=== PATIENT | female | born 1960 | race Two or more races ===

== ENCOUNTER 2016-06-05 | Inpatient (IN) | END 2017-06-04 23:59 | disposition still patient (30) | DRG 133 | DX: J96.10 Chronic respiratory failure, unspecified whether with hypoxia or hypercapnia (principal); G93.40 Encephalopathy, unspecified; G93.1 Anoxic brain damage, not elsewhere classified; I69.959 Hemiplegia and hemiparesis following unspecified cerebrovascular disease affecting unspecified side; Z93.0 Tracheostomy status; I69.922 Dysarthria following unspecified cerebrovascular disease; I69.991 Dysphagia following unspecified cerebrovascular disease; Z93.1 Gastrostomy status; K21.9 Gastro-esophageal reflux disease without esophagitis; K27.9 Peptic ulcer, site unspecified, unspecified as acute or chronic, without hemorrhage or perforation; Z90.89 Acquired absence of other organs; G47.00 Insomnia, unspecified; E78.5 Hyperlipidemia, unspecified ==

== ENCOUNTER → 2016-12-13 | Outpatient (CLI) | payer MEDICARE, OTHER ==
[~2016-12-13] MED LIST: ACET160O10 GT; BACL10TA GT; FAMO20TA8 GT; ISON300T4 GT; MENT113P3 TP; POLY15DR57 EACHEYE; PYRI50CA GT
== END | disposition home or self-care (01) ==
LOC: XRAY 09:56
PROVIDERS: ATTEND Internal Medicine Gastroenterology
DX: N20.0 Calculus of kidney (principal); J98.11 Atelectasis; R19.03 Right lower quadrant abdominal swelling, mass and lump; N28.82 Megaloureter; J98.6 Disorders of diaphragm; Z90.49 Acquired absence of other specified parts of digestive tract; Z93.1 Gastrostomy status
CPT/HCPCS: 74150

== ENCOUNTER 2017-06-05 | Inpatient (IN) | END 2018-06-04 11:59 | disposition other institution (70) | DRG 133 | DX: J96.11 Chronic respiratory failure with hypoxia (principal); G93.40 Encephalopathy, unspecified; A41.9 Sepsis, unspecified organism; G93.1 Anoxic brain damage, not elsewhere classified; J18.9 Pneumonia, unspecified organism; L89.154 Pressure ulcer of sacral region, stage 4; B37.0 Candidal stomatitis; D68.59 Other primary thrombophilia; Z93.0 Tracheostomy status; D69.6 Thrombocytopenia, unspecified; I69.959 Hemiplegia and hemiparesis following unspecified cerebrovascular disease affecting unspecified side; I69.922 Dysarthria following unspecified cerebrovascular disease; I69.991 Dysphagia following unspecified cerebrovascular disease; Z93.1 Gastrostomy status; K21.9 Gastro-esophageal reflux disease without esophagitis; K27.9 Peptic ulcer, site unspecified, unspecified as acute or chronic, without hemorrhage or perforation; Z90.89 Acquired absence of other organs; G47.00 Insomnia, unspecified; E78.5 Hyperlipidemia, unspecified; B96.20 Unspecified Escherichia coli [E. coli] as the cause of diseases classified elsewhere; E88.09 Other disorders of plasma-protein metabolism, not elsewhere classified; F09 Unspecified mental disorder due to known physiological condition; F32.9 Major depressive disorder, single episode, unspecified; B37.49 Other urogenital candidiasis; L03.311 Cellulitis of abdominal wall; N39.0 Urinary tract infection, site not specified; Z74.01 Bed confinement status; M46.28 Osteomyelitis of vertebra, sacral and sacrococcygeal region; Z79.2 Long term (current) use of antibiotics; Z86.14 Personal history of Methicillin resistant Staphylococcus aureus infection; Z90.49 Acquired absence of other specified parts of digestive tract; Z91.19 Patient's noncompliance with other medical treatment and regimen ==

== ENCOUNTER 2018-06-05 | Inpatient (IN) | END 2019-06-04 23:59 | disposition still patient (30) | DRG 981 | DX: J96.11 Chronic respiratory failure with hypoxia (principal); E43 Unspecified severe protein-calorie malnutrition; G82.50 Quadriplegia, unspecified; L89.154 Pressure ulcer of sacral region, stage 4; G93.40 Encephalopathy, unspecified; G93.1 Anoxic brain damage, not elsewhere classified; D68.59 Other primary thrombophilia; I69.959 Hemiplegia and hemiparesis following unspecified cerebrovascular disease affecting unspecified side; M46.28 Osteomyelitis of vertebra, sacral and sacrococcygeal region; E87.0 Hyperosmolality and hypernatremia; J98.11 Atelectasis; N13.6 Pyonephrosis; Z99.11 Dependence on respirator [ventilator] status; N39.0 Urinary tract infection, site not specified; Z16.19 Resistance to other specified beta lactam antibiotics; Z93.0 Tracheostomy status; D69.6 Thrombocytopenia, unspecified; E88.09 Other disorders of plasma-protein metabolism, not elsewhere classified; I69.922 Dysarthria following unspecified cerebrovascular disease; I69.991 Dysphagia following unspecified cerebrovascular disease; Z93.1 Gastrostomy status; K21.9 Gastro-esophageal reflux disease without esophagitis; K27.9 Peptic ulcer, site unspecified, unspecified as acute or chronic, without hemorrhage or perforation; Z90.89 Acquired absence of other organs; G47.00 Insomnia, unspecified; E78.5 Hyperlipidemia, unspecified; F09 Unspecified mental disorder due to known physiological condition; F32.9 Major depressive disorder, single episode, unspecified; Z74.01 Bed confinement status; Z79.2 Long term (current) use of antibiotics; Z86.14 Personal history of Methicillin resistant Staphylococcus aureus infection; Z90.49 Acquired absence of other specified parts of digestive tract; Z91.19 Patient's noncompliance with other medical treatment and regimen; K76.0 Fatty (change of) liver, not elsewhere classified; Z87.440 Personal history of urinary (tract) infections; Z79.899 Other long term (current) drug therapy; B96.89 Other specified bacterial agents as the cause of diseases classified elsewhere ==

== ENCOUNTER 2019-11-12 10:40 | Outpatient (CLI) | payer MEDICARE, OTHER ==
[~2019-11-12 10:40] MED LIST changes: +ISON300T19 GT; -ISON300T4 GT; +POLY15DR31 EACHEYE; -POLY15DR57 EACHEYE
== END 2019-11-12 23:59 | disposition other institution (70) ==
LOC: CT 10:40
PROVIDERS: ATTEND Internal Medicine Pulmonary Disease
DX: N39.0 Urinary tract infection, site not specified (principal); N95.2 Postmenopausal atrophic vaginitis; J98.11 Atelectasis; N20.0 Calculus of kidney; N26.1 Atrophy of kidney (terminal); I70.0 Atherosclerosis of aorta; D25.9 Leiomyoma of uterus, unspecified; M47.816 Spondylosis without myelopathy or radiculopathy, lumbar region; Z93.1 Gastrostomy status

== ENCOUNTER 2020-01-25 06:15 | Day surgery (SDC) | payer MEDICARE, OTHER ==
[2020-01-25] MEDS ORDERED: SEVOFLURANE 250 ML BOTTLE IH ONE (06:16)
[2020-01-25] MEDS ORDERED: CEFAZOLIN 1 G VIAL MC ONE (06:16)
[2020-01-25] MEDS ORDERED: LIDOCAINE-MPF 2% 5 ML VIAL MC ONE (06:16)
[2020-01-25] MEDS ORDERED: PROPOFOL 200 MG/20 ML BOTTLE IV ONE (06:16)
== END 2020-01-25 11:00 ==
LOC: DS 06:15
PROVIDERS: ATTEND Internal Medicine Gastroenterology
DX: R13.10 Dysphagia, unspecified (principal); K29.70 Gastritis, unspecified, without bleeding; F32.9 Major depressive disorder, single episode, unspecified; Z87.440 Personal history of urinary (tract) infections; Z79.899 Other long term (current) drug therapy; Z88.1 Allergy status to other antibiotic agents; Z88.8 Allergy status to other drugs, medicaments and biological substances; Z98.890 Other specified postprocedural states
CPT/HCPCS: 43246; J0690; J3490; 43761; A4217

== ENCOUNTER → 2020-06-04 23:59 | Inpatient (IN) | payer MEDICARE, OTHER ==
[2019-06-06 10:13] VITALS: BP 116/50
[2019-06-06] MEDS: JEVITY 1.2 1000 ML LIQUID GT PRN (14:19)
[2019-06-06] MEDS: PIPERACILLIN SODIUM/TAZOBACTAM 3.375 G in IV DEXTROSE 5% 50 ML IV SCH ×2 (16:49→23:46)
[2019-06-06] MEDS: BACLOFEN 10 MG TABLET GT SCH (17:53)
[2019-06-06] MEDS: ARGININE/GLUTAMINE/CALCIUM BMB 1 EACH POWD.PACK GT SCH (17:53)
[2019-06-06] MEDS: VANCOMYCIN IV 750 MG in IV DEXTROSE 5% 250 ML IV SCH (18:33)
[2019-06-06 19:58] VITALS: BP 114/54
[2019-06-06] MEDS: HYDROGEN PEROXIDE 3% 118 ML BOTTLE TP SCH (20:42)
[2019-06-06] MEDS: SIMVASTATIN 10 MG TABLET GT SCH (21:00)
[2019-06-06] MEDS: MULTIVIT, IRON, MIN NO. 8, FA TABLET GT SCH (21:00)
[2019-06-06] MEDS: COD LIVER OIL/ZINC OXIDE OINT 113 GM TUBE TP SCH (21:00)
[2019-06-06] MEDS: ACIDOPHILUS/BULGARICUS CHEW TAB GT SCH (21:00)
[2019-06-06] MEDS: ASCORBIC ACID 500 MG TABLET GT SCH (21:00)
[2019-06-06] MEDS: TEMAZEPAM 7.5 MG CAPSULE GT PRN (22:23)
[2019-06-06] MEDS: PROTEIN SUPPLEMENT (PROSTAT) 30 ML LIQUID GT SCH (22:23)
[2019-06-07] MEDS: BACLOFEN 10 MG TABLET GT SCH ×5 (00:45→23:08)
[2019-06-07] MEDS: PROTEIN SUPPLEMENT (PROSTAT) 30 ML LIQUID GT SCH ×3 (05:54→21:20)
[2019-06-07] MEDS: OMEPRAZOLE 20 MG CAPSULE.DR GT SCH (05:54)
[2019-06-07] MEDS: ARGININE/GLUTAMINE/CALCIUM BMB 1 EACH POWD.PACK GT SCH ×2 (05:54→17:19)
[2019-06-07] MEDS: VANCOMYCIN IV 750 MG in IV DEXTROSE 5% 250 ML IV SCH ×2 (06:08→17:43)
[2019-06-07] MEDS: PIPERACILLIN SODIUM/TAZOBACTAM 3.375 G in IV DEXTROSE 5% 50 ML IV SCH ×2 (07:42→16:25)
[2019-06-07] MEDS: ACETAMINOPHEN 650 MG/20.3 ML LIQUID UDC GT SCH (08:21)
[2019-06-07] MEDS: ACIDOPHILUS/BULGARICUS CHEW TAB GT SCH ×2 (08:21→21:20)
[2019-06-07] MEDS: SERTRALINE 25 MG GT SCH (08:22)
[2019-06-07] MEDS: COD LIVER OIL/ZINC OXIDE OINT 113 GM TUBE TP SCH ×2 (08:22→21:20)
[2019-06-07] MEDS: THERAHONEY GEL 1.5 OZ TUBE TOP SCH (08:22)
[2019-06-07] MEDS: HYDROGEN PEROXIDE 3% 118 ML BOTTLE TP SCH ×2 (09:56→21:35)
[2019-06-07 11:15] VITALS: BP 102/51
[2019-06-07] MEDS: JEVITY 1.2 1000 ML LIQUID GT PRN (16:17)
--- NOTE | 2019-06-07 18:11 | NUR ---
ON IV ATB THERAPY,NO ADVERSE REACTION NOTED.
[2019-06-07 18:19] VITALS: BP 102/51
[2019-06-07 20:14] VITALS: BP 108/45
[2019-06-07] MEDS: MULTIVIT, IRON, MIN NO. 8, FA TABLET GT SCH (21:20)
[2019-06-07] MEDS: TEMAZEPAM 7.5 MG CAPSULE GT PRN (21:20)
[2019-06-07] MEDS: ASCORBIC ACID 500 MG TABLET GT SCH (21:20)
[2019-06-07] MEDS: SIMVASTATIN 10 MG TABLET GT SCH (21:20)
[2019-06-08] MEDS: PIPERACILLIN SODIUM/TAZOBACTAM 3.375 G in IV DEXTROSE 5% 50 ML IV SCH ×3 (00:02→16:45)
--- NOTE | 2019-06-08 05:17 | NUR ---
continue on vancomycin iv and zosyn iv for fever, no adverse reaction noted, afebrile, no respiratory distress noted.
[2019-06-08] MEDS: BACLOFEN 10 MG TABLET GT SCH ×4 (05:35→23:27)
[2019-06-08] MEDS: PROTEIN SUPPLEMENT (PROSTAT) 30 ML LIQUID GT SCH ×3 (05:35→21:10)
[2019-06-08] MEDS: OMEPRAZOLE 20 MG CAPSULE.DR GT SCH (05:35)
[2019-06-08] MEDS: ARGININE/GLUTAMINE/CALCIUM BMB 1 EACH POWD.PACK GT SCH ×2 (05:35→17:48)
[2019-06-08] MEDS: VANCOMYCIN IV 750 MG in IV DEXTROSE 5% 250 ML IV SCH ×2 (05:47→17:02)
[2019-06-08] MEDS: ACETAMINOPHEN 650 MG/20.3 ML LIQUID UDC GT SCH (09:00)
[2019-06-08] MEDS: ACIDOPHILUS/BULGARICUS CHEW TAB GT SCH ×2 (09:00→21:10)
[2019-06-08] MEDS: SERTRALINE 25 MG GT SCH (09:00)
[2019-06-08] MEDS: THERAHONEY GEL 1.5 OZ TUBE TOP SCH (10:00)
[2019-06-08] MEDS: COD LIVER OIL/ZINC OXIDE OINT 113 GM TUBE TP SCH ×2 (10:00→21:10)
[2019-06-08] MEDS: HYDROGEN PEROXIDE 3% 118 ML BOTTLE TP SCH ×2 (10:20→21:57)
[2019-06-08 11:08] VITALS: BP 101/51
[2019-06-08] MEDS: JEVITY 1.2 1000 ML LIQUID GT PRN (16:30)
--- NOTE | 2019-06-08 19:47 | NUR ---
Continue on ivatb vancomycin and Zosyn,no adverse reaction noted,iv site on the r hand intact,no s/s of infiltration noted,Ivatb will be given to complete 5 days per Judeen MARKETING DATA SPECIALIST.
[2019-06-08 20:15] VITALS: BP 117/65
[2019-06-08] MEDS: SIMVASTATIN 10 MG TABLET GT SCH (21:10)
[2019-06-08] MEDS: ASCORBIC ACID 500 MG TABLET GT SCH (21:10)
[2019-06-08] MEDS: MULTIVIT, IRON, MIN NO. 8, FA TABLET GT SCH (21:10)
--- NOTE | 2019-06-08 22:35 | NUR ---
mark jacobo n.p. was in, seen pt, no new orders.
[2019-06-09] MEDS: BACLOFEN 10 MG TABLET GT SCH ×4 (05:45→23:17)
[2019-06-09] MEDS: ARGININE/GLUTAMINE/CALCIUM BMB 1 EACH POWD.PACK GT SCH ×2 (05:45→17:16)
[2019-06-09] MEDS: PROTEIN SUPPLEMENT (PROSTAT) 30 ML LIQUID GT SCH ×3 (05:45→21:15)
[2019-06-09] MEDS: OMEPRAZOLE 20 MG CAPSULE.DR GT SCH (05:45)
[2019-06-09] MEDS: HYDROGEN PEROXIDE 3% 118 ML BOTTLE TP SCH ×2 (07:50→21:15)
[2019-06-09 08:02] VITALS: BP 114/50
[2019-06-09] MEDS: THERAHONEY GEL 1.5 OZ TUBE TOP SCH (09:11)
[2019-06-09] MEDS: COD LIVER OIL/ZINC OXIDE OINT 113 GM TUBE TP SCH ×2 (09:11→21:15)
[2019-06-09] MEDS: SERTRALINE 25 MG GT SCH (09:11)
[2019-06-09] MEDS: ACIDOPHILUS/BULGARICUS CHEW TAB GT SCH ×2 (09:11→21:15)
[2019-06-09] MEDS: ACETAMINOPHEN 650 MG/20.3 ML LIQUID UDC GT SCH (09:11)
--- NOTE | 2019-06-09 12:18 | NUR ---
Seen and examined by DR Barahona with no new orders noted.
[2019-06-09 20:25] VITALS: BP 107/55
[2019-06-09] MEDS: SIMVASTATIN 10 MG TABLET GT SCH (21:15)
[2019-06-09] MEDS: ASCORBIC ACID 500 MG TABLET GT SCH (21:15)
[2019-06-09] MEDS: MULTIVIT, IRON, MIN NO. 8, FA TABLET GT SCH (21:15)
--- NOTE | 2019-06-09 21:38 | NUR ---
S/p IV Vancomycin and Zosyn IV for UTI, no adverse reactions noted, afebrile, fluids given as ordered, voiding freely to yellow urine output, good sukumar care rendered, kept clean and comfortable.
[2019-06-10] MEDS: BACLOFEN 10 MG TABLET GT SCH ×3 (05:39→17:49)
[2019-06-10] MEDS: ARGININE/GLUTAMINE/CALCIUM BMB 1 EACH POWD.PACK GT SCH ×2 (05:39→17:49)
[2019-06-10] MEDS: PROTEIN SUPPLEMENT (PROSTAT) 30 ML LIQUID GT SCH ×3 (05:39→21:29)
[2019-06-10] MEDS: OMEPRAZOLE 20 MG CAPSULE.DR GT SCH (05:39)
[2019-06-10 08:00] VITALS: BP 106/66
[2019-06-10] MEDS: ACIDOPHILUS/BULGARICUS CHEW TAB GT SCH ×2 (08:30→21:23)
[2019-06-10] MEDS: ACETAMINOPHEN 650 MG/20.3 ML LIQUID UDC GT SCH (08:30)
[2019-06-10] MEDS: COD LIVER OIL/ZINC OXIDE OINT 113 GM TUBE TP SCH ×2 (08:30→21:23)
[2019-06-10] MEDS: SERTRALINE 25 MG GT SCH (08:30)
[2019-06-10] MEDS: THERAHONEY GEL 1.5 OZ TUBE TOP SCH (08:30)
[2019-06-10] MEDS: HYDROGEN PEROXIDE 3% 118 ML BOTTLE TP SCH ×2 (09:00→21:15)
--- NOTE | 2019-06-10 09:23 | NUR ---
SW emailed patient's daughter Ludmila asking to schedule a time to meet in order to obtain signatures on patient's annual admission paperwork for the new patient chart. SW will wait to hear back from Ludmila, and will follow-up if necessary.
[2019-06-10 20:01] VITALS: BP 108/52
[2019-06-10] MEDS: ASCORBIC ACID 500 MG TABLET GT SCH (21:23)
[2019-06-10] MEDS: SIMVASTATIN 10 MG TABLET GT SCH (21:23)
[2019-06-10] MEDS: MULTIVIT, IRON, MIN NO. 8, FA TABLET GT SCH (21:23)
[2019-06-11] MEDS: BACLOFEN 10 MG TABLET GT SCH ×4 (00:34→17:58)
[2019-06-11] MEDS: ARGININE/GLUTAMINE/CALCIUM BMB 1 EACH POWD.PACK GT SCH ×2 (05:48→17:58)
[2019-06-11] MEDS: PROTEIN SUPPLEMENT (PROSTAT) 30 ML LIQUID GT SCH ×3 (05:48→21:54)
[2019-06-11] MEDS: OMEPRAZOLE 20 MG CAPSULE.DR GT SCH (05:48)
[2019-06-11 08:00] VITALS: BP 101/78
[2019-06-11] MEDS: ACETAMINOPHEN 650 MG/20.3 ML LIQUID UDC GT SCH (08:30)
[2019-06-11] MEDS: THERAHONEY GEL 1.5 OZ TUBE TOP SCH (09:00)
[2019-06-11] MEDS: ACIDOPHILUS/BULGARICUS CHEW TAB GT SCH ×2 (09:00→21:52)
[2019-06-11] MEDS: HYDROGEN PEROXIDE 3% 118 ML BOTTLE TP SCH ×2 (09:00→21:24)
[2019-06-11] MEDS: SERTRALINE 25 MG GT SCH (09:00)
[2019-06-11] MEDS: COD LIVER OIL/ZINC OXIDE OINT 113 GM TUBE TP SCH ×2 (09:00→21:54)
[2019-06-11 19:50] VITALS: BP 104/50
[2019-06-11] MEDS: ASCORBIC ACID 500 MG TABLET GT SCH (21:52)
[2019-06-11] MEDS: MULTIVIT, IRON, MIN NO. 8, FA TABLET GT SCH (21:52)
[2019-06-11] MEDS: SIMVASTATIN 10 MG TABLET GT SCH (21:54)
[2019-06-11] MEDS: TEMAZEPAM 7.5 MG CAPSULE GT PRN (21:54)
[2019-06-12] MEDS: PROTEIN SUPPLEMENT (PROSTAT) 30 ML LIQUID GT SCH ×3 (06:12→22:23)
[2019-06-12] MEDS: OMEPRAZOLE 20 MG CAPSULE.DR GT SCH (06:12)
[2019-06-12] MEDS: ARGININE/GLUTAMINE/CALCIUM BMB 1 EACH POWD.PACK GT SCH ×2 (06:12→17:12)
[2019-06-12] MEDS: BACLOFEN 10 MG TABLET GT SCH ×5 (06:12→23:12)
[2019-06-12 08:00] VITALS: BP 137/51
[2019-06-12] MEDS: THERAHONEY GEL 1.5 OZ TUBE TOP SCH (08:50)
[2019-06-12] MEDS: ACIDOPHILUS/BULGARICUS CHEW TAB GT SCH ×2 (08:50→21:00)
[2019-06-12] MEDS: SERTRALINE 25 MG GT SCH (08:50)
[2019-06-12] MEDS: ACETAMINOPHEN 650 MG/20.3 ML LIQUID UDC GT SCH (08:50)
[2019-06-12] MEDS: COD LIVER OIL/ZINC OXIDE OINT 113 GM TUBE TP SCH ×2 (08:51→21:00)
--- NOTE | 2019-06-12 09:00 | NUR ---
Seen and examined by Dionna Hermosillo ,no new orders noted.
--- NOTE | 2019-06-12 09:00 | NUR ---
Seen and examined by Dionna Hermosillo,no new orders noted.
[2019-06-12] MEDS: HYDROGEN PEROXIDE 3% 118 ML BOTTLE TP SCH ×2 (09:20→21:01)
--- NOTE | 2019-06-12 16:12 | NUR ---
Patient seen by Dr. Rodriguez today for her annual dental exam. See dental notes for details.
[2019-06-12] MEDS: JEVITY 1.2 1000 ML LIQUID GT PRN (16:16)
[2019-06-12 19:59] VITALS: BP 105/46
[2019-06-12] MEDS: ASCORBIC ACID 500 MG TABLET GT SCH (21:00)
[2019-06-12] MEDS: SIMVASTATIN 10 MG TABLET GT SCH (21:00)
[2019-06-12] MEDS: MULTIVIT, IRON, MIN NO. 8, FA TABLET GT SCH (21:00)
[2019-06-13] MEDS: PROTEIN SUPPLEMENT (PROSTAT) 30 ML LIQUID GT SCH ×3 (05:59→21:49)
[2019-06-13] MEDS: BACLOFEN 10 MG TABLET GT SCH ×3 (05:59→17:33)
[2019-06-13] MEDS: OMEPRAZOLE 20 MG CAPSULE.DR GT SCH (05:59)
[2019-06-13] MEDS: ARGININE/GLUTAMINE/CALCIUM BMB 1 EACH POWD.PACK GT SCH ×2 (05:59→17:33)
[2019-06-13 08:03] VITALS: BP 117/47
[2019-06-13] MEDS: THERAHONEY GEL 1.5 OZ TUBE TOP SCH (08:53)
[2019-06-13] MEDS: SERTRALINE 25 MG GT SCH (08:53)
[2019-06-13] MEDS: ACETAMINOPHEN 650 MG/20.3 ML LIQUID UDC GT SCH (08:53)
[2019-06-13] MEDS: COD LIVER OIL/ZINC OXIDE OINT 113 GM TUBE TP SCH ×2 (08:53→21:49)
[2019-06-13] MEDS: ACIDOPHILUS/BULGARICUS CHEW TAB GT SCH ×2 (08:53→21:48)
[2019-06-13] MEDS: HYDROGEN PEROXIDE 3% 118 ML BOTTLE TP SCH ×2 (09:00→21:00)
--- NOTE | 2019-06-13 11:52 | NUR ---
PT. WAS SEEN AND EXAMINED BY RAKEL CASTAÑEDA AND WITH NEW ORDER CARRIED OUT.
--- NOTE | 2019-06-13 14:00 | NUR ---
SEEN AND EXAMINED BY JOSE CarrilloI[employer]) AND WITH RAINEO.
--- NOTE | 2019-06-13 17:00 | NUR ---
DOROTHY called Dr. Rodriguez's office [phone] and spoke with Anitha. Patient's annual dental cleaning is scheduled for 07/17/2019. Patient informed by this DOROTHY.
[2019-06-13] MEDS: JEVITY 1.2 1000 ML LIQUID GT PRN (17:34)
[2019-06-13 20:33] VITALS: BP 122/55
[2019-06-13] MEDS: ASCORBIC ACID 500 MG TABLET GT SCH (21:48)
[2019-06-13] MEDS: SIMVASTATIN 10 MG TABLET GT SCH (21:48)
[2019-06-13] MEDS: MULTIVIT, IRON, MIN NO. 8, FA TABLET GT SCH (21:48)
[2019-06-14] MEDS: OMEPRAZOLE 20 MG CAPSULE.DR GT SCH (05:56)
[2019-06-14] MEDS: ARGININE/GLUTAMINE/CALCIUM BMB 1 EACH POWD.PACK GT SCH ×2 (05:56→17:02)
[2019-06-14] MEDS: BACLOFEN 10 MG TABLET GT SCH ×5 (05:56→23:49)
[2019-06-14] MEDS: PROTEIN SUPPLEMENT (PROSTAT) 30 ML LIQUID GT SCH ×3 (05:56→21:26)
[2019-06-14 08:04] VITALS: BP 113/54
[2019-06-14] MEDS: COD LIVER OIL/ZINC OXIDE OINT 113 GM TUBE TP SCH ×2 (08:37→21:26)
[2019-06-14] MEDS: SERTRALINE 25 MG GT SCH (08:37)
[2019-06-14] MEDS: THERAHONEY GEL 1.5 OZ TUBE TOP SCH (08:37)
[2019-06-14] MEDS: ACIDOPHILUS/BULGARICUS CHEW TAB GT SCH ×2 (08:37→21:25)
[2019-06-14] MEDS: ACETAMINOPHEN 650 MG/20.3 ML LIQUID UDC GT SCH (08:37)
[2019-06-14] MEDS: HYDROGEN PEROXIDE 3% 118 ML BOTTLE TP SCH ×2 (09:00→21:18)
--- NOTE | 2019-06-14 09:06 | NUR ---
SW followed up with patient's daughter Ludmila regarding the email that this SW sent Ludmila on 06/10/2019, asking to schedule a day/time to meet in order to review and sign patient's annual admission paperwork. SW stated in this second email the importance of scheduling this day/time and the fact that it is time-sensitive. SW to follow-up again if SW does not hear back from Ludmila.
--- NOTE | 2019-06-14 13:47 | NUR ---
NEW ORDER CARRIED OUT FROM DR. CALDWELL FOR ELIJAH LOMAX FOR W/CH RECOMMENDED BY PT.
[2019-06-14] MEDS: JEVITY 1.2 1000 ML LIQUID GT PRN (17:03)
[2019-06-14 20:05] VITALS: BP 105/60
[2019-06-14] MEDS: ASCORBIC ACID 500 MG TABLET GT SCH (21:25)
[2019-06-14] MEDS: MULTIVIT, IRON, MIN NO. 8, FA TABLET GT SCH (21:25)
[2019-06-14] MEDS: SIMVASTATIN 10 MG TABLET GT SCH (21:26)
[2019-06-15] MEDS: BACLOFEN 10 MG TABLET GT SCH ×3 (05:58→17:28)
[2019-06-15] MEDS: PROTEIN SUPPLEMENT (PROSTAT) 30 ML LIQUID GT SCH ×3 (05:58→21:59)
[2019-06-15] MEDS: ARGININE/GLUTAMINE/CALCIUM BMB 1 EACH POWD.PACK GT SCH ×2 (05:58→17:28)
[2019-06-15] MEDS: OMEPRAZOLE 20 MG CAPSULE.DR GT SCH (05:58)
[2019-06-15 08:00] VITALS: BP 107/49
[2019-06-15] MEDS: THERAHONEY GEL 1.5 OZ TUBE TOP SCH (08:45)
[2019-06-15] MEDS: COD LIVER OIL/ZINC OXIDE OINT 113 GM TUBE TP SCH ×2 (08:45→21:59)
[2019-06-15] MEDS: SERTRALINE 25 MG GT SCH (08:45)
[2019-06-15] MEDS: ACETAMINOPHEN 650 MG/20.3 ML LIQUID UDC GT SCH (08:45)
[2019-06-15] MEDS: ACIDOPHILUS/BULGARICUS CHEW TAB GT SCH ×2 (08:45→21:59)
[2019-06-15] MEDS: HYDROGEN PEROXIDE 3% 118 ML BOTTLE TP SCH ×2 (09:00→20:54)
--- NOTE | 2019-06-15 09:40 | NUR ---
SEEN BY DR. JAVI RASHID.
--- NOTE | 2019-06-15 10:00 | NUR ---
SEEN BY ALLEN MATIAS N.P. AND WITH RAINEO.
[2019-06-15] MEDS: JEVITY 1.2 1000 ML LIQUID GT PRN (17:28)
[2019-06-15] MEDS: ASCORBIC ACID 500 MG TABLET GT SCH (21:59)
[2019-06-15] MEDS: MULTIVIT, IRON, MIN NO. 8, FA TABLET GT SCH (21:59)
[2019-06-15] MEDS: SIMVASTATIN 10 MG TABLET GT SCH (21:59)
[2019-06-15] MEDS: TEMAZEPAM 7.5 MG CAPSULE GT PRN (22:00)
[2019-06-16] MEDS: BACLOFEN 10 MG TABLET GT SCH ×4 (00:16→17:07)
[2019-06-16] MEDS: PROTEIN SUPPLEMENT (PROSTAT) 30 ML LIQUID GT SCH ×3 (06:06→21:20)
[2019-06-16] MEDS: OMEPRAZOLE 20 MG CAPSULE.DR GT SCH (06:06)
[2019-06-16] MEDS: ARGININE/GLUTAMINE/CALCIUM BMB 1 EACH POWD.PACK GT SCH ×2 (06:06→17:07)
[2019-06-16 08:00] VITALS: BP 120/72
[2019-06-16] MEDS: ACIDOPHILUS/BULGARICUS CHEW TAB GT SCH ×2 (08:33→21:19)
[2019-06-16] MEDS: SERTRALINE 25 MG GT SCH (08:33)
[2019-06-16] MEDS: ACETAMINOPHEN 650 MG/20.3 ML LIQUID UDC GT SCH (08:33)
[2019-06-16] MEDS: THERAHONEY GEL 1.5 OZ TUBE TOP SCH (08:33)
[2019-06-16] MEDS: COD LIVER OIL/ZINC OXIDE OINT 113 GM TUBE TP SCH ×2 (08:33→21:20)
[2019-06-16] MEDS: HYDROGEN PEROXIDE 3% 118 ML BOTTLE TP SCH ×2 (09:00→20:52)
[2019-06-16 19:52] VITALS: BP 101/69
[2019-06-16] MEDS: MULTIVIT, IRON, MIN NO. 8, FA TABLET GT SCH (21:19)
[2019-06-16] MEDS: SIMVASTATIN 10 MG TABLET GT SCH (21:19)
[2019-06-16] MEDS: ASCORBIC ACID 500 MG TABLET GT SCH (21:19)
[2019-06-16] MEDS: TEMAZEPAM 7.5 MG CAPSULE GT PRN (21:22)
[2019-06-17] MEDS: BACLOFEN 10 MG TABLET GT SCH ×5 (00:25→23:03)
[2019-06-17] MEDS: OMEPRAZOLE 20 MG CAPSULE.DR GT SCH (05:06)
[2019-06-17] MEDS: PROTEIN SUPPLEMENT (PROSTAT) 30 ML LIQUID GT SCH ×3 (05:06→21:47)
[2019-06-17] MEDS: ARGININE/GLUTAMINE/CALCIUM BMB 1 EACH POWD.PACK GT SCH ×2 (05:06→17:17)
[2019-06-17 08:00] VITALS: BP 110/65
[2019-06-17] MEDS: ACIDOPHILUS/BULGARICUS CHEW TAB GT SCH ×2 (08:54→21:46)
[2019-06-17] MEDS: ACETAMINOPHEN 650 MG/20.3 ML LIQUID UDC GT SCH (08:54)
[2019-06-17] MEDS: SERTRALINE 25 MG GT SCH (08:54)
[2019-06-17] MEDS: HYDROGEN PEROXIDE 3% 118 ML BOTTLE TP SCH ×2 (09:00→20:16)
[2019-06-17] MEDS: COD LIVER OIL/ZINC OXIDE OINT 113 GM TUBE TP SCH ×2 (09:00→21:46)
[2019-06-17] MEDS: THERAHONEY GEL 1.5 OZ TUBE TOP SCH (09:35)
--- NOTE | 2019-06-17 13:00 | NUR ---
SEEN BY AMY Lorenzo AND WITH NNO.
--- NOTE | 2019-06-17 15:01 | NUR ---
ELIJAH marquez ordered from [facility], spoke with Panchito [phone]. Waiting to hear back from Panchito regarding delivery date.
--- NOTE | 2019-06-17 15:40 | NUR ---
SW notified patient's daughter Ludmila via email that the next IDT meeting for the patient has been scheduled for 06/25/2019 at 11am.
[2019-06-17] MEDS: JEVITY 1.2 1000 ML LIQUID GT PRN (17:19)
[2019-06-17 20:19] VITALS: BP 111/58
[2019-06-17] MEDS: ASCORBIC ACID 500 MG TABLET GT SCH (21:46)
[2019-06-17] MEDS: SIMVASTATIN 10 MG TABLET GT SCH (21:46)
[2019-06-17] MEDS: MULTIVIT, IRON, MIN NO. 8, FA TABLET GT SCH (21:46)
[2019-06-18] MEDS: ARGININE/GLUTAMINE/CALCIUM BMB 1 EACH POWD.PACK GT SCH ×2 (05:32→17:09)
[2019-06-18] MEDS: BACLOFEN 10 MG TABLET GT SCH ×3 (05:32→17:09)
[2019-06-18] MEDS: PROTEIN SUPPLEMENT (PROSTAT) 30 ML LIQUID GT SCH ×3 (05:34→22:03)
[2019-06-18] MEDS: OMEPRAZOLE 20 MG CAPSULE.DR GT SCH (05:34)
[2019-06-18 08:00] VITALS: BP 104/50
[2019-06-18] MEDS: HYDROGEN PEROXIDE 3% 118 ML BOTTLE TP SCH ×2 (09:00→20:56)
[2019-06-18] MEDS: ACETAMINOPHEN 650 MG/20.3 ML LIQUID UDC GT SCH (09:00)
[2019-06-18] MEDS: ACIDOPHILUS/BULGARICUS CHEW TAB GT SCH ×2 (09:51→21:00)
[2019-06-18] MEDS: THERAHONEY GEL 1.5 OZ TUBE TOP SCH (09:51)
[2019-06-18] MEDS: COD LIVER OIL/ZINC OXIDE OINT 113 GM TUBE TP SCH ×2 (09:51→21:00)
[2019-06-18] MEDS: SERTRALINE 25 MG GT SCH (09:51)
--- NOTE | 2019-06-18 14:49 | NUR ---
Seen and examined by Dionna Hermosillo,no new orders noted.
[2019-06-18 19:45] VITALS: BP 107/50
[2019-06-18] MEDS: TEMAZEPAM 7.5 MG CAPSULE GT PRN (21:00)
[2019-06-18] MEDS: ASCORBIC ACID 500 MG TABLET GT SCH (21:00)
[2019-06-18] MEDS: SIMVASTATIN 10 MG TABLET GT SCH (21:00)
[2019-06-18] MEDS: MULTIVIT, IRON, MIN NO. 8, FA TABLET GT SCH (21:00)
[2019-06-19] MEDS: BACLOFEN 10 MG TABLET GT SCH ×4 (00:29→18:23)
[2019-06-19] MEDS: OMEPRAZOLE 20 MG CAPSULE.DR GT SCH (06:06)
[2019-06-19] MEDS: ARGININE/GLUTAMINE/CALCIUM BMB 1 EACH POWD.PACK GT SCH ×2 (06:06→18:23)
[2019-06-19] MEDS: PROTEIN SUPPLEMENT (PROSTAT) 30 ML LIQUID GT SCH ×3 (06:06→21:38)
[2019-06-19] MEDS: JEVITY 1.2 1000 ML LIQUID GT PRN (07:08)
[2019-06-19 07:54] VITALS: BP 119/40
[2019-06-19] MEDS: THERAHONEY GEL 1.5 OZ TUBE TOP SCH (08:48)
[2019-06-19] MEDS: COD LIVER OIL/ZINC OXIDE OINT 113 GM TUBE TP SCH ×2 (08:48→21:38)
[2019-06-19] MEDS: SERTRALINE 25 MG GT SCH (08:48)
[2019-06-19] MEDS: ACETAMINOPHEN 650 MG/20.3 ML LIQUID UDC GT SCH (08:48)
[2019-06-19] MEDS: ACIDOPHILUS/BULGARICUS CHEW TAB GT SCH ×2 (08:48→21:38)
[2019-06-19] MEDS: HYDROGEN PEROXIDE 3% 118 ML BOTTLE TP SCH ×2 (08:56→21:09)
[2019-06-19 20:08] VITALS: BP 96/52
[2019-06-19] MEDS: ASCORBIC ACID 500 MG TABLET GT SCH (21:38)
[2019-06-19] MEDS: SIMVASTATIN 10 MG TABLET GT SCH (21:38)
[2019-06-19] MEDS: MULTIVIT, IRON, MIN NO. 8, FA TABLET GT SCH (21:38)
[2019-06-20] MEDS: BACLOFEN 10 MG TABLET GT SCH ×4 (00:28→17:27)
[2019-06-20] MEDS: OMEPRAZOLE 20 MG CAPSULE.DR GT SCH (05:11)
[2019-06-20] MEDS: ARGININE/GLUTAMINE/CALCIUM BMB 1 EACH POWD.PACK GT SCH ×2 (05:11→17:27)
[2019-06-20] MEDS: PROTEIN SUPPLEMENT (PROSTAT) 30 ML LIQUID GT SCH ×3 (05:11→22:04)
[2019-06-20 08:00] VITALS: BP 99/62
[2019-06-20] MEDS: THERAHONEY GEL 1.5 OZ TUBE TOP SCH (08:02)
[2019-06-20] MEDS: SERTRALINE 25 MG GT SCH (08:02)
[2019-06-20] MEDS: ACETAMINOPHEN 650 MG/20.3 ML LIQUID UDC GT SCH (08:02)
[2019-06-20] MEDS: COD LIVER OIL/ZINC OXIDE OINT 113 GM TUBE TP SCH ×2 (08:02→20:21)
[2019-06-20] MEDS: ACIDOPHILUS/BULGARICUS CHEW TAB GT SCH ×2 (08:02→20:19)
[2019-06-20] MEDS: HYDROGEN PEROXIDE 3% 118 ML BOTTLE TP SCH ×2 (09:40→21:29)
[2019-06-20] MEDS: JEVITY 1.2 1000 ML LIQUID GT PRN (10:51)
--- NOTE | 2019-06-20 11:08 | NUR ---
DOROTHY returned a voicemail message from Adry at [facility], . An appointment was scheduled for 06/21/2019 at 10:30am, for vendor Panchito to come to the hospital to deliver patient's cushion. PT Jenniffer informed.
[2019-06-20 20:18] VITALS: BP 106/50
[2019-06-20] MEDS: MULTIVIT, IRON, MIN NO. 8, FA TABLET GT SCH (20:19)
[2019-06-20] MEDS: ASCORBIC ACID 500 MG TABLET GT SCH (20:19)
[2019-06-20] MEDS: SIMVASTATIN 10 MG TABLET GT SCH (20:20)
[2019-06-20] MEDS: TEMAZEPAM 7.5 MG CAPSULE GT PRN (22:07)
[2019-06-21] MEDS: BACLOFEN 10 MG TABLET GT SCH ×4 (00:28→17:07)
[2019-06-21] MEDS: PROTEIN SUPPLEMENT (PROSTAT) 30 ML LIQUID GT SCH ×3 (05:38→22:24)
[2019-06-21] MEDS: ARGININE/GLUTAMINE/CALCIUM BMB 1 EACH POWD.PACK GT SCH ×2 (05:38→17:07)
[2019-06-21] MEDS: OMEPRAZOLE 20 MG CAPSULE.DR GT SCH (05:38)
[2019-06-21 08:00] VITALS: BP 114/62
[2019-06-21] MEDS: THERAHONEY GEL 1.5 OZ TUBE TOP SCH (09:04)
[2019-06-21] MEDS: SERTRALINE 25 MG GT SCH (09:04)
[2019-06-21] MEDS: COD LIVER OIL/ZINC OXIDE OINT 113 GM TUBE TP SCH ×2 (09:04→20:31)
[2019-06-21] MEDS: ACETAMINOPHEN 650 MG/20.3 ML LIQUID UDC GT SCH (09:04)
[2019-06-21] MEDS: ACIDOPHILUS/BULGARICUS CHEW TAB GT SCH ×2 (09:04→20:30)
[2019-06-21] MEDS: HYDROGEN PEROXIDE 3% 118 ML BOTTLE TP SCH ×2 (09:50→21:26)
--- NOTE | 2019-06-21 11:04 | NUR ---
10:30am: Panchito from [facility] [phone] delivered patient's ROHO cushion. SW escorted Panchito to the wheelchair room, where Panchito was able to set up the ROHO cushion on patient's wheelchair. Previous cushion placed in the ROHO cushion box and stored in patient's room. PT Jenniffer also notified who met with Panchito regarding the ROHO cushion. Patient informed of her new cushion, and patients nodded her head up and down in agreement for the new cushion.
[2019-06-21] MEDS: JEVITY 1.2 1000 ML LIQUID GT PRN (11:49)
[2019-06-21] MEDS: ASCORBIC ACID 500 MG TABLET GT SCH (20:31)
[2019-06-21] MEDS: SIMVASTATIN 10 MG TABLET GT SCH (20:31)
[2019-06-21] MEDS: MULTIVIT, IRON, MIN NO. 8, FA TABLET GT SCH (20:31)
[2019-06-21 20:48] VITALS: BP 108/63
[2019-06-21] MEDS: TEMAZEPAM 7.5 MG CAPSULE GT PRN (22:25)
[2019-06-22] MEDS: ARGININE/GLUTAMINE/CALCIUM BMB 1 EACH POWD.PACK GT SCH ×2 (05:15→17:36)
[2019-06-22] MEDS: BACLOFEN 10 MG TABLET GT SCH ×4 (05:15→17:36)
[2019-06-22] MEDS: PROTEIN SUPPLEMENT (PROSTAT) 30 ML LIQUID GT SCH ×3 (05:15→21:23)
[2019-06-22] MEDS: OMEPRAZOLE 20 MG CAPSULE.DR GT SCH (05:15)
[2019-06-22 08:00] VITALS: BP 109/67
[2019-06-22] MEDS: HYDROGEN PEROXIDE 3% 118 ML BOTTLE TP SCH ×2 (08:06→21:04)
[2019-06-22] MEDS: THERAHONEY GEL 1.5 OZ TUBE TOP SCH (08:17)
[2019-06-22] MEDS: SERTRALINE 25 MG GT SCH (08:17)
[2019-06-22] MEDS: ACIDOPHILUS/BULGARICUS CHEW TAB GT SCH ×2 (08:17→20:24)
[2019-06-22] MEDS: ACETAMINOPHEN 650 MG/20.3 ML LIQUID UDC GT SCH (08:17)
[2019-06-22] MEDS: COD LIVER OIL/ZINC OXIDE OINT 113 GM TUBE TP SCH ×2 (08:17→20:24)
[2019-06-22] MEDS: JEVITY 1.2 1000 ML LIQUID GT PRN (12:54)
[2019-06-22 20:18] VITALS: BP 101/57
[2019-06-22] MEDS: MULTIVIT, IRON, MIN NO. 8, FA TABLET GT SCH (20:24)
[2019-06-22] MEDS: SIMVASTATIN 10 MG TABLET GT SCH (20:24)
[2019-06-22] MEDS: ASCORBIC ACID 500 MG TABLET GT SCH (20:24)
[2019-06-22] MEDS: TEMAZEPAM 7.5 MG CAPSULE GT PRN (21:23)
[2019-06-23] MEDS: BACLOFEN 10 MG TABLET GT SCH ×5 (05:27→23:10)
[2019-06-23] MEDS: ARGININE/GLUTAMINE/CALCIUM BMB 1 EACH POWD.PACK GT SCH ×2 (05:27→17:02)
[2019-06-23] MEDS: PROTEIN SUPPLEMENT (PROSTAT) 30 ML LIQUID GT SCH ×3 (05:27→21:39)
[2019-06-23] MEDS: OMEPRAZOLE 20 MG CAPSULE.DR GT SCH (05:27)
[2019-06-23] MEDS: COD LIVER OIL/ZINC OXIDE OINT 113 GM TUBE TP SCH ×2 (08:16→20:39)
[2019-06-23] MEDS: SERTRALINE 25 MG GT SCH (08:16)
[2019-06-23] MEDS: THERAHONEY GEL 1.5 OZ TUBE TOP SCH (08:16)
[2019-06-23] MEDS: ACIDOPHILUS/BULGARICUS CHEW TAB GT SCH ×2 (08:16→20:39)
[2019-06-23] MEDS: ACETAMINOPHEN 650 MG/20.3 ML LIQUID UDC GT SCH (08:16)
[2019-06-23 08:30] VITALS: BP 107/50
[2019-06-23] MEDS: HYDROGEN PEROXIDE 3% 118 ML BOTTLE TP SCH ×2 (09:50→20:52)
[2019-06-23] MEDS: JEVITY 1.2 1000 ML LIQUID GT PRN (13:28)
--- NOTE | 2019-06-23 20:30 | NUR ---
SEEN BY JAI GAO WITH NEW ORDER.
[2019-06-23] MEDS: ASCORBIC ACID 500 MG TABLET GT SCH (20:39)
[2019-06-23] MEDS: MULTIVIT, IRON, MIN NO. 8, FA TABLET GT SCH (20:39)
[2019-06-23] MEDS: SIMVASTATIN 10 MG TABLET GT SCH (20:39)
[2019-06-23 20:41] VITALS: BP 106/46
[2019-06-23] MEDS: CEFTRIAXONE 1 G in IV DEXTROSE 5% 50 ML IV SCH (21:08)
--- NOTE | 2019-06-23 21:25 | NUR ---
UA/URINE C/S WAS COLLECTED AT 2100.ATB ROCEPHINE 1 GM IVPB Q24 HRS STARTED ORDERED.NO A/R NOTED.
[2019-06-24] MEDS: ARGININE/GLUTAMINE/CALCIUM BMB 1 EACH POWD.PACK GT SCH ×2 (05:01→17:03)
[2019-06-24] MEDS: BACLOFEN 10 MG TABLET GT SCH ×3 (05:01→17:03)
[2019-06-24] MEDS: OMEPRAZOLE 20 MG CAPSULE.DR GT SCH (05:02)
[2019-06-24] MEDS: PROTEIN SUPPLEMENT (PROSTAT) 30 ML LIQUID GT SCH ×3 (05:02→21:30)
[2019-06-24 08:00] VITALS: BP 116/56
[2019-06-24] MEDS: ACIDOPHILUS/BULGARICUS CHEW TAB GT SCH ×2 (08:58→21:29)
[2019-06-24] MEDS: ACETAMINOPHEN 650 MG/20.3 ML LIQUID UDC GT SCH (08:58)
[2019-06-24] MEDS: SERTRALINE 25 MG GT SCH (08:58)
[2019-06-24] MEDS: HYDROGEN PEROXIDE 3% 118 ML BOTTLE TP SCH ×2 (09:00→21:09)
[2019-06-24] MEDS: THERAHONEY GEL 1.5 OZ TUBE TOP SCH (10:00)
[2019-06-24] MEDS: COD LIVER OIL/ZINC OXIDE OINT 113 GM TUBE TP SCH ×2 (10:00→21:30)
--- NOTE | 2019-06-24 10:00 | NUR ---
SIMA VERGARA CALLED RE URINE CULTURE,UA. STATING LAB HAS NOT RECEIVED URINE. CALLED LAB TO CONFIRM. SPOKE WITH KYLEE, STATED THAT URINE CANNOT BE LOCATED. PER SIMA VERGARA IF CANNOT LOCATE URINE, TO RECOLLECT AND SEND.
--- NOTE | 2019-06-24 11:19 | NUR ---
SEEN BY LORA TODD WITH NO NEW ORDER.
[2019-06-24 12:21] LABS: *BILIRUBIN,URIN NEGATIVE (NEGATIVE); *BLOOD, URINE 2+ (NEGATIVE); *CLARITY,URINE CLOUDY (CLEAR); *COLOR,URINE YELLOW (YELLOW); *KETONES,URINE NEGATIVE (NEGATIVE); *UROBILINOGEN,URINE 0.2 E.U./dl (NORMAL); LEUKOCYTE ESTERASE ,URINE 3+ (NEGATIVE); NITRITE, URINE NEGATIVE (NEGATIVE); PH,URINE 7.5 (5.0-8.0); UGLUCOSE NEGATIVE (NEGATIVE)
[2019-06-24 12:35] LABS: RBC,URINE 20-50 /HPF (0-3); WBC,URINE TNTC /HPF (0-3)
[2019-06-24 12:36] LABS: SQUAMOUS EPITHELIAL CELL,UR FEW /HPF (NONE SEEN)
[2019-06-24 12:55] LABS: BACTERIA,URINE NONE SEEN /HPF (NONE SEEN)
[2019-06-24] MEDS: JEVITY 1.2 1000 ML LIQUID GT PRN (17:04)
[2019-06-24] MEDS: CEFTRIAXONE 1 G in IV DEXTROSE 5% 50 ML IV SCH (19:54)
[2019-06-24 20:35] VITALS: BP 112/63
[2019-06-24] MEDS: MULTIVIT, IRON, MIN NO. 8, FA TABLET GT SCH (21:29)
[2019-06-24] MEDS: ASCORBIC ACID 500 MG TABLET GT SCH (21:30)
[2019-06-24] MEDS: SIMVASTATIN 10 MG TABLET GT SCH (21:30)
[2019-06-24] MEDS: TEMAZEPAM 7.5 MG CAPSULE GT PRN (21:30)
[2019-06-25] MEDS: BACLOFEN 10 MG TABLET GT SCH ×4 (00:27→17:45)
[2019-06-25] MEDS: OMEPRAZOLE 20 MG CAPSULE.DR GT SCH (06:03)
[2019-06-25] MEDS: PROTEIN SUPPLEMENT (PROSTAT) 30 ML LIQUID GT SCH ×3 (06:03→21:43)
[2019-06-25] MEDS: ARGININE/GLUTAMINE/CALCIUM BMB 1 EACH POWD.PACK GT SCH ×2 (06:03→17:45)
[2019-06-25 08:00] VITALS: BP 121/50
[2019-06-25] MEDS: SERTRALINE 25 MG GT SCH (08:13)
[2019-06-25] MEDS: ACETAMINOPHEN 650 MG/20.3 ML LIQUID UDC GT SCH (08:13)
[2019-06-25] MEDS: ACIDOPHILUS/BULGARICUS CHEW TAB GT SCH ×2 (08:13→21:39)
[2019-06-25] MEDS: COD LIVER OIL/ZINC OXIDE OINT 113 GM TUBE TP SCH ×2 (08:45→21:43)
[2019-06-25] MEDS: THERAHONEY GEL 1.5 OZ TUBE TOP SCH (08:45)
[2019-06-25] MEDS: HYDROGEN PEROXIDE 3% 118 ML BOTTLE TP SCH ×2 (09:00→21:12)
--- NOTE | 2019-06-25 14:00 | NUR ---
Seen and examined by Ludmila Rubalcava Automation Developer with new orders noted to insert F/C due to skin management,continue on ivatb for UTI,no adverse reaction noted,IV site intact.
--- NOTE | 2019-06-25 14:53 | NUR ---
INTERDISCIPLINARY PLAN OF CARE CONFERENCE was held today. Patient's daughter Ludmila was not able to attend the meeting. Dr. Sylvester and the Interdisciplinary Team reviewed the current plan of care in detail. RN reported on patient's current medical condition, pending labs, and current treatment. See RN IDT conference notes. See also all other disciplines IDT notes and physician's progress notes for additional details.
--- NOTE | 2019-06-25 16:55 | NUR ---
SW called patient's daughter Ludmila [phone] to follow-up on the couple of emails this SW had sent Ludmila earlier this month regarding scheduling a time for Ludmila to come in to meet with this SW in order to sign patient's annual admission paperwork. Ludmila apologized for not getting back to this SW, and stated that she can come in on , 07/04/2019 around 1:30pm to meet with this SW. SW agreed to the day/time, and reminded Ludmila that signing these forms are time-sensitive and that they need to be completed in the month of June. Ludmila expressed understanding and agreement, and stated that she will be in on 07/04/2019 to meet with this SW.
[2019-06-25] MEDS: JEVITY 1.2 1000 ML LIQUID GT PRN (17:45)
--- NOTE | 2019-06-25 17:56 | NUR ---
Pharmacy Update from Today's 06/25/19 IDT meeting VS: Temp 98.1 BP 121/50 HR 94 LABS: (from 06/03/19) Wbc 9.4 H/H 13.7/42.3 Plt 156 Na 144 K 4.0 Cl 107 CO2 28 BUN/SCr 24/0.6 BS 125 Ca 8.8 MEDICATION USE REVIEWED: > Pt not on any anti-seizure medications > Pt on Restoril 7.5mg HS PRN + 7.5mg PRN one hr later since last GDR on 04/03/19. Monitored hours of sleep in Nov: 5hrx1, 6x2, 7x16, 8x12. PRN used x13 and repeat x3 in Dec. No issues noted per staff. > Pt continues on zoloft 25mg daily after failed GDR as of 05/18/19 for depression m/b sadness (pt able to verbalize/mouth in response). Patient affirmed 3 episodes sadness in Dec. No side effects noted per pt or staff. Will follow > PRN MED USAGE: (dec) Tylenol for pain/temp used x0 Artificial Tears used x0 Cactus x2 (painful sacral ulcer/wound requiring debridement, treated for OM with 6 wks vanco/cefepime in 05/21, repeat treatment with rocephin and vanco 12/01-12/09/17, followed by augmentin 12/09-01/12/18 per wound cx sensitivities) NEW ORDERS NOTED: > Rocephin 05/27-05/29 for UTI > Changed to Bactrim 05/30-06/02 > Then further changed to vanco/zosyn 06/03-06/08 d/t increased fevers > Rocephin course again from 06/23-06/28 with UCx repeat now pending (as first sample was misplaced per lab) Patient reviewed and discussed in detail at IDT with no issues noted per staff at this time. Will await cultures and follow, no further recommendations in the meantime. Will continue to monitor.
[2019-06-25] MEDS: CEFTRIAXONE 1 G in IV DEXTROSE 5% 50 ML IV SCH (20:15)
[2019-06-25] MEDS: MULTIVIT, IRON, MIN NO. 8, FA TABLET GT SCH (21:39)
[2019-06-25] MEDS: ASCORBIC ACID 500 MG TABLET GT SCH (21:39)
[2019-06-25] MEDS: SIMVASTATIN 10 MG TABLET GT SCH (21:42)
[2019-06-25] MEDS: TEMAZEPAM 7.5 MG CAPSULE GT PRN (21:46)
[2019-06-25 23:37] VITALS: BP 114/50
[2019-06-26] MEDS: BACLOFEN 10 MG TABLET GT SCH ×4 (00:26→17:15)
[2019-06-26] MEDS: OMEPRAZOLE 20 MG CAPSULE.DR GT SCH (06:06)
[2019-06-26] MEDS: ARGININE/GLUTAMINE/CALCIUM BMB 1 EACH POWD.PACK GT SCH ×2 (06:06→17:15)
[2019-06-26] MEDS: PROTEIN SUPPLEMENT (PROSTAT) 30 ML LIQUID GT SCH ×3 (06:06→21:53)
--- NOTE | 2019-06-26 07:12 | NUR ---
pt on IV Rocephin 1 gm Q24 for dysuria, UA /culture result pending. IV heplock on left hand patent without tenderness or erythema. Pt was afebrile. Perea cath care provided, Dx- for wound management.
[2019-06-26 08:00] VITALS: BP 113/50
[2019-06-26] MEDS: ACIDOPHILUS/BULGARICUS CHEW TAB GT SCH ×2 (08:46→21:53)
[2019-06-26] MEDS: ACETAMINOPHEN 650 MG/20.3 ML LIQUID UDC GT SCH (08:46)
[2019-06-26] MEDS: SERTRALINE 25 MG GT SCH (08:47)
[2019-06-26] MEDS: HYDROGEN PEROXIDE 3% 118 ML BOTTLE TP SCH ×2 (09:00→20:59)
[2019-06-26] MEDS: THERAHONEY GEL 1.5 OZ TUBE TOP SCH (09:35)
[2019-06-26] MEDS: COD LIVER OIL/ZINC OXIDE OINT 113 GM TUBE TP SCH ×2 (09:36→21:53)
[2019-06-26] MEDS: JEVITY 1.2 1000 ML LIQUID GT PRN (17:15)
[2019-06-26 20:23] VITALS: BP 106/42
[2019-06-26] MEDS: CEFTRIAXONE 1 G in IV DEXTROSE 5% 50 ML IV SCH (20:53)
[2019-06-26] MEDS: MULTIVIT, IRON, MIN NO. 8, FA TABLET GT SCH (21:53)
[2019-06-26] MEDS: ASCORBIC ACID 500 MG TABLET GT SCH (21:53)
[2019-06-26] MEDS: SIMVASTATIN 10 MG TABLET GT SCH (21:53)
[2019-06-26] MEDS: TEMAZEPAM 7.5 MG CAPSULE GT PRN (22:00)
[2019-06-27] MEDS: OMEPRAZOLE 20 MG CAPSULE.DR GT SCH (05:03)
[2019-06-27] MEDS: BACLOFEN 10 MG TABLET GT SCH ×4 (05:03→17:36)
[2019-06-27] MEDS: ARGININE/GLUTAMINE/CALCIUM BMB 1 EACH POWD.PACK GT SCH ×2 (05:03→17:36)
[2019-06-27] MEDS: PROTEIN SUPPLEMENT (PROSTAT) 30 ML LIQUID GT SCH ×3 (05:03→22:10)
[2019-06-27 08:30] VITALS: BP 105/67
[2019-06-27] MEDS: ACIDOPHILUS/BULGARICUS CHEW TAB GT SCH ×2 (08:46→21:00)
[2019-06-27] MEDS: THERAHONEY GEL 1.5 OZ TUBE TOP SCH (08:46)
[2019-06-27] MEDS: ACETAMINOPHEN 650 MG/20.3 ML LIQUID UDC GT SCH (08:46)
[2019-06-27] MEDS: SERTRALINE 25 MG GT SCH (08:46)
[2019-06-27] MEDS: COD LIVER OIL/ZINC OXIDE OINT 113 GM TUBE TP SCH ×2 (08:46→21:00)
[2019-06-27] MEDS: HYDROGEN PEROXIDE 3% 118 ML BOTTLE TP SCH ×2 (09:46→20:55)
[2019-06-27] MEDS: JEVITY 1.2 1000 ML LIQUID GT PRN (17:38)
[2019-06-27] MEDS: CEFTRIAXONE 1 G in IV DEXTROSE 5% 50 ML IV SCH (20:30)
[2019-06-27 20:50] VITALS: BP 107/50
[2019-06-27] MEDS: MULTIVIT, IRON, MIN NO. 8, FA TABLET GT SCH (21:00)
[2019-06-27] MEDS: SIMVASTATIN 10 MG TABLET GT SCH (21:00)
[2019-06-27] MEDS: ASCORBIC ACID 500 MG TABLET GT SCH (21:00)
--- NOTE | 2019-06-27 21:12 | NUR ---
Seen and examined by Morgan Finley NP with no new orders.
[2019-06-27] MEDS: TEMAZEPAM 7.5 MG CAPSULE GT PRN (22:10)
--- NOTE | 2019-06-27 22:21 | NUR ---
Last dose of Rocephin IV for UTI, no adverse reactions noted, afebrile, fluids given as ordered, baumann catheter intact and draining well to yellow urine, kept clean and comfortable, Will continue monitor.
[2019-06-28] MEDS: BACLOFEN 10 MG TABLET GT SCH ×4 (00:02→17:32)
[2019-06-28] MEDS: OMEPRAZOLE 20 MG CAPSULE.DR GT SCH (05:50)
[2019-06-28] MEDS: ARGININE/GLUTAMINE/CALCIUM BMB 1 EACH POWD.PACK GT SCH ×2 (05:50→17:32)
[2019-06-28] MEDS: PROTEIN SUPPLEMENT (PROSTAT) 30 ML LIQUID GT SCH ×3 (05:50→21:07)
[2019-06-28 08:02] VITALS: BP 100/62
[2019-06-28] MEDS: HYDROGEN PEROXIDE 3% 118 ML BOTTLE TP SCH ×2 (09:00→20:57)
[2019-06-28] MEDS: THERAHONEY GEL 1.5 OZ TUBE TOP SCH (09:03)
[2019-06-28] MEDS: ACIDOPHILUS/BULGARICUS CHEW TAB GT SCH ×2 (09:03→21:06)
[2019-06-28] MEDS: SERTRALINE 25 MG GT SCH (09:03)
[2019-06-28] MEDS: ACETAMINOPHEN 650 MG/20.3 ML LIQUID UDC GT SCH (09:03)
[2019-06-28] MEDS: COD LIVER OIL/ZINC OXIDE OINT 113 GM TUBE TP SCH ×2 (09:03→21:07)
[2019-06-28] MEDS: JEVITY 1.2 1000 ML LIQUID GT PRN (17:32)
[2019-06-28 20:47] VITALS: BP 115/56
[2019-06-28] MEDS: SIMVASTATIN 10 MG TABLET GT SCH (21:06)
[2019-06-28] MEDS: ASCORBIC ACID 500 MG TABLET GT SCH (21:06)
[2019-06-28] MEDS: MULTIVIT, IRON, MIN NO. 8, FA TABLET GT SCH (21:06)
[2019-06-28] MEDS: CEFTRIAXONE 1 G in IV DEXTROSE 5% 50 ML IV SCH (21:28)
--- NOTE | 2019-06-28 22:32 | NUR ---
S/P IV antibiotic for UTI, no adverse reactions noted, afebrile, fluids given as ordered, baumann catheter is draining well to yellow urine, good sukumar care rendered, kept clean and comfortable.
[2019-06-29] MEDS: BACLOFEN 10 MG TABLET GT SCH ×4 (05:06→17:17)
[2019-06-29] MEDS: ARGININE/GLUTAMINE/CALCIUM BMB 1 EACH POWD.PACK GT SCH ×2 (05:06→17:17)
[2019-06-29] MEDS: PROTEIN SUPPLEMENT (PROSTAT) 30 ML LIQUID GT SCH ×3 (05:06→21:27)
[2019-06-29] MEDS: OMEPRAZOLE 20 MG CAPSULE.DR GT SCH (05:06)
[2019-06-29 08:02] VITALS: BP 114/58
[2019-06-29] MEDS: HYDROGEN PEROXIDE 3% 118 ML BOTTLE TP SCH ×2 (09:10→21:12)
[2019-06-29] MEDS: ACETAMINOPHEN 650 MG/20.3 ML LIQUID UDC GT SCH (09:22)
[2019-06-29] MEDS: ACIDOPHILUS/BULGARICUS CHEW TAB GT SCH ×2 (09:22→20:09)
[2019-06-29] MEDS: SERTRALINE 25 MG GT SCH (09:23)
[2019-06-29] MEDS: THERAHONEY GEL 1.5 OZ TUBE TOP SCH (09:23)
[2019-06-29] MEDS: COD LIVER OIL/ZINC OXIDE OINT 113 GM TUBE TP SCH ×2 (09:23→20:09)
[2019-06-29] MEDS: ASCORBIC ACID 500 MG TABLET GT SCH (20:09)
[2019-06-29] MEDS: SIMVASTATIN 10 MG TABLET GT SCH (20:09)
[2019-06-29] MEDS: MULTIVIT, IRON, MIN NO. 8, FA TABLET GT SCH (20:09)
[2019-06-29] MEDS: HYDROCODONE/APAP 5-325MG TABLET GT PRN (20:09)
[2019-06-29 20:41] VITALS: BP 106/47
[2019-06-30] MEDS: BACLOFEN 10 MG TABLET GT SCH ×5 (00:54→23:20)
--- NOTE | 2019-06-30 01:41 | NUR ---
Afebrile, S/P IV antibiotic for UTI, no adverse reactions noted, fluids given as ordered, baumann catheter is draining well to yellow urine, good sukumar care rendered, Turned and repositioned, kept clean and comfortable.
[2019-06-30] MEDS: ARGININE/GLUTAMINE/CALCIUM BMB 1 EACH POWD.PACK GT SCH ×2 (05:19→18:26)
[2019-06-30] MEDS: OMEPRAZOLE 20 MG CAPSULE.DR GT SCH (05:19)
[2019-06-30] MEDS: PROTEIN SUPPLEMENT (PROSTAT) 30 ML LIQUID GT SCH ×3 (05:19→21:11)
[2019-06-30 07:30] VITALS: BP 120/46
[2019-06-30] MEDS: ACETAMINOPHEN 650 MG/20.3 ML LIQUID UDC GT SCH (07:30)
--- NOTE | 2019-06-30 07:40 | NUR ---
TYLENOL GIVEN FOR TEMP 102.7, WOUND CARE SCHEDULED AT SAME TIME. COOLING MEASURE RENDERED.
--- NOTE | 2019-06-30 08:05 | NUR ---
DR. TURCIOS (I.D) WAS CALLED RE FEVER AT THIS TIME (SEE RECORD).
[2019-06-30] MEDS: HYDROGEN PEROXIDE 3% 118 ML BOTTLE TP SCH ×2 (08:29→20:57)
[2019-06-30] MEDS: SERTRALINE 25 MG GT SCH (08:41)
[2019-06-30] MEDS: COD LIVER OIL/ZINC OXIDE OINT 113 GM TUBE TP SCH ×2 (08:41→21:11)
[2019-06-30] MEDS: ACIDOPHILUS/BULGARICUS CHEW TAB GT SCH ×2 (08:41→21:11)
[2019-06-30] MEDS: THERAHONEY GEL 1.5 OZ TUBE TOP SCH (08:41)
--- NOTE | 2019-06-30 08:50 | NUR ---
DR. TURCIOS CALLED BACK AND AWARE OF PT'S CONDITION TEMP 102.2F AND AFTER THE MORNING BED BATH 100.8F(SEE V/S RECORD) AND WITH NEW ORDERS CARRIED OUT.
[2019-06-30 10:30] LABS: BASOPHILS # (AUTO) 0.1 K/uL (0.0-8.0); BASOPHILS % (AUTO) 0.8 % (0.0-2.0); EOSINOPHILS # (AUTO) 0.2 K/uL (0.0-0.7); HEMATOCRIT 45.3 % (31.2-41.9); HEMOGLOBIN 14.6 g/dL (10.9-14.3); LYMPHOCYTES # (AUTO) 3.1 K/uL (20.0-40.0); LYMPHOCYTES % (AUTO) 26.4 % (20.5-51.5); MEAN CORPUSCULAR HEMOGLOBIN 29.9 uug (24.7-32.8); MEAN CORPUSCULAR HGB CONC 32 g/dL (32.3-35.6); MEAN CORPUSCULAR VOLUME 92.7 fL (75.5-95.3); MONOCYTES # (AUTO) 1.2 K/uL (2.0-10.0); MONOCYTES % (AUTO) 10.1 % (0.0-11.0); NEUTROPHILS # (AUTO) 7.2 K/uL (1.8-8.9); NEUTROPHILS % (AUTO) 60.7 % (38.5-71.5); PLATELET COUNT (AUTO) 163 K/uL (179-408); RED BLOOD CELL COUNT(AUTO) 4.89 MIL/uL (3.63-4.92); WHITE BLOOD COUNT (AUTO) 11.9 K/uL (3.8-11.8)
[2019-06-30 10:32] LABS: POTASSIUM 3.6 mmol/L (3.5-5.1)
--- NOTE | 2019-06-30 10:45 | NUR ---
[facility] IV PHARMACIST SAMANTA GAVE DOSED ORDER FOR VANCOMYCIN AND ZOSYN IV TO . NURSE AND ORDERS CARRIED OUT PT. IN AGREEMENT WITH ORDERS.
[2019-06-30 12:39] LABS: BILIRUBIN,DIRECT 0.2 mg/dL (0.0-0.2); BILIRUBIN,TOTAL 0.8 mg/dL (0.2-1.0)
[2019-06-30] MEDS: VANCOMYCIN IV 1 G in PREMIXED 0 EACH IV SCH (12:40)
--- NOTE | 2019-06-30 12:51 | NUR ---
WAS CALLED TO NOTIFY RE: LACTIC ACID 2.4 AND MESSAGE LEFT AND AWAITING FOR CALL BACK.
--- NOTE | 2019-06-30 14:37 | NUR ---
DR. TURCIOS PAGED D/T PT'S FACE OBSERVED WITH SOME FACIAL REDNESS AND COMPLAINING OF ITCHING ON FACE ,REST OF BODY CLEAR AT THIS TIME.
--- NOTE | 2019-06-30 14:54 | NUR ---
DR. TURCIOS CALLED BACK AND AWARE OF PT'S CONDITION AND WITH NEW ORDERS CARRIED OUT,PT'S DTR. RAKEL WAS CALLED AND AWARE OF PT'S CONDITION AND TC AND AWARE THAT PT. IS IN AGREEMENT AND SHE IS IN AGREEMENT TOO.
--- NOTE | 2019-06-30 15:40 | NUR ---
DR. TURCIOS WAS AWARE OF LACTIC ACID LEVEL 2.4 AND WITH NNO.
[2019-06-30] MEDS: JEVITY 1.2 1000 ML LIQUID GT PRN (16:51)
--- NOTE | 2019-06-30 17:13 | NUR ---
PT. OBSERVED WITH FACIAL SKIN CLEAR AND NO ITCHING AT ALL AND DENIES ANY DISCOMFORT.
[2019-06-30 21:09] VITALS: BP 108/61
[2019-06-30] MEDS: MULTIVIT, IRON, MIN NO. 8, FA TABLET GT SCH (21:11)
[2019-06-30] MEDS: SIMVASTATIN 10 MG TABLET GT SCH (21:11)
[2019-06-30] MEDS: ASCORBIC ACID 500 MG TABLET GT SCH (21:11)
[2019-06-30] MEDS: MEROPENEM 1 G in IV NORMAL SALINE 100 ML IV SCH (22:01)
--- NOTE | 2019-06-30 23:05 | NUR ---
Patient is afebrile, no signs of any respiratory distress noted, on merrem and Vancomycin IV, no adverse reactions noted, denies itching or any discomforts, fluids given as ordered, trach intact and patent, suctioned, no respiratory distress noted. baumann catheter intact and patent, draining with yellow urine, good sukumar care rendered, turned and repositioned, will continue monitor.
[2019-07-01] MEDS: OMEPRAZOLE 20 MG CAPSULE.DR GT SCH (05:32)
[2019-07-01] MEDS: BACLOFEN 10 MG TABLET GT SCH ×3 (05:32→18:00)
[2019-07-01] MEDS: ARGININE/GLUTAMINE/CALCIUM BMB 1 EACH POWD.PACK GT SCH ×2 (05:32→18:00)
[2019-07-01] MEDS: MEROPENEM 1 G in IV NORMAL SALINE 100 ML IV SCH ×3 (05:32→21:46)
[2019-07-01] MEDS: PROTEIN SUPPLEMENT (PROSTAT) 30 ML LIQUID GT SCH ×3 (05:32→21:46)
[2019-07-01 08:00] VITALS: BP 101/54
[2019-07-01] MEDS: ACETAMINOPHEN 650 MG/20.3 ML LIQUID UDC GT SCH (08:30)
[2019-07-01] MEDS: HYDROGEN PEROXIDE 3% 118 ML BOTTLE TP SCH ×2 (09:00→21:52)
[2019-07-01] MEDS: ACIDOPHILUS/BULGARICUS CHEW TAB GT SCH ×2 (09:47→20:40)
[2019-07-01] MEDS: SERTRALINE 25 MG GT SCH (09:47)
[2019-07-01] MEDS: THERAHONEY GEL 1.5 OZ TUBE TOP SCH (09:47)
[2019-07-01] MEDS: COD LIVER OIL/ZINC OXIDE OINT 113 GM TUBE TP SCH ×2 (09:47→20:40)
[2019-07-01] MEDS: VANCOMYCIN IV 1 G in PREMIXED 0 EACH IV SCH ×3 (12:00)
--- NOTE | 2019-07-01 13:00 | NUR ---
TAMIKA PHARMACIST FROM [facility] AWARE OF [facility] LEVEL 10.3 AND WITH NEW ORDER TO CONTINUE SAME DOSE AND ORDER CARRIED OUT ,NO A/R TO IV ATB.
--- NOTE | 2019-07-01 14:00 | NUR ---
PT. SEEN AND EXAMINED BY AMY Lorenzo AND JOSE CARREON N.P AND WITH NNO.
--- NOTE | 2019-07-01 17:00 | NUR ---
JOSE CARREON WITH NEW ORDER TO CHECK LACTIC ACID LEVEL AND WNR(SEE RECORD)
[2019-07-01] MEDS: SIMVASTATIN 10 MG TABLET GT SCH (20:40)
[2019-07-01] MEDS: ASCORBIC ACID 500 MG TABLET GT SCH (20:40)
[2019-07-01] MEDS: MULTIVIT, IRON, MIN NO. 8, FA TABLET GT SCH (20:40)
[2019-07-01] MEDS: TEMAZEPAM 7.5 MG CAPSULE GT PRN (20:41)
--- NOTE | 2019-07-01 21:59 | NUR ---
Still on Merrem and Vancomycin IV for fever, no adverse reactions noted, denies itching or any discomforts, fluids given as ordered, trach intact and patent, suctioned, no respiratory distress noted. Perea catheter intact and patent, draining with yellow urine, good sukumar care rendered, turned and repositioned, will continue monitor.
[2019-07-01 22:08] VITALS: BP 112/50
--- NOTE | 2019-07-01 23:34 | NUR ---
Seen and examined by Dr. Pittman with no new orders.
[2019-07-02] MEDS: VANCOMYCIN IV 1 G in PREMIXED 0 EACH IV SCH ×2 (00:27→12:00)
[2019-07-02] MEDS: BACLOFEN 10 MG TABLET GT SCH ×4 (00:46→17:34)
[2019-07-02] MEDS: ARGININE/GLUTAMINE/CALCIUM BMB 1 EACH POWD.PACK GT SCH ×2 (05:00→17:33)
[2019-07-02] MEDS: OMEPRAZOLE 20 MG CAPSULE.DR GT SCH (05:01)
[2019-07-02] MEDS: PROTEIN SUPPLEMENT (PROSTAT) 30 ML LIQUID GT SCH ×3 (05:01→22:08)
[2019-07-02] MEDS: MEROPENEM 1 G in IV NORMAL SALINE 100 ML IV SCH ×3 (05:01→22:08)
[2019-07-02 08:00] VITALS: BP 106/52
[2019-07-02] MEDS: HYDROGEN PEROXIDE 3% 118 ML BOTTLE TP SCH ×2 (08:39→21:07)
[2019-07-02] MEDS: ACETAMINOPHEN 650 MG/20.3 ML LIQUID UDC GT SCH (09:02)
[2019-07-02] MEDS: THERAHONEY GEL 1.5 OZ TUBE TOP SCH (09:02)
[2019-07-02] MEDS: ACIDOPHILUS/BULGARICUS CHEW TAB GT SCH ×2 (09:02→20:17)
[2019-07-02] MEDS: COD LIVER OIL/ZINC OXIDE OINT 113 GM TUBE TP SCH ×2 (09:02→20:17)
[2019-07-02] MEDS: SERTRALINE 25 MG GT SCH (09:02)
--- NOTE | 2019-07-02 11:00 | NUR ---
Seen and examined by Dionna Hermosillo,no new orders.Continue on ivatb,no adverse reaction noted,iv reinserted on the L hand due to redness on the R FA site.Procedure tolerated well.
--- NOTE | 2019-07-02 14:00 | NUR ---
seen and examined by Morgan Contracting Analyst ,aware of the preliminary urine culture Yeast she requested the nurse to change the f/c ,F/c changed procedure tolerated well.
[2019-07-02] MEDS: JEVITY 1.2 1000 ML LIQUID GT PRN (17:47)
[2019-07-02 20:02] VITALS: BP 117/63
[2019-07-02] MEDS: SIMVASTATIN 10 MG TABLET GT SCH (20:17)
[2019-07-02] MEDS: ASCORBIC ACID 500 MG TABLET GT SCH (20:17)
[2019-07-02] MEDS: MULTIVIT, IRON, MIN NO. 8, FA TABLET GT SCH (20:17)
--- NOTE | 2019-07-02 20:22 | NUR ---
Still on Merrem and Vancomycin IV for fever, no adverse reactions noted, denies itching or any discomforts, IV site on left hand is intact and no signs of infiltration. Fluids given as ordered, trach intact and patent, suctioned, no respiratory distress noted. Perea catheter intact and patent, draining with yellow urine, good sukumar care rendered, turned and repositioned, will continue monitor.
[2019-07-03] MEDS: VANCOMYCIN IV 1 G in PREMIXED 0 EACH IV SCH ×2 (00:11→12:00)
[2019-07-03] MEDS: BACLOFEN 10 MG TABLET GT SCH ×4 (00:11→17:22)
[2019-07-03] MEDS: HYDROCODONE/APAP 5-325MG TABLET GT PRN (02:46)
[2019-07-03] MEDS: MEROPENEM 1 G in IV NORMAL SALINE 100 ML IV SCH ×3 (05:24→22:07)
[2019-07-03] MEDS: ARGININE/GLUTAMINE/CALCIUM BMB 1 EACH POWD.PACK GT SCH ×2 (05:24→17:22)
[2019-07-03] MEDS: OMEPRAZOLE 20 MG CAPSULE.DR GT SCH (05:24)
[2019-07-03] MEDS: PROTEIN SUPPLEMENT (PROSTAT) 30 ML LIQUID GT SCH ×3 (05:24→21:55)
[2019-07-03] MEDS: HYDROGEN PEROXIDE 3% 118 ML BOTTLE TP SCH ×2 (08:15→21:07)
[2019-07-03] MEDS: ACETAMINOPHEN 650 MG/20.3 ML LIQUID UDC GT SCH (08:37)
[2019-07-03] MEDS: ACIDOPHILUS/BULGARICUS CHEW TAB GT SCH ×2 (08:38→21:55)
[2019-07-03] MEDS: SERTRALINE 25 MG GT SCH (08:38)
[2019-07-03] MEDS: THERAHONEY GEL 1.5 OZ TUBE TOP SCH (09:28)
[2019-07-03] MEDS: COD LIVER OIL/ZINC OXIDE OINT 113 GM TUBE TP SCH ×2 (09:29→21:55)
[2019-07-03 14:53] VITALS: BP 110/56
--- NOTE | 2019-07-03 19:00 | NUR ---
Pt continue on Merren IVATB,no adverse reaction noted,vancomycin discontinue.iv site on the L hand intact.
[2019-07-03 20:00] VITALS: BP 118/60
[2019-07-03] MEDS: ASCORBIC ACID 500 MG TABLET GT SCH (21:55)
[2019-07-03] MEDS: SIMVASTATIN 10 MG TABLET GT SCH (21:55)
[2019-07-03] MEDS: MULTIVIT, IRON, MIN NO. 8, FA TABLET GT SCH (21:55)
--- NOTE | 2019-07-04 02:46 | NUR ---
continue on merrem 1 gm iv for fever, no adverse reaction noted, afebrile, no respiratory distress noted.
[2019-07-04] MEDS: ARGININE/GLUTAMINE/CALCIUM BMB 1 EACH POWD.PACK GT SCH ×2 (05:07→17:06)
[2019-07-04] MEDS: OMEPRAZOLE 20 MG CAPSULE.DR GT SCH (05:07)
[2019-07-04] MEDS: BACLOFEN 10 MG TABLET GT SCH ×4 (05:07→17:06)
[2019-07-04] MEDS: PROTEIN SUPPLEMENT (PROSTAT) 30 ML LIQUID GT SCH ×3 (05:07→21:05)
[2019-07-04] MEDS: MEROPENEM 1 G in IV NORMAL SALINE 100 ML IV SCH ×3 (05:57→22:57)
[2019-07-04 08:30] VITALS: BP 123/68
[2019-07-04] MEDS: THERAHONEY GEL 1.5 OZ TUBE TOP SCH (08:35)
[2019-07-04] MEDS: ACIDOPHILUS/BULGARICUS CHEW TAB GT SCH ×2 (08:35→20:58)
[2019-07-04] MEDS: ACETAMINOPHEN 650 MG/20.3 ML LIQUID UDC GT SCH (08:35)
[2019-07-04] MEDS: SERTRALINE 25 MG GT SCH (08:35)
[2019-07-04] MEDS: COD LIVER OIL/ZINC OXIDE OINT 113 GM TUBE TP SCH ×2 (08:35→20:58)
[2019-07-04] MEDS: HYDROGEN PEROXIDE 3% 118 ML BOTTLE TP SCH ×2 (09:20→21:27)
--- NOTE | 2019-07-04 13:56 | NUR ---
Patient's daughter Ludmila came in to meet with this DOROTHY today, as scheduled. DOROTHY reviewed all the annual admission paperwork with Ludmila. DOROTHY obtained signatures from Ludmila on all the annual admission paperwork, which includes: Conditions of Admission, Patient Rights Acknowledgement, An Important Message from Medicare about your Rights, Documentation of Preferred Intensity of Care, Voluntary Prior Express Consent Form, Race and Ethnicity Patient Self-Identification, and the [facility] Agreement. DOROTHY offered Ludmila copies of the signed forms, but Ludmila declined, stating she has previous copies. For previous assessment/quarterly information, see patient's previous chart #[id number].
[2019-07-04] MEDS: ACETAMINOPHEN 650 MG/20 ML UDC- SA PATIENTS-FEVER ONLY GT PRN (19:59)
[2019-07-04] MEDS: SIMVASTATIN 10 MG TABLET GT SCH (20:58)
[2019-07-04] MEDS: MULTIVIT, IRON, MIN NO. 8, FA TABLET GT SCH (20:58)
[2019-07-04] MEDS: ASCORBIC ACID 500 MG TABLET GT SCH (20:58)
[2019-07-04 22:14] VITALS: BP 99/52
[2019-07-05] MEDS: BACLOFEN 10 MG TABLET GT SCH ×5 (00:12→23:04)
[2019-07-05] MEDS: OMEPRAZOLE 20 MG CAPSULE.DR GT SCH (05:37)
[2019-07-05] MEDS: PROTEIN SUPPLEMENT (PROSTAT) 30 ML LIQUID GT SCH ×3 (05:37→21:35)
[2019-07-05] MEDS: ARGININE/GLUTAMINE/CALCIUM BMB 1 EACH POWD.PACK GT SCH ×2 (05:37→17:19)
[2019-07-05] MEDS: MEROPENEM 1 G in IV NORMAL SALINE 100 ML IV SCH ×2 (05:39→13:38)
[2019-07-05 08:02] VITALS: BP 111/64
[2019-07-05] MEDS: ACETAMINOPHEN 650 MG/20.3 ML LIQUID UDC GT SCH (08:23)
[2019-07-05] MEDS: THERAHONEY GEL 1.5 OZ TUBE TOP SCH (08:23)
[2019-07-05] MEDS: SERTRALINE 25 MG GT SCH (08:23)
[2019-07-05] MEDS: COD LIVER OIL/ZINC OXIDE OINT 113 GM TUBE TP SCH ×2 (08:23→20:45)
[2019-07-05] MEDS: ACIDOPHILUS/BULGARICUS CHEW TAB GT SCH ×2 (08:23→20:45)
[2019-07-05] MEDS: HYDROGEN PEROXIDE 3% 118 ML BOTTLE TP SCH ×2 (10:20→21:00)
--- NOTE | 2019-07-05 19:35 | NUR ---
FERNANDO FU N.P. CAME AND SEEN PT, NO NEW ORDERS. Addendum: 07/06/19 at 0528 by REYES ALFREDO RN FERNANDO FU N.P. ORDERED BMP,CBC,LACTIC ACID IN AM.
[2019-07-05] MEDS: SIMVASTATIN 10 MG TABLET GT SCH (20:45)
[2019-07-05] MEDS: MULTIVIT, IRON, MIN NO. 8, FA TABLET GT SCH (20:45)
[2019-07-05] MEDS: ASCORBIC ACID 500 MG TABLET GT SCH (20:45)
[2019-07-05] MEDS: ACETAMINOPHEN 650 MG/20 ML UDC- SA PATIENTS-PAIN ONLY GT PRN (21:00)
[2019-07-05 23:18] VITALS: BP 103/51
[2019-07-06] MEDS: ARGININE/GLUTAMINE/CALCIUM BMB 1 EACH POWD.PACK GT SCH ×2 (05:37→17:01)
[2019-07-06] MEDS: PROTEIN SUPPLEMENT (PROSTAT) 30 ML LIQUID GT SCH ×3 (05:38→22:18)
[2019-07-06] MEDS: BACLOFEN 10 MG TABLET GT SCH ×3 (05:38→17:01)
[2019-07-06] MEDS: OMEPRAZOLE 20 MG CAPSULE.DR GT SCH (05:38)
[2019-07-06 06:50] LABS: BASOPHILS # (AUTO) 0.1 K/uL (0.0-8.0); BASOPHILS % (AUTO) 0.8 % (0.0-2.0); EOSINOPHILS # (AUTO) 0.6 K/uL (0.0-0.7); EOSINOPHILS % (AUTO) 7.1 % (0.0-7.0); HEMATOCRIT 40.4 % (31.2-41.9); HEMOGLOBIN 13.3 g/dL (10.9-14.3); LYMPHOCYTES % (AUTO) 24.2 % (20.5-51.5); MEAN CORPUSCULAR HEMOGLOBIN 30.4 uug (24.7-32.8); MEAN CORPUSCULAR HGB CONC 33 g/dL (32.3-35.6); MEAN CORPUSCULAR VOLUME 92.3 fL (75.5-95.3); MONOCYTES # (AUTO) 0.5 K/uL (2.0-10.0); MONOCYTES % (AUTO) 6.6 % (0.0-11.0); NEUTROPHILS % (AUTO) 61.3 % (38.5-71.5); PLATELET COUNT (AUTO) 157 K/uL (179-408); RED BLOOD CELL COUNT(AUTO) 4.38 MIL/uL (3.63-4.92); WHITE BLOOD COUNT (AUTO) 8.2 K/uL (3.8-11.8)
[2019-07-06 07:23] LABS: CREATININE 0.7 mg/dL (0.6-1.3); POTASSIUM 4.2 mmol/L (3.5-5.1)
[2019-07-06 08:02] VITALS: BP 115/52
[2019-07-06] MEDS: ACETAMINOPHEN 650 MG/20.3 ML LIQUID UDC GT SCH (08:45)
[2019-07-06] MEDS: COD LIVER OIL/ZINC OXIDE OINT 113 GM TUBE TP SCH ×2 (08:45→20:44)
[2019-07-06] MEDS: THERAHONEY GEL 1.5 OZ TUBE TOP SCH (08:45)
[2019-07-06] MEDS: SERTRALINE 25 MG GT SCH (08:45)
[2019-07-06] MEDS: ACIDOPHILUS/BULGARICUS CHEW TAB GT SCH ×2 (08:45→20:44)
[2019-07-06] MEDS: HYDROGEN PEROXIDE 3% 118 ML BOTTLE TP SCH ×2 (09:55→21:40)
[2019-07-06] MEDS: JEVITY 1.2 1000 ML LIQUID GT PRN (16:58)
[2019-07-06] MEDS: MULTIVIT, IRON, MIN NO. 8, FA TABLET GT SCH (20:44)
[2019-07-06] MEDS: SIMVASTATIN 10 MG TABLET GT SCH (20:44)
[2019-07-06] MEDS: ASCORBIC ACID 500 MG TABLET GT SCH (20:44)
[2019-07-06 23:00] VITALS: BP 106/50
[2019-07-07] MEDS: BACLOFEN 10 MG TABLET GT SCH ×5 (00:26→23:18)
[2019-07-07] MEDS: ARGININE/GLUTAMINE/CALCIUM BMB 1 EACH POWD.PACK GT SCH ×2 (05:19→17:49)
[2019-07-07] MEDS: PROTEIN SUPPLEMENT (PROSTAT) 30 ML LIQUID GT SCH ×3 (05:19→21:03)
[2019-07-07] MEDS: OMEPRAZOLE 20 MG CAPSULE.DR GT SCH (05:19)
[2019-07-07 08:02] VITALS: BP 101/62
[2019-07-07] MEDS: HYDROGEN PEROXIDE 3% 118 ML BOTTLE TP SCH ×2 (09:00→20:30)
[2019-07-07] MEDS: SERTRALINE 25 MG GT SCH (09:00)
[2019-07-07] MEDS: ACIDOPHILUS/BULGARICUS CHEW TAB GT SCH ×2 (09:00→20:47)
[2019-07-07] MEDS: COD LIVER OIL/ZINC OXIDE OINT 113 GM TUBE TP SCH ×2 (09:00→20:48)
[2019-07-07] MEDS: ACETAMINOPHEN 650 MG/20.3 ML LIQUID UDC GT SCH (09:00)
[2019-07-07] MEDS: THERAHONEY GEL 1.5 OZ TUBE TOP SCH (09:00)
[2019-07-07] MEDS: JEVITY 1.2 1000 ML LIQUID GT PRN (16:16)
[2019-07-07 20:30] VITALS: BP 111/59
[2019-07-07] MEDS: MULTIVIT, IRON, MIN NO. 8, FA TABLET GT SCH (20:47)
[2019-07-07] MEDS: SIMVASTATIN 10 MG TABLET GT SCH (20:47)
[2019-07-07] MEDS: ASCORBIC ACID 500 MG TABLET GT SCH (20:47)
[2019-07-08] MEDS: PROTEIN SUPPLEMENT (PROSTAT) 30 ML LIQUID GT SCH ×3 (05:05→22:15)
[2019-07-08] MEDS: BACLOFEN 10 MG TABLET GT SCH ×3 (05:05→17:06)
[2019-07-08] MEDS: OMEPRAZOLE 20 MG CAPSULE.DR GT SCH (05:05)
[2019-07-08] MEDS: ARGININE/GLUTAMINE/CALCIUM BMB 1 EACH POWD.PACK GT SCH ×2 (05:05→17:06)
[2019-07-08 08:00] VITALS: BP 103/49
[2019-07-08] MEDS: ACETAMINOPHEN 650 MG/20.3 ML LIQUID UDC GT SCH (08:47)
[2019-07-08] MEDS: ACIDOPHILUS/BULGARICUS CHEW TAB GT SCH ×2 (08:48→21:00)
[2019-07-08] MEDS: SERTRALINE 25 MG GT SCH (08:48)
[2019-07-08] MEDS: COD LIVER OIL/ZINC OXIDE OINT 113 GM TUBE TP SCH ×2 (09:30→21:00)
[2019-07-08] MEDS: THERAHONEY GEL 1.5 OZ TUBE TOP SCH (09:30)
[2019-07-08] MEDS: HYDROGEN PEROXIDE 3% 118 ML BOTTLE TP PRN (10:01)
[2019-07-08] MEDS: JEVITY 1.2 1000 ML LIQUID GT PRN (17:06)
[2019-07-08 19:48] VITALS: BP 99/48
--- NOTE | 2019-07-08 20:00 | NUR ---
VSS 99.8-108-18 BP 99/48. SATS 95%. PATIENT NONVERBAL BUT APPEARS ALERT. SHILEY #4 TACHED TO 28% MIST MASK. SKIN WARM, DRY, AND INTACT WITH STAGE 2 TO SACRUM. DRESSING CHANGE DONE BY APPLYING THERAHONEY TO WOUND AND MEPILEX. ABDOMEN SOFTLY DISTENDED WITH +BOWEL SOUNDS. GTUBE INTACT AND PATENT FOR JEVITY 1.2 @ 45 CC/HOUR--RESIDUAL=0CC---FEEDING CONTINUES WITHOUT INTERRUPTION. INCONTINENT OF BOWEL AND PATIENT HAS AN INDWELLING RIVERO CATH FOR QUANTITY SUFFICIENT OF A CLEAR YELLOW URINE. NO SIGNS OF ACUTE CARDIAC/RESPIRATORY DISTRESS OR SUPPRESSION.
[2019-07-08] MEDS: SIMVASTATIN 10 MG TABLET GT SCH (21:00)
[2019-07-08] MEDS: MULTIVIT, IRON, MIN NO. 8, FA TABLET GT SCH (21:00)
[2019-07-08] MEDS: ASCORBIC ACID 500 MG TABLET GT SCH (21:00)
[2019-07-08] MEDS: HYDROGEN PEROXIDE 3% 118 ML BOTTLE TP SCH (21:09)
[2019-07-09] MEDS: BACLOFEN 10 MG TABLET GT SCH ×4 (00:35→17:08)
[2019-07-09] MEDS: ARGININE/GLUTAMINE/CALCIUM BMB 1 EACH POWD.PACK GT SCH ×2 (06:26→17:08)
[2019-07-09] MEDS: OMEPRAZOLE 20 MG CAPSULE.DR GT SCH (06:27)
[2019-07-09] MEDS: PROTEIN SUPPLEMENT (PROSTAT) 30 ML LIQUID GT SCH ×3 (06:27→22:07)
[2019-07-09 08:00] VITALS: BP 125/62
[2019-07-09] MEDS: ACIDOPHILUS/BULGARICUS CHEW TAB GT SCH ×2 (08:47→21:00)
[2019-07-09] MEDS: SERTRALINE 25 MG GT SCH (08:47)
[2019-07-09] MEDS: COD LIVER OIL/ZINC OXIDE OINT 113 GM TUBE TP SCH ×2 (08:47→21:00)
[2019-07-09] MEDS: ACETAMINOPHEN 650 MG/20.3 ML LIQUID UDC GT SCH (08:47)
[2019-07-09] MEDS: THERAHONEY GEL 1.5 OZ TUBE TOP SCH (08:47)
[2019-07-09] MEDS: HYDROGEN PEROXIDE 3% 118 ML BOTTLE TP SCH ×2 (09:00→20:54)
[2019-07-09 20:00] VITALS: BP 108/48
[2019-07-09] MEDS: SIMVASTATIN 10 MG TABLET GT SCH (21:00)
[2019-07-09] MEDS: ASCORBIC ACID 500 MG TABLET GT SCH (21:00)
[2019-07-09] MEDS: MULTIVIT, IRON, MIN NO. 8, FA TABLET GT SCH (21:00)
[2019-07-09] MEDS: TEMAZEPAM 7.5 MG CAPSULE GT PRN (22:08)
[2019-07-09] MEDS: JEVITY 1.2 1000 ML LIQUID GT PRN (22:16)
[2019-07-10] MEDS: BACLOFEN 10 MG TABLET GT SCH ×4 (00:29→18:47)
[2019-07-10] MEDS: ARGININE/GLUTAMINE/CALCIUM BMB 1 EACH POWD.PACK GT SCH ×2 (05:30→18:47)
[2019-07-10] MEDS: OMEPRAZOLE 20 MG CAPSULE.DR GT SCH (05:31)
[2019-07-10] MEDS: PROTEIN SUPPLEMENT (PROSTAT) 30 ML LIQUID GT SCH ×3 (05:31→22:06)
[2019-07-10 08:00] VITALS: BP 103/52
[2019-07-10] MEDS: HYDROGEN PEROXIDE 3% 118 ML BOTTLE TP SCH ×2 (08:02→20:54)
[2019-07-10] MEDS: SERTRALINE 25 MG GT SCH (08:42)
[2019-07-10] MEDS: ACETAMINOPHEN 650 MG/20.3 ML LIQUID UDC GT SCH (08:42)
[2019-07-10] MEDS: ACIDOPHILUS/BULGARICUS CHEW TAB GT SCH ×2 (08:42→21:00)
[2019-07-10] MEDS: COD LIVER OIL/ZINC OXIDE OINT 113 GM TUBE TP SCH ×2 (08:43→21:00)
[2019-07-10] MEDS: THERAHONEY GEL 1.5 OZ TUBE TOP SCH (08:43)
[2019-07-10 20:03] VITALS: BP 115/64
[2019-07-10] MEDS: ASCORBIC ACID 500 MG TABLET GT SCH (21:00)
[2019-07-10] MEDS: SIMVASTATIN 10 MG TABLET GT SCH (21:00)
[2019-07-10] MEDS: MULTIVIT, IRON, MIN NO. 8, FA TABLET GT SCH (21:00)
[2019-07-10] MEDS: JEVITY 1.2 1000 ML LIQUID GT PRN (22:19)
[2019-07-11] MEDS: BACLOFEN 10 MG TABLET GT SCH ×4 (00:07→17:33)
[2019-07-11] MEDS: PROTEIN SUPPLEMENT (PROSTAT) 30 ML LIQUID GT SCH ×3 (06:07→22:02)
[2019-07-11] MEDS: ARGININE/GLUTAMINE/CALCIUM BMB 1 EACH POWD.PACK GT SCH ×2 (06:07→17:33)
[2019-07-11] MEDS: OMEPRAZOLE 20 MG CAPSULE.DR GT SCH (06:07)
[2019-07-11 08:00] VITALS: BP 121/64
[2019-07-11] MEDS: HYDROGEN PEROXIDE 3% 118 ML BOTTLE TP SCH ×2 (09:00→21:22)
[2019-07-11] MEDS: ACIDOPHILUS/BULGARICUS CHEW TAB GT SCH ×2 (09:06→21:00)
[2019-07-11] MEDS: SERTRALINE 25 MG GT SCH (09:06)
[2019-07-11] MEDS: ACETAMINOPHEN 650 MG/20.3 ML LIQUID UDC GT SCH (09:06)
[2019-07-11] MEDS: COD LIVER OIL/ZINC OXIDE OINT 113 GM TUBE TP SCH ×2 (09:06→21:00)
[2019-07-11] MEDS: THERAHONEY GEL 1.5 OZ TUBE TOP SCH (09:06)
--- NOTE | 2019-07-11 10:27 | NUR ---
DOROTHY received a phone call from Anitha at Dr. Rodriguez's office [phone], stating that patient's dental cleaning needed to be rescheduled from 07/17/2019 to 07/24/2019. DOROTHY expressed agreement. DOROTHY informed patient of the date change.
--- NOTE | 2019-07-11 14:00 | NUR ---
SEEN BY RAKEL CASTAÑEDA AND WITH NNO.
[2019-07-11 20:23] VITALS: BP 102/67
[2019-07-11] MEDS: SIMVASTATIN 10 MG TABLET GT SCH (21:00)
[2019-07-11] MEDS: ASCORBIC ACID 500 MG TABLET GT SCH (21:00)
[2019-07-11] MEDS: MULTIVIT, IRON, MIN NO. 8, FA TABLET GT SCH (21:00)
[2019-07-11] MEDS: JEVITY 1.2 1000 ML LIQUID GT PRN (22:11)
[2019-07-12] MEDS: BACLOFEN 10 MG TABLET GT SCH ×5 (06:00→23:02)
[2019-07-12] MEDS: ARGININE/GLUTAMINE/CALCIUM BMB 1 EACH POWD.PACK GT SCH ×2 (06:00→17:41)
[2019-07-12] MEDS: OMEPRAZOLE 20 MG CAPSULE.DR GT SCH (06:00)
[2019-07-12] MEDS: PROTEIN SUPPLEMENT (PROSTAT) 30 ML LIQUID GT SCH ×3 (06:00→21:21)
[2019-07-12] MEDS: SERTRALINE 25 MG GT SCH (08:37)
[2019-07-12] MEDS: ACETAMINOPHEN 650 MG/20.3 ML LIQUID UDC GT SCH (08:37)
[2019-07-12] MEDS: COD LIVER OIL/ZINC OXIDE OINT 113 GM TUBE TP SCH ×2 (08:37→21:21)
[2019-07-12] MEDS: ACIDOPHILUS/BULGARICUS CHEW TAB GT SCH ×2 (08:37→21:20)
[2019-07-12] MEDS: THERAHONEY GEL 1.5 OZ TUBE TOP SCH (08:37)
[2019-07-12] MEDS: HYDROGEN PEROXIDE 3% 118 ML BOTTLE TP SCH ×2 (09:05→20:33)
[2019-07-12 20:56] VITALS: BP 108/68
[2019-07-12] MEDS: ASCORBIC ACID 500 MG TABLET GT SCH (21:20)
[2019-07-12] MEDS: TEMAZEPAM 7.5 MG CAPSULE GT PRN (21:20)
[2019-07-12] MEDS: MULTIVIT, IRON, MIN NO. 8, FA TABLET GT SCH (21:20)
[2019-07-12] MEDS: SIMVASTATIN 10 MG TABLET GT SCH (21:21)
[2019-07-12] MEDS: JEVITY 1.2 1000 ML LIQUID GT PRN (21:30)
[2019-07-13] MEDS: BACLOFEN 10 MG TABLET GT SCH ×4 (05:40→23:08)
[2019-07-13] MEDS: PROTEIN SUPPLEMENT (PROSTAT) 30 ML LIQUID GT SCH ×3 (05:40→22:15)
[2019-07-13] MEDS: ARGININE/GLUTAMINE/CALCIUM BMB 1 EACH POWD.PACK GT SCH ×2 (05:40→18:15)
[2019-07-13] MEDS: OMEPRAZOLE 20 MG CAPSULE.DR GT SCH (05:40)
[2019-07-13 08:30] VITALS: BP 115/49
[2019-07-13] MEDS: ACETAMINOPHEN 650 MG/20.3 ML LIQUID UDC GT SCH (08:41)
[2019-07-13] MEDS: THERAHONEY GEL 1.5 OZ TUBE TOP SCH (08:42)
[2019-07-13] MEDS: ACIDOPHILUS/BULGARICUS CHEW TAB GT SCH ×2 (08:42→21:00)
[2019-07-13] MEDS: SERTRALINE 25 MG GT SCH (08:42)
[2019-07-13] MEDS: COD LIVER OIL/ZINC OXIDE OINT 113 GM TUBE TP SCH ×2 (08:42→21:00)
[2019-07-13] MEDS: HYDROGEN PEROXIDE 3% 118 ML BOTTLE TP SCH ×2 (09:00→21:00)
[2019-07-13 19:57] VITALS: BP 112/68
[2019-07-13] MEDS: ASCORBIC ACID 500 MG TABLET GT SCH (21:00)
[2019-07-13] MEDS: MULTIVIT, IRON, MIN NO. 8, FA TABLET GT SCH (21:00)
[2019-07-13] MEDS: SIMVASTATIN 10 MG TABLET GT SCH (21:00)
[2019-07-13] MEDS: TEMAZEPAM 7.5 MG CAPSULE GT PRN (22:15)
[2019-07-13] MEDS: JEVITY 1.2 1000 ML LIQUID GT PRN (22:23)
[2019-07-14] MEDS: OMEPRAZOLE 20 MG CAPSULE.DR GT SCH (05:58)
[2019-07-14] MEDS: ARGININE/GLUTAMINE/CALCIUM BMB 1 EACH POWD.PACK GT SCH ×2 (05:58→17:09)
[2019-07-14] MEDS: BACLOFEN 10 MG TABLET GT SCH ×4 (05:58→23:26)
[2019-07-14] MEDS: PROTEIN SUPPLEMENT (PROSTAT) 30 ML LIQUID GT SCH ×3 (05:58→21:15)
[2019-07-14 08:00] VITALS: BP 95/49
[2019-07-14] MEDS: HYDROGEN PEROXIDE 3% 118 ML BOTTLE TP SCH ×2 (08:01→20:49)
[2019-07-14] MEDS: ACETAMINOPHEN 650 MG/20.3 ML LIQUID UDC GT SCH (08:31)
[2019-07-14] MEDS: SERTRALINE 25 MG GT SCH (08:31)
[2019-07-14] MEDS: COD LIVER OIL/ZINC OXIDE OINT 113 GM TUBE TP SCH ×2 (08:31→21:15)
[2019-07-14] MEDS: ACIDOPHILUS/BULGARICUS CHEW TAB GT SCH ×2 (08:31→21:15)
[2019-07-14 19:40] VITALS: BP 108/48
[2019-07-14] MEDS: ASCORBIC ACID 500 MG TABLET GT SCH (21:15)
[2019-07-14] MEDS: SIMVASTATIN 10 MG TABLET GT SCH (21:15)
[2019-07-14] MEDS: MULTIVIT, IRON, MIN NO. 8, FA TABLET GT SCH (21:15)
[2019-07-15] MEDS: ARGININE/GLUTAMINE/CALCIUM BMB 1 EACH POWD.PACK GT SCH ×2 (05:40→17:42)
[2019-07-15] MEDS: BACLOFEN 10 MG TABLET GT SCH ×4 (05:40→23:21)
[2019-07-15] MEDS: OMEPRAZOLE 20 MG CAPSULE.DR GT SCH (05:40)
[2019-07-15] MEDS: PROTEIN SUPPLEMENT (PROSTAT) 30 ML LIQUID GT SCH ×3 (05:40→22:32)
[2019-07-15 08:00] VITALS: BP 107/68
[2019-07-15] MEDS: ACETAMINOPHEN 650 MG/20.3 ML LIQUID UDC GT SCH (08:50)
[2019-07-15] MEDS: ACIDOPHILUS/BULGARICUS CHEW TAB GT SCH ×2 (08:50→21:00)
[2019-07-15] MEDS: COD LIVER OIL/ZINC OXIDE OINT 113 GM TUBE TP SCH ×2 (08:51→21:00)
[2019-07-15] MEDS: SERTRALINE 25 MG GT SCH (08:51)
[2019-07-15] MEDS: HYDROGEN PEROXIDE 3% 118 ML BOTTLE TP SCH ×2 (09:58→21:09)
--- NOTE | 2019-07-15 14:01 | NUR ---
SW notified patient's daughter Ludmila via email that the next IDT meeting for the patient has been scheduled for 07/23/2019 at 11am.
[2019-07-15] MEDS: JEVITY 1.2 1000 ML LIQUID GT PRN (17:42)
[2019-07-15 20:00] VITALS: BP 118/55
[2019-07-15] MEDS: MULTIVIT, IRON, MIN NO. 8, FA TABLET GT SCH (21:00)
[2019-07-15] MEDS: ASCORBIC ACID 500 MG TABLET GT SCH (21:00)
[2019-07-15] MEDS: SIMVASTATIN 10 MG TABLET GT SCH (21:00)
[2019-07-15] MEDS: TEMAZEPAM 7.5 MG CAPSULE GT PRN (23:30)
[2019-07-16] MEDS: OMEPRAZOLE 20 MG CAPSULE.DR GT SCH (06:17)
[2019-07-16] MEDS: PROTEIN SUPPLEMENT (PROSTAT) 30 ML LIQUID GT SCH ×3 (06:17→21:14)
[2019-07-16] MEDS: ARGININE/GLUTAMINE/CALCIUM BMB 1 EACH POWD.PACK GT SCH ×2 (06:17→17:16)
[2019-07-16] MEDS: BACLOFEN 10 MG TABLET GT SCH ×4 (06:17→23:16)
[2019-07-16 08:00] VITALS: BP 100/46
[2019-07-16] MEDS: HYDROGEN PEROXIDE 3% 118 ML BOTTLE TP SCH ×2 (09:00→20:41)
[2019-07-16] MEDS: ACIDOPHILUS/BULGARICUS CHEW TAB GT SCH ×2 (09:05→21:14)
[2019-07-16] MEDS: COD LIVER OIL/ZINC OXIDE OINT 113 GM TUBE TP SCH ×2 (09:05→21:14)
[2019-07-16] MEDS: SERTRALINE 25 MG GT SCH (09:05)
[2019-07-16] MEDS: ACETAMINOPHEN 650 MG/20.3 ML LIQUID UDC GT SCH (09:05)
[2019-07-16] MEDS: JEVITY 1.2 1000 ML LIQUID GT PRN (17:16)
[2019-07-16 19:36] VITALS: BP 109/56
[2019-07-16] MEDS: MULTIVIT, IRON, MIN NO. 8, FA TABLET GT SCH (21:14)
[2019-07-16] MEDS: ASCORBIC ACID 500 MG TABLET GT SCH (21:14)
[2019-07-16] MEDS: SIMVASTATIN 10 MG TABLET GT SCH (21:14)
[2019-07-17] MEDS: PROTEIN SUPPLEMENT (PROSTAT) 30 ML LIQUID GT SCH ×3 (05:22→21:03)
[2019-07-17] MEDS: BACLOFEN 10 MG TABLET GT SCH ×3 (05:22→17:37)
[2019-07-17] MEDS: ARGININE/GLUTAMINE/CALCIUM BMB 1 EACH POWD.PACK GT SCH ×2 (05:22→17:37)
[2019-07-17] MEDS: OMEPRAZOLE 20 MG CAPSULE.DR GT SCH (05:22)
[2019-07-17] MEDS: COD LIVER OIL/ZINC OXIDE OINT 113 GM TUBE TP SCH ×2 (08:52→20:06)
[2019-07-17] MEDS: SERTRALINE 25 MG GT SCH (08:52)
[2019-07-17] MEDS: ACETAMINOPHEN 650 MG/20.3 ML LIQUID UDC GT SCH (08:52)
[2019-07-17] MEDS: ACIDOPHILUS/BULGARICUS CHEW TAB GT SCH ×2 (08:52→20:05)
[2019-07-17] MEDS: HYDROGEN PEROXIDE 3% 118 ML BOTTLE TP SCH ×2 (09:00→21:33)
[2019-07-17 10:47] VITALS: BP 111/51
--- NOTE | 2019-07-17 11:21 | NUR ---
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 DOROTHY notified Fabricio Leone in Accounting that the form was received by this SW, and that SW would be forwarding the form to him via interoffice mail. DOROTHY put the form in the interoffice mail today, addressed to Fabricio Leone.
[2019-07-17 20:00] VITALS: BP 105/47
[2019-07-17] MEDS: MULTIVIT, IRON, MIN NO. 8, FA TABLET GT SCH (20:05)
[2019-07-17] MEDS: ASCORBIC ACID 500 MG TABLET GT SCH (20:06)
[2019-07-17] MEDS: SIMVASTATIN 10 MG TABLET GT SCH (20:06)
[2019-07-18] MEDS: ARGININE/GLUTAMINE/CALCIUM BMB 1 EACH POWD.PACK GT SCH ×2 (05:20→18:03)
[2019-07-18] MEDS: OMEPRAZOLE 20 MG CAPSULE.DR GT SCH (05:20)
[2019-07-18] MEDS: BACLOFEN 10 MG TABLET GT SCH ×5 (05:20→23:01)
[2019-07-18] MEDS: PROTEIN SUPPLEMENT (PROSTAT) 30 ML LIQUID GT SCH ×3 (05:20→21:56)
[2019-07-18] MEDS: ACETAMINOPHEN 650 MG/20.3 ML LIQUID UDC GT SCH (09:01)
[2019-07-18] MEDS: SERTRALINE 25 MG GT SCH (09:02)
[2019-07-18] MEDS: ACIDOPHILUS/BULGARICUS CHEW TAB GT SCH ×2 (09:02→21:55)
[2019-07-18] MEDS: COD LIVER OIL/ZINC OXIDE OINT 113 GM TUBE TP SCH ×2 (09:02→21:56)
[2019-07-18] MEDS: HYDROGEN PEROXIDE 3% 118 ML BOTTLE TP SCH ×2 (09:30→21:06)
[2019-07-18] MEDS: THERAHONEY GEL 1.5 OZ TUBE TOP SCH (09:45)
[2019-07-18 10:47] VITALS: BP 111/58
[2019-07-18] MEDS: JEVITY 1.2 1000 ML LIQUID GT PRN (18:06)
[2019-07-18 19:57] VITALS: BP 103/57
[2019-07-18] MEDS: MULTIVIT, IRON, MIN NO. 8, FA TABLET GT SCH (21:55)
[2019-07-18] MEDS: ASCORBIC ACID 500 MG TABLET GT SCH (21:56)
[2019-07-18] MEDS: SIMVASTATIN 10 MG TABLET GT SCH (21:56)
[2019-07-18] MEDS: TEMAZEPAM 7.5 MG CAPSULE GT PRN (22:55)
[2019-07-18] MEDS: ACETAMINOPHEN 650 MG/20 ML UDC- SA PATIENTS-PAIN ONLY GT PRN (23:01)
[2019-07-19] MEDS: PROTEIN SUPPLEMENT (PROSTAT) 30 ML LIQUID GT SCH ×3 (06:22→21:01)
[2019-07-19] MEDS: OMEPRAZOLE 20 MG CAPSULE.DR GT SCH (06:22)
[2019-07-19] MEDS: ARGININE/GLUTAMINE/CALCIUM BMB 1 EACH POWD.PACK GT SCH ×2 (06:22→17:21)
[2019-07-19] MEDS: BACLOFEN 10 MG TABLET GT SCH ×4 (06:22→23:56)
[2019-07-19] MEDS: ACIDOPHILUS/BULGARICUS CHEW TAB GT SCH ×2 (08:01→21:00)
[2019-07-19] MEDS: THERAHONEY GEL 1.5 OZ TUBE TOP SCH (08:01)
[2019-07-19] MEDS: SERTRALINE 25 MG GT SCH (08:01)
[2019-07-19] MEDS: COD LIVER OIL/ZINC OXIDE OINT 113 GM TUBE TP SCH ×2 (08:01→21:01)
[2019-07-19] MEDS: ACETAMINOPHEN 650 MG/20.3 ML LIQUID UDC GT SCH (08:01)
[2019-07-19] MEDS: HYDROGEN PEROXIDE 3% 118 ML BOTTLE TP SCH ×2 (09:00→20:30)
[2019-07-19 11:25] VITALS: BP 118/60
[2019-07-19 19:50] VITALS: BP 105/51
[2019-07-19] MEDS: MULTIVIT, IRON, MIN NO. 8, FA TABLET GT SCH (21:00)
[2019-07-19] MEDS: ASCORBIC ACID 500 MG TABLET GT SCH (21:00)
[2019-07-19] MEDS: SIMVASTATIN 10 MG TABLET GT SCH (21:00)
[2019-07-19] MEDS: TEMAZEPAM 7.5 MG CAPSULE GT PRN (21:03)
[2019-07-20] MEDS: PROTEIN SUPPLEMENT (PROSTAT) 30 ML LIQUID GT SCH ×3 (05:00→21:07)
[2019-07-20] MEDS: ARGININE/GLUTAMINE/CALCIUM BMB 1 EACH POWD.PACK GT SCH ×2 (05:00→17:20)
[2019-07-20] MEDS: BACLOFEN 10 MG TABLET GT SCH ×3 (05:00→17:20)
[2019-07-20] MEDS: OMEPRAZOLE 20 MG CAPSULE.DR GT SCH (05:00)
[2019-07-20 08:00] VITALS: BP 107/59
[2019-07-20] MEDS: SERTRALINE 25 MG GT SCH (08:41)
[2019-07-20] MEDS: ACETAMINOPHEN 650 MG/20.3 ML LIQUID UDC GT SCH (08:41)
[2019-07-20] MEDS: COD LIVER OIL/ZINC OXIDE OINT 113 GM TUBE TP SCH ×2 (08:41→21:07)
[2019-07-20] MEDS: THERAHONEY GEL 1.5 OZ TUBE TOP SCH (08:41)
[2019-07-20] MEDS: ACIDOPHILUS/BULGARICUS CHEW TAB GT SCH ×2 (08:41→21:07)
[2019-07-20] MEDS: HYDROGEN PEROXIDE 3% 118 ML BOTTLE TP SCH ×2 (09:00→21:34)
[2019-07-20 20:49] VITALS: BP 101/64
[2019-07-20] MEDS: SIMVASTATIN 10 MG TABLET GT SCH (21:07)
[2019-07-20] MEDS: MULTIVIT, IRON, MIN NO. 8, FA TABLET GT SCH (21:07)
[2019-07-20] MEDS: ASCORBIC ACID 500 MG TABLET GT SCH (21:07)
[2019-07-21] MEDS: BACLOFEN 10 MG TABLET GT SCH ×4 (00:51→17:16)
[2019-07-21] MEDS: JEVITY 1.2 1000 ML LIQUID GT PRN (05:03)
[2019-07-21] MEDS: PROTEIN SUPPLEMENT (PROSTAT) 30 ML LIQUID GT SCH ×3 (05:03→21:30)
[2019-07-21] MEDS: OMEPRAZOLE 20 MG CAPSULE.DR GT SCH (05:03)
[2019-07-21] MEDS: ARGININE/GLUTAMINE/CALCIUM BMB 1 EACH POWD.PACK GT SCH ×2 (05:03→17:16)
[2019-07-21 08:03] VITALS: BP 100/59
[2019-07-21] MEDS: SERTRALINE 25 MG GT SCH (08:49)
[2019-07-21] MEDS: ACETAMINOPHEN 650 MG/20.3 ML LIQUID UDC GT SCH (08:49)
[2019-07-21] MEDS: THERAHONEY GEL 1.5 OZ TUBE TOP SCH (08:49)
[2019-07-21] MEDS: ACIDOPHILUS/BULGARICUS CHEW TAB GT SCH ×2 (08:49→21:29)
[2019-07-21] MEDS: COD LIVER OIL/ZINC OXIDE OINT 113 GM TUBE TP SCH ×2 (08:49→21:30)
[2019-07-21] MEDS: HYDROGEN PEROXIDE 3% 118 ML BOTTLE TP SCH ×2 (09:00→20:31)
--- NOTE | 2019-07-21 17:44 | NUR ---
Pt is warm to touch,vital signs recheck temp 102.6 axillary,Cassidy Bender DNP aware with new orders noted.
[2019-07-21 18:23] LABS: BASOPHILS # (AUTO) 0.1 K/uL (0.0-8.0); BASOPHILS % (AUTO) 0.6 % (0.0-2.0); EOSINOPHILS # (AUTO) 0.2 K/uL (0.0-0.7); EOSINOPHILS % (AUTO) 2.1 % (0.0-7.0); HEMATOCRIT 44.4 % (31.2-41.9); HEMOGLOBIN 14.4 g/dL (10.9-14.3); LYMPHOCYTES # (AUTO) 2.1 K/uL (20.0-40.0); LYMPHOCYTES % (AUTO) 20.6 % (20.5-51.5); MEAN CORPUSCULAR HEMOGLOBIN 30.1 uug (24.7-32.8); MEAN CORPUSCULAR HGB CONC 33 g/dL (32.3-35.6); MEAN CORPUSCULAR VOLUME 92.7 fL (75.5-95.3); MONOCYTES # (AUTO) 0.9 K/uL (2.0-10.0); MONOCYTES % (AUTO) 8.9 % (0.0-11.0); NEUTROPHILS # (AUTO) 6.7 K/uL (1.8-8.9); NEUTROPHILS % (AUTO) 67.8 % (38.5-71.5); PLATELET COUNT (AUTO) 149 K/uL (179-408); RED BLOOD CELL COUNT(AUTO) 4.79 MIL/uL (3.63-4.92); WHITE BLOOD COUNT (AUTO) 9.9 K/uL (3.8-11.8)
[2019-07-21 18:36] LABS: CREATININE 0.8 mg/dL (0.6-1.3); POTASSIUM 3.9 mmol/L (3.5-5.1)
[2019-07-21 18:52] LABS: *BILIRUBIN,URIN NEGATIVE (NEGATIVE); *BLOOD, URINE 3+ (NEGATIVE); *COLOR,URINE YELLOW (YELLOW); *KETONES,URINE NEGATIVE (NEGATIVE); *UROBILINOGEN,URINE 0.2 E.U./dl (NORMAL); LEUKOCYTE ESTERASE ,URINE 2+ (NEGATIVE); NITRITE, URINE NEGATIVE (NEGATIVE); UGLUCOSE NEGATIVE (NEGATIVE)
[2019-07-21 18:57] LABS: PH,URINE >9.0 (5.0-8.0)
[2019-07-21 18:59] LABS: RBC,URINE 20-50 /HPF (0-3)
[2019-07-21 19:00] LABS: *CLARITY,URINE SLIGHTLY CLOUDY (CLEAR); BACTERIA,URINE MODERATE /HPF (NONE SEEN); SQUAMOUS EPITHELIAL CELL,UR FEW /HPF (NONE SEEN)
--- NOTE | 2019-07-21 19:40 | NUR ---
New orders from [facility] to give vancomycin 1 gm every 12 hours ,zosyn was discontinue due to previous allergic reaction and Merren was ordered,no previous allergic reaction to Merren.
[2019-07-21 20:20] VITALS: BP 118/59
[2019-07-21] MEDS: VANCOMYCIN IV 1,000 MG in IV DEXTROSE 5% 250 ML IV SCH (20:47)
--- NOTE | 2019-07-21 21:25 | NUR ---
pt start on vancomycin 1 gm as ordered,no adverse reaction noted.on cooling measures.
[2019-07-21] MEDS: MULTIVIT, IRON, MIN NO. 8, FA TABLET GT SCH (21:29)
[2019-07-21 21:30] LABS: BILIRUBIN,DIRECT 0.1 mg/dL (0.0-0.2); BILIRUBIN,TOTAL 0.6 mg/dL (0.2-1.0)
[2019-07-21] MEDS: SIMVASTATIN 10 MG TABLET GT SCH (21:30)
[2019-07-21] MEDS: ASCORBIC ACID 500 MG TABLET GT SCH (21:30)
[2019-07-21] MEDS: MEROPENEM 0.5 G in IV NORMAL SALINE 50 ML IV SCH (22:00)
[2019-07-22] MEDS: BACLOFEN 10 MG TABLET GT SCH ×4 (00:01→17:11)
--- NOTE | 2019-07-22 00:45 | NUR ---
On Vancomycin and Merrem ivatb No adverse reaction noted,no rashes o redness noted.iv on the R hand intact.
[2019-07-22] MEDS: MEROPENEM 0.5 G in IV NORMAL SALINE 50 ML IV SCH ×3 (05:25→21:49)
[2019-07-22] MEDS: ARGININE/GLUTAMINE/CALCIUM BMB 1 EACH POWD.PACK GT SCH ×2 (05:47→17:11)
[2019-07-22] MEDS: PROTEIN SUPPLEMENT (PROSTAT) 30 ML LIQUID GT SCH ×3 (05:47→21:29)
[2019-07-22] MEDS: OMEPRAZOLE 20 MG CAPSULE.DR GT SCH (05:47)
[2019-07-22] MEDS: JEVITY 1.2 1000 ML LIQUID GT PRN (07:00)
[2019-07-22 08:03] VITALS: BP 105/55
[2019-07-22] MEDS: SERTRALINE 25 MG GT SCH (08:09)
[2019-07-22] MEDS: ACETAMINOPHEN 650 MG/20.3 ML LIQUID UDC GT SCH (08:09)
[2019-07-22] MEDS: ACIDOPHILUS/BULGARICUS CHEW TAB GT SCH ×2 (08:09→21:29)
[2019-07-22] MEDS: HYDROGEN PEROXIDE 3% 118 ML BOTTLE TP SCH ×2 (08:10→21:00)
[2019-07-22] MEDS: VANCOMYCIN IV 1,000 MG in IV DEXTROSE 5% 250 ML IV SCH (08:54)
[2019-07-22] MEDS: COD LIVER OIL/ZINC OXIDE OINT 113 GM TUBE TP SCH ×2 (09:02→21:29)
[2019-07-22] MEDS: THERAHONEY GEL 1.5 OZ TUBE TOP SCH (09:02)
--- NOTE | 2019-07-22 14:37 | NUR ---
Vancomycin Iv d/c per Morgan Weems.
[2019-07-22] MEDS: ACETAMINOPHEN 650 MG/20 ML UDC- SA PATIENTS-PAIN ONLY GT PRN (17:00)
[2019-07-22 21:11] VITALS: BP 110/65
[2019-07-22] MEDS: SIMVASTATIN 10 MG TABLET GT SCH (21:29)
[2019-07-22] MEDS: ASCORBIC ACID 500 MG TABLET GT SCH (21:29)
[2019-07-22] MEDS: MULTIVIT, IRON, MIN NO. 8, FA TABLET GT SCH (21:29)
[2019-07-23] MEDS: JEVITY 1.2 1000 ML LIQUID GT PRN (03:43)
[2019-07-23] MEDS: PROTEIN SUPPLEMENT (PROSTAT) 30 ML LIQUID GT SCH ×3 (05:42→21:57)
[2019-07-23] MEDS: OMEPRAZOLE 20 MG CAPSULE.DR GT SCH (05:42)
[2019-07-23] MEDS: ARGININE/GLUTAMINE/CALCIUM BMB 1 EACH POWD.PACK GT SCH ×2 (05:42→17:41)
[2019-07-23] MEDS: BACLOFEN 10 MG TABLET GT SCH ×4 (05:42→17:41)
[2019-07-23] MEDS: MEROPENEM 0.5 G in IV NORMAL SALINE 50 ML IV SCH ×3 (05:55→21:58)
[2019-07-23 08:03] VITALS: BP 105/51
[2019-07-23] MEDS: SERTRALINE 25 MG GT SCH (08:20)
[2019-07-23] MEDS: ACETAMINOPHEN 650 MG/20.3 ML LIQUID UDC GT SCH (08:20)
[2019-07-23] MEDS: ACIDOPHILUS/BULGARICUS CHEW TAB GT SCH ×2 (08:20→21:56)
[2019-07-23] MEDS: COD LIVER OIL/ZINC OXIDE OINT 113 GM TUBE TP SCH ×2 (09:04→21:57)
[2019-07-23] MEDS: THERAHONEY GEL 1.5 OZ TUBE TOP SCH (09:04)
[2019-07-23] MEDS: HYDROGEN PEROXIDE 3% 118 ML BOTTLE TP SCH ×2 (09:44→21:10)
--- NOTE | 2019-07-23 13:58 | NUR ---
Pharmacy Update from Today's 07/23/19 IDT meeting VS: Temp 98.6 BP 105/51 HR 103 LABS: (from 07/21/19) Wbc 9.9 H/H 14.4/44.4 Plt 149 Na 147 K 3.9 Cl 109 CO2 30 BUN/SCr 35/0.8 BS 138 Ca 9.2 MEDICATION USE REVIEWED: > Pt not on any anti-seizure medications > Pt on Restoril 7.5mg HS PRN + 7.5mg PRN one hr later since last GDR on 04/03/19. Monitored hours of sleep in Jun: 2hrx1, 7x16, 8x14. PRN used x11 and repeat x2 in Jun, about the same usage as previous months. No issues noted per staff. > Pt continues on zoloft 25mg daily after failed GDR as of 05/18/19 for depression m/b sadness (pt able to verbalize/mouth in response). Patient affirmed 0 episodes sadness in Jun. No side effects noted per pt or staff. Will follow > PRN MED USAGE: (Jun) Tylenol for pain/temp used x0 Artificial Tears used x1 [place] used x1 Benadryl used x1 NEW ORDERS NOTED: > Benadryl 25mg q6hr prn added for general redness/itching (not ADR) > Merrem 06/30-07/06 and Vanco 06/30-07/03 for elevated temp > Merrem/Vanco restarted 07/21 for temp 102.6, elevated LA, wbc 11.9. Bcx, sputum, UCx pending (gram neg rods) as of 07/21. Vanco d/c'd 07/22 after UCx pending resulted gram neg rods Patient reviewed and discussed in detail at IDT with no issues noted per staff at this time. Will await cultures and follow, no further recommendations at this time. Since abx restarted, labs/vitals have improved. Staff did note pt family visited and a couple members had flu/cold. Will follow cultures and monitor
--- NOTE | 2019-07-23 14:51 | NUR ---
INTERDISCIPLINARY PLAN OF CARE CONFERENCE was held today. Patient's daughter Ludmila was unable to attend the meeting. Dr. Sylvester and the Interdisciplinary Team reviewed the current plan of care in detail. RN reported on patient's current medical condition, recent lab findings, and current treatments. See RN IDT conference notes. See also all other disciplines IDT notes and physician's progress notes for additional details.
--- NOTE | 2019-07-23 18:05 | NUR ---
Continue on ivatb,no adverse reaction noted,iv site intact,no s/s of infiltration noted.
[2019-07-23 20:19] VITALS: BP 119/61
[2019-07-23] MEDS: ASCORBIC ACID 500 MG TABLET GT SCH (21:56)
[2019-07-23] MEDS: MULTIVIT, IRON, MIN NO. 8, FA TABLET GT SCH (21:56)
[2019-07-23] MEDS: SIMVASTATIN 10 MG TABLET GT SCH (21:57)
[2019-07-24] MEDS: BACLOFEN 10 MG TABLET GT SCH ×4 (00:13→17:32)
[2019-07-24] MEDS: JEVITY 1.2 1000 ML LIQUID GT PRN (02:22)
[2019-07-24] MEDS: ARGININE/GLUTAMINE/CALCIUM BMB 1 EACH POWD.PACK GT SCH ×2 (05:34→17:32)
[2019-07-24] MEDS: OMEPRAZOLE 20 MG CAPSULE.DR GT SCH (05:34)
[2019-07-24] MEDS: PROTEIN SUPPLEMENT (PROSTAT) 30 ML LIQUID GT SCH ×3 (05:36→21:33)
[2019-07-24] MEDS: MEROPENEM 0.5 G in IV NORMAL SALINE 50 ML IV SCH ×3 (05:56→22:01)
--- NOTE | 2019-07-24 06:12 | NUR ---
continue merrem 500mg iv for fever, no adverse reaction noted,afebrile,no respiratory distress noted.
[2019-07-24 08:03] VITALS: BP 107/48
[2019-07-24] MEDS: ACETAMINOPHEN 650 MG/20.3 ML LIQUID UDC GT SCH (08:14)
[2019-07-24] MEDS: SERTRALINE 25 MG GT SCH (08:14)
[2019-07-24] MEDS: ACIDOPHILUS/BULGARICUS CHEW TAB GT SCH ×2 (08:14→21:33)
[2019-07-24] MEDS: COD LIVER OIL/ZINC OXIDE OINT 113 GM TUBE TP SCH ×2 (08:14→21:33)
[2019-07-24] MEDS: THERAHONEY GEL 1.5 OZ TUBE TOP SCH (08:54)
[2019-07-24] MEDS: HYDROGEN PEROXIDE 3% 118 ML BOTTLE TP SCH ×2 (09:00→21:41)
--- NOTE | 2019-07-24 16:41 | NUR ---
Patient seen today by Dr. Rodriguez for her annual dental cleaning See dental notes for details.
[2019-07-24 20:06] VITALS: BP 97/48
[2019-07-24] MEDS: MULTIVIT, IRON, MIN NO. 8, FA TABLET GT SCH (21:33)
[2019-07-24] MEDS: ASCORBIC ACID 500 MG TABLET GT SCH (21:33)
[2019-07-24] MEDS: SIMVASTATIN 10 MG TABLET GT SCH (21:33)
[2019-07-25] MEDS: BACLOFEN 10 MG TABLET GT SCH ×4 (00:10→17:05)
--- NOTE | 2019-07-25 04:47 | NUR ---
continue on merrem 500mg iv for fever, no adverse reaction noted, afebrile, no respiratory distress noted.
[2019-07-25] MEDS: JEVITY 1.2 1000 ML LIQUID GT PRN (05:11)
[2019-07-25] MEDS: OMEPRAZOLE 20 MG CAPSULE.DR GT SCH (05:11)
[2019-07-25] MEDS: ARGININE/GLUTAMINE/CALCIUM BMB 1 EACH POWD.PACK GT SCH ×2 (05:11→17:05)
[2019-07-25] MEDS: PROTEIN SUPPLEMENT (PROSTAT) 30 ML LIQUID GT SCH ×3 (05:11→21:59)
[2019-07-25] MEDS: MEROPENEM 0.5 G in IV NORMAL SALINE 50 ML IV SCH ×2 (06:05→14:36)
[2019-07-25 08:05] VITALS: BP 113/65
[2019-07-25] MEDS: SERTRALINE 25 MG GT SCH (08:26)
[2019-07-25] MEDS: ACIDOPHILUS/BULGARICUS CHEW TAB GT SCH ×2 (08:26→20:14)
[2019-07-25] MEDS: THERAHONEY GEL 1.5 OZ TUBE TOP SCH (08:26)
[2019-07-25] MEDS: COD LIVER OIL/ZINC OXIDE OINT 113 GM TUBE TP SCH ×2 (08:26→20:14)
[2019-07-25] MEDS: ACETAMINOPHEN 650 MG/20.3 ML LIQUID UDC GT SCH (08:26)
[2019-07-25] MEDS: HYDROGEN PEROXIDE 3% 118 ML BOTTLE TP SCH ×2 (09:00→21:48)
--- NOTE | 2019-07-25 16:10 | NUR ---
PT. SEEN AND EXAMINED BY RAKEL CASTAÑEDA AND DR. TURCIOS AND WITH NNO.
[2019-07-25] MEDS: ASCORBIC ACID 500 MG TABLET GT SCH (20:14)
[2019-07-25] MEDS: SIMVASTATIN 10 MG TABLET GT SCH (20:14)
[2019-07-25] MEDS: MULTIVIT, IRON, MIN NO. 8, FA TABLET GT SCH (20:14)
[2019-07-25 20:15] VITALS: BP 116/47
[2019-07-26] MEDS: BACLOFEN 10 MG TABLET GT SCH ×4 (00:14→17:09)
[2019-07-26] MEDS: JEVITY 1.2 1000 ML LIQUID GT PRN (04:29)
[2019-07-26] MEDS: OMEPRAZOLE 20 MG CAPSULE.DR GT SCH (05:08)
[2019-07-26] MEDS: PROTEIN SUPPLEMENT (PROSTAT) 30 ML LIQUID GT SCH ×3 (05:08→21:50)
[2019-07-26] MEDS: ARGININE/GLUTAMINE/CALCIUM BMB 1 EACH POWD.PACK GT SCH ×2 (05:08→17:09)
[2019-07-26 08:04] VITALS: BP 100/49
[2019-07-26] MEDS: ACETAMINOPHEN 650 MG/20.3 ML LIQUID UDC GT SCH (08:35)
[2019-07-26] MEDS: THERAHONEY GEL 1.5 OZ TUBE TOP SCH (08:36)
[2019-07-26] MEDS: SERTRALINE 25 MG GT SCH (08:36)
[2019-07-26] MEDS: ACIDOPHILUS/BULGARICUS CHEW TAB GT SCH ×2 (08:36→20:12)
[2019-07-26] MEDS: COD LIVER OIL/ZINC OXIDE OINT 113 GM TUBE TP SCH ×2 (08:36→20:12)
[2019-07-26] MEDS: HYDROGEN PEROXIDE 3% 118 ML BOTTLE TP SCH ×2 (09:17→20:36)
--- NOTE | 2019-07-26 14:00 | NUR ---
SEEN AND EXAMINED BY FERNANDO FU AND DR LUTHER AND WITH NNO.
[2019-07-26 20:10] VITALS: BP 106/46
[2019-07-26] MEDS: ASCORBIC ACID 500 MG TABLET GT SCH (20:12)
[2019-07-26] MEDS: SIMVASTATIN 10 MG TABLET GT SCH (20:12)
[2019-07-26] MEDS: MULTIVIT, IRON, MIN NO. 8, FA TABLET GT SCH (20:12)
[2019-07-26 20:20] VITALS: BP 106/46
[2019-07-27] MEDS: BACLOFEN 10 MG TABLET GT SCH ×4 (00:15→17:36)
[2019-07-27] MEDS: JEVITY 1.2 1000 ML LIQUID GT PRN (04:57)
[2019-07-27] MEDS: ARGININE/GLUTAMINE/CALCIUM BMB 1 EACH POWD.PACK GT SCH ×2 (05:50→17:36)
[2019-07-27] MEDS: PROTEIN SUPPLEMENT (PROSTAT) 30 ML LIQUID GT SCH ×3 (05:50→21:07)
[2019-07-27] MEDS: OMEPRAZOLE 20 MG CAPSULE.DR GT SCH (05:50)
[2019-07-27] MEDS: HYDROGEN PEROXIDE 3% 118 ML BOTTLE TP SCH ×2 (07:45→21:00)
[2019-07-27 08:00] VITALS: BP 102/69
[2019-07-27] MEDS: ACETAMINOPHEN 650 MG/20.3 ML LIQUID UDC GT SCH (08:49)
[2019-07-27] MEDS: THERAHONEY GEL 1.5 OZ TUBE TOP SCH (08:50)
[2019-07-27] MEDS: SERTRALINE 25 MG GT SCH (08:50)
[2019-07-27] MEDS: ACIDOPHILUS/BULGARICUS CHEW TAB GT SCH ×2 (08:50→20:18)
[2019-07-27] MEDS: COD LIVER OIL/ZINC OXIDE OINT 113 GM TUBE TP SCH ×2 (08:51→20:18)
[2019-07-27 20:17] VITALS: BP 118/50
[2019-07-27] MEDS: MULTIVIT, IRON, MIN NO. 8, FA TABLET GT SCH (20:18)
[2019-07-27] MEDS: SIMVASTATIN 10 MG TABLET GT SCH (20:18)
[2019-07-27] MEDS: ASCORBIC ACID 500 MG TABLET GT SCH (20:18)
[2019-07-28] MEDS: BACLOFEN 10 MG TABLET GT SCH ×4 (00:09→17:30)
[2019-07-28] MEDS: OMEPRAZOLE 20 MG CAPSULE.DR GT SCH (05:14)
[2019-07-28] MEDS: JEVITY 1.2 1000 ML LIQUID GT PRN (05:14)
[2019-07-28] MEDS: PROTEIN SUPPLEMENT (PROSTAT) 30 ML LIQUID GT SCH ×3 (05:14→21:10)
[2019-07-28] MEDS: ARGININE/GLUTAMINE/CALCIUM BMB 1 EACH POWD.PACK GT SCH ×2 (05:14→17:30)
[2019-07-28 08:00] VITALS: BP 104/57
[2019-07-28] MEDS: ACIDOPHILUS/BULGARICUS CHEW TAB GT SCH ×2 (09:01→21:09)
[2019-07-28] MEDS: ACETAMINOPHEN 650 MG/20.3 ML LIQUID UDC GT SCH (09:01)
[2019-07-28] MEDS: THERAHONEY GEL 1.5 OZ TUBE TOP SCH (09:02)
[2019-07-28] MEDS: SERTRALINE 25 MG GT SCH (09:02)
[2019-07-28] MEDS: COD LIVER OIL/ZINC OXIDE OINT 113 GM TUBE TP SCH ×2 (09:02→21:09)
[2019-07-28] MEDS: HYDROGEN PEROXIDE 3% 118 ML BOTTLE TP SCH ×2 (09:45→21:22)
[2019-07-28 20:32] VITALS: BP 109/58
[2019-07-28] MEDS: SIMVASTATIN 10 MG TABLET GT SCH (21:09)
[2019-07-28] MEDS: ASCORBIC ACID 500 MG TABLET GT SCH (21:09)
[2019-07-28] MEDS: MULTIVIT, IRON, MIN NO. 8, FA TABLET GT SCH (21:09)
[2019-07-29] MEDS: BACLOFEN 10 MG TABLET GT SCH ×4 (00:48→17:12)
[2019-07-29] MEDS: ARGININE/GLUTAMINE/CALCIUM BMB 1 EACH POWD.PACK GT SCH ×2 (05:15→17:12)
[2019-07-29] MEDS: PROTEIN SUPPLEMENT (PROSTAT) 30 ML LIQUID GT SCH ×3 (05:15→21:10)
[2019-07-29] MEDS: OMEPRAZOLE 20 MG CAPSULE.DR GT SCH (05:15)
[2019-07-29 08:00] VITALS: BP 103/61
[2019-07-29] MEDS: ACETAMINOPHEN 650 MG/20.3 ML LIQUID UDC GT SCH (09:00)
[2019-07-29] MEDS: HYDROGEN PEROXIDE 3% 118 ML BOTTLE TP SCH ×2 (09:00→21:10)
[2019-07-29] MEDS: ACIDOPHILUS/BULGARICUS CHEW TAB GT SCH ×2 (09:00→20:42)
[2019-07-29] MEDS: THERAHONEY GEL 1.5 OZ TUBE TOP SCH (09:01)
[2019-07-29] MEDS: SERTRALINE 25 MG GT SCH (09:01)
[2019-07-29] MEDS: COD LIVER OIL/ZINC OXIDE OINT 113 GM TUBE TP SCH ×2 (09:01→20:42)
[2019-07-29] MEDS: JEVITY 1.2 1000 ML LIQUID GT PRN (12:34)
--- NOTE | 2019-07-29 15:53 | NUR ---
SEEN AND EXAMINED BY AMY RASHID.
[2019-07-29] MEDS: MULTIVIT, IRON, MIN NO. 8, FA TABLET GT SCH (20:42)
[2019-07-29] MEDS: ASCORBIC ACID 500 MG TABLET GT SCH (20:42)
[2019-07-29] MEDS: SIMVASTATIN 10 MG TABLET GT SCH (20:42)
[2019-07-29 20:44] VITALS: BP 100/51
[2019-07-30] MEDS: BACLOFEN 10 MG TABLET GT SCH ×4 (00:58→17:24)
[2019-07-30] MEDS: ARGININE/GLUTAMINE/CALCIUM BMB 1 EACH POWD.PACK GT SCH ×2 (05:31→17:24)
[2019-07-30] MEDS: OMEPRAZOLE 20 MG CAPSULE.DR GT SCH (05:31)
[2019-07-30] MEDS: PROTEIN SUPPLEMENT (PROSTAT) 30 ML LIQUID GT SCH ×3 (05:32→21:54)
[2019-07-30 08:00] VITALS: BP 100/45
[2019-07-30] MEDS: ACETAMINOPHEN 650 MG/20.3 ML LIQUID UDC GT SCH (08:55)
[2019-07-30] MEDS: SERTRALINE 25 MG GT SCH (08:56)
[2019-07-30] MEDS: ACIDOPHILUS/BULGARICUS CHEW TAB GT SCH ×2 (08:56→21:53)
[2019-07-30] MEDS: THERAHONEY GEL 1.5 OZ TUBE TOP SCH (08:57)
[2019-07-30] MEDS: COD LIVER OIL/ZINC OXIDE OINT 113 GM TUBE TP SCH ×2 (08:57→21:54)
[2019-07-30] MEDS: HYDROGEN PEROXIDE 3% 118 ML BOTTLE TP SCH ×2 (09:00→21:04)
[2019-07-30 20:12] VITALS: BP 98/50
[2019-07-30] MEDS: ASCORBIC ACID 500 MG TABLET GT SCH (21:54)
[2019-07-30] MEDS: SIMVASTATIN 10 MG TABLET GT SCH (21:54)
[2019-07-30] MEDS: MULTIVIT, IRON, MIN NO. 8, FA TABLET GT SCH (21:54)
[2019-07-30] MEDS: JEVITY 1.2 1000 ML LIQUID GT PRN (22:01)
[2019-07-30] MEDS: TEMAZEPAM 7.5 MG CAPSULE GT PRN (22:01)
[2019-07-31] MEDS: BACLOFEN 10 MG TABLET GT SCH ×4 (00:24→17:05)
[2019-07-31] MEDS: OMEPRAZOLE 20 MG CAPSULE.DR GT SCH (05:33)
[2019-07-31] MEDS: ARGININE/GLUTAMINE/CALCIUM BMB 1 EACH POWD.PACK GT SCH ×2 (05:33→17:05)
[2019-07-31] MEDS: PROTEIN SUPPLEMENT (PROSTAT) 30 ML LIQUID GT SCH ×3 (05:33→21:54)
[2019-07-31 08:00] VITALS: BP 105/47
[2019-07-31] MEDS: SERTRALINE 25 MG GT SCH (08:57)
[2019-07-31] MEDS: ACIDOPHILUS/BULGARICUS CHEW TAB GT SCH ×2 (08:57→21:54)
[2019-07-31] MEDS: COD LIVER OIL/ZINC OXIDE OINT 113 GM TUBE TP SCH ×2 (08:57→21:54)
[2019-07-31] MEDS: ACETAMINOPHEN 650 MG/20.3 ML LIQUID UDC GT SCH (08:57)
[2019-07-31] MEDS: THERAHONEY GEL 1.5 OZ TUBE TOP SCH (08:57)
[2019-07-31] MEDS: HYDROGEN PEROXIDE 3% 118 ML BOTTLE TP SCH ×2 (09:51→20:51)
[2019-07-31 20:54] VITALS: BP 111/58
[2019-07-31] MEDS: SIMVASTATIN 10 MG TABLET GT SCH (21:54)
[2019-07-31] MEDS: MULTIVIT, IRON, MIN NO. 8, FA TABLET GT SCH (21:54)
[2019-07-31] MEDS: ASCORBIC ACID 500 MG TABLET GT SCH (21:54)
[2019-07-31] MEDS: JEVITY 1.2 1000 ML LIQUID GT PRN (21:57)
[2019-08-01] MEDS: BACLOFEN 10 MG TABLET GT SCH ×4 (00:37→17:19)
[2019-08-01] MEDS: ARGININE/GLUTAMINE/CALCIUM BMB 1 EACH POWD.PACK GT SCH ×2 (05:29→17:19)
[2019-08-01] MEDS: OMEPRAZOLE 20 MG CAPSULE.DR GT SCH (05:29)
[2019-08-01] MEDS: PROTEIN SUPPLEMENT (PROSTAT) 30 ML LIQUID GT SCH ×3 (05:29→21:57)
[2019-08-01 08:00] VITALS: BP 112/59
[2019-08-01] MEDS: COD LIVER OIL/ZINC OXIDE OINT 113 GM TUBE TP SCH ×2 (08:54→21:57)
[2019-08-01] MEDS: ACIDOPHILUS/BULGARICUS CHEW TAB GT SCH ×2 (08:54→21:57)
[2019-08-01] MEDS: ACETAMINOPHEN 650 MG/20.3 ML LIQUID UDC GT SCH (08:54)
[2019-08-01] MEDS: SERTRALINE 25 MG GT SCH (08:54)
[2019-08-01] MEDS: THERAHONEY GEL 1.5 OZ TUBE TOP SCH (08:54)
[2019-08-01] MEDS: HYDROGEN PEROXIDE 3% 118 ML BOTTLE TP SCH ×2 (09:06→21:43)
--- NOTE | 2019-08-01 19:00 | NUR ---
SEEN BY WITH NNO.
[2019-08-01 20:32] VITALS: BP 108/54
[2019-08-01] MEDS: ASCORBIC ACID 500 MG TABLET GT SCH (21:57)
[2019-08-01] MEDS: SIMVASTATIN 10 MG TABLET GT SCH (21:57)
[2019-08-01] MEDS: MULTIVIT, IRON, MIN NO. 8, FA TABLET GT SCH (21:57)
[2019-08-01] MEDS: TEMAZEPAM 7.5 MG CAPSULE GT PRN (21:58)
[2019-08-01] MEDS: JEVITY 1.2 1000 ML LIQUID GT PRN (21:59)
[2019-08-02] MEDS: BACLOFEN 10 MG TABLET GT SCH ×5 (00:49→23:04)
[2019-08-02] MEDS: OMEPRAZOLE 20 MG CAPSULE.DR GT SCH (05:39)
[2019-08-02] MEDS: ARGININE/GLUTAMINE/CALCIUM BMB 1 EACH POWD.PACK GT SCH ×2 (05:39→17:45)
[2019-08-02] MEDS: PROTEIN SUPPLEMENT (PROSTAT) 30 ML LIQUID GT SCH ×3 (05:40→21:20)
[2019-08-02] MEDS: ACETAMINOPHEN 650 MG/20.3 ML LIQUID UDC GT SCH (08:45)
[2019-08-02] MEDS: THERAHONEY GEL 1.5 OZ TUBE TOP SCH (08:46)
[2019-08-02] MEDS: COD LIVER OIL/ZINC OXIDE OINT 113 GM TUBE TP SCH ×2 (08:46→21:20)
[2019-08-02] MEDS: SERTRALINE 25 MG GT SCH (08:46)
[2019-08-02] MEDS: ACIDOPHILUS/BULGARICUS CHEW TAB GT SCH ×2 (08:46→21:20)
[2019-08-02] MEDS: HYDROGEN PEROXIDE 3% 118 ML BOTTLE TP SCH ×2 (09:00→21:22)
[2019-08-02 11:31] VITALS: BP 98/47
[2019-08-02 19:58] VITALS: BP 105/42
[2019-08-02] MEDS: TEMAZEPAM 7.5 MG CAPSULE GT PRN (21:00)
[2019-08-02] MEDS: ASCORBIC ACID 500 MG TABLET GT SCH (21:20)
[2019-08-02] MEDS: MULTIVIT, IRON, MIN NO. 8, FA TABLET GT SCH (21:20)
[2019-08-02] MEDS: SIMVASTATIN 10 MG TABLET GT SCH (21:20)
[2019-08-03] MEDS: JEVITY 1.2 1000 ML LIQUID GT PRN (02:21)
[2019-08-03] MEDS: BACLOFEN 10 MG TABLET GT SCH ×4 (05:36→23:06)
[2019-08-03] MEDS: PROTEIN SUPPLEMENT (PROSTAT) 30 ML LIQUID GT SCH ×3 (05:36→21:21)
[2019-08-03] MEDS: OMEPRAZOLE 20 MG CAPSULE.DR GT SCH (05:36)
[2019-08-03] MEDS: ARGININE/GLUTAMINE/CALCIUM BMB 1 EACH POWD.PACK GT SCH ×2 (05:36→17:22)
[2019-08-03] MEDS: HYDROGEN PEROXIDE 3% 118 ML BOTTLE TP SCH ×2 (08:20→21:00)
[2019-08-03] MEDS: ACIDOPHILUS/BULGARICUS CHEW TAB GT SCH ×2 (08:46→21:21)
[2019-08-03] MEDS: ACETAMINOPHEN 650 MG/20.3 ML LIQUID UDC GT SCH (08:46)
[2019-08-03] MEDS: SERTRALINE 25 MG GT SCH (08:47)
[2019-08-03] MEDS: COD LIVER OIL/ZINC OXIDE OINT 113 GM TUBE TP SCH ×2 (08:47→21:21)
[2019-08-03] MEDS: THERAHONEY GEL 1.5 OZ TUBE TOP SCH (08:47)
[2019-08-03 11:34] VITALS: BP 110/50
--- NOTE | 2019-08-03 12:29 | NUR ---
Elvia Weems here, notified patient having loose stools, no orders given at this time, continue monitoring.
[2019-08-03] MEDS: SIMVASTATIN 10 MG TABLET GT SCH (21:21)
[2019-08-03] MEDS: ASCORBIC ACID 500 MG TABLET GT SCH (21:21)
[2019-08-03] MEDS: MULTIVIT, IRON, MIN NO. 8, FA TABLET GT SCH (21:21)
[2019-08-03] MEDS: TEMAZEPAM 7.5 MG CAPSULE GT PRN (21:25)
[2019-08-03 22:38] VITALS: BP 109/53
[2019-08-04] MEDS: JEVITY 1.2 1000 ML LIQUID GT PRN (00:21)
[2019-08-04] MEDS: OMEPRAZOLE 20 MG CAPSULE.DR GT SCH (05:45)
[2019-08-04] MEDS: ARGININE/GLUTAMINE/CALCIUM BMB 1 EACH POWD.PACK GT SCH ×2 (05:45→17:03)
[2019-08-04] MEDS: PROTEIN SUPPLEMENT (PROSTAT) 30 ML LIQUID GT SCH ×3 (05:45→21:18)
[2019-08-04] MEDS: BACLOFEN 10 MG TABLET GT SCH ×4 (05:45→23:06)
[2019-08-04 08:06] VITALS: BP 111/46
[2019-08-04] MEDS: ACETAMINOPHEN 650 MG/20.3 ML LIQUID UDC GT SCH (09:09)
[2019-08-04] MEDS: ACIDOPHILUS/BULGARICUS CHEW TAB GT SCH ×2 (09:09→21:18)
[2019-08-04] MEDS: SERTRALINE 25 MG GT SCH (09:09)
[2019-08-04] MEDS: COD LIVER OIL/ZINC OXIDE OINT 113 GM TUBE TP SCH ×2 (09:10→21:18)
[2019-08-04] MEDS: THERAHONEY GEL 1.5 OZ TUBE TOP SCH (09:10)
[2019-08-04] MEDS: HYDROGEN PEROXIDE 3% 118 ML BOTTLE TP SCH ×2 (10:43→20:38)
[2019-08-04] MEDS: SIMVASTATIN 10 MG TABLET GT SCH (21:18)
[2019-08-04] MEDS: ASCORBIC ACID 500 MG TABLET GT SCH (21:18)
[2019-08-04] MEDS: MULTIVIT, IRON, MIN NO. 8, FA TABLET GT SCH (21:18)
[2019-08-04] MEDS: TEMAZEPAM 7.5 MG CAPSULE GT PRN (21:30)
[2019-08-04 22:26] VITALS: BP 111/50
[2019-08-05] MEDS: PROTEIN SUPPLEMENT (PROSTAT) 30 ML LIQUID GT SCH ×3 (05:40→21:36)
[2019-08-05] MEDS: ARGININE/GLUTAMINE/CALCIUM BMB 1 EACH POWD.PACK GT SCH ×2 (05:40→17:53)
[2019-08-05] MEDS: BACLOFEN 10 MG TABLET GT SCH ×3 (05:40→17:53)
[2019-08-05] MEDS: OMEPRAZOLE 20 MG CAPSULE.DR GT SCH (05:40)
[2019-08-05 08:00] VITALS: BP 109/56
[2019-08-05] MEDS: ACETAMINOPHEN 650 MG/20.3 ML LIQUID UDC GT SCH (08:34)
[2019-08-05] MEDS: SERTRALINE 25 MG GT SCH (08:35)
[2019-08-05] MEDS: ACIDOPHILUS/BULGARICUS CHEW TAB GT SCH ×2 (08:35→21:35)
[2019-08-05] MEDS: COD LIVER OIL/ZINC OXIDE OINT 113 GM TUBE TP SCH ×2 (08:36→21:36)
[2019-08-05] MEDS: JEVITY 1.2 1000 ML LIQUID GT PRN (08:50)
[2019-08-05] MEDS: HYDROGEN PEROXIDE 3% 118 ML BOTTLE TP SCH ×2 (09:00→21:02)
[2019-08-05] MEDS: THERAHONEY GEL 1.5 OZ TUBE TOP SCH (09:13)
[2019-08-05] MEDS: MULTIVIT, IRON, MIN NO. 8, FA TABLET GT SCH (21:35)
[2019-08-05] MEDS: ASCORBIC ACID 500 MG TABLET GT SCH (21:35)
[2019-08-05] MEDS: SIMVASTATIN 10 MG TABLET GT SCH (21:35)
[2019-08-05 23:12] VITALS: BP 126/50
[2019-08-06] MEDS: BACLOFEN 10 MG TABLET GT SCH ×4 (00:57→17:00)
[2019-08-06] MEDS: PROTEIN SUPPLEMENT (PROSTAT) 30 ML LIQUID GT SCH ×3 (05:06→21:49)
[2019-08-06] MEDS: ARGININE/GLUTAMINE/CALCIUM BMB 1 EACH POWD.PACK GT SCH ×2 (05:06→17:00)
[2019-08-06] MEDS: OMEPRAZOLE 20 MG CAPSULE.DR GT SCH (05:06)
[2019-08-06 08:00] VITALS: BP 95/55
[2019-08-06] MEDS: HYDROGEN PEROXIDE 3% 118 ML BOTTLE TP SCH ×2 (08:06→21:57)
[2019-08-06] MEDS: ACETAMINOPHEN 650 MG/20.3 ML LIQUID UDC GT SCH (08:19)
[2019-08-06] MEDS: ACIDOPHILUS/BULGARICUS CHEW TAB GT SCH ×2 (08:19→21:47)
[2019-08-06] MEDS: COD LIVER OIL/ZINC OXIDE OINT 113 GM TUBE TP SCH ×2 (08:20→21:49)
[2019-08-06] MEDS: SERTRALINE 25 MG GT SCH (08:20)
[2019-08-06] MEDS: THERAHONEY GEL 1.5 OZ TUBE TOP SCH (09:11)
--- NOTE | 2019-08-06 16:32 | NUR ---
On close observation ,for episodes of loose bm.
[2019-08-06 20:00] VITALS: BP 98/44
[2019-08-06] MEDS: MULTIVIT, IRON, MIN NO. 8, FA TABLET GT SCH (21:48)
[2019-08-06] MEDS: ASCORBIC ACID 500 MG TABLET GT SCH (21:48)
[2019-08-06] MEDS: SIMVASTATIN 10 MG TABLET GT SCH (21:48)
[2019-08-07] MEDS: BACLOFEN 10 MG TABLET GT SCH ×4 (00:17→17:49)
[2019-08-07] MEDS: PROTEIN SUPPLEMENT (PROSTAT) 30 ML LIQUID GT SCH ×3 (05:29→21:43)
[2019-08-07] MEDS: ARGININE/GLUTAMINE/CALCIUM BMB 1 EACH POWD.PACK GT SCH ×2 (05:29→17:49)
[2019-08-07] MEDS: OMEPRAZOLE 20 MG CAPSULE.DR GT SCH (05:29)
[2019-08-07] MEDS: HYDROGEN PEROXIDE 3% 118 ML BOTTLE TP SCH ×2 (07:41→21:22)
[2019-08-07 08:00] VITALS: BP 99/49
[2019-08-07] MEDS: ACETAMINOPHEN 650 MG/20.3 ML LIQUID UDC GT SCH (08:21)
[2019-08-07] MEDS: ACIDOPHILUS/BULGARICUS CHEW TAB GT SCH ×2 (08:21→21:39)
[2019-08-07] MEDS: SERTRALINE 25 MG GT SCH (08:21)
[2019-08-07] MEDS: THERAHONEY GEL 1.5 OZ TUBE TOP SCH (08:22)
[2019-08-07] MEDS: COD LIVER OIL/ZINC OXIDE OINT 113 GM TUBE TP SCH ×2 (08:22→21:43)
--- NOTE | 2019-08-07 18:00 | NUR ---
Pt has 1 episode of loose Bm,color brownish,no fowl smell noted.will observe.
[2019-08-07 21:13] VITALS: BP 107/50
[2019-08-07] MEDS: MULTIVIT, IRON, MIN NO. 8, FA TABLET GT SCH (21:42)
[2019-08-07] MEDS: ASCORBIC ACID 500 MG TABLET GT SCH (21:43)
[2019-08-07] MEDS: SIMVASTATIN 10 MG TABLET GT SCH (21:43)
[2019-08-08] MEDS: ARGININE/GLUTAMINE/CALCIUM BMB 1 EACH POWD.PACK GT SCH ×2 (05:10→17:23)
[2019-08-08] MEDS: BACLOFEN 10 MG TABLET GT SCH ×4 (05:10→17:23)
[2019-08-08] MEDS: PROTEIN SUPPLEMENT (PROSTAT) 30 ML LIQUID GT SCH ×3 (05:11→21:40)
[2019-08-08] MEDS: OMEPRAZOLE 20 MG CAPSULE.DR GT SCH (05:11)
[2019-08-08 07:00] VITALS: BP 106/50
[2019-08-08] MEDS: HYDROGEN PEROXIDE 3% 118 ML BOTTLE TP SCH ×2 (08:49→20:32)
[2019-08-08] MEDS: SERTRALINE 25 MG GT SCH (09:27)
[2019-08-08] MEDS: ACIDOPHILUS/BULGARICUS CHEW TAB GT SCH ×2 (09:27→21:39)
[2019-08-08] MEDS: ACETAMINOPHEN 650 MG/20.3 ML LIQUID UDC GT SCH (09:27)
[2019-08-08] MEDS: THERAHONEY GEL 1.5 OZ TUBE TOP SCH (09:28)
[2019-08-08] MEDS: COD LIVER OIL/ZINC OXIDE OINT 113 GM TUBE TP SCH ×2 (09:28→21:40)
--- NOTE | 2019-08-08 13:56 | NUR ---
SEEN BY AND WITH NNO.
--- NOTE | 2019-08-08 17:00 | NUR ---
SEEN BY RAKEL CASTAÑEDA AND WITH NNO.
[2019-08-08 20:00] VITALS: BP 103/49
[2019-08-08] MEDS: SIMVASTATIN 10 MG TABLET GT SCH (21:40)
[2019-08-08] MEDS: MULTIVIT, IRON, MIN NO. 8, FA TABLET GT SCH (21:40)
[2019-08-08] MEDS: ASCORBIC ACID 500 MG TABLET GT SCH (21:40)
[2019-08-08] MEDS: JEVITY 1.2 1000 ML LIQUID GT PRN (22:06)
[2019-08-09] MEDS: ARGININE/GLUTAMINE/CALCIUM BMB 1 EACH POWD.PACK GT SCH ×2 (06:03→17:19)
[2019-08-09] MEDS: BACLOFEN 10 MG TABLET GT SCH ×5 (06:03→23:19)
[2019-08-09] MEDS: PROTEIN SUPPLEMENT (PROSTAT) 30 ML LIQUID GT SCH ×3 (06:03→21:27)
[2019-08-09] MEDS: OMEPRAZOLE 20 MG CAPSULE.DR GT SCH (06:03)
[2019-08-09 08:30] VITALS: BP 130/53
[2019-08-09] MEDS: ACETAMINOPHEN 650 MG/20.3 ML LIQUID UDC GT SCH (08:46)
[2019-08-09] MEDS: ACIDOPHILUS/BULGARICUS CHEW TAB GT SCH ×2 (08:47→21:27)
[2019-08-09] MEDS: COD LIVER OIL/ZINC OXIDE OINT 113 GM TUBE TP SCH ×2 (08:47→21:27)
[2019-08-09] MEDS: THERAHONEY GEL 1.5 OZ TUBE TOP SCH (08:47)
[2019-08-09] MEDS: SERTRALINE 25 MG GT SCH (08:47)
[2019-08-09] MEDS: HYDROGEN PEROXIDE 3% 118 ML BOTTLE TP SCH ×2 (09:00→21:32)
[2019-08-09 20:28] VITALS: BP 98/57
[2019-08-09] MEDS: SIMVASTATIN 10 MG TABLET GT SCH (21:27)
[2019-08-09] MEDS: MULTIVIT, IRON, MIN NO. 8, FA TABLET GT SCH (21:27)
[2019-08-09] MEDS: ASCORBIC ACID 500 MG TABLET GT SCH (21:27)
[2019-08-09] MEDS: TEMAZEPAM 7.5 MG CAPSULE GT PRN (23:19)
[2019-08-09] MEDS: JEVITY 1.2 1000 ML LIQUID GT PRN (23:20)
[2019-08-10] MEDS: PROTEIN SUPPLEMENT (PROSTAT) 30 ML LIQUID GT SCH ×3 (05:03→22:05)
[2019-08-10] MEDS: ARGININE/GLUTAMINE/CALCIUM BMB 1 EACH POWD.PACK GT SCH ×2 (05:03→18:29)
[2019-08-10] MEDS: BACLOFEN 10 MG TABLET GT SCH ×3 (05:03→18:30)
[2019-08-10] MEDS: OMEPRAZOLE 20 MG CAPSULE.DR GT SCH (05:03)
[2019-08-10] MEDS: HYDROGEN PEROXIDE 3% 118 ML BOTTLE TP SCH ×2 (07:49→21:40)
[2019-08-10 08:30] VITALS: BP 108/43
[2019-08-10] MEDS: ACIDOPHILUS/BULGARICUS CHEW TAB GT SCH ×2 (09:28→20:42)
[2019-08-10] MEDS: ACETAMINOPHEN 650 MG/20.3 ML LIQUID UDC GT SCH (09:28)
[2019-08-10] MEDS: SERTRALINE 25 MG GT SCH (09:29)
[2019-08-10] MEDS: COD LIVER OIL/ZINC OXIDE OINT 113 GM TUBE TP SCH ×2 (09:45→20:42)
[2019-08-10] MEDS: THERAHONEY GEL 1.5 OZ TUBE TOP SCH (09:45)
--- NOTE | 2019-08-10 17:56 | NUR ---
JAI LENNON N.P. (I.D) WAS NOTIFIED RE:ONE TIME DURING SHIFT OF WATERY STOOL AND NO OTHER DISCOMFORT OR SYMPTOM AND WITH NEW ORDER CARRIED OUT IF PT. HAS 3 OR MORE WATERY STOOL TONIGHT COLLECT STOOL FOR C. DIFF AND JAI WILL RE EVALUATE PT. TOMORROW.
[2019-08-10] MEDS: SIMVASTATIN 10 MG TABLET GT SCH (20:42)
[2019-08-10] MEDS: MULTIVIT, IRON, MIN NO. 8, FA TABLET GT SCH (20:42)
[2019-08-10] MEDS: ASCORBIC ACID 500 MG TABLET GT SCH (20:42)
[2019-08-10 20:50] VITALS: BP 92/57
[2019-08-10] MEDS: TEMAZEPAM 7.5 MG CAPSULE GT PRN (22:06)
--- NOTE | 2019-08-10 23:00 | NUR ---
Patient has been having watery loose stools X 2 at this time, Patient is alert, abdomen is soft and non-distended, denies pain on palpation, noted with hyperactive bowel sounds, kept clean and dry, will continue monitor.
[2019-08-11] MEDS: TEMAZEPAM 7.5 MG CAPSULE GT PRN (01:37)
[2019-08-11] MEDS: JEVITY 1.2 1000 ML LIQUID GT PRN (01:37)
[2019-08-11] MEDS: PROTEIN SUPPLEMENT (PROSTAT) 30 ML LIQUID GT SCH ×3 (05:11→21:43)
[2019-08-11] MEDS: BACLOFEN 10 MG TABLET GT SCH ×5 (05:11→23:28)
[2019-08-11] MEDS: OMEPRAZOLE 20 MG CAPSULE.DR GT SCH (05:11)
[2019-08-11] MEDS: ARGININE/GLUTAMINE/CALCIUM BMB 1 EACH POWD.PACK GT SCH ×2 (05:11→17:38)
--- NOTE | 2019-08-11 05:15 | NUR ---
Patient just had a watery loose diarrhea #3, collected stool and for c-diff testing.
[2019-08-11 08:00] VITALS: BP 90/48
[2019-08-11] MEDS: SERTRALINE 25 MG GT SCH (08:15)
[2019-08-11] MEDS: ACIDOPHILUS/BULGARICUS CHEW TAB GT SCH ×2 (08:15→21:42)
[2019-08-11] MEDS: THERAHONEY GEL 1.5 OZ TUBE TOP SCH (08:15)
[2019-08-11] MEDS: COD LIVER OIL/ZINC OXIDE OINT 113 GM TUBE TP SCH ×2 (08:15→21:42)
[2019-08-11] MEDS: ACETAMINOPHEN 650 MG/20.3 ML LIQUID UDC GT SCH (08:15)
[2019-08-11] MEDS: HYDROGEN PEROXIDE 3% 118 ML BOTTLE TP SCH ×2 (08:48→20:57)
--- NOTE | 2019-08-11 14:45 | NUR ---
PT. MONITORED FOR DIARRHEA AND NO BOWEL MOVEMENTS UP TO RIGHT NOW AND STOOL FOR C. DIFF RESULT NEGATIVE AND JAI LENNON N.P. (I.D) WAS AWARE AND STATED THAT SHE WILL CALL BACK WITH THE DECISION RE: IF ATB VANCOMYCIN IS NEEDED OR NOT.
--- NOTE | 2019-08-11 14:47 | NUR ---
IN MAIN TIME CONTACT ISOLATION KEPT.
--- NOTE | 2019-08-11 18:53 | NUR ---
PT. HAD ONLY ONE TIME MEDIUM WATERY STOOL AND STOOL FOR C. DIFF RESULT NEGATIVE AND JAI Cunningham.P. (I.D) AWARE AND WITH NEW ORDERS CARRIED OUT.
[2019-08-11 20:34] VITALS: BP 105/47
[2019-08-11] MEDS: ASCORBIC ACID 500 MG TABLET GT SCH (21:42)
[2019-08-11] MEDS: MULTIVIT, IRON, MIN NO. 8, FA TABLET GT SCH (21:42)
[2019-08-11] MEDS: SIMVASTATIN 10 MG TABLET GT SCH (21:42)
[2019-08-12] MEDS: BACLOFEN 10 MG TABLET GT SCH ×3 (05:20→17:19)
[2019-08-12] MEDS: ARGININE/GLUTAMINE/CALCIUM BMB 1 EACH POWD.PACK GT SCH ×2 (05:20→17:19)
[2019-08-12] MEDS: OMEPRAZOLE 20 MG CAPSULE.DR GT SCH (05:21)
[2019-08-12] MEDS: PROTEIN SUPPLEMENT (PROSTAT) 30 ML LIQUID GT SCH ×3 (05:21→21:38)
[2019-08-12] MEDS: JEVITY 1.2 1000 ML LIQUID GT PRN (06:53)
[2019-08-12 08:00] VITALS: BP 105/53
[2019-08-12] MEDS: ACETAMINOPHEN 650 MG/20.3 ML LIQUID UDC GT SCH (08:44)
[2019-08-12] MEDS: THERAHONEY GEL 1.5 OZ TUBE TOP SCH (08:44)
[2019-08-12] MEDS: ACIDOPHILUS/BULGARICUS CHEW TAB GT SCH ×2 (08:44→21:38)
[2019-08-12] MEDS: SERTRALINE 25 MG GT SCH (08:44)
[2019-08-12] MEDS: COD LIVER OIL/ZINC OXIDE OINT 113 GM TUBE TP SCH ×2 (08:45→21:38)
[2019-08-12] MEDS: HYDROGEN PEROXIDE 3% 118 ML BOTTLE TP SCH ×2 (09:44→21:04)
--- NOTE | 2019-08-12 11:00 | NUR ---
SEEN BY JAI LENNON N.P. (I.D) AND WITH NEW ORDERS CARRIED OUT.PT. WAS SEEN BY AMY Lorenzo AND WITH NNO.
[2019-08-12 19:58] VITALS: BP 106/48
[2019-08-12] MEDS: TEMAZEPAM 7.5 MG CAPSULE GT PRN (21:00)
[2019-08-12] MEDS: MULTIVIT, IRON, MIN NO. 8, FA TABLET GT SCH (21:38)
[2019-08-12] MEDS: SIMVASTATIN 10 MG TABLET GT SCH (21:38)
[2019-08-12] MEDS: ASCORBIC ACID 500 MG TABLET GT SCH (21:38)
[2019-08-13] MEDS: BACLOFEN 10 MG TABLET GT SCH ×4 (00:01→17:32)
[2019-08-13] MEDS: JEVITY 1.2 1000 ML LIQUID GT PRN (05:30)
[2019-08-13] MEDS: PROTEIN SUPPLEMENT (PROSTAT) 30 ML LIQUID GT SCH ×3 (06:01→21:41)
[2019-08-13] MEDS: ARGININE/GLUTAMINE/CALCIUM BMB 1 EACH POWD.PACK GT SCH ×2 (06:01→17:32)
[2019-08-13] MEDS: OMEPRAZOLE 20 MG CAPSULE.DR GT SCH (06:01)
[2019-08-13 08:00] VITALS: BP 116/42
[2019-08-13] MEDS: ACIDOPHILUS/BULGARICUS CHEW TAB GT SCH ×2 (08:47→21:40)
[2019-08-13] MEDS: THERAHONEY GEL 1.5 OZ TUBE TOP SCH (08:47)
[2019-08-13] MEDS: ACETAMINOPHEN 650 MG/20.3 ML LIQUID UDC GT SCH (08:47)
[2019-08-13] MEDS: COD LIVER OIL/ZINC OXIDE OINT 113 GM TUBE TP SCH ×2 (08:47→21:41)
[2019-08-13] MEDS: SERTRALINE 25 MG GT SCH (08:47)
[2019-08-13] MEDS: HYDROGEN PEROXIDE 3% 118 ML BOTTLE TP SCH ×2 (09:45→20:47)
[2019-08-13 19:35] VITALS: BP 104/63
[2019-08-13] MEDS: MULTIVIT, IRON, MIN NO. 8, FA TABLET GT SCH (21:40)
[2019-08-13] MEDS: ASCORBIC ACID 500 MG TABLET GT SCH (21:41)
[2019-08-13] MEDS: SIMVASTATIN 10 MG TABLET GT SCH (21:41)
[2019-08-14] MEDS: PROTEIN SUPPLEMENT (PROSTAT) 30 ML LIQUID GT SCH ×3 (06:02→22:20)
[2019-08-14] MEDS: ARGININE/GLUTAMINE/CALCIUM BMB 1 EACH POWD.PACK GT SCH ×2 (06:02→17:13)
[2019-08-14] MEDS: BACLOFEN 10 MG TABLET GT SCH ×4 (06:02→17:13)
[2019-08-14] MEDS: OMEPRAZOLE 20 MG CAPSULE.DR GT SCH (06:02)
[2019-08-14] MEDS: HYDROGEN PEROXIDE 3% 118 ML BOTTLE TP SCH ×2 (07:38→20:43)
[2019-08-14] MEDS: ACIDOPHILUS/BULGARICUS CHEW TAB GT SCH ×2 (08:55→21:00)
[2019-08-14] MEDS: COD LIVER OIL/ZINC OXIDE OINT 113 GM TUBE TP SCH ×2 (08:55→21:00)
[2019-08-14] MEDS: SERTRALINE 25 MG GT SCH (08:55)
[2019-08-14] MEDS: ACETAMINOPHEN 650 MG/20.3 ML LIQUID UDC GT SCH (08:55)
[2019-08-14] MEDS: THERAHONEY GEL 1.5 OZ TUBE TOP SCH (08:55)
[2019-08-14 11:24] VITALS: BP 101/45
[2019-08-14 20:21] VITALS: BP 113/51
[2019-08-14] MEDS: SIMVASTATIN 10 MG TABLET GT SCH (21:00)
[2019-08-14] MEDS: ASCORBIC ACID 500 MG TABLET GT SCH (21:00)
[2019-08-14] MEDS: MULTIVIT, IRON, MIN NO. 8, FA TABLET GT SCH (21:00)
[2019-08-15] MEDS: OMEPRAZOLE 20 MG CAPSULE.DR GT SCH (05:32)
[2019-08-15] MEDS: ARGININE/GLUTAMINE/CALCIUM BMB 1 EACH POWD.PACK GT SCH ×2 (05:32→17:42)
[2019-08-15] MEDS: BACLOFEN 10 MG TABLET GT SCH ×4 (05:32→18:36)
[2019-08-15] MEDS: PROTEIN SUPPLEMENT (PROSTAT) 30 ML LIQUID GT SCH ×3 (05:34→21:57)
[2019-08-15 08:01] VITALS: BP 118/48
[2019-08-15] MEDS: ACETAMINOPHEN 650 MG/20.3 ML LIQUID UDC GT SCH (08:37)
[2019-08-15] MEDS: SERTRALINE 25 MG GT SCH (08:38)
[2019-08-15] MEDS: COD LIVER OIL/ZINC OXIDE OINT 113 GM TUBE TP SCH ×2 (08:38→21:57)
[2019-08-15] MEDS: ACIDOPHILUS/BULGARICUS CHEW TAB GT SCH ×2 (08:38→21:56)
[2019-08-15] MEDS: THERAHONEY GEL 1.5 OZ TUBE TOP SCH (09:35)
[2019-08-15] MEDS: HYDROGEN PEROXIDE 3% 118 ML BOTTLE TP SCH ×2 (09:53→21:21)
[2019-08-15] MEDS: JEVITY 1.2 1000 ML LIQUID GT PRN (11:59)
--- NOTE | 2019-08-15 14:58 | NUR ---
Diarrhea resolving; reviewed BM history of this last week with charge nurse. Last BM charted (08/13) ele/ Will continue to monitor per protocol and prn. Addendum: 08/15/19 at [address] Amended: Links added.
[2019-08-15 20:24] VITALS: BP 110/53
[2019-08-15] MEDS: MULTIVIT, IRON, MIN NO. 8, FA TABLET GT SCH (21:57)
[2019-08-15] MEDS: SIMVASTATIN 10 MG TABLET GT SCH (21:57)
[2019-08-15] MEDS: ASCORBIC ACID 500 MG TABLET GT SCH (21:57)
[2019-08-16] MEDS: ARGININE/GLUTAMINE/CALCIUM BMB 1 EACH POWD.PACK GT SCH ×2 (05:43→17:30)
[2019-08-16] MEDS: OMEPRAZOLE 20 MG CAPSULE.DR GT SCH (05:44)
[2019-08-16] MEDS: BACLOFEN 10 MG TABLET GT SCH ×4 (05:44→17:30)
[2019-08-16] MEDS: PROTEIN SUPPLEMENT (PROSTAT) 30 ML LIQUID GT SCH ×3 (05:44→21:40)
[2019-08-16 08:02] VITALS: BP 98/40
[2019-08-16] MEDS: SERTRALINE 25 MG GT SCH (08:16)
[2019-08-16] MEDS: ACIDOPHILUS/BULGARICUS CHEW TAB GT SCH ×2 (08:16→20:27)
[2019-08-16] MEDS: ACETAMINOPHEN 650 MG/20.3 ML LIQUID UDC GT SCH (08:16)
[2019-08-16] MEDS: COD LIVER OIL/ZINC OXIDE OINT 113 GM TUBE TP SCH ×2 (08:17→20:28)
[2019-08-16] MEDS: THERAHONEY GEL 1.5 OZ TUBE TOP SCH (08:17)
[2019-08-16] MEDS: HYDROGEN PEROXIDE 3% 118 ML BOTTLE TP SCH ×2 (09:00→20:28)
[2019-08-16] MEDS: JEVITY 1.2 1000 ML LIQUID GT PRN (17:31)
--- NOTE | 2019-08-16 19:05 | NUR ---
This SW spoke with patient's daughter Ludmila [phone] and informed her that per CDC and [facility] decision to minimize the risk of subacute residents becoming sick with the COVID-19 virus, visitation to [facility] will be suspended, effective immediately, and until further notice. Ludmila expressed understanding. Patient also notified of the visitation restrictions by Liner Installer Bao Paz.
[2019-08-16] MEDS: ASCORBIC ACID 500 MG TABLET GT SCH (20:27)
[2019-08-16] MEDS: MULTIVIT, IRON, MIN NO. 8, FA TABLET GT SCH (20:27)
[2019-08-16] MEDS: SIMVASTATIN 10 MG TABLET GT SCH (20:28)
[2019-08-16 21:57] VITALS: BP 112/58
[2019-08-17] MEDS: BACLOFEN 10 MG TABLET GT SCH ×4 (00:43→17:15)
[2019-08-17] MEDS: TEMAZEPAM 7.5 MG CAPSULE GT PRN (01:03)
[2019-08-17] MEDS: ARGININE/GLUTAMINE/CALCIUM BMB 1 EACH POWD.PACK GT SCH ×2 (05:45→17:15)
[2019-08-17] MEDS: OMEPRAZOLE 20 MG CAPSULE.DR GT SCH (05:46)
[2019-08-17] MEDS: PROTEIN SUPPLEMENT (PROSTAT) 30 ML LIQUID GT SCH ×3 (05:46→22:32)
[2019-08-17 08:02] VITALS: BP 110/43
--- NOTE | 2019-08-17 08:15 | NUR ---
pt received awake,no respiratory distress noted,afebrile temp 97.4,no changes of condition.
[2019-08-17] MEDS: ACIDOPHILUS/BULGARICUS CHEW TAB GT SCH ×2 (08:37→21:00)
[2019-08-17] MEDS: SERTRALINE 25 MG GT SCH (08:37)
[2019-08-17] MEDS: COD LIVER OIL/ZINC OXIDE OINT 113 GM TUBE TP SCH ×2 (08:37→21:00)
[2019-08-17] MEDS: ACETAMINOPHEN 650 MG/20.3 ML LIQUID UDC GT SCH (08:37)
[2019-08-17] MEDS: HYDROGEN PEROXIDE 3% 118 ML BOTTLE TP SCH ×2 (10:00→22:10)
[2019-08-17] MEDS: JEVITY 1.2 1000 ML LIQUID GT PRN (18:55)
[2019-08-17 20:38] VITALS: BP 105/53
[2019-08-17] MEDS: MULTIVIT, IRON, MIN NO. 8, FA TABLET GT SCH (21:00)
[2019-08-17] MEDS: ASCORBIC ACID 500 MG TABLET GT SCH (21:00)
[2019-08-17] MEDS: SIMVASTATIN 10 MG TABLET GT SCH (21:00)
--- NOTE | 2019-08-17 21:45 | NUR ---
Temperature is 98.8 Fahrenheit, trach is intact and patent, no respiratory distress noted, 02 sat is 100% on oxygen 28% fi02, turned and repositioned patient, needs anticipated, call light within reach.
[2019-08-18] MEDS: BACLOFEN 10 MG TABLET GT SCH ×4 (00:48→17:43)
[2019-08-18] MEDS: ARGININE/GLUTAMINE/CALCIUM BMB 1 EACH POWD.PACK GT SCH ×2 (05:48→17:43)
[2019-08-18] MEDS: OMEPRAZOLE 20 MG CAPSULE.DR GT SCH (05:48)
[2019-08-18] MEDS: PROTEIN SUPPLEMENT (PROSTAT) 30 ML LIQUID GT SCH ×3 (05:48→21:53)
[2019-08-18 08:30] VITALS: BP 103/43
[2019-08-18] MEDS: ACETAMINOPHEN 650 MG/20.3 ML LIQUID UDC GT SCH (09:08)
[2019-08-18] MEDS: SERTRALINE 25 MG GT SCH (09:08)
[2019-08-18] MEDS: ACIDOPHILUS/BULGARICUS CHEW TAB GT SCH ×2 (09:08→21:52)
[2019-08-18] MEDS: THERAHONEY GEL 1.5 OZ TUBE TOP SCH (09:09)
[2019-08-18] MEDS: COD LIVER OIL/ZINC OXIDE OINT 113 GM TUBE TP SCH ×2 (09:09→21:53)
[2019-08-18] MEDS: HYDROGEN PEROXIDE 3% 118 ML BOTTLE TP SCH ×2 (10:00→20:55)
--- NOTE | 2019-08-18 17:22 | NUR ---
Pt awake ,able to make needs known ,no respiratory distress ,no s/s of increase secretions ,afebrile, temp 97.9,condition unchanged.
[2019-08-18] MEDS: TEMAZEPAM 7.5 MG CAPSULE GT PRN (21:30)
[2019-08-18] MEDS: ASCORBIC ACID 500 MG TABLET GT SCH (21:52)
[2019-08-18] MEDS: SIMVASTATIN 10 MG TABLET GT SCH (21:52)
[2019-08-18] MEDS: MULTIVIT, IRON, MIN NO. 8, FA TABLET GT SCH (21:52)
[2019-08-18] MEDS: JEVITY 1.2 1000 ML LIQUID GT PRN (22:00)
--- NOTE | 2019-08-18 22:10 | NUR ---
Afebrile, temperature is 98.3 Fahrenheit, trach is intact and patent, 02 sat is 96%, no respiratory distress noted, kept clean and comfortable.
[2019-08-18 23:00] VITALS: BP 109/48
[2019-08-19] MEDS: BACLOFEN 10 MG TABLET GT SCH ×4 (00:18→17:41)
[2019-08-19] MEDS: ARGININE/GLUTAMINE/CALCIUM BMB 1 EACH POWD.PACK GT SCH ×2 (05:27→17:41)
[2019-08-19] MEDS: PROTEIN SUPPLEMENT (PROSTAT) 30 ML LIQUID GT SCH ×3 (05:28→21:22)
[2019-08-19] MEDS: OMEPRAZOLE 20 MG CAPSULE.DR GT SCH (05:28)
[2019-08-19] MEDS: ACIDOPHILUS/BULGARICUS CHEW TAB GT SCH ×2 (08:06→21:21)
[2019-08-19] MEDS: ACETAMINOPHEN 650 MG/20.3 ML LIQUID UDC GT SCH (08:06)
[2019-08-19] MEDS: SERTRALINE 25 MG GT SCH (08:06)
[2019-08-19] MEDS: THERAHONEY GEL 1.5 OZ TUBE TOP SCH (08:07)
[2019-08-19] MEDS: COD LIVER OIL/ZINC OXIDE OINT 113 GM TUBE TP SCH ×2 (08:07→21:21)
[2019-08-19 08:30] VITALS: BP 104/65
[2019-08-19] MEDS: HYDROGEN PEROXIDE 3% 118 ML BOTTLE TP SCH ×2 (09:38→20:52)
--- NOTE | 2019-08-19 11:22 | NUR ---
DOROTHY received a letter from [employer] requesting additional information from the mill representative payee for the patient. DOROTHY notified Fabricio Lott in the accounting department and forwarded the form to him via interoffice mail.
--- NOTE | 2019-08-19 14:48 | NUR ---
Patient stable, no acute respiratory distress noted, repositioned q2hrs for comfort.
[2019-08-19 20:11] VITALS: BP 104/43
[2019-08-19] MEDS: SIMVASTATIN 10 MG TABLET GT SCH (21:21)
[2019-08-19] MEDS: MULTIVIT, IRON, MIN NO. 8, FA TABLET GT SCH (21:21)
[2019-08-19] MEDS: ASCORBIC ACID 500 MG TABLET GT SCH (21:21)
[2019-08-19] MEDS: TEMAZEPAM 7.5 MG CAPSULE GT PRN (21:29)
--- NOTE | 2019-08-19 21:43 | NUR ---
Temperature is 98.3, no SOB, no signs of any respiratory distress noted, 02 sat is 97% on 28% fi02. Patient is stable, turned and repositioned, kept clean and comfortable.
[2019-08-20] MEDS: BACLOFEN 10 MG TABLET GT SCH ×4 (00:13→18:13)
[2019-08-20] MEDS: JEVITY 1.2 1000 ML LIQUID GT PRN (03:32)
[2019-08-20] MEDS: OMEPRAZOLE 20 MG CAPSULE.DR GT SCH (05:37)
[2019-08-20] MEDS: ARGININE/GLUTAMINE/CALCIUM BMB 1 EACH POWD.PACK GT SCH ×2 (05:37→18:13)
[2019-08-20] MEDS: PROTEIN SUPPLEMENT (PROSTAT) 30 ML LIQUID GT SCH ×3 (05:37→21:31)
[2019-08-20] MEDS: HYDROGEN PEROXIDE 3% 118 ML BOTTLE TP SCH ×2 (08:23→20:53)
[2019-08-20] MEDS: ACETAMINOPHEN 650 MG/20.3 ML LIQUID UDC GT SCH (08:30)
[2019-08-20] MEDS: ACIDOPHILUS/BULGARICUS CHEW TAB GT SCH ×2 (09:35→21:30)
[2019-08-20] MEDS: SERTRALINE 25 MG GT SCH (09:35)
[2019-08-20] MEDS: COD LIVER OIL/ZINC OXIDE OINT 113 GM TUBE TP SCH ×2 (09:36→21:31)
[2019-08-20] MEDS: THERAHONEY GEL 1.5 OZ TUBE TOP SCH (09:36)
--- NOTE | 2019-08-20 18:28 | NUR ---
No acute respiratory distress ,no increase secretions,afebrile, temperature 98.8.
[2019-08-20 19:47] VITALS: BP 94/60
[2019-08-20] MEDS: ASCORBIC ACID 500 MG TABLET GT SCH (21:30)
[2019-08-20] MEDS: SIMVASTATIN 10 MG TABLET GT SCH (21:30)
[2019-08-20] MEDS: MULTIVIT, IRON, MIN NO. 8, FA TABLET GT SCH (21:30)
[2019-08-20] MEDS: TEMAZEPAM 7.5 MG CAPSULE GT PRN (21:35)
[2019-08-21] MEDS: BACLOFEN 10 MG TABLET GT SCH ×4 (00:01→18:18)
[2019-08-21] MEDS: JEVITY 1.2 1000 ML LIQUID GT PRN (04:17)
[2019-08-21] MEDS: OMEPRAZOLE 20 MG CAPSULE.DR GT SCH (05:47)
[2019-08-21] MEDS: PROTEIN SUPPLEMENT (PROSTAT) 30 ML LIQUID GT SCH ×3 (05:47→21:02)
[2019-08-21] MEDS: ARGININE/GLUTAMINE/CALCIUM BMB 1 EACH POWD.PACK GT SCH ×2 (05:47→18:18)
[2019-08-21] MEDS: COD LIVER OIL/ZINC OXIDE OINT 113 GM TUBE TP SCH ×2 (09:00→20:56)
[2019-08-21] MEDS: ACIDOPHILUS/BULGARICUS CHEW TAB GT SCH ×2 (09:16→20:55)
[2019-08-21] MEDS: ACETAMINOPHEN 650 MG/20.3 ML LIQUID UDC GT SCH (09:16)
[2019-08-21] MEDS: SERTRALINE 25 MG GT SCH (09:17)
[2019-08-21] MEDS: HYDROGEN PEROXIDE 3% 118 ML BOTTLE TP SCH ×2 (09:24→21:59)
[2019-08-21] MEDS: THERAHONEY GEL 1.5 OZ TUBE TOP SCH (09:44)
[2019-08-21 11:42] VITALS: BP 96/48
--- NOTE | 2019-08-21 18:33 | NUR ---
In stable condition,no respiratory distress,trach connected to p mist,frequent oral and trach suction done,afebrile temp 98.1.Seen and examined by Ludmila Rubalcava NP,with new orders noted for the sacral wound.carried out.
[2019-08-21 19:48] VITALS: BP 124/53
[2019-08-21] MEDS: MULTIVIT, IRON, MIN NO. 8, FA TABLET GT SCH (20:55)
[2019-08-21] MEDS: ASCORBIC ACID 500 MG TABLET GT SCH (20:55)
[2019-08-21] MEDS: SIMVASTATIN 10 MG TABLET GT SCH (20:56)
[2019-08-21] MEDS: TEMAZEPAM 7.5 MG CAPSULE GT PRN (21:03)
[2019-08-22] MEDS: BACLOFEN 10 MG TABLET GT SCH ×4 (00:43→17:48)
[2019-08-22] MEDS: OMEPRAZOLE 20 MG CAPSULE.DR GT SCH (05:34)
[2019-08-22] MEDS: PROTEIN SUPPLEMENT (PROSTAT) 30 ML LIQUID GT SCH ×3 (05:34→21:59)
[2019-08-22] MEDS: ARGININE/GLUTAMINE/CALCIUM BMB 1 EACH POWD.PACK GT SCH ×2 (05:34→17:48)
[2019-08-22] MEDS: JEVITY 1.2 1000 ML LIQUID GT PRN (05:35)
[2019-08-22 08:30] VITALS: BP 125/70
[2019-08-22] MEDS: ACETAMINOPHEN 650 MG/20.3 ML LIQUID UDC GT SCH (09:04)
[2019-08-22] MEDS: COD LIVER OIL/ZINC OXIDE OINT 113 GM TUBE TP SCH ×2 (09:05→21:56)
[2019-08-22] MEDS: ACIDOPHILUS/BULGARICUS CHEW TAB GT SCH ×2 (09:05→21:56)
[2019-08-22] MEDS: SERTRALINE 25 MG GT SCH (09:05)
[2019-08-22] MEDS: HYDROGEN PEROXIDE 3% 118 ML BOTTLE TP SCH ×2 (09:40→21:36)
--- NOTE | 2019-08-22 11:04 | NUR ---
SW met with patient today to check in on how patient was doing. Patient was awake, in bed, watching TV. Patient was receptive to meeting with this SW. SW asked patient if she she was doing well, and patient nodded her head up and down, indicated "yes". SW once again explained the reason for the visitation restrictions, and patient once again nodded her head up and down, in agreement. SW explored any other psychosocial concerns, and patient nodded her head from side to side, indicating "no". SW reassured the patient that patient's daughter Ludmila is aware of the visitation restriction and is agreement, and patient nodded her head up and down, indicating understanding and agreement. No further concerns at this time, but SW will continue to check in with patient, as needed.
[2019-08-22 20:00] VITALS: BP 112/65
[2019-08-22] MEDS: MULTIVIT, IRON, MIN NO. 8, FA TABLET GT SCH (21:56)
[2019-08-22] MEDS: ASCORBIC ACID 500 MG TABLET GT SCH (21:56)
[2019-08-22] MEDS: SIMVASTATIN 10 MG TABLET GT SCH (21:56)
[2019-08-22] MEDS: TEMAZEPAM 7.5 MG CAPSULE GT PRN (22:00)
[2019-08-23] MEDS: PROTEIN SUPPLEMENT (PROSTAT) 30 ML LIQUID GT SCH ×3 (05:36→21:25)
[2019-08-23] MEDS: ARGININE/GLUTAMINE/CALCIUM BMB 1 EACH POWD.PACK GT SCH ×2 (05:36→17:25)
[2019-08-23] MEDS: OMEPRAZOLE 20 MG CAPSULE.DR GT SCH (05:36)
[2019-08-23] MEDS: BACLOFEN 10 MG TABLET GT SCH ×5 (05:36→23:15)
[2019-08-23 08:01] VITALS: BP 101/48
[2019-08-23] MEDS: ACETAMINOPHEN 650 MG/20.3 ML LIQUID UDC GT SCH (09:24)
[2019-08-23] MEDS: ACIDOPHILUS/BULGARICUS CHEW TAB GT SCH ×2 (09:24→21:25)
[2019-08-23] MEDS: SERTRALINE 25 MG GT SCH (09:24)
[2019-08-23] MEDS: COD LIVER OIL/ZINC OXIDE OINT 113 GM TUBE TP SCH ×2 (09:25→21:25)
[2019-08-23] MEDS: JEVITY 1.2 1000 ML LIQUID GT PRN (09:30)
[2019-08-23] MEDS: HYDROGEN PEROXIDE 3% 118 ML BOTTLE TP SCH ×2 (09:55→21:14)
[2019-08-23 20:00] VITALS: BP 119/73
[2019-08-23] MEDS: ASCORBIC ACID 500 MG TABLET GT SCH (21:25)
[2019-08-23] MEDS: MULTIVIT, IRON, MIN NO. 8, FA TABLET GT SCH (21:25)
[2019-08-23] MEDS: SIMVASTATIN 10 MG TABLET GT SCH (21:25)
[2019-08-24] MEDS: OMEPRAZOLE 20 MG CAPSULE.DR GT SCH (05:51)
[2019-08-24] MEDS: BACLOFEN 10 MG TABLET GT SCH ×3 (05:51→17:33)
[2019-08-24] MEDS: PROTEIN SUPPLEMENT (PROSTAT) 30 ML LIQUID GT SCH ×3 (05:51→21:54)
[2019-08-24] MEDS: ARGININE/GLUTAMINE/CALCIUM BMB 1 EACH POWD.PACK GT SCH ×2 (05:51→17:33)
[2019-08-24 07:58] VITALS: BP 112/56
[2019-08-24] MEDS: ACETAMINOPHEN 650 MG/20.3 ML LIQUID UDC GT SCH (08:56)
[2019-08-24] MEDS: COD LIVER OIL/ZINC OXIDE OINT 113 GM TUBE TP SCH ×2 (08:56→21:54)
[2019-08-24] MEDS: THERAHONEY GEL 1.5 OZ TUBE TOP SCH (08:56)
[2019-08-24] MEDS: ACIDOPHILUS/BULGARICUS CHEW TAB GT SCH ×2 (08:56→21:54)
[2019-08-24] MEDS: SERTRALINE 25 MG GT SCH (08:56)
[2019-08-24] MEDS: HYDROGEN PEROXIDE 3% 118 ML BOTTLE TP SCH ×2 (09:00→20:57)
--- NOTE | 2019-08-24 18:00 | NUR ---
SEEN BY JAI LENNON N.P. AND WITH NNO.
[2019-08-24 20:30] VITALS: BP 107/83
[2019-08-24] MEDS: MULTIVIT, IRON, MIN NO. 8, FA TABLET GT SCH (21:54)
[2019-08-24] MEDS: SIMVASTATIN 10 MG TABLET GT SCH (21:54)
[2019-08-24] MEDS: ASCORBIC ACID 500 MG TABLET GT SCH (21:54)
[2019-08-25] MEDS: BACLOFEN 10 MG TABLET GT SCH ×4 (00:18→17:57)
[2019-08-25] MEDS: ARGININE/GLUTAMINE/CALCIUM BMB 1 EACH POWD.PACK GT SCH ×2 (05:08→17:57)
[2019-08-25] MEDS: PROTEIN SUPPLEMENT (PROSTAT) 30 ML LIQUID GT SCH ×3 (05:08→21:10)
[2019-08-25] MEDS: OMEPRAZOLE 20 MG CAPSULE.DR GT SCH (05:08)
[2019-08-25 08:00] VITALS: BP 109/63
[2019-08-25] MEDS: HYDROGEN PEROXIDE 3% 118 ML BOTTLE TP SCH ×2 (09:00→21:14)
[2019-08-25] MEDS: THERAHONEY GEL 1.5 OZ TUBE TOP SCH (09:01)
[2019-08-25] MEDS: ACETAMINOPHEN 650 MG/20.3 ML LIQUID UDC GT SCH (09:01)
[2019-08-25] MEDS: ACIDOPHILUS/BULGARICUS CHEW TAB GT SCH ×2 (09:01→21:10)
[2019-08-25] MEDS: COD LIVER OIL/ZINC OXIDE OINT 113 GM TUBE TP SCH ×2 (09:01→21:10)
[2019-08-25] MEDS: SERTRALINE 25 MG GT SCH (09:01)
[2019-08-25 20:57] VITALS: BP 104/68
[2019-08-25] MEDS: TEMAZEPAM 7.5 MG CAPSULE GT PRN (21:10)
[2019-08-25] MEDS: ASCORBIC ACID 500 MG TABLET GT SCH (21:10)
[2019-08-25] MEDS: SIMVASTATIN 10 MG TABLET GT SCH (21:10)
[2019-08-25] MEDS: MULTIVIT, IRON, MIN NO. 8, FA TABLET GT SCH (21:10)
[2019-08-26] MEDS: ARGININE/GLUTAMINE/CALCIUM BMB 1 EACH POWD.PACK GT SCH ×2 (06:13→17:03)
[2019-08-26] MEDS: BACLOFEN 10 MG TABLET GT SCH ×5 (06:13→23:49)
[2019-08-26] MEDS: PROTEIN SUPPLEMENT (PROSTAT) 30 ML LIQUID GT SCH ×3 (06:13→21:23)
[2019-08-26] MEDS: OMEPRAZOLE 20 MG CAPSULE.DR GT SCH (06:13)
[2019-08-26 08:00] VITALS: BP 103/63
[2019-08-26] MEDS: ACIDOPHILUS/BULGARICUS CHEW TAB GT SCH ×2 (08:39→21:21)
[2019-08-26] MEDS: SERTRALINE 25 MG GT SCH (08:39)
[2019-08-26] MEDS: THERAHONEY GEL 1.5 OZ TUBE TOP SCH (08:39)
[2019-08-26] MEDS: COD LIVER OIL/ZINC OXIDE OINT 113 GM TUBE TP SCH ×2 (08:39→21:23)
[2019-08-26] MEDS: ACETAMINOPHEN 650 MG/20.3 ML LIQUID UDC GT SCH (08:39)
[2019-08-26] MEDS: HYDROGEN PEROXIDE 3% 118 ML BOTTLE TP SCH ×2 (09:00→21:00)
[2019-08-26] MEDS: HYDROCODONE/APAP 5-325MG TABLET GT PRN (16:19)
[2019-08-26] MEDS: JEVITY 1.2 1000 ML LIQUID GT PRN (16:19)
[2019-08-26 20:56] VITALS: BP 116/60
[2019-08-26] MEDS: ASCORBIC ACID 500 MG TABLET GT SCH (21:22)
[2019-08-26] MEDS: MULTIVIT, IRON, MIN NO. 8, FA TABLET GT SCH (21:22)
[2019-08-26] MEDS: SIMVASTATIN 10 MG TABLET GT SCH (21:23)
[2019-08-26] MEDS: TEMAZEPAM 7.5 MG CAPSULE GT PRN (21:24)
[2019-08-27] MEDS: PROTEIN SUPPLEMENT (PROSTAT) 30 ML LIQUID GT SCH ×3 (06:06→21:28)
[2019-08-27] MEDS: ARGININE/GLUTAMINE/CALCIUM BMB 1 EACH POWD.PACK GT SCH ×2 (06:06→17:55)
[2019-08-27] MEDS: OMEPRAZOLE 20 MG CAPSULE.DR GT SCH (06:06)
[2019-08-27] MEDS: BACLOFEN 10 MG TABLET GT SCH ×3 (06:06→17:55)
[2019-08-27 08:00] VITALS: BP 104/47
[2019-08-27] MEDS: HYDROGEN PEROXIDE 3% 118 ML BOTTLE TP SCH ×2 (09:00→20:57)
[2019-08-27] MEDS: SERTRALINE 25 MG GT SCH (09:18)
[2019-08-27] MEDS: ACIDOPHILUS/BULGARICUS CHEW TAB GT SCH ×2 (09:18→21:31)
[2019-08-27] MEDS: COD LIVER OIL/ZINC OXIDE OINT 113 GM TUBE TP SCH ×2 (09:18→21:28)
[2019-08-27] MEDS: ACETAMINOPHEN 650 MG/20.3 ML LIQUID UDC GT SCH (09:18)
[2019-08-27] MEDS: THERAHONEY GEL 1.5 OZ TUBE TOP SCH (09:40)
[2019-08-27] MEDS: HYDROGEN PEROXIDE 3% 118 ML BOTTLE TP PRN (10:30)
--- NOTE | 2019-08-27 15:43 | NUR ---
INTERDISCIPLINARY PLAN OF CARE CONFERENCE was held today. Patient's daughter was unable to attend the meeting. Dr. Sylvester and the Interdisciplinary Team reviewed the current plan of care in detail. RN reported on patient's medical condition and ongoing wound care. See RN IDT conference notes. No major changes in condition were reported. See also all other disciplines IDT notes and physician's progress notes for additional details.
--- NOTE | 2019-08-27 15:44 | NUR ---
Pharmacy Update from Today's 08/27/19 IDT meeting VS: Temp 98.3 BP 104/47 HR 89 LABS: (from 07/21/19, no new labs) Wbc 9.9 H/H 14.4/44.4 Plt 149 Na 147 K 3.9 Cl 109 CO2 30 BUN/SCr 35/0.8 BS 138 Ca 9.2 MEDICATION USE REVIEWED: > Pt not on any anti-seizure medications > Pt on Restoril 7.5mg HS PRN + 7.5mg PRN one hr later since last GDR on 04/03/19. Monitored hours of sleep in Feb: 5hrx1, 6x1, 7x17, 8x6. PRN used x6 and repeat x0 in Feb, about the same usage as previous months. No issues noted per staff. > Pt continues on Zoloft 25mg daily after failed GDR as of 05/18/19 for depression m/b sadness (pt able to verbalize/mouth in response). Patient affirmed 0 episodes sadness in Feb. No side effects noted per pt or staff. Will follow > PRN MED USAGE: (Jul) Tylenol for pain/temp used x2 Artificial Tears used x0 [place] used x0 Benadryl used x0 NEW ORDERS NOTED: > NA Patient reviewed and discussed in detail at IDT with no issues noted per staff at this time. No medication recommendations per rx at this time as pt remains stable on current regimen. Will continue to follow
[2019-08-27] MEDS: JEVITY 1.2 1000 ML LIQUID GT PRN (17:55)
[2019-08-27] MEDS: ACETAMINOPHEN 650 MG/20 ML UDC- SA PATIENTS-PAIN ONLY GT PRN (17:57)
[2019-08-27 20:15] VITALS: BP 113/60
[2019-08-27] MEDS: TEMAZEPAM 7.5 MG CAPSULE GT PRN (21:28)
[2019-08-27] MEDS: ASCORBIC ACID 500 MG TABLET GT SCH (21:28)
[2019-08-27] MEDS: MULTIVIT, IRON, MIN NO. 8, FA TABLET GT SCH (21:28)
[2019-08-27] MEDS: SIMVASTATIN 10 MG TABLET GT SCH (21:28)
[2019-08-28] MEDS: BACLOFEN 10 MG TABLET GT SCH ×4 (00:55→18:35)
[2019-08-28] MEDS: OMEPRAZOLE 20 MG CAPSULE.DR GT SCH (06:01)
[2019-08-28] MEDS: PROTEIN SUPPLEMENT (PROSTAT) 30 ML LIQUID GT SCH ×3 (06:01→21:51)
[2019-08-28] MEDS: ARGININE/GLUTAMINE/CALCIUM BMB 1 EACH POWD.PACK GT SCH ×2 (06:01→18:34)
[2019-08-28] MEDS: HYDROGEN PEROXIDE 3% 118 ML BOTTLE TP SCH ×2 (08:25→20:46)
[2019-08-28] MEDS: ACETAMINOPHEN 650 MG/20.3 ML LIQUID UDC GT SCH (08:30)
[2019-08-28] MEDS: SERTRALINE 25 MG GT SCH (09:00)
[2019-08-28] MEDS: THERAHONEY GEL 1.5 OZ TUBE TOP SCH (09:00)
[2019-08-28] MEDS: ACIDOPHILUS/BULGARICUS CHEW TAB GT SCH ×2 (09:00→21:50)
[2019-08-28] MEDS: COD LIVER OIL/ZINC OXIDE OINT 113 GM TUBE TP SCH ×2 (09:00→21:51)
[2019-08-28 10:50] VITALS: BP 113/60
[2019-08-28] MEDS: JEVITY 1.2 1000 ML LIQUID GT PRN (18:38)
[2019-08-28 20:49] VITALS: BP 111/52
[2019-08-28] MEDS: TEMAZEPAM 7.5 MG CAPSULE GT PRN (21:00)
[2019-08-28] MEDS: MULTIVIT, IRON, MIN NO. 8, FA TABLET GT SCH (21:51)
[2019-08-28] MEDS: SIMVASTATIN 10 MG TABLET GT SCH (21:51)
[2019-08-28] MEDS: ASCORBIC ACID 500 MG TABLET GT SCH (21:51)
[2019-08-29] MEDS: BACLOFEN 10 MG TABLET GT SCH ×4 (00:45→18:17)
[2019-08-29] MEDS: OMEPRAZOLE 20 MG CAPSULE.DR GT SCH (05:44)
[2019-08-29] MEDS: ARGININE/GLUTAMINE/CALCIUM BMB 1 EACH POWD.PACK GT SCH ×2 (05:44→18:17)
[2019-08-29] MEDS: PROTEIN SUPPLEMENT (PROSTAT) 30 ML LIQUID GT SCH ×3 (05:44→21:36)
[2019-08-29] MEDS: HYDROGEN PEROXIDE 3% 118 ML BOTTLE TP SCH ×2 (09:00→21:00)
[2019-08-29] MEDS: SERTRALINE 25 MG GT SCH (09:12)
[2019-08-29] MEDS: ACETAMINOPHEN 650 MG/20.3 ML LIQUID UDC GT SCH (09:12)
[2019-08-29] MEDS: ACIDOPHILUS/BULGARICUS CHEW TAB GT SCH ×2 (09:12→21:35)
[2019-08-29] MEDS: THERAHONEY GEL 1.5 OZ TUBE TOP SCH (09:12)
[2019-08-29] MEDS: COD LIVER OIL/ZINC OXIDE OINT 113 GM TUBE TP SCH ×2 (09:13→21:36)
[2019-08-29 10:44] VITALS: BP 101/52
[2019-08-29 20:10] VITALS: BP 97/43
[2019-08-29] MEDS: SIMVASTATIN 10 MG TABLET GT SCH (21:35)
[2019-08-29] MEDS: ASCORBIC ACID 500 MG TABLET GT SCH (21:35)
[2019-08-29] MEDS: MULTIVIT, IRON, MIN NO. 8, FA TABLET GT SCH (21:35)
[2019-08-29] MEDS: TEMAZEPAM 7.5 MG CAPSULE GT PRN (22:07)
[2019-08-30] MEDS: ARGININE/GLUTAMINE/CALCIUM BMB 1 EACH POWD.PACK GT SCH ×2 (05:50→17:47)
[2019-08-30] MEDS: OMEPRAZOLE 20 MG CAPSULE.DR GT SCH (05:51)
[2019-08-30] MEDS: BACLOFEN 10 MG TABLET GT SCH ×4 (05:51→17:47)
[2019-08-30] MEDS: PROTEIN SUPPLEMENT (PROSTAT) 30 ML LIQUID GT SCH ×3 (05:51→22:52)
[2019-08-30] MEDS: SERTRALINE 25 MG GT SCH (08:56)
[2019-08-30] MEDS: COD LIVER OIL/ZINC OXIDE OINT 113 GM TUBE TP SCH ×2 (08:56→21:00)
[2019-08-30] MEDS: ACIDOPHILUS/BULGARICUS CHEW TAB GT SCH ×2 (08:56→21:00)
[2019-08-30] MEDS: ACETAMINOPHEN 650 MG/20.3 ML LIQUID UDC GT SCH (08:56)
[2019-08-30] MEDS: THERAHONEY GEL 1.5 OZ TUBE TOP SCH (08:56)
[2019-08-30] MEDS: HYDROGEN PEROXIDE 3% 118 ML BOTTLE TP SCH ×2 (09:00→20:56)
[2019-08-30 11:09] VITALS: BP 117/59
--- NOTE | 2019-08-30 16:15 | NUR ---
This and Subacute Guest Attendant Bao Paz provided an update to patient's daughter Ludmila via email that per advisement from [facility], [facility], and CDC, visitation restrictions will continue to remain in place for all continuous churn buttermaker care facilities in order to protect the health and safety of residents and staff. Therefore [facility] will continue to restrict all visitations, until further notice.
[2019-08-30 20:10] VITALS: BP 96/54
[2019-08-30] MEDS: ASCORBIC ACID 500 MG TABLET GT SCH (21:00)
[2019-08-30] MEDS: SIMVASTATIN 10 MG TABLET GT SCH (21:00)
[2019-08-30] MEDS: MULTIVIT, IRON, MIN NO. 8, FA TABLET GT SCH (21:00)
[2019-08-31] MEDS: PROTEIN SUPPLEMENT (PROSTAT) 30 ML LIQUID GT SCH ×3 (06:19→22:30)
[2019-08-31] MEDS: ARGININE/GLUTAMINE/CALCIUM BMB 1 EACH POWD.PACK GT SCH ×2 (06:20→17:30)
[2019-08-31] MEDS: OMEPRAZOLE 20 MG CAPSULE.DR GT SCH (06:22)
[2019-08-31] MEDS: BACLOFEN 10 MG TABLET GT SCH ×4 (06:22→17:30)
[2019-08-31] MEDS: HYDROGEN PEROXIDE 3% 118 ML BOTTLE TP SCH ×2 (08:05→20:02)
[2019-08-31] MEDS: COD LIVER OIL/ZINC OXIDE OINT 113 GM TUBE TP SCH ×2 (09:10→20:01)
[2019-08-31] MEDS: SERTRALINE 25 MG GT SCH (09:10)
[2019-08-31] MEDS: ACETAMINOPHEN 650 MG/20.3 ML LIQUID UDC GT SCH (09:10)
[2019-08-31] MEDS: ACIDOPHILUS/BULGARICUS CHEW TAB GT SCH ×2 (09:10→20:00)
[2019-08-31] MEDS: THERAHONEY GEL 1.5 OZ TUBE TOP SCH (09:10)
[2019-08-31 10:30] VITALS: BP 106/52
[2019-08-31] MEDS: MULTIVIT, IRON, MIN NO. 8, FA TABLET GT SCH (20:01)
[2019-08-31] MEDS: ASCORBIC ACID 500 MG TABLET GT SCH (20:01)
[2019-08-31] MEDS: SIMVASTATIN 10 MG TABLET GT SCH (20:01)
[2019-08-31] MEDS: ACETAMINOPHEN 650 MG/20 ML UDC- SA PATIENTS-FEVER ONLY GT PRN (20:03)
[2019-08-31 20:10] VITALS: BP 99/60
[2019-09-01] MEDS: ARGININE/GLUTAMINE/CALCIUM BMB 1 EACH POWD.PACK GT SCH ×2 (05:40→17:47)
[2019-09-01] MEDS: OMEPRAZOLE 20 MG CAPSULE.DR GT SCH (05:40)
[2019-09-01] MEDS: BACLOFEN 10 MG TABLET GT SCH ×5 (05:40→23:33)
[2019-09-01] MEDS: PROTEIN SUPPLEMENT (PROSTAT) 30 ML LIQUID GT SCH ×3 (05:43→22:08)
[2019-09-01 08:02] VITALS: BP 118/52
[2019-09-01] MEDS: HYDROGEN PEROXIDE 3% 118 ML BOTTLE TP SCH ×2 (08:29→20:27)
[2019-09-01] MEDS: THERAHONEY GEL 1.5 OZ TUBE TOP SCH (09:02)
[2019-09-01] MEDS: ACETAMINOPHEN 650 MG/20.3 ML LIQUID UDC GT SCH (09:02)
[2019-09-01] MEDS: COD LIVER OIL/ZINC OXIDE OINT 113 GM TUBE TP SCH ×2 (09:02→21:00)
[2019-09-01] MEDS: SERTRALINE 25 MG GT SCH (09:02)
[2019-09-01] MEDS: ACIDOPHILUS/BULGARICUS CHEW TAB GT SCH ×2 (09:02→21:00)
[2019-09-01] MEDS: JEVITY 1.2 1000 ML LIQUID GT PRN (15:05)
--- NOTE | 2019-09-01 15:33 | NUR ---
Spoke to Dr Hankins regarding pt has a elevated temp 100.1 with new orders noted ,and carried out.Pt aware of new orders,agree with plane of care. Addendum: 09/01/19 at 1957 by ROBERTO AGUILAR RN PLAN OF CARE
[2019-09-01] MEDS: VANCOMYCIN IV 1,000 MG in IV DEXTROSE 5% 250 ML IV SCH (18:00)
[2019-09-01 18:31] LABS: *BILIRUBIN,URIN NEGATIVE (NEGATIVE); *BLOOD, URINE 2+ (NEGATIVE); *CLARITY,URINE SLIGHTLY CLOUDY (CLEAR); *COLOR,URINE YELLOW (YELLOW); *KETONES,URINE NEGATIVE (NEGATIVE); *UROBILINOGEN,URINE 0.2 E.U./dl (NORMAL); LEUKOCYTE ESTERASE ,URINE 3+ (NEGATIVE); NITRITE, URINE NEGATIVE (NEGATIVE); PH,URINE 7.5 (5.0-8.0); UGLUCOSE NEGATIVE (NEGATIVE)
[2019-09-01 18:37] LABS: BACTERIA,URINE MODERATE /HPF (NONE SEEN); SQUAMOUS EPITHELIAL CELL,UR MANY /HPF (NONE SEEN); WBC,URINE 20-50 /HPF (0-3)
[2019-09-01 19:04] VITALS: BP 106/49
--- NOTE | 2019-09-01 19:30 | NUR ---
START ON VANCOMYCIN ORDERED,NO ADVERSE REACTION NOTED.
--- NOTE | 2019-09-01 20:00 | NUR ---
Temperature is 101.3 , patient feels hot, cooling measures initiated, Vancomycin is infusing at this time, no adverse reactions noted, will also start on Merrem 1 gram IV every 8 hours for the fever, blood cultures and urinalysis sent as ordered, blood works and CXR in am, Fluids given as ordered, denies any respiratory distress, suctioned with moderate pale yellow secretions, no SOB, 02 sat is 98%, kept clean and comfortable, will continue monitor.
[2019-09-01 20:07] VITALS: BP 119/53
[2019-09-01] MEDS: ASCORBIC ACID 500 MG TABLET GT SCH (21:00)
[2019-09-01] MEDS: SIMVASTATIN 10 MG TABLET GT SCH (21:00)
[2019-09-01] MEDS: MULTIVIT, IRON, MIN NO. 8, FA TABLET GT SCH (21:00)
[2019-09-01] MEDS: MEROPENEM 1 G in IV NORMAL SALINE 100 ML IV SCH (21:02)
[2019-09-01] MEDS: ACETAMINOPHEN 650 MG/20 ML UDC- SA PATIENTS-FEVER ONLY GT PRN (22:09)
[2019-09-01 23:00] VITALS: BP 101/46
--- NOTE | 2019-09-01 23:00 | NUR ---
Patient's temperature is now 98.2, no signs of ant distress or SOB, Merrem is now infusing via IVPB, no adverse reactions noted. kept clean and comfortable, will continue monitor.
--- NOTE | 2019-09-02 01:00 | NUR ---
Patient is sleeping comfortably, no signs of any respiratory distress noted, Temperature is now 98.3, turned and repositioned, kept clean and comfortable, will continue monitor.
[2019-09-02 01:10] VITALS: BP 119/57
[2019-09-02] MEDS: MEROPENEM 1 G in IV NORMAL SALINE 100 ML IV SCH ×3 (05:39→21:15)
[2019-09-02 06:06] LABS: BASOPHILS # (AUTO) 0.1 K/uL (0.0-8.0); BASOPHILS % (AUTO) 1.1 % (0.0-2.0); EOSINOPHILS # (AUTO) 0.3 K/uL (0.0-0.7); EOSINOPHILS % (AUTO) 3.7 % (0.0-7.0); HEMATOCRIT 39.3 % (31.2-41.9); HEMOGLOBIN 12.6 g/dL (10.9-14.3); LYMPHOCYTES # (AUTO) 2.6 K/uL (20.0-40.0); LYMPHOCYTES % (AUTO) 28.2 % (20.5-51.5); MEAN CORPUSCULAR HEMOGLOBIN 29.7 uug (24.7-32.8); MEAN CORPUSCULAR HGB CONC 32 g/dL (32.3-35.6); MEAN CORPUSCULAR VOLUME 92.2 fL (75.5-95.3); MONOCYTES # (AUTO) 0.9 K/uL (2.0-10.0); MONOCYTES % (AUTO) 9.3 % (0.0-11.0); NEUTROPHILS # (AUTO) 5.4 K/uL (1.8-8.9); NEUTROPHILS % (AUTO) 57.7 % (38.5-71.5); PLATELET COUNT (AUTO) 194 K/uL (179-408); RED BLOOD CELL COUNT(AUTO) 4.26 MIL/uL (3.63-4.92); WHITE BLOOD COUNT (AUTO) 9.3 K/uL (3.8-11.8)
[2019-09-02] MEDS: ARGININE/GLUTAMINE/CALCIUM BMB 1 EACH POWD.PACK GT SCH ×2 (06:09→18:03)
[2019-09-02] MEDS: OMEPRAZOLE 20 MG CAPSULE.DR GT SCH (06:09)
[2019-09-02] MEDS: BACLOFEN 10 MG TABLET GT SCH ×3 (06:09→18:03)
[2019-09-02] MEDS: PROTEIN SUPPLEMENT (PROSTAT) 30 ML LIQUID GT SCH ×3 (06:09→21:33)
[2019-09-02 06:18] LABS: BILIRUBIN,TOTAL 0.5 mg/dL (0.2-1.0); CREATININE 0.8 mg/dL (0.6-1.3); TOTAL PROTEIN, SERUM 7.5 g/dL (6.4-8.2)
[2019-09-02 06:32] VITALS: BP 107/49
[2019-09-02 08:03] VITALS: BP 114/51
[2019-09-02] MEDS: COD LIVER OIL/ZINC OXIDE OINT 113 GM TUBE TP SCH ×2 (09:03→20:26)
[2019-09-02] MEDS: SERTRALINE 25 MG GT SCH (09:03)
[2019-09-02] MEDS: ACETAMINOPHEN 650 MG/20.3 ML LIQUID UDC GT SCH (09:03)
[2019-09-02] MEDS: THERAHONEY GEL 1.5 OZ TUBE TOP SCH (09:03)
[2019-09-02] MEDS: ACIDOPHILUS/BULGARICUS CHEW TAB GT SCH ×2 (09:03→20:26)
[2019-09-02] MEDS: HYDROGEN PEROXIDE 3% 118 ML BOTTLE TP SCH ×2 (09:36→20:50)
--- NOTE | 2019-09-02 12:06 | NUR ---
Seen by Dionna Hermosillo. notified patient c/o right arm pain, new orders given for elbow, shoulder xray, and Doppler ultrasound, comfort measures given.
--- NOTE | 2019-09-02 12:30 | NUR ---
Dr. Armendariz notified of bmp result Na 153, pt on 250ml gtube water flushes, no new orders given at this time.
[2019-09-02] MEDS: VANCOMYCIN IV 1,000 MG in IV DEXTROSE 5% 250 ML IV SCH (18:04)
[2019-09-02] MEDS: JEVITY 1.2 1000 ML LIQUID GT PRN (18:13)
[2019-09-02 20:26] VITALS: BP 110/46
[2019-09-02] MEDS: SIMVASTATIN 10 MG TABLET GT SCH (20:26)
[2019-09-02] MEDS: ASCORBIC ACID 500 MG TABLET GT SCH (20:26)
[2019-09-02] MEDS: MULTIVIT, IRON, MIN NO. 8, FA TABLET GT SCH (20:26)
--- NOTE | 2019-09-02 20:30 | NUR ---
Temperature is 98.8, patient is awake, denies any distress at this time. Remains on IV Vancomycin and Merrem for fever, no adverse reactions noted. Suctioned with moderate pale yellow secretions, 02 sat at 98%, kept clean and comfortable.
[2019-09-02] MEDS: TEMAZEPAM 7.5 MG CAPSULE GT PRN (21:33)
[2019-09-02 22:00] VITALS: BP 107/41
[2019-09-03 00:05] VITALS: BP 101/41
[2019-09-03] MEDS: BACLOFEN 10 MG TABLET GT SCH ×4 (00:37→18:14)
[2019-09-03 02:00] VITALS: BP 101/51
[2019-09-03 04:00] VITALS: BP 109/47
[2019-09-03] MEDS: MEROPENEM 1 G in IV NORMAL SALINE 100 ML IV SCH ×3 (05:00→21:58)
[2019-09-03] MEDS: PROTEIN SUPPLEMENT (PROSTAT) 30 ML LIQUID GT SCH ×3 (05:09→21:30)
[2019-09-03] MEDS: OMEPRAZOLE 20 MG CAPSULE.DR GT SCH (05:09)
[2019-09-03] MEDS: ARGININE/GLUTAMINE/CALCIUM BMB 1 EACH POWD.PACK GT SCH ×2 (05:09→18:14)
[2019-09-03 06:22] VITALS: BP 111/52
[2019-09-03 08:03] VITALS: BP 121/62
[2019-09-03] MEDS: ACETAMINOPHEN 650 MG/20.3 ML LIQUID UDC GT SCH (08:30)
[2019-09-03] MEDS: HYDROGEN PEROXIDE 3% 118 ML BOTTLE TP SCH ×2 (09:34→21:52)
[2019-09-03] MEDS: SERTRALINE 25 MG GT SCH (09:53)
[2019-09-03] MEDS: THERAHONEY GEL 1.5 OZ TUBE TOP SCH (09:53)
[2019-09-03] MEDS: COD LIVER OIL/ZINC OXIDE OINT 113 GM TUBE TP SCH ×2 (09:53→21:30)
[2019-09-03] MEDS: ACIDOPHILUS/BULGARICUS CHEW TAB GT SCH ×2 (09:53→21:28)
--- NOTE | 2019-09-03 15:25 | NUR ---
Seen by Judsantiago RFID TECHNICIAN aware of the preliminary culture results ,with new orders to discontinue vancomycin.carried out.
[2019-09-03 17:36] LABS: CREATININE 0.8 mg/dL (0.6-1.3)
[2019-09-03] MEDS: JEVITY 1.2 1000 ML LIQUID GT PRN (18:14)
[2019-09-03 20:58] VITALS: BP 105/45
[2019-09-03] MEDS: MULTIVIT, IRON, MIN NO. 8, FA TABLET GT SCH (21:28)
[2019-09-03] MEDS: SIMVASTATIN 10 MG TABLET GT SCH (21:29)
[2019-09-03] MEDS: ASCORBIC ACID 500 MG TABLET GT SCH (21:29)
[2019-09-04] MEDS: MEROPENEM 1 G in IV NORMAL SALINE 100 ML IV SCH ×3 (04:23→21:09)
[2019-09-04] MEDS: BACLOFEN 10 MG TABLET GT SCH ×4 (05:15→17:02)
[2019-09-04] MEDS: ARGININE/GLUTAMINE/CALCIUM BMB 1 EACH POWD.PACK GT SCH ×2 (05:15→17:02)
[2019-09-04] MEDS: OMEPRAZOLE 20 MG CAPSULE.DR GT SCH (05:16)
[2019-09-04] MEDS: PROTEIN SUPPLEMENT (PROSTAT) 30 ML LIQUID GT SCH ×3 (05:16→21:38)
[2019-09-04] MEDS: ACETAMINOPHEN 650 MG/20.3 ML LIQUID UDC GT SCH (08:30)
[2019-09-04] MEDS: THERAHONEY GEL 1.5 OZ TUBE TOP SCH (09:00)
[2019-09-04] MEDS: ACIDOPHILUS/BULGARICUS CHEW TAB GT SCH ×2 (09:00→21:36)
[2019-09-04] MEDS: COD LIVER OIL/ZINC OXIDE OINT 113 GM TUBE TP SCH ×2 (09:00→21:38)
[2019-09-04] MEDS: SERTRALINE 25 MG GT SCH (09:00)
[2019-09-04] MEDS: HYDROGEN PEROXIDE 3% 118 ML BOTTLE TP SCH ×2 (09:45→21:33)
[2019-09-04 11:50] VITALS: BP 115/55
--- NOTE | 2019-09-04 14:00 | NUR ---
Chief Resource Officer care done by Dr Mancini.
[2019-09-04] MEDS: JEVITY 1.2 1000 ML LIQUID GT PRN (17:02)
--- NOTE | 2019-09-04 17:30 | NUR ---
SEEN AND EXAMINED BY DR TURCIOS WITH NEW ORDERS NOTED FOR PROCALCITONIN IN AM.CONTINUE ON IVATB,MERREN NO ADVERSE REACTION NOTED.IV SITE INTACT.
--- NOTE | 2019-09-04 18:24 | NUR ---
Seen and examined by Ludmila Rubalcava Np no new orders noted.
[2019-09-04 20:40] VITALS: BP 97/66
[2019-09-04] MEDS: SIMVASTATIN 10 MG TABLET GT SCH (21:38)
[2019-09-04] MEDS: ASCORBIC ACID 500 MG TABLET GT SCH (21:38)
[2019-09-04] MEDS: MULTIVIT, IRON, MIN NO. 8, FA TABLET GT SCH (21:38)
[2019-09-05] MEDS: BACLOFEN 10 MG TABLET GT SCH ×4 (00:51→17:14)
--- NOTE | 2019-09-05 04:37 | NUR ---
CONTINUE ON MERREM 1 GM IV FOR FEVER, NO ADVERSE REACTION NOTED, NO RESPIRATORY DISTRESS NOTED.
[2019-09-05] MEDS: MEROPENEM 1 G in IV NORMAL SALINE 100 ML IV SCH (05:04)
[2019-09-05] MEDS: PROTEIN SUPPLEMENT (PROSTAT) 30 ML LIQUID GT SCH ×3 (05:46→21:51)
[2019-09-05] MEDS: OMEPRAZOLE 20 MG CAPSULE.DR GT SCH (05:46)
[2019-09-05] MEDS: ARGININE/GLUTAMINE/CALCIUM BMB 1 EACH POWD.PACK GT SCH ×2 (05:46→17:14)
[2019-09-05 08:05] VITALS: BP 113/63
[2019-09-05] MEDS: ACIDOPHILUS/BULGARICUS CHEW TAB GT SCH ×2 (08:45→21:48)
[2019-09-05] MEDS: ACETAMINOPHEN 650 MG/20.3 ML LIQUID UDC GT SCH (08:45)
[2019-09-05] MEDS: COD LIVER OIL/ZINC OXIDE OINT 113 GM TUBE TP SCH ×2 (08:46→21:51)
[2019-09-05] MEDS: SERTRALINE 25 MG GT SCH (08:46)
[2019-09-05] MEDS: THERAHONEY GEL 1.5 OZ TUBE TOP SCH (08:46)
[2019-09-05] MEDS: HYDROGEN PEROXIDE 3% 118 ML BOTTLE TP SCH ×2 (09:50→20:59)
--- NOTE | 2019-09-05 12:15 | NUR ---
PT.WAS SEEN AND EXAMINED BY FERNANDO FU AND WITH NEW ORDER CARRIED OUT.
[2019-09-05 20:54] VITALS: BP 114/53
[2019-09-05] MEDS: MULTIVIT, IRON, MIN NO. 8, FA TABLET GT SCH (21:49)
[2019-09-05] MEDS: ASCORBIC ACID 500 MG TABLET GT SCH (21:50)
[2019-09-05] MEDS: SIMVASTATIN 10 MG TABLET GT SCH (21:51)
[2019-09-05] MEDS: JEVITY 1.2 1000 ML LIQUID GT PRN (22:00)
[2019-09-06] MEDS: PROTEIN SUPPLEMENT (PROSTAT) 30 ML LIQUID GT SCH ×3 (05:28→21:17)
[2019-09-06] MEDS: BACLOFEN 10 MG TABLET GT SCH ×5 (05:28→23:09)
[2019-09-06] MEDS: OMEPRAZOLE 20 MG CAPSULE.DR GT SCH (05:28)
[2019-09-06] MEDS: ARGININE/GLUTAMINE/CALCIUM BMB 1 EACH POWD.PACK GT SCH ×2 (05:28→17:21)
[2019-09-06] MEDS: THERAHONEY GEL 1.5 OZ TUBE TOP SCH (08:25)
[2019-09-06] MEDS: SERTRALINE 25 MG GT SCH (08:25)
[2019-09-06] MEDS: ACETAMINOPHEN 650 MG/20.3 ML LIQUID UDC GT SCH (08:25)
[2019-09-06] MEDS: ACIDOPHILUS/BULGARICUS CHEW TAB GT SCH ×2 (08:25→21:17)
[2019-09-06] MEDS: COD LIVER OIL/ZINC OXIDE OINT 113 GM TUBE TP SCH ×2 (08:25→21:17)
[2019-09-06] MEDS: HYDROGEN PEROXIDE 3% 118 ML BOTTLE TP SCH ×2 (09:00→21:21)
--- NOTE | 2019-09-06 12:00 | NUR ---
SEEN AND EXAMINED BY FERNANDO FU AND WITH RAINEO.
--- NOTE | 2019-09-06 12:30 | NUR ---
SEEN AND EXAMINED BY FERNANDO FU AND WITH NNO ,AND AWARE OF SPUTUM RESPIRATORY CULTURE.
[2019-09-06 20:33] VITALS: BP 114/51
[2019-09-06] MEDS: MULTIVIT, IRON, MIN NO. 8, FA TABLET GT SCH (21:17)
[2019-09-06] MEDS: SIMVASTATIN 10 MG TABLET GT SCH (21:17)
[2019-09-06] MEDS: ASCORBIC ACID 500 MG TABLET GT SCH (21:17)
[2019-09-06] MEDS: TEMAZEPAM 7.5 MG CAPSULE GT PRN (21:23)
[2019-09-06] MEDS: JEVITY 1.2 1000 ML LIQUID GT PRN (21:23)
[2019-09-07] MEDS: OMEPRAZOLE 20 MG CAPSULE.DR GT SCH (05:42)
[2019-09-07] MEDS: BACLOFEN 10 MG TABLET GT SCH ×4 (05:42→23:15)
[2019-09-07] MEDS: ARGININE/GLUTAMINE/CALCIUM BMB 1 EACH POWD.PACK GT SCH ×2 (05:42→17:25)
[2019-09-07] MEDS: PROTEIN SUPPLEMENT (PROSTAT) 30 ML LIQUID GT SCH ×3 (05:42→21:15)
[2019-09-07] MEDS: HYDROGEN PEROXIDE 3% 118 ML BOTTLE TP SCH ×2 (08:05→19:19)
[2019-09-07] MEDS: ACIDOPHILUS/BULGARICUS CHEW TAB GT SCH ×2 (08:29→21:15)
[2019-09-07] MEDS: COD LIVER OIL/ZINC OXIDE OINT 113 GM TUBE TP SCH ×2 (08:29→21:15)
[2019-09-07] MEDS: ACETAMINOPHEN 650 MG/20.3 ML LIQUID UDC GT SCH (08:29)
[2019-09-07] MEDS: SERTRALINE 25 MG GT SCH (08:29)
[2019-09-07] MEDS: THERAHONEY GEL 1.5 OZ TUBE TOP SCH (08:29)
[2019-09-07 08:30] VITALS: BP_SYST 101; BP_SYST 107; BP_DIAS 51; BP_DIAS 64
--- NOTE | 2019-09-07 09:20 | NUR ---
SEEN AND EXAMINED BY JAI LENNON AND WITH RAINEO.
[2019-09-07 19:47] VITALS: BP 113/62
[2019-09-07] MEDS: TEMAZEPAM 7.5 MG CAPSULE GT PRN (21:10)
[2019-09-07] MEDS: ASCORBIC ACID 500 MG TABLET GT SCH (21:15)
[2019-09-07] MEDS: MULTIVIT, IRON, MIN NO. 8, FA TABLET GT SCH (21:15)
[2019-09-07] MEDS: SIMVASTATIN 10 MG TABLET GT SCH (21:15)
--- NOTE | 2019-09-07 22:36 | NUR ---
S/p IV Merrem and vancomycin for fever, no adverse reactions noted. Patient is afebrile, no signs of pain or discomfort, fluids given as ordered, kept clean and comfortable, will continue monitor.
[2019-09-07] MEDS: JEVITY 1.2 1000 ML LIQUID GT PRN (22:51)
[2019-09-08] MEDS: PROTEIN SUPPLEMENT (PROSTAT) 30 ML LIQUID GT SCH ×3 (05:53→21:17)
[2019-09-08] MEDS: ARGININE/GLUTAMINE/CALCIUM BMB 1 EACH POWD.PACK GT SCH ×2 (05:53→17:01)
[2019-09-08] MEDS: OMEPRAZOLE 20 MG CAPSULE.DR GT SCH (05:53)
[2019-09-08] MEDS: BACLOFEN 10 MG TABLET GT SCH ×4 (05:53→23:15)
[2019-09-08 08:03] VITALS: BP 102/40
[2019-09-08] MEDS: COD LIVER OIL/ZINC OXIDE OINT 113 GM TUBE TP SCH ×2 (08:43→21:17)
[2019-09-08] MEDS: ACIDOPHILUS/BULGARICUS CHEW TAB GT SCH ×2 (08:43→21:17)
[2019-09-08] MEDS: SERTRALINE 25 MG GT SCH (08:43)
[2019-09-08] MEDS: ACETAMINOPHEN 650 MG/20.3 ML LIQUID UDC GT SCH (08:43)
[2019-09-08] MEDS: THERAHONEY GEL 1.5 OZ TUBE TOP SCH (08:43)
[2019-09-08] MEDS: HYDROGEN PEROXIDE 3% 118 ML BOTTLE TP SCH ×2 (09:23→20:23)
[2019-09-08 19:57] VITALS: BP 111/52
[2019-09-08] MEDS: MULTIVIT, IRON, MIN NO. 8, FA TABLET GT SCH (21:17)
[2019-09-08] MEDS: SIMVASTATIN 10 MG TABLET GT SCH (21:17)
[2019-09-08] MEDS: ASCORBIC ACID 500 MG TABLET GT SCH (21:17)
[2019-09-08] MEDS: TEMAZEPAM 7.5 MG CAPSULE GT PRN (21:25)
[2019-09-09] MEDS: JEVITY 1.2 1000 ML LIQUID GT PRN (03:01)
[2019-09-09] MEDS: PROTEIN SUPPLEMENT (PROSTAT) 30 ML LIQUID GT SCH ×3 (05:53→21:05)
[2019-09-09] MEDS: OMEPRAZOLE 20 MG CAPSULE.DR GT SCH (05:53)
[2019-09-09] MEDS: ARGININE/GLUTAMINE/CALCIUM BMB 1 EACH POWD.PACK GT SCH ×2 (05:53→17:18)
[2019-09-09] MEDS: BACLOFEN 10 MG TABLET GT SCH ×4 (05:53→23:15)
[2019-09-09 08:03] VITALS: BP 105/48
[2019-09-09] MEDS: ACETAMINOPHEN 650 MG/20.3 ML LIQUID UDC GT SCH (08:30)
[2019-09-09] MEDS: ACIDOPHILUS/BULGARICUS CHEW TAB GT SCH ×2 (09:47→21:05)
[2019-09-09] MEDS: THERAHONEY GEL 1.5 OZ TUBE TOP SCH (09:48)
[2019-09-09] MEDS: SERTRALINE 25 MG GT SCH (09:48)
[2019-09-09] MEDS: COD LIVER OIL/ZINC OXIDE OINT 113 GM TUBE TP SCH ×2 (09:48→21:05)
[2019-09-09] MEDS: HYDROGEN PEROXIDE 3% 118 ML BOTTLE TP SCH ×2 (09:48→21:08)
--- NOTE | 2019-09-09 13:00 | NUR ---
SEEN AND EXAMINED BY AMY Lorenzo AND WITH NEW ORDERS CARRIED OUT.
[2019-09-09 19:57] VITALS: BP 108/60
[2019-09-09] MEDS: TEMAZEPAM 7.5 MG CAPSULE GT PRN (21:03)
[2019-09-09] MEDS: SIMVASTATIN 10 MG TABLET GT SCH (21:05)
[2019-09-09] MEDS: MULTIVIT, IRON, MIN NO. 8, FA TABLET GT SCH (21:05)
[2019-09-09] MEDS: ASCORBIC ACID 500 MG TABLET GT SCH (21:05)
[2019-09-10] MEDS: JEVITY 1.2 1000 ML LIQUID GT PRN (05:00)
[2019-09-10] MEDS: OMEPRAZOLE 20 MG CAPSULE.DR GT SCH (05:05)
[2019-09-10] MEDS: ARGININE/GLUTAMINE/CALCIUM BMB 1 EACH POWD.PACK GT SCH ×2 (05:05→17:56)
[2019-09-10] MEDS: PROTEIN SUPPLEMENT (PROSTAT) 30 ML LIQUID GT SCH ×3 (05:05→21:16)
[2019-09-10] MEDS: BACLOFEN 10 MG TABLET GT SCH ×3 (05:05→17:57)
[2019-09-10 06:50] LABS: BASOPHILS # (AUTO) 0.1 K/uL (0.0-8.0); BASOPHILS % (AUTO) 0.7 % (0.0-2.0); EOSINOPHILS # (AUTO) 0.3 K/uL (0.0-0.7); EOSINOPHILS % (AUTO) 3.5 % (0.0-7.0); HEMATOCRIT 42.1 % (31.2-41.9); HEMOGLOBIN 13.5 g/dL (10.9-14.3); LYMPHOCYTES # (AUTO) 2.3 K/uL (20.0-40.0); LYMPHOCYTES % (AUTO) 29.3 % (20.5-51.5); MEAN CORPUSCULAR HEMOGLOBIN 29.4 uug (24.7-32.8); MEAN CORPUSCULAR HGB CONC 32 g/dL (32.3-35.6); MEAN CORPUSCULAR VOLUME 91.8 fL (75.5-95.3); MONOCYTES # (AUTO) 0.7 K/uL (2.0-10.0); NEUTROPHILS # (AUTO) 4.5 K/uL (1.8-8.9); NEUTROPHILS % (AUTO) 57.5 % (38.5-71.5); PLATELET COUNT (AUTO) 186 K/uL (179-408); RED BLOOD CELL COUNT(AUTO) 4.58 MIL/uL (3.63-4.92); WHITE BLOOD COUNT (AUTO) 7.8 K/uL (3.8-11.8)
[2019-09-10 07:12] LABS: BILIRUBIN,TOTAL 0.5 mg/dL (0.2-1.0); CREATININE 0.7 mg/dL (0.6-1.3); POTASSIUM 3.9 mmol/L (3.5-5.1); TOTAL PROTEIN, SERUM 7.8 g/dL (6.4-8.2)
[2019-09-10 08:04] VITALS: BP 101/45
[2019-09-10] MEDS: ACETAMINOPHEN 650 MG/20.3 ML LIQUID UDC GT SCH (08:39)
[2019-09-10] MEDS: ACIDOPHILUS/BULGARICUS CHEW TAB GT SCH ×2 (08:45→20:59)
[2019-09-10] MEDS: SERTRALINE 25 MG GT SCH (08:46)
[2019-09-10] MEDS: THERAHONEY GEL 1.5 OZ TUBE TOP SCH (08:46)
[2019-09-10] MEDS: COD LIVER OIL/ZINC OXIDE OINT 113 GM TUBE TP SCH ×2 (08:48→21:00)
[2019-09-10] MEDS: HYDROGEN PEROXIDE 3% 118 ML BOTTLE TP SCH ×2 (09:43→21:11)
[2019-09-10 20:15] VITALS: BP 102/48
[2019-09-10] MEDS: MULTIVIT, IRON, MIN NO. 8, FA TABLET GT SCH (20:59)
[2019-09-10] MEDS: SIMVASTATIN 10 MG TABLET GT SCH (20:59)
[2019-09-10] MEDS: ASCORBIC ACID 500 MG TABLET GT SCH (20:59)
[2019-09-10] MEDS: TEMAZEPAM 7.5 MG CAPSULE GT PRN (21:17)
[2019-09-11] MEDS: BACLOFEN 10 MG TABLET GT SCH ×4 (00:44→17:38)
[2019-09-11] MEDS: OMEPRAZOLE 20 MG CAPSULE.DR GT SCH (05:08)
[2019-09-11] MEDS: PROTEIN SUPPLEMENT (PROSTAT) 30 ML LIQUID GT SCH ×3 (05:08→21:29)
[2019-09-11] MEDS: ARGININE/GLUTAMINE/CALCIUM BMB 1 EACH POWD.PACK GT SCH ×2 (05:08→17:38)
[2019-09-11] MEDS: JEVITY 1.2 1000 ML LIQUID GT PRN (05:08)
[2019-09-11] MEDS: ACIDOPHILUS/BULGARICUS CHEW TAB GT SCH ×2 (09:06→21:28)
[2019-09-11] MEDS: COD LIVER OIL/ZINC OXIDE OINT 113 GM TUBE TP SCH ×2 (09:06→21:29)
[2019-09-11] MEDS: THERAHONEY GEL 1.5 OZ TUBE TOP SCH (09:06)
[2019-09-11] MEDS: SERTRALINE 25 MG GT SCH (09:06)
[2019-09-11] MEDS: ACETAMINOPHEN 650 MG/20.3 ML LIQUID UDC GT SCH (09:06)
[2019-09-11] MEDS: HYDROGEN PEROXIDE 3% 118 ML BOTTLE TP SCH ×2 (09:35→21:37)
[2019-09-11 12:17] VITALS: BP 105/53
--- NOTE | 2019-09-11 12:30 | NUR ---
NOTED WITH TEMP. OF 100.5, INITIATED COOLING MEASURES SINCE TYLENOL WAS GIVEN AT 0905. NOTIFY CHARGE NURSE. WILL CONTINUE TO MONITOR.
--- NOTE | 2019-09-11 14:00 | NUR ---
TEmp 98.8 axillary,no respiratory distress,on close observation.
--- NOTE | 2019-09-11 16:00 | NUR ---
Seen and examined by Dr Hankins ,no new orders at this time,observe closely for changes of condition ,or for hypertermia.
--- NOTE | 2019-09-11 18:00 | NUR ---
No respiratory distress,afebrile,no changes of condition.
[2019-09-11 20:22] VITALS: BP 105/50
[2019-09-11] MEDS: ASCORBIC ACID 500 MG TABLET GT SCH (21:28)
[2019-09-11] MEDS: SIMVASTATIN 10 MG TABLET GT SCH (21:28)
[2019-09-11] MEDS: MULTIVIT, IRON, MIN NO. 8, FA TABLET GT SCH (21:28)
[2019-09-11] MEDS: TEMAZEPAM 7.5 MG CAPSULE GT PRN (22:46)
[2019-09-11] MEDS: ACETAMINOPHEN 650 MG/20 ML UDC- SA PATIENTS-PAIN ONLY GT PRN (22:47)
[2019-09-12 00:09] VITALS: BP 102/49
[2019-09-12] MEDS: BACLOFEN 10 MG TABLET GT SCH ×5 (00:39→23:04)
[2019-09-12] MEDS: PROTEIN SUPPLEMENT (PROSTAT) 30 ML LIQUID GT SCH ×3 (05:46→22:14)
[2019-09-12] MEDS: OMEPRAZOLE 20 MG CAPSULE.DR GT SCH (05:46)
[2019-09-12] MEDS: ARGININE/GLUTAMINE/CALCIUM BMB 1 EACH POWD.PACK GT SCH ×2 (05:46→17:55)
[2019-09-12 07:30] VITALS: BP 116/49
[2019-09-12] MEDS: ACETAMINOPHEN 650 MG/20.3 ML LIQUID UDC GT SCH (08:02)
[2019-09-12] MEDS: COD LIVER OIL/ZINC OXIDE OINT 113 GM TUBE TP SCH ×2 (08:03→21:00)
[2019-09-12] MEDS: THERAHONEY GEL 1.5 OZ TUBE TOP SCH (08:03)
[2019-09-12] MEDS: ACIDOPHILUS/BULGARICUS CHEW TAB GT SCH ×2 (08:03→21:00)
[2019-09-12] MEDS: SERTRALINE 25 MG GT SCH (08:03)
[2019-09-12] MEDS: HYDROGEN PEROXIDE 3% 118 ML BOTTLE TP SCH ×2 (08:09→21:11)
[2019-09-12] MEDS: JEVITY 1.2 1000 ML LIQUID GT PRN (14:36)
[2019-09-12 20:10] VITALS: BP 105/55
[2019-09-12] MEDS: ASCORBIC ACID 500 MG TABLET GT SCH (21:00)
[2019-09-12] MEDS: MULTIVIT, IRON, MIN NO. 8, FA TABLET GT SCH (21:00)
[2019-09-12] MEDS: SIMVASTATIN 10 MG TABLET GT SCH (21:00)
[2019-09-12] MEDS: TEMAZEPAM 7.5 MG CAPSULE GT PRN (22:17)
[2019-09-13] MEDS: OMEPRAZOLE 20 MG CAPSULE.DR GT SCH (05:19)
[2019-09-13] MEDS: ARGININE/GLUTAMINE/CALCIUM BMB 1 EACH POWD.PACK GT SCH ×2 (05:19→17:40)
[2019-09-13] MEDS: PROTEIN SUPPLEMENT (PROSTAT) 30 ML LIQUID GT SCH ×3 (05:19→22:01)
[2019-09-13] MEDS: BACLOFEN 10 MG TABLET GT SCH ×3 (05:19→17:40)
[2019-09-13 08:06] VITALS: BP 101/42
[2019-09-13] MEDS: THERAHONEY GEL 1.5 OZ TUBE TOP SCH (08:13)
[2019-09-13] MEDS: ACIDOPHILUS/BULGARICUS CHEW TAB GT SCH ×2 (08:13→21:00)
[2019-09-13] MEDS: COD LIVER OIL/ZINC OXIDE OINT 113 GM TUBE TP SCH ×2 (08:13→21:00)
[2019-09-13] MEDS: SERTRALINE 25 MG GT SCH (08:13)
[2019-09-13] MEDS: ACETAMINOPHEN 650 MG/20.3 ML LIQUID UDC GT SCH (08:13)
[2019-09-13] MEDS: HYDROGEN PEROXIDE 3% 118 ML BOTTLE TP SCH ×2 (09:13→21:17)
[2019-09-13 10:00] VITALS: BP 102/47
[2019-09-13] MEDS: ACETAMINOPHEN 650 MG/20 ML UDC- SA PATIENTS-PAIN ONLY GT PRN (14:34)
[2019-09-13] MEDS: JEVITY 1.2 1000 ML LIQUID GT PRN (17:56)
[2019-09-13] MEDS: SIMVASTATIN 10 MG TABLET GT SCH (21:00)
[2019-09-13] MEDS: ASCORBIC ACID 500 MG TABLET GT SCH (21:00)
[2019-09-13] MEDS: MULTIVIT, IRON, MIN NO. 8, FA TABLET GT SCH (21:00)
[2019-09-13 22:00] VITALS: BP 114/48
[2019-09-13] MEDS: TEMAZEPAM 7.5 MG CAPSULE GT PRN (22:01)
[2019-09-14] MEDS: BACLOFEN 10 MG TABLET GT SCH ×4 (00:30→18:00)
[2019-09-14] MEDS: OMEPRAZOLE 20 MG CAPSULE.DR GT SCH (06:20)
[2019-09-14] MEDS: ARGININE/GLUTAMINE/CALCIUM BMB 1 EACH POWD.PACK GT SCH ×2 (06:20→18:00)
[2019-09-14] MEDS: PROTEIN SUPPLEMENT (PROSTAT) 30 ML LIQUID GT SCH ×3 (06:21→21:58)
[2019-09-14] MEDS: HYDROGEN PEROXIDE 3% 118 ML BOTTLE TP SCH ×2 (07:50→21:23)
[2019-09-14 09:09] VITALS: BP 130/72
[2019-09-14] MEDS: ACETAMINOPHEN 650 MG/20.3 ML LIQUID UDC GT SCH (09:17)
[2019-09-14] MEDS: SERTRALINE 25 MG GT SCH (09:19)
[2019-09-14] MEDS: ACIDOPHILUS/BULGARICUS CHEW TAB GT SCH ×2 (09:19→21:58)
[2019-09-14] MEDS: THERAHONEY GEL 1.5 OZ TUBE TOP SCH (09:19)
[2019-09-14] MEDS: COD LIVER OIL/ZINC OXIDE OINT 113 GM TUBE TP SCH ×2 (09:20→21:58)
[2019-09-14] MEDS: MULTIVIT, IRON, MIN NO. 8, FA TABLET GT SCH (21:58)
[2019-09-14] MEDS: ASCORBIC ACID 500 MG TABLET GT SCH (21:58)
[2019-09-14] MEDS: TEMAZEPAM 7.5 MG CAPSULE GT PRN (21:58)
[2019-09-14] MEDS: SIMVASTATIN 10 MG TABLET GT SCH (21:58)
[2019-09-14] MEDS: JEVITY 1.2 1000 ML LIQUID GT PRN (22:24)
[2019-09-14 22:31] VITALS: BP 109/65
[2019-09-15] MEDS: BACLOFEN 10 MG TABLET GT SCH ×5 (00:33→23:12)
[2019-09-15] MEDS: ARGININE/GLUTAMINE/CALCIUM BMB 1 EACH POWD.PACK GT SCH ×2 (05:46→18:02)
[2019-09-15] MEDS: PROTEIN SUPPLEMENT (PROSTAT) 30 ML LIQUID GT SCH ×3 (05:46→21:08)
[2019-09-15] MEDS: OMEPRAZOLE 20 MG CAPSULE.DR GT SCH (05:46)
[2019-09-15 08:00] VITALS: BP 108/48
[2019-09-15] MEDS: THERAHONEY GEL 1.5 OZ TUBE TOP SCH (08:29)
[2019-09-15] MEDS: SERTRALINE 25 MG GT SCH (08:29)
[2019-09-15] MEDS: ACIDOPHILUS/BULGARICUS CHEW TAB GT SCH ×2 (08:29→21:08)
[2019-09-15] MEDS: ACETAMINOPHEN 650 MG/20.3 ML LIQUID UDC GT SCH (08:29)
[2019-09-15] MEDS: COD LIVER OIL/ZINC OXIDE OINT 113 GM TUBE TP SCH ×2 (08:30→21:08)
[2019-09-15] MEDS: HYDROGEN PEROXIDE 3% 118 ML BOTTLE TP SCH ×2 (09:25→21:43)
--- NOTE | 2019-09-15 14:00 | NUR ---
Seen and examined by Dr Peterson,no new orders noted.
[2019-09-15] MEDS: SIMVASTATIN 10 MG TABLET GT SCH (21:08)
[2019-09-15] MEDS: ASCORBIC ACID 500 MG TABLET GT SCH (21:08)
[2019-09-15] MEDS: MULTIVIT, IRON, MIN NO. 8, FA TABLET GT SCH (21:08)
[2019-09-15 22:42] VITALS: BP 118/81
[2019-09-15 22:46] VITALS: BP 111/55
[2019-09-16] MEDS: PROTEIN SUPPLEMENT (PROSTAT) 30 ML LIQUID GT SCH ×3 (05:18→21:20)
[2019-09-16] MEDS: ARGININE/GLUTAMINE/CALCIUM BMB 1 EACH POWD.PACK GT SCH ×2 (05:18→17:01)
[2019-09-16] MEDS: BACLOFEN 10 MG TABLET GT SCH ×4 (05:18→23:46)
[2019-09-16] MEDS: OMEPRAZOLE 20 MG CAPSULE.DR GT SCH (05:18)
[2019-09-16] MEDS: JEVITY 1.2 1000 ML LIQUID GT PRN (05:19)
[2019-09-16] MEDS: ACETAMINOPHEN 650 MG/20.3 ML LIQUID UDC GT SCH (08:51)
[2019-09-16] MEDS: THERAHONEY GEL 1.5 OZ TUBE TOP SCH (08:51)
[2019-09-16] MEDS: ACIDOPHILUS/BULGARICUS CHEW TAB GT SCH ×2 (08:51→20:39)
[2019-09-16] MEDS: SERTRALINE 25 MG GT SCH (08:51)
[2019-09-16] MEDS: COD LIVER OIL/ZINC OXIDE OINT 113 GM TUBE TP SCH ×2 (08:51→20:39)
[2019-09-16] MEDS: HYDROGEN PEROXIDE 3% 118 ML BOTTLE TP SCH ×2 (09:50→21:13)
[2019-09-16 10:20] VITALS: BP 101/60
[2019-09-16] MEDS: ACETAMINOPHEN 650 MG/20 ML UDC- SA PATIENTS-PAIN ONLY GT PRN (12:36)
[2019-09-16 12:37] VITALS: BP 108/53
--- NOTE | 2019-09-16 13:15 | NUR ---
Seen by Dionna PAULINO, notified of low grade fever, new order carried out, cbc, cmp in am.
[2019-09-16 14:24] VITALS: BP 99/44
[2019-09-16 16:56] VITALS: BP 109/66
[2019-09-16 18:30] VITALS: BP 109/50
[2019-09-16 20:23] VITALS: BP 102/65
[2019-09-16] MEDS: SIMVASTATIN 10 MG TABLET GT SCH (20:39)
[2019-09-16] MEDS: ASCORBIC ACID 500 MG TABLET GT SCH (20:39)
[2019-09-16] MEDS: MULTIVIT, IRON, MIN NO. 8, FA TABLET GT SCH (20:39)
[2019-09-17] MEDS: OMEPRAZOLE 20 MG CAPSULE.DR GT SCH (05:11)
[2019-09-17] MEDS: BACLOFEN 10 MG TABLET GT SCH ×3 (05:11→17:23)
[2019-09-17] MEDS: PROTEIN SUPPLEMENT (PROSTAT) 30 ML LIQUID GT SCH ×3 (05:11→21:55)
[2019-09-17] MEDS: ARGININE/GLUTAMINE/CALCIUM BMB 1 EACH POWD.PACK GT SCH ×2 (05:11→17:23)
[2019-09-17 07:15] LABS: BASOPHILS # (AUTO) 0.1 K/uL (0.0-8.0); BASOPHILS % (AUTO) 0.7 % (0.0-2.0); EOSINOPHILS # (AUTO) 0.4 K/uL (0.0-0.7); EOSINOPHILS % (AUTO) 2.5 % (0.0-7.0); HEMATOCRIT 45.4 % (31.2-41.9); HEMOGLOBIN 14.4 g/dL (10.9-14.3); LYMPHOCYTES # (AUTO) 2.8 K/uL (20.0-40.0); LYMPHOCYTES % (AUTO) 19.1 % (20.5-51.5); MEAN CORPUSCULAR HEMOGLOBIN 29.6 uug (24.7-32.8); MEAN CORPUSCULAR HGB CONC 32 g/dL (32.3-35.6); MEAN CORPUSCULAR VOLUME 93.4 fL (75.5-95.3); MONOCYTES % (AUTO) 7.1 % (0.0-11.0); NEUTROPHILS # (AUTO) 10.4 K/uL (1.8-8.9); NEUTROPHILS % (AUTO) 70.6 % (38.5-71.5); PLATELET COUNT (AUTO) 153 K/uL (179-408); RED BLOOD CELL COUNT(AUTO) 4.86 MIL/uL (3.63-4.92); WHITE BLOOD COUNT (AUTO) 14.7 K/uL (3.8-11.8)
[2019-09-17 07:28] LABS: BILIRUBIN,TOTAL 0.7 mg/dL (0.2-1.0); CREATININE 0.8 mg/dL (0.6-1.3); POTASSIUM 3.9 mmol/L (3.5-5.1); TOTAL PROTEIN, SERUM 8.1 g/dL (6.4-8.2)
[2019-09-17] MEDS: THERAHONEY GEL 1.5 OZ TUBE TOP SCH (08:08)
[2019-09-17] MEDS: ACETAMINOPHEN 650 MG/20.3 ML LIQUID UDC GT SCH (08:08)
[2019-09-17] MEDS: SERTRALINE 25 MG GT SCH (08:08)
[2019-09-17] MEDS: COD LIVER OIL/ZINC OXIDE OINT 113 GM TUBE TP SCH ×2 (08:08→21:55)
[2019-09-17] MEDS: ACIDOPHILUS/BULGARICUS CHEW TAB GT SCH ×2 (08:08→21:54)
[2019-09-17] MEDS: HYDROGEN PEROXIDE 3% 118 ML BOTTLE TP SCH ×2 (09:00→20:28)
[2019-09-17 11:16] VITALS: BP 123/48
[2019-09-17 12:58] VITALS: BP 111/45
[2019-09-17 15:24] VITALS: BP 109/47
[2019-09-17 15:26] LABS: *BILIRUBIN,URIN NEGATIVE (NEGATIVE); *BLOOD, URINE 2+ (NEGATIVE); *CLARITY,URINE SLIGHTLY CLOUDY (CLEAR); *COLOR,URINE YELLOW (YELLOW); *KETONES,URINE NEGATIVE (NEGATIVE); *UROBILINOGEN,URINE 0.2 E.U./dl (NORMAL); LEUKOCYTE ESTERASE ,URINE 3+ (NEGATIVE); NITRITE, URINE POSITIVE (NEGATIVE); PH,URINE 8.5 (5.0-8.0); UGLUCOSE NEGATIVE (NEGATIVE)
--- NOTE | 2019-09-17 15:36 | NUR ---
3:18pm: DOROTHY called patient's daughter Ludmila [phone] to check on how she was doing, and if she had any questions or concerns. Ludmila was not available, and DOROTHY left a voicemail message asking Ludmila to call this SW back. 3:25pm: DOROTHY received a call back from Ludmila. Ludmila stated she and her family were doing well, safe at home. Ludmila stated that she did not have any concerns at this time, and has been in contact with nursing for updates on the patient, and has used FaceTime a couple of times to communicate with the patient. Ludmila asked if patient's sister was able to obtain information from the nurses regarding patient's condition and well-being, and DOROTHY stated that DOROTHY would have to ask patient for authorization, since patient is alert and oriented. DOROTHY stated that DOROTHY will meet with the patient and discuss Ludmila's request with her, and will then let Ludmila know what the patient prefers. Ludmila expressed understanding.
[2019-09-17 15:44] LABS: BACTERIA,URINE MANY /HPF (NONE SEEN); SQUAMOUS EPITHELIAL CELL,UR MODERATE /HPF (NONE SEEN); WBC,URINE 20-50 /HPF (0-3)
[2019-09-17 18:29] VITALS: BP 106/50
[2019-09-17] MEDS: TEMAZEPAM 7.5 MG CAPSULE GT PRN (21:00)
[2019-09-17] MEDS: MULTIVIT, IRON, MIN NO. 8, FA TABLET GT SCH (21:54)
[2019-09-17] MEDS: SIMVASTATIN 10 MG TABLET GT SCH (21:55)
[2019-09-17] MEDS: ASCORBIC ACID 500 MG TABLET GT SCH (21:55)
[2019-09-17] MEDS: MEROPENEM 1 G in IV NORMAL SALINE 100 ML IV SCH (21:59)
[2019-09-17 22:01] VITALS: BP 109/47
[2019-09-17 22:07] VITALS: BP 101/42
--- NOTE | 2019-09-17 22:44 | NUR ---
Perea catheter replaced per MD order.No bleeding noted. urine remains clear ,yellow. Addendum: 09/19/19 at 2250 by ANJU AMBRIZ LVN Amended: Links added.
[2019-09-18] VITALS (7 sets, daily range): BP systolic 97–129; BP diastolic 41–73
[2019-09-18] MEDS: BACLOFEN 10 MG TABLET GT SCH ×4 (00:13→17:56)
--- NOTE | 2019-09-18 02:01 | NUR ---
merrem 1 gm iv started @2200, no adverse reaction noted, afebrile,no respiratory distress noted.
[2019-09-18] MEDS: MEROPENEM 1 G in IV NORMAL SALINE 100 ML IV SCH ×3 (05:47→22:01)
[2019-09-18] MEDS: ARGININE/GLUTAMINE/CALCIUM BMB 1 EACH POWD.PACK GT SCH ×2 (06:07→17:56)
[2019-09-18] MEDS: PROTEIN SUPPLEMENT (PROSTAT) 30 ML LIQUID GT SCH ×3 (06:08→21:49)
[2019-09-18] MEDS: OMEPRAZOLE 20 MG CAPSULE.DR GT SCH (06:08)
[2019-09-18] MEDS: ACETAMINOPHEN 650 MG/20.3 ML LIQUID UDC GT SCH (08:34)
[2019-09-18] MEDS: SERTRALINE 25 MG GT SCH (08:35)
[2019-09-18] MEDS: ACIDOPHILUS/BULGARICUS CHEW TAB GT SCH ×2 (08:35→21:48)
[2019-09-18] MEDS: COD LIVER OIL/ZINC OXIDE OINT 113 GM TUBE TP SCH ×2 (08:38→21:49)
[2019-09-18] MEDS: THERAHONEY GEL 1.5 OZ TUBE TOP SCH (09:15)
[2019-09-18] MEDS: HYDROGEN PEROXIDE 3% 118 ML BOTTLE TP SCH ×2 (09:40→21:16)
--- NOTE | 2019-09-18 11:44 | NUR ---
DOROTHY notified patient's daughter Ludmila via email that the next IDT meeting for the patient has been scheduled for 09/24/2019 at 11am. DOROTHY asked Ludmila to respond to DOROTHY's email to let DOROTHY know if Ludmila wants to participate in the meeting. DOROTHY waiting to hear back from Ludmila.
--- NOTE | 2019-09-18 14:30 | NUR ---
Face Time was done with Daughter, Ludmila.
[2019-09-18] MEDS: JEVITY 1.2 1000 ML LIQUID GT PRN (14:40)
[2019-09-18] MEDS: MULTIVIT, IRON, MIN NO. 8, FA TABLET GT SCH (21:48)
[2019-09-18] MEDS: ASCORBIC ACID 500 MG TABLET GT SCH (21:48)
[2019-09-18] MEDS: SIMVASTATIN 10 MG TABLET GT SCH (21:48)
[2019-09-18] MEDS: TEMAZEPAM 7.5 MG CAPSULE GT PRN (21:58)
[2019-09-19 00:17] VITALS: BP 97/41
[2019-09-19] MEDS: BACLOFEN 10 MG TABLET GT SCH ×4 (00:40→17:29)
--- NOTE | 2019-09-19 05:30 | NUR ---
continue on merrem 1 gm iv for fever, no adverse reaction noted, no respiratory distress noted.
[2019-09-19] MEDS: MEROPENEM 1 G in IV NORMAL SALINE 100 ML IV SCH ×3 (05:49→21:36)
[2019-09-19] MEDS: ARGININE/GLUTAMINE/CALCIUM BMB 1 EACH POWD.PACK GT SCH ×2 (06:01→17:29)
[2019-09-19] MEDS: OMEPRAZOLE 20 MG CAPSULE.DR GT SCH (06:01)
[2019-09-19] MEDS: PROTEIN SUPPLEMENT (PROSTAT) 30 ML LIQUID GT SCH ×3 (06:01→21:53)
[2019-09-19 06:16] LABS: BASOPHILS # (AUTO) 0.1 K/uL (0.0-8.0); BASOPHILS % (AUTO) 0.7 % (0.0-2.0); EOSINOPHILS # (AUTO) 0.4 K/uL (0.0-0.7); EOSINOPHILS % (AUTO) 5.3 % (0.0-7.0); HEMATOCRIT 40.6 % (31.2-41.9); LYMPHOCYTES # (AUTO) 1.9 K/uL (20.0-40.0); LYMPHOCYTES % (AUTO) 23.6 % (20.5-51.5); MEAN CORPUSCULAR HEMOGLOBIN 29.7 uug (24.7-32.8); MEAN CORPUSCULAR HGB CONC 32 g/dL (32.3-35.6); MEAN CORPUSCULAR VOLUME 92.6 fL (75.5-95.3); MONOCYTES # (AUTO) 0.6 K/uL (2.0-10.0); MONOCYTES % (AUTO) 7.2 % (0.0-11.0); NEUTROPHILS # (AUTO) 5.1 K/uL (1.8-8.9); NEUTROPHILS % (AUTO) 63.2 % (38.5-71.5); PLATELET COUNT (AUTO) 139 K/uL (179-408); RED BLOOD CELL COUNT(AUTO) 4.38 MIL/uL (3.63-4.92); WHITE BLOOD COUNT (AUTO) 8.1 K/uL (3.8-11.8)
[2019-09-19 06:28] LABS: BILIRUBIN,TOTAL 0.6 mg/dL (0.2-1.0); CREATININE 0.8 mg/dL (0.6-1.3); POTASSIUM 3.6 mmol/L (3.5-5.1); TOTAL PROTEIN, SERUM 7.7 g/dL (6.4-8.2)
[2019-09-19] MEDS: HYDROGEN PEROXIDE 3% 118 ML BOTTLE TP SCH ×2 (07:40→21:10)
[2019-09-19] MEDS: ACETAMINOPHEN 650 MG/20.3 ML LIQUID UDC GT SCH (08:36)
[2019-09-19] MEDS: SERTRALINE 25 MG GT SCH (08:37)
[2019-09-19] MEDS: ACIDOPHILUS/BULGARICUS CHEW TAB GT SCH ×2 (08:37→21:53)
[2019-09-19] MEDS: COD LIVER OIL/ZINC OXIDE OINT 113 GM TUBE TP SCH ×2 (08:38→21:53)
[2019-09-19] MEDS: THERAHONEY GEL 1.5 OZ TUBE TOP SCH (09:15)
--- NOTE | 2019-09-19 12:00 | NUR ---
Finding pt with Temp 100.1 cooling measures started. Charge nurse aware, pt remains on Merrem 1 gram via IV elba 8 hours.No adverse reactions noted. Monitoring temp closely.
[2019-09-19 20:00] VITALS: BP 115/66
[2019-09-19] MEDS: SIMVASTATIN 10 MG TABLET GT SCH (21:53)
[2019-09-19] MEDS: MULTIVIT, IRON, MIN NO. 8, FA TABLET GT SCH (21:53)
[2019-09-19] MEDS: ASCORBIC ACID 500 MG TABLET GT SCH (21:53)
[2019-09-20] MEDS: ACETAMINOPHEN 650 MG/20 ML UDC- SA PATIENTS-FEVER ONLY GT PRN
[2019-09-20] MEDS: BACLOFEN 10 MG TABLET GT SCH ×5 (00:47→23:10)
--- NOTE | 2019-09-20 01:31 | NUR ---
continue on merrem 1gm iv for fever, no adverse reaction noted,no respiratory distress noted.
[2019-09-20] MEDS: JEVITY 1.2 1000 ML LIQUID GT PRN (04:57)
[2019-09-20] MEDS: MEROPENEM 1 G in IV NORMAL SALINE 100 ML IV SCH ×3 (05:44→21:49)
[2019-09-20] MEDS: PROTEIN SUPPLEMENT (PROSTAT) 30 ML LIQUID GT SCH ×3 (05:57→21:05)
[2019-09-20] MEDS: OMEPRAZOLE 20 MG CAPSULE.DR GT SCH (05:57)
[2019-09-20] MEDS: ARGININE/GLUTAMINE/CALCIUM BMB 1 EACH POWD.PACK GT SCH ×2 (05:57→17:06)
[2019-09-20 08:03] VITALS: BP 95/54
[2019-09-20] MEDS: HYDROGEN PEROXIDE 3% 118 ML BOTTLE TP SCH ×2 (08:25→21:22)
[2019-09-20] MEDS: COD LIVER OIL/ZINC OXIDE OINT 113 GM TUBE TP SCH ×2 (08:25→21:05)
[2019-09-20] MEDS: ACIDOPHILUS/BULGARICUS CHEW TAB GT SCH ×2 (08:25→21:05)
[2019-09-20] MEDS: THERAHONEY GEL 1.5 OZ TUBE TOP SCH (08:25)
[2019-09-20] MEDS: ACETAMINOPHEN 650 MG/20.3 ML LIQUID UDC GT SCH (08:25)
[2019-09-20] MEDS: SERTRALINE 25 MG GT SCH (08:26)
[2019-09-20 10:46] LABS: BASOPHILS # (AUTO) 0.1 K/uL (0.0-8.0); EOSINOPHILS # (AUTO) 0.3 K/uL (0.0-0.7); MONOCYTES # (AUTO) 0.6 K/uL (2.0-10.0)
[2019-09-20 10:59] LABS: CREATININE 0.7 mg/dL (0.6-1.3); POTASSIUM 3.9 mmol/L (3.5-5.1)
[2019-09-20 11:22] LABS: *BILIRUBIN,URIN NEGATIVE (NEGATIVE); *BLOOD, URINE 3+ (NEGATIVE); *CLARITY,URINE CLOUDY (CLEAR); *COLOR,URINE YELLOW (YELLOW); *KETONES,URINE NEGATIVE (NEGATIVE); *UROBILINOGEN,URINE 0.2 E.U./dl (NORMAL); LEUKOCYTE ESTERASE ,URINE 2+ (NEGATIVE); NITRITE, URINE NEGATIVE (NEGATIVE); PH,URINE 8.5 (5.0-8.0); UGLUCOSE NEGATIVE (NEGATIVE)
[2019-09-20 11:29] LABS: HEMOGLOBIN 13.3 g/dL (10.9-14.3); LYMPHOCYTES # (AUTO) 2.2 K/uL (20.0-40.0); LYMPHOCYTES % (AUTO) 24.3 % (20.5-51.5); MEAN CORPUSCULAR HGB CONC 33 g/dL (32.3-35.6); MEAN CORPUSCULAR VOLUME 92.5 fL (75.5-95.3); MONOCYTES % (AUTO) 7.2 % (0.0-11.0); NEUTROPHILS # (AUTO) 5.8 K/uL (1.8-8.9); NEUTROPHILS % (AUTO) 64.5 % (38.5-71.5); PLATELET COUNT (AUTO) 136 K/uL (179-408); RED BLOOD CELL COUNT(AUTO) 4.43 MIL/uL (3.63-4.92); WHITE BLOOD COUNT (AUTO) 8.9 K/uL (3.8-11.8)
[2019-09-20 11:36] LABS: RBC,URINE 50-80 /HPF (0-3)
[2019-09-20 11:37] LABS: WBC,URINE 80-100 /HPF (0-3)
[2019-09-20 11:59] LABS: BACTERIA,URINE NONE SEEN /HPF (NONE SEEN); SQUAMOUS EPITHELIAL CELL,UR FEW /HPF (NONE SEEN); URINE AMORPHOUS PHOSPHATES FEW /HPF
[2019-09-20 20:09] VITALS: BP 124/69
[2019-09-20] MEDS: ASCORBIC ACID 500 MG TABLET GT SCH (21:05)
[2019-09-20] MEDS: SIMVASTATIN 10 MG TABLET GT SCH (21:05)
[2019-09-20] MEDS: MULTIVIT, IRON, MIN NO. 8, FA TABLET GT SCH (21:05)
[2019-09-20] MEDS: TEMAZEPAM 7.5 MG CAPSULE GT PRN (21:05)
[2019-09-20] MEDS: CHLORHEXIDINE GLUCONATE 15 ML MOUTHWASH MM SCH (21:09)
[2019-09-21] MEDS: BACLOFEN 10 MG TABLET GT SCH ×4 (05:56→23:51)
[2019-09-21] MEDS: OMEPRAZOLE 20 MG CAPSULE.DR GT SCH (05:56)
[2019-09-21] MEDS: ARGININE/GLUTAMINE/CALCIUM BMB 1 EACH POWD.PACK GT SCH ×2 (05:56→17:11)
[2019-09-21] MEDS: PROTEIN SUPPLEMENT (PROSTAT) 30 ML LIQUID GT SCH ×3 (05:56→21:02)
[2019-09-21] MEDS: MEROPENEM 1 G in IV NORMAL SALINE 100 ML IV SCH ×3 (06:25→21:42)
[2019-09-21] MEDS: ACETAMINOPHEN 650 MG/20.3 ML LIQUID UDC GT SCH (08:23)
[2019-09-21] MEDS: CHLORHEXIDINE GLUCONATE 15 ML MOUTHWASH MM SCH ×2 (08:23→21:02)
[2019-09-21] MEDS: THERAHONEY GEL 1.5 OZ TUBE TOP SCH (08:23)
[2019-09-21] MEDS: SERTRALINE 25 MG GT SCH (08:23)
[2019-09-21] MEDS: ACIDOPHILUS/BULGARICUS CHEW TAB GT SCH ×2 (08:23→21:02)
[2019-09-21] MEDS: COD LIVER OIL/ZINC OXIDE OINT 113 GM TUBE TP SCH ×2 (08:24→21:02)
[2019-09-21] MEDS: HYDROGEN PEROXIDE 3% 118 ML BOTTLE TP SCH ×2 (09:00→20:50)
[2019-09-21 10:17] VITALS: BP 112/55
--- NOTE | 2019-09-21 10:22 | NUR ---
SEEN AND EXAMINED BY JAI LENNON, SIMA. WITH NO NEW ORDERS.
[2019-09-21 12:20] VITALS: BP 101/45
--- NOTE | 2019-09-21 14:00 | NUR ---
Resident noted to by passing through her FC checking patency by flushing FC and noted to be intact and patent. Pt has history and episodes of by passing before. Pt.denies any pain when asked and remains comfortable at this time.
[2019-09-21 14:22] VITALS: BP 96/47
[2019-09-21 16:07] VITALS: BP 122/49
[2019-09-21 18:00] VITALS: BP 110/41
--- NOTE | 2019-09-21 19:01 | NUR ---
CONTINUE ON MERREM 1 GM FOR FEVER. NO ADVERSE REACTION NOTED. NO ACUTE DISTRESS NOTED. TOLERATED TX ORDERED. WILL CONTINUE TO MONITOR.
--- NOTE | 2019-09-21 19:09 | NUR ---
Pt remains to be by passing through F/C ,changed F/C with [id number] pt tolerated well. Denies any pain when asked.
[2019-09-21 19:44] VITALS: BP 129/71
[2019-09-21] MEDS: SIMVASTATIN 10 MG TABLET GT SCH (21:02)
[2019-09-21] MEDS: ASCORBIC ACID 500 MG TABLET GT SCH (21:02)
[2019-09-21] MEDS: MULTIVIT, IRON, MIN NO. 8, FA TABLET GT SCH (21:02)
[2019-09-21] MEDS: TEMAZEPAM 7.5 MG CAPSULE GT PRN (21:02)
--- NOTE | 2019-09-22 01:10 | NUR ---
PT CONTINUE ON MERREM 1 G IV Q8 HRS.PT HAS EPISODE OF TEMP =100.4 COOLING MEASURES AND TYLENOL WAS GIVEN.TURN POSITION Q 2 HRS KEEP CLEAN AND GOOD MANDO CARE. CONTINUE MONITOR FOR FEVER.
[2019-09-22] MEDS: MEROPENEM 1 G in IV NORMAL SALINE 100 ML IV SCH ×2 (05:29→14:18)
[2019-09-22] MEDS: PROTEIN SUPPLEMENT (PROSTAT) 30 ML LIQUID GT SCH ×3 (05:50→21:09)
[2019-09-22] MEDS: OMEPRAZOLE 20 MG CAPSULE.DR GT SCH (05:50)
[2019-09-22] MEDS: ARGININE/GLUTAMINE/CALCIUM BMB 1 EACH POWD.PACK GT SCH ×2 (05:50→17:46)
[2019-09-22] MEDS: BACLOFEN 10 MG TABLET GT SCH ×4 (05:50→23:18)
[2019-09-22 08:00] VITALS: BP 120/48
[2019-09-22] MEDS: HYDROGEN PEROXIDE 3% 118 ML BOTTLE TP SCH ×2 (09:00→21:12)
[2019-09-22] MEDS: CHLORHEXIDINE GLUCONATE 15 ML MOUTHWASH MM SCH ×2 (09:00→21:09)
[2019-09-22] MEDS: THERAHONEY GEL 1.5 OZ TUBE TOP SCH (09:11)
[2019-09-22] MEDS: COD LIVER OIL/ZINC OXIDE OINT 113 GM TUBE TP SCH ×2 (09:11→21:09)
[2019-09-22] MEDS: ACETAMINOPHEN 650 MG/20.3 ML LIQUID UDC GT SCH (09:13)
[2019-09-22] MEDS: SERTRALINE 25 MG GT SCH (09:13)
[2019-09-22] MEDS: ACIDOPHILUS/BULGARICUS CHEW TAB GT SCH ×2 (09:14→21:09)
--- NOTE | 2019-09-22 10:55 | NUR ---
SEEN AND EXAMINED BY JAI LENNON, SIMA. NOTIFIED THE SOCIAL WORKER AIDE OF A FINAL SPUTUM CULTURE RESULT WITH SENSITIVITY. SHE NOTED THERE ARE NO OTHER INDICATIONS OF PNA CONSIDER THE CXR, THEREFORE NO TX NECESSARY. NO NEW ORDERS. WILL CONTINUE TO MONITOR.
[2019-09-22] MEDS: ACETAMINOPHEN 650 MG/20 ML UDC- SA PATIENTS-PAIN ONLY GT PRN (15:19)
[2019-09-22 19:53] VITALS: BP 105/62
[2019-09-22] MEDS: SIMVASTATIN 10 MG TABLET GT SCH (21:09)
[2019-09-22] MEDS: MULTIVIT, IRON, MIN NO. 8, FA TABLET GT SCH (21:09)
[2019-09-22] MEDS: TEMAZEPAM 7.5 MG CAPSULE GT PRN (21:09)
[2019-09-22] MEDS: ASCORBIC ACID 500 MG TABLET GT SCH (21:09)
[2019-09-22 22:31] VITALS: BP 94/48
--- NOTE | 2019-09-22 23:27 | NUR ---
Last dose of Merrem IV was given today, patient's temperature is 99.0, patient is awake and no signs of any respiratory distress noted. Gt feeding tolerating well, no nausea/ vomiting noted. Perea catheter is draining well to yellow urine, good sukumar care rendered, kept patient clean and comfortable.
[2019-09-23] VITALS (11 sets, daily range): BP systolic 95–108; BP diastolic 36–58
[2019-09-23] MEDS: BACLOFEN 10 MG TABLET GT SCH ×4 (05:48→23:20)
[2019-09-23] MEDS: PROTEIN SUPPLEMENT (PROSTAT) 30 ML LIQUID GT SCH ×3 (05:48→21:28)
[2019-09-23] MEDS: ARGININE/GLUTAMINE/CALCIUM BMB 1 EACH POWD.PACK GT SCH ×2 (05:48→18:15)
[2019-09-23] MEDS: OMEPRAZOLE 20 MG CAPSULE.DR GT SCH (05:48)
[2019-09-23] MEDS: JEVITY 1.2 1000 ML LIQUID GT PRN (05:48)
[2019-09-23] MEDS: HYDROGEN PEROXIDE 3% 118 ML BOTTLE TP SCH ×2 (09:00→21:28)
[2019-09-23] MEDS: ACIDOPHILUS/BULGARICUS CHEW TAB GT SCH ×2 (09:29→21:27)
[2019-09-23] MEDS: ACETAMINOPHEN 650 MG/20.3 ML LIQUID UDC GT SCH (09:29)
[2019-09-23] MEDS: COD LIVER OIL/ZINC OXIDE OINT 113 GM TUBE TP SCH ×2 (09:37→21:28)
[2019-09-23] MEDS: CHLORHEXIDINE GLUCONATE 15 ML MOUTHWASH MM SCH ×2 (09:37→21:28)
[2019-09-23] MEDS: SERTRALINE 25 MG GT SCH (09:37)
[2019-09-23] MEDS: MULTIVIT, IRON, MIN NO. 8, FA TABLET GT SCH (21:27)
[2019-09-23] MEDS: ASCORBIC ACID 500 MG TABLET GT SCH (21:27)
[2019-09-23] MEDS: SIMVASTATIN 10 MG TABLET GT SCH (21:27)
[2019-09-24] MEDS: OMEPRAZOLE 20 MG CAPSULE.DR GT SCH (05:19)
[2019-09-24] MEDS: ARGININE/GLUTAMINE/CALCIUM BMB 1 EACH POWD.PACK GT SCH ×2 (05:19→17:09)
[2019-09-24] MEDS: BACLOFEN 10 MG TABLET GT SCH ×3 (05:19→17:09)
[2019-09-24] MEDS: PROTEIN SUPPLEMENT (PROSTAT) 30 ML LIQUID GT SCH ×3 (05:19→22:01)
--- NOTE | 2019-09-24 06:32 | NUR ---
Renewed treatment to sacral wound X 30 more days then re-eval.
[2019-09-24 06:50] LABS: BASOPHILS % (AUTO) 0.4 % (0.0-2.0); EOSINOPHILS # (AUTO) 0.3 K/uL (0.0-0.7); EOSINOPHILS % (AUTO) 3.6 % (0.0-7.0); HEMATOCRIT 39.3 % (31.2-41.9); HEMOGLOBIN 12.9 g/dL (10.9-14.3); LYMPHOCYTES # (AUTO) 2.3 K/uL (20.0-40.0); LYMPHOCYTES % (AUTO) 25.9 % (20.5-51.5); MEAN CORPUSCULAR HEMOGLOBIN 30.2 uug (24.7-32.8); MEAN CORPUSCULAR HGB CONC 33 g/dL (32.3-35.6); MEAN CORPUSCULAR VOLUME 92.4 fL (75.5-95.3); MONOCYTES # (AUTO) 0.6 K/uL (2.0-10.0); MONOCYTES % (AUTO) 6.8 % (0.0-11.0); NEUTROPHILS # (AUTO) 5.5 K/uL (1.8-8.9); NEUTROPHILS % (AUTO) 63.3 % (38.5-71.5); PLATELET COUNT (AUTO) 173 K/uL (179-408); RED BLOOD CELL COUNT(AUTO) 4.26 MIL/uL (3.63-4.92); WHITE BLOOD COUNT (AUTO) 8.7 K/uL (3.8-11.8)
[2019-09-24 06:59] LABS: BILIRUBIN,TOTAL 0.5 mg/dL (0.2-1.0); CREATININE 0.6 mg/dL (0.6-1.3); POTASSIUM 3.7 mmol/L (3.5-5.1); TOTAL PROTEIN, SERUM 7.5 g/dL (6.4-8.2)
[2019-09-24 08:00] VITALS: BP 101/43
[2019-09-24] MEDS: SERTRALINE 25 MG GT SCH (08:40)
[2019-09-24] MEDS: ACIDOPHILUS/BULGARICUS CHEW TAB GT SCH ×2 (08:40→21:57)
[2019-09-24] MEDS: ACETAMINOPHEN 650 MG/20.3 ML LIQUID UDC GT SCH (08:40)
[2019-09-24] MEDS: CHLORHEXIDINE GLUCONATE 15 ML MOUTHWASH MM SCH ×2 (09:00→21:00)
[2019-09-24] MEDS: HYDROGEN PEROXIDE 3% 118 ML BOTTLE TP SCH ×2 (09:00→21:23)
[2019-09-24] MEDS: THERAHONEY GEL 1.5 OZ TUBE TOP SCH (09:35)
[2019-09-24] MEDS: COD LIVER OIL/ZINC OXIDE OINT 113 GM TUBE TP SCH ×2 (09:36→21:00)
--- NOTE | 2019-09-24 14:31 | NUR ---
INTERDISCIPLINARY PLAN OF CARE CONFERENCE was held today. Patient's daughter was unable to participate in the meeting. Dr. Sylvester and the Interdisciplinary Team reviewed the current plan of care in detail. RN reported on patient's medical condition and recent treatments. See RN IDT conference notes. See also all other disciplines IDT notes and physician's progress notes for additional details.
--- NOTE | 2019-09-24 15:36 | NUR ---
Pharmacy Update from Today's 09/24/19 IDT meeting VS: Temp 98.3 BP 102/46 HR 92 LABS: (from 09/24/19) Wbc 8.7 H/H 12.9/39.3 Plt 173 Na 146 K 3.7 Cl 109 CO2 32 BUN/SCr 36/0.6 BS 115 Ca 9.3 MEDICATION USE REVIEWED: > Pt not on any anti-seizure medications > Pt on Restoril 7.5mg HS PRN + 7.5mg PRN one hr later since last GDR on 04/03/19. Monitored hours of sleep in Jul: 4hrx1, 5x2, 7x15, 8x13. PRN used x14 and repeat x3 in August, slight increase but remains low perhaps d/t lack of family visits (d/t covid regulations, no visitors at this time. Events coordinator continues with daily visits to pt rooms). No issues noted per staff. > Pt continues on Zoloft 25mg daily after failed GDR as of 05/18/19 for depression m/b sadness (pt able to verbalize/mouth in response). Patient affirmed 10 episodes sadness in August. No side effects noted per pt or staff. Will follow > PRN MED USAGE: (August) Tylenol for pain/temp used x2pain, x2 fever Artificial Tears used x0 [place] used x1 Benadryl used x0 Zofran used x0 NEW ORDERS NOTED: > Vanco 08/31-09/02, Merrem 08/31-09/05 for persistent low grade fevers, cxr > Zofran added 09/03, none used so far > Chlorhexidine 15ml q12hr 09/19-10/01 swish and suction Patient reviewed and discussed in detail at IDT with no issues noted per staff at this time. Completed courses of abx, now resolved per ID. No further recommendations per rx at this time, will continue to follow
[2019-09-24 20:03] VITALS: BP 110/47
[2019-09-24] MEDS: SIMVASTATIN 10 MG TABLET GT SCH (21:57)
[2019-09-24] MEDS: ASCORBIC ACID 500 MG TABLET GT SCH (21:57)
[2019-09-24] MEDS: MULTIVIT, IRON, MIN NO. 8, FA TABLET GT SCH (21:57)
[2019-09-25] MEDS: BACLOFEN 10 MG TABLET GT SCH ×4 (00:24→18:03)
[2019-09-25] MEDS: ARGININE/GLUTAMINE/CALCIUM BMB 1 EACH POWD.PACK GT SCH ×2 (05:40→18:03)
[2019-09-25] MEDS: OMEPRAZOLE 20 MG CAPSULE.DR GT SCH (05:40)
[2019-09-25] MEDS: PROTEIN SUPPLEMENT (PROSTAT) 30 ML LIQUID GT SCH ×3 (05:41→21:43)
[2019-09-25] MEDS: JEVITY 1.2 1000 ML LIQUID GT PRN (05:43)
[2019-09-25 08:00] VITALS: BP 103/42
[2019-09-25] MEDS: ACIDOPHILUS/BULGARICUS CHEW TAB GT SCH ×2 (08:41→21:41)
[2019-09-25] MEDS: SERTRALINE 25 MG GT SCH (08:41)
[2019-09-25] MEDS: ACETAMINOPHEN 650 MG/20.3 ML LIQUID UDC GT SCH (08:41)
[2019-09-25] MEDS: CHLORHEXIDINE GLUCONATE 15 ML MOUTHWASH MM SCH ×2 (08:43→21:43)
[2019-09-25] MEDS: HYDROGEN PEROXIDE 3% 118 ML BOTTLE TP SCH ×2 (09:00→20:49)
[2019-09-25] MEDS: THERAHONEY GEL 1.5 OZ TUBE TOP SCH (09:25)
[2019-09-25] MEDS: COD LIVER OIL/ZINC OXIDE OINT 113 GM TUBE TP SCH ×2 (09:25→21:43)
[2019-09-25 20:01] VITALS: BP 101/50
[2019-09-25] MEDS: MULTIVIT, IRON, MIN NO. 8, FA TABLET GT SCH (21:42)
[2019-09-25] MEDS: ASCORBIC ACID 500 MG TABLET GT SCH (21:42)
[2019-09-25] MEDS: SIMVASTATIN 10 MG TABLET GT SCH (21:42)
[2019-09-26] MEDS: BACLOFEN 10 MG TABLET GT SCH ×4 (00:12→17:37)
[2019-09-26] MEDS: PROTEIN SUPPLEMENT (PROSTAT) 30 ML LIQUID GT SCH ×3 (06:03→21:47)
[2019-09-26] MEDS: ARGININE/GLUTAMINE/CALCIUM BMB 1 EACH POWD.PACK GT SCH ×2 (06:03→17:37)
[2019-09-26] MEDS: JEVITY 1.2 1000 ML LIQUID GT PRN (06:03)
[2019-09-26] MEDS: OMEPRAZOLE 20 MG CAPSULE.DR GT SCH (06:03)
[2019-09-26] MEDS: ACIDOPHILUS/BULGARICUS CHEW TAB GT SCH ×2 (09:09→21:45)
[2019-09-26] MEDS: SERTRALINE 25 MG GT SCH (09:10)
[2019-09-26] MEDS: CHLORHEXIDINE GLUCONATE 15 ML MOUTHWASH MM SCH ×2 (09:11→21:47)
[2019-09-26] MEDS: COD LIVER OIL/ZINC OXIDE OINT 113 GM TUBE TP SCH ×2 (09:11→21:47)
[2019-09-26] MEDS: THERAHONEY GEL 1.5 OZ TUBE TOP SCH (09:11)
[2019-09-26] MEDS: HYDROGEN PEROXIDE 3% 118 ML BOTTLE TP SCH ×2 (09:12→20:45)
[2019-09-26] MEDS: ACETAMINOPHEN 650 MG/20.3 ML LIQUID UDC GT SCH (09:14)
[2019-09-26 10:41] VITALS: BP 117/61
--- NOTE | 2019-09-26 20:00 | NUR ---
SEEN BY JUDEEN DIETARY MANAGER WITH NEW ORDER.CONTINUE MONITOR FOR LOOSE STOOL IF PT HAS 3 OR MORE EPISODES OF LOOSE STOOL IN 24 HRS SENT STOOL FOR C-DIFF KEEP CLEAN AND GOOD MANDO AREA.
[2019-09-26 20:06] VITALS: BP 104/65
[2019-09-26] MEDS: MULTIVIT, IRON, MIN NO. 8, FA TABLET GT SCH (21:45)
[2019-09-26] MEDS: ASCORBIC ACID 500 MG TABLET GT SCH (21:46)
[2019-09-26] MEDS: SIMVASTATIN 10 MG TABLET GT SCH (21:47)
[2019-09-27] MEDS: BACLOFEN 10 MG TABLET GT SCH ×5 (00:13→23:59)
[2019-09-27] MEDS: ARGININE/GLUTAMINE/CALCIUM BMB 1 EACH POWD.PACK GT SCH ×2 (05:35→17:31)
[2019-09-27] MEDS: PROTEIN SUPPLEMENT (PROSTAT) 30 ML LIQUID GT SCH ×3 (05:36→21:27)
[2019-09-27] MEDS: OMEPRAZOLE 20 MG CAPSULE.DR GT SCH (05:36)
[2019-09-27] MEDS: JEVITY 1.2 1000 ML LIQUID GT PRN (06:00)
[2019-09-27] MEDS: ACETAMINOPHEN 650 MG/20.3 ML LIQUID UDC GT SCH (08:52)
[2019-09-27] MEDS: SERTRALINE 25 MG GT SCH (08:53)
[2019-09-27] MEDS: ACIDOPHILUS/BULGARICUS CHEW TAB GT SCH ×2 (08:53→20:57)
[2019-09-27] MEDS: CHLORHEXIDINE GLUCONATE 15 ML MOUTHWASH MM SCH (08:54)
[2019-09-27] MEDS: THERAHONEY GEL 1.5 OZ TUBE TOP SCH (08:54)
[2019-09-27] MEDS: COD LIVER OIL/ZINC OXIDE OINT 113 GM TUBE TP SCH ×2 (08:54→20:58)
[2019-09-27] MEDS: HYDROGEN PEROXIDE 3% 118 ML BOTTLE TP SCH ×2 (09:33→20:58)
[2019-09-27 10:44] VITALS: BP 100/51
[2019-09-27 20:00] VITALS: BP 101/41
[2019-09-27] MEDS: MULTIVIT, IRON, MIN NO. 8, FA TABLET GT SCH (20:57)
[2019-09-27] MEDS: ASCORBIC ACID 500 MG TABLET GT SCH (20:57)
[2019-09-27] MEDS: SIMVASTATIN 10 MG TABLET GT SCH (20:58)
[2019-09-28] MEDS: ARGININE/GLUTAMINE/CALCIUM BMB 1 EACH POWD.PACK GT SCH ×2 (06:11→17:00)
[2019-09-28] MEDS: PROTEIN SUPPLEMENT (PROSTAT) 30 ML LIQUID GT SCH ×3 (06:12→22:03)
[2019-09-28] MEDS: OMEPRAZOLE 20 MG CAPSULE.DR GT SCH (06:12)
[2019-09-28] MEDS: BACLOFEN 10 MG TABLET GT SCH ×4 (06:12→23:04)
[2019-09-28 08:00] VITALS: BP 108/55
[2019-09-28] MEDS: HYDROGEN PEROXIDE 3% 118 ML BOTTLE TP SCH ×2 (08:24→21:24)
[2019-09-28] MEDS: THERAHONEY GEL 1.5 OZ TUBE TOP SCH (08:25)
[2019-09-28] MEDS: ACETAMINOPHEN 650 MG/20.3 ML LIQUID UDC GT SCH (08:25)
[2019-09-28] MEDS: ACIDOPHILUS/BULGARICUS CHEW TAB GT SCH ×2 (08:25→20:10)
[2019-09-28] MEDS: COD LIVER OIL/ZINC OXIDE OINT 113 GM TUBE TP SCH ×2 (08:25→20:10)
[2019-09-28] MEDS: SERTRALINE 25 MG GT SCH (08:25)
[2019-09-28] MEDS: JEVITY 1.2 1000 ML LIQUID GT PRN (10:57)
--- NOTE | 2019-09-28 16:13 | NUR ---
Vitals signs taken because at 1400 patient was noted with at 99.6. patient temperature now noted at 100.5. Charge nurse is aware and will continue to monitor.
--- NOTE | 2019-09-28 17:30 | NUR ---
Left message to Dr Hankins regarding the temp 100.5.
--- NOTE | 2019-09-28 17:35 | NUR ---
Morgan GAO called back she will evaluate the patient.
--- NOTE | 2019-09-28 18:27 | NUR ---
New orders noted from Morgan Finley Np ,from infectious disease ,carried out.
[2019-09-28 18:34] LABS: BASOPHILS # (AUTO) 0.1 K/uL (0.0-8.0); BASOPHILS % (AUTO) 0.7 % (0.0-2.0); EOSINOPHILS # (AUTO) 0.4 K/uL (0.0-0.7); EOSINOPHILS % (AUTO) 3.4 % (0.0-7.0); HEMATOCRIT 40.5 % (31.2-41.9); LYMPHOCYTES # (AUTO) 2.7 K/uL (20.0-40.0); LYMPHOCYTES % (AUTO) 24.8 % (20.5-51.5); MEAN CORPUSCULAR HEMOGLOBIN 29.4 uug (24.7-32.8); MEAN CORPUSCULAR HGB CONC 32 g/dL (32.3-35.6); MEAN CORPUSCULAR VOLUME 91.8 fL (75.5-95.3); MONOCYTES # (AUTO) 0.8 K/uL (2.0-10.0); NEUTROPHILS % (AUTO) 64.1 % (38.5-71.5); PLATELET COUNT (AUTO) 236 K/uL (179-408); RED BLOOD CELL COUNT(AUTO) 4.41 MIL/uL (3.63-4.92); WHITE BLOOD COUNT (AUTO) 10.9 K/uL (3.8-11.8)
[2019-09-28 18:44] LABS: BILIRUBIN,TOTAL 0.6 mg/dL (0.2-1.0); CREATININE 0.8 mg/dL (0.6-1.3); POTASSIUM 3.3 mmol/L (3.5-5.1); TOTAL PROTEIN, SERUM 8.1 g/dL (6.4-8.2)
[2019-09-28 18:57] LABS: *BILIRUBIN,URIN NEGATIVE (NEGATIVE); *BLOOD, URINE 3+ (NEGATIVE); *CLARITY,URINE SLIGHTLY CLOUDY (CLEAR); *COLOR,URINE YELLOW (YELLOW); *KETONES,URINE NEGATIVE (NEGATIVE); *UROBILINOGEN,URINE 0.2 E.U./dl (NORMAL); LEUKOCYTE ESTERASE ,URINE 3+ (NEGATIVE); NITRITE, URINE NEGATIVE (NEGATIVE); UGLUCOSE NEGATIVE (NEGATIVE)
[2019-09-28 19:05] LABS: BACTERIA,URINE MODERATE /HPF (NONE SEEN); RBC,URINE 20-50 /HPF (0-3); SQUAMOUS EPITHELIAL CELL,UR FEW /HPF (NONE SEEN); WBC,URINE 20-50 /HPF (0-3)
[2019-09-28 19:51] VITALS: BP 109/49
[2019-09-28] MEDS: ASCORBIC ACID 500 MG TABLET GT SCH (20:10)
[2019-09-28] MEDS: MULTIVIT, IRON, MIN NO. 8, FA TABLET GT SCH (20:10)
[2019-09-28] MEDS: SIMVASTATIN 10 MG TABLET GT SCH (20:10)
[2019-09-29] MEDS: ARGININE/GLUTAMINE/CALCIUM BMB 1 EACH POWD.PACK GT SCH ×2 (05:52→18:03)
[2019-09-29] MEDS: OMEPRAZOLE 20 MG CAPSULE.DR GT SCH (05:52)
[2019-09-29] MEDS: PROTEIN SUPPLEMENT (PROSTAT) 30 ML LIQUID GT SCH ×3 (05:52→22:25)
[2019-09-29] MEDS: BACLOFEN 10 MG TABLET GT SCH ×3 (05:52→18:03)
[2019-09-29 08:03] VITALS: BP 114/58
[2019-09-29] MEDS: HYDROGEN PEROXIDE 3% 118 ML BOTTLE TP SCH ×2 (08:15→21:21)
[2019-09-29] MEDS: ACIDOPHILUS/BULGARICUS CHEW TAB GT SCH ×2 (09:14→21:00)
[2019-09-29] MEDS: SERTRALINE 25 MG GT SCH (09:14)
[2019-09-29] MEDS: ACETAMINOPHEN 650 MG/20.3 ML LIQUID UDC GT SCH (09:14)
[2019-09-29] MEDS: COD LIVER OIL/ZINC OXIDE OINT 113 GM TUBE TP SCH ×2 (09:15→21:00)
[2019-09-29] MEDS: THERAHONEY GEL 1.5 OZ TUBE TOP SCH (09:15)
[2019-09-29 10:51] VITALS: BP 114/58
[2019-09-29] MEDS: ACETAMINOPHEN 650 MG/20 ML UDC- SA PATIENTS-PAIN ONLY GT PRN (16:11)
--- NOTE | 2019-09-29 18:00 | NUR ---
Pt on close monitoring for changes on condition ,temp 99.6,Dr Hankins is on the case for infectious disease ,cultures pending.
[2019-09-29 20:56] VITALS: BP 115/71
[2019-09-29] MEDS: SIMVASTATIN 10 MG TABLET GT SCH (21:00)
[2019-09-29] MEDS: MULTIVIT, IRON, MIN NO. 8, FA TABLET GT SCH (21:00)
[2019-09-29] MEDS: ASCORBIC ACID 500 MG TABLET GT SCH (21:00)
[2019-09-30] MEDS: BACLOFEN 10 MG TABLET GT SCH ×4 (00:50→18:20)
[2019-09-30] MEDS: ARGININE/GLUTAMINE/CALCIUM BMB 1 EACH POWD.PACK GT SCH ×2 (06:03→18:20)
[2019-09-30] MEDS: PROTEIN SUPPLEMENT (PROSTAT) 30 ML LIQUID GT SCH ×3 (06:04→22:07)
[2019-09-30] MEDS: OMEPRAZOLE 20 MG CAPSULE.DR GT SCH (06:04)
[2019-09-30] MEDS: JEVITY 1.2 1000 ML LIQUID GT PRN (06:56)
[2019-09-30 08:03] VITALS: BP 108/50
[2019-09-30] MEDS: ACETAMINOPHEN 650 MG/20.3 ML LIQUID UDC GT SCH (08:30)
[2019-09-30] MEDS: ACIDOPHILUS/BULGARICUS CHEW TAB GT SCH ×2 (08:30→21:00)
[2019-09-30] MEDS: SERTRALINE 25 MG GT SCH (08:30)
[2019-09-30] MEDS: COD LIVER OIL/ZINC OXIDE OINT 113 GM TUBE TP SCH (08:31)
[2019-09-30] MEDS: THERAHONEY GEL 1.5 OZ TUBE TOP SCH (08:31)
[2019-09-30] MEDS: HYDROGEN PEROXIDE 3% 118 ML BOTTLE TP SCH ×2 (09:10→21:35)
--- NOTE | 2019-09-30 11:59 | NUR ---
Seen by Dionna PAULINO, notified of patient's condition, new orders given, cbc, cmp in am.
--- NOTE | 2019-09-30 14:49 | NUR ---
Seen by Amy Rubalcava Np, sacral wound tx changed to place puracol Ag on wound for 3 days, gauze packing, cover with dry dressing daily and prn soiling.
--- NOTE | 2019-09-30 19:30 | NUR ---
DAYSSEEN BY FERNANDO GAO WITH NEW ORDERED.CEFTRIAXONE 1 GM IM DAILY FOR 3 DAYS DX UTI. Addendum: 09/30/19 at 2204 by JOSE CAM RN SEEN BY FERNANDO GAO WITH NEW ORDERED. CEFTRIAXONE 1 GM DAILY FOR 3 DAYS DX UTI.
[2019-09-30] MEDS: CEFTRIAXONE 1 G VIAL IM SCH (20:20)
[2019-09-30 20:21] VITALS: BP 110/63
--- NOTE | 2019-09-30 20:30 | NUR ---
PT ON CEFTRIAXONE 1 GM VIA IM DAILY3 DAYS FOR UTI NO A/R NOTED.NO S/S BURN OR PAIN AT F/C SITE .CONTINUE MONITOR FOR CHANGE OF CONDITION.
[2019-09-30] MEDS: MULTIVIT, IRON, MIN NO. 8, FA TABLET GT SCH (21:00)
[2019-09-30] MEDS: ASCORBIC ACID 500 MG TABLET GT SCH (21:00)
[2019-09-30] MEDS: SIMVASTATIN 10 MG TABLET GT SCH (21:00)
[2019-10-01] MEDS: BACLOFEN 10 MG TABLET GT SCH ×4 (00:12→17:41)
[2019-10-01] MEDS: OMEPRAZOLE 20 MG CAPSULE.DR GT SCH (05:10)
[2019-10-01] MEDS: ARGININE/GLUTAMINE/CALCIUM BMB 1 EACH POWD.PACK GT SCH ×2 (05:10→17:41)
[2019-10-01] MEDS: PROTEIN SUPPLEMENT (PROSTAT) 30 ML LIQUID GT SCH ×3 (05:11→21:05)
[2019-10-01] MEDS: JEVITY 1.2 1000 ML LIQUID GT PRN (07:10)
[2019-10-01 07:42] LABS: BASOPHILS # (AUTO) 0.1 K/uL (0.0-8.0); BASOPHILS % (AUTO) 0.5 % (0.0-2.0); EOSINOPHILS # (AUTO) 0.3 K/uL (0.0-0.7); HEMATOCRIT 39.5 % (31.2-41.9); HEMOGLOBIN 12.6 g/dL (10.9-14.3); LYMPHOCYTES # (AUTO) 1.8 K/uL (20.0-40.0); LYMPHOCYTES % (AUTO) 17.3 % (20.5-51.5); MEAN CORPUSCULAR HEMOGLOBIN 29.4 uug (24.7-32.8); MEAN CORPUSCULAR HGB CONC 32 g/dL (32.3-35.6); MEAN CORPUSCULAR VOLUME 91.7 fL (75.5-95.3); MONOCYTES # (AUTO) 0.8 K/uL (2.0-10.0); MONOCYTES % (AUTO) 7.5 % (0.0-11.0); NEUTROPHILS # (AUTO) 7.4 K/uL (1.8-8.9); NEUTROPHILS % (AUTO) 71.7 % (38.5-71.5); PLATELET COUNT (AUTO) 209 K/uL (179-408); WHITE BLOOD COUNT (AUTO) 10.4 K/uL (3.8-11.8)
[2019-10-01 08:03] VITALS: BP 107/53
[2019-10-01 08:06] LABS: BILIRUBIN,TOTAL 0.3 mg/dL (0.2-1.0); CREATININE 0.5 mg/dL (0.6-1.3); POTASSIUM 4.2 mmol/L (3.5-5.1); TOTAL PROTEIN, SERUM 7.8 g/dL (6.4-8.2)
[2019-10-01] MEDS: ACETAMINOPHEN 650 MG/20.3 ML LIQUID UDC GT SCH (08:50)
[2019-10-01] MEDS: ACIDOPHILUS/BULGARICUS CHEW TAB GT SCH ×2 (08:50→21:05)
[2019-10-01] MEDS: COD LIVER OIL/ZINC OXIDE OINT 113 GM TUBE TP SCH (08:50)
[2019-10-01] MEDS: SERTRALINE 25 MG GT SCH (08:50)
[2019-10-01] MEDS: HYDROGEN PEROXIDE 3% 118 ML BOTTLE TP SCH ×2 (09:43→21:37)
[2019-10-01 10:19] VITALS: BP 107/53
--- NOTE | 2019-10-01 17:48 | NUR ---
On Ceftriaxone 1 Gm IM for uti x 3 days,no adverse reaction noted,on close observation for changes of condition.Denied pain or discomfort.
[2019-10-01 20:04] VITALS: BP 100/50
--- NOTE | 2019-10-01 20:45 | NUR ---
mark jacobo n.p. came & ordered peridex 15ml po swab and suction q 12hrs x 7 days.
[2019-10-01] MEDS: CEFTRIAXONE 1 G VIAL IM SCH (20:57)
[2019-10-01] MEDS: SIMVASTATIN 10 MG TABLET GT SCH (21:05)
[2019-10-01] MEDS: ASCORBIC ACID 500 MG TABLET GT SCH (21:05)
[2019-10-01] MEDS: MULTIVIT, IRON, MIN NO. 8, FA TABLET GT SCH (21:05)
[2019-10-02] MEDS: BACLOFEN 10 MG TABLET GT SCH ×4 (00:39→17:49)
--- NOTE | 2019-10-02 01:01 | NUR ---
continues on rocephin 1 gm im q 24hrs for uti, no adverse reaction noted.
[2019-10-02] MEDS: CHLORHEXIDINE GLUCONATE 15 ML MOUTHWASH MM SCH ×3 (03:01→21:00)
[2019-10-02] MEDS: OMEPRAZOLE 20 MG CAPSULE.DR GT SCH (06:01)
[2019-10-02] MEDS: ARGININE/GLUTAMINE/CALCIUM BMB 1 EACH POWD.PACK GT SCH ×2 (06:01→17:49)
[2019-10-02] MEDS: PROTEIN SUPPLEMENT (PROSTAT) 30 ML LIQUID GT SCH ×3 (06:01→22:13)
[2019-10-02] MEDS: JEVITY 1.2 1000 ML LIQUID GT PRN (06:51)
[2019-10-02] MEDS: ACETAMINOPHEN 650 MG/20.3 ML LIQUID UDC GT SCH (08:43)
[2019-10-02] MEDS: SERTRALINE 25 MG GT SCH (08:44)
[2019-10-02] MEDS: ACIDOPHILUS/BULGARICUS CHEW TAB GT SCH ×2 (08:44→21:00)
[2019-10-02] MEDS: COD LIVER OIL/ZINC OXIDE OINT 113 GM TUBE TP SCH (08:45)
[2019-10-02] MEDS: HYDROGEN PEROXIDE 3% 118 ML BOTTLE TP SCH ×2 (09:02→21:00)
[2019-10-02 10:56] VITALS: BP 107/43
--- NOTE | 2019-10-02 11:20 | NUR ---
Pt continue on Ceftriaxone 1 gm im ,with no adverse reaction noted,temp at 0800 97.8,temp now 99,on close monitoring.
[2019-10-02] MEDS: ACETAMINOPHEN 650 MG/20 ML UDC- SA PATIENTS-FEVER ONLY GT PRN (16:25)
--- NOTE | 2019-10-02 17:44 | NUR ---
Seen and examined by Dr Hankins aware of pt spike temp to 101.6,with new orders noted and carried out.
--- NOTE | 2019-10-02 19:00 | NUR ---
pt on close monitoring ,on cooling measures last temp 100.3,Covid 19 test collected,verified with [facility] director executive communications,Pt will stay in the unit,and be placed on isolation contact and dropplets ,until we receive the results.
[2019-10-02] MEDS: CEFTRIAXONE 1 G VIAL IM SCH (20:41)
[2019-10-02] MEDS: ASCORBIC ACID 500 MG TABLET GT SCH (21:00)
[2019-10-02] MEDS: MULTIVIT, IRON, MIN NO. 8, FA TABLET GT SCH (21:00)
[2019-10-02] MEDS: SIMVASTATIN 10 MG TABLET GT SCH (21:00)
--- NOTE | 2019-10-02 21:10 | NUR ---
On contact isolation for contact and droplet precaution at this time while pending Covid-19 test results.
[2019-10-02 21:33] VITALS: BP 104/51
--- NOTE | 2019-10-02 22:00 | NUR ---
Patient has on and off temperature, trach is intact and patent, suctioned with moderate pale yellow secretions, 02 sat is 98%, no signs of any respiratory distress noted, gt feeding tolerating well, no residuals noted. baumann catheter is draining well to yellow urine output, no hematuria noted, with ongoing treatment for sacral wound, turned and repositioned, kept clean and comfortable. Addendum: 10/03/19 at 0314 by ADRIA MCKENZIE RN Last dose of Rocephin Im given as ordered, no adverse reactions noted, no diarrhea, rashes or shortness of breath noted.
[2019-10-02 23:24] LABS: *BILIRUBIN,URIN NEGATIVE (NEGATIVE); *BLOOD, URINE 2+ (NEGATIVE); *COLOR,URINE YELLOW (YELLOW); *KETONES,URINE NEGATIVE (NEGATIVE); *UROBILINOGEN,URINE 0.2 E.U./dl (NORMAL); LEUKOCYTE ESTERASE ,URINE 1+ (NEGATIVE); NITRITE, URINE NEGATIVE (NEGATIVE); PH,URINE 5.5 (5.0-8.0); UGLUCOSE NEGATIVE (NEGATIVE)
[2019-10-02 23:43] LABS: *CLARITY,URINE HAZY (CLEAR)
[2019-10-02 23:45] LABS: BACTERIA,URINE MANY /HPF (NONE SEEN); MUCUS,URINE FEW /LPF (0-FEW); SQUAMOUS EPITHELIAL CELL,UR FEW /HPF (NONE SEEN); WBC,URINE 80-100 /HPF (0-3)
[2019-10-03] MEDS: ARGININE/GLUTAMINE/CALCIUM BMB 1 EACH POWD.PACK GT SCH ×2 (05:20→17:54)
[2019-10-03] MEDS: OMEPRAZOLE 20 MG CAPSULE.DR GT SCH (05:20)
[2019-10-03] MEDS: BACLOFEN 10 MG TABLET GT SCH ×4 (05:20→17:54)
[2019-10-03] MEDS: PROTEIN SUPPLEMENT (PROSTAT) 30 ML LIQUID GT SCH ×3 (05:20→22:05)
--- NOTE | 2019-10-03 06:05 | NUR ---
ON ISOLATION FOR CONTACT AND DROPLET CARRIED OUT.
[2019-10-03] MEDS: HYDROGEN PEROXIDE 3% 118 ML BOTTLE TP SCH ×2 (09:00→21:21)
[2019-10-03] MEDS: ACIDOPHILUS/BULGARICUS CHEW TAB GT SCH ×2 (09:17→21:00)
[2019-10-03] MEDS: ACETAMINOPHEN 650 MG/20.3 ML LIQUID UDC GT SCH (09:17)
[2019-10-03] MEDS: SERTRALINE 25 MG GT SCH (09:18)
[2019-10-03] MEDS: CHLORHEXIDINE GLUCONATE 15 ML MOUTHWASH MM SCH ×2 (09:18→21:00)
[2019-10-03] MEDS: COD LIVER OIL/ZINC OXIDE OINT 113 GM TUBE TP SCH (09:19)
[2019-10-03 10:04] VITALS: BP 100/46
--- NOTE | 2019-10-03 11:15 | NUR ---
PER PRECAUTION FOR COVID R/O. PT PLACED ON BUBBLE HUMIDIFIER WITH 02 IN LINE AT 2 LPM VIA TRACH MASK. CHARGE NURSE AWARE OF CHANGE.
--- NOTE | 2019-10-03 19:50 | NUR ---
mark tanner n.p. was in, ordered continue ceftriaxone 1 gm im daily x 2 more days starting today,dx uti per ua. dc contact and droplet isolation.
[2019-10-03 20:07] VITALS: BP 107/41
[2019-10-03] MEDS: SIMVASTATIN 10 MG TABLET GT SCH (21:00)
[2019-10-03] MEDS: CEFTRIAXONE 1 G VIAL IM SCH (21:00)
[2019-10-03] MEDS: ASCORBIC ACID 500 MG TABLET GT SCH (21:00)
[2019-10-03] MEDS: MULTIVIT, IRON, MIN NO. 8, FA TABLET GT SCH (21:00)
[2019-10-04] MEDS: BACLOFEN 10 MG TABLET GT SCH ×4 (00:09→17:43)
--- NOTE | 2019-10-04 01:59 | NUR ---
continue on ceftriaxone 1 gm im for uti, no adverse reaction noted, afebrile, no respiratory distress noted.
[2019-10-04] MEDS: PROTEIN SUPPLEMENT (PROSTAT) 30 ML LIQUID GT SCH ×3 (05:31→21:50)
[2019-10-04] MEDS: OMEPRAZOLE 20 MG CAPSULE.DR GT SCH (05:31)
[2019-10-04] MEDS: ARGININE/GLUTAMINE/CALCIUM BMB 1 EACH POWD.PACK GT SCH ×2 (05:31→17:43)
[2019-10-04] MEDS: ACETAMINOPHEN 650 MG/20.3 ML LIQUID UDC GT SCH (07:55)
[2019-10-04] MEDS: COD LIVER OIL/ZINC OXIDE OINT 113 GM TUBE TP SCH (08:27)
[2019-10-04] MEDS: SERTRALINE 25 MG GT SCH (08:27)
[2019-10-04] MEDS: ACIDOPHILUS/BULGARICUS CHEW TAB GT SCH ×2 (08:27→20:03)
[2019-10-04] MEDS: CHLORHEXIDINE GLUCONATE 15 ML MOUTHWASH MM SCH ×2 (08:27→20:11)
[2019-10-04] MEDS: HYDROGEN PEROXIDE 3% 118 ML BOTTLE TP SCH ×2 (09:58→20:46)
[2019-10-04 11:24] VITALS: BP 88/40
[2019-10-04 16:30] VITALS: BP 112/59
--- NOTE | 2019-10-04 17:00 | NUR ---
SEEN BY FERNANDO FU AND WITH RAINEO.
[2019-10-04 20:00] VITALS: BP 114/46
[2019-10-04] MEDS: MULTIVIT, IRON, MIN NO. 8, FA TABLET GT SCH (20:03)
[2019-10-04] MEDS: ASCORBIC ACID 500 MG TABLET GT SCH (20:03)
[2019-10-04] MEDS: SIMVASTATIN 10 MG TABLET GT SCH (20:03)
[2019-10-04] MEDS: CEFTRIAXONE 1 G VIAL IM SCH (21:50)
--- NOTE | 2019-10-04 22:00 | NUR ---
Patient temperature is 99.3, awake and oriented, denies any respiratory distress, gt feeding tolerating well, no residuals noted, on aspiration precaution, last dose of Rocephin 1 gram IM for UTI was given tonight, no adverse reactions noted. Perea catheter is draining well to yellow urine, no hematuria noted, good sukumar care rendered, kept clean and comfortable.
[2019-10-04] MEDS: JEVITY 1.2 1000 ML LIQUID GT PRN (22:39)
[2019-10-05] MEDS: BACLOFEN 10 MG TABLET GT SCH ×4 (00:46→17:31)
[2019-10-05] MEDS: OMEPRAZOLE 20 MG CAPSULE.DR GT SCH (05:09)
[2019-10-05] MEDS: ARGININE/GLUTAMINE/CALCIUM BMB 1 EACH POWD.PACK GT SCH ×2 (05:09→17:31)
[2019-10-05] MEDS: PROTEIN SUPPLEMENT (PROSTAT) 30 ML LIQUID GT SCH ×3 (05:09→21:23)
[2019-10-05] MEDS: SERTRALINE 25 MG GT SCH (08:28)
[2019-10-05] MEDS: COD LIVER OIL/ZINC OXIDE OINT 113 GM TUBE TP SCH (08:28)
[2019-10-05] MEDS: ACETAMINOPHEN 650 MG/20.3 ML LIQUID UDC GT SCH (08:28)
[2019-10-05] MEDS: ACIDOPHILUS/BULGARICUS CHEW TAB GT SCH ×2 (08:28→21:22)
[2019-10-05] MEDS: CHLORHEXIDINE GLUCONATE 15 ML MOUTHWASH MM SCH ×2 (08:28→21:22)
[2019-10-05] MEDS: HYDROGEN PEROXIDE 3% 118 ML BOTTLE TP SCH ×2 (08:44→21:52)
[2019-10-05 12:03] VITALS: BP 101/68
--- NOTE | 2019-10-05 13:45 | NUR ---
SEEN AND EXAMINED BY CITLALLI VERGARA AND WITH NEW ORDERS CARRIED OUT.
[2019-10-05 14:00] VITALS: BP_SYST 100; BP_DIAS 45; BP_DIAS 95
--- NOTE | 2019-10-05 18:18 | NUR ---
AIR MATRES NOTED OBSERVED AND FELT EXCESSIVELY WARM AND WARMER ADJUSTED ALSO NOTED WOUND BED RED AND MOIST AND ODORLESS AND SLIGHT SEROSANGUINEOUS DRAINAGE IN MINIMUM AMOUNT.NO A/R TO ATB TX AT THIS TIME ,ON POST ATBTX WITH CEFTRIAXONE IM.PT. KEPT COOL SHE REQUESTED. NOTED NO BOWEL MOVEMENTS AT THIS TIME ,MONITORED FOR DIARRHEA IF ANY STOOL FOR C. DIFF WILL BE COLLECTED REQUESTED.
[2019-10-05 20:00] VITALS: BP 104/50
[2019-10-05] MEDS: MULTIVIT, IRON, MIN NO. 8, FA TABLET GT SCH (21:22)
[2019-10-05] MEDS: SIMVASTATIN 10 MG TABLET GT SCH (21:22)
[2019-10-05] MEDS: ASCORBIC ACID 500 MG TABLET GT SCH (21:22)
--- NOTE | 2019-10-05 23:00 | NUR ---
Temperature is 99.4, no respiratory distress noted, 02 sat is 98%, post antibiotic treatment with IM Rocephin for fever, denies any pain or discomfort at this time, treatment done to sacral wound, noted with minimal serosanguineous drainage from sacral wound, turned and repositioned, mattress is warm, patient denies feeling hot, kept patient clean and comfortable.
[2019-10-06] MEDS: BACLOFEN 10 MG TABLET GT SCH ×4 (00:33→17:41)
[2019-10-06] MEDS: JEVITY 1.2 1000 ML LIQUID GT PRN (02:31)
[2019-10-06] MEDS: OMEPRAZOLE 20 MG CAPSULE.DR GT SCH (05:06)
[2019-10-06] MEDS: ARGININE/GLUTAMINE/CALCIUM BMB 1 EACH POWD.PACK GT SCH ×2 (05:06→17:41)
[2019-10-06] MEDS: PROTEIN SUPPLEMENT (PROSTAT) 30 ML LIQUID GT SCH ×3 (05:06→21:35)
--- NOTE | 2019-10-06 07:00 | NUR ---
Patient is awake, no signs of any distress noted, no BM the whole shift, will collect stool for c-diff testing if patient will have loose BM today, endorsed accordingly.
[2019-10-06 07:19] LABS: BASOPHILS # (AUTO) 0.1 K/uL (0.0-8.0); BASOPHILS % (AUTO) 0.6 % (0.0-2.0); EOSINOPHILS # (AUTO) 0.6 K/uL (0.0-0.7); EOSINOPHILS % (AUTO) 5.5 % (0.0-7.0); HEMATOCRIT 38.8 % (31.2-41.9); HEMOGLOBIN 12.4 g/dL (10.9-14.3); LYMPHOCYTES # (AUTO) 2.8 K/uL (20.0-40.0); LYMPHOCYTES % (AUTO) 26.9 % (20.5-51.5); MEAN CORPUSCULAR HEMOGLOBIN 29.7 uug (24.7-32.8); MEAN CORPUSCULAR HGB CONC 32 g/dL (32.3-35.6); MONOCYTES # (AUTO) 0.9 K/uL (2.0-10.0); MONOCYTES % (AUTO) 8.6 % (0.0-11.0); NEUTROPHILS # (AUTO) 6.1 K/uL (1.8-8.9); NEUTROPHILS % (AUTO) 58.4 % (38.5-71.5); PLATELET COUNT (AUTO) 196 K/uL (179-408); RED BLOOD CELL COUNT(AUTO) 4.17 MIL/uL (3.63-4.92); WHITE BLOOD COUNT (AUTO) 10.4 K/uL (3.8-11.8)
[2019-10-06 08:05] VITALS: BP 110/47
[2019-10-06] MEDS: HYDROGEN PEROXIDE 3% 118 ML BOTTLE TP SCH ×2 (08:41→21:24)
[2019-10-06] MEDS: ACIDOPHILUS/BULGARICUS CHEW TAB GT SCH ×2 (08:44→21:34)
[2019-10-06] MEDS: ACETAMINOPHEN 650 MG/20.3 ML LIQUID UDC GT SCH (08:44)
[2019-10-06] MEDS: COD LIVER OIL/ZINC OXIDE OINT 113 GM TUBE TP SCH (08:45)
[2019-10-06] MEDS: CHLORHEXIDINE GLUCONATE 15 ML MOUTHWASH MM SCH ×2 (08:45→21:35)
[2019-10-06] MEDS: SERTRALINE 25 MG GT SCH (08:45)
--- NOTE | 2019-10-06 16:00 | NUR ---
TEMP. 99.5 F AT THIS TIME. BUT C/O FEELING HOT AND REQUESTED THE FUN ON .WILL CONT TO MONITOR.
--- NOTE | 2019-10-06 17:00 | NUR ---
PT. WAS SEEN AND EXAMINED BY JAI LENNON N.P. (I.D)AND AWARE THAT PT. UP TO THIS TIME FOR THIS SHIFT HAD ONLY 2 SMALL LOOSE STOOLS .AND THAT STOOL SPECIMEN FOR C. DIFF WAS SENT TO LAB TODAY.ORAL CARE DONE UP TO THIS TIME X 2.PRECAUTIONS FOR CONTACT ISOLATION FOR C. DIFF KEPT AT ALL TIMES.
--- NOTE | 2019-10-06 18:44 | NUR ---
PT. REQUESTED FACE TIME WITH DTR. [place] AND ATTEMPTED X 2 TO CALL BUT NO ANSWER.
[2019-10-06 20:24] VITALS: BP 113/48
[2019-10-06] MEDS: ASCORBIC ACID 500 MG TABLET GT SCH (21:34)
[2019-10-06] MEDS: MULTIVIT, IRON, MIN NO. 8, FA TABLET GT SCH (21:34)
[2019-10-06] MEDS: SIMVASTATIN 10 MG TABLET GT SCH (21:35)
--- NOTE | 2019-10-06 22:00 | NUR ---
Temperature is 98.0, no signs of any distress noted, no BM at this time, denies any pain or discomfort, will continue monitor.
[2019-10-07] MEDS: ARGININE/GLUTAMINE/CALCIUM BMB 1 EACH POWD.PACK GT SCH ×2 (05:18→17:09)
[2019-10-07] MEDS: BACLOFEN 10 MG TABLET GT SCH ×4 (05:18→17:09)
[2019-10-07] MEDS: PROTEIN SUPPLEMENT (PROSTAT) 30 ML LIQUID GT SCH ×3 (05:18→21:57)
[2019-10-07] MEDS: OMEPRAZOLE 20 MG CAPSULE.DR GT SCH (05:18)
[2019-10-07 07:55] VITALS: BP 108/75
[2019-10-07] MEDS: ACIDOPHILUS/BULGARICUS CHEW TAB GT SCH ×2 (08:07→21:56)
[2019-10-07] MEDS: ACETAMINOPHEN 650 MG/20.3 ML LIQUID UDC GT SCH (08:07)
[2019-10-07] MEDS: CHLORHEXIDINE GLUCONATE 15 ML MOUTHWASH MM SCH ×2 (08:07→21:57)
[2019-10-07] MEDS: SERTRALINE 25 MG GT SCH (08:07)
[2019-10-07] MEDS: COD LIVER OIL/ZINC OXIDE OINT 113 GM TUBE TP SCH (08:08)
[2019-10-07] MEDS: HYDROGEN PEROXIDE 3% 118 ML BOTTLE TP SCH ×2 (09:00→21:28)
--- NOTE | 2019-10-07 11:29 | NUR ---
PT. WAS NEGATIVE FOR STOOL FOR C. DIFF ,NEW ORDER CARRIED OUT TO D/C CONTACT ISOLATION(SEE RECORD FOR B.M'S)
[2019-10-07 20:30] VITALS: BP 103/40
[2019-10-07] MEDS: MULTIVIT, IRON, MIN NO. 8, FA TABLET GT SCH (21:56)
[2019-10-07] MEDS: ASCORBIC ACID 500 MG TABLET GT SCH (21:56)
[2019-10-07] MEDS: SIMVASTATIN 10 MG TABLET GT SCH (21:57)
[2019-10-08] MEDS: BACLOFEN 10 MG TABLET GT SCH ×4 (00:04→18:16)
[2019-10-08] MEDS: OMEPRAZOLE 20 MG CAPSULE.DR GT SCH (05:26)
[2019-10-08] MEDS: PROTEIN SUPPLEMENT (PROSTAT) 30 ML LIQUID GT SCH ×3 (05:26→21:25)
[2019-10-08] MEDS: ARGININE/GLUTAMINE/CALCIUM BMB 1 EACH POWD.PACK GT SCH ×2 (05:26→18:16)
[2019-10-08 07:31] VITALS: BP 98/50
[2019-10-08] MEDS: ACETAMINOPHEN 650 MG/20.3 ML LIQUID UDC GT SCH (08:30)
[2019-10-08] MEDS: ACIDOPHILUS/BULGARICUS CHEW TAB GT SCH ×2 (09:42→21:25)
[2019-10-08] MEDS: SERTRALINE 25 MG GT SCH (09:43)
[2019-10-08] MEDS: CHLORHEXIDINE GLUCONATE 15 ML MOUTHWASH MM SCH (09:44)
[2019-10-08] MEDS: COD LIVER OIL/ZINC OXIDE OINT 113 GM TUBE TP SCH (09:44)
[2019-10-08] MEDS: HYDROGEN PEROXIDE 3% 118 ML BOTTLE TP SCH ×2 (09:57→20:44)
[2019-10-08] MEDS: JEVITY 1.2 1000 ML LIQUID GT PRN (12:58)
--- NOTE | 2019-10-08 17:02 | NUR ---
new orders noted and carried out to ABHIJIT FISCHERN.
[2019-10-08 20:00] VITALS: BP 93/48
[2019-10-08] MEDS: ASCORBIC ACID 500 MG TABLET GT SCH (21:25)
[2019-10-08] MEDS: MULTIVIT, IRON, MIN NO. 8, FA TABLET GT SCH (21:25)
[2019-10-08] MEDS: SIMVASTATIN 10 MG TABLET GT SCH (21:25)
[2019-10-09] MEDS: BACLOFEN 10 MG TABLET GT SCH ×4 (00:27→18:31)
[2019-10-09] MEDS: PROTEIN SUPPLEMENT (PROSTAT) 30 ML LIQUID GT SCH ×3 (05:48→22:09)
[2019-10-09] MEDS: ARGININE/GLUTAMINE/CALCIUM BMB 1 EACH POWD.PACK GT SCH ×2 (05:48→18:31)
[2019-10-09] MEDS: OMEPRAZOLE 20 MG CAPSULE.DR GT SCH (05:48)
[2019-10-09] MEDS: HYDROGEN PEROXIDE 3% 118 ML BOTTLE TP SCH ×2 (07:40→21:38)
[2019-10-09 07:51] VITALS: BP 101/59
[2019-10-09] MEDS: ACIDOPHILUS/BULGARICUS CHEW TAB GT SCH ×2 (08:56→21:00)
[2019-10-09] MEDS: ACETAMINOPHEN 650 MG/20.3 ML LIQUID UDC GT SCH (08:56)
[2019-10-09] MEDS: SERTRALINE 25 MG GT SCH (08:56)
[2019-10-09] MEDS: COD LIVER OIL/ZINC OXIDE OINT 113 GM TUBE TP SCH (09:00)
--- NOTE | 2019-10-09 11:04 | NUR ---
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 DOROTHY notified Fabricio Leone in the accounting department that the form was being forwarded to him via interoffice mail, in order for it to be completed and mailed back to [employer]. DOROTHY put the form in the interoffice mail addressed to Fabricio Leone.
[2019-10-09 20:00] VITALS: BP 104/49
[2019-10-09] MEDS: SIMVASTATIN 10 MG TABLET GT SCH (21:00)
[2019-10-09] MEDS: MULTIVIT, IRON, MIN NO. 8, FA TABLET GT SCH (21:00)
[2019-10-09] MEDS: ASCORBIC ACID 500 MG TABLET GT SCH (21:00)
[2019-10-10] MEDS: BACLOFEN 10 MG TABLET GT SCH ×5 (00:03→23:18)
[2019-10-10] MEDS: PROTEIN SUPPLEMENT (PROSTAT) 30 ML LIQUID GT SCH ×3 (05:04→22:04)
[2019-10-10] MEDS: ARGININE/GLUTAMINE/CALCIUM BMB 1 EACH POWD.PACK GT SCH ×2 (05:04→17:59)
[2019-10-10] MEDS: OMEPRAZOLE 20 MG CAPSULE.DR GT SCH (05:04)
[2019-10-10 07:50] VITALS: BP 107/43
[2019-10-10] MEDS: ACIDOPHILUS/BULGARICUS CHEW TAB GT SCH ×2 (08:35→21:00)
[2019-10-10] MEDS: ACETAMINOPHEN 650 MG/20.3 ML LIQUID UDC GT SCH (08:35)
[2019-10-10] MEDS: SERTRALINE 25 MG GT SCH (08:35)
[2019-10-10] MEDS: COD LIVER OIL/ZINC OXIDE OINT 113 GM TUBE TP SCH (09:05)
[2019-10-10] MEDS: HYDROGEN PEROXIDE 3% 118 ML BOTTLE TP SCH ×2 (09:50→21:01)
[2019-10-10] MEDS: JEVITY 1.2 1000 ML LIQUID GT PRN (18:52)
[2019-10-10 20:20] VITALS: BP 108/42
[2019-10-10] MEDS: SIMVASTATIN 10 MG TABLET GT SCH (21:00)
[2019-10-10] MEDS: ASCORBIC ACID 500 MG TABLET GT SCH (21:00)
[2019-10-10] MEDS: MULTIVIT, IRON, MIN NO. 8, FA TABLET GT SCH (21:00)
[2019-10-11] MEDS: ARGININE/GLUTAMINE/CALCIUM BMB 1 EACH POWD.PACK GT SCH ×2 (05:09→17:33)
[2019-10-11] MEDS: PROTEIN SUPPLEMENT (PROSTAT) 30 ML LIQUID GT SCH ×3 (05:09→21:41)
[2019-10-11] MEDS: BACLOFEN 10 MG TABLET GT SCH ×3 (05:09→17:33)
[2019-10-11] MEDS: OMEPRAZOLE 20 MG CAPSULE.DR GT SCH (05:09)
[2019-10-11 07:43] VITALS: BP 98/49
[2019-10-11] MEDS: COD LIVER OIL/ZINC OXIDE OINT 113 GM TUBE TP SCH (08:11)
[2019-10-11] MEDS: ACETAMINOPHEN 650 MG/20.3 ML LIQUID UDC GT SCH (08:11)
[2019-10-11] MEDS: ACIDOPHILUS/BULGARICUS CHEW TAB GT SCH ×2 (08:11→21:41)
[2019-10-11] MEDS: SERTRALINE 25 MG GT SCH (08:11)
[2019-10-11] MEDS: HYDROGEN PEROXIDE 3% 118 ML BOTTLE TP SCH ×2 (08:23→21:20)
[2019-10-11] MEDS: JEVITY 1.2 1000 ML LIQUID GT PRN (17:34)
[2019-10-11 20:20] VITALS: BP 104/46
[2019-10-11] MEDS: MULTIVIT, IRON, MIN NO. 8, FA TABLET GT SCH (21:41)
[2019-10-11] MEDS: ASCORBIC ACID 500 MG TABLET GT SCH (21:41)
[2019-10-11] MEDS: SIMVASTATIN 10 MG TABLET GT SCH (21:41)
[2019-10-12] MEDS: BACLOFEN 10 MG TABLET GT SCH ×4 (00:10→17:34)
[2019-10-12] MEDS: ARGININE/GLUTAMINE/CALCIUM BMB 1 EACH POWD.PACK GT SCH ×2 (05:21→17:34)
[2019-10-12] MEDS: OMEPRAZOLE 20 MG CAPSULE.DR GT SCH (05:21)
[2019-10-12] MEDS: PROTEIN SUPPLEMENT (PROSTAT) 30 ML LIQUID GT SCH ×3 (05:21→21:57)
[2019-10-12 07:53] VITALS: BP 118/71
[2019-10-12] MEDS: HYDROGEN PEROXIDE 3% 118 ML BOTTLE TP SCH ×2 (08:46→21:30)
[2019-10-12] MEDS: ACETAMINOPHEN 650 MG/20.3 ML LIQUID UDC GT SCH (09:11)
[2019-10-12] MEDS: COD LIVER OIL/ZINC OXIDE OINT 113 GM TUBE TP SCH (09:12)
[2019-10-12] MEDS: ACIDOPHILUS/BULGARICUS CHEW TAB GT SCH ×2 (09:12→21:57)
[2019-10-12] MEDS: SERTRALINE 25 MG GT SCH (09:12)
--- NOTE | 2019-10-12 19:30 | NUR ---
Seen by JUDEEN BUN ICER WITH NNO NOTED.
[2019-10-12] MEDS: SIMVASTATIN 10 MG TABLET GT SCH (21:57)
[2019-10-12] MEDS: MULTIVIT, IRON, MIN NO. 8, FA TABLET GT SCH (21:57)
[2019-10-12] MEDS: ASCORBIC ACID 500 MG TABLET GT SCH (21:57)
[2019-10-12 22:27] VITALS: BP 108/54
[2019-10-13] MEDS: BACLOFEN 10 MG TABLET GT SCH ×4 (00:55→17:51)
[2019-10-13] MEDS: PROTEIN SUPPLEMENT (PROSTAT) 30 ML LIQUID GT SCH ×3 (05:09→22:10)
[2019-10-13] MEDS: OMEPRAZOLE 20 MG CAPSULE.DR GT SCH (05:09)
[2019-10-13] MEDS: ARGININE/GLUTAMINE/CALCIUM BMB 1 EACH POWD.PACK GT SCH ×2 (05:09→17:51)
[2019-10-13 07:51] VITALS: BP 119/71
[2019-10-13] MEDS: HYDROGEN PEROXIDE 3% 118 ML BOTTLE TP SCH ×2 (08:00→20:36)
[2019-10-13] MEDS: COD LIVER OIL/ZINC OXIDE OINT 113 GM TUBE TP SCH (08:35)
[2019-10-13] MEDS: ACIDOPHILUS/BULGARICUS CHEW TAB GT SCH ×2 (08:35→20:34)
[2019-10-13] MEDS: ACETAMINOPHEN 650 MG/20.3 ML LIQUID UDC GT SCH (08:35)
[2019-10-13] MEDS: SERTRALINE 25 MG GT SCH (08:35)
--- NOTE | 2019-10-13 18:30 | NUR ---
New orders noted from Dr Aremndariz carried out,pt afebrile during this shift.
[2019-10-13 20:00] VITALS: BP 102/48
[2019-10-13] MEDS: ASCORBIC ACID 500 MG TABLET GT SCH (20:34)
[2019-10-13] MEDS: SIMVASTATIN 10 MG TABLET GT SCH (20:35)
[2019-10-13] MEDS: MULTIVIT, IRON, MIN NO. 8, FA TABLET GT SCH (20:35)
--- NOTE | 2019-10-13 21:30 | NUR ---
PT TEMP 99.9 URINE SPECIMEN WAS COLLECTED ORDERED.CONTINUE MONITOR FOR FEVER.KEEP CLEAN AND COMFORTABLE.
[2019-10-13 22:04] LABS: *BILIRUBIN,URIN NEGATIVE (NEGATIVE); *BLOOD, URINE 3+ (NEGATIVE); *CLARITY,URINE CLOUDY (CLEAR); *COLOR,URINE YELLOW (YELLOW); *KETONES,URINE NEGATIVE (NEGATIVE); *UROBILINOGEN,URINE 0.2 E.U./dl (NORMAL); LEUKOCYTE ESTERASE ,URINE 3+ (NEGATIVE); NITRITE, URINE NEGATIVE (NEGATIVE); UGLUCOSE NEGATIVE (NEGATIVE)
[2019-10-13 22:11] LABS: BACTERIA,URINE MANY /HPF (NONE SEEN); RBC,URINE 50-80 /HPF (0-3); SQUAMOUS EPITHELIAL CELL,UR MODERATE /HPF (NONE SEEN); WBC,URINE 50-80 /HPF (0-3); YEAST,URINE MODERATE /HPF (NONE SEEN)
[2019-10-14] MEDS: BACLOFEN 10 MG TABLET GT SCH ×4 (00:16→17:38)
[2019-10-14] MEDS: OMEPRAZOLE 20 MG CAPSULE.DR GT SCH (06:40)
[2019-10-14] MEDS: PROTEIN SUPPLEMENT (PROSTAT) 30 ML LIQUID GT SCH ×3 (06:40→21:11)
[2019-10-14] MEDS: ARGININE/GLUTAMINE/CALCIUM BMB 1 EACH POWD.PACK GT SCH ×2 (06:40→17:38)
[2019-10-14 07:34] VITALS: BP 93/63
[2019-10-14] MEDS: HYDROCODONE/APAP 5-325MG TABLET GT PRN (07:51)
[2019-10-14 08:01] LABS: BASOPHILS % (AUTO) 0.4 % (0.0-2.0); EOSINOPHILS # (AUTO) 0.5 K/uL (0.0-0.7); HEMATOCRIT 38.5 % (31.2-41.9); HEMOGLOBIN 12.4 g/dL (10.9-14.3); LYMPHOCYTES % (AUTO) 21.6 % (20.5-51.5); MEAN CORPUSCULAR HEMOGLOBIN 29.5 uug (24.7-32.8); MEAN CORPUSCULAR HGB CONC 32 g/dL (32.3-35.6); MEAN CORPUSCULAR VOLUME 92.1 fL (75.5-95.3); MONOCYTES % (AUTO) 11.1 % (0.0-11.0); NEUTROPHILS # (AUTO) 5.6 K/uL (1.8-8.9); NEUTROPHILS % (AUTO) 61.9 % (38.5-71.5); PLATELET COUNT (AUTO) 192 K/uL (179-408); RED BLOOD CELL COUNT(AUTO) 4.18 MIL/uL (3.63-4.92); WHITE BLOOD COUNT (AUTO) 9.1 K/uL (3.8-11.8)
[2019-10-14 08:16] LABS: BILIRUBIN,TOTAL 0.5 mg/dL (0.2-1.0); CREATININE 0.8 mg/dL (0.6-1.3); MAGNESIUM 2.3 mg/dL (1.8-2.4); PHOSPHOROUS 3.8 mg/dL (2.5-4.9); TOTAL PROTEIN, SERUM 7.6 g/dL (6.4-8.2)
[2019-10-14] MEDS: ACIDOPHILUS/BULGARICUS CHEW TAB GT SCH ×2 (09:00→21:10)
[2019-10-14] MEDS: COD LIVER OIL/ZINC OXIDE OINT 113 GM TUBE TP SCH (09:00)
[2019-10-14] MEDS: SERTRALINE 25 MG GT SCH (09:00)
[2019-10-14] MEDS: HYDROGEN PEROXIDE 3% 118 ML BOTTLE TP SCH ×2 (09:12→21:04)
[2019-10-14] MEDS: ACETAMINOPHEN 650 MG/20.3 ML LIQUID UDC GT SCH (09:45)
--- NOTE | 2019-10-14 11:30 | NUR ---
Seen by Dionna STAFFORD with no new order.
--- NOTE | 2019-10-14 14:30 | NUR ---
Morgan GAO. notified of UA, no new order given at this time.
[2019-10-14 20:00] VITALS: BP 110/51
[2019-10-14] MEDS: MULTIVIT, IRON, MIN NO. 8, FA TABLET GT SCH (21:10)
[2019-10-14] MEDS: ASCORBIC ACID 500 MG TABLET GT SCH (21:11)
[2019-10-14] MEDS: SIMVASTATIN 10 MG TABLET GT SCH (21:11)
[2019-10-15] MEDS: BACLOFEN 10 MG TABLET GT SCH ×4 (00:14→18:03)
[2019-10-15] MEDS: ARGININE/GLUTAMINE/CALCIUM BMB 1 EACH POWD.PACK GT SCH ×2 (05:42→18:03)
[2019-10-15] MEDS: PROTEIN SUPPLEMENT (PROSTAT) 30 ML LIQUID GT SCH ×3 (05:42→21:34)
[2019-10-15] MEDS: OMEPRAZOLE 20 MG CAPSULE.DR GT SCH (05:42)
[2019-10-15] MEDS: JEVITY 1.2 1000 ML LIQUID GT PRN (07:13)
[2019-10-15 07:30] VITALS: BP 115/60
[2019-10-15] MEDS: ACIDOPHILUS/BULGARICUS CHEW TAB GT SCH ×2 (08:09→21:33)
[2019-10-15] MEDS: COD LIVER OIL/ZINC OXIDE OINT 113 GM TUBE TP SCH (08:09)
[2019-10-15] MEDS: SERTRALINE 25 MG GT SCH (08:09)
[2019-10-15] MEDS: ACETAMINOPHEN 650 MG/20.3 ML LIQUID UDC GT SCH (08:09)
[2019-10-15] MEDS: HYDROGEN PEROXIDE 3% 118 ML BOTTLE TP SCH ×2 (09:28→20:54)
--- NOTE | 2019-10-15 13:47 | NUR ---
12:01pm: DOROTHY emailed patient's daughter Ludmila and informed her that the next IDT meeting for the patient has been scheduled for 10/22/2019 at 11am. DOROTHY asked Ludmila to respond to the email and let this SW know if Ludmila would like to participate in the meeting via speaker phone.
--- NOTE | 2019-10-15 16:10 | NUR ---
FT DONE WITH PT'S DAUGHTER RAKEL.
--- NOTE | 2019-10-15 18:38 | NUR ---
Seen and examined by Morgan Security Software Engineer ,no new orders at this time,will follow up until the final results of cultures.
[2019-10-15 20:02] VITALS: BP 108/46
[2019-10-15] MEDS: SIMVASTATIN 10 MG TABLET GT SCH (21:34)
[2019-10-15] MEDS: ASCORBIC ACID 500 MG TABLET GT SCH (21:34)
[2019-10-15] MEDS: MULTIVIT, IRON, MIN NO. 8, FA TABLET GT SCH (21:34)
[2019-10-15] MEDS: TEMAZEPAM 7.5 MG CAPSULE GT PRN (22:08)
[2019-10-16] MEDS: BACLOFEN 10 MG TABLET GT SCH ×4 (00:18→17:32)
[2019-10-16] MEDS: JEVITY 1.2 1000 ML LIQUID GT PRN (04:58)
[2019-10-16] MEDS: PROTEIN SUPPLEMENT (PROSTAT) 30 ML LIQUID GT SCH ×3 (05:24→21:47)
[2019-10-16] MEDS: ARGININE/GLUTAMINE/CALCIUM BMB 1 EACH POWD.PACK GT SCH ×2 (05:24→17:32)
[2019-10-16] MEDS: OMEPRAZOLE 20 MG CAPSULE.DR GT SCH (05:24)
[2019-10-16 07:47] VITALS: BP 100/49
[2019-10-16] MEDS: HYDROGEN PEROXIDE 3% 118 ML BOTTLE TP SCH ×2 (08:26→20:40)
[2019-10-16] MEDS: COD LIVER OIL/ZINC OXIDE OINT 113 GM TUBE TP SCH (08:31)
[2019-10-16] MEDS: ACIDOPHILUS/BULGARICUS CHEW TAB GT SCH ×2 (08:31→21:46)
[2019-10-16] MEDS: ACETAMINOPHEN 650 MG/20.3 ML LIQUID UDC GT SCH (08:31)
[2019-10-16] MEDS: SERTRALINE 25 MG GT SCH (08:31)
--- NOTE | 2019-10-16 12:35 | NUR ---
Seen and examined by RAINE LevyO.
--- NOTE | 2019-10-16 12:35 | NUR ---
B/P 106/58,p 67,RR 20 ,O2 Sat 94%,temp 97.3,suctioned frequently,with moderated to large amount of pale yellowish secretions.
[2019-10-16 19:55] VITALS: BP 108/52
[2019-10-16] MEDS: MULTIVIT, IRON, MIN NO. 8, FA TABLET GT SCH (21:46)
[2019-10-16] MEDS: ASCORBIC ACID 500 MG TABLET GT SCH (21:46)
[2019-10-16] MEDS: SIMVASTATIN 10 MG TABLET GT SCH (21:47)
[2019-10-16] MEDS: TEMAZEPAM 7.5 MG CAPSULE GT PRN (23:00)
[2019-10-17] MEDS: BACLOFEN 10 MG TABLET GT SCH ×4 (00:22→17:09)
[2019-10-17] MEDS: JEVITY 1.2 1000 ML LIQUID GT PRN (04:46)
[2019-10-17] MEDS: ARGININE/GLUTAMINE/CALCIUM BMB 1 EACH POWD.PACK GT SCH ×2 (05:08→17:09)
[2019-10-17] MEDS: OMEPRAZOLE 20 MG CAPSULE.DR GT SCH (05:08)
[2019-10-17] MEDS: PROTEIN SUPPLEMENT (PROSTAT) 30 ML LIQUID GT SCH ×3 (05:08→21:43)
[2019-10-17 07:37] VITALS: BP 111/38
[2019-10-17] MEDS: ACIDOPHILUS/BULGARICUS CHEW TAB GT SCH ×2 (08:26→21:42)
[2019-10-17] MEDS: COD LIVER OIL/ZINC OXIDE OINT 113 GM TUBE TP SCH (08:26)
[2019-10-17] MEDS: ACETAMINOPHEN 650 MG/20.3 ML LIQUID UDC GT SCH (08:26)
[2019-10-17] MEDS: SERTRALINE 25 MG GT SCH (08:26)
[2019-10-17] MEDS: HYDROGEN PEROXIDE 3% 118 ML BOTTLE TP SCH ×2 (09:00→21:06)
--- NOTE | 2019-10-17 14:15 | NUR ---
DR. TURCIOS WAS PAGED RE:RESULT OF URINE CX WITH CRE.
[2019-10-17] MEDS: ACETAMINOPHEN 650 MG/20 ML UDC- SA PATIENTS-PAIN ONLY GT PRN (14:36)
--- NOTE | 2019-10-17 15:00 | NUR ---
CALLED BACK AND WITH NEW ORDERS CARRIED OUT.
[2019-10-17] MEDS: NITROFURANTOIN/NITROFURAN MAC 100 MG CAPSULE PO SCH (18:16)
[2019-10-17 20:00] VITALS: BP 104/49
[2019-10-17] MEDS: MULTIVIT, IRON, MIN NO. 8, FA TABLET GT SCH (21:42)
[2019-10-17] MEDS: ASCORBIC ACID 500 MG TABLET GT SCH (21:42)
[2019-10-17] MEDS: SIMVASTATIN 10 MG TABLET GT SCH (21:43)
[2019-10-18] MEDS: BACLOFEN 10 MG TABLET GT SCH ×5 (00:22→23:08)
[2019-10-18] MEDS: ARGININE/GLUTAMINE/CALCIUM BMB 1 EACH POWD.PACK GT SCH ×2 (05:17→17:00)
[2019-10-18] MEDS: OMEPRAZOLE 20 MG CAPSULE.DR GT SCH (05:17)
[2019-10-18] MEDS: PROTEIN SUPPLEMENT (PROSTAT) 30 ML LIQUID GT SCH ×3 (05:18→21:18)
[2019-10-18] MEDS: NITROFURANTOIN/NITROFURAN MAC 100 MG CAPSULE PO SCH ×2 (05:18→17:00)
[2019-10-18 07:50] VITALS: BP 101/53
[2019-10-18] MEDS: HYDROGEN PEROXIDE 3% 118 ML BOTTLE TP SCH ×2 (08:11→21:06)
[2019-10-18] MEDS: ACIDOPHILUS/BULGARICUS CHEW TAB GT SCH ×2 (08:21→21:17)
[2019-10-18] MEDS: ACETAMINOPHEN 650 MG/20.3 ML LIQUID UDC GT SCH (08:21)
[2019-10-18] MEDS: COD LIVER OIL/ZINC OXIDE OINT 113 GM TUBE TP SCH (08:22)
[2019-10-18] MEDS: SERTRALINE 25 MG GT SCH (08:22)
[2019-10-18 20:00] VITALS: BP 108/48
[2019-10-18] MEDS: MULTIVIT, IRON, MIN NO. 8, FA TABLET GT SCH (21:17)
[2019-10-18] MEDS: TEMAZEPAM 7.5 MG CAPSULE GT PRN (21:18)
[2019-10-18] MEDS: SIMVASTATIN 10 MG TABLET GT SCH (21:18)
[2019-10-18] MEDS: ASCORBIC ACID 500 MG TABLET GT SCH (21:18)
--- NOTE | 2019-10-19 02:52 | NUR ---
Patient is afebrile, no respiratory distress noted, on Nitrofurantoin via GT for CRE /UTI, no adverse reactions noted, fluids given as ordered, baumann catheter draining well to yellow urine, good sukumar care rendered, on contact isolation for CRE/UTI , kept clean and comfortable.
[2019-10-19] MEDS: ARGININE/GLUTAMINE/CALCIUM BMB 1 EACH POWD.PACK GT SCH ×2 (05:48→17:49)
[2019-10-19] MEDS: BACLOFEN 10 MG TABLET GT SCH ×4 (05:48→23:10)
[2019-10-19] MEDS: PROTEIN SUPPLEMENT (PROSTAT) 30 ML LIQUID GT SCH ×3 (05:48→21:19)
[2019-10-19] MEDS: OMEPRAZOLE 20 MG CAPSULE.DR GT SCH (05:48)
[2019-10-19] MEDS: NITROFURANTOIN/NITROFURAN MAC 100 MG CAPSULE PO SCH ×2 (05:48→17:49)
[2019-10-19 07:44] VITALS: BP 122/44
[2019-10-19] MEDS: ACETAMINOPHEN 650 MG/20.3 ML LIQUID UDC GT SCH (08:07)
[2019-10-19] MEDS: ACIDOPHILUS/BULGARICUS CHEW TAB GT SCH ×2 (08:07→21:18)
[2019-10-19] MEDS: SERTRALINE 25 MG GT SCH (08:07)
[2019-10-19] MEDS: COD LIVER OIL/ZINC OXIDE OINT 113 GM TUBE TP SCH (08:08)
[2019-10-19] MEDS: HYDROGEN PEROXIDE 3% 118 ML BOTTLE TP SCH ×2 (08:36→21:00)
--- NOTE | 2019-10-19 09:30 | NUR ---
NEW ORDERS CARRIED OUT FROM DR. TURCIOS.
[2019-10-19 10:43] LABS: *BILIRUBIN,URIN NEGATIVE (NEGATIVE); *BLOOD, URINE 3+ (NEGATIVE); *CLARITY,URINE CLOUDY (CLEAR); *COLOR,URINE YELLOW (YELLOW); *KETONES,URINE NEGATIVE (NEGATIVE); *UROBILINOGEN,URINE 0.2 E.U./dl (NORMAL); LEUKOCYTE ESTERASE ,URINE 3+ (NEGATIVE); NITRITE, URINE NEGATIVE (NEGATIVE); UGLUCOSE NEGATIVE (NEGATIVE)
[2019-10-19 10:57] LABS: BASOPHILS # (AUTO) 0.1 K/uL (0.0-8.0); BASOPHILS % (AUTO) 0.7 % (0.0-2.0); EOSINOPHILS # (AUTO) 0.2 K/uL (0.0-0.7); EOSINOPHILS % (AUTO) 1.6 % (0.0-7.0); HEMATOCRIT 36.3 % (31.2-41.9); HEMOGLOBIN 11.7 g/dL (10.9-14.3); LYMPHOCYTES # (AUTO) 1.6 K/uL (20.0-40.0); LYMPHOCYTES % (AUTO) 12.4 % (20.5-51.5); MEAN CORPUSCULAR HEMOGLOBIN 29.3 uug (24.7-32.8); MEAN CORPUSCULAR HGB CONC 32 g/dL (32.3-35.6); MONOCYTES # (AUTO) 1.3 K/uL (2.0-10.0); MONOCYTES % (AUTO) 10.1 % (0.0-11.0); NEUTROPHILS # (AUTO) 9.5 K/uL (1.8-8.9); NEUTROPHILS % (AUTO) 75.2 % (38.5-71.5); PLATELET COUNT (AUTO) 217 K/uL (179-408); RED BLOOD CELL COUNT(AUTO) 3.99 MIL/uL (3.63-4.92); WHITE BLOOD COUNT (AUTO) 12.6 K/uL (3.8-11.8)
[2019-10-19 11:01] LABS: BACTERIA,URINE MOD /HPF (NONE SEEN); SQUAMOUS EPITHELIAL CELL,UR FEW /HPF (NONE SEEN); WBC,URINE TNTC /HPF (0-3)
[2019-10-19 11:02] LABS: CALCIUM OXALATE CRYSTALS,UR FEW /HPF (NONE SEEN); YEAST,URINE PSEUDOHYPHAE /HPF (NONE SEEN)
--- NOTE | 2019-10-19 11:40 | NUR ---
DR. TURCIOS WAS NOTIFIED RE:RESULTS OF ABNORMAL CXR AND CBC,LACTIC ACID AND UA AND AWARE OF TEMP 100.9 F AT THIS TIME AFTER A BED BATH AND TYLENOL(PREMEDICATED FOR SACRAL WOUND TX) AND WITH NEW ORDERS CARRIED OUT.
--- NOTE | 2019-10-19 12:11 | NUR ---
RAKEL GARCIA (PT'S DTR. ) WAS NOTIFIED RE:PT'S CONDITION AND NEW ORDERS AND IN AGREEMENT.
--- NOTE | 2019-10-19 12:17 | NUR ---
MICHAELA. NURSE SPOKE TO SHIRLEY FROM [facility] AND AWARE OF IV ATB ORDER AND LATEST BUN AND CREATININE ,WT AND HT. AND SHE STATED THAT IV PHARMACIST WILL CALL BACK WITH ORDERS.
[2019-10-19 12:34] LABS: BILIRUBIN,DIRECT 0.2 mg/dL (0.0-0.2); BILIRUBIN,TOTAL 0.6 mg/dL (0.2-1.0); CREATININE 0.9 mg/dL (0.6-1.3)
[2019-10-19] MEDS: VANCOMYCIN IV 1,000 MG in IV DEXTROSE 5% 250 ML IV SCH (16:15)
--- NOTE | 2019-10-19 17:42 | NUR ---
NO A/R TO IV ATB VANCOMYCIN ,PT. REMAINS AFEBRILE AND COMFORTABLE,LEFT HAND PERIPHERAL IV SITE REMAINS INTACT AND PATENT.
[2019-10-19] MEDS: MEROPENEM 1 G in IV NORMAL SALINE 100 ML IV SCH (18:19)
[2019-10-19] MEDS: JEVITY 1.2 1000 ML LIQUID GT PRN (18:34)
--- NOTE | 2019-10-19 19:27 | NUR ---
NO A/R TO MEROPENEM IV.
[2019-10-19 20:18] VITALS: BP 116/35
[2019-10-19] MEDS: MULTIVIT, IRON, MIN NO. 8, FA TABLET GT SCH (21:19)
[2019-10-19] MEDS: ASCORBIC ACID 500 MG TABLET GT SCH (21:19)
[2019-10-19] MEDS: SIMVASTATIN 10 MG TABLET GT SCH (21:19)
[2019-10-19] MEDS: TEMAZEPAM 7.5 MG CAPSULE GT PRN (21:19)
--- NOTE | 2019-10-19 22:21 | NUR ---
Temperature is 99.3, on Nitrofurantoin for CRE UTI, no adverse reactions noted. On Vancomycin and Merrem IV for fever, no adverse reactions noted. fluids given as ordered, baumann catheter draining well to yellow urine as ordered, kept clean and comfortable.
[2019-10-20] MEDS: MEROPENEM 1 G in IV NORMAL SALINE 100 ML IV SCH ×3 (02:14→18:06)
[2019-10-20] MEDS: NITROFURANTOIN/NITROFURAN MAC 100 MG CAPSULE PO SCH (05:35)
[2019-10-20] MEDS: BACLOFEN 10 MG TABLET GT SCH ×4 (05:35→23:15)
[2019-10-20] MEDS: PROTEIN SUPPLEMENT (PROSTAT) 30 ML LIQUID GT SCH ×3 (05:35→21:14)
[2019-10-20] MEDS: OMEPRAZOLE 20 MG CAPSULE.DR GT SCH (05:35)
[2019-10-20] MEDS: ARGININE/GLUTAMINE/CALCIUM BMB 1 EACH POWD.PACK GT SCH ×2 (05:35→18:02)
[2019-10-20 07:00] LABS: BASOPHILS # (AUTO) 0.1 K/uL (0.0-8.0); BASOPHILS % (AUTO) 0.7 % (0.0-2.0); EOSINOPHILS # (AUTO) 0.5 K/uL (0.0-0.7); HEMATOCRIT 33.2 % (31.2-41.9); HEMOGLOBIN 10.7 g/dL (10.9-14.3); LYMPHOCYTES # (AUTO) 1.3 K/uL (20.0-40.0); LYMPHOCYTES % (AUTO) 14.3 % (20.5-51.5); MEAN CORPUSCULAR HEMOGLOBIN 29.4 uug (24.7-32.8); MEAN CORPUSCULAR HGB CONC 32 g/dL (32.3-35.6); MEAN CORPUSCULAR VOLUME 91.3 fL (75.5-95.3); MONOCYTES # (AUTO) 0.7 K/uL (2.0-10.0); MONOCYTES % (AUTO) 7.5 % (0.0-11.0); NEUTROPHILS # (AUTO) 6.6 K/uL (1.8-8.9); NEUTROPHILS % (AUTO) 72.5 % (38.5-71.5); PLATELET COUNT (AUTO) 191 K/uL (179-408); RED BLOOD CELL COUNT(AUTO) 3.64 MIL/uL (3.63-4.92); WHITE BLOOD COUNT (AUTO) 9.1 K/uL (3.8-11.8)
[2019-10-20 07:31] VITALS: BP 109/63
[2019-10-20] MEDS: HYDROGEN PEROXIDE 3% 118 ML BOTTLE TP SCH ×2 (07:50→21:09)
[2019-10-20] MEDS: ACETAMINOPHEN 650 MG/20.3 ML LIQUID UDC GT SCH (09:09)
[2019-10-20] MEDS: COD LIVER OIL/ZINC OXIDE OINT 113 GM TUBE TP SCH (09:09)
[2019-10-20] MEDS: ACIDOPHILUS/BULGARICUS CHEW TAB GT SCH ×2 (09:09→21:14)
[2019-10-20] MEDS: SERTRALINE 25 MG GT SCH (09:09)
--- NOTE | 2019-10-20 12:48 | NUR ---
TEMP ORALLY 98.7F .NO A/R TO ATB TX IV .
[2019-10-20] MEDS: VANCOMYCIN IV 1,000 MG in IV DEXTROSE 5% 250 ML IV SCH (16:20)
--- NOTE | 2019-10-20 19:11 | NUR ---
NO A/R TO ATB TX IV.
[2019-10-20] MEDS: JEVITY 1.2 1000 ML LIQUID GT PRN (19:14)
--- NOTE | 2019-10-20 20:37 | NUR ---
Seen notes from Dr. Pittman with no new orders.
[2019-10-20 20:42] VITALS: BP 108/47
[2019-10-20] MEDS: ASCORBIC ACID 500 MG TABLET GT SCH (21:14)
[2019-10-20] MEDS: SIMVASTATIN 10 MG TABLET GT SCH (21:14)
[2019-10-20] MEDS: TEMAZEPAM 7.5 MG CAPSULE GT PRN (21:14)
[2019-10-20] MEDS: MULTIVIT, IRON, MIN NO. 8, FA TABLET GT SCH (21:14)
--- NOTE | 2019-10-20 22:57 | NUR ---
Afebrile,m temperature is 98.8, no signs of any distress noted, on Merrem IV for CRE UTI, no adverse reactions noted. On contact isolation precaution at this time, baumann catheter draining well to yellow urine, good sukumar care rendered, sacral wound treatment done as ordered, turned and repositioned, kept clean and comfortable.
[2019-10-21] MEDS: MEROPENEM 1 G in IV NORMAL SALINE 100 ML IV SCH ×3 (02:05→17:03)
[2019-10-21] MEDS: PROTEIN SUPPLEMENT (PROSTAT) 30 ML LIQUID GT SCH ×3 (05:42→21:33)
[2019-10-21] MEDS: OMEPRAZOLE 20 MG CAPSULE.DR GT SCH (05:42)
[2019-10-21] MEDS: BACLOFEN 10 MG TABLET GT SCH ×4 (05:42→23:46)
[2019-10-21] MEDS: ARGININE/GLUTAMINE/CALCIUM BMB 1 EACH POWD.PACK GT SCH ×2 (05:42→17:47)
[2019-10-21 07:45] VITALS: BP 107/57
[2019-10-21] MEDS: SERTRALINE 25 MG GT SCH (08:38)
[2019-10-21] MEDS: ACETAMINOPHEN 650 MG/20.3 ML LIQUID UDC GT SCH (08:38)
[2019-10-21] MEDS: ACIDOPHILUS/BULGARICUS CHEW TAB GT SCH ×2 (08:38→21:32)
[2019-10-21] MEDS: COD LIVER OIL/ZINC OXIDE OINT 113 GM TUBE TP SCH (08:38)
[2019-10-21] MEDS: HYDROGEN PEROXIDE 3% 118 ML BOTTLE TP SCH ×2 (09:06→21:27)
--- NOTE | 2019-10-21 12:00 | NUR ---
SEEN BY AMY Lorenzo AND WITH NNO.PT. WAS SEEN BY DR. TURCIOS AND WITH NNO AT THIS TIME.
[2019-10-21 15:39] LABS: CREATININE 0.7 mg/dL (0.6-1.3)
--- NOTE | 2019-10-21 15:57 | NUR ---
DOROTHY sent patient's daughter/LOIDA Keys an email informing her that effective October 21, video chats with the patient will be done through [employer].
--- NOTE | 2019-10-21 15:59 | NUR ---
IV PHARMACIST HORACIO FROM [facility] WAS NOTIFIED ABOUT VANCOMYCIN THROUGH AND BUN AND CREATININE LAB RESULTS TODAY AND ASKED NURSE TO ADM. VANCOMYCIN AND WILL CALL LATER ON.
[2019-10-21] MEDS: VANCOMYCIN IV 1,000 MG in IV DEXTROSE 5% 250 ML IV SCH (16:08)
--- NOTE | 2019-10-21 16:49 | NUR ---
NEW ORDER CARRIED OUT FROM DR. TURCIOS TO D/C VANCOMYCIN IV.
[2019-10-21] MEDS: JEVITY 1.2 1000 ML LIQUID GT PRN (17:47)
[2019-10-21 20:30] VITALS: BP 120/64
[2019-10-21 20:31] VITALS: BP 102/38
[2019-10-21] MEDS: ASCORBIC ACID 500 MG TABLET GT SCH (21:32)
[2019-10-21] MEDS: MULTIVIT, IRON, MIN NO. 8, FA TABLET GT SCH (21:32)
[2019-10-21] MEDS: SIMVASTATIN 10 MG TABLET GT SCH (21:33)
--- NOTE | 2019-10-21 22:50 | NUR ---
Patient is afebrile, on Merrem for CRE/ UTI, no adverse reactions noted, on contact isolation precaution, no respiratory distress noted, baumann catheter is draining well to yellow urine, good sukumar care rendered, treatment done to sacral wound , turned and repositioned, kept clean and comfortable.
[2019-10-22] MEDS: MEROPENEM 1 G in IV NORMAL SALINE 100 ML IV SCH ×2 (02:08→10:34)
[2019-10-22] MEDS: OMEPRAZOLE 20 MG CAPSULE.DR GT SCH (06:18)
[2019-10-22] MEDS: BACLOFEN 10 MG TABLET GT SCH ×3 (06:18→18:17)
[2019-10-22] MEDS: ARGININE/GLUTAMINE/CALCIUM BMB 1 EACH POWD.PACK GT SCH ×2 (06:19→18:17)
[2019-10-22] MEDS: PROTEIN SUPPLEMENT (PROSTAT) 30 ML LIQUID GT SCH ×3 (06:19→21:46)
[2019-10-22 07:37] VITALS: BP 110/42
[2019-10-22] MEDS: ACETAMINOPHEN 650 MG/20.3 ML LIQUID UDC GT SCH (08:54)
[2019-10-22] MEDS: ACIDOPHILUS/BULGARICUS CHEW TAB GT SCH ×2 (08:56→21:45)
[2019-10-22] MEDS: SERTRALINE 25 MG GT SCH (08:56)
[2019-10-22] MEDS: HYDROGEN PEROXIDE 3% 118 ML BOTTLE TP SCH ×2 (09:00→19:09)
[2019-10-22] MEDS: COD LIVER OIL/ZINC OXIDE OINT 113 GM TUBE TP SCH (09:45)
[2019-10-22] MEDS: HYDROGEN PEROXIDE 3% 118 ML BOTTLE TP PRN (09:46)
--- NOTE | 2019-10-22 12:47 | NUR ---
Pharmacy Update from Today's 10/22/19 IDT meeting VS: Temp 98.9 BP 110/42 HR 95 LABS: (from 10/20/19) Wbc 9.1 H/H 10.7/33.2 Plt 191 (from 10/14/19) Na 142 K 4.0 Cl 105 CO2 32 BUN/SCr 23/0.7 (10/20) BS 145 Ca 9.5 Phos 3.8 Mg 2.3 MEDICATION USE REVIEWED: > Pt not on any anti-seizure medications > Pt on Restoril 7.5mg HS PRN + 7.5mg PRN one hr later since last GDR on 04/03/19. Monitored hours of sleep in September: 7hrx16, 8hrx14. PRN used x12 and repeat x2 in September, about same usage as last month since likely lack of family visits (d/t covid regulations, no visitors at this time, but families do have access with Facetime sessions. Events coordinator continues with daily visits to pt rooms as well). No issues noted per staff. > Pt continues on Zoloft 25mg daily after failed GDR as of 05/18/19 for depression m/b sadness (pt able to verbalize/mouth in response). Patient affirmed 13 episodes sadness in September. Please see above, likely d/t covid regulations regarding family visits. No side effects noted per pt or staff. Will follow > PRN MED USAGE: (September) Tylenol for pain/temp used x5 pain, x1 fever Artificial Tears used x0 [place] used x1 Zofran used x0 NEW ORDERS NOTED: > Rocephin IV 09/29-10/03 for UTI > Macrobid 10/16-10/19 for UTI Klebsiella CRE per sensitivities > Vanco (10/18-518) and Merrem (10/18- current) for empiric tx of fevers, early sepsis d/t UTI/possible PNA per ID consult. Likely with shortened course per ID d/t low procalcitonin > Pt tested for Covid 10/01, result negative > Per Rx rec, benadryl PRN d/c'd 10/07 d/t lack of use, previously for temporary rxn now resolved. Patient reviewed and discussed in detail at IDT with no issues noted per staff at this time. Patient has history of recurrent UTIs, managed per ID and may request urology consult. Pt otherwise stable at this time, no further rx recommendations for now. Will continue to monitor.
--- NOTE | 2019-10-22 12:57 | NUR ---
INTERDISCIPLINARY PLAN OF CARE CONFERENCE was held today. Patient's daughter Ludmila was not available to participate in the meeting. Dr. Sylvester and the Interdisciplinary Team reviewed the current plan of care in detail. RN reported on patient's current medical condition and recent treatments. Patient continues to remain on isolation precautions. See RN IDT conference notes. See all also other disciplines IDT notes and physician's progress notes for additional details.
--- NOTE | 2019-10-22 18:00 | NUR ---
Continue on ivatb,Merren discontinue, on Gentamycin 100 mg ivatb every 12 hours to start tonight,pt has pseudomonas in urine.iv site intact.
[2019-10-22] MEDS: JEVITY 1.2 1000 ML LIQUID GT PRN (18:19)
--- NOTE | 2019-10-22 18:20 | NUR ---
On Isolation precautions for Cre in urine,observe closely.
--- NOTE | 2019-10-22 20:00 | NUR ---
SEEN BY FERNANDO GAO WITH NNO.
[2019-10-22 20:03] VITALS: BP 106/53
[2019-10-22] MEDS: GENTAMICIN SULFATE INJ 100 MG in IV DEXTROSE 5% 100 ML IV SCH (21:00)
[2019-10-22] MEDS: MULTIVIT, IRON, MIN NO. 8, FA TABLET GT SCH (21:45)
[2019-10-22] MEDS: SIMVASTATIN 10 MG TABLET GT SCH (21:45)
[2019-10-22] MEDS: ASCORBIC ACID 500 MG TABLET GT SCH (21:45)
[2019-10-23] MEDS: BACLOFEN 10 MG TABLET GT SCH ×4 (00:03→18:21)
[2019-10-23] MEDS: PROTEIN SUPPLEMENT (PROSTAT) 30 ML LIQUID GT SCH ×3 (05:25→22:04)
[2019-10-23] MEDS: ARGININE/GLUTAMINE/CALCIUM BMB 1 EACH POWD.PACK GT SCH ×2 (05:25→18:21)
[2019-10-23] MEDS: OMEPRAZOLE 20 MG CAPSULE.DR GT SCH (05:25)
[2019-10-23 07:38] VITALS: BP 102/41
[2019-10-23] MEDS: ACETAMINOPHEN 650 MG/20.3 ML LIQUID UDC GT SCH (08:41)
[2019-10-23] MEDS: ACIDOPHILUS/BULGARICUS CHEW TAB GT SCH ×2 (08:42→21:00)
[2019-10-23] MEDS: GENTAMICIN SULFATE INJ 100 MG in IV DEXTROSE 5% 100 ML IV SCH ×2 (08:43→21:11)
[2019-10-23] MEDS: SERTRALINE 25 MG GT SCH (08:43)
--- NOTE | 2019-10-23 08:55 | NUR ---
Pt afebrile denies pain or discomfort continue on gentamicin 100mg IV given by RN. For treatment CRE/UTI f/c draining well clear yellow urine.
[2019-10-23] MEDS: COD LIVER OIL/ZINC OXIDE OINT 113 GM TUBE TP SCH (09:00)
[2019-10-23] MEDS: HYDROGEN PEROXIDE 3% 118 ML BOTTLE TP SCH ×2 (09:00→21:44)
[2019-10-23] MEDS: HYDROGEN PEROXIDE 3% 118 ML BOTTLE TP PRN (09:23)
[2019-10-23] MEDS: JEVITY 1.2 1000 ML LIQUID GT PRN (18:29)
[2019-10-23 20:01] VITALS: BP 104/47
[2019-10-23] MEDS: ASCORBIC ACID 500 MG TABLET GT SCH (21:00)
[2019-10-23] MEDS: MULTIVIT, IRON, MIN NO. 8, FA TABLET GT SCH (21:00)
[2019-10-23] MEDS: SIMVASTATIN 10 MG TABLET GT SCH (21:00)
[2019-10-24] MEDS: BACLOFEN 10 MG TABLET GT SCH ×4 (00:09→18:48)
[2019-10-24] MEDS: PROTEIN SUPPLEMENT (PROSTAT) 30 ML LIQUID GT SCH ×3 (05:33→21:56)
[2019-10-24] MEDS: ARGININE/GLUTAMINE/CALCIUM BMB 1 EACH POWD.PACK GT SCH ×2 (05:33→18:48)
[2019-10-24] MEDS: OMEPRAZOLE 20 MG CAPSULE.DR GT SCH (05:33)
[2019-10-24 07:23] VITALS: BP 99/48
[2019-10-24] MEDS: ACIDOPHILUS/BULGARICUS CHEW TAB GT SCH ×2 (08:45→21:52)
[2019-10-24] MEDS: ACETAMINOPHEN 650 MG/20.3 ML LIQUID UDC GT SCH (08:45)
[2019-10-24] MEDS: SERTRALINE 25 MG GT SCH (08:45)
[2019-10-24] MEDS: COD LIVER OIL/ZINC OXIDE OINT 113 GM TUBE TP SCH (08:48)
[2019-10-24] MEDS: HYDROGEN PEROXIDE 3% 118 ML BOTTLE TP SCH ×2 (09:00→21:12)
[2019-10-24] MEDS: GENTAMICIN SULFATE INJ 100 MG in IV DEXTROSE 5% 100 ML IV SCH ×2 (09:00→21:01)
[2019-10-24 20:07] VITALS: BP 115/50
[2019-10-24] MEDS: SIMVASTATIN 10 MG TABLET GT SCH (21:55)
[2019-10-24] MEDS: MULTIVIT, IRON, MIN NO. 8, FA TABLET GT SCH (21:55)
[2019-10-24] MEDS: ASCORBIC ACID 500 MG TABLET GT SCH (21:55)
[2019-10-25] MEDS: BACLOFEN 10 MG TABLET GT SCH ×5 (00:11→23:41)
[2019-10-25] MEDS: OMEPRAZOLE 20 MG CAPSULE.DR GT SCH (05:40)
[2019-10-25] MEDS: ARGININE/GLUTAMINE/CALCIUM BMB 1 EACH POWD.PACK GT SCH ×2 (05:40→17:02)
[2019-10-25] MEDS: PROTEIN SUPPLEMENT (PROSTAT) 30 ML LIQUID GT SCH ×3 (05:40→21:12)
[2019-10-25 07:27] VITALS: BP 105/54
[2019-10-25] MEDS: GENTAMICIN SULFATE INJ 100 MG in IV DEXTROSE 5% 100 ML IV SCH (09:09)
[2019-10-25] MEDS: SERTRALINE 25 MG GT SCH (09:11)
[2019-10-25] MEDS: COD LIVER OIL/ZINC OXIDE OINT 113 GM TUBE TP SCH (09:11)
[2019-10-25] MEDS: ACETAMINOPHEN 650 MG/20.3 ML LIQUID UDC GT SCH (09:11)
[2019-10-25] MEDS: ACIDOPHILUS/BULGARICUS CHEW TAB GT SCH ×2 (09:11→21:12)
[2019-10-25] MEDS: HYDROGEN PEROXIDE 3% 118 ML BOTTLE TP SCH ×2 (09:28→21:10)
[2019-10-25 20:20] VITALS: BP 101/50
[2019-10-25] MEDS: MULTIVIT, IRON, MIN NO. 8, FA TABLET GT SCH (21:12)
[2019-10-25] MEDS: SIMVASTATIN 10 MG TABLET GT SCH (21:12)
[2019-10-25] MEDS: ASCORBIC ACID 500 MG TABLET GT SCH (21:12)
[2019-10-26] MEDS: PROTEIN SUPPLEMENT (PROSTAT) 30 ML LIQUID GT SCH ×3 (06:17→21:38)
[2019-10-26] MEDS: OMEPRAZOLE 20 MG CAPSULE.DR GT SCH (06:17)
[2019-10-26] MEDS: ARGININE/GLUTAMINE/CALCIUM BMB 1 EACH POWD.PACK GT SCH ×2 (06:17→17:47)
[2019-10-26] MEDS: BACLOFEN 10 MG TABLET GT SCH ×4 (06:17→23:04)
[2019-10-26 08:01] VITALS: BP 111/99
[2019-10-26] MEDS: ACIDOPHILUS/BULGARICUS CHEW TAB GT SCH ×2 (08:39→21:38)
[2019-10-26] MEDS: ACETAMINOPHEN 650 MG/20.3 ML LIQUID UDC GT SCH (08:39)
[2019-10-26] MEDS: SERTRALINE 25 MG GT SCH (08:39)
[2019-10-26] MEDS: COD LIVER OIL/ZINC OXIDE OINT 113 GM TUBE TP SCH (09:00)
[2019-10-26] MEDS: HYDROGEN PEROXIDE 3% 118 ML BOTTLE TP SCH ×2 (10:00→21:23)
[2019-10-26] MEDS: JEVITY 1.2 1000 ML LIQUID GT PRN (17:48)
[2019-10-26 19:46] VITALS: BP 102/55
[2019-10-26] MEDS: MULTIVIT, IRON, MIN NO. 8, FA TABLET GT SCH (21:38)
[2019-10-26] MEDS: ASCORBIC ACID 500 MG TABLET GT SCH (21:38)
[2019-10-26] MEDS: SIMVASTATIN 10 MG TABLET GT SCH (21:38)
[2019-10-26] MEDS: ACETAMINOPHEN 650 MG/20 ML UDC- SA PATIENTS-PAIN ONLY GT PRN (21:49)
[2019-10-27] MEDS: OMEPRAZOLE 20 MG CAPSULE.DR GT SCH (05:37)
[2019-10-27] MEDS: PROTEIN SUPPLEMENT (PROSTAT) 30 ML LIQUID GT SCH ×3 (05:37→21:59)
[2019-10-27] MEDS: ARGININE/GLUTAMINE/CALCIUM BMB 1 EACH POWD.PACK GT SCH ×2 (05:37→18:20)
[2019-10-27] MEDS: BACLOFEN 10 MG TABLET GT SCH ×3 (05:37→18:20)
[2019-10-27 07:29] VITALS: BP 123/45
[2019-10-27] MEDS: ACIDOPHILUS/BULGARICUS CHEW TAB GT SCH ×2 (08:30→21:57)
[2019-10-27] MEDS: SERTRALINE 25 MG GT SCH (08:30)
[2019-10-27] MEDS: COD LIVER OIL/ZINC OXIDE OINT 113 GM TUBE TP SCH (08:30)
[2019-10-27] MEDS: ACETAMINOPHEN 650 MG/20.3 ML LIQUID UDC GT SCH (08:30)
[2019-10-27] MEDS: HYDROGEN PEROXIDE 3% 118 ML BOTTLE TP SCH ×2 (09:46→20:35)
[2019-10-27] MEDS: JEVITY 1.2 1000 ML LIQUID GT PRN (18:20)
[2019-10-27 21:08] VITALS: BP 98/51
[2019-10-27] MEDS: MULTIVIT, IRON, MIN NO. 8, FA TABLET GT SCH (21:57)
[2019-10-27] MEDS: ASCORBIC ACID 500 MG TABLET GT SCH (21:57)
[2019-10-27] MEDS: SIMVASTATIN 10 MG TABLET GT SCH (21:58)
[2019-10-28] MEDS: BACLOFEN 10 MG TABLET GT SCH ×4 (00:24→17:48)
[2019-10-28] MEDS: OMEPRAZOLE 20 MG CAPSULE.DR GT SCH (05:47)
[2019-10-28] MEDS: ARGININE/GLUTAMINE/CALCIUM BMB 1 EACH POWD.PACK GT SCH ×2 (05:47→17:48)
[2019-10-28] MEDS: PROTEIN SUPPLEMENT (PROSTAT) 30 ML LIQUID GT SCH ×3 (05:48→21:43)
[2019-10-28 07:26] VITALS: BP 113/45
[2019-10-28] MEDS: ACIDOPHILUS/BULGARICUS CHEW TAB GT SCH ×2 (08:57→21:43)
[2019-10-28] MEDS: COD LIVER OIL/ZINC OXIDE OINT 113 GM TUBE TP SCH (08:57)
[2019-10-28] MEDS: SERTRALINE 25 MG GT SCH (08:57)
[2019-10-28] MEDS: ACETAMINOPHEN 650 MG/20.3 ML LIQUID UDC GT SCH (08:57)
[2019-10-28] MEDS: HYDROGEN PEROXIDE 3% 118 ML BOTTLE TP SCH ×2 (09:21→21:44)
[2019-10-28] MEDS: JEVITY 1.2 1000 ML LIQUID GT PRN (17:49)
[2019-10-28 21:01] VITALS: BP 106/60
[2019-10-28] MEDS: MULTIVIT, IRON, MIN NO. 8, FA TABLET GT SCH (21:43)
[2019-10-28] MEDS: ASCORBIC ACID 500 MG TABLET GT SCH (21:43)
[2019-10-28] MEDS: SIMVASTATIN 10 MG TABLET GT SCH (21:43)
[2019-10-29] MEDS: BACLOFEN 10 MG TABLET GT SCH ×4 (00:32→17:55)
[2019-10-29] MEDS: OMEPRAZOLE 20 MG CAPSULE.DR GT SCH (05:04)
[2019-10-29] MEDS: PROTEIN SUPPLEMENT (PROSTAT) 30 ML LIQUID GT SCH ×3 (05:04→21:37)
[2019-10-29] MEDS: ARGININE/GLUTAMINE/CALCIUM BMB 1 EACH POWD.PACK GT SCH ×2 (05:04→17:55)
[2019-10-29 07:19] VITALS: BP 105/45
[2019-10-29] MEDS: ACETAMINOPHEN 650 MG/20.3 ML LIQUID UDC GT SCH (09:12)
[2019-10-29] MEDS: SERTRALINE 25 MG GT SCH (09:12)
[2019-10-29] MEDS: COD LIVER OIL/ZINC OXIDE OINT 113 GM TUBE TP SCH ×2 (09:12→21:37)
[2019-10-29] MEDS: ACIDOPHILUS/BULGARICUS CHEW TAB GT SCH ×2 (09:12→21:35)
[2019-10-29] MEDS: HYDROGEN PEROXIDE 3% 118 ML BOTTLE TP SCH ×2 (09:16→20:39)
[2019-10-29] MEDS: JEVITY 1.2 1000 ML LIQUID GT PRN (17:55)
[2019-10-29 20:20] VITALS: BP 107/51
[2019-10-29] MEDS: MULTIVIT, IRON, MIN NO. 8, FA TABLET GT SCH (21:35)
[2019-10-29] MEDS: ASCORBIC ACID 500 MG TABLET GT SCH (21:35)
[2019-10-29] MEDS: SIMVASTATIN 10 MG TABLET GT SCH (21:36)
[2019-10-29] MEDS: SODIUM HYPOCHLORITE 0.125% (QUARTER STRENGTH) 473 ML BOTTLE TP SCH (21:36)
[2019-10-29] MEDS: THERAHONEY GEL 1.5 OZ TUBE TOP SCH (21:39)
[2019-10-30] MEDS: BACLOFEN 10 MG TABLET GT SCH ×5 (00:22→23:47)
[2019-10-30] MEDS: ARGININE/GLUTAMINE/CALCIUM BMB 1 EACH POWD.PACK GT SCH ×2 (05:46→18:26)
[2019-10-30] MEDS: PROTEIN SUPPLEMENT (PROSTAT) 30 ML LIQUID GT SCH ×3 (05:47→21:24)
[2019-10-30] MEDS: OMEPRAZOLE 20 MG CAPSULE.DR GT SCH (05:47)
[2019-10-30 07:56] VITALS: BP 118/55
[2019-10-30] MEDS: ACIDOPHILUS/BULGARICUS CHEW TAB GT SCH ×2 (09:06→21:23)
[2019-10-30] MEDS: ACETAMINOPHEN 650 MG/20.3 ML LIQUID UDC GT SCH (09:06)
[2019-10-30] MEDS: THERAHONEY GEL 1.5 OZ TUBE TOP SCH ×2 (09:06→21:23)
[2019-10-30] MEDS: SERTRALINE 25 MG GT SCH (09:06)
[2019-10-30] MEDS: COD LIVER OIL/ZINC OXIDE OINT 113 GM TUBE TP SCH ×2 (09:07→21:24)
[2019-10-30] MEDS: SODIUM HYPOCHLORITE 0.125% (QUARTER STRENGTH) 473 ML BOTTLE TP SCH ×2 (09:07→21:24)
[2019-10-30] MEDS: HYDROGEN PEROXIDE 3% 118 ML BOTTLE TP SCH ×2 (09:50→21:13)
--- NOTE | 2019-10-30 17:10 | NUR ---
New orders to do the Baseline [facility] Covid 19 test requirement.
[2019-10-30 20:00] VITALS: BP 101/47
[2019-10-30] MEDS: MULTIVIT, IRON, MIN NO. 8, FA TABLET GT SCH (21:23)
[2019-10-30] MEDS: ASCORBIC ACID 500 MG TABLET GT SCH (21:23)
[2019-10-30] MEDS: SIMVASTATIN 10 MG TABLET GT SCH (21:36)
[2019-10-30] MEDS: JEVITY 1.2 1000 ML LIQUID GT PRN (22:54)
[2019-10-31] MEDS: ARGININE/GLUTAMINE/CALCIUM BMB 1 EACH POWD.PACK GT SCH ×2 (05:27→17:32)
[2019-10-31] MEDS: PROTEIN SUPPLEMENT (PROSTAT) 30 ML LIQUID GT SCH ×3 (05:28→22:02)
[2019-10-31] MEDS: JEVITY 1.2 1000 ML LIQUID GT PRN (05:28)
[2019-10-31] MEDS: BACLOFEN 10 MG TABLET GT SCH ×3 (05:28→17:32)
[2019-10-31] MEDS: OMEPRAZOLE 20 MG CAPSULE.DR GT SCH (05:28)
[2019-10-31 07:54] VITALS: BP 130/50
[2019-10-31] MEDS: ACIDOPHILUS/BULGARICUS CHEW TAB GT SCH ×2 (08:50→21:57)
[2019-10-31] MEDS: ACETAMINOPHEN 650 MG/20.3 ML LIQUID UDC GT SCH (08:50)
[2019-10-31] MEDS: COD LIVER OIL/ZINC OXIDE OINT 113 GM TUBE TP SCH ×2 (08:51→21:00)
[2019-10-31] MEDS: SODIUM HYPOCHLORITE 0.125% (QUARTER STRENGTH) 473 ML BOTTLE TP SCH ×2 (08:51→21:00)
[2019-10-31] MEDS: THERAHONEY GEL 1.5 OZ TUBE TOP SCH ×2 (08:51→21:00)
[2019-10-31] MEDS: SERTRALINE 25 MG GT SCH (08:51)
[2019-10-31] MEDS: HYDROGEN PEROXIDE 3% 118 ML BOTTLE TP SCH ×2 (09:23→21:28)
--- NOTE | 2019-10-31 10:04 | NUR ---
SEEN AND EXAMINED BY DR. ESTEFANI RASHID.
[2019-10-31 20:00] VITALS: BP 104/50
[2019-10-31] MEDS: MULTIVIT, IRON, MIN NO. 8, FA TABLET GT SCH (21:57)
[2019-10-31] MEDS: SIMVASTATIN 10 MG TABLET GT SCH (21:57)
[2019-10-31] MEDS: ASCORBIC ACID 500 MG TABLET GT SCH (21:57)
[2019-11-01] MEDS: BACLOFEN 10 MG TABLET GT SCH ×4 (00:02→17:44)
[2019-11-01] MEDS: JEVITY 1.2 1000 ML LIQUID GT PRN (03:06)
[2019-11-01] MEDS: ARGININE/GLUTAMINE/CALCIUM BMB 1 EACH POWD.PACK GT SCH ×2 (05:20→17:44)
[2019-11-01] MEDS: PROTEIN SUPPLEMENT (PROSTAT) 30 ML LIQUID GT SCH ×3 (05:20→22:01)
[2019-11-01] MEDS: OMEPRAZOLE 20 MG CAPSULE.DR GT SCH (05:20)
[2019-11-01 07:50] VITALS: BP 116/50
--- NOTE | 2019-11-01 07:55 | NUR ---
NOTES SEEN FROM DR. TURCIOS AND NNO.
--- NOTE | 2019-11-01 08:00 | NUR ---
DR. CALDWELL CALLED BACK AND WITH NEW ORDERS CARRIED OUT.
--- NOTE | 2019-11-01 08:00 | NUR ---
RT OLET WAS CALLED AND STARTED SUCTIONING AND TITRATING OXIGEN.PT. DENIED PAIN OR DISCOMFORT TRACHEAL SECRETIONS PALE YELLOW.
[2019-11-01 08:31] LABS: ABG BASE EXCESS 3.3 mmol/L; ABG HCO3 28.1 mmol/L; ABG PCO2 43.6 mmHg (35.0-45.0); ABG PH 7.427 (7.350-7.450); ABG PO2 72.3 mmHg (75.0-100.0); ABG SITE RIGHT RADIAL; COHb 1.4 % (0.5-1.5); MetHb 0.2 % (0.0-1.5); O2Hb 93.7 % (94.0-97.0)
[2019-11-01] MEDS: ACIDOPHILUS/BULGARICUS CHEW TAB GT SCH ×2 (08:35→21:59)
[2019-11-01] MEDS: SERTRALINE 25 MG GT SCH (08:35)
[2019-11-01] MEDS: ACETAMINOPHEN 650 MG/20.3 ML LIQUID UDC GT SCH (08:35)
[2019-11-01] MEDS: SODIUM HYPOCHLORITE 0.125% (QUARTER STRENGTH) 473 ML BOTTLE TP SCH ×2 (08:36→22:00)
[2019-11-01] MEDS: COD LIVER OIL/ZINC OXIDE OINT 113 GM TUBE TP SCH ×2 (08:36→21:00)
[2019-11-01] MEDS: THERAHONEY GEL 1.5 OZ TUBE TOP SCH ×2 (08:36→21:59)
[2019-11-01] MEDS: IPRATROPIUM BROMIDE 0.5 MG/2.5 ML NEBU NEB SCH ×5 (08:55→23:10)
[2019-11-01] MEDS: ALBUTEROL SULFATE 2.5 MG/3 ML NEBU NEB SCH ×5 (08:55→23:10)
[2019-11-01 08:58] VITALS: BP 116/50
[2019-11-01] MEDS: HYDROGEN PEROXIDE 3% 118 ML BOTTLE TP SCH ×2 (09:00→21:36)
--- NOTE | 2019-11-01 09:47 | NUR ---
O2 sat 95% with fio2 40%.
[2019-11-01 09:48] VITALS: BP 116/50
--- NOTE | 2019-11-01 11:17 | NUR ---
PT. IS NEGATIVE FOR COVID [address] ABI OSBORNE WAS NOTIFIED.
--- NOTE | 2019-11-01 15:31 | NUR ---
DR. CALDWELL WAS PAGED RE: RESULTS CXR AND ABG,PT. REMAINS WITH FIO2 40% AND O2 SAT.98% AT THIS TIME.
--- NOTE | 2019-11-01 15:41 | NUR ---
AMY Lorenzo CALLED BACK AND AWARE OF LATEST PATIENT'S CONDITION AND WITH NEW ORDERS CARRIED OUT.
--- NOTE | 2019-11-01 19:05 | NUR ---
DR. CALDWELL SAW PT. AND AWARE OF LATEST CONDITION AND WITH NNO,AWAITING FOR CBC AND CMP RESULTS .
[2019-11-01 20:02] VITALS: BP 108/45
[2019-11-01 20:10] LABS: BASOPHILS # (AUTO) 0.1 K/uL (0.0-8.0); EOSINOPHILS # (AUTO) 0.4 K/uL (0.0-0.7); EOSINOPHILS % (AUTO) 3.3 % (0.0-7.0); HEMATOCRIT 39.5 % (31.2-41.9); HEMOGLOBIN 12.8 g/dL (10.9-14.3); LYMPHOCYTES # (AUTO) 2.5 K/uL (20.0-40.0); MEAN CORPUSCULAR HEMOGLOBIN 29.2 uug (24.7-32.8); MEAN CORPUSCULAR HGB CONC 32 g/dL (32.3-35.6); MEAN CORPUSCULAR VOLUME 90.3 fL (75.5-95.3); MONOCYTES # (AUTO) 1.1 K/uL (2.0-10.0); MONOCYTES % (AUTO) 9.2 % (0.0-11.0); NEUTROPHILS # (AUTO) 7.8 K/uL (1.8-8.9); NEUTROPHILS % (AUTO) 65.5 % (38.5-71.5); PLATELET COUNT (AUTO) 327 K/uL (179-408); RED BLOOD CELL COUNT(AUTO) 4.38 MIL/uL (3.63-4.92); WHITE BLOOD COUNT (AUTO) 11.9 K/uL (3.8-11.8)
[2019-11-01 20:16] LABS: BILIRUBIN,TOTAL 0.5 mg/dL (0.2-1.0); POTASSIUM 3.9 mmol/L (3.5-5.1); TOTAL PROTEIN, SERUM 8.4 g/dL (6.4-8.2)
[2019-11-01] MEDS: MULTIVIT, IRON, MIN NO. 8, FA TABLET GT SCH (21:59)
[2019-11-01] MEDS: SIMVASTATIN 10 MG TABLET GT SCH (21:59)
[2019-11-01] MEDS: ASCORBIC ACID 500 MG TABLET GT SCH (21:59)
[2019-11-01] MEDS: ACETAMINOPHEN 650 MG/20 ML UDC- SA PATIENTS-PAIN ONLY GT PRN (22:01)
[2019-11-02] MEDS: BACLOFEN 10 MG TABLET GT SCH ×5 (00:11→23:13)
[2019-11-02] MEDS: JEVITY 1.2 1000 ML LIQUID GT PRN (02:49)
[2019-11-02] MEDS: IPRATROPIUM BROMIDE 0.5 MG/2.5 ML NEBU NEB SCH ×6 (03:04→23:38)
[2019-11-02] MEDS: ALBUTEROL SULFATE 2.5 MG/3 ML NEBU NEB SCH ×6 (03:04→23:38)
[2019-11-02] MEDS: OMEPRAZOLE 20 MG CAPSULE.DR GT SCH (05:56)
[2019-11-02] MEDS: ARGININE/GLUTAMINE/CALCIUM BMB 1 EACH POWD.PACK GT SCH ×2 (05:56→18:47)
[2019-11-02] MEDS: PROTEIN SUPPLEMENT (PROSTAT) 30 ML LIQUID GT SCH ×3 (05:56→22:05)
[2019-11-02] MEDS: HYDROGEN PEROXIDE 3% 118 ML BOTTLE TP SCH ×2 (07:16→21:00)
[2019-11-02 07:42] VITALS: BP 103/46
[2019-11-02] MEDS: ACETAMINOPHEN 650 MG/20.3 ML LIQUID UDC GT SCH (08:30)
--- NOTE | 2019-11-02 09:00 | NUR ---
DR. CALDWELL AWARE OF LAB RESULTS FOR CBC AND CMP AND WITH NNO.
[2019-11-02] MEDS: THERAHONEY GEL 1.5 OZ TUBE TOP SCH ×2 (09:44→21:00)
[2019-11-02] MEDS: ACIDOPHILUS/BULGARICUS CHEW TAB GT SCH ×2 (09:44→21:00)
[2019-11-02] MEDS: SERTRALINE 25 MG GT SCH (09:44)
[2019-11-02] MEDS: SODIUM HYPOCHLORITE 0.125% (QUARTER STRENGTH) 473 ML BOTTLE TP SCH ×2 (09:44→21:00)
[2019-11-02] MEDS: COD LIVER OIL/ZINC OXIDE OINT 113 GM TUBE TP SCH ×2 (09:45→21:00)
[2019-11-02 19:54] VITALS: BP 117/50
[2019-11-02] MEDS: MULTIVIT, IRON, MIN NO. 8, FA TABLET GT SCH (21:00)
[2019-11-02] MEDS: ASCORBIC ACID 500 MG TABLET GT SCH (21:00)
[2019-11-02] MEDS: SIMVASTATIN 10 MG TABLET GT SCH (21:00)
[2019-11-03] MEDS: ALBUTEROL SULFATE 2.5 MG/3 ML NEBU NEB SCH ×6 (03:08→23:10)
[2019-11-03] MEDS: IPRATROPIUM BROMIDE 0.5 MG/2.5 ML NEBU NEB SCH ×6 (03:08→23:10)
[2019-11-03] MEDS: JEVITY 1.2 1000 ML LIQUID GT PRN (03:44)
[2019-11-03] MEDS: ARGININE/GLUTAMINE/CALCIUM BMB 1 EACH POWD.PACK GT SCH ×2 (05:17→17:17)
[2019-11-03] MEDS: BACLOFEN 10 MG TABLET GT SCH ×3 (05:17→17:17)
[2019-11-03] MEDS: OMEPRAZOLE 20 MG CAPSULE.DR GT SCH (05:17)
[2019-11-03] MEDS: PROTEIN SUPPLEMENT (PROSTAT) 30 ML LIQUID GT SCH ×3 (05:17→21:09)
[2019-11-03 08:01] VITALS: BP 120/47
[2019-11-03] MEDS: THERAHONEY GEL 1.5 OZ TUBE TOP SCH ×2 (08:05→21:07)
[2019-11-03] MEDS: SERTRALINE 25 MG GT SCH (08:05)
[2019-11-03] MEDS: ACETAMINOPHEN 650 MG/20.3 ML LIQUID UDC GT SCH (08:05)
[2019-11-03] MEDS: ACIDOPHILUS/BULGARICUS CHEW TAB GT SCH ×2 (08:05→21:07)
[2019-11-03] MEDS: COD LIVER OIL/ZINC OXIDE OINT 113 GM TUBE TP SCH ×2 (08:06→21:09)
[2019-11-03] MEDS: SODIUM HYPOCHLORITE 0.125% (QUARTER STRENGTH) 473 ML BOTTLE TP SCH ×2 (08:06→21:09)
[2019-11-03] MEDS: HYDROGEN PEROXIDE 3% 118 ML BOTTLE TP SCH ×2 (09:12→21:27)
--- NOTE | 2019-11-03 18:48 | NUR ---
Dr. Hankins was paged for temp. 100.5 f AXILLARY.
[2019-11-03 19:52] VITALS: BP 108/50
[2019-11-03] MEDS: MULTIVIT, IRON, MIN NO. 8, FA TABLET GT SCH (21:07)
[2019-11-03] MEDS: SIMVASTATIN 10 MG TABLET GT SCH (21:07)
[2019-11-03] MEDS: ASCORBIC ACID 500 MG TABLET GT SCH (21:07)
[2019-11-04] MEDS: BACLOFEN 10 MG TABLET GT SCH ×4 (00:29→17:44)
[2019-11-04] MEDS: IPRATROPIUM BROMIDE 0.5 MG/2.5 ML NEBU NEB SCH ×6 (03:10→22:51)
[2019-11-04] MEDS: ALBUTEROL SULFATE 2.5 MG/3 ML NEBU NEB SCH ×6 (03:10→22:51)
[2019-11-04] MEDS: PROTEIN SUPPLEMENT (PROSTAT) 30 ML LIQUID GT SCH ×3 (06:26→21:02)
[2019-11-04] MEDS: ARGININE/GLUTAMINE/CALCIUM BMB 1 EACH POWD.PACK GT SCH ×2 (06:26→17:44)
[2019-11-04] MEDS: JEVITY 1.2 1000 ML LIQUID GT PRN (06:26)
[2019-11-04] MEDS: OMEPRAZOLE 20 MG CAPSULE.DR GT SCH (06:26)
[2019-11-04 07:26] VITALS: BP 95/47
[2019-11-04] MEDS: ACIDOPHILUS/BULGARICUS CHEW TAB GT SCH ×2 (08:28→21:01)
[2019-11-04] MEDS: ACETAMINOPHEN 650 MG/20.3 ML LIQUID UDC GT SCH (08:28)
[2019-11-04] MEDS: SERTRALINE 25 MG GT SCH (08:29)
[2019-11-04] MEDS: THERAHONEY GEL 1.5 OZ TUBE TOP SCH ×2 (09:35→21:01)
[2019-11-04] MEDS: SODIUM HYPOCHLORITE 0.125% (QUARTER STRENGTH) 473 ML BOTTLE TP SCH ×2 (09:35→21:02)
[2019-11-04] MEDS: COD LIVER OIL/ZINC OXIDE OINT 113 GM TUBE TP SCH ×2 (09:35→21:02)
[2019-11-04] MEDS: HYDROGEN PEROXIDE 3% 118 ML BOTTLE TP SCH ×2 (09:38→21:39)
--- NOTE | 2019-11-04 13:05 | NUR ---
SEEN AND EXAMINED BY AMY Lorenzo AND WITH NEW ORDERS CARRIED OUT.
[2019-11-04 13:34] LABS: BASOPHILS # (AUTO) 0.1 K/uL (0.0-8.0); EOSINOPHILS # (AUTO) 0.5 K/uL (0.0-0.7); HEMOGLOBIN 12.1 g/dL (10.9-14.3); MONOCYTES # (AUTO) 0.8 K/uL (2.0-10.0); NEUTROPHILS # (AUTO) 4.9 K/uL (1.8-8.9); RED BLOOD CELL COUNT(AUTO) 4.22 MIL/uL (3.63-4.92)
[2019-11-04 13:40] LABS: BASOPHILS % (AUTO) 1.2 % (0.0-2.0); EOSINOPHILS % (AUTO) 5.6 % (0.0-7.0); HEMATOCRIT 38.3 % (31.2-41.9); MEAN CORPUSCULAR HEMOGLOBIN 28.7 uug (24.7-32.8); MEAN CORPUSCULAR HGB CONC 32 g/dL (32.3-35.6); MEAN CORPUSCULAR VOLUME 90.7 fL (75.5-95.3); MONOCYTES % (AUTO) 9.6 % (0.0-11.0); NEUTROPHILS % (AUTO) 59.6 % (38.5-71.5)
[2019-11-04 13:41] LABS: PLATELET COUNT (AUTO) 230 K/uL (179-408); WHITE BLOOD COUNT (AUTO) 8.2 K/uL (3.8-11.8)
[2019-11-04 13:43] LABS: CREATININE 0.9 mg/dL (0.6-1.3); POTASSIUM 3.5 mmol/L (3.5-5.1)
--- NOTE | 2019-11-04 15:02 | NUR ---
UROLOGIST DR. ABDOULAYE BUCHANAN WAS CALLED AND MESSAGE LEFT FOR UROLOGY CONSULT.
--- NOTE | 2019-11-04 18:30 | NUR ---
SEEN BY FERNANDO FU AND WITH RAINEO.
[2019-11-04 20:07] VITALS: BP 107/62
[2019-11-04] MEDS: MULTIVIT, IRON, MIN NO. 8, FA TABLET GT SCH (21:01)
[2019-11-04] MEDS: ASCORBIC ACID 500 MG TABLET GT SCH (21:01)
[2019-11-04] MEDS: SIMVASTATIN 10 MG TABLET GT SCH (21:01)
--- NOTE | 2019-11-04 23:18 | NUR ---
Seen by Dr. French with no new orders.
[2019-11-05] MEDS: BACLOFEN 10 MG TABLET GT SCH ×4 (00:03→18:07)
[2019-11-05] MEDS: IPRATROPIUM BROMIDE 0.5 MG/2.5 ML NEBU NEB SCH ×6 (02:42→23:12)
[2019-11-05] MEDS: ALBUTEROL SULFATE 2.5 MG/3 ML NEBU NEB SCH ×6 (02:42→23:12)
[2019-11-05] MEDS: ARGININE/GLUTAMINE/CALCIUM BMB 1 EACH POWD.PACK GT SCH ×2 (06:32→18:07)
[2019-11-05] MEDS: OMEPRAZOLE 20 MG CAPSULE.DR GT SCH (06:32)
[2019-11-05] MEDS: PROTEIN SUPPLEMENT (PROSTAT) 30 ML LIQUID GT SCH ×3 (06:33→21:51)
[2019-11-05] MEDS: JEVITY 1.2 1000 ML LIQUID GT PRN (06:43)
[2019-11-05 07:32] VITALS: BP 105/49
[2019-11-05] MEDS: ACIDOPHILUS/BULGARICUS CHEW TAB GT SCH ×2 (08:56→21:49)
[2019-11-05] MEDS: SERTRALINE 25 MG GT SCH (08:56)
[2019-11-05] MEDS: ACETAMINOPHEN 650 MG/20.3 ML LIQUID UDC GT SCH (08:56)
[2019-11-05] MEDS: COD LIVER OIL/ZINC OXIDE OINT 113 GM TUBE TP SCH ×2 (08:57→21:51)
[2019-11-05] MEDS: SODIUM HYPOCHLORITE 0.125% (QUARTER STRENGTH) 473 ML BOTTLE TP SCH ×2 (08:57→21:50)
[2019-11-05] MEDS: THERAHONEY GEL 1.5 OZ TUBE TOP SCH ×2 (08:57→21:50)
[2019-11-05] MEDS: HYDROGEN PEROXIDE 3% 118 ML BOTTLE TP SCH ×2 (09:07→21:14)
[2019-11-05 19:51] VITALS: BP 110/45
[2019-11-05] MEDS: MULTIVIT, IRON, MIN NO. 8, FA TABLET GT SCH (21:49)
[2019-11-05] MEDS: SIMVASTATIN 10 MG TABLET GT SCH (21:49)
[2019-11-05] MEDS: ASCORBIC ACID 500 MG TABLET GT SCH (21:49)
[2019-11-05] MEDS: TEMAZEPAM 7.5 MG CAPSULE GT PRN (22:00)
[2019-11-06] MEDS: BACLOFEN 10 MG TABLET GT SCH ×4 (00:25→17:31)
[2019-11-06] MEDS: ALBUTEROL SULFATE 2.5 MG/3 ML NEBU NEB SCH ×6 (03:06→23:25)
[2019-11-06] MEDS: IPRATROPIUM BROMIDE 0.5 MG/2.5 ML NEBU NEB SCH ×6 (03:06→23:25)
[2019-11-06] MEDS: PROTEIN SUPPLEMENT (PROSTAT) 30 ML LIQUID GT SCH ×3 (05:41→21:58)
[2019-11-06] MEDS: ARGININE/GLUTAMINE/CALCIUM BMB 1 EACH POWD.PACK GT SCH ×2 (05:41→17:31)
[2019-11-06] MEDS: OMEPRAZOLE 20 MG CAPSULE.DR GT SCH (05:41)
[2019-11-06 07:45] VITALS: BP 106/45
[2019-11-06] MEDS: THERAHONEY GEL 1.5 OZ TUBE TOP SCH ×2 (09:18→21:57)
[2019-11-06] MEDS: ACIDOPHILUS/BULGARICUS CHEW TAB GT SCH ×2 (09:18→21:57)
[2019-11-06] MEDS: ACETAMINOPHEN 650 MG/20.3 ML LIQUID UDC GT SCH (09:18)
[2019-11-06] MEDS: SODIUM HYPOCHLORITE 0.125% (QUARTER STRENGTH) 473 ML BOTTLE TP SCH ×2 (09:18→21:57)
[2019-11-06] MEDS: SERTRALINE 25 MG GT SCH (09:18)
[2019-11-06] MEDS: COD LIVER OIL/ZINC OXIDE OINT 113 GM TUBE TP SCH ×2 (09:19→21:58)
[2019-11-06] MEDS: HYDROGEN PEROXIDE 3% 118 ML BOTTLE TP SCH ×2 (09:23→21:02)
[2019-11-06 20:29] VITALS: BP 107/45
[2019-11-06] MEDS: MULTIVIT, IRON, MIN NO. 8, FA TABLET GT SCH (21:57)
[2019-11-06] MEDS: SIMVASTATIN 10 MG TABLET GT SCH (21:57)
[2019-11-06] MEDS: ASCORBIC ACID 500 MG TABLET GT SCH (21:57)
[2019-11-07] MEDS: BACLOFEN 10 MG TABLET GT SCH ×4 (00:48→17:33)
[2019-11-07] MEDS: IPRATROPIUM BROMIDE 0.5 MG/2.5 ML NEBU NEB SCH ×6 (02:54→23:09)
[2019-11-07] MEDS: ALBUTEROL SULFATE 2.5 MG/3 ML NEBU NEB SCH ×6 (02:54→23:09)
[2019-11-07] MEDS: ARGININE/GLUTAMINE/CALCIUM BMB 1 EACH POWD.PACK GT SCH ×2 (05:57→17:33)
[2019-11-07] MEDS: PROTEIN SUPPLEMENT (PROSTAT) 30 ML LIQUID GT SCH ×3 (05:57→21:44)
[2019-11-07] MEDS: OMEPRAZOLE 20 MG CAPSULE.DR GT SCH (05:57)
[2019-11-07 07:52] VITALS: BP 115/77
[2019-11-07] MEDS: THERAHONEY GEL 1.5 OZ TUBE TOP SCH ×2 (08:51→21:43)
[2019-11-07] MEDS: SERTRALINE 25 MG GT SCH (08:51)
[2019-11-07] MEDS: COD LIVER OIL/ZINC OXIDE OINT 113 GM TUBE TP SCH ×2 (08:51→21:44)
[2019-11-07] MEDS: ACIDOPHILUS/BULGARICUS CHEW TAB GT SCH ×2 (08:51→21:42)
[2019-11-07] MEDS: SODIUM HYPOCHLORITE 0.125% (QUARTER STRENGTH) 473 ML BOTTLE TP SCH ×2 (08:51→21:43)
[2019-11-07] MEDS: ACETAMINOPHEN 650 MG/20.3 ML LIQUID UDC GT SCH (08:51)
[2019-11-07] MEDS: HYDROGEN PEROXIDE 3% 118 ML BOTTLE TP SCH ×2 (09:50→21:19)
[2019-11-07 20:00] VITALS: BP 104/46
--- NOTE | 2019-11-07 20:00 | NUR ---
SEEN BY FERNANDO GAO AND WITH NNO.
[2019-11-07] MEDS: MULTIVIT, IRON, MIN NO. 8, FA TABLET GT SCH (21:42)
[2019-11-07] MEDS: ASCORBIC ACID 500 MG TABLET GT SCH (21:43)
[2019-11-07] MEDS: SIMVASTATIN 10 MG TABLET GT SCH (21:43)
[2019-11-08] MEDS: BACLOFEN 10 MG TABLET GT SCH ×5 (00:44→23:03)
[2019-11-08] MEDS: IPRATROPIUM BROMIDE 0.5 MG/2.5 ML NEBU NEB SCH ×6 (03:05→23:00)
[2019-11-08] MEDS: ALBUTEROL SULFATE 2.5 MG/3 ML NEBU NEB SCH ×6 (03:05→23:00)
[2019-11-08] MEDS: ARGININE/GLUTAMINE/CALCIUM BMB 1 EACH POWD.PACK GT SCH ×2 (06:13→17:38)
[2019-11-08] MEDS: PROTEIN SUPPLEMENT (PROSTAT) 30 ML LIQUID GT SCH ×3 (06:13→21:20)
[2019-11-08] MEDS: OMEPRAZOLE 20 MG CAPSULE.DR GT SCH (06:13)
[2019-11-08 07:51] VITALS: BP 104/48
[2019-11-08] MEDS: SODIUM HYPOCHLORITE 0.125% (QUARTER STRENGTH) 473 ML BOTTLE TP SCH ×2 (08:48→21:20)
[2019-11-08] MEDS: ACETAMINOPHEN 650 MG/20.3 ML LIQUID UDC GT SCH (08:48)
[2019-11-08] MEDS: ACIDOPHILUS/BULGARICUS CHEW TAB GT SCH ×2 (08:48→21:20)
[2019-11-08] MEDS: COD LIVER OIL/ZINC OXIDE OINT 113 GM TUBE TP SCH ×2 (08:48→21:20)
[2019-11-08] MEDS: THERAHONEY GEL 1.5 OZ TUBE TOP SCH ×2 (08:48→21:20)
[2019-11-08] MEDS: SERTRALINE 25 MG GT SCH (08:48)
[2019-11-08] MEDS: HYDROGEN PEROXIDE 3% 118 ML BOTTLE TP SCH ×2 (09:00→21:21)
[2019-11-08] MEDS: MULTIVIT, IRON, MIN NO. 8, FA TABLET GT SCH (21:20)
[2019-11-08] MEDS: ASCORBIC ACID 500 MG TABLET GT SCH (21:20)
[2019-11-08] MEDS: SIMVASTATIN 10 MG TABLET GT SCH (21:20)
[2019-11-08] MEDS: TEMAZEPAM 7.5 MG CAPSULE GT PRN (21:20)
[2019-11-08 22:23] VITALS: BP 98/48
[2019-11-09] MEDS: ALBUTEROL SULFATE 2.5 MG/3 ML NEBU NEB SCH ×7 (03:40→23:30)
[2019-11-09] MEDS: IPRATROPIUM BROMIDE 0.5 MG/2.5 ML NEBU NEB SCH ×7 (03:40→23:30)
[2019-11-09] MEDS: ARGININE/GLUTAMINE/CALCIUM BMB 1 EACH POWD.PACK GT SCH ×2 (05:38→17:51)
[2019-11-09] MEDS: OMEPRAZOLE 20 MG CAPSULE.DR GT SCH (05:38)
[2019-11-09] MEDS: BACLOFEN 10 MG TABLET GT SCH ×3 (05:38→17:51)
[2019-11-09] MEDS: PROTEIN SUPPLEMENT (PROSTAT) 30 ML LIQUID GT SCH ×3 (05:38→21:26)
[2019-11-09] MEDS: HYDROGEN PEROXIDE 3% 118 ML BOTTLE TP SCH ×2 (07:15→21:40)
[2019-11-09 07:51] VITALS: BP 120/68
[2019-11-09] MEDS: SERTRALINE 25 MG GT SCH (08:35)
[2019-11-09] MEDS: ACETAMINOPHEN 650 MG/20.3 ML LIQUID UDC GT SCH (08:35)
[2019-11-09] MEDS: THERAHONEY GEL 1.5 OZ TUBE TOP SCH ×2 (08:35→21:26)
[2019-11-09] MEDS: ACIDOPHILUS/BULGARICUS CHEW TAB GT SCH ×2 (08:35→21:26)
[2019-11-09] MEDS: SODIUM HYPOCHLORITE 0.125% (QUARTER STRENGTH) 473 ML BOTTLE TP SCH ×2 (08:36→21:26)
[2019-11-09] MEDS: COD LIVER OIL/ZINC OXIDE OINT 113 GM TUBE TP SCH ×2 (08:36→21:26)
[2019-11-09] MEDS: JEVITY 1.2 1000 ML LIQUID GT PRN (14:49)
[2019-11-09] MEDS: TEMAZEPAM 7.5 MG CAPSULE GT PRN (21:26)
[2019-11-09] MEDS: ASCORBIC ACID 500 MG TABLET GT SCH (21:26)
[2019-11-09] MEDS: SIMVASTATIN 10 MG TABLET GT SCH (21:26)
[2019-11-09] MEDS: MULTIVIT, IRON, MIN NO. 8, FA TABLET GT SCH (21:26)
[2019-11-09 22:32] VITALS: BP 114/48
[2019-11-10] MEDS: BACLOFEN 10 MG TABLET GT SCH ×5 (00:09→23:26)
[2019-11-10] MEDS: ALBUTEROL SULFATE 2.5 MG/3 ML NEBU NEB SCH ×6 (03:50→22:45)
[2019-11-10] MEDS: IPRATROPIUM BROMIDE 0.5 MG/2.5 ML NEBU NEB SCH ×6 (03:50→22:45)
[2019-11-10] MEDS: OMEPRAZOLE 20 MG CAPSULE.DR GT SCH (05:35)
[2019-11-10] MEDS: PROTEIN SUPPLEMENT (PROSTAT) 30 ML LIQUID GT SCH ×3 (05:35→21:17)
[2019-11-10] MEDS: ARGININE/GLUTAMINE/CALCIUM BMB 1 EACH POWD.PACK GT SCH ×2 (05:35→17:23)
[2019-11-10 08:03] VITALS: BP 108/48
[2019-11-10] MEDS: ACIDOPHILUS/BULGARICUS CHEW TAB GT SCH ×2 (08:29→21:17)
[2019-11-10] MEDS: ACETAMINOPHEN 650 MG/20.3 ML LIQUID UDC GT SCH (08:29)
[2019-11-10] MEDS: COD LIVER OIL/ZINC OXIDE OINT 113 GM TUBE TP SCH ×2 (08:29→21:17)
[2019-11-10] MEDS: SERTRALINE 25 MG GT SCH (08:29)
[2019-11-10] MEDS: THERAHONEY GEL 1.5 OZ TUBE TOP SCH ×2 (08:29→21:17)
[2019-11-10] MEDS: SODIUM HYPOCHLORITE 0.125% (QUARTER STRENGTH) 473 ML BOTTLE TP SCH ×2 (08:29→21:17)
[2019-11-10] MEDS: HYDROGEN PEROXIDE 3% 118 ML BOTTLE TP SCH ×2 (09:10→21:12)
[2019-11-10] MEDS: SIMVASTATIN 10 MG TABLET GT SCH (21:17)
[2019-11-10] MEDS: MULTIVIT, IRON, MIN NO. 8, FA TABLET GT SCH (21:17)
[2019-11-10] MEDS: ASCORBIC ACID 500 MG TABLET GT SCH (21:17)
[2019-11-10 22:35] VITALS: BP 113/48
[2019-11-11] MEDS: ALBUTEROL SULFATE 2.5 MG/3 ML NEBU NEB SCH ×6 (02:35→22:39)
[2019-11-11] MEDS: IPRATROPIUM BROMIDE 0.5 MG/2.5 ML NEBU NEB SCH ×6 (02:35→22:39)
[2019-11-11] MEDS: BACLOFEN 10 MG TABLET GT SCH ×3 (05:23→17:20)
[2019-11-11] MEDS: OMEPRAZOLE 20 MG CAPSULE.DR GT SCH (05:23)
[2019-11-11] MEDS: ARGININE/GLUTAMINE/CALCIUM BMB 1 EACH POWD.PACK GT SCH ×2 (05:23→17:20)
[2019-11-11] MEDS: PROTEIN SUPPLEMENT (PROSTAT) 30 ML LIQUID GT SCH ×3 (05:23→22:00)
[2019-11-11 07:31] VITALS: BP 124/45
[2019-11-11] MEDS: ACETAMINOPHEN 650 MG/20.3 ML LIQUID UDC GT SCH (08:20)
[2019-11-11] MEDS: SERTRALINE 25 MG GT SCH (08:21)
[2019-11-11] MEDS: ACIDOPHILUS/BULGARICUS CHEW TAB GT SCH ×2 (08:21→21:59)
[2019-11-11] MEDS: HYDROGEN PEROXIDE 3% 118 ML BOTTLE TP SCH ×2 (09:00→21:22)
[2019-11-11] MEDS: THERAHONEY GEL 1.5 OZ TUBE TOP SCH ×2 (09:02→21:59)
[2019-11-11] MEDS: SODIUM HYPOCHLORITE 0.125% (QUARTER STRENGTH) 473 ML BOTTLE TP SCH ×2 (09:03→22:00)
[2019-11-11] MEDS: COD LIVER OIL/ZINC OXIDE OINT 113 GM TUBE TP SCH ×2 (09:03→21:00)
--- NOTE | 2019-11-11 15:56 | NUR ---
Left message to Dr. Vernon, regarding urology consult.
[2019-11-11 19:53] VITALS: BP 100/49
--- NOTE | 2019-11-11 21:50 | NUR ---
SEEN BY WITH NEW ORDER.
[2019-11-11] MEDS: SIMVASTATIN 10 MG TABLET GT SCH (21:59)
[2019-11-11] MEDS: MULTIVIT, IRON, MIN NO. 8, FA TABLET GT SCH (21:59)
[2019-11-11] MEDS: ASCORBIC ACID 500 MG TABLET GT SCH (21:59)
[2019-11-11] MEDS: ACETAMINOPHEN 650 MG/20 ML UDC- SA PATIENTS-PAIN ONLY GT PRN (22:24)
[2019-11-12] MEDS: BACLOFEN 10 MG TABLET GT SCH ×4 (00:03→17:45)
[2019-11-12] MEDS: IPRATROPIUM BROMIDE 0.5 MG/2.5 ML NEBU NEB SCH ×6 (03:03→23:53)
[2019-11-12] MEDS: ALBUTEROL SULFATE 2.5 MG/3 ML NEBU NEB SCH ×6 (03:03→23:53)
[2019-11-12] MEDS: PROTEIN SUPPLEMENT (PROSTAT) 30 ML LIQUID GT SCH ×3 (06:22→21:58)
[2019-11-12] MEDS: ARGININE/GLUTAMINE/CALCIUM BMB 1 EACH POWD.PACK GT SCH ×2 (06:22→17:45)
[2019-11-12] MEDS: OMEPRAZOLE 20 MG CAPSULE.DR GT SCH (06:22)
[2019-11-12 08:03] VITALS: BP 127/58
[2019-11-12] MEDS: ACETAMINOPHEN 650 MG/20.3 ML LIQUID UDC GT SCH (08:32)
[2019-11-12] MEDS: ACIDOPHILUS/BULGARICUS CHEW TAB GT SCH ×2 (08:32→21:57)
[2019-11-12] MEDS: SERTRALINE 25 MG GT SCH (08:32)
[2019-11-12] MEDS: COD LIVER OIL/ZINC OXIDE OINT 113 GM TUBE TP SCH ×2 (09:10→21:57)
[2019-11-12] MEDS: THERAHONEY GEL 1.5 OZ TUBE TOP SCH ×2 (09:10→21:57)
[2019-11-12] MEDS: SODIUM HYPOCHLORITE 0.125% (QUARTER STRENGTH) 473 ML BOTTLE TP SCH ×2 (09:10→21:57)
[2019-11-12] MEDS: HYDROGEN PEROXIDE 3% 118 ML BOTTLE TP SCH ×2 (09:32→21:19)
--- NOTE | 2019-11-12 10:10 | NUR ---
SW received a letter today from [employer], requesting additional information from the eligibility services representative payee, regarding patient's finances. DOROTHY emailed accoutant Fabricio Leone, and informed him of this letter that that SW will be forwarding this letter to him via interoffice mail. DOROTHY put the letter in the interoffice mail, addressed to Fabricio Leone. DOROTHY also received an email back from Fabricio Leone stating that he will follow-up with the requested information once he receives the letter.
[2019-11-12] MEDS: JEVITY 1.2 1000 ML LIQUID GT PRN (17:51)
[2019-11-12 19:53] VITALS: BP 97/45
[2019-11-12] MEDS: MULTIVIT, IRON, MIN NO. 8, FA TABLET GT SCH (21:57)
[2019-11-12] MEDS: SIMVASTATIN 10 MG TABLET GT SCH (21:57)
[2019-11-12] MEDS: ASCORBIC ACID 500 MG TABLET GT SCH (21:57)
[2019-11-12] MEDS: ESTROGENS,CONJU VAGINAL CREAM 42.5 GM TUBE VG SCH (21:58)
[2019-11-12] MEDS: TEMAZEPAM 7.5 MG CAPSULE GT PRN (21:59)
[2019-11-13] MEDS: ALBUTEROL SULFATE 2.5 MG/3 ML NEBU NEB SCH ×6 (02:56→23:12)
[2019-11-13] MEDS: IPRATROPIUM BROMIDE 0.5 MG/2.5 ML NEBU NEB SCH ×6 (02:56→23:12)
[2019-11-13] MEDS: ARGININE/GLUTAMINE/CALCIUM BMB 1 EACH POWD.PACK GT SCH ×2 (05:43→17:11)
[2019-11-13] MEDS: BACLOFEN 10 MG TABLET GT SCH ×4 (05:44→17:15)
[2019-11-13] MEDS: PROTEIN SUPPLEMENT (PROSTAT) 30 ML LIQUID GT SCH ×3 (05:44→22:14)
[2019-11-13] MEDS: OMEPRAZOLE 20 MG CAPSULE.DR GT SCH (05:44)
[2019-11-13 07:57] VITALS: BP 98/45
[2019-11-13] MEDS: ACETAMINOPHEN 650 MG/20.3 ML LIQUID UDC GT SCH (08:29)
[2019-11-13] MEDS: SERTRALINE 25 MG GT SCH (08:29)
[2019-11-13] MEDS: ACIDOPHILUS/BULGARICUS CHEW TAB GT SCH ×2 (08:29→21:00)
[2019-11-13] MEDS: THERAHONEY GEL 1.5 OZ TUBE TOP SCH ×2 (09:01→21:00)
[2019-11-13] MEDS: COD LIVER OIL/ZINC OXIDE OINT 113 GM TUBE TP SCH ×2 (09:01→21:00)
[2019-11-13] MEDS: SODIUM HYPOCHLORITE 0.125% (QUARTER STRENGTH) 473 ML BOTTLE TP SCH ×2 (09:01→21:00)
[2019-11-13] MEDS: HYDROGEN PEROXIDE 3% 118 ML BOTTLE TP SCH ×2 (09:06→21:18)
[2019-11-13] MEDS: JEVITY 1.2 1000 ML LIQUID GT PRN (17:27)
[2019-11-13 19:54] VITALS: BP 130/67
[2019-11-13] MEDS: SIMVASTATIN 10 MG TABLET GT SCH (21:00)
[2019-11-13] MEDS: ESTROGENS,CONJU VAGINAL CREAM 42.5 GM TUBE VG SCH (21:00)
[2019-11-13] MEDS: MULTIVIT, IRON, MIN NO. 8, FA TABLET GT SCH (21:00)
[2019-11-13] MEDS: ASCORBIC ACID 500 MG TABLET GT SCH (21:00)
[2019-11-14] MEDS: BACLOFEN 10 MG TABLET GT SCH ×4 (00:17→17:49)
[2019-11-14] MEDS: ALBUTEROL SULFATE 2.5 MG/3 ML NEBU NEB SCH ×6 (03:05→22:41)
[2019-11-14] MEDS: IPRATROPIUM BROMIDE 0.5 MG/2.5 ML NEBU NEB SCH ×6 (03:05→22:41)
[2019-11-14] MEDS: ARGININE/GLUTAMINE/CALCIUM BMB 1 EACH POWD.PACK GT SCH ×2 (05:38→17:49)
[2019-11-14] MEDS: OMEPRAZOLE 20 MG CAPSULE.DR GT SCH (05:42)
[2019-11-14] MEDS: PROTEIN SUPPLEMENT (PROSTAT) 30 ML LIQUID GT SCH ×3 (05:42→21:49)
[2019-11-14 07:48] VITALS: BP 98/42
[2019-11-14] MEDS: ACIDOPHILUS/BULGARICUS CHEW TAB GT SCH ×2 (08:33→21:48)
[2019-11-14] MEDS: SERTRALINE 25 MG GT SCH (08:33)
[2019-11-14] MEDS: COD LIVER OIL/ZINC OXIDE OINT 113 GM TUBE TP SCH ×2 (08:34→21:49)
[2019-11-14] MEDS: SODIUM HYPOCHLORITE 0.125% (QUARTER STRENGTH) 473 ML BOTTLE TP SCH ×2 (08:34→21:49)
[2019-11-14] MEDS: THERAHONEY GEL 1.5 OZ TUBE TOP SCH ×2 (08:34→21:49)
[2019-11-14] MEDS: ACETAMINOPHEN 650 MG/20.3 ML LIQUID UDC GT SCH (09:13)
[2019-11-14] MEDS: HYDROGEN PEROXIDE 3% 118 ML BOTTLE TP SCH ×2 (09:50→21:30)
--- NOTE | 2019-11-14 14:30 | NUR ---
DR. ABDOULAYE BUCHANAN (UROLOGIST ) WAS CALLED AND AWARE OF RESULTS OF THE CT SCAN OF ABDOMEN AND PELVIS WITHOUT CONTRAST AND WITH NNO .(SEE PROGRESS NOTES) HE STATED THAT SHE IS NOT CANDIDATE FOR PROCEDURES TO TREAT KIDNEY STONES .
--- NOTE | 2019-11-14 14:34 | NUR ---
MESSAGE LEFT TO RAKEL GARCIA DUE TO NOT ANSWERING PHONE CALLS.
[2019-11-14] MEDS: JEVITY 1.2 1000 ML LIQUID GT PRN (18:00)
[2019-11-14 20:00] VITALS: BP 113/47
[2019-11-14] MEDS: ASCORBIC ACID 500 MG TABLET GT SCH (21:48)
[2019-11-14] MEDS: MULTIVIT, IRON, MIN NO. 8, FA TABLET GT SCH (21:48)
[2019-11-14] MEDS: ESTROGENS,CONJU VAGINAL CREAM 42.5 GM TUBE VG SCH (21:49)
[2019-11-14] MEDS: SIMVASTATIN 10 MG TABLET GT SCH (21:49)
[2019-11-14] MEDS: TEMAZEPAM 7.5 MG CAPSULE GT PRN (21:57)
[2019-11-15] MEDS: BACLOFEN 10 MG TABLET GT SCH ×4 (00:17→17:16)
[2019-11-15] MEDS: IPRATROPIUM BROMIDE 0.5 MG/2.5 ML NEBU NEB SCH ×6 (03:32→23:11)
[2019-11-15] MEDS: ALBUTEROL SULFATE 2.5 MG/3 ML NEBU NEB SCH ×6 (03:32→23:11)
[2019-11-15] MEDS: OMEPRAZOLE 20 MG CAPSULE.DR GT SCH (05:25)
[2019-11-15] MEDS: ARGININE/GLUTAMINE/CALCIUM BMB 1 EACH POWD.PACK GT SCH ×2 (05:25→17:16)
[2019-11-15] MEDS: PROTEIN SUPPLEMENT (PROSTAT) 30 ML LIQUID GT SCH ×3 (05:26→21:38)
[2019-11-15 07:46] VITALS: BP 98/54
[2019-11-15] MEDS: ACETAMINOPHEN 650 MG/20.3 ML LIQUID UDC GT SCH (08:55)
[2019-11-15] MEDS: THERAHONEY GEL 1.5 OZ TUBE TOP SCH ×2 (08:55→21:38)
[2019-11-15] MEDS: SODIUM HYPOCHLORITE 0.125% (QUARTER STRENGTH) 473 ML BOTTLE TP SCH ×2 (08:55→21:38)
[2019-11-15] MEDS: SERTRALINE 25 MG GT SCH (08:55)
[2019-11-15] MEDS: ACIDOPHILUS/BULGARICUS CHEW TAB GT SCH ×2 (08:55→21:36)
[2019-11-15] MEDS: COD LIVER OIL/ZINC OXIDE OINT 113 GM TUBE TP SCH ×2 (08:56→21:38)
[2019-11-15] MEDS: HYDROGEN PEROXIDE 3% 118 ML BOTTLE TP SCH ×2 (09:00→21:35)
--- NOTE | 2019-11-15 16:05 | NUR ---
DR. TURCIOS WAS CALLED D/T TEMP. AT THIS TIME 102.9F.
[2019-11-15] MEDS: ACETAMINOPHEN 650 MG/20 ML UDC- SA PATIENTS-FEVER ONLY GT PRN (16:22)
--- NOTE | 2019-11-15 16:30 | NUR ---
DR. CALDWELL WAS PAGED D/T FEVER.
--- NOTE | 2019-11-15 17:00 | NUR ---
DR. TURCIOS CALLED BACK AND WITH NEW ORDERS CARRIED OUT ,ALSO DR. CALDWELL CALLED BACK AND AWARE OF PT'S CONDITION AND IN AGREEMENT WITH DR. TURCIOS'S ORDERS AND NNO AT THIS TIME.
[2019-11-15 18:34] LABS: *BILIRUBIN,URIN NEGATIVE (NEGATIVE); *BLOOD, URINE 2+ (NEGATIVE); *COLOR,URINE YELLOW (YELLOW); *KETONES,URINE NEGATIVE (NEGATIVE); *UROBILINOGEN,URINE 0.2 E.U./dl (NORMAL); LEUKOCYTE ESTERASE ,URINE 3+ (NEGATIVE); NITRITE, URINE NEGATIVE (NEGATIVE); UGLUCOSE NEGATIVE (NEGATIVE)
[2019-11-15 20:07] VITALS: BP 112/40
[2019-11-15 20:24] LABS: *CLARITY,URINE TURBID (CLEAR)
[2019-11-15 20:27] LABS: BACTERIA,URINE MANY /HPF (NONE SEEN); MUCUS,URINE MODERATE /LPF (0-FEW); RBC,URINE 20-50 /HPF (0-3); SQUAMOUS EPITHELIAL CELL,UR FEW /HPF (NONE SEEN); WBC,URINE TNTC /HPF (0-3); YEAST,URINE FEW /HPF (NONE SEEN)
[2019-11-15] MEDS: SIMVASTATIN 10 MG TABLET GT SCH (21:36)
[2019-11-15] MEDS: ASCORBIC ACID 500 MG TABLET GT SCH (21:36)
[2019-11-15] MEDS: MULTIVIT, IRON, MIN NO. 8, FA TABLET GT SCH (21:36)
[2019-11-15] MEDS: ESTROGENS,CONJU VAGINAL CREAM 42.5 GM TUBE VG SCH (21:38)
[2019-11-16] MEDS: BACLOFEN 10 MG TABLET GT SCH ×5 (00:30→23:41)
[2019-11-16] MEDS: IPRATROPIUM BROMIDE 0.5 MG/2.5 ML NEBU NEB SCH ×6 (03:17→23:14)
[2019-11-16] MEDS: ALBUTEROL SULFATE 2.5 MG/3 ML NEBU NEB SCH ×6 (03:17→23:14)
[2019-11-16 06:42] LABS: BASOPHILS # (AUTO) 0.1 K/uL (0.0-8.0); BASOPHILS % (AUTO) 0.6 % (0.0-2.0); EOSINOPHILS # (AUTO) 0.2 K/uL (0.0-0.7); EOSINOPHILS % (AUTO) 1.7 % (0.0-7.0); HEMATOCRIT 36.8 % (31.2-41.9); HEMOGLOBIN 11.8 g/dL (10.9-14.3); LYMPHOCYTES # (AUTO) 2.3 K/uL (20.0-40.0); LYMPHOCYTES % (AUTO) 19.9 % (20.5-51.5); MEAN CORPUSCULAR HEMOGLOBIN 28.9 uug (24.7-32.8); MEAN CORPUSCULAR HGB CONC 32 g/dL (32.3-35.6); MEAN CORPUSCULAR VOLUME 89.6 fL (75.5-95.3); MONOCYTES # (AUTO) 1.3 K/uL (2.0-10.0); MONOCYTES % (AUTO) 11.6 % (0.0-11.0); NEUTROPHILS # (AUTO) 7.6 K/uL (1.8-8.9); NEUTROPHILS % (AUTO) 66.2 % (38.5-71.5); PLATELET COUNT (AUTO) 253 K/uL (179-408)
[2019-11-16] MEDS: ARGININE/GLUTAMINE/CALCIUM BMB 1 EACH POWD.PACK GT SCH ×2 (06:54→17:34)
[2019-11-16] MEDS: OMEPRAZOLE 20 MG CAPSULE.DR GT SCH (06:54)
[2019-11-16] MEDS: PROTEIN SUPPLEMENT (PROSTAT) 30 ML LIQUID GT SCH ×3 (06:55→21:01)
--- NOTE | 2019-11-16 07:02 | NUR ---
Patient is afebrile, temperature is 98.1*F, alert and oriented, no signs of any distress, gt feeding tolerating well, no residuals noted, no N/V , baumann catheter is draining well to yellow urine, good sukumar care rendered, kept clean and comfortable.
[2019-11-16 07:08] LABS: WHITE BLOOD COUNT (AUTO) 11.5 K/uL (3.8-11.8)
[2019-11-16 07:42] VITALS: BP 97/42
[2019-11-16 08:15] LABS: BAND % (MANUAL) 3 % (0-10); LYMPHOCYTES % (MANUAL) 20 % (20-40); MONOCYTES % (MANUAL) 9 % (2-10); MYELOCYTES % 1 % (0-0); NEUTROPHILS % (MANUAL) 67 % (42-75)
[2019-11-16] MEDS: ACETAMINOPHEN 650 MG/20.3 ML LIQUID UDC GT SCH (08:51)
[2019-11-16] MEDS: SODIUM HYPOCHLORITE 0.125% (QUARTER STRENGTH) 473 ML BOTTLE TP SCH ×2 (08:52→21:00)
[2019-11-16] MEDS: ACIDOPHILUS/BULGARICUS CHEW TAB GT SCH ×2 (08:52→20:59)
[2019-11-16] MEDS: SERTRALINE 25 MG GT SCH (08:52)
[2019-11-16] MEDS: THERAHONEY GEL 1.5 OZ TUBE TOP SCH ×2 (08:52→21:00)
[2019-11-16] MEDS: COD LIVER OIL/ZINC OXIDE OINT 113 GM TUBE TP SCH ×2 (08:53→21:00)
[2019-11-16] MEDS: HYDROGEN PEROXIDE 3% 118 ML BOTTLE TP SCH ×2 (09:20→21:05)
--- NOTE | 2019-11-16 10:40 | NUR ---
SEEN AND EXAMINED BY DR. CALDWELL AND WITH NEW ORDERS CARRIED OUT.
[2019-11-16] MEDS: JEVITY 1.2 1000 ML LIQUID GT PRN (17:36)
[2019-11-16 20:00] VITALS: BP 110/58
[2019-11-16] MEDS: MULTIVIT, IRON, MIN NO. 8, FA TABLET GT SCH (20:59)
[2019-11-16] MEDS: ASCORBIC ACID 500 MG TABLET GT SCH (20:59)
[2019-11-16] MEDS: SIMVASTATIN 10 MG TABLET GT SCH (21:00)
[2019-11-16] MEDS: ESTROGENS,CONJU VAGINAL CREAM 42.5 GM TUBE VG SCH (21:02)
--- NOTE | 2019-11-16 22:45 | NUR ---
Afebrile, no respiratory distress noted, gt feeding tolerating well, no N/V noted, abdomen concave and soft to touch, denies any pain or discomfort, will continue monitor.
[2019-11-17] MEDS: IPRATROPIUM BROMIDE 0.5 MG/2.5 ML NEBU NEB SCH ×6 (03:16→23:28)
[2019-11-17] MEDS: ALBUTEROL SULFATE 2.5 MG/3 ML NEBU NEB SCH ×6 (03:16→23:28)
[2019-11-17] MEDS: PROTEIN SUPPLEMENT (PROSTAT) 30 ML LIQUID GT SCH ×3 (05:17→21:56)
[2019-11-17] MEDS: BACLOFEN 10 MG TABLET GT SCH ×3 (05:17→18:01)
[2019-11-17] MEDS: OMEPRAZOLE 20 MG CAPSULE.DR GT SCH (05:17)
[2019-11-17] MEDS: ARGININE/GLUTAMINE/CALCIUM BMB 1 EACH POWD.PACK GT SCH ×2 (05:17→18:01)
[2019-11-17 08:57] VITALS: BP 101/58
[2019-11-17] MEDS: SERTRALINE 25 MG GT SCH (09:02)
[2019-11-17] MEDS: ACETAMINOPHEN 650 MG/20.3 ML LIQUID UDC GT SCH (09:02)
[2019-11-17] MEDS: THERAHONEY GEL 1.5 OZ TUBE TOP SCH ×2 (09:02→21:55)
[2019-11-17] MEDS: ACIDOPHILUS/BULGARICUS CHEW TAB GT SCH ×2 (09:02→21:55)
[2019-11-17] MEDS: COD LIVER OIL/ZINC OXIDE OINT 113 GM TUBE TP SCH ×2 (09:03→21:56)
[2019-11-17] MEDS: SODIUM HYPOCHLORITE 0.125% (QUARTER STRENGTH) 473 ML BOTTLE TP SCH ×2 (09:03→21:56)
[2019-11-17] MEDS: HYDROGEN PEROXIDE 3% 118 ML BOTTLE TP SCH ×2 (09:50→21:40)
[2019-11-17 20:30] VITALS: BP 113/67
[2019-11-17] MEDS: ESTROGENS,CONJU VAGINAL CREAM 42.5 GM TUBE VG SCH (21:00)
[2019-11-17] MEDS: ASCORBIC ACID 500 MG TABLET GT SCH (21:55)
[2019-11-17] MEDS: MULTIVIT, IRON, MIN NO. 8, FA TABLET GT SCH (21:55)
[2019-11-17] MEDS: SIMVASTATIN 10 MG TABLET GT SCH (21:55)
[2019-11-18] MEDS: JEVITY 1.2 1000 ML LIQUID GT PRN ×2 (00:01→22:04)
--- NOTE | 2019-11-18 00:38 | NUR ---
Sleeping, afebrile, no signs of respiratory distress noted, gt feeding tolerated, baumann catheter draining well to yellow urine output, good sukumar care rendered, kept clean and comfortable.
[2019-11-18] MEDS: ALBUTEROL SULFATE 2.5 MG/3 ML NEBU NEB SCH ×6 (04:02→23:15)
[2019-11-18] MEDS: IPRATROPIUM BROMIDE 0.5 MG/2.5 ML NEBU NEB SCH ×6 (04:02→23:15)
[2019-11-18] MEDS: BACLOFEN 10 MG TABLET GT SCH ×5 (05:31→23:13)
[2019-11-18] MEDS: ARGININE/GLUTAMINE/CALCIUM BMB 1 EACH POWD.PACK GT SCH ×2 (05:31→17:57)
[2019-11-18] MEDS: PROTEIN SUPPLEMENT (PROSTAT) 30 ML LIQUID GT SCH ×3 (05:31→21:59)
[2019-11-18] MEDS: OMEPRAZOLE 20 MG CAPSULE.DR GT SCH (05:31)
[2019-11-18 07:40] LABS: BASOPHILS % (AUTO) 0.6 % (0.0-2.0); EOSINOPHILS # (AUTO) 0.3 K/uL (0.0-0.7); EOSINOPHILS % (AUTO) 4.1 % (0.0-7.0); HEMOGLOBIN 11.6 g/dL (10.9-14.3); LYMPHOCYTES # (AUTO) 1.4 K/uL (20.0-40.0); LYMPHOCYTES % (AUTO) 18.2 % (20.5-51.5); MEAN CORPUSCULAR HEMOGLOBIN 28.6 uug (24.7-32.8); MEAN CORPUSCULAR HGB CONC 32 g/dL (32.3-35.6); MEAN CORPUSCULAR VOLUME 88.9 fL (75.5-95.3); MONOCYTES # (AUTO) 0.7 K/uL (2.0-10.0); MONOCYTES % (AUTO) 9.3 % (0.0-11.0); NEUTROPHILS # (AUTO) 5.3 K/uL (1.8-8.9); NEUTROPHILS % (AUTO) 67.8 % (38.5-71.5); PLATELET COUNT (AUTO) 253 K/uL (179-408); RED BLOOD CELL COUNT(AUTO) 4.04 MIL/uL (3.63-4.92); WHITE BLOOD COUNT (AUTO) 7.8 K/uL (3.8-11.8)
[2019-11-18 07:49] VITALS: BP 111/50
[2019-11-18 07:58] LABS: CREATININE 0.9 mg/dL (0.6-1.3); MAGNESIUM 2.2 mg/dL (1.8-2.4); PHOSPHOROUS 3.5 mg/dL (2.5-4.9); POTASSIUM 3.8 mmol/L (3.5-5.1)
[2019-11-18] MEDS: THERAHONEY GEL 1.5 OZ TUBE TOP SCH ×2 (08:37→21:59)
[2019-11-18] MEDS: SODIUM HYPOCHLORITE 0.125% (QUARTER STRENGTH) 473 ML BOTTLE TP SCH ×2 (08:37→21:59)
[2019-11-18] MEDS: SERTRALINE 25 MG GT SCH (08:37)
[2019-11-18] MEDS: ACIDOPHILUS/BULGARICUS CHEW TAB GT SCH ×2 (08:37→21:58)
[2019-11-18] MEDS: ACETAMINOPHEN 650 MG/20.3 ML LIQUID UDC GT SCH (08:37)
[2019-11-18] MEDS: COD LIVER OIL/ZINC OXIDE OINT 113 GM TUBE TP SCH ×2 (08:38→21:59)
[2019-11-18] MEDS: HYDROGEN PEROXIDE 3% 118 ML BOTTLE TP SCH ×2 (09:50→21:38)
--- NOTE | 2019-11-18 17:49 | NUR ---
SEEN BY AMY Lorenzo AND DR. COLIN AND WITH NNO.
[2019-11-18 20:40] VITALS: BP 107/45
[2019-11-18] MEDS: SIMVASTATIN 10 MG TABLET GT SCH (21:58)
[2019-11-18] MEDS: MULTIVIT, IRON, MIN NO. 8, FA TABLET GT SCH (21:58)
[2019-11-18] MEDS: ASCORBIC ACID 500 MG TABLET GT SCH (21:58)
[2019-11-18] MEDS: ESTROGENS,CONJU VAGINAL CREAM 42.5 GM TUBE VG SCH (21:59)
[2019-11-19] MEDS: ALBUTEROL SULFATE 2.5 MG/3 ML NEBU NEB SCH ×6 (03:55→22:30)
[2019-11-19] MEDS: IPRATROPIUM BROMIDE 0.5 MG/2.5 ML NEBU NEB SCH ×6 (03:55→22:30)
[2019-11-19] MEDS: OMEPRAZOLE 20 MG CAPSULE.DR GT SCH (05:34)
[2019-11-19] MEDS: PROTEIN SUPPLEMENT (PROSTAT) 30 ML LIQUID GT SCH ×3 (05:34→21:35)
[2019-11-19] MEDS: BACLOFEN 10 MG TABLET GT SCH ×3 (05:34→17:02)
[2019-11-19] MEDS: ARGININE/GLUTAMINE/CALCIUM BMB 1 EACH POWD.PACK GT SCH ×2 (05:34→17:02)
[2019-11-19 07:53] VITALS: BP 109/48
[2019-11-19] MEDS: HYDROGEN PEROXIDE 3% 118 ML BOTTLE TP SCH ×2 (09:00→21:11)
[2019-11-19] MEDS: ACETAMINOPHEN 650 MG/20.3 ML LIQUID UDC GT SCH (09:03)
[2019-11-19] MEDS: SERTRALINE 25 MG GT SCH (09:03)
[2019-11-19] MEDS: ACIDOPHILUS/BULGARICUS CHEW TAB GT SCH ×2 (09:03→21:34)
[2019-11-19] MEDS: COD LIVER OIL/ZINC OXIDE OINT 113 GM TUBE TP SCH ×2 (09:04→21:34)
[2019-11-19] MEDS: THERAHONEY GEL 1.5 OZ TUBE TOP SCH ×2 (09:04→21:34)
[2019-11-19] MEDS: SODIUM HYPOCHLORITE 0.125% (QUARTER STRENGTH) 473 ML BOTTLE TP SCH ×2 (09:04→21:34)
--- NOTE | 2019-11-19 15:32 | NUR ---
DOROTHY informed patient's daughter Ludmila via email that the next IDT meeting for the patient is scheduled for 11/26/2019 at 11am. DOROTHY asked Ludmila to let this SW know if Ludmila would like to participate in the meeting via speaker phone. DOROTHY waiting to hear back from Ludmila.
[2019-11-19 20:15] VITALS: BP 108/60
[2019-11-19] MEDS: MULTIVIT, IRON, MIN NO. 8, FA TABLET GT SCH (21:34)
[2019-11-19] MEDS: ESTROGENS,CONJU VAGINAL CREAM 42.5 GM TUBE VG SCH (21:34)
[2019-11-19] MEDS: SIMVASTATIN 10 MG TABLET GT SCH (21:34)
[2019-11-19] MEDS: ASCORBIC ACID 500 MG TABLET GT SCH (21:34)
[2019-11-20] MEDS: BACLOFEN 10 MG TABLET GT SCH ×5 (00:51→23:13)
[2019-11-20] MEDS: IPRATROPIUM BROMIDE 0.5 MG/2.5 ML NEBU NEB SCH ×6 (02:38→23:05)
[2019-11-20] MEDS: ALBUTEROL SULFATE 2.5 MG/3 ML NEBU NEB SCH ×6 (02:38→23:05)
[2019-11-20] MEDS: ARGININE/GLUTAMINE/CALCIUM BMB 1 EACH POWD.PACK GT SCH ×2 (06:02→18:37)
[2019-11-20] MEDS: OMEPRAZOLE 20 MG CAPSULE.DR GT SCH (06:03)
[2019-11-20] MEDS: PROTEIN SUPPLEMENT (PROSTAT) 30 ML LIQUID GT SCH ×3 (06:03→21:19)
[2019-11-20] MEDS: JEVITY 1.2 1000 ML LIQUID GT PRN (06:54)
[2019-11-20] MEDS: HYDROGEN PEROXIDE 3% 118 ML BOTTLE TP SCH ×2 (07:27→21:03)
[2019-11-20 07:36] VITALS: BP 117/57
[2019-11-20] MEDS: ACETAMINOPHEN 650 MG/20.3 ML LIQUID UDC GT SCH (08:30)
[2019-11-20] MEDS: ACIDOPHILUS/BULGARICUS CHEW TAB GT SCH ×2 (09:31→21:18)
[2019-11-20] MEDS: THERAHONEY GEL 1.5 OZ TUBE TOP SCH ×2 (09:32→21:18)
[2019-11-20] MEDS: COD LIVER OIL/ZINC OXIDE OINT 113 GM TUBE TP SCH ×2 (09:32→21:19)
[2019-11-20] MEDS: SODIUM HYPOCHLORITE 0.125% (QUARTER STRENGTH) 473 ML BOTTLE TP SCH ×2 (09:32→21:19)
[2019-11-20] MEDS: SERTRALINE 25 MG GT SCH (09:32)
[2019-11-20 20:13] VITALS: BP 115/53
[2019-11-20] MEDS: ASCORBIC ACID 500 MG TABLET GT SCH (21:18)
[2019-11-20] MEDS: SIMVASTATIN 10 MG TABLET GT SCH (21:18)
[2019-11-20] MEDS: MULTIVIT, IRON, MIN NO. 8, FA TABLET GT SCH (21:18)
[2019-11-20] MEDS: ESTROGENS,CONJU VAGINAL CREAM 42.5 GM TUBE VG SCH (21:23)
[2019-11-21] MEDS: ALBUTEROL SULFATE 2.5 MG/3 ML NEBU NEB SCH ×6 (03:05→23:00)
[2019-11-21] MEDS: IPRATROPIUM BROMIDE 0.5 MG/2.5 ML NEBU NEB SCH ×6 (03:05→23:00)
[2019-11-21] MEDS: PROTEIN SUPPLEMENT (PROSTAT) 30 ML LIQUID GT SCH ×3 (06:38→22:27)
[2019-11-21] MEDS: ARGININE/GLUTAMINE/CALCIUM BMB 1 EACH POWD.PACK GT SCH ×2 (06:38→17:00)
[2019-11-21] MEDS: OMEPRAZOLE 20 MG CAPSULE.DR GT SCH (06:38)
[2019-11-21] MEDS: BACLOFEN 10 MG TABLET GT SCH ×3 (06:38→17:00)
[2019-11-21 07:26] VITALS: BP 105/55
[2019-11-21] MEDS: ACETAMINOPHEN 650 MG/20.3 ML LIQUID UDC GT SCH (08:35)
[2019-11-21] MEDS: ACIDOPHILUS/BULGARICUS CHEW TAB GT SCH ×2 (08:35→21:00)
[2019-11-21] MEDS: SERTRALINE 25 MG GT SCH (08:36)
[2019-11-21] MEDS: SODIUM HYPOCHLORITE 0.125% (QUARTER STRENGTH) 473 ML BOTTLE TP SCH ×2 (08:37→21:00)
[2019-11-21] MEDS: COD LIVER OIL/ZINC OXIDE OINT 113 GM TUBE TP SCH ×2 (08:37→21:00)
[2019-11-21] MEDS: THERAHONEY GEL 1.5 OZ TUBE TOP SCH ×2 (08:37→21:00)
[2019-11-21] MEDS: HYDROGEN PEROXIDE 3% 118 ML BOTTLE TP SCH ×2 (09:50→21:57)
--- NOTE | 2019-11-21 10:52 | NUR ---
DOROTHY informed patient's daughter Ludmila, via email, that patient received a stimulus check from the government, directly deposited into her trust account with the hospital. DOROTHY also informed Ludmila that the money can by used to purchase any personal items or services for the patient that would be of support for her ongoing care at the subacute facility.
[2019-11-21 20:02] VITALS: BP 112/52
[2019-11-21] MEDS: SIMVASTATIN 10 MG TABLET GT SCH (21:00)
[2019-11-21] MEDS: ASCORBIC ACID 500 MG TABLET GT SCH (21:00)
[2019-11-21] MEDS: ESTROGENS,CONJU VAGINAL CREAM 42.5 GM TUBE VG SCH (21:00)
[2019-11-21] MEDS: MULTIVIT, IRON, MIN NO. 8, FA TABLET GT SCH (21:00)
[2019-11-21] MEDS: TEMAZEPAM 7.5 MG CAPSULE GT PRN (22:31)
[2019-11-22] MEDS: BACLOFEN 10 MG TABLET GT SCH ×4 (00:42→17:21)
[2019-11-22] MEDS: IPRATROPIUM BROMIDE 0.5 MG/2.5 ML NEBU NEB SCH ×6 (03:03→23:13)
[2019-11-22] MEDS: ALBUTEROL SULFATE 2.5 MG/3 ML NEBU NEB SCH ×6 (03:04→23:13)
[2019-11-22] MEDS: JEVITY 1.2 1000 ML LIQUID GT PRN (03:47)
[2019-11-22] MEDS: OMEPRAZOLE 20 MG CAPSULE.DR GT SCH (06:22)
[2019-11-22] MEDS: ARGININE/GLUTAMINE/CALCIUM BMB 1 EACH POWD.PACK GT SCH ×2 (06:22→17:21)
[2019-11-22] MEDS: PROTEIN SUPPLEMENT (PROSTAT) 30 ML LIQUID GT SCH ×3 (06:22→22:22)
[2019-11-22 07:41] VITALS: BP 106/57
[2019-11-22] MEDS: SERTRALINE 25 MG GT SCH (09:24)
[2019-11-22] MEDS: ACIDOPHILUS/BULGARICUS CHEW TAB GT SCH ×2 (09:24→21:00)
[2019-11-22] MEDS: ACETAMINOPHEN 650 MG/20.3 ML LIQUID UDC GT SCH (09:24)
[2019-11-22] MEDS: THERAHONEY GEL 1.5 OZ TUBE TOP SCH ×2 (09:24→21:00)
[2019-11-22] MEDS: SODIUM HYPOCHLORITE 0.125% (QUARTER STRENGTH) 473 ML BOTTLE TP SCH ×2 (09:25→21:00)
[2019-11-22] MEDS: COD LIVER OIL/ZINC OXIDE OINT 113 GM TUBE TP SCH ×2 (09:25→21:00)
[2019-11-22] MEDS: HYDROGEN PEROXIDE 3% 118 ML BOTTLE TP SCH ×2 (09:52→21:10)
[2019-11-22] MEDS: MULTIVIT, IRON, MIN NO. 8, FA TABLET GT SCH (21:00)
[2019-11-22] MEDS: SIMVASTATIN 10 MG TABLET GT SCH (21:00)
[2019-11-22] MEDS: ESTROGENS,CONJU VAGINAL CREAM 42.5 GM TUBE VG SCH (21:00)
[2019-11-22] MEDS: ASCORBIC ACID 500 MG TABLET GT SCH (21:00)
[2019-11-22 22:12] VITALS: BP 111/45
[2019-11-23] MEDS: IPRATROPIUM BROMIDE 0.5 MG/2.5 ML NEBU NEB SCH ×6 (03:00→23:25)
[2019-11-23] MEDS: ALBUTEROL SULFATE 2.5 MG/3 ML NEBU NEB SCH ×6 (03:01→23:25)
[2019-11-23] MEDS: PROTEIN SUPPLEMENT (PROSTAT) 30 ML LIQUID GT SCH ×3 (05:59→21:16)
[2019-11-23] MEDS: BACLOFEN 10 MG TABLET GT SCH ×4 (05:59→17:41)
[2019-11-23] MEDS: ARGININE/GLUTAMINE/CALCIUM BMB 1 EACH POWD.PACK GT SCH ×2 (05:59→17:41)
[2019-11-23] MEDS: OMEPRAZOLE 20 MG CAPSULE.DR GT SCH (05:59)
[2019-11-23] MEDS: ACETAMINOPHEN 650 MG/20.3 ML LIQUID UDC GT SCH (08:34)
[2019-11-23] MEDS: SERTRALINE 25 MG GT SCH (08:34)
[2019-11-23] MEDS: ACIDOPHILUS/BULGARICUS CHEW TAB GT SCH ×2 (08:34→21:16)
[2019-11-23] MEDS: HYDROGEN PEROXIDE 3% 118 ML BOTTLE TP SCH ×2 (09:00→21:00)
[2019-11-23] MEDS: COD LIVER OIL/ZINC OXIDE OINT 113 GM TUBE TP SCH ×2 (09:30→21:16)
[2019-11-23] MEDS: THERAHONEY GEL 1.5 OZ TUBE TOP SCH ×2 (09:30→21:16)
[2019-11-23] MEDS: SODIUM HYPOCHLORITE 0.125% (QUARTER STRENGTH) 473 ML BOTTLE TP SCH ×2 (09:30→21:16)
[2019-11-23] MEDS: MULTIVIT, IRON, MIN NO. 8, FA TABLET GT SCH (21:16)
[2019-11-23] MEDS: SIMVASTATIN 10 MG TABLET GT SCH (21:16)
[2019-11-23] MEDS: ASCORBIC ACID 500 MG TABLET GT SCH (21:16)
[2019-11-23] MEDS: ESTROGENS,CONJU VAGINAL CREAM 42.5 GM TUBE VG SCH (21:16)
[2019-11-23 22:46] VITALS: BP 116/48
[2019-11-24] MEDS: BACLOFEN 10 MG TABLET GT SCH ×4 (00:18→17:12)
[2019-11-24] MEDS: ALBUTEROL SULFATE 2.5 MG/3 ML NEBU NEB SCH ×6 (04:13→23:40)
[2019-11-24] MEDS: IPRATROPIUM BROMIDE 0.5 MG/2.5 ML NEBU NEB SCH ×6 (04:13→23:40)
[2019-11-24] MEDS: PROTEIN SUPPLEMENT (PROSTAT) 30 ML LIQUID GT SCH ×3 (06:13→22:32)
[2019-11-24] MEDS: ARGININE/GLUTAMINE/CALCIUM BMB 1 EACH POWD.PACK GT SCH ×2 (06:13→17:12)
[2019-11-24] MEDS: OMEPRAZOLE 20 MG CAPSULE.DR GT SCH (06:13)
[2019-11-24] MEDS: ACETAMINOPHEN 650 MG/20.3 ML LIQUID UDC GT SCH (08:01)
[2019-11-24] MEDS: ACIDOPHILUS/BULGARICUS CHEW TAB GT SCH ×2 (08:01→20:35)
[2019-11-24] MEDS: SERTRALINE 25 MG GT SCH (08:01)
[2019-11-24] MEDS: THERAHONEY GEL 1.5 OZ TUBE TOP SCH ×2 (08:02→21:00)
[2019-11-24] MEDS: SODIUM HYPOCHLORITE 0.125% (QUARTER STRENGTH) 473 ML BOTTLE TP SCH ×2 (08:02→21:00)
[2019-11-24] MEDS: COD LIVER OIL/ZINC OXIDE OINT 113 GM TUBE TP SCH ×2 (08:02→21:00)
[2019-11-24] MEDS: HYDROGEN PEROXIDE 3% 118 ML BOTTLE TP SCH ×2 (09:50→21:58)
[2019-11-24] MEDS: JEVITY 1.2 1000 ML LIQUID GT PRN (11:18)
[2019-11-24] MEDS: ASCORBIC ACID 500 MG TABLET GT SCH (20:35)
[2019-11-24] MEDS: SIMVASTATIN 10 MG TABLET GT SCH (20:35)
[2019-11-24] MEDS: MULTIVIT, IRON, MIN NO. 8, FA TABLET GT SCH (20:35)
[2019-11-24] MEDS: ESTROGENS,CONJU VAGINAL CREAM 42.5 GM TUBE VG SCH (21:00)
[2019-11-24 23:16] VITALS: BP 103/45
[2019-11-25] MEDS: BACLOFEN 10 MG TABLET GT SCH ×4 (00:19→17:32)
[2019-11-25] MEDS: IPRATROPIUM BROMIDE 0.5 MG/2.5 ML NEBU NEB SCH ×6 (03:11→23:23)
[2019-11-25] MEDS: ALBUTEROL SULFATE 2.5 MG/3 ML NEBU NEB SCH ×6 (03:11→23:23)
[2019-11-25] MEDS: OMEPRAZOLE 20 MG CAPSULE.DR GT SCH (05:53)
[2019-11-25] MEDS: ARGININE/GLUTAMINE/CALCIUM BMB 1 EACH POWD.PACK GT SCH ×2 (05:53→17:32)
[2019-11-25] MEDS: PROTEIN SUPPLEMENT (PROSTAT) 30 ML LIQUID GT SCH ×3 (05:53→21:46)
[2019-11-25 07:51] VITALS: BP 102/44
[2019-11-25] MEDS: ACIDOPHILUS/BULGARICUS CHEW TAB GT SCH ×2 (08:41→20:35)
[2019-11-25] MEDS: ACETAMINOPHEN 650 MG/20.3 ML LIQUID UDC GT SCH (08:41)
[2019-11-25] MEDS: SERTRALINE 25 MG GT SCH (08:45)
[2019-11-25] MEDS: THERAHONEY GEL 1.5 OZ TUBE TOP SCH ×2 (08:45→20:35)
[2019-11-25] MEDS: SODIUM HYPOCHLORITE 0.125% (QUARTER STRENGTH) 473 ML BOTTLE TP SCH ×2 (08:45→20:35)
[2019-11-25] MEDS: COD LIVER OIL/ZINC OXIDE OINT 113 GM TUBE TP SCH ×2 (08:45→20:35)
[2019-11-25] MEDS: HYDROGEN PEROXIDE 3% 118 ML BOTTLE TP SCH ×2 (09:00→21:25)
[2019-11-25] MEDS: JEVITY 1.2 1000 ML LIQUID GT PRN (11:40)
[2019-11-25 20:00] VITALS: BP 110/45
[2019-11-25] MEDS: ASCORBIC ACID 500 MG TABLET GT SCH (20:35)
[2019-11-25] MEDS: ESTROGENS,CONJU VAGINAL CREAM 42.5 GM TUBE VG SCH (20:35)
[2019-11-25] MEDS: MULTIVIT, IRON, MIN NO. 8, FA TABLET GT SCH (20:35)
[2019-11-25] MEDS: SIMVASTATIN 10 MG TABLET GT SCH (20:35)
[2019-11-26] MEDS: BACLOFEN 10 MG TABLET GT SCH ×4 (00:15→17:56)
[2019-11-26] MEDS: IPRATROPIUM BROMIDE 0.5 MG/2.5 ML NEBU NEB SCH ×6 (02:40→23:10)
[2019-11-26] MEDS: ALBUTEROL SULFATE 2.5 MG/3 ML NEBU NEB SCH ×6 (02:40→23:10)
[2019-11-26] MEDS: ARGININE/GLUTAMINE/CALCIUM BMB 1 EACH POWD.PACK GT SCH ×2 (06:37→17:56)
[2019-11-26] MEDS: PROTEIN SUPPLEMENT (PROSTAT) 30 ML LIQUID GT SCH ×3 (06:37→21:53)
[2019-11-26] MEDS: OMEPRAZOLE 20 MG CAPSULE.DR GT SCH (06:37)
[2019-11-26 07:42] VITALS: BP 116/51
[2019-11-26] MEDS: ACETAMINOPHEN 650 MG/20.3 ML LIQUID UDC GT SCH (08:31)
[2019-11-26] MEDS: ACIDOPHILUS/BULGARICUS CHEW TAB GT SCH ×2 (08:32→21:50)
[2019-11-26] MEDS: SERTRALINE 25 MG GT SCH (08:32)
[2019-11-26] MEDS: COD LIVER OIL/ZINC OXIDE OINT 113 GM TUBE TP SCH ×2 (08:34→21:52)
[2019-11-26] MEDS: SODIUM HYPOCHLORITE 0.125% (QUARTER STRENGTH) 473 ML BOTTLE TP SCH ×2 (08:34→21:52)
[2019-11-26] MEDS: THERAHONEY GEL 1.5 OZ TUBE TOP SCH ×2 (08:34→21:52)
[2019-11-26] MEDS: HYDROGEN PEROXIDE 3% 118 ML BOTTLE TP SCH ×2 (09:07→21:23)
[2019-11-26] MEDS: JEVITY 1.2 1000 ML LIQUID GT PRN (13:06)
--- NOTE | 2019-11-26 14:55 | NUR ---
INTERDISCIPLINARY PLAN OF CARE CONFERENCE was held today. Patient's daughter was not available to participate in the meeting. Dr. Sylvester and the Interdisciplinary Team reviewed the current plan of care in detail. RN reported on patient's medical condition and ongoing skin treatment. No major changes in condition were reported. See RN IDT conference notes. See also all other disciplines IDT notes and physician's progress notes for additional details.
--- NOTE | 2019-11-26 16:40 | NUR ---
Pharmacy Update from Today's 11/26/19 IDT meeting VS: Temp 98.9 BP 102/44 HR 100 LABS: (from 11/18/19) Wbc 7.8 H/H 11.6/36 Plt 253 Na 142 K 3.8 Cl 106 CO2 29 BUN/SCr 27/0.9 BS 148 Ca 9.0 Phos 3.5 Mg 2.2 MEDICATION USE REVIEWED: > Pt not on any anti-seizure medications > Pt on Restoril 7.5mg HS PRN + 7.5mg PRN one hr later since last GDR on 04/03/19. Monitored hours of sleep in October: 5hrx1, 6x1, 7x17, 8x12. PRN used x5 and repeat x0 in October, less usage than recent months. No issues noted per staff. > Pt continues on Zoloft 25mg daily after failed GDR as of 05/18/19 for depression m/b sadness (pt able to verbalize/mouth in response). Patient affirmed 13 episodes sadness in October. Please see above, likely d/t covid regulations regarding family visits. No side effects noted per pt or staff. Will follow > PRN MED USAGE: (October) Tylenol for pain/temp used x2 Artificial Tears used x0 [place] used x1 Zofran used x0 NEW ORDERS NOTED: > Gentamicin for PSA UTI 10/21-10/24 > Premarin cream for vaginal atrophy 11/11 Patient reviewed and discussed in detail at IDT with no issues noted per staff at this time. Per urology consult, estrogen cream added for vaginal dryness leading to recurrent UTIs from possible premenopause. No further medication recommendations at this time, will continue to follow
[2019-11-26 20:02] VITALS: BP 96/45
[2019-11-26] MEDS: ASCORBIC ACID 500 MG TABLET GT SCH (21:50)
[2019-11-26] MEDS: MULTIVIT, IRON, MIN NO. 8, FA TABLET GT SCH (21:50)
[2019-11-26] MEDS: SIMVASTATIN 10 MG TABLET GT SCH (21:50)
[2019-11-26] MEDS: ESTROGENS,CONJU VAGINAL CREAM 42.5 GM TUBE VG SCH (21:53)
[2019-11-27] MEDS: BACLOFEN 10 MG TABLET GT SCH ×5 (00:32→23:16)
[2019-11-27] MEDS: ALBUTEROL SULFATE 2.5 MG/3 ML NEBU NEB SCH ×6 (02:50→22:50)
[2019-11-27] MEDS: IPRATROPIUM BROMIDE 0.5 MG/2.5 ML NEBU NEB SCH ×6 (02:50→22:50)
[2019-11-27] MEDS: ARGININE/GLUTAMINE/CALCIUM BMB 1 EACH POWD.PACK GT SCH ×2 (05:24→18:39)
[2019-11-27] MEDS: OMEPRAZOLE 20 MG CAPSULE.DR GT SCH (05:24)
[2019-11-27] MEDS: PROTEIN SUPPLEMENT (PROSTAT) 30 ML LIQUID GT SCH ×3 (05:24→21:48)
[2019-11-27] MEDS: HYDROGEN PEROXIDE 3% 118 ML BOTTLE TP SCH ×2 (07:28→21:15)
[2019-11-27 07:49] VITALS: BP 100/49
[2019-11-27] MEDS: ACIDOPHILUS/BULGARICUS CHEW TAB GT SCH ×2 (08:06→21:46)
[2019-11-27] MEDS: THERAHONEY GEL 1.5 OZ TUBE TOP SCH ×2 (08:06→21:48)
[2019-11-27] MEDS: SODIUM HYPOCHLORITE 0.125% (QUARTER STRENGTH) 473 ML BOTTLE TP SCH ×2 (08:07→21:48)
[2019-11-27] MEDS: COD LIVER OIL/ZINC OXIDE OINT 113 GM TUBE TP SCH ×2 (08:07→21:48)
[2019-11-27] MEDS: SERTRALINE 25 MG GT SCH (08:08)
[2019-11-27] MEDS: ACETAMINOPHEN 650 MG/20.3 ML LIQUID UDC GT SCH (08:10)
[2019-11-27] MEDS: JEVITY 1.2 1000 ML LIQUID GT PRN (13:45)
--- NOTE | 2019-11-27 16:08 | NUR ---
Assisted Pt to zoom with family. All needs attended to, will continue to monitor.
[2019-11-27 20:10] VITALS: BP 102/51
[2019-11-27] MEDS: MULTIVIT, IRON, MIN NO. 8, FA TABLET GT SCH (21:46)
[2019-11-27] MEDS: SIMVASTATIN 10 MG TABLET GT SCH (21:46)
[2019-11-27] MEDS: ASCORBIC ACID 500 MG TABLET GT SCH (21:46)
[2019-11-27] MEDS: ESTROGENS,CONJU VAGINAL CREAM 42.5 GM TUBE VG SCH (21:48)
[2019-11-28] MEDS: OMEPRAZOLE 20 MG CAPSULE.DR GT SCH (06:00)
[2019-11-28] MEDS: BACLOFEN 10 MG TABLET GT SCH ×3 (06:00→17:21)
[2019-11-28] MEDS: PROTEIN SUPPLEMENT (PROSTAT) 30 ML LIQUID GT SCH ×3 (06:00→21:47)
[2019-11-28] MEDS: ARGININE/GLUTAMINE/CALCIUM BMB 1 EACH POWD.PACK GT SCH ×2 (06:00→17:21)
[2019-11-28 07:39] VITALS: BP 103/60
[2019-11-28] MEDS: ALBUTEROL SULFATE 2.5 MG/3 ML NEBU NEB SCH ×4 (08:05→20:15)
[2019-11-28] MEDS: IPRATROPIUM BROMIDE 0.5 MG/2.5 ML NEBU NEB SCH ×4 (08:05→20:15)
[2019-11-28] MEDS: THERAHONEY GEL 1.5 OZ TUBE TOP SCH (08:32)
[2019-11-28] MEDS: SERTRALINE 25 MG GT SCH (08:32)
[2019-11-28] MEDS: ACETAMINOPHEN 650 MG/20.3 ML LIQUID UDC GT SCH (08:32)
[2019-11-28] MEDS: ACIDOPHILUS/BULGARICUS CHEW TAB GT SCH ×2 (08:32→21:47)
[2019-11-28] MEDS: SODIUM HYPOCHLORITE 0.125% (QUARTER STRENGTH) 473 ML BOTTLE TP SCH (08:33)
[2019-11-28] MEDS: COD LIVER OIL/ZINC OXIDE OINT 113 GM TUBE TP SCH (08:33)
[2019-11-28] MEDS: HYDROGEN PEROXIDE 3% 118 ML BOTTLE TP SCH ×2 (10:00→21:00)
[2019-11-28 20:00] VITALS: BP 97/43
[2019-11-28] MEDS: ESTROGENS,CONJU VAGINAL CREAM 42.5 GM TUBE VG SCH (21:47)
[2019-11-28] MEDS: MULTIVIT, IRON, MIN NO. 8, FA TABLET GT SCH (21:47)
[2019-11-28] MEDS: SIMVASTATIN 10 MG TABLET GT SCH (21:47)
[2019-11-28] MEDS: ASCORBIC ACID 500 MG TABLET GT SCH (21:47)
[2019-11-29] MEDS: IPRATROPIUM BROMIDE 0.5 MG/2.5 ML NEBU NEB SCH ×7 (00:05→22:52)
[2019-11-29] MEDS: ALBUTEROL SULFATE 2.5 MG/3 ML NEBU NEB SCH ×7 (00:05→22:52)
[2019-11-29] MEDS: BACLOFEN 10 MG TABLET GT SCH ×5 (00:22→23:13)
[2019-11-29] MEDS: PROTEIN SUPPLEMENT (PROSTAT) 30 ML LIQUID GT SCH ×3 (05:57→21:16)
[2019-11-29] MEDS: ARGININE/GLUTAMINE/CALCIUM BMB 1 EACH POWD.PACK GT SCH ×2 (05:57→18:17)
[2019-11-29] MEDS: OMEPRAZOLE 20 MG CAPSULE.DR GT SCH (05:57)
[2019-11-29 07:36] VITALS: BP 119/61
[2019-11-29] MEDS: ACETAMINOPHEN 650 MG/20.3 ML LIQUID UDC GT SCH (08:57)
[2019-11-29] MEDS: ACIDOPHILUS/BULGARICUS CHEW TAB GT SCH ×2 (08:57→21:15)
[2019-11-29] MEDS: SERTRALINE 25 MG GT SCH (08:58)
[2019-11-29] MEDS: HYDROGEN PEROXIDE 3% 118 ML BOTTLE TP SCH ×2 (09:45→18:59)
[2019-11-29] MEDS: JEVITY 1.2 1000 ML LIQUID GT PRN (18:22)
[2019-11-29 20:13] VITALS: BP 106/42
[2019-11-29] MEDS: SODIUM HYPOCHLORITE 0.125% (QUARTER STRENGTH) 473 ML BOTTLE TP SCH (21:15)
[2019-11-29] MEDS: COD LIVER OIL/ZINC OXIDE OINT 113 GM TUBE TP SCH (21:15)
[2019-11-29] MEDS: MULTIVIT, IRON, MIN NO. 8, FA TABLET GT SCH (21:15)
[2019-11-29] MEDS: ASCORBIC ACID 500 MG TABLET GT SCH (21:15)
[2019-11-29] MEDS: THERAHONEY GEL 1.5 OZ TUBE TOP SCH (21:15)
[2019-11-29] MEDS: TEMAZEPAM 7.5 MG CAPSULE GT PRN (21:15)
[2019-11-29] MEDS: SIMVASTATIN 10 MG TABLET GT SCH (21:15)
[2019-11-29] MEDS: ESTROGENS,CONJU VAGINAL CREAM 42.5 GM TUBE VG SCH (21:16)
[2019-11-30] MEDS: ALBUTEROL SULFATE 2.5 MG/3 ML NEBU NEB SCH ×6 (02:51→23:19)
[2019-11-30] MEDS: IPRATROPIUM BROMIDE 0.5 MG/2.5 ML NEBU NEB SCH ×6 (02:51→23:19)
[2019-11-30] MEDS: PROTEIN SUPPLEMENT (PROSTAT) 30 ML LIQUID GT SCH ×3 (05:30→21:16)
[2019-11-30] MEDS: ARGININE/GLUTAMINE/CALCIUM BMB 1 EACH POWD.PACK GT SCH ×2 (05:30→17:45)
[2019-11-30] MEDS: BACLOFEN 10 MG TABLET GT SCH ×4 (05:30→23:22)
[2019-11-30] MEDS: OMEPRAZOLE 20 MG CAPSULE.DR GT SCH (05:30)
[2019-11-30 07:30] VITALS: BP 99/54
[2019-11-30] MEDS: HYDROGEN PEROXIDE 3% 118 ML BOTTLE TP SCH ×2 (07:53→21:56)
[2019-11-30] MEDS: ACETAMINOPHEN 650 MG/20.3 ML LIQUID UDC GT SCH (09:29)
[2019-11-30] MEDS: COD LIVER OIL/ZINC OXIDE OINT 113 GM TUBE TP SCH ×2 (09:29→21:16)
[2019-11-30] MEDS: ACIDOPHILUS/BULGARICUS CHEW TAB GT SCH ×2 (09:29→21:16)
[2019-11-30] MEDS: THERAHONEY GEL 1.5 OZ TUBE TOP SCH ×2 (09:29→21:16)
[2019-11-30] MEDS: SERTRALINE 25 MG GT SCH (09:29)
[2019-11-30] MEDS: SODIUM HYPOCHLORITE 0.125% (QUARTER STRENGTH) 473 ML BOTTLE TP SCH ×2 (09:29→21:16)
[2019-11-30 19:39] VITALS: BP 118/47
[2019-11-30] MEDS: MULTIVIT, IRON, MIN NO. 8, FA TABLET GT SCH (21:16)
[2019-11-30] MEDS: ESTROGENS,CONJU VAGINAL CREAM 42.5 GM TUBE VG SCH (21:16)
[2019-11-30] MEDS: ASCORBIC ACID 500 MG TABLET GT SCH (21:16)
[2019-11-30] MEDS: SIMVASTATIN 10 MG TABLET GT SCH (21:16)
[2019-11-30] MEDS: JEVITY 1.2 1000 ML LIQUID GT PRN (22:44)
[2019-12-01] MEDS: ALBUTEROL SULFATE 2.5 MG/3 ML NEBU NEB SCH ×6 (03:20→22:45)
[2019-12-01] MEDS: IPRATROPIUM BROMIDE 0.5 MG/2.5 ML NEBU NEB SCH ×6 (03:20→22:45)
[2019-12-01] MEDS: OMEPRAZOLE 20 MG CAPSULE.DR GT SCH (05:29)
[2019-12-01] MEDS: ARGININE/GLUTAMINE/CALCIUM BMB 1 EACH POWD.PACK GT SCH ×2 (05:29→18:19)
[2019-12-01] MEDS: BACLOFEN 10 MG TABLET GT SCH ×3 (05:29→18:19)
[2019-12-01] MEDS: PROTEIN SUPPLEMENT (PROSTAT) 30 ML LIQUID GT SCH ×3 (05:29→21:16)
[2019-12-01 08:06] VITALS: BP 103/49
[2019-12-01] MEDS: HYDROGEN PEROXIDE 3% 118 ML BOTTLE TP SCH ×2 (08:18→21:17)
[2019-12-01] MEDS: ACIDOPHILUS/BULGARICUS CHEW TAB GT SCH ×2 (08:40→21:16)
[2019-12-01] MEDS: ACETAMINOPHEN 650 MG/20.3 ML LIQUID UDC GT SCH (08:40)
[2019-12-01] MEDS: COD LIVER OIL/ZINC OXIDE OINT 113 GM TUBE TP SCH ×2 (08:41→21:16)
[2019-12-01] MEDS: SERTRALINE 25 MG GT SCH (08:41)
[2019-12-01] MEDS: THERAHONEY GEL 1.5 OZ TUBE TOP SCH ×2 (08:41→21:16)
[2019-12-01] MEDS: SODIUM HYPOCHLORITE 0.125% (QUARTER STRENGTH) 473 ML BOTTLE TP SCH ×2 (08:41→21:16)
[2019-12-01 19:59] VITALS: BP 101/42
[2019-12-01] MEDS: MULTIVIT, IRON, MIN NO. 8, FA TABLET GT SCH (21:16)
[2019-12-01] MEDS: ESTROGENS,CONJU VAGINAL CREAM 42.5 GM TUBE VG SCH (21:16)
[2019-12-01] MEDS: SIMVASTATIN 10 MG TABLET GT SCH (21:16)
[2019-12-01] MEDS: ASCORBIC ACID 500 MG TABLET GT SCH (21:16)
[2019-12-02] MEDS: BACLOFEN 10 MG TABLET GT SCH ×4 (00:20→17:34)
[2019-12-02] MEDS: ALBUTEROL SULFATE 2.5 MG/3 ML NEBU NEB SCH ×6 (02:50→23:04)
[2019-12-02] MEDS: IPRATROPIUM BROMIDE 0.5 MG/2.5 ML NEBU NEB SCH ×6 (02:50→23:04)
[2019-12-02] MEDS: OMEPRAZOLE 20 MG CAPSULE.DR GT SCH (05:38)
[2019-12-02] MEDS: ARGININE/GLUTAMINE/CALCIUM BMB 1 EACH POWD.PACK GT SCH ×2 (05:38→17:34)
[2019-12-02] MEDS: PROTEIN SUPPLEMENT (PROSTAT) 30 ML LIQUID GT SCH ×3 (05:38→22:42)
[2019-12-02 07:37] VITALS: BP 93/46
[2019-12-02] MEDS: ACETAMINOPHEN 650 MG/20.3 ML LIQUID UDC GT SCH (09:00)
[2019-12-02] MEDS: HYDROGEN PEROXIDE 3% 118 ML BOTTLE TP SCH ×2 (09:00→21:06)
[2019-12-02] MEDS: ACIDOPHILUS/BULGARICUS CHEW TAB GT SCH ×2 (09:03→21:00)
[2019-12-02] MEDS: SERTRALINE 25 MG GT SCH (09:03)
[2019-12-02] MEDS: THERAHONEY GEL 1.5 OZ TUBE TOP SCH ×2 (09:04→21:00)
[2019-12-02] MEDS: COD LIVER OIL/ZINC OXIDE OINT 113 GM TUBE TP SCH ×2 (09:04→21:00)
[2019-12-02] MEDS: SODIUM HYPOCHLORITE 0.125% (QUARTER STRENGTH) 473 ML BOTTLE TP SCH ×2 (09:04→21:00)
[2019-12-02] MEDS: JEVITY 1.2 1000 ML LIQUID GT PRN (17:34)
[2019-12-02 20:34] VITALS: BP 102/45
[2019-12-02] MEDS: SIMVASTATIN 10 MG TABLET GT SCH (21:00)
[2019-12-02] MEDS: ASCORBIC ACID 500 MG TABLET GT SCH (21:00)
[2019-12-02] MEDS: TEMAZEPAM 7.5 MG CAPSULE GT PRN (21:00)
[2019-12-02] MEDS: ESTROGENS,CONJU VAGINAL CREAM 42.5 GM TUBE VG SCH (21:00)
[2019-12-02] MEDS: MULTIVIT, IRON, MIN NO. 8, FA TABLET GT SCH (21:00)
[2019-12-03] MEDS: ALBUTEROL SULFATE 2.5 MG/3 ML NEBU NEB SCH ×6 (03:02→23:11)
[2019-12-03] MEDS: IPRATROPIUM BROMIDE 0.5 MG/2.5 ML NEBU NEB SCH ×6 (03:02→23:11)
[2019-12-03] MEDS: ARGININE/GLUTAMINE/CALCIUM BMB 1 EACH POWD.PACK GT SCH ×2 (06:08→18:27)
[2019-12-03] MEDS: OMEPRAZOLE 20 MG CAPSULE.DR GT SCH (06:08)
[2019-12-03] MEDS: PROTEIN SUPPLEMENT (PROSTAT) 30 ML LIQUID GT SCH ×3 (06:08→22:10)
[2019-12-03] MEDS: BACLOFEN 10 MG TABLET GT SCH ×5 (06:08→23:41)
[2019-12-03 07:27] VITALS: BP 98/45
[2019-12-03] MEDS: ACETAMINOPHEN 650 MG/20.3 ML LIQUID UDC GT SCH (08:48)
[2019-12-03] MEDS: SERTRALINE 25 MG GT SCH (08:49)
[2019-12-03] MEDS: ACIDOPHILUS/BULGARICUS CHEW TAB GT SCH ×2 (08:49→21:00)
[2019-12-03] MEDS: HYDROGEN PEROXIDE 3% 118 ML BOTTLE TP SCH ×2 (09:00→21:53)
[2019-12-03] MEDS: THERAHONEY GEL 1.5 OZ TUBE TOP SCH ×2 (09:00→22:00)
[2019-12-03] MEDS: COD LIVER OIL/ZINC OXIDE OINT 113 GM TUBE TP SCH ×2 (09:00→22:00)
[2019-12-03] MEDS: SODIUM HYPOCHLORITE 0.125% (QUARTER STRENGTH) 473 ML BOTTLE TP SCH ×2 (09:00→22:00)
--- NOTE | 2019-12-03 12:00 | NUR ---
SEEN BY AMY CURTIS WITH NNO.
--- NOTE | 2019-12-03 15:11 | NUR ---
This SW called patient's daughter Ludmila [phone] in response to an email that this SW received from Ludmila, asking this SW to call Ludmila. Ludmila was not available, and therefore this SW left Ludmila a voicemail message, asking Ludmila to call this SW back.
[2019-12-03 20:08] VITALS: BP 97/43
[2019-12-03] MEDS: MULTIVIT, IRON, MIN NO. 8, FA TABLET GT SCH (21:00)
[2019-12-03] MEDS: ASCORBIC ACID 500 MG TABLET GT SCH (21:00)
[2019-12-03] MEDS: SIMVASTATIN 10 MG TABLET GT SCH (21:00)
[2019-12-03] MEDS: ESTROGENS,CONJU VAGINAL CREAM 42.5 GM TUBE VG SCH (22:00)
[2019-12-03] MEDS: TEMAZEPAM 7.5 MG CAPSULE GT PRN (22:13)
[2019-12-04] MEDS: IPRATROPIUM BROMIDE 0.5 MG/2.5 ML NEBU NEB SCH ×6 (02:45→23:12)
[2019-12-04] MEDS: ALBUTEROL SULFATE 2.5 MG/3 ML NEBU NEB SCH ×6 (02:45→23:12)
[2019-12-04] MEDS: JEVITY 1.2 1000 ML LIQUID GT PRN (05:00)
[2019-12-04] MEDS: BACLOFEN 10 MG TABLET GT SCH ×3 (05:30→18:36)
[2019-12-04] MEDS: PROTEIN SUPPLEMENT (PROSTAT) 30 ML LIQUID GT SCH ×3 (05:30→22:13)
[2019-12-04] MEDS: OMEPRAZOLE 20 MG CAPSULE.DR GT SCH (05:30)
[2019-12-04] MEDS: ARGININE/GLUTAMINE/CALCIUM BMB 1 EACH POWD.PACK GT SCH ×2 (05:30→18:36)
[2019-12-04] MEDS: HYDROGEN PEROXIDE 3% 118 ML BOTTLE TP SCH ×2 (08:44→21:25)
[2019-12-04] MEDS: ACETAMINOPHEN 650 MG/20.3 ML LIQUID UDC GT SCH (08:51)
[2019-12-04] MEDS: ACIDOPHILUS/BULGARICUS CHEW TAB GT SCH ×2 (08:55→21:00)
[2019-12-04] MEDS: SERTRALINE 25 MG GT SCH (08:55)
[2019-12-04] MEDS: SODIUM HYPOCHLORITE 0.125% (QUARTER STRENGTH) 473 ML BOTTLE TP SCH ×2 (09:20→21:00)
[2019-12-04] MEDS: THERAHONEY GEL 1.5 OZ TUBE TOP SCH ×2 (09:20→21:00)
[2019-12-04] MEDS: COD LIVER OIL/ZINC OXIDE OINT 113 GM TUBE TP SCH ×2 (09:20→21:00)
--- NOTE | 2019-12-04 16:18 | NUR ---
DOROTHY received a call back from patient's daughter Ludmila [phone]. SW checked in with Ludmila to see how she has been doing, and if she had any questions/concerns. Ludmila stated that she and her family are doing well, and that she continues to remain in communication with the patient through video chat. Ludmila asked about the stimulus check that the patient had received, and discussed some possible ideas of supportive services/patient needs that she can utilize those funds for. DOROTHY stated that she will discuss these ideas with the accounting department, and then let Ludmila know if these were allowed expenses, per [employer] guidelines. Ludmila expressed understanding and agreement. Ludmila then inquired about when the visitation restrictions would be lifted, and DOROTHY stated that the Health Department had not provided any updates on the restrictions, and therefore the restrictions would be remaining in place until further instructions from the Health Department. Ludmila expressed understanding. DOROTHY to follow-up with the accounting department regarding patient's expenses and will then work with Ludmila to address patient's personal needs.
[2019-12-04 20:27] VITALS: BP 112/64
[2019-12-04] MEDS: SIMVASTATIN 10 MG TABLET GT SCH (21:00)
[2019-12-04] MEDS: ESTROGENS,CONJU VAGINAL CREAM 42.5 GM TUBE VG SCH (21:00)
[2019-12-04] MEDS: ASCORBIC ACID 500 MG TABLET GT SCH (21:00)
[2019-12-04] MEDS: MULTIVIT, IRON, MIN NO. 8, FA TABLET GT SCH (21:00)
[2019-12-04] MEDS: TEMAZEPAM 7.5 MG CAPSULE GT PRN (22:33)
[2019-12-05] MEDS: ALBUTEROL SULFATE 2.5 MG/3 ML NEBU NEB SCH ×6 (02:40→23:45)
[2019-12-05] MEDS: IPRATROPIUM BROMIDE 0.5 MG/2.5 ML NEBU NEB SCH ×6 (02:40→23:45)
[2019-12-05] MEDS: OMEPRAZOLE 20 MG CAPSULE.DR GT SCH (05:30)
[2019-12-05] MEDS: PROTEIN SUPPLEMENT (PROSTAT) 30 ML LIQUID GT SCH ×3 (05:30→21:57)
[2019-12-05] MEDS: ARGININE/GLUTAMINE/CALCIUM BMB 1 EACH POWD.PACK GT SCH ×2 (05:30→18:07)
[2019-12-05] MEDS: BACLOFEN 10 MG TABLET GT SCH ×4 (05:30→18:07)
[2019-12-05] MEDS: JEVITY 1.2 1000 ML LIQUID GT PRN (06:20)
[2019-12-05 07:36] VITALS: BP 117/49
[2019-12-05] MEDS: ACETAMINOPHEN 650 MG/20.3 ML LIQUID UDC GT SCH (08:49)
[2019-12-05] MEDS: ACIDOPHILUS/BULGARICUS CHEW TAB GT SCH ×2 (08:50→21:56)
[2019-12-05] MEDS: SERTRALINE 25 MG GT SCH (08:50)
[2019-12-05] MEDS: COD LIVER OIL/ZINC OXIDE OINT 113 GM TUBE TP SCH ×2 (09:00→21:57)
[2019-12-05] MEDS: HYDROGEN PEROXIDE 3% 118 ML BOTTLE TP SCH ×2 (09:00→19:08)
[2019-12-05] MEDS: SODIUM HYPOCHLORITE 0.125% (QUARTER STRENGTH) 473 ML BOTTLE TP SCH ×2 (09:35→21:57)
[2019-12-05] MEDS: THERAHONEY GEL 1.5 OZ TUBE TOP SCH ×2 (09:35→21:57)
[2019-12-05 20:04] VITALS: BP 91/50
[2019-12-05] MEDS: SIMVASTATIN 10 MG TABLET GT SCH (21:56)
[2019-12-05] MEDS: MULTIVIT, IRON, MIN NO. 8, FA TABLET GT SCH (21:56)
[2019-12-05] MEDS: ASCORBIC ACID 500 MG TABLET GT SCH (21:56)
[2019-12-05] MEDS: ESTROGENS,CONJU VAGINAL CREAM 42.5 GM TUBE VG SCH (21:57)
[2019-12-05] MEDS: TEMAZEPAM 7.5 MG CAPSULE GT PRN (21:57)
[2019-12-06] MEDS: BACLOFEN 10 MG TABLET GT SCH ×4 (00:40→17:22)
[2019-12-06] MEDS: IPRATROPIUM BROMIDE 0.5 MG/2.5 ML NEBU NEB SCH ×6 (02:43→23:18)
[2019-12-06] MEDS: ALBUTEROL SULFATE 2.5 MG/3 ML NEBU NEB SCH ×6 (02:43→23:18)
[2019-12-06] MEDS: OMEPRAZOLE 20 MG CAPSULE.DR GT SCH (05:49)
[2019-12-06] MEDS: ARGININE/GLUTAMINE/CALCIUM BMB 1 EACH POWD.PACK GT SCH ×2 (05:49→17:22)
[2019-12-06] MEDS: PROTEIN SUPPLEMENT (PROSTAT) 30 ML LIQUID GT SCH ×3 (05:50→21:46)
[2019-12-06 07:22] VITALS: BP 98/61
[2019-12-06] MEDS: ACETAMINOPHEN 650 MG/20.3 ML LIQUID UDC GT SCH (08:43)
[2019-12-06] MEDS: ACIDOPHILUS/BULGARICUS CHEW TAB GT SCH ×2 (08:43→21:45)
[2019-12-06] MEDS: THERAHONEY GEL 1.5 OZ TUBE TOP SCH ×2 (08:44→21:46)
[2019-12-06] MEDS: SERTRALINE 25 MG GT SCH (08:44)
[2019-12-06] MEDS: COD LIVER OIL/ZINC OXIDE OINT 113 GM TUBE TP SCH ×2 (08:44→21:46)
[2019-12-06] MEDS: SODIUM HYPOCHLORITE 0.125% (QUARTER STRENGTH) 473 ML BOTTLE TP SCH ×2 (08:49→21:46)
[2019-12-06] MEDS: HYDROGEN PEROXIDE 3% 118 ML BOTTLE TP SCH ×2 (09:50→21:40)
[2019-12-06] MEDS: JEVITY 1.2 1000 ML LIQUID GT PRN (17:32)
[2019-12-06] MEDS: MULTIVIT, IRON, MIN NO. 8, FA TABLET GT SCH (21:45)
[2019-12-06] MEDS: SIMVASTATIN 10 MG TABLET GT SCH (21:45)
[2019-12-06] MEDS: ASCORBIC ACID 500 MG TABLET GT SCH (21:45)
[2019-12-06] MEDS: ESTROGENS,CONJU VAGINAL CREAM 42.5 GM TUBE VG SCH (21:46)
[2019-12-06 22:00] VITALS: BP 100/48
[2019-12-07] MEDS: BACLOFEN 10 MG TABLET GT SCH ×5 (00:16→23:26)
[2019-12-07] MEDS: IPRATROPIUM BROMIDE 0.5 MG/2.5 ML NEBU NEB SCH ×6 (03:41→23:45)
[2019-12-07] MEDS: ALBUTEROL SULFATE 2.5 MG/3 ML NEBU NEB SCH ×6 (03:41→23:45)
[2019-12-07] MEDS: PROTEIN SUPPLEMENT (PROSTAT) 30 ML LIQUID GT SCH ×3 (05:30→22:16)
[2019-12-07] MEDS: ARGININE/GLUTAMINE/CALCIUM BMB 1 EACH POWD.PACK GT SCH ×2 (05:30→17:20)
[2019-12-07] MEDS: OMEPRAZOLE 20 MG CAPSULE.DR GT SCH (05:30)
[2019-12-07] MEDS: ACIDOPHILUS/BULGARICUS CHEW TAB GT SCH ×2 (08:11→20:53)
[2019-12-07] MEDS: ACETAMINOPHEN 650 MG/20.3 ML LIQUID UDC GT SCH (08:11)
[2019-12-07] MEDS: SERTRALINE 25 MG GT SCH (08:11)
[2019-12-07] MEDS: COD LIVER OIL/ZINC OXIDE OINT 113 GM TUBE TP SCH ×2 (08:11→20:53)
[2019-12-07] MEDS: THERAHONEY GEL 1.5 OZ TUBE TOP SCH ×2 (08:11→20:53)
[2019-12-07] MEDS: SODIUM HYPOCHLORITE 0.125% (QUARTER STRENGTH) 473 ML BOTTLE TP SCH ×2 (08:11→20:53)
[2019-12-07] MEDS: HYDROGEN PEROXIDE 3% 118 ML BOTTLE TP SCH ×2 (09:40→21:44)
[2019-12-07] MEDS: SIMVASTATIN 10 MG TABLET GT SCH (20:53)
[2019-12-07] MEDS: ASCORBIC ACID 500 MG TABLET GT SCH (20:53)
[2019-12-07] MEDS: MULTIVIT, IRON, MIN NO. 8, FA TABLET GT SCH (20:53)
[2019-12-07] MEDS: ESTROGENS,CONJU VAGINAL CREAM 42.5 GM TUBE VG SCH (20:54)
[2019-12-07 23:22] VITALS: BP 94/46
[2019-12-08] MEDS: TEMAZEPAM 7.5 MG CAPSULE GT PRN (02:35)
[2019-12-08] MEDS: IPRATROPIUM BROMIDE 0.5 MG/2.5 ML NEBU NEB SCH ×6 (03:22→22:34)
[2019-12-08] MEDS: ALBUTEROL SULFATE 2.5 MG/3 ML NEBU NEB SCH ×6 (03:22→22:34)
[2019-12-08] MEDS: JEVITY 1.2 1000 ML LIQUID GT PRN (04:39)
[2019-12-08] MEDS: ARGININE/GLUTAMINE/CALCIUM BMB 1 EACH POWD.PACK GT SCH ×2 (05:12→17:09)
[2019-12-08] MEDS: PROTEIN SUPPLEMENT (PROSTAT) 30 ML LIQUID GT SCH ×3 (05:13→21:56)
[2019-12-08] MEDS: BACLOFEN 10 MG TABLET GT SCH ×3 (05:13→17:09)
[2019-12-08] MEDS: OMEPRAZOLE 20 MG CAPSULE.DR GT SCH (05:13)
[2019-12-08 07:51] VITALS: BP 99/55
[2019-12-08] MEDS: SODIUM HYPOCHLORITE 0.125% (QUARTER STRENGTH) 473 ML BOTTLE TP SCH ×2 (08:41→21:56)
[2019-12-08] MEDS: THERAHONEY GEL 1.5 OZ TUBE TOP SCH ×2 (08:41→21:55)
[2019-12-08] MEDS: ACETAMINOPHEN 650 MG/20.3 ML LIQUID UDC GT SCH (08:41)
[2019-12-08] MEDS: SERTRALINE 25 MG GT SCH (08:41)
[2019-12-08] MEDS: ACIDOPHILUS/BULGARICUS CHEW TAB GT SCH ×2 (08:41→21:53)
[2019-12-08] MEDS: COD LIVER OIL/ZINC OXIDE OINT 113 GM TUBE TP SCH ×2 (08:41→21:56)
[2019-12-08] MEDS: HYDROGEN PEROXIDE 3% 118 ML BOTTLE TP SCH ×2 (09:00→21:17)
[2019-12-08 20:29] VITALS: BP 99/60
[2019-12-08] MEDS: MULTIVIT, IRON, MIN NO. 8, FA TABLET GT SCH (21:53)
[2019-12-08] MEDS: ASCORBIC ACID 500 MG TABLET GT SCH (21:54)
[2019-12-08] MEDS: SIMVASTATIN 10 MG TABLET GT SCH (21:54)
[2019-12-08] MEDS: ESTROGENS,CONJU VAGINAL CREAM 42.5 GM TUBE VG SCH (21:56)
[2019-12-09] MEDS: BACLOFEN 10 MG TABLET GT SCH ×4 (00:28→17:41)
[2019-12-09] MEDS: ALBUTEROL SULFATE 2.5 MG/3 ML NEBU NEB SCH ×6 (02:39→23:07)
[2019-12-09] MEDS: IPRATROPIUM BROMIDE 0.5 MG/2.5 ML NEBU NEB SCH ×6 (02:39→23:07)
[2019-12-09] MEDS: ARGININE/GLUTAMINE/CALCIUM BMB 1 EACH POWD.PACK GT SCH ×2 (06:00→17:41)
[2019-12-09] MEDS: OMEPRAZOLE 20 MG CAPSULE.DR GT SCH (06:00)
[2019-12-09] MEDS: PROTEIN SUPPLEMENT (PROSTAT) 30 ML LIQUID GT SCH ×3 (06:01→21:36)
[2019-12-09 07:27] VITALS: BP 114/56
[2019-12-09] MEDS: SERTRALINE 25 MG GT SCH (08:23)
[2019-12-09] MEDS: ACETAMINOPHEN 650 MG/20.3 ML LIQUID UDC GT SCH (08:23)
[2019-12-09] MEDS: ACIDOPHILUS/BULGARICUS CHEW TAB GT SCH ×2 (08:23→21:35)
[2019-12-09] MEDS: HYDROGEN PEROXIDE 3% 118 ML BOTTLE TP SCH ×2 (09:00→21:39)
[2019-12-09] MEDS: COD LIVER OIL/ZINC OXIDE OINT 113 GM TUBE TP SCH ×2 (09:08→21:36)
[2019-12-09] MEDS: THERAHONEY GEL 1.5 OZ TUBE TOP SCH ×2 (09:08→21:35)
[2019-12-09] MEDS: SODIUM HYPOCHLORITE 0.125% (QUARTER STRENGTH) 473 ML BOTTLE TP SCH ×2 (09:08→21:36)
[2019-12-09 20:13] VITALS: BP 106/61
[2019-12-09] MEDS: ASCORBIC ACID 500 MG TABLET GT SCH (21:35)
[2019-12-09] MEDS: MULTIVIT, IRON, MIN NO. 8, FA TABLET GT SCH (21:35)
[2019-12-09] MEDS: SIMVASTATIN 10 MG TABLET GT SCH (21:35)
[2019-12-09] MEDS: ESTROGENS,CONJU VAGINAL CREAM 42.5 GM TUBE VG SCH (21:36)
[2019-12-10] MEDS: BACLOFEN 10 MG TABLET GT SCH ×4 (00:09→17:00)
[2019-12-10] MEDS: IPRATROPIUM BROMIDE 0.5 MG/2.5 ML NEBU NEB SCH ×6 (03:04→23:10)
[2019-12-10] MEDS: ALBUTEROL SULFATE 2.5 MG/3 ML NEBU NEB SCH ×6 (03:04→23:10)
[2019-12-10] MEDS: OMEPRAZOLE 20 MG CAPSULE.DR GT SCH (05:06)
[2019-12-10] MEDS: ARGININE/GLUTAMINE/CALCIUM BMB 1 EACH POWD.PACK GT SCH ×2 (05:06→17:00)
[2019-12-10] MEDS: PROTEIN SUPPLEMENT (PROSTAT) 30 ML LIQUID GT SCH ×3 (05:07→22:02)
[2019-12-10 07:33] VITALS: BP 107/44
[2019-12-10] MEDS: SERTRALINE 25 MG GT SCH (08:08)
[2019-12-10] MEDS: ACIDOPHILUS/BULGARICUS CHEW TAB GT SCH ×2 (08:08→21:00)
[2019-12-10] MEDS: ACETAMINOPHEN 650 MG/20.3 ML LIQUID UDC GT SCH (08:08)
[2019-12-10] MEDS: HYDROGEN PEROXIDE 3% 118 ML BOTTLE TP SCH ×2 (09:05→21:00)
[2019-12-10] MEDS: COD LIVER OIL/ZINC OXIDE OINT 113 GM TUBE TP SCH ×2 (09:12→21:00)
[2019-12-10] MEDS: THERAHONEY GEL 1.5 OZ TUBE TOP SCH ×2 (09:12→21:00)
[2019-12-10] MEDS: SODIUM HYPOCHLORITE 0.125% (QUARTER STRENGTH) 473 ML BOTTLE TP SCH ×2 (09:12→21:00)
--- NOTE | 2019-12-10 15:41 | NUR ---
New orders to continue on Kci matress.for wound management.
[2019-12-10 20:18] VITALS: BP 98/57
[2019-12-10] MEDS: ASCORBIC ACID 500 MG TABLET GT SCH (21:00)
[2019-12-10] MEDS: SIMVASTATIN 10 MG TABLET GT SCH (21:00)
[2019-12-10] MEDS: MULTIVIT, IRON, MIN NO. 8, FA TABLET GT SCH (21:00)
[2019-12-10] MEDS: ESTROGENS,CONJU VAGINAL CREAM 42.5 GM TUBE VG SCH (21:00)
[2019-12-11] MEDS: ALBUTEROL SULFATE 2.5 MG/3 ML NEBU NEB SCH ×6 (03:02→23:14)
[2019-12-11] MEDS: IPRATROPIUM BROMIDE 0.5 MG/2.5 ML NEBU NEB SCH ×6 (03:02→23:14)
[2019-12-11] MEDS: BACLOFEN 10 MG TABLET GT SCH ×4 (05:40→17:52)
[2019-12-11] MEDS: OMEPRAZOLE 20 MG CAPSULE.DR GT SCH (05:40)
[2019-12-11] MEDS: PROTEIN SUPPLEMENT (PROSTAT) 30 ML LIQUID GT SCH ×3 (05:40→21:55)
[2019-12-11] MEDS: ARGININE/GLUTAMINE/CALCIUM BMB 1 EACH POWD.PACK GT SCH ×2 (05:40→17:52)
[2019-12-11 07:39] VITALS: BP 113/52
[2019-12-11] MEDS: ACETAMINOPHEN 650 MG/20.3 ML LIQUID UDC GT SCH (07:55)
[2019-12-11] MEDS: ACIDOPHILUS/BULGARICUS CHEW TAB GT SCH ×2 (08:00→21:54)
[2019-12-11] MEDS: SERTRALINE 25 MG GT SCH (08:00)
[2019-12-11] MEDS: SODIUM HYPOCHLORITE 0.125% (QUARTER STRENGTH) 473 ML BOTTLE TP SCH ×2 (08:58→21:54)
[2019-12-11] MEDS: COD LIVER OIL/ZINC OXIDE OINT 113 GM TUBE TP SCH ×2 (08:58→21:54)
[2019-12-11] MEDS: THERAHONEY GEL 1.5 OZ TUBE TOP SCH ×2 (08:58→21:54)
[2019-12-11] MEDS: HYDROGEN PEROXIDE 3% 118 ML BOTTLE TP SCH ×2 (09:00→21:51)
--- NOTE | 2019-12-11 14:00 | NUR ---
Dr Hankins was aware of pt has 100.4 temp this morning,cooling measures done ,no new orders at this time.
[2019-12-11 20:00] VITALS: BP 98/43
[2019-12-11] MEDS: ASCORBIC ACID 500 MG TABLET GT SCH (21:54)
[2019-12-11] MEDS: SIMVASTATIN 10 MG TABLET GT SCH (21:54)
[2019-12-11] MEDS: MULTIVIT, IRON, MIN NO. 8, FA TABLET GT SCH (21:54)
[2019-12-11] MEDS: ESTROGENS,CONJU VAGINAL CREAM 42.5 GM TUBE VG SCH (21:55)
[2019-12-12] MEDS: BACLOFEN 10 MG TABLET GT SCH ×4 (00:51→17:49)
[2019-12-12] MEDS: IPRATROPIUM BROMIDE 0.5 MG/2.5 ML NEBU NEB SCH ×7 (02:40→23:22)
[2019-12-12] MEDS: ALBUTEROL SULFATE 2.5 MG/3 ML NEBU NEB SCH ×7 (02:40→23:22)
[2019-12-12] MEDS: PROTEIN SUPPLEMENT (PROSTAT) 30 ML LIQUID GT SCH ×3 (06:13→22:16)
[2019-12-12] MEDS: JEVITY 1.2 1000 ML LIQUID GT PRN (06:13)
[2019-12-12] MEDS: OMEPRAZOLE 20 MG CAPSULE.DR GT SCH (06:13)
[2019-12-12] MEDS: ARGININE/GLUTAMINE/CALCIUM BMB 1 EACH POWD.PACK GT SCH ×2 (06:13→17:49)
[2019-12-12 07:26] VITALS: BP 126/55
[2019-12-12] MEDS: SERTRALINE 25 MG GT SCH (08:31)
[2019-12-12] MEDS: ACETAMINOPHEN 650 MG/20.3 ML LIQUID UDC GT SCH (08:31)
[2019-12-12] MEDS: ACIDOPHILUS/BULGARICUS CHEW TAB GT SCH ×2 (08:31→21:00)
[2019-12-12] MEDS: SODIUM HYPOCHLORITE 0.125% (QUARTER STRENGTH) 473 ML BOTTLE TP SCH ×2 (08:32→21:00)
[2019-12-12] MEDS: THERAHONEY GEL 1.5 OZ TUBE TOP SCH ×2 (08:32→21:00)
[2019-12-12] MEDS: COD LIVER OIL/ZINC OXIDE OINT 113 GM TUBE TP SCH ×2 (08:32→21:00)
[2019-12-12] MEDS: HYDROGEN PEROXIDE 3% 118 ML BOTTLE TP SCH ×2 (09:00→21:25)
[2019-12-12 20:00] VITALS: BP 102/56
[2019-12-12] MEDS: ESTROGENS,CONJU VAGINAL CREAM 42.5 GM TUBE VG SCH (21:00)
[2019-12-12] MEDS: ASCORBIC ACID 500 MG TABLET GT SCH (21:00)
[2019-12-12] MEDS: MULTIVIT, IRON, MIN NO. 8, FA TABLET GT SCH (21:00)
[2019-12-12] MEDS: SIMVASTATIN 10 MG TABLET GT SCH (21:00)
[2019-12-13] MEDS: BACLOFEN 10 MG TABLET GT SCH ×5 (00:42→23:01)
[2019-12-13] MEDS: ALBUTEROL SULFATE 2.5 MG/3 ML NEBU NEB SCH ×5 (02:37→20:30)
[2019-12-13] MEDS: IPRATROPIUM BROMIDE 0.5 MG/2.5 ML NEBU NEB SCH ×5 (02:37→20:30)
[2019-12-13] MEDS: ARGININE/GLUTAMINE/CALCIUM BMB 1 EACH POWD.PACK GT SCH ×2 (05:31→17:03)
[2019-12-13] MEDS: OMEPRAZOLE 20 MG CAPSULE.DR GT SCH (05:31)
[2019-12-13] MEDS: PROTEIN SUPPLEMENT (PROSTAT) 30 ML LIQUID GT SCH ×3 (05:31→21:53)
[2019-12-13 07:31] VITALS: BP 98/57
[2019-12-13] MEDS: SERTRALINE 25 MG GT SCH (08:30)
[2019-12-13] MEDS: THERAHONEY GEL 1.5 OZ TUBE TOP SCH ×2 (08:30→21:52)
[2019-12-13] MEDS: SODIUM HYPOCHLORITE 0.125% (QUARTER STRENGTH) 473 ML BOTTLE TP SCH ×2 (08:30→21:52)
[2019-12-13] MEDS: COD LIVER OIL/ZINC OXIDE OINT 113 GM TUBE TP SCH ×2 (08:30→21:53)
[2019-12-13] MEDS: ACIDOPHILUS/BULGARICUS CHEW TAB GT SCH ×2 (08:30→21:52)
[2019-12-13] MEDS: ACETAMINOPHEN 650 MG/20.3 ML LIQUID UDC GT SCH (08:30)
[2019-12-13] MEDS: HYDROGEN PEROXIDE 3% 118 ML BOTTLE TP SCH ×2 (09:00→21:32)
--- NOTE | 2019-12-13 16:18 | NUR ---
SEEN AND EXAMINED BY FERNANDO Doresy) AND WITH NEW ORDER CARRIED OUT.
[2019-12-13] MEDS: JEVITY 1.2 1000 ML LIQUID GT PRN (17:11)
[2019-12-13 18:29] LABS: *BILIRUBIN,URIN NEGATIVE (NEGATIVE); *BLOOD, URINE 2+ (NEGATIVE); *CLARITY,URINE CLOUDY (CLEAR); *COLOR,URINE YELLOW (YELLOW); *KETONES,URINE NEGATIVE (NEGATIVE); *UROBILINOGEN,URINE 0.2 E.U./dl (NORMAL); LEUKOCYTE ESTERASE ,URINE 3+ (NEGATIVE); NITRITE, URINE POSITIVE (NEGATIVE); UGLUCOSE NEGATIVE (NEGATIVE)
[2019-12-13 19:00] LABS: RBC,URINE 50-80 /HPF (0-3)
[2019-12-13 19:01] LABS: BACTERIA,URINE MODERATE /HPF (NONE SEEN); SQUAMOUS EPITHELIAL CELL,UR FEW /HPF (NONE SEEN)
[2019-12-13 20:00] VITALS: BP 108/47
[2019-12-13] MEDS: ASCORBIC ACID 500 MG TABLET GT SCH (21:52)
[2019-12-13] MEDS: SIMVASTATIN 10 MG TABLET GT SCH (21:52)
[2019-12-13] MEDS: MULTIVIT, IRON, MIN NO. 8, FA TABLET GT SCH (21:52)
[2019-12-13] MEDS: ESTROGENS,CONJU VAGINAL CREAM 42.5 GM TUBE VG SCH (21:53)
[2019-12-13] MEDS: ACETAMINOPHEN 650 MG/20 ML UDC- SA PATIENTS-PAIN ONLY GT PRN (22:13)
[2019-12-14] MEDS: IPRATROPIUM BROMIDE 0.5 MG/2.5 ML NEBU NEB SCH ×6 (03:42→23:03)
[2019-12-14] MEDS: ALBUTEROL SULFATE 2.5 MG/3 ML NEBU NEB SCH ×6 (03:42→23:03)
[2019-12-14] MEDS: PROTEIN SUPPLEMENT (PROSTAT) 30 ML LIQUID GT SCH ×3 (05:05→22:06)
[2019-12-14] MEDS: OMEPRAZOLE 20 MG CAPSULE.DR GT SCH (05:05)
[2019-12-14] MEDS: BACLOFEN 10 MG TABLET GT SCH ×3 (05:05→17:15)
[2019-12-14] MEDS: ARGININE/GLUTAMINE/CALCIUM BMB 1 EACH POWD.PACK GT SCH ×2 (05:05→17:15)
[2019-12-14 07:33] VITALS: BP 105/57
[2019-12-14 07:35] LABS: BASOPHILS # (AUTO) 0.1 K/uL (0.0-8.0); EOSINOPHILS # (AUTO) 0.4 K/uL (0.0-0.7); EOSINOPHILS % (AUTO) 4.4 % (0.0-7.0); HEMATOCRIT 39.7 % (31.2-41.9); HEMOGLOBIN 12.5 g/dL (10.9-14.3); LYMPHOCYTES # (AUTO) 2.4 K/uL (20.0-40.0); MEAN CORPUSCULAR HEMOGLOBIN 28.2 uug (24.7-32.8); MEAN CORPUSCULAR HGB CONC 31 g/dL (32.3-35.6); MEAN CORPUSCULAR VOLUME 89.7 fL (75.5-95.3); MONOCYTES # (AUTO) 0.9 K/uL (2.0-10.0); MONOCYTES % (AUTO) 8.4 % (0.0-11.0); NEUTROPHILS # (AUTO) 6.5 K/uL (1.8-8.9); NEUTROPHILS % (AUTO) 63.2 % (38.5-71.5); PLATELET COUNT (AUTO) 271 K/uL (179-408); RED BLOOD CELL COUNT(AUTO) 4.42 MIL/uL (3.63-4.92); WHITE BLOOD COUNT (AUTO) 10.2 K/uL (3.8-11.8)
[2019-12-14 07:43] LABS: CREATININE 0.9 mg/dL (0.6-1.3); POTASSIUM 4.3 mmol/L (3.5-5.1)
[2019-12-14] MEDS: HYDROGEN PEROXIDE 3% 118 ML BOTTLE TP SCH ×2 (08:01→21:11)
[2019-12-14] MEDS: THERAHONEY GEL 1.5 OZ TUBE TOP SCH ×2 (08:29→21:00)
[2019-12-14] MEDS: ACIDOPHILUS/BULGARICUS CHEW TAB GT SCH ×2 (08:29→21:00)
[2019-12-14] MEDS: SERTRALINE 25 MG GT SCH (08:29)
[2019-12-14] MEDS: ACETAMINOPHEN 650 MG/20.3 ML LIQUID UDC GT SCH (08:29)
[2019-12-14] MEDS: COD LIVER OIL/ZINC OXIDE OINT 113 GM TUBE TP SCH ×2 (08:30→21:00)
[2019-12-14] MEDS: SODIUM HYPOCHLORITE 0.125% (QUARTER STRENGTH) 473 ML BOTTLE TP SCH ×2 (08:30→21:00)
[2019-12-14 20:00] VITALS: BP 110/42
[2019-12-14] MEDS: MULTIVIT, IRON, MIN NO. 8, FA TABLET GT SCH (21:00)
[2019-12-14] MEDS: ASCORBIC ACID 500 MG TABLET GT SCH (21:00)
[2019-12-14] MEDS: SIMVASTATIN 10 MG TABLET GT SCH (21:00)
[2019-12-14] MEDS: ESTROGENS,CONJU VAGINAL CREAM 42.5 GM TUBE VG SCH (21:00)
[2019-12-15] MEDS: BACLOFEN 10 MG TABLET GT SCH ×4 (00:47→17:08)
[2019-12-15] MEDS: IPRATROPIUM BROMIDE 0.5 MG/2.5 ML NEBU NEB SCH ×6 (03:12→22:50)
[2019-12-15] MEDS: ALBUTEROL SULFATE 2.5 MG/3 ML NEBU NEB SCH ×6 (03:12→22:50)
[2019-12-15] MEDS: JEVITY 1.2 1000 ML LIQUID GT PRN (03:16)
[2019-12-15] MEDS: OMEPRAZOLE 20 MG CAPSULE.DR GT SCH (05:10)
[2019-12-15] MEDS: PROTEIN SUPPLEMENT (PROSTAT) 30 ML LIQUID GT SCH ×3 (05:10→21:36)
[2019-12-15] MEDS: ARGININE/GLUTAMINE/CALCIUM BMB 1 EACH POWD.PACK GT SCH ×2 (05:10→17:08)
[2019-12-15 07:45] VITALS: BP 133/49
[2019-12-15] MEDS: ACIDOPHILUS/BULGARICUS CHEW TAB GT SCH ×2 (08:23→21:35)
[2019-12-15] MEDS: ACETAMINOPHEN 650 MG/20.3 ML LIQUID UDC GT SCH (08:23)
[2019-12-15] MEDS: THERAHONEY GEL 1.5 OZ TUBE TOP SCH ×2 (08:24→21:36)
[2019-12-15] MEDS: SODIUM HYPOCHLORITE 0.125% (QUARTER STRENGTH) 473 ML BOTTLE TP SCH ×2 (08:24→21:36)
[2019-12-15] MEDS: SERTRALINE 25 MG GT SCH (08:24)
[2019-12-15] MEDS: COD LIVER OIL/ZINC OXIDE OINT 113 GM TUBE TP SCH ×2 (08:25→21:36)
--- NOTE | 2019-12-15 09:11 | NUR ---
DR. TURCIOS CALLED TEMP. 101.6 RECTALLY AND TO F/U URINE C&S PRELIMINARY RESULT AND UA.
--- NOTE | 2019-12-15 09:16 | NUR ---
CALLED BACK AND WITH NEW ORDERS CARRIED OUT.
[2019-12-15] MEDS: HYDROGEN PEROXIDE 3% 118 ML BOTTLE TP SCH ×2 (09:37→21:02)
--- NOTE | 2019-12-15 10:08 | NUR ---
CH. NURSE SPOKE TO ASHLEY FROM [facility] AND WILL CALL HER BACK WITH DOSING.
--- NOTE | 2019-12-15 12:20 | NUR ---
NEW ORDER CARRIED OUT FROM DR. TURCIOS FOR MEROPENEP IV , PER DOSING FROM [facility] ASHLEY HEATON TO START FROM IV E KIT .PERIPHERAL IV LINE STARTED ON RT HAND # [id number] AT FIRST ATTEMPT WITH GOOD BLOOD RETURN.MESSAGE LEFT TO PT'S DTR. RAKEL GARCIA AND OTHER PT'S DTR. ANISH WAS CALLED BUT HER NUMBER IS NOT IN SERVICE.
[2019-12-15] MEDS: MEROPENEM 1 G in IV NORMAL SALINE 100 ML IV SCH ×2 (12:27→20:35)
--- NOTE | 2019-12-15 15:30 | NUR ---
cooling measures done with ice pack axillary bilateral
[2019-12-15] MEDS: ACETAMINOPHEN 650 MG/20 ML UDC- SA PATIENTS-FEVER ONLY GT PRN (15:31)
--- NOTE | 2019-12-15 19:05 | NUR ---
NO A/R TO IV MERIPENEM.
[2019-12-15 20:02] VITALS: BP 108/46
[2019-12-15] MEDS: MULTIVIT, IRON, MIN NO. 8, FA TABLET GT SCH (21:35)
[2019-12-15] MEDS: ASCORBIC ACID 500 MG TABLET GT SCH (21:35)
[2019-12-15] MEDS: SIMVASTATIN 10 MG TABLET GT SCH (21:35)
[2019-12-15] MEDS: ESTROGENS,CONJU VAGINAL CREAM 42.5 GM TUBE VG SCH (21:36)
[2019-12-15] MEDS: ACETAMINOPHEN 650 MG/20 ML UDC- SA PATIENTS-PAIN ONLY GT PRN (23:40)
[2019-12-16] MEDS: BACLOFEN 10 MG TABLET GT SCH ×4 (00:41→17:36)
[2019-12-16] MEDS: ALBUTEROL SULFATE 2.5 MG/3 ML NEBU NEB SCH ×6 (02:49→23:01)
[2019-12-16] MEDS: IPRATROPIUM BROMIDE 0.5 MG/2.5 ML NEBU NEB SCH ×6 (02:49→23:01)
[2019-12-16] MEDS: MEROPENEM 1 G in IV NORMAL SALINE 100 ML IV SCH ×3 (03:39→20:09)
--- NOTE | 2019-12-16 05:43 | NUR ---
PT ON ATB IVPB MEROPENEM 1GM X5 DAYS FOR FEVER. PT STILL HAS EPISODE OF FEVER COOLING MEASURES WITH ICE PACK WAS GIVEN VIA AXILLARY BILATERAL AND TEMPERATURE WAS CHECK Q 2 HRS.GT FLASHING ORDER.IV SITE ON (R) HAND KEEP CLEAN AND DRY.
[2019-12-16] MEDS: OMEPRAZOLE 20 MG CAPSULE.DR GT SCH (06:20)
[2019-12-16] MEDS: PROTEIN SUPPLEMENT (PROSTAT) 30 ML LIQUID GT SCH ×3 (06:20→22:06)
[2019-12-16] MEDS: ARGININE/GLUTAMINE/CALCIUM BMB 1 EACH POWD.PACK GT SCH ×2 (06:20→17:36)
[2019-12-16 07:42] VITALS: BP 101/50
[2019-12-16] MEDS: HYDROGEN PEROXIDE 3% 118 ML BOTTLE TP SCH ×2 (08:09→21:00)
[2019-12-16] MEDS: COD LIVER OIL/ZINC OXIDE OINT 113 GM TUBE TP SCH ×2 (08:22→20:39)
[2019-12-16] MEDS: SODIUM HYPOCHLORITE 0.125% (QUARTER STRENGTH) 473 ML BOTTLE TP SCH ×2 (08:22→20:39)
[2019-12-16] MEDS: THERAHONEY GEL 1.5 OZ TUBE TOP SCH ×2 (08:22→20:39)
[2019-12-16] MEDS: SERTRALINE 25 MG GT SCH (08:22)
[2019-12-16] MEDS: ACIDOPHILUS/BULGARICUS CHEW TAB GT SCH ×2 (08:22→20:39)
[2019-12-16] MEDS: ACETAMINOPHEN 650 MG/20.3 ML LIQUID UDC GT SCH (08:22)
--- NOTE | 2019-12-16 15:00 | NUR ---
SEEN AND EXAMINED BY HALEY Dorsey) AND GAY AT THIS TIME BUT STATED THAT SHE WAS GOING TO ORDER ANOTHER UA C&S .
--- NOTE | 2019-12-16 19:00 | NUR ---
ENDORSED TO NOC SHIFT TO F/U WITH DR. STANFORD IN AM TO ASK HIM IF HE CAN ORDER A MEDICATION TO GET RID OF PT'S KIDNEY STONES.
[2019-12-16 20:03] VITALS: BP 109/45
[2019-12-16] MEDS: MULTIVIT, IRON, MIN NO. 8, FA TABLET GT SCH (20:39)
[2019-12-16] MEDS: SIMVASTATIN 10 MG TABLET GT SCH (20:39)
[2019-12-16] MEDS: ASCORBIC ACID 500 MG TABLET GT SCH (20:39)
[2019-12-16] MEDS: ESTROGENS,CONJU VAGINAL CREAM 42.5 GM TUBE VG SCH (20:40)
[2019-12-17] MEDS: BACLOFEN 10 MG TABLET GT SCH ×4 (00:51→17:40)
[2019-12-17] MEDS: ALBUTEROL SULFATE 2.5 MG/3 ML NEBU NEB SCH ×6 (02:40→23:15)
[2019-12-17] MEDS: IPRATROPIUM BROMIDE 0.5 MG/2.5 ML NEBU NEB SCH ×6 (02:40→23:15)
[2019-12-17] MEDS: MEROPENEM 1 G in IV NORMAL SALINE 100 ML IV SCH ×3 (03:49→20:34)
--- NOTE | 2019-12-17 04:33 | NUR ---
continue on merrem 1gm for fever, no adverse reaction noted.
[2019-12-17 04:43] LABS: *BILIRUBIN,URIN NEGATIVE (NEGATIVE); *BLOOD, URINE 2+ (NEGATIVE); *CLARITY,URINE SLIGHTLY CLOUDY (CLEAR); *COLOR,URINE YELLOW (YELLOW); *KETONES,URINE NEGATIVE (NEGATIVE); *UROBILINOGEN,URINE 0.2 E.U./dl (NORMAL); LEUKOCYTE ESTERASE ,URINE 2+ (NEGATIVE); NITRITE, URINE NEGATIVE (NEGATIVE); UGLUCOSE NEGATIVE (NEGATIVE)
[2019-12-17] MEDS: PROTEIN SUPPLEMENT (PROSTAT) 30 ML LIQUID GT SCH ×3 (06:10→21:49)
[2019-12-17] MEDS: ARGININE/GLUTAMINE/CALCIUM BMB 1 EACH POWD.PACK GT SCH ×2 (06:10→17:40)
[2019-12-17] MEDS: OMEPRAZOLE 20 MG CAPSULE.DR GT SCH (06:10)
[2019-12-17 07:28] VITALS: BP 105/51
[2019-12-17] MEDS: SERTRALINE 25 MG GT SCH (08:38)
[2019-12-17] MEDS: ACETAMINOPHEN 650 MG/20.3 ML LIQUID UDC GT SCH (08:38)
[2019-12-17] MEDS: THERAHONEY GEL 1.5 OZ TUBE TOP SCH ×2 (08:38→21:49)
[2019-12-17] MEDS: ACIDOPHILUS/BULGARICUS CHEW TAB GT SCH ×2 (08:38→21:48)
[2019-12-17] MEDS: COD LIVER OIL/ZINC OXIDE OINT 113 GM TUBE TP SCH ×2 (08:39→21:49)
[2019-12-17] MEDS: SODIUM HYPOCHLORITE 0.125% (QUARTER STRENGTH) 473 ML BOTTLE TP SCH ×2 (08:39→21:49)
[2019-12-17] MEDS: HYDROGEN PEROXIDE 3% 118 ML BOTTLE TP SCH ×2 (09:00→11:41)
[2019-12-17 11:27] LABS: BACTERIA,URINE FEW /HPF (NONE SEEN); SQUAMOUS EPITHELIAL CELL,UR FEW /HPF (NONE SEEN); WBC,URINE 50-80 /HPF (0-3); YEAST,URINE RARE /HPF (NONE SEEN)
[2019-12-17 11:28] LABS: CALCIUM OXALATE CRYSTALS,UR RARE /HPF (NONE SEEN)
[2019-12-17 19:53] VITALS: BP 96/45
[2019-12-17] MEDS: ASCORBIC ACID 500 MG TABLET GT SCH (21:48)
[2019-12-17] MEDS: MULTIVIT, IRON, MIN NO. 8, FA TABLET GT SCH (21:48)
[2019-12-17] MEDS: SIMVASTATIN 10 MG TABLET GT SCH (21:48)
[2019-12-17] MEDS: ESTROGENS,CONJU VAGINAL CREAM 42.5 GM TUBE VG SCH (21:49)
[2019-12-18] MEDS: BACLOFEN 10 MG TABLET GT SCH ×4 (00:13→17:46)
[2019-12-18] MEDS: ALBUTEROL SULFATE 2.5 MG/3 ML NEBU NEB SCH ×6 (03:22→23:22)
[2019-12-18] MEDS: IPRATROPIUM BROMIDE 0.5 MG/2.5 ML NEBU NEB SCH ×6 (03:22→23:22)
[2019-12-18] MEDS: MEROPENEM 1 G in IV NORMAL SALINE 100 ML IV SCH ×3 (04:59→20:37)
[2019-12-18] MEDS: ARGININE/GLUTAMINE/CALCIUM BMB 1 EACH POWD.PACK GT SCH ×2 (05:57→17:46)
[2019-12-18] MEDS: PROTEIN SUPPLEMENT (PROSTAT) 30 ML LIQUID GT SCH ×3 (05:57→21:56)
[2019-12-18] MEDS: OMEPRAZOLE 20 MG CAPSULE.DR GT SCH (05:57)
--- NOTE | 2019-12-18 06:57 | NUR ---
PT CONTINUE MEROPENAM 1 GM X5 DAYS FOR FEVER. IV SITE ON (R) HAND KEEP CLEAN AND DRY ON IV SITE.
[2019-12-18 07:47] VITALS: BP 98/48
[2019-12-18] MEDS: HYDROGEN PEROXIDE 3% 118 ML BOTTLE TP SCH ×2 (08:18→21:00)
[2019-12-18] MEDS: ACIDOPHILUS/BULGARICUS CHEW TAB GT SCH ×2 (08:42→21:56)
[2019-12-18] MEDS: ACETAMINOPHEN 650 MG/20.3 ML LIQUID UDC GT SCH (08:42)
[2019-12-18] MEDS: THERAHONEY GEL 1.5 OZ TUBE TOP SCH ×2 (08:43→21:56)
[2019-12-18] MEDS: SERTRALINE 25 MG GT SCH (08:43)
[2019-12-18] MEDS: SODIUM HYPOCHLORITE 0.125% (QUARTER STRENGTH) 473 ML BOTTLE TP SCH ×2 (08:43→21:56)
[2019-12-18] MEDS: COD LIVER OIL/ZINC OXIDE OINT 113 GM TUBE TP SCH ×2 (08:44→21:56)
--- NOTE | 2019-12-18 17:00 | NUR ---
Continue on IVATB Merren 1 GM for fever,no adverse reaction noted,Iv site on the R arm intact.
[2019-12-18 20:06] VITALS: BP 100/44
[2019-12-18] MEDS: MULTIVIT, IRON, MIN NO. 8, FA TABLET GT SCH (21:56)
[2019-12-18] MEDS: ESTROGENS,CONJU VAGINAL CREAM 42.5 GM TUBE VG SCH (21:56)
[2019-12-18] MEDS: SIMVASTATIN 10 MG TABLET GT SCH (21:56)
[2019-12-18] MEDS: ASCORBIC ACID 500 MG TABLET GT SCH (21:56)
[2019-12-19] MEDS: BACLOFEN 10 MG TABLET GT SCH ×4 (00:47→17:14)
[2019-12-19] MEDS: ALBUTEROL SULFATE 2.5 MG/3 ML NEBU NEB SCH ×6 (03:22→23:38)
[2019-12-19] MEDS: IPRATROPIUM BROMIDE 0.5 MG/2.5 ML NEBU NEB SCH ×6 (03:22→23:38)
[2019-12-19] MEDS: MEROPENEM 1 G in IV NORMAL SALINE 100 ML IV SCH ×3 (04:00→20:00)
[2019-12-19] MEDS: OMEPRAZOLE 20 MG CAPSULE.DR GT SCH (05:53)
[2019-12-19] MEDS: ARGININE/GLUTAMINE/CALCIUM BMB 1 EACH POWD.PACK GT SCH ×2 (05:53→17:13)
[2019-12-19] MEDS: PROTEIN SUPPLEMENT (PROSTAT) 30 ML LIQUID GT SCH ×3 (05:53→21:55)
[2019-12-19 07:45] VITALS: BP 111/63
[2019-12-19] MEDS: ACETAMINOPHEN 650 MG/20.3 ML LIQUID UDC GT SCH (08:49)
[2019-12-19] MEDS: ACIDOPHILUS/BULGARICUS CHEW TAB GT SCH ×2 (08:49→21:54)
[2019-12-19] MEDS: SERTRALINE 25 MG GT SCH (08:50)
[2019-12-19] MEDS: SODIUM HYPOCHLORITE 0.125% (QUARTER STRENGTH) 473 ML BOTTLE TP SCH ×2 (08:50→21:55)
[2019-12-19] MEDS: COD LIVER OIL/ZINC OXIDE OINT 113 GM TUBE TP SCH ×2 (08:50→21:55)
[2019-12-19] MEDS: THERAHONEY GEL 1.5 OZ TUBE TOP SCH ×2 (08:50→21:55)
[2019-12-19] MEDS: HYDROGEN PEROXIDE 3% 118 ML BOTTLE TP SCH ×2 (09:34→21:46)
--- NOTE | 2019-12-19 18:54 | NUR ---
NOTIFIED RESPONSIBLE DEMOCRAT, JENNIFER GARCIA, OF COVID 19 POSSIBLE EXPOSURE AND TESTING PLAN. RESPONSIBLE DEMOCRAT VERBALIZED UNDERSTANDING.
[2019-12-19 20:26] VITALS: BP 101/45
[2019-12-19] MEDS: ASCORBIC ACID 500 MG TABLET GT SCH (21:54)
[2019-12-19] MEDS: MULTIVIT, IRON, MIN NO. 8, FA TABLET GT SCH (21:54)
[2019-12-19] MEDS: SIMVASTATIN 10 MG TABLET GT SCH (21:54)
[2019-12-19] MEDS: ESTROGENS,CONJU VAGINAL CREAM 42.5 GM TUBE VG SCH (21:55)
--- NOTE | 2019-12-20 00:21 | NUR ---
Patient is alert and oriented, remains on Merrem IV for fever, no adverse reactions noted. No signs of any respiratory distress noted. Kept clean and comfortable.
[2019-12-20] MEDS: BACLOFEN 10 MG TABLET GT SCH ×5 (00:22→23:11)
--- NOTE | 2019-12-20 02:00 | NUR ---
New order for COVID-19 test per [facility] COVID-19 requirement.
[2019-12-20] MEDS: IPRATROPIUM BROMIDE 0.5 MG/2.5 ML NEBU NEB SCH ×6 (02:46→23:18)
[2019-12-20] MEDS: ALBUTEROL SULFATE 2.5 MG/3 ML NEBU NEB SCH ×6 (02:46→23:18)
[2019-12-20] MEDS: MEROPENEM 1 G in IV NORMAL SALINE 100 ML IV SCH (04:00)
[2019-12-20] MEDS: OMEPRAZOLE 20 MG CAPSULE.DR GT SCH (05:39)
[2019-12-20] MEDS: PROTEIN SUPPLEMENT (PROSTAT) 30 ML LIQUID GT SCH ×3 (05:39→21:10)
[2019-12-20] MEDS: ARGININE/GLUTAMINE/CALCIUM BMB 1 EACH POWD.PACK GT SCH ×2 (05:39→18:03)
[2019-12-20 07:52] VITALS: BP 113/59
[2019-12-20] MEDS: ACETAMINOPHEN 650 MG/20.3 ML LIQUID UDC GT SCH (08:55)
[2019-12-20] MEDS: HYDROGEN PEROXIDE 3% 118 ML BOTTLE TP SCH ×2 (09:00→21:40)
[2019-12-20] MEDS: SERTRALINE 25 MG GT SCH (09:24)
[2019-12-20] MEDS: SODIUM HYPOCHLORITE 0.125% (QUARTER STRENGTH) 473 ML BOTTLE TP SCH ×2 (09:24→21:10)
[2019-12-20] MEDS: THERAHONEY GEL 1.5 OZ TUBE TOP SCH ×2 (09:24→21:10)
[2019-12-20] MEDS: ACIDOPHILUS/BULGARICUS CHEW TAB GT SCH ×2 (09:24→21:10)
[2019-12-20] MEDS: COD LIVER OIL/ZINC OXIDE OINT 113 GM TUBE TP SCH ×2 (09:25→21:10)
[2019-12-20 20:01] VITALS: BP 101/44
[2019-12-20] MEDS: MULTIVIT, IRON, MIN NO. 8, FA TABLET GT SCH (21:10)
[2019-12-20] MEDS: SIMVASTATIN 10 MG TABLET GT SCH (21:10)
[2019-12-20] MEDS: ESTROGENS,CONJU VAGINAL CREAM 42.5 GM TUBE VG SCH (21:10)
[2019-12-20] MEDS: ASCORBIC ACID 500 MG TABLET GT SCH (21:10)
[2019-12-20] MEDS: TEMAZEPAM 7.5 MG CAPSULE GT PRN (21:20)
[2019-12-21] MEDS: IPRATROPIUM BROMIDE 0.5 MG/2.5 ML NEBU NEB SCH ×6 (02:51→23:11)
[2019-12-21] MEDS: ALBUTEROL SULFATE 2.5 MG/3 ML NEBU NEB SCH ×6 (02:52→23:11)
[2019-12-21] MEDS: JEVITY 1.2 1000 ML LIQUID GT PRN (03:41)
[2019-12-21] MEDS: OMEPRAZOLE 20 MG CAPSULE.DR GT SCH (05:39)
[2019-12-21] MEDS: PROTEIN SUPPLEMENT (PROSTAT) 30 ML LIQUID GT SCH ×3 (05:39→21:20)
[2019-12-21] MEDS: ARGININE/GLUTAMINE/CALCIUM BMB 1 EACH POWD.PACK GT SCH ×2 (05:39→18:43)
[2019-12-21] MEDS: BACLOFEN 10 MG TABLET GT SCH ×4 (05:39→23:21)
[2019-12-21 08:00] VITALS: BP 95/44
[2019-12-21] MEDS: ACETAMINOPHEN 650 MG/20.3 ML LIQUID UDC GT SCH (08:41)
[2019-12-21] MEDS: ACIDOPHILUS/BULGARICUS CHEW TAB GT SCH ×2 (08:48→21:20)
[2019-12-21] MEDS: SERTRALINE 25 MG GT SCH (08:49)
[2019-12-21] MEDS: COD LIVER OIL/ZINC OXIDE OINT 113 GM TUBE TP SCH ×2 (08:49→21:20)
[2019-12-21] MEDS: SODIUM HYPOCHLORITE 0.125% (QUARTER STRENGTH) 473 ML BOTTLE TP SCH ×2 (08:49→21:20)
[2019-12-21] MEDS: THERAHONEY GEL 1.5 OZ TUBE TOP SCH ×2 (08:49→21:20)
[2019-12-21] MEDS: HYDROGEN PEROXIDE 3% 118 ML BOTTLE TP SCH ×2 (09:40→21:03)
--- NOTE | 2019-12-21 18:38 | NUR ---
Laboratory call with results,Covid 19 negative.
[2019-12-21 20:38] VITALS: BP 99/67
[2019-12-21] MEDS: ASCORBIC ACID 500 MG TABLET GT SCH (21:20)
[2019-12-21] MEDS: MULTIVIT, IRON, MIN NO. 8, FA TABLET GT SCH (21:20)
[2019-12-21] MEDS: SIMVASTATIN 10 MG TABLET GT SCH (21:20)
[2019-12-21] MEDS: ESTROGENS,CONJU VAGINAL CREAM 42.5 GM TUBE VG SCH (21:20)
[2019-12-22] MEDS: JEVITY 1.2 1000 ML LIQUID GT PRN (02:16)
[2019-12-22] MEDS: ALBUTEROL SULFATE 2.5 MG/3 ML NEBU NEB SCH ×6 (02:56→22:40)
[2019-12-22] MEDS: IPRATROPIUM BROMIDE 0.5 MG/2.5 ML NEBU NEB SCH ×6 (02:56→22:40)
[2019-12-22] MEDS: PROTEIN SUPPLEMENT (PROSTAT) 30 ML LIQUID GT SCH ×3 (05:39→21:15)
[2019-12-22] MEDS: ARGININE/GLUTAMINE/CALCIUM BMB 1 EACH POWD.PACK GT SCH ×2 (05:39→17:23)
[2019-12-22] MEDS: BACLOFEN 10 MG TABLET GT SCH ×4 (05:39→23:15)
[2019-12-22] MEDS: OMEPRAZOLE 20 MG CAPSULE.DR GT SCH (05:39)
[2019-12-22 07:45] VITALS: BP 112/44
--- NOTE | 2019-12-22 08:00 | NUR ---
PT was aware of the Covid 19 results are negative.
[2019-12-22] MEDS: SODIUM HYPOCHLORITE 0.125% (QUARTER STRENGTH) 473 ML BOTTLE TP SCH ×2 (08:18→21:15)
[2019-12-22] MEDS: ACIDOPHILUS/BULGARICUS CHEW TAB GT SCH ×2 (08:18→21:15)
[2019-12-22] MEDS: COD LIVER OIL/ZINC OXIDE OINT 113 GM TUBE TP SCH ×2 (08:18→21:15)
[2019-12-22] MEDS: ACETAMINOPHEN 650 MG/20.3 ML LIQUID UDC GT SCH (08:18)
[2019-12-22] MEDS: THERAHONEY GEL 1.5 OZ TUBE TOP SCH ×2 (08:18→21:15)
[2019-12-22] MEDS: SERTRALINE 25 MG GT SCH (08:18)
[2019-12-22] MEDS: HYDROGEN PEROXIDE 3% 118 ML BOTTLE TP SCH ×2 (09:15→21:23)
[2019-12-22 20:08] VITALS: BP 101/50
[2019-12-22] MEDS: ESTROGENS,CONJU VAGINAL CREAM 42.5 GM TUBE VG SCH (21:15)
[2019-12-22] MEDS: MULTIVIT, IRON, MIN NO. 8, FA TABLET GT SCH (21:15)
[2019-12-22] MEDS: SIMVASTATIN 10 MG TABLET GT SCH (21:15)
[2019-12-22] MEDS: ASCORBIC ACID 500 MG TABLET GT SCH (21:15)
[2019-12-23] MEDS: IPRATROPIUM BROMIDE 0.5 MG/2.5 ML NEBU NEB SCH ×6 (02:43→23:27)
[2019-12-23] MEDS: ALBUTEROL SULFATE 2.5 MG/3 ML NEBU NEB SCH ×6 (02:43→23:27)
[2019-12-23] MEDS: JEVITY 1.2 1000 ML LIQUID GT PRN (03:11)
[2019-12-23] MEDS: OMEPRAZOLE 20 MG CAPSULE.DR GT SCH (05:13)
[2019-12-23] MEDS: ARGININE/GLUTAMINE/CALCIUM BMB 1 EACH POWD.PACK GT SCH ×2 (05:13→17:26)
[2019-12-23] MEDS: PROTEIN SUPPLEMENT (PROSTAT) 30 ML LIQUID GT SCH ×3 (05:13→21:55)
[2019-12-23] MEDS: BACLOFEN 10 MG TABLET GT SCH ×4 (05:13→23:10)
[2019-12-23] MEDS: HYDROGEN PEROXIDE 3% 118 ML BOTTLE TP SCH ×2 (07:14→21:00)
[2019-12-23 07:41] VITALS: BP 112/69
[2019-12-23] MEDS: ACETAMINOPHEN 650 MG/20.3 ML LIQUID UDC GT SCH (08:43)
[2019-12-23] MEDS: ACIDOPHILUS/BULGARICUS CHEW TAB GT SCH ×2 (08:43→21:54)
[2019-12-23] MEDS: SODIUM HYPOCHLORITE 0.125% (QUARTER STRENGTH) 473 ML BOTTLE TP SCH ×2 (08:44→21:00)
[2019-12-23] MEDS: THERAHONEY GEL 1.5 OZ TUBE TOP SCH ×2 (08:44→21:00)
[2019-12-23] MEDS: COD LIVER OIL/ZINC OXIDE OINT 113 GM TUBE TP SCH ×2 (08:44→21:00)
[2019-12-23] MEDS: SERTRALINE 25 MG GT SCH (08:44)
[2019-12-23 20:21] VITALS: BP 107/48
[2019-12-23] MEDS: MULTIVIT, IRON, MIN NO. 8, FA TABLET GT SCH (21:54)
[2019-12-23] MEDS: ASCORBIC ACID 500 MG TABLET GT SCH (21:54)
[2019-12-23] MEDS: ESTROGENS,CONJU VAGINAL CREAM 42.5 GM TUBE VG SCH (21:56)
[2019-12-23] MEDS: SIMVASTATIN 10 MG TABLET GT SCH (21:56)
[2019-12-24] MEDS: ALBUTEROL SULFATE 2.5 MG/3 ML NEBU NEB SCH ×6 (03:20→23:49)
[2019-12-24] MEDS: IPRATROPIUM BROMIDE 0.5 MG/2.5 ML NEBU NEB SCH ×6 (03:20→23:00)
[2019-12-24] MEDS: PROTEIN SUPPLEMENT (PROSTAT) 30 ML LIQUID GT SCH ×3 (05:32→21:54)
[2019-12-24] MEDS: BACLOFEN 10 MG TABLET GT SCH ×3 (05:32→17:10)
[2019-12-24] MEDS: ARGININE/GLUTAMINE/CALCIUM BMB 1 EACH POWD.PACK GT SCH ×2 (05:32→17:10)
[2019-12-24] MEDS: OMEPRAZOLE 20 MG CAPSULE.DR GT SCH (05:32)
[2019-12-24 07:34] VITALS: BP 112/58
[2019-12-24] MEDS: SODIUM HYPOCHLORITE 0.125% (QUARTER STRENGTH) 473 ML BOTTLE TP SCH ×2 (08:07→21:54)
[2019-12-24] MEDS: ACETAMINOPHEN 650 MG/20.3 ML LIQUID UDC GT SCH (08:07)
[2019-12-24] MEDS: ACIDOPHILUS/BULGARICUS CHEW TAB GT SCH ×2 (08:07→21:51)
[2019-12-24] MEDS: THERAHONEY GEL 1.5 OZ TUBE TOP SCH ×2 (08:07→21:54)
[2019-12-24] MEDS: SERTRALINE 25 MG GT SCH (08:07)
[2019-12-24] MEDS: COD LIVER OIL/ZINC OXIDE OINT 113 GM TUBE TP SCH ×2 (08:07→21:54)
[2019-12-24] MEDS: HYDROGEN PEROXIDE 3% 118 ML BOTTLE TP SCH ×2 (09:50→21:02)
[2019-12-24] MEDS: JEVITY 1.2 1000 ML LIQUID GT PRN (14:45)
--- NOTE | 2019-12-24 17:06 | NUR ---
INTERDISCIPLINARY PLAN OF CARE CONFERENCE was held today. Patient's daughter Ludmila was not available to participate in the meeting. Dr. Sylvester and the Interdisciplinary team reviewed the current plan of care in detail. RN reported on patient's current medical condition, and ongoing wound treatment. No major changes in condition at this time. See RN IDT conference notes. See also all other disciplines IDT notes and physician's progress notes for additional details.
[2019-12-24 20:19] VITALS: BP 107/50
[2019-12-24] MEDS: MULTIVIT, IRON, MIN NO. 8, FA TABLET GT SCH (21:51)
[2019-12-24] MEDS: ASCORBIC ACID 500 MG TABLET GT SCH (21:52)
[2019-12-24] MEDS: SIMVASTATIN 10 MG TABLET GT SCH (21:52)
[2019-12-24] MEDS: ESTROGENS,CONJU VAGINAL CREAM 42.5 GM TUBE VG SCH (21:54)
[2019-12-24] MEDS: TEMAZEPAM 7.5 MG CAPSULE GT PRN (22:01)
[2019-12-25] MEDS: BACLOFEN 10 MG TABLET GT SCH ×4 (00:37→18:19)
[2019-12-25] MEDS: IPRATROPIUM BROMIDE 0.5 MG/2.5 ML NEBU NEB SCH ×6 (03:12→22:47)
[2019-12-25] MEDS: ALBUTEROL SULFATE 2.5 MG/3 ML NEBU NEB SCH ×6 (03:12→22:47)
[2019-12-25] MEDS: PROTEIN SUPPLEMENT (PROSTAT) 30 ML LIQUID GT SCH ×3 (05:47→21:53)
[2019-12-25] MEDS: OMEPRAZOLE 20 MG CAPSULE.DR GT SCH (05:47)
[2019-12-25] MEDS: ARGININE/GLUTAMINE/CALCIUM BMB 1 EACH POWD.PACK GT SCH ×2 (05:47→18:19)
[2019-12-25] MEDS: HYDROGEN PEROXIDE 3% 118 ML BOTTLE TP SCH ×2 (08:37→21:06)
[2019-12-25] MEDS: SODIUM HYPOCHLORITE 0.125% (QUARTER STRENGTH) 473 ML BOTTLE TP SCH ×2 (09:07→21:53)
[2019-12-25] MEDS: COD LIVER OIL/ZINC OXIDE OINT 113 GM TUBE TP SCH ×2 (09:07→21:53)
[2019-12-25] MEDS: SERTRALINE 25 MG GT SCH (09:07)
[2019-12-25] MEDS: THERAHONEY GEL 1.5 OZ TUBE TOP SCH ×2 (09:07→21:52)
[2019-12-25] MEDS: ACIDOPHILUS/BULGARICUS CHEW TAB GT SCH ×2 (09:07→21:52)
[2019-12-25] MEDS: ACETAMINOPHEN 650 MG/20.3 ML LIQUID UDC GT SCH (09:07)
[2019-12-25 10:00] VITALS: BP 112/49
--- NOTE | 2019-12-25 15:00 | NUR ---
Called and spoke to Ludmila pt's daughter made aware of the 2nd round of testing for covid19 to be done this week.
--- NOTE | 2019-12-25 16:51 | NUR ---
New order for COVID-19 test per [facility] COVID-19 requirement.
[2019-12-25 20:00] VITALS: BP 103/49
[2019-12-25] MEDS: SIMVASTATIN 10 MG TABLET GT SCH (21:52)
[2019-12-25] MEDS: MULTIVIT, IRON, MIN NO. 8, FA TABLET GT SCH (21:52)
[2019-12-25] MEDS: ASCORBIC ACID 500 MG TABLET GT SCH (21:52)
[2019-12-25] MEDS: ESTROGENS,CONJU VAGINAL CREAM 42.5 GM TUBE VG SCH (21:53)
[2019-12-25] MEDS: TEMAZEPAM 7.5 MG CAPSULE GT PRN (22:00)
[2019-12-26] MEDS: BACLOFEN 10 MG TABLET GT SCH ×4 (00:28→17:02)
[2019-12-26] MEDS: ALBUTEROL SULFATE 2.5 MG/3 ML NEBU NEB SCH ×6 (03:10→22:35)
[2019-12-26] MEDS: IPRATROPIUM BROMIDE 0.5 MG/2.5 ML NEBU NEB SCH ×6 (03:10→22:35)
[2019-12-26] MEDS: ARGININE/GLUTAMINE/CALCIUM BMB 1 EACH POWD.PACK GT SCH ×2 (05:20→17:02)
[2019-12-26] MEDS: PROTEIN SUPPLEMENT (PROSTAT) 30 ML LIQUID GT SCH ×3 (05:20→21:58)
[2019-12-26] MEDS: OMEPRAZOLE 20 MG CAPSULE.DR GT SCH (05:20)
[2019-12-26] MEDS: HYDROGEN PEROXIDE 3% 118 ML BOTTLE TP SCH ×2 (07:39→19:19)
[2019-12-26 07:45] VITALS: BP 98/69
[2019-12-26] MEDS: COD LIVER OIL/ZINC OXIDE OINT 113 GM TUBE TP SCH ×2 (08:32→21:58)
[2019-12-26] MEDS: SODIUM HYPOCHLORITE 0.125% (QUARTER STRENGTH) 473 ML BOTTLE TP SCH ×2 (08:32→21:58)
[2019-12-26] MEDS: ACETAMINOPHEN 650 MG/20.3 ML LIQUID UDC GT SCH (08:32)
[2019-12-26] MEDS: SERTRALINE 25 MG GT SCH (08:32)
[2019-12-26] MEDS: THERAHONEY GEL 1.5 OZ TUBE TOP SCH ×2 (08:32→21:57)
[2019-12-26] MEDS: ACIDOPHILUS/BULGARICUS CHEW TAB GT SCH ×2 (08:32→21:57)
--- NOTE | 2019-12-26 19:11 | NUR ---
PT'S DTR. RAKEL GARCIA AWARE AND IN AGREEMENT OF COVID 19 TESTING TOMORROW.
[2019-12-26 20:18] VITALS: BP 107/45
[2019-12-26] MEDS: ASCORBIC ACID 500 MG TABLET GT SCH (21:57)
[2019-12-26] MEDS: SIMVASTATIN 10 MG TABLET GT SCH (21:57)
[2019-12-26] MEDS: MULTIVIT, IRON, MIN NO. 8, FA TABLET GT SCH (21:57)
[2019-12-26] MEDS: ESTROGENS,CONJU VAGINAL CREAM 42.5 GM TUBE VG SCH (21:58)
[2019-12-26] MEDS: TEMAZEPAM 7.5 MG CAPSULE GT PRN (22:00)
[2019-12-27] MEDS: BACLOFEN 10 MG TABLET GT SCH ×4 (00:25→17:40)
[2019-12-27] MEDS: IPRATROPIUM BROMIDE 0.5 MG/2.5 ML NEBU NEB SCH ×6 (02:06→23:13)
[2019-12-27] MEDS: ALBUTEROL SULFATE 2.5 MG/3 ML NEBU NEB SCH ×6 (02:07→23:13)
[2019-12-27] MEDS: ARGININE/GLUTAMINE/CALCIUM BMB 1 EACH POWD.PACK GT SCH ×2 (05:40→17:40)
[2019-12-27] MEDS: OMEPRAZOLE 20 MG CAPSULE.DR GT SCH (05:41)
[2019-12-27] MEDS: PROTEIN SUPPLEMENT (PROSTAT) 30 ML LIQUID GT SCH ×3 (05:41→22:28)
[2019-12-27 08:27] VITALS: BP 101/66
[2019-12-27] MEDS: SODIUM HYPOCHLORITE 0.125% (QUARTER STRENGTH) 473 ML BOTTLE TP SCH ×2 (08:52→21:00)
[2019-12-27] MEDS: ACETAMINOPHEN 650 MG/20.3 ML LIQUID UDC GT SCH (08:52)
[2019-12-27] MEDS: ACIDOPHILUS/BULGARICUS CHEW TAB GT SCH ×2 (08:52→21:00)
[2019-12-27] MEDS: SERTRALINE 25 MG GT SCH (08:52)
[2019-12-27] MEDS: COD LIVER OIL/ZINC OXIDE OINT 113 GM TUBE TP SCH ×2 (08:52→21:00)
[2019-12-27] MEDS: THERAHONEY GEL 1.5 OZ TUBE TOP SCH ×2 (08:52→21:00)
[2019-12-27] MEDS: HYDROGEN PEROXIDE 3% 118 ML BOTTLE TP SCH ×2 (09:37→21:58)
--- NOTE | 2019-12-27 10:43 | NUR ---
Patient's daughter Ludmila emailed this SW, requesting a list of personal care items be ordered for the patient from [employer]. SW submitted the order, via fax, to [employer] (fax # [phone]; tel # [phone]). SW will wait for order invoice from [employer], and will then forward the invoice to the accounting department for payment (patient is a hospital trust account).
--- NOTE | 2019-12-27 12:45 | NUR ---
DOROTHY received a confirmation email from [employer] confirming receipt of the order that was faxed to them earlier today (see previous SS note). Included in this email was the invoice for the purchase. DOROTHY forwarded the email to Fabricio Leone in the accounting department.
[2019-12-27] MEDS: JEVITY 1.2 1000 ML LIQUID GT PRN (17:40)
[2019-12-27] MEDS: SIMVASTATIN 10 MG TABLET GT SCH (21:00)
[2019-12-27] MEDS: ASCORBIC ACID 500 MG TABLET GT SCH (21:00)
[2019-12-27] MEDS: ESTROGENS,CONJU VAGINAL CREAM 42.5 GM TUBE VG SCH (21:00)
[2019-12-27] MEDS: MULTIVIT, IRON, MIN NO. 8, FA TABLET GT SCH (21:00)
[2019-12-27 22:00] VITALS: BP 110/58
[2019-12-28] MEDS: BACLOFEN 10 MG TABLET GT SCH ×5 (00:48→23:04)
[2019-12-28] MEDS: IPRATROPIUM BROMIDE 0.5 MG/2.5 ML NEBU NEB SCH ×6 (02:42→22:42)
[2019-12-28] MEDS: ALBUTEROL SULFATE 2.5 MG/3 ML NEBU NEB SCH ×6 (02:42→22:42)
[2019-12-28] MEDS: ARGININE/GLUTAMINE/CALCIUM BMB 1 EACH POWD.PACK GT SCH ×2 (06:18→17:20)
[2019-12-28] MEDS: OMEPRAZOLE 20 MG CAPSULE.DR GT SCH (06:18)
[2019-12-28] MEDS: PROTEIN SUPPLEMENT (PROSTAT) 30 ML LIQUID GT SCH ×3 (06:19→22:06)
[2019-12-28 07:39] VITALS: BP 104/60
[2019-12-28] MEDS: HYDROGEN PEROXIDE 3% 118 ML BOTTLE TP SCH ×2 (08:02→20:02)
[2019-12-28] MEDS: ACETAMINOPHEN 650 MG/20.3 ML LIQUID UDC GT SCH (08:23)
[2019-12-28] MEDS: ACIDOPHILUS/BULGARICUS CHEW TAB GT SCH ×2 (08:23→20:01)
[2019-12-28] MEDS: THERAHONEY GEL 1.5 OZ TUBE TOP SCH ×2 (08:24→20:02)
[2019-12-28] MEDS: COD LIVER OIL/ZINC OXIDE OINT 113 GM TUBE TP SCH ×2 (08:24→20:02)
[2019-12-28] MEDS: SERTRALINE 25 MG GT SCH (08:24)
[2019-12-28] MEDS: SODIUM HYPOCHLORITE 0.125% (QUARTER STRENGTH) 473 ML BOTTLE TP SCH ×2 (08:24→20:02)
[2019-12-28 14:41] VITALS: BP 100/50
--- NOTE | 2019-12-28 14:52 | NUR ---
DR. TURCIOS WAS CALLED RE:TEMP 101F.
--- NOTE | 2019-12-28 15:17 | NUR ---
DR. TURCIOS CALLED BACK AND AWARE OF TEMP. 101F AND WITH NEW ORDERS CARRIED OUT.
--- NOTE | 2019-12-28 15:20 | NUR ---
LEFT HAND PERIPHERAL LINE STARTED AT FIRST ATTEMPT WITH GOOD BLOOD RETURN.
--- NOTE | 2019-12-28 15:20 | NUR ---
PT'S DTR.RAKEL GARCIA IN AGREEMENT WITH ORDERS AND AWARE OF PT'S CONDITION .
[2019-12-28] MEDS: ACETAMINOPHEN 650 MG/20 ML UDC- SA PATIENTS-FEVER ONLY GT PRN (17:20)
[2019-12-28 17:31] LABS: *BILIRUBIN,URIN NEGATIVE (NEGATIVE); *BLOOD, URINE 3+ (NEGATIVE); *CLARITY,URINE CLOUDY (CLEAR); *COLOR,URINE LIGHT YELLOW (YELLOW); *KETONES,URINE NEGATIVE (NEGATIVE); LEUKOCYTE ESTERASE ,URINE 3+ (NEGATIVE); NITRITE, URINE NEGATIVE (NEGATIVE); PH,URINE 7.5 (5.0-8.0); UGLUCOSE NEGATIVE (NEGATIVE)
[2019-12-28] MEDS: MEROPENEM 1 G in IV NORMAL SALINE 100 ML IV SCH (17:35)
--- NOTE | 2019-12-28 18:39 | NUR ---
NO A/R TO IV ATB MEROPENEM.
[2019-12-28] MEDS: VANCOMYCIN IV 1,000 MG in IV DEXTROSE 5% 250 ML IV SCH (18:49)
[2019-12-28] MEDS: MULTIVIT, IRON, MIN NO. 8, FA TABLET GT SCH (20:01)
[2019-12-28] MEDS: SIMVASTATIN 10 MG TABLET GT SCH (20:01)
[2019-12-28] MEDS: ASCORBIC ACID 500 MG TABLET GT SCH (20:01)
[2019-12-28] MEDS: ESTROGENS,CONJU VAGINAL CREAM 42.5 GM TUBE VG SCH (20:02)
[2019-12-28 22:00] VITALS: BP 102/52
[2019-12-29] MEDS: MEROPENEM 1 G in IV NORMAL SALINE 100 ML IV SCH ×3 (01:04→17:09)
[2019-12-29] MEDS: ALBUTEROL SULFATE 2.5 MG/3 ML NEBU NEB SCH ×6 (02:52→22:43)
[2019-12-29] MEDS: IPRATROPIUM BROMIDE 0.5 MG/2.5 ML NEBU NEB SCH ×6 (02:52→22:43)
[2019-12-29] MEDS: ARGININE/GLUTAMINE/CALCIUM BMB 1 EACH POWD.PACK GT SCH ×2 (05:30→17:20)
[2019-12-29] MEDS: OMEPRAZOLE 20 MG CAPSULE.DR GT SCH (05:31)
[2019-12-29] MEDS: BACLOFEN 10 MG TABLET GT SCH ×3 (05:31→17:20)
[2019-12-29] MEDS: PROTEIN SUPPLEMENT (PROSTAT) 30 ML LIQUID GT SCH ×3 (05:33→22:35)
--- NOTE | 2019-12-29 05:56 | NUR ---
PT CONTINUE ON ATB IV VANCOMYCIN AND MEROPENEM ORDERED NO A/R NOTED.CONTINUE MONITOR FOR HEIGHT TEMPERATURE .
[2019-12-29 06:30] LABS: BASOPHILS # (AUTO) 0.1 K/uL (0.0-8.0); BASOPHILS % (AUTO) 0.9 % (0.0-2.0); EOSINOPHILS # (AUTO) 0.5 K/uL (0.0-0.7); EOSINOPHILS % (AUTO) 5.8 % (0.0-7.0); HEMATOCRIT 37.9 % (31.2-41.9); HEMOGLOBIN 12.1 g/dL (10.9-14.3); LYMPHOCYTES # (AUTO) 1.7 K/uL (20.0-40.0); LYMPHOCYTES % (AUTO) 20.7 % (20.5-51.5); MEAN CORPUSCULAR HEMOGLOBIN 28.5 uug (24.7-32.8); MEAN CORPUSCULAR HGB CONC 32 g/dL (32.3-35.6); MEAN CORPUSCULAR VOLUME 88.8 fL (75.5-95.3); MONOCYTES # (AUTO) 0.6 K/uL (2.0-10.0); MONOCYTES % (AUTO) 7.1 % (0.0-11.0); NEUTROPHILS # (AUTO) 5.4 K/uL (1.8-8.9); NEUTROPHILS % (AUTO) 65.5 % (38.5-71.5); PLATELET COUNT (AUTO) 190 K/uL (179-408); RED BLOOD CELL COUNT(AUTO) 4.27 MIL/uL (3.63-4.92); WHITE BLOOD COUNT (AUTO) 8.3 K/uL (3.8-11.8)
[2019-12-29 06:55] LABS: BILIRUBIN,TOTAL 0.5 mg/dL (0.2-1.0); CREATININE 0.9 mg/dL (0.6-1.3); POTASSIUM 4.1 mmol/L (3.5-5.1); TOTAL PROTEIN, SERUM 7.9 g/dL (6.4-8.2)
[2019-12-29 07:37] VITALS: BP 103/55
[2019-12-29] MEDS: ACIDOPHILUS/BULGARICUS CHEW TAB GT SCH ×2 (08:28→20:03)
[2019-12-29] MEDS: ACETAMINOPHEN 650 MG/20.3 ML LIQUID UDC GT SCH (08:28)
[2019-12-29] MEDS: COD LIVER OIL/ZINC OXIDE OINT 113 GM TUBE TP SCH (08:29)
[2019-12-29] MEDS: THERAHONEY GEL 1.5 OZ TUBE TOP SCH (08:29)
[2019-12-29] MEDS: SERTRALINE 25 MG GT SCH (08:29)
[2019-12-29] MEDS: SODIUM HYPOCHLORITE 0.125% (QUARTER STRENGTH) 473 ML BOTTLE TP SCH (08:29)
[2019-12-29] MEDS: HYDROGEN PEROXIDE 3% 118 ML BOTTLE TP SCH ×2 (09:00→21:01)
[2019-12-29 09:42] LABS: BACTERIA,URINE MANY /HPF (NONE SEEN); SQUAMOUS EPITHELIAL CELL,UR FEW /HPF (NONE SEEN); WBC,URINE TNTC /HPF (0-3)
--- NOTE | 2019-12-29 16:07 | NUR ---
PT'S DTR.RAKEL GARCIA AWARE THAT PT. IS NEGATIVE FOR COVID 19 TEST.
[2019-12-29] MEDS: JEVITY 1.2 1000 ML LIQUID GT PRN (17:21)
[2019-12-29] MEDS: VANCOMYCIN IV 1,000 MG in IV DEXTROSE 5% 250 ML IV SCH (18:05)
[2019-12-29] MEDS: ACETAMINOPHEN 650 MG/20 ML UDC- SA PATIENTS-PAIN ONLY GT PRN (19:30)
[2019-12-29 20:00] VITALS: BP 114/69
[2019-12-29] MEDS: ASCORBIC ACID 500 MG TABLET GT SCH (20:03)
[2019-12-29] MEDS: SIMVASTATIN 10 MG TABLET GT SCH (20:03)
[2019-12-29] MEDS: MULTIVIT, IRON, MIN NO. 8, FA TABLET GT SCH (20:03)
[2019-12-29] MEDS: ESTROGENS,CONJU VAGINAL CREAM 42.5 GM TUBE VG SCH (20:03)
[2019-12-30] MEDS: BACLOFEN 10 MG TABLET GT SCH ×5 (00:43→23:43)
[2019-12-30] MEDS: MEROPENEM 1 G in IV NORMAL SALINE 100 ML IV SCH ×3 (01:30→16:58)
[2019-12-30] MEDS: ALBUTEROL SULFATE 2.5 MG/3 ML NEBU NEB SCH ×6 (02:41→23:19)
[2019-12-30] MEDS: IPRATROPIUM BROMIDE 0.5 MG/2.5 ML NEBU NEB SCH ×6 (02:41→23:19)
[2019-12-30] MEDS: PROTEIN SUPPLEMENT (PROSTAT) 30 ML LIQUID GT SCH ×3 (05:04→21:57)
[2019-12-30] MEDS: OMEPRAZOLE 20 MG CAPSULE.DR GT SCH (05:04)
[2019-12-30] MEDS: ARGININE/GLUTAMINE/CALCIUM BMB 1 EACH POWD.PACK GT SCH ×2 (05:04→17:01)
[2019-12-30 07:43] VITALS: BP 111/52
[2019-12-30] MEDS: ACIDOPHILUS/BULGARICUS CHEW TAB GT SCH ×2 (08:21→20:23)
[2019-12-30] MEDS: ACETAMINOPHEN 650 MG/20.3 ML LIQUID UDC GT SCH (08:21)
[2019-12-30] MEDS: SERTRALINE 25 MG GT SCH (08:23)
[2019-12-30] MEDS: HYDROGEN PEROXIDE 3% 118 ML BOTTLE TP SCH ×2 (09:26→21:24)
--- NOTE | 2019-12-30 12:00 | NUR ---
SEEN BY AMY Lorenzo AND WITH NNO.
--- NOTE | 2019-12-30 15:00 | NUR ---
SEEN BY DR. COLIN AND WITH NNO.
[2019-12-30 18:07] LABS: CREATININE 0.7 mg/dL (0.6-1.3); POTASSIUM 4.2 mmol/L (3.5-5.1)
[2019-12-30] MEDS: VANCOMYCIN IV 1,000 MG in IV DEXTROSE 5% 250 ML IV SCH (18:34)
[2019-12-30] MEDS: SIMVASTATIN 10 MG TABLET GT SCH (20:23)
[2019-12-30] MEDS: MULTIVIT, IRON, MIN NO. 8, FA TABLET GT SCH (20:23)
[2019-12-30] MEDS: ASCORBIC ACID 500 MG TABLET GT SCH (20:23)
[2019-12-30 21:04] VITALS: BP 100/40
[2019-12-30] MEDS: JEVITY 1.2 1000 ML LIQUID GT PRN (21:57)
[2019-12-30] MEDS: ESTROGENS,CONJU VAGINAL CREAM 42.5 GM TUBE VG SCH (21:57)
[2019-12-31] MEDS: MEROPENEM 1 G in IV NORMAL SALINE 100 ML IV SCH ×3 (01:28→16:48)
[2019-12-31] MEDS: ALBUTEROL SULFATE 2.5 MG/3 ML NEBU NEB SCH ×6 (03:16→23:20)
[2019-12-31] MEDS: IPRATROPIUM BROMIDE 0.5 MG/2.5 ML NEBU NEB SCH ×6 (03:16→23:20)
[2019-12-31] MEDS: PROTEIN SUPPLEMENT (PROSTAT) 30 ML LIQUID GT SCH ×3 (05:08→22:03)
[2019-12-31] MEDS: OMEPRAZOLE 20 MG CAPSULE.DR GT SCH (05:08)
[2019-12-31] MEDS: ARGININE/GLUTAMINE/CALCIUM BMB 1 EACH POWD.PACK GT SCH ×2 (05:08→17:40)
[2019-12-31] MEDS: BACLOFEN 10 MG TABLET GT SCH ×3 (05:08→17:40)
[2019-12-31 07:39] VITALS: BP 108/44
[2019-12-31] MEDS: ACIDOPHILUS/BULGARICUS CHEW TAB GT SCH ×2 (08:38→21:00)
[2019-12-31] MEDS: SERTRALINE 25 MG GT SCH (08:38)
[2019-12-31] MEDS: ACETAMINOPHEN 650 MG/20.3 ML LIQUID UDC GT SCH (08:38)
[2019-12-31] MEDS: HYDROGEN PEROXIDE 3% 118 ML BOTTLE TP SCH ×2 (09:38→20:57)
--- NOTE | 2019-12-31 10:30 | NUR ---
Seen and examined by Morgan Finley with new orders to DC vancomycin.orders carried out.
--- NOTE | 2019-12-31 15:00 | NUR ---
Resident noted to have redness and discomfort from the GT site when doing pt care. Charge nurse made aware and assessed pt and noted that the GT site has redness. G tube changed-pt tolerated well ,site checked to be patent and intact through auscultation and residual. MD made aware with new order for KUB, pt remains comfortable at this time. Will continue to monitor GT site.
[2019-12-31 20:36] VITALS: BP 99/49
[2019-12-31] MEDS: ESTROGENS,CONJU VAGINAL CREAM 42.5 GM TUBE VG SCH (21:00)
[2019-12-31] MEDS: ASCORBIC ACID 500 MG TABLET GT SCH (21:00)
[2019-12-31] MEDS: MULTIVIT, IRON, MIN NO. 8, FA TABLET GT SCH (21:00)
[2019-12-31] MEDS: SIMVASTATIN 10 MG TABLET GT SCH (21:00)
[2019-12-31] MEDS: ACETAMINOPHEN 650 MG/20 ML UDC- SA PATIENTS-PAIN ONLY GT PRN (22:00)
[2019-12-31] MEDS: TEMAZEPAM 7.5 MG CAPSULE GT PRN (22:04)
[2019-12-31] MEDS: JEVITY 1.2 1000 ML LIQUID GT PRN (22:30)
[2020-01-01] MEDS: MEROPENEM 1 G in IV NORMAL SALINE 100 ML IV SCH ×3 (01:30→17:30)
[2020-01-01] MEDS: IPRATROPIUM BROMIDE 0.5 MG/2.5 ML NEBU NEB SCH ×6 (02:41→22:55)
[2020-01-01] MEDS: ALBUTEROL SULFATE 2.5 MG/3 ML NEBU NEB SCH ×6 (02:41→22:55)
[2020-01-01] MEDS: ACETAMINOPHEN 650 MG/20 ML UDC- SA PATIENTS-PAIN ONLY GT PRN ×2 (04:07→21:54)
[2020-01-01] MEDS: OMEPRAZOLE 20 MG CAPSULE.DR GT SCH (06:19)
[2020-01-01] MEDS: ARGININE/GLUTAMINE/CALCIUM BMB 1 EACH POWD.PACK GT SCH ×2 (06:19→17:33)
[2020-01-01] MEDS: BACLOFEN 10 MG TABLET GT SCH ×4 (06:19→17:33)
[2020-01-01] MEDS: PROTEIN SUPPLEMENT (PROSTAT) 30 ML LIQUID GT SCH ×3 (06:19→21:52)
[2020-01-01 07:44] VITALS: BP 104/46
[2020-01-01] MEDS: SERTRALINE 25 MG GT SCH (08:38)
[2020-01-01] MEDS: ACETAMINOPHEN 650 MG/20.3 ML LIQUID UDC GT SCH (08:38)
[2020-01-01] MEDS: ACIDOPHILUS/BULGARICUS CHEW TAB GT SCH ×2 (08:38→21:47)
[2020-01-01] MEDS: HYDROGEN PEROXIDE 3% 118 ML BOTTLE TP SCH ×2 (09:00→21:09)
[2020-01-01 20:44] VITALS: BP 115/59
[2020-01-01] MEDS: MULTIVIT, IRON, MIN NO. 8, FA TABLET GT SCH (21:47)
[2020-01-01] MEDS: SIMVASTATIN 10 MG TABLET GT SCH (21:48)
[2020-01-01] MEDS: ASCORBIC ACID 500 MG TABLET GT SCH (21:48)
[2020-01-01] MEDS: NEOMY/BACITRA/POLYMYXIN B OINT UD PACKET TP SCH (21:52)
[2020-01-01] MEDS: ESTROGENS,CONJU VAGINAL CREAM 42.5 GM TUBE VG SCH (21:52)
[2020-01-02] MEDS: MEROPENEM 1 G in IV NORMAL SALINE 100 ML IV SCH ×2 (02:15→09:30)
--- NOTE | 2020-01-02 02:39 | NUR ---
Afebrile, remains on Meropenem IV for fever, no adverse reactions noted. Alert and oriented, no signs of any distress noted, wound treatment to sacral wound done as ordered, kept clean and comfortable.
[2020-01-02] MEDS: IPRATROPIUM BROMIDE 0.5 MG/2.5 ML NEBU NEB SCH ×6 (02:40→22:50)
[2020-01-02] MEDS: ALBUTEROL SULFATE 2.5 MG/3 ML NEBU NEB SCH ×6 (02:40→22:50)
[2020-01-02] MEDS: JEVITY 1.2 1000 ML LIQUID GT PRN ×2 (05:00→22:30)
[2020-01-02] MEDS: OMEPRAZOLE 20 MG CAPSULE.DR GT SCH (06:21)
[2020-01-02] MEDS: PROTEIN SUPPLEMENT (PROSTAT) 30 ML LIQUID GT SCH ×3 (06:21→22:20)
[2020-01-02] MEDS: ARGININE/GLUTAMINE/CALCIUM BMB 1 EACH POWD.PACK GT SCH ×2 (06:21→17:02)
[2020-01-02] MEDS: BACLOFEN 10 MG TABLET GT SCH ×4 (06:22→17:02)
[2020-01-02 07:28] VITALS: BP 106/59
[2020-01-02] MEDS: ACETAMINOPHEN 650 MG/20.3 ML LIQUID UDC GT SCH (08:09)
[2020-01-02] MEDS: SERTRALINE 25 MG GT SCH (08:10)
[2020-01-02] MEDS: NEOMY/BACITRA/POLYMYXIN B OINT UD PACKET TP SCH ×2 (08:10→21:00)
[2020-01-02] MEDS: ACIDOPHILUS/BULGARICUS CHEW TAB GT SCH ×2 (08:10→21:00)
[2020-01-02] MEDS: HYDROGEN PEROXIDE 3% 118 ML BOTTLE TP SCH ×2 (09:40→21:29)
--- NOTE | 2020-01-02 10:41 | NUR ---
Patient's daughter Ludmila asked this SW if patient's stimulus money can be used to hire an specialist managers, who can assist with renewing patient's immigration papers. SW met with the patient today, who is alert, oriented, and able to follow commands and express her needs. SW asked the patient if some of the funds in her bank account can be used for her daughter Ludmila to hire an specialist managers to assist with her immigration renewal, and patient nodded her head up and down, indicating "yes" and also mouthed "yes". DOROTHY then informed, via email, Elinor Leone and Tahmina Hubbard in the accounting department about patient's agreement for the money to be used by her daughter to hire an specialist managers. SW waiting to hear back from the accounting department regarding details on how to proceed, after which SW will notify patient's daughter Ludmila.
--- NOTE | 2020-01-02 13:50 | NUR ---
NOTIFIED DR. TAN ABOUT NEW GI CONSULT FOR G-TUBE SITE REDNESS. DR. TAN NOTED THAT HE WILL COME AND SEE PATIENT. WILL CONTAINING TO MONITOR.
[2020-01-02 20:00] VITALS: BP 104/54
[2020-01-02] MEDS: ASCORBIC ACID 500 MG TABLET GT SCH (21:00)
[2020-01-02] MEDS: THERAHONEY GEL 1.5 OZ TUBE TOP SCH (21:00)
[2020-01-02] MEDS: MULTIVIT, IRON, MIN NO. 8, FA TABLET GT SCH (21:00)
[2020-01-02] MEDS: SIMVASTATIN 10 MG TABLET GT SCH (21:00)
[2020-01-02] MEDS: ESTROGENS,CONJU VAGINAL CREAM 42.5 GM TUBE VG SCH (21:00)
[2020-01-02] MEDS: SODIUM HYPOCHLORITE 0.25% (HALF STRENGTH) 480 ML BOTTLE TP SCH (21:00)
[2020-01-02] MEDS: COD LIVER OIL/ZINC OXIDE OINT 113 GM TUBE TP SCH (21:00)
--- NOTE | 2020-01-03 01:42 | NUR ---
S/P Meropenem IV for fever, no adverse reactions noted. Alert and oriented, no signs of any distress noted, wound treatment to sacral wound done as ordered, kept clean and comfortable.
[2020-01-03] MEDS: ALBUTEROL SULFATE 2.5 MG/3 ML NEBU NEB SCH ×6 (02:51→23:50)
[2020-01-03] MEDS: IPRATROPIUM BROMIDE 0.5 MG/2.5 ML NEBU NEB SCH ×6 (02:51→23:50)
[2020-01-03] MEDS: BACLOFEN 10 MG TABLET GT SCH ×4 (06:30→17:16)
[2020-01-03] MEDS: ARGININE/GLUTAMINE/CALCIUM BMB 1 EACH POWD.PACK GT SCH ×2 (06:30→17:16)
[2020-01-03] MEDS: PROTEIN SUPPLEMENT (PROSTAT) 30 ML LIQUID GT SCH ×3 (06:30→22:58)
[2020-01-03] MEDS: OMEPRAZOLE 20 MG CAPSULE.DR GT SCH (06:30)
[2020-01-03 07:29] VITALS: BP 106/44
[2020-01-03] MEDS: ACETAMINOPHEN 650 MG/20.3 ML LIQUID UDC GT SCH (08:37)
[2020-01-03] MEDS: ACIDOPHILUS/BULGARICUS CHEW TAB GT SCH ×2 (08:38→21:00)
[2020-01-03] MEDS: SERTRALINE 25 MG GT SCH (08:40)
[2020-01-03] MEDS: THERAHONEY GEL 1.5 OZ TUBE TOP SCH ×2 (08:41→21:00)
[2020-01-03] MEDS: SODIUM HYPOCHLORITE 0.25% (HALF STRENGTH) 480 ML BOTTLE TP SCH ×2 (08:42→21:00)
[2020-01-03] MEDS: COD LIVER OIL/ZINC OXIDE OINT 113 GM TUBE TP SCH ×2 (08:42→21:00)
[2020-01-03] MEDS: NEOMY/BACITRA/POLYMYXIN B OINT UD PACKET TP SCH ×2 (08:42→21:00)
[2020-01-03] MEDS: HYDROGEN PEROXIDE 3% 118 ML BOTTLE TP SCH ×2 (09:40→21:35)
--- NOTE | 2020-01-03 12:28 | NUR ---
DOROTHY spoke with Tahmina Hubbard in the accounting department, as a followup to the email that this SW sent her on 01/02/20 (see previous SS note). Tahmina informed this SW that patient has $1085 available to spend on the process for renewing her residency status. DOROTHY informed patient's daughter Ludmila regarding the dollar amount that Tahmina stated was available, and reminded Ludmila that Ludmila would need to submit receipts in order for the accounting department to reimburse the expenses.
--- NOTE | 2020-01-03 16:00 | NUR ---
Spoke with Dr. Ankita Md was aware of Gi consult, stated " I'll be there later"
--- NOTE | 2020-01-03 17:24 | NUR ---
Seen by Janeen Weems, notified of gtube redness, new orders carried out to culture gtube site, cbc, cmp esr procalcitonin in am.
--- NOTE | 2020-01-03 20:30 | NUR ---
found g-tube out, reinserted g-tube without difficulty, kub with gastrografin done to confirm gt placement, kub confirmed gt placement@2217, started tube feeding.
[2020-01-03] MEDS: ESTROGENS,CONJU VAGINAL CREAM 42.5 GM TUBE VG SCH (21:00)
[2020-01-03] MEDS: SIMVASTATIN 10 MG TABLET GT SCH (21:00)
[2020-01-03] MEDS: MULTIVIT, IRON, MIN NO. 8, FA TABLET GT SCH (21:00)
[2020-01-03] MEDS: ASCORBIC ACID 500 MG TABLET GT SCH (21:00)
[2020-01-03 22:45] VITALS: BP 114/45
[2020-01-04] MEDS: BACLOFEN 10 MG TABLET GT SCH ×4 (00:18→17:19)
[2020-01-04] MEDS: JEVITY 1.2 1000 ML LIQUID GT PRN (00:43)
[2020-01-04] MEDS: IPRATROPIUM BROMIDE 0.5 MG/2.5 ML NEBU NEB SCH ×6 (03:20→23:02)
[2020-01-04] MEDS: ALBUTEROL SULFATE 2.5 MG/3 ML NEBU NEB SCH ×6 (03:20→23:02)
[2020-01-04] MEDS: ARGININE/GLUTAMINE/CALCIUM BMB 1 EACH POWD.PACK GT SCH ×2 (06:01→17:17)
[2020-01-04] MEDS: OMEPRAZOLE 20 MG CAPSULE.DR GT SCH (06:02)
[2020-01-04] MEDS: PROTEIN SUPPLEMENT (PROSTAT) 30 ML LIQUID GT SCH ×2 (06:02→14:15)
[2020-01-04 07:43] VITALS: BP 110/59
[2020-01-04] MEDS: ACIDOPHILUS/BULGARICUS CHEW TAB GT SCH (09:02)
[2020-01-04] MEDS: SERTRALINE 25 MG GT SCH (09:02)
[2020-01-04] MEDS: ACETAMINOPHEN 650 MG/20.3 ML LIQUID UDC GT SCH (09:02)
[2020-01-04] MEDS: SODIUM HYPOCHLORITE 0.25% (HALF STRENGTH) 480 ML BOTTLE TP SCH ×2 (09:04→21:00)
[2020-01-04] MEDS: COD LIVER OIL/ZINC OXIDE OINT 113 GM TUBE TP SCH ×2 (09:04→21:00)
[2020-01-04] MEDS: THERAHONEY GEL 1.5 OZ TUBE TOP SCH ×2 (09:04→21:00)
[2020-01-04] MEDS: NEOMY/BACITRA/POLYMYXIN B OINT UD PACKET TP SCH ×2 (09:05→21:00)
[2020-01-04] MEDS: HYDROGEN PEROXIDE 3% 118 ML BOTTLE TP SCH ×2 (09:40→21:35)
--- NOTE | 2020-01-04 15:00 | NUR ---
Seen and examined by Dr Luciano,advertising designer ,he check the Gt site,He removed the Gt ,with new orders to start Ivatb and call primary Md for IV hydration.
--- NOTE | 2020-01-04 15:45 | NUR ---
Dr Hernandez,made aware of Dr Luciano orders,with new orders to start D5NS at 75 cc/hr.
--- NOTE | 2020-01-04 16:15 | NUR ---
Ludmilaboo Hale pt's daughter made aware of the new orders ,she agreed with the plan of care.
--- NOTE | 2020-01-04 17:23 | NUR ---
Seen by Janeen GAO with new orders to dc Zosyn,due to HX of allergy to Zosyn,and start Atiliopharmacy to dose.
[2020-01-04 17:33] LABS: BASOPHILS # (AUTO) 0.1 K/uL (0.0-8.0); BASOPHILS % (AUTO) 0.8 % (0.0-2.0); EOSINOPHILS # (AUTO) 0.4 K/uL (0.0-0.7); EOSINOPHILS % (AUTO) 4.8 % (0.0-7.0); HEMATOCRIT 39.5 % (31.2-41.9); HEMOGLOBIN 12.6 g/dL (10.9-14.3); LYMPHOCYTES # (AUTO) 2.1 K/uL (20.0-40.0); LYMPHOCYTES % (AUTO) 25.7 % (20.5-51.5); MEAN CORPUSCULAR HGB CONC 32 g/dL (32.3-35.6); MEAN CORPUSCULAR VOLUME 88.1 fL (75.5-95.3); MONOCYTES # (AUTO) 0.6 K/uL (2.0-10.0); MONOCYTES % (AUTO) 6.9 % (0.0-11.0); NEUTROPHILS # (AUTO) 5.1 K/uL (1.8-8.9); NEUTROPHILS % (AUTO) 61.8 % (38.5-71.5); PLATELET COUNT (AUTO) 246 K/uL (179-408); RED BLOOD CELL COUNT(AUTO) 4.49 MIL/uL (3.63-4.92); WHITE BLOOD COUNT (AUTO) 8.3 K/uL (3.8-11.8)
[2020-01-04] MEDS: VANCOMYCIN IV 1 G in PREMIXED 0 EACH IV SCH (17:50)
[2020-01-04 17:52] LABS: BILIRUBIN,TOTAL 0.4 mg/dL (0.2-1.0); CREATININE 0.8 mg/dL (0.6-1.3); POTASSIUM 4.1 mmol/L (3.5-5.1); TOTAL PROTEIN, SERUM 8.7 g/dL (6.4-8.2)
--- NOTE | 2020-01-04 18:07 | NUR ---
lalit bone on iv hydration. Addendum: 01/04/20 at 1808 by ASH TOM BROCKN Amended: Links added.
[2020-01-04] MEDS: MEROPENEM 1 G in IV NORMAL SALINE 100 ML IV SCH (20:13)
[2020-01-04] MEDS: ESTROGENS,CONJU VAGINAL CREAM 42.5 GM TUBE VG SCH (21:00)
--- NOTE | 2020-01-04 22:00 | NUR ---
Patient is alert and oriented, afebrile, GT was removed earlier by GI Doctor due to GT site infection, noted with some brownish drainage from the old gt site.GT site care done, NPO at this time, on IVF: D5 NS@75 ml/hr infusing well on left hand, on and Vancomycin IV for GT site, no adverse reactions noted at this time. [place] catheter draining well to yellow urine output, good sukumar care rendered, turned and repositioned, sacral wound care done as ordered. Kept clean and comfortable.
[2020-01-04] MEDS: IV D5/ 0.9% NACL 1,000 ML IV SCH (22:46)
[2020-01-04 23:00] VITALS: BP 94/52
--- NOTE | 2020-01-04 23:16 | NUR ---
started on merrem 1gm iv for gt site infection, no adverse reaction noted, afebrile, iv d5n.s.@75ml/hr for hydration, awake and alert, repositioned, no respiratory distress noted.
--- NOTE | 2020-01-05 01:30 | NUR ---
Clarification of orders done on Tylenol orders change from GT to suppository per rectum.
[2020-01-05] MEDS: MEROPENEM 1 G in IV NORMAL SALINE 100 ML IV SCH ×3 (03:34→20:29)
[2020-01-05] MEDS: ALBUTEROL SULFATE 2.5 MG/3 ML NEBU NEB SCH ×6 (03:48→22:54)
[2020-01-05] MEDS: IPRATROPIUM BROMIDE 0.5 MG/2.5 ML NEBU NEB SCH ×6 (03:48→22:54)
--- NOTE | 2020-01-05 07:03 | NUR ---
Unable to monitor Zoloft and Restoril at this time due to no GT/NPO status. Medications are not given at this time.
[2020-01-05 07:54] VITALS: BP 129/70
[2020-01-05] MEDS: THERAHONEY GEL 1.5 OZ TUBE TOP SCH ×2 (08:10→21:49)
[2020-01-05] MEDS: SODIUM HYPOCHLORITE 0.25% (HALF STRENGTH) 480 ML BOTTLE TP SCH ×2 (08:10→21:49)
[2020-01-05] MEDS: COD LIVER OIL/ZINC OXIDE OINT 113 GM TUBE TP SCH ×2 (08:10→21:49)
[2020-01-05] MEDS: NEOMY/BACITRA/POLYMYXIN B OINT UD PACKET TP SCH ×3 (08:10→21:49)
[2020-01-05] MEDS: HYDROGEN PEROXIDE 3% 118 ML BOTTLE TP SCH ×2 (09:00→21:49)
[2020-01-05] MEDS: PANTOPRAZOLE SODIUM 40 MG VIAL IV SCH ×2 (10:21→21:00)
[2020-01-05] MEDS: IV D5/ 0.9% NACL 1,000 ML IV SCH (11:07)
--- NOTE | 2020-01-05 14:17 | NUR ---
Continue on ivatb,for gt site infection no adverse reaction noted,on iv fluids D5NS at 75 cc/hr for hydration,old gt site,with slight redness noted.
--- NOTE | 2020-01-05 15:03 | NUR ---
Seen and examined by Janeen GAO with new orders noted.
--- NOTE | 2020-01-05 16:04 | NUR ---
Midline inserted by Radha Pittman,as ordered ,procedure tolerated well,inserted on the R upper arm,new orders to change dressing weelky and flush with ns every shift.contact isolation for CRE in urine discontinue.
--- NOTE | 2020-01-05 16:40 | NUR ---
Ludmila Hale pt's daughter notified about patient condition.
[2020-01-05] MEDS: VANCOMYCIN IV 1 G in PREMIXED 0 EACH IV SCH (18:09)
[2020-01-05] MEDS: ACETAMINOPHEN 650 MG SUPP.RECT RC SCH (20:30)
[2020-01-05] MEDS: ESTROGENS,CONJU VAGINAL CREAM 42.5 GM TUBE VG SCH (21:50)
[2020-01-05 22:35] VITALS: BP 108/50
[2020-01-06] MEDS: IV D5/ 0.9% NACL 1,000 ML IV SCH ×2 (01:00→18:03)
[2020-01-06] MEDS: ALBUTEROL SULFATE 2.5 MG/3 ML NEBU NEB SCH ×6 (02:55→23:06)
[2020-01-06] MEDS: IPRATROPIUM BROMIDE 0.5 MG/2.5 ML NEBU NEB SCH ×6 (02:55→23:06)
[2020-01-06] MEDS: MEROPENEM 1 G in IV NORMAL SALINE 100 ML IV SCH ×3 (03:44→20:11)
[2020-01-06 06:50] LABS: BASOPHILS % (AUTO) 0.6 % (0.0-2.0); EOSINOPHILS # (AUTO) 0.4 K/uL (0.0-0.7); EOSINOPHILS % (AUTO) 5.5 % (0.0-7.0); HEMATOCRIT 35.3 % (31.2-41.9); HEMOGLOBIN 11.3 g/dL (10.9-14.3); LYMPHOCYTES # (AUTO) 1.8 K/uL (20.0-40.0); LYMPHOCYTES % (AUTO) 26.9 % (20.5-51.5); MEAN CORPUSCULAR HEMOGLOBIN 28.6 uug (24.7-32.8); MEAN CORPUSCULAR HGB CONC 32 g/dL (32.3-35.6); MEAN CORPUSCULAR VOLUME 89.1 fL (75.5-95.3); MONOCYTES # (AUTO) 0.6 K/uL (2.0-10.0); MONOCYTES % (AUTO) 8.4 % (0.0-11.0); NEUTROPHILS # (AUTO) 3.9 K/uL (1.8-8.9); NEUTROPHILS % (AUTO) 58.6 % (38.5-71.5); PLATELET COUNT (AUTO) 233 K/uL (179-408); RED BLOOD CELL COUNT(AUTO) 3.96 MIL/uL (3.63-4.92); WHITE BLOOD COUNT (AUTO) 6.6 K/uL (3.8-11.8)
[2020-01-06 07:18] LABS: BILIRUBIN,TOTAL 0.7 mg/dL (0.2-1.0); CREATININE 0.8 mg/dL (0.6-1.3); POTASSIUM 3.9 mmol/L (3.5-5.1); TOTAL PROTEIN, SERUM 7.6 g/dL (6.4-8.2)
[2020-01-06 07:40] VITALS: BP 102/44
[2020-01-06] MEDS: ACETAMINOPHEN 650 MG SUPP.RECT RC SCH ×2 (08:44→21:14)
[2020-01-06] MEDS: NEOMY/BACITRA/POLYMYXIN B OINT UD PACKET TP SCH ×4 (09:00→21:15)
[2020-01-06] MEDS: THERAHONEY GEL 1.5 OZ TUBE TOP SCH ×2 (09:00→21:15)
[2020-01-06] MEDS: PANTOPRAZOLE SODIUM 40 MG VIAL IV SCH ×2 (09:00→20:11)
[2020-01-06] MEDS: COD LIVER OIL/ZINC OXIDE OINT 113 GM TUBE TP SCH ×2 (09:00→21:15)
[2020-01-06] MEDS: SODIUM HYPOCHLORITE 0.25% (HALF STRENGTH) 480 ML BOTTLE TP SCH ×2 (09:00→21:15)
[2020-01-06] MEDS: HYDROGEN PEROXIDE 3% 118 ML BOTTLE TP SCH ×2 (09:17→21:22)
[2020-01-06] MEDS: VANCOMYCIN IV 1 G in PREMIXED 0 EACH IV SCH (20:00)
[2020-01-06 20:16] VITALS: BP 99/41
--- NOTE | 2020-01-06 21:00 | NUR ---
VANCOMYCIN TROUGH =4.8 FAXED TO [facility] IV DEPARTMENT AND SPOKE TO DAI AND WILL CALL BACK.
--- NOTE | 2020-01-06 21:00 | NUR ---
VANCOMYCIN 1 G WAS GIVEN VIA IV NO A/R NOTED.
[2020-01-06] MEDS: ESTROGENS,CONJU VAGINAL CREAM 42.5 GM TUBE VG SCH (21:15)
--- NOTE | 2020-01-06 22:30 | NUR ---
[facility] IV DEPARTMENT CALLED BACK WITH NEW ORDERED FOR VANCOMYCIN PER PHARMACY TO DOSE.
[2020-01-07] MEDS: ALBUTEROL SULFATE 2.5 MG/3 ML NEBU NEB SCH ×6 (03:02→23:04)
[2020-01-07] MEDS: IPRATROPIUM BROMIDE 0.5 MG/2.5 ML NEBU NEB SCH ×6 (03:02→23:04)
[2020-01-07] MEDS: IV D5/ 0.9% NACL 1,000 ML IV SCH ×2 (04:04→23:20)
[2020-01-07] MEDS: MEROPENEM 1 G in IV NORMAL SALINE 100 ML IV SCH ×3 (04:04→20:08)
[2020-01-07 07:40] VITALS: BP 115/61
[2020-01-07] MEDS: ACETAMINOPHEN 650 MG SUPP.RECT RC SCH ×2 (08:48→20:30)
[2020-01-07] MEDS: THERAHONEY GEL 1.5 OZ TUBE TOP SCH ×2 (08:48→21:54)
[2020-01-07] MEDS: SODIUM HYPOCHLORITE 0.25% (HALF STRENGTH) 480 ML BOTTLE TP SCH ×2 (08:48→21:54)
[2020-01-07] MEDS: COD LIVER OIL/ZINC OXIDE OINT 113 GM TUBE TP SCH ×2 (08:48→21:00)
[2020-01-07] MEDS: NEOMY/BACITRA/POLYMYXIN B OINT UD PACKET TP SCH ×4 (08:49→21:55)
[2020-01-07] MEDS: HYDROGEN PEROXIDE 3% 118 ML BOTTLE TP SCH ×2 (09:00→20:49)
[2020-01-07] MEDS: PANTOPRAZOLE SODIUM 40 MG VIAL IV SCH ×2 (09:03→21:00)
[2020-01-07 20:20] VITALS: BP 114/43
[2020-01-07] MEDS: ESTROGENS,CONJU VAGINAL CREAM 42.5 GM TUBE VG SCH (21:55)
[2020-01-08] MEDS: VANCOMYCIN IV 750 MG in IV DEXTROSE 5% 250 ML IV SCH ×2 (01:52→14:40)
[2020-01-08] MEDS: ALBUTEROL SULFATE 2.5 MG/3 ML NEBU NEB SCH ×6 (02:55→23:18)
[2020-01-08] MEDS: IPRATROPIUM BROMIDE 0.5 MG/2.5 ML NEBU NEB SCH ×6 (02:55→23:18)
[2020-01-08] MEDS: MEROPENEM 1 G in IV NORMAL SALINE 100 ML IV SCH ×3 (03:51→20:44)
--- NOTE | 2020-01-08 04:43 | NUR ---
right upper arm mid line patent,continue on iv d5n.s.75ml/hr, started vancomycin 750mg iv for gt site infection, merrem iv, afebrile, no respiratory distress noted.
[2020-01-08] MEDS: HYDROGEN PEROXIDE 3% 118 ML BOTTLE TP SCH ×2 (07:21→21:40)
[2020-01-08 08:00] VITALS: BP 114/61
[2020-01-08] MEDS: IV D5/ 0.9% NACL 1,000 ML IV SCH ×2 (08:00→14:40)
[2020-01-08] MEDS: ACETAMINOPHEN 650 MG SUPP.RECT RC SCH ×2 (08:30→20:30)
[2020-01-08] MEDS: THERAHONEY GEL 1.5 OZ TUBE TOP SCH ×2 (09:30→21:57)
[2020-01-08] MEDS: COD LIVER OIL/ZINC OXIDE OINT 113 GM TUBE TP SCH ×2 (09:31→21:57)
[2020-01-08] MEDS: NEOMY/BACITRA/POLYMYXIN B OINT UD PACKET TP SCH ×3 (09:31→21:57)
[2020-01-08] MEDS: SODIUM HYPOCHLORITE 0.25% (HALF STRENGTH) 480 ML BOTTLE TP SCH ×2 (09:31→21:57)
[2020-01-08] MEDS: PANTOPRAZOLE SODIUM 40 MG VIAL IV SCH ×2 (09:53→21:00)
[2020-01-08 20:16] VITALS: BP 112/53
[2020-01-08] MEDS: ESTROGENS,CONJU VAGINAL CREAM 42.5 GM TUBE VG SCH (21:57)
[2020-01-09 01:52] LABS: CREATININE 0.7 mg/dL (0.6-1.3)
[2020-01-09] MEDS: VANCOMYCIN IV 750 MG in IV DEXTROSE 5% 250 ML IV SCH ×2 (02:00→14:42)
[2020-01-09] MEDS: IPRATROPIUM BROMIDE 0.5 MG/2.5 ML NEBU NEB SCH ×6 (03:36→23:11)
[2020-01-09] MEDS: ALBUTEROL SULFATE 2.5 MG/3 ML NEBU NEB SCH ×6 (03:36→23:11)
[2020-01-09] MEDS: MEROPENEM 1 G in IV NORMAL SALINE 100 ML IV SCH ×2 (04:19→11:21)
[2020-01-09 07:43] VITALS: BP 108/59
[2020-01-09] MEDS: ACETAMINOPHEN 650 MG SUPP.RECT RC SCH ×2 (08:30→20:30)
[2020-01-09] MEDS: PANTOPRAZOLE SODIUM 40 MG VIAL IV SCH ×2 (09:00→21:00)
[2020-01-09] MEDS: THERAHONEY GEL 1.5 OZ TUBE TOP SCH ×2 (09:24→21:32)
[2020-01-09] MEDS: SODIUM HYPOCHLORITE 0.25% (HALF STRENGTH) 480 ML BOTTLE TP SCH ×2 (09:24→21:33)
[2020-01-09] MEDS: NEOMY/BACITRA/POLYMYXIN B OINT UD PACKET TP SCH ×2 (09:24→21:33)
[2020-01-09] MEDS: COD LIVER OIL/ZINC OXIDE OINT 113 GM TUBE TP SCH ×2 (09:24→21:33)
[2020-01-09] MEDS: HYDROGEN PEROXIDE 3% 118 ML BOTTLE TP SCH ×2 (09:40→21:53)
[2020-01-09] MEDS: IV D5/ 0.9% NACL 1,000 ML IV SCH (10:01)
--- NOTE | 2020-01-09 12:00 | NUR ---
PT. SEEN BY RAKEL PARK) AND WITH RAINEO.
--- NOTE | 2020-01-09 17:30 | NUR ---
PT. WAS SEEN AND EXAMINED BY HALEY Dorsey) AND WITH GAY.
[2020-01-09 20:00] VITALS: BP 109/47
[2020-01-09] MEDS: ESTROGENS,CONJU VAGINAL CREAM 42.5 GM TUBE VG SCH (21:33)
[2020-01-10] MEDS: IV D5/ 0.9% NACL 1,000 ML IV SCH ×2 (02:40→13:54)
[2020-01-10] MEDS: ALBUTEROL SULFATE 2.5 MG/3 ML NEBU NEB SCH ×6 (03:10→23:30)
[2020-01-10] MEDS: IPRATROPIUM BROMIDE 0.5 MG/2.5 ML NEBU NEB SCH ×6 (03:10→23:30)
[2020-01-10 07:44] VITALS: BP 130/51
[2020-01-10] MEDS: ACETAMINOPHEN 650 MG SUPP.RECT RC SCH ×2 (08:44→20:54)
[2020-01-10] MEDS: COD LIVER OIL/ZINC OXIDE OINT 113 GM TUBE TP SCH ×2 (09:00→21:26)
[2020-01-10] MEDS: PANTOPRAZOLE SODIUM 40 MG VIAL IV SCH ×2 (09:00→21:00)
[2020-01-10] MEDS: THERAHONEY GEL 1.5 OZ TUBE TOP SCH ×2 (09:00→21:26)
[2020-01-10] MEDS: SODIUM HYPOCHLORITE 0.25% (HALF STRENGTH) 480 ML BOTTLE TP SCH ×2 (09:00→21:26)
[2020-01-10] MEDS: NEOMY/BACITRA/POLYMYXIN B OINT UD PACKET TP SCH ×2 (09:00→21:26)
[2020-01-10] MEDS: HYDROGEN PEROXIDE 3% 118 ML BOTTLE TP SCH ×2 (09:24→21:00)
--- NOTE | 2020-01-10 16:00 | NUR ---
PT. HAD VIDEO CHAT WITH PT'S DTR. RAKEL GARCIA.
[2020-01-10 20:00] VITALS: BP 131/57
[2020-01-10] MEDS: ESTROGENS,CONJU VAGINAL CREAM 42.5 GM TUBE VG SCH (21:26)
--- NOTE | 2020-01-10 23:09 | NUR ---
Afebrile, remains on IV hydration of D5NS@ 75ml/hr infusing well on FRANCESCA Midline, NPO, old gt site noted with minimal drainage, no signs of fluid overload noted. Protonix 40mg IVP given as ordered, denies any pain or discomfort, kept patient clean and comfortable, will continue monitor.
[2020-01-11] MEDS: IV D5/ 0.9% NACL 1,000 ML IV SCH ×2 (01:54→15:45)
[2020-01-11] MEDS: IPRATROPIUM BROMIDE 0.5 MG/2.5 ML NEBU NEB SCH ×6 (03:23→22:39)
[2020-01-11] MEDS: ALBUTEROL SULFATE 2.5 MG/3 ML NEBU NEB SCH ×6 (03:23→22:39)
[2020-01-11 07:49] VITALS: BP 127/61
[2020-01-11] MEDS: HYDROGEN PEROXIDE 3% 118 ML BOTTLE TP SCH ×2 (07:50→19:13)
[2020-01-11] MEDS: ACETAMINOPHEN 650 MG SUPP.RECT RC SCH ×2 (08:30→20:30)
[2020-01-11] MEDS: NEOMY/BACITRA/POLYMYXIN B OINT UD PACKET TP SCH ×2 (09:49→21:47)
[2020-01-11] MEDS: PANTOPRAZOLE SODIUM 40 MG VIAL IV SCH ×2 (09:49→21:24)
[2020-01-11] MEDS: COD LIVER OIL/ZINC OXIDE OINT 113 GM TUBE TP SCH ×2 (09:49→21:47)
[2020-01-11] MEDS: THERAHONEY GEL 1.5 OZ TUBE TOP SCH ×2 (09:50→21:47)
[2020-01-11] MEDS: SODIUM HYPOCHLORITE 0.25% (HALF STRENGTH) 480 ML BOTTLE TP SCH ×2 (09:50→21:47)
--- NOTE | 2020-01-11 13:20 | NUR ---
SEEN AND EXAMINED BY HALEY Tian 9I.Freedom ) AND WITH RAINEO.
[2020-01-11 20:17] VITALS: BP 107/59
--- NOTE | 2020-01-11 21:32 | NUR ---
Temperature is 98.7, on IV hydration of D5NS@ 75ml/hr infusing well on FRANCESCA Midline, NPO, old gt site noted with minimal drainage, no signs of fluid overload noted. Protonix 40mg IVP given as ordered, denies any pain or discomfort, kept patient clean and comfortable, call light within reach, will continue monitor.
[2020-01-11] MEDS: ESTROGENS,CONJU VAGINAL CREAM 42.5 GM TUBE VG SCH (21:52)
[2020-01-12] MEDS: IPRATROPIUM BROMIDE 0.5 MG/2.5 ML NEBU NEB SCH ×6 (03:48→22:40)
[2020-01-12] MEDS: ALBUTEROL SULFATE 2.5 MG/3 ML NEBU NEB SCH ×6 (03:48→22:40)
[2020-01-12] MEDS: IV D5/ 0.9% NACL 1,000 ML IV SCH ×2 (03:51→17:31)
[2020-01-12 07:37] VITALS: BP 108/47
[2020-01-12] MEDS: NEOMY/BACITRA/POLYMYXIN B OINT UD PACKET TP SCH ×2 (08:45→21:00)
[2020-01-12] MEDS: COD LIVER OIL/ZINC OXIDE OINT 113 GM TUBE TP SCH ×2 (08:45→21:00)
[2020-01-12] MEDS: ACETAMINOPHEN 650 MG SUPP.RECT RC SCH ×2 (08:45→20:32)
[2020-01-12] MEDS: SODIUM HYPOCHLORITE 0.25% (HALF STRENGTH) 480 ML BOTTLE TP SCH ×2 (08:45→21:00)
[2020-01-12] MEDS: THERAHONEY GEL 1.5 OZ TUBE TOP SCH ×2 (08:46→21:00)
[2020-01-12] MEDS: HYDROGEN PEROXIDE 3% 118 ML BOTTLE TP SCH ×2 (09:16→21:13)
[2020-01-12] MEDS: PANTOPRAZOLE SODIUM 40 MG VIAL IV SCH ×2 (09:30→21:00)
[2020-01-12 20:10] VITALS: BP 130/78
[2020-01-12] MEDS: ESTROGENS,CONJU VAGINAL CREAM 42.5 GM TUBE VG SCH (21:00)
[2020-01-13] MEDS: IPRATROPIUM BROMIDE 0.5 MG/2.5 ML NEBU NEB SCH ×6 (02:42→23:05)
[2020-01-13] MEDS: ALBUTEROL SULFATE 2.5 MG/3 ML NEBU NEB SCH ×6 (02:42→23:05)
[2020-01-13] MEDS: IV D5/ 0.9% NACL 1,000 ML IV SCH ×2 (05:33→21:15)
[2020-01-13 07:48] VITALS: BP 117/47
[2020-01-13] MEDS: SODIUM HYPOCHLORITE 0.25% (HALF STRENGTH) 480 ML BOTTLE TP SCH ×2 (08:18→21:10)
[2020-01-13] MEDS: ACETAMINOPHEN 650 MG SUPP.RECT RC SCH ×2 (08:18→21:10)
[2020-01-13] MEDS: COD LIVER OIL/ZINC OXIDE OINT 113 GM TUBE TP SCH ×2 (08:18→21:10)
[2020-01-13] MEDS: THERAHONEY GEL 1.5 OZ TUBE TOP SCH ×2 (08:18→21:10)
[2020-01-13] MEDS: NEOMY/BACITRA/POLYMYXIN B OINT UD PACKET TP SCH ×2 (08:19→21:11)
[2020-01-13] MEDS: HYDROGEN PEROXIDE 3% 118 ML BOTTLE TP SCH ×2 (09:00→20:45)
[2020-01-13] MEDS: PANTOPRAZOLE SODIUM 40 MG VIAL IV SCH ×2 (09:00→21:16)
[2020-01-13 20:33] VITALS: BP 113/59
[2020-01-13] MEDS: ESTROGENS,CONJU VAGINAL CREAM 42.5 GM TUBE VG SCH (21:11)
--- NOTE | 2020-01-14 01:20 | NUR ---
continue on iv d5n.s. @ 75ml/hr, protonix 49mg iv given, old gastromy site intact, suctioned with pale yellow secretion, afebrile, no respiratory distress noted, right upper arm midline patent, flushed per protocol. Addendum: 01/14/20 at 0123 by REYES ALFREDO RN protonix 40mg iv
[2020-01-14] MEDS: IPRATROPIUM BROMIDE 0.5 MG/2.5 ML NEBU NEB SCH ×6 (03:21→23:00)
[2020-01-14] MEDS: ALBUTEROL SULFATE 2.5 MG/3 ML NEBU NEB SCH ×6 (03:21→23:00)
[2020-01-14 07:24] VITALS: BP 107/57
[2020-01-14] MEDS: SODIUM HYPOCHLORITE 0.25% (HALF STRENGTH) 480 ML BOTTLE TP SCH ×2 (08:16→21:00)
[2020-01-14] MEDS: COD LIVER OIL/ZINC OXIDE OINT 113 GM TUBE TP SCH ×2 (08:16→21:50)
[2020-01-14] MEDS: THERAHONEY GEL 1.5 OZ TUBE TOP SCH ×2 (08:16→21:00)
[2020-01-14] MEDS: ACETAMINOPHEN 650 MG SUPP.RECT RC SCH ×2 (08:16→20:30)
[2020-01-14] MEDS: NEOMY/BACITRA/POLYMYXIN B OINT UD PACKET TP SCH ×2 (08:16→21:50)
[2020-01-14] MEDS: PANTOPRAZOLE SODIUM 40 MG VIAL IV SCH ×2 (09:25→21:00)
[2020-01-14] MEDS: IV D5/ 0.9% NACL 1,000 ML IV SCH ×2 (09:25→22:01)
[2020-01-14] MEDS: HYDROGEN PEROXIDE 3% 118 ML BOTTLE TP SCH ×2 (09:36→21:04)
--- NOTE | 2020-01-14 17:02 | NUR ---
Continue on Iv d5ns at 75 cc/hr,for hydration ,,midline on the R upper arm intact,no s/s of infection noted.old Gt site intact.
[2020-01-14 20:00] VITALS: BP 107/41
--- NOTE | 2020-01-14 20:30 | NUR ---
SEEN BY FERNANDO GAO WITH NNO.
[2020-01-14] MEDS: ESTROGENS,CONJU VAGINAL CREAM 42.5 GM TUBE VG SCH (21:51)
[2020-01-15] MEDS: ALBUTEROL SULFATE 2.5 MG/3 ML NEBU NEB SCH ×6 (03:01→23:50)
[2020-01-15] MEDS: IPRATROPIUM BROMIDE 0.5 MG/2.5 ML NEBU NEB SCH ×6 (03:01→23:50)
[2020-01-15] MEDS: ACETAMINOPHEN 650 MG SUPP.RECT RC SCH ×2 (08:35→20:30)
[2020-01-15] MEDS: NEOMY/BACITRA/POLYMYXIN B OINT UD PACKET TP SCH ×2 (08:35→21:00)
[2020-01-15] MEDS: SODIUM HYPOCHLORITE 0.25% (HALF STRENGTH) 480 ML BOTTLE TP SCH ×2 (08:35→21:00)
[2020-01-15] MEDS: THERAHONEY GEL 1.5 OZ TUBE TOP SCH ×2 (08:35→21:00)
[2020-01-15] MEDS: COD LIVER OIL/ZINC OXIDE OINT 113 GM TUBE TP SCH ×2 (08:35→21:00)
[2020-01-15] MEDS: PANTOPRAZOLE SODIUM 40 MG VIAL IV SCH ×2 (09:00→20:50)
[2020-01-15] MEDS: HYDROGEN PEROXIDE 3% 118 ML BOTTLE TP SCH ×2 (09:39→21:40)
[2020-01-15] MEDS: IV D5/ 0.9% NACL 1,000 ML IV SCH (10:33)
[2020-01-15 12:17] VITALS: BP 137/81
--- NOTE | 2020-01-15 16:00 | NUR ---
New orders noted from Dr Peterson for nutritional consult for PPN/TPN,pt on hydration D5 ns at 75 cc/hr since 01/04/20,Gt site almost close totally,Call Dr Kenny,left message to Aundrea ,to evaluate site ,for a new gt placement.
--- NOTE | 2020-01-15 19:08 | NUR ---
Seen by Janeen Renee NP,no new orders.Seen and examined By Dr Sylvester no new orders at this time.
[2020-01-15 20:08] VITALS: BP 111/47
[2020-01-15] MEDS: ESTROGENS,CONJU VAGINAL CREAM 42.5 GM TUBE VG SCH (21:00)
[2020-01-16] MEDS: IV D5/ 0.9% NACL 1,000 ML IV SCH (01:03)
[2020-01-16] MEDS: IPRATROPIUM BROMIDE 0.5 MG/2.5 ML NEBU NEB SCH ×6 (03:24→23:07)
[2020-01-16] MEDS: ALBUTEROL SULFATE 2.5 MG/3 ML NEBU NEB SCH ×6 (03:24→23:07)
[2020-01-16 06:16] LABS: BASOPHILS % (AUTO) 0.8 % (0.0-2.0); EOSINOPHILS # (AUTO) 0.4 K/uL (0.0-0.7); EOSINOPHILS % (AUTO) 5.9 % (0.0-7.0); HEMOGLOBIN 11.7 g/dL (10.9-14.3); LYMPHOCYTES # (AUTO) 1.4 K/uL (20.0-40.0); LYMPHOCYTES % (AUTO) 23.3 % (20.5-51.5); MEAN CORPUSCULAR HEMOGLOBIN 28.1 uug (24.7-32.8); MEAN CORPUSCULAR HGB CONC 33 g/dL (32.3-35.6); MEAN CORPUSCULAR VOLUME 86.6 fL (75.5-95.3); MONOCYTES # (AUTO) 0.6 K/uL (2.0-10.0); MONOCYTES % (AUTO) 10.5 % (0.0-11.0); NEUTROPHILS # (AUTO) 3.7 K/uL (1.8-8.9); NEUTROPHILS % (AUTO) 59.5 % (38.5-71.5); PLATELET COUNT (AUTO) 187 K/uL (179-408); RED BLOOD CELL COUNT(AUTO) 4.15 MIL/uL (3.63-4.92); WHITE BLOOD COUNT (AUTO) 6.2 K/uL (3.8-11.8)
[2020-01-16 06:32] LABS: CREATININE 0.7 mg/dL (0.6-1.3); MAGNESIUM 1.5 mg/dL (1.8-2.4); PHOSPHOROUS 2.7 mg/dL (2.5-4.9)
[2020-01-16] MEDS: HYDROGEN PEROXIDE 3% 118 ML BOTTLE TP SCH ×2 (07:16→20:46)
--- NOTE | 2020-01-16 07:20 | NUR ---
received phone called from lab pt has lab result k =2.2 endorsement to nurse am shift to notify md in am.
[2020-01-16 07:22] LABS: POTASSIUM 2.2 mmol/L (3.5-5.1)
[2020-01-16 07:30] VITALS: BP 111/64
[2020-01-16] MEDS: ACETAMINOPHEN 650 MG SUPP.RECT RC SCH ×2 (08:37→20:30)
[2020-01-16] MEDS: THERAHONEY GEL 1.5 OZ TUBE TOP SCH ×2 (09:00→21:56)
[2020-01-16] MEDS: SODIUM HYPOCHLORITE 0.25% (HALF STRENGTH) 480 ML BOTTLE TP SCH ×2 (09:00→21:57)
[2020-01-16] MEDS: COD LIVER OIL/ZINC OXIDE OINT 113 GM TUBE TP SCH ×2 (09:00→21:57)
[2020-01-16] MEDS: NEOMY/BACITRA/POLYMYXIN B OINT UD PACKET TP SCH ×2 (09:00→21:57)
[2020-01-16] MEDS: POTASSIUM CHLORIDE 50 ML IV SCH ×2 (09:11→10:18)
[2020-01-16] MEDS: PANTOPRAZOLE SODIUM 40 MG VIAL IV SCH ×2 (09:12→20:52)
[2020-01-16] MEDS: IV FAT EMULSIONS 20% 250 ML IV SCH (18:36)
[2020-01-16] MEDS: MAGNESIUM SULFATE/D5W 100 ML IV SCH ×2 (19:30→20:53)
[2020-01-16 20:00] VITALS: BP 118/56
--- NOTE | 2020-01-16 20:00 | NUR ---
PT WAS STARTED TPN 30 ML/HRS AND LIPID 20% 10.41 ML/HRS NO A/R NOTED.MAGNESIUM 1 [id number] WAS GIVEN ORDERED DUE TO (LOW MAGNESIUM 1.5) NO A/R NOTED.ACCU CHECK Q6 HRS PER PROTOCOL FOR TPN NO S/S HYPO OR HYPERGLYCEMIA.
[2020-01-16] MEDS: ESTROGENS,CONJU VAGINAL CREAM 42.5 GM TUBE VG SCH (21:57)
[2020-01-17] MEDS: IPRATROPIUM BROMIDE 0.5 MG/2.5 ML NEBU NEB SCH ×6 (03:18→23:50)
[2020-01-17] MEDS: ALBUTEROL SULFATE 2.5 MG/3 ML NEBU NEB SCH ×6 (03:18→23:50)
[2020-01-17] MEDS: BLOOD SUGAR DIAGNOSTIC 1 EACH STRIP VI SCH ×5 (05:36→23:27)
[2020-01-17 06:23] LABS: CREATININE 0.8 mg/dL (0.6-1.3); MAGNESIUM 2.4 mg/dL (1.8-2.4); PHOSPHOROUS 3.2 mg/dL (2.5-4.9)
[2020-01-17 06:33] LABS: POTASSIUM 2.4 mmol/L (3.5-5.1)
[2020-01-17 07:28] VITALS: BP 112/51
[2020-01-17] MEDS: PANTOPRAZOLE SODIUM 40 MG VIAL IV SCH ×2 (09:00→21:05)
[2020-01-17] MEDS: HYDROGEN PEROXIDE 3% 118 ML BOTTLE TP SCH ×2 (09:00→21:40)
[2020-01-17] MEDS: ACETAMINOPHEN 650 MG SUPP.RECT RC SCH ×2 (09:03→20:07)
[2020-01-17] MEDS: THERAHONEY GEL 1.5 OZ TUBE TOP SCH ×2 (09:03→21:00)
[2020-01-17] MEDS: COD LIVER OIL/ZINC OXIDE OINT 113 GM TUBE TP SCH ×2 (09:03→21:01)
[2020-01-17] MEDS: NEOMY/BACITRA/POLYMYXIN B OINT UD PACKET TP SCH ×2 (09:03→21:01)
[2020-01-17] MEDS: SODIUM HYPOCHLORITE 0.25% (HALF STRENGTH) 480 ML BOTTLE TP SCH ×2 (09:03→21:01)
--- NOTE | 2020-01-17 09:30 | NUR ---
Dr. Armendariz notified of k 2.4, new orders carried out to give kcl 40 meq ivpb x1 over 4hrs.
[2020-01-17] MEDS: POTASSIUM CHLORIDE 50 ML IV SCH ×4 (11:50→15:15)
--- NOTE | 2020-01-17 16:14 | NUR ---
Spoke with Dr. Ankita MD stated "I'm out of town, please call Dr. Grider", spoke with Dr. Grider, notified of patient's condition, stated that he will try to place a new gtube this weekend.
[2020-01-17 20:16] VITALS: BP 131/65
[2020-01-17] MEDS: ESTROGENS,CONJU VAGINAL CREAM 42.5 GM TUBE VG SCH (21:01)
--- NOTE | 2020-01-18 01:57 | NUR ---
tpn@ 30ml/hr, no hyperglycemia noted, right upper arm mid line patent, flushed per protocol, no respiratory distress noted.
[2020-01-18] MEDS: ALBUTEROL SULFATE 2.5 MG/3 ML NEBU NEB SCH ×6 (03:14→22:50)
[2020-01-18] MEDS: IPRATROPIUM BROMIDE 0.5 MG/2.5 ML NEBU NEB SCH ×6 (03:14→22:50)
[2020-01-18] MEDS: BLOOD SUGAR DIAGNOSTIC 1 EACH STRIP VI SCH ×3 (05:32→18:16)
[2020-01-18 07:56] VITALS: BP 118/60
[2020-01-18 08:10] LABS: MAGNESIUM 2.1 mg/dL (1.8-2.4); PHOSPHOROUS 3.8 mg/dL (2.5-4.9)
[2020-01-18 08:28] LABS: CREATININE 0.6 mg/dL (0.6-1.3)
[2020-01-18] MEDS: ACETAMINOPHEN 650 MG SUPP.RECT RC SCH ×2 (08:45→21:29)
[2020-01-18] MEDS: HYDROGEN PEROXIDE 3% 118 ML BOTTLE TP SCH ×2 (08:47→21:48)
[2020-01-18] MEDS: PANTOPRAZOLE SODIUM 40 MG VIAL IV SCH ×2 (09:00→21:15)
[2020-01-18] MEDS: COD LIVER OIL/ZINC OXIDE OINT 113 GM TUBE TP SCH ×2 (09:00→21:29)
[2020-01-18] MEDS: SODIUM HYPOCHLORITE 0.25% (HALF STRENGTH) 480 ML BOTTLE TP SCH ×2 (09:30→21:29)
[2020-01-18] MEDS: NEOMY/BACITRA/POLYMYXIN B OINT UD PACKET TP SCH ×2 (09:30→21:29)
[2020-01-18] MEDS: THERAHONEY GEL 1.5 OZ TUBE TOP SCH ×2 (09:40→21:29)
--- NOTE | 2020-01-18 09:40 | NUR ---
Dr. Armendariz notified today's k level 3.0, new order received to give kcl 40meq iv x1 over 4hrs.
--- NOTE | 2020-01-18 17:41 | NUR ---
Patient a+ox4, notified result for covid19 test was negative, unable to contact daughters, Ludmila (no answer), Agustina (phone disconnected).
[2020-01-18] MEDS: IV FAT EMULSIONS 20% 250 ML IV SCH (18:15)
[2020-01-18 20:00] VITALS: BP 132/57
[2020-01-18] MEDS: ESTROGENS,CONJU VAGINAL CREAM 42.5 GM TUBE VG SCH (21:30)
[2020-01-19] MEDS: BLOOD SUGAR DIAGNOSTIC 1 EACH STRIP VI SCH ×5 (00:58→23:52)
[2020-01-19] MEDS: ALBUTEROL SULFATE 2.5 MG/3 ML NEBU NEB SCH ×6 (02:53→22:52)
[2020-01-19] MEDS: IPRATROPIUM BROMIDE 0.5 MG/2.5 ML NEBU NEB SCH ×6 (02:53→22:52)
[2020-01-19 06:16] LABS: CREATININE 0.7 mg/dL (0.6-1.3); PHOSPHOROUS 3.6 mg/dL (2.5-4.9); POTASSIUM 3.2 mmol/L (3.5-5.1)
[2020-01-19 07:33] VITALS: BP 119/52
[2020-01-19] MEDS: HYDROGEN PEROXIDE 3% 118 ML BOTTLE TP SCH ×2 (08:20→20:40)
--- NOTE | 2020-01-19 08:40 | NUR ---
k 3.2 per [place] [facility] protocol, kcl 40 meq iv given x1.
[2020-01-19] MEDS: PANTOPRAZOLE SODIUM 40 MG VIAL IV SCH ×2 (08:46→21:12)
[2020-01-19] MEDS: COD LIVER OIL/ZINC OXIDE OINT 113 GM TUBE TP SCH ×2 (08:54→21:51)
[2020-01-19] MEDS: SODIUM HYPOCHLORITE 0.25% (HALF STRENGTH) 480 ML BOTTLE TP SCH ×2 (08:54→21:51)
[2020-01-19] MEDS: THERAHONEY GEL 1.5 OZ TUBE TOP SCH ×2 (08:54→21:51)
[2020-01-19] MEDS: ACETAMINOPHEN 650 MG SUPP.RECT RC SCH ×2 (08:54→20:30)
[2020-01-19] MEDS: NEOMY/BACITRA/POLYMYXIN B OINT UD PACKET TP SCH ×2 (08:54→21:51)
--- NOTE | 2020-01-19 16:32 | NUR ---
Covid19 test done.
[2020-01-19 20:04] VITALS: BP 110/59
[2020-01-19] MEDS: ESTROGENS,CONJU VAGINAL CREAM 42.5 GM TUBE VG SCH (21:51)
[2020-01-20] MEDS: IPRATROPIUM BROMIDE 0.5 MG/2.5 ML NEBU NEB SCH ×7 (02:57→23:24)
[2020-01-20] MEDS: ALBUTEROL SULFATE 2.5 MG/3 ML NEBU NEB SCH ×7 (02:57→23:24)
[2020-01-20] MEDS: BLOOD SUGAR DIAGNOSTIC 1 EACH STRIP VI SCH ×3 (05:02→17:22)
[2020-01-20 06:16] LABS: BASOPHILS # (AUTO) 0.1 K/uL (0.0-8.0); BASOPHILS % (AUTO) 0.9 % (0.0-2.0); EOSINOPHILS # (AUTO) 0.3 K/uL (0.0-0.7); HEMATOCRIT 36.8 % (31.2-41.9); HEMOGLOBIN 11.8 g/dL (10.9-14.3); LYMPHOCYTES # (AUTO) 1.8 K/uL (20.0-40.0); MEAN CORPUSCULAR HEMOGLOBIN 27.7 uug (24.7-32.8); MEAN CORPUSCULAR HGB CONC 32 g/dL (32.3-35.6); MEAN CORPUSCULAR VOLUME 86.2 fL (75.5-95.3); MONOCYTES # (AUTO) 0.6 K/uL (2.0-10.0); MONOCYTES % (AUTO) 10.3 % (0.0-11.0); NEUTROPHILS # (AUTO) 3.3 K/uL (1.8-8.9); NEUTROPHILS % (AUTO) 54.8 % (38.5-71.5); PLATELET COUNT (AUTO) 146 K/uL (179-408); RED BLOOD CELL COUNT(AUTO) 4.27 MIL/uL (3.63-4.92); WHITE BLOOD COUNT (AUTO) 6.1 K/uL (3.8-11.8)
[2020-01-20 06:24] LABS: CREATININE 0.8 mg/dL (0.6-1.3); MAGNESIUM 2.2 mg/dL (1.8-2.4); PHOSPHOROUS 4.2 mg/dL (2.5-4.9); POTASSIUM 3.6 mmol/L (3.5-5.1)
[2020-01-20] MEDS: HYDROGEN PEROXIDE 3% 118 ML BOTTLE TP SCH ×2 (07:29→19:41)
[2020-01-20 07:36] VITALS: BP 125/56
[2020-01-20] MEDS: THERAHONEY GEL 1.5 OZ TUBE TOP SCH ×2 (08:32→21:39)
[2020-01-20] MEDS: NEOMY/BACITRA/POLYMYXIN B OINT UD PACKET TP SCH ×2 (08:32→21:40)
[2020-01-20] MEDS: COD LIVER OIL/ZINC OXIDE OINT 113 GM TUBE TP SCH ×2 (08:32→21:39)
[2020-01-20] MEDS: SODIUM HYPOCHLORITE 0.25% (HALF STRENGTH) 480 ML BOTTLE TP SCH ×2 (08:32→21:39)
[2020-01-20] MEDS: ACETAMINOPHEN 650 MG SUPP.RECT RC SCH ×2 (08:32→20:30)
[2020-01-20] MEDS: PANTOPRAZOLE SODIUM 40 MG VIAL IV SCH ×2 (08:40→23:36)
--- NOTE | 2020-01-20 16:24 | NUR ---
DOROTHY called patient's daughter Ludmila [phone] to inform her of possible COVID-19 exposure and testing plan for the current week and next week, as mandated by [facility] regulations. Ludmila was not available, and therefore DOROTHY left Ludmila a voicemail message asking her to call this DOROTHY back. DOROTHY will inform Ludmila the reason for the call when Ludmila calls this DOROTHY back.
[2020-01-20] MEDS: IV FAT EMULSIONS 20% 250 ML IV SCH (17:53)
[2020-01-20 20:15] VITALS: BP 116/55
[2020-01-20] MEDS: ESTROGENS,CONJU VAGINAL CREAM 42.5 GM TUBE VG SCH (21:40)
[2020-01-21] MEDS: BLOOD SUGAR DIAGNOSTIC 1 EACH STRIP VI SCH ×4 (00:09→17:49)
[2020-01-21] MEDS: IPRATROPIUM BROMIDE 0.5 MG/2.5 ML NEBU NEB SCH ×6 (03:19→23:31)
[2020-01-21] MEDS: ALBUTEROL SULFATE 2.5 MG/3 ML NEBU NEB SCH ×6 (03:19→23:31)
[2020-01-21 07:24] VITALS: BP 109/48
[2020-01-21] MEDS: ACETAMINOPHEN 650 MG SUPP.RECT RC SCH ×2 (08:34→20:35)
[2020-01-21] MEDS: PANTOPRAZOLE SODIUM 40 MG VIAL IV SCH ×2 (09:00→21:00)
[2020-01-21] MEDS: COD LIVER OIL/ZINC OXIDE OINT 113 GM TUBE TP SCH ×2 (09:00→20:35)
[2020-01-21] MEDS: NEOMY/BACITRA/POLYMYXIN B OINT UD PACKET TP SCH ×2 (09:00→20:35)
[2020-01-21] MEDS: SODIUM HYPOCHLORITE 0.25% (HALF STRENGTH) 480 ML BOTTLE TP SCH ×2 (09:00→20:35)
[2020-01-21] MEDS: THERAHONEY GEL 1.5 OZ TUBE TOP SCH ×2 (09:00→20:35)
[2020-01-21] MEDS: HYDROGEN PEROXIDE 3% 118 ML BOTTLE TP SCH ×2 (09:37→21:36)
[2020-01-21 13:51] LABS: CREATININE 0.8 mg/dL (0.6-1.3); MAGNESIUM 2.2 mg/dL (1.8-2.4); PHOSPHOROUS 3.9 mg/dL (2.5-4.9); POTASSIUM 4.1 mmol/L (3.5-5.1)
--- NOTE | 2020-01-21 14:15 | NUR ---
Spoke to Dr Kim to follow up regarding the Gt replacement,the old Gt site has minimal drainage ,He Stated" he is not sure when he will able to do it this week,but probably on or monday"training program manager Bao ly.
--- NOTE | 2020-01-21 16:49 | NUR ---
pt continue on TPN and lipids ,midline on the R upper arm intact,no redness noted.
--- NOTE | 2020-01-21 17:47 | NUR ---
Pt aware the Covid 19 results are negative,Left message to Ludmila ross's daughter.
[2020-01-21] MEDS: ESTROGENS,CONJU VAGINAL CREAM 42.5 GM TUBE VG SCH (20:35)
[2020-01-21 20:46] VITALS: BP 122/52
[2020-01-22] MEDS: BLOOD SUGAR DIAGNOSTIC 1 EACH STRIP VI SCH ×5 (00:12→23:44)
[2020-01-22] MEDS: ALBUTEROL SULFATE 2.5 MG/3 ML NEBU NEB SCH ×6 (03:00→22:51)
[2020-01-22] MEDS: IPRATROPIUM BROMIDE 0.5 MG/2.5 ML NEBU NEB SCH ×6 (03:00→22:51)
--- NOTE | 2020-01-22 05:58 | NUR ---
continue on tpn @60ml/hr, right upper arm midline patent, flushed per protocol.
[2020-01-22 07:30] LABS: CREATININE 0.9 mg/dL (0.6-1.3); MAGNESIUM 2.3 mg/dL (1.8-2.4); PHOSPHOROUS 4.9 mg/dL (2.5-4.9); POTASSIUM 3.7 mmol/L (3.5-5.1)
[2020-01-22 08:00] VITALS: BP 121/46
[2020-01-22] MEDS: ACETAMINOPHEN 650 MG SUPP.RECT RC SCH ×2 (08:27→20:28)
[2020-01-22] MEDS: PANTOPRAZOLE SODIUM 40 MG VIAL IV SCH ×2 (09:00→20:25)
[2020-01-22] MEDS: NEOMY/BACITRA/POLYMYXIN B OINT UD PACKET TP SCH ×2 (09:00→20:26)
[2020-01-22] MEDS: COD LIVER OIL/ZINC OXIDE OINT 113 GM TUBE TP SCH ×2 (09:30→20:26)
[2020-01-22] MEDS: SODIUM HYPOCHLORITE 0.25% (HALF STRENGTH) 480 ML BOTTLE TP SCH ×2 (09:30→20:26)
[2020-01-22] MEDS: THERAHONEY GEL 1.5 OZ TUBE TOP SCH ×2 (09:45→20:25)
[2020-01-22] MEDS: HYDROGEN PEROXIDE 3% 118 ML BOTTLE TP SCH ×2 (09:45→20:08)
--- NOTE | 2020-01-22 10:00 | NUR ---
Dr Kim call with new orders to get consent for EGD with Peg placement. Addendum: 01/22/20 at 1723 by ROBERTO AGUILAR RN Per Dr Kim"Probably will do the procedure on monday"
--- NOTE | 2020-01-22 15:28 | NUR ---
DOROTHY sent patient's daughter Ludmila an email informing her that the next IDT meeting for the patient is scheduled for 01/22/2020 at 11am, and inviting her to join the meeting through speaker phone. DOROTHY will wait to hear back from Ludmila about whether is available to participate.
--- NOTE | 2020-01-22 17:30 | NUR ---
Continue PPN at 50 cc/hr and lipids,midline on the R upper arm intact no redness noted,Old Gt site intact,no redness o s/s of infection noted,no discharge noted .
[2020-01-22] MEDS: IV FAT EMULSIONS 20% 250 ML IV SCH (18:00)
--- NOTE | 2020-01-22 19:20 | NUR ---
Pt agreed to give consent for EGD with PEG placement ,but unable to sign tried to call Ludmila PT's daughter ,no answer.
[2020-01-22 20:16] VITALS: BP 107/47
[2020-01-22] MEDS: ESTROGENS,CONJU VAGINAL CREAM 42.5 GM TUBE VG SCH (20:26)
[2020-01-23] MEDS: ALBUTEROL SULFATE 2.5 MG/3 ML NEBU NEB SCH ×6 (03:01→23:00)
[2020-01-23] MEDS: IPRATROPIUM BROMIDE 0.5 MG/2.5 ML NEBU NEB SCH ×6 (03:01→23:00)
--- NOTE | 2020-01-23 04:31 | NUR ---
continue on tpn @60ml/hr, lipids @ 10.417ml/hr, right upper arm midline patent,flushed per protocol.
[2020-01-23] MEDS: BLOOD SUGAR DIAGNOSTIC 1 EACH STRIP VI SCH ×4 (05:18→23:09)
[2020-01-23 07:43] LABS: CREATININE 0.9 mg/dL (0.6-1.3); MAGNESIUM 2.3 mg/dL (1.8-2.4); PHOSPHOROUS 3.7 mg/dL (2.5-4.9)
[2020-01-23 07:53] VITALS: BP 102/61
[2020-01-23] MEDS: ACETAMINOPHEN 650 MG SUPP.RECT RC SCH ×2 (08:50→20:30)
[2020-01-23] MEDS: PANTOPRAZOLE SODIUM 40 MG VIAL IV SCH ×2 (09:00→21:50)
[2020-01-23] MEDS: HYDROGEN PEROXIDE 3% 118 ML BOTTLE TP SCH ×2 (09:00→21:04)
[2020-01-23] MEDS: SODIUM HYPOCHLORITE 0.25% (HALF STRENGTH) 480 ML BOTTLE TP SCH ×2 (09:00→21:00)
[2020-01-23] MEDS: NEOMY/BACITRA/POLYMYXIN B OINT UD PACKET TP SCH ×2 (09:00→21:00)
[2020-01-23] MEDS: THERAHONEY GEL 1.5 OZ TUBE TOP SCH ×2 (09:00→21:00)
[2020-01-23] MEDS: COD LIVER OIL/ZINC OXIDE OINT 113 GM TUBE TP SCH ×2 (09:00→21:00)
--- NOTE | 2020-01-23 17:00 | NUR ---
SEEN BY HALEY LopezAND WITH RAINEO.
--- NOTE | 2020-01-23 19:50 | NUR ---
RAKEL GARCIA WAS CALLED AND NOT PICKING UP PHONE.
[2020-01-23 20:00] VITALS: BP 104/50
[2020-01-23] MEDS: ESTROGENS,CONJU VAGINAL CREAM 42.5 GM TUBE VG SCH (21:00)
[2020-01-24] MEDS: IPRATROPIUM BROMIDE 0.5 MG/2.5 ML NEBU NEB SCH ×6 (03:01→23:24)
[2020-01-24] MEDS: ALBUTEROL SULFATE 2.5 MG/3 ML NEBU NEB SCH ×6 (03:01→23:24)
[2020-01-24] MEDS: BLOOD SUGAR DIAGNOSTIC 1 EACH STRIP VI SCH ×4 (05:30→23:08)
[2020-01-24 07:28] LABS: CREATININE 0.9 mg/dL (0.6-1.3); MAGNESIUM 2.2 mg/dL (1.8-2.4); PHOSPHOROUS 4.4 mg/dL (2.5-4.9); POTASSIUM 4.1 mmol/L (3.5-5.1)
[2020-01-24 07:38] VITALS: BP 107/64
--- NOTE | 2020-01-24 08:23 | NUR ---
RAKEL GARCIA ,PT'S DTR. WAS CALLED BUT NOT PICKING UP PHONE.
[2020-01-24] MEDS: ACETAMINOPHEN 650 MG SUPP.RECT RC SCH ×2 (08:25→20:30)
[2020-01-24] MEDS: HYDROGEN PEROXIDE 3% 118 ML BOTTLE TP SCH ×2 (08:40→21:40)
[2020-01-24] MEDS: PANTOPRAZOLE SODIUM 40 MG VIAL IV SCH ×2 (09:00→21:29)
[2020-01-24] MEDS: COD LIVER OIL/ZINC OXIDE OINT 113 GM TUBE TP SCH ×2 (09:30→21:55)
[2020-01-24] MEDS: SODIUM HYPOCHLORITE 0.25% (HALF STRENGTH) 480 ML BOTTLE TP SCH ×2 (09:30→21:55)
[2020-01-24] MEDS: THERAHONEY GEL 1.5 OZ TUBE TOP SCH ×2 (09:30→21:55)
[2020-01-24] MEDS: NEOMY/BACITRA/POLYMYXIN B OINT UD PACKET TP SCH ×2 (09:30→21:55)
--- NOTE | 2020-01-24 12:57 | NUR ---
RAKEL GARCIA WAS CALLED AT AN UPDATED PHONE # [phone] AND SHE WAS AWARE THAT PT. GAVE CONSENT FOR EGD AND PEG PLACEMENT TOMORROW AT 10:00 AND SHE WAS ALSO IN AGREEMENT.
--- NOTE | 2020-01-24 13:00 | NUR ---
NEW ORDERS FROM DR. BAEZA (G.I) CARRIED OUT.EGD AND PEG PLACEMENT TO BE DONE ON 01/25/20 AT 10:00,NURSING SERVICE ENGINE REPAIRER CHRISTINA ,CDL BULK DRIVER VIVIEN FROM OR AWARE,PT. SCHEDULED FOR PROCEDURE ALREADY.PER DR. BAEZA NO ORDER FOR LABS. NEEDED.
[2020-01-24] MEDS: IV FAT EMULSIONS 20% 250 ML IV SCH (17:58)
[2020-01-24] MEDS: ESTROGENS,CONJU VAGINAL CREAM 42.5 GM TUBE VG SCH (21:55)
[2020-01-24 22:00] VITALS: BP 110/50
[2020-01-25] MEDS: ALBUTEROL SULFATE 2.5 MG/3 ML NEBU NEB SCH ×6 (03:52→23:07)
[2020-01-25] MEDS: IPRATROPIUM BROMIDE 0.5 MG/2.5 ML NEBU NEB SCH ×6 (03:52→23:07)
--- NOTE | 2020-01-25 04:54 | NUR ---
PT IN BED ON TRACH WITH O2 NO SOB DISTRESS.CONTINUE ON TPN @60ML/HR AND LIPIDS @ 10.417 ML/HR ON (FRANCESCA)NO S/S HYPO OR HYPERGLYCEMIA NOTED.PT WILL HAS APPT FOR EGD WITH PEG PLACEMENT ON 01/25/20 @ 10.00AM.STOMA SITE CLEAN AND DRY COVER WITH DRY DRESSING.NO S/S OF PAIN NPO AFTER MIDNIGHT NOTED.
[2020-01-25] MEDS: BLOOD SUGAR DIAGNOSTIC 1 EACH STRIP VI SCH ×4 (05:58→23:34)
[2020-01-25 06:48] LABS: CREATININE 0.8 mg/dL (0.6-1.3); PHOSPHOROUS 4.8 mg/dL (2.5-4.9)
[2020-01-25] MEDS: HYDROGEN PEROXIDE 3% 118 ML BOTTLE TP SCH ×2 (08:09→21:12)
[2020-01-25] MEDS: PANTOPRAZOLE SODIUM 40 MG VIAL IV SCH (08:59)
[2020-01-25] MEDS: ACETAMINOPHEN 650 MG SUPP.RECT RC SCH (09:11)
[2020-01-25] MEDS: COD LIVER OIL/ZINC OXIDE OINT 113 GM TUBE TP SCH ×2 (09:43→21:54)
[2020-01-25] MEDS: NEOMY/BACITRA/POLYMYXIN B OINT UD PACKET TP SCH ×2 (09:43→21:54)
[2020-01-25] MEDS: SODIUM HYPOCHLORITE 0.25% (HALF STRENGTH) 480 ML BOTTLE TP SCH ×2 (09:43→21:54)
[2020-01-25] MEDS: THERAHONEY GEL 1.5 OZ TUBE TOP SCH ×2 (09:43→21:54)
--- NOTE | 2020-01-25 09:44 | NUR ---
PT. WAS TAKEN TO SURGERY ,REPORT WAS GIVEN TO HUMBLE DAWN AT THIS TIME ,RT AT BEDSIDE STABLE V/S (SEE RECORD)AFTER TIME OUT DONE.
--- NOTE | 2020-01-25 09:51 | NUR ---
PT.WAS ALERT AND ORIENTED AND AWARE OF PROCEDURE AND IN AGREEMENT AND HAD VIDEO ZOOM BEFORE LEAVING FOR 3 MIN. WITH PT'S DTRTamra ELLINGTON .
[2020-01-25 11:00] VITALS: BP 101/60
[2020-01-25 11:05] VITALS: BP 130/50
--- NOTE | 2020-01-25 11:05 | NUR ---
PT. BACK FROM RECOVERY REPORT OBTAINED FROM ISIDORO HAYWARD RN . AND PT. AWAKE AND ALERT AND ORIENTED,NO S/S OF ANY ACUTE DISTRESS ,NO SOB, DENIES ANY DISCOMFORT,STABLE V/S (SEE RECORD),SKIN DRY AND WARM TO TOUCH. NEW PEG OBSERVED INTACT AND PATENT. NEW ORDERS CARRIED OUT FROM DR. LALA (G.I) AND DR. GIULIA LAKE.PT'S DTR RAKEL AWARE THAT PT. IS BACK.
--- NOTE | 2020-01-25 11:42 | NUR ---
OWATONNA CLINICINO PHARMACIST AWARE OF NEW ORDERS.
--- NOTE | 2020-01-25 11:45 | NUR ---
[facility] PHARMACIST AWARE OF NEW ORDERS FROM DR GIULIA LAKE TO D/C TPN TOMORROW AND ALSO DISCUSSED RE: INSURANCE COVERAGE OF TPN THAT STILL NEEDED TO BE PROVIDED BY [facility] PHARMACIST.
--- NOTE | 2020-01-25 14:00 | NUR ---
GT/PEG was verified by auscultation with nurse Ivtet. Patient with no co any pain. site clean. No bleeding patient tolerated meds and flushing will continue to monitor
[2020-01-25] MEDS: PROTEIN SUPPLEMENT (PROSTAT) 30 ML LIQUID GT SCH ×2 (14:07→21:54)
[2020-01-25] MEDS: ARGININE/GLUTAMINE/CALCIUM BMB 1 EACH POWD.PACK GT SCH (17:10)
[2020-01-25] MEDS: BACLOFEN 10 MG TABLET GT SCH ×2 (17:10→23:34)
[2020-01-25 20:30] VITALS: BP 118/47
[2020-01-25] MEDS: ASCORBIC ACID 500 MG TABLET GT SCH (21:53)
[2020-01-25] MEDS: ACIDOPHILUS/BULGARICUS CHEW TAB GT SCH (21:53)
[2020-01-25] MEDS: MULTIVIT, IRON, MIN NO. 8, FA TABLET GT SCH (21:53)
[2020-01-25] MEDS: SIMVASTATIN 10 MG TABLET GT SCH (21:53)
[2020-01-25] MEDS: ESTROGENS,CONJU VAGINAL CREAM 42.5 GM TUBE VG SCH (21:54)
[2020-01-26] MEDS: JEVITY 1.2 1000 ML LIQUID GT PRN (02:35)
[2020-01-26] MEDS: ALBUTEROL SULFATE 2.5 MG/3 ML NEBU NEB SCH ×6 (03:05→22:49)
[2020-01-26] MEDS: IPRATROPIUM BROMIDE 0.5 MG/2.5 ML NEBU NEB SCH ×6 (03:05→22:49)
[2020-01-26] MEDS: ARGININE/GLUTAMINE/CALCIUM BMB 1 EACH POWD.PACK GT SCH ×2 (05:30→17:44)
[2020-01-26] MEDS: BLOOD SUGAR DIAGNOSTIC 1 EACH STRIP VI SCH ×3 (05:30→17:52)
[2020-01-26] MEDS: OMEPRAZOLE 20 MG CAPSULE.DR GT SCH (05:30)
[2020-01-26] MEDS: PROTEIN SUPPLEMENT (PROSTAT) 30 ML LIQUID GT SCH ×3 (05:30→21:50)
[2020-01-26] MEDS: BACLOFEN 10 MG TABLET GT SCH ×3 (05:30→17:44)
--- NOTE | 2020-01-26 06:24 | NUR ---
TPN IVPB WAS D/C AT 06.00AM FEEDING WAS STARTED ORDERED.CONTINUE MONITOR FOR N/V.
[2020-01-26 07:59] VITALS: BP 114/61
[2020-01-26] MEDS: HYDROGEN PEROXIDE 3% 118 ML BOTTLE TP SCH ×2 (08:41→21:00)
--- NOTE | 2020-01-26 09:02 | NUR ---
DR. GIULIA LAKE WAS PAGED RE:INTRALIPID ORDER .
[2020-01-26] MEDS: ACETAMINOPHEN 650 MG/20.3 ML LIQUID UDC GT SCH (09:14)
[2020-01-26] MEDS: ACIDOPHILUS/BULGARICUS CHEW TAB GT SCH ×2 (09:15→20:36)
[2020-01-26] MEDS: SODIUM HYPOCHLORITE 0.25% (HALF STRENGTH) 480 ML BOTTLE TP SCH ×2 (09:15→21:49)
[2020-01-26] MEDS: NEOMY/BACITRA/POLYMYXIN B OINT UD PACKET TP SCH ×2 (09:15→20:38)
[2020-01-26] MEDS: THERAHONEY GEL 1.5 OZ TUBE TOP SCH ×2 (09:15→21:49)
[2020-01-26] MEDS: COD LIVER OIL/ZINC OXIDE OINT 113 GM TUBE TP SCH ×2 (09:15→21:50)
[2020-01-26] MEDS: SERTRALINE 25 MG GT SCH (09:15)
--- NOTE | 2020-01-26 09:30 | NUR ---
NEW ORDERS CARRIED OUT FROM DR. GOYAL AND [facility] PHARMACIST AWARE TO F/U AND WITH NEW ORDERS CARRIED OUT.
[2020-01-26 10:30] LABS: CREATININE 0.8 mg/dL (0.6-1.3); POTASSIUM 4.4 mmol/L (3.5-5.1)
[2020-01-26] MEDS: MULTIVIT, IRON, MIN NO. 8, FA TABLET GT SCH (20:36)
[2020-01-26] MEDS: ASCORBIC ACID 500 MG TABLET GT SCH (20:36)
[2020-01-26] MEDS: SIMVASTATIN 10 MG TABLET GT SCH (20:37)
[2020-01-26] MEDS: ESTROGENS,CONJU VAGINAL CREAM 42.5 GM TUBE VG SCH (20:38)
[2020-01-26 20:46] VITALS: BP 122/60
[2020-01-27] MEDS: BACLOFEN 10 MG TABLET GT SCH ×4 (00:40→18:13)
[2020-01-27] MEDS: BLOOD SUGAR DIAGNOSTIC 1 EACH STRIP VI SCH ×4 (00:44→18:16)
[2020-01-27] MEDS: IPRATROPIUM BROMIDE 0.5 MG/2.5 ML NEBU NEB SCH ×6 (03:18→23:32)
[2020-01-27] MEDS: ALBUTEROL SULFATE 2.5 MG/3 ML NEBU NEB SCH ×6 (03:18→23:32)
[2020-01-27] MEDS: ARGININE/GLUTAMINE/CALCIUM BMB 1 EACH POWD.PACK GT SCH ×2 (05:39→18:13)
[2020-01-27] MEDS: PROTEIN SUPPLEMENT (PROSTAT) 30 ML LIQUID GT SCH ×3 (05:40→21:01)
[2020-01-27] MEDS: OMEPRAZOLE 20 MG CAPSULE.DR GT SCH (05:40)
[2020-01-27 06:58] LABS: CREATININE 0.9 mg/dL (0.6-1.3)
[2020-01-27 07:37] VITALS: BP 118/51
[2020-01-27] MEDS: ACETAMINOPHEN 650 MG/20.3 ML LIQUID UDC GT SCH (08:30)
[2020-01-27] MEDS: ACIDOPHILUS/BULGARICUS CHEW TAB GT SCH ×2 (09:00→21:01)
[2020-01-27] MEDS: SERTRALINE 25 MG GT SCH (09:00)
[2020-01-27] MEDS: NEOMY/BACITRA/POLYMYXIN B OINT UD PACKET TP SCH ×2 (09:00→21:01)
[2020-01-27] MEDS: COD LIVER OIL/ZINC OXIDE OINT 113 GM TUBE TP SCH ×2 (09:00→21:01)
[2020-01-27] MEDS: THERAHONEY GEL 1.5 OZ TUBE TOP SCH ×2 (09:00→21:01)
[2020-01-27] MEDS: SODIUM HYPOCHLORITE 0.25% (HALF STRENGTH) 480 ML BOTTLE TP SCH ×2 (09:00→21:01)
[2020-01-27] MEDS: HYDROGEN PEROXIDE 3% 118 ML BOTTLE TP SCH ×2 (09:33→21:07)
--- NOTE | 2020-01-27 15:30 | NUR ---
NEW ORDER FOR COVID 19 TEST CARRIED OUT.
--- NOTE | 2020-01-27 16:18 | NUR ---
Family was informed about Covid-19 test to be done with the pt. Family verbalized understanding.
[2020-01-27 20:12] VITALS: BP 129/50
[2020-01-27] MEDS: SIMVASTATIN 10 MG TABLET GT SCH (21:01)
[2020-01-27] MEDS: ESTROGENS,CONJU VAGINAL CREAM 42.5 GM TUBE VG SCH (21:01)
[2020-01-27] MEDS: MULTIVIT, IRON, MIN NO. 8, FA TABLET GT SCH (21:01)
[2020-01-27] MEDS: ASCORBIC ACID 500 MG TABLET GT SCH (21:01)
[2020-01-27] MEDS: TEMAZEPAM 7.5 MG CAPSULE GT PRN (22:40)
[2020-01-28] MEDS: BACLOFEN 10 MG TABLET GT SCH ×4 (00:42→18:00)
[2020-01-28] MEDS: BLOOD SUGAR DIAGNOSTIC 1 EACH STRIP VI SCH ×4 (00:42→18:00)
[2020-01-28] MEDS: ALBUTEROL SULFATE 2.5 MG/3 ML NEBU NEB SCH ×6 (03:16→23:01)
[2020-01-28] MEDS: IPRATROPIUM BROMIDE 0.5 MG/2.5 ML NEBU NEB SCH ×6 (03:16→23:01)
[2020-01-28] MEDS: ARGININE/GLUTAMINE/CALCIUM BMB 1 EACH POWD.PACK GT SCH ×2 (06:22→18:00)
[2020-01-28] MEDS: OMEPRAZOLE 20 MG CAPSULE.DR GT SCH (06:22)
[2020-01-28] MEDS: PROTEIN SUPPLEMENT (PROSTAT) 30 ML LIQUID GT SCH ×3 (06:22→21:03)
[2020-01-28 07:23] VITALS: BP 112/46
[2020-01-28] MEDS: SODIUM HYPOCHLORITE 0.25% (HALF STRENGTH) 480 ML BOTTLE TP SCH ×2 (08:54→20:07)
[2020-01-28] MEDS: SERTRALINE 25 MG GT SCH (08:54)
[2020-01-28] MEDS: THERAHONEY GEL 1.5 OZ TUBE TOP SCH ×2 (08:54→20:07)
[2020-01-28] MEDS: ACIDOPHILUS/BULGARICUS CHEW TAB GT SCH ×2 (08:54→20:06)
[2020-01-28] MEDS: ACETAMINOPHEN 650 MG/20.3 ML LIQUID UDC GT SCH (08:54)
[2020-01-28] MEDS: NEOMY/BACITRA/POLYMYXIN B OINT UD PACKET TP SCH ×2 (08:55→20:09)
[2020-01-28] MEDS: COD LIVER OIL/ZINC OXIDE OINT 113 GM TUBE TP SCH ×2 (08:55→20:07)
[2020-01-28] MEDS: HYDROGEN PEROXIDE 3% 118 ML BOTTLE TP SCH ×2 (09:07→20:08)
--- NOTE | 2020-01-28 15:31 | NUR ---
INTERDISCIPLINARY PLAN OF CARE CONFERENCE was held today. Patient's daughter was not available to participate in the meeting. Dr. Sylvester and the Interdisciplinary Team reviewed the current plan of care in detail. RN reported on patient's medical condition, and stated that patient's g-tube was recently replaced. See RN IDT conference notes. No major changes in medical condition were reported by nursing or by other disciplines. See all other disciplines IDT notes and physician's progress notes for additional details.
[2020-01-28] MEDS: MULTIVIT, IRON, MIN NO. 8, FA TABLET GT SCH (20:06)
[2020-01-28] MEDS: ASCORBIC ACID 500 MG TABLET GT SCH (20:06)
[2020-01-28] MEDS: SIMVASTATIN 10 MG TABLET GT SCH (20:07)
[2020-01-28] MEDS: ESTROGENS,CONJU VAGINAL CREAM 42.5 GM TUBE VG SCH (20:09)
[2020-01-28 20:13] VITALS: BP 122/50
[2020-01-29] MEDS: BACLOFEN 10 MG TABLET GT SCH ×5 (00:04→23:19)
[2020-01-29] MEDS: BLOOD SUGAR DIAGNOSTIC 1 EACH STRIP VI SCH ×3 (00:07→12:20)
[2020-01-29] MEDS: IPRATROPIUM BROMIDE 0.5 MG/2.5 ML NEBU NEB SCH ×6 (02:36→23:05)
[2020-01-29] MEDS: ALBUTEROL SULFATE 2.5 MG/3 ML NEBU NEB SCH ×6 (02:36→23:05)
[2020-01-29] MEDS: PROTEIN SUPPLEMENT (PROSTAT) 30 ML LIQUID GT SCH ×3 (05:52→22:00)
[2020-01-29] MEDS: OMEPRAZOLE 20 MG CAPSULE.DR GT SCH (05:52)
[2020-01-29] MEDS: ARGININE/GLUTAMINE/CALCIUM BMB 1 EACH POWD.PACK GT SCH ×2 (05:52→18:14)
[2020-01-29] MEDS: JEVITY 1.2 1000 ML LIQUID GT PRN (05:56)
[2020-01-29 08:00] VITALS: BP 119/50
[2020-01-29] MEDS: ACETAMINOPHEN 650 MG/20.3 ML LIQUID UDC GT SCH (08:19)
[2020-01-29] MEDS: ACIDOPHILUS/BULGARICUS CHEW TAB GT SCH ×2 (08:19→20:41)
[2020-01-29] MEDS: THERAHONEY GEL 1.5 OZ TUBE TOP SCH ×2 (08:23→20:42)
[2020-01-29] MEDS: COD LIVER OIL/ZINC OXIDE OINT 113 GM TUBE TP SCH ×2 (08:23→20:42)
[2020-01-29] MEDS: SERTRALINE 25 MG GT SCH (08:23)
[2020-01-29] MEDS: NEOMY/BACITRA/POLYMYXIN B OINT UD PACKET TP SCH ×2 (08:23→20:43)
[2020-01-29] MEDS: SODIUM HYPOCHLORITE 0.25% (HALF STRENGTH) 480 ML BOTTLE TP SCH ×2 (08:23→20:42)
[2020-01-29] MEDS: HYDROGEN PEROXIDE 3% 118 ML BOTTLE TP SCH ×2 (09:00→20:47)
--- NOTE | 2020-01-29 18:32 | NUR ---
Pt notified COVID 19 results is negative.
--- NOTE | 2020-01-29 19:00 | NUR ---
MIdline discontinue as ordered,procedure tolerated well,no bleeding noted,pressure dressing applied.
[2020-01-29 20:12] VITALS: BP 109/70
[2020-01-29] MEDS: ASCORBIC ACID 500 MG TABLET GT SCH (20:41)
[2020-01-29] MEDS: MULTIVIT, IRON, MIN NO. 8, FA TABLET GT SCH (20:41)
[2020-01-29] MEDS: SIMVASTATIN 10 MG TABLET GT SCH (20:42)
[2020-01-29] MEDS: ESTROGENS,CONJU VAGINAL CREAM 42.5 GM TUBE VG SCH (20:43)
[2020-01-29] MEDS: ACETAMINOPHEN 650 MG/20 ML UDC- SA PATIENTS-PAIN ONLY GT PRN (23:49)
[2020-01-30] MEDS: IPRATROPIUM BROMIDE 0.5 MG/2.5 ML NEBU NEB SCH ×6 (03:00→23:01)
[2020-01-30] MEDS: ALBUTEROL SULFATE 2.5 MG/3 ML NEBU NEB SCH ×6 (03:00→23:01)
[2020-01-30] MEDS: ARGININE/GLUTAMINE/CALCIUM BMB 1 EACH POWD.PACK GT SCH ×2 (05:29→17:23)
[2020-01-30] MEDS: PROTEIN SUPPLEMENT (PROSTAT) 30 ML LIQUID GT SCH ×3 (05:29→21:22)
[2020-01-30] MEDS: OMEPRAZOLE 20 MG CAPSULE.DR GT SCH (05:29)
[2020-01-30] MEDS: BACLOFEN 10 MG TABLET GT SCH ×4 (05:29→23:01)
[2020-01-30] MEDS: JEVITY 1.2 1000 ML LIQUID GT PRN (05:30)
[2020-01-30 07:44] VITALS: BP 104/52
[2020-01-30] MEDS: THERAHONEY GEL 1.5 OZ TUBE TOP SCH ×2 (08:53→21:21)
[2020-01-30] MEDS: SERTRALINE 25 MG GT SCH (08:53)
[2020-01-30] MEDS: ACIDOPHILUS/BULGARICUS CHEW TAB GT SCH ×2 (08:53→21:21)
[2020-01-30] MEDS: COD LIVER OIL/ZINC OXIDE OINT 113 GM TUBE TP SCH ×2 (08:53→21:21)
[2020-01-30] MEDS: NEOMY/BACITRA/POLYMYXIN B OINT UD PACKET TP SCH ×2 (08:53→21:22)
[2020-01-30] MEDS: SODIUM HYPOCHLORITE 0.25% (HALF STRENGTH) 480 ML BOTTLE TP SCH ×2 (08:53→21:21)
[2020-01-30] MEDS: ACETAMINOPHEN 650 MG/20.3 ML LIQUID UDC GT SCH (08:53)
[2020-01-30] MEDS: HYDROGEN PEROXIDE 3% 118 ML BOTTLE TP SCH ×2 (09:50→20:53)
[2020-01-30] MEDS: MULTIVIT, IRON, MIN NO. 8, FA TABLET GT SCH (21:21)
[2020-01-30] MEDS: SIMVASTATIN 10 MG TABLET GT SCH (21:21)
[2020-01-30] MEDS: ASCORBIC ACID 500 MG TABLET GT SCH (21:21)
[2020-01-30] MEDS: ESTROGENS,CONJU VAGINAL CREAM 42.5 GM TUBE VG SCH (21:22)
[2020-01-30 22:24] VITALS: BP 108/62
[2020-01-31] MEDS: ALBUTEROL SULFATE 2.5 MG/3 ML NEBU NEB SCH ×6 (02:41→22:51)
[2020-01-31] MEDS: IPRATROPIUM BROMIDE 0.5 MG/2.5 ML NEBU NEB SCH ×6 (02:41→22:51)
[2020-01-31] MEDS: OMEPRAZOLE 20 MG CAPSULE.DR GT SCH (05:04)
[2020-01-31] MEDS: ARGININE/GLUTAMINE/CALCIUM BMB 1 EACH POWD.PACK GT SCH ×2 (05:04→17:49)
[2020-01-31] MEDS: BACLOFEN 10 MG TABLET GT SCH ×4 (05:04→23:10)
[2020-01-31] MEDS: PROTEIN SUPPLEMENT (PROSTAT) 30 ML LIQUID GT SCH ×3 (05:04→21:45)
[2020-01-31 07:49] VITALS: BP 107/51
[2020-01-31] MEDS: ACIDOPHILUS/BULGARICUS CHEW TAB GT SCH ×2 (08:42→21:45)
[2020-01-31] MEDS: ACETAMINOPHEN 650 MG/20.3 ML LIQUID UDC GT SCH (08:42)
[2020-01-31] MEDS: SODIUM HYPOCHLORITE 0.25% (HALF STRENGTH) 480 ML BOTTLE TP SCH ×2 (08:43→21:45)
[2020-01-31] MEDS: COD LIVER OIL/ZINC OXIDE OINT 113 GM TUBE TP SCH ×2 (08:43→21:45)
[2020-01-31] MEDS: THERAHONEY GEL 1.5 OZ TUBE TOP SCH ×2 (08:43→21:45)
[2020-01-31] MEDS: SERTRALINE 25 MG GT SCH (08:43)
[2020-01-31] MEDS: NEOMY/BACITRA/POLYMYXIN B OINT UD PACKET TP SCH ×2 (08:43→21:45)
[2020-01-31] MEDS: HYDROGEN PEROXIDE 3% 118 ML BOTTLE TP SCH ×2 (09:00→21:31)
[2020-01-31 20:51] VITALS: BP 108/58
[2020-01-31] MEDS: ESTROGENS,CONJU VAGINAL CREAM 42.5 GM TUBE VG SCH (21:45)
[2020-01-31] MEDS: MULTIVIT, IRON, MIN NO. 8, FA TABLET GT SCH (21:45)
[2020-01-31] MEDS: TEMAZEPAM 7.5 MG CAPSULE GT PRN (21:45)
[2020-01-31] MEDS: SIMVASTATIN 10 MG TABLET GT SCH (21:45)
[2020-01-31] MEDS: ASCORBIC ACID 500 MG TABLET GT SCH (21:45)
[2020-02-01] MEDS: IPRATROPIUM BROMIDE 0.5 MG/2.5 ML NEBU NEB SCH ×6 (02:51→23:12)
[2020-02-01] MEDS: ALBUTEROL SULFATE 2.5 MG/3 ML NEBU NEB SCH ×6 (02:51→23:12)
[2020-02-01] MEDS: PROTEIN SUPPLEMENT (PROSTAT) 30 ML LIQUID GT SCH ×3 (05:24→21:31)
[2020-02-01] MEDS: JEVITY 1.2 1000 ML LIQUID GT PRN (05:24)
[2020-02-01] MEDS: ARGININE/GLUTAMINE/CALCIUM BMB 1 EACH POWD.PACK GT SCH ×2 (05:24→17:52)
[2020-02-01] MEDS: OMEPRAZOLE 20 MG CAPSULE.DR GT SCH (05:24)
[2020-02-01] MEDS: BACLOFEN 10 MG TABLET GT SCH ×3 (05:24→17:52)
[2020-02-01 08:00] VITALS: BP 107/62
[2020-02-01] MEDS: HYDROGEN PEROXIDE 3% 118 ML BOTTLE TP SCH ×2 (08:15→21:02)
[2020-02-01] MEDS: SODIUM HYPOCHLORITE 0.25% (HALF STRENGTH) 480 ML BOTTLE TP SCH (08:59)
[2020-02-01] MEDS: SERTRALINE 25 MG GT SCH (08:59)
[2020-02-01] MEDS: NEOMY/BACITRA/POLYMYXIN B OINT UD PACKET TP SCH ×2 (08:59→21:31)
[2020-02-01] MEDS: ACETAMINOPHEN 650 MG/20.3 ML LIQUID UDC GT SCH (08:59)
[2020-02-01] MEDS: THERAHONEY GEL 1.5 OZ TUBE TOP SCH ×2 (08:59→21:31)
[2020-02-01] MEDS: ACIDOPHILUS/BULGARICUS CHEW TAB GT SCH ×2 (08:59→21:31)
[2020-02-01] MEDS: COD LIVER OIL/ZINC OXIDE OINT 113 GM TUBE TP SCH ×2 (08:59→21:31)
--- NOTE | 2020-02-01 19:22 | NUR ---
Sacral wound tx renewed and carried out.
[2020-02-01 20:04] VITALS: BP 107/54
[2020-02-01] MEDS: MULTIVIT, IRON, MIN NO. 8, FA TABLET GT SCH (21:31)
[2020-02-01] MEDS: SIMVASTATIN 10 MG TABLET GT SCH (21:31)
[2020-02-01] MEDS: ASCORBIC ACID 500 MG TABLET GT SCH (21:31)
[2020-02-01] MEDS: SODIUM HYPOCHLORITE 0.125% (QUARTER STRENGTH) 473 ML BOTTLE TP SCH (21:31)
[2020-02-01] MEDS: ESTROGENS,CONJU VAGINAL CREAM 42.5 GM TUBE VG SCH (21:31)
[2020-02-02] MEDS: BACLOFEN 10 MG TABLET GT SCH ×4 (00:28→17:30)
[2020-02-02] MEDS: IPRATROPIUM BROMIDE 0.5 MG/2.5 ML NEBU NEB SCH ×6 (03:12→23:20)
[2020-02-02] MEDS: ALBUTEROL SULFATE 2.5 MG/3 ML NEBU NEB SCH ×6 (03:12→23:20)
[2020-02-02] MEDS: PROTEIN SUPPLEMENT (PROSTAT) 30 ML LIQUID GT SCH ×3 (05:28→21:58)
[2020-02-02] MEDS: ARGININE/GLUTAMINE/CALCIUM BMB 1 EACH POWD.PACK GT SCH ×2 (05:28→17:30)
[2020-02-02] MEDS: OMEPRAZOLE 20 MG CAPSULE.DR GT SCH (05:28)
[2020-02-02 08:07] VITALS: BP 93/41
[2020-02-02] MEDS: HYDROGEN PEROXIDE 3% 118 ML BOTTLE TP SCH ×2 (08:15→21:35)
[2020-02-02] MEDS: ACIDOPHILUS/BULGARICUS CHEW TAB GT SCH ×2 (09:18→21:57)
[2020-02-02] MEDS: SERTRALINE 25 MG GT SCH (09:18)
[2020-02-02] MEDS: ACETAMINOPHEN 650 MG/20.3 ML LIQUID UDC GT SCH (09:18)
[2020-02-02] MEDS: THERAHONEY GEL 1.5 OZ TUBE TOP SCH ×2 (09:18→21:58)
[2020-02-02] MEDS: SODIUM HYPOCHLORITE 0.125% (QUARTER STRENGTH) 473 ML BOTTLE TP SCH ×2 (09:18→21:58)
[2020-02-02] MEDS: NEOMY/BACITRA/POLYMYXIN B OINT UD PACKET TP SCH ×2 (09:18→21:58)
[2020-02-02] MEDS: COD LIVER OIL/ZINC OXIDE OINT 113 GM TUBE TP SCH ×2 (09:18→21:58)
[2020-02-02 20:08] VITALS: BP 111/49
[2020-02-02] MEDS: SIMVASTATIN 10 MG TABLET GT SCH (21:57)
[2020-02-02] MEDS: MULTIVIT, IRON, MIN NO. 8, FA TABLET GT SCH (21:57)
[2020-02-02] MEDS: ASCORBIC ACID 500 MG TABLET GT SCH (21:57)
[2020-02-02] MEDS: ESTROGENS,CONJU VAGINAL CREAM 42.5 GM TUBE VG SCH (21:58)
[2020-02-03] MEDS: IPRATROPIUM BROMIDE 0.5 MG/2.5 ML NEBU NEB SCH ×6 (03:46→23:10)
[2020-02-03] MEDS: ALBUTEROL SULFATE 2.5 MG/3 ML NEBU NEB SCH ×6 (03:46→23:10)
[2020-02-03] MEDS: ARGININE/GLUTAMINE/CALCIUM BMB 1 EACH POWD.PACK GT SCH ×2 (06:01→17:11)
[2020-02-03] MEDS: OMEPRAZOLE 20 MG CAPSULE.DR GT SCH (06:01)
[2020-02-03] MEDS: PROTEIN SUPPLEMENT (PROSTAT) 30 ML LIQUID GT SCH ×3 (06:01→21:45)
[2020-02-03] MEDS: BACLOFEN 10 MG TABLET GT SCH ×4 (06:01→17:11)
[2020-02-03] MEDS: JEVITY 1.2 1000 ML LIQUID GT PRN (07:02)
[2020-02-03 07:38] VITALS: BP 98/52
[2020-02-03] MEDS: HYDROGEN PEROXIDE 3% 118 ML BOTTLE TP SCH ×2 (07:45→21:56)
[2020-02-03] MEDS: ACETAMINOPHEN 650 MG/20.3 ML LIQUID UDC GT SCH (08:20)
[2020-02-03] MEDS: ACIDOPHILUS/BULGARICUS CHEW TAB GT SCH ×2 (08:21→21:43)
[2020-02-03] MEDS: NEOMY/BACITRA/POLYMYXIN B OINT UD PACKET TP SCH ×2 (08:23→21:45)
[2020-02-03] MEDS: SERTRALINE 25 MG GT SCH (08:23)
[2020-02-03] MEDS: SODIUM HYPOCHLORITE 0.125% (QUARTER STRENGTH) 473 ML BOTTLE TP SCH ×2 (09:15→21:45)
[2020-02-03] MEDS: THERAHONEY GEL 1.5 OZ TUBE TOP SCH ×2 (09:15→21:45)
[2020-02-03] MEDS: COD LIVER OIL/ZINC OXIDE OINT 113 GM TUBE TP SCH ×2 (09:16→21:45)
[2020-02-03 20:05] VITALS: BP 111/46
[2020-02-03] MEDS: ASCORBIC ACID 500 MG TABLET GT SCH (21:43)
[2020-02-03] MEDS: MULTIVIT, IRON, MIN NO. 8, FA TABLET GT SCH (21:43)
[2020-02-03] MEDS: ESTROGENS,CONJU VAGINAL CREAM 42.5 GM TUBE VG SCH (21:45)
[2020-02-03] MEDS: SIMVASTATIN 10 MG TABLET GT SCH (21:45)
[2020-02-04] MEDS: BACLOFEN 10 MG TABLET GT SCH ×4 (00:30→17:21)
[2020-02-04] MEDS: ALBUTEROL SULFATE 2.5 MG/3 ML NEBU NEB SCH ×6 (03:11→23:03)
[2020-02-04] MEDS: IPRATROPIUM BROMIDE 0.5 MG/2.5 ML NEBU NEB SCH ×6 (03:11→23:03)
[2020-02-04] MEDS: ARGININE/GLUTAMINE/CALCIUM BMB 1 EACH POWD.PACK GT SCH ×2 (05:48→17:21)
[2020-02-04] MEDS: OMEPRAZOLE 20 MG CAPSULE.DR GT SCH (05:48)
[2020-02-04] MEDS: JEVITY 1.2 1000 ML LIQUID GT PRN (05:48)
[2020-02-04] MEDS: PROTEIN SUPPLEMENT (PROSTAT) 30 ML LIQUID GT SCH ×3 (05:48→22:12)
[2020-02-04 07:41] VITALS: BP 126/50
[2020-02-04] MEDS: ACETAMINOPHEN 650 MG/20.3 ML LIQUID UDC GT SCH (09:07)
[2020-02-04] MEDS: SODIUM HYPOCHLORITE 0.125% (QUARTER STRENGTH) 473 ML BOTTLE TP SCH ×2 (09:07→20:07)
[2020-02-04] MEDS: ACIDOPHILUS/BULGARICUS CHEW TAB GT SCH ×2 (09:07→20:07)
[2020-02-04] MEDS: SERTRALINE 25 MG GT SCH (09:07)
[2020-02-04] MEDS: THERAHONEY GEL 1.5 OZ TUBE TOP SCH ×2 (09:07→20:07)
[2020-02-04] MEDS: COD LIVER OIL/ZINC OXIDE OINT 113 GM TUBE TP SCH ×2 (09:08→20:07)
[2020-02-04] MEDS: NEOMY/BACITRA/POLYMYXIN B OINT UD PACKET TP SCH ×2 (09:08→20:08)
[2020-02-04] MEDS: HYDROGEN PEROXIDE 3% 118 ML BOTTLE TP SCH ×2 (09:34→20:49)
[2020-02-04 20:01] VITALS: BP 100/47
[2020-02-04] MEDS: SIMVASTATIN 10 MG TABLET GT SCH (20:07)
[2020-02-04] MEDS: MULTIVIT, IRON, MIN NO. 8, FA TABLET GT SCH (20:07)
[2020-02-04] MEDS: ASCORBIC ACID 500 MG TABLET GT SCH (20:07)
[2020-02-04] MEDS: ESTROGENS,CONJU VAGINAL CREAM 42.5 GM TUBE VG SCH (20:08)
[2020-02-05] MEDS: BACLOFEN 10 MG TABLET GT SCH ×4 (00:28→17:22)
[2020-02-05] MEDS: IPRATROPIUM BROMIDE 0.5 MG/2.5 ML NEBU NEB SCH ×6 (03:07→23:18)
[2020-02-05] MEDS: ALBUTEROL SULFATE 2.5 MG/3 ML NEBU NEB SCH ×6 (03:07→23:18)
[2020-02-05] MEDS: PROTEIN SUPPLEMENT (PROSTAT) 30 ML LIQUID GT SCH ×3 (06:42→22:55)
[2020-02-05] MEDS: ARGININE/GLUTAMINE/CALCIUM BMB 1 EACH POWD.PACK GT SCH ×2 (06:42→17:22)
[2020-02-05] MEDS: OMEPRAZOLE 20 MG CAPSULE.DR GT SCH (06:42)
[2020-02-05] MEDS: JEVITY 1.2 1000 ML LIQUID GT PRN (06:43)
[2020-02-05 08:04] VITALS: BP 111/80
[2020-02-05] MEDS: HYDROGEN PEROXIDE 3% 118 ML BOTTLE TP SCH ×2 (08:10→21:00)
[2020-02-05] MEDS: ACETAMINOPHEN 650 MG/20.3 ML LIQUID UDC GT SCH (08:30)
[2020-02-05] MEDS: SODIUM HYPOCHLORITE 0.125% (QUARTER STRENGTH) 473 ML BOTTLE TP SCH ×2 (08:31→20:15)
[2020-02-05] MEDS: THERAHONEY GEL 1.5 OZ TUBE TOP SCH ×2 (08:31→20:15)
[2020-02-05] MEDS: ACIDOPHILUS/BULGARICUS CHEW TAB GT SCH ×2 (08:31→20:15)
[2020-02-05] MEDS: COD LIVER OIL/ZINC OXIDE OINT 113 GM TUBE TP SCH ×2 (08:31→20:15)
[2020-02-05] MEDS: SERTRALINE 25 MG GT SCH (08:32)
[2020-02-05] MEDS: NEOMY/BACITRA/POLYMYXIN B OINT UD PACKET TP SCH ×3 (08:32→20:15)
--- NOTE | 2020-02-05 18:00 | NUR ---
New orders for Gt site redness,carried out.
[2020-02-05 20:08] VITALS: BP 113/48
[2020-02-05] MEDS: MULTIVIT, IRON, MIN NO. 8, FA TABLET GT SCH (20:15)
[2020-02-05] MEDS: SIMVASTATIN 10 MG TABLET GT SCH (20:15)
[2020-02-05] MEDS: ASCORBIC ACID 500 MG TABLET GT SCH (20:15)
[2020-02-05] MEDS: ESTROGENS,CONJU VAGINAL CREAM 42.5 GM TUBE VG SCH (20:16)
[2020-02-05] MEDS: TEMAZEPAM 7.5 MG CAPSULE GT PRN (22:55)
[2020-02-05] MEDS: ACETAMINOPHEN 650 MG/20 ML UDC- SA PATIENTS-PAIN ONLY GT PRN (22:56)
[2020-02-06] MEDS: BACLOFEN 10 MG TABLET GT SCH ×5 (00:59→23:11)
[2020-02-06] MEDS: ALBUTEROL SULFATE 2.5 MG/3 ML NEBU NEB SCH ×6 (02:51→23:10)
[2020-02-06] MEDS: IPRATROPIUM BROMIDE 0.5 MG/2.5 ML NEBU NEB SCH ×6 (02:51→23:10)
[2020-02-06] MEDS: PROTEIN SUPPLEMENT (PROSTAT) 30 ML LIQUID GT SCH ×3 (06:32→22:14)
[2020-02-06] MEDS: OMEPRAZOLE 20 MG CAPSULE.DR GT SCH (06:32)
[2020-02-06] MEDS: JEVITY 1.2 1000 ML LIQUID GT PRN (06:32)
[2020-02-06] MEDS: ARGININE/GLUTAMINE/CALCIUM BMB 1 EACH POWD.PACK GT SCH ×2 (06:32→17:09)
[2020-02-06 07:55] VITALS: BP 105/64
[2020-02-06] MEDS: ACETAMINOPHEN 650 MG/20.3 ML LIQUID UDC GT SCH (08:12)
[2020-02-06] MEDS: ACIDOPHILUS/BULGARICUS CHEW TAB GT SCH ×2 (08:12→21:00)
[2020-02-06] MEDS: SERTRALINE 25 MG GT SCH (08:13)
[2020-02-06] MEDS: NEOMY/BACITRA/POLYMYXIN B OINT UD PACKET TP SCH ×4 (08:13→21:00)
[2020-02-06] MEDS: HYDROGEN PEROXIDE 3% 118 ML BOTTLE TP SCH ×2 (09:00→21:09)
--- NOTE | 2020-02-06 09:00 | NUR ---
SEEN BY RAKEL PARK) AND WITH RAINEO.
[2020-02-06] MEDS: THERAHONEY GEL 1.5 OZ TUBE TOP SCH ×2 (09:34→21:00)
[2020-02-06] MEDS: SODIUM HYPOCHLORITE 0.125% (QUARTER STRENGTH) 473 ML BOTTLE TP SCH ×2 (09:35→21:00)
[2020-02-06] MEDS: COD LIVER OIL/ZINC OXIDE OINT 113 GM TUBE TP SCH ×2 (09:35→21:00)
--- NOTE | 2020-02-06 15:00 | NUR ---
SEEN BY HALEY Crow.Freedom) AND WITH GAY.
[2020-02-06 20:00] VITALS: BP 120/57
[2020-02-06] MEDS: MULTIVIT, IRON, MIN NO. 8, FA TABLET GT SCH (21:00)
[2020-02-06] MEDS: ESTROGENS,CONJU VAGINAL CREAM 42.5 GM TUBE VG SCH (21:00)
[2020-02-06] MEDS: ASCORBIC ACID 500 MG TABLET GT SCH (21:00)
[2020-02-06] MEDS: SIMVASTATIN 10 MG TABLET GT SCH (21:00)
[2020-02-07] MEDS: IPRATROPIUM BROMIDE 0.5 MG/2.5 ML NEBU NEB SCH ×6 (03:10→23:24)
[2020-02-07] MEDS: ALBUTEROL SULFATE 2.5 MG/3 ML NEBU NEB SCH ×6 (03:10→23:24)
[2020-02-07] MEDS: JEVITY 1.2 1000 ML LIQUID GT PRN (04:52)
[2020-02-07] MEDS: PROTEIN SUPPLEMENT (PROSTAT) 30 ML LIQUID GT SCH ×3 (05:02→22:01)
[2020-02-07] MEDS: BACLOFEN 10 MG TABLET GT SCH ×3 (05:02→17:35)
[2020-02-07] MEDS: ARGININE/GLUTAMINE/CALCIUM BMB 1 EACH POWD.PACK GT SCH ×2 (05:02→17:35)
[2020-02-07] MEDS: OMEPRAZOLE 20 MG CAPSULE.DR GT SCH (05:02)
[2020-02-07 07:54] VITALS: BP 106/52
[2020-02-07] MEDS: ACETAMINOPHEN 650 MG/20.3 ML LIQUID UDC GT SCH (08:30)
[2020-02-07] MEDS: COD LIVER OIL/ZINC OXIDE OINT 113 GM TUBE TP SCH ×2 (08:30→21:00)
[2020-02-07] MEDS: SERTRALINE 25 MG GT SCH (08:30)
[2020-02-07] MEDS: THERAHONEY GEL 1.5 OZ TUBE TOP SCH ×2 (08:30→21:00)
[2020-02-07] MEDS: ACIDOPHILUS/BULGARICUS CHEW TAB GT SCH ×2 (08:30→21:00)
[2020-02-07] MEDS: NEOMY/BACITRA/POLYMYXIN B OINT UD PACKET TP SCH ×4 (08:30→21:00)
[2020-02-07] MEDS: SODIUM HYPOCHLORITE 0.125% (QUARTER STRENGTH) 473 ML BOTTLE TP SCH ×2 (08:30→21:00)
[2020-02-07] MEDS: HYDROGEN PEROXIDE 3% 118 ML BOTTLE TP SCH ×2 (09:00→21:40)
[2020-02-07] MEDS: MULTIVIT, IRON, MIN NO. 8, FA TABLET GT SCH (21:00)
[2020-02-07] MEDS: SIMVASTATIN 10 MG TABLET GT SCH (21:00)
[2020-02-07] MEDS: ASCORBIC ACID 500 MG TABLET GT SCH (21:00)
[2020-02-07] MEDS: ESTROGENS,CONJU VAGINAL CREAM 42.5 GM TUBE VG SCH (21:00)
[2020-02-07 23:09] VITALS: BP 111/42
[2020-02-08] MEDS: BACLOFEN 10 MG TABLET GT SCH ×4 (00:51→17:06)
[2020-02-08] MEDS: IPRATROPIUM BROMIDE 0.5 MG/2.5 ML NEBU NEB SCH ×6 (03:30→23:07)
[2020-02-08] MEDS: ALBUTEROL SULFATE 2.5 MG/3 ML NEBU NEB SCH ×6 (03:30→23:07)
[2020-02-08] MEDS: JEVITY 1.2 1000 ML LIQUID GT PRN (04:02)
[2020-02-08] MEDS: OMEPRAZOLE 20 MG CAPSULE.DR GT SCH (05:32)
[2020-02-08] MEDS: ARGININE/GLUTAMINE/CALCIUM BMB 1 EACH POWD.PACK GT SCH ×2 (05:32→17:06)
[2020-02-08] MEDS: PROTEIN SUPPLEMENT (PROSTAT) 30 ML LIQUID GT SCH ×3 (05:32→21:03)
[2020-02-08 07:43] VITALS: BP 106/61
[2020-02-08] MEDS: ACETAMINOPHEN 650 MG/20.3 ML LIQUID UDC GT SCH (08:13)
[2020-02-08] MEDS: ACIDOPHILUS/BULGARICUS CHEW TAB GT SCH ×2 (08:13→21:02)
[2020-02-08] MEDS: THERAHONEY GEL 1.5 OZ TUBE TOP SCH ×2 (08:14→21:03)
[2020-02-08] MEDS: COD LIVER OIL/ZINC OXIDE OINT 113 GM TUBE TP SCH ×2 (08:14→21:03)
[2020-02-08] MEDS: SODIUM HYPOCHLORITE 0.125% (QUARTER STRENGTH) 473 ML BOTTLE TP SCH ×2 (08:14→21:03)
[2020-02-08] MEDS: NEOMY/BACITRA/POLYMYXIN B OINT UD PACKET TP SCH ×4 (08:14→21:03)
[2020-02-08] MEDS: SERTRALINE 25 MG GT SCH (08:14)
[2020-02-08] MEDS: HYDROGEN PEROXIDE 3% 118 ML BOTTLE TP SCH ×2 (09:08→21:05)
--- NOTE | 2020-02-08 09:40 | NUR ---
SEEN BY DR. ALLEN AND WITH NNO.
[2020-02-08] MEDS: SIMVASTATIN 10 MG TABLET GT SCH (21:02)
[2020-02-08] MEDS: MULTIVIT, IRON, MIN NO. 8, FA TABLET GT SCH (21:02)
[2020-02-08] MEDS: ASCORBIC ACID 500 MG TABLET GT SCH (21:02)
[2020-02-08] MEDS: ESTROGENS,CONJU VAGINAL CREAM 42.5 GM TUBE VG SCH (21:03)
[2020-02-08 23:00] VITALS: BP 117/46
[2020-02-09] MEDS: BACLOFEN 10 MG TABLET GT SCH ×4 (00:04→17:30)
[2020-02-09] MEDS: IPRATROPIUM BROMIDE 0.5 MG/2.5 ML NEBU NEB SCH ×6 (03:09→22:45)
[2020-02-09] MEDS: ALBUTEROL SULFATE 2.5 MG/3 ML NEBU NEB SCH ×6 (03:09→22:45)
[2020-02-09] MEDS: JEVITY 1.2 1000 ML LIQUID GT PRN (03:58)
[2020-02-09] MEDS: PROTEIN SUPPLEMENT (PROSTAT) 30 ML LIQUID GT SCH ×3 (05:37→22:33)
[2020-02-09] MEDS: OMEPRAZOLE 20 MG CAPSULE.DR GT SCH (05:37)
[2020-02-09] MEDS: ARGININE/GLUTAMINE/CALCIUM BMB 1 EACH POWD.PACK GT SCH ×2 (05:37→17:30)
[2020-02-09 07:35] VITALS: BP 105/42
[2020-02-09] MEDS: ACIDOPHILUS/BULGARICUS CHEW TAB GT SCH ×2 (08:19→20:34)
[2020-02-09] MEDS: ACETAMINOPHEN 650 MG/20.3 ML LIQUID UDC GT SCH (08:19)
[2020-02-09] MEDS: SODIUM HYPOCHLORITE 0.125% (QUARTER STRENGTH) 473 ML BOTTLE TP SCH ×2 (08:20→21:00)
[2020-02-09] MEDS: NEOMY/BACITRA/POLYMYXIN B OINT UD PACKET TP SCH ×3 (08:20→21:00)
[2020-02-09] MEDS: SERTRALINE 25 MG GT SCH (08:20)
[2020-02-09] MEDS: THERAHONEY GEL 1.5 OZ TUBE TOP SCH ×2 (08:20→21:00)
[2020-02-09] MEDS: COD LIVER OIL/ZINC OXIDE OINT 113 GM TUBE TP SCH ×2 (08:20→21:00)
--- NOTE | 2020-02-09 08:31 | NUR ---
ORDER FOR TRIPLE ATB OINT. ON GT SITE FROM 01/05/20 D/C FROM DR. WALKER DUE TO IS A DUPLICATED ORDER.
[2020-02-09] MEDS: HYDROGEN PEROXIDE 3% 118 ML BOTTLE TP SCH ×2 (08:48→21:31)
[2020-02-09] MEDS: MULTIVIT, IRON, MIN NO. 8, FA TABLET GT SCH (20:34)
[2020-02-09] MEDS: ASCORBIC ACID 500 MG TABLET GT SCH (20:34)
[2020-02-09] MEDS: SIMVASTATIN 10 MG TABLET GT SCH (20:34)
[2020-02-09] MEDS: ESTROGENS,CONJU VAGINAL CREAM 42.5 GM TUBE VG SCH (21:00)
[2020-02-09 23:11] VITALS: BP 102/51
[2020-02-10] MEDS: BACLOFEN 10 MG TABLET GT SCH ×4 (00:55→17:45)
[2020-02-10] MEDS: ALBUTEROL SULFATE 2.5 MG/3 ML NEBU NEB SCH ×6 (03:10→23:07)
[2020-02-10] MEDS: IPRATROPIUM BROMIDE 0.5 MG/2.5 ML NEBU NEB SCH ×6 (03:10→23:07)
[2020-02-10] MEDS: ARGININE/GLUTAMINE/CALCIUM BMB 1 EACH POWD.PACK GT SCH ×2 (05:30→17:45)
[2020-02-10] MEDS: OMEPRAZOLE 20 MG CAPSULE.DR GT SCH (05:30)
[2020-02-10] MEDS: PROTEIN SUPPLEMENT (PROSTAT) 30 ML LIQUID GT SCH ×3 (05:30→21:32)
[2020-02-10] MEDS: JEVITY 1.2 1000 ML LIQUID GT PRN (07:06)
[2020-02-10 07:36] VITALS: BP 104/48
[2020-02-10] MEDS: HYDROGEN PEROXIDE 3% 118 ML BOTTLE TP SCH ×2 (08:25→21:21)
[2020-02-10] MEDS: ACETAMINOPHEN 650 MG/20.3 ML LIQUID UDC GT SCH (08:35)
[2020-02-10] MEDS: ACIDOPHILUS/BULGARICUS CHEW TAB GT SCH ×2 (08:35→21:31)
[2020-02-10] MEDS: THERAHONEY GEL 1.5 OZ TUBE TOP SCH ×2 (08:36→21:31)
[2020-02-10] MEDS: COD LIVER OIL/ZINC OXIDE OINT 113 GM TUBE TP SCH ×2 (08:36→21:31)
[2020-02-10] MEDS: SODIUM HYPOCHLORITE 0.125% (QUARTER STRENGTH) 473 ML BOTTLE TP SCH ×2 (08:36→21:31)
[2020-02-10] MEDS: SERTRALINE 25 MG GT SCH (08:36)
[2020-02-10] MEDS: NEOMY/BACITRA/POLYMYXIN B OINT UD PACKET TP SCH ×2 (08:36→21:31)
[2020-02-10 20:15] VITALS: BP 112/65
[2020-02-10 20:20] VITALS: BP 106/59
[2020-02-10] MEDS: ESTROGENS,CONJU VAGINAL CREAM 42.5 GM TUBE VG SCH (21:31)
[2020-02-10] MEDS: ASCORBIC ACID 500 MG TABLET GT SCH (21:31)
[2020-02-10] MEDS: MULTIVIT, IRON, MIN NO. 8, FA TABLET GT SCH (21:31)
[2020-02-10] MEDS: SIMVASTATIN 10 MG TABLET GT SCH (21:31)
[2020-02-11] MEDS: BACLOFEN 10 MG TABLET GT SCH ×4 (00:08→17:56)
[2020-02-11] MEDS: IPRATROPIUM BROMIDE 0.5 MG/2.5 ML NEBU NEB SCH ×6 (03:02→23:18)
[2020-02-11] MEDS: ALBUTEROL SULFATE 2.5 MG/3 ML NEBU NEB SCH ×6 (03:02→23:18)
[2020-02-11] MEDS: PROTEIN SUPPLEMENT (PROSTAT) 30 ML LIQUID GT SCH ×3 (04:41→21:16)
[2020-02-11] MEDS: ARGININE/GLUTAMINE/CALCIUM BMB 1 EACH POWD.PACK GT SCH ×2 (04:41→17:56)
[2020-02-11] MEDS: OMEPRAZOLE 20 MG CAPSULE.DR GT SCH (04:41)
[2020-02-11] MEDS: JEVITY 1.2 1000 ML LIQUID GT PRN (06:50)
[2020-02-11] MEDS: HYDROGEN PEROXIDE 3% 118 ML BOTTLE TP SCH ×2 (07:16→21:40)
[2020-02-11 07:23] VITALS: BP 117/43
[2020-02-11] MEDS: SERTRALINE 25 MG GT SCH (08:20)
[2020-02-11] MEDS: ACETAMINOPHEN 650 MG/20.3 ML LIQUID UDC GT SCH (08:20)
[2020-02-11] MEDS: ACIDOPHILUS/BULGARICUS CHEW TAB GT SCH ×2 (08:20→21:15)
[2020-02-11] MEDS: NEOMY/BACITRA/POLYMYXIN B OINT UD PACKET TP SCH ×2 (08:21→21:16)
[2020-02-11] MEDS: THERAHONEY GEL 1.5 OZ TUBE TOP SCH ×2 (09:02→21:16)
[2020-02-11] MEDS: SODIUM HYPOCHLORITE 0.125% (QUARTER STRENGTH) 473 ML BOTTLE TP SCH ×2 (09:02→21:16)
[2020-02-11] MEDS: COD LIVER OIL/ZINC OXIDE OINT 113 GM TUBE TP SCH ×2 (09:02→21:16)
[2020-02-11 20:00] VITALS: BP 110/55
[2020-02-11] MEDS: MULTIVIT, IRON, MIN NO. 8, FA TABLET GT SCH (21:15)
[2020-02-11] MEDS: ASCORBIC ACID 500 MG TABLET GT SCH (21:15)
[2020-02-11] MEDS: ESTROGENS,CONJU VAGINAL CREAM 42.5 GM TUBE VG SCH (21:16)
[2020-02-11] MEDS: SIMVASTATIN 10 MG TABLET GT SCH (21:16)
--- NOTE | 2020-02-11 21:40 | NUR ---
Received patient in stable respiratory condition on cool aerosol 40% FiO2. No SOB noted. Trach care done. Airway is patent and secured. Ambubag and spare trach at bedside. Will continue to monitor.
[2020-02-11] MEDS: TEMAZEPAM 7.5 MG CAPSULE GT PRN (23:00)
[2020-02-12] MEDS: BACLOFEN 10 MG TABLET GT SCH ×4 (00:42→17:19)
[2020-02-12] MEDS: ALBUTEROL SULFATE 2.5 MG/3 ML NEBU NEB SCH ×6 (04:16→23:23)
[2020-02-12] MEDS: IPRATROPIUM BROMIDE 0.5 MG/2.5 ML NEBU NEB SCH ×6 (04:16→23:23)
[2020-02-12] MEDS: JEVITY 1.2 1000 ML LIQUID GT PRN (06:49)
[2020-02-12] MEDS: ARGININE/GLUTAMINE/CALCIUM BMB 1 EACH POWD.PACK GT SCH ×2 (06:49→17:19)
[2020-02-12] MEDS: OMEPRAZOLE 20 MG CAPSULE.DR GT SCH (06:49)
[2020-02-12] MEDS: PROTEIN SUPPLEMENT (PROSTAT) 30 ML LIQUID GT SCH ×3 (06:49→22:18)
[2020-02-12] MEDS: HYDROGEN PEROXIDE 3% 118 ML BOTTLE TP SCH ×2 (07:40→19:15)
[2020-02-12 07:47] VITALS: BP 109/50
[2020-02-12] MEDS: ACETAMINOPHEN 650 MG/20.3 ML LIQUID UDC GT SCH (08:12)
[2020-02-12] MEDS: NEOMY/BACITRA/POLYMYXIN B OINT UD PACKET TP SCH ×2 (08:13→20:34)
[2020-02-12] MEDS: SERTRALINE 25 MG GT SCH (08:13)
[2020-02-12] MEDS: ACIDOPHILUS/BULGARICUS CHEW TAB GT SCH ×2 (08:13→20:33)
[2020-02-12] MEDS: COD LIVER OIL/ZINC OXIDE OINT 113 GM TUBE TP SCH ×2 (08:56→20:34)
[2020-02-12] MEDS: SODIUM HYPOCHLORITE 0.125% (QUARTER STRENGTH) 473 ML BOTTLE TP SCH ×2 (08:56→20:34)
[2020-02-12] MEDS: THERAHONEY GEL 1.5 OZ TUBE TOP SCH ×2 (08:56→20:34)
[2020-02-12 20:06] VITALS: BP 108/60
[2020-02-12] MEDS: MULTIVIT, IRON, MIN NO. 8, FA TABLET GT SCH (20:33)
[2020-02-12 20:34] VITALS: BP 108/60
[2020-02-12] MEDS: ASCORBIC ACID 500 MG TABLET GT SCH (20:34)
[2020-02-12] MEDS: ESTROGENS,CONJU VAGINAL CREAM 42.5 GM TUBE VG SCH (20:34)
[2020-02-12] MEDS: SIMVASTATIN 10 MG TABLET GT SCH (20:34)
[2020-02-12] MEDS: TEMAZEPAM 7.5 MG CAPSULE GT PRN (23:00)
[2020-02-13] MEDS: BACLOFEN 10 MG TABLET GT SCH ×4 (00:25→17:30)
[2020-02-13] MEDS: ALBUTEROL SULFATE 2.5 MG/3 ML NEBU NEB SCH ×6 (03:20→23:10)
[2020-02-13] MEDS: IPRATROPIUM BROMIDE 0.5 MG/2.5 ML NEBU NEB SCH ×6 (03:25→23:10)
[2020-02-13] MEDS: JEVITY 1.2 1000 ML LIQUID GT PRN (05:00)
[2020-02-13] MEDS: PROTEIN SUPPLEMENT (PROSTAT) 30 ML LIQUID GT SCH ×3 (05:59→21:52)
[2020-02-13] MEDS: OMEPRAZOLE 20 MG CAPSULE.DR GT SCH (05:59)
[2020-02-13] MEDS: ARGININE/GLUTAMINE/CALCIUM BMB 1 EACH POWD.PACK GT SCH ×2 (05:59→17:30)
[2020-02-13 07:37] VITALS: BP 127/56
[2020-02-13] MEDS: SODIUM HYPOCHLORITE 0.125% (QUARTER STRENGTH) 473 ML BOTTLE TP SCH ×2 (08:08→21:51)
[2020-02-13] MEDS: NEOMY/BACITRA/POLYMYXIN B OINT UD PACKET TP SCH ×2 (08:08→21:51)
[2020-02-13] MEDS: ACIDOPHILUS/BULGARICUS CHEW TAB GT SCH ×2 (08:08→21:51)
[2020-02-13] MEDS: ACETAMINOPHEN 650 MG/20.3 ML LIQUID UDC GT SCH (08:08)
[2020-02-13] MEDS: THERAHONEY GEL 1.5 OZ TUBE TOP SCH ×2 (08:08→21:51)
[2020-02-13] MEDS: SERTRALINE 25 MG GT SCH (08:08)
[2020-02-13] MEDS: COD LIVER OIL/ZINC OXIDE OINT 113 GM TUBE TP SCH ×2 (08:08→21:51)
[2020-02-13] MEDS: HYDROGEN PEROXIDE 3% 118 ML BOTTLE TP SCH ×2 (09:46→21:08)
[2020-02-13 20:03] VITALS: BP 132/80
[2020-02-13] MEDS: ASCORBIC ACID 500 MG TABLET GT SCH (21:51)
[2020-02-13] MEDS: ESTROGENS,CONJU VAGINAL CREAM 42.5 GM TUBE VG SCH (21:51)
[2020-02-13] MEDS: MULTIVIT, IRON, MIN NO. 8, FA TABLET GT SCH (21:51)
[2020-02-13] MEDS: SIMVASTATIN 10 MG TABLET GT SCH (21:51)
[2020-02-13] MEDS: TEMAZEPAM 7.5 MG CAPSULE GT PRN (22:00)
[2020-02-14] MEDS: BACLOFEN 10 MG TABLET GT SCH ×4 (00:08→17:17)
[2020-02-14] MEDS: IPRATROPIUM BROMIDE 0.5 MG/2.5 ML NEBU NEB SCH ×6 (03:11→23:06)
[2020-02-14] MEDS: ALBUTEROL SULFATE 2.5 MG/3 ML NEBU NEB SCH ×6 (03:11→23:06)
[2020-02-14] MEDS: PROTEIN SUPPLEMENT (PROSTAT) 30 ML LIQUID GT SCH ×3 (05:15→21:14)
[2020-02-14] MEDS: OMEPRAZOLE 20 MG CAPSULE.DR GT SCH (05:15)
[2020-02-14] MEDS: ARGININE/GLUTAMINE/CALCIUM BMB 1 EACH POWD.PACK GT SCH ×2 (05:15→17:17)
[2020-02-14 07:36] VITALS: BP 114/61
[2020-02-14] MEDS: ACETAMINOPHEN 650 MG/20.3 ML LIQUID UDC GT SCH (08:36)
[2020-02-14] MEDS: ACIDOPHILUS/BULGARICUS CHEW TAB GT SCH ×2 (08:54→21:11)
[2020-02-14] MEDS: SERTRALINE 25 MG GT SCH (08:54)
[2020-02-14] MEDS: THERAHONEY GEL 1.5 OZ TUBE TOP SCH ×2 (08:55→21:14)
[2020-02-14] MEDS: NEOMY/BACITRA/POLYMYXIN B OINT UD PACKET TP SCH ×2 (08:55→21:14)
[2020-02-14] MEDS: SODIUM HYPOCHLORITE 0.125% (QUARTER STRENGTH) 473 ML BOTTLE TP SCH ×2 (08:55→21:14)
[2020-02-14] MEDS: COD LIVER OIL/ZINC OXIDE OINT 113 GM TUBE TP SCH ×2 (08:55→21:14)
[2020-02-14] MEDS: JEVITY 1.2 1000 ML LIQUID GT PRN (08:58)
[2020-02-14] MEDS: HYDROGEN PEROXIDE 3% 118 ML BOTTLE TP SCH ×2 (09:02→21:15)
[2020-02-14 20:09] VITALS: BP 101/55
[2020-02-14] MEDS: SIMVASTATIN 10 MG TABLET GT SCH (21:11)
[2020-02-14] MEDS: ASCORBIC ACID 500 MG TABLET GT SCH (21:11)
[2020-02-14] MEDS: MULTIVIT, IRON, MIN NO. 8, FA TABLET GT SCH (21:11)
[2020-02-14] MEDS: ESTROGENS,CONJU VAGINAL CREAM 42.5 GM TUBE VG SCH (21:14)
[2020-02-15] MEDS: BACLOFEN 10 MG TABLET GT SCH ×4 (00:03→18:17)
[2020-02-15] MEDS: ALBUTEROL SULFATE 2.5 MG/3 ML NEBU NEB SCH ×6 (03:03→23:05)
[2020-02-15] MEDS: IPRATROPIUM BROMIDE 0.5 MG/2.5 ML NEBU NEB SCH ×6 (03:03→23:05)
[2020-02-15] MEDS: ARGININE/GLUTAMINE/CALCIUM BMB 1 EACH POWD.PACK GT SCH ×2 (05:39→18:17)
[2020-02-15] MEDS: OMEPRAZOLE 20 MG CAPSULE.DR GT SCH (05:39)
[2020-02-15] MEDS: PROTEIN SUPPLEMENT (PROSTAT) 30 ML LIQUID GT SCH ×3 (05:39→22:06)
[2020-02-15] MEDS: HYDROGEN PEROXIDE 3% 118 ML BOTTLE TP SCH ×2 (07:45→20:22)
[2020-02-15 08:05] VITALS: BP 101/60
[2020-02-15] MEDS: ACETAMINOPHEN 650 MG/20.3 ML LIQUID UDC GT SCH (08:56)
[2020-02-15] MEDS: ACIDOPHILUS/BULGARICUS CHEW TAB GT SCH ×2 (08:56→20:21)
[2020-02-15] MEDS: SERTRALINE 25 MG GT SCH (08:56)
[2020-02-15] MEDS: THERAHONEY GEL 1.5 OZ TUBE TOP SCH ×2 (08:57→20:22)
[2020-02-15] MEDS: NEOMY/BACITRA/POLYMYXIN B OINT UD PACKET TP SCH ×2 (08:58→20:22)
[2020-02-15] MEDS: COD LIVER OIL/ZINC OXIDE OINT 113 GM TUBE TP SCH ×2 (08:58→20:22)
[2020-02-15] MEDS: SODIUM HYPOCHLORITE 0.125% (QUARTER STRENGTH) 473 ML BOTTLE TP SCH ×2 (08:58→20:22)
[2020-02-15 20:08] VITALS: BP 101/56
[2020-02-15] MEDS: ASCORBIC ACID 500 MG TABLET GT SCH (20:21)
[2020-02-15] MEDS: MULTIVIT, IRON, MIN NO. 8, FA TABLET GT SCH (20:21)
[2020-02-15] MEDS: SIMVASTATIN 10 MG TABLET GT SCH (20:21)
[2020-02-15] MEDS: ESTROGENS,CONJU VAGINAL CREAM 42.5 GM TUBE VG SCH (20:22)
[2020-02-16] MEDS: BACLOFEN 10 MG TABLET GT SCH ×4 (00:11→17:16)
[2020-02-16] MEDS: TEMAZEPAM 7.5 MG CAPSULE GT PRN (02:16)
[2020-02-16] MEDS: ALBUTEROL SULFATE 2.5 MG/3 ML NEBU NEB SCH ×6 (03:08→22:57)
[2020-02-16] MEDS: IPRATROPIUM BROMIDE 0.5 MG/2.5 ML NEBU NEB SCH ×6 (03:08→22:57)
[2020-02-16] MEDS: OMEPRAZOLE 20 MG CAPSULE.DR GT SCH (05:01)
[2020-02-16] MEDS: ARGININE/GLUTAMINE/CALCIUM BMB 1 EACH POWD.PACK GT SCH ×2 (05:01→17:16)
[2020-02-16] MEDS: PROTEIN SUPPLEMENT (PROSTAT) 30 ML LIQUID GT SCH ×3 (05:02→21:17)
[2020-02-16] MEDS: HYDROGEN PEROXIDE 3% 118 ML BOTTLE TP SCH ×2 (07:38→20:07)
[2020-02-16 07:40] VITALS: BP 95/59
[2020-02-16] MEDS: ACETAMINOPHEN 650 MG/20.3 ML LIQUID UDC GT SCH (09:16)
[2020-02-16] MEDS: SERTRALINE 25 MG GT SCH (09:17)
[2020-02-16] MEDS: ACIDOPHILUS/BULGARICUS CHEW TAB GT SCH ×2 (09:17→20:06)
[2020-02-16] MEDS: SODIUM HYPOCHLORITE 0.125% (QUARTER STRENGTH) 473 ML BOTTLE TP SCH ×2 (09:18→20:07)
[2020-02-16] MEDS: THERAHONEY GEL 1.5 OZ TUBE TOP SCH ×2 (09:18→20:07)
[2020-02-16] MEDS: COD LIVER OIL/ZINC OXIDE OINT 113 GM TUBE TP SCH ×2 (09:18→20:07)
[2020-02-16] MEDS: NEOMY/BACITRA/POLYMYXIN B OINT UD PACKET TP SCH ×2 (09:18→20:07)
[2020-02-16 20:06] VITALS: BP 104/54
[2020-02-16] MEDS: ASCORBIC ACID 500 MG TABLET GT SCH (20:07)
[2020-02-16] MEDS: SIMVASTATIN 10 MG TABLET GT SCH (20:07)
[2020-02-16] MEDS: MULTIVIT, IRON, MIN NO. 8, FA TABLET GT SCH (20:07)
[2020-02-16] MEDS: ESTROGENS,CONJU VAGINAL CREAM 42.5 GM TUBE VG SCH (20:08)
[2020-02-17] MEDS: BACLOFEN 10 MG TABLET GT SCH ×4 (00:06→17:34)
[2020-02-17] MEDS: IPRATROPIUM BROMIDE 0.5 MG/2.5 ML NEBU NEB SCH ×6 (03:08→23:05)
[2020-02-17] MEDS: ALBUTEROL SULFATE 2.5 MG/3 ML NEBU NEB SCH ×6 (03:08→23:05)
[2020-02-17] MEDS: OMEPRAZOLE 20 MG CAPSULE.DR GT SCH (05:09)
[2020-02-17] MEDS: ARGININE/GLUTAMINE/CALCIUM BMB 1 EACH POWD.PACK GT SCH ×2 (05:09→17:34)
[2020-02-17] MEDS: PROTEIN SUPPLEMENT (PROSTAT) 30 ML LIQUID GT SCH ×3 (05:09→21:38)
[2020-02-17 07:51] VITALS: BP 117/51
[2020-02-17] MEDS: HYDROGEN PEROXIDE 3% 118 ML BOTTLE TP SCH ×2 (07:54→21:18)
[2020-02-17] MEDS: ACETAMINOPHEN 650 MG/20.3 ML LIQUID UDC GT SCH (08:35)
[2020-02-17] MEDS: NEOMY/BACITRA/POLYMYXIN B OINT UD PACKET TP SCH ×2 (08:35→21:38)
[2020-02-17] MEDS: SODIUM HYPOCHLORITE 0.125% (QUARTER STRENGTH) 473 ML BOTTLE TP SCH ×2 (08:35→21:38)
[2020-02-17] MEDS: SERTRALINE 25 MG GT SCH (08:35)
[2020-02-17] MEDS: ACIDOPHILUS/BULGARICUS CHEW TAB GT SCH ×2 (08:35→21:36)
[2020-02-17] MEDS: THERAHONEY GEL 1.5 OZ TUBE TOP SCH ×2 (08:35→21:37)
[2020-02-17] MEDS: COD LIVER OIL/ZINC OXIDE OINT 113 GM TUBE TP SCH ×2 (08:35→21:38)
[2020-02-17 20:03] VITALS: BP 102/48
[2020-02-17] MEDS: ASCORBIC ACID 500 MG TABLET GT SCH (21:36)
[2020-02-17] MEDS: MULTIVIT, IRON, MIN NO. 8, FA TABLET GT SCH (21:36)
[2020-02-17] MEDS: SIMVASTATIN 10 MG TABLET GT SCH (21:37)
[2020-02-17] MEDS: ESTROGENS,CONJU VAGINAL CREAM 42.5 GM TUBE VG SCH (21:38)
[2020-02-18] MEDS: BACLOFEN 10 MG TABLET GT SCH ×5 (00:52→23:57)
[2020-02-18] MEDS: ALBUTEROL SULFATE 2.5 MG/3 ML NEBU NEB SCH ×6 (03:10→23:00)
[2020-02-18] MEDS: IPRATROPIUM BROMIDE 0.5 MG/2.5 ML NEBU NEB SCH ×6 (03:10→23:00)
[2020-02-18] MEDS: ARGININE/GLUTAMINE/CALCIUM BMB 1 EACH POWD.PACK GT SCH ×2 (05:47→17:07)
[2020-02-18] MEDS: PROTEIN SUPPLEMENT (PROSTAT) 30 ML LIQUID GT SCH ×3 (05:47→21:39)
[2020-02-18] MEDS: OMEPRAZOLE 20 MG CAPSULE.DR GT SCH (05:47)
[2020-02-18 07:26] VITALS: BP 91/58
[2020-02-18] MEDS: COD LIVER OIL/ZINC OXIDE OINT 113 GM TUBE TP SCH ×2 (08:29→21:39)
[2020-02-18] MEDS: ACIDOPHILUS/BULGARICUS CHEW TAB GT SCH ×2 (08:29→21:36)
[2020-02-18] MEDS: THERAHONEY GEL 1.5 OZ TUBE TOP SCH ×2 (08:29→21:38)
[2020-02-18] MEDS: SODIUM HYPOCHLORITE 0.125% (QUARTER STRENGTH) 473 ML BOTTLE TP SCH ×2 (08:29→21:38)
[2020-02-18] MEDS: SERTRALINE 25 MG GT SCH (08:29)
[2020-02-18] MEDS: ACETAMINOPHEN 650 MG/20.3 ML LIQUID UDC GT SCH (08:29)
[2020-02-18] MEDS: NEOMY/BACITRA/POLYMYXIN B OINT UD PACKET TP SCH ×2 (08:30→21:39)
[2020-02-18] MEDS: HYDROGEN PEROXIDE 3% 118 ML BOTTLE TP SCH ×2 (08:39→21:54)
--- NOTE | 2020-02-18 11:26 | NUR ---
SW met with patient today to inform the patient that patient is due for her annual optometry appointment. SW asked patient if she wanted to have her annual eye exam, and patient expressed agreement by nodding her head up and down and mouthing "yes". SW to schedule patient's eye exam.
--- NOTE | 2020-02-18 16:39 | NUR ---
DOROTHY spoke with Jeanine at Dr. Brandt's office, , and scheduled patient's annual optometry appointment for 03/05/2020. DOROTHY notified the patient, and patient is in agreement.
[2020-02-18 20:35] VITALS: BP 105/50
[2020-02-18] MEDS: MULTIVIT, IRON, MIN NO. 8, FA TABLET GT SCH (21:36)
[2020-02-18] MEDS: SIMVASTATIN 10 MG TABLET GT SCH (21:37)
[2020-02-18] MEDS: ASCORBIC ACID 500 MG TABLET GT SCH (21:37)
[2020-02-18] MEDS: ESTROGENS,CONJU VAGINAL CREAM 42.5 GM TUBE VG SCH (21:39)
--- NOTE | 2020-02-18 21:50 | NUR ---
covid 19- negative, daughter, jill called 2 different phone number but didn't answer.
[2020-02-19] MEDS: IPRATROPIUM BROMIDE 0.5 MG/2.5 ML NEBU NEB SCH ×6 (03:01→23:09)
[2020-02-19] MEDS: ALBUTEROL SULFATE 2.5 MG/3 ML NEBU NEB SCH ×6 (03:01→23:09)
[2020-02-19] MEDS: BACLOFEN 10 MG TABLET GT SCH ×3 (05:15→17:00)
[2020-02-19] MEDS: OMEPRAZOLE 20 MG CAPSULE.DR GT SCH (05:15)
[2020-02-19] MEDS: ARGININE/GLUTAMINE/CALCIUM BMB 1 EACH POWD.PACK GT SCH ×2 (05:15→17:00)
[2020-02-19] MEDS: PROTEIN SUPPLEMENT (PROSTAT) 30 ML LIQUID GT SCH ×3 (05:15→22:03)
[2020-02-19 07:49] VITALS: BP 112/59
[2020-02-19] MEDS: ACIDOPHILUS/BULGARICUS CHEW TAB GT SCH ×2 (08:21→20:11)
[2020-02-19] MEDS: ACETAMINOPHEN 650 MG/20.3 ML LIQUID UDC GT SCH (08:21)
[2020-02-19] MEDS: COD LIVER OIL/ZINC OXIDE OINT 113 GM TUBE TP SCH ×2 (08:22→20:11)
[2020-02-19] MEDS: SODIUM HYPOCHLORITE 0.125% (QUARTER STRENGTH) 473 ML BOTTLE TP SCH ×2 (08:22→20:11)
[2020-02-19] MEDS: THERAHONEY GEL 1.5 OZ TUBE TOP SCH ×2 (08:22→20:11)
[2020-02-19] MEDS: SERTRALINE 25 MG GT SCH (08:22)
[2020-02-19] MEDS: NEOMY/BACITRA/POLYMYXIN B OINT UD PACKET TP SCH ×2 (08:23→20:12)
[2020-02-19] MEDS: HYDROGEN PEROXIDE 3% 118 ML BOTTLE TP SCH ×2 (09:15→21:06)
--- NOTE | 2020-02-19 16:38 | NUR ---
DOROTHY informed patient's daughter Ludmila via email that the next IDT meeting for the patient has been scheduled for 02/25/2020 at 11am. DOROTHY asked Ludmila to let this SW know if Ludmila would like to participate in the meeting through speaker phone.
[2020-02-19] MEDS: JEVITY 1.2 1000 ML LIQUID GT PRN (17:01)
[2020-02-19 20:00] VITALS: BP 94/40
[2020-02-19] MEDS: ASCORBIC ACID 500 MG TABLET GT SCH (20:11)
[2020-02-19] MEDS: SIMVASTATIN 10 MG TABLET GT SCH (20:11)
[2020-02-19] MEDS: MULTIVIT, IRON, MIN NO. 8, FA TABLET GT SCH (20:11)
[2020-02-19] MEDS: ESTROGENS,CONJU VAGINAL CREAM 42.5 GM TUBE VG SCH (20:12)
[2020-02-20] MEDS: BACLOFEN 10 MG TABLET GT SCH ×4 (00:10→18:53)
[2020-02-20] MEDS: ALBUTEROL SULFATE 2.5 MG/3 ML NEBU NEB SCH ×6 (03:04→23:01)
[2020-02-20] MEDS: IPRATROPIUM BROMIDE 0.5 MG/2.5 ML NEBU NEB SCH ×6 (03:04→23:01)
[2020-02-20] MEDS: OMEPRAZOLE 20 MG CAPSULE.DR GT SCH (05:37)
[2020-02-20] MEDS: PROTEIN SUPPLEMENT (PROSTAT) 30 ML LIQUID GT SCH ×3 (05:37→21:49)
[2020-02-20] MEDS: ARGININE/GLUTAMINE/CALCIUM BMB 1 EACH POWD.PACK GT SCH ×2 (05:37→18:53)
[2020-02-20 07:40] VITALS: BP 110/59
[2020-02-20] MEDS: ACETAMINOPHEN 650 MG/20.3 ML LIQUID UDC GT SCH (08:30)
[2020-02-20] MEDS: SERTRALINE 25 MG GT SCH (09:34)
[2020-02-20] MEDS: SODIUM HYPOCHLORITE 0.125% (QUARTER STRENGTH) 473 ML BOTTLE TP SCH ×2 (09:34→21:49)
[2020-02-20] MEDS: ACIDOPHILUS/BULGARICUS CHEW TAB GT SCH ×2 (09:34→21:49)
[2020-02-20] MEDS: THERAHONEY GEL 1.5 OZ TUBE TOP SCH ×2 (09:34→21:49)
[2020-02-20] MEDS: COD LIVER OIL/ZINC OXIDE OINT 113 GM TUBE TP SCH ×2 (09:35→21:49)
[2020-02-20] MEDS: NEOMY/BACITRA/POLYMYXIN B OINT UD PACKET TP SCH (09:35)
[2020-02-20] MEDS: HYDROGEN PEROXIDE 3% 118 ML BOTTLE TP SCH ×2 (09:50→21:49)
--- NOTE | 2020-02-20 10:45 | NUR ---
SEEN BY RAKEL CASTAÑEDA N.P AND WITH RAINEO.
[2020-02-20 20:00] VITALS: BP 96/43
[2020-02-20] MEDS: SIMVASTATIN 10 MG TABLET GT SCH (21:49)
[2020-02-20] MEDS: ASCORBIC ACID 500 MG TABLET GT SCH (21:49)
[2020-02-20] MEDS: MULTIVIT, IRON, MIN NO. 8, FA TABLET GT SCH (21:49)
[2020-02-20] MEDS: ESTROGENS,CONJU VAGINAL CREAM 42.5 GM TUBE VG SCH (21:49)
[2020-02-20] MEDS: TEMAZEPAM 7.5 MG CAPSULE GT PRN (22:00)
[2020-02-20] MEDS: JEVITY 1.2 1000 ML LIQUID GT PRN (22:48)
[2020-02-21] MEDS: IPRATROPIUM BROMIDE 0.5 MG/2.5 ML NEBU NEB SCH ×6 (03:01→23:00)
[2020-02-21] MEDS: ALBUTEROL SULFATE 2.5 MG/3 ML NEBU NEB SCH ×6 (03:01→23:00)
[2020-02-21] MEDS: ARGININE/GLUTAMINE/CALCIUM BMB 1 EACH POWD.PACK GT SCH ×2 (05:03→17:37)
[2020-02-21] MEDS: PROTEIN SUPPLEMENT (PROSTAT) 30 ML LIQUID GT SCH ×3 (05:03→22:05)
[2020-02-21] MEDS: BACLOFEN 10 MG TABLET GT SCH ×5 (05:03→23:05)
[2020-02-21] MEDS: OMEPRAZOLE 20 MG CAPSULE.DR GT SCH (05:03)
[2020-02-21 07:49] VITALS: BP 91/40
[2020-02-21] MEDS: ACIDOPHILUS/BULGARICUS CHEW TAB GT SCH ×2 (08:32→21:00)
[2020-02-21] MEDS: ACETAMINOPHEN 650 MG/20.3 ML LIQUID UDC GT SCH (08:32)
[2020-02-21] MEDS: SERTRALINE 25 MG GT SCH (08:32)
[2020-02-21] MEDS: THERAHONEY GEL 1.5 OZ TUBE TOP SCH ×2 (08:33→21:00)
[2020-02-21] MEDS: SODIUM HYPOCHLORITE 0.125% (QUARTER STRENGTH) 473 ML BOTTLE TP SCH ×2 (08:33→21:00)
[2020-02-21] MEDS: COD LIVER OIL/ZINC OXIDE OINT 113 GM TUBE TP SCH ×2 (08:33→21:00)
[2020-02-21] MEDS: HYDROGEN PEROXIDE 3% 118 ML BOTTLE TP SCH ×2 (09:15→21:10)
[2020-02-21 20:03] VITALS: BP 101/56
[2020-02-21] MEDS: ESTROGENS,CONJU VAGINAL CREAM 42.5 GM TUBE VG SCH (21:00)
[2020-02-21] MEDS: ASCORBIC ACID 500 MG TABLET GT SCH (21:00)
[2020-02-21] MEDS: SIMVASTATIN 10 MG TABLET GT SCH (21:00)
[2020-02-21] MEDS: MULTIVIT, IRON, MIN NO. 8, FA TABLET GT SCH (21:00)
[2020-02-21] MEDS: TEMAZEPAM 7.5 MG CAPSULE GT PRN (22:05)
[2020-02-21] MEDS: JEVITY 1.2 1000 ML LIQUID GT PRN (22:06)
[2020-02-22] MEDS: ALBUTEROL SULFATE 2.5 MG/3 ML NEBU NEB SCH ×6 (03:15→22:54)
[2020-02-22] MEDS: IPRATROPIUM BROMIDE 0.5 MG/2.5 ML NEBU NEB SCH ×6 (03:15→22:54)
[2020-02-22] MEDS: OMEPRAZOLE 20 MG CAPSULE.DR GT SCH (05:23)
[2020-02-22] MEDS: BACLOFEN 10 MG TABLET GT SCH ×4 (05:23→23:30)
[2020-02-22] MEDS: PROTEIN SUPPLEMENT (PROSTAT) 30 ML LIQUID GT SCH ×3 (05:23→21:50)
[2020-02-22] MEDS: ARGININE/GLUTAMINE/CALCIUM BMB 1 EACH POWD.PACK GT SCH ×2 (05:23→17:46)
[2020-02-22 07:59] VITALS: BP 100/45
[2020-02-22] MEDS: HYDROGEN PEROXIDE 3% 118 ML BOTTLE TP SCH ×2 (08:00→20:47)
[2020-02-22] MEDS: ACETAMINOPHEN 650 MG/20.3 ML LIQUID UDC GT SCH (08:30)
[2020-02-22] MEDS: THERAHONEY GEL 1.5 OZ TUBE TOP SCH ×2 (09:00→21:49)
[2020-02-22] MEDS: COD LIVER OIL/ZINC OXIDE OINT 113 GM TUBE TP SCH ×2 (09:00→21:50)
[2020-02-22] MEDS: SODIUM HYPOCHLORITE 0.125% (QUARTER STRENGTH) 473 ML BOTTLE TP SCH ×2 (09:00→21:49)
[2020-02-22] MEDS: SERTRALINE 25 MG GT SCH (09:33)
[2020-02-22] MEDS: ACIDOPHILUS/BULGARICUS CHEW TAB GT SCH ×2 (09:33→21:49)
[2020-02-22 20:15] VITALS: BP 98/65
[2020-02-22] MEDS: SIMVASTATIN 10 MG TABLET GT SCH (21:49)
[2020-02-22] MEDS: ASCORBIC ACID 500 MG TABLET GT SCH (21:49)
[2020-02-22] MEDS: MULTIVIT, IRON, MIN NO. 8, FA TABLET GT SCH (21:49)
[2020-02-22] MEDS: TEMAZEPAM 7.5 MG CAPSULE GT PRN (21:50)
[2020-02-22] MEDS: ESTROGENS,CONJU VAGINAL CREAM 42.5 GM TUBE VG SCH (21:50)
[2020-02-22] MEDS: JEVITY 1.2 1000 ML LIQUID GT PRN (23:31)
[2020-02-23] MEDS: ALBUTEROL SULFATE 2.5 MG/3 ML NEBU NEB SCH ×6 (03:04→23:01)
[2020-02-23] MEDS: IPRATROPIUM BROMIDE 0.5 MG/2.5 ML NEBU NEB SCH ×6 (03:04→23:01)
[2020-02-23] MEDS: BACLOFEN 10 MG TABLET GT SCH ×3 (05:18→17:49)
[2020-02-23] MEDS: ARGININE/GLUTAMINE/CALCIUM BMB 1 EACH POWD.PACK GT SCH ×2 (05:18→17:49)
[2020-02-23] MEDS: PROTEIN SUPPLEMENT (PROSTAT) 30 ML LIQUID GT SCH ×3 (05:18→22:12)
[2020-02-23] MEDS: OMEPRAZOLE 20 MG CAPSULE.DR GT SCH (05:18)
[2020-02-23 07:46] VITALS: BP 102/48
[2020-02-23] MEDS: ACETAMINOPHEN 650 MG/20.3 ML LIQUID UDC GT SCH (08:30)
[2020-02-23] MEDS: SERTRALINE 25 MG GT SCH (09:52)
[2020-02-23] MEDS: ACIDOPHILUS/BULGARICUS CHEW TAB GT SCH ×2 (09:52→21:00)
[2020-02-23] MEDS: THERAHONEY GEL 1.5 OZ TUBE TOP SCH ×2 (09:53→21:00)
[2020-02-23] MEDS: COD LIVER OIL/ZINC OXIDE OINT 113 GM TUBE TP SCH ×2 (09:54→21:00)
[2020-02-23] MEDS: SODIUM HYPOCHLORITE 0.125% (QUARTER STRENGTH) 473 ML BOTTLE TP SCH ×2 (09:54→21:00)
[2020-02-23] MEDS: HYDROGEN PEROXIDE 3% 118 ML BOTTLE TP SCH ×2 (09:54→20:36)
[2020-02-23 20:04] VITALS: BP 105/45
[2020-02-23] MEDS: MULTIVIT, IRON, MIN NO. 8, FA TABLET GT SCH (21:00)
[2020-02-23] MEDS: SIMVASTATIN 10 MG TABLET GT SCH (21:00)
[2020-02-23] MEDS: ASCORBIC ACID 500 MG TABLET GT SCH (21:00)
[2020-02-23] MEDS: ESTROGENS,CONJU VAGINAL CREAM 42.5 GM TUBE VG SCH (21:00)
[2020-02-24] MEDS: ALBUTEROL SULFATE 2.5 MG/3 ML NEBU NEB SCH ×6 (03:00→22:52)
[2020-02-24] MEDS: IPRATROPIUM BROMIDE 0.5 MG/2.5 ML NEBU NEB SCH ×6 (03:00→22:52)
[2020-02-24] MEDS: BACLOFEN 10 MG TABLET GT SCH ×4 (05:41→17:06)
[2020-02-24] MEDS: PROTEIN SUPPLEMENT (PROSTAT) 30 ML LIQUID GT SCH ×3 (05:41→22:16)
[2020-02-24] MEDS: ARGININE/GLUTAMINE/CALCIUM BMB 1 EACH POWD.PACK GT SCH ×2 (05:41→17:06)
[2020-02-24] MEDS: OMEPRAZOLE 20 MG CAPSULE.DR GT SCH (05:41)
[2020-02-24] MEDS: JEVITY 1.2 1000 ML LIQUID GT PRN (07:17)
[2020-02-24] MEDS: HYDROGEN PEROXIDE 3% 118 ML BOTTLE TP SCH ×2 (07:23→21:12)
[2020-02-24 07:27] VITALS: BP 105/40
[2020-02-24] MEDS: THERAHONEY GEL 1.5 OZ TUBE TOP SCH ×2 (09:11→21:00)
[2020-02-24] MEDS: ACIDOPHILUS/BULGARICUS CHEW TAB GT SCH ×2 (09:11→21:00)
[2020-02-24] MEDS: SODIUM HYPOCHLORITE 0.125% (QUARTER STRENGTH) 473 ML BOTTLE TP SCH ×2 (09:11→21:00)
[2020-02-24] MEDS: SERTRALINE 25 MG GT SCH (09:11)
[2020-02-24] MEDS: COD LIVER OIL/ZINC OXIDE OINT 113 GM TUBE TP SCH ×2 (09:11→21:00)
[2020-02-24] MEDS: ACETAMINOPHEN 650 MG/20.3 ML LIQUID UDC GT SCH (09:11)
[2020-02-24 20:02] VITALS: BP 106/32
[2020-02-24] MEDS: SIMVASTATIN 10 MG TABLET GT SCH (21:00)
[2020-02-24] MEDS: MULTIVIT, IRON, MIN NO. 8, FA TABLET GT SCH (21:00)
[2020-02-24] MEDS: ESTROGENS,CONJU VAGINAL CREAM 42.5 GM TUBE VG SCH (21:00)
[2020-02-24] MEDS: ASCORBIC ACID 500 MG TABLET GT SCH (21:00)
[2020-02-25] MEDS: TEMAZEPAM 7.5 MG CAPSULE GT PRN ×2 (01:49→21:35)
[2020-02-25] MEDS: ALBUTEROL SULFATE 2.5 MG/3 ML NEBU NEB SCH ×6 (02:53→22:53)
[2020-02-25] MEDS: IPRATROPIUM BROMIDE 0.5 MG/2.5 ML NEBU NEB SCH ×6 (02:53→22:53)
[2020-02-25] MEDS: PROTEIN SUPPLEMENT (PROSTAT) 30 ML LIQUID GT SCH ×3 (05:38→21:34)
[2020-02-25] MEDS: OMEPRAZOLE 20 MG CAPSULE.DR GT SCH (05:38)
[2020-02-25] MEDS: ARGININE/GLUTAMINE/CALCIUM BMB 1 EACH POWD.PACK GT SCH ×2 (05:38→18:00)
[2020-02-25] MEDS: BACLOFEN 10 MG TABLET GT SCH ×4 (05:38→18:00)
[2020-02-25] MEDS: JEVITY 1.2 1000 ML LIQUID GT PRN (06:29)
[2020-02-25 07:26] VITALS: BP 108/59
[2020-02-25] MEDS: ACETAMINOPHEN 650 MG/20.3 ML LIQUID UDC GT SCH (08:30)
[2020-02-25] MEDS: HYDROGEN PEROXIDE 3% 118 ML BOTTLE TP SCH ×2 (09:00→20:42)
[2020-02-25] MEDS: ACIDOPHILUS/BULGARICUS CHEW TAB GT SCH ×2 (09:44→21:32)
[2020-02-25] MEDS: COD LIVER OIL/ZINC OXIDE OINT 113 GM TUBE TP SCH ×2 (09:44→21:33)
[2020-02-25] MEDS: SERTRALINE 25 MG GT SCH (09:44)
[2020-02-25] MEDS: SODIUM HYPOCHLORITE 0.125% (QUARTER STRENGTH) 473 ML BOTTLE TP SCH ×2 (09:44→21:33)
[2020-02-25] MEDS: THERAHONEY GEL 1.5 OZ TUBE TOP SCH ×2 (09:44→21:33)
--- NOTE | 2020-02-25 16:18 | NUR ---
INTERDISCIPLINARY PLAN OF CARE CONFERENCE was held today. Patient's daughter Ludmila was not available to participate in the meeting. Dr. Sylvester and the Interdisciplinary Team reviewed the current plan of care in detail. RN reported on patient's medical condition, ongoing skin treatment, and recent placement of new g-tube. See RN IDT conference notes. No major changes in medical condition were reported by nursing or by other disciplines. See all other disciplines IDT notes and physician's progress notes for additional details.
[2020-02-25 20:27] VITALS: BP 104/47
[2020-02-25] MEDS: ASCORBIC ACID 500 MG TABLET GT SCH (21:32)
[2020-02-25] MEDS: MULTIVIT, IRON, MIN NO. 8, FA TABLET GT SCH (21:32)
[2020-02-25] MEDS: SIMVASTATIN 10 MG TABLET GT SCH (21:32)
[2020-02-25] MEDS: ESTROGENS,CONJU VAGINAL CREAM 42.5 GM TUBE VG SCH (21:34)
[2020-02-26] MEDS: BACLOFEN 10 MG TABLET GT SCH ×5 (00:56→23:29)
[2020-02-26] MEDS: ALBUTEROL SULFATE 2.5 MG/3 ML NEBU NEB SCH ×6 (03:07→23:00)
[2020-02-26] MEDS: IPRATROPIUM BROMIDE 0.5 MG/2.5 ML NEBU NEB SCH ×6 (03:07→23:00)
[2020-02-26] MEDS: PROTEIN SUPPLEMENT (PROSTAT) 30 ML LIQUID GT SCH ×3 (05:13→21:43)
[2020-02-26] MEDS: ARGININE/GLUTAMINE/CALCIUM BMB 1 EACH POWD.PACK GT SCH ×2 (05:13→17:58)
[2020-02-26] MEDS: OMEPRAZOLE 20 MG CAPSULE.DR GT SCH (05:13)
[2020-02-26] MEDS: JEVITY 1.2 1000 ML LIQUID GT PRN (05:26)
[2020-02-26 07:33] VITALS: BP 117/53
[2020-02-26] MEDS: HYDROGEN PEROXIDE 3% 118 ML BOTTLE TP SCH ×2 (08:33→20:31)
[2020-02-26] MEDS: ACETAMINOPHEN 650 MG/20.3 ML LIQUID UDC GT SCH (08:51)
[2020-02-26] MEDS: SERTRALINE 25 MG GT SCH (09:31)
[2020-02-26] MEDS: COD LIVER OIL/ZINC OXIDE OINT 113 GM TUBE TP SCH ×2 (09:31→21:40)
[2020-02-26] MEDS: SODIUM HYPOCHLORITE 0.125% (QUARTER STRENGTH) 473 ML BOTTLE TP SCH ×2 (09:31→21:40)
[2020-02-26] MEDS: THERAHONEY GEL 1.5 OZ TUBE TOP SCH ×2 (09:31→21:40)
[2020-02-26] MEDS: ACIDOPHILUS/BULGARICUS CHEW TAB GT SCH ×2 (09:31→21:41)
[2020-02-26 20:36] VITALS: BP 109/51
[2020-02-26] MEDS: ESTROGENS,CONJU VAGINAL CREAM 42.5 GM TUBE VG SCH (21:40)
[2020-02-26] MEDS: ASCORBIC ACID 500 MG TABLET GT SCH (21:40)
[2020-02-26] MEDS: SIMVASTATIN 10 MG TABLET GT SCH (21:40)
[2020-02-26] MEDS: MULTIVIT, IRON, MIN NO. 8, FA TABLET GT SCH (21:41)
[2020-02-27] MEDS: IPRATROPIUM BROMIDE 0.5 MG/2.5 ML NEBU NEB SCH ×6 (03:06→23:10)
[2020-02-27] MEDS: ALBUTEROL SULFATE 2.5 MG/3 ML NEBU NEB SCH ×6 (03:06→23:10)
[2020-02-27] MEDS: PROTEIN SUPPLEMENT (PROSTAT) 30 ML LIQUID GT SCH ×3 (05:26→21:59)
[2020-02-27] MEDS: BACLOFEN 10 MG TABLET GT SCH ×3 (05:26→17:22)
[2020-02-27] MEDS: ARGININE/GLUTAMINE/CALCIUM BMB 1 EACH POWD.PACK GT SCH ×2 (05:26→17:22)
[2020-02-27] MEDS: OMEPRAZOLE 20 MG CAPSULE.DR GT SCH (05:26)
[2020-02-27] MEDS: JEVITY 1.2 1000 ML LIQUID GT PRN (05:53)
[2020-02-27 07:28] VITALS: BP 107/45
[2020-02-27] MEDS: ACIDOPHILUS/BULGARICUS CHEW TAB GT SCH ×2 (08:34→21:58)
[2020-02-27] MEDS: ACETAMINOPHEN 650 MG/20.3 ML LIQUID UDC GT SCH (08:34)
[2020-02-27] MEDS: SERTRALINE 25 MG GT SCH (09:00)
[2020-02-27] MEDS: COD LIVER OIL/ZINC OXIDE OINT 113 GM TUBE TP SCH ×2 (09:00→21:59)
[2020-02-27] MEDS: THERAHONEY GEL 1.5 OZ TUBE TOP SCH ×2 (09:00→21:59)
[2020-02-27] MEDS: SODIUM HYPOCHLORITE 0.125% (QUARTER STRENGTH) 473 ML BOTTLE TP SCH ×2 (09:00→21:59)
[2020-02-27] MEDS: HYDROGEN PEROXIDE 3% 118 ML BOTTLE TP SCH ×2 (09:27→21:01)
[2020-02-27 20:00] VITALS: BP 101/47
[2020-02-27] MEDS: ASCORBIC ACID 500 MG TABLET GT SCH (21:58)
[2020-02-27] MEDS: MULTIVIT, IRON, MIN NO. 8, FA TABLET GT SCH (21:58)
[2020-02-27] MEDS: SIMVASTATIN 10 MG TABLET GT SCH (21:59)
[2020-02-27] MEDS: ESTROGENS,CONJU VAGINAL CREAM 42.5 GM TUBE VG SCH (21:59)
[2020-02-27] MEDS: TEMAZEPAM 7.5 MG CAPSULE GT PRN (22:00)
[2020-02-28] MEDS: IPRATROPIUM BROMIDE 0.5 MG/2.5 ML NEBU NEB SCH ×6 (03:03→23:08)
[2020-02-28] MEDS: ALBUTEROL SULFATE 2.5 MG/3 ML NEBU NEB SCH ×6 (03:03→23:08)
[2020-02-28] MEDS: JEVITY 1.2 1000 ML LIQUID GT PRN (05:14)
[2020-02-28] MEDS: PROTEIN SUPPLEMENT (PROSTAT) 30 ML LIQUID GT SCH ×3 (05:14→21:31)
[2020-02-28] MEDS: OMEPRAZOLE 20 MG CAPSULE.DR GT SCH (05:14)
[2020-02-28] MEDS: BACLOFEN 10 MG TABLET GT SCH ×5 (05:14→23:09)
[2020-02-28] MEDS: ARGININE/GLUTAMINE/CALCIUM BMB 1 EACH POWD.PACK GT SCH ×2 (05:14→17:33)
[2020-02-28 07:42] VITALS: BP 115/51
[2020-02-28] MEDS: ACETAMINOPHEN 650 MG/20.3 ML LIQUID UDC GT SCH (08:43)
[2020-02-28] MEDS: ACIDOPHILUS/BULGARICUS CHEW TAB GT SCH ×2 (08:43→21:31)
[2020-02-28] MEDS: SERTRALINE 25 MG GT SCH (08:43)
[2020-02-28] MEDS: THERAHONEY GEL 1.5 OZ TUBE TOP SCH ×2 (08:44→21:31)
[2020-02-28] MEDS: SODIUM HYPOCHLORITE 0.125% (QUARTER STRENGTH) 473 ML BOTTLE TP SCH ×2 (08:44→21:31)
[2020-02-28] MEDS: COD LIVER OIL/ZINC OXIDE OINT 113 GM TUBE TP SCH ×2 (08:44→21:31)
[2020-02-28] MEDS: HYDROGEN PEROXIDE 3% 118 ML BOTTLE TP SCH ×2 (08:56→21:40)
--- NOTE | 2020-02-28 19:40 | NUR ---
Patient received in stable respiratory condition on cool aerosol 40% FiO2. Ambubag and spare trach at bedside. Airway is patent and secured. Suctioned PRN. No SOB noted. Will continue to monitor.
[2020-02-28 20:09] VITALS: BP 93/42
[2020-02-28] MEDS: SIMVASTATIN 10 MG TABLET GT SCH (21:31)
[2020-02-28] MEDS: TEMAZEPAM 7.5 MG CAPSULE GT PRN (21:31)
[2020-02-28] MEDS: MULTIVIT, IRON, MIN NO. 8, FA TABLET GT SCH (21:31)
[2020-02-28] MEDS: ESTROGENS,CONJU VAGINAL CREAM 42.5 GM TUBE VG SCH (21:31)
[2020-02-28] MEDS: ASCORBIC ACID 500 MG TABLET GT SCH (21:31)
[2020-02-29] MEDS: ALBUTEROL SULFATE 2.5 MG/3 ML NEBU NEB SCH ×6 (03:24→22:45)
[2020-02-29] MEDS: IPRATROPIUM BROMIDE 0.5 MG/2.5 ML NEBU NEB SCH ×6 (03:24→22:45)
[2020-02-29] MEDS: ARGININE/GLUTAMINE/CALCIUM BMB 1 EACH POWD.PACK GT SCH ×2 (05:35→17:29)
[2020-02-29] MEDS: PROTEIN SUPPLEMENT (PROSTAT) 30 ML LIQUID GT SCH ×3 (05:35→21:26)
[2020-02-29] MEDS: OMEPRAZOLE 20 MG CAPSULE.DR GT SCH (05:35)
[2020-02-29] MEDS: BACLOFEN 10 MG TABLET GT SCH ×4 (05:35→23:04)
[2020-02-29] MEDS: JEVITY 1.2 1000 ML LIQUID GT PRN (05:35)
[2020-02-29] MEDS: ACETAMINOPHEN 650 MG/20.3 ML LIQUID UDC GT SCH (08:14)
[2020-02-29] MEDS: SERTRALINE 25 MG GT SCH (08:14)
[2020-02-29] MEDS: COD LIVER OIL/ZINC OXIDE OINT 113 GM TUBE TP SCH ×2 (08:14→21:26)
[2020-02-29] MEDS: ACIDOPHILUS/BULGARICUS CHEW TAB GT SCH ×2 (08:14→21:26)
[2020-02-29] MEDS: THERAHONEY GEL 1.5 OZ TUBE TOP SCH ×2 (08:14→21:26)
[2020-02-29] MEDS: SODIUM HYPOCHLORITE 0.125% (QUARTER STRENGTH) 473 ML BOTTLE TP SCH ×2 (08:14→21:26)
[2020-02-29 09:45] VITALS: BP 104/41
[2020-02-29] MEDS: HYDROGEN PEROXIDE 3% 118 ML BOTTLE TP SCH ×2 (09:50→21:32)
[2020-02-29 20:18] VITALS: BP 110/44
[2020-02-29] MEDS: SIMVASTATIN 10 MG TABLET GT SCH (21:26)
[2020-02-29] MEDS: MULTIVIT, IRON, MIN NO. 8, FA TABLET GT SCH (21:26)
[2020-02-29] MEDS: ASCORBIC ACID 500 MG TABLET GT SCH (21:26)
[2020-02-29] MEDS: ESTROGENS,CONJU VAGINAL CREAM 42.5 GM TUBE VG SCH (21:26)
[2020-02-29] MEDS: TEMAZEPAM 7.5 MG CAPSULE GT PRN (21:26)
[2020-03-01] MEDS: ALBUTEROL SULFATE 2.5 MG/3 ML NEBU NEB SCH ×6 (02:48→22:53)
[2020-03-01] MEDS: IPRATROPIUM BROMIDE 0.5 MG/2.5 ML NEBU NEB SCH ×6 (02:48→22:53)
[2020-03-01] MEDS: JEVITY 1.2 1000 ML LIQUID GT PRN ×2 (04:51→21:34)
[2020-03-01] MEDS: ARGININE/GLUTAMINE/CALCIUM BMB 1 EACH POWD.PACK GT SCH ×2 (05:07→18:35)
[2020-03-01] MEDS: BACLOFEN 10 MG TABLET GT SCH ×4 (05:07→23:07)
[2020-03-01] MEDS: PROTEIN SUPPLEMENT (PROSTAT) 30 ML LIQUID GT SCH ×3 (05:07→21:27)
[2020-03-01] MEDS: OMEPRAZOLE 20 MG CAPSULE.DR GT SCH (05:07)
[2020-03-01 07:43] VITALS: BP 111/68
[2020-03-01] MEDS: HYDROGEN PEROXIDE 3% 118 ML BOTTLE TP SCH ×2 (08:10→21:27)
[2020-03-01] MEDS: ACETAMINOPHEN 650 MG/20.3 ML LIQUID UDC GT SCH (09:30)
[2020-03-01] MEDS: SERTRALINE 25 MG GT SCH (09:55)
[2020-03-01] MEDS: ACIDOPHILUS/BULGARICUS CHEW TAB GT SCH ×2 (09:55→21:27)
[2020-03-01] MEDS: COD LIVER OIL/ZINC OXIDE OINT 113 GM TUBE TP SCH ×2 (09:56→21:27)
[2020-03-01] MEDS: THERAHONEY GEL 1.5 OZ TUBE TOP SCH ×2 (09:56→21:27)
[2020-03-01] MEDS: SODIUM HYPOCHLORITE 0.125% (QUARTER STRENGTH) 473 ML BOTTLE TP SCH ×2 (09:56→21:27)
[2020-03-01 20:12] VITALS: BP 110/50
[2020-03-01] MEDS: SIMVASTATIN 10 MG TABLET GT SCH (21:27)
[2020-03-01] MEDS: ESTROGENS,CONJU VAGINAL CREAM 42.5 GM TUBE VG SCH (21:27)
[2020-03-01] MEDS: MULTIVIT, IRON, MIN NO. 8, FA TABLET GT SCH (21:27)
[2020-03-01] MEDS: ASCORBIC ACID 500 MG TABLET GT SCH (21:27)
[2020-03-01] MEDS: TEMAZEPAM 7.5 MG CAPSULE GT PRN (21:34)
[2020-03-02] MEDS: IPRATROPIUM BROMIDE 0.5 MG/2.5 ML NEBU NEB SCH ×6 (03:09→22:55)
[2020-03-02] MEDS: ALBUTEROL SULFATE 2.5 MG/3 ML NEBU NEB SCH ×6 (03:09→22:55)
[2020-03-02] MEDS: PROTEIN SUPPLEMENT (PROSTAT) 30 ML LIQUID GT SCH ×3 (05:27→22:30)
[2020-03-02] MEDS: ARGININE/GLUTAMINE/CALCIUM BMB 1 EACH POWD.PACK GT SCH ×2 (05:27→17:15)
[2020-03-02] MEDS: BACLOFEN 10 MG TABLET GT SCH ×3 (05:27→17:15)
[2020-03-02] MEDS: OMEPRAZOLE 20 MG CAPSULE.DR GT SCH (05:27)
[2020-03-02 07:33] VITALS: BP 96/42
[2020-03-02] MEDS: HYDROGEN PEROXIDE 3% 118 ML BOTTLE TP SCH ×2 (09:00→20:02)
[2020-03-02] MEDS: ACIDOPHILUS/BULGARICUS CHEW TAB GT SCH ×2 (09:16→20:02)
[2020-03-02] MEDS: ACETAMINOPHEN 650 MG/20.3 ML LIQUID UDC GT SCH (09:16)
[2020-03-02] MEDS: SERTRALINE 25 MG GT SCH (09:16)
[2020-03-02] MEDS: THERAHONEY GEL 1.5 OZ TUBE TOP SCH (09:16)
[2020-03-02] MEDS: SODIUM HYPOCHLORITE 0.125% (QUARTER STRENGTH) 473 ML BOTTLE TP SCH (09:17)
[2020-03-02] MEDS: COD LIVER OIL/ZINC OXIDE OINT 113 GM TUBE TP SCH (09:17)
[2020-03-02] MEDS: MULTIVIT, IRON, MIN NO. 8, FA TABLET GT SCH (20:02)
[2020-03-02] MEDS: ESTROGENS,CONJU VAGINAL CREAM 42.5 GM TUBE VG SCH (20:02)
[2020-03-02] MEDS: SIMVASTATIN 10 MG TABLET GT SCH (20:02)
[2020-03-02] MEDS: ASCORBIC ACID 500 MG TABLET GT SCH (20:02)
[2020-03-02 20:09] VITALS: BP 106/55
[2020-03-03] MEDS: TEMAZEPAM 7.5 MG CAPSULE GT PRN (01:41)
[2020-03-03] MEDS: ALBUTEROL SULFATE 2.5 MG/3 ML NEBU NEB SCH ×6 (02:58→23:27)
[2020-03-03] MEDS: IPRATROPIUM BROMIDE 0.5 MG/2.5 ML NEBU NEB SCH ×6 (02:58→23:27)
[2020-03-03] MEDS: ARGININE/GLUTAMINE/CALCIUM BMB 1 EACH POWD.PACK GT SCH ×2 (05:06→17:26)
[2020-03-03] MEDS: BACLOFEN 10 MG TABLET GT SCH ×4 (05:06→17:26)
[2020-03-03] MEDS: OMEPRAZOLE 20 MG CAPSULE.DR GT SCH (05:06)
[2020-03-03] MEDS: PROTEIN SUPPLEMENT (PROSTAT) 30 ML LIQUID GT SCH ×3 (05:06→21:57)
[2020-03-03 07:25] VITALS: BP 99/41
[2020-03-03] MEDS: ACIDOPHILUS/BULGARICUS CHEW TAB GT SCH ×2 (08:44→21:57)
[2020-03-03] MEDS: ACETAMINOPHEN 650 MG/20.3 ML LIQUID UDC GT SCH (08:44)
[2020-03-03] MEDS: SERTRALINE 25 MG GT SCH (08:44)
[2020-03-03] MEDS: HYDROGEN PEROXIDE 3% 118 ML BOTTLE TP SCH ×2 (08:52→19:31)
[2020-03-03 20:54] VITALS: BP 98/49
[2020-03-03] MEDS: MULTIVIT, IRON, MIN NO. 8, FA TABLET GT SCH (21:57)
[2020-03-03] MEDS: SIMVASTATIN 10 MG TABLET GT SCH (21:57)
[2020-03-03] MEDS: ESTROGENS,CONJU VAGINAL CREAM 42.5 GM TUBE VG SCH (21:57)
[2020-03-03] MEDS: ASCORBIC ACID 500 MG TABLET GT SCH (21:57)
[2020-03-04] MEDS: BACLOFEN 10 MG TABLET GT SCH ×4 (00:34→17:26)
[2020-03-04] MEDS: IPRATROPIUM BROMIDE 0.5 MG/2.5 ML NEBU NEB SCH ×6 (03:12→22:45)
[2020-03-04] MEDS: ALBUTEROL SULFATE 2.5 MG/3 ML NEBU NEB SCH ×6 (03:12→22:45)
[2020-03-04] MEDS: JEVITY 1.2 1000 ML LIQUID GT PRN (05:21)
[2020-03-04] MEDS: PROTEIN SUPPLEMENT (PROSTAT) 30 ML LIQUID GT SCH ×3 (05:43→21:55)
[2020-03-04] MEDS: ARGININE/GLUTAMINE/CALCIUM BMB 1 EACH POWD.PACK GT SCH ×2 (05:43→17:26)
[2020-03-04] MEDS: OMEPRAZOLE 20 MG CAPSULE.DR GT SCH (05:43)
[2020-03-04 07:25] VITALS: BP 107/41
[2020-03-04] MEDS: ACETAMINOPHEN 650 MG/20.3 ML LIQUID UDC GT SCH (08:23)
[2020-03-04] MEDS: SERTRALINE 25 MG GT SCH (08:24)
[2020-03-04] MEDS: ACIDOPHILUS/BULGARICUS CHEW TAB GT SCH ×2 (08:24→21:53)
[2020-03-04] MEDS: HYDROGEN PEROXIDE 3% 118 ML BOTTLE TP SCH ×2 (09:00→21:34)
--- NOTE | 2020-03-04 18:00 | NUR ---
Consent obtained from Patient for flu vaccine administration,she say "is ok ".
[2020-03-04 20:02] VITALS: BP 108/50
[2020-03-04] MEDS: ASCORBIC ACID 500 MG TABLET GT SCH (21:53)
[2020-03-04] MEDS: MULTIVIT, IRON, MIN NO. 8, FA TABLET GT SCH (21:53)
[2020-03-04] MEDS: SIMVASTATIN 10 MG TABLET GT SCH (21:53)
[2020-03-04] MEDS: THERAHONEY GEL 1.5 OZ TUBE TOP SCH (21:53)
[2020-03-04] MEDS: SODIUM HYPOCHLORITE 0.125% (QUARTER STRENGTH) 473 ML BOTTLE TP SCH (21:54)
[2020-03-04] MEDS: COD LIVER OIL/ZINC OXIDE OINT 113 GM TUBE TP SCH (21:54)
[2020-03-04] MEDS: ESTROGENS,CONJU VAGINAL CREAM 42.5 GM TUBE VG SCH (21:55)
[2020-03-05] MEDS: JEVITY 1.2 1000 ML LIQUID GT PRN (03:00)
[2020-03-05] MEDS: IPRATROPIUM BROMIDE 0.5 MG/2.5 ML NEBU NEB SCH ×6 (03:10→22:46)
[2020-03-05] MEDS: ALBUTEROL SULFATE 2.5 MG/3 ML NEBU NEB SCH ×6 (03:10→22:46)
[2020-03-05] MEDS: OMEPRAZOLE 20 MG CAPSULE.DR GT SCH (05:57)
[2020-03-05] MEDS: ARGININE/GLUTAMINE/CALCIUM BMB 1 EACH POWD.PACK GT SCH ×2 (05:57→17:35)
[2020-03-05] MEDS: BACLOFEN 10 MG TABLET GT SCH ×4 (05:57→17:35)
[2020-03-05] MEDS: PROTEIN SUPPLEMENT (PROSTAT) 30 ML LIQUID GT SCH ×3 (05:57→22:32)
[2020-03-05 08:02] VITALS: BP 110/47
[2020-03-05] MEDS: SERTRALINE 25 MG GT SCH (08:43)
[2020-03-05] MEDS: ACIDOPHILUS/BULGARICUS CHEW TAB GT SCH ×2 (08:43→21:00)
[2020-03-05] MEDS: HYDROGEN PEROXIDE 3% 118 ML BOTTLE TP SCH ×2 (08:43→21:00)
[2020-03-05] MEDS: ACETAMINOPHEN 650 MG/20.3 ML LIQUID UDC GT SCH (08:43)
[2020-03-05] MEDS: THERAHONEY GEL 1.5 OZ TUBE TOP SCH ×2 (08:43→21:00)
[2020-03-05] MEDS: COD LIVER OIL/ZINC OXIDE OINT 113 GM TUBE TP SCH ×2 (08:43→21:00)
[2020-03-05] MEDS: SODIUM HYPOCHLORITE 0.125% (QUARTER STRENGTH) 473 ML BOTTLE TP SCH ×2 (08:43→21:00)
--- NOTE | 2020-03-05 19:00 | NUR ---
SEEN AND EXAMINED BY RAKEL CASTAÑEDA AND WITH RAINEO.
--- NOTE | 2020-03-05 19:21 | NUR ---
NEW ORDER OBTAINED FROM AMY PEREZ P.ATamra FOR FLU VACCINE.
[2020-03-05 20:00] VITALS: BP 105/59
[2020-03-05] MEDS: SIMVASTATIN 10 MG TABLET GT SCH (21:00)
[2020-03-05] MEDS: ESTROGENS,CONJU VAGINAL CREAM 42.5 GM TUBE VG SCH (21:00)
[2020-03-05] MEDS: ASCORBIC ACID 500 MG TABLET GT SCH (21:00)
[2020-03-05] MEDS: MULTIVIT, IRON, MIN NO. 8, FA TABLET GT SCH (21:00)
[2020-03-06] MEDS: ALBUTEROL SULFATE 2.5 MG/3 ML NEBU NEB SCH ×6 (03:17→23:19)
[2020-03-06] MEDS: IPRATROPIUM BROMIDE 0.5 MG/2.5 ML NEBU NEB SCH ×6 (03:17→23:19)
[2020-03-06] MEDS: BACLOFEN 10 MG TABLET GT SCH ×4 (05:04→18:04)
[2020-03-06] MEDS: OMEPRAZOLE 20 MG CAPSULE.DR GT SCH (05:04)
[2020-03-06] MEDS: ARGININE/GLUTAMINE/CALCIUM BMB 1 EACH POWD.PACK GT SCH ×2 (05:04→18:04)
[2020-03-06] MEDS: PROTEIN SUPPLEMENT (PROSTAT) 30 ML LIQUID GT SCH ×3 (05:04→21:20)
[2020-03-06 08:11] VITALS: BP 108/48
[2020-03-06] MEDS: SERTRALINE 25 MG GT SCH (08:35)
[2020-03-06] MEDS: ACIDOPHILUS/BULGARICUS CHEW TAB GT SCH ×2 (08:35→21:19)
[2020-03-06] MEDS: ACETAMINOPHEN 650 MG/20.3 ML LIQUID UDC GT SCH (08:36)
[2020-03-06] MEDS: SODIUM HYPOCHLORITE 0.125% (QUARTER STRENGTH) 473 ML BOTTLE TP SCH ×2 (09:00→21:20)
[2020-03-06] MEDS: THERAHONEY GEL 1.5 OZ TUBE TOP SCH ×2 (09:00→21:20)
[2020-03-06] MEDS: COD LIVER OIL/ZINC OXIDE OINT 113 GM TUBE TP SCH ×2 (09:00→21:20)
[2020-03-06] MEDS: HYDROGEN PEROXIDE 3% 118 ML BOTTLE TP SCH ×2 (09:16→19:21)
[2020-03-06] MEDS: JEVITY 1.2 1000 ML LIQUID GT PRN (14:12)
--- NOTE | 2020-03-06 15:30 | NUR ---
Patient seen by Dr. Brandt on 03/05/2020 for her routine annual eye exam. Please see optometry notes in patient's chart for details.
--- NOTE | 2020-03-06 18:43 | NUR ---
NO A/R TO FLU VACCINE,AFEBRILE.
[2020-03-06] MEDS: SIMVASTATIN 10 MG TABLET GT SCH (21:19)
[2020-03-06] MEDS: MULTIVIT, IRON, MIN NO. 8, FA TABLET GT SCH (21:19)
[2020-03-06] MEDS: ASCORBIC ACID 500 MG TABLET GT SCH (21:19)
[2020-03-06] MEDS: ESTROGENS,CONJU VAGINAL CREAM 42.5 GM TUBE VG SCH (21:20)
[2020-03-06 22:27] VITALS: BP 115/50
--- NOTE | 2020-03-06 22:56 | NUR ---
Afebrile, no adverse reactions noted from the flu vaccine.
[2020-03-07] MEDS: BACLOFEN 10 MG TABLET GT SCH ×4 (00:07→18:07)
[2020-03-07] MEDS: ALBUTEROL SULFATE 2.5 MG/3 ML NEBU NEB SCH ×6 (03:27→23:21)
[2020-03-07] MEDS: IPRATROPIUM BROMIDE 0.5 MG/2.5 ML NEBU NEB SCH ×6 (03:27→23:21)
[2020-03-07] MEDS: OMEPRAZOLE 20 MG CAPSULE.DR GT SCH (05:34)
[2020-03-07] MEDS: ARGININE/GLUTAMINE/CALCIUM BMB 1 EACH POWD.PACK GT SCH ×2 (05:34→18:07)
[2020-03-07] MEDS: PROTEIN SUPPLEMENT (PROSTAT) 30 ML LIQUID GT SCH ×3 (05:34→22:45)
[2020-03-07 07:41] VITALS: BP 110/48
[2020-03-07] MEDS: ACETAMINOPHEN 650 MG/20.3 ML LIQUID UDC GT SCH (08:37)
[2020-03-07] MEDS: ACIDOPHILUS/BULGARICUS CHEW TAB GT SCH ×2 (08:37→20:11)
[2020-03-07] MEDS: SERTRALINE 25 MG GT SCH (08:37)
[2020-03-07] MEDS: HYDROGEN PEROXIDE 3% 118 ML BOTTLE TP SCH ×2 (08:47→19:36)
[2020-03-07] MEDS: SODIUM HYPOCHLORITE 0.125% (QUARTER STRENGTH) 473 ML BOTTLE TP SCH ×2 (09:00→20:11)
[2020-03-07] MEDS: COD LIVER OIL/ZINC OXIDE OINT 113 GM TUBE TP SCH ×2 (09:00→20:11)
[2020-03-07] MEDS: THERAHONEY GEL 1.5 OZ TUBE TOP SCH ×2 (09:00→20:11)
[2020-03-07] MEDS: JEVITY 1.2 1000 ML LIQUID GT PRN (11:42)
--- NOTE | 2020-03-07 18:00 | NUR ---
NO A/R TO FLU VACCINE,AFEBRILE.
[2020-03-07] MEDS: ASCORBIC ACID 500 MG TABLET GT SCH (20:11)
[2020-03-07] MEDS: ESTROGENS,CONJU VAGINAL CREAM 42.5 GM TUBE VG SCH (20:11)
[2020-03-07] MEDS: SIMVASTATIN 10 MG TABLET GT SCH (20:11)
[2020-03-07] MEDS: MULTIVIT, IRON, MIN NO. 8, FA TABLET GT SCH (20:11)
--- NOTE | 2020-03-07 21:51 | NUR ---
Afebrile, no adverse reactions from flu vaccine, no redness on injection site.
[2020-03-07 22:21] VITALS: BP 110/50
[2020-03-08] MEDS: BACLOFEN 10 MG TABLET GT SCH ×4 (00:28→17:02)
[2020-03-08] MEDS: ALBUTEROL SULFATE 2.5 MG/3 ML NEBU NEB SCH ×6 (03:22→23:37)
[2020-03-08] MEDS: IPRATROPIUM BROMIDE 0.5 MG/2.5 ML NEBU NEB SCH ×6 (03:22→23:37)
[2020-03-08] MEDS: PROTEIN SUPPLEMENT (PROSTAT) 30 ML LIQUID GT SCH ×3 (06:37→21:15)
[2020-03-08] MEDS: ARGININE/GLUTAMINE/CALCIUM BMB 1 EACH POWD.PACK GT SCH ×2 (06:37→17:02)
[2020-03-08] MEDS: OMEPRAZOLE 20 MG CAPSULE.DR GT SCH (06:37)
[2020-03-08 07:44] VITALS: BP 116/56
[2020-03-08] MEDS: SERTRALINE 25 MG GT SCH (08:34)
[2020-03-08] MEDS: ACETAMINOPHEN 650 MG/20.3 ML LIQUID UDC GT SCH (08:34)
[2020-03-08] MEDS: ACIDOPHILUS/BULGARICUS CHEW TAB GT SCH ×2 (08:34→21:14)
[2020-03-08] MEDS: THERAHONEY GEL 1.5 OZ TUBE TOP SCH ×2 (08:35→21:17)
[2020-03-08] MEDS: SODIUM HYPOCHLORITE 0.125% (QUARTER STRENGTH) 473 ML BOTTLE TP SCH ×2 (08:35→21:17)
[2020-03-08] MEDS: COD LIVER OIL/ZINC OXIDE OINT 113 GM TUBE TP SCH ×2 (08:35→21:17)
[2020-03-08] MEDS: HYDROGEN PEROXIDE 3% 118 ML BOTTLE TP SCH ×2 (09:09→21:35)
--- NOTE | 2020-03-08 13:50 | NUR ---
NO A/T TO FLU VACCINE ,AFEBRILE.
[2020-03-08] MEDS: JEVITY 1.2 1000 ML LIQUID GT PRN (16:27)
[2020-03-08] MEDS: SIMVASTATIN 10 MG TABLET GT SCH (21:14)
[2020-03-08] MEDS: MULTIVIT, IRON, MIN NO. 8, FA TABLET GT SCH (21:14)
[2020-03-08] MEDS: ASCORBIC ACID 500 MG TABLET GT SCH (21:14)
[2020-03-08] MEDS: ESTROGENS,CONJU VAGINAL CREAM 42.5 GM TUBE VG SCH (21:15)
[2020-03-08 22:32] VITALS: BP 108/58
[2020-03-09] MEDS: BACLOFEN 10 MG TABLET GT SCH ×4 (00:48→17:13)
[2020-03-09] MEDS: ALBUTEROL SULFATE 2.5 MG/3 ML NEBU NEB SCH ×6 (03:48→23:25)
[2020-03-09] MEDS: IPRATROPIUM BROMIDE 0.5 MG/2.5 ML NEBU NEB SCH ×6 (03:48→23:25)
[2020-03-09] MEDS: ARGININE/GLUTAMINE/CALCIUM BMB 1 EACH POWD.PACK GT SCH ×2 (05:37→17:13)
[2020-03-09] MEDS: OMEPRAZOLE 20 MG CAPSULE.DR GT SCH (05:38)
[2020-03-09] MEDS: PROTEIN SUPPLEMENT (PROSTAT) 30 ML LIQUID GT SCH ×3 (05:38→22:09)
--- NOTE | 2020-03-09 07:04 | NUR ---
No A/R to flu vaccine, afebrile.
[2020-03-09] MEDS: THERAHONEY GEL 1.5 OZ TUBE TOP SCH ×2 (08:39→21:00)
[2020-03-09] MEDS: ACETAMINOPHEN 650 MG/20.3 ML LIQUID UDC GT SCH (08:39)
[2020-03-09] MEDS: COD LIVER OIL/ZINC OXIDE OINT 113 GM TUBE TP SCH ×2 (08:39→21:00)
[2020-03-09] MEDS: SERTRALINE 25 MG GT SCH (08:39)
[2020-03-09] MEDS: ACIDOPHILUS/BULGARICUS CHEW TAB GT SCH ×2 (08:39→21:00)
[2020-03-09] MEDS: SODIUM HYPOCHLORITE 0.125% (QUARTER STRENGTH) 473 ML BOTTLE TP SCH ×2 (08:39→21:00)
[2020-03-09] MEDS: HYDROGEN PEROXIDE 3% 118 ML BOTTLE TP SCH ×2 (09:05→21:40)
--- NOTE | 2020-03-09 15:45 | NUR ---
SEEN BY AMY Lorenzo AND WITH NNO.
--- NOTE | 2020-03-09 16:00 | NUR ---
SEEN BY DR. CLAUDIO AND WITH NNO.
[2020-03-09] MEDS: JEVITY 1.2 1000 ML LIQUID GT PRN (17:14)
[2020-03-09 20:04] VITALS: BP 101/40
[2020-03-09] MEDS: MULTIVIT, IRON, MIN NO. 8, FA TABLET GT SCH (21:00)
[2020-03-09] MEDS: ESTROGENS,CONJU VAGINAL CREAM 42.5 GM TUBE VG SCH (21:00)
[2020-03-09] MEDS: SIMVASTATIN 10 MG TABLET GT SCH (21:00)
[2020-03-09] MEDS: ASCORBIC ACID 500 MG TABLET GT SCH (21:00)
[2020-03-09] MEDS: TEMAZEPAM 7.5 MG CAPSULE GT PRN (22:46)
[2020-03-10] MEDS: BACLOFEN 10 MG TABLET GT SCH ×4 (00:24→17:04)
[2020-03-10] MEDS: ALBUTEROL SULFATE 2.5 MG/3 ML NEBU NEB SCH ×6 (03:08→22:49)
[2020-03-10] MEDS: IPRATROPIUM BROMIDE 0.5 MG/2.5 ML NEBU NEB SCH ×6 (03:08→22:49)
[2020-03-10] MEDS: PROTEIN SUPPLEMENT (PROSTAT) 30 ML LIQUID GT SCH ×3 (05:43→21:43)
[2020-03-10] MEDS: OMEPRAZOLE 20 MG CAPSULE.DR GT SCH (05:43)
[2020-03-10] MEDS: ARGININE/GLUTAMINE/CALCIUM BMB 1 EACH POWD.PACK GT SCH ×2 (05:43→17:04)
[2020-03-10 07:22] VITALS: BP 117/57
[2020-03-10] MEDS: SERTRALINE 25 MG GT SCH (08:11)
[2020-03-10] MEDS: ACIDOPHILUS/BULGARICUS CHEW TAB GT SCH ×2 (08:11→21:42)
[2020-03-10] MEDS: ACETAMINOPHEN 650 MG/20.3 ML LIQUID UDC GT SCH (08:11)
[2020-03-10] MEDS: THERAHONEY GEL 1.5 OZ TUBE TOP SCH ×2 (09:14→21:42)
[2020-03-10] MEDS: SODIUM HYPOCHLORITE 0.125% (QUARTER STRENGTH) 473 ML BOTTLE TP SCH ×2 (09:14→21:42)
[2020-03-10] MEDS: COD LIVER OIL/ZINC OXIDE OINT 113 GM TUBE TP SCH ×2 (09:14→21:43)
[2020-03-10] MEDS: HYDROGEN PEROXIDE 3% 118 ML BOTTLE TP SCH ×2 (09:26→21:23)
[2020-03-10 20:45] VITALS: BP 102/48
[2020-03-10] MEDS: SIMVASTATIN 10 MG TABLET GT SCH (21:42)
[2020-03-10] MEDS: MULTIVIT, IRON, MIN NO. 8, FA TABLET GT SCH (21:42)
[2020-03-10] MEDS: ASCORBIC ACID 500 MG TABLET GT SCH (21:42)
[2020-03-10] MEDS: ESTROGENS,CONJU VAGINAL CREAM 42.5 GM TUBE VG SCH (21:43)
[2020-03-10] MEDS: JEVITY 1.2 1000 ML LIQUID GT PRN (23:21)
[2020-03-11] MEDS: BACLOFEN 10 MG TABLET GT SCH ×4 (00:56→17:00)
[2020-03-11] MEDS: ALBUTEROL SULFATE 2.5 MG/3 ML NEBU NEB SCH ×6 (02:49→23:45)
[2020-03-11] MEDS: IPRATROPIUM BROMIDE 0.5 MG/2.5 ML NEBU NEB SCH ×6 (02:49→23:45)
[2020-03-11] MEDS: OMEPRAZOLE 20 MG CAPSULE.DR GT SCH (05:23)
[2020-03-11] MEDS: PROTEIN SUPPLEMENT (PROSTAT) 30 ML LIQUID GT SCH ×3 (05:23→21:50)
[2020-03-11] MEDS: ARGININE/GLUTAMINE/CALCIUM BMB 1 EACH POWD.PACK GT SCH ×2 (05:23→17:00)
[2020-03-11] MEDS: HYDROGEN PEROXIDE 3% 118 ML BOTTLE TP SCH ×2 (07:10→21:45)
[2020-03-11 07:36] VITALS: BP 128/60
[2020-03-11] MEDS: SERTRALINE 25 MG GT SCH (08:15)
[2020-03-11] MEDS: ACIDOPHILUS/BULGARICUS CHEW TAB GT SCH ×2 (08:15→21:48)
[2020-03-11] MEDS: ACETAMINOPHEN 650 MG/20.3 ML LIQUID UDC GT SCH (08:15)
[2020-03-11] MEDS: THERAHONEY GEL 1.5 OZ TUBE TOP SCH ×2 (08:52→21:49)
[2020-03-11] MEDS: COD LIVER OIL/ZINC OXIDE OINT 113 GM TUBE TP SCH ×2 (08:53→21:50)
[2020-03-11] MEDS: SODIUM HYPOCHLORITE 0.125% (QUARTER STRENGTH) 473 ML BOTTLE TP SCH ×2 (08:53→21:50)
[2020-03-11] MEDS: ACETAMINOPHEN 650 MG/20 ML UDC- SA PATIENTS-PAIN ONLY GT PRN (14:07)
[2020-03-11 19:42] VITALS: BP 102/45
[2020-03-11] MEDS: ASCORBIC ACID 500 MG TABLET GT SCH (21:49)
[2020-03-11] MEDS: SIMVASTATIN 10 MG TABLET GT SCH (21:49)
[2020-03-11] MEDS: MULTIVIT, IRON, MIN NO. 8, FA TABLET GT SCH (21:49)
[2020-03-11] MEDS: ESTROGENS,CONJU VAGINAL CREAM 42.5 GM TUBE VG SCH (21:50)
[2020-03-11] MEDS: JEVITY 1.2 1000 ML LIQUID GT PRN (22:01)
[2020-03-12] MEDS: BACLOFEN 10 MG TABLET GT SCH ×5 (00:26→23:04)
[2020-03-12] MEDS: IPRATROPIUM BROMIDE 0.5 MG/2.5 ML NEBU NEB SCH ×6 (03:37→23:00)
[2020-03-12] MEDS: ALBUTEROL SULFATE 2.5 MG/3 ML NEBU NEB SCH ×6 (03:37→23:00)
[2020-03-12] MEDS: PROTEIN SUPPLEMENT (PROSTAT) 30 ML LIQUID GT SCH ×3 (05:55→22:00)
[2020-03-12] MEDS: OMEPRAZOLE 20 MG CAPSULE.DR GT SCH (05:55)
[2020-03-12] MEDS: ARGININE/GLUTAMINE/CALCIUM BMB 1 EACH POWD.PACK GT SCH ×2 (05:55→17:42)
[2020-03-12 07:22] VITALS: BP 104/68
[2020-03-12] MEDS: THERAHONEY GEL 1.5 OZ TUBE TOP SCH ×2 (08:46→20:44)
[2020-03-12] MEDS: ACIDOPHILUS/BULGARICUS CHEW TAB GT SCH ×2 (08:46→20:44)
[2020-03-12] MEDS: ACETAMINOPHEN 650 MG/20.3 ML LIQUID UDC GT SCH (08:46)
[2020-03-12] MEDS: SERTRALINE 25 MG GT SCH (08:46)
[2020-03-12] MEDS: SODIUM HYPOCHLORITE 0.125% (QUARTER STRENGTH) 473 ML BOTTLE TP SCH ×2 (08:47→20:44)
[2020-03-12] MEDS: COD LIVER OIL/ZINC OXIDE OINT 113 GM TUBE TP SCH ×2 (08:47→20:44)
[2020-03-12] MEDS: HYDROGEN PEROXIDE 3% 118 ML BOTTLE TP SCH ×2 (09:31→21:30)
[2020-03-12 19:59] VITALS: BP 131/81
--- NOTE | 2020-03-12 20:23 | NUR ---
CALLED RESPONSIBLE GREEN PARTY, RAKEL GARCIA ON [phone] AND INFORMED HER OF POSSIBLE COVID-19 EXPOSURE ON THE SUBACUTE UNIT AND THE FOLLOW UP TESTING PLAN FOR THE NEXT 14 DAYS, MANDATED BY [facility] REGULATIONS. ALSO NOTIFIED RAKEL THAT NURSING WILL CALL HER WITH THE RESULT IT BECOMES AVAILABLE. RAKEL EXPRESSED UNDERSTANDING.
[2020-03-12] MEDS: MULTIVIT, IRON, MIN NO. 8, FA TABLET GT SCH (20:44)
[2020-03-12] MEDS: ASCORBIC ACID 500 MG TABLET GT SCH (20:44)
[2020-03-12] MEDS: SIMVASTATIN 10 MG TABLET GT SCH (20:44)
[2020-03-12] MEDS: ESTROGENS,CONJU VAGINAL CREAM 42.5 GM TUBE VG SCH (20:45)
[2020-03-12] MEDS: TEMAZEPAM 7.5 MG CAPSULE GT PRN (23:05)
[2020-03-13] MEDS: JEVITY 1.2 1000 ML LIQUID GT PRN (00:35)
--- NOTE | 2020-03-13 01:26 | NUR ---
Patient is afebrile, No respiratory distress noted, 02 sat is 97%, will continue monitor.
[2020-03-13] MEDS: ALBUTEROL SULFATE 2.5 MG/3 ML NEBU NEB SCH ×6 (02:30→22:45)
[2020-03-13] MEDS: IPRATROPIUM BROMIDE 0.5 MG/2.5 ML NEBU NEB SCH ×6 (02:30→22:45)
[2020-03-13] MEDS: BACLOFEN 10 MG TABLET GT SCH ×4 (06:14→23:02)
[2020-03-13] MEDS: PROTEIN SUPPLEMENT (PROSTAT) 30 ML LIQUID GT SCH ×3 (06:14→21:39)
[2020-03-13] MEDS: OMEPRAZOLE 20 MG CAPSULE.DR GT SCH (06:14)
[2020-03-13] MEDS: ARGININE/GLUTAMINE/CALCIUM BMB 1 EACH POWD.PACK GT SCH ×2 (06:14→17:13)
[2020-03-13] MEDS: HYDROGEN PEROXIDE 3% 118 ML BOTTLE TP SCH ×2 (07:27→21:03)
[2020-03-13 08:16] VITALS: BP 105/67
[2020-03-13] MEDS: ACETAMINOPHEN 650 MG/20.3 ML LIQUID UDC GT SCH (08:21)
[2020-03-13] MEDS: SERTRALINE 25 MG GT SCH (08:22)
[2020-03-13] MEDS: ACIDOPHILUS/BULGARICUS CHEW TAB GT SCH ×2 (08:22→21:38)
[2020-03-13] MEDS: SODIUM HYPOCHLORITE 0.125% (QUARTER STRENGTH) 473 ML BOTTLE TP SCH ×2 (08:22→21:39)
[2020-03-13] MEDS: COD LIVER OIL/ZINC OXIDE OINT 113 GM TUBE TP SCH ×2 (08:22→21:39)
[2020-03-13] MEDS: THERAHONEY GEL 1.5 OZ TUBE TOP SCH ×2 (08:22→21:38)
[2020-03-13 20:11] VITALS: BP 99/42
[2020-03-13] MEDS: MULTIVIT, IRON, MIN NO. 8, FA TABLET GT SCH (21:38)
[2020-03-13] MEDS: ASCORBIC ACID 500 MG TABLET GT SCH (21:38)
[2020-03-13] MEDS: SIMVASTATIN 10 MG TABLET GT SCH (21:38)
[2020-03-13] MEDS: ESTROGENS,CONJU VAGINAL CREAM 42.5 GM TUBE VG SCH (21:39)
[2020-03-13] MEDS: TEMAZEPAM 7.5 MG CAPSULE GT PRN (23:02)
[2020-03-14] MEDS: ALBUTEROL SULFATE 2.5 MG/3 ML NEBU NEB SCH ×6 (03:02→22:47)
[2020-03-14] MEDS: IPRATROPIUM BROMIDE 0.5 MG/2.5 ML NEBU NEB SCH ×6 (03:02→22:47)
[2020-03-14] MEDS: PROTEIN SUPPLEMENT (PROSTAT) 30 ML LIQUID GT SCH ×3 (05:19→21:48)
[2020-03-14] MEDS: OMEPRAZOLE 20 MG CAPSULE.DR GT SCH (05:19)
[2020-03-14] MEDS: ARGININE/GLUTAMINE/CALCIUM BMB 1 EACH POWD.PACK GT SCH ×2 (05:19→17:39)
[2020-03-14] MEDS: BACLOFEN 10 MG TABLET GT SCH ×3 (05:19→17:39)
[2020-03-14] MEDS: JEVITY 1.2 1000 ML LIQUID GT PRN (06:00)
[2020-03-14 07:36] VITALS: BP 106/42
[2020-03-14] MEDS: ACETAMINOPHEN 650 MG/20.3 ML LIQUID UDC GT SCH (08:19)
[2020-03-14] MEDS: ACIDOPHILUS/BULGARICUS CHEW TAB GT SCH ×2 (08:20→21:47)
[2020-03-14] MEDS: THERAHONEY GEL 1.5 OZ TUBE TOP SCH ×2 (08:20→21:47)
[2020-03-14] MEDS: SERTRALINE 25 MG GT SCH (08:20)
[2020-03-14] MEDS: COD LIVER OIL/ZINC OXIDE OINT 113 GM TUBE TP SCH ×2 (08:20→21:48)
[2020-03-14] MEDS: SODIUM HYPOCHLORITE 0.125% (QUARTER STRENGTH) 473 ML BOTTLE TP SCH ×2 (08:20→21:48)
[2020-03-14] MEDS: HYDROGEN PEROXIDE 3% 118 ML BOTTLE TP SCH ×2 (09:00→21:05)
[2020-03-14 20:14] VITALS: BP 88/42
[2020-03-14] MEDS: ASCORBIC ACID 500 MG TABLET GT SCH (21:47)
[2020-03-14] MEDS: MULTIVIT, IRON, MIN NO. 8, FA TABLET GT SCH (21:47)
[2020-03-14] MEDS: SIMVASTATIN 10 MG TABLET GT SCH (21:47)
[2020-03-14] MEDS: ESTROGENS,CONJU VAGINAL CREAM 42.5 GM TUBE VG SCH (21:48)
[2020-03-14] MEDS: TEMAZEPAM 7.5 MG CAPSULE GT PRN (22:00)
[2020-03-15] MEDS: BACLOFEN 10 MG TABLET GT SCH ×4 (00:46→18:06)
[2020-03-15] MEDS: ALBUTEROL SULFATE 2.5 MG/3 ML NEBU NEB SCH ×6 (03:21→22:40)
[2020-03-15] MEDS: IPRATROPIUM BROMIDE 0.5 MG/2.5 ML NEBU NEB SCH ×6 (03:21→22:40)
[2020-03-15] MEDS: ARGININE/GLUTAMINE/CALCIUM BMB 1 EACH POWD.PACK GT SCH ×2 (05:15→18:06)
[2020-03-15] MEDS: PROTEIN SUPPLEMENT (PROSTAT) 30 ML LIQUID GT SCH ×3 (05:15→21:22)
[2020-03-15] MEDS: OMEPRAZOLE 20 MG CAPSULE.DR GT SCH (05:15)
[2020-03-15] MEDS: HYDROGEN PEROXIDE 3% 118 ML BOTTLE TP SCH ×2 (07:41→21:31)
[2020-03-15 07:58] VITALS: BP 120/72
[2020-03-15] MEDS: SODIUM HYPOCHLORITE 0.125% (QUARTER STRENGTH) 473 ML BOTTLE TP SCH ×2 (09:09→21:22)
[2020-03-15] MEDS: COD LIVER OIL/ZINC OXIDE OINT 113 GM TUBE TP SCH ×2 (09:09→21:22)
[2020-03-15] MEDS: SERTRALINE 25 MG GT SCH (09:09)
[2020-03-15] MEDS: ACIDOPHILUS/BULGARICUS CHEW TAB GT SCH ×2 (09:09→21:21)
[2020-03-15] MEDS: ACETAMINOPHEN 650 MG/20.3 ML LIQUID UDC GT SCH (09:09)
[2020-03-15] MEDS: THERAHONEY GEL 1.5 OZ TUBE TOP SCH ×2 (09:09→21:22)
[2020-03-15 20:19] VITALS: BP 102/58
[2020-03-15] MEDS: SIMVASTATIN 10 MG TABLET GT SCH (21:21)
[2020-03-15] MEDS: ASCORBIC ACID 500 MG TABLET GT SCH (21:21)
[2020-03-15] MEDS: MULTIVIT, IRON, MIN NO. 8, FA TABLET GT SCH (21:21)
[2020-03-15] MEDS: ESTROGENS,CONJU VAGINAL CREAM 42.5 GM TUBE VG SCH (21:22)
[2020-03-16] MEDS: ALBUTEROL SULFATE 2.5 MG/3 ML NEBU NEB SCH ×6 (02:30→23:04)
[2020-03-16] MEDS: IPRATROPIUM BROMIDE 0.5 MG/2.5 ML NEBU NEB SCH ×6 (02:30→23:04)
[2020-03-16] MEDS: ARGININE/GLUTAMINE/CALCIUM BMB 1 EACH POWD.PACK GT SCH ×2 (06:02→17:54)
[2020-03-16] MEDS: BACLOFEN 10 MG TABLET GT SCH ×4 (06:02→17:54)
[2020-03-16] MEDS: OMEPRAZOLE 20 MG CAPSULE.DR GT SCH (06:02)
[2020-03-16] MEDS: PROTEIN SUPPLEMENT (PROSTAT) 30 ML LIQUID GT SCH ×3 (06:02→21:41)
[2020-03-16] MEDS: JEVITY 1.2 1000 ML LIQUID GT PRN (06:12)
[2020-03-16 07:34] VITALS: BP 96/45
[2020-03-16] MEDS: ACETAMINOPHEN 650 MG/20.3 ML LIQUID UDC GT SCH (08:44)
[2020-03-16] MEDS: THERAHONEY GEL 1.5 OZ TUBE TOP SCH ×2 (08:44→21:41)
[2020-03-16] MEDS: COD LIVER OIL/ZINC OXIDE OINT 113 GM TUBE TP SCH ×2 (08:44→21:41)
[2020-03-16] MEDS: SODIUM HYPOCHLORITE 0.125% (QUARTER STRENGTH) 473 ML BOTTLE TP SCH ×2 (08:44→21:41)
[2020-03-16] MEDS: ACIDOPHILUS/BULGARICUS CHEW TAB GT SCH ×2 (08:44→21:41)
[2020-03-16] MEDS: SERTRALINE 25 MG GT SCH (08:44)
[2020-03-16] MEDS: HYDROGEN PEROXIDE 3% 118 ML BOTTLE TP SCH ×2 (09:16→21:24)
[2020-03-16 20:07] VITALS: BP 116/50
[2020-03-16] MEDS: ASCORBIC ACID 500 MG TABLET GT SCH (21:41)
[2020-03-16] MEDS: SIMVASTATIN 10 MG TABLET GT SCH (21:41)
[2020-03-16] MEDS: MULTIVIT, IRON, MIN NO. 8, FA TABLET GT SCH (21:41)
[2020-03-16] MEDS: ESTROGENS,CONJU VAGINAL CREAM 42.5 GM TUBE VG SCH (21:41)
[2020-03-17] MEDS: IPRATROPIUM BROMIDE 0.5 MG/2.5 ML NEBU NEB SCH ×6 (03:01→23:45)
[2020-03-17] MEDS: ALBUTEROL SULFATE 2.5 MG/3 ML NEBU NEB SCH ×6 (03:01→23:45)
[2020-03-17] MEDS: PROTEIN SUPPLEMENT (PROSTAT) 30 ML LIQUID GT SCH ×3 (05:48→21:58)
[2020-03-17] MEDS: ARGININE/GLUTAMINE/CALCIUM BMB 1 EACH POWD.PACK GT SCH ×2 (05:48→17:47)
[2020-03-17] MEDS: BACLOFEN 10 MG TABLET GT SCH ×4 (05:48→17:47)
[2020-03-17] MEDS: OMEPRAZOLE 20 MG CAPSULE.DR GT SCH (05:48)
[2020-03-17] MEDS: JEVITY 1.2 1000 ML LIQUID GT PRN (07:08)
[2020-03-17 07:19] LABS: BASOPHILS # (AUTO) 0.1 K/uL (0.0-8.0); BASOPHILS % (AUTO) 0.9 % (0.0-2.0); EOSINOPHILS # (AUTO) 0.3 K/uL (0.0-0.7); EOSINOPHILS % (AUTO) 4.7 % (0.0-7.0); HEMATOCRIT 38.7 % (31.2-41.9); HEMOGLOBIN 12.5 g/dL (10.9-14.3); LYMPHOCYTES # (AUTO) 2.2 K/uL (20.0-40.0); LYMPHOCYTES % (AUTO) 32.7 % (20.5-51.5); MEAN CORPUSCULAR HEMOGLOBIN 28.4 uug (24.7-32.8); MEAN CORPUSCULAR HGB CONC 32 g/dL (32.3-35.6); MEAN CORPUSCULAR VOLUME 87.9 fL (75.5-95.3); MONOCYTES # (AUTO) 0.7 K/uL (2.0-10.0); NEUTROPHILS # (AUTO) 3.5 K/uL (1.8-8.9); NEUTROPHILS % (AUTO) 51.7 % (38.5-71.5); PLATELET COUNT (AUTO) 201 K/uL (179-408); WHITE BLOOD COUNT (AUTO) 6.7 K/uL (3.8-11.8)
[2020-03-17] MEDS: HYDROGEN PEROXIDE 3% 118 ML BOTTLE TP SCH ×2 (07:38→21:10)
[2020-03-17 07:40] LABS: BILIRUBIN,TOTAL 0.2 mg/dL (0.2-1.0); CREATININE 0.7 mg/dL (0.6-1.3); POTASSIUM 4.1 mmol/L (3.5-5.1); TOTAL PROTEIN, SERUM 7.6 g/dL (6.4-8.2)
[2020-03-17 07:56] VITALS: BP 100/42
[2020-03-17] MEDS: COD LIVER OIL/ZINC OXIDE OINT 113 GM TUBE TP SCH ×2 (08:23→21:57)
[2020-03-17] MEDS: ACETAMINOPHEN 650 MG/20.3 ML LIQUID UDC GT SCH (08:23)
[2020-03-17] MEDS: THERAHONEY GEL 1.5 OZ TUBE TOP SCH ×2 (08:23→21:57)
[2020-03-17] MEDS: SERTRALINE 25 MG GT SCH (08:23)
[2020-03-17] MEDS: ACIDOPHILUS/BULGARICUS CHEW TAB GT SCH ×2 (08:23→21:57)
[2020-03-17] MEDS: SODIUM HYPOCHLORITE 0.125% (QUARTER STRENGTH) 473 ML BOTTLE TP SCH ×2 (08:23→21:57)
[2020-03-17 20:02] VITALS: BP 93/69
[2020-03-17] MEDS: ASCORBIC ACID 500 MG TABLET GT SCH (21:57)
[2020-03-17] MEDS: ESTROGENS,CONJU VAGINAL CREAM 42.5 GM TUBE VG SCH (21:57)
[2020-03-17] MEDS: MULTIVIT, IRON, MIN NO. 8, FA TABLET GT SCH (21:57)
[2020-03-17] MEDS: SIMVASTATIN 10 MG TABLET GT SCH (21:57)
[2020-03-18] MEDS: BACLOFEN 10 MG TABLET GT SCH ×4 (00:26→17:35)
[2020-03-18] MEDS: IPRATROPIUM BROMIDE 0.5 MG/2.5 ML NEBU NEB SCH ×6 (03:30→22:49)
[2020-03-18] MEDS: ALBUTEROL SULFATE 2.5 MG/3 ML NEBU NEB SCH ×6 (03:30→22:49)
[2020-03-18] MEDS: JEVITY 1.2 1000 ML LIQUID GT PRN (05:18)
[2020-03-18] MEDS: OMEPRAZOLE 20 MG CAPSULE.DR GT SCH (05:49)
[2020-03-18] MEDS: ARGININE/GLUTAMINE/CALCIUM BMB 1 EACH POWD.PACK GT SCH ×2 (05:49→17:35)
[2020-03-18] MEDS: PROTEIN SUPPLEMENT (PROSTAT) 30 ML LIQUID GT SCH ×3 (05:50→21:44)
[2020-03-18 07:44] VITALS: BP 102/59
[2020-03-18] MEDS: ACETAMINOPHEN 650 MG/20.3 ML LIQUID UDC GT SCH (08:57)
[2020-03-18] MEDS: ACIDOPHILUS/BULGARICUS CHEW TAB GT SCH ×2 (08:57→21:43)
[2020-03-18] MEDS: SERTRALINE 25 MG GT SCH (08:57)
[2020-03-18] MEDS: SODIUM HYPOCHLORITE 0.125% (QUARTER STRENGTH) 473 ML BOTTLE TP SCH ×2 (08:58→21:44)
[2020-03-18] MEDS: THERAHONEY GEL 1.5 OZ TUBE TOP SCH ×2 (08:58→21:44)
[2020-03-18] MEDS: COD LIVER OIL/ZINC OXIDE OINT 113 GM TUBE TP SCH ×2 (08:58→21:44)
[2020-03-18] MEDS: HYDROGEN PEROXIDE 3% 118 ML BOTTLE TP SCH ×2 (09:30→21:25)
[2020-03-18 19:53] VITALS: BP 103/49
[2020-03-18] MEDS: MULTIVIT, IRON, MIN NO. 8, FA TABLET GT SCH (21:43)
[2020-03-18] MEDS: ASCORBIC ACID 500 MG TABLET GT SCH (21:44)
[2020-03-18] MEDS: ESTROGENS,CONJU VAGINAL CREAM 42.5 GM TUBE VG SCH (21:44)
[2020-03-18] MEDS: SIMVASTATIN 10 MG TABLET GT SCH (21:44)
[2020-03-19] MEDS: BACLOFEN 10 MG TABLET GT SCH ×4 (00:21→17:34)
[2020-03-19] MEDS: ALBUTEROL SULFATE 2.5 MG/3 ML NEBU NEB SCH ×6 (03:03→22:47)
[2020-03-19] MEDS: IPRATROPIUM BROMIDE 0.5 MG/2.5 ML NEBU NEB SCH ×6 (03:03→22:46)
[2020-03-19] MEDS: JEVITY 1.2 1000 ML LIQUID GT PRN (05:00)
[2020-03-19] MEDS: OMEPRAZOLE 20 MG CAPSULE.DR GT SCH (05:31)
[2020-03-19] MEDS: ARGININE/GLUTAMINE/CALCIUM BMB 1 EACH POWD.PACK GT SCH ×2 (05:31→17:34)
[2020-03-19] MEDS: PROTEIN SUPPLEMENT (PROSTAT) 30 ML LIQUID GT SCH ×3 (05:31→21:56)
[2020-03-19 07:36] VITALS: BP 104/64
[2020-03-19] MEDS: HYDROGEN PEROXIDE 3% 118 ML BOTTLE TP SCH ×3 (08:31→21:16)
[2020-03-19] MEDS: SERTRALINE 25 MG GT SCH (08:48)
[2020-03-19] MEDS: ACETAMINOPHEN 650 MG/20.3 ML LIQUID UDC GT SCH (08:48)
[2020-03-19] MEDS: ACIDOPHILUS/BULGARICUS CHEW TAB GT SCH ×2 (08:48→21:56)
[2020-03-19] MEDS: COD LIVER OIL/ZINC OXIDE OINT 113 GM TUBE TP SCH ×2 (09:00→21:56)
[2020-03-19] MEDS: THERAHONEY GEL 1.5 OZ TUBE TOP SCH ×2 (09:00→21:56)
[2020-03-19] MEDS: SODIUM HYPOCHLORITE 0.125% (QUARTER STRENGTH) 473 ML BOTTLE TP SCH ×2 (09:00→21:56)
[2020-03-19] MEDS: SIMVASTATIN 10 MG TABLET GT SCH (21:56)
[2020-03-19] MEDS: ASCORBIC ACID 500 MG TABLET GT SCH (21:56)
[2020-03-19] MEDS: ESTROGENS,CONJU VAGINAL CREAM 42.5 GM TUBE VG SCH (21:56)
[2020-03-19] MEDS: MULTIVIT, IRON, MIN NO. 8, FA TABLET GT SCH (21:56)
[2020-03-19] MEDS: TEMAZEPAM 7.5 MG CAPSULE GT PRN (21:58)
[2020-03-19 23:02] VITALS: BP 118/48
[2020-03-20] MEDS: BACLOFEN 10 MG TABLET GT SCH ×4 (00:44→17:10)
[2020-03-20] MEDS: IPRATROPIUM BROMIDE 0.5 MG/2.5 ML NEBU NEB SCH ×6 (02:56→22:56)
[2020-03-20] MEDS: ALBUTEROL SULFATE 2.5 MG/3 ML NEBU NEB SCH ×6 (02:56→22:56)
[2020-03-20] MEDS: JEVITY 1.2 1000 ML LIQUID GT PRN (05:13)
[2020-03-20] MEDS: ARGININE/GLUTAMINE/CALCIUM BMB 1 EACH POWD.PACK GT SCH ×2 (05:14→17:10)
[2020-03-20] MEDS: PROTEIN SUPPLEMENT (PROSTAT) 30 ML LIQUID GT SCH ×3 (05:15→21:25)
[2020-03-20] MEDS: OMEPRAZOLE 20 MG CAPSULE.DR GT SCH (05:15)
[2020-03-20 07:52] VITALS: BP 100/47
[2020-03-20] MEDS: ACETAMINOPHEN 650 MG/20.3 ML LIQUID UDC GT SCH (08:26)
[2020-03-20] MEDS: SODIUM HYPOCHLORITE 0.125% (QUARTER STRENGTH) 473 ML BOTTLE TP SCH ×2 (08:27→21:25)
[2020-03-20] MEDS: COD LIVER OIL/ZINC OXIDE OINT 113 GM TUBE TP SCH ×2 (08:27→21:25)
[2020-03-20] MEDS: ACIDOPHILUS/BULGARICUS CHEW TAB GT SCH ×2 (08:27→21:25)
[2020-03-20] MEDS: THERAHONEY GEL 1.5 OZ TUBE TOP SCH ×2 (08:27→21:25)
[2020-03-20] MEDS: SERTRALINE 25 MG GT SCH (08:27)
[2020-03-20] MEDS: HYDROGEN PEROXIDE 3% 118 ML BOTTLE TP SCH ×2 (09:45→20:54)
[2020-03-20] MEDS: MULTIVIT, IRON, MIN NO. 8, FA TABLET GT SCH (21:25)
[2020-03-20] MEDS: TEMAZEPAM 7.5 MG CAPSULE GT PRN (21:25)
[2020-03-20] MEDS: SIMVASTATIN 10 MG TABLET GT SCH (21:25)
[2020-03-20] MEDS: ASCORBIC ACID 500 MG TABLET GT SCH (21:25)
[2020-03-20] MEDS: ESTROGENS,CONJU VAGINAL CREAM 42.5 GM TUBE VG SCH (21:25)
[2020-03-20 22:34] VITALS: BP 111/46
[2020-03-21] MEDS: BACLOFEN 10 MG TABLET GT SCH ×4 (00:33→17:59)
[2020-03-21] MEDS: ALBUTEROL SULFATE 2.5 MG/3 ML NEBU NEB SCH ×6 (03:01→23:25)
[2020-03-21] MEDS: IPRATROPIUM BROMIDE 0.5 MG/2.5 ML NEBU NEB SCH ×6 (03:01→23:25)
[2020-03-21] MEDS: JEVITY 1.2 1000 ML LIQUID GT PRN (05:27)
[2020-03-21] MEDS: ARGININE/GLUTAMINE/CALCIUM BMB 1 EACH POWD.PACK GT SCH ×2 (05:27→17:59)
[2020-03-21] MEDS: PROTEIN SUPPLEMENT (PROSTAT) 30 ML LIQUID GT SCH ×3 (05:27→21:39)
[2020-03-21] MEDS: OMEPRAZOLE 20 MG CAPSULE.DR GT SCH (05:27)
[2020-03-21 07:44] VITALS: BP 109/49
[2020-03-21] MEDS: SERTRALINE 25 MG GT SCH (09:05)
[2020-03-21] MEDS: ACIDOPHILUS/BULGARICUS CHEW TAB GT SCH ×2 (09:05→21:39)
[2020-03-21] MEDS: ACETAMINOPHEN 650 MG/20.3 ML LIQUID UDC GT SCH (09:05)
[2020-03-21] MEDS: COD LIVER OIL/ZINC OXIDE OINT 113 GM TUBE TP SCH ×2 (09:06→21:39)
[2020-03-21] MEDS: SODIUM HYPOCHLORITE 0.125% (QUARTER STRENGTH) 473 ML BOTTLE TP SCH ×2 (09:06→21:39)
[2020-03-21] MEDS: THERAHONEY GEL 1.5 OZ TUBE TOP SCH ×2 (09:06→21:39)
[2020-03-21] MEDS: HYDROGEN PEROXIDE 3% 118 ML BOTTLE TP SCH ×2 (09:15→21:40)
[2020-03-21] MEDS: ASCORBIC ACID 500 MG TABLET GT SCH (21:39)
[2020-03-21] MEDS: MULTIVIT, IRON, MIN NO. 8, FA TABLET GT SCH (21:39)
[2020-03-21] MEDS: ESTROGENS,CONJU VAGINAL CREAM 42.5 GM TUBE VG SCH (21:39)
[2020-03-21] MEDS: SIMVASTATIN 10 MG TABLET GT SCH (21:39)
[2020-03-21] MEDS: TEMAZEPAM 7.5 MG CAPSULE GT PRN (21:40)
[2020-03-21 23:04] VITALS: BP 100/46
[2020-03-22] MEDS: BACLOFEN 10 MG TABLET GT SCH ×5 (00:50→23:22)
[2020-03-22] MEDS: ALBUTEROL SULFATE 2.5 MG/3 ML NEBU NEB SCH ×6 (03:34→22:51)
[2020-03-22] MEDS: IPRATROPIUM BROMIDE 0.5 MG/2.5 ML NEBU NEB SCH ×6 (03:34→22:51)
[2020-03-22] MEDS: PROTEIN SUPPLEMENT (PROSTAT) 30 ML LIQUID GT SCH ×3 (05:55→21:34)
[2020-03-22] MEDS: ARGININE/GLUTAMINE/CALCIUM BMB 1 EACH POWD.PACK GT SCH ×2 (05:55→18:19)
[2020-03-22] MEDS: OMEPRAZOLE 20 MG CAPSULE.DR GT SCH (05:55)
[2020-03-22] MEDS: JEVITY 1.2 1000 ML LIQUID GT PRN (06:01)
[2020-03-22 07:40] VITALS: BP 92/58
[2020-03-22] MEDS: ACIDOPHILUS/BULGARICUS CHEW TAB GT SCH ×2 (08:36→21:34)
[2020-03-22] MEDS: ACETAMINOPHEN 650 MG/20.3 ML LIQUID UDC GT SCH (08:36)
[2020-03-22] MEDS: SERTRALINE 25 MG GT SCH (08:37)
[2020-03-22] MEDS: SODIUM HYPOCHLORITE 0.125% (QUARTER STRENGTH) 473 ML BOTTLE TP SCH ×2 (08:37→21:34)
[2020-03-22] MEDS: COD LIVER OIL/ZINC OXIDE OINT 113 GM TUBE TP SCH ×2 (08:37→21:34)
[2020-03-22] MEDS: THERAHONEY GEL 1.5 OZ TUBE TOP SCH ×2 (08:37→21:34)
[2020-03-22] MEDS: HYDROGEN PEROXIDE 3% 118 ML BOTTLE TP SCH ×2 (09:08→20:40)
[2020-03-22] MEDS: ASCORBIC ACID 500 MG TABLET GT SCH (21:34)
[2020-03-22] MEDS: ESTROGENS,CONJU VAGINAL CREAM 42.5 GM TUBE VG SCH (21:34)
[2020-03-22] MEDS: SIMVASTATIN 10 MG TABLET GT SCH (21:34)
[2020-03-22] MEDS: MULTIVIT, IRON, MIN NO. 8, FA TABLET GT SCH (21:34)
[2020-03-22] MEDS: TEMAZEPAM 7.5 MG CAPSULE GT PRN (21:34)
[2020-03-22 22:55] VITALS: BP 105/51
[2020-03-23] MEDS: ALBUTEROL SULFATE 2.5 MG/3 ML NEBU NEB SCH ×6 (02:56→23:30)
[2020-03-23] MEDS: IPRATROPIUM BROMIDE 0.5 MG/2.5 ML NEBU NEB SCH ×6 (02:56→23:30)
[2020-03-23] MEDS: BACLOFEN 10 MG TABLET GT SCH ×3 (05:37→17:32)
[2020-03-23] MEDS: PROTEIN SUPPLEMENT (PROSTAT) 30 ML LIQUID GT SCH ×3 (05:37→21:18)
[2020-03-23] MEDS: ARGININE/GLUTAMINE/CALCIUM BMB 1 EACH POWD.PACK GT SCH ×2 (05:37→17:32)
[2020-03-23] MEDS: OMEPRAZOLE 20 MG CAPSULE.DR GT SCH (05:37)
[2020-03-23] MEDS: JEVITY 1.2 1000 ML LIQUID GT PRN (06:46)
[2020-03-23 07:42] VITALS: BP 103/51
[2020-03-23] MEDS: ACETAMINOPHEN 650 MG/20.3 ML LIQUID UDC GT SCH (08:34)
[2020-03-23] MEDS: SERTRALINE 25 MG GT SCH (08:35)
[2020-03-23] MEDS: SODIUM HYPOCHLORITE 0.125% (QUARTER STRENGTH) 473 ML BOTTLE TP SCH ×2 (08:35→20:54)
[2020-03-23] MEDS: THERAHONEY GEL 1.5 OZ TUBE TOP SCH ×2 (08:35→20:54)
[2020-03-23] MEDS: ACIDOPHILUS/BULGARICUS CHEW TAB GT SCH ×2 (08:35→20:54)
[2020-03-23] MEDS: COD LIVER OIL/ZINC OXIDE OINT 113 GM TUBE TP SCH ×2 (08:35→20:54)
[2020-03-23] MEDS: HYDROGEN PEROXIDE 3% 118 ML BOTTLE TP SCH ×2 (09:00→21:00)
--- NOTE | 2020-03-23 16:00 | NUR ---
SEEN BY AMY Lorenzo AND WITH NNO.
--- NOTE | 2020-03-23 18:41 | NUR ---
NEW ORDER WAS CARRIED OUT FROM DR WALKER FOR COVID 19 TEST PER [facility] REQUIREMENT.PT'S DTR.RAKEL IN AGREEMENT.
[2020-03-23 20:46] VITALS: BP 110/47
[2020-03-23] MEDS: ASCORBIC ACID 500 MG TABLET GT SCH (20:54)
[2020-03-23] MEDS: SIMVASTATIN 10 MG TABLET GT SCH (20:54)
[2020-03-23] MEDS: ESTROGENS,CONJU VAGINAL CREAM 42.5 GM TUBE VG SCH (20:54)
[2020-03-23] MEDS: MULTIVIT, IRON, MIN NO. 8, FA TABLET GT SCH (20:54)
[2020-03-23] MEDS: TEMAZEPAM 7.5 MG CAPSULE GT PRN (21:19)
[2020-03-24] MEDS: BACLOFEN 10 MG TABLET GT SCH ×4 (00:02→17:14)
[2020-03-24] MEDS: IPRATROPIUM BROMIDE 0.5 MG/2.5 ML NEBU NEB SCH ×6 (03:26→22:48)
[2020-03-24] MEDS: ALBUTEROL SULFATE 2.5 MG/3 ML NEBU NEB SCH ×6 (03:27→22:48)
[2020-03-24] MEDS: OMEPRAZOLE 20 MG CAPSULE.DR GT SCH (05:13)
[2020-03-24] MEDS: PROTEIN SUPPLEMENT (PROSTAT) 30 ML LIQUID GT SCH ×3 (05:13→21:48)
[2020-03-24] MEDS: ARGININE/GLUTAMINE/CALCIUM BMB 1 EACH POWD.PACK GT SCH ×2 (05:13→17:14)
[2020-03-24] MEDS: JEVITY 1.2 1000 ML LIQUID GT PRN (05:14)
[2020-03-24 07:30] VITALS: BP 121/41
[2020-03-24] MEDS: THERAHONEY GEL 1.5 OZ TUBE TOP SCH ×2 (08:37→21:47)
[2020-03-24] MEDS: SERTRALINE 25 MG GT SCH (08:37)
[2020-03-24] MEDS: COD LIVER OIL/ZINC OXIDE OINT 113 GM TUBE TP SCH ×2 (08:37→21:48)
[2020-03-24] MEDS: SODIUM HYPOCHLORITE 0.125% (QUARTER STRENGTH) 473 ML BOTTLE TP SCH ×2 (08:37→21:48)
[2020-03-24] MEDS: ACIDOPHILUS/BULGARICUS CHEW TAB GT SCH ×2 (08:37→21:46)
[2020-03-24] MEDS: ACETAMINOPHEN 650 MG/20.3 ML LIQUID UDC GT SCH (08:37)
[2020-03-24] MEDS: HYDROGEN PEROXIDE 3% 118 ML BOTTLE TP SCH ×2 (09:00→21:13)
--- NOTE | 2020-03-24 11:15 | NUR ---
DOROTHY called patient's daughter Ludmila [phone] in response to a voicemail message this DOROTHY had received from Ludmila. Ludmila responded to the call, however asked if she can call this SW back because she was at the dentist's office. DOROTHY expressed understanding and asked Ludmila to call back whenever it was convenient for her.
--- NOTE | 2020-03-24 11:51 | NUR ---
DOROTHY received another voicemail message from patient's daughter Ludmila, stating that she is still at the dentist's office, and asked if this DOROTHY could call Ludmila back after 2pm. DOROTHY to follow up.
--- NOTE | 2020-03-24 19:14 | NUR ---
Covid19 test results negative.
[2020-03-24 20:00] VITALS: BP 113/40
[2020-03-24] MEDS: ASCORBIC ACID 500 MG TABLET GT SCH (21:46)
[2020-03-24] MEDS: MULTIVIT, IRON, MIN NO. 8, FA TABLET GT SCH (21:46)
[2020-03-24] MEDS: SIMVASTATIN 10 MG TABLET GT SCH (21:47)
[2020-03-24] MEDS: ESTROGENS,CONJU VAGINAL CREAM 42.5 GM TUBE VG SCH (21:48)
[2020-03-24] MEDS: TEMAZEPAM 7.5 MG CAPSULE GT PRN (21:49)
[2020-03-25] MEDS: IPRATROPIUM BROMIDE 0.5 MG/2.5 ML NEBU NEB SCH ×6 (03:15→23:01)
[2020-03-25] MEDS: ALBUTEROL SULFATE 2.5 MG/3 ML NEBU NEB SCH ×6 (03:15→23:01)
[2020-03-25] MEDS: JEVITY 1.2 1000 ML LIQUID GT PRN (03:57)
[2020-03-25] MEDS: BACLOFEN 10 MG TABLET GT SCH ×4 (05:49→17:39)
[2020-03-25] MEDS: ARGININE/GLUTAMINE/CALCIUM BMB 1 EACH POWD.PACK GT SCH ×2 (05:49→17:39)
[2020-03-25] MEDS: PROTEIN SUPPLEMENT (PROSTAT) 30 ML LIQUID GT SCH ×3 (05:49→22:02)
[2020-03-25] MEDS: OMEPRAZOLE 20 MG CAPSULE.DR GT SCH (05:49)
[2020-03-25 07:37] VITALS: BP 109/51
[2020-03-25] MEDS: COD LIVER OIL/ZINC OXIDE OINT 113 GM TUBE TP SCH ×2 (08:14→21:00)
[2020-03-25] MEDS: ACIDOPHILUS/BULGARICUS CHEW TAB GT SCH ×2 (08:14→21:00)
[2020-03-25] MEDS: SODIUM HYPOCHLORITE 0.125% (QUARTER STRENGTH) 473 ML BOTTLE TP SCH ×2 (08:14→21:00)
[2020-03-25] MEDS: SERTRALINE 25 MG GT SCH (08:14)
[2020-03-25] MEDS: ACETAMINOPHEN 650 MG/20.3 ML LIQUID UDC GT SCH (08:14)
[2020-03-25] MEDS: THERAHONEY GEL 1.5 OZ TUBE TOP SCH ×2 (08:14→21:00)
[2020-03-25] MEDS: HYDROGEN PEROXIDE 3% 118 ML BOTTLE TP SCH ×2 (09:00→21:45)
[2020-03-25 20:00] VITALS: BP 110/67
[2020-03-25] MEDS: ASCORBIC ACID 500 MG TABLET GT SCH (21:00)
[2020-03-25] MEDS: SIMVASTATIN 10 MG TABLET GT SCH (21:00)
[2020-03-25] MEDS: ESTROGENS,CONJU VAGINAL CREAM 42.5 GM TUBE VG SCH (21:00)
[2020-03-25] MEDS: MULTIVIT, IRON, MIN NO. 8, FA TABLET GT SCH (21:00)
[2020-03-25] MEDS: TEMAZEPAM 7.5 MG CAPSULE GT PRN (22:03)
[2020-03-26] MEDS: ALBUTEROL SULFATE 2.5 MG/3 ML NEBU NEB SCH ×6 (03:02→22:57)
[2020-03-26] MEDS: IPRATROPIUM BROMIDE 0.5 MG/2.5 ML NEBU NEB SCH ×6 (03:02→22:57)
[2020-03-26] MEDS: JEVITY 1.2 1000 ML LIQUID GT PRN (04:10)
[2020-03-26] MEDS: BACLOFEN 10 MG TABLET GT SCH ×4 (05:17→17:56)
[2020-03-26] MEDS: ARGININE/GLUTAMINE/CALCIUM BMB 1 EACH POWD.PACK GT SCH ×2 (05:17→17:56)
[2020-03-26] MEDS: OMEPRAZOLE 20 MG CAPSULE.DR GT SCH (05:17)
[2020-03-26] MEDS: PROTEIN SUPPLEMENT (PROSTAT) 30 ML LIQUID GT SCH ×3 (05:17→21:45)
[2020-03-26 07:38] VITALS: BP 101/72
[2020-03-26] MEDS: SODIUM HYPOCHLORITE 0.125% (QUARTER STRENGTH) 473 ML BOTTLE TP SCH ×2 (08:53→21:45)
[2020-03-26] MEDS: COD LIVER OIL/ZINC OXIDE OINT 113 GM TUBE TP SCH ×2 (08:53→21:45)
[2020-03-26] MEDS: SERTRALINE 25 MG GT SCH (08:53)
[2020-03-26] MEDS: ACIDOPHILUS/BULGARICUS CHEW TAB GT SCH ×2 (08:53→21:45)
[2020-03-26] MEDS: THERAHONEY GEL 1.5 OZ TUBE TOP SCH ×2 (08:53→21:45)
[2020-03-26] MEDS: ACETAMINOPHEN 650 MG/20.3 ML LIQUID UDC GT SCH (08:53)
[2020-03-26] MEDS: HYDROGEN PEROXIDE 3% 118 ML BOTTLE TP SCH ×2 (09:13→20:54)
[2020-03-26 20:00] VITALS: BP 106/50
[2020-03-26] MEDS: ASCORBIC ACID 500 MG TABLET GT SCH (21:45)
[2020-03-26] MEDS: SIMVASTATIN 10 MG TABLET GT SCH (21:45)
[2020-03-26] MEDS: MULTIVIT, IRON, MIN NO. 8, FA TABLET GT SCH (21:45)
[2020-03-26] MEDS: ESTROGENS,CONJU VAGINAL CREAM 42.5 GM TUBE VG SCH (21:45)
[2020-03-26] MEDS: TEMAZEPAM 7.5 MG CAPSULE GT PRN (21:47)
[2020-03-27] MEDS: ALBUTEROL SULFATE 2.5 MG/3 ML NEBU NEB SCH ×6 (02:46→22:42)
[2020-03-27] MEDS: IPRATROPIUM BROMIDE 0.5 MG/2.5 ML NEBU NEB SCH ×6 (02:46→22:42)
[2020-03-27] MEDS: JEVITY 1.2 1000 ML LIQUID GT PRN (03:59)
[2020-03-27] MEDS: BACLOFEN 10 MG TABLET GT SCH ×4 (05:38→17:47)
[2020-03-27] MEDS: PROTEIN SUPPLEMENT (PROSTAT) 30 ML LIQUID GT SCH ×3 (05:38→21:12)
[2020-03-27] MEDS: ARGININE/GLUTAMINE/CALCIUM BMB 1 EACH POWD.PACK GT SCH ×2 (05:38→17:47)
[2020-03-27] MEDS: OMEPRAZOLE 20 MG CAPSULE.DR GT SCH (05:38)
[2020-03-27 07:34] VITALS: BP 111/51
[2020-03-27] MEDS: ACETAMINOPHEN 650 MG/20.3 ML LIQUID UDC GT SCH (08:43)
[2020-03-27] MEDS: ACIDOPHILUS/BULGARICUS CHEW TAB GT SCH ×2 (08:44→21:11)
[2020-03-27] MEDS: SERTRALINE 25 MG GT SCH (08:44)
[2020-03-27] MEDS: HYDROGEN PEROXIDE 3% 118 ML BOTTLE TP SCH ×2 (09:00→21:29)
[2020-03-27] MEDS: THERAHONEY GEL 1.5 OZ TUBE TOP SCH ×2 (09:45→21:11)
[2020-03-27] MEDS: COD LIVER OIL/ZINC OXIDE OINT 113 GM TUBE TP SCH ×2 (09:50→21:11)
[2020-03-27] MEDS: SODIUM HYPOCHLORITE 0.125% (QUARTER STRENGTH) 473 ML BOTTLE TP SCH ×2 (09:50→21:11)
[2020-03-27 20:00] VITALS: BP 113/47
[2020-03-27] MEDS: ESTROGENS,CONJU VAGINAL CREAM 42.5 GM TUBE VG SCH (21:11)
[2020-03-27] MEDS: SIMVASTATIN 10 MG TABLET GT SCH (21:11)
[2020-03-27] MEDS: ASCORBIC ACID 500 MG TABLET GT SCH (21:11)
[2020-03-27] MEDS: MULTIVIT, IRON, MIN NO. 8, FA TABLET GT SCH (21:11)
[2020-03-28] MEDS: BACLOFEN 10 MG TABLET GT SCH ×4 (00:31→17:50)
[2020-03-28] MEDS: ALBUTEROL SULFATE 2.5 MG/3 ML NEBU NEB SCH ×6 (02:47→22:48)
[2020-03-28] MEDS: IPRATROPIUM BROMIDE 0.5 MG/2.5 ML NEBU NEB SCH ×6 (02:47→22:47)
[2020-03-28] MEDS: ARGININE/GLUTAMINE/CALCIUM BMB 1 EACH POWD.PACK GT SCH ×2 (05:34→17:50)
[2020-03-28] MEDS: PROTEIN SUPPLEMENT (PROSTAT) 30 ML LIQUID GT SCH ×3 (05:34→21:26)
[2020-03-28] MEDS: OMEPRAZOLE 20 MG CAPSULE.DR GT SCH (05:34)
[2020-03-28 07:31] VITALS: BP 107/31
[2020-03-28] MEDS: ACETAMINOPHEN 650 MG/20.3 ML LIQUID UDC GT SCH (08:53)
[2020-03-28] MEDS: SERTRALINE 25 MG GT SCH (08:54)
[2020-03-28] MEDS: ACIDOPHILUS/BULGARICUS CHEW TAB GT SCH ×2 (08:54→21:25)
[2020-03-28] MEDS: HYDROGEN PEROXIDE 3% 118 ML BOTTLE TP SCH ×2 (09:00→21:28)
[2020-03-28] MEDS: COD LIVER OIL/ZINC OXIDE OINT 113 GM TUBE TP SCH ×2 (09:15→21:26)
[2020-03-28] MEDS: SODIUM HYPOCHLORITE 0.125% (QUARTER STRENGTH) 473 ML BOTTLE TP SCH ×2 (09:15→21:26)
[2020-03-28] MEDS: THERAHONEY GEL 1.5 OZ TUBE TOP SCH ×2 (09:15→21:26)
[2020-03-28 20:00] VITALS: BP 108/52
[2020-03-28] MEDS: SIMVASTATIN 10 MG TABLET GT SCH (21:25)
[2020-03-28] MEDS: MULTIVIT, IRON, MIN NO. 8, FA TABLET GT SCH (21:25)
[2020-03-28] MEDS: ASCORBIC ACID 500 MG TABLET GT SCH (21:25)
[2020-03-28] MEDS: ESTROGENS,CONJU VAGINAL CREAM 42.5 GM TUBE VG SCH (21:26)
[2020-03-29] MEDS: BACLOFEN 10 MG TABLET GT SCH ×4 (00:08→17:26)
[2020-03-29] MEDS: IPRATROPIUM BROMIDE 0.5 MG/2.5 ML NEBU NEB SCH ×6 (02:51→22:46)
[2020-03-29] MEDS: ALBUTEROL SULFATE 2.5 MG/3 ML NEBU NEB SCH ×6 (02:51→22:46)
[2020-03-29] MEDS: ARGININE/GLUTAMINE/CALCIUM BMB 1 EACH POWD.PACK GT SCH ×2 (05:35→17:26)
[2020-03-29] MEDS: OMEPRAZOLE 20 MG CAPSULE.DR GT SCH (05:36)
[2020-03-29] MEDS: JEVITY 1.2 1000 ML LIQUID GT PRN (05:36)
[2020-03-29] MEDS: PROTEIN SUPPLEMENT (PROSTAT) 30 ML LIQUID GT SCH ×3 (05:36→21:39)
[2020-03-29 08:20] VITALS: BP 139/81
[2020-03-29] MEDS: ACETAMINOPHEN 650 MG/20.3 ML LIQUID UDC GT SCH (08:46)
[2020-03-29] MEDS: SERTRALINE 25 MG GT SCH (08:46)
[2020-03-29] MEDS: ACIDOPHILUS/BULGARICUS CHEW TAB GT SCH ×2 (08:46→21:38)
[2020-03-29] MEDS: SODIUM HYPOCHLORITE 0.125% (QUARTER STRENGTH) 473 ML BOTTLE TP SCH ×2 (08:47→21:39)
[2020-03-29] MEDS: COD LIVER OIL/ZINC OXIDE OINT 113 GM TUBE TP SCH ×2 (08:47→21:39)
[2020-03-29] MEDS: THERAHONEY GEL 1.5 OZ TUBE TOP SCH ×2 (08:47→21:39)
[2020-03-29] MEDS: HYDROGEN PEROXIDE 3% 118 ML BOTTLE TP SCH ×2 (10:00→21:50)
[2020-03-29 20:35] VITALS: BP 105/55
[2020-03-29] MEDS: MULTIVIT, IRON, MIN NO. 8, FA TABLET GT SCH (21:38)
[2020-03-29] MEDS: SIMVASTATIN 10 MG TABLET GT SCH (21:38)
[2020-03-29] MEDS: ASCORBIC ACID 500 MG TABLET GT SCH (21:38)
[2020-03-29] MEDS: ESTROGENS,CONJU VAGINAL CREAM 42.5 GM TUBE VG SCH (21:39)
[2020-03-30] MEDS: BACLOFEN 10 MG TABLET GT SCH ×4 (00:51→17:21)
[2020-03-30] MEDS: ALBUTEROL SULFATE 2.5 MG/3 ML NEBU NEB SCH ×6 (03:07→23:10)
[2020-03-30] MEDS: IPRATROPIUM BROMIDE 0.5 MG/2.5 ML NEBU NEB SCH ×6 (03:07→23:10)
[2020-03-30] MEDS: OMEPRAZOLE 20 MG CAPSULE.DR GT SCH (05:43)
[2020-03-30] MEDS: ARGININE/GLUTAMINE/CALCIUM BMB 1 EACH POWD.PACK GT SCH ×2 (05:43→17:21)
[2020-03-30] MEDS: PROTEIN SUPPLEMENT (PROSTAT) 30 ML LIQUID GT SCH ×3 (05:43→21:24)
[2020-03-30 07:30] VITALS: BP 99/57
[2020-03-30] MEDS: ACETAMINOPHEN 650 MG/20.3 ML LIQUID UDC GT SCH (08:18)
[2020-03-30] MEDS: ACIDOPHILUS/BULGARICUS CHEW TAB GT SCH ×2 (08:18→21:24)
[2020-03-30] MEDS: COD LIVER OIL/ZINC OXIDE OINT 113 GM TUBE TP SCH ×2 (08:19→21:24)
[2020-03-30] MEDS: SERTRALINE 25 MG GT SCH (08:19)
[2020-03-30] MEDS: SODIUM HYPOCHLORITE 0.125% (QUARTER STRENGTH) 473 ML BOTTLE TP SCH ×2 (08:19→21:24)
[2020-03-30] MEDS: THERAHONEY GEL 1.5 OZ TUBE TOP SCH ×2 (08:19→21:24)
[2020-03-30] MEDS: HYDROGEN PEROXIDE 3% 118 ML BOTTLE TP SCH ×2 (09:00→21:45)
--- NOTE | 2020-03-30 15:33 | NUR ---
DOROTHY received patient's annual Mobile Home Technician Payee Report form. DOROTHY informed Fabricio Leone in the accounting department that this SW will be forwarding the form to him through interoffice mail, for completing. Fabricio Lott stated that he would complete it and return it per written instructions on form. DOROTHY mailed the form to Fabricio Lott through interoffice mail.
[2020-03-30] MEDS: ASCORBIC ACID 500 MG TABLET GT SCH (21:24)
[2020-03-30] MEDS: ESTROGENS,CONJU VAGINAL CREAM 42.5 GM TUBE VG SCH (21:24)
[2020-03-30] MEDS: MULTIVIT, IRON, MIN NO. 8, FA TABLET GT SCH (21:24)
[2020-03-30] MEDS: SIMVASTATIN 10 MG TABLET GT SCH (21:24)
[2020-03-30 22:44] VITALS: BP 109/53
[2020-03-31] MEDS: BACLOFEN 10 MG TABLET GT SCH ×5 (00:18→23:46)
[2020-03-31] MEDS: IPRATROPIUM BROMIDE 0.5 MG/2.5 ML NEBU NEB SCH ×6 (03:01→23:06)
[2020-03-31] MEDS: ALBUTEROL SULFATE 2.5 MG/3 ML NEBU NEB SCH ×6 (03:01→23:06)
[2020-03-31] MEDS: ARGININE/GLUTAMINE/CALCIUM BMB 1 EACH POWD.PACK GT SCH ×2 (06:05→17:35)
[2020-03-31] MEDS: PROTEIN SUPPLEMENT (PROSTAT) 30 ML LIQUID GT SCH ×3 (06:05→21:09)
[2020-03-31] MEDS: OMEPRAZOLE 20 MG CAPSULE.DR GT SCH (06:05)
[2020-03-31] MEDS: HYDROGEN PEROXIDE 3% 118 ML BOTTLE TP SCH ×2 (07:10→21:54)
[2020-03-31 07:43] VITALS: BP 100/50
[2020-03-31] MEDS: ACETAMINOPHEN 650 MG/20.3 ML LIQUID UDC GT SCH (08:35)
[2020-03-31] MEDS: ACIDOPHILUS/BULGARICUS CHEW TAB GT SCH ×2 (08:44→21:08)
[2020-03-31] MEDS: SERTRALINE 25 MG GT SCH (08:44)
[2020-03-31] MEDS: THERAHONEY GEL 1.5 OZ TUBE TOP SCH ×2 (09:21→21:08)
[2020-03-31] MEDS: SODIUM HYPOCHLORITE 0.125% (QUARTER STRENGTH) 473 ML BOTTLE TP SCH ×2 (09:21→21:08)
[2020-03-31] MEDS: COD LIVER OIL/ZINC OXIDE OINT 113 GM TUBE TP SCH ×2 (09:21→21:08)
[2020-03-31] MEDS: JEVITY 1.2 1000 ML LIQUID GT PRN (11:01)
--- NOTE | 2020-03-31 15:45 | NUR ---
INTERDISCIPLINARY PLAN OF CARE CONFERENCE was held today. Patient's daughter was not available participate in the meeting. Dr. Sylvester and the Interdisciplinary team reviewed the current plan of care in detail. RN reported on the patient's medical condition and ongoing skin care treatment. No major changes in condition were reported by RN or by the other disciplines. See RN IDT conference notes. See also all other disciplines IDT notes and physician's progress notes for additional details.
[2020-03-31 21:01] VITALS: BP 103/60
[2020-03-31] MEDS: MULTIVIT, IRON, MIN NO. 8, FA TABLET GT SCH (21:08)
[2020-03-31] MEDS: SIMVASTATIN 10 MG TABLET GT SCH (21:08)
[2020-03-31] MEDS: ASCORBIC ACID 500 MG TABLET GT SCH (21:08)
[2020-03-31] MEDS: ESTROGENS,CONJU VAGINAL CREAM 42.5 GM TUBE VG SCH (21:09)
[2020-04-01] MEDS: IPRATROPIUM BROMIDE 0.5 MG/2.5 ML NEBU NEB SCH ×6 (02:30→22:40)
[2020-04-01] MEDS: ALBUTEROL SULFATE 2.5 MG/3 ML NEBU NEB SCH ×6 (02:30→22:40)
[2020-04-01] MEDS: BACLOFEN 10 MG TABLET GT SCH ×4 (05:37→23:48)
[2020-04-01] MEDS: PROTEIN SUPPLEMENT (PROSTAT) 30 ML LIQUID GT SCH ×3 (05:37→22:31)
[2020-04-01] MEDS: ARGININE/GLUTAMINE/CALCIUM BMB 1 EACH POWD.PACK GT SCH ×2 (05:37→18:14)
[2020-04-01] MEDS: OMEPRAZOLE 20 MG CAPSULE.DR GT SCH (05:37)
[2020-04-01] MEDS: HYDROGEN PEROXIDE 3% 118 ML BOTTLE TP SCH ×2 (07:45→21:12)
[2020-04-01 07:50] VITALS: BP 108/48
[2020-04-01] MEDS: SERTRALINE 25 MG GT SCH (08:40)
[2020-04-01] MEDS: ACETAMINOPHEN 650 MG/20.3 ML LIQUID UDC GT SCH (08:40)
[2020-04-01] MEDS: ACIDOPHILUS/BULGARICUS CHEW TAB GT SCH ×2 (08:40→21:00)
[2020-04-01] MEDS: COD LIVER OIL/ZINC OXIDE OINT 113 GM TUBE TP SCH ×2 (09:18→21:00)
[2020-04-01] MEDS: SODIUM HYPOCHLORITE 0.125% (QUARTER STRENGTH) 473 ML BOTTLE TP SCH ×2 (09:18→21:00)
[2020-04-01] MEDS: THERAHONEY GEL 1.5 OZ TUBE TOP SCH ×2 (09:18→21:00)
[2020-04-01 20:05] VITALS: BP 104/42
[2020-04-01] MEDS: MULTIVIT, IRON, MIN NO. 8, FA TABLET GT SCH (21:00)
[2020-04-01] MEDS: ESTROGENS,CONJU VAGINAL CREAM 42.5 GM TUBE VG SCH (21:00)
[2020-04-01] MEDS: ASCORBIC ACID 500 MG TABLET GT SCH (21:00)
[2020-04-01] MEDS: SIMVASTATIN 10 MG TABLET GT SCH (21:00)
[2020-04-02] MEDS: IPRATROPIUM BROMIDE 0.5 MG/2.5 ML NEBU NEB SCH ×6 (02:46→22:48)
[2020-04-02] MEDS: ALBUTEROL SULFATE 2.5 MG/3 ML NEBU NEB SCH ×6 (02:46→22:48)
[2020-04-02] MEDS: ARGININE/GLUTAMINE/CALCIUM BMB 1 EACH POWD.PACK GT SCH ×2 (06:00→17:15)
[2020-04-02] MEDS: OMEPRAZOLE 20 MG CAPSULE.DR GT SCH (06:00)
[2020-04-02] MEDS: BACLOFEN 10 MG TABLET GT SCH ×3 (06:00→17:15)
[2020-04-02] MEDS: PROTEIN SUPPLEMENT (PROSTAT) 30 ML LIQUID GT SCH ×3 (06:00→21:58)
[2020-04-02 08:00] VITALS: BP 99/42
[2020-04-02] MEDS: ACETAMINOPHEN 650 MG/20.3 ML LIQUID UDC GT SCH (08:36)
[2020-04-02] MEDS: ACIDOPHILUS/BULGARICUS CHEW TAB GT SCH ×2 (08:37→21:56)
[2020-04-02] MEDS: SODIUM HYPOCHLORITE 0.125% (QUARTER STRENGTH) 473 ML BOTTLE TP SCH ×2 (08:37→21:57)
[2020-04-02] MEDS: THERAHONEY GEL 1.5 OZ TUBE TOP SCH ×2 (08:37→21:57)
[2020-04-02] MEDS: SERTRALINE 25 MG GT SCH (08:37)
[2020-04-02] MEDS: COD LIVER OIL/ZINC OXIDE OINT 113 GM TUBE TP SCH ×2 (08:38→21:57)
[2020-04-02] MEDS: HYDROGEN PEROXIDE 3% 118 ML BOTTLE TP SCH ×2 (09:24→21:13)
[2020-04-02] MEDS: JEVITY 1.2 1000 ML LIQUID GT PRN (13:59)
[2020-04-02] MEDS: ASCORBIC ACID 500 MG TABLET GT SCH (21:56)
[2020-04-02] MEDS: MULTIVIT, IRON, MIN NO. 8, FA TABLET GT SCH (21:56)
[2020-04-02] MEDS: ESTROGENS,CONJU VAGINAL CREAM 42.5 GM TUBE VG SCH (21:57)
[2020-04-02] MEDS: SIMVASTATIN 10 MG TABLET GT SCH (21:57)
[2020-04-02] MEDS: TEMAZEPAM 7.5 MG CAPSULE GT PRN (22:00)
[2020-04-02 22:10] VITALS: BP 116/56
[2020-04-03] MEDS: BACLOFEN 10 MG TABLET GT SCH ×4 (00:10→17:35)
[2020-04-03] MEDS: IPRATROPIUM BROMIDE 0.5 MG/2.5 ML NEBU NEB SCH ×6 (03:16→23:05)
[2020-04-03] MEDS: ALBUTEROL SULFATE 2.5 MG/3 ML NEBU NEB SCH ×6 (03:16→23:05)
[2020-04-03] MEDS: PROTEIN SUPPLEMENT (PROSTAT) 30 ML LIQUID GT SCH ×3 (06:17→21:34)
[2020-04-03] MEDS: OMEPRAZOLE 20 MG CAPSULE.DR GT SCH (06:17)
[2020-04-03] MEDS: ARGININE/GLUTAMINE/CALCIUM BMB 1 EACH POWD.PACK GT SCH ×2 (06:17→17:35)
[2020-04-03] MEDS: HYDROGEN PEROXIDE 3% 118 ML BOTTLE TP SCH ×2 (07:12→21:00)
[2020-04-03] MEDS: ACIDOPHILUS/BULGARICUS CHEW TAB GT SCH ×2 (08:36→21:34)
[2020-04-03] MEDS: ACETAMINOPHEN 650 MG/20.3 ML LIQUID UDC GT SCH (08:36)
[2020-04-03] MEDS: THERAHONEY GEL 1.5 OZ TUBE TOP SCH (08:37)
[2020-04-03] MEDS: SODIUM HYPOCHLORITE 0.125% (QUARTER STRENGTH) 473 ML BOTTLE TP SCH (08:37)
[2020-04-03] MEDS: SERTRALINE 25 MG GT SCH (08:37)
[2020-04-03] MEDS: COD LIVER OIL/ZINC OXIDE OINT 113 GM TUBE TP SCH (08:37)
[2020-04-03] MEDS: ASCORBIC ACID 500 MG TABLET GT SCH (21:34)
[2020-04-03] MEDS: MULTIVIT, IRON, MIN NO. 8, FA TABLET GT SCH (21:34)
[2020-04-03] MEDS: SIMVASTATIN 10 MG TABLET GT SCH (21:34)
[2020-04-03] MEDS: ESTROGENS,CONJU VAGINAL CREAM 42.5 GM TUBE VG SCH (21:34)
[2020-04-03] MEDS: TEMAZEPAM 7.5 MG CAPSULE GT PRN (21:35)
[2020-04-03 22:08] VITALS: BP 109/48
[2020-04-04] MEDS: IPRATROPIUM BROMIDE 0.5 MG/2.5 ML NEBU NEB SCH ×6 (02:43→22:58)
[2020-04-04] MEDS: ALBUTEROL SULFATE 2.5 MG/3 ML NEBU NEB SCH ×6 (02:43→22:58)
[2020-04-04] MEDS: ARGININE/GLUTAMINE/CALCIUM BMB 1 EACH POWD.PACK GT SCH ×2 (05:25→17:33)
[2020-04-04] MEDS: OMEPRAZOLE 20 MG CAPSULE.DR GT SCH (05:25)
[2020-04-04] MEDS: PROTEIN SUPPLEMENT (PROSTAT) 30 ML LIQUID GT SCH ×3 (05:25→22:24)
[2020-04-04] MEDS: BACLOFEN 10 MG TABLET GT SCH ×4 (05:25→17:34)
[2020-04-04 07:34] VITALS: BP 118/56
[2020-04-04] MEDS: HYDROGEN PEROXIDE 3% 118 ML BOTTLE TP SCH ×2 (08:00→21:09)
[2020-04-04] MEDS: ACETAMINOPHEN 650 MG/20.3 ML LIQUID UDC GT SCH (08:20)
[2020-04-04] MEDS: JEVITY 1.2 1000 ML LIQUID GT PRN (08:21)
[2020-04-04] MEDS: SERTRALINE 25 MG GT SCH (08:23)
[2020-04-04] MEDS: ACIDOPHILUS/BULGARICUS CHEW TAB GT SCH ×2 (08:23→21:00)
[2020-04-04] MEDS: ACETAMINOPHEN 650 MG/20 ML UDC- SA PATIENTS-PAIN ONLY GT PRN (17:47)
[2020-04-04] MEDS: SIMVASTATIN 10 MG TABLET GT SCH (21:00)
[2020-04-04] MEDS: ESTROGENS,CONJU VAGINAL CREAM 42.5 GM TUBE VG SCH (21:00)
[2020-04-04] MEDS: MULTIVIT, IRON, MIN NO. 8, FA TABLET GT SCH (21:00)
[2020-04-04] MEDS: ASCORBIC ACID 500 MG TABLET GT SCH (21:00)
[2020-04-04] MEDS: TEMAZEPAM 7.5 MG CAPSULE GT PRN (22:24)
[2020-04-04 22:35] VITALS: BP 100/48
[2020-04-05] MEDS: BACLOFEN 10 MG TABLET GT SCH ×4 (00:36→17:52)
[2020-04-05] MEDS: ALBUTEROL SULFATE 2.5 MG/3 ML NEBU NEB SCH ×6 (02:58→22:40)
[2020-04-05] MEDS: IPRATROPIUM BROMIDE 0.5 MG/2.5 ML NEBU NEB SCH ×6 (02:58→22:40)
[2020-04-05] MEDS: JEVITY 1.2 1000 ML LIQUID GT PRN (03:41)
[2020-04-05] MEDS: OMEPRAZOLE 20 MG CAPSULE.DR GT SCH (05:38)
[2020-04-05] MEDS: ARGININE/GLUTAMINE/CALCIUM BMB 1 EACH POWD.PACK GT SCH ×2 (05:38→17:52)
[2020-04-05] MEDS: PROTEIN SUPPLEMENT (PROSTAT) 30 ML LIQUID GT SCH ×3 (05:38→21:13)
[2020-04-05 07:29] VITALS: BP 112/58
[2020-04-05] MEDS: HYDROGEN PEROXIDE 3% 118 ML BOTTLE TP SCH ×2 (07:55→21:09)
[2020-04-05] MEDS: SERTRALINE 25 MG GT SCH (08:44)
[2020-04-05] MEDS: ACETAMINOPHEN 650 MG/20.3 ML LIQUID UDC GT SCH (08:44)
[2020-04-05] MEDS: ACIDOPHILUS/BULGARICUS CHEW TAB GT SCH ×2 (08:44→21:13)
--- NOTE | 2020-04-05 15:28 | NUR ---
NEW ORDER CARRIED OUT FROM DR. WALKER AND PT'S DTRTamra ELLINGTON WAS AWARE AND IN AGREEMENT.
[2020-04-05] MEDS: ASCORBIC ACID 500 MG TABLET GT SCH (21:13)
[2020-04-05] MEDS: MULTIVIT, IRON, MIN NO. 8, FA TABLET GT SCH (21:13)
[2020-04-05] MEDS: SIMVASTATIN 10 MG TABLET GT SCH (21:13)
[2020-04-05] MEDS: ESTROGENS,CONJU VAGINAL CREAM 42.5 GM TUBE VG SCH (21:13)
[2020-04-05 22:43] VITALS: BP 104/47
[2020-04-06] MEDS: BACLOFEN 10 MG TABLET GT SCH ×4 (00:15→18:13)
[2020-04-06] MEDS: IPRATROPIUM BROMIDE 0.5 MG/2.5 ML NEBU NEB SCH ×6 (02:56→23:01)
[2020-04-06] MEDS: ALBUTEROL SULFATE 2.5 MG/3 ML NEBU NEB SCH ×6 (02:56→23:01)
[2020-04-06] MEDS: ARGININE/GLUTAMINE/CALCIUM BMB 1 EACH POWD.PACK GT SCH ×2 (05:34→18:13)
[2020-04-06] MEDS: PROTEIN SUPPLEMENT (PROSTAT) 30 ML LIQUID GT SCH ×3 (05:34→22:13)
[2020-04-06] MEDS: OMEPRAZOLE 20 MG CAPSULE.DR GT SCH (05:34)
[2020-04-06] MEDS: JEVITY 1.2 1000 ML LIQUID GT PRN (07:03)
[2020-04-06 08:00] VITALS: BP 102/44
[2020-04-06] MEDS: ACETAMINOPHEN 650 MG/20.3 ML LIQUID UDC GT SCH (08:59)
[2020-04-06] MEDS: SERTRALINE 25 MG GT SCH (08:59)
[2020-04-06] MEDS: ACIDOPHILUS/BULGARICUS CHEW TAB GT SCH ×2 (08:59→20:43)
[2020-04-06] MEDS: HYDROGEN PEROXIDE 3% 118 ML BOTTLE TP SCH ×2 (09:43→21:59)
--- NOTE | 2020-04-06 13:59 | NUR ---
PT'S DTR.RAKEL AWARE THAT PT. IS NEGATIVE FOR COVID19 TEST
[2020-04-06] MEDS: ESTROGENS,CONJU VAGINAL CREAM 42.5 GM TUBE VG SCH (20:43)
[2020-04-06] MEDS: ASCORBIC ACID 500 MG TABLET GT SCH (20:43)
[2020-04-06] MEDS: SIMVASTATIN 10 MG TABLET GT SCH (20:43)
[2020-04-06] MEDS: MULTIVIT, IRON, MIN NO. 8, FA TABLET GT SCH (20:43)
[2020-04-06 22:28] VITALS: BP 107/50
[2020-04-07] MEDS: BACLOFEN 10 MG TABLET GT SCH ×4 (00:47→17:52)
[2020-04-07] MEDS: ALBUTEROL SULFATE 2.5 MG/3 ML NEBU NEB SCH ×6 (03:01→22:41)
[2020-04-07] MEDS: IPRATROPIUM BROMIDE 0.5 MG/2.5 ML NEBU NEB SCH ×6 (03:01→22:41)
[2020-04-07] MEDS: OMEPRAZOLE 20 MG CAPSULE.DR GT SCH (05:35)
[2020-04-07] MEDS: ARGININE/GLUTAMINE/CALCIUM BMB 1 EACH POWD.PACK GT SCH ×2 (05:35→17:52)
[2020-04-07] MEDS: PROTEIN SUPPLEMENT (PROSTAT) 30 ML LIQUID GT SCH ×3 (05:35→21:39)
[2020-04-07 07:38] VITALS: BP 105/49
[2020-04-07] MEDS: ACIDOPHILUS/BULGARICUS CHEW TAB GT SCH ×2 (08:50→21:37)
[2020-04-07] MEDS: ACETAMINOPHEN 650 MG/20.3 ML LIQUID UDC GT SCH (08:50)
[2020-04-07] MEDS: SERTRALINE 25 MG GT SCH (08:52)
[2020-04-07] MEDS: HYDROGEN PEROXIDE 3% 118 ML BOTTLE TP SCH ×2 (09:44→21:30)
[2020-04-07 20:25] VITALS: BP 105/98
[2020-04-07] MEDS: ASCORBIC ACID 500 MG TABLET GT SCH (21:37)
[2020-04-07] MEDS: MULTIVIT, IRON, MIN NO. 8, FA TABLET GT SCH (21:37)
[2020-04-07] MEDS: SIMVASTATIN 10 MG TABLET GT SCH (21:38)
[2020-04-07] MEDS: ESTROGENS,CONJU VAGINAL CREAM 42.5 GM TUBE VG SCH (21:39)
[2020-04-07] MEDS: TEMAZEPAM 7.5 MG CAPSULE GT PRN (22:00)
[2020-04-08] MEDS: BACLOFEN 10 MG TABLET GT SCH ×4 (00:32→18:11)
[2020-04-08] MEDS: IPRATROPIUM BROMIDE 0.5 MG/2.5 ML NEBU NEB SCH ×6 (03:10→22:43)
[2020-04-08] MEDS: ALBUTEROL SULFATE 2.5 MG/3 ML NEBU NEB SCH ×6 (03:10→22:43)
[2020-04-08] MEDS: PROTEIN SUPPLEMENT (PROSTAT) 30 ML LIQUID GT SCH ×3 (05:38→22:00)
[2020-04-08] MEDS: OMEPRAZOLE 20 MG CAPSULE.DR GT SCH (05:38)
[2020-04-08] MEDS: ARGININE/GLUTAMINE/CALCIUM BMB 1 EACH POWD.PACK GT SCH ×2 (05:38→18:11)
--- NOTE | 2020-04-08 06:00 | NUR ---
Perea Catheter is noted to be out of place, re- inserted Catheter Fr # 20, patient tolerated procedure well. No bleeding from the Perea catheter, draining well with yellow urine output. Kept patient clean and comfortable.
[2020-04-08 07:28] VITALS: BP 119/68
[2020-04-08] MEDS: HYDROGEN PEROXIDE 3% 118 ML BOTTLE TP SCH ×2 (08:11→20:36)
[2020-04-08] MEDS: ACETAMINOPHEN 650 MG/20.3 ML LIQUID UDC GT SCH (08:30)
[2020-04-08] MEDS: SERTRALINE 25 MG GT SCH (09:00)
[2020-04-08] MEDS: ACIDOPHILUS/BULGARICUS CHEW TAB GT SCH ×2 (09:00→21:59)
[2020-04-08] MEDS: JEVITY 1.2 1000 ML LIQUID GT PRN (15:28)
--- NOTE | 2020-04-08 17:00 | NUR ---
Seen and examined By Ludmila Rubalcava,no new orders.
[2020-04-08 20:00] VITALS: BP 98/47
[2020-04-08] MEDS: COD LIVER OIL/ZINC OXIDE OINT 113 GM TUBE TP SCH (21:00)
[2020-04-08] MEDS: ESTROGENS,CONJU VAGINAL CREAM 42.5 GM TUBE VG SCH (21:00)
[2020-04-08] MEDS: SIMVASTATIN 10 MG TABLET GT SCH (21:59)
[2020-04-08] MEDS: MULTIVIT, IRON, MIN NO. 8, FA TABLET GT SCH (21:59)
[2020-04-08] MEDS: THERAHONEY GEL 1.5 OZ TUBE TOP SCH (21:59)
[2020-04-08] MEDS: ASCORBIC ACID 500 MG TABLET GT SCH (21:59)
[2020-04-08] MEDS: SODIUM HYPOCHLORITE 0.125% (QUARTER STRENGTH) 473 ML BOTTLE TP SCH (21:59)
[2020-04-09] MEDS: BACLOFEN 10 MG TABLET GT SCH ×4 (00:50→17:09)
[2020-04-09] MEDS: ALBUTEROL SULFATE 2.5 MG/3 ML NEBU NEB SCH ×6 (03:17→23:21)
[2020-04-09] MEDS: IPRATROPIUM BROMIDE 0.5 MG/2.5 ML NEBU NEB SCH ×6 (03:17→23:21)
[2020-04-09] MEDS: PROTEIN SUPPLEMENT (PROSTAT) 30 ML LIQUID GT SCH ×3 (05:27→21:28)
[2020-04-09] MEDS: OMEPRAZOLE 20 MG CAPSULE.DR GT SCH (05:27)
[2020-04-09] MEDS: ARGININE/GLUTAMINE/CALCIUM BMB 1 EACH POWD.PACK GT SCH ×2 (05:27→17:09)
[2020-04-09 07:33] VITALS: BP 107/47
[2020-04-09] MEDS: ACETAMINOPHEN 650 MG/20.3 ML LIQUID UDC GT SCH (08:20)
[2020-04-09] MEDS: ACIDOPHILUS/BULGARICUS CHEW TAB GT SCH ×2 (08:20→21:27)
[2020-04-09] MEDS: THERAHONEY GEL 1.5 OZ TUBE TOP SCH ×2 (08:21→21:27)
[2020-04-09] MEDS: SODIUM HYPOCHLORITE 0.125% (QUARTER STRENGTH) 473 ML BOTTLE TP SCH ×2 (08:21→21:28)
[2020-04-09] MEDS: SERTRALINE 25 MG GT SCH (08:21)
[2020-04-09] MEDS: COD LIVER OIL/ZINC OXIDE OINT 113 GM TUBE TP SCH ×2 (08:22→21:28)
[2020-04-09] MEDS: HYDROGEN PEROXIDE 3% 118 ML BOTTLE TP SCH ×2 (09:00→21:23)
[2020-04-09 20:00] VITALS: BP 116/65
[2020-04-09] MEDS: MULTIVIT, IRON, MIN NO. 8, FA TABLET GT SCH (21:27)
[2020-04-09] MEDS: ASCORBIC ACID 500 MG TABLET GT SCH (21:27)
[2020-04-09] MEDS: SIMVASTATIN 10 MG TABLET GT SCH (21:27)
[2020-04-09] MEDS: JEVITY 1.2 1000 ML LIQUID GT PRN (21:28)
[2020-04-09] MEDS: ESTROGENS,CONJU VAGINAL CREAM 42.5 GM TUBE VG SCH (21:28)
[2020-04-10] MEDS: BACLOFEN 10 MG TABLET GT SCH ×5 (00:39→23:11)
[2020-04-10] MEDS: ALBUTEROL SULFATE 2.5 MG/3 ML NEBU NEB SCH ×6 (03:01→22:57)
[2020-04-10] MEDS: IPRATROPIUM BROMIDE 0.5 MG/2.5 ML NEBU NEB SCH ×6 (03:01→22:57)
[2020-04-10] MEDS: ARGININE/GLUTAMINE/CALCIUM BMB 1 EACH POWD.PACK GT SCH ×2 (05:48→17:03)
[2020-04-10] MEDS: OMEPRAZOLE 20 MG CAPSULE.DR GT SCH (05:48)
[2020-04-10] MEDS: PROTEIN SUPPLEMENT (PROSTAT) 30 ML LIQUID GT SCH ×3 (05:48→21:27)
[2020-04-10 07:46] VITALS: BP 110/47
[2020-04-10] MEDS: HYDROGEN PEROXIDE 3% 118 ML BOTTLE TP SCH ×2 (08:20→21:06)
[2020-04-10] MEDS: ACETAMINOPHEN 650 MG/20.3 ML LIQUID UDC GT SCH (08:24)
[2020-04-10] MEDS: ACIDOPHILUS/BULGARICUS CHEW TAB GT SCH ×2 (08:24→21:27)
[2020-04-10] MEDS: SODIUM HYPOCHLORITE 0.125% (QUARTER STRENGTH) 473 ML BOTTLE TP SCH ×2 (08:25→21:27)
[2020-04-10] MEDS: SERTRALINE 25 MG GT SCH (08:25)
[2020-04-10] MEDS: THERAHONEY GEL 1.5 OZ TUBE TOP SCH ×2 (08:25→21:27)
[2020-04-10] MEDS: COD LIVER OIL/ZINC OXIDE OINT 113 GM TUBE TP SCH ×2 (08:25→21:27)
[2020-04-10 20:34] VITALS: BP 104/49
[2020-04-10] MEDS: JEVITY 1.2 1000 ML LIQUID GT PRN (21:27)
[2020-04-10] MEDS: ESTROGENS,CONJU VAGINAL CREAM 42.5 GM TUBE VG SCH (21:27)
[2020-04-10] MEDS: SIMVASTATIN 10 MG TABLET GT SCH (21:27)
[2020-04-10] MEDS: MULTIVIT, IRON, MIN NO. 8, FA TABLET GT SCH (21:27)
[2020-04-10] MEDS: ASCORBIC ACID 500 MG TABLET GT SCH (21:27)
[2020-04-10] MEDS: TEMAZEPAM 7.5 MG CAPSULE GT PRN (21:28)
[2020-04-11] MEDS: IPRATROPIUM BROMIDE 0.5 MG/2.5 ML NEBU NEB SCH ×6 (02:47→22:53)
[2020-04-11] MEDS: ALBUTEROL SULFATE 2.5 MG/3 ML NEBU NEB SCH ×6 (02:47→22:53)
[2020-04-11] MEDS: ARGININE/GLUTAMINE/CALCIUM BMB 1 EACH POWD.PACK GT SCH ×2 (05:41→17:21)
[2020-04-11] MEDS: PROTEIN SUPPLEMENT (PROSTAT) 30 ML LIQUID GT SCH ×3 (05:42→21:25)
[2020-04-11] MEDS: BACLOFEN 10 MG TABLET GT SCH ×4 (05:42→23:14)
[2020-04-11] MEDS: OMEPRAZOLE 20 MG CAPSULE.DR GT SCH (05:42)
[2020-04-11 07:46] VITALS: BP 114/51
[2020-04-11] MEDS: SERTRALINE 25 MG GT SCH (09:02)
[2020-04-11] MEDS: ACIDOPHILUS/BULGARICUS CHEW TAB GT SCH ×2 (09:02→21:25)
[2020-04-11] MEDS: ACETAMINOPHEN 650 MG/20.3 ML LIQUID UDC GT SCH (09:02)
[2020-04-11] MEDS: HYDROGEN PEROXIDE 3% 118 ML BOTTLE TP SCH ×2 (09:15→20:55)
[2020-04-11] MEDS: THERAHONEY GEL 1.5 OZ TUBE TOP SCH ×2 (09:45→21:25)
[2020-04-11] MEDS: COD LIVER OIL/ZINC OXIDE OINT 113 GM TUBE TP SCH ×2 (09:45→21:25)
[2020-04-11] MEDS: SODIUM HYPOCHLORITE 0.125% (QUARTER STRENGTH) 473 ML BOTTLE TP SCH ×2 (09:45→21:25)
[2020-04-11 20:54] VITALS: BP 109/47
[2020-04-11] MEDS: ASCORBIC ACID 500 MG TABLET GT SCH (21:25)
[2020-04-11] MEDS: MULTIVIT, IRON, MIN NO. 8, FA TABLET GT SCH (21:25)
[2020-04-11] MEDS: ESTROGENS,CONJU VAGINAL CREAM 42.5 GM TUBE VG SCH (21:25)
[2020-04-11] MEDS: SIMVASTATIN 10 MG TABLET GT SCH (21:25)
[2020-04-11] MEDS: TEMAZEPAM 7.5 MG CAPSULE GT PRN (21:25)
[2020-04-11] MEDS: JEVITY 1.2 1000 ML LIQUID GT PRN (21:25)
[2020-04-12] MEDS: IPRATROPIUM BROMIDE 0.5 MG/2.5 ML NEBU NEB SCH ×6 (02:53→22:40)
[2020-04-12] MEDS: ALBUTEROL SULFATE 2.5 MG/3 ML NEBU NEB SCH ×6 (02:53→22:40)
[2020-04-12] MEDS: OMEPRAZOLE 20 MG CAPSULE.DR GT SCH (05:18)
[2020-04-12] MEDS: PROTEIN SUPPLEMENT (PROSTAT) 30 ML LIQUID GT SCH ×3 (05:18→21:23)
[2020-04-12] MEDS: ARGININE/GLUTAMINE/CALCIUM BMB 1 EACH POWD.PACK GT SCH ×2 (05:18→17:53)
[2020-04-12] MEDS: BACLOFEN 10 MG TABLET GT SCH ×4 (05:18→23:20)
[2020-04-12 08:02] VITALS: BP 109/50
[2020-04-12] MEDS: ACETAMINOPHEN 650 MG/20.3 ML LIQUID UDC GT SCH (08:49)
[2020-04-12] MEDS: ACIDOPHILUS/BULGARICUS CHEW TAB GT SCH ×2 (08:50→21:23)
[2020-04-12] MEDS: SERTRALINE 25 MG GT SCH (08:52)
[2020-04-12] MEDS: HYDROGEN PEROXIDE 3% 118 ML BOTTLE TP SCH ×2 (09:50→19:27)
[2020-04-12] MEDS: THERAHONEY GEL 1.5 OZ TUBE TOP SCH ×2 (10:00→21:23)
[2020-04-12] MEDS: SODIUM HYPOCHLORITE 0.125% (QUARTER STRENGTH) 473 ML BOTTLE TP SCH ×2 (10:00→21:23)
[2020-04-12] MEDS: COD LIVER OIL/ZINC OXIDE OINT 113 GM TUBE TP SCH ×2 (10:00→21:23)
[2020-04-12] MEDS: JEVITY 1.2 1000 ML LIQUID GT PRN (18:08)
[2020-04-12 18:33] VITALS: BP 101/52
--- NOTE | 2020-04-12 18:42 | NUR ---
Covid 19 test done today.per [facility] requirement.Responsible democrat notified.
[2020-04-12 19:33] VITALS: BP 101/52
[2020-04-12] MEDS: ASCORBIC ACID 500 MG TABLET GT SCH (21:23)
[2020-04-12] MEDS: SIMVASTATIN 10 MG TABLET GT SCH (21:23)
[2020-04-12] MEDS: ESTROGENS,CONJU VAGINAL CREAM 42.5 GM TUBE VG SCH (21:23)
[2020-04-12] MEDS: MULTIVIT, IRON, MIN NO. 8, FA TABLET GT SCH (21:23)
[2020-04-12] MEDS: TEMAZEPAM 7.5 MG CAPSULE GT PRN (21:23)
[2020-04-13] MEDS: IPRATROPIUM BROMIDE 0.5 MG/2.5 ML NEBU NEB SCH ×6 (02:35→23:07)
[2020-04-13] MEDS: ALBUTEROL SULFATE 2.5 MG/3 ML NEBU NEB SCH ×6 (02:35→23:07)
[2020-04-13] MEDS: BACLOFEN 10 MG TABLET GT SCH ×3 (05:38→17:32)
[2020-04-13] MEDS: ARGININE/GLUTAMINE/CALCIUM BMB 1 EACH POWD.PACK GT SCH ×2 (05:38→17:32)
[2020-04-13] MEDS: PROTEIN SUPPLEMENT (PROSTAT) 30 ML LIQUID GT SCH ×3 (05:38→21:13)
[2020-04-13] MEDS: OMEPRAZOLE 20 MG CAPSULE.DR GT SCH (05:38)
[2020-04-13] MEDS: HYDROGEN PEROXIDE 3% 118 ML BOTTLE TP SCH ×2 (07:09→21:09)
[2020-04-13 07:40] VITALS: BP 109/39
[2020-04-13] MEDS: THERAHONEY GEL 1.5 OZ TUBE TOP SCH ×2 (08:37→21:13)
[2020-04-13] MEDS: ACIDOPHILUS/BULGARICUS CHEW TAB GT SCH ×2 (08:37→21:13)
[2020-04-13] MEDS: ACETAMINOPHEN 650 MG/20.3 ML LIQUID UDC GT SCH (08:37)
[2020-04-13] MEDS: COD LIVER OIL/ZINC OXIDE OINT 113 GM TUBE TP SCH ×2 (08:37→21:13)
[2020-04-13] MEDS: SERTRALINE 25 MG GT SCH (08:37)
[2020-04-13] MEDS: SODIUM HYPOCHLORITE 0.125% (QUARTER STRENGTH) 473 ML BOTTLE TP SCH ×2 (08:37→21:13)
--- NOTE | 2020-04-13 12:00 | NUR ---
SEEN BY AMY Lorenzo AND WITH NNO.
--- NOTE | 2020-04-13 17:51 | NUR ---
PT'S DTR. NEREYDA WAS AWARE THAT PT. WAS NEGATIVE FOR COVID 19 TEST.
[2020-04-13] MEDS: JEVITY 1.2 1000 ML LIQUID GT PRN (18:23)
[2020-04-13 20:27] VITALS: BP 98/55
[2020-04-13] MEDS: MULTIVIT, IRON, MIN NO. 8, FA TABLET GT SCH (21:13)
[2020-04-13] MEDS: ESTROGENS,CONJU VAGINAL CREAM 42.5 GM TUBE VG SCH (21:13)
[2020-04-13] MEDS: ASCORBIC ACID 500 MG TABLET GT SCH (21:13)
[2020-04-13] MEDS: SIMVASTATIN 10 MG TABLET GT SCH (21:13)
[2020-04-14] MEDS: BACLOFEN 10 MG TABLET GT SCH ×4 (00:58→18:57)
[2020-04-14] MEDS: IPRATROPIUM BROMIDE 0.5 MG/2.5 ML NEBU NEB SCH ×6 (03:03→23:30)
[2020-04-14] MEDS: ALBUTEROL SULFATE 2.5 MG/3 ML NEBU NEB SCH ×6 (03:03→23:30)
[2020-04-14] MEDS: ARGININE/GLUTAMINE/CALCIUM BMB 1 EACH POWD.PACK GT SCH ×2 (05:29→18:57)
[2020-04-14] MEDS: PROTEIN SUPPLEMENT (PROSTAT) 30 ML LIQUID GT SCH ×3 (05:29→21:26)
[2020-04-14] MEDS: OMEPRAZOLE 20 MG CAPSULE.DR GT SCH (05:29)
[2020-04-14 07:45] VITALS: BP 102/48
[2020-04-14] MEDS: HYDROGEN PEROXIDE 3% 118 ML BOTTLE TP SCH ×2 (08:05→21:00)
[2020-04-14] MEDS: ACETAMINOPHEN 650 MG/20.3 ML LIQUID UDC GT SCH (08:30)
--- NOTE | 2020-04-14 08:50 | NUR ---
SHIFT REPORT Recv'd report from night nurse. Pt. in stable condition. Non-verbal, trying to communicate by moving eyes and mouth. G-Tube intact and patent with no s/s of infection. Feeding running effectively. No s/s resp. distress noted. Bed low and alarm on. Call michaels with in reach.
[2020-04-14] MEDS: COD LIVER OIL/ZINC OXIDE OINT 113 GM TUBE TP SCH ×2 (09:00→21:26)
[2020-04-14] MEDS: SODIUM HYPOCHLORITE 0.125% (QUARTER STRENGTH) 473 ML BOTTLE TP SCH ×2 (09:00→21:26)
[2020-04-14] MEDS: SERTRALINE 25 MG GT SCH (09:00)
[2020-04-14] MEDS: THERAHONEY GEL 1.5 OZ TUBE TOP SCH ×2 (09:00→21:25)
[2020-04-14] MEDS: ACIDOPHILUS/BULGARICUS CHEW TAB GT SCH ×2 (09:00→21:24)
--- NOTE | 2020-04-14 19:35 | NUR ---
END OF SHIFT REPORT Report given to night nurse Marianna. Endorsed pt. in stable condition. Tx on sacrum done. No change in pt. status.
[2020-04-14 20:00] VITALS: BP 103/52
[2020-04-14] MEDS: ASCORBIC ACID 500 MG TABLET GT SCH (21:25)
[2020-04-14] MEDS: MULTIVIT, IRON, MIN NO. 8, FA TABLET GT SCH (21:25)
[2020-04-14] MEDS: SIMVASTATIN 10 MG TABLET GT SCH (21:25)
[2020-04-14] MEDS: ESTROGENS,CONJU VAGINAL CREAM 42.5 GM TUBE VG SCH (21:26)
[2020-04-14] MEDS: JEVITY 1.2 1000 ML LIQUID GT PRN (21:30)
[2020-04-15] MEDS: ALBUTEROL SULFATE 2.5 MG/3 ML NEBU NEB SCH ×6 (03:05→22:38)
[2020-04-15] MEDS: IPRATROPIUM BROMIDE 0.5 MG/2.5 ML NEBU NEB SCH ×6 (03:05→22:38)
[2020-04-15] MEDS: ARGININE/GLUTAMINE/CALCIUM BMB 1 EACH POWD.PACK GT SCH ×2 (06:12→17:21)
[2020-04-15] MEDS: BACLOFEN 10 MG TABLET GT SCH ×4 (06:12→17:21)
[2020-04-15] MEDS: PROTEIN SUPPLEMENT (PROSTAT) 30 ML LIQUID GT SCH ×3 (06:12→21:55)
[2020-04-15] MEDS: OMEPRAZOLE 20 MG CAPSULE.DR GT SCH (06:12)
[2020-04-15 07:46] VITALS: BP 109/42
[2020-04-15] MEDS: ACETAMINOPHEN 650 MG/20.3 ML LIQUID UDC GT SCH (08:30)
[2020-04-15] MEDS: SERTRALINE 25 MG GT SCH (09:35)
[2020-04-15] MEDS: THERAHONEY GEL 1.5 OZ TUBE TOP SCH ×2 (09:35→21:54)
[2020-04-15] MEDS: ACIDOPHILUS/BULGARICUS CHEW TAB GT SCH ×2 (09:35→21:53)
[2020-04-15] MEDS: SODIUM HYPOCHLORITE 0.125% (QUARTER STRENGTH) 473 ML BOTTLE TP SCH ×2 (09:35→21:55)
[2020-04-15] MEDS: COD LIVER OIL/ZINC OXIDE OINT 113 GM TUBE TP SCH ×2 (09:35→21:55)
[2020-04-15] MEDS: HYDROGEN PEROXIDE 3% 118 ML BOTTLE TP SCH ×2 (10:00→21:47)
[2020-04-15] MEDS: SIMVASTATIN 10 MG TABLET GT SCH (21:54)
[2020-04-15] MEDS: MULTIVIT, IRON, MIN NO. 8, FA TABLET GT SCH (21:54)
[2020-04-15] MEDS: ASCORBIC ACID 500 MG TABLET GT SCH (21:54)
[2020-04-15] MEDS: ESTROGENS,CONJU VAGINAL CREAM 42.5 GM TUBE VG SCH (21:55)
[2020-04-15] MEDS: JEVITY 1.2 1000 ML LIQUID GT PRN (22:00)
[2020-04-15 22:53] VITALS: BP 108/51
[2020-04-16] MEDS: BACLOFEN 10 MG TABLET GT SCH ×4 (00:52→17:06)
[2020-04-16] MEDS: ALBUTEROL SULFATE 2.5 MG/3 ML NEBU NEB SCH ×6 (02:43→22:42)
[2020-04-16] MEDS: IPRATROPIUM BROMIDE 0.5 MG/2.5 ML NEBU NEB SCH ×6 (02:43→22:42)
[2020-04-16] MEDS: ARGININE/GLUTAMINE/CALCIUM BMB 1 EACH POWD.PACK GT SCH ×2 (05:54→17:06)
[2020-04-16] MEDS: PROTEIN SUPPLEMENT (PROSTAT) 30 ML LIQUID GT SCH ×3 (05:54→22:03)
[2020-04-16] MEDS: OMEPRAZOLE 20 MG CAPSULE.DR GT SCH (05:54)
[2020-04-16 08:03] VITALS: BP 102/40
[2020-04-16] MEDS: ACETAMINOPHEN 650 MG/20.3 ML LIQUID UDC GT SCH (08:30)
[2020-04-16] MEDS: ACIDOPHILUS/BULGARICUS CHEW TAB GT SCH ×2 (09:32→21:00)
[2020-04-16] MEDS: THERAHONEY GEL 1.5 OZ TUBE TOP SCH ×2 (09:32→21:00)
[2020-04-16] MEDS: SERTRALINE 25 MG GT SCH (09:32)
[2020-04-16] MEDS: COD LIVER OIL/ZINC OXIDE OINT 113 GM TUBE TP SCH ×2 (09:33→21:00)
[2020-04-16] MEDS: SODIUM HYPOCHLORITE 0.125% (QUARTER STRENGTH) 473 ML BOTTLE TP SCH ×2 (09:33→21:00)
[2020-04-16] MEDS: HYDROGEN PEROXIDE 3% 118 ML BOTTLE TP SCH ×2 (09:54→21:37)
--- NOTE | 2020-04-16 12:30 | NUR ---
Noted F/C to be out when doing routine pt. care , re-insert F/C pt tolerated well, intact and patent at this time. Pt clean and comfortable, all needs attended.
--- NOTE | 2020-04-16 18:15 | NUR ---
Noted pt's F/C to be out again, charge nurse made aware and put the re-insertion on hold at this time to minimize infection. Pt also made nurses aware that she is not comfortable with the F/C. Pt remains comfortable at this time, all needs attended and anticipated.
--- NOTE | 2020-04-16 18:40 | NUR ---
PT. REFUSED F/C INSERTION AT THIS TIME.
[2020-04-16] MEDS: ASCORBIC ACID 500 MG TABLET GT SCH (21:00)
[2020-04-16] MEDS: ESTROGENS,CONJU VAGINAL CREAM 42.5 GM TUBE VG SCH (21:00)
[2020-04-16] MEDS: SIMVASTATIN 10 MG TABLET GT SCH (21:00)
[2020-04-16] MEDS: MULTIVIT, IRON, MIN NO. 8, FA TABLET GT SCH (21:00)
[2020-04-16] MEDS: TEMAZEPAM 7.5 MG CAPSULE GT PRN (22:00)
[2020-04-16] MEDS: JEVITY 1.2 1000 ML LIQUID GT PRN (22:30)
[2020-04-16 22:42] VITALS: BP 103/43
[2020-04-17] MEDS: TEMAZEPAM 7.5 MG CAPSULE GT PRN (01:34)
[2020-04-17] MEDS: ALBUTEROL SULFATE 2.5 MG/3 ML NEBU NEB SCH ×6 (03:25→23:12)
[2020-04-17] MEDS: IPRATROPIUM BROMIDE 0.5 MG/2.5 ML NEBU NEB SCH ×6 (03:25→23:12)
[2020-04-17] MEDS: OMEPRAZOLE 20 MG CAPSULE.DR GT SCH (05:10)
[2020-04-17] MEDS: ARGININE/GLUTAMINE/CALCIUM BMB 1 EACH POWD.PACK GT SCH ×2 (05:10→17:57)
[2020-04-17] MEDS: PROTEIN SUPPLEMENT (PROSTAT) 30 ML LIQUID GT SCH ×3 (05:10→21:09)
[2020-04-17] MEDS: BACLOFEN 10 MG TABLET GT SCH ×5 (05:10→23:21)
[2020-04-17 07:38] VITALS: BP 118/53
[2020-04-17] MEDS: ACIDOPHILUS/BULGARICUS CHEW TAB GT SCH ×2 (08:10→21:08)
[2020-04-17] MEDS: THERAHONEY GEL 1.5 OZ TUBE TOP SCH ×2 (08:10→21:08)
[2020-04-17] MEDS: ACETAMINOPHEN 650 MG/20.3 ML LIQUID UDC GT SCH (08:10)
[2020-04-17] MEDS: SERTRALINE 25 MG GT SCH (08:10)
[2020-04-17] MEDS: COD LIVER OIL/ZINC OXIDE OINT 113 GM TUBE TP SCH ×2 (08:11→21:08)
[2020-04-17] MEDS: SODIUM HYPOCHLORITE 0.125% (QUARTER STRENGTH) 473 ML BOTTLE TP SCH ×2 (08:11→21:08)
[2020-04-17] MEDS: HYDROGEN PEROXIDE 3% 118 ML BOTTLE TP SCH ×2 (08:42→21:20)
--- NOTE | 2020-04-17 15:37 | NUR ---
SEEN BY DR. CACERES AND WITH NNO.
[2020-04-17] MEDS: ASCORBIC ACID 500 MG TABLET GT SCH (21:08)
[2020-04-17] MEDS: MULTIVIT, IRON, MIN NO. 8, FA TABLET GT SCH (21:08)
[2020-04-17] MEDS: SIMVASTATIN 10 MG TABLET GT SCH (21:08)
[2020-04-17] MEDS: ESTROGENS,CONJU VAGINAL CREAM 42.5 GM TUBE VG SCH (21:09)
[2020-04-17 22:25] VITALS: BP 107/48
[2020-04-18] MEDS: JEVITY 1.2 1000 ML LIQUID GT PRN (02:10)
[2020-04-18] MEDS: ALBUTEROL SULFATE 2.5 MG/3 ML NEBU NEB SCH ×6 (03:12→22:42)
[2020-04-18] MEDS: IPRATROPIUM BROMIDE 0.5 MG/2.5 ML NEBU NEB SCH ×6 (03:12→22:42)
--- NOTE | 2020-04-18 05:30 | NUR ---
REINSERTED RIVERO CATHETER 20F, SECURED WITH 10ML NS. PATIENT TOLERATED PROCEDURE WELL. YELLOW CLEAR URINE FLOWING WELL. RIVERO CATHETER PATENT AND INTACT.
[2020-04-18] MEDS: PROTEIN SUPPLEMENT (PROSTAT) 30 ML LIQUID GT SCH ×3 (05:54→21:11)
[2020-04-18] MEDS: BACLOFEN 10 MG TABLET GT SCH ×3 (05:54→18:41)
[2020-04-18] MEDS: ARGININE/GLUTAMINE/CALCIUM BMB 1 EACH POWD.PACK GT SCH ×2 (05:54→18:00)
[2020-04-18] MEDS: OMEPRAZOLE 20 MG CAPSULE.DR GT SCH (05:54)
[2020-04-18 07:42] VITALS: BP 103/40
[2020-04-18] MEDS: HYDROGEN PEROXIDE 3% 118 ML BOTTLE TP SCH ×2 (07:50→21:40)
[2020-04-18] MEDS: SERTRALINE 25 MG GT SCH (09:18)
[2020-04-18] MEDS: ACIDOPHILUS/BULGARICUS CHEW TAB GT SCH ×2 (09:18→21:09)
[2020-04-18] MEDS: SODIUM HYPOCHLORITE 0.125% (QUARTER STRENGTH) 473 ML BOTTLE TP SCH ×2 (09:18→21:09)
[2020-04-18] MEDS: COD LIVER OIL/ZINC OXIDE OINT 113 GM TUBE TP SCH ×2 (09:18→21:09)
[2020-04-18] MEDS: ACETAMINOPHEN 650 MG/20.3 ML LIQUID UDC GT SCH (09:18)
[2020-04-18] MEDS: THERAHONEY GEL 1.5 OZ TUBE TOP SCH ×2 (09:18→21:09)
[2020-04-18] MEDS: MULTIVIT, IRON, MIN NO. 8, FA TABLET GT SCH (21:09)
[2020-04-18] MEDS: ASCORBIC ACID 500 MG TABLET GT SCH (21:09)
[2020-04-18] MEDS: SIMVASTATIN 10 MG TABLET GT SCH (21:09)
[2020-04-18] MEDS: ESTROGENS,CONJU VAGINAL CREAM 42.5 GM TUBE VG SCH (21:10)
[2020-04-18] MEDS: ACETAMINOPHEN 650 MG/20 ML UDC- SA PATIENTS-PAIN ONLY GT PRN (22:58)
[2020-04-18 23:04] VITALS: BP 110/68
[2020-04-19] MEDS: BACLOFEN 10 MG TABLET GT SCH ×4 (00:42→18:27)
[2020-04-19] MEDS: IPRATROPIUM BROMIDE 0.5 MG/2.5 ML NEBU NEB SCH ×6 (03:10→22:41)
[2020-04-19] MEDS: ALBUTEROL SULFATE 2.5 MG/3 ML NEBU NEB SCH ×6 (03:10→22:41)
[2020-04-19] MEDS: ARGININE/GLUTAMINE/CALCIUM BMB 1 EACH POWD.PACK GT SCH ×2 (06:14→18:27)
[2020-04-19] MEDS: PROTEIN SUPPLEMENT (PROSTAT) 30 ML LIQUID GT SCH ×3 (06:14→22:02)
[2020-04-19] MEDS: OMEPRAZOLE 20 MG CAPSULE.DR GT SCH (06:14)
[2020-04-19] MEDS: JEVITY 1.2 1000 ML LIQUID GT PRN (06:14)
[2020-04-19 07:44] VITALS: BP 104/62
[2020-04-19] MEDS: HYDROGEN PEROXIDE 3% 118 ML BOTTLE TP SCH ×2 (07:50→21:13)
[2020-04-19] MEDS: ACETAMINOPHEN 650 MG/20.3 ML LIQUID UDC GT SCH (09:18)
[2020-04-19] MEDS: SODIUM HYPOCHLORITE 0.125% (QUARTER STRENGTH) 473 ML BOTTLE TP SCH ×2 (09:19→20:38)
[2020-04-19] MEDS: SERTRALINE 25 MG GT SCH (09:19)
[2020-04-19] MEDS: COD LIVER OIL/ZINC OXIDE OINT 113 GM TUBE TP SCH ×2 (09:19→20:38)
[2020-04-19] MEDS: ACIDOPHILUS/BULGARICUS CHEW TAB GT SCH ×2 (09:19→20:37)
[2020-04-19] MEDS: THERAHONEY GEL 1.5 OZ TUBE TOP SCH ×2 (09:19→20:38)
[2020-04-19 19:57] VITALS: BP 114/49
[2020-04-19] MEDS: MULTIVIT, IRON, MIN NO. 8, FA TABLET GT SCH (20:37)
[2020-04-19] MEDS: SIMVASTATIN 10 MG TABLET GT SCH (20:37)
[2020-04-19] MEDS: ASCORBIC ACID 500 MG TABLET GT SCH (20:37)
[2020-04-19] MEDS: ESTROGENS,CONJU VAGINAL CREAM 42.5 GM TUBE VG SCH (20:38)
[2020-04-20] MEDS: BACLOFEN 10 MG TABLET GT SCH ×5 (00:13→23:35)
[2020-04-20] MEDS: ALBUTEROL SULFATE 2.5 MG/3 ML NEBU NEB SCH ×6 (03:23→23:12)
[2020-04-20] MEDS: IPRATROPIUM BROMIDE 0.5 MG/2.5 ML NEBU NEB SCH ×6 (03:23→23:12)
[2020-04-20] MEDS: JEVITY 1.2 1000 ML LIQUID GT PRN (03:53)
[2020-04-20] MEDS: OMEPRAZOLE 20 MG CAPSULE.DR GT SCH (06:14)
[2020-04-20] MEDS: ARGININE/GLUTAMINE/CALCIUM BMB 1 EACH POWD.PACK GT SCH ×2 (06:14→17:46)
[2020-04-20] MEDS: PROTEIN SUPPLEMENT (PROSTAT) 30 ML LIQUID GT SCH ×3 (06:14→21:13)
--- NOTE | 2020-04-20 07:14 | NUR ---
Will test patient for COVID-19 today.
[2020-04-20] MEDS: HYDROGEN PEROXIDE 3% 118 ML BOTTLE TP SCH ×2 (07:18→21:55)
[2020-04-20 07:33] VITALS: BP 113/55
[2020-04-20] MEDS: ACIDOPHILUS/BULGARICUS CHEW TAB GT SCH ×2 (09:23→21:12)
[2020-04-20] MEDS: SERTRALINE 25 MG GT SCH (09:23)
[2020-04-20] MEDS: SODIUM HYPOCHLORITE 0.125% (QUARTER STRENGTH) 473 ML BOTTLE TP SCH ×2 (09:23→21:12)
[2020-04-20] MEDS: COD LIVER OIL/ZINC OXIDE OINT 113 GM TUBE TP SCH ×2 (09:23→21:13)
[2020-04-20] MEDS: ACETAMINOPHEN 650 MG/20.3 ML LIQUID UDC GT SCH (09:23)
[2020-04-20] MEDS: THERAHONEY GEL 1.5 OZ TUBE TOP SCH ×2 (09:23→21:12)
--- NOTE | 2020-04-20 12:00 | NUR ---
SEEN BY AMY Lorenzo AND WITH NNO.
--- NOTE | 2020-04-20 17:33 | NUR ---
NO COVID 19 TEST REQUIRED TODAY PER [facility] AND PT'S DTR. RAKEL MAGUIRE.
[2020-04-20 19:52] VITALS: BP 110/50
[2020-04-20] MEDS: MULTIVIT, IRON, MIN NO. 8, FA TABLET GT SCH (21:12)
[2020-04-20] MEDS: SIMVASTATIN 10 MG TABLET GT SCH (21:12)
[2020-04-20] MEDS: ASCORBIC ACID 500 MG TABLET GT SCH (21:12)
[2020-04-20] MEDS: ESTROGENS,CONJU VAGINAL CREAM 42.5 GM TUBE VG SCH (21:13)
[2020-04-21] MEDS: ALBUTEROL SULFATE 2.5 MG/3 ML NEBU NEB SCH ×6 (03:05→22:48)
[2020-04-21] MEDS: IPRATROPIUM BROMIDE 0.5 MG/2.5 ML NEBU NEB SCH ×6 (03:05→22:48)
[2020-04-21] MEDS: BACLOFEN 10 MG TABLET GT SCH ×4 (05:30→23:51)
[2020-04-21] MEDS: ARGININE/GLUTAMINE/CALCIUM BMB 1 EACH POWD.PACK GT SCH ×2 (05:30→18:06)
[2020-04-21] MEDS: OMEPRAZOLE 20 MG CAPSULE.DR GT SCH (05:30)
[2020-04-21] MEDS: PROTEIN SUPPLEMENT (PROSTAT) 30 ML LIQUID GT SCH ×3 (05:30→21:26)
[2020-04-21 07:30] VITALS: BP 100/45
[2020-04-21 08:00] VITALS: BP 100/45
[2020-04-21] MEDS: ACETAMINOPHEN 650 MG/20.3 ML LIQUID UDC GT SCH (09:18)
[2020-04-21] MEDS: ACIDOPHILUS/BULGARICUS CHEW TAB GT SCH ×2 (09:18→21:25)
[2020-04-21] MEDS: SERTRALINE 25 MG GT SCH (09:18)
[2020-04-21] MEDS: HYDROGEN PEROXIDE 3% 118 ML BOTTLE TP SCH ×2 (09:24→21:07)
[2020-04-21] MEDS: COD LIVER OIL/ZINC OXIDE OINT 113 GM TUBE TP SCH ×2 (09:51→21:26)
[2020-04-21] MEDS: THERAHONEY GEL 1.5 OZ TUBE TOP SCH ×2 (09:51→21:26)
[2020-04-21] MEDS: SODIUM HYPOCHLORITE 0.125% (QUARTER STRENGTH) 473 ML BOTTLE TP SCH ×2 (09:51→21:26)
--- NOTE | 2020-04-21 14:10 | NUR ---
INTERDISCIPLINARY PLAN OF CARE CONFERENCE was held today. Patient's daughter Ludmila was not available to participate in the meeting. Dr. Sylvester and the Interdisciplinary team reviewed the current plan of care in detail. RN reported on the patient's medical condition, and ongoing wound care. No major changes in patient's condition were reported by RN or by the other disciplines. See RN IDT conference notes. See also all other disciplines IDT notes and physician's progress notes for additional details.
[2020-04-21 20:01] VITALS: BP 106/53
[2020-04-21] MEDS: MULTIVIT, IRON, MIN NO. 8, FA TABLET GT SCH (21:25)
[2020-04-21] MEDS: SIMVASTATIN 10 MG TABLET GT SCH (21:26)
[2020-04-21] MEDS: ESTROGENS,CONJU VAGINAL CREAM 42.5 GM TUBE VG SCH (21:26)
[2020-04-21] MEDS: ASCORBIC ACID 500 MG TABLET GT SCH (21:26)
[2020-04-22] MEDS: ALBUTEROL SULFATE 2.5 MG/3 ML NEBU NEB SCH ×6 (03:03→22:59)
[2020-04-22] MEDS: IPRATROPIUM BROMIDE 0.5 MG/2.5 ML NEBU NEB SCH ×6 (03:03→22:59)
[2020-04-22] MEDS: JEVITY 1.2 1000 ML LIQUID GT PRN (04:23)
[2020-04-22] MEDS: BACLOFEN 10 MG TABLET GT SCH ×3 (05:30→18:03)
[2020-04-22] MEDS: OMEPRAZOLE 20 MG CAPSULE.DR GT SCH (05:30)
[2020-04-22] MEDS: PROTEIN SUPPLEMENT (PROSTAT) 30 ML LIQUID GT SCH ×3 (05:30→21:13)
[2020-04-22] MEDS: ARGININE/GLUTAMINE/CALCIUM BMB 1 EACH POWD.PACK GT SCH ×2 (05:30→18:03)
[2020-04-22 07:20] VITALS: BP 116/48
[2020-04-22] MEDS: HYDROGEN PEROXIDE 3% 118 ML BOTTLE TP SCH ×2 (08:06→20:59)
[2020-04-22] MEDS: SERTRALINE 25 MG GT SCH (09:11)
[2020-04-22] MEDS: ACIDOPHILUS/BULGARICUS CHEW TAB GT SCH ×2 (09:11→20:18)
[2020-04-22] MEDS: SODIUM HYPOCHLORITE 0.125% (QUARTER STRENGTH) 473 ML BOTTLE TP SCH ×2 (09:11→20:19)
[2020-04-22] MEDS: THERAHONEY GEL 1.5 OZ TUBE TOP SCH ×2 (09:11→20:19)
[2020-04-22] MEDS: COD LIVER OIL/ZINC OXIDE OINT 113 GM TUBE TP SCH ×2 (09:11→20:19)
[2020-04-22] MEDS: ACETAMINOPHEN 650 MG/20.3 ML LIQUID UDC GT SCH (09:11)
[2020-04-22 20:02] VITALS: BP 102/54
[2020-04-22] MEDS: MULTIVIT, IRON, MIN NO. 8, FA TABLET GT SCH (20:18)
[2020-04-22] MEDS: ASCORBIC ACID 500 MG TABLET GT SCH (20:18)
[2020-04-22] MEDS: ESTROGENS,CONJU VAGINAL CREAM 42.5 GM TUBE VG SCH (20:19)
[2020-04-22] MEDS: SIMVASTATIN 10 MG TABLET GT SCH (20:19)
[2020-04-23] MEDS: ALBUTEROL SULFATE 2.5 MG/3 ML NEBU NEB SCH ×6 (03:07→23:03)
[2020-04-23] MEDS: IPRATROPIUM BROMIDE 0.5 MG/2.5 ML NEBU NEB SCH ×6 (03:07→23:03)
[2020-04-23] MEDS: BACLOFEN 10 MG TABLET GT SCH ×4 (05:55→17:20)
[2020-04-23] MEDS: ARGININE/GLUTAMINE/CALCIUM BMB 1 EACH POWD.PACK GT SCH ×2 (05:55→17:20)
[2020-04-23] MEDS: OMEPRAZOLE 20 MG CAPSULE.DR GT SCH (05:56)
[2020-04-23] MEDS: PROTEIN SUPPLEMENT (PROSTAT) 30 ML LIQUID GT SCH ×3 (05:56→21:39)
[2020-04-23 07:50] VITALS: BP 118/52
[2020-04-23] MEDS: ACETAMINOPHEN 650 MG/20.3 ML LIQUID UDC GT SCH (08:30)
[2020-04-23] MEDS: ACIDOPHILUS/BULGARICUS CHEW TAB GT SCH ×2 (08:30→21:39)
[2020-04-23] MEDS: SERTRALINE 25 MG GT SCH (08:31)
[2020-04-23] MEDS: THERAHONEY GEL 1.5 OZ TUBE TOP SCH ×2 (08:31→21:39)
[2020-04-23] MEDS: COD LIVER OIL/ZINC OXIDE OINT 113 GM TUBE TP SCH ×2 (08:31→21:39)
[2020-04-23] MEDS: SODIUM HYPOCHLORITE 0.125% (QUARTER STRENGTH) 473 ML BOTTLE TP SCH ×2 (08:31→21:39)
[2020-04-23] MEDS: HYDROGEN PEROXIDE 3% 118 ML BOTTLE TP SCH ×2 (09:22→21:53)
[2020-04-23 20:00] VITALS: BP 101/46
[2020-04-23] MEDS: ASCORBIC ACID 500 MG TABLET GT SCH (21:39)
[2020-04-23] MEDS: MULTIVIT, IRON, MIN NO. 8, FA TABLET GT SCH (21:39)
[2020-04-23] MEDS: ESTROGENS,CONJU VAGINAL CREAM 42.5 GM TUBE VG SCH (21:39)
[2020-04-23] MEDS: SIMVASTATIN 10 MG TABLET GT SCH (21:39)
[2020-04-23] MEDS: TEMAZEPAM 7.5 MG CAPSULE GT PRN (22:09)
[2020-04-24] MEDS: BACLOFEN 10 MG TABLET GT SCH ×4 (00:42→17:35)
[2020-04-24] MEDS: IPRATROPIUM BROMIDE 0.5 MG/2.5 ML NEBU NEB SCH ×6 (03:05→23:20)
[2020-04-24] MEDS: ALBUTEROL SULFATE 2.5 MG/3 ML NEBU NEB SCH ×6 (03:05→23:20)
[2020-04-24] MEDS: JEVITY 1.2 1000 ML LIQUID GT PRN (03:36)
[2020-04-24] MEDS: OMEPRAZOLE 20 MG CAPSULE.DR GT SCH (05:27)
[2020-04-24] MEDS: ARGININE/GLUTAMINE/CALCIUM BMB 1 EACH POWD.PACK GT SCH ×2 (05:27→17:34)
[2020-04-24] MEDS: PROTEIN SUPPLEMENT (PROSTAT) 30 ML LIQUID GT SCH ×3 (05:27→21:30)
[2020-04-24 07:49] VITALS: BP_SYST 107; BP_SYST 97; BP_DIAS 48; BP_DIAS 62
[2020-04-24] MEDS: ACETAMINOPHEN 650 MG/20.3 ML LIQUID UDC GT SCH (08:36)
[2020-04-24] MEDS: ACIDOPHILUS/BULGARICUS CHEW TAB GT SCH ×2 (08:37→21:29)
[2020-04-24] MEDS: SERTRALINE 25 MG GT SCH (08:37)
[2020-04-24] MEDS: HYDROGEN PEROXIDE 3% 118 ML BOTTLE TP SCH ×2 (09:02→21:50)
[2020-04-24] MEDS: SODIUM HYPOCHLORITE 0.125% (QUARTER STRENGTH) 473 ML BOTTLE TP SCH ×2 (09:05→21:30)
[2020-04-24] MEDS: COD LIVER OIL/ZINC OXIDE OINT 113 GM TUBE TP SCH ×2 (09:05→21:30)
[2020-04-24] MEDS: THERAHONEY GEL 1.5 OZ TUBE TOP SCH ×2 (09:05→21:29)
--- NOTE | 2020-04-24 10:34 | NUR ---
DOROTHY received a voicemail message from patient's daughter Ludmila. DOROTHY called Ludmila, , but was not able to establish contact. DOROTHY left Ludmila a voicemail message, asking Ludmila to call this DOROTHY back.
--- NOTE | 2020-04-24 12:22 | NUR ---
Patient's daughter Ludmila called this SW back, in response to the voicemail this SW had left Ludmila earlier today. Ludmila stated that she was working on patient's residency renewal and needed information about patient's Medi-nancy number. SW provided this information. Ludmila stated that she will be submitted the residency renewal soon and would let this SW know if she needs any additional information.
[2020-04-24] MEDS: ACETAMINOPHEN 650 MG/20 ML UDC- SA PATIENTS-PAIN ONLY GT PRN (17:37)
[2020-04-24] MEDS: MULTIVIT, IRON, MIN NO. 8, FA TABLET GT SCH (21:29)
[2020-04-24] MEDS: ASCORBIC ACID 500 MG TABLET GT SCH (21:29)
[2020-04-24] MEDS: SIMVASTATIN 10 MG TABLET GT SCH (21:29)
[2020-04-24] MEDS: ESTROGENS,CONJU VAGINAL CREAM 42.5 GM TUBE VG SCH (21:30)
[2020-04-24] MEDS: TEMAZEPAM 7.5 MG CAPSULE GT PRN (22:06)
[2020-04-24 22:43] VITALS: BP 113/48
[2020-04-25] MEDS: BACLOFEN 10 MG TABLET GT SCH ×5 (00:28→23:22)
[2020-04-25] MEDS: IPRATROPIUM BROMIDE 0.5 MG/2.5 ML NEBU NEB SCH ×6 (03:35→22:41)
[2020-04-25] MEDS: ALBUTEROL SULFATE 2.5 MG/3 ML NEBU NEB SCH ×6 (03:35→22:41)
[2020-04-25] MEDS: ARGININE/GLUTAMINE/CALCIUM BMB 1 EACH POWD.PACK GT SCH ×2 (05:38→17:12)
[2020-04-25] MEDS: OMEPRAZOLE 20 MG CAPSULE.DR GT SCH (05:38)
[2020-04-25] MEDS: PROTEIN SUPPLEMENT (PROSTAT) 30 ML LIQUID GT SCH ×3 (05:38→21:30)
[2020-04-25 07:30] VITALS: BP 104/53
[2020-04-25] MEDS: HYDROGEN PEROXIDE 3% 118 ML BOTTLE TP SCH ×2 (09:06→21:40)
[2020-04-25] MEDS: ACETAMINOPHEN 650 MG/20.3 ML LIQUID UDC GT SCH (09:16)
[2020-04-25] MEDS: ACIDOPHILUS/BULGARICUS CHEW TAB GT SCH ×2 (09:16→21:29)
[2020-04-25] MEDS: SERTRALINE 25 MG GT SCH (09:16)
[2020-04-25] MEDS: THERAHONEY GEL 1.5 OZ TUBE TOP SCH ×2 (09:17→21:29)
[2020-04-25] MEDS: COD LIVER OIL/ZINC OXIDE OINT 113 GM TUBE TP SCH ×2 (09:17→21:29)
[2020-04-25] MEDS: SODIUM HYPOCHLORITE 0.125% (QUARTER STRENGTH) 473 ML BOTTLE TP SCH ×2 (09:17→21:29)
[2020-04-25] MEDS: JEVITY 1.2 1000 ML LIQUID GT PRN (12:19)
[2020-04-25] MEDS: ACETAMINOPHEN 650 MG/20 ML UDC- SA PATIENTS-PAIN ONLY GT PRN (21:00)
[2020-04-25] MEDS: SIMVASTATIN 10 MG TABLET GT SCH (21:29)
[2020-04-25] MEDS: ASCORBIC ACID 500 MG TABLET GT SCH (21:29)
[2020-04-25] MEDS: MULTIVIT, IRON, MIN NO. 8, FA TABLET GT SCH (21:29)
[2020-04-25] MEDS: ESTROGENS,CONJU VAGINAL CREAM 42.5 GM TUBE VG SCH (21:29)
[2020-04-25 22:25] VITALS: BP 120/54
[2020-04-26] MEDS: ALBUTEROL SULFATE 2.5 MG/3 ML NEBU NEB SCH ×6 (02:46→23:20)
[2020-04-26] MEDS: IPRATROPIUM BROMIDE 0.5 MG/2.5 ML NEBU NEB SCH ×6 (02:46→23:20)
[2020-04-26] MEDS: OMEPRAZOLE 20 MG CAPSULE.DR GT SCH (05:18)
[2020-04-26] MEDS: ARGININE/GLUTAMINE/CALCIUM BMB 1 EACH POWD.PACK GT SCH ×2 (05:18→17:28)
[2020-04-26] MEDS: BACLOFEN 10 MG TABLET GT SCH ×3 (05:18→17:28)
[2020-04-26] MEDS: PROTEIN SUPPLEMENT (PROSTAT) 30 ML LIQUID GT SCH ×3 (05:18→21:13)
[2020-04-26 07:52] VITALS: BP 95/51
[2020-04-26] MEDS: ACETAMINOPHEN 650 MG/20.3 ML LIQUID UDC GT SCH (09:17)
[2020-04-26] MEDS: ACIDOPHILUS/BULGARICUS CHEW TAB GT SCH ×2 (09:17→21:12)
[2020-04-26] MEDS: SODIUM HYPOCHLORITE 0.125% (QUARTER STRENGTH) 473 ML BOTTLE TP SCH ×2 (09:18→21:13)
[2020-04-26] MEDS: THERAHONEY GEL 1.5 OZ TUBE TOP SCH ×2 (09:18→21:12)
[2020-04-26] MEDS: COD LIVER OIL/ZINC OXIDE OINT 113 GM TUBE TP SCH ×2 (09:18→21:13)
[2020-04-26] MEDS: SERTRALINE 25 MG GT SCH (09:18)
[2020-04-26] MEDS: HYDROGEN PEROXIDE 3% 118 ML BOTTLE TP SCH ×2 (09:21→20:42)
[2020-04-26] MEDS: JEVITY 1.2 1000 ML LIQUID GT PRN (11:58)
[2020-04-26 20:33] VITALS: BP 118/54
[2020-04-26] MEDS: SIMVASTATIN 10 MG TABLET GT SCH (21:12)
[2020-04-26] MEDS: ASCORBIC ACID 500 MG TABLET GT SCH (21:12)
[2020-04-26] MEDS: MULTIVIT, IRON, MIN NO. 8, FA TABLET GT SCH (21:12)
[2020-04-26] MEDS: ESTROGENS,CONJU VAGINAL CREAM 42.5 GM TUBE VG SCH (21:13)
[2020-04-27] MEDS: BACLOFEN 10 MG TABLET GT SCH ×4 (00:42→17:34)
[2020-04-27] MEDS: IPRATROPIUM BROMIDE 0.5 MG/2.5 ML NEBU NEB SCH ×6 (03:00→22:36)
[2020-04-27] MEDS: ALBUTEROL SULFATE 2.5 MG/3 ML NEBU NEB SCH ×6 (03:00→22:36)
[2020-04-27] MEDS: ARGININE/GLUTAMINE/CALCIUM BMB 1 EACH POWD.PACK GT SCH ×2 (05:48→17:34)
[2020-04-27] MEDS: OMEPRAZOLE 20 MG CAPSULE.DR GT SCH (05:48)
[2020-04-27] MEDS: PROTEIN SUPPLEMENT (PROSTAT) 30 ML LIQUID GT SCH ×3 (05:48→22:15)
[2020-04-27] MEDS: JEVITY 1.2 1000 ML LIQUID GT PRN ×2 (07:06→17:34)
[2020-04-27 08:00] VITALS: BP 109/67
[2020-04-27] MEDS: HYDROGEN PEROXIDE 3% 118 ML BOTTLE TP SCH ×2 (08:21→19:23)
[2020-04-27] MEDS: ACIDOPHILUS/BULGARICUS CHEW TAB GT SCH ×2 (08:41→20:54)
[2020-04-27] MEDS: ACETAMINOPHEN 650 MG/20.3 ML LIQUID UDC GT SCH (08:41)
[2020-04-27] MEDS: SERTRALINE 25 MG GT SCH (08:42)
[2020-04-27] MEDS: THERAHONEY GEL 1.5 OZ TUBE TOP SCH ×2 (09:27→20:54)
[2020-04-27] MEDS: SODIUM HYPOCHLORITE 0.125% (QUARTER STRENGTH) 473 ML BOTTLE TP SCH ×2 (09:28→20:55)
[2020-04-27] MEDS: COD LIVER OIL/ZINC OXIDE OINT 113 GM TUBE TP SCH ×2 (09:28→20:55)
[2020-04-27 20:23] VITALS: BP 122/51
[2020-04-27] MEDS: MULTIVIT, IRON, MIN NO. 8, FA TABLET GT SCH (20:54)
[2020-04-27] MEDS: ASCORBIC ACID 500 MG TABLET GT SCH (20:54)
[2020-04-27] MEDS: SIMVASTATIN 10 MG TABLET GT SCH (20:54)
[2020-04-27] MEDS: ESTROGENS,CONJU VAGINAL CREAM 42.5 GM TUBE VG SCH (20:55)
[2020-04-28] MEDS: BACLOFEN 10 MG TABLET GT SCH ×5 (00:29→23:27)
[2020-04-28] MEDS: IPRATROPIUM BROMIDE 0.5 MG/2.5 ML NEBU NEB SCH ×6 (02:30→23:10)
[2020-04-28] MEDS: ALBUTEROL SULFATE 2.5 MG/3 ML NEBU NEB SCH ×6 (02:30→23:10)
[2020-04-28] MEDS: ARGININE/GLUTAMINE/CALCIUM BMB 1 EACH POWD.PACK GT SCH ×2 (06:17→17:04)
[2020-04-28] MEDS: OMEPRAZOLE 20 MG CAPSULE.DR GT SCH (06:18)
[2020-04-28] MEDS: PROTEIN SUPPLEMENT (PROSTAT) 30 ML LIQUID GT SCH ×3 (06:18→21:39)
[2020-04-28 07:48] VITALS: BP 103/44
[2020-04-28] MEDS: ACIDOPHILUS/BULGARICUS CHEW TAB GT SCH ×2 (08:39→21:37)
[2020-04-28] MEDS: SERTRALINE 25 MG GT SCH (08:39)
[2020-04-28] MEDS: ACETAMINOPHEN 650 MG/20.3 ML LIQUID UDC GT SCH (08:39)
[2020-04-28] MEDS: SODIUM HYPOCHLORITE 0.125% (QUARTER STRENGTH) 473 ML BOTTLE TP SCH ×2 (09:30→21:39)
[2020-04-28] MEDS: COD LIVER OIL/ZINC OXIDE OINT 113 GM TUBE TP SCH ×2 (09:30→21:39)
[2020-04-28] MEDS: THERAHONEY GEL 1.5 OZ TUBE TOP SCH ×2 (09:30→21:39)
[2020-04-28] MEDS: HYDROGEN PEROXIDE 3% 118 ML BOTTLE TP SCH ×2 (09:41→20:29)
[2020-04-28] MEDS: ACETAMINOPHEN 650 MG/20 ML UDC- SA PATIENTS-PAIN ONLY GT PRN (15:58)
[2020-04-28] MEDS: JEVITY 1.2 1000 ML LIQUID GT PRN (17:05)
[2020-04-28 20:19] VITALS: BP 140/86
[2020-04-28] MEDS: ASCORBIC ACID 500 MG TABLET GT SCH (21:37)
[2020-04-28] MEDS: MULTIVIT, IRON, MIN NO. 8, FA TABLET GT SCH (21:37)
[2020-04-28] MEDS: SIMVASTATIN 10 MG TABLET GT SCH (21:38)
[2020-04-28] MEDS: ESTROGENS,CONJU VAGINAL CREAM 42.5 GM TUBE VG SCH (21:39)
[2020-04-29] MEDS: ALBUTEROL SULFATE 2.5 MG/3 ML NEBU NEB SCH ×6 (03:01→22:45)
[2020-04-29] MEDS: IPRATROPIUM BROMIDE 0.5 MG/2.5 ML NEBU NEB SCH ×6 (03:01→22:45)
[2020-04-29] MEDS: OMEPRAZOLE 20 MG CAPSULE.DR GT SCH (05:26)
[2020-04-29] MEDS: PROTEIN SUPPLEMENT (PROSTAT) 30 ML LIQUID GT SCH ×3 (05:26→21:42)
[2020-04-29] MEDS: ARGININE/GLUTAMINE/CALCIUM BMB 1 EACH POWD.PACK GT SCH ×2 (05:26→17:45)
[2020-04-29] MEDS: BACLOFEN 10 MG TABLET GT SCH ×3 (05:26→17:45)
[2020-04-29 07:48] VITALS: BP 124/60
[2020-04-29] MEDS: ACETAMINOPHEN 650 MG/20.3 ML LIQUID UDC GT SCH (08:38)
[2020-04-29] MEDS: ACIDOPHILUS/BULGARICUS CHEW TAB GT SCH ×2 (08:40→21:39)
[2020-04-29] MEDS: SERTRALINE 25 MG GT SCH (08:40)
[2020-04-29] MEDS: SODIUM HYPOCHLORITE 0.125% (QUARTER STRENGTH) 473 ML BOTTLE TP SCH ×2 (09:10→21:42)
[2020-04-29] MEDS: THERAHONEY GEL 1.5 OZ TUBE TOP SCH ×2 (09:10→21:42)
[2020-04-29] MEDS: COD LIVER OIL/ZINC OXIDE OINT 113 GM TUBE TP SCH ×2 (09:15→21:42)
[2020-04-29] MEDS: HYDROGEN PEROXIDE 3% 118 ML BOTTLE TP SCH ×2 (09:37→21:03)
[2020-04-29] MEDS: JEVITY 1.2 1000 ML LIQUID GT PRN (17:46)
--- NOTE | 2020-04-29 19:09 | NUR ---
Seen and examined By Dr Sylvester,no new orders noted
[2020-04-29 20:00] VITALS: BP 110/59
[2020-04-29] MEDS: MULTIVIT, IRON, MIN NO. 8, FA TABLET GT SCH (21:39)
[2020-04-29] MEDS: ASCORBIC ACID 500 MG TABLET GT SCH (21:40)
[2020-04-29] MEDS: SIMVASTATIN 10 MG TABLET GT SCH (21:40)
[2020-04-29] MEDS: ESTROGENS,CONJU VAGINAL CREAM 42.5 GM TUBE VG SCH (21:42)
[2020-04-30] MEDS: BACLOFEN 10 MG TABLET GT SCH ×4 (00:12→17:12)
[2020-04-30] MEDS: IPRATROPIUM BROMIDE 0.5 MG/2.5 ML NEBU NEB SCH ×6 (02:46→22:40)
[2020-04-30] MEDS: ALBUTEROL SULFATE 2.5 MG/3 ML NEBU NEB SCH ×6 (02:46→22:40)
[2020-04-30] MEDS: ARGININE/GLUTAMINE/CALCIUM BMB 1 EACH POWD.PACK GT SCH ×2 (05:34→17:12)
[2020-04-30] MEDS: OMEPRAZOLE 20 MG CAPSULE.DR GT SCH (05:34)
[2020-04-30] MEDS: PROTEIN SUPPLEMENT (PROSTAT) 30 ML LIQUID GT SCH ×3 (05:34→21:39)
[2020-04-30 07:43] VITALS: BP 98/54
[2020-04-30] MEDS: ACIDOPHILUS/BULGARICUS CHEW TAB GT SCH ×2 (09:05→21:38)
[2020-04-30] MEDS: ACETAMINOPHEN 650 MG/20.3 ML LIQUID UDC GT SCH (09:05)
[2020-04-30] MEDS: SODIUM HYPOCHLORITE 0.125% (QUARTER STRENGTH) 473 ML BOTTLE TP SCH ×2 (09:05→21:38)
[2020-04-30] MEDS: THERAHONEY GEL 1.5 OZ TUBE TOP SCH ×2 (09:05→21:38)
[2020-04-30] MEDS: SERTRALINE 25 MG GT SCH (09:05)
[2020-04-30] MEDS: COD LIVER OIL/ZINC OXIDE OINT 113 GM TUBE TP SCH ×2 (09:06→21:38)
[2020-04-30] MEDS: HYDROGEN PEROXIDE 3% 118 ML BOTTLE TP SCH ×2 (09:40→21:29)
[2020-04-30] MEDS: JEVITY 1.2 1000 ML LIQUID GT PRN (17:12)
[2020-04-30 20:00] VITALS: BP 111/59
[2020-04-30] MEDS: ESTROGENS,CONJU VAGINAL CREAM 42.5 GM TUBE VG SCH (21:38)
[2020-04-30] MEDS: SIMVASTATIN 10 MG TABLET GT SCH (21:38)
[2020-04-30] MEDS: MULTIVIT, IRON, MIN NO. 8, FA TABLET GT SCH (21:38)
[2020-04-30] MEDS: ASCORBIC ACID 500 MG TABLET GT SCH (21:38)
[2020-05-01] MEDS: BACLOFEN 10 MG TABLET GT SCH ×5 (00:42→23:12)
[2020-05-01] MEDS: ALBUTEROL SULFATE 2.5 MG/3 ML NEBU NEB SCH ×6 (02:30→23:07)
[2020-05-01] MEDS: IPRATROPIUM BROMIDE 0.5 MG/2.5 ML NEBU NEB SCH ×6 (02:30→23:07)
[2020-05-01] MEDS: ARGININE/GLUTAMINE/CALCIUM BMB 1 EACH POWD.PACK GT SCH ×2 (05:36→18:01)
[2020-05-01] MEDS: OMEPRAZOLE 20 MG CAPSULE.DR GT SCH (05:36)
[2020-05-01] MEDS: PROTEIN SUPPLEMENT (PROSTAT) 30 ML LIQUID GT SCH ×3 (05:36→21:30)
[2020-05-01] MEDS: HYDROGEN PEROXIDE 3% 118 ML BOTTLE TP SCH ×2 (07:50→21:45)
[2020-05-01 07:56] VITALS: BP 113/73
[2020-05-01] MEDS: THERAHONEY GEL 1.5 OZ TUBE TOP SCH ×2 (08:05→21:30)
[2020-05-01] MEDS: ACETAMINOPHEN 650 MG/20.3 ML LIQUID UDC GT SCH (08:05)
[2020-05-01] MEDS: COD LIVER OIL/ZINC OXIDE OINT 113 GM TUBE TP SCH ×2 (08:05→21:30)
[2020-05-01] MEDS: ACIDOPHILUS/BULGARICUS CHEW TAB GT SCH ×2 (08:05→21:30)
[2020-05-01] MEDS: SERTRALINE 25 MG GT SCH (08:05)
[2020-05-01] MEDS: SODIUM HYPOCHLORITE 0.125% (QUARTER STRENGTH) 473 ML BOTTLE TP SCH ×2 (08:05→21:30)
[2020-05-01] MEDS: JEVITY 1.2 1000 ML LIQUID GT PRN (18:02)
[2020-05-01] MEDS: ACETAMINOPHEN 650 MG/20 ML UDC- SA PATIENTS-PAIN ONLY GT PRN (18:32)
[2020-05-01 19:36] VITALS: BP 111/43
[2020-05-01] MEDS: TEMAZEPAM 7.5 MG CAPSULE GT PRN (21:30)
[2020-05-01] MEDS: SIMVASTATIN 10 MG TABLET GT SCH (21:30)
[2020-05-01] MEDS: ESTROGENS,CONJU VAGINAL CREAM 42.5 GM TUBE VG SCH (21:30)
[2020-05-01] MEDS: MULTIVIT, IRON, MIN NO. 8, FA TABLET GT SCH (21:30)
[2020-05-01] MEDS: ASCORBIC ACID 500 MG TABLET GT SCH (21:30)
[2020-05-02] MEDS: IPRATROPIUM BROMIDE 0.5 MG/2.5 ML NEBU NEB SCH ×6 (03:01→23:27)
[2020-05-02] MEDS: ALBUTEROL SULFATE 2.5 MG/3 ML NEBU NEB SCH ×6 (03:02→23:27)
[2020-05-02] MEDS: PROTEIN SUPPLEMENT (PROSTAT) 30 ML LIQUID GT SCH ×3 (05:02→21:06)
[2020-05-02] MEDS: OMEPRAZOLE 20 MG CAPSULE.DR GT SCH (05:02)
[2020-05-02] MEDS: ARGININE/GLUTAMINE/CALCIUM BMB 1 EACH POWD.PACK GT SCH ×2 (05:02→17:22)
[2020-05-02] MEDS: BACLOFEN 10 MG TABLET GT SCH ×4 (05:02→23:27)
[2020-05-02] MEDS: HYDROGEN PEROXIDE 3% 118 ML BOTTLE TP SCH ×2 (07:40→21:45)
[2020-05-02 07:49] VITALS: BP 101/57
[2020-05-02] MEDS: COD LIVER OIL/ZINC OXIDE OINT 113 GM TUBE TP SCH ×2 (09:20→21:06)
[2020-05-02] MEDS: SODIUM HYPOCHLORITE 0.125% (QUARTER STRENGTH) 473 ML BOTTLE TP SCH ×2 (09:20→21:06)
[2020-05-02] MEDS: SERTRALINE 25 MG GT SCH (09:20)
[2020-05-02] MEDS: THERAHONEY GEL 1.5 OZ TUBE TOP SCH ×2 (09:20→21:06)
[2020-05-02] MEDS: ACIDOPHILUS/BULGARICUS CHEW TAB GT SCH ×2 (09:20→21:05)
[2020-05-02] MEDS: ACETAMINOPHEN 650 MG/20.3 ML LIQUID UDC GT SCH (09:20)
--- NOTE | 2020-05-02 13:45 | NUR ---
zoom provided for patient with daughter.
[2020-05-02 19:20] VITALS: BP 106/46
[2020-05-02] MEDS: SIMVASTATIN 10 MG TABLET GT SCH (21:05)
[2020-05-02] MEDS: ASCORBIC ACID 500 MG TABLET GT SCH (21:05)
[2020-05-02] MEDS: MULTIVIT, IRON, MIN NO. 8, FA TABLET GT SCH (21:05)
[2020-05-02] MEDS: ESTROGENS,CONJU VAGINAL CREAM 42.5 GM TUBE VG SCH (21:06)
[2020-05-02] MEDS: TEMAZEPAM 7.5 MG CAPSULE GT PRN (21:45)
[2020-05-03] MEDS: IPRATROPIUM BROMIDE 0.5 MG/2.5 ML NEBU NEB SCH ×6 (03:11→23:04)
[2020-05-03] MEDS: ALBUTEROL SULFATE 2.5 MG/3 ML NEBU NEB SCH ×6 (03:11→23:05)
[2020-05-03] MEDS: OMEPRAZOLE 20 MG CAPSULE.DR GT SCH (05:12)
[2020-05-03] MEDS: ARGININE/GLUTAMINE/CALCIUM BMB 1 EACH POWD.PACK GT SCH ×2 (05:12→17:02)
[2020-05-03] MEDS: PROTEIN SUPPLEMENT (PROSTAT) 30 ML LIQUID GT SCH ×3 (05:12→21:13)
[2020-05-03] MEDS: BACLOFEN 10 MG TABLET GT SCH ×4 (05:12→23:16)
[2020-05-03 07:50] VITALS: BP 93/60
[2020-05-03] MEDS: ACETAMINOPHEN 650 MG/20.3 ML LIQUID UDC GT SCH (09:06)
[2020-05-03] MEDS: SODIUM HYPOCHLORITE 0.125% (QUARTER STRENGTH) 473 ML BOTTLE TP SCH ×2 (09:07→21:13)
[2020-05-03] MEDS: ACIDOPHILUS/BULGARICUS CHEW TAB GT SCH ×2 (09:07→21:13)
[2020-05-03] MEDS: SERTRALINE 25 MG GT SCH (09:07)
[2020-05-03] MEDS: COD LIVER OIL/ZINC OXIDE OINT 113 GM TUBE TP SCH ×2 (09:07→21:13)
[2020-05-03] MEDS: THERAHONEY GEL 1.5 OZ TUBE TOP SCH ×2 (09:07→21:13)
[2020-05-03] MEDS: HYDROGEN PEROXIDE 3% 118 ML BOTTLE TP SCH ×2 (09:55→21:04)
--- NOTE | 2020-05-03 12:14 | NUR ---
PT'S DTR. RAKEL WAS AWARE OF COVID [address] CALDWELL PER [facility] REQUIREMENT. AND IN AGREEMENT.
[2020-05-03 19:40] VITALS: BP 115/53
[2020-05-03] MEDS: ASCORBIC ACID 500 MG TABLET GT SCH (21:13)
[2020-05-03] MEDS: ESTROGENS,CONJU VAGINAL CREAM 42.5 GM TUBE VG SCH (21:13)
[2020-05-03] MEDS: SIMVASTATIN 10 MG TABLET GT SCH (21:13)
[2020-05-03] MEDS: MULTIVIT, IRON, MIN NO. 8, FA TABLET GT SCH (21:13)
[2020-05-04] MEDS: ALBUTEROL SULFATE 2.5 MG/3 ML NEBU NEB SCH ×6 (02:57→23:10)
[2020-05-04] MEDS: IPRATROPIUM BROMIDE 0.5 MG/2.5 ML NEBU NEB SCH ×6 (02:57→23:10)
[2020-05-04] MEDS: PROTEIN SUPPLEMENT (PROSTAT) 30 ML LIQUID GT SCH ×3 (05:08→21:50)
[2020-05-04] MEDS: OMEPRAZOLE 20 MG CAPSULE.DR GT SCH (05:08)
[2020-05-04] MEDS: ARGININE/GLUTAMINE/CALCIUM BMB 1 EACH POWD.PACK GT SCH ×2 (05:08→17:11)
[2020-05-04] MEDS: BACLOFEN 10 MG TABLET GT SCH ×3 (05:08→17:11)
[2020-05-04 07:40] VITALS: BP 99/50
[2020-05-04 07:42] VITALS: BP 99/50
[2020-05-04] MEDS: ACETAMINOPHEN 650 MG/20.3 ML LIQUID UDC GT SCH (08:50)
[2020-05-04] MEDS: THERAHONEY GEL 1.5 OZ TUBE TOP SCH ×2 (08:50→21:50)
[2020-05-04] MEDS: ACIDOPHILUS/BULGARICUS CHEW TAB GT SCH ×2 (08:50→21:50)
[2020-05-04] MEDS: SERTRALINE 25 MG GT SCH (08:50)
[2020-05-04] MEDS: COD LIVER OIL/ZINC OXIDE OINT 113 GM TUBE TP SCH ×2 (08:51→21:50)
[2020-05-04] MEDS: SODIUM HYPOCHLORITE 0.125% (QUARTER STRENGTH) 473 ML BOTTLE TP SCH ×2 (08:51→21:50)
[2020-05-04] MEDS: HYDROGEN PEROXIDE 3% 118 ML BOTTLE TP SCH ×2 (09:45→21:29)
--- NOTE | 2020-05-04 16:36 | NUR ---
SW received a voicemail message from patient's daughter Ludmila, . DOROTHY called Ludmila back, but was not able to connect with her. DOROTHY left Ludmila a voicemail message, asking Ludmila to call this SW back.
--- NOTE | 2020-05-04 16:51 | NUR ---
DOROTHY received a call back from patient's daughter Ludmila, . Ludmila inquired about the current COVID-19 visitation restrictions, if there were any changes to the restrictions, and if patient's other daughter Agustina could visit the patient. DOROTHY stated that the visitation restrictions continue to remain in place, in order to ensure the safety of the patients. Ludmila expressed understanding. DOROTHY reminded Ludmila to have patient's daughter Agustina utilize video conferencing to visit with the patient, and Ludmila stated that she will remind Agustina. Ludmila also inquired about how to obtain passport-like photos of the patient, since she needs these pictures for patient's residency application renewal. DOROTHY stated that DOROTHY will look into this request and provide Ludmila would further follow-up. Ludmila expressed agreement. DOROTHY to follow-up with Ludmila regarding the request for passport-like photos.
[2020-05-04] MEDS: JEVITY 1.2 1000 ML LIQUID GT PRN (17:20)
[2020-05-04 20:00] VITALS: BP 108/64
[2020-05-04] MEDS: ASCORBIC ACID 500 MG TABLET GT SCH (21:50)
[2020-05-04] MEDS: SIMVASTATIN 10 MG TABLET GT SCH (21:50)
[2020-05-04] MEDS: MULTIVIT, IRON, MIN NO. 8, FA TABLET GT SCH (21:50)
[2020-05-04] MEDS: ESTROGENS,CONJU VAGINAL CREAM 42.5 GM TUBE VG SCH (21:50)
[2020-05-05] MEDS: BACLOFEN 10 MG TABLET GT SCH ×4 (01:00→17:42)
[2020-05-05] MEDS: ALBUTEROL SULFATE 2.5 MG/3 ML NEBU NEB SCH ×6 (03:01→22:54)
[2020-05-05] MEDS: IPRATROPIUM BROMIDE 0.5 MG/2.5 ML NEBU NEB SCH ×6 (03:01→22:54)
[2020-05-05] MEDS: OMEPRAZOLE 20 MG CAPSULE.DR GT SCH (05:28)
[2020-05-05] MEDS: ARGININE/GLUTAMINE/CALCIUM BMB 1 EACH POWD.PACK GT SCH ×2 (05:28→17:42)
[2020-05-05] MEDS: PROTEIN SUPPLEMENT (PROSTAT) 30 ML LIQUID GT SCH ×3 (05:28→21:29)
[2020-05-05] MEDS: HYDROGEN PEROXIDE 3% 118 ML BOTTLE TP SCH ×2 (07:24→20:50)
[2020-05-05 07:39] VITALS: BP 111/57
[2020-05-05] MEDS: SERTRALINE 25 MG GT SCH (08:00)
[2020-05-05] MEDS: ACIDOPHILUS/BULGARICUS CHEW TAB GT SCH ×2 (08:00→21:28)
[2020-05-05] MEDS: ACETAMINOPHEN 650 MG/20.3 ML LIQUID UDC GT SCH (08:00)
[2020-05-05] MEDS: THERAHONEY GEL 1.5 OZ TUBE TOP SCH ×2 (09:00→21:28)
[2020-05-05] MEDS: SODIUM HYPOCHLORITE 0.125% (QUARTER STRENGTH) 473 ML BOTTLE TP SCH ×2 (09:01→21:29)
[2020-05-05] MEDS: COD LIVER OIL/ZINC OXIDE OINT 113 GM TUBE TP SCH ×2 (09:01→21:29)
--- NOTE | 2020-05-05 11:04 | NUR ---
PT'S DTR. RAKEL WAS AWARE OF COVID 19 TEST NEGATIVE.
[2020-05-05 19:52] VITALS: BP 107/52
[2020-05-05] MEDS: ASCORBIC ACID 500 MG TABLET GT SCH (21:28)
[2020-05-05] MEDS: SIMVASTATIN 10 MG TABLET GT SCH (21:28)
[2020-05-05] MEDS: MULTIVIT, IRON, MIN NO. 8, FA TABLET GT SCH (21:28)
[2020-05-05] MEDS: ESTROGENS,CONJU VAGINAL CREAM 42.5 GM TUBE VG SCH (21:29)
[2020-05-05] MEDS: JEVITY 1.2 1000 ML LIQUID GT PRN (22:00)
[2020-05-06] MEDS: IPRATROPIUM BROMIDE 0.5 MG/2.5 ML NEBU NEB SCH ×6 (02:58→22:40)
[2020-05-06] MEDS: ALBUTEROL SULFATE 2.5 MG/3 ML NEBU NEB SCH ×6 (02:58→22:40)
[2020-05-06] MEDS: OMEPRAZOLE 20 MG CAPSULE.DR GT SCH (05:33)
[2020-05-06] MEDS: BACLOFEN 10 MG TABLET GT SCH ×4 (05:33→17:43)
[2020-05-06] MEDS: ARGININE/GLUTAMINE/CALCIUM BMB 1 EACH POWD.PACK GT SCH ×2 (05:33→17:43)
[2020-05-06] MEDS: PROTEIN SUPPLEMENT (PROSTAT) 30 ML LIQUID GT SCH ×3 (05:34→21:31)
[2020-05-06 07:43] VITALS: BP 113/44
[2020-05-06] MEDS: HYDROGEN PEROXIDE 3% 118 ML BOTTLE TP SCH ×2 (08:00→20:59)
[2020-05-06] MEDS: ACETAMINOPHEN 650 MG/20.3 ML LIQUID UDC GT SCH (09:06)
[2020-05-06] MEDS: SERTRALINE 25 MG GT SCH (09:06)
[2020-05-06] MEDS: ACIDOPHILUS/BULGARICUS CHEW TAB GT SCH ×2 (09:06→21:29)
[2020-05-06] MEDS: THERAHONEY GEL 1.5 OZ TUBE TOP SCH ×2 (10:00→21:30)
[2020-05-06] MEDS: SODIUM HYPOCHLORITE 0.125% (QUARTER STRENGTH) 473 ML BOTTLE TP SCH ×2 (10:00→21:30)
[2020-05-06] MEDS: COD LIVER OIL/ZINC OXIDE OINT 113 GM TUBE TP SCH ×2 (10:00→21:31)
[2020-05-06] MEDS: JEVITY 1.2 1000 ML LIQUID GT PRN (18:57)
[2020-05-06 19:57] VITALS: BP 114/70
[2020-05-06] MEDS: SIMVASTATIN 10 MG TABLET GT SCH (21:29)
[2020-05-06] MEDS: ASCORBIC ACID 500 MG TABLET GT SCH (21:29)
[2020-05-06] MEDS: MULTIVIT, IRON, MIN NO. 8, FA TABLET GT SCH (21:29)
[2020-05-06] MEDS: ESTROGENS,CONJU VAGINAL CREAM 42.5 GM TUBE VG SCH (21:31)
[2020-05-06] MEDS: TEMAZEPAM 7.5 MG CAPSULE GT PRN (22:00)
[2020-05-07] MEDS: BACLOFEN 10 MG TABLET GT SCH ×4 (00:19→17:19)
[2020-05-07] MEDS: ALBUTEROL SULFATE 2.5 MG/3 ML NEBU NEB SCH ×6 (03:11→23:15)
[2020-05-07] MEDS: IPRATROPIUM BROMIDE 0.5 MG/2.5 ML NEBU NEB SCH ×6 (03:11→23:15)
[2020-05-07] MEDS: OMEPRAZOLE 20 MG CAPSULE.DR GT SCH (05:40)
[2020-05-07] MEDS: ARGININE/GLUTAMINE/CALCIUM BMB 1 EACH POWD.PACK GT SCH ×2 (05:40→17:19)
[2020-05-07] MEDS: PROTEIN SUPPLEMENT (PROSTAT) 30 ML LIQUID GT SCH ×3 (05:40→21:17)
[2020-05-07 07:31] VITALS: BP 119/43
[2020-05-07] MEDS: HYDROGEN PEROXIDE 3% 118 ML BOTTLE TP SCH ×2 (08:05→21:53)
[2020-05-07] MEDS: ACETAMINOPHEN 650 MG/20.3 ML LIQUID UDC GT SCH (08:41)
[2020-05-07] MEDS: SODIUM HYPOCHLORITE 0.125% (QUARTER STRENGTH) 473 ML BOTTLE TP SCH (08:43)
[2020-05-07] MEDS: COD LIVER OIL/ZINC OXIDE OINT 113 GM TUBE TP SCH (08:43)
[2020-05-07] MEDS: ACIDOPHILUS/BULGARICUS CHEW TAB GT SCH ×2 (08:43→21:13)
[2020-05-07] MEDS: THERAHONEY GEL 1.5 OZ TUBE TOP SCH (08:43)
[2020-05-07] MEDS: SERTRALINE 25 MG GT SCH (08:43)
[2020-05-07 20:20] VITALS: BP 98/50
[2020-05-07] MEDS: MULTIVIT, IRON, MIN NO. 8, FA TABLET GT SCH (21:13)
[2020-05-07] MEDS: ASCORBIC ACID 500 MG TABLET GT SCH (21:13)
[2020-05-07] MEDS: SIMVASTATIN 10 MG TABLET GT SCH (21:16)
[2020-05-07] MEDS: ESTROGENS,CONJU VAGINAL CREAM 42.5 GM TUBE VG SCH (21:17)
[2020-05-07] MEDS: JEVITY 1.2 1000 ML LIQUID GT PRN (21:24)
[2020-05-07] MEDS: TEMAZEPAM 7.5 MG CAPSULE GT PRN (22:00)
--- NOTE | 2020-05-07 22:30 | NUR ---
Renewed treatment to sacral wound X 30 days then re-eval.
[2020-05-08] MEDS: BACLOFEN 10 MG TABLET GT SCH ×4 (00:25→18:03)
[2020-05-08] MEDS: IPRATROPIUM BROMIDE 0.5 MG/2.5 ML NEBU NEB SCH ×6 (03:02→23:00)
[2020-05-08] MEDS: ALBUTEROL SULFATE 2.5 MG/3 ML NEBU NEB SCH ×6 (03:02→23:00)
[2020-05-08] MEDS: OMEPRAZOLE 20 MG CAPSULE.DR GT SCH (05:25)
[2020-05-08] MEDS: PROTEIN SUPPLEMENT (PROSTAT) 30 ML LIQUID GT SCH ×3 (05:25→22:34)
[2020-05-08] MEDS: ARGININE/GLUTAMINE/CALCIUM BMB 1 EACH POWD.PACK GT SCH ×2 (05:25→18:03)
[2020-05-08 07:28] VITALS: BP 111/44
[2020-05-08] MEDS: ACETAMINOPHEN 650 MG/20.3 ML LIQUID UDC GT SCH (08:29)
[2020-05-08] MEDS: ACIDOPHILUS/BULGARICUS CHEW TAB GT SCH ×2 (08:31→21:06)
[2020-05-08] MEDS: SERTRALINE 25 MG GT SCH (08:31)
[2020-05-08] MEDS: COD LIVER OIL/ZINC OXIDE OINT 113 GM TUBE TOP SCH ×2 (09:35→21:11)
[2020-05-08] MEDS: THERAHONEY GEL 1.5 OZ TUBE TOP SCH ×2 (09:35→21:11)
[2020-05-08] MEDS: SODIUM HYPOCHLORITE 0.125% (QUARTER STRENGTH) 473 ML BOTTLE TP SCH ×2 (09:36→21:11)
[2020-05-08] MEDS: HYDROGEN PEROXIDE 3% 118 ML BOTTLE TP SCH ×2 (09:40→21:25)
[2020-05-08 19:30] VITALS: BP 106/53
[2020-05-08] MEDS: MULTIVIT, IRON, MIN NO. 8, FA TABLET GT SCH (21:09)
[2020-05-08] MEDS: ASCORBIC ACID 500 MG TABLET GT SCH (21:09)
[2020-05-08] MEDS: SIMVASTATIN 10 MG TABLET GT SCH (21:10)
[2020-05-08] MEDS: ESTROGENS,CONJU VAGINAL CREAM 42.5 GM TUBE VG SCH (21:11)
[2020-05-08] MEDS: JEVITY 1.2 1000 ML LIQUID GT PRN (23:44)
[2020-05-09] MEDS: TEMAZEPAM 7.5 MG CAPSULE GT PRN ×2 (00:02→20:54)
[2020-05-09] MEDS: BACLOFEN 10 MG TABLET GT SCH ×4 (00:04→17:38)
[2020-05-09] MEDS: IPRATROPIUM BROMIDE 0.5 MG/2.5 ML NEBU NEB SCH ×6 (03:02→23:07)
[2020-05-09] MEDS: ALBUTEROL SULFATE 2.5 MG/3 ML NEBU NEB SCH ×6 (03:02→23:07)
[2020-05-09] MEDS: PROTEIN SUPPLEMENT (PROSTAT) 30 ML LIQUID GT SCH ×3 (05:54→22:09)
[2020-05-09] MEDS: ARGININE/GLUTAMINE/CALCIUM BMB 1 EACH POWD.PACK GT SCH ×2 (05:54→17:38)
[2020-05-09] MEDS: OMEPRAZOLE 20 MG CAPSULE.DR GT SCH (05:54)
[2020-05-09 07:53] VITALS: BP 106/59
[2020-05-09] MEDS: ACETAMINOPHEN 650 MG/20.3 ML LIQUID UDC GT SCH (08:37)
[2020-05-09] MEDS: ACIDOPHILUS/BULGARICUS CHEW TAB GT SCH ×2 (08:38→20:29)
[2020-05-09] MEDS: SERTRALINE 25 MG GT SCH (08:38)
[2020-05-09] MEDS: COD LIVER OIL/ZINC OXIDE OINT 113 GM TUBE TOP SCH ×2 (08:39→20:30)
[2020-05-09] MEDS: SODIUM HYPOCHLORITE 0.125% (QUARTER STRENGTH) 473 ML BOTTLE TP SCH ×2 (09:20→20:30)
[2020-05-09] MEDS: THERAHONEY GEL 1.5 OZ TUBE TOP SCH ×2 (09:20→20:30)
[2020-05-09] MEDS: HYDROGEN PEROXIDE 3% 118 ML BOTTLE TP SCH ×2 (10:00→21:00)
[2020-05-09 19:28] VITALS: BP 118/57
[2020-05-09] MEDS: MULTIVIT, IRON, MIN NO. 8, FA TABLET GT SCH (20:29)
[2020-05-09] MEDS: ASCORBIC ACID 500 MG TABLET GT SCH (20:29)
[2020-05-09] MEDS: SIMVASTATIN 10 MG TABLET GT SCH (20:30)
[2020-05-09] MEDS: ACETAMINOPHEN 650 MG/20 ML UDC- SA PATIENTS-PAIN ONLY GT PRN (20:39)
[2020-05-09] MEDS: ESTROGENS,CONJU VAGINAL CREAM 42.5 GM TUBE VG SCH (20:54)
[2020-05-10] MEDS: BACLOFEN 10 MG TABLET GT SCH ×4 (00:03→17:39)
[2020-05-10] MEDS: JEVITY 1.2 1000 ML LIQUID GT PRN (02:03)
[2020-05-10] MEDS: IPRATROPIUM BROMIDE 0.5 MG/2.5 ML NEBU NEB SCH ×6 (03:00→22:41)
[2020-05-10] MEDS: ALBUTEROL SULFATE 2.5 MG/3 ML NEBU NEB SCH ×6 (03:00→22:41)
[2020-05-10] MEDS: OMEPRAZOLE 20 MG CAPSULE.DR GT SCH (05:16)
[2020-05-10] MEDS: ARGININE/GLUTAMINE/CALCIUM BMB 1 EACH POWD.PACK GT SCH ×2 (05:16→17:39)
[2020-05-10] MEDS: PROTEIN SUPPLEMENT (PROSTAT) 30 ML LIQUID GT SCH ×3 (05:16→21:35)
[2020-05-10] MEDS: HYDROGEN PEROXIDE 3% 118 ML BOTTLE TP SCH ×2 (07:42→21:31)
[2020-05-10 07:52] VITALS: BP 116/59
[2020-05-10] MEDS: SODIUM HYPOCHLORITE 0.125% (QUARTER STRENGTH) 473 ML BOTTLE TP SCH ×2 (08:44→21:35)
[2020-05-10] MEDS: THERAHONEY GEL 1.5 OZ TUBE TOP SCH ×2 (08:44→21:34)
[2020-05-10] MEDS: ACIDOPHILUS/BULGARICUS CHEW TAB GT SCH ×2 (08:44→21:33)
[2020-05-10] MEDS: SERTRALINE 25 MG GT SCH (08:44)
[2020-05-10] MEDS: COD LIVER OIL/ZINC OXIDE OINT 113 GM TUBE TOP SCH ×2 (08:44→21:34)
[2020-05-10] MEDS: ACETAMINOPHEN 650 MG/20.3 ML LIQUID UDC GT SCH (08:44)
[2020-05-10 19:29] VITALS: BP 110/51
[2020-05-10] MEDS: MULTIVIT, IRON, MIN NO. 8, FA TABLET GT SCH (21:33)
[2020-05-10] MEDS: ASCORBIC ACID 500 MG TABLET GT SCH (21:33)
[2020-05-10] MEDS: SIMVASTATIN 10 MG TABLET GT SCH (21:34)
[2020-05-10] MEDS: ESTROGENS,CONJU VAGINAL CREAM 42.5 GM TUBE VG SCH (21:35)
[2020-05-11] MEDS: BACLOFEN 10 MG TABLET GT SCH ×5 (00:41→23:30)
[2020-05-11] MEDS: ALBUTEROL SULFATE 2.5 MG/3 ML NEBU NEB SCH ×6 (02:45→22:40)
[2020-05-11] MEDS: IPRATROPIUM BROMIDE 0.5 MG/2.5 ML NEBU NEB SCH ×6 (02:45→22:40)
[2020-05-11] MEDS: JEVITY 1.2 1000 ML LIQUID GT PRN (04:31)
[2020-05-11] MEDS: PROTEIN SUPPLEMENT (PROSTAT) 30 ML LIQUID GT SCH ×3 (05:01→22:05)
[2020-05-11] MEDS: ARGININE/GLUTAMINE/CALCIUM BMB 1 EACH POWD.PACK GT SCH ×2 (05:01→17:45)
[2020-05-11] MEDS: OMEPRAZOLE 20 MG CAPSULE.DR GT SCH (05:01)
[2020-05-11 07:43] VITALS: BP 90/45
[2020-05-11] MEDS: COD LIVER OIL/ZINC OXIDE OINT 113 GM TUBE TOP SCH ×2 (08:34→20:56)
[2020-05-11] MEDS: ACETAMINOPHEN 650 MG/20.3 ML LIQUID UDC GT SCH (08:34)
[2020-05-11] MEDS: THERAHONEY GEL 1.5 OZ TUBE TOP SCH ×2 (08:34→20:56)
[2020-05-11] MEDS: ACIDOPHILUS/BULGARICUS CHEW TAB GT SCH ×2 (08:34→20:56)
[2020-05-11] MEDS: SERTRALINE 25 MG GT SCH (08:34)
[2020-05-11] MEDS: SODIUM HYPOCHLORITE 0.125% (QUARTER STRENGTH) 473 ML BOTTLE TP SCH ×2 (08:34→20:56)
[2020-05-11] MEDS: HYDROGEN PEROXIDE 3% 118 ML BOTTLE TP SCH ×2 (09:18→19:39)
[2020-05-11 20:20] VITALS: BP 93/44
[2020-05-11] MEDS: SIMVASTATIN 10 MG TABLET GT SCH (20:56)
[2020-05-11] MEDS: MULTIVIT, IRON, MIN NO. 8, FA TABLET GT SCH (20:56)
[2020-05-11] MEDS: ESTROGENS,CONJU VAGINAL CREAM 42.5 GM TUBE VG SCH (20:56)
[2020-05-11] MEDS: ASCORBIC ACID 500 MG TABLET GT SCH (20:56)
[2020-05-12] MEDS: ALBUTEROL SULFATE 2.5 MG/3 ML NEBU NEB SCH ×6 (02:35→23:12)
[2020-05-12] MEDS: IPRATROPIUM BROMIDE 0.5 MG/2.5 ML NEBU NEB SCH ×6 (02:35→23:12)
[2020-05-12] MEDS: PROTEIN SUPPLEMENT (PROSTAT) 30 ML LIQUID GT SCH ×3 (05:29→21:05)
[2020-05-12] MEDS: OMEPRAZOLE 20 MG CAPSULE.DR GT SCH (05:29)
[2020-05-12] MEDS: BACLOFEN 10 MG TABLET GT SCH ×4 (05:29→23:53)
[2020-05-12] MEDS: ARGININE/GLUTAMINE/CALCIUM BMB 1 EACH POWD.PACK GT SCH ×2 (05:29→17:51)
[2020-05-12 07:33] VITALS: BP 90/50
[2020-05-12] MEDS: ACIDOPHILUS/BULGARICUS CHEW TAB GT SCH ×2 (08:16→21:03)
[2020-05-12] MEDS: ACETAMINOPHEN 650 MG/20.3 ML LIQUID UDC GT SCH (08:16)
[2020-05-12] MEDS: COD LIVER OIL/ZINC OXIDE OINT 113 GM TUBE TOP SCH ×2 (08:17→21:03)
[2020-05-12] MEDS: THERAHONEY GEL 1.5 OZ TUBE TOP SCH ×2 (08:17→21:05)
[2020-05-12] MEDS: SODIUM HYPOCHLORITE 0.125% (QUARTER STRENGTH) 473 ML BOTTLE TP SCH ×2 (08:17→21:05)
[2020-05-12] MEDS: SERTRALINE 25 MG GT SCH (08:17)
[2020-05-12] MEDS: HYDROGEN PEROXIDE 3% 118 ML BOTTLE TP SCH ×2 (08:50→21:57)
--- NOTE | 2020-05-12 10:51 | NUR ---
RT WAS CALLED TO THE ROOM AT 0650 DUE TO DESATURATION OF 88 AND GASPING FOR AIR. ABG WAS DRAWN AND REPORT WAS GIVEN TO HUMBLE PALACIOS. PLACED PT ON VENT AND DC'D AEROSOL TRIAL. Addendum: 05/12/20 at 1057 by YAIR FULLER RT WRONG NOTE, STATEMENT WAS MEANT FOR ANOTHER PT.
[2020-05-12 20:06] VITALS: BP 113/57
[2020-05-12] MEDS: SIMVASTATIN 10 MG TABLET GT SCH (21:03)
[2020-05-12] MEDS: ASCORBIC ACID 500 MG TABLET GT SCH (21:03)
[2020-05-12] MEDS: MULTIVIT, IRON, MIN NO. 8, FA TABLET GT SCH (21:03)
[2020-05-12] MEDS: ESTROGENS,CONJU VAGINAL CREAM 42.5 GM TUBE VG SCH (21:05)
[2020-05-13] MEDS: IPRATROPIUM BROMIDE 0.5 MG/2.5 ML NEBU NEB SCH ×6 (03:00→22:42)
[2020-05-13] MEDS: ALBUTEROL SULFATE 2.5 MG/3 ML NEBU NEB SCH ×6 (03:01→22:42)
[2020-05-13] MEDS: JEVITY 1.2 1000 ML LIQUID GT PRN ×2 (04:17→04:18)
[2020-05-13] MEDS: OMEPRAZOLE 20 MG CAPSULE.DR GT SCH (05:56)
[2020-05-13] MEDS: BACLOFEN 10 MG TABLET GT SCH ×3 (05:56→18:37)
[2020-05-13] MEDS: ARGININE/GLUTAMINE/CALCIUM BMB 1 EACH POWD.PACK GT SCH ×2 (05:56→18:37)
[2020-05-13] MEDS: PROTEIN SUPPLEMENT (PROSTAT) 30 ML LIQUID GT SCH ×3 (05:56→21:24)
[2020-05-13 07:44] VITALS: BP 103/60
[2020-05-13] MEDS: HYDROGEN PEROXIDE 3% 118 ML BOTTLE TP SCH ×2 (09:00→21:39)
[2020-05-13] MEDS: ACIDOPHILUS/BULGARICUS CHEW TAB GT SCH ×2 (09:20→21:23)
[2020-05-13] MEDS: SERTRALINE 25 MG GT SCH (09:20)
[2020-05-13] MEDS: ACETAMINOPHEN 650 MG/20.3 ML LIQUID UDC GT SCH (09:20)
[2020-05-13] MEDS: COD LIVER OIL/ZINC OXIDE OINT 113 GM TUBE TOP SCH ×2 (09:20→21:23)
[2020-05-13] MEDS: SODIUM HYPOCHLORITE 0.125% (QUARTER STRENGTH) 473 ML BOTTLE TP SCH ×2 (09:21→21:23)
[2020-05-13] MEDS: THERAHONEY GEL 1.5 OZ TUBE TOP SCH ×2 (09:21→21:23)
--- NOTE | 2020-05-13 18:54 | NUR ---
Pt notify Covid 19 result was negative.
--- NOTE | 2020-05-13 19:00 | NUR ---
Seen and examined by Dr Sylvester ,no new orders noted.
[2020-05-13 20:08] VITALS: BP 101/49
[2020-05-13] MEDS: SIMVASTATIN 10 MG TABLET GT SCH (21:23)
[2020-05-13] MEDS: ESTROGENS,CONJU VAGINAL CREAM 42.5 GM TUBE VG SCH (21:23)
[2020-05-13] MEDS: ASCORBIC ACID 500 MG TABLET GT SCH (21:23)
[2020-05-13] MEDS: MULTIVIT, IRON, MIN NO. 8, FA TABLET GT SCH (21:23)
[2020-05-14] MEDS: BACLOFEN 10 MG TABLET GT SCH ×4 (00:22→18:19)
[2020-05-14] MEDS: ALBUTEROL SULFATE 2.5 MG/3 ML NEBU NEB SCH ×6 (02:50→23:18)
[2020-05-14] MEDS: IPRATROPIUM BROMIDE 0.5 MG/2.5 ML NEBU NEB SCH ×6 (02:50→23:18)
[2020-05-14] MEDS: ARGININE/GLUTAMINE/CALCIUM BMB 1 EACH POWD.PACK GT SCH ×2 (05:42→18:19)
[2020-05-14] MEDS: PROTEIN SUPPLEMENT (PROSTAT) 30 ML LIQUID GT SCH ×3 (05:44→22:44)
[2020-05-14] MEDS: JEVITY 1.2 1000 ML LIQUID GT PRN (05:44)
[2020-05-14] MEDS: OMEPRAZOLE 20 MG CAPSULE.DR GT SCH (05:44)
[2020-05-14 07:30] VITALS: BP 110/67
[2020-05-14] MEDS: ACIDOPHILUS/BULGARICUS CHEW TAB GT SCH ×2 (09:17→21:00)
[2020-05-14] MEDS: ACETAMINOPHEN 650 MG/20.3 ML LIQUID UDC GT SCH (09:17)
[2020-05-14] MEDS: COD LIVER OIL/ZINC OXIDE OINT 113 GM TUBE TOP SCH ×2 (09:18→21:00)
[2020-05-14] MEDS: SERTRALINE 25 MG GT SCH (09:18)
[2020-05-14] MEDS: SODIUM HYPOCHLORITE 0.125% (QUARTER STRENGTH) 473 ML BOTTLE TP SCH ×2 (09:18→21:00)
[2020-05-14] MEDS: THERAHONEY GEL 1.5 OZ TUBE TOP SCH ×2 (09:20→21:00)
[2020-05-14] MEDS: HYDROGEN PEROXIDE 3% 118 ML BOTTLE TP SCH ×2 (09:45→19:31)
[2020-05-14 20:00] VITALS: BP 108/64
[2020-05-14] MEDS: MULTIVIT, IRON, MIN NO. 8, FA TABLET GT SCH (21:00)
[2020-05-14] MEDS: ASCORBIC ACID 500 MG TABLET GT SCH (21:00)
[2020-05-14] MEDS: SIMVASTATIN 10 MG TABLET GT SCH (21:00)
[2020-05-14] MEDS: ESTROGENS,CONJU VAGINAL CREAM 42.5 GM TUBE VG SCH (21:00)
[2020-05-14] MEDS: TEMAZEPAM 7.5 MG CAPSULE GT PRN (22:44)
[2020-05-15] MEDS: BACLOFEN 10 MG TABLET GT SCH ×4 (00:15→18:56)
[2020-05-15] MEDS: ALBUTEROL SULFATE 2.5 MG/3 ML NEBU NEB SCH ×6 (03:13→23:45)
[2020-05-15] MEDS: IPRATROPIUM BROMIDE 0.5 MG/2.5 ML NEBU NEB SCH ×6 (03:13→23:45)
[2020-05-15] MEDS: JEVITY 1.2 1000 ML LIQUID GT PRN (04:02)
[2020-05-15] MEDS: PROTEIN SUPPLEMENT (PROSTAT) 30 ML LIQUID GT SCH ×3 (05:36→21:45)
[2020-05-15] MEDS: OMEPRAZOLE 20 MG CAPSULE.DR GT SCH (05:36)
[2020-05-15] MEDS: ARGININE/GLUTAMINE/CALCIUM BMB 1 EACH POWD.PACK GT SCH ×2 (05:36→18:55)
[2020-05-15 08:00] VITALS: BP 99/47
[2020-05-15] MEDS: COD LIVER OIL/ZINC OXIDE OINT 113 GM TUBE TOP SCH ×2 (08:12→21:44)
[2020-05-15] MEDS: ACIDOPHILUS/BULGARICUS CHEW TAB GT SCH ×2 (08:12→21:44)
[2020-05-15] MEDS: ACETAMINOPHEN 650 MG/20.3 ML LIQUID UDC GT SCH (08:12)
[2020-05-15] MEDS: SERTRALINE 25 MG GT SCH (08:12)
[2020-05-15] MEDS: SODIUM HYPOCHLORITE 0.125% (QUARTER STRENGTH) 473 ML BOTTLE TP SCH ×2 (08:12→21:44)
[2020-05-15] MEDS: THERAHONEY GEL 1.5 OZ TUBE TOP SCH ×2 (08:12→21:44)
[2020-05-15] MEDS: HYDROGEN PEROXIDE 3% 118 ML BOTTLE TP SCH ×2 (09:00→21:59)
[2020-05-15 20:21] VITALS: BP 115/57
[2020-05-15] MEDS: MULTIVIT, IRON, MIN NO. 8, FA TABLET GT SCH (21:44)
[2020-05-15] MEDS: ASCORBIC ACID 500 MG TABLET GT SCH (21:44)
[2020-05-15] MEDS: SIMVASTATIN 10 MG TABLET GT SCH (21:44)
[2020-05-15] MEDS: ESTROGENS,CONJU VAGINAL CREAM 42.5 GM TUBE VG SCH (21:45)
[2020-05-15] MEDS: TEMAZEPAM 7.5 MG CAPSULE GT PRN (21:45)
[2020-05-16] MEDS: BACLOFEN 10 MG TABLET GT SCH ×4 (00:26→17:50)
--- NOTE | 2020-05-16 02:15 | NUR ---
For COVID-19 testing as per [facility] requirement.
[2020-05-16] MEDS: ALBUTEROL SULFATE 2.5 MG/3 ML NEBU NEB SCH ×5 (03:07→19:32)
[2020-05-16] MEDS: IPRATROPIUM BROMIDE 0.5 MG/2.5 ML NEBU NEB SCH ×5 (03:07→19:32)
[2020-05-16] MEDS: JEVITY 1.2 1000 ML LIQUID GT PRN (04:10)
[2020-05-16] MEDS: OMEPRAZOLE 20 MG CAPSULE.DR GT SCH (05:51)
[2020-05-16] MEDS: ARGININE/GLUTAMINE/CALCIUM BMB 1 EACH POWD.PACK GT SCH ×2 (05:51→17:50)
[2020-05-16] MEDS: PROTEIN SUPPLEMENT (PROSTAT) 30 ML LIQUID GT SCH ×3 (05:51→21:31)
[2020-05-16 07:39] VITALS: BP 120/63
[2020-05-16] MEDS: HYDROGEN PEROXIDE 3% 118 ML BOTTLE TP SCH ×2 (08:00→21:00)
--- NOTE | 2020-05-16 09:00 | NUR ---
PT'S DTR. RAKEL AWARE OF COVID 19 TEST TODAY AND IN AGREEMENT.
[2020-05-16] MEDS: ACIDOPHILUS/BULGARICUS CHEW TAB GT SCH ×2 (09:09→21:31)
[2020-05-16] MEDS: COD LIVER OIL/ZINC OXIDE OINT 113 GM TUBE TOP SCH ×2 (09:09→21:31)
[2020-05-16] MEDS: ACETAMINOPHEN 650 MG/20.3 ML LIQUID UDC GT SCH (09:09)
[2020-05-16] MEDS: SERTRALINE 25 MG GT SCH (09:09)
[2020-05-16] MEDS: SODIUM HYPOCHLORITE 0.125% (QUARTER STRENGTH) 473 ML BOTTLE TP SCH ×2 (09:10→21:31)
[2020-05-16] MEDS: THERAHONEY GEL 1.5 OZ TUBE TOP SCH ×2 (09:10→21:31)
[2020-05-16 20:29] VITALS: BP 105/64
[2020-05-16] MEDS: SIMVASTATIN 10 MG TABLET GT SCH (21:31)
[2020-05-16] MEDS: ASCORBIC ACID 500 MG TABLET GT SCH (21:31)
[2020-05-16] MEDS: ESTROGENS,CONJU VAGINAL CREAM 42.5 GM TUBE VG SCH (21:31)
[2020-05-16] MEDS: TEMAZEPAM 7.5 MG CAPSULE GT PRN (21:31)
[2020-05-16] MEDS: MULTIVIT, IRON, MIN NO. 8, FA TABLET GT SCH (21:31)
[2020-05-17] MEDS: BACLOFEN 10 MG TABLET GT SCH ×4 (00:08→18:23)
[2020-05-17] MEDS: ALBUTEROL SULFATE 2.5 MG/3 ML NEBU NEB SCH ×7 (00:21→23:30)
[2020-05-17] MEDS: IPRATROPIUM BROMIDE 0.5 MG/2.5 ML NEBU NEB SCH ×7 (00:21→23:30)
[2020-05-17] MEDS: JEVITY 1.2 1000 ML LIQUID GT PRN (03:22)
[2020-05-17] MEDS: PROTEIN SUPPLEMENT (PROSTAT) 30 ML LIQUID GT SCH ×3 (05:16→22:41)
[2020-05-17] MEDS: ARGININE/GLUTAMINE/CALCIUM BMB 1 EACH POWD.PACK GT SCH ×2 (05:16→18:23)
[2020-05-17] MEDS: OMEPRAZOLE 20 MG CAPSULE.DR GT SCH (05:16)
[2020-05-17 07:31] VITALS: BP 110/63
[2020-05-17] MEDS: HYDROGEN PEROXIDE 3% 118 ML BOTTLE TP SCH ×2 (08:16→21:33)
[2020-05-17] MEDS: SERTRALINE 25 MG GT SCH (08:44)
[2020-05-17] MEDS: ACETAMINOPHEN 650 MG/20.3 ML LIQUID UDC GT SCH (08:44)
[2020-05-17] MEDS: ACIDOPHILUS/BULGARICUS CHEW TAB GT SCH ×2 (08:44→20:58)
[2020-05-17] MEDS: SODIUM HYPOCHLORITE 0.125% (QUARTER STRENGTH) 473 ML BOTTLE TP SCH ×2 (08:44→20:59)
[2020-05-17] MEDS: COD LIVER OIL/ZINC OXIDE OINT 113 GM TUBE TOP SCH ×2 (08:44→20:58)
[2020-05-17] MEDS: THERAHONEY GEL 1.5 OZ TUBE TOP SCH ×2 (08:44→20:58)
--- NOTE | 2020-05-17 18:11 | NUR ---
PT'S DTR. RAKEL GARCIA AWARE OF COVID 19 TEST NEGATIVE.
[2020-05-17 20:01] VITALS: BP 105/42
[2020-05-17] MEDS: MULTIVIT, IRON, MIN NO. 8, FA TABLET GT SCH (20:58)
[2020-05-17] MEDS: SIMVASTATIN 10 MG TABLET GT SCH (20:58)
[2020-05-17] MEDS: ASCORBIC ACID 500 MG TABLET GT SCH (20:58)
[2020-05-17] MEDS: ESTROGENS,CONJU VAGINAL CREAM 42.5 GM TUBE VG SCH (20:59)
[2020-05-18] MEDS: BACLOFEN 10 MG TABLET GT SCH ×4 (00:08→17:49)
[2020-05-18] MEDS: ALBUTEROL SULFATE 2.5 MG/3 ML NEBU NEB SCH ×6 (03:14→23:10)
[2020-05-18] MEDS: IPRATROPIUM BROMIDE 0.5 MG/2.5 ML NEBU NEB SCH ×6 (03:14→23:10)
[2020-05-18] MEDS: ARGININE/GLUTAMINE/CALCIUM BMB 1 EACH POWD.PACK GT SCH ×2 (05:35→17:49)
[2020-05-18] MEDS: PROTEIN SUPPLEMENT (PROSTAT) 30 ML LIQUID GT SCH ×3 (05:35→21:12)
[2020-05-18] MEDS: OMEPRAZOLE 20 MG CAPSULE.DR GT SCH (05:35)
[2020-05-18] MEDS: JEVITY 1.2 1000 ML LIQUID GT PRN (06:57)
[2020-05-18 07:46] VITALS: BP 105/41
[2020-05-18] MEDS: ACETAMINOPHEN 650 MG/20.3 ML LIQUID UDC GT SCH (08:30)
[2020-05-18] MEDS: HYDROGEN PEROXIDE 3% 118 ML BOTTLE TP SCH ×2 (08:36→21:50)
[2020-05-18] MEDS: SODIUM HYPOCHLORITE 0.125% (QUARTER STRENGTH) 473 ML BOTTLE TP SCH ×2 (09:00→21:12)
[2020-05-18] MEDS: THERAHONEY GEL 1.5 OZ TUBE TOP SCH ×2 (09:00→21:12)
[2020-05-18] MEDS: COD LIVER OIL/ZINC OXIDE OINT 113 GM TUBE TOP SCH ×2 (09:00→21:11)
[2020-05-18] MEDS: ACIDOPHILUS/BULGARICUS CHEW TAB GT SCH ×2 (09:00→21:11)
[2020-05-18] MEDS: SERTRALINE 25 MG GT SCH (09:00)
--- NOTE | 2020-05-18 13:40 | NUR ---
SEEN BY AMY Lorenzo AND WITH NNO.
[2020-05-18 20:03] VITALS: BP 118/48
[2020-05-18] MEDS: MULTIVIT, IRON, MIN NO. 8, FA TABLET GT SCH (21:11)
[2020-05-18] MEDS: SIMVASTATIN 10 MG TABLET GT SCH (21:11)
[2020-05-18] MEDS: ASCORBIC ACID 500 MG TABLET GT SCH (21:11)
[2020-05-18] MEDS: ESTROGENS,CONJU VAGINAL CREAM 42.5 GM TUBE VG SCH (21:12)
[2020-05-19] MEDS: BACLOFEN 10 MG TABLET GT SCH ×5 (00:24→23:43)
[2020-05-19] MEDS: IPRATROPIUM BROMIDE 0.5 MG/2.5 ML NEBU NEB SCH ×6 (03:03→23:09)
[2020-05-19] MEDS: ALBUTEROL SULFATE 2.5 MG/3 ML NEBU NEB SCH ×6 (03:03→23:09)
[2020-05-19] MEDS: PROTEIN SUPPLEMENT (PROSTAT) 30 ML LIQUID GT SCH ×3 (05:57→21:27)
[2020-05-19] MEDS: OMEPRAZOLE 20 MG CAPSULE.DR GT SCH (05:57)
[2020-05-19] MEDS: ARGININE/GLUTAMINE/CALCIUM BMB 1 EACH POWD.PACK GT SCH ×2 (05:57→18:05)
[2020-05-19] MEDS: JEVITY 1.2 1000 ML LIQUID GT PRN (06:48)
[2020-05-19 07:29] VITALS: BP 102/59
[2020-05-19] MEDS: HYDROGEN PEROXIDE 3% 118 ML BOTTLE TP SCH ×2 (08:44→21:07)
[2020-05-19] MEDS: SODIUM HYPOCHLORITE 0.125% (QUARTER STRENGTH) 473 ML BOTTLE TP SCH ×2 (09:20→21:27)
[2020-05-19] MEDS: COD LIVER OIL/ZINC OXIDE OINT 113 GM TUBE TOP SCH ×2 (09:20→21:27)
[2020-05-19] MEDS: THERAHONEY GEL 1.5 OZ TUBE TOP SCH ×2 (09:20→21:27)
[2020-05-19] MEDS: SERTRALINE 25 MG GT SCH (09:20)
[2020-05-19] MEDS: ACIDOPHILUS/BULGARICUS CHEW TAB GT SCH ×2 (09:20→21:27)
[2020-05-19] MEDS: ACETAMINOPHEN 650 MG/20.3 ML LIQUID UDC GT SCH (09:20)
--- NOTE | 2020-05-19 14:29 | NUR ---
Seen and examined by Dionna Hermosillo,no new orders.
[2020-05-19 19:55] VITALS: BP 105/44
[2020-05-19] MEDS: MULTIVIT, IRON, MIN NO. 8, FA TABLET GT SCH (21:27)
[2020-05-19] MEDS: ASCORBIC ACID 500 MG TABLET GT SCH (21:27)
[2020-05-19] MEDS: ESTROGENS,CONJU VAGINAL CREAM 42.5 GM TUBE VG SCH (21:27)
[2020-05-19] MEDS: SIMVASTATIN 10 MG TABLET GT SCH (21:27)
[2020-05-19] MEDS: TEMAZEPAM 7.5 MG CAPSULE GT PRN (22:01)
[2020-05-20] MEDS: ALBUTEROL SULFATE 2.5 MG/3 ML NEBU NEB SCH ×6 (03:30→23:03)
[2020-05-20] MEDS: IPRATROPIUM BROMIDE 0.5 MG/2.5 ML NEBU NEB SCH ×6 (03:30→23:03)
[2020-05-20] MEDS: OMEPRAZOLE 20 MG CAPSULE.DR GT SCH (05:44)
[2020-05-20] MEDS: BACLOFEN 10 MG TABLET GT SCH ×3 (05:44→17:00)
[2020-05-20] MEDS: ARGININE/GLUTAMINE/CALCIUM BMB 1 EACH POWD.PACK GT SCH ×2 (05:44→17:00)
[2020-05-20] MEDS: PROTEIN SUPPLEMENT (PROSTAT) 30 ML LIQUID GT SCH ×3 (05:44→21:01)
[2020-05-20 07:32] VITALS: BP 124/71
[2020-05-20] MEDS: ACETAMINOPHEN 650 MG/20.3 ML LIQUID UDC GT SCH (08:34)
[2020-05-20] MEDS: ACIDOPHILUS/BULGARICUS CHEW TAB GT SCH ×2 (08:34→21:00)
[2020-05-20] MEDS: SERTRALINE 25 MG GT SCH (08:34)
[2020-05-20] MEDS: COD LIVER OIL/ZINC OXIDE OINT 113 GM TUBE TOP SCH ×2 (09:00→21:01)
[2020-05-20] MEDS: THERAHONEY GEL 1.5 OZ TUBE TOP SCH ×2 (09:35→21:01)
[2020-05-20] MEDS: SODIUM HYPOCHLORITE 0.125% (QUARTER STRENGTH) 473 ML BOTTLE TP SCH ×2 (09:35→21:01)
[2020-05-20] MEDS: HYDROGEN PEROXIDE 3% 118 ML BOTTLE TP SCH ×2 (09:49→21:50)
[2020-05-20] MEDS: JEVITY 1.2 1000 ML LIQUID GT PRN (12:56)
[2020-05-20] MEDS: MULTIVIT, IRON, MIN NO. 8, FA TABLET GT SCH (21:00)
[2020-05-20] MEDS: SIMVASTATIN 10 MG TABLET GT SCH (21:00)
[2020-05-20] MEDS: ASCORBIC ACID 500 MG TABLET GT SCH (21:00)
[2020-05-20] MEDS: ESTROGENS,CONJU VAGINAL CREAM 42.5 GM TUBE VG SCH (21:01)
[2020-05-20 22:47] VITALS: BP 105/48
[2020-05-21] MEDS: BACLOFEN 10 MG TABLET GT SCH ×4 (00:14→18:55)
[2020-05-21] MEDS: ALBUTEROL SULFATE 2.5 MG/3 ML NEBU NEB SCH ×6 (03:42→23:23)
[2020-05-21] MEDS: IPRATROPIUM BROMIDE 0.5 MG/2.5 ML NEBU NEB SCH ×6 (03:42→23:23)
[2020-05-21] MEDS: ARGININE/GLUTAMINE/CALCIUM BMB 1 EACH POWD.PACK GT SCH ×2 (05:12→18:55)
[2020-05-21] MEDS: OMEPRAZOLE 20 MG CAPSULE.DR GT SCH (05:13)
[2020-05-21] MEDS: PROTEIN SUPPLEMENT (PROSTAT) 30 ML LIQUID GT SCH ×3 (05:13→21:34)
[2020-05-21 07:23] VITALS: BP 109/51
[2020-05-21] MEDS: HYDROGEN PEROXIDE 3% 118 ML BOTTLE TP SCH ×2 (07:57→21:00)
[2020-05-21] MEDS: ACETAMINOPHEN 650 MG/20.3 ML LIQUID UDC GT SCH (08:30)
[2020-05-21] MEDS: ACIDOPHILUS/BULGARICUS CHEW TAB GT SCH ×2 (08:31→21:34)
[2020-05-21] MEDS: SERTRALINE 25 MG GT SCH (08:31)
[2020-05-21] MEDS: JEVITY 1.2 1000 ML LIQUID GT PRN (09:45)
[2020-05-21] MEDS: SODIUM HYPOCHLORITE 0.125% (QUARTER STRENGTH) 473 ML BOTTLE TP SCH ×2 (09:45→21:34)
[2020-05-21] MEDS: COD LIVER OIL/ZINC OXIDE OINT 113 GM TUBE TOP SCH ×2 (09:45→21:34)
[2020-05-21] MEDS: THERAHONEY GEL 1.5 OZ TUBE TOP SCH ×2 (09:45→21:34)
--- NOTE | 2020-05-21 10:27 | NUR ---
SW notified patient's daughter Ludmila, via email, that the next IDT meeting for the patient has been scheduled for Monday, 05/26 at 11am. DOROTHY asked Ludmila to let this SW know if Ludmila would like to participate in the meeting by speaker phone.
[2020-05-21 19:40] VITALS: BP 100/52
[2020-05-21] MEDS: ESTROGENS,CONJU VAGINAL CREAM 42.5 GM TUBE VG SCH (21:34)
[2020-05-21] MEDS: MULTIVIT, IRON, MIN NO. 8, FA TABLET GT SCH (21:34)
[2020-05-21] MEDS: ASCORBIC ACID 500 MG TABLET GT SCH (21:34)
[2020-05-21] MEDS: SIMVASTATIN 10 MG TABLET GT SCH (21:34)
[2020-05-21] MEDS: TEMAZEPAM 7.5 MG CAPSULE GT PRN (22:00)
[2020-05-22] MEDS: BACLOFEN 10 MG TABLET GT SCH ×4 (00:47→17:23)
[2020-05-22] MEDS: IPRATROPIUM BROMIDE 0.5 MG/2.5 ML NEBU NEB SCH ×6 (03:11→22:57)
[2020-05-22] MEDS: ALBUTEROL SULFATE 2.5 MG/3 ML NEBU NEB SCH ×6 (03:11→22:57)
[2020-05-22] MEDS: ARGININE/GLUTAMINE/CALCIUM BMB 1 EACH POWD.PACK GT SCH ×2 (05:16→17:23)
[2020-05-22] MEDS: PROTEIN SUPPLEMENT (PROSTAT) 30 ML LIQUID GT SCH ×3 (05:17→21:05)
[2020-05-22] MEDS: OMEPRAZOLE 20 MG CAPSULE.DR GT SCH (05:17)
[2020-05-22] MEDS: HYDROGEN PEROXIDE 3% 118 ML BOTTLE TP SCH ×2 (07:19→21:06)
[2020-05-22 07:29] VITALS: BP 106/54
[2020-05-22] MEDS: ACETAMINOPHEN 650 MG/20.3 ML LIQUID UDC GT SCH (08:30)
[2020-05-22] MEDS: SERTRALINE 25 MG GT SCH (08:41)
[2020-05-22] MEDS: ACIDOPHILUS/BULGARICUS CHEW TAB GT SCH ×2 (08:41→21:04)
[2020-05-22] MEDS: COD LIVER OIL/ZINC OXIDE OINT 113 GM TUBE TOP SCH ×2 (08:41→21:05)
[2020-05-22] MEDS: THERAHONEY GEL 1.5 OZ TUBE TOP SCH ×2 (08:42→21:05)
[2020-05-22] MEDS: SODIUM HYPOCHLORITE 0.125% (QUARTER STRENGTH) 473 ML BOTTLE TP SCH ×2 (08:42→21:05)
[2020-05-22] MEDS: JEVITY 1.2 1000 ML LIQUID GT PRN (12:20)
[2020-05-22] MEDS: MULTIVIT, IRON, MIN NO. 8, FA TABLET GT SCH (21:04)
[2020-05-22] MEDS: SIMVASTATIN 10 MG TABLET GT SCH (21:04)
[2020-05-22] MEDS: ASCORBIC ACID 500 MG TABLET GT SCH (21:04)
[2020-05-22] MEDS: ESTROGENS,CONJU VAGINAL CREAM 42.5 GM TUBE VG SCH (21:05)
[2020-05-22 22:16] VITALS: BP 109/50
[2020-05-23] MEDS: BACLOFEN 10 MG TABLET GT SCH ×4 (00:57→17:16)
[2020-05-23] MEDS: ALBUTEROL SULFATE 2.5 MG/3 ML NEBU NEB SCH ×6 (03:05→22:59)
[2020-05-23] MEDS: IPRATROPIUM BROMIDE 0.5 MG/2.5 ML NEBU NEB SCH ×6 (03:05→22:59)
[2020-05-23] MEDS: ARGININE/GLUTAMINE/CALCIUM BMB 1 EACH POWD.PACK GT SCH ×2 (05:19→17:16)
[2020-05-23] MEDS: OMEPRAZOLE 20 MG CAPSULE.DR GT SCH (05:19)
[2020-05-23] MEDS: PROTEIN SUPPLEMENT (PROSTAT) 30 ML LIQUID GT SCH ×3 (05:19→21:33)
[2020-05-23 07:36] VITALS: BP 107/63
[2020-05-23] MEDS: HYDROGEN PEROXIDE 3% 118 ML BOTTLE TP SCH ×2 (07:53→21:00)
[2020-05-23] MEDS: ACETAMINOPHEN 650 MG/20.3 ML LIQUID UDC GT SCH (08:43)
[2020-05-23] MEDS: ACIDOPHILUS/BULGARICUS CHEW TAB GT SCH ×2 (08:43→21:33)
[2020-05-23] MEDS: SERTRALINE 25 MG GT SCH (08:44)
[2020-05-23] MEDS: COD LIVER OIL/ZINC OXIDE OINT 113 GM TUBE TOP SCH ×2 (09:15→21:33)
[2020-05-23] MEDS: THERAHONEY GEL 1.5 OZ TUBE TOP SCH ×2 (09:35→21:33)
[2020-05-23] MEDS: SODIUM HYPOCHLORITE 0.125% (QUARTER STRENGTH) 473 ML BOTTLE TP SCH ×2 (09:35→21:33)
[2020-05-23] MEDS: JEVITY 1.2 1000 ML LIQUID GT PRN (13:53)
[2020-05-23] MEDS: SIMVASTATIN 10 MG TABLET GT SCH (21:33)
[2020-05-23] MEDS: ESTROGENS,CONJU VAGINAL CREAM 42.5 GM TUBE VG SCH (21:33)
[2020-05-23] MEDS: ASCORBIC ACID 500 MG TABLET GT SCH (21:33)
[2020-05-23] MEDS: MULTIVIT, IRON, MIN NO. 8, FA TABLET GT SCH (21:33)
[2020-05-23 22:10] VITALS: BP 103/50
[2020-05-24] MEDS: BACLOFEN 10 MG TABLET GT SCH ×5 (00:11→23:12)
[2020-05-24] MEDS: ALBUTEROL SULFATE 2.5 MG/3 ML NEBU NEB SCH ×6 (02:50→22:51)
[2020-05-24] MEDS: IPRATROPIUM BROMIDE 0.5 MG/2.5 ML NEBU NEB SCH ×6 (02:50→22:51)
[2020-05-24] MEDS: OMEPRAZOLE 20 MG CAPSULE.DR GT SCH (05:21)
[2020-05-24] MEDS: ARGININE/GLUTAMINE/CALCIUM BMB 1 EACH POWD.PACK GT SCH ×2 (05:21→18:10)
[2020-05-24] MEDS: PROTEIN SUPPLEMENT (PROSTAT) 30 ML LIQUID GT SCH ×3 (05:21→22:43)
[2020-05-24 07:26] VITALS: BP 108/60
[2020-05-24] MEDS: HYDROGEN PEROXIDE 3% 118 ML BOTTLE TP SCH ×2 (07:32→19:44)
[2020-05-24] MEDS: SERTRALINE 25 MG GT SCH (08:56)
[2020-05-24] MEDS: THERAHONEY GEL 1.5 OZ TUBE TOP SCH ×2 (08:56→20:33)
[2020-05-24] MEDS: ACIDOPHILUS/BULGARICUS CHEW TAB GT SCH ×2 (08:56→20:32)
[2020-05-24] MEDS: SODIUM HYPOCHLORITE 0.125% (QUARTER STRENGTH) 473 ML BOTTLE TP SCH ×2 (08:56→20:33)
[2020-05-24] MEDS: ACETAMINOPHEN 650 MG/20.3 ML LIQUID UDC GT SCH (08:56)
[2020-05-24] MEDS: COD LIVER OIL/ZINC OXIDE OINT 113 GM TUBE TOP SCH ×2 (08:56→20:33)
[2020-05-24] MEDS: JEVITY 1.2 1000 ML LIQUID GT PRN (11:11)
[2020-05-24] MEDS: ASCORBIC ACID 500 MG TABLET GT SCH (20:32)
[2020-05-24] MEDS: MULTIVIT, IRON, MIN NO. 8, FA TABLET GT SCH (20:32)
[2020-05-24] MEDS: SIMVASTATIN 10 MG TABLET GT SCH (20:32)
[2020-05-24] MEDS: ESTROGENS,CONJU VAGINAL CREAM 42.5 GM TUBE VG SCH (20:33)
[2020-05-24 23:31] VITALS: BP 108/50
[2020-05-25] MEDS: IPRATROPIUM BROMIDE 0.5 MG/2.5 ML NEBU NEB SCH ×6 (02:51→23:01)
[2020-05-25] MEDS: ALBUTEROL SULFATE 2.5 MG/3 ML NEBU NEB SCH ×6 (02:52→23:01)
[2020-05-25] MEDS: ARGININE/GLUTAMINE/CALCIUM BMB 1 EACH POWD.PACK GT SCH ×2 (05:25→17:25)
[2020-05-25] MEDS: PROTEIN SUPPLEMENT (PROSTAT) 30 ML LIQUID GT SCH ×3 (05:25→21:28)
[2020-05-25] MEDS: OMEPRAZOLE 20 MG CAPSULE.DR GT SCH (05:25)
[2020-05-25] MEDS: BACLOFEN 10 MG TABLET GT SCH ×4 (05:25→23:10)
[2020-05-25 07:49] VITALS: BP 106/48
[2020-05-25] MEDS: HYDROGEN PEROXIDE 3% 118 ML BOTTLE TP SCH ×2 (09:15→21:32)
[2020-05-25] MEDS: ACETAMINOPHEN 650 MG/20.3 ML LIQUID UDC GT SCH (09:16)
[2020-05-25] MEDS: ACIDOPHILUS/BULGARICUS CHEW TAB GT SCH ×2 (09:18→21:26)
[2020-05-25] MEDS: SERTRALINE 25 MG GT SCH (09:18)
[2020-05-25] MEDS: THERAHONEY GEL 1.5 OZ TUBE TOP SCH ×2 (09:18→21:27)
[2020-05-25] MEDS: COD LIVER OIL/ZINC OXIDE OINT 113 GM TUBE TOP SCH ×2 (09:18→21:26)
[2020-05-25] MEDS: SODIUM HYPOCHLORITE 0.125% (QUARTER STRENGTH) 473 ML BOTTLE TP SCH ×2 (09:18→21:27)
--- NOTE | 2020-05-25 10:27 | NUR ---
Daughter Ludmila notified, latest result of covid19 is negative.
[2020-05-25] MEDS: JEVITY 1.2 1000 ML LIQUID GT PRN (17:48)
[2020-05-25 19:55] VITALS: BP 114/56
[2020-05-25] MEDS: ASCORBIC ACID 500 MG TABLET GT SCH (21:26)
[2020-05-25] MEDS: MULTIVIT, IRON, MIN NO. 8, FA TABLET GT SCH (21:26)
[2020-05-25] MEDS: ESTROGENS,CONJU VAGINAL CREAM 42.5 GM TUBE VG SCH (21:27)
[2020-05-25] MEDS: SIMVASTATIN 10 MG TABLET GT SCH (21:27)
[2020-05-26] MEDS: IPRATROPIUM BROMIDE 0.5 MG/2.5 ML NEBU NEB SCH ×6 (03:01→23:13)
[2020-05-26] MEDS: ALBUTEROL SULFATE 2.5 MG/3 ML NEBU NEB SCH ×6 (03:01→23:13)
[2020-05-26] MEDS: ARGININE/GLUTAMINE/CALCIUM BMB 1 EACH POWD.PACK GT SCH ×2 (05:40→17:05)
[2020-05-26] MEDS: OMEPRAZOLE 20 MG CAPSULE.DR GT SCH (05:40)
[2020-05-26] MEDS: PROTEIN SUPPLEMENT (PROSTAT) 30 ML LIQUID GT SCH ×3 (05:40→21:42)
[2020-05-26] MEDS: BACLOFEN 10 MG TABLET GT SCH ×3 (05:40→17:05)
[2020-05-26 07:52] VITALS: BP 115/70
[2020-05-26] MEDS: HYDROGEN PEROXIDE 3% 118 ML BOTTLE TP SCH ×2 (07:57→21:00)
[2020-05-26] MEDS: ACIDOPHILUS/BULGARICUS CHEW TAB GT SCH ×2 (09:25→21:39)
[2020-05-26] MEDS: SERTRALINE 25 MG GT SCH (09:25)
[2020-05-26] MEDS: COD LIVER OIL/ZINC OXIDE OINT 113 GM TUBE TOP SCH ×2 (09:25→21:42)
[2020-05-26] MEDS: SODIUM HYPOCHLORITE 0.125% (QUARTER STRENGTH) 473 ML BOTTLE TP SCH ×2 (09:25→21:42)
[2020-05-26] MEDS: ACETAMINOPHEN 650 MG/20.3 ML LIQUID UDC GT SCH (09:25)
[2020-05-26] MEDS: THERAHONEY GEL 1.5 OZ TUBE TOP SCH ×2 (09:25→21:42)
[2020-05-26 12:00] VITALS: BP 101/42
[2020-05-26] MEDS: JEVITY 1.2 1000 ML LIQUID GT PRN (12:40)
--- NOTE | 2020-05-26 13:00 | NUR ---
New orders from Dr Sylvester,carried out.
--- NOTE | 2020-05-26 13:08 | NUR ---
Dr Sylvester was notified pt's hr is 120 to 135 irregular,no fever noted,no complaints of pain,F/c draining well.
[2020-05-26 13:30] LABS: BILIRUBIN,TOTAL 0.5 mg/dL (0.2-1.0); CREATININE 1.1 mg/dL (0.6-1.3); POTASSIUM 3.4 mmol/L (3.5-5.1); TOTAL PROTEIN, SERUM 8.6 g/dL (6.4-8.2)
[2020-05-26 13:59] LABS: MEAN CORPUSCULAR VOLUME 92.7 fL (75.5-95.3)
[2020-05-26 14:09] LABS: BASOPHILS # (AUTO) 0.1 K/uL (0.0-8.0); BASOPHILS % (AUTO) 0.5 % (0.0-2.0); EOSINOPHILS # (AUTO) 0.3 K/uL (0.0-0.7); EOSINOPHILS % (AUTO) 2.8 % (0.0-7.0); HEMATOCRIT 46.7 % (31.2-41.9); HEMOGLOBIN 14.6 g/dL (10.9-14.3); LYMPHOCYTES % (AUTO) 26.9 % (20.5-51.5); MEAN CORPUSCULAR HEMOGLOBIN 28.9 uug (24.7-32.8); MEAN CORPUSCULAR HGB CONC 31 g/dL (32.3-35.6); MONOCYTES # (AUTO) 0.9 K/uL (2.0-10.0); MONOCYTES % (AUTO) 8.2 % (0.0-11.0); NEUTROPHILS % (AUTO) 61.6 % (38.5-71.5); PLATELET COUNT (AUTO) 166 K/uL (179-408); RED BLOOD CELL COUNT(AUTO) 5.04 MIL/uL (3.63-4.92); WHITE BLOOD COUNT (AUTO) 11.3 K/uL (3.8-11.8)
--- NOTE | 2020-05-26 17:20 | NUR ---
EKG and labs results reported to Dionna Dial with new orders noted.increase water flushes to 350 cc every 6 hours.Kcl 20 meq x 1 for K 3.4,cbc and cmp on monday.
[2020-05-26 20:00] VITALS: BP 96/56
[2020-05-26] MEDS: ASCORBIC ACID 500 MG TABLET GT SCH (21:40)
[2020-05-26] MEDS: MULTIVIT, IRON, MIN NO. 8, FA TABLET GT SCH (21:40)
[2020-05-26] MEDS: SIMVASTATIN 10 MG TABLET GT SCH (21:41)
[2020-05-26] MEDS: ESTROGENS,CONJU VAGINAL CREAM 42.5 GM TUBE VG SCH (21:42)
[2020-05-26] MEDS: TEMAZEPAM 7.5 MG CAPSULE GT PRN (21:43)
[2020-05-27] MEDS: ALBUTEROL SULFATE 2.5 MG/3 ML NEBU NEB SCH ×6 (03:38→22:54)
[2020-05-27] MEDS: IPRATROPIUM BROMIDE 0.5 MG/2.5 ML NEBU NEB SCH ×6 (03:38→22:54)
[2020-05-27] MEDS: PROTEIN SUPPLEMENT (PROSTAT) 30 ML LIQUID GT SCH ×3 (05:14→21:54)
[2020-05-27] MEDS: BACLOFEN 10 MG TABLET GT SCH ×4 (05:14→17:37)
[2020-05-27] MEDS: ARGININE/GLUTAMINE/CALCIUM BMB 1 EACH POWD.PACK GT SCH ×2 (05:14→17:37)
[2020-05-27] MEDS: OMEPRAZOLE 20 MG CAPSULE.DR GT SCH (05:14)
[2020-05-27 07:41] VITALS: BP 118/57
[2020-05-27] MEDS: ACETAMINOPHEN 650 MG/20.3 ML LIQUID UDC GT SCH (08:30)
[2020-05-27] MEDS: THERAHONEY GEL 1.5 OZ TUBE TOP SCH ×2 (09:00→21:54)
[2020-05-27] MEDS: COD LIVER OIL/ZINC OXIDE OINT 113 GM TUBE TOP SCH ×2 (09:00→21:54)
[2020-05-27] MEDS: ACIDOPHILUS/BULGARICUS CHEW TAB GT SCH ×2 (09:00→21:53)
[2020-05-27] MEDS: SODIUM HYPOCHLORITE 0.125% (QUARTER STRENGTH) 473 ML BOTTLE TP SCH ×2 (09:00→21:54)
[2020-05-27] MEDS: SERTRALINE 25 MG GT SCH (09:00)
[2020-05-27] MEDS: HYDROGEN PEROXIDE 3% 118 ML BOTTLE TP SCH ×2 (10:00→21:40)
[2020-05-27 20:00] VITALS: BP 101/54
[2020-05-27] MEDS: SIMVASTATIN 10 MG TABLET GT SCH (21:53)
[2020-05-27] MEDS: MULTIVIT, IRON, MIN NO. 8, FA TABLET GT SCH (21:53)
[2020-05-27] MEDS: ASCORBIC ACID 500 MG TABLET GT SCH (21:53)
[2020-05-27] MEDS: ESTROGENS,CONJU VAGINAL CREAM 42.5 GM TUBE VG SCH (21:54)
[2020-05-28] MEDS: ALBUTEROL SULFATE 2.5 MG/3 ML NEBU NEB SCH ×6 (02:50→23:25)
[2020-05-28] MEDS: IPRATROPIUM BROMIDE 0.5 MG/2.5 ML NEBU NEB SCH ×6 (02:50→23:25)
[2020-05-28] MEDS: ARGININE/GLUTAMINE/CALCIUM BMB 1 EACH POWD.PACK GT SCH ×2 (06:14→17:12)
[2020-05-28] MEDS: PROTEIN SUPPLEMENT (PROSTAT) 30 ML LIQUID GT SCH ×3 (06:15→21:52)
[2020-05-28] MEDS: OMEPRAZOLE 20 MG CAPSULE.DR GT SCH (06:15)
[2020-05-28] MEDS: BACLOFEN 10 MG TABLET GT SCH ×4 (06:15→17:12)
[2020-05-28 07:55] VITALS: BP 100/59
[2020-05-28] MEDS: SERTRALINE 25 MG GT SCH (09:21)
[2020-05-28] MEDS: COD LIVER OIL/ZINC OXIDE OINT 113 GM TUBE TOP SCH ×2 (09:21→21:51)
[2020-05-28] MEDS: ACETAMINOPHEN 650 MG/20.3 ML LIQUID UDC GT SCH (09:21)
[2020-05-28] MEDS: ACIDOPHILUS/BULGARICUS CHEW TAB GT SCH ×2 (09:21→21:51)
[2020-05-28] MEDS: SODIUM HYPOCHLORITE 0.125% (QUARTER STRENGTH) 473 ML BOTTLE TP SCH ×2 (09:24→21:51)
[2020-05-28] MEDS: THERAHONEY GEL 1.5 OZ TUBE TOP SCH ×2 (09:24→21:51)
[2020-05-28] MEDS: HYDROGEN PEROXIDE 3% 118 ML BOTTLE TP SCH ×2 (10:10→21:08)
--- NOTE | 2020-05-28 13:15 | NUR ---
Ludmila Geoffrey, pt's daughter, will contact [facility] regarding consent for COVID 19 vaccination.
--- NOTE | 2020-05-28 16:12 | NUR ---
SPOKE WITH PATIENT AND RESPONSIBLE LIBERTARIAN, RAKEL GARCIA, REGARDING COVID-19 VACCINE ADMINISTRATION. VERBAL CONSENT GIVEN BY RAKEL GARCIA AND PATIENT ALSO NOD HEAD TO AFFIRM OK TO RECEIVE COVID-19 VACCINE.
[2020-05-28] MEDS: JEVITY 1.2 1000 ML LIQUID GT PRN (17:13)
[2020-05-28 20:16] VITALS: BP 101/40
[2020-05-28] MEDS: MULTIVIT, IRON, MIN NO. 8, FA TABLET GT SCH (21:51)
[2020-05-28] MEDS: ASCORBIC ACID 500 MG TABLET GT SCH (21:51)
[2020-05-28] MEDS: ESTROGENS,CONJU VAGINAL CREAM 42.5 GM TUBE VG SCH (21:51)
[2020-05-28] MEDS: SIMVASTATIN 10 MG TABLET GT SCH (21:51)
[2020-05-29] MEDS: IPRATROPIUM BROMIDE 0.5 MG/2.5 ML NEBU NEB SCH ×6 (03:01→23:11)
[2020-05-29] MEDS: ALBUTEROL SULFATE 2.5 MG/3 ML NEBU NEB SCH ×6 (03:01→23:11)
[2020-05-29] MEDS: BACLOFEN 10 MG TABLET GT SCH ×4 (05:32→18:14)
[2020-05-29] MEDS: OMEPRAZOLE 20 MG CAPSULE.DR GT SCH (05:32)
[2020-05-29] MEDS: PROTEIN SUPPLEMENT (PROSTAT) 30 ML LIQUID GT SCH ×3 (05:32→22:34)
[2020-05-29] MEDS: ARGININE/GLUTAMINE/CALCIUM BMB 1 EACH POWD.PACK GT SCH ×2 (05:32→18:14)
[2020-05-29 08:27] VITALS: BP 103/48
[2020-05-29] MEDS: HYDROGEN PEROXIDE 3% 118 ML BOTTLE TP SCH ×2 (09:02→21:00)
[2020-05-29] MEDS: ACETAMINOPHEN 650 MG/20.3 ML LIQUID UDC GT SCH (09:30)
[2020-05-29] MEDS: THERAHONEY GEL 1.5 OZ TUBE TOP SCH ×2 (09:40→20:53)
[2020-05-29] MEDS: SERTRALINE 25 MG GT SCH (09:40)
[2020-05-29] MEDS: COD LIVER OIL/ZINC OXIDE OINT 113 GM TUBE TOP SCH ×2 (09:40→20:53)
[2020-05-29] MEDS: SODIUM HYPOCHLORITE 0.125% (QUARTER STRENGTH) 473 ML BOTTLE TP SCH ×2 (09:40→20:53)
[2020-05-29] MEDS: ACIDOPHILUS/BULGARICUS CHEW TAB GT SCH ×2 (09:40→20:53)
[2020-05-29] MEDS: JEVITY 1.2 1000 ML LIQUID GT PRN (18:14)
[2020-05-29 19:38] VITALS: BP 102/59
[2020-05-29] MEDS: ASCORBIC ACID 500 MG TABLET GT SCH (20:53)
[2020-05-29] MEDS: SIMVASTATIN 10 MG TABLET GT SCH (20:53)
[2020-05-29] MEDS: MULTIVIT, IRON, MIN NO. 8, FA TABLET GT SCH (20:53)
[2020-05-29] MEDS: ESTROGENS,CONJU VAGINAL CREAM 42.5 GM TUBE VG SCH (20:54)
[2020-05-30] MEDS: BACLOFEN 10 MG TABLET GT SCH ×5 (00:31→23:30)
[2020-05-30] MEDS: IPRATROPIUM BROMIDE 0.5 MG/2.5 ML NEBU NEB SCH ×6 (03:12→22:45)
[2020-05-30] MEDS: ALBUTEROL SULFATE 2.5 MG/3 ML NEBU NEB SCH ×6 (03:12→22:45)
[2020-05-30] MEDS: PROTEIN SUPPLEMENT (PROSTAT) 30 ML LIQUID GT SCH ×3 (06:22→21:16)
[2020-05-30] MEDS: ARGININE/GLUTAMINE/CALCIUM BMB 1 EACH POWD.PACK GT SCH ×2 (06:22→17:08)
[2020-05-30] MEDS: OMEPRAZOLE 20 MG CAPSULE.DR GT SCH (06:22)
[2020-05-30] MEDS: HYDROGEN PEROXIDE 3% 118 ML BOTTLE TP SCH ×2 (07:44→21:14)
[2020-05-30 07:51] VITALS: BP 97/50
[2020-05-30] MEDS: ACETAMINOPHEN 650 MG/20.3 ML LIQUID UDC GT SCH (08:30)
[2020-05-30] MEDS: COD LIVER OIL/ZINC OXIDE OINT 113 GM TUBE TOP SCH ×2 (09:36→21:16)
[2020-05-30] MEDS: THERAHONEY GEL 1.5 OZ TUBE TOP SCH ×2 (09:36→21:16)
[2020-05-30] MEDS: ACIDOPHILUS/BULGARICUS CHEW TAB GT SCH ×2 (09:36→21:16)
[2020-05-30] MEDS: SODIUM HYPOCHLORITE 0.125% (QUARTER STRENGTH) 473 ML BOTTLE TP SCH ×2 (09:36→21:16)
[2020-05-30] MEDS: SERTRALINE 25 MG GT SCH (09:36)
--- NOTE | 2020-05-30 11:00 | NUR ---
ZOOM TIME WITH DTR. RODRIGUEZ 5 MIN.,PT. WAS HAPPY.
[2020-05-30 20:00] VITALS: BP 101/51
[2020-05-30] MEDS: JEVITY 1.2 1000 ML LIQUID GT PRN (21:05)
[2020-05-30] MEDS: TEMAZEPAM 7.5 MG CAPSULE GT PRN (21:16)
[2020-05-30] MEDS: SIMVASTATIN 10 MG TABLET GT SCH (21:16)
[2020-05-30] MEDS: ASCORBIC ACID 500 MG TABLET GT SCH (21:16)
[2020-05-30] MEDS: MULTIVIT, IRON, MIN NO. 8, FA TABLET GT SCH (21:16)
[2020-05-30] MEDS: ESTROGENS,CONJU VAGINAL CREAM 42.5 GM TUBE VG SCH (21:16)
[2020-05-31] MEDS: ALBUTEROL SULFATE 2.5 MG/3 ML NEBU NEB SCH ×6 (02:40→23:10)
[2020-05-31] MEDS: IPRATROPIUM BROMIDE 0.5 MG/2.5 ML NEBU NEB SCH ×6 (02:40→23:10)
[2020-05-31] MEDS: ARGININE/GLUTAMINE/CALCIUM BMB 1 EACH POWD.PACK GT SCH ×2 (05:23→17:10)
[2020-05-31] MEDS: PROTEIN SUPPLEMENT (PROSTAT) 30 ML LIQUID GT SCH ×3 (05:24→21:19)
[2020-05-31] MEDS: OMEPRAZOLE 20 MG CAPSULE.DR GT SCH (05:24)
[2020-05-31] MEDS: BACLOFEN 10 MG TABLET GT SCH ×4 (05:24→23:18)
[2020-05-31 07:56] VITALS: BP 106/70
[2020-05-31] MEDS: SODIUM HYPOCHLORITE 0.125% (QUARTER STRENGTH) 473 ML BOTTLE TP SCH ×2 (08:14→21:19)
[2020-05-31] MEDS: THERAHONEY GEL 1.5 OZ TUBE TOP SCH ×2 (08:14→21:19)
[2020-05-31] MEDS: COD LIVER OIL/ZINC OXIDE OINT 113 GM TUBE TOP SCH ×2 (08:14→21:19)
[2020-05-31] MEDS: ACETAMINOPHEN 650 MG/20.3 ML LIQUID UDC GT SCH (08:14)
[2020-05-31] MEDS: SERTRALINE 25 MG GT SCH (08:14)
[2020-05-31] MEDS: ACIDOPHILUS/BULGARICUS CHEW TAB GT SCH ×2 (08:14→21:19)
[2020-05-31] MEDS: HYDROGEN PEROXIDE 3% 118 ML BOTTLE TP SCH ×2 (09:24→20:46)
[2020-05-31 20:48] VITALS: BP 116/54
[2020-05-31] MEDS: ASCORBIC ACID 500 MG TABLET GT SCH (21:19)
[2020-05-31] MEDS: MULTIVIT, IRON, MIN NO. 8, FA TABLET GT SCH (21:19)
[2020-05-31] MEDS: SIMVASTATIN 10 MG TABLET GT SCH (21:19)
[2020-05-31] MEDS: JEVITY 1.2 1000 ML LIQUID GT PRN (21:19)
[2020-05-31] MEDS: TEMAZEPAM 7.5 MG CAPSULE GT PRN (21:19)
[2020-05-31] MEDS: ESTROGENS,CONJU VAGINAL CREAM 42.5 GM TUBE VG SCH (21:19)
[2020-06-01] MEDS: IPRATROPIUM BROMIDE 0.5 MG/2.5 ML NEBU NEB SCH ×6 (03:03→23:10)
[2020-06-01] MEDS: ALBUTEROL SULFATE 2.5 MG/3 ML NEBU NEB SCH ×6 (03:03→23:10)
[2020-06-01] MEDS: ARGININE/GLUTAMINE/CALCIUM BMB 1 EACH POWD.PACK GT SCH ×2 (05:11→18:07)
[2020-06-01] MEDS: OMEPRAZOLE 20 MG CAPSULE.DR GT SCH (05:11)
[2020-06-01] MEDS: BACLOFEN 10 MG TABLET GT SCH ×4 (05:11→23:29)
[2020-06-01] MEDS: PROTEIN SUPPLEMENT (PROSTAT) 30 ML LIQUID GT SCH ×3 (05:11→21:22)
[2020-06-01 07:51] VITALS: BP 105/50
[2020-06-01] MEDS: ACETAMINOPHEN 650 MG/20.3 ML LIQUID UDC GT SCH (08:41)
[2020-06-01] MEDS: ACIDOPHILUS/BULGARICUS CHEW TAB GT SCH ×2 (08:42→21:21)
[2020-06-01] MEDS: SERTRALINE 25 MG GT SCH (08:42)
[2020-06-01] MEDS: THERAHONEY GEL 1.5 OZ TUBE TOP SCH ×2 (09:00→21:21)
[2020-06-01] MEDS: HYDROGEN PEROXIDE 3% 118 ML BOTTLE TP SCH ×2 (09:00→21:54)
[2020-06-01] MEDS: SODIUM HYPOCHLORITE 0.125% (QUARTER STRENGTH) 473 ML BOTTLE TP SCH ×2 (09:00→21:21)
[2020-06-01] MEDS: COD LIVER OIL/ZINC OXIDE OINT 113 GM TUBE TOP SCH ×2 (09:00→21:21)
[2020-06-01 09:21] LABS: BASOPHILS % (AUTO) 0.3 % (0.0-2.0); EOSINOPHILS # (AUTO) 0.2 K/uL (0.0-0.7); EOSINOPHILS % (AUTO) 2.7 % (0.0-7.0); HEMOGLOBIN 13.3 g/dL (10.9-14.3); LYMPHOCYTES # (AUTO) 1.9 K/uL (20.0-40.0); LYMPHOCYTES % (AUTO) 24.4 % (20.5-51.5); MEAN CORPUSCULAR HEMOGLOBIN 29.4 uug (24.7-32.8); MEAN CORPUSCULAR HGB CONC 32 g/dL (32.3-35.6); MEAN CORPUSCULAR VOLUME 90.9 fL (75.5-95.3); MONOCYTES # (AUTO) 0.6 K/uL (2.0-10.0); MONOCYTES % (AUTO) 8.1 % (0.0-11.0); NEUTROPHILS # (AUTO) 4.9 K/uL (1.8-8.9); NEUTROPHILS % (AUTO) 64.5 % (38.5-71.5); PLATELET COUNT (AUTO) 105 K/uL (179-408); RED BLOOD CELL COUNT(AUTO) 4.52 MIL/uL (3.63-4.92); WHITE BLOOD COUNT (AUTO) 7.6 K/uL (3.8-11.8)
[2020-06-01 09:34] LABS: BILIRUBIN,TOTAL 0.4 mg/dL (0.2-1.0); CREATININE 0.8 mg/dL (0.6-1.3); POTASSIUM 3.6 mmol/L (3.5-5.1); TOTAL PROTEIN, SERUM 7.7 g/dL (6.4-8.2)
--- NOTE | 2020-06-01 12:55 | NUR ---
SEEN AND EXAMINED BY AMY Lorenzo AND WITH NEW ORDERS CARRIED OUT.
[2020-06-01 20:51] VITALS: BP 113/62
[2020-06-01] MEDS: MULTIVIT, IRON, MIN NO. 8, FA TABLET GT SCH (21:21)
[2020-06-01] MEDS: ASCORBIC ACID 500 MG TABLET GT SCH (21:21)
[2020-06-01] MEDS: SIMVASTATIN 10 MG TABLET GT SCH (21:21)
[2020-06-01] MEDS: ESTROGENS,CONJU VAGINAL CREAM 42.5 GM TUBE VG SCH (21:21)
[2020-06-02] MEDS: ALBUTEROL SULFATE 2.5 MG/3 ML NEBU NEB SCH ×6 (03:01→23:13)
[2020-06-02] MEDS: IPRATROPIUM BROMIDE 0.5 MG/2.5 ML NEBU NEB SCH ×6 (03:01→23:13)
[2020-06-02] MEDS: BACLOFEN 10 MG TABLET GT SCH ×3 (05:21→17:54)
[2020-06-02] MEDS: JEVITY 1.2 1000 ML LIQUID GT PRN (05:21)
[2020-06-02] MEDS: PROTEIN SUPPLEMENT (PROSTAT) 30 ML LIQUID GT SCH ×3 (05:21→22:16)
[2020-06-02] MEDS: OMEPRAZOLE 20 MG CAPSULE.DR GT SCH (05:21)
[2020-06-02] MEDS: ARGININE/GLUTAMINE/CALCIUM BMB 1 EACH POWD.PACK GT SCH ×2 (05:21→17:54)
[2020-06-02] MEDS: HYDROGEN PEROXIDE 3% 118 ML BOTTLE TP SCH ×2 (07:33→21:50)
[2020-06-02 07:57] VITALS: BP 101/58
[2020-06-02] MEDS: SODIUM HYPOCHLORITE 0.125% (QUARTER STRENGTH) 473 ML BOTTLE TP SCH ×2 (08:42→20:47)
[2020-06-02] MEDS: ACETAMINOPHEN 650 MG/20.3 ML LIQUID UDC GT SCH (08:42)
[2020-06-02] MEDS: THERAHONEY GEL 1.5 OZ TUBE TOP SCH ×2 (08:42→20:47)
[2020-06-02] MEDS: COD LIVER OIL/ZINC OXIDE OINT 113 GM TUBE TOP SCH ×2 (08:42→20:47)
[2020-06-02] MEDS: SERTRALINE 25 MG GT SCH (08:42)
[2020-06-02] MEDS: ACIDOPHILUS/BULGARICUS CHEW TAB GT SCH ×2 (08:42→20:46)
[2020-06-02 19:49] VITALS: BP 105/45
--- NOTE | 2020-06-02 19:55 | NUR ---
New orders to Give COVID vaccine x 1 carried out.
[2020-06-02] MEDS: MULTIVIT, IRON, MIN NO. 8, FA TABLET GT SCH (20:47)
[2020-06-02] MEDS: SIMVASTATIN 10 MG TABLET GT SCH (20:47)
[2020-06-02] MEDS: ESTROGENS,CONJU VAGINAL CREAM 42.5 GM TUBE VG SCH (20:47)
[2020-06-02] MEDS: ASCORBIC ACID 500 MG TABLET GT SCH (20:47)
[2020-06-03] MEDS: ALBUTEROL SULFATE 2.5 MG/3 ML NEBU NEB SCH ×6 (03:02→22:51)
[2020-06-03] MEDS: IPRATROPIUM BROMIDE 0.5 MG/2.5 ML NEBU NEB SCH ×6 (03:02→22:51)
[2020-06-03] MEDS: JEVITY 1.2 1000 ML LIQUID GT PRN (04:15)
[2020-06-03] MEDS: PROTEIN SUPPLEMENT (PROSTAT) 30 ML LIQUID GT SCH ×3 (05:33→21:57)
[2020-06-03] MEDS: OMEPRAZOLE 20 MG CAPSULE.DR GT SCH (05:33)
[2020-06-03] MEDS: ARGININE/GLUTAMINE/CALCIUM BMB 1 EACH POWD.PACK GT SCH ×2 (05:33→17:27)
[2020-06-03] MEDS: BACLOFEN 10 MG TABLET GT SCH ×4 (05:33→17:27)
[2020-06-03 07:54] VITALS: BP 106/40
[2020-06-03] MEDS: ACETAMINOPHEN 650 MG/20.3 ML LIQUID UDC GT SCH (08:30)
[2020-06-03] MEDS: SERTRALINE 25 MG GT SCH (09:00)
[2020-06-03] MEDS: COD LIVER OIL/ZINC OXIDE OINT 113 GM TUBE TOP SCH ×2 (09:00→21:56)
[2020-06-03] MEDS: ACIDOPHILUS/BULGARICUS CHEW TAB GT SCH ×2 (09:00→21:56)
[2020-06-03] MEDS: SODIUM HYPOCHLORITE 0.125% (QUARTER STRENGTH) 473 ML BOTTLE TP SCH ×2 (09:00→21:57)
[2020-06-03] MEDS: THERAHONEY GEL 1.5 OZ TUBE TOP SCH ×2 (09:00→21:57)
[2020-06-03] MEDS: HYDROGEN PEROXIDE 3% 118 ML BOTTLE TP SCH ×2 (10:10→21:50)
--- NOTE | 2020-06-03 18:00 | NUR ---
Covid vaccine was given,no adverse reaction noted.Left message to Ludmilapt's daughter.
[2020-06-03 20:10] VITALS: BP 115/40
[2020-06-03] MEDS: MULTIVIT, IRON, MIN NO. 8, FA TABLET GT SCH (21:56)
[2020-06-03] MEDS: SIMVASTATIN 10 MG TABLET GT SCH (21:56)
[2020-06-03] MEDS: ASCORBIC ACID 500 MG TABLET GT SCH (21:56)
[2020-06-03] MEDS: ESTROGENS,CONJU VAGINAL CREAM 42.5 GM TUBE VG SCH (21:57)
[~2020-06-04] VITALS: Ht 152.4 cm; Wt 61.2 kg
[2020-06-04] MEDS: IPRATROPIUM BROMIDE 0.5 MG/2.5 ML NEBU NEB SCH ×6 (02:46→23:27)
[2020-06-04] MEDS: ALBUTEROL SULFATE 2.5 MG/3 ML NEBU NEB SCH ×6 (02:46→23:27)
[2020-06-04] MEDS: JEVITY 1.2 1000 ML LIQUID GT PRN (04:17)
[2020-06-04] MEDS: PROTEIN SUPPLEMENT (PROSTAT) 30 ML LIQUID GT SCH ×3 (06:04→22:42)
[2020-06-04] MEDS: BACLOFEN 10 MG TABLET GT SCH ×4 (06:04→17:08)
[2020-06-04] MEDS: OMEPRAZOLE 20 MG CAPSULE.DR GT SCH (06:04)
[2020-06-04] MEDS: ARGININE/GLUTAMINE/CALCIUM BMB 1 EACH POWD.PACK GT SCH ×2 (06:04→17:08)
--- NOTE | 2020-06-04 06:08 | NUR ---
no side effects noted from covid vaccine
[2020-06-04] MEDS: HYDROGEN PEROXIDE 3% 118 ML BOTTLE TP SCH ×2 (07:50→18:44)
[2020-06-04 07:54] VITALS: BP 110/49
[2020-06-04] MEDS: SERTRALINE 25 MG GT SCH (08:07)
[2020-06-04] MEDS: COD LIVER OIL/ZINC OXIDE OINT 113 GM TUBE TOP SCH ×2 (08:07→20:35)
[2020-06-04] MEDS: ACETAMINOPHEN 650 MG/20.3 ML LIQUID UDC GT SCH (08:07)
[2020-06-04] MEDS: SODIUM HYPOCHLORITE 0.125% (QUARTER STRENGTH) 473 ML BOTTLE TP SCH ×2 (08:07→20:35)
[2020-06-04] MEDS: THERAHONEY GEL 1.5 OZ TUBE TOP SCH ×2 (08:07→20:35)
[2020-06-04] MEDS: ACIDOPHILUS/BULGARICUS CHEW TAB GT SCH ×2 (08:07→20:35)
--- NOTE | 2020-06-04 18:39 | NUR ---
no adverse reaction noted from covid vaccine.
[2020-06-04 19:55] VITALS: BP 109/55
[2020-06-04] MEDS: MULTIVIT, IRON, MIN NO. 8, FA TABLET GT SCH (20:35)
[2020-06-04] MEDS: ESTROGENS,CONJU VAGINAL CREAM 42.5 GM TUBE VG SCH (20:35)
[2020-06-04] MEDS: SIMVASTATIN 10 MG TABLET GT SCH (20:35)
[2020-06-04] MEDS: ASCORBIC ACID 500 MG TABLET GT SCH (20:35)
[2020-06-04] MEDS: TEMAZEPAM 7.5 MG CAPSULE GT PRN (22:00)
[~2020-06-04 23:59] MED LIST changes: +ACETAMINOPHEN 650 MG SUPP.RECT RC PRN; +ACETAMINOPHEN 650 MG SUPP.RECT RC SCH; +ACETAMINOPHEN 650 MG/20 ML UDC- SA PATIENTS-FEVER ONLY GT PRN; +CEFTRIAXONE 1 G in IV DEXTROSE 5% 50 ML IV SCH; +COD LIVER OIL/ZINC OXIDE OINT 113 GM TUBE TOP PRN; +COD LIVER OIL/ZINC OXIDE OINT 113 GM TUBE TP PRN; +COD LIVER OIL/ZINC OXIDE OINT 113 GM TUBE TP SCH; +COVID-19 VACC,MRNA(MODERNA)/PF 100 MCG/0.5 ML VIAL IM ONE; +DEXTROSE IV PRN; +DIATR MEGLU/DIATRIZOATE SODIUM 30 ML BOTTLE PO ONE; +DOSING BY PHARMACY-MD TO SPECIFY MED/ROUTE XX PRN; +ESTROGENS,CONJU VAGINAL CREAM 42.5 GM TUBE VG SCH; +INFLUENZA VACCINE 2020-2021 0.5 ML DISP.SYRIN IM ONE; +IV D5 1/2 NS 1000 ML 1,000 ML IV PRN; +NORMAL SALINE IV ONE; +ONDANSETRON HCL 4 MG TABLET GT PRN; +PIPERACILLIN/TAZOBACTAM/D5W 50 ML IV SCH; +POLYVINYL ALCOHOL OPHT DROPS 15 ML BOTTLE EACHEYE PRN; +POTASSIUM CHLORIDE 20 MEQ POWDER PACKET GT ONE; +POTASSIUM CHLORIDE 20 MEQ in IV D5/ 0.9% NACL 1,000 ML IV PRN; +POTASSIUM CHLORIDE 50 ML IV SCH; +POTASSIUM CHLORIDE IV ONE; +SODIUM HYPOCHLORITE 0.125% (QUARTER STRENGTH) 473 ML BOTTLE TP PRN; +SODIUM HYPOCHLORITE 0.125% (QUARTER STRENGTH) 473 ML BOTTLE TP SCH; +SODIUM HYPOCHLORITE 0.25% (HALF STRENGTH) 480 ML BOTTLE TP PRN; +THERAHONEY GEL 1.5 OZ TUBE TOP PRN; +THERAHONEY GEL 1.5 OZ TUBE TOP SCH; +TPN BAG #1 IV SCH; +TPN BAG #10 IV SCH; +TPN BAG #2 IV SCH; +TPN BAG #3 IV SCH; +TPN BAG #4 IV SCH; +TPN BAG #5 IV SCH; +TPN BAG #6 IV SCH; +TPN BAG #7 IV SCH; +TPN BAG #8 IV SCH; +TPN/PPN PER PHARMACY IV PRN; +VANCOMYCIN FOR PO/GT/NG USE GT SCH; +VANCOMYCIN IV 1,000 MG in IV DEXTROSE 5% 250 ML IV ONE; +VANCOMYCIN IV 750 MG in IV DEXTROSE 5% 250 ML IV SCH; +ZOSYN PER PHARMACY XX PRN; +[UNRECOGNIZED DRUG - OTHER] IV PRN; +[UNRECOGNIZED DRUG - REMARK] IV PRN; +diphenhydrAMINE 25 MG/10 ML UDC GT PRN
--- NOTE | 2020-06-05 03:39 | NUR ---
Patient is afebrile, no signs of any adverse reactions noted from the COVID-19 vaccine.
[2020-06-05] MEDS: JEVITY 1.2 1000 ML LIQUID GT PRN (03:51)
[2020-06-05] MEDS: ALBUTEROL SULFATE 2.5 MG/3 ML NEBU NEB SCH ×6 (04:26→23:32)
[2020-06-05] MEDS: IPRATROPIUM BROMIDE 0.5 MG/2.5 ML NEBU NEB SCH ×6 (04:26→23:32)
[2020-06-05] MEDS: OMEPRAZOLE 20 MG CAPSULE.DR GT SCH (05:44)
[2020-06-05] MEDS: ARGININE/GLUTAMINE/CALCIUM BMB 1 EACH POWD.PACK GT SCH ×2 (05:44→18:23)
[2020-06-05] MEDS: BACLOFEN 10 MG TABLET GT SCH ×4 (05:44→18:23)
[2020-06-05] MEDS: PROTEIN SUPPLEMENT (PROSTAT) 30 ML LIQUID GT SCH ×3 (05:44→21:45)
[2020-06-05 07:47] VITALS: BP 96/49
[2020-06-05] MEDS: ACETAMINOPHEN 650 MG/20.3 ML LIQUID UDC GT SCH (08:43)
[2020-06-05] MEDS: THERAHONEY GEL 1.5 OZ TUBE TOP SCH ×2 (08:43→21:44)
[2020-06-05] MEDS: COD LIVER OIL/ZINC OXIDE OINT 113 GM TUBE TOP SCH ×2 (08:43→21:44)
[2020-06-05] MEDS: SODIUM HYPOCHLORITE 0.125% (QUARTER STRENGTH) 473 ML BOTTLE TP SCH ×2 (08:43→21:44)
[2020-06-05] MEDS: ACIDOPHILUS/BULGARICUS CHEW TAB GT SCH ×2 (08:43→21:44)
[2020-06-05] MEDS: SERTRALINE 25 MG GT SCH (08:43)
[2020-06-05] MEDS: HYDROGEN PEROXIDE 3% 118 ML BOTTLE TP SCH ×2 (09:00→21:51)
--- NOTE | 2020-06-05 18:49 | NUR ---
Pt afebrile. No s/s of any adverse reaction noted from covid 19 vaccine
[2020-06-05 20:31] VITALS: BP 103/86
[2020-06-05] MEDS: ASCORBIC ACID 500 MG TABLET GT SCH (21:44)
[2020-06-05] MEDS: MULTIVIT, IRON, MIN NO. 8, FA TABLET GT SCH (21:44)
[2020-06-05] MEDS: SIMVASTATIN 10 MG TABLET GT SCH (21:44)
[2020-06-05] MEDS: TEMAZEPAM 7.5 MG CAPSULE GT PRN (21:45)
[2020-06-05] MEDS: ESTROGENS,CONJU VAGINAL CREAM 42.5 GM TUBE VG SCH (21:45)
--- NOTE | 2020-06-05 23:18 | NUR ---
Patient is afebrile, no signs of adverse reaction from Covid-19 vaccine.
[2020-06-06] MEDS: BACLOFEN 10 MG TABLET GT SCH ×4 (00:40→18:01)
[2020-06-06] MEDS: IPRATROPIUM BROMIDE 0.5 MG/2.5 ML NEBU NEB SCH ×6 (03:12→23:12)
[2020-06-06] MEDS: ALBUTEROL SULFATE 2.5 MG/3 ML NEBU NEB SCH ×6 (03:12→23:12)
[2020-06-06] MEDS: JEVITY 1.2 1000 ML LIQUID GT PRN (03:49)
[2020-06-06] MEDS: PROTEIN SUPPLEMENT (PROSTAT) 30 ML LIQUID GT SCH ×3 (05:12→22:03)
[2020-06-06] MEDS: ARGININE/GLUTAMINE/CALCIUM BMB 1 EACH POWD.PACK GT SCH ×2 (05:12→18:01)
[2020-06-06] MEDS: OMEPRAZOLE 20 MG CAPSULE.DR GT SCH (05:12)
[2020-06-06 07:47] VITALS: BP 109/55
[2020-06-06] MEDS: ACETAMINOPHEN 650 MG/20.3 ML LIQUID UDC GT SCH (08:41)
[2020-06-06] MEDS: ACIDOPHILUS/BULGARICUS CHEW TAB GT SCH ×2 (08:53→21:00)
[2020-06-06] MEDS: COD LIVER OIL/ZINC OXIDE OINT 113 GM TUBE TOP SCH ×2 (08:53→21:00)
[2020-06-06] MEDS: THERAHONEY GEL 1.5 OZ TUBE TOP SCH ×2 (08:53→21:00)
[2020-06-06] MEDS: SODIUM HYPOCHLORITE 0.125% (QUARTER STRENGTH) 473 ML BOTTLE TP SCH ×2 (08:53→21:00)
[2020-06-06] MEDS: SERTRALINE 25 MG GT SCH (08:53)
[2020-06-06] MEDS: HYDROGEN PEROXIDE 3% 118 ML BOTTLE TP SCH ×2 (09:00→19:39)
--- NOTE | 2020-06-06 18:41 | NUR ---
no rashes or adverse reaction from moderna covid vaccine observed.
[2020-06-06 20:04] VITALS: BP 102/70
[2020-06-06] MEDS: MULTIVIT, IRON, MIN NO. 8, FA TABLET GT SCH (21:00)
[2020-06-06] MEDS: ESTROGENS,CONJU VAGINAL CREAM 42.5 GM TUBE VG SCH (21:00)
[2020-06-06] MEDS: ASCORBIC ACID 500 MG TABLET GT SCH (21:00)
[2020-06-06] MEDS: SIMVASTATIN 10 MG TABLET GT SCH (21:00)
[2020-06-06] MEDS: TEMAZEPAM 7.5 MG CAPSULE GT PRN (22:03)
[2020-06-07] MEDS: BACLOFEN 10 MG TABLET GT SCH ×4 (00:40→17:28)
[2020-06-07] MEDS: JEVITY 1.2 1000 ML LIQUID GT PRN (03:19)
[2020-06-07] MEDS: IPRATROPIUM BROMIDE 0.5 MG/2.5 ML NEBU NEB SCH ×6 (03:30→23:16)
[2020-06-07] MEDS: ALBUTEROL SULFATE 2.5 MG/3 ML NEBU NEB SCH ×6 (03:30→23:16)
[2020-06-07] MEDS: ARGININE/GLUTAMINE/CALCIUM BMB 1 EACH POWD.PACK GT SCH ×2 (05:14→17:28)
[2020-06-07] MEDS: PROTEIN SUPPLEMENT (PROSTAT) 30 ML LIQUID GT SCH ×3 (05:14→21:26)
[2020-06-07] MEDS: OMEPRAZOLE 20 MG CAPSULE.DR GT SCH (05:14)
[2020-06-07 08:19] VITALS: BP 107/46
[2020-06-07] MEDS: ACETAMINOPHEN 650 MG/20.3 ML LIQUID UDC GT SCH (08:30)
[2020-06-07] MEDS: COD LIVER OIL/ZINC OXIDE OINT 113 GM TUBE TP SCH ×2 (09:49→21:25)
[2020-06-07] MEDS: SODIUM HYPOCHLORITE 0.125% (QUARTER STRENGTH) 473 ML BOTTLE TP SCH ×2 (09:49→21:25)
[2020-06-07] MEDS: SERTRALINE 25 MG GT SCH (09:49)
[2020-06-07] MEDS: ACIDOPHILUS/BULGARICUS CHEW TAB GT SCH ×2 (09:49→21:25)
[2020-06-07] MEDS: THERAHONEY GEL 1.5 OZ TUBE TOP SCH ×2 (09:49→21:25)
[2020-06-07] MEDS: HYDROGEN PEROXIDE 3% 118 ML BOTTLE TP SCH ×2 (10:00→21:45)
--- NOTE | 2020-06-07 17:30 | NUR ---
NOTED PERINEAL EXCORIATION. MD NOTIFIED WITH NEW ORDER NOTED AND CARRIED OUT. DAUGHTER MADE AWARE.
[2020-06-07] MEDS: SIMVASTATIN 10 MG TABLET GT SCH (21:25)
[2020-06-07] MEDS: MULTIVIT, IRON, MIN NO. 8, FA TABLET GT SCH (21:25)
[2020-06-07] MEDS: ASCORBIC ACID 500 MG TABLET GT SCH (21:25)
[2020-06-07] MEDS: ESTROGENS,CONJU VAGINAL CREAM 42.5 GM TUBE VG SCH (21:26)
[2020-06-07 22:00] VITALS: BP 107/50
[2020-06-08] MEDS: BACLOFEN 10 MG TABLET GT SCH ×2 (00:08→05:57)
[2020-06-08] MEDS: IPRATROPIUM BROMIDE 0.5 MG/2.5 ML NEBU NEB SCH (03:05)
[2020-06-08] MEDS: ALBUTEROL SULFATE 2.5 MG/3 ML NEBU NEB SCH (03:05)
[2020-06-08] MEDS: PROTEIN SUPPLEMENT (PROSTAT) 30 ML LIQUID GT SCH (05:57)
[2020-06-08] MEDS: OMEPRAZOLE 20 MG CAPSULE.DR GT SCH (05:57)
[2020-06-08] MEDS: ARGININE/GLUTAMINE/CALCIUM BMB 1 EACH POWD.PACK GT SCH (05:57)
[2020-06-08] MEDS: JEVITY 1.2 1000 ML LIQUID GT PRN (06:04)
[2020-06-08 07:52] VITALS: BP 112/44
[2020-06-08 08:48] LABS: BILIRUBIN,TOTAL 0.5 mg/dL (0.2-1.0); POTASSIUM 4.2 mmol/L (3.5-5.1); TOTAL PROTEIN, SERUM 8.4 g/dL (6.4-8.2)
[2020-06-08 09:00] LABS: BASOPHILS % (AUTO) 0.3 % (0.0-2.0); EOSINOPHILS # (AUTO) 0.3 K/uL (0.0-0.7); EOSINOPHILS % (AUTO) 2.5 % (0.0-7.0); HEMATOCRIT 42.3 % (31.2-41.9); HEMOGLOBIN 13.7 g/dL (10.9-14.3); LYMPHOCYTES % (AUTO) 18.9 % (20.5-51.5); MEAN CORPUSCULAR HEMOGLOBIN 29.9 uug (24.7-32.8); MEAN CORPUSCULAR HGB CONC 33 g/dL (32.3-35.6); MONOCYTES # (AUTO) 0.6 K/uL (2.0-10.0); NEUTROPHILS # (AUTO) 7.7 K/uL (1.8-8.9); NEUTROPHILS % (AUTO) 72.3 % (38.5-71.5); PLATELET COUNT (AUTO) 157 K/uL (179-408); RED BLOOD CELL COUNT(AUTO) 4.59 MIL/uL (3.63-4.92); WHITE BLOOD COUNT (AUTO) 10.7 K/uL (3.8-11.8)
[2020-06-08 20:19] VITALS: BP 104/48
== END | disposition still patient (30) | DRG 981 ==
LOC: SA 06-05
PROVIDERS: ADMIT Internal Medicine; ATTEND Internal Medicine
PROC: 0KBP0ZZ Excision of Left Hip Muscle, Open Approach (ICD-10-PCS; principal; 2019-06-06)
PROC: 0KBN0ZZ Excision of Right Hip Muscle, Open Approach (ICD-10-PCS; 2019-06-06)
PROC: 0KBP0ZZ Excision of Left Hip Muscle, Open Approach (ICD-10-PCS; 2019-06-13)
PROC: 0KBN0ZZ Excision of Right Hip Muscle, Open Approach (ICD-10-PCS; 2019-06-13)
PROC: 0KBP0ZZ Excision of Left Hip Muscle, Open Approach (ICD-10-PCS; 2019-06-28)
PROC: 0KBN0ZZ Excision of Right Hip Muscle, Open Approach (ICD-10-PCS; 2019-06-28)
PROC: 0KBP0ZZ Excision of Left Hip Muscle, Open Approach (ICD-10-PCS; 2019-07-18)
PROC: 0KBN0ZZ Excision of Right Hip Muscle, Open Approach (ICD-10-PCS; 2019-07-18)
PROC: 0KBP0ZZ Excision of Left Hip Muscle, Open Approach (ICD-10-PCS; 2019-07-25)
PROC: 0KBN0ZZ Excision of Right Hip Muscle, Open Approach (ICD-10-PCS; 2019-07-25)
PROC: 0KBP0ZZ Excision of Left Hip Muscle, Open Approach (ICD-10-PCS; 2019-08-21)
PROC: 0KBN0ZZ Excision of Right Hip Muscle, Open Approach (ICD-10-PCS; 2019-08-21)
PROC: 05H933Z Insertion of Infusion Device into Right Brachial Vein, Percutaneous Approach (ICD-10-PCS; 2020-01-05)
PROC: 0KBP0ZZ Excision of Left Hip Muscle, Open Approach (ICD-10-PCS; 2020-04-02)
PROC: 0KBN0ZZ Excision of Right Hip Muscle, Open Approach (ICD-10-PCS; 2020-04-02)
DX: J96.11 Chronic respiratory failure with hypoxia (principal); L89.154 Pressure ulcer of sacral region, stage 4; G82.50 Quadriplegia, unspecified; E43 Unspecified severe protein-calorie malnutrition; G93.40 Encephalopathy, unspecified; G93.1 Anoxic brain damage, not elsewhere classified; D68.59 Other primary thrombophilia; I69.959 Hemiplegia and hemiparesis following unspecified cerebrovascular disease affecting unspecified side; Z99.11 Dependence on respirator [ventilator] status; Z16.19 Resistance to other specified beta lactam antibiotics; E87.0 Hyperosmolality and hypernatremia; E87.2 Acidosis; I69.254 Hemiplegia and hemiparesis following other nontraumatic intracranial hemorrhage affecting left non-dominant side; J98.11 Atelectasis; N39.0 Urinary tract infection, site not specified; L03.90 Cellulitis, unspecified; Z93.0 Tracheostomy status; I69.922 Dysarthria following unspecified cerebrovascular disease; I69.991 Dysphagia following unspecified cerebrovascular disease; Z93.1 Gastrostomy status; K21.9 Gastro-esophageal reflux disease without esophagitis; Z90.89 Acquired absence of other organs; E78.5 Hyperlipidemia, unspecified; F09 Unspecified mental disorder due to known physiological condition; F32.9 Major depressive disorder, single episode, unspecified; Z74.01 Bed confinement status; Z79.2 Long term (current) use of antibiotics; Z86.14 Personal history of Methicillin resistant Staphylococcus aureus infection; Z90.49 Acquired absence of other specified parts of digestive tract; K76.0 Fatty (change of) liver, not elsewhere classified; Z87.440 Personal history of urinary (tract) infections; Z79.899 Other long term (current) drug therapy; R13.10 Dysphagia, unspecified; Z66 Do not resuscitate; Z86.11 Personal history of tuberculosis; B96.4 Proteus (mirabilis) (morganii) as the cause of diseases classified elsewhere; E87.6 Hypokalemia; B96.5 Pseudomonas (aeruginosa) (mallei) (pseudomallei) as the cause of diseases classified elsewhere; D25.9 Leiomyoma of uterus, unspecified; K29.70 Gastritis, unspecified, without bleeding; N95.2 Postmenopausal atrophic vaginitis; L29.9 Pruritus, unspecified
CPT/HCPCS: 36415; 36600; 70030-TC; 71045; 73030; 73080; 74018; 83605; 83735; 84100; 84478; 84520; 85025; 85610; 85651; 87040; 87070; 87077; 87086; 89055; 90686; 93005; 94640; 94664; A4663; C1758; C9113; G0008; J0696; J1580; J2185; J2543; J3370; J3475; J3480; J3490; J3590; J7042; J7060; Q0162; Q0163; Q9963; U0003

== ENCOUNTER 2021-06-05 | Inpatient (IN) | END 2022-06-04 23:59 | disposition still patient (30) | DRG 981 | DX: J96.11 Chronic respiratory failure with hypoxia (principal); E43 Unspecified severe protein-calorie malnutrition; G82.50 Quadriplegia, unspecified; L89.154 Pressure ulcer of sacral region, stage 4; N17.0 Acute kidney failure with tubular necrosis; G93.49 Other encephalopathy; D68.59 Other primary thrombophilia; E87.0 Hyperosmolality and hypernatremia; F33.1 Major depressive disorder, recurrent, moderate; G93.40 Encephalopathy, unspecified; J98.11 Atelectasis; M46.28 Osteomyelitis of vertebra, sacral and sacrococcygeal region; N13.6 Pyonephrosis; B96.4 Proteus (mirabilis) (morganii) as the cause of diseases classified elsewhere; D25.9 Leiomyoma of uterus, unspecified; E11.9 Type 2 diabetes mellitus without complications; E78.5 Hyperlipidemia, unspecified; E86.0 Dehydration; E87.6 Hypokalemia; E88.09 Other disorders of plasma-protein metabolism, not elsewhere classified; I69.165 Other paralytic syndrome following nontraumatic intracerebral hemorrhage, bilateral; K21.9 Gastro-esophageal reflux disease without esophagitis; K76.0 Fatty (change of) liver, not elsewhere classified; N95.2 Postmenopausal atrophic vaginitis; R13.10 Dysphagia, unspecified; Z20.822 Contact with and (suspected) exposure to COVID-19; Z66 Do not resuscitate; Z74.01 Bed confinement status; Z86.11 Personal history of tuberculosis; Z86.19 Personal history of other infectious and parasitic diseases; Z87.442 Personal history of urinary calculi; Z87.440 Personal history of urinary (tract) infections; Z93.0 Tracheostomy status; Z93.1 Gastrostomy status ==

== ENCOUNTER 2022-05-15 11:26 | Outpatient (CLI) | payer MEDICARE, OTHER ==
[~2022-05-15 11:26] MED LIST changes: -ACETAMINOPHEN 650 MG SUPP.RECT RC PRN; -ACETAMINOPHEN 650 MG SUPP.RECT RC SCH; -ACETAMINOPHEN 650 MG/20 ML UDC- SA PATIENTS-FEVER ONLY GT PRN; -CEFTRIAXONE 1 G in IV DEXTROSE 5% 50 ML IV SCH; -COD LIVER OIL/ZINC OXIDE OINT 113 GM TUBE TOP PRN; -COD LIVER OIL/ZINC OXIDE OINT 113 GM TUBE TP PRN; -COD LIVER OIL/ZINC OXIDE OINT 113 GM TUBE TP SCH; -COVID-19 VACC,MRNA(MODERNA)/PF 100 MCG/0.5 ML VIAL IM ONE; -DEXTROSE IV PRN; -DIATR MEGLU/DIATRIZOATE SODIUM 30 ML BOTTLE PO ONE; -DOSING BY PHARMACY-MD TO SPECIFY MED/ROUTE XX PRN; -ESTROGENS,CONJU VAGINAL CREAM 42.5 GM TUBE VG SCH; -INFLUENZA VACCINE 2020-2021 0.5 ML DISP.SYRIN IM ONE; -IV D5 1/2 NS 1000 ML 1,000 ML IV PRN; -NORMAL SALINE IV ONE; -ONDANSETRON HCL 4 MG TABLET GT PRN; -PIPERACILLIN/TAZOBACTAM/D5W 50 ML IV SCH; -POLYVINYL ALCOHOL OPHT DROPS 15 ML BOTTLE EACHEYE PRN; -POTASSIUM CHLORIDE 20 MEQ POWDER PACKET GT ONE; -POTASSIUM CHLORIDE 20 MEQ in IV D5/ 0.9% NACL 1,000 ML IV PRN; -POTASSIUM CHLORIDE 50 ML IV SCH; -POTASSIUM CHLORIDE IV ONE; -SODIUM HYPOCHLORITE 0.125% (QUARTER STRENGTH) 473 ML BOTTLE TP PRN; -SODIUM HYPOCHLORITE 0.125% (QUARTER STRENGTH) 473 ML BOTTLE TP SCH; -SODIUM HYPOCHLORITE 0.25% (HALF STRENGTH) 480 ML BOTTLE TP PRN; -THERAHONEY GEL 1.5 OZ TUBE TOP PRN; -THERAHONEY GEL 1.5 OZ TUBE TOP SCH; -TPN BAG #1 IV SCH; -TPN BAG #10 IV SCH; -TPN BAG #2 IV SCH; -TPN BAG #3 IV SCH; -TPN BAG #4 IV SCH; -TPN BAG #5 IV SCH; -TPN BAG #6 IV SCH; -TPN BAG #7 IV SCH; -TPN BAG #8 IV SCH; -TPN/PPN PER PHARMACY IV PRN; -VANCOMYCIN FOR PO/GT/NG USE GT SCH; -VANCOMYCIN IV 1,000 MG in IV DEXTROSE 5% 250 ML IV ONE; -VANCOMYCIN IV 750 MG in IV DEXTROSE 5% 250 ML IV SCH; -ZOSYN PER PHARMACY XX PRN; -[UNRECOGNIZED DRUG - OTHER] IV PRN; -[UNRECOGNIZED DRUG - REMARK] IV PRN; -diphenhydrAMINE 25 MG/10 ML UDC GT PRN
[2022-05-16] MEDS ORDERED: ACET-2154 GT (08:19)
[2022-05-16] MEDS ORDERED: ACID1TAB12 GT (08:20)
[2022-05-16] MEDS ORDERED: ALBU2.5V13 NEB (08:22)
[2022-05-16] MEDS ORDERED: ASCO500C18 GT (08:22)
[2022-05-16] MEDS ORDERED: ARGI1POW17 GT (08:22)
[2022-05-16] MEDS ORDERED: NUT.237L30 GT (08:24)
[2022-05-16] MEDS ORDERED: ESTR42.5 VG (08:24)
[2022-05-16] MEDS ORDERED: HYDR-4209 GT (08:24)
[2022-05-16] MEDS ORDERED: IPRA0.2S6 NEB (08:26)
[2022-05-16] MEDS ORDERED: SERT25TA GT (08:26)
[2022-05-16] MEDS ORDERED: HYDR1SOL MC (08:26)
[2022-05-16] MEDS ORDERED: MULT-1094 GT (08:26)
[2022-05-16] MEDS ORDERED: OMEP20CA15 GT (08:27)
[2022-05-16] MEDS ORDERED: OMEG1CAP GT (08:27)
[2022-05-16] MEDS ORDERED: SIMV10TA2 GT (08:29)
[2022-05-16] MEDS ORDERED: VANC500V5 GT (08:29)
[2022-05-16] MEDS ORDERED: TEMA7.5C GT (08:29)
[2022-05-16] MEDS ORDERED: PROT946L GT (08:29)
[2022-05-16] MEDS ORDERED: SODI473S8 MC (08:31)
== END 2022-05-15 23:59 | disposition home or self-care (01) ==
LOC: RAD 11:26
PROVIDERS: ATTEND Nurse Practitioner Acute Care
DX: Z75.3 Unavailability and inaccessibility of health-care facilities (principal)

== ENCOUNTER 2022-05-16 02:33 | Inpatient (IN) | payer MEDICARE, OTHER ==
[~2022-05-16] VITALS: Ht 149.9 cm; Wt 56.4 kg
[2022-05-16] MEDS ORDERED: IV NORMAL SALINE 1000 ML BAG IV ONE (03:30)
[2022-05-16] MEDS ORDERED: VANCOMYCIN IV 1,000 MG in IV DEXTROSE 5% 250 ML IV ONE (03:45)
[2022-05-16] MEDS ORDERED: CEFTRIAXONE 1 G in IV DEXTROSE 5% 50 ML IV ONE (03:45)
[2022-05-16 03:54] LABS: HEMATOCRIT 34.6 % (31.2-41.9); MEAN CORPUSCULAR HEMOGLOBIN 30.4 uug (24.7-32.8); PLATELET COUNT (AUTO) 76 K/uL (179-408)
[2022-05-16 04:02] LABS: CARBON DIOXIDE 35 mmol/L (21-32); CHLORIDE 117 mmol/L (98-107); GLUCOSE 140 mg/dL (74-106); POTASSIUM 2.9 mmol/L (3.5-5.1); UREA NITROGEN, BLOOD 75 mg/dL (7-18)
[2022-05-16] MEDS ORDERED: VANCOMYCIN IV 200 ML ONE (04:14)
[2022-05-16] MEDS ORDERED: CEFTRIAXONE /D5W 50ML IVPB **ER PYXIS IV ONE (04:14)
[2022-05-16 04:18] LABS: ALANINE AMINOTRANSFERASE 19 U/L (14-59); ALKALINE PHOSPHATASE 66 U/L (50-136); ASPARTATE AMINOTRANSFERASE 18 U/L (15-37); BILIRUBIN,DIRECT 0.1 mg/dL (0.0-0.2); BILIRUBIN,TOTAL 0.4 mg/dL (0.2-1.0); TOTAL PROTEIN, SERUM 6.8 g/dL (6.4-8.2)
[2022-05-16] MEDS ORDERED: POTASSIUM CHLORIDE 50 ML IV ONE (04:30)
[2022-05-16 04:47] LABS: *BILIRUBIN,URIN NEGATIVE (NEGATIVE); *BLOOD, URINE 3+ (NEGATIVE); *COLOR,URINE YELLOW (YELLOW); *KETONES,URINE NEGATIVE (NEGATIVE); *UROBILINOGEN,URINE 0.2 E.U./dl (NORMAL); LEUKOCYTE ESTERASE ,URINE 3+ (NEGATIVE); NITRITE, URINE NEGATIVE (NEGATIVE); PH,URINE 7.5 (5.0-8.0); UGLUCOSE NEGATIVE (NEGATIVE)
[2022-05-16 04:48] LABS: *CLARITY,URINE CLOUDY (CLEAR)
[2022-05-16 04:55] LABS: RBC,URINE TNTC /HPF (0-3); WBC,URINE TNTC /HPF (0-3)
[2022-05-16 04:56] LABS: BACTERIA,URINE MANY /HPF (NONE SEEN); SQUAMOUS EPITHELIAL CELL,UR MODERATE /HPF (NONE SEEN)
[2022-05-16] MEDS ORDERED: Medication Not On Formulary EA (Acetaminophen 650 MG) GT PRN (05:30)
[2022-05-16] MEDS ORDERED: ONDANSETRON 4 MG/2 ML VIAL IV PRN (05:30)
[2022-05-16] MEDS ORDERED: ACETAMINOPHEN 325 MG TABLET PO PRN (05:30)
[2022-05-16] MEDS ORDERED: MAGNESIUM HYDROXIDE 30 ML LIQUID UDC PO PRN (05:30)
[2022-05-16] MEDS ORDERED: HYDROCORTISONE SOD SUCCINATE 100 MG/2 ML VIAL IV ONE ×3 (05:30→08:30)
[2022-05-16] MEDS ORDERED: IV D5W 1000ML 1,000 ML IV PRN (05:30)
[2022-05-16] MEDS ORDERED: REMEDY ESSENTIAL ZINC PASTE 113 GM TP PRN (05:30)
[2022-05-16] MEDS ORDERED: POTASSIUM CHLORIDE 50 ML ONE (06:34)
[2022-05-16] MEDS ORDERED: BACLOFEN 10 MG TABLET ONE ×2 (06:49→08:31)
[2022-05-16] MEDS ORDERED: ACETAMINOPHEN 650 MG/20.3 ML LIQUID UDC GT PRN (08:00)
[2022-05-16] MEDS ORDERED: ACET-2154 GT (08:19)
[2022-05-16] MEDS ORDERED: ACID1TAB12 GT (08:20)
[2022-05-16] MEDS ORDERED: ARGI1POW17 GT (08:22)
[2022-05-16] MEDS ORDERED: ALBU2.5V13 NEB (08:22)
[2022-05-16] MEDS ORDERED: ASCO500C18 GT (08:22)
[2022-05-16] MEDS ORDERED: ESTR42.5 VG (08:24)
[2022-05-16] MEDS ORDERED: NUT.237L30 GT (08:24)
[2022-05-16] MEDS ORDERED: HYDR-4209 GT (08:24)
[2022-05-16] MEDS ORDERED: SERT25TA GT (08:26)
[2022-05-16] MEDS ORDERED: HYDR1SOL MC (08:26)
[2022-05-16] MEDS ORDERED: IPRA0.2S6 NEB (08:26)
[2022-05-16] MEDS ORDERED: MULT-1094 GT (08:26)
[2022-05-16] MEDS ORDERED: OMEP20CA15 GT (08:27)
[2022-05-16] MEDS ORDERED: OMEG1CAP GT (08:27)
[2022-05-16] MEDS ORDERED: SIMV10TA2 GT (08:29)
[2022-05-16] MEDS ORDERED: PROT946L GT (08:29)
[2022-05-16] MEDS ORDERED: VANC500V5 GT (08:29)
[2022-05-16] MEDS ORDERED: TEMA7.5C GT (08:29)
[2022-05-16] MEDS ORDERED: SODI473S8 MC (08:31)
[2022-05-16] MEDS: BACLOFEN 10 MG TABLET GT SCH ×3 (08:40→17:14)
[2022-05-16] MEDS ORDERED: FAMOTIDINE 20 MG TABLET GT SCH (09:00)
[2022-05-16] MEDS ORDERED: ISONIAZID 300 MG TABLET GT SCH (09:00)
[2022-05-16 10:30] VITALS: BP 91/27
[2022-05-16 11:32] VITALS: BP 90/43
[2022-05-16] MEDS: CEFEPIME HCL 1 G in IV DEXTROSE 5% 50 ML IV SCH ×2 (11:38→21:15)
[2022-05-16] MEDS ORDERED: JEVITY 1.2 1000 ML LIQUID GT SCH (14:15)
[2022-05-16] MEDS ORDERED: POLYVINYL ALCOHOL OPHT DROPS 15 ML BOTTLE EACHEYE PRN (14:30)
[2022-05-16] MEDS ORDERED: TEMAZEPAM 7.5 MG CAPSULE GT PRN (14:30)
[2022-05-16] MEDS ORDERED: HYDROCODONE/APAP 5-325MG TABLET GT PRN (14:30)
[2022-05-16] MEDS: THERAHONEY GEL 1.5 OZ TUBE TOP SCH (15:30)
[2022-05-16] MEDS: GLUCERNA 1.2 1000ML LIQUID GT PRN (15:30)
[2022-05-16] MEDS: SODIUM HYPOCHLORITE 0.125% (QUARTER STRENGTH) 473 ML BOTTLE TP SCH (15:30)
[2022-05-16] MEDS: ALBUTEROL SULFATE 2.5 MG/ 0.5 ML NEBU NEB SCH ×3 (15:39→23:39)
[2022-05-16] MEDS: IPRATROPIUM BROMIDE 0.5 MG/2.5 ML NEBU NEB SCH ×3 (15:39→23:39)
[2022-05-16 16:01] VITALS: BP 90/36
[2022-05-16] MEDS ORDERED: SODIUM HYPOCHLORITE 0.125% (QUARTER STRENGTH) 473 ML BOTTLE TP SCH (17:00)
[2022-05-16] MEDS: OMEGA-3 FATTY ACIDS/FISH OIL CAPSULE GT SCH (17:14)
[2022-05-16 20:00] VITALS: BP 103/51
[2022-05-16] MEDS: POTASSIUM CHLORIDE 20 MEQ in IV D5 1/2 NS 1000 ML 1,000 ML IV PRN (20:15)
[2022-05-16] MEDS ORDERED: ACETAMINOPHEN 325 MG TABLET-SA PATIENTS-PAIN ONLY GT SCH (20:30)
[2022-05-16] MEDS ORDERED: Medication Not On Formulary EA (Pyridoxine Hcl (Vitamin B-6) 50 MG) GT SCH (21:00)
[2022-05-16] MEDS: ACETAMINOPHEN 650 MG/20.3 ML LIQUID UDC PO SCH (21:12)
[2022-05-16] MEDS: ACIDOPHILUS/BULGARICUS CHEW TAB GT SCH (21:12)
[2022-05-16] MEDS: SIMVASTATIN 10 MG TABLET GT SCH (21:12)
[2022-05-16] MEDS: PROTEIN SUPPLEMENT (PROSTAT) 30 ML LIQUID GT SCH (21:14)
[2022-05-17] VITALS: BP 101/47
[2022-05-17] MEDS: BACLOFEN 10 MG TABLET GT SCH ×5 (01:02→23:54)
[2022-05-17] MEDS ORDERED: VANCOMYCIN IV 750 MG in IV DEXTROSE 5% 250 ML IV SCH ×2 (02:00→04:00)
[2022-05-17] MEDS: ALBUTEROL SULFATE 2.5 MG/ 0.5 ML NEBU NEB SCH ×5 (03:11→19:21)
[2022-05-17] MEDS: IPRATROPIUM BROMIDE 0.5 MG/2.5 ML NEBU NEB SCH ×5 (03:11→19:21)
[2022-05-17 04:00] VITALS: BP 105/57
[2022-05-17] MEDS ORDERED: VANCOMYCIN 1000 MG VIAL ONE (04:03)
[2022-05-17] MEDS: POTASSIUM CHLORIDE 20 MEQ in IV D5 1/2 NS 1000 ML 1,000 ML IV PRN ×2 (05:39→17:49)
[2022-05-17] MEDS: PANTOPRAZOLE ORAL SUSPENSION 40 MG SUSPDR.PKT GT SCH (05:47)
[2022-05-17] MEDS: OMEGA-3 FATTY ACIDS/FISH OIL CAPSULE GT SCH ×2 (05:52→17:28)
[2022-05-17] MEDS: PROTEIN SUPPLEMENT (PROSTAT) 30 ML LIQUID GT SCH ×3 (05:52→22:07)
[2022-05-17 06:07] LABS: HEMATOCRIT 34.5 % (31.2-41.9); MEAN CORPUSCULAR HEMOGLOBIN 29.5 uug (24.7-32.8); MEAN CORPUSCULAR VOLUME 95.2 fL (75.5-95.3); PLATELET COUNT (AUTO) 86 K/uL (179-408)
[2022-05-17 06:28] LABS: CREATININE 0.8 mg/dL (0.6-1.3); MAGNESIUM 2.6 mg/dL (1.8-2.4); PHOSPHOROUS 2.9 mg/dL (2.5-4.9)
[2022-05-17 07:42] VITALS: BP 92/33
[2022-05-17] MEDS: CEFEPIME HCL 1 G in IV DEXTROSE 5% 50 ML IV SCH ×2 (08:46→20:37)
[2022-05-17] MEDS: ACIDOPHILUS/BULGARICUS CHEW TAB GT SCH ×2 (08:52→20:19)
[2022-05-17] MEDS: ACETAMINOPHEN 650 MG/20.3 ML LIQUID UDC PO SCH ×2 (08:52→20:18)
[2022-05-17] MEDS: THERAHONEY GEL 1.5 OZ TUBE TOP SCH (08:53)
[2022-05-17] MEDS: SODIUM HYPOCHLORITE 0.125% (QUARTER STRENGTH) 473 ML BOTTLE TP SCH (08:54)
[2022-05-17 09:05] LABS: POTASSIUM 2.8 mmol/L (3.5-5.1)
[2022-05-17 11:30] VITALS: BP 106/52
[2022-05-17] MEDS: SERTRALINE HCL 50 MG TABLET GT SCH (12:31)
[2022-05-17] MEDS: POTASSIUM CHLORIDE 20 MEQ POWDER PACKET GT SCH ×3 (15:18→20:19)
[2022-05-17 15:57] VITALS: BP 118/48
[2022-05-17] MEDS: GLUCERNA 1.2 1000ML LIQUID GT PRN (17:48)
[2022-05-17 20:00] VITALS: BP 98/57
[2022-05-17] MEDS: VANCOMYCIN IV 750 MG in IV DEXTROSE 5% 250 ML IV SCH (20:18)
[2022-05-17] MEDS: SIMVASTATIN 10 MG TABLET GT SCH (20:19)
[2022-05-18] VITALS (7 sets, daily range): BP systolic 94–115; BP diastolic 45–60
[2022-05-18] MEDS: IPRATROPIUM BROMIDE 0.5 MG/2.5 ML NEBU NEB SCH ×7 (00:25→23:19)
[2022-05-18] MEDS: ALBUTEROL SULFATE 2.5 MG/ 0.5 ML NEBU NEB SCH ×7 (00:25→23:19)
[2022-05-18] MEDS: POTASSIUM CHLORIDE 20 MEQ in IV D5 1/2 NS 1000 ML 1,000 ML IV PRN (03:30)
[2022-05-18] MEDS: BACLOFEN 10 MG TABLET GT SCH ×3 (06:20→18:41)
[2022-05-18] MEDS: PANTOPRAZOLE ORAL SUSPENSION 40 MG SUSPDR.PKT GT SCH (06:20)
[2022-05-18] MEDS: PROTEIN SUPPLEMENT (PROSTAT) 30 ML LIQUID GT SCH ×3 (06:20→21:13)
[2022-05-18] MEDS: OMEGA-3 FATTY ACIDS/FISH OIL CAPSULE GT SCH ×2 (06:21→18:41)
[2022-05-18 07:35] LABS: HEMATOCRIT 33.1 % (31.2-41.9); MEAN CORPUSCULAR VOLUME 98.2 fL (75.5-95.3); PLATELET COUNT (AUTO) 89 K/uL (179-408)
[2022-05-18 08:26] LABS: CREATININE 0.7 mg/dL (0.6-1.3); MAGNESIUM 1.9 mg/dL (1.8-2.4)
[2022-05-18] MEDS ORDERED: POTASSIUM CHLORIDE 20 MEQ POWDER PACKET GT ONE (08:30)
[2022-05-18] MEDS ORDERED: POTASSIUM CHLORIDE 50 ML IV SCH (08:30)
[2022-05-18 08:48] LABS: ABG BASE EXCESS -4.5 mmol/L; ABG HCO3 19.9 mmol/L; ABG PCO2 34.7 mmHg (35.0-45.0); ABG PH 7.377 (7.350-7.450); ABG PO2 80.3 mmHg (75.0-100.0); ABG SITE RIGHT RADIAL; ABG TOTAL HEMOGLOBIN 12.2 G/dL (12.0-16.0); COHb 0.3 % (0.5-1.5); MetHb 0.2 % (0.0-1.5); VENT MODE COOL AEROSOL
[2022-05-18] MEDS: ACETAMINOPHEN 650 MG/20.3 ML LIQUID UDC PO SCH ×2 (10:04→20:29)
[2022-05-18] MEDS: MIDODRINE HCL 5 MG TABLET PO SCH ×2 (10:07→20:30)
[2022-05-18] MEDS: ACIDOPHILUS/BULGARICUS CHEW TAB GT SCH ×2 (10:07→20:30)
[2022-05-18] MEDS ORDERED: SODIUM POLYSTYRENE SULFONATE 15 G/60 ML LIQUID UDC NG ONE (10:45)
[2022-05-18] MEDS ORDERED: SODIUM POLYSTYRENE SULFONATE 15 G/60 ML LIQUID UDC PO ONE (10:45)
[2022-05-18] MEDS: CEFEPIME HCL 1 G in IV DEXTROSE 5% 50 ML IV SCH ×2 (11:29→20:25)
[2022-05-18] MEDS: THERAHONEY GEL 1.5 OZ TUBE TOP SCH (11:29)
[2022-05-18] MEDS: SERTRALINE HCL 50 MG TABLET GT SCH (11:44)
[2022-05-18] MEDS: SODIUM HYPOCHLORITE 0.125% (QUARTER STRENGTH) 473 ML BOTTLE TP SCH (11:46)
[2022-05-18 11:57] LABS: EOSINOPHILS % (MANUAL) 11 % (0-8); LYMPHOCYTES % (MANUAL) 21 % (20-40); MONOCYTES % (MANUAL) 4 % (2-10); NEUTROPHILS % (MANUAL) 64 % (42-75)
[2022-05-18] MEDS: VANCOMYCIN IV 750 MG in IV DEXTROSE 5% 250 ML IV SCH (14:43)
[2022-05-18] MEDS ORDERED: SODIUM PHOSPHATE MM 15 MMOL in IV NORMAL SALINE 250 ML IV ONE (17:00)
[2022-05-18] MEDS: IV D5 1/2 NS 1000 ML 1,000 ML IV PRN (20:00)
[2022-05-18] MEDS: SIMVASTATIN 10 MG TABLET GT SCH (20:30)
[2022-05-19] VITALS: BP 97/46
[2022-05-19] MEDS: BACLOFEN 10 MG TABLET GT SCH ×5 (00:14→23:22)
[2022-05-19] MEDS: ALBUTEROL SULFATE 2.5 MG/ 0.5 ML NEBU NEB SCH ×6 (02:39→23:31)
[2022-05-19] MEDS: IPRATROPIUM BROMIDE 0.5 MG/2.5 ML NEBU NEB SCH ×6 (02:39→23:31)
[2022-05-19] MEDS: CEFEPIME HCL 1 G in IV DEXTROSE 5% 50 ML IV SCH ×3 (03:50→19:24)
[2022-05-19 04:00] VITALS: BP_SYST 97; BP_SYST 99; BP_DIAS 46; BP_DIAS 51
[2022-05-19] MEDS: OMEGA-3 FATTY ACIDS/FISH OIL CAPSULE GT SCH ×2 (05:07→17:32)
[2022-05-19] MEDS: PANTOPRAZOLE ORAL SUSPENSION 40 MG SUSPDR.PKT GT SCH (05:12)
[2022-05-19] MEDS: PROTEIN SUPPLEMENT (PROSTAT) 30 ML LIQUID GT SCH ×3 (05:50→21:09)
[2022-05-19] MEDS: IV D5 1/2 NS 1000 ML 1,000 ML IV PRN (05:50)
[2022-05-19 06:21] LABS: HEMATOCRIT 34.5 % (31.2-41.9); MEAN CORPUSCULAR VOLUME 95.5 fL (75.5-95.3); PLATELET COUNT (AUTO) 104 K/uL (179-408)
[2022-05-19 06:31] LABS: BILIRUBIN,TOTAL 0.2 mg/dL (0.2-1.0); CREATININE 0.7 mg/dL (0.6-1.3); MAGNESIUM 2.2 mg/dL (1.8-2.4); PHOSPHOROUS 3.3 mg/dL (2.5-4.9); POTASSIUM 3.4 mmol/L (3.5-5.1); TOTAL PROTEIN, SERUM 6.3 g/dL (6.4-8.2)
[2022-05-19 07:50] VITALS: BP 109/50
[2022-05-19] MEDS: VANCOMYCIN IV 750 MG in IV DEXTROSE 5% 250 ML IV SCH (08:26)
[2022-05-19] MEDS: THERAHONEY GEL 1.5 OZ TUBE TOP SCH (08:29)
[2022-05-19] MEDS: MIDODRINE HCL 5 MG TABLET PO SCH ×3 (08:29→21:00)
[2022-05-19] MEDS: ACIDOPHILUS/BULGARICUS CHEW TAB GT SCH ×2 (08:29→20:59)
[2022-05-19] MEDS: SODIUM HYPOCHLORITE 0.125% (QUARTER STRENGTH) 473 ML BOTTLE TP SCH (08:30)
[2022-05-19] MEDS: ACETAMINOPHEN 650 MG/20.3 ML LIQUID UDC PO SCH ×2 (08:53→20:59)
[2022-05-19] MEDS ORDERED: POTASSIUM CHLORIDE 20 MEQ POWDER PACKET GT ONE (09:30)
[2022-05-19 11:45] VITALS: BP 104/85
[2022-05-19] MEDS: SERTRALINE HCL 50 MG TABLET GT SCH (12:13)
[2022-05-19] MEDS: GLUCERNA 1.2 1000ML LIQUID GT PRN (12:14)
[2022-05-19 15:15] VITALS: BP 104/82
[2022-05-19 20:00] VITALS: BP 104/49
[2022-05-19] MEDS: SIMVASTATIN 10 MG TABLET GT SCH (21:00)
[2022-05-20] VITALS (8 sets, daily range): BP systolic 95–107; BP diastolic 40–56
[2022-05-20] MEDS: IPRATROPIUM BROMIDE 0.5 MG/2.5 ML NEBU NEB SCH ×4 (02:42→15:54)
[2022-05-20] MEDS: ALBUTEROL SULFATE 2.5 MG/ 0.5 ML NEBU NEB SCH ×4 (02:42→15:54)
[2022-05-20] MEDS: CEFEPIME HCL 1 G in IV DEXTROSE 5% 50 ML IV SCH ×2 (03:03→12:36)
[2022-05-20] MEDS: OMEGA-3 FATTY ACIDS/FISH OIL CAPSULE GT SCH (05:13)
[2022-05-20] MEDS: PANTOPRAZOLE ORAL SUSPENSION 40 MG SUSPDR.PKT GT SCH (05:13)
[2022-05-20] MEDS: BACLOFEN 10 MG TABLET GT SCH ×2 (05:13→12:36)
[2022-05-20] MEDS: MIDODRINE HCL 5 MG TABLET PO SCH ×2 (05:14→12:37)
[2022-05-20] MEDS: PROTEIN SUPPLEMENT (PROSTAT) 30 ML LIQUID GT SCH ×2 (05:27→12:36)
[2022-05-20] MEDS: ACIDOPHILUS/BULGARICUS CHEW TAB GT SCH (09:19)
[2022-05-20] MEDS: ACETAMINOPHEN 650 MG/20.3 ML LIQUID UDC PO SCH (09:19)
[2022-05-20] MEDS: THERAHONEY GEL 1.5 OZ TUBE TOP SCH (09:20)
[2022-05-20] MEDS: SODIUM HYPOCHLORITE 0.125% (QUARTER STRENGTH) 473 ML BOTTLE TP SCH (09:22)
[2022-05-20] MEDS ORDERED: MIDO5TAB4 PO (12:09)
[2022-05-20] MEDS ORDERED: CEFE1PIG3 IV ×2 (12:09)
[2022-05-20] MEDS: SERTRALINE HCL 50 MG TABLET GT SCH (12:36)
[2022-05-20] MEDS: GLUCERNA 1.2 1000ML LIQUID GT PRN (12:37)
[2022-05-20] MEDS ORDERED: CEFTRIAXONE 1 G in IV DEXTROSE 5% 50 ML IV SCH (17:30)
== END 2022-05-20 16:25 | DRG 871 ==
LOC: ER 02:37 → TELE-TD3 07:55
PROVIDERS: ADMIT Nurse Practitioner Acute Care; ATTEND Internal Medicine
PROC: 02HV33Z Insertion of Infusion Device into Superior Vena Cava, Percutaneous Approach (ICD-10-PCS; principal; 2022-05-16)
PROC: B548ZZA Ultrasonography of Superior Vena Cava, Guidance (ICD-10-PCS; 2022-05-16)
DX: A41.9 Sepsis, unspecified organism (principal); E43 Unspecified severe protein-calorie malnutrition; L89.154 Pressure ulcer of sacral region, stage 4; R53.2 Functional quadriplegia; N17.0 Acute kidney failure with tubular necrosis; J69.0 Pneumonitis due to inhalation of food and vomit; G92.8 Other toxic encephalopathy; J96.11 Chronic respiratory failure with hypoxia; Z99.11 Dependence on respirator [ventilator] status; E87.0 Hyperosmolality and hypernatremia; J98.11 Atelectasis; N13.6 Pyonephrosis; Z16.24 Resistance to multiple antibiotics; M46.28 Osteomyelitis of vertebra, sacral and sacrococcygeal region; N12 Tubulo-interstitial nephritis, not specified as acute or chronic; D68.69 Other thrombophilia; Z66 Do not resuscitate; Z20.822 Contact with and (suspected) exposure to COVID-19; E86.0 Dehydration; D69.6 Thrombocytopenia, unspecified; F32.A Depression, unspecified; E78.5 Hyperlipidemia, unspecified; Z86.15 Personal history of latent tuberculosis infection; Z86.73 Personal history of transient ischemic attack (TIA), and cerebral infarction without residual deficits; Z87.440 Personal history of urinary (tract) infections; Z93.0 Tracheostomy status; Z93.1 Gastrostomy status; Z87.442 Personal history of urinary calculi; Z90.49 Acquired absence of other specified parts of digestive tract; R13.10 Dysphagia, unspecified; E87.6 Hypokalemia; E11.69 Type 2 diabetes mellitus with other specified complication; Z74.01 Bed confinement status; E83.39 Other disorders of phosphorus metabolism; K76.0 Fatty (change of) liver, not elsewhere classified
CPT/HCPCS: 36415; 36600; 51702; 70030-TC; 71045; 71250; 83605; 83735; 84100; 84484; 85025; 85730; 87040; 87400; 93005; 94640; 99082-TC; A4663; A6209; A6213; G0378; J0692; J0696; J1720; J3370; J3480; J3490; J3590; J7040; J7050

== ENCOUNTER 2022-06-05 | Inpatient (IN) | payer MEDICARE, OTHER ==
[~2022-06-05] VITALS: Ht 149.9 cm; Wt 50.8 kg
[~2022-06-05] MED LIST changes: +ACET-2154 GT; -ACET160O10 GT; +ACID1TAB12 GT; +ALBU2.5V13 NEB; +ARGI1POW17 GT; +ASCO500C18 GT; -BACL10TA GT; +CEFE1PIG3 IV; +ESTR42.5 VG; -FAMO20TA8 GT; +HYDR-4209 GT; +HYDR1SOL MC; +IPRA0.2S6 NEB; -ISON300T19 GT; +MIDO5TAB4 PO; +MULT-1094 GT; +NUT.237L30 GT; +OMEG1CAP GT; +OMEP20CA15 GT; +PROT946L GT; -PYRI50CA GT; +SERT25TA GT; +SIMV10TA2 GT; +SODI473S8 MC; +TEMA7.5C GT
[2022-06-07] VITALS (12 sets, daily range): TEMP 99–99.3; O2SAT 96–99
[2022-06-07] MEDS: IPRATROPIUM BROMIDE 0.5 MG/2.5 ML NEBU NEB SCH ×5 (07:35→23:01)
[2022-06-07] MEDS: ALBUTEROL SULFATE 2.5 MG/3 ML NEBU NEB SCH ×5 (07:35→23:01)
[2022-06-07] MEDS ORDERED: REMEDY ESSENTIAL ZINC PASTE 113 GM TOP PRN (08:45)
[2022-06-07] MEDS ORDERED: SODIUM HYPOCHLORITE 0.125% (QUARTER STRENGTH) 473 ML BOTTLE TP PRN (08:45)
[2022-06-07] MEDS ORDERED: POLYVINYL ALCOHOL OPHT DROPS 15 ML BOTTLE EACHEYE PRN (08:45)
[2022-06-07] MEDS ORDERED: ACETAMINOPHEN 650 MG/20 ML UDC- SA PATIENTS-FEVER ONLY GT PRN (08:45)
[2022-06-07] MEDS ORDERED: REMEDY ESSENTIAL ZINC PASTE 113 GM TP PRN (08:45)
[2022-06-07] MEDS: HYDROGEN PEROXIDE 3% 118 ML BOTTLE TP SCH ×2 (09:12→21:35)
[2022-06-07] MEDS: REMEDY ESSENTIAL ZINC PASTE 113 GM TOP SCH ×2 (09:15→17:44)
[2022-06-07] MEDS: ACETAMINOPHEN 650 MG/20.3 ML LIQUID UDC GT SCH ×2 (09:15→20:46)
[2022-06-07] MEDS: ACIDOPHILUS/BULGARICUS CHEW TAB GT SCH ×2 (09:15→20:46)
[2022-06-07] MEDS: MEDIHONEY= THERAHONEY 1.5 OZ TUBE TOP SCH ×2 (09:15→20:47)
[2022-06-07] MEDS: REMEDY ESSENTIAL ZINC PASTE 113 GM TP SCH ×3 (09:16→20:47)
[2022-06-07] MEDS: SODIUM HYPOCHLORITE 0.125% (QUARTER STRENGTH) 473 ML BOTTLE TP SCH ×2 (09:16→17:44)
[2022-06-07] MEDS: BACLOFEN 10 MG TABLET GT SCH ×2 (12:48→17:46)
[2022-06-07] MEDS: MIDODRINE HCL 5 MG TABLET GT SCH ×2 (12:48→22:00)
[2022-06-07] MEDS: SERTRALINE 25MG TABLET GT SCH (12:48)
[2022-06-07] MEDS: GLUCERNA 1.2 1000ML LIQUID GT PRN (13:05)
[2022-06-07] MEDS: PROTEIN SUPPLEMENT (PROSTAT) 30 ML LIQUID GT SCH ×2 (14:58→22:00)
[2022-06-07] MEDS: OMEGA-3 FATTY ACIDS/FISH OIL CAPSULE GT SCH (17:43)
[2022-06-07] MEDS: ARGININE/GLUTAMINE/CALCIUM BMB 1 EACH POWD.PACK GT SCH (17:43)
[2022-06-07] MEDS ORDERED: ACETAMINOPHEN 650 MG/20.3 ML LIQUID UDC GT SCH (20:30)
[2022-06-07] MEDS: ESTROGENS,CONJU VAGINAL CREAM 42.5 GM TUBE VG SCH (20:47)
[2022-06-07] MEDS: MULTIVIT, IRON, MIN NO. 8, FA TABLET GT SCH (20:47)
[2022-06-07] MEDS: ASCORBIC ACID 500 MG TABLET GT SCH (20:47)
[2022-06-07] MEDS: SIMVASTATIN 10 MG TABLET GT SCH (20:47)
[2022-06-08] VITALS (14 sets, daily range): TEMP 97.5–97.9; O2SAT 97–99
[2022-06-08] MEDS: BACLOFEN 10 MG TABLET GT SCH ×4 (00:15→17:08)
[2022-06-08] MEDS: IPRATROPIUM BROMIDE 0.5 MG/2.5 ML NEBU NEB SCH ×6 (03:05→23:18)
[2022-06-08] MEDS: ALBUTEROL SULFATE 2.5 MG/3 ML NEBU NEB SCH ×6 (03:05→23:18)
[2022-06-08] MEDS: OMEPRAZOLE 20 MG CAPSULE.DR GT SCH (05:47)
[2022-06-08] MEDS: OMEGA-3 FATTY ACIDS/FISH OIL CAPSULE GT SCH ×2 (05:47→17:08)
[2022-06-08] MEDS: ARGININE/GLUTAMINE/CALCIUM BMB 1 EACH POWD.PACK GT SCH ×2 (05:47→17:08)
[2022-06-08] MEDS: MIDODRINE HCL 5 MG TABLET GT SCH ×3 (05:48→21:36)
[2022-06-08] MEDS: PROTEIN SUPPLEMENT (PROSTAT) 30 ML LIQUID GT SCH ×3 (05:48→21:37)
[2022-06-08] MEDS: HYDROGEN PEROXIDE 3% 118 ML BOTTLE TP SCH ×2 (09:00→19:38)
[2022-06-08] MEDS: ACETAMINOPHEN 650 MG/20.3 ML LIQUID UDC GT SCH ×2 (09:25→20:30)
[2022-06-08] MEDS: SODIUM HYPOCHLORITE 0.125% (QUARTER STRENGTH) 473 ML BOTTLE TP SCH ×2 (09:28→17:08)
[2022-06-08] MEDS: REMEDY ESSENTIAL ZINC PASTE 113 GM TOP SCH ×2 (09:28→17:08)
[2022-06-08] MEDS: MEDIHONEY= THERAHONEY 1.5 OZ TUBE TOP SCH ×2 (09:28→21:35)
[2022-06-08] MEDS: REMEDY ESSENTIAL ZINC PASTE 113 GM TP SCH ×3 (09:28→21:35)
[2022-06-08] MEDS: ACIDOPHILUS/BULGARICUS CHEW TAB GT SCH ×2 (09:28→21:35)
[2022-06-08] MEDS: SERTRALINE 25MG TABLET GT SCH (12:56)
[2022-06-08] MEDS: GLUCERNA 1.2 1000ML LIQUID GT PRN (16:52)
[2022-06-08] MEDS: TEMAZEPAM 7.5 MG CAPSULE GT PRN (21:30)
[2022-06-08] MEDS: MULTIVIT, IRON, MIN NO. 8, FA TABLET GT SCH (21:35)
[2022-06-08] MEDS: SIMVASTATIN 10 MG TABLET GT SCH (21:35)
[2022-06-08] MEDS: ASCORBIC ACID 500 MG TABLET GT SCH (21:35)
[2022-06-08] MEDS: ESTROGENS,CONJU VAGINAL CREAM 42.5 GM TUBE VG SCH (21:35)
[2022-06-09] VITALS (12 sets, daily range): TEMP 97.5–98; O2SAT 97–99
[2022-06-09] MEDS: BACLOFEN 10 MG TABLET GT SCH ×5 (00:46→23:14)
[2022-06-09] MEDS: IPRATROPIUM BROMIDE 0.5 MG/2.5 ML NEBU NEB SCH ×6 (03:42→23:30)
[2022-06-09] MEDS: ALBUTEROL SULFATE 2.5 MG/3 ML NEBU NEB SCH ×6 (03:42→23:30)
[2022-06-09] MEDS: HYDROCODONE/APAP 5-325MG TABLET GT PRN (05:30)
[2022-06-09] MEDS: ARGININE/GLUTAMINE/CALCIUM BMB 1 EACH POWD.PACK GT SCH ×2 (06:46→18:14)
[2022-06-09] MEDS: OMEGA-3 FATTY ACIDS/FISH OIL CAPSULE GT SCH ×2 (06:46→18:14)
[2022-06-09] MEDS: OMEPRAZOLE 20 MG CAPSULE.DR GT SCH (06:46)
[2022-06-09] MEDS: PROTEIN SUPPLEMENT (PROSTAT) 30 ML LIQUID GT SCH ×3 (06:46→21:38)
[2022-06-09] MEDS: MIDODRINE HCL 5 MG TABLET GT SCH ×3 (06:46→21:37)
[2022-06-09] MEDS: ACETAMINOPHEN 650 MG/20.3 ML LIQUID UDC GT SCH ×2 (08:58→20:24)
[2022-06-09] MEDS: ACIDOPHILUS/BULGARICUS CHEW TAB GT SCH ×2 (08:58→20:24)
[2022-06-09] MEDS: MEDIHONEY= THERAHONEY 1.5 OZ TUBE TOP SCH ×2 (09:00→20:26)
[2022-06-09] MEDS: REMEDY ESSENTIAL ZINC PASTE 113 GM TP SCH ×5 (09:50→20:33)
[2022-06-09] MEDS: HYDROGEN PEROXIDE 3% 118 ML BOTTLE TP SCH ×2 (09:54→21:41)
[2022-06-09] MEDS ORDERED: REMEDY ESSENTIAL ZINC PASTE 113 GM TP PRN (10:00)
[2022-06-09] MEDS ORDERED: SODIUM HYPOCHLORITE 0.125% (QUARTER STRENGTH) 473 ML BOTTLE TP PRN (10:00)
[2022-06-09] MEDS: SODIUM HYPOCHLORITE 0.125% (QUARTER STRENGTH) 473 ML BOTTLE TP SCH ×2 (10:25→20:33)
[2022-06-09] MEDS: SERTRALINE 25MG TABLET GT SCH (12:20)
[2022-06-09] MEDS: SIMVASTATIN 10 MG TABLET GT SCH (20:24)
[2022-06-09] MEDS: ASCORBIC ACID 500 MG TABLET GT SCH (20:24)
[2022-06-09] MEDS: MULTIVIT, IRON, MIN NO. 8, FA TABLET GT SCH (20:24)
[2022-06-09] MEDS: ESTROGENS,CONJU VAGINAL CREAM 42.5 GM TUBE VG SCH (20:33)
[2022-06-09] MEDS: GLUCERNA 1.2 1000ML LIQUID GT PRN (20:34)
[2022-06-09] MEDS: TEMAZEPAM 7.5 MG CAPSULE GT PRN (23:15)
[2022-06-10] VITALS (14 sets, daily range): TEMP 98.3–98.5; O2SAT 97–99
[2022-06-10] MEDS: ALBUTEROL SULFATE 2.5 MG/3 ML NEBU NEB SCH ×6 (03:30→23:30)
[2022-06-10] MEDS: IPRATROPIUM BROMIDE 0.5 MG/2.5 ML NEBU NEB SCH ×6 (03:30→23:30)
[2022-06-10] MEDS: BACLOFEN 10 MG TABLET GT SCH ×3 (05:24→18:25)
[2022-06-10] MEDS: PROTEIN SUPPLEMENT (PROSTAT) 30 ML LIQUID GT SCH ×3 (05:24→21:48)
[2022-06-10] MEDS: OMEPRAZOLE 20 MG CAPSULE.DR GT SCH (05:24)
[2022-06-10] MEDS: ARGININE/GLUTAMINE/CALCIUM BMB 1 EACH POWD.PACK GT SCH ×2 (05:24→18:25)
[2022-06-10] MEDS: MIDODRINE HCL 5 MG TABLET GT SCH ×3 (05:24→21:48)
[2022-06-10] MEDS: OMEGA-3 FATTY ACIDS/FISH OIL CAPSULE GT SCH ×2 (05:24→18:25)
[2022-06-10] MEDS: HYDROCODONE/APAP 5-325MG TABLET GT PRN (05:25)
[2022-06-10] MEDS: ACETAMINOPHEN 650 MG/20.3 ML LIQUID UDC GT SCH ×2 (08:50→20:51)
[2022-06-10] MEDS: ACIDOPHILUS/BULGARICUS CHEW TAB GT SCH ×2 (08:51→20:51)
[2022-06-10] MEDS: MEDIHONEY= THERAHONEY 1.5 OZ TUBE TOP SCH ×2 (09:00→20:51)
[2022-06-10] MEDS: REMEDY ESSENTIAL ZINC PASTE 113 GM TP SCH ×5 (09:00→20:52)
[2022-06-10] MEDS: SODIUM HYPOCHLORITE 0.125% (QUARTER STRENGTH) 473 ML BOTTLE TP SCH ×2 (09:00→20:51)
[2022-06-10] MEDS: HYDROGEN PEROXIDE 3% 118 ML BOTTLE TP SCH ×2 (09:19→21:00)
[2022-06-10] MEDS: SERTRALINE 25MG TABLET GT SCH (12:50)
[2022-06-10] MEDS: SIMVASTATIN 10 MG TABLET GT SCH (20:51)
[2022-06-10] MEDS: ASCORBIC ACID 500 MG TABLET GT SCH (20:51)
[2022-06-10] MEDS: MULTIVIT, IRON, MIN NO. 8, FA TABLET GT SCH (20:51)
[2022-06-10] MEDS: ESTROGENS,CONJU VAGINAL CREAM 42.5 GM TUBE VG SCH (20:52)
[2022-06-11] VITALS (12 sets, daily range): TEMP 97.7–98; O2SAT 96–99
[2022-06-11] MEDS: GLUCERNA 1.2 1000ML LIQUID GT PRN (01:59)
[2022-06-11] MEDS: ALBUTEROL SULFATE 2.5 MG/3 ML NEBU NEB SCH ×6 (03:50→23:32)
[2022-06-11] MEDS: IPRATROPIUM BROMIDE 0.5 MG/2.5 ML NEBU NEB SCH ×6 (03:50→23:32)
[2022-06-11] MEDS: BACLOFEN 10 MG TABLET GT SCH ×5 (05:28→23:02)
[2022-06-11] MEDS: OMEGA-3 FATTY ACIDS/FISH OIL CAPSULE GT SCH ×2 (05:28→17:50)
[2022-06-11] MEDS: ARGININE/GLUTAMINE/CALCIUM BMB 1 EACH POWD.PACK GT SCH ×2 (05:28→17:50)
[2022-06-11] MEDS: OMEPRAZOLE 20 MG CAPSULE.DR GT SCH (05:28)
[2022-06-11] MEDS: PROTEIN SUPPLEMENT (PROSTAT) 30 ML LIQUID GT SCH ×3 (05:29→21:49)
[2022-06-11] MEDS: MIDODRINE HCL 5 MG TABLET GT SCH ×3 (05:29→21:49)
[2022-06-11] MEDS: ACETAMINOPHEN 650 MG/20.3 ML LIQUID UDC GT SCH ×2 (08:30→20:30)
[2022-06-11] MEDS: HYDROGEN PEROXIDE 3% 118 ML BOTTLE TP SCH ×2 (08:46→21:55)
[2022-06-11] MEDS: MEDIHONEY= THERAHONEY 1.5 OZ TUBE TOP SCH ×2 (09:46→21:49)
[2022-06-11] MEDS: ACIDOPHILUS/BULGARICUS CHEW TAB GT SCH ×2 (09:46→21:48)
[2022-06-11] MEDS: SODIUM HYPOCHLORITE 0.125% (QUARTER STRENGTH) 473 ML BOTTLE TP SCH ×2 (09:46→21:49)
[2022-06-11] MEDS: REMEDY ESSENTIAL ZINC PASTE 113 GM TP SCH ×5 (09:46→21:49)
[2022-06-11] MEDS: SERTRALINE 25MG TABLET GT SCH (12:00)
[2022-06-11] MEDS: ESTROGENS,CONJU VAGINAL CREAM 42.5 GM TUBE VG SCH (21:49)
[2022-06-11] MEDS: MULTIVIT, IRON, MIN NO. 8, FA TABLET GT SCH (21:49)
[2022-06-11] MEDS: ASCORBIC ACID 500 MG TABLET GT SCH (21:49)
[2022-06-11] MEDS: SIMVASTATIN 10 MG TABLET GT SCH (21:49)
[2022-06-11] MEDS: TEMAZEPAM 7.5 MG CAPSULE GT PRN (21:50)
[2022-06-12] VITALS (11 sets, daily range): TEMP 98.1–99.1; O2SAT 97–99
[2022-06-12] MEDS: ALBUTEROL SULFATE 2.5 MG/3 ML NEBU NEB SCH ×6 (03:25→23:56)
[2022-06-12] MEDS: IPRATROPIUM BROMIDE 0.5 MG/2.5 ML NEBU NEB SCH ×6 (03:25→23:56)
[2022-06-12] MEDS: GLUCERNA 1.2 1000ML LIQUID GT PRN (03:59)
[2022-06-12] MEDS: MIDODRINE HCL 5 MG TABLET GT SCH ×3 (05:46→22:00)
[2022-06-12] MEDS: OMEGA-3 FATTY ACIDS/FISH OIL CAPSULE GT SCH ×2 (05:46→17:29)
[2022-06-12] MEDS: PROTEIN SUPPLEMENT (PROSTAT) 30 ML LIQUID GT SCH ×3 (05:46→22:00)
[2022-06-12] MEDS: BACLOFEN 10 MG TABLET GT SCH ×3 (05:46→17:29)
[2022-06-12] MEDS: ARGININE/GLUTAMINE/CALCIUM BMB 1 EACH POWD.PACK GT SCH ×2 (05:46→17:29)
[2022-06-12] MEDS: OMEPRAZOLE 20 MG CAPSULE.DR GT SCH (05:46)
[2022-06-12] MEDS: ACETAMINOPHEN 650 MG/20.3 ML LIQUID UDC GT SCH ×2 (08:40→20:30)
[2022-06-12] MEDS: REMEDY ESSENTIAL ZINC PASTE 113 GM TP SCH ×5 (08:40→21:00)
[2022-06-12] MEDS: ACIDOPHILUS/BULGARICUS CHEW TAB GT SCH ×2 (08:40→21:00)
[2022-06-12] MEDS: SODIUM HYPOCHLORITE 0.125% (QUARTER STRENGTH) 473 ML BOTTLE TP SCH ×2 (08:40→21:00)
[2022-06-12] MEDS: MEDIHONEY= THERAHONEY 1.5 OZ TUBE TOP SCH ×2 (08:40→21:00)
[2022-06-12] MEDS: HYDROGEN PEROXIDE 3% 118 ML BOTTLE TP SCH ×2 (09:30→21:00)
[2022-06-12] MEDS: SERTRALINE 25MG TABLET GT SCH (12:43)
[2022-06-12] MEDS: HYDROCODONE/APAP 5-325MG TABLET GT PRN ×2 (17:30→22:00)
[2022-06-12] MEDS: ASCORBIC ACID 500 MG TABLET GT SCH (21:00)
[2022-06-12] MEDS: MULTIVIT, IRON, MIN NO. 8, FA TABLET GT SCH (21:00)
[2022-06-12] MEDS: SIMVASTATIN 10 MG TABLET GT SCH (21:00)
[2022-06-12] MEDS: ESTROGENS,CONJU VAGINAL CREAM 42.5 GM TUBE VG SCH (21:00)
[2022-06-13] VITALS (13 sets, daily range): TEMP 97.9; O2SAT 97–99
[2022-06-13] MEDS: ALBUTEROL SULFATE 2.5 MG/3 ML NEBU NEB SCH ×6 (03:10→23:28)
[2022-06-13] MEDS: IPRATROPIUM BROMIDE 0.5 MG/2.5 ML NEBU NEB SCH ×6 (03:10→23:28)
[2022-06-13] MEDS: BACLOFEN 10 MG TABLET GT SCH ×4 (06:00→18:15)
[2022-06-13] MEDS: ARGININE/GLUTAMINE/CALCIUM BMB 1 EACH POWD.PACK GT SCH ×2 (06:00→18:15)
[2022-06-13] MEDS: PROTEIN SUPPLEMENT (PROSTAT) 30 ML LIQUID GT SCH ×3 (06:00→22:52)
[2022-06-13] MEDS: OMEPRAZOLE 20 MG CAPSULE.DR GT SCH (06:00)
[2022-06-13] MEDS: MIDODRINE HCL 5 MG TABLET GT SCH ×3 (06:00→22:00)
[2022-06-13] MEDS: OMEGA-3 FATTY ACIDS/FISH OIL CAPSULE GT SCH ×2 (06:00→18:15)
[2022-06-13] MEDS: ACETAMINOPHEN 650 MG/20.3 ML LIQUID UDC GT SCH ×2 (08:30→20:30)
[2022-06-13] MEDS: REMEDY ESSENTIAL ZINC PASTE 113 GM TP SCH ×5 (09:00→21:00)
[2022-06-13] MEDS: MEDIHONEY= THERAHONEY 1.5 OZ TUBE TOP SCH ×2 (09:00→21:00)
[2022-06-13] MEDS: ACIDOPHILUS/BULGARICUS CHEW TAB GT SCH ×2 (09:00→21:00)
[2022-06-13] MEDS: SODIUM HYPOCHLORITE 0.125% (QUARTER STRENGTH) 473 ML BOTTLE TP SCH ×2 (09:00→21:00)
[2022-06-13] MEDS: HYDROGEN PEROXIDE 3% 118 ML BOTTLE TP SCH ×2 (09:59→21:00)
[2022-06-13] MEDS: SERTRALINE 25MG TABLET GT SCH (12:19)
[2022-06-13] MEDS: ASCORBIC ACID 500 MG TABLET GT SCH (21:00)
[2022-06-13] MEDS: MULTIVIT, IRON, MIN NO. 8, FA TABLET GT SCH (21:00)
[2022-06-13] MEDS: SIMVASTATIN 10 MG TABLET GT SCH (21:00)
[2022-06-13] MEDS: ESTROGENS,CONJU VAGINAL CREAM 42.5 GM TUBE VG SCH (21:00)
[2022-06-13] MEDS: HYDROCODONE/APAP 5-325MG TABLET GT PRN (22:00)
[2022-06-14] VITALS (13 sets, daily range): TEMP 98.1; O2SAT 97–99
[2022-06-14] MEDS: ALBUTEROL SULFATE 2.5 MG/3 ML NEBU NEB SCH ×6 (03:44→23:37)
[2022-06-14] MEDS: IPRATROPIUM BROMIDE 0.5 MG/2.5 ML NEBU NEB SCH ×6 (03:44→23:37)
[2022-06-14] MEDS: ARGININE/GLUTAMINE/CALCIUM BMB 1 EACH POWD.PACK GT SCH ×2 (06:30→17:19)
[2022-06-14] MEDS: OMEPRAZOLE 20 MG CAPSULE.DR GT SCH (06:30)
[2022-06-14] MEDS: OMEGA-3 FATTY ACIDS/FISH OIL CAPSULE GT SCH ×2 (06:30→17:19)
[2022-06-14] MEDS: BACLOFEN 10 MG TABLET GT SCH ×4 (06:30→17:19)
[2022-06-14] MEDS: PROTEIN SUPPLEMENT (PROSTAT) 30 ML LIQUID GT SCH ×3 (06:31→22:29)
[2022-06-14] MEDS: MIDODRINE HCL 5 MG TABLET GT SCH ×3 (06:31→22:00)
[2022-06-14] MEDS: HYDROGEN PEROXIDE 3% 118 ML BOTTLE TP SCH ×2 (07:44→20:14)
[2022-06-14] MEDS: ACIDOPHILUS/BULGARICUS CHEW TAB GT SCH ×2 (09:26→20:42)
[2022-06-14] MEDS: SODIUM HYPOCHLORITE 0.125% (QUARTER STRENGTH) 473 ML BOTTLE TP SCH ×2 (09:26→20:49)
[2022-06-14] MEDS: MEDIHONEY= THERAHONEY 1.5 OZ TUBE TOP SCH ×2 (09:26→20:47)
[2022-06-14] MEDS: ACETAMINOPHEN 650 MG/20.3 ML LIQUID UDC GT SCH ×2 (09:26→20:42)
[2022-06-14] MEDS: REMEDY ESSENTIAL ZINC PASTE 113 GM TP SCH ×5 (09:26→20:49)
[2022-06-14] MEDS: SERTRALINE 25MG TABLET GT SCH (11:44)
[2022-06-14] MEDS: MULTIVIT, IRON, MIN NO. 8, FA TABLET GT SCH (20:46)
[2022-06-14] MEDS: ASCORBIC ACID 500 MG TABLET GT SCH (20:46)
[2022-06-14] MEDS: SIMVASTATIN 10 MG TABLET GT SCH (20:47)
[2022-06-14] MEDS: ESTROGENS,CONJU VAGINAL CREAM 42.5 GM TUBE VG SCH (20:49)
[2022-06-15] VITALS (15 sets, daily range): TEMP 97.8–99; O2SAT 96–99
[2022-06-15] MEDS: IPRATROPIUM BROMIDE 0.5 MG/2.5 ML NEBU NEB SCH ×6 (03:20→23:35)
[2022-06-15] MEDS: ALBUTEROL SULFATE 2.5 MG/3 ML NEBU NEB SCH ×6 (03:20→23:35)
[2022-06-15] MEDS: HYDROCODONE/APAP 5-325MG TABLET GT PRN ×2 (06:30→15:15)
[2022-06-15] MEDS: ARGININE/GLUTAMINE/CALCIUM BMB 1 EACH POWD.PACK GT SCH ×2 (06:50→18:08)
[2022-06-15] MEDS: OMEPRAZOLE 20 MG CAPSULE.DR GT SCH (06:50)
[2022-06-15] MEDS: BACLOFEN 10 MG TABLET GT SCH ×4 (06:50→18:08)
[2022-06-15] MEDS: MIDODRINE HCL 5 MG TABLET GT SCH ×3 (06:50→21:49)
[2022-06-15] MEDS: PROTEIN SUPPLEMENT (PROSTAT) 30 ML LIQUID GT SCH ×3 (06:50→21:50)
[2022-06-15] MEDS: OMEGA-3 FATTY ACIDS/FISH OIL CAPSULE GT SCH ×2 (06:50→18:08)
[2022-06-15] MEDS: ACIDOPHILUS/BULGARICUS CHEW TAB GT SCH ×2 (08:50→21:48)
[2022-06-15] MEDS: SODIUM HYPOCHLORITE 0.125% (QUARTER STRENGTH) 473 ML BOTTLE TP SCH ×2 (08:50→21:49)
[2022-06-15] MEDS: MEDIHONEY= THERAHONEY 1.5 OZ TUBE TOP SCH ×2 (08:50→21:49)
[2022-06-15] MEDS: REMEDY ESSENTIAL ZINC PASTE 113 GM TP SCH ×5 (08:50→21:49)
[2022-06-15] MEDS: ACETAMINOPHEN 650 MG/20.3 ML LIQUID UDC GT SCH ×2 (08:50→20:30)
[2022-06-15] MEDS: HYDROGEN PEROXIDE 3% 118 ML BOTTLE TP SCH ×2 (09:12→21:19)
[2022-06-15] MEDS: SERTRALINE 25MG TABLET GT SCH (12:42)
[2022-06-15] MEDS: MULTIVIT, IRON, MIN NO. 8, FA TABLET GT SCH (21:48)
[2022-06-15] MEDS: ASCORBIC ACID 500 MG TABLET GT SCH (21:48)
[2022-06-15] MEDS: ESTROGENS,CONJU VAGINAL CREAM 42.5 GM TUBE VG SCH (21:49)
[2022-06-15] MEDS: SIMVASTATIN 10 MG TABLET GT SCH (21:49)
[2022-06-15] MEDS: GLUCERNA 1.2 1000ML LIQUID GT PRN (22:00)
[2022-06-16] VITALS (14 sets, daily range): TEMP 98.2–98.7; O2SAT 96–99
[2022-06-16] MEDS: IPRATROPIUM BROMIDE 0.5 MG/2.5 ML NEBU NEB SCH ×6 (03:37→23:43)
[2022-06-16] MEDS: ALBUTEROL SULFATE 2.5 MG/3 ML NEBU NEB SCH ×6 (03:37→23:43)
[2022-06-16] MEDS: HYDROCODONE/APAP 5-325MG TABLET GT PRN (05:00)
[2022-06-16] MEDS: ARGININE/GLUTAMINE/CALCIUM BMB 1 EACH POWD.PACK GT SCH ×2 (05:42→17:17)
[2022-06-16] MEDS: PROTEIN SUPPLEMENT (PROSTAT) 30 ML LIQUID GT SCH ×3 (05:42→21:47)
[2022-06-16] MEDS: BACLOFEN 10 MG TABLET GT SCH ×4 (05:42→17:17)
[2022-06-16] MEDS: OMEGA-3 FATTY ACIDS/FISH OIL CAPSULE GT SCH ×2 (05:42→17:17)
[2022-06-16] MEDS: MIDODRINE HCL 5 MG TABLET GT SCH ×3 (05:42→21:47)
[2022-06-16] MEDS: OMEPRAZOLE 20 MG CAPSULE.DR GT SCH (05:42)
[2022-06-16] MEDS: HYDROGEN PEROXIDE 3% 118 ML BOTTLE TP SCH ×2 (08:04→21:00)
[2022-06-16] MEDS: ACIDOPHILUS/BULGARICUS CHEW TAB GT SCH ×2 (08:25→21:44)
[2022-06-16] MEDS: SODIUM HYPOCHLORITE 0.125% (QUARTER STRENGTH) 473 ML BOTTLE TP SCH ×2 (08:25→21:46)
[2022-06-16] MEDS: ACETAMINOPHEN 650 MG/20.3 ML LIQUID UDC GT SCH ×2 (08:25→20:30)
[2022-06-16] MEDS: MEDIHONEY= THERAHONEY 1.5 OZ TUBE TOP SCH (08:25)
[2022-06-16] MEDS: REMEDY ESSENTIAL ZINC PASTE 113 GM TP SCH ×4 (08:26→21:47)
[2022-06-16] MEDS: SERTRALINE 25MG TABLET GT SCH (12:01)
[2022-06-16] MEDS: MULTIVIT, IRON, MIN NO. 8, FA TABLET GT SCH (21:45)
[2022-06-16] MEDS: ASCORBIC ACID 500 MG TABLET GT SCH (21:45)
[2022-06-16] MEDS: SIMVASTATIN 10 MG TABLET GT SCH (21:45)
[2022-06-16] MEDS: ESTROGENS,CONJU VAGINAL CREAM 42.5 GM TUBE VG SCH (21:47)
[2022-06-16] MEDS: GLUCERNA 1.2 1000ML LIQUID GT PRN (22:00)
[2022-06-17] VITALS (13 sets, daily range): TEMP 97.7; O2SAT 96–99
[2022-06-17] MEDS: IPRATROPIUM BROMIDE 0.5 MG/2.5 ML NEBU NEB SCH ×6 (03:26→23:13)
[2022-06-17] MEDS: ALBUTEROL SULFATE 2.5 MG/3 ML NEBU NEB SCH ×6 (03:26→23:13)
[2022-06-17] MEDS: HYDROCODONE/APAP 5-325MG TABLET GT PRN ×2 (05:30→22:00)
[2022-06-17] MEDS: OMEPRAZOLE 20 MG CAPSULE.DR GT SCH (05:40)
[2022-06-17] MEDS: BACLOFEN 10 MG TABLET GT SCH ×4 (05:40→17:09)
[2022-06-17] MEDS: OMEGA-3 FATTY ACIDS/FISH OIL CAPSULE GT SCH ×2 (05:40→17:09)
[2022-06-17] MEDS: ARGININE/GLUTAMINE/CALCIUM BMB 1 EACH POWD.PACK GT SCH ×2 (05:40→17:09)
[2022-06-17] MEDS: MIDODRINE HCL 5 MG TABLET GT SCH ×3 (05:40→22:00)
[2022-06-17] MEDS: PROTEIN SUPPLEMENT (PROSTAT) 30 ML LIQUID GT SCH ×3 (05:40→22:05)
[2022-06-17] MEDS: HYDROGEN PEROXIDE 3% 118 ML BOTTLE TP SCH ×2 (08:08→21:16)
[2022-06-17] MEDS: MEDIHONEY= THERAHONEY 1.5 OZ TUBE TOP SCH ×2 (09:17→21:00)
[2022-06-17] MEDS: ACETAMINOPHEN 650 MG/20.3 ML LIQUID UDC GT SCH ×2 (09:17→20:30)
[2022-06-17] MEDS: ACIDOPHILUS/BULGARICUS CHEW TAB GT SCH ×2 (09:17→21:00)
[2022-06-17] MEDS: REMEDY ESSENTIAL ZINC PASTE 113 GM TP SCH ×5 (09:17→21:00)
[2022-06-17] MEDS: SODIUM HYPOCHLORITE 0.125% (QUARTER STRENGTH) 473 ML BOTTLE TP SCH ×2 (09:17→21:00)
[2022-06-17] MEDS: SERTRALINE 25MG TABLET GT SCH (12:00)
[2022-06-17] MEDS: MULTIVIT, IRON, MIN NO. 8, FA TABLET GT SCH (21:00)
[2022-06-17] MEDS: SIMVASTATIN 10 MG TABLET GT SCH (21:00)
[2022-06-17] MEDS: ESTROGENS,CONJU VAGINAL CREAM 42.5 GM TUBE VG SCH (21:00)
[2022-06-17] MEDS: ASCORBIC ACID 500 MG TABLET GT SCH (21:00)
[2022-06-18] VITALS (14 sets, daily range): TEMP 98.5–98.6; O2SAT 96–99
[2022-06-18] MEDS: IPRATROPIUM BROMIDE 0.5 MG/2.5 ML NEBU NEB SCH ×6 (03:02→23:06)
[2022-06-18] MEDS: ALBUTEROL SULFATE 2.5 MG/3 ML NEBU NEB SCH ×6 (03:02→23:06)
[2022-06-18] MEDS: MIDODRINE HCL 5 MG TABLET GT SCH ×3 (06:00→21:40)
[2022-06-18] MEDS: OMEPRAZOLE 20 MG CAPSULE.DR GT SCH (06:00)
[2022-06-18] MEDS: ARGININE/GLUTAMINE/CALCIUM BMB 1 EACH POWD.PACK GT SCH ×2 (06:00→17:48)
[2022-06-18] MEDS: PROTEIN SUPPLEMENT (PROSTAT) 30 ML LIQUID GT SCH ×3 (06:00→21:40)
[2022-06-18] MEDS: BACLOFEN 10 MG TABLET GT SCH ×4 (06:00→17:50)
[2022-06-18] MEDS: OMEGA-3 FATTY ACIDS/FISH OIL CAPSULE GT SCH ×2 (06:00→17:48)
[2022-06-18] MEDS: GLUCERNA 1.2 1000ML LIQUID GT PRN (07:17)
[2022-06-18] MEDS: HYDROGEN PEROXIDE 3% 118 ML BOTTLE TP SCH ×2 (08:07→21:13)
[2022-06-18] MEDS: ACIDOPHILUS/BULGARICUS CHEW TAB GT SCH ×2 (08:35→21:27)
[2022-06-18] MEDS: ACETAMINOPHEN 650 MG/20.3 ML LIQUID UDC GT SCH ×2 (08:35→21:27)
[2022-06-18] MEDS: MEDIHONEY= THERAHONEY 1.5 OZ TUBE TOP SCH ×2 (08:36→21:30)
[2022-06-18] MEDS: SODIUM HYPOCHLORITE 0.125% (QUARTER STRENGTH) 473 ML BOTTLE TP SCH ×2 (08:36→21:32)
[2022-06-18] MEDS: REMEDY ESSENTIAL ZINC PASTE 113 GM TP SCH ×5 (08:36→21:32)
[2022-06-18] MEDS: SERTRALINE 25MG TABLET GT SCH (12:34)
[2022-06-18] MEDS: MULTIVIT, IRON, MIN NO. 8, FA TABLET GT SCH (21:29)
[2022-06-18] MEDS: ASCORBIC ACID 500 MG TABLET GT SCH (21:30)
[2022-06-18] MEDS: SIMVASTATIN 10 MG TABLET GT SCH (21:30)
[2022-06-18] MEDS: ESTROGENS,CONJU VAGINAL CREAM 42.5 GM TUBE VG SCH (21:32)
[2022-06-19] VITALS (14 sets, daily range): TEMP 97.5–98.7; O2SAT 96–99
[2022-06-19] MEDS: BACLOFEN 10 MG TABLET GT SCH ×4 (00:50→17:13)
[2022-06-19] MEDS: IPRATROPIUM BROMIDE 0.5 MG/2.5 ML NEBU NEB SCH ×6 (03:51→23:37)
[2022-06-19] MEDS: ALBUTEROL SULFATE 2.5 MG/3 ML NEBU NEB SCH ×6 (03:52→23:37)
[2022-06-19] MEDS: OMEGA-3 FATTY ACIDS/FISH OIL CAPSULE GT SCH ×2 (05:43→17:11)
[2022-06-19] MEDS: OMEPRAZOLE 20 MG CAPSULE.DR GT SCH (05:44)
[2022-06-19] MEDS: ARGININE/GLUTAMINE/CALCIUM BMB 1 EACH POWD.PACK GT SCH ×2 (05:44→17:13)
[2022-06-19] MEDS: MIDODRINE HCL 5 MG TABLET GT SCH ×3 (05:45→22:00)
[2022-06-19] MEDS: PROTEIN SUPPLEMENT (PROSTAT) 30 ML LIQUID GT SCH ×3 (05:45→22:27)
[2022-06-19] MEDS: MEDIHONEY= THERAHONEY 1.5 OZ TUBE TOP SCH ×2 (08:43→20:28)
[2022-06-19] MEDS: SODIUM HYPOCHLORITE 0.125% (QUARTER STRENGTH) 473 ML BOTTLE TP SCH ×2 (08:43→20:28)
[2022-06-19] MEDS: ACETAMINOPHEN 650 MG/20.3 ML LIQUID UDC GT SCH ×2 (08:43→20:26)
[2022-06-19] MEDS: REMEDY ESSENTIAL ZINC PASTE 113 GM TP SCH ×5 (08:43→20:28)
[2022-06-19] MEDS: ACIDOPHILUS/BULGARICUS CHEW TAB GT SCH ×2 (08:43→20:27)
[2022-06-19] MEDS: HYDROGEN PEROXIDE 3% 118 ML BOTTLE TP SCH ×2 (09:31→21:53)
[2022-06-19] MEDS: SERTRALINE 25MG TABLET GT SCH (11:00)
[2022-06-19] MEDS: GLUCERNA 1.2 1000ML LIQUID GT PRN (11:00)
[2022-06-19] MEDS: MULTIVIT, IRON, MIN NO. 8, FA TABLET GT SCH (20:27)
[2022-06-19] MEDS: ASCORBIC ACID 500 MG TABLET GT SCH (20:27)
[2022-06-19] MEDS: SIMVASTATIN 10 MG TABLET GT SCH (20:27)
[2022-06-19] MEDS: ESTROGENS,CONJU VAGINAL CREAM 42.5 GM TUBE VG SCH (20:28)
[2022-06-19] MEDS: TEMAZEPAM 7.5 MG CAPSULE GT PRN ×2 (21:00→22:00)
[2022-06-20] VITALS (14 sets, daily range): TEMP 98–98.8; O2SAT 96–99
[2022-06-20] MEDS: ALBUTEROL SULFATE 2.5 MG/3 ML NEBU NEB SCH ×6 (03:05→23:23)
[2022-06-20] MEDS: IPRATROPIUM BROMIDE 0.5 MG/2.5 ML NEBU NEB SCH ×6 (03:05→23:23)
[2022-06-20] MEDS: PROTEIN SUPPLEMENT (PROSTAT) 30 ML LIQUID GT SCH ×3 (05:32→21:00)
[2022-06-20] MEDS: OMEPRAZOLE 20 MG CAPSULE.DR GT SCH (05:32)
[2022-06-20] MEDS: BACLOFEN 10 MG TABLET GT SCH ×5 (05:32→23:03)
[2022-06-20] MEDS: OMEGA-3 FATTY ACIDS/FISH OIL CAPSULE GT SCH ×2 (05:32→17:57)
[2022-06-20] MEDS: ARGININE/GLUTAMINE/CALCIUM BMB 1 EACH POWD.PACK GT SCH ×2 (05:32→17:57)
[2022-06-20] MEDS: MIDODRINE HCL 5 MG TABLET GT SCH ×3 (05:32→21:00)
[2022-06-20] MEDS: HYDROGEN PEROXIDE 3% 118 ML BOTTLE TP SCH ×2 (07:25→21:27)
[2022-06-20] MEDS: MEDIHONEY= THERAHONEY 1.5 OZ TUBE TOP SCH ×2 (08:35→20:59)
[2022-06-20] MEDS: ACIDOPHILUS/BULGARICUS CHEW TAB GT SCH ×2 (08:35→20:59)
[2022-06-20] MEDS: SODIUM HYPOCHLORITE 0.125% (QUARTER STRENGTH) 473 ML BOTTLE TP SCH ×2 (08:35→20:59)
[2022-06-20] MEDS: ACETAMINOPHEN 650 MG/20.3 ML LIQUID UDC GT SCH ×2 (08:35→20:59)
[2022-06-20] MEDS: REMEDY ESSENTIAL ZINC PASTE 113 GM TP SCH ×5 (08:36→20:59)
[2022-06-20] MEDS: SERTRALINE 25MG TABLET GT SCH (12:18)
[2022-06-20] MEDS: GLUCERNA 1.2 1000ML LIQUID GT PRN (12:38)
[2022-06-20] MEDS: SIMVASTATIN 10 MG TABLET GT SCH (20:59)
[2022-06-20] MEDS: ASCORBIC ACID 500 MG TABLET GT SCH (20:59)
[2022-06-20] MEDS: TEMAZEPAM 7.5 MG CAPSULE GT PRN (20:59)
[2022-06-20] MEDS: MULTIVIT, IRON, MIN NO. 8, FA TABLET GT SCH (20:59)
[2022-06-20] MEDS: ESTROGENS,CONJU VAGINAL CREAM 42.5 GM TUBE VG SCH (20:59)
[2022-06-21] VITALS (14 sets, daily range): TEMP 97.7–98.1; O2SAT 96–99
[2022-06-21] MEDS: IPRATROPIUM BROMIDE 0.5 MG/2.5 ML NEBU NEB SCH ×6 (03:00→23:22)
[2022-06-21] MEDS: ALBUTEROL SULFATE 2.5 MG/3 ML NEBU NEB SCH ×6 (03:00→23:22)
[2022-06-21] MEDS: HYDROCODONE/APAP 5-325MG TABLET GT PRN ×2 (04:40→17:58)
[2022-06-21] MEDS: BACLOFEN 10 MG TABLET GT SCH ×3 (05:37→17:22)
[2022-06-21] MEDS: OMEPRAZOLE 20 MG CAPSULE.DR GT SCH (05:37)
[2022-06-21] MEDS: MIDODRINE HCL 5 MG TABLET GT SCH ×3 (05:37→22:00)
[2022-06-21] MEDS: OMEGA-3 FATTY ACIDS/FISH OIL CAPSULE GT SCH ×2 (05:37→17:22)
[2022-06-21] MEDS: ARGININE/GLUTAMINE/CALCIUM BMB 1 EACH POWD.PACK GT SCH ×2 (05:37→17:22)
[2022-06-21] MEDS: PROTEIN SUPPLEMENT (PROSTAT) 30 ML LIQUID GT SCH ×3 (05:38→22:00)
[2022-06-21] MEDS: HYDROGEN PEROXIDE 3% 118 ML BOTTLE TP SCH ×2 (07:23→19:27)
[2022-06-21] MEDS: ACETAMINOPHEN 650 MG/20.3 ML LIQUID UDC GT SCH ×2 (09:06→20:30)
[2022-06-21] MEDS: ACIDOPHILUS/BULGARICUS CHEW TAB GT SCH ×2 (09:06→20:49)
[2022-06-21] MEDS: REMEDY ESSENTIAL ZINC PASTE 113 GM TP SCH ×5 (09:50→20:49)
[2022-06-21] MEDS: MEDIHONEY= THERAHONEY 1.5 OZ TUBE TOP SCH ×2 (09:50→20:49)
[2022-06-21] MEDS: SODIUM HYPOCHLORITE 0.125% (QUARTER STRENGTH) 473 ML BOTTLE TP SCH ×2 (09:50→20:49)
[2022-06-21] MEDS: SERTRALINE 25MG TABLET GT SCH (12:07)
[2022-06-21] MEDS: GLUCERNA 1.2 1000ML LIQUID GT PRN (17:58)
[2022-06-21] MEDS: SIMVASTATIN 10 MG TABLET GT SCH (20:49)
[2022-06-21] MEDS: ASCORBIC ACID 500 MG TABLET GT SCH (20:49)
[2022-06-21] MEDS: MULTIVIT, IRON, MIN NO. 8, FA TABLET GT SCH (20:49)
[2022-06-21] MEDS: ESTROGENS,CONJU VAGINAL CREAM 42.5 GM TUBE VG SCH (20:49)
[2022-06-21] MEDS: TEMAZEPAM 7.5 MG CAPSULE GT PRN (21:00)
[2022-06-22] VITALS (14 sets, daily range): TEMP 97.7–98.7; O2SAT 96–99
[2022-06-22] MEDS: IPRATROPIUM BROMIDE 0.5 MG/2.5 ML NEBU NEB SCH ×6 (03:18→22:50)
[2022-06-22] MEDS: ALBUTEROL SULFATE 2.5 MG/3 ML NEBU NEB SCH ×6 (03:18→22:50)
[2022-06-22] MEDS: OMEPRAZOLE 20 MG CAPSULE.DR GT SCH (05:12)
[2022-06-22] MEDS: OMEGA-3 FATTY ACIDS/FISH OIL CAPSULE GT SCH ×2 (05:12→17:37)
[2022-06-22] MEDS: ARGININE/GLUTAMINE/CALCIUM BMB 1 EACH POWD.PACK GT SCH ×2 (05:12→17:37)
[2022-06-22] MEDS: BACLOFEN 10 MG TABLET GT SCH ×4 (05:12→17:37)
[2022-06-22] MEDS: MIDODRINE HCL 5 MG TABLET GT SCH ×3 (05:14→21:47)
[2022-06-22] MEDS: PROTEIN SUPPLEMENT (PROSTAT) 30 ML LIQUID GT SCH ×3 (05:14→21:47)
[2022-06-22] MEDS: ACIDOPHILUS/BULGARICUS CHEW TAB GT SCH ×2 (08:59→21:43)
[2022-06-22] MEDS: ACETAMINOPHEN 650 MG/20.3 ML LIQUID UDC GT SCH ×2 (09:01→20:30)
[2022-06-22] MEDS: HYDROGEN PEROXIDE 3% 118 ML BOTTLE TP SCH ×2 (09:25→19:02)
[2022-06-22] MEDS: MEDIHONEY= THERAHONEY 1.5 OZ TUBE TOP SCH ×2 (09:57→21:44)
[2022-06-22] MEDS: SODIUM HYPOCHLORITE 0.125% (QUARTER STRENGTH) 473 ML BOTTLE TP SCH ×2 (09:58→21:44)
[2022-06-22] MEDS: REMEDY ESSENTIAL ZINC PASTE 113 GM TP SCH ×5 (09:58→21:45)
[2022-06-22] MEDS: SERTRALINE 25MG TABLET GT SCH (12:22)
[2022-06-22] MEDS: HYDROCODONE/APAP 5-325MG TABLET GT PRN (18:27)
[2022-06-22] MEDS: MULTIVIT, IRON, MIN NO. 8, FA TABLET GT SCH (21:43)
[2022-06-22] MEDS: ASCORBIC ACID 500 MG TABLET GT SCH (21:44)
[2022-06-22] MEDS: SIMVASTATIN 10 MG TABLET GT SCH (21:44)
[2022-06-22] MEDS: ESTROGENS,CONJU VAGINAL CREAM 42.5 GM TUBE VG SCH (21:45)
[2022-06-22] MEDS: TEMAZEPAM 7.5 MG CAPSULE GT PRN (21:47)
[2022-06-23] VITALS (14 sets, daily range): TEMP 97.6–97.8; O2SAT 96–99
[2022-06-23] MEDS: BACLOFEN 10 MG TABLET GT SCH ×4 (00:41→17:15)
[2022-06-23] MEDS: ALBUTEROL SULFATE 2.5 MG/3 ML NEBU NEB SCH ×6 (03:31→23:01)
[2022-06-23] MEDS: IPRATROPIUM BROMIDE 0.5 MG/2.5 ML NEBU NEB SCH ×6 (03:31→23:01)
[2022-06-23] MEDS: GLUCERNA 1.2 1000ML LIQUID GT PRN (04:16)
[2022-06-23] MEDS: OMEGA-3 FATTY ACIDS/FISH OIL CAPSULE GT SCH ×2 (05:05→17:15)
[2022-06-23] MEDS: ARGININE/GLUTAMINE/CALCIUM BMB 1 EACH POWD.PACK GT SCH ×2 (05:05→17:15)
[2022-06-23] MEDS: OMEPRAZOLE 20 MG CAPSULE.DR GT SCH (05:05)
[2022-06-23] MEDS: MIDODRINE HCL 5 MG TABLET GT SCH ×3 (05:06→21:07)
[2022-06-23] MEDS: PROTEIN SUPPLEMENT (PROSTAT) 30 ML LIQUID GT SCH ×3 (05:06→21:07)
[2022-06-23] MEDS: HYDROCODONE/APAP 5-325MG TABLET GT PRN ×2 (06:00→14:32)
[2022-06-23] MEDS: HYDROGEN PEROXIDE 3% 118 ML BOTTLE TP SCH ×2 (07:30→19:13)
[2022-06-23] MEDS: MEDIHONEY= THERAHONEY 1.5 OZ TUBE TOP SCH ×2 (08:52→20:35)
[2022-06-23] MEDS: ACIDOPHILUS/BULGARICUS CHEW TAB GT SCH ×2 (08:52→20:35)
[2022-06-23] MEDS: REMEDY ESSENTIAL ZINC PASTE 113 GM TP SCH ×5 (08:52→20:35)
[2022-06-23] MEDS: ACETAMINOPHEN 650 MG/20.3 ML LIQUID UDC GT SCH ×2 (08:52→20:35)
[2022-06-23] MEDS: SODIUM HYPOCHLORITE 0.125% (QUARTER STRENGTH) 473 ML BOTTLE TP SCH ×2 (08:52→20:35)
[2022-06-23] MEDS: SERTRALINE 25MG TABLET GT SCH (12:00)
[2022-06-23] MEDS: ASCORBIC ACID 500 MG TABLET GT SCH (20:35)
[2022-06-23] MEDS: SIMVASTATIN 10 MG TABLET GT SCH (20:35)
[2022-06-23] MEDS: ESTROGENS,CONJU VAGINAL CREAM 42.5 GM TUBE VG SCH (20:35)
[2022-06-23] MEDS: MULTIVIT, IRON, MIN NO. 8, FA TABLET GT SCH (20:35)
[2022-06-23] MEDS: TEMAZEPAM 7.5 MG CAPSULE GT PRN (21:08)
[2022-06-24] VITALS (14 sets, daily range): TEMP 98.2; O2SAT 97–99
[2022-06-24] MEDS: BACLOFEN 10 MG TABLET GT SCH ×4 (00:36→17:46)
[2022-06-24] MEDS: IPRATROPIUM BROMIDE 0.5 MG/2.5 ML NEBU NEB SCH ×6 (03:47→23:23)
[2022-06-24] MEDS: ALBUTEROL SULFATE 2.5 MG/3 ML NEBU NEB SCH ×6 (03:47→23:23)
[2022-06-24] MEDS: HYDROCODONE/APAP 5-325MG TABLET GT PRN ×2 (04:09→17:47)
[2022-06-24] MEDS: OMEGA-3 FATTY ACIDS/FISH OIL CAPSULE GT SCH ×2 (05:08→17:46)
[2022-06-24] MEDS: MIDODRINE HCL 5 MG TABLET GT SCH ×3 (05:08→21:27)
[2022-06-24] MEDS: OMEPRAZOLE 20 MG CAPSULE.DR GT SCH (05:08)
[2022-06-24] MEDS: ARGININE/GLUTAMINE/CALCIUM BMB 1 EACH POWD.PACK GT SCH ×2 (05:08→17:46)
[2022-06-24] MEDS: PROTEIN SUPPLEMENT (PROSTAT) 30 ML LIQUID GT SCH ×3 (05:09→22:00)
[2022-06-24] MEDS: MEDIHONEY= THERAHONEY 1.5 OZ TUBE TOP SCH ×2 (09:06→20:50)
[2022-06-24] MEDS: ACIDOPHILUS/BULGARICUS CHEW TAB GT SCH ×2 (09:06→20:50)
[2022-06-24] MEDS: SODIUM HYPOCHLORITE 0.125% (QUARTER STRENGTH) 473 ML BOTTLE TP SCH ×2 (09:06→20:50)
[2022-06-24] MEDS: ACETAMINOPHEN 650 MG/20.3 ML LIQUID UDC GT SCH ×2 (09:06→20:50)
[2022-06-24] MEDS: REMEDY ESSENTIAL ZINC PASTE 113 GM TP SCH ×5 (09:06→20:50)
[2022-06-24] MEDS: HYDROGEN PEROXIDE 3% 118 ML BOTTLE TP SCH ×2 (09:30→19:13)
[2022-06-24] MEDS: SERTRALINE 25MG TABLET GT SCH (13:00)
[2022-06-24] MEDS: GLUCERNA 1.2 1000ML LIQUID GT PRN (13:28)
[2022-06-24] MEDS: ASCORBIC ACID 500 MG TABLET GT SCH (20:50)
[2022-06-24] MEDS: MULTIVIT, IRON, MIN NO. 8, FA TABLET GT SCH (20:50)
[2022-06-24] MEDS: SIMVASTATIN 10 MG TABLET GT SCH (20:50)
[2022-06-24] MEDS: ESTROGENS,CONJU VAGINAL CREAM 42.5 GM TUBE VG SCH (20:50)
[2022-06-24] MEDS: TEMAZEPAM 7.5 MG CAPSULE GT PRN (21:00)
[2022-06-25] VITALS (14 sets, daily range): TEMP 97.7–101; O2SAT 97–99
[2022-06-25] MEDS: BACLOFEN 10 MG TABLET GT SCH ×4 (00:33→17:41)
[2022-06-25] MEDS: IPRATROPIUM BROMIDE 0.5 MG/2.5 ML NEBU NEB SCH ×6 (03:08→23:10)
[2022-06-25] MEDS: ALBUTEROL SULFATE 2.5 MG/3 ML NEBU NEB SCH ×6 (03:08→23:10)
[2022-06-25] MEDS: OMEGA-3 FATTY ACIDS/FISH OIL CAPSULE GT SCH ×2 (05:03→17:41)
[2022-06-25] MEDS: OMEPRAZOLE 20 MG CAPSULE.DR GT SCH (05:03)
[2022-06-25] MEDS: ARGININE/GLUTAMINE/CALCIUM BMB 1 EACH POWD.PACK GT SCH ×2 (05:03→17:41)
[2022-06-25] MEDS: MIDODRINE HCL 5 MG TABLET GT SCH ×3 (05:09→22:00)
[2022-06-25] MEDS: PROTEIN SUPPLEMENT (PROSTAT) 30 ML LIQUID GT SCH ×3 (05:10→22:04)
[2022-06-25] MEDS: HYDROGEN PEROXIDE 3% 118 ML BOTTLE TP SCH ×2 (07:45→19:03)
[2022-06-25] MEDS: ACETAMINOPHEN 650 MG/20.3 ML LIQUID UDC GT SCH ×2 (08:49→20:34)
[2022-06-25] MEDS: ACIDOPHILUS/BULGARICUS CHEW TAB GT SCH ×2 (08:50→20:34)
[2022-06-25] MEDS: REMEDY ESSENTIAL ZINC PASTE 113 GM TP SCH ×5 (08:50→20:35)
[2022-06-25] MEDS: SODIUM HYPOCHLORITE 0.125% (QUARTER STRENGTH) 473 ML BOTTLE TP SCH ×2 (08:50→20:35)
[2022-06-25] MEDS: MEDIHONEY= THERAHONEY 1.5 OZ TUBE TOP SCH ×2 (08:50→20:34)
[2022-06-25] MEDS: SERTRALINE 25MG TABLET GT SCH (12:51)
[2022-06-25] MEDS: GLUCERNA 1.2 1000ML LIQUID GT PRN (12:52)
[2022-06-25] MEDS: HYDROCODONE/APAP 5-325MG TABLET GT PRN (18:20)
[2022-06-25 19:09] LABS: BASOPHILS # (AUTO) 0.1 K/UL (0.0-0.2); BASOPHILS % (AUTO) 0.5 % (0.0-2.0); EOSINOPHILS # (AUTO) 0.7 K/uL (0.0-0.7); EOSINOPHILS % (AUTO) 4.9 % (0.0-7.0); HEMATOCRIT 40.1 % (31.2-41.9); HEMOGLOBIN 12.1 g/dL (10.9-14.3); LYMPHOCYTES # (AUTO) 2.1 K/uL (0.8-4.8); LYMPHOCYTES % (AUTO) 14.5 % (20.5-51.5); MEAN CORPUSCULAR HEMOGLOBIN 27.4 uug (24.7-32.8); MEAN CORPUSCULAR HGB CONC 30 g/dL (32.3-35.6); MEAN CORPUSCULAR VOLUME 90.9 fL (75.5-95.3); MONOCYTES # (AUTO) 1.1 K/uL (0.1-1.30); MONOCYTES % (AUTO) 7.3 % (0.0-11.0); NEUTROPHILS # (AUTO) 10.4 K/uL (1.8-8.9); NEUTROPHILS % (AUTO) 72.8 % (38.5-71.5); PLATELET COUNT (AUTO) 175 K/uL (179-408); RED BLOOD CELL COUNT(AUTO) 4.41 MIL/uL (3.63-4.92); RED CELL DISTRIBUTION WIDTH 19.9 % (12.3-17.7); WHITE BLOOD COUNT (AUTO) 14.4 K/uL (3.8-11.8)
[2022-06-25 19:20] LABS: DIFFERENTIAL COMMENT 1
[2022-06-25 19:25] LABS: CALCIUM 9.3 mg/dL (8.5-10.1); CREATININE 1.1 mg/dL (0.6-1.3); POTASSIUM 3.2 mmol/L (3.5-5.1)
[2022-06-25 19:35] LABS: *BILIRUBIN,URIN NEGATIVE (NEGATIVE); *CLARITY,URINE SLIGHTLY CLOUDY (CLEAR); *COLOR,URINE YELLOW (YELLOW); *KETONES,URINE NEGATIVE (NEGATIVE); *PROTEIN,URINE 2+ (NEGATIVE); *UROBILINOGEN,URINE 0.2 E.U./dl (NORMAL); LEUKOCYTE ESTERASE ,URINE 3+ (NEGATIVE); NITRITE, URINE NEGATIVE (NEGATIVE); PH,URINE 8.5 (5.0-8.0); UGLUCOSE NEGATIVE (NEGATIVE)
[2022-06-25 19:37] LABS: *BLOOD, URINE 2+ (NEGATIVE)
[2022-06-25 19:49] LABS: BACTERIA,URINE MANY /HPF (NONE SEEN); RBC,URINE 50-80 /HPF (0-3); SQUAMOUS EPITHELIAL CELL,UR FEW /HPF (NONE SEEN)
[2022-06-25 19:51] LABS: WBC,URINE 50-80 /HPF (0-3)
[2022-06-25] MEDS: MULTIVIT, IRON, MIN NO. 8, FA TABLET GT SCH (20:34)
[2022-06-25] MEDS: SIMVASTATIN 10 MG TABLET GT SCH (20:34)
[2022-06-25] MEDS: ASCORBIC ACID 500 MG TABLET GT SCH (20:34)
[2022-06-25] MEDS: ESTROGENS,CONJU VAGINAL CREAM 42.5 GM TUBE VG SCH (20:35)
[2022-06-25] MEDS ORDERED: CEFEPIME HCL 1 G VIAL IV SCH (23:00)
[2022-06-26] VITALS (19 sets, daily range): TEMP 97.1–98.5; O2SAT 97–99
[2022-06-26] MEDS: ALBUTEROL SULFATE 2.5 MG/3 ML NEBU NEB SCH ×6 (04:14→23:30)
[2022-06-26] MEDS: IPRATROPIUM BROMIDE 0.5 MG/2.5 ML NEBU NEB SCH ×6 (04:14→23:30)
[2022-06-26] MEDS: OMEGA-3 FATTY ACIDS/FISH OIL CAPSULE GT SCH ×2 (05:47→17:53)
[2022-06-26] MEDS: OMEPRAZOLE 20 MG CAPSULE.DR GT SCH (05:47)
[2022-06-26] MEDS: PROTEIN SUPPLEMENT (PROSTAT) 30 ML LIQUID GT SCH ×3 (05:47→22:03)
[2022-06-26] MEDS: ARGININE/GLUTAMINE/CALCIUM BMB 1 EACH POWD.PACK GT SCH ×2 (05:47→17:53)
[2022-06-26] MEDS: MIDODRINE HCL 5 MG TABLET GT SCH ×3 (05:47→22:03)
[2022-06-26] MEDS: BACLOFEN 10 MG TABLET GT SCH ×4 (05:47→17:53)
[2022-06-26] MEDS: HYDROCODONE/APAP 5-325MG TABLET GT PRN (06:31)
[2022-06-26] MEDS: ACETAMINOPHEN 650 MG/20.3 ML LIQUID UDC GT SCH ×2 (09:13→21:00)
[2022-06-26] MEDS: SODIUM HYPOCHLORITE 0.125% (QUARTER STRENGTH) 473 ML BOTTLE TP SCH ×2 (09:13→21:15)
[2022-06-26] MEDS: MEDIHONEY= THERAHONEY 1.5 OZ TUBE TOP SCH ×2 (09:13→21:15)
[2022-06-26] MEDS: ACIDOPHILUS/BULGARICUS CHEW TAB GT SCH ×2 (09:13→21:15)
[2022-06-26] MEDS: REMEDY ESSENTIAL ZINC PASTE 113 GM TP SCH ×5 (09:13→21:15)
[2022-06-26] MEDS: HYDROGEN PEROXIDE 3% 118 ML BOTTLE TP SCH ×2 (09:44→21:14)
[2022-06-26] MEDS: MEROPENEM 1 G in IV NORMAL SALINE 100 ML IV SCH ×2 (11:08→23:11)
[2022-06-26] MEDS: SERTRALINE 25MG TABLET GT SCH (12:00)
[2022-06-26] MEDS ORDERED: POTASSIUM CHLORIDE 10 MEQ TAB.PRT.SR XX ONE (16:30)
[2022-06-26] MEDS: ESTROGENS,CONJU VAGINAL CREAM 42.5 GM TUBE VG SCH (21:00)
[2022-06-26] MEDS: ASCORBIC ACID 500 MG TABLET GT SCH (21:15)
[2022-06-26] MEDS: SIMVASTATIN 10 MG TABLET GT SCH (21:15)
[2022-06-26] MEDS: MULTIVIT, IRON, MIN NO. 8, FA TABLET GT SCH (21:15)
[2022-06-26] MEDS: TEMAZEPAM 7.5 MG CAPSULE GT PRN (23:17)
[2022-06-27] VITALS (14 sets, daily range): TEMP 97.6–98.2; O2SAT 98–99
[2022-06-27] MEDS: TEMAZEPAM 7.5 MG CAPSULE GT PRN (00:17)
[2022-06-27] MEDS: IPRATROPIUM BROMIDE 0.5 MG/2.5 ML NEBU NEB SCH ×6 (04:18→23:37)
[2022-06-27] MEDS: ALBUTEROL SULFATE 2.5 MG/3 ML NEBU NEB SCH ×6 (04:18→23:37)
[2022-06-27] MEDS: OMEPRAZOLE 20 MG CAPSULE.DR GT SCH (06:23)
[2022-06-27] MEDS: ARGININE/GLUTAMINE/CALCIUM BMB 1 EACH POWD.PACK GT SCH ×2 (06:25→18:15)
[2022-06-27] MEDS: PROTEIN SUPPLEMENT (PROSTAT) 30 ML LIQUID GT SCH ×3 (06:25→22:00)
[2022-06-27] MEDS: BACLOFEN 10 MG TABLET GT SCH ×4 (06:29→18:15)
[2022-06-27] MEDS: OMEGA-3 FATTY ACIDS/FISH OIL CAPSULE GT SCH ×2 (06:29→18:15)
[2022-06-27] MEDS: MIDODRINE HCL 5 MG TABLET GT SCH ×3 (06:30→22:45)
[2022-06-27 08:16] LABS: CALCIUM 8.8 mg/dL (8.5-10.1); CREATININE 0.8 mg/dL (0.6-1.3); POTASSIUM 4.2 mmol/L (3.5-5.1)
[2022-06-27] MEDS: SODIUM HYPOCHLORITE 0.125% (QUARTER STRENGTH) 473 ML BOTTLE TP SCH ×2 (08:29→20:34)
[2022-06-27] MEDS: ACETAMINOPHEN 650 MG/20.3 ML LIQUID UDC GT SCH ×2 (08:29→20:34)
[2022-06-27] MEDS: ACIDOPHILUS/BULGARICUS CHEW TAB GT SCH ×2 (08:29→20:34)
[2022-06-27] MEDS: MEDIHONEY= THERAHONEY 1.5 OZ TUBE TOP SCH ×2 (08:29→20:34)
[2022-06-27] MEDS: REMEDY ESSENTIAL ZINC PASTE 113 GM TP SCH ×5 (08:30→20:35)
[2022-06-27] MEDS: HYDROGEN PEROXIDE 3% 118 ML BOTTLE TP SCH ×2 (09:39→20:35)
[2022-06-27] MEDS: MEROPENEM 1 G in IV NORMAL SALINE 100 ML IV SCH ×2 (10:43→23:10)
[2022-06-27] MEDS: SERTRALINE 25MG TABLET GT SCH (12:00)
[2022-06-27] MEDS: HYDROCODONE/APAP 5-325MG TABLET GT PRN (13:20)
[2022-06-27] MEDS: SIMVASTATIN 10 MG TABLET GT SCH (20:34)
[2022-06-27] MEDS: ASCORBIC ACID 500 MG TABLET GT SCH (20:34)
[2022-06-27] MEDS: MULTIVIT, IRON, MIN NO. 8, FA TABLET GT SCH (20:34)
[2022-06-27] MEDS: ESTROGENS,CONJU VAGINAL CREAM 42.5 GM TUBE VG SCH (20:35)
[2022-06-28] VITALS (14 sets, daily range): TEMP 97.8–98.2; O2SAT 98–99
[2022-06-28] MEDS: IPRATROPIUM BROMIDE 0.5 MG/2.5 ML NEBU NEB SCH ×6 (03:28→23:34)
[2022-06-28] MEDS: ALBUTEROL SULFATE 2.5 MG/3 ML NEBU NEB SCH ×6 (03:29→23:34)
[2022-06-28] MEDS: PROTEIN SUPPLEMENT (PROSTAT) 30 ML LIQUID GT SCH ×3 (06:00→21:45)
[2022-06-28] MEDS: OMEPRAZOLE 20 MG CAPSULE.DR GT SCH (06:52)
[2022-06-28] MEDS: OMEGA-3 FATTY ACIDS/FISH OIL CAPSULE GT SCH ×2 (06:52→17:53)
[2022-06-28] MEDS: BACLOFEN 10 MG TABLET GT SCH ×4 (06:52→17:53)
[2022-06-28] MEDS: ARGININE/GLUTAMINE/CALCIUM BMB 1 EACH POWD.PACK GT SCH ×2 (06:52→17:53)
[2022-06-28] MEDS: MIDODRINE HCL 5 MG TABLET GT SCH ×3 (06:53→21:44)
[2022-06-28] MEDS: HYDROGEN PEROXIDE 3% 118 ML BOTTLE TP SCH ×2 (07:17→21:00)
[2022-06-28] MEDS: ACETAMINOPHEN 650 MG/20.3 ML LIQUID UDC GT SCH ×2 (08:29→21:29)
[2022-06-28] MEDS: MEDIHONEY= THERAHONEY 1.5 OZ TUBE TOP SCH (08:30)
[2022-06-28] MEDS: SODIUM HYPOCHLORITE 0.125% (QUARTER STRENGTH) 473 ML BOTTLE TP SCH ×3 (08:30→21:36)
[2022-06-28] MEDS: ACIDOPHILUS/BULGARICUS CHEW TAB GT SCH ×2 (08:30→21:35)
[2022-06-28] MEDS: REMEDY ESSENTIAL ZINC PASTE 113 GM TP SCH ×4 (08:30→21:36)
[2022-06-28] MEDS ORDERED: ENOXAPARIN SODIUM 30 MG/0.3 ML DISP.SYRIN SUBCUT SCH (09:00)
[2022-06-28] MEDS ORDERED: SODIUM HYPOCHLORITE 0.125% (QUARTER STRENGTH) 473 ML BOTTLE TP PRN (10:45)
[2022-06-28] MEDS: MEROPENEM 1 G in IV NORMAL SALINE 100 ML IV SCH ×2 (11:00→23:00)
[2022-06-28] MEDS: SERTRALINE 25MG TABLET GT SCH (12:34)
[2022-06-28] MEDS: HYDROCODONE/APAP 5-325MG TABLET GT PRN (12:38)
[2022-06-28] MEDS ORDERED: APIXABAN 5 MG TABLET GT ONE (21:00)
[2022-06-28] MEDS: SIMVASTATIN 10 MG TABLET GT SCH (21:35)
[2022-06-28] MEDS: MULTIVIT, IRON, MIN NO. 8, FA TABLET GT SCH (21:35)
[2022-06-28] MEDS: ASCORBIC ACID 500 MG TABLET GT SCH (21:35)
[2022-06-28] MEDS: ESTROGENS,CONJU VAGINAL CREAM 42.5 GM TUBE VG SCH (21:36)
[2022-06-28] MEDS: TEMAZEPAM 7.5 MG CAPSULE GT PRN (21:46)
[2022-06-29] VITALS (13 sets, daily range): TEMP 98–98.4; O2SAT 96–99
[2022-06-29] MEDS: ALBUTEROL SULFATE 2.5 MG/3 ML NEBU NEB SCH ×6 (03:16→23:46)
[2022-06-29] MEDS: IPRATROPIUM BROMIDE 0.5 MG/2.5 ML NEBU NEB SCH ×6 (03:16→23:46)
[2022-06-29] MEDS: BACLOFEN 10 MG TABLET GT SCH ×4 (05:06→17:37)
[2022-06-29] MEDS: ARGININE/GLUTAMINE/CALCIUM BMB 1 EACH POWD.PACK GT SCH ×2 (05:06→17:37)
[2022-06-29] MEDS: OMEPRAZOLE 20 MG CAPSULE.DR GT SCH (05:06)
[2022-06-29] MEDS: OMEGA-3 FATTY ACIDS/FISH OIL CAPSULE GT SCH ×2 (05:06→17:37)
[2022-06-29] MEDS: PROTEIN SUPPLEMENT (PROSTAT) 30 ML LIQUID GT SCH ×3 (05:07→21:56)
[2022-06-29] MEDS: GLUCERNA 1.2 1000ML LIQUID GT PRN (05:53)
[2022-06-29] MEDS: MIDODRINE HCL 5 MG TABLET GT SCH ×3 (05:53→21:56)
[2022-06-29] MEDS: HYDROGEN PEROXIDE 3% 118 ML BOTTLE TP SCH ×2 (09:09→19:10)
[2022-06-29] MEDS: ACETAMINOPHEN 650 MG/20.3 ML LIQUID UDC GT SCH ×2 (09:17→20:30)
[2022-06-29] MEDS: APIXABAN 5 MG TABLET GT SCH ×2 (09:17→21:51)
[2022-06-29] MEDS: REMEDY ESSENTIAL ZINC PASTE 113 GM TP SCH ×3 (09:19→21:56)
[2022-06-29] MEDS: ACIDOPHILUS/BULGARICUS CHEW TAB GT SCH ×2 (09:19→21:55)
[2022-06-29] MEDS: SODIUM HYPOCHLORITE 0.125% (QUARTER STRENGTH) 473 ML BOTTLE TP SCH ×3 (09:19→21:55)
[2022-06-29] MEDS: MEROPENEM 1 G in IV NORMAL SALINE 100 ML IV SCH ×2 (11:10→23:00)
[2022-06-29] MEDS: SERTRALINE 25MG TABLET GT SCH (12:00)
[2022-06-29] MEDS: TEMAZEPAM 7.5 MG CAPSULE GT PRN (21:30)
[2022-06-29] MEDS: ASCORBIC ACID 500 MG TABLET GT SCH (21:55)
[2022-06-29] MEDS: MULTIVIT, IRON, MIN NO. 8, FA TABLET GT SCH (21:55)
[2022-06-29] MEDS: SIMVASTATIN 10 MG TABLET GT SCH (21:55)
[2022-06-29] MEDS: ESTROGENS,CONJU VAGINAL CREAM 42.5 GM TUBE VG SCH (21:56)
[2022-06-30] VITALS (15 sets, daily range): TEMP 97.5–98.9; O2SAT 98–99
[2022-06-30] MEDS: BACLOFEN 10 MG TABLET GT SCH ×4 (00:59→17:10)
[2022-06-30] MEDS: IPRATROPIUM BROMIDE 0.5 MG/2.5 ML NEBU NEB SCH ×6 (03:09→23:44)
[2022-06-30] MEDS: ALBUTEROL SULFATE 2.5 MG/3 ML NEBU NEB SCH ×6 (03:09→23:44)
[2022-06-30] MEDS: HYDROCODONE/APAP 5-325MG TABLET GT PRN ×2 (05:00→11:30)
[2022-06-30] MEDS: MIDODRINE HCL 5 MG TABLET GT SCH ×3 (06:00→21:50)
[2022-06-30] MEDS: ARGININE/GLUTAMINE/CALCIUM BMB 1 EACH POWD.PACK GT SCH ×2 (06:18→17:10)
[2022-06-30] MEDS: OMEGA-3 FATTY ACIDS/FISH OIL CAPSULE GT SCH ×2 (06:18→17:10)
[2022-06-30] MEDS: OMEPRAZOLE 20 MG CAPSULE.DR GT SCH (06:18)
[2022-06-30] MEDS: PROTEIN SUPPLEMENT (PROSTAT) 30 ML LIQUID GT SCH ×3 (06:19→21:50)
[2022-06-30] MEDS: HYDROGEN PEROXIDE 3% 118 ML BOTTLE TP SCH ×2 (08:10→21:00)
[2022-06-30] MEDS: ACETAMINOPHEN 650 MG/20.3 ML LIQUID UDC GT SCH ×2 (08:43→20:30)
[2022-06-30] MEDS: REMEDY ESSENTIAL ZINC PASTE 113 GM TP SCH (08:44)
[2022-06-30] MEDS: SODIUM HYPOCHLORITE 0.125% (QUARTER STRENGTH) 473 ML BOTTLE TP SCH (08:44)
[2022-06-30] MEDS: APIXABAN 5 MG TABLET GT SCH ×2 (08:44→21:00)
[2022-06-30] MEDS: ACIDOPHILUS/BULGARICUS CHEW TAB GT SCH ×2 (08:44→21:47)
[2022-06-30] MEDS: SERTRALINE 25MG TABLET GT SCH (12:00)
[2022-06-30] MEDS: CEFTRIAXONE 1 G in IV DEXTROSE 5% 50 ML IV SCH (13:00)
[2022-06-30] MEDS: ASCORBIC ACID 500 MG TABLET GT SCH (21:47)
[2022-06-30] MEDS: MULTIVIT, IRON, MIN NO. 8, FA TABLET GT SCH (21:47)
[2022-06-30] MEDS: SIMVASTATIN 10 MG TABLET GT SCH (21:47)
[2022-06-30] MEDS: ESTROGENS,CONJU VAGINAL CREAM 42.5 GM TUBE VG SCH (21:48)
[2022-06-30] MEDS: TEMAZEPAM 7.5 MG CAPSULE GT PRN (22:09)
[2022-07-01] VITALS (14 sets, daily range): TEMP 98.8–99; O2SAT 98–99
[2022-07-01] MEDS: IPRATROPIUM BROMIDE 0.5 MG/2.5 ML NEBU NEB SCH ×6 (03:25→23:03)
[2022-07-01] MEDS: ALBUTEROL SULFATE 2.5 MG/3 ML NEBU NEB SCH ×6 (03:25→23:03)
[2022-07-01] MEDS: HYDROCODONE/APAP 5-325MG TABLET GT PRN ×2 (04:00→11:30)
[2022-07-01] MEDS: PROTEIN SUPPLEMENT (PROSTAT) 30 ML LIQUID GT SCH ×3 (05:31→22:00)
[2022-07-01] MEDS: BACLOFEN 10 MG TABLET GT SCH ×4 (05:31→17:12)
[2022-07-01] MEDS: OMEGA-3 FATTY ACIDS/FISH OIL CAPSULE GT SCH ×2 (05:31→17:12)
[2022-07-01] MEDS: MIDODRINE HCL 5 MG TABLET GT SCH ×3 (05:31→22:00)
[2022-07-01] MEDS: OMEPRAZOLE 20 MG CAPSULE.DR GT SCH (05:31)
[2022-07-01] MEDS: ARGININE/GLUTAMINE/CALCIUM BMB 1 EACH POWD.PACK GT SCH ×2 (05:31→17:12)
[2022-07-01] MEDS: HYDROGEN PEROXIDE 3% 118 ML BOTTLE TP SCH ×2 (07:45→21:24)
[2022-07-01] MEDS ORDERED: REMEDY ESSENTIAL ZINC PASTE 113 GM TP PRN (08:45)
[2022-07-01] MEDS ORDERED: SODIUM HYPOCHLORITE 0.125% (QUARTER STRENGTH) 473 ML BOTTLE TP PRN (08:45)
[2022-07-01] MEDS: ACETAMINOPHEN 650 MG/20.3 ML LIQUID UDC GT SCH ×2 (09:14→20:30)
[2022-07-01] MEDS: ACIDOPHILUS/BULGARICUS CHEW TAB GT SCH ×2 (09:15→21:00)
[2022-07-01] MEDS: SODIUM HYPOCHLORITE 0.125% (QUARTER STRENGTH) 473 ML BOTTLE TP SCH ×3 (09:15→21:00)
[2022-07-01] MEDS: APIXABAN 5 MG TABLET GT SCH ×2 (09:15→21:00)
[2022-07-01] MEDS: REMEDY ESSENTIAL ZINC PASTE 113 GM TP SCH ×3 (09:15→21:00)
[2022-07-01] MEDS: SERTRALINE 25MG TABLET GT SCH (11:41)
[2022-07-01] MEDS: CEFTRIAXONE 1 G in IV DEXTROSE 5% 50 ML IV SCH (12:36)
[2022-07-01] MEDS: SIMVASTATIN 10 MG TABLET GT SCH (21:00)
[2022-07-01] MEDS: ASCORBIC ACID 500 MG TABLET GT SCH (21:00)
[2022-07-01] MEDS: ESTROGENS,CONJU VAGINAL CREAM 42.5 GM TUBE VG SCH (21:00)
[2022-07-01] MEDS: MULTIVIT, IRON, MIN NO. 8, FA TABLET GT SCH (21:00)
[2022-07-02] VITALS (14 sets, daily range): TEMP 97.7–99.1; O2SAT 98–99
[2022-07-02] MEDS: BACLOFEN 10 MG TABLET GT SCH ×5 (00:11→23:17)
[2022-07-02] MEDS: ALBUTEROL SULFATE 2.5 MG/3 ML NEBU NEB SCH ×6 (03:18→23:04)
[2022-07-02] MEDS: IPRATROPIUM BROMIDE 0.5 MG/2.5 ML NEBU NEB SCH ×6 (03:18→23:04)
[2022-07-02] MEDS: MIDODRINE HCL 5 MG TABLET GT SCH ×3 (06:00→21:40)
[2022-07-02] MEDS: GLUCERNA 1.2 1000ML LIQUID GT PRN (06:00)
[2022-07-02] MEDS: OMEPRAZOLE 20 MG CAPSULE.DR GT SCH (06:52)
[2022-07-02] MEDS: PROTEIN SUPPLEMENT (PROSTAT) 30 ML LIQUID GT SCH ×3 (06:52→21:44)
[2022-07-02] MEDS: OMEGA-3 FATTY ACIDS/FISH OIL CAPSULE GT SCH ×2 (06:52→17:47)
[2022-07-02] MEDS: ARGININE/GLUTAMINE/CALCIUM BMB 1 EACH POWD.PACK GT SCH ×2 (06:52→17:47)
[2022-07-02] MEDS: ACETAMINOPHEN 650 MG/20.3 ML LIQUID UDC GT SCH ×2 (08:19→20:30)
[2022-07-02] MEDS: ACIDOPHILUS/BULGARICUS CHEW TAB GT SCH ×2 (08:19→21:41)
[2022-07-02] MEDS: REMEDY ESSENTIAL ZINC PASTE 113 GM TP SCH ×3 (08:20→21:44)
[2022-07-02] MEDS: SODIUM HYPOCHLORITE 0.125% (QUARTER STRENGTH) 473 ML BOTTLE TP SCH ×3 (08:20→21:41)
[2022-07-02] MEDS: APIXABAN 5 MG TABLET GT SCH ×2 (08:29→21:47)
[2022-07-02] MEDS: HYDROGEN PEROXIDE 3% 118 ML BOTTLE TP SCH ×2 (09:07→21:16)
[2022-07-02] MEDS: SERTRALINE 25MG TABLET GT SCH (12:00)
[2022-07-02] MEDS: CEFTRIAXONE 1 G in IV DEXTROSE 5% 50 ML IV SCH (13:13)
[2022-07-02] MEDS: HYDROCODONE/APAP 5-325MG TABLET GT PRN (13:24)
[2022-07-02] MEDS: ASCORBIC ACID 500 MG TABLET GT SCH (21:41)
[2022-07-02] MEDS: SIMVASTATIN 10 MG TABLET GT SCH (21:41)
[2022-07-02] MEDS: MULTIVIT, IRON, MIN NO. 8, FA TABLET GT SCH (21:41)
[2022-07-02] MEDS: ESTROGENS,CONJU VAGINAL CREAM 42.5 GM TUBE VG SCH (21:44)
[2022-07-02] MEDS: TEMAZEPAM 7.5 MG CAPSULE GT PRN ×2 (21:52→23:17)
[2022-07-03] VITALS (14 sets, daily range): TEMP 97.8–99.1; O2SAT 98–99
[2022-07-03] MEDS: IPRATROPIUM BROMIDE 0.5 MG/2.5 ML NEBU NEB SCH ×6 (03:15→23:01)
[2022-07-03] MEDS: ALBUTEROL SULFATE 2.5 MG/3 ML NEBU NEB SCH ×6 (03:15→23:01)
[2022-07-03] MEDS: PROTEIN SUPPLEMENT (PROSTAT) 30 ML LIQUID GT SCH ×3 (05:03→22:00)
[2022-07-03] MEDS: OMEGA-3 FATTY ACIDS/FISH OIL CAPSULE GT SCH ×2 (05:03→17:51)
[2022-07-03] MEDS: OMEPRAZOLE 20 MG CAPSULE.DR GT SCH (05:05)
[2022-07-03] MEDS: ARGININE/GLUTAMINE/CALCIUM BMB 1 EACH POWD.PACK GT SCH ×2 (05:05→17:51)
[2022-07-03] MEDS: BACLOFEN 10 MG TABLET GT SCH ×3 (05:05→17:51)
[2022-07-03] MEDS: MIDODRINE HCL 5 MG TABLET GT SCH ×3 (05:43→21:59)
[2022-07-03] MEDS: HYDROCODONE/APAP 5-325MG TABLET GT PRN ×2 (05:51→15:58)
[2022-07-03] MEDS: ACETAMINOPHEN 650 MG/20.3 ML LIQUID UDC GT SCH ×2 (08:57→20:30)
[2022-07-03] MEDS: APIXABAN 5 MG TABLET GT SCH ×2 (08:58→21:57)
[2022-07-03] MEDS: SODIUM HYPOCHLORITE 0.125% (QUARTER STRENGTH) 473 ML BOTTLE TP SCH ×3 (08:58→21:58)
[2022-07-03] MEDS: ACIDOPHILUS/BULGARICUS CHEW TAB GT SCH ×2 (08:58→21:58)
[2022-07-03] MEDS: REMEDY ESSENTIAL ZINC PASTE 113 GM TP SCH ×3 (08:58→21:58)
[2022-07-03] MEDS: HYDROGEN PEROXIDE 3% 118 ML BOTTLE TP SCH ×2 (09:00→21:05)
[2022-07-03] MEDS: GLUCERNA 1.2 1000ML LIQUID GT PRN (12:33)
[2022-07-03] MEDS: SERTRALINE 25MG TABLET GT SCH (12:33)
[2022-07-03] MEDS: CEFTRIAXONE 1 G in IV DEXTROSE 5% 50 ML IV SCH (21:55)
[2022-07-03] MEDS: ASCORBIC ACID 500 MG TABLET GT SCH (21:58)
[2022-07-03] MEDS: ESTROGENS,CONJU VAGINAL CREAM 42.5 GM TUBE VG SCH (21:58)
[2022-07-03] MEDS: SIMVASTATIN 10 MG TABLET GT SCH (21:58)
[2022-07-03] MEDS: MULTIVIT, IRON, MIN NO. 8, FA TABLET GT SCH (21:58)
[2022-07-03] MEDS: TEMAZEPAM 7.5 MG CAPSULE GT PRN ×2 (22:00→23:00)
[2022-07-04] VITALS (14 sets, daily range): TEMP 97.5–97.8; O2SAT 98–99
[2022-07-04] MEDS: BACLOFEN 10 MG TABLET GT SCH ×5 (00:31→23:17)
[2022-07-04] MEDS: IPRATROPIUM BROMIDE 0.5 MG/2.5 ML NEBU NEB SCH ×6 (03:13→23:43)
[2022-07-04] MEDS: ALBUTEROL SULFATE 2.5 MG/3 ML NEBU NEB SCH ×6 (03:14→23:43)
[2022-07-04] MEDS: HYDROCODONE/APAP 5-325MG TABLET GT PRN (05:44)
[2022-07-04] MEDS: PROTEIN SUPPLEMENT (PROSTAT) 30 ML LIQUID GT SCH ×3 (06:00→21:12)
[2022-07-04] MEDS: MIDODRINE HCL 5 MG TABLET GT SCH ×3 (06:41→21:11)
[2022-07-04] MEDS: OMEGA-3 FATTY ACIDS/FISH OIL CAPSULE GT SCH ×2 (06:41→17:05)
[2022-07-04] MEDS: OMEPRAZOLE 20 MG CAPSULE.DR GT SCH (06:41)
[2022-07-04] MEDS: ARGININE/GLUTAMINE/CALCIUM BMB 1 EACH POWD.PACK GT SCH ×2 (06:41→17:05)
[2022-07-04] MEDS: ACETAMINOPHEN 650 MG/20.3 ML LIQUID UDC GT SCH ×2 (08:30→21:08)
[2022-07-04] MEDS: SODIUM HYPOCHLORITE 0.125% (QUARTER STRENGTH) 473 ML BOTTLE TP SCH ×3 (09:36→21:10)
[2022-07-04] MEDS: ACIDOPHILUS/BULGARICUS CHEW TAB GT SCH ×2 (09:36→21:10)
[2022-07-04] MEDS: REMEDY ESSENTIAL ZINC PASTE 113 GM TP SCH ×3 (09:36→21:11)
[2022-07-04] MEDS: APIXABAN 5 MG TABLET GT SCH ×2 (09:36→21:09)
[2022-07-04] MEDS: HYDROGEN PEROXIDE 3% 118 ML BOTTLE TP SCH ×2 (09:42→20:34)
[2022-07-04 11:02] LABS: BASOPHILS # (AUTO) 0.1 K/UL (0.0-0.2); BASOPHILS % (AUTO) 0.6 % (0.0-2.0); EOSINOPHILS # (AUTO) 0.5 K/uL (0.0-0.7); EOSINOPHILS % (AUTO) 5.4 % (0.0-7.0); HEMATOCRIT 34.3 % (31.2-41.9); HEMOGLOBIN 10.9 g/dL (10.9-14.3); LYMPHOCYTES # (AUTO) 2.2 K/uL (0.8-4.8); LYMPHOCYTES % (AUTO) 24.7 % (20.5-51.5); MEAN CORPUSCULAR HEMOGLOBIN 28.6 uug (24.7-32.8); MEAN CORPUSCULAR HGB CONC 32 g/dL (32.3-35.6); MEAN CORPUSCULAR VOLUME 90.1 fL (75.5-95.3); MONOCYTES # (AUTO) 0.9 K/uL (0.1-1.30); MONOCYTES % (AUTO) 10.2 % (0.0-11.0); NEUTROPHILS # (AUTO) 5.3 K/uL (1.8-8.9); NEUTROPHILS % (AUTO) 59.1 % (38.5-71.5); PLATELET COUNT (AUTO) 208 K/uL (179-408); RED CELL DISTRIBUTION WIDTH 18.8 % (12.3-17.7); WHITE BLOOD COUNT (AUTO) 8.9 K/uL (3.8-11.8)
[2022-07-04 11:07] LABS: DIFFERENTIAL COMMENT 1
[2022-07-04 11:23] LABS: CALCIUM 8.9 mg/dL (8.5-10.1); CREATININE 0.7 mg/dL (0.6-1.3); MAGNESIUM 2.1 mg/dL (1.8-2.4); PHOSPHOROUS 4.1 mg/dL (2.5-4.9)
[2022-07-04] MEDS: SERTRALINE 25MG TABLET GT SCH (12:24)
[2022-07-04] MEDS: TEMAZEPAM 7.5 MG CAPSULE GT PRN ×2 (21:00→22:00)
[2022-07-04] MEDS: MULTIVIT, IRON, MIN NO. 8, FA TABLET GT SCH (21:10)
[2022-07-04] MEDS: SIMVASTATIN 10 MG TABLET GT SCH (21:10)
[2022-07-04] MEDS: ASCORBIC ACID 500 MG TABLET GT SCH (21:10)
[2022-07-04] MEDS: ESTROGENS,CONJU VAGINAL CREAM 42.5 GM TUBE VG SCH (21:11)
[2022-07-05] VITALS (14 sets, daily range): TEMP 97.8–98.2; O2SAT 98–99
[2022-07-05] MEDS: ALBUTEROL SULFATE 2.5 MG/3 ML NEBU NEB SCH ×6 (03:50→23:20)
[2022-07-05] MEDS: IPRATROPIUM BROMIDE 0.5 MG/2.5 ML NEBU NEB SCH ×6 (03:50→23:20)
[2022-07-05] MEDS: OMEPRAZOLE 20 MG CAPSULE.DR GT SCH (05:47)
[2022-07-05] MEDS: ARGININE/GLUTAMINE/CALCIUM BMB 1 EACH POWD.PACK GT SCH ×2 (05:47→17:05)
[2022-07-05] MEDS: PROTEIN SUPPLEMENT (PROSTAT) 30 ML LIQUID GT SCH ×4 (05:47→22:00)
[2022-07-05] MEDS: MIDODRINE HCL 5 MG TABLET GT SCH ×3 (05:47→21:14)
[2022-07-05] MEDS: BACLOFEN 10 MG TABLET GT SCH ×3 (05:47→17:05)
[2022-07-05] MEDS: OMEGA-3 FATTY ACIDS/FISH OIL CAPSULE GT SCH ×2 (05:47→17:05)
[2022-07-05] MEDS: HYDROCODONE/APAP 5-325MG TABLET GT PRN ×2 (06:30→22:30)
[2022-07-05] MEDS: ACETAMINOPHEN 650 MG/20.3 ML LIQUID UDC GT SCH ×2 (08:30→20:30)
[2022-07-05] MEDS: ACIDOPHILUS/BULGARICUS CHEW TAB GT SCH ×2 (09:46→20:36)
[2022-07-05] MEDS: SODIUM HYPOCHLORITE 0.125% (QUARTER STRENGTH) 473 ML BOTTLE TP SCH ×3 (09:46→20:37)
[2022-07-05] MEDS: REMEDY ESSENTIAL ZINC PASTE 113 GM TP SCH ×3 (09:47→20:37)
[2022-07-05] MEDS: APIXABAN 5 MG TABLET GT SCH ×2 (09:50→20:36)
[2022-07-05] MEDS: HYDROGEN PEROXIDE 3% 118 ML BOTTLE TP SCH ×2 (09:56→19:40)
[2022-07-05] MEDS: SERTRALINE 25MG TABLET GT SCH (12:45)
[2022-07-05] MEDS: MULTIVIT, IRON, MIN NO. 8, FA TABLET GT SCH (20:36)
[2022-07-05] MEDS: ASCORBIC ACID 500 MG TABLET GT SCH (20:36)
[2022-07-05] MEDS: SIMVASTATIN 10 MG TABLET GT SCH (20:36)
[2022-07-05] MEDS: ESTROGENS,CONJU VAGINAL CREAM 42.5 GM TUBE VG SCH (20:37)
[2022-07-05] MEDS: GLUCERNA 1.2 1000ML LIQUID GT PRN (20:50)
[2022-07-05] MEDS: TEMAZEPAM 7.5 MG CAPSULE GT PRN (21:00)
[2022-07-06] VITALS (14 sets, daily range): TEMP 98–98.8; O2SAT 98–99
[2022-07-06] MEDS: BACLOFEN 10 MG TABLET GT SCH ×4 (00:08→18:14)
[2022-07-06] MEDS: IPRATROPIUM BROMIDE 0.5 MG/2.5 ML NEBU NEB SCH ×6 (03:47→22:53)
[2022-07-06] MEDS: ALBUTEROL SULFATE 2.5 MG/3 ML NEBU NEB SCH ×6 (03:47→22:53)
[2022-07-06] MEDS: OMEGA-3 FATTY ACIDS/FISH OIL CAPSULE GT SCH ×2 (05:36→18:14)
[2022-07-06] MEDS: OMEPRAZOLE 20 MG CAPSULE.DR GT SCH (05:36)
[2022-07-06] MEDS: ARGININE/GLUTAMINE/CALCIUM BMB 1 EACH POWD.PACK GT SCH ×2 (05:36→18:14)
[2022-07-06] MEDS: MIDODRINE HCL 5 MG TABLET GT SCH ×3 (05:37→21:06)
[2022-07-06] MEDS: PROTEIN SUPPLEMENT (PROSTAT) 30 ML LIQUID GT SCH ×3 (05:38→21:07)
[2022-07-06] MEDS: HYDROCODONE/APAP 5-325MG TABLET GT PRN ×3 (05:45→21:30)
[2022-07-06] MEDS: ACETAMINOPHEN 650 MG/20.3 ML LIQUID UDC GT SCH ×2 (09:16→20:30)
[2022-07-06] MEDS: REMEDY ESSENTIAL ZINC PASTE 113 GM TP SCH ×3 (09:17→21:05)
[2022-07-06] MEDS: ACIDOPHILUS/BULGARICUS CHEW TAB GT SCH ×2 (09:17→21:03)
[2022-07-06] MEDS: SODIUM HYPOCHLORITE 0.125% (QUARTER STRENGTH) 473 ML BOTTLE TP SCH ×3 (09:17→21:05)
[2022-07-06] MEDS: HYDROGEN PEROXIDE 3% 118 ML BOTTLE TP SCH ×2 (09:26→19:02)
[2022-07-06] MEDS: APIXABAN 5 MG TABLET GT SCH ×2 (09:55→21:03)
[2022-07-06] MEDS: SERTRALINE 25MG TABLET GT SCH (12:12)
[2022-07-06] MEDS: TEMAZEPAM 7.5 MG CAPSULE GT PRN (21:00)
[2022-07-06] MEDS: MULTIVIT, IRON, MIN NO. 8, FA TABLET GT SCH (21:04)
[2022-07-06] MEDS: ASCORBIC ACID 500 MG TABLET GT SCH (21:04)
[2022-07-06] MEDS: SIMVASTATIN 10 MG TABLET GT SCH (21:05)
[2022-07-06] MEDS: ESTROGENS,CONJU VAGINAL CREAM 42.5 GM TUBE VG SCH (21:05)
[2022-07-07] VITALS (15 sets, daily range): TEMP 98–98.6; O2SAT 98–99
[2022-07-07] MEDS: BACLOFEN 10 MG TABLET GT SCH ×4 (00:11→18:06)
[2022-07-07] MEDS: ALBUTEROL SULFATE 2.5 MG/3 ML NEBU NEB SCH ×6 (03:47→23:25)
[2022-07-07] MEDS: IPRATROPIUM BROMIDE 0.5 MG/2.5 ML NEBU NEB SCH ×6 (03:47→23:25)
[2022-07-07] MEDS: HYDROCODONE/APAP 5-325MG TABLET GT PRN ×3 (04:45→22:00)
[2022-07-07] MEDS: GLUCERNA 1.2 1000ML LIQUID GT PRN (04:59)
[2022-07-07] MEDS: OMEGA-3 FATTY ACIDS/FISH OIL CAPSULE GT SCH ×2 (05:59→18:06)
[2022-07-07] MEDS: ARGININE/GLUTAMINE/CALCIUM BMB 1 EACH POWD.PACK GT SCH ×2 (05:59→18:06)
[2022-07-07] MEDS: OMEPRAZOLE 20 MG CAPSULE.DR GT SCH (05:59)
[2022-07-07] MEDS: MIDODRINE HCL 5 MG TABLET GT SCH ×3 (06:00→21:23)
[2022-07-07] MEDS: SODIUM HYPOCHLORITE 0.125% (QUARTER STRENGTH) 473 ML BOTTLE TP SCH ×3 (08:21→21:22)
[2022-07-07] MEDS: ACETAMINOPHEN 650 MG/20.3 ML LIQUID UDC GT SCH ×2 (08:21→20:30)
[2022-07-07] MEDS: ACIDOPHILUS/BULGARICUS CHEW TAB GT SCH ×2 (08:21→21:21)
[2022-07-07] MEDS: REMEDY ESSENTIAL ZINC PASTE 113 GM TP SCH ×3 (08:23→21:22)
[2022-07-07] MEDS: APIXABAN 5 MG TABLET GT SCH ×2 (08:24→21:21)
[2022-07-07] MEDS: HYDROGEN PEROXIDE 3% 118 ML BOTTLE TP SCH ×2 (09:00→19:31)
[2022-07-07] MEDS: SERTRALINE 25MG TABLET GT SCH (12:55)
[2022-07-07] MEDS: PROTEIN SUPPLEMENT (PROSTAT) 30 ML LIQUID GT SCH ×2 (13:15→21:23)
[2022-07-07] MEDS: ASCORBIC ACID 500 MG TABLET GT SCH (21:22)
[2022-07-07] MEDS: SIMVASTATIN 10 MG TABLET GT SCH (21:22)
[2022-07-07] MEDS: MULTIVIT, IRON, MIN NO. 8, FA TABLET GT SCH (21:22)
[2022-07-07] MEDS: ESTROGENS,CONJU VAGINAL CREAM 42.5 GM TUBE VG SCH (21:22)
[2022-07-07] MEDS: TEMAZEPAM 7.5 MG CAPSULE GT PRN (21:30)
[2022-07-08] VITALS (14 sets, daily range): TEMP 98.5–99.1; O2SAT 98–99
[2022-07-08] MEDS: BACLOFEN 10 MG TABLET GT SCH ×5 (00:28→23:53)
[2022-07-08] MEDS: IPRATROPIUM BROMIDE 0.5 MG/2.5 ML NEBU NEB SCH ×6 (03:31→23:34)
[2022-07-08] MEDS: ALBUTEROL SULFATE 2.5 MG/3 ML NEBU NEB SCH ×6 (03:31→23:34)
[2022-07-08] MEDS: HYDROCODONE/APAP 5-325MG TABLET GT PRN ×3 (04:30→18:00)
[2022-07-08] MEDS: OMEPRAZOLE 20 MG CAPSULE.DR GT SCH (05:26)
[2022-07-08] MEDS: OMEGA-3 FATTY ACIDS/FISH OIL CAPSULE GT SCH ×2 (05:26→17:51)
[2022-07-08] MEDS: ARGININE/GLUTAMINE/CALCIUM BMB 1 EACH POWD.PACK GT SCH ×2 (05:26→17:51)
[2022-07-08] MEDS: MIDODRINE HCL 5 MG TABLET GT SCH ×3 (05:27→22:13)
[2022-07-08] MEDS: PROTEIN SUPPLEMENT (PROSTAT) 30 ML LIQUID GT SCH ×3 (05:27→22:00)
[2022-07-08] MEDS: HYDROGEN PEROXIDE 3% 118 ML BOTTLE TP SCH ×2 (08:40→18:50)
[2022-07-08] MEDS: ACIDOPHILUS/BULGARICUS CHEW TAB GT SCH ×2 (09:20→21:00)
[2022-07-08] MEDS: ACETAMINOPHEN 650 MG/20.3 ML LIQUID UDC GT SCH ×2 (09:20→20:30)
[2022-07-08] MEDS: APIXABAN 5 MG TABLET GT SCH ×2 (09:20→21:00)
[2022-07-08] MEDS: SODIUM HYPOCHLORITE 0.125% (QUARTER STRENGTH) 473 ML BOTTLE TP SCH ×3 (09:21→21:00)
[2022-07-08] MEDS: REMEDY ESSENTIAL ZINC PASTE 113 GM TP SCH ×3 (09:22→21:00)
[2022-07-08] MEDS: SERTRALINE 25MG TABLET GT SCH (12:00)
[2022-07-08] MEDS: GLUCERNA 1.2 1000ML LIQUID GT PRN (14:12)
[2022-07-08 19:17] LABS: *BILIRUBIN,URIN 1+ (NEGATIVE); *BLOOD, URINE 3+ (NEGATIVE); *CLARITY,URINE SLIGHTLY CLOUDY (CLEAR); *COLOR,URINE Brown (YELLOW); *KETONES,URINE NEGATIVE (NEGATIVE); *PROTEIN,URINE 3+ (NEGATIVE); *UROBILINOGEN,URINE 0.2 E.U./dl (NORMAL); LEUKOCYTE ESTERASE ,URINE 3+ (NEGATIVE); NITRITE, URINE NEGATIVE (NEGATIVE); UGLUCOSE NEGATIVE (NEGATIVE)
[2022-07-08 19:22] LABS: RBC,URINE TNTC /HPF (0-3); WBC,URINE TNTC /HPF (0-3)
[2022-07-08 19:24] LABS: BACTERIA,URINE FEW /HPF (NONE SEEN); SQUAMOUS EPITHELIAL CELL,UR NONE SEEN /HPF (NONE SEEN)
[2022-07-08 19:25] LABS: MUCUS,URINE NONE SEEN /LPF (0-FEW)
[2022-07-08] MEDS: SIMVASTATIN 10 MG TABLET GT SCH (21:00)
[2022-07-08] MEDS: MULTIVIT, IRON, MIN NO. 8, FA TABLET GT SCH (21:00)
[2022-07-08] MEDS: ASCORBIC ACID 500 MG TABLET GT SCH (21:00)
[2022-07-08] MEDS: ESTROGENS,CONJU VAGINAL CREAM 42.5 GM TUBE VG SCH (21:00)
[2022-07-09] VITALS (15 sets, daily range): TEMP 98.3–100.1; O2SAT 97–99
[2022-07-09] MEDS: IPRATROPIUM BROMIDE 0.5 MG/2.5 ML NEBU NEB SCH ×6 (03:07→23:40)
[2022-07-09] MEDS: ALBUTEROL SULFATE 2.5 MG/3 ML NEBU NEB SCH ×6 (03:07→23:40)
[2022-07-09] MEDS: BACLOFEN 10 MG TABLET GT SCH ×3 (05:06→17:43)
[2022-07-09] MEDS: OMEGA-3 FATTY ACIDS/FISH OIL CAPSULE GT SCH ×2 (05:06→17:42)
[2022-07-09] MEDS: OMEPRAZOLE 20 MG CAPSULE.DR GT SCH (05:06)
[2022-07-09] MEDS: ARGININE/GLUTAMINE/CALCIUM BMB 1 EACH POWD.PACK GT SCH ×2 (05:06→17:42)
[2022-07-09] MEDS: MIDODRINE HCL 5 MG TABLET GT SCH ×3 (05:07→22:00)
[2022-07-09] MEDS: PROTEIN SUPPLEMENT (PROSTAT) 30 ML LIQUID GT SCH ×3 (05:07→22:00)
[2022-07-09] MEDS: HYDROGEN PEROXIDE 3% 118 ML BOTTLE TP SCH ×2 (07:35→19:32)
[2022-07-09] MEDS: ACIDOPHILUS/BULGARICUS CHEW TAB GT SCH ×2 (08:10→20:08)
[2022-07-09] MEDS: HYDROCODONE/APAP 5-325MG TABLET GT PRN ×2 (08:13→17:44)
[2022-07-09] MEDS: APIXABAN 5 MG TABLET GT SCH ×2 (08:17→21:00)
[2022-07-09] MEDS: SODIUM HYPOCHLORITE 0.125% (QUARTER STRENGTH) 473 ML BOTTLE TP SCH ×3 (09:00→20:36)
[2022-07-09] MEDS: REMEDY ESSENTIAL ZINC PASTE 113 GM TP SCH ×3 (09:00→20:36)
[2022-07-09] MEDS: ACETAMINOPHEN 650 MG/20.3 ML LIQUID UDC GT SCH ×2 (09:10→20:07)
[2022-07-09] MEDS: SERTRALINE 25MG TABLET GT SCH (12:14)
[2022-07-09] MEDS: GLUCERNA 1.2 1000ML LIQUID GT PRN (17:43)
[2022-07-09] MEDS: SIMVASTATIN 10 MG TABLET GT SCH (20:11)
[2022-07-09] MEDS: MULTIVIT, IRON, MIN NO. 8, FA TABLET GT SCH (20:11)
[2022-07-09] MEDS: ASCORBIC ACID 500 MG TABLET GT SCH (20:11)
[2022-07-09] MEDS: ESTROGENS,CONJU VAGINAL CREAM 42.5 GM TUBE VG SCH (20:36)
[2022-07-10] VITALS (13 sets, daily range): TEMP 97.7–98.2; O2SAT 96–99
[2022-07-10] MEDS: BACLOFEN 10 MG TABLET GT SCH ×5 (00:38→23:46)
[2022-07-10] MEDS: ALBUTEROL SULFATE 2.5 MG/3 ML NEBU NEB SCH ×8 (03:37→23:34)
[2022-07-10] MEDS: IPRATROPIUM BROMIDE 0.5 MG/2.5 ML NEBU NEB SCH ×8 (03:37→23:34)
[2022-07-10] MEDS: OMEPRAZOLE 20 MG CAPSULE.DR GT SCH (05:03)
[2022-07-10] MEDS: OMEGA-3 FATTY ACIDS/FISH OIL CAPSULE GT SCH ×2 (05:03→17:23)
[2022-07-10] MEDS: MIDODRINE HCL 5 MG TABLET GT SCH ×3 (05:03→21:15)
[2022-07-10] MEDS: ARGININE/GLUTAMINE/CALCIUM BMB 1 EACH POWD.PACK GT SCH ×2 (05:03→17:23)
[2022-07-10] MEDS: PROTEIN SUPPLEMENT (PROSTAT) 30 ML LIQUID GT SCH ×3 (05:40→21:15)
[2022-07-10] MEDS: HYDROGEN PEROXIDE 3% 118 ML BOTTLE TP SCH ×2 (07:11→19:21)
[2022-07-10] MEDS: ACETAMINOPHEN 650 MG/20.3 ML LIQUID UDC GT SCH ×2 (08:30→21:14)
[2022-07-10] MEDS: SODIUM HYPOCHLORITE 0.125% (QUARTER STRENGTH) 473 ML BOTTLE TP SCH ×3 (09:36→21:15)
[2022-07-10] MEDS: ACIDOPHILUS/BULGARICUS CHEW TAB GT SCH ×2 (09:36→21:14)
[2022-07-10] MEDS: APIXABAN 5 MG TABLET GT SCH ×2 (09:36→21:18)
[2022-07-10] MEDS: REMEDY ESSENTIAL ZINC PASTE 113 GM TP SCH ×3 (09:36→21:15)
[2022-07-10] MEDS: SERTRALINE 25MG TABLET GT SCH (12:59)
[2022-07-10] MEDS: HYDROCODONE/APAP 5-325MG TABLET GT PRN ×3 (14:00→22:48)
[2022-07-10] MEDS: SIMVASTATIN 10 MG TABLET GT SCH (21:14)
[2022-07-10] MEDS: ASCORBIC ACID 500 MG TABLET GT SCH (21:14)
[2022-07-10] MEDS: MULTIVIT, IRON, MIN NO. 8, FA TABLET GT SCH (21:14)
[2022-07-10] MEDS: ESTROGENS,CONJU VAGINAL CREAM 42.5 GM TUBE VG SCH (21:15)
[2022-07-10] MEDS: TEMAZEPAM 7.5 MG CAPSULE GT PRN (23:52)
[2022-07-11] VITALS (14 sets, daily range): TEMP 97.9; O2SAT 97–99
[2022-07-11] MEDS: ALBUTEROL SULFATE 2.5 MG/3 ML NEBU NEB SCH ×6 (03:20→23:30)
[2022-07-11] MEDS: IPRATROPIUM BROMIDE 0.5 MG/2.5 ML NEBU NEB SCH ×6 (03:20→23:30)
[2022-07-11] MEDS: ARGININE/GLUTAMINE/CALCIUM BMB 1 EACH POWD.PACK GT SCH ×2 (05:13→17:06)
[2022-07-11] MEDS: BACLOFEN 10 MG TABLET GT SCH ×3 (05:13→17:09)
[2022-07-11] MEDS: OMEGA-3 FATTY ACIDS/FISH OIL CAPSULE GT SCH ×2 (05:13→17:06)
[2022-07-11] MEDS: MIDODRINE HCL 5 MG TABLET GT SCH ×3 (05:14→22:14)
[2022-07-11] MEDS: OMEPRAZOLE 20 MG CAPSULE.DR GT SCH (05:14)
[2022-07-11] MEDS: PROTEIN SUPPLEMENT (PROSTAT) 30 ML LIQUID GT SCH ×3 (05:14→22:14)
[2022-07-11] MEDS: HYDROCODONE/APAP 5-325MG TABLET GT PRN ×2 (05:16→14:08)
[2022-07-11 07:48] LABS: BASOPHILS # (AUTO) 0.1 K/UL (0.0-0.2); BASOPHILS % (AUTO) 0.6 % (0.0-2.0); EOSINOPHILS # (AUTO) 0.6 K/uL (0.0-0.7); EOSINOPHILS % (AUTO) 5.3 % (0.0-7.0); HEMATOCRIT 35.2 % (31.2-41.9); HEMOGLOBIN 11.1 g/dL (10.9-14.3); LYMPHOCYTES # (AUTO) 1.7 K/uL (0.8-4.8); LYMPHOCYTES % (AUTO) 14.5 % (20.5-51.5); MEAN CORPUSCULAR HEMOGLOBIN 27.7 uug (24.7-32.8); MEAN CORPUSCULAR HGB CONC 32 g/dL (32.3-35.6); MONOCYTES # (AUTO) 0.9 K/uL (0.1-1.30); MONOCYTES % (AUTO) 7.4 % (0.0-11.0); NEUTROPHILS # (AUTO) 8.4 K/uL (1.8-8.9); NEUTROPHILS % (AUTO) 72.2 % (38.5-71.5); PLATELET COUNT (AUTO) 247 K/uL (179-408); RED CELL DISTRIBUTION WIDTH 18.6 % (12.3-17.7); WHITE BLOOD COUNT (AUTO) 11.7 K/uL (3.8-11.8)
[2022-07-11 07:56] LABS: DIFFERENTIAL COMMENT 1
[2022-07-11 08:02] LABS: CALCIUM 9.6 mg/dL (8.5-10.1); CREATININE 0.7 mg/dL (0.6-1.3); MAGNESIUM 2.3 mg/dL (1.8-2.4); PHOSPHOROUS 4.7 mg/dL (2.5-4.9); POTASSIUM 4.2 mmol/L (3.5-5.1)
[2022-07-11] MEDS: ACETAMINOPHEN 650 MG/20.3 ML LIQUID UDC GT SCH ×2 (08:34→20:30)
[2022-07-11] MEDS: APIXABAN 5 MG TABLET GT SCH ×2 (08:35→21:00)
[2022-07-11] MEDS: ACIDOPHILUS/BULGARICUS CHEW TAB GT SCH ×2 (08:36→21:00)
[2022-07-11] MEDS: REMEDY ESSENTIAL ZINC PASTE 113 GM TP SCH ×3 (08:36→21:00)
[2022-07-11] MEDS: SODIUM HYPOCHLORITE 0.125% (QUARTER STRENGTH) 473 ML BOTTLE TP SCH ×3 (08:37→21:00)
[2022-07-11] MEDS: HYDROGEN PEROXIDE 3% 118 ML BOTTLE TP SCH ×2 (09:16→19:20)
[2022-07-11] MEDS: SERTRALINE 25MG TABLET GT SCH (12:04)
[2022-07-11] MEDS: MULTIVIT, IRON, MIN NO. 8, FA TABLET GT SCH (21:00)
[2022-07-11] MEDS: ESTROGENS,CONJU VAGINAL CREAM 42.5 GM TUBE VG SCH (21:00)
[2022-07-11] MEDS: SIMVASTATIN 10 MG TABLET GT SCH (21:00)
[2022-07-11] MEDS: ASCORBIC ACID 500 MG TABLET GT SCH (21:00)
[2022-07-12] VITALS (14 sets, daily range): TEMP 98–98.7; O2SAT 96–99
[2022-07-12] MEDS: BACLOFEN 10 MG TABLET GT SCH ×4 (00:49→17:00)
[2022-07-12] MEDS: ALBUTEROL SULFATE 2.5 MG/3 ML NEBU NEB SCH ×6 (03:29→23:26)
[2022-07-12] MEDS: IPRATROPIUM BROMIDE 0.5 MG/2.5 ML NEBU NEB SCH ×6 (03:29→23:26)
[2022-07-12] MEDS: HYDROCODONE/APAP 5-325MG TABLET GT PRN ×4 (04:54→22:00)
[2022-07-12] MEDS: MIDODRINE HCL 5 MG TABLET GT SCH ×3 (06:00→22:00)
[2022-07-12] MEDS: ARGININE/GLUTAMINE/CALCIUM BMB 1 EACH POWD.PACK GT SCH ×2 (06:56→17:00)
[2022-07-12] MEDS: OMEGA-3 FATTY ACIDS/FISH OIL CAPSULE GT SCH ×2 (06:56→17:00)
[2022-07-12] MEDS: PROTEIN SUPPLEMENT (PROSTAT) 30 ML LIQUID GT SCH ×3 (06:57→22:00)
[2022-07-12] MEDS: OMEPRAZOLE 20 MG CAPSULE.DR GT SCH (06:57)
[2022-07-12] MEDS: HYDROGEN PEROXIDE 3% 118 ML BOTTLE TP SCH ×2 (07:39→21:00)
[2022-07-12] MEDS: ACETAMINOPHEN 650 MG/20.3 ML LIQUID UDC GT SCH ×2 (08:30→20:30)
[2022-07-12] MEDS: REMEDY ESSENTIAL ZINC PASTE 113 GM TP SCH ×3 (09:00→21:01)
[2022-07-12] MEDS: APIXABAN 5 MG TABLET GT SCH ×2 (09:00→21:00)
[2022-07-12] MEDS: ACIDOPHILUS/BULGARICUS CHEW TAB GT SCH ×2 (09:00→20:58)
[2022-07-12] MEDS: SODIUM HYPOCHLORITE 0.125% (QUARTER STRENGTH) 473 ML BOTTLE TP SCH ×3 (09:00→21:00)
[2022-07-12] MEDS: SERTRALINE 25MG TABLET GT SCH (12:14)
[2022-07-12] MEDS: MULTIVIT, IRON, MIN NO. 8, FA TABLET GT SCH (20:59)
[2022-07-12] MEDS: SIMVASTATIN 10 MG TABLET GT SCH (21:00)
[2022-07-12] MEDS: ASCORBIC ACID 500 MG TABLET GT SCH (21:00)
[2022-07-12] MEDS: ESTROGENS,CONJU VAGINAL CREAM 42.5 GM TUBE VG SCH (21:01)
[2022-07-12] MEDS: TEMAZEPAM 7.5 MG CAPSULE GT PRN (22:00)
[2022-07-13] VITALS (12 sets, daily range): TEMP 97.6–98.2; O2SAT 96–99
[2022-07-13] MEDS: BACLOFEN 10 MG TABLET GT SCH ×5 (00:18→23:31)
[2022-07-13] MEDS: ALBUTEROL SULFATE 2.5 MG/3 ML NEBU NEB SCH ×6 (03:13→23:30)
[2022-07-13] MEDS: IPRATROPIUM BROMIDE 0.5 MG/2.5 ML NEBU NEB SCH ×6 (03:13→23:30)
[2022-07-13] MEDS: HYDROCODONE/APAP 5-325MG TABLET GT PRN ×3 (04:30→22:00)
[2022-07-13] MEDS: PROTEIN SUPPLEMENT (PROSTAT) 30 ML LIQUID GT SCH ×3 (06:00→22:00)
[2022-07-13] MEDS: ARGININE/GLUTAMINE/CALCIUM BMB 1 EACH POWD.PACK GT SCH ×2 (06:02→17:41)
[2022-07-13] MEDS: OMEGA-3 FATTY ACIDS/FISH OIL CAPSULE GT SCH ×2 (06:02→17:41)
[2022-07-13] MEDS: OMEPRAZOLE 20 MG CAPSULE.DR GT SCH (06:02)
[2022-07-13] MEDS: MIDODRINE HCL 5 MG TABLET GT SCH ×3 (06:03→22:00)
[2022-07-13] MEDS: APIXABAN 5 MG TABLET GT SCH ×2 (08:38→20:51)
[2022-07-13] MEDS: ACIDOPHILUS/BULGARICUS CHEW TAB GT SCH ×2 (08:38→20:51)
[2022-07-13] MEDS: ACETAMINOPHEN 650 MG/20.3 ML LIQUID UDC GT SCH ×2 (08:38→20:30)
[2022-07-13] MEDS: REMEDY ESSENTIAL ZINC PASTE 113 GM TP SCH ×3 (08:39→20:55)
[2022-07-13] MEDS: SODIUM HYPOCHLORITE 0.125% (QUARTER STRENGTH) 473 ML BOTTLE TP SCH ×3 (08:39→20:54)
[2022-07-13] MEDS: HYDROGEN PEROXIDE 3% 118 ML BOTTLE TP SCH ×2 (09:11→21:49)
[2022-07-13] MEDS: GLUCERNA 1.2 1000ML LIQUID GT PRN (11:52)
[2022-07-13] MEDS: SERTRALINE 25MG TABLET GT SCH (11:53)
[2022-07-13] MEDS: SIMVASTATIN 10 MG TABLET GT SCH (20:54)
[2022-07-13] MEDS: ASCORBIC ACID 500 MG TABLET GT SCH (20:54)
[2022-07-13] MEDS: MULTIVIT, IRON, MIN NO. 8, FA TABLET GT SCH (20:54)
[2022-07-13] MEDS: ESTROGENS,CONJU VAGINAL CREAM 42.5 GM TUBE VG SCH (20:55)
[2022-07-13] MEDS: TEMAZEPAM 7.5 MG CAPSULE GT PRN (22:00)
[2022-07-14] VITALS (14 sets, daily range): TEMP 97.6–98.8; O2SAT 97–99
[2022-07-14] MEDS: ALBUTEROL SULFATE 2.5 MG/3 ML NEBU NEB SCH ×6 (03:30→23:02)
[2022-07-14] MEDS: IPRATROPIUM BROMIDE 0.5 MG/2.5 ML NEBU NEB SCH ×6 (03:30→23:02)
[2022-07-14] MEDS: HYDROCODONE/APAP 5-325MG TABLET GT PRN ×3 (04:30→22:00)
[2022-07-14] MEDS: OMEPRAZOLE 20 MG CAPSULE.DR GT SCH (05:22)
[2022-07-14] MEDS: ARGININE/GLUTAMINE/CALCIUM BMB 1 EACH POWD.PACK GT SCH ×2 (05:22→17:46)
[2022-07-14] MEDS: BACLOFEN 10 MG TABLET GT SCH ×3 (05:22→17:46)
[2022-07-14] MEDS: OMEGA-3 FATTY ACIDS/FISH OIL CAPSULE GT SCH ×2 (05:22→17:46)
[2022-07-14] MEDS: MIDODRINE HCL 5 MG TABLET GT SCH ×3 (05:26→21:02)
[2022-07-14] MEDS: PROTEIN SUPPLEMENT (PROSTAT) 30 ML LIQUID GT SCH ×3 (05:27→21:02)
[2022-07-14] MEDS: ACETAMINOPHEN 650 MG/20.3 ML LIQUID UDC GT SCH ×2 (09:13→20:30)
[2022-07-14] MEDS: APIXABAN 5 MG TABLET GT SCH ×2 (09:14→21:57)
[2022-07-14] MEDS: ACIDOPHILUS/BULGARICUS CHEW TAB GT SCH ×2 (09:14→21:00)
[2022-07-14] MEDS: REMEDY ESSENTIAL ZINC PASTE 113 GM TP SCH ×3 (09:14→21:01)
[2022-07-14] MEDS: SODIUM HYPOCHLORITE 0.125% (QUARTER STRENGTH) 473 ML BOTTLE TP SCH ×3 (09:14→21:01)
[2022-07-14] MEDS: HYDROGEN PEROXIDE 3% 118 ML BOTTLE TP SCH ×2 (09:19→20:58)
[2022-07-14] MEDS: SERTRALINE 25MG TABLET GT SCH (12:00)
[2022-07-14] MEDS: MULTIVIT, IRON, MIN NO. 8, FA TABLET GT SCH (21:00)
[2022-07-14] MEDS: ESTROGENS,CONJU VAGINAL CREAM 42.5 GM TUBE VG SCH (21:01)
[2022-07-14] MEDS: SIMVASTATIN 10 MG TABLET GT SCH (21:01)
[2022-07-14] MEDS: ASCORBIC ACID 500 MG TABLET GT SCH (21:01)
[2022-07-14] MEDS: TEMAZEPAM 7.5 MG CAPSULE GT PRN (22:00)
[2022-07-15] VITALS (14 sets, daily range): TEMP 97.6–97.8; O2SAT 98–99
[2022-07-15] MEDS: IPRATROPIUM BROMIDE 0.5 MG/2.5 ML NEBU NEB SCH ×4 (03:00→19:23)
[2022-07-15] MEDS: ALBUTEROL SULFATE 2.5 MG/3 ML NEBU NEB SCH ×4 (03:01→19:23)
[2022-07-15] MEDS: HYDROCODONE/APAP 5-325MG TABLET GT PRN ×3 (05:00→22:21)
[2022-07-15] MEDS: BACLOFEN 10 MG TABLET GT SCH ×5 (05:38→23:05)
[2022-07-15] MEDS: OMEGA-3 FATTY ACIDS/FISH OIL CAPSULE GT SCH ×2 (05:38→17:02)
[2022-07-15] MEDS: ARGININE/GLUTAMINE/CALCIUM BMB 1 EACH POWD.PACK GT SCH ×2 (05:38→17:02)
[2022-07-15] MEDS: OMEPRAZOLE 20 MG CAPSULE.DR GT SCH (05:38)
[2022-07-15] MEDS: MIDODRINE HCL 5 MG TABLET GT SCH ×3 (05:39→22:09)
[2022-07-15] MEDS: PROTEIN SUPPLEMENT (PROSTAT) 30 ML LIQUID GT SCH ×3 (05:40→22:00)
[2022-07-15] MEDS: HYDROGEN PEROXIDE 3% 118 ML BOTTLE TP SCH ×2 (08:09→21:38)
[2022-07-15] MEDS: ACETAMINOPHEN 650 MG/20.3 ML LIQUID UDC GT SCH ×2 (08:30→20:30)
[2022-07-15] MEDS: SODIUM HYPOCHLORITE 0.125% (QUARTER STRENGTH) 473 ML BOTTLE TP SCH ×3 (09:48→21:00)
[2022-07-15] MEDS: ACIDOPHILUS/BULGARICUS CHEW TAB GT SCH ×2 (09:48→21:00)
[2022-07-15] MEDS: REMEDY ESSENTIAL ZINC PASTE 113 GM TP SCH ×3 (09:48→21:00)
[2022-07-15] MEDS: APIXABAN 5 MG TABLET GT SCH ×2 (09:48→21:00)
[2022-07-15] MEDS: SERTRALINE 25MG TABLET GT SCH (12:44)
[2022-07-15] MEDS: SIMVASTATIN 10 MG TABLET GT SCH (21:00)
[2022-07-15] MEDS: ASCORBIC ACID 500 MG TABLET GT SCH (21:00)
[2022-07-15] MEDS: ESTROGENS,CONJU VAGINAL CREAM 42.5 GM TUBE VG SCH (21:00)
[2022-07-15] MEDS: MULTIVIT, IRON, MIN NO. 8, FA TABLET GT SCH (21:00)
[2022-07-15] MEDS: TEMAZEPAM 7.5 MG CAPSULE GT PRN (23:46)
[2022-07-16] VITALS (14 sets, daily range): TEMP 97–98; O2SAT 98–99
[2022-07-16] MEDS: IPRATROPIUM BROMIDE 0.5 MG/2.5 ML NEBU NEB SCH ×7 (00:10→23:03)
[2022-07-16] MEDS: ALBUTEROL SULFATE 2.5 MG/3 ML NEBU NEB SCH ×7 (00:10→23:03)
[2022-07-16] MEDS: BACLOFEN 10 MG TABLET GT SCH ×3 (05:05→17:05)
[2022-07-16] MEDS: OMEPRAZOLE 20 MG CAPSULE.DR GT SCH (05:05)
[2022-07-16] MEDS: MIDODRINE HCL 5 MG TABLET GT SCH ×3 (05:05→21:17)
[2022-07-16] MEDS: ARGININE/GLUTAMINE/CALCIUM BMB 1 EACH POWD.PACK GT SCH ×2 (05:05→17:05)
[2022-07-16] MEDS: PROTEIN SUPPLEMENT (PROSTAT) 30 ML LIQUID GT SCH ×3 (05:06→21:18)
[2022-07-16] MEDS: OMEGA-3 FATTY ACIDS/FISH OIL CAPSULE GT SCH ×2 (05:06→17:05)
[2022-07-16] MEDS: HYDROGEN PEROXIDE 3% 118 ML BOTTLE TP SCH ×2 (07:50→21:04)
[2022-07-16] MEDS: ACETAMINOPHEN 650 MG/20.3 ML LIQUID UDC GT SCH ×2 (08:52→21:17)
[2022-07-16] MEDS: APIXABAN 5 MG TABLET GT SCH ×2 (08:53→21:00)
[2022-07-16] MEDS: ACIDOPHILUS/BULGARICUS CHEW TAB GT SCH ×2 (08:54→21:17)
[2022-07-16] MEDS: REMEDY ESSENTIAL ZINC PASTE 113 GM TP SCH ×3 (08:55→21:17)
[2022-07-16] MEDS: SODIUM HYPOCHLORITE 0.125% (QUARTER STRENGTH) 473 ML BOTTLE TP SCH ×3 (08:55→21:17)
[2022-07-16] MEDS: SERTRALINE 25MG TABLET GT SCH (12:00)
[2022-07-16] MEDS: GLUCERNA 1.2 1000ML LIQUID GT PRN (18:59)
[2022-07-16] MEDS: ASCORBIC ACID 500 MG TABLET GT SCH (21:17)
[2022-07-16] MEDS: ESTROGENS,CONJU VAGINAL CREAM 42.5 GM TUBE VG SCH (21:17)
[2022-07-16] MEDS: MULTIVIT, IRON, MIN NO. 8, FA TABLET GT SCH (21:17)
[2022-07-16] MEDS: SIMVASTATIN 10 MG TABLET GT SCH (21:17)
[2022-07-16] MEDS: HYDROCODONE/APAP 5-325MG TABLET GT PRN (21:22)
[2022-07-17] VITALS (13 sets, daily range): TEMP 97.9; O2SAT 98–99
[2022-07-17] MEDS: BACLOFEN 10 MG TABLET GT SCH ×4 (00:28→17:49)
[2022-07-17] MEDS: IPRATROPIUM BROMIDE 0.5 MG/2.5 ML NEBU NEB SCH ×6 (03:01→23:00)
[2022-07-17] MEDS: ALBUTEROL SULFATE 2.5 MG/3 ML NEBU NEB SCH ×6 (03:01→23:00)
[2022-07-17] MEDS: HYDROCODONE/APAP 5-325MG TABLET GT PRN ×2 (04:00→12:06)
[2022-07-17] MEDS: ARGININE/GLUTAMINE/CALCIUM BMB 1 EACH POWD.PACK GT SCH ×2 (05:21→17:48)
[2022-07-17] MEDS: OMEPRAZOLE 20 MG CAPSULE.DR GT SCH (05:21)
[2022-07-17] MEDS: OMEGA-3 FATTY ACIDS/FISH OIL CAPSULE GT SCH ×2 (05:21→17:48)
[2022-07-17] MEDS: MIDODRINE HCL 5 MG TABLET GT SCH ×3 (05:22→22:00)
[2022-07-17] MEDS: PROTEIN SUPPLEMENT (PROSTAT) 30 ML LIQUID GT SCH ×3 (05:22→22:00)
[2022-07-17] MEDS: HYDROGEN PEROXIDE 3% 118 ML BOTTLE TP SCH ×2 (08:18→21:11)
[2022-07-17] MEDS: ACETAMINOPHEN 650 MG/20.3 ML LIQUID UDC GT SCH ×2 (08:30→20:30)
[2022-07-17] MEDS: APIXABAN 5 MG TABLET GT SCH ×2 (09:43→21:00)
[2022-07-17] MEDS: ACIDOPHILUS/BULGARICUS CHEW TAB GT SCH ×2 (09:44→21:00)
[2022-07-17] MEDS: REMEDY ESSENTIAL ZINC PASTE 113 GM TP SCH ×3 (09:46→21:00)
[2022-07-17] MEDS: SODIUM HYPOCHLORITE 0.125% (QUARTER STRENGTH) 473 ML BOTTLE TP SCH ×3 (09:47→21:00)
[2022-07-17] MEDS: SERTRALINE 25MG TABLET GT SCH (12:06)
[2022-07-17] MEDS: ESTROGENS,CONJU VAGINAL CREAM 42.5 GM TUBE VG SCH (21:00)
[2022-07-17] MEDS: SIMVASTATIN 10 MG TABLET GT SCH (21:00)
[2022-07-17] MEDS: ASCORBIC ACID 500 MG TABLET GT SCH (21:00)
[2022-07-17] MEDS: MULTIVIT, IRON, MIN NO. 8, FA TABLET GT SCH (21:00)
[2022-07-18] VITALS (14 sets, daily range): TEMP 97.9–99.4; O2SAT 96–99
[2022-07-18] MEDS: ALBUTEROL SULFATE 2.5 MG/3 ML NEBU NEB SCH ×6 (03:00→23:16)
[2022-07-18] MEDS: IPRATROPIUM BROMIDE 0.5 MG/2.5 ML NEBU NEB SCH ×6 (03:00→23:16)
[2022-07-18] MEDS: PROTEIN SUPPLEMENT (PROSTAT) 30 ML LIQUID GT SCH ×4 (06:00→21:02)
[2022-07-18 06:51] LABS: BASOPHILS # (AUTO) 0.1 K/UL (0.0-0.2); BASOPHILS % (AUTO) 0.7 % (0.0-2.0); EOSINOPHILS # (AUTO) 0.4 K/uL (0.0-0.7); EOSINOPHILS % (AUTO) 3.3 % (0.0-7.0); HEMATOCRIT 36.3 % (31.2-41.9); HEMOGLOBIN 11.6 g/dL (10.9-14.3); LYMPHOCYTES # (AUTO) 2.6 K/uL (0.8-4.8); LYMPHOCYTES % (AUTO) 22.5 % (20.5-51.5); MEAN CORPUSCULAR HEMOGLOBIN 28.5 uug (24.7-32.8); MEAN CORPUSCULAR HGB CONC 32 g/dL (32.3-35.6); MEAN CORPUSCULAR VOLUME 89.6 fL (75.5-95.3); MONOCYTES # (AUTO) 1.1 K/uL (0.1-1.30); MONOCYTES % (AUTO) 9.8 % (0.0-11.0); NEUTROPHILS # (AUTO) 7.2 K/uL (1.8-8.9); NEUTROPHILS % (AUTO) 63.7 % (38.5-71.5); PLATELET COUNT (AUTO) 244 K/uL (179-408); RED BLOOD CELL COUNT(AUTO) 4.06 MIL/uL (3.63-4.92); RED CELL DISTRIBUTION WIDTH 18.5 % (12.3-17.7); WHITE BLOOD COUNT (AUTO) 11.4 K/uL (3.8-11.8)
[2022-07-18] MEDS: BACLOFEN 10 MG TABLET GT SCH ×5 (06:52→23:16)
[2022-07-18] MEDS: ARGININE/GLUTAMINE/CALCIUM BMB 1 EACH POWD.PACK GT SCH ×2 (06:52→17:32)
[2022-07-18] MEDS: OMEPRAZOLE 20 MG CAPSULE.DR GT SCH (06:52)
[2022-07-18] MEDS: OMEGA-3 FATTY ACIDS/FISH OIL CAPSULE GT SCH ×2 (06:52→17:32)
[2022-07-18 07:06] LABS: CALCIUM 9.9 mg/dL (8.5-10.1); CREATININE 0.6 mg/dL (0.6-1.3); POTASSIUM 3.9 mmol/L (3.5-5.1)
[2022-07-18 08:10] LABS: DIFFERENTIAL COMMENT 1
[2022-07-18] MEDS: ACETAMINOPHEN 650 MG/20.3 ML LIQUID UDC GT SCH ×2 (08:38→21:01)
[2022-07-18] MEDS: SODIUM HYPOCHLORITE 0.125% (QUARTER STRENGTH) 473 ML BOTTLE TP SCH ×3 (08:39→21:02)
[2022-07-18] MEDS: ACIDOPHILUS/BULGARICUS CHEW TAB GT SCH ×2 (08:39→21:01)
[2022-07-18] MEDS: APIXABAN 5 MG TABLET GT SCH ×2 (08:39→21:00)
[2022-07-18] MEDS: REMEDY ESSENTIAL ZINC PASTE 113 GM TP SCH ×3 (08:40→21:02)
[2022-07-18] MEDS: HYDROGEN PEROXIDE 3% 118 ML BOTTLE TP SCH ×2 (09:42→19:08)
[2022-07-18] MEDS: SERTRALINE 25MG TABLET GT SCH (11:30)
[2022-07-18] MEDS: HYDROCODONE/APAP 5-325MG TABLET GT PRN (12:54)
[2022-07-18] MEDS: MIDODRINE HCL 5 MG TABLET GT SCH ×2 (14:00→21:01)
[2022-07-18] MEDS: TEMAZEPAM 7.5 MG CAPSULE GT PRN (21:00)
[2022-07-18] MEDS: SIMVASTATIN 10 MG TABLET GT SCH (21:01)
[2022-07-18] MEDS: ASCORBIC ACID 500 MG TABLET GT SCH (21:01)
[2022-07-18] MEDS: MULTIVIT, IRON, MIN NO. 8, FA TABLET GT SCH (21:01)
[2022-07-18] MEDS: ESTROGENS,CONJU VAGINAL CREAM 42.5 GM TUBE VG SCH (21:02)
[2022-07-19] VITALS (14 sets, daily range): TEMP 97.8; O2SAT 96–99
[2022-07-19] MEDS: ALBUTEROL SULFATE 2.5 MG/3 ML NEBU NEB SCH ×6 (03:30→23:32)
[2022-07-19] MEDS: IPRATROPIUM BROMIDE 0.5 MG/2.5 ML NEBU NEB SCH ×6 (03:30→23:32)
[2022-07-19] MEDS: MIDODRINE HCL 5 MG TABLET GT SCH ×3 (05:02→21:24)
[2022-07-19] MEDS: ARGININE/GLUTAMINE/CALCIUM BMB 1 EACH POWD.PACK GT SCH ×2 (05:02→17:24)
[2022-07-19] MEDS: BACLOFEN 10 MG TABLET GT SCH ×3 (05:02→17:24)
[2022-07-19] MEDS: OMEGA-3 FATTY ACIDS/FISH OIL CAPSULE GT SCH ×2 (05:02→17:24)
[2022-07-19] MEDS: OMEPRAZOLE 20 MG CAPSULE.DR GT SCH (05:02)
[2022-07-19] MEDS: PROTEIN SUPPLEMENT (PROSTAT) 30 ML LIQUID GT SCH ×3 (05:03→21:25)
[2022-07-19] MEDS: ACETAMINOPHEN 650 MG/20.3 ML LIQUID UDC GT SCH ×2 (08:30→21:24)
[2022-07-19] MEDS: HYDROGEN PEROXIDE 3% 118 ML BOTTLE TP SCH ×2 (08:48→21:05)
[2022-07-19] MEDS: ACIDOPHILUS/BULGARICUS CHEW TAB GT SCH ×2 (09:32→21:24)
[2022-07-19] MEDS: REMEDY ESSENTIAL ZINC PASTE 113 GM TP SCH ×3 (09:32→21:24)
[2022-07-19] MEDS: SODIUM HYPOCHLORITE 0.125% (QUARTER STRENGTH) 473 ML BOTTLE TP SCH ×3 (09:32→21:24)
[2022-07-19] MEDS: APIXABAN 5 MG TABLET GT SCH ×2 (09:32→21:24)
[2022-07-19] MEDS: SERTRALINE 25MG TABLET GT SCH (11:51)
[2022-07-19] MEDS: HYDROCODONE/APAP 5-325MG TABLET GT PRN (17:53)
[2022-07-19] MEDS: TEMAZEPAM 7.5 MG CAPSULE GT PRN (21:00)
[2022-07-19] MEDS: SIMVASTATIN 10 MG TABLET GT SCH (21:24)
[2022-07-19] MEDS: MULTIVIT, IRON, MIN NO. 8, FA TABLET GT SCH (21:24)
[2022-07-19] MEDS: ASCORBIC ACID 500 MG TABLET GT SCH (21:24)
[2022-07-19] MEDS: ESTROGENS,CONJU VAGINAL CREAM 42.5 GM TUBE VG SCH (21:24)
[2022-07-20] VITALS (14 sets, daily range): TEMP 98.2–98.4; O2SAT 97–99
[2022-07-20] MEDS: ALBUTEROL SULFATE 2.5 MG/3 ML NEBU NEB SCH ×6 (03:12→23:38)
[2022-07-20] MEDS: IPRATROPIUM BROMIDE 0.5 MG/2.5 ML NEBU NEB SCH ×6 (03:12→23:38)
[2022-07-20] MEDS: PROTEIN SUPPLEMENT (PROSTAT) 30 ML LIQUID GT SCH ×3 (05:32→21:19)
[2022-07-20] MEDS: OMEPRAZOLE 20 MG CAPSULE.DR GT SCH (05:32)
[2022-07-20] MEDS: OMEGA-3 FATTY ACIDS/FISH OIL CAPSULE GT SCH ×2 (05:32→17:31)
[2022-07-20] MEDS: BACLOFEN 10 MG TABLET GT SCH ×4 (05:32→17:31)
[2022-07-20] MEDS: ARGININE/GLUTAMINE/CALCIUM BMB 1 EACH POWD.PACK GT SCH ×2 (05:32→17:31)
[2022-07-20] MEDS: MIDODRINE HCL 5 MG TABLET GT SCH ×3 (05:33→21:18)
[2022-07-20] MEDS: HYDROGEN PEROXIDE 3% 118 ML BOTTLE TP SCH ×2 (08:19→21:22)
[2022-07-20] MEDS: ACETAMINOPHEN 650 MG/20.3 ML LIQUID UDC GT SCH ×2 (08:48→21:18)
[2022-07-20] MEDS: APIXABAN 5 MG TABLET GT SCH ×2 (08:50→21:20)
[2022-07-20] MEDS: ACIDOPHILUS/BULGARICUS CHEW TAB GT SCH ×2 (08:51→21:18)
[2022-07-20] MEDS: REMEDY ESSENTIAL ZINC PASTE 113 GM TP SCH ×3 (08:52→21:18)
[2022-07-20] MEDS: SODIUM HYPOCHLORITE 0.125% (QUARTER STRENGTH) 473 ML BOTTLE TP SCH ×3 (08:52→21:18)
[2022-07-20] MEDS: SERTRALINE 25MG TABLET GT SCH (11:32)
[2022-07-20] MEDS: HYDROCODONE/APAP 5-325MG TABLET GT PRN (17:40)
[2022-07-20] MEDS ORDERED: REMEDY ESSENTIAL ZINC PASTE 113 GM TP PRN (18:45)
[2022-07-20] MEDS ORDERED: SODIUM HYPOCHLORITE 0.125% (QUARTER STRENGTH) 473 ML BOTTLE TP PRN (18:45)
[2022-07-20] MEDS: ASCORBIC ACID 500 MG TABLET GT SCH (21:18)
[2022-07-20] MEDS: SIMVASTATIN 10 MG TABLET GT SCH (21:18)
[2022-07-20] MEDS: MULTIVIT, IRON, MIN NO. 8, FA TABLET GT SCH (21:18)
[2022-07-20] MEDS: ESTROGENS,CONJU VAGINAL CREAM 42.5 GM TUBE VG SCH (21:18)
[2022-07-20] MEDS: TEMAZEPAM 7.5 MG CAPSULE GT PRN (21:30)
[2022-07-21] VITALS (14 sets, daily range): TEMP 98.1–98.2; O2SAT 97–99
[2022-07-21] MEDS: IPRATROPIUM BROMIDE 0.5 MG/2.5 ML NEBU NEB SCH ×6 (03:23→23:28)
[2022-07-21] MEDS: ALBUTEROL SULFATE 2.5 MG/3 ML NEBU NEB SCH ×6 (03:23→23:28)
[2022-07-21] MEDS: GLUCERNA 1.2 1000ML LIQUID GT PRN (04:04)
[2022-07-21] MEDS: HYDROCODONE/APAP 5-325MG TABLET GT PRN ×3 (04:15→15:10)
[2022-07-21] MEDS: BACLOFEN 10 MG TABLET GT SCH ×4 (06:00→18:13)
[2022-07-21] MEDS: OMEGA-3 FATTY ACIDS/FISH OIL CAPSULE GT SCH ×2 (06:00→18:12)
[2022-07-21] MEDS: ARGININE/GLUTAMINE/CALCIUM BMB 1 EACH POWD.PACK GT SCH ×2 (06:00→18:12)
[2022-07-21] MEDS: PROTEIN SUPPLEMENT (PROSTAT) 30 ML LIQUID GT SCH ×3 (06:00→21:41)
[2022-07-21] MEDS: MIDODRINE HCL 5 MG TABLET GT SCH ×3 (06:00→21:41)
[2022-07-21] MEDS: OMEPRAZOLE 20 MG CAPSULE.DR GT SCH (06:00)
[2022-07-21] MEDS: HYDROGEN PEROXIDE 3% 118 ML BOTTLE TP SCH ×2 (07:23→19:12)
[2022-07-21] MEDS: ACIDOPHILUS/BULGARICUS CHEW TAB GT SCH ×2 (08:34→21:39)
[2022-07-21] MEDS: ACETAMINOPHEN 650 MG/20.3 ML LIQUID UDC GT SCH ×2 (08:34→20:30)
[2022-07-21] MEDS: REMEDY ESSENTIAL ZINC PASTE 113 GM TP SCH ×3 (08:35→21:41)
[2022-07-21] MEDS: SODIUM HYPOCHLORITE 0.125% (QUARTER STRENGTH) 473 ML BOTTLE TP SCH ×3 (08:35→21:41)
[2022-07-21] MEDS: APIXABAN 5 MG TABLET GT SCH ×2 (09:51→21:39)
[2022-07-21] MEDS: SERTRALINE 25MG TABLET GT SCH (12:33)
[2022-07-21] MEDS: TEMAZEPAM 7.5 MG CAPSULE GT PRN (21:30)
[2022-07-21] MEDS: SIMVASTATIN 10 MG TABLET GT SCH (21:40)
[2022-07-21] MEDS: MULTIVIT, IRON, MIN NO. 8, FA TABLET GT SCH (21:40)
[2022-07-21] MEDS: ASCORBIC ACID 500 MG TABLET GT SCH (21:40)
[2022-07-21] MEDS: ESTROGENS,CONJU VAGINAL CREAM 42.5 GM TUBE VG SCH (21:41)
[2022-07-22] VITALS (14 sets, daily range): TEMP 97.7–98.7; O2SAT 97–99
[2022-07-22] MEDS: BACLOFEN 10 MG TABLET GT SCH ×4 (00:44→17:23)
[2022-07-22] MEDS: IPRATROPIUM BROMIDE 0.5 MG/2.5 ML NEBU NEB SCH ×6 (03:31→23:07)
[2022-07-22] MEDS: ALBUTEROL SULFATE 2.5 MG/3 ML NEBU NEB SCH ×6 (03:31→23:07)
[2022-07-22] MEDS: OMEPRAZOLE 20 MG CAPSULE.DR GT SCH (05:19)
[2022-07-22] MEDS: ARGININE/GLUTAMINE/CALCIUM BMB 1 EACH POWD.PACK GT SCH ×2 (05:19→17:23)
[2022-07-22] MEDS: PROTEIN SUPPLEMENT (PROSTAT) 30 ML LIQUID GT SCH ×3 (05:19→21:15)
[2022-07-22] MEDS: OMEGA-3 FATTY ACIDS/FISH OIL CAPSULE GT SCH ×2 (05:19→17:23)
[2022-07-22] MEDS: MIDODRINE HCL 5 MG TABLET GT SCH ×3 (05:19→21:32)
[2022-07-22] MEDS: HYDROGEN PEROXIDE 3% 118 ML BOTTLE TP SCH ×2 (07:23→19:22)
[2022-07-22] MEDS: ACETAMINOPHEN 650 MG/20.3 ML LIQUID UDC GT SCH ×2 (07:59→20:48)
[2022-07-22] MEDS: ACIDOPHILUS/BULGARICUS CHEW TAB GT SCH ×2 (09:43→20:49)
[2022-07-22] MEDS: REMEDY ESSENTIAL ZINC PASTE 113 GM TP SCH ×3 (09:44→20:51)
[2022-07-22] MEDS: SODIUM HYPOCHLORITE 0.125% (QUARTER STRENGTH) 473 ML BOTTLE TP SCH ×3 (09:44→20:51)
[2022-07-22] MEDS: HYDROCODONE/APAP 5-325MG TABLET GT PRN (09:50)
[2022-07-22] MEDS: APIXABAN 5 MG TABLET GT SCH ×2 (09:55→21:00)
[2022-07-22] MEDS: SERTRALINE 25MG TABLET GT SCH (12:18)
[2022-07-22] MEDS: GLUCERNA 1.2 1000ML LIQUID GT PRN (17:11)
[2022-07-22] MEDS: MULTIVIT, IRON, MIN NO. 8, FA TABLET GT SCH (20:50)
[2022-07-22] MEDS: SIMVASTATIN 10 MG TABLET GT SCH (20:50)
[2022-07-22] MEDS: ASCORBIC ACID 500 MG TABLET GT SCH (20:50)
[2022-07-22] MEDS: ESTROGENS,CONJU VAGINAL CREAM 42.5 GM TUBE VG SCH (20:51)
[2022-07-22] MEDS: TEMAZEPAM 7.5 MG CAPSULE GT PRN (22:00)
[2022-07-23] VITALS (12 sets, daily range): TEMP 98.4–98.6; O2SAT 97–99
[2022-07-23] MEDS: BACLOFEN 10 MG TABLET GT SCH ×4 (00:44→17:06)
[2022-07-23] MEDS: ALBUTEROL SULFATE 2.5 MG/3 ML NEBU NEB SCH ×5 (03:46→19:30)
[2022-07-23] MEDS: IPRATROPIUM BROMIDE 0.5 MG/2.5 ML NEBU NEB SCH ×5 (03:46→19:30)
[2022-07-23] MEDS: HYDROCODONE/APAP 5-325MG TABLET GT PRN ×2 (05:35→17:10)
[2022-07-23] MEDS: ARGININE/GLUTAMINE/CALCIUM BMB 1 EACH POWD.PACK GT SCH ×2 (05:39→17:06)
[2022-07-23] MEDS: OMEGA-3 FATTY ACIDS/FISH OIL CAPSULE GT SCH ×2 (05:39→17:06)
[2022-07-23] MEDS: OMEPRAZOLE 20 MG CAPSULE.DR GT SCH (05:39)
[2022-07-23] MEDS: PROTEIN SUPPLEMENT (PROSTAT) 30 ML LIQUID GT SCH ×3 (05:40→21:00)
[2022-07-23] MEDS: MIDODRINE HCL 5 MG TABLET GT SCH ×3 (06:04→21:00)
[2022-07-23] MEDS: ACETAMINOPHEN 650 MG/20.3 ML LIQUID UDC GT SCH ×2 (08:17→20:48)
[2022-07-23] MEDS: SODIUM HYPOCHLORITE 0.125% (QUARTER STRENGTH) 473 ML BOTTLE TP SCH ×3 (08:18→20:50)
[2022-07-23] MEDS: ACIDOPHILUS/BULGARICUS CHEW TAB GT SCH ×2 (08:18→20:48)
[2022-07-23] MEDS: REMEDY ESSENTIAL ZINC PASTE 113 GM TP SCH ×3 (08:19→20:50)
[2022-07-23] MEDS: HYDROGEN PEROXIDE 3% 118 ML BOTTLE TP SCH ×2 (08:20→20:59)
[2022-07-23] MEDS: APIXABAN 5 MG TABLET GT SCH ×2 (09:28→21:00)
[2022-07-23] MEDS: SERTRALINE 25MG TABLET GT SCH (11:30)
[2022-07-23] MEDS: MULTIVIT, IRON, MIN NO. 8, FA TABLET GT SCH (20:49)
[2022-07-23] MEDS: ASCORBIC ACID 500 MG TABLET GT SCH (20:49)
[2022-07-23] MEDS: SIMVASTATIN 10 MG TABLET GT SCH (20:49)
[2022-07-23] MEDS: ESTROGENS,CONJU VAGINAL CREAM 42.5 GM TUBE VG SCH (20:50)
[2022-07-23] MEDS: TEMAZEPAM 7.5 MG CAPSULE GT PRN (20:59)
[2022-07-24] VITALS (16 sets, daily range): TEMP 97.9; O2SAT 97–99
[2022-07-24] MEDS: IPRATROPIUM BROMIDE 0.5 MG/2.5 ML NEBU NEB SCH ×6 (00:22→19:40)
[2022-07-24] MEDS: ALBUTEROL SULFATE 2.5 MG/3 ML NEBU NEB SCH ×6 (00:22→19:40)
[2022-07-24] MEDS: BACLOFEN 10 MG TABLET GT SCH ×5 (00:49→23:34)
[2022-07-24] MEDS: HYDROCODONE/APAP 5-325MG TABLET GT PRN ×3 (04:03→16:00)
[2022-07-24] MEDS: OMEPRAZOLE 20 MG CAPSULE.DR GT SCH (06:12)
[2022-07-24] MEDS: OMEGA-3 FATTY ACIDS/FISH OIL CAPSULE GT SCH ×2 (06:12→17:08)
[2022-07-24] MEDS: ARGININE/GLUTAMINE/CALCIUM BMB 1 EACH POWD.PACK GT SCH ×2 (06:12→17:08)
[2022-07-24] MEDS: PROTEIN SUPPLEMENT (PROSTAT) 30 ML LIQUID GT SCH ×3 (06:13→22:00)
[2022-07-24] MEDS: MIDODRINE HCL 5 MG TABLET GT SCH ×3 (06:13→22:00)
[2022-07-24] MEDS: APIXABAN 5 MG TABLET GT SCH ×2 (08:25→21:00)
[2022-07-24] MEDS: ACETAMINOPHEN 650 MG/20.3 ML LIQUID UDC GT SCH ×2 (08:25→20:30)
[2022-07-24] MEDS: ACIDOPHILUS/BULGARICUS CHEW TAB GT SCH ×2 (08:26→21:00)
[2022-07-24] MEDS: SODIUM HYPOCHLORITE 0.125% (QUARTER STRENGTH) 473 ML BOTTLE TP SCH ×3 (08:26→21:00)
[2022-07-24] MEDS: REMEDY ESSENTIAL ZINC PASTE 113 GM TP SCH ×3 (08:27→21:00)
[2022-07-24] MEDS: HYDROGEN PEROXIDE 3% 118 ML BOTTLE TP SCH ×2 (08:37→21:00)
[2022-07-24] MEDS: SERTRALINE 25MG TABLET GT SCH (11:43)
[2022-07-24] MEDS: ASCORBIC ACID 500 MG TABLET GT SCH (21:00)
[2022-07-24] MEDS: MULTIVIT, IRON, MIN NO. 8, FA TABLET GT SCH (21:00)
[2022-07-24] MEDS: SIMVASTATIN 10 MG TABLET GT SCH (21:00)
[2022-07-24] MEDS: ESTROGENS,CONJU VAGINAL CREAM 42.5 GM TUBE VG SCH (21:00)
[2022-07-25] VITALS (13 sets, daily range): TEMP 98–99.6; O2SAT 96–99
[2022-07-25] MEDS: IPRATROPIUM BROMIDE 0.5 MG/2.5 ML NEBU NEB SCH ×7 (00:02→23:41)
[2022-07-25] MEDS: ALBUTEROL SULFATE 2.5 MG/3 ML NEBU NEB SCH ×7 (00:03→23:41)
[2022-07-25] MEDS: MIDODRINE HCL 5 MG TABLET GT SCH ×3 (06:00→21:10)
[2022-07-25] MEDS: PROTEIN SUPPLEMENT (PROSTAT) 30 ML LIQUID GT SCH ×3 (06:00→21:12)
[2022-07-25] MEDS: ARGININE/GLUTAMINE/CALCIUM BMB 1 EACH POWD.PACK GT SCH ×2 (06:13→17:13)
[2022-07-25] MEDS: OMEGA-3 FATTY ACIDS/FISH OIL CAPSULE GT SCH ×2 (06:13→17:13)
[2022-07-25] MEDS: BACLOFEN 10 MG TABLET GT SCH ×3 (06:15→17:13)
[2022-07-25] MEDS: OMEPRAZOLE 20 MG CAPSULE.DR GT SCH (06:15)
[2022-07-25] MEDS: ACETAMINOPHEN 650 MG/20.3 ML LIQUID UDC GT SCH ×2 (06:33→21:13)
[2022-07-25] MEDS: APIXABAN 5 MG TABLET GT SCH ×2 (08:35→21:00)
[2022-07-25] MEDS: ACIDOPHILUS/BULGARICUS CHEW TAB GT SCH ×2 (08:35→21:05)
[2022-07-25] MEDS: REMEDY ESSENTIAL ZINC PASTE 113 GM TP SCH ×3 (08:36→21:09)
[2022-07-25] MEDS: SODIUM HYPOCHLORITE 0.125% (QUARTER STRENGTH) 473 ML BOTTLE TP SCH ×3 (08:36→21:09)
[2022-07-25] MEDS: HYDROGEN PEROXIDE 3% 118 ML BOTTLE TP SCH ×2 (09:00→19:20)
[2022-07-25] MEDS: SERTRALINE 25MG TABLET GT SCH (12:31)
[2022-07-25] MEDS: HYDROCODONE/APAP 5-325MG TABLET GT PRN ×2 (16:15→21:29)
[2022-07-25] MEDS: ASCORBIC ACID 500 MG TABLET GT SCH (21:05)
[2022-07-25] MEDS: MULTIVIT, IRON, MIN NO. 8, FA TABLET GT SCH (21:05)
[2022-07-25] MEDS: ESTROGENS,CONJU VAGINAL CREAM 42.5 GM TUBE VG SCH (21:09)
[2022-07-25] MEDS: TEMAZEPAM 7.5 MG CAPSULE GT PRN (21:28)
[2022-07-25] MEDS: SIMVASTATIN 10 MG TABLET GT SCH (21:30)
[2022-07-26] VITALS (14 sets, daily range): TEMP 98.4–98.5; O2SAT 96–99
[2022-07-26] MEDS: ALBUTEROL SULFATE 2.5 MG/3 ML NEBU NEB SCH ×6 (03:05→23:01)
[2022-07-26] MEDS: IPRATROPIUM BROMIDE 0.5 MG/2.5 ML NEBU NEB SCH ×6 (03:05→23:01)
[2022-07-26] MEDS: PROTEIN SUPPLEMENT (PROSTAT) 30 ML LIQUID GT SCH ×3 (06:00→21:00)
[2022-07-26] MEDS: OMEPRAZOLE 20 MG CAPSULE.DR GT SCH (06:17)
[2022-07-26] MEDS: ARGININE/GLUTAMINE/CALCIUM BMB 1 EACH POWD.PACK GT SCH ×2 (06:17→17:49)
[2022-07-26] MEDS: OMEGA-3 FATTY ACIDS/FISH OIL CAPSULE GT SCH ×2 (06:17→17:49)
[2022-07-26] MEDS: BACLOFEN 10 MG TABLET GT SCH ×5 (06:22→23:36)
[2022-07-26] MEDS: MIDODRINE HCL 5 MG TABLET GT SCH ×3 (06:28→21:00)
[2022-07-26] MEDS: HYDROGEN PEROXIDE 3% 118 ML BOTTLE TP SCH ×2 (07:46→19:10)
[2022-07-26] MEDS: ACETAMINOPHEN 650 MG/20.3 ML LIQUID UDC GT SCH ×2 (08:46→20:56)
[2022-07-26] MEDS: ACIDOPHILUS/BULGARICUS CHEW TAB GT SCH ×2 (08:47→20:57)
[2022-07-26] MEDS: APIXABAN 5 MG TABLET GT SCH ×2 (08:47→21:55)
[2022-07-26] MEDS: REMEDY ESSENTIAL ZINC PASTE 113 GM TP SCH ×3 (08:48→20:58)
[2022-07-26] MEDS: SODIUM HYPOCHLORITE 0.125% (QUARTER STRENGTH) 473 ML BOTTLE TP SCH ×3 (08:48→20:58)
[2022-07-26] MEDS: SERTRALINE 25MG TABLET GT SCH (12:12)
[2022-07-26] MEDS: HYDROCODONE/APAP 5-325MG TABLET GT PRN (15:59)
[2022-07-26] MEDS: ASCORBIC ACID 500 MG TABLET GT SCH (20:57)
[2022-07-26] MEDS: MULTIVIT, IRON, MIN NO. 8, FA TABLET GT SCH (20:57)
[2022-07-26] MEDS: ESTROGENS,CONJU VAGINAL CREAM 42.5 GM TUBE VG SCH (20:58)
[2022-07-26] MEDS: SIMVASTATIN 10 MG TABLET GT SCH (20:58)
[2022-07-26] MEDS: TEMAZEPAM 7.5 MG CAPSULE GT PRN (21:02)
[2022-07-27] VITALS (15 sets, daily range): TEMP 98.3–98.4; O2SAT 96–99
[2022-07-27] MEDS: ALBUTEROL SULFATE 2.5 MG/3 ML NEBU NEB SCH ×6 (03:02→23:02)
[2022-07-27] MEDS: IPRATROPIUM BROMIDE 0.5 MG/2.5 ML NEBU NEB SCH ×6 (03:02→23:02)
[2022-07-27] MEDS: BACLOFEN 10 MG TABLET GT SCH ×3 (05:20→17:09)
[2022-07-27] MEDS: ARGININE/GLUTAMINE/CALCIUM BMB 1 EACH POWD.PACK GT SCH ×2 (05:20→17:09)
[2022-07-27] MEDS: PROTEIN SUPPLEMENT (PROSTAT) 30 ML LIQUID GT SCH ×3 (05:20→22:49)
[2022-07-27] MEDS: OMEGA-3 FATTY ACIDS/FISH OIL CAPSULE GT SCH ×2 (05:20→17:09)
[2022-07-27] MEDS: OMEPRAZOLE 20 MG CAPSULE.DR GT SCH (05:20)
[2022-07-27] MEDS: MIDODRINE HCL 5 MG TABLET GT SCH ×3 (05:24→22:49)
[2022-07-27] MEDS: HYDROGEN PEROXIDE 3% 118 ML BOTTLE TP SCH ×2 (08:14→21:00)
[2022-07-27] MEDS: ACETAMINOPHEN 650 MG/20.3 ML LIQUID UDC GT SCH ×2 (08:37→20:30)
[2022-07-27] MEDS: APIXABAN 5 MG TABLET GT SCH ×2 (08:38→21:00)
[2022-07-27] MEDS: ACIDOPHILUS/BULGARICUS CHEW TAB GT SCH ×2 (08:38→21:00)
[2022-07-27] MEDS: SODIUM HYPOCHLORITE 0.125% (QUARTER STRENGTH) 473 ML BOTTLE TP SCH ×3 (08:39→21:00)
[2022-07-27] MEDS: REMEDY ESSENTIAL ZINC PASTE 113 GM TP SCH ×3 (08:39→21:00)
[2022-07-27] MEDS: SERTRALINE 25MG TABLET GT SCH (12:04)
[2022-07-27] MEDS: HYDROCODONE/APAP 10-325 MG TABLET GT PRN (12:05)
[2022-07-27] MEDS: ASCORBIC ACID 500 MG TABLET GT SCH (21:00)
[2022-07-27] MEDS: ESTROGENS,CONJU VAGINAL CREAM 42.5 GM TUBE VG SCH (21:00)
[2022-07-27] MEDS: SIMVASTATIN 10 MG TABLET GT SCH (21:00)
[2022-07-27] MEDS: MULTIVIT, IRON, MIN NO. 8, FA TABLET GT SCH (21:00)
[2022-07-28] VITALS (14 sets, daily range): TEMP 97.6–99.2; O2SAT 96–99
[2022-07-28] MEDS: IPRATROPIUM BROMIDE 0.5 MG/2.5 ML NEBU NEB SCH ×6 (03:32→23:55)
[2022-07-28] MEDS: ALBUTEROL SULFATE 2.5 MG/3 ML NEBU NEB SCH ×6 (03:32→23:55)
[2022-07-28] MEDS: PROTEIN SUPPLEMENT (PROSTAT) 30 ML LIQUID GT SCH ×3 (06:00→21:50)
[2022-07-28] MEDS: OMEPRAZOLE 20 MG CAPSULE.DR GT SCH (06:00)
[2022-07-28] MEDS: ARGININE/GLUTAMINE/CALCIUM BMB 1 EACH POWD.PACK GT SCH ×2 (06:00→17:50)
[2022-07-28] MEDS: MIDODRINE HCL 5 MG TABLET GT SCH ×3 (06:00→21:50)
[2022-07-28] MEDS: BACLOFEN 10 MG TABLET GT SCH ×4 (06:00→17:50)
[2022-07-28] MEDS: OMEGA-3 FATTY ACIDS/FISH OIL CAPSULE GT SCH ×2 (06:00→17:50)
[2022-07-28] MEDS: ACETAMINOPHEN 650 MG/20.3 ML LIQUID UDC GT SCH ×2 (08:30→20:30)
[2022-07-28] MEDS: HYDROGEN PEROXIDE 3% 118 ML BOTTLE TP SCH ×2 (08:47→19:23)
[2022-07-28] MEDS: SODIUM HYPOCHLORITE 0.125% (QUARTER STRENGTH) 473 ML BOTTLE TP SCH ×2 (09:00→21:50)
[2022-07-28] MEDS: ACIDOPHILUS/BULGARICUS CHEW TAB GT SCH ×2 (09:00→21:49)
[2022-07-28] MEDS: REMEDY ESSENTIAL ZINC PASTE 113 GM TP SCH ×3 (09:00→21:50)
[2022-07-28] MEDS: APIXABAN 5 MG TABLET GT SCH ×2 (09:00→21:49)
[2022-07-28] MEDS: SERTRALINE 25MG TABLET GT SCH (12:15)
[2022-07-28] MEDS: HYDROCODONE/APAP 10-325 MG TABLET GT PRN (18:59)
[2022-07-28] MEDS: ASCORBIC ACID 500 MG TABLET GT SCH (21:50)
[2022-07-28] MEDS: SIMVASTATIN 10 MG TABLET GT SCH (21:50)
[2022-07-28] MEDS: MULTIVIT, IRON, MIN NO. 8, FA TABLET GT SCH (21:50)
[2022-07-28] MEDS: ESTROGENS,CONJU VAGINAL CREAM 42.5 GM TUBE VG SCH (21:50)
[2022-07-28] MEDS: TEMAZEPAM 7.5 MG CAPSULE GT PRN (22:00)
[2022-07-29] VITALS (16 sets, daily range): TEMP 97.6–98.6; O2SAT 97–99
[2022-07-29] MEDS: BACLOFEN 10 MG TABLET GT SCH ×4 (00:46→17:47)
[2022-07-29] MEDS: IPRATROPIUM BROMIDE 0.5 MG/2.5 ML NEBU NEB SCH ×5 (03:11→22:08)
[2022-07-29] MEDS: ALBUTEROL SULFATE 2.5 MG/3 ML NEBU NEB SCH ×5 (03:12→22:09)
[2022-07-29] MEDS: HYDROCODONE/APAP 10-325 MG TABLET GT PRN (04:30)
[2022-07-29] MEDS: OMEGA-3 FATTY ACIDS/FISH OIL CAPSULE GT SCH ×2 (05:55→17:42)
[2022-07-29] MEDS: OMEPRAZOLE 20 MG CAPSULE.DR GT SCH (05:55)
[2022-07-29] MEDS: MIDODRINE HCL 5 MG TABLET GT SCH ×3 (05:55→22:16)
[2022-07-29] MEDS: PROTEIN SUPPLEMENT (PROSTAT) 30 ML LIQUID GT SCH ×3 (05:55→22:00)
[2022-07-29] MEDS: ARGININE/GLUTAMINE/CALCIUM BMB 1 EACH POWD.PACK GT SCH ×2 (05:55→17:42)
[2022-07-29] MEDS: ACETAMINOPHEN 650 MG/20.3 ML LIQUID UDC GT SCH ×2 (08:30→20:30)
[2022-07-29] MEDS: APIXABAN 5 MG TABLET GT SCH ×2 (09:00→21:00)
[2022-07-29] MEDS: SODIUM HYPOCHLORITE 0.125% (QUARTER STRENGTH) 473 ML BOTTLE TP SCH ×3 (09:00→21:00)
[2022-07-29] MEDS: REMEDY ESSENTIAL ZINC PASTE 113 GM TP SCH ×3 (09:00→21:00)
[2022-07-29] MEDS: ACIDOPHILUS/BULGARICUS CHEW TAB GT SCH ×2 (09:00→21:00)
[2022-07-29] MEDS: HYDROGEN PEROXIDE 3% 118 ML BOTTLE TP SCH ×2 (09:00→22:09)
[2022-07-29] MEDS: SERTRALINE 25MG TABLET GT SCH (12:15)
[2022-07-29] MEDS: ASCORBIC ACID 500 MG TABLET GT SCH (21:00)
[2022-07-29] MEDS: SIMVASTATIN 10 MG TABLET GT SCH (21:00)
[2022-07-29] MEDS: MULTIVIT, IRON, MIN NO. 8, FA TABLET GT SCH (21:00)
[2022-07-29] MEDS: ESTROGENS,CONJU VAGINAL CREAM 42.5 GM TUBE VG SCH (21:00)
[2022-07-29] MEDS: TEMAZEPAM 7.5 MG CAPSULE GT PRN (22:00)
[2022-07-30] VITALS (17 sets, daily range): TEMP 97.5–98.5; O2SAT 97–99
[2022-07-30] MEDS: ALBUTEROL SULFATE 2.5 MG/3 ML NEBU NEB SCH ×6 (00:53→18:26)
[2022-07-30] MEDS: IPRATROPIUM BROMIDE 0.5 MG/2.5 ML NEBU NEB SCH ×6 (00:53→18:26)
[2022-07-30] MEDS: HYDROCODONE/APAP 10-325 MG TABLET GT PRN ×2 (04:31→12:10)
[2022-07-30] MEDS: OMEGA-3 FATTY ACIDS/FISH OIL CAPSULE GT SCH ×2 (05:09→17:10)
[2022-07-30] MEDS: BACLOFEN 10 MG TABLET GT SCH ×5 (05:09→23:06)
[2022-07-30] MEDS: OMEPRAZOLE 20 MG CAPSULE.DR GT SCH (05:09)
[2022-07-30] MEDS: PROTEIN SUPPLEMENT (PROSTAT) 30 ML LIQUID GT SCH ×3 (05:09→22:00)
[2022-07-30] MEDS: ARGININE/GLUTAMINE/CALCIUM BMB 1 EACH POWD.PACK GT SCH ×2 (05:09→17:10)
[2022-07-30] MEDS: MIDODRINE HCL 5 MG TABLET GT SCH ×3 (05:10→22:08)
[2022-07-30] MEDS: HYDROGEN PEROXIDE 3% 118 ML BOTTLE TP SCH ×2 (08:50→18:26)
[2022-07-30] MEDS: ACETAMINOPHEN 650 MG/20.3 ML LIQUID UDC GT SCH ×2 (09:16→20:47)
[2022-07-30] MEDS: ACIDOPHILUS/BULGARICUS CHEW TAB GT SCH ×2 (09:17→20:47)
[2022-07-30] MEDS: APIXABAN 5 MG TABLET GT SCH ×2 (09:19→21:00)
[2022-07-30] MEDS: SODIUM HYPOCHLORITE 0.125% (QUARTER STRENGTH) 473 ML BOTTLE TP SCH ×4 (10:00→20:47)
[2022-07-30] MEDS: REMEDY ESSENTIAL ZINC PASTE 113 GM TP SCH ×3 (10:00→20:47)
[2022-07-30] MEDS: SERTRALINE 25MG TABLET GT SCH (12:03)
[2022-07-30] MEDS: GLUCERNA 1.2 1000ML LIQUID GT PRN (16:58)
[2022-07-30] MEDS: MULTIVIT, IRON, MIN NO. 8, FA TABLET GT SCH (20:47)
[2022-07-30] MEDS: SIMVASTATIN 10 MG TABLET GT SCH (20:47)
[2022-07-30] MEDS: ASCORBIC ACID 500 MG TABLET GT SCH (20:47)
[2022-07-30] MEDS: ESTROGENS,CONJU VAGINAL CREAM 42.5 GM TUBE VG SCH (20:48)
[2022-07-30] MEDS: TEMAZEPAM 7.5 MG CAPSULE GT PRN (22:00)
[2022-07-31] VITALS (17 sets, daily range): TEMP 98.3; O2SAT 98–99
[2022-07-31] MEDS: ALBUTEROL SULFATE 2.5 MG/3 ML NEBU NEB SCH ×6 (00:37→21:43)
[2022-07-31] MEDS: IPRATROPIUM BROMIDE 0.5 MG/2.5 ML NEBU NEB SCH ×6 (00:37→21:43)
[2022-07-31] MEDS: HYDROCODONE/APAP 10-325 MG TABLET GT PRN ×2 (04:30→09:30)
[2022-07-31] MEDS: BACLOFEN 10 MG TABLET GT SCH ×3 (05:34→17:50)
[2022-07-31] MEDS: ARGININE/GLUTAMINE/CALCIUM BMB 1 EACH POWD.PACK GT SCH ×2 (05:34→17:50)
[2022-07-31] MEDS: OMEPRAZOLE 20 MG CAPSULE.DR GT SCH (05:34)
[2022-07-31] MEDS: OMEGA-3 FATTY ACIDS/FISH OIL CAPSULE GT SCH ×2 (05:34→17:05)
[2022-07-31] MEDS: MIDODRINE HCL 5 MG TABLET GT SCH ×3 (05:35→21:40)
[2022-07-31] MEDS: PROTEIN SUPPLEMENT (PROSTAT) 30 ML LIQUID GT SCH ×3 (05:35→21:40)
[2022-07-31] MEDS: ACETAMINOPHEN 650 MG/20.3 ML LIQUID UDC GT SCH ×3 (08:00→20:30)
[2022-07-31] MEDS: HYDROGEN PEROXIDE 3% 118 ML BOTTLE TP SCH ×2 (09:00→21:42)
[2022-07-31] MEDS: ACIDOPHILUS/BULGARICUS CHEW TAB GT SCH ×2 (09:00→21:38)
[2022-07-31] MEDS: APIXABAN 5 MG TABLET GT SCH ×2 (09:02→21:38)
[2022-07-31] MEDS: SODIUM HYPOCHLORITE 0.125% (QUARTER STRENGTH) 473 ML BOTTLE TP SCH ×4 (09:10→21:38)
[2022-07-31] MEDS: REMEDY ESSENTIAL ZINC PASTE 113 GM TP SCH ×3 (09:11→21:38)
[2022-07-31] MEDS: SERTRALINE 25MG TABLET GT SCH (12:24)
[2022-07-31] MEDS: GLUCERNA 1.2 1000ML LIQUID GT PRN (21:00)
[2022-07-31] MEDS: ESTROGENS,CONJU VAGINAL CREAM 42.5 GM TUBE VG SCH (21:38)
[2022-07-31] MEDS: ASCORBIC ACID 500 MG TABLET GT SCH (21:38)
[2022-07-31] MEDS: MULTIVIT, IRON, MIN NO. 8, FA TABLET GT SCH (21:38)
[2022-07-31] MEDS: SIMVASTATIN 10 MG TABLET GT SCH (21:38)
[2022-07-31] MEDS: TEMAZEPAM 7.5 MG CAPSULE GT PRN (22:34)
[2022-07-31 22:40] LABS: *CLARITY,URINE CLOUDY (CLEAR); *COLOR,URINE DARK YELLOW (YELLOW); PH,URINE 8.5 (5.0-8.0); UGLUCOSE NEGATIVE (NEGATIVE)
[2022-07-31 22:41] LABS: *BILIRUBIN,URIN NEGATIVE (NEGATIVE); *BLOOD, URINE LARGE (NEGATIVE); *KETONES,URINE NEGATIVE (NEGATIVE); *UROBILINOGEN,URINE 0.2 E.U./dl (NORMAL)
[2022-07-31 22:42] LABS: *PROTEIN,URINE 3+ (NEGATIVE); LEUKOCYTE ESTERASE ,URINE LARGE (NEGATIVE); NITRITE, URINE NEGATIVE (NEGATIVE)
[2022-07-31 22:52] LABS: RBC,URINE TNTC /HPF (0-3); SQUAMOUS EPITHELIAL CELL,UR FEW /HPF (NONE SEEN); WBC,URINE TNTC /HPF (0-3)
[2022-07-31 22:53] LABS: BACTERIA,URINE MANY /HPF (NONE SEEN)
[2022-08-01] VITALS (15 sets, daily range): TEMP 98.8–99.7; O2SAT 96–99
[2022-08-01] MEDS: ALBUTEROL SULFATE 2.5 MG/3 ML NEBU NEB SCH ×7 (00:29→23:40)
[2022-08-01] MEDS: IPRATROPIUM BROMIDE 0.5 MG/2.5 ML NEBU NEB SCH ×7 (00:29→23:40)
[2022-08-01] MEDS: OMEPRAZOLE 20 MG CAPSULE.DR GT SCH (05:04)
[2022-08-01] MEDS: MIDODRINE HCL 5 MG TABLET GT SCH ×3 (05:04→22:00)
[2022-08-01] MEDS: BACLOFEN 10 MG TABLET GT SCH ×5 (05:04→23:41)
[2022-08-01] MEDS: OMEGA-3 FATTY ACIDS/FISH OIL CAPSULE GT SCH ×2 (05:04→18:08)
[2022-08-01] MEDS: ARGININE/GLUTAMINE/CALCIUM BMB 1 EACH POWD.PACK GT SCH ×2 (05:04→18:08)
[2022-08-01] MEDS: PROTEIN SUPPLEMENT (PROSTAT) 30 ML LIQUID GT SCH ×3 (05:04→22:00)
[2022-08-01] MEDS: HYDROCODONE/APAP 10-325 MG TABLET GT PRN ×2 (05:05→16:46)
[2022-08-01 06:46] LABS: BASOPHILS % (AUTO) 0.3 % (0.0-2.0); EOSINOPHILS # (AUTO) 0.4 K/uL (0.0-0.7); EOSINOPHILS % (AUTO) 2.4 % (0.0-7.0); HEMATOCRIT 32.2 % (31.2-41.9); HEMOGLOBIN 10.1 g/dL (10.9-14.3); LYMPHOCYTES # (AUTO) 1.9 K/uL (0.8-4.8); LYMPHOCYTES % (AUTO) 13.1 % (20.5-51.5); MEAN CORPUSCULAR HEMOGLOBIN 26.6 uug (24.7-32.8); MEAN CORPUSCULAR HGB CONC 32 g/dL (32.3-35.6); MEAN CORPUSCULAR VOLUME 84.6 fL (75.5-95.3); MONOCYTES # (AUTO) 1.3 K/uL (0.1-1.30); NEUTROPHILS % (AUTO) 75.2 % (38.5-71.5); PLATELET COUNT (AUTO) 312 K/uL (179-408); RED CELL DISTRIBUTION WIDTH 18.3 % (12.3-17.7); WHITE BLOOD COUNT (AUTO) 14.7 K/uL (3.8-11.8)
[2022-08-01 06:57] LABS: DIFFERENTIAL COMMENT 1
[2022-08-01 07:08] LABS: ALBUMIN 2.3 g/dL (3.4-5.0); BILIRUBIN,TOTAL 0.3 mg/dL (0.2-1.0); CALCIUM 9.6 mg/dL (8.5-10.1); CREATININE 0.8 mg/dL (0.6-1.3); POTASSIUM 3.8 mmol/L (3.5-5.1); TOTAL PROTEIN, SERUM 8.9 g/dL (6.4-8.2)
[2022-08-01] MEDS: ACETAMINOPHEN 650 MG/20.3 ML LIQUID UDC GT SCH ×2 (08:42→20:30)
[2022-08-01] MEDS: ACIDOPHILUS/BULGARICUS CHEW TAB GT SCH ×2 (08:42→21:00)
[2022-08-01] MEDS: APIXABAN 5 MG TABLET GT SCH ×2 (08:42→21:00)
[2022-08-01] MEDS: SODIUM HYPOCHLORITE 0.125% (QUARTER STRENGTH) 473 ML BOTTLE TP SCH ×4 (08:43→21:00)
[2022-08-01] MEDS: REMEDY ESSENTIAL ZINC PASTE 113 GM TP SCH ×3 (08:43→21:00)
[2022-08-01] MEDS: HYDROGEN PEROXIDE 3% 118 ML BOTTLE TP SCH ×2 (09:31→19:11)
[2022-08-01] MEDS: SERTRALINE 25MG TABLET GT SCH (11:44)
[2022-08-01] MEDS: CEFEPIME HCL 1 G in IV DEXTROSE 5% 50 ML IV SCH (18:01)
[2022-08-01] MEDS: ASCORBIC ACID 500 MG TABLET GT SCH (21:00)
[2022-08-01] MEDS: MULTIVIT, IRON, MIN NO. 8, FA TABLET GT SCH (21:00)
[2022-08-01] MEDS: SIMVASTATIN 10 MG TABLET GT SCH (21:00)
[2022-08-01] MEDS: ESTROGENS,CONJU VAGINAL CREAM 42.5 GM TUBE VG SCH (21:00)
[2022-08-01] MEDS: TEMAZEPAM 7.5 MG CAPSULE GT PRN (23:30)
[2022-08-02] VITALS (14 sets, daily range): TEMP 98.9–100.2; O2SAT 97–99
[2022-08-02] MEDS: CEFEPIME HCL 1 G in IV DEXTROSE 5% 50 ML IV SCH ×3 (01:41→18:00)
[2022-08-02] MEDS: ALBUTEROL SULFATE 2.5 MG/3 ML NEBU NEB SCH ×6 (03:05→23:47)
[2022-08-02] MEDS: IPRATROPIUM BROMIDE 0.5 MG/2.5 ML NEBU NEB SCH ×6 (03:05→23:47)
[2022-08-02] MEDS: HYDROCODONE/APAP 10-325 MG TABLET GT PRN ×2 (05:00→16:51)
[2022-08-02] MEDS: PROTEIN SUPPLEMENT (PROSTAT) 30 ML LIQUID GT SCH ×3 (05:12→21:25)
[2022-08-02] MEDS: OMEGA-3 FATTY ACIDS/FISH OIL CAPSULE GT SCH ×2 (05:12→18:32)
[2022-08-02] MEDS: ARGININE/GLUTAMINE/CALCIUM BMB 1 EACH POWD.PACK GT SCH ×2 (05:12→18:32)
[2022-08-02] MEDS: MIDODRINE HCL 5 MG TABLET GT SCH ×3 (05:12→21:25)
[2022-08-02] MEDS: BACLOFEN 10 MG TABLET GT SCH ×3 (05:12→18:32)
[2022-08-02] MEDS: OMEPRAZOLE 20 MG CAPSULE.DR GT SCH (05:12)
[2022-08-02] MEDS: ACETAMINOPHEN 650 MG/20.3 ML LIQUID UDC GT SCH ×2 (08:48→21:24)
[2022-08-02] MEDS: APIXABAN 5 MG TABLET GT SCH ×2 (08:49→21:00)
[2022-08-02] MEDS: ACIDOPHILUS/BULGARICUS CHEW TAB GT SCH ×2 (08:49→21:24)
[2022-08-02] MEDS: SODIUM HYPOCHLORITE 0.125% (QUARTER STRENGTH) 473 ML BOTTLE TP SCH ×4 (08:49→21:24)
[2022-08-02] MEDS: REMEDY ESSENTIAL ZINC PASTE 113 GM TP SCH ×3 (08:50→21:24)
[2022-08-02] MEDS: GLUCERNA 1.2 1000ML LIQUID GT PRN (08:51)
[2022-08-02] MEDS: HYDROGEN PEROXIDE 3% 118 ML BOTTLE TP SCH ×2 (09:21→20:20)
[2022-08-02] MEDS: SERTRALINE 25MG TABLET GT SCH (12:34)
[2022-08-02] MEDS: ESTROGENS,CONJU VAGINAL CREAM 42.5 GM TUBE VG SCH (21:24)
[2022-08-02] MEDS: ASCORBIC ACID 500 MG TABLET GT SCH (21:24)
[2022-08-02] MEDS: MULTIVIT, IRON, MIN NO. 8, FA TABLET GT SCH (21:24)
[2022-08-02] MEDS: SIMVASTATIN 10 MG TABLET GT SCH (21:24)
[2022-08-03] VITALS (16 sets, daily range): TEMP 99–99.3; O2SAT 97–99
[2022-08-03] MEDS: TEMAZEPAM 7.5 MG CAPSULE GT PRN (00:51)
[2022-08-03] MEDS: BACLOFEN 10 MG TABLET GT SCH ×4 (00:51→18:41)
[2022-08-03] MEDS: CEFEPIME HCL 1 G in IV DEXTROSE 5% 50 ML IV SCH ×3 (02:00→18:00)
[2022-08-03] MEDS: ALBUTEROL SULFATE 2.5 MG/3 ML NEBU NEB SCH ×5 (03:30→19:22)
[2022-08-03] MEDS: IPRATROPIUM BROMIDE 0.5 MG/2.5 ML NEBU NEB SCH ×5 (03:30→19:22)
[2022-08-03] MEDS: ACETAMINOPHEN 650 MG/20 ML UDC- SA PATIENTS-PAIN ONLY GT PRN (05:00)
[2022-08-03] MEDS: MIDODRINE HCL 5 MG TABLET GT SCH ×3 (05:35→21:59)
[2022-08-03] MEDS: ARGININE/GLUTAMINE/CALCIUM BMB 1 EACH POWD.PACK GT SCH ×2 (05:35→18:41)
[2022-08-03] MEDS: OMEGA-3 FATTY ACIDS/FISH OIL CAPSULE GT SCH ×2 (05:35→18:41)
[2022-08-03] MEDS: OMEPRAZOLE 20 MG CAPSULE.DR GT SCH (05:35)
[2022-08-03] MEDS: PROTEIN SUPPLEMENT (PROSTAT) 30 ML LIQUID GT SCH ×3 (05:36→21:59)
[2022-08-03 07:07] LABS: BASOPHILS # (AUTO) 0.1 K/UL (0.0-0.2); BASOPHILS % (AUTO) 0.4 % (0.0-2.0); EOSINOPHILS # (AUTO) 0.5 K/uL (0.0-0.7); EOSINOPHILS % (AUTO) 3.1 % (0.0-7.0); HEMATOCRIT 30.9 % (31.2-41.9); HEMOGLOBIN 9.6 g/dL (10.9-14.3); LYMPHOCYTES # (AUTO) 1.4 K/uL (0.8-4.8); LYMPHOCYTES % (AUTO) 9.2 % (20.5-51.5); MEAN CORPUSCULAR HEMOGLOBIN 26.3 uug (24.7-32.8); MEAN CORPUSCULAR HGB CONC 31 g/dL (32.3-35.6); MEAN CORPUSCULAR VOLUME 84.1 fL (75.5-95.3); MONOCYTES # (AUTO) 1.2 K/uL (0.1-1.30); MONOCYTES % (AUTO) 7.9 % (0.0-11.0); NEUTROPHILS # (AUTO) 11.7 K/uL (1.8-8.9); NEUTROPHILS % (AUTO) 79.4 % (38.5-71.5); PLATELET COUNT (AUTO) 320 K/uL (179-408); RED BLOOD CELL COUNT(AUTO) 3.67 MIL/uL (3.63-4.92); RED CELL DISTRIBUTION WIDTH 18.5 % (12.3-17.7); WHITE BLOOD COUNT (AUTO) 14.8 K/uL (3.8-11.8)
[2022-08-03 07:31] LABS: ALBUMIN 2.1 g/dL (3.4-5.0); BILIRUBIN,TOTAL 0.3 mg/dL (0.2-1.0); CALCIUM 9.7 mg/dL (8.5-10.1); CREATININE 0.9 mg/dL (0.6-1.3); DIFFERENTIAL COMMENT 1; POTASSIUM 3.5 mmol/L (3.5-5.1); TOTAL PROTEIN, SERUM 8.6 g/dL (6.4-8.2)
[2022-08-03] MEDS: ACETAMINOPHEN 650 MG/20.3 ML LIQUID UDC GT SCH ×2 (09:16→20:30)
[2022-08-03] MEDS: APIXABAN 5 MG TABLET GT SCH ×2 (09:17→21:57)
[2022-08-03] MEDS: SODIUM HYPOCHLORITE 0.125% (QUARTER STRENGTH) 473 ML BOTTLE TP SCH ×4 (09:18→21:58)
[2022-08-03] MEDS: ACIDOPHILUS/BULGARICUS CHEW TAB GT SCH ×2 (09:18→21:55)
[2022-08-03] MEDS: HYDROGEN PEROXIDE 3% 118 ML BOTTLE TP SCH ×2 (09:19→21:04)
[2022-08-03] MEDS: REMEDY ESSENTIAL ZINC PASTE 113 GM TP SCH ×3 (09:19→21:58)
[2022-08-03] MEDS: SERTRALINE 25MG TABLET GT SCH (12:50)
[2022-08-03] MEDS ORDERED: GLUCERNA 1.2 1000ML LIQUID GT PRN (17:32)
[2022-08-03] MEDS: VANCOMYCIN IV 750 MG in IV DEXTROSE 5% 250 ML IV SCH (20:29)
[2022-08-03] MEDS: MULTIVIT, IRON, MIN NO. 8, FA TABLET GT SCH (21:57)
[2022-08-03] MEDS: ASCORBIC ACID 500 MG TABLET GT SCH (21:58)
[2022-08-03] MEDS: ESTROGENS,CONJU VAGINAL CREAM 42.5 GM TUBE VG SCH (21:58)
[2022-08-03] MEDS: SIMVASTATIN 10 MG TABLET GT SCH (21:58)
[2022-08-04] VITALS (15 sets, daily range): TEMP 98.6–98.8; O2SAT 97–99
[2022-08-04] MEDS: IPRATROPIUM BROMIDE 0.5 MG/2.5 ML NEBU NEB SCH ×7 (00:13→23:13)
[2022-08-04] MEDS: ALBUTEROL SULFATE 2.5 MG/3 ML NEBU NEB SCH ×7 (00:13→23:13)
[2022-08-04] MEDS: CEFEPIME HCL 1 G in IV DEXTROSE 5% 50 ML IV SCH ×3 (02:18→18:18)
[2022-08-04] MEDS: OMEPRAZOLE 20 MG CAPSULE.DR GT SCH (05:28)
[2022-08-04] MEDS: ARGININE/GLUTAMINE/CALCIUM BMB 1 EACH POWD.PACK GT SCH ×2 (05:28→17:47)
[2022-08-04] MEDS: OMEGA-3 FATTY ACIDS/FISH OIL CAPSULE GT SCH ×2 (05:28→17:47)
[2022-08-04] MEDS: BACLOFEN 10 MG TABLET GT SCH ×4 (05:28→17:47)
[2022-08-04] MEDS: MIDODRINE HCL 5 MG TABLET GT SCH ×3 (05:29→22:00)
[2022-08-04] MEDS: PROTEIN SUPPLEMENT (PROSTAT) 30 ML LIQUID GT SCH ×3 (05:29→22:00)
[2022-08-04] MEDS: ACETAMINOPHEN 650 MG/20.3 ML LIQUID UDC GT SCH ×2 (08:30→20:30)
[2022-08-04] MEDS: VANCOMYCIN IV 750 MG in IV DEXTROSE 5% 250 ML IV SCH ×2 (08:42→20:01)
[2022-08-04] MEDS: HYDROGEN PEROXIDE 3% 118 ML BOTTLE TP SCH ×2 (09:00→21:00)
[2022-08-04] MEDS: REMEDY ESSENTIAL ZINC PASTE 113 GM TP SCH ×3 (09:53→21:00)
[2022-08-04] MEDS: APIXABAN 5 MG TABLET GT SCH ×2 (09:53→21:00)
[2022-08-04] MEDS: SODIUM HYPOCHLORITE 0.125% (QUARTER STRENGTH) 473 ML BOTTLE TP SCH ×4 (09:53→21:00)
[2022-08-04] MEDS: ACIDOPHILUS/BULGARICUS CHEW TAB GT SCH ×2 (09:53→21:00)
[2022-08-04] MEDS: HYDROCODONE/APAP 10-325 MG TABLET GT PRN (09:54)
[2022-08-04] MEDS: SERTRALINE 25MG TABLET GT SCH (12:21)
[2022-08-04] MEDS: ASCORBIC ACID 500 MG TABLET GT SCH (21:00)
[2022-08-04] MEDS: MULTIVIT, IRON, MIN NO. 8, FA TABLET GT SCH (21:00)
[2022-08-04] MEDS: SIMVASTATIN 10 MG TABLET GT SCH (21:00)
[2022-08-04] MEDS: ESTROGENS,CONJU VAGINAL CREAM 42.5 GM TUBE VG SCH (21:00)
[2022-08-05] VITALS (14 sets, daily range): TEMP 98.1–99; O2SAT 98–99
[2022-08-05] MEDS: BACLOFEN 10 MG TABLET GT SCH ×4 (00:52→17:13)
[2022-08-05] MEDS: CEFEPIME HCL 1 G in IV DEXTROSE 5% 50 ML IV SCH ×3 (01:21→17:04)
[2022-08-05] MEDS: HYDROCODONE/APAP 10-325 MG TABLET GT PRN ×4 (02:34→23:30)
[2022-08-05] MEDS: TEMAZEPAM 7.5 MG CAPSULE GT PRN ×2 (02:34→21:00)
[2022-08-05] MEDS: ALBUTEROL SULFATE 2.5 MG/3 ML NEBU NEB SCH ×6 (03:31→23:26)
[2022-08-05] MEDS: IPRATROPIUM BROMIDE 0.5 MG/2.5 ML NEBU NEB SCH ×6 (03:31→23:26)
[2022-08-05] MEDS: OMEGA-3 FATTY ACIDS/FISH OIL CAPSULE GT SCH ×2 (05:15→17:13)
[2022-08-05] MEDS: OMEPRAZOLE 20 MG CAPSULE.DR GT SCH (05:15)
[2022-08-05] MEDS: ARGININE/GLUTAMINE/CALCIUM BMB 1 EACH POWD.PACK GT SCH ×2 (05:15→17:13)
[2022-08-05] MEDS: PROTEIN SUPPLEMENT (PROSTAT) 30 ML LIQUID GT SCH ×3 (05:17→22:38)
[2022-08-05] MEDS: MIDODRINE HCL 5 MG TABLET GT SCH ×3 (05:17→22:00)
[2022-08-05 08:14] LABS: CREATININE 0.7 mg/dL (0.6-1.3); VANCOMYCIN,TROUGH 18.2 ug/mL (12.0-20.0)
[2022-08-05] MEDS: VANCOMYCIN IV 750 MG in IV DEXTROSE 5% 250 ML IV SCH ×2 (08:37→19:42)
[2022-08-05] MEDS: HYDROGEN PEROXIDE 3% 118 ML BOTTLE TP SCH ×2 (09:00→21:11)
[2022-08-05] MEDS: ACIDOPHILUS/BULGARICUS CHEW TAB GT SCH ×2 (09:08→20:51)
[2022-08-05] MEDS: ACETAMINOPHEN 650 MG/20.3 ML LIQUID UDC GT SCH ×2 (09:08→20:30)
[2022-08-05] MEDS: APIXABAN 5 MG TABLET GT SCH ×2 (09:08→21:00)
[2022-08-05] MEDS: SODIUM HYPOCHLORITE 0.125% (QUARTER STRENGTH) 473 ML BOTTLE TP SCH ×4 (09:08→20:53)
[2022-08-05] MEDS: REMEDY ESSENTIAL ZINC PASTE 113 GM TP SCH ×3 (09:09→20:53)
[2022-08-05] MEDS: SERTRALINE 25MG TABLET GT SCH (12:00)
[2022-08-05] MEDS: MULTIVIT, IRON, MIN NO. 8, FA TABLET GT SCH (20:53)
[2022-08-05] MEDS: SIMVASTATIN 10 MG TABLET GT SCH (20:53)
[2022-08-05] MEDS: ASCORBIC ACID 500 MG TABLET GT SCH (20:53)
[2022-08-05] MEDS: ESTROGENS,CONJU VAGINAL CREAM 42.5 GM TUBE VG SCH (20:53)
[2022-08-06] VITALS (13 sets, daily range): TEMP 97.8; O2SAT 96–99
[2022-08-06] MEDS: CEFEPIME HCL 1 G in IV DEXTROSE 5% 50 ML IV SCH ×3 (01:18→17:48)
[2022-08-06] MEDS: ALBUTEROL SULFATE 2.5 MG/3 ML NEBU NEB SCH ×6 (03:30→23:36)
[2022-08-06] MEDS: IPRATROPIUM BROMIDE 0.5 MG/2.5 ML NEBU NEB SCH ×6 (03:30→23:36)
[2022-08-06] MEDS: HYDROCODONE/APAP 10-325 MG TABLET GT PRN ×3 (05:00→22:01)
[2022-08-06] MEDS: ARGININE/GLUTAMINE/CALCIUM BMB 1 EACH POWD.PACK GT SCH ×2 (05:02→17:07)
[2022-08-06] MEDS: BACLOFEN 10 MG TABLET GT SCH ×4 (05:02→17:08)
[2022-08-06] MEDS: MIDODRINE HCL 5 MG TABLET GT SCH ×3 (05:02→21:10)
[2022-08-06] MEDS: OMEGA-3 FATTY ACIDS/FISH OIL CAPSULE GT SCH ×2 (05:02→17:07)
[2022-08-06] MEDS: OMEPRAZOLE 20 MG CAPSULE.DR GT SCH (05:02)
[2022-08-06] MEDS: PROTEIN SUPPLEMENT (PROSTAT) 30 ML LIQUID GT SCH ×3 (05:03→21:10)
[2022-08-06] MEDS: ACETAMINOPHEN 650 MG/20.3 ML LIQUID UDC GT SCH ×2 (08:32→20:30)
[2022-08-06] MEDS: SODIUM HYPOCHLORITE 0.125% (QUARTER STRENGTH) 473 ML BOTTLE TP SCH ×4 (08:33→21:08)
[2022-08-06] MEDS: APIXABAN 5 MG TABLET GT SCH ×2 (08:33→21:06)
[2022-08-06] MEDS: ACIDOPHILUS/BULGARICUS CHEW TAB GT SCH ×2 (08:33→21:08)
[2022-08-06] MEDS: REMEDY ESSENTIAL ZINC PASTE 113 GM TP SCH ×3 (08:34→21:08)
[2022-08-06] MEDS: VANCOMYCIN IV 750 MG in IV DEXTROSE 5% 250 ML IV SCH ×2 (08:56→20:00)
[2022-08-06] MEDS: HYDROGEN PEROXIDE 3% 118 ML BOTTLE TP SCH ×2 (08:57→19:23)
[2022-08-06] MEDS: SERTRALINE 25MG TABLET GT SCH (12:27)
[2022-08-06] MEDS: GLUCERNA 1.2 1000ML LIQUID GT PRN (17:08)
[2022-08-06] MEDS: TEMAZEPAM 7.5 MG CAPSULE GT PRN (21:00)
[2022-08-06] MEDS: ESTROGENS,CONJU VAGINAL CREAM 42.5 GM TUBE VG SCH (21:08)
[2022-08-06] MEDS: MULTIVIT, IRON, MIN NO. 8, FA TABLET GT SCH (21:08)
[2022-08-06] MEDS: ASCORBIC ACID 500 MG TABLET GT SCH (21:08)
[2022-08-06] MEDS: SIMVASTATIN 10 MG TABLET GT SCH (21:08)
[2022-08-07] VITALS (15 sets, daily range): TEMP 98.1–99.4; O2SAT 97–99
[2022-08-07] MEDS: CEFEPIME HCL 1 G in IV DEXTROSE 5% 50 ML IV SCH (01:24)
[2022-08-07] MEDS: IPRATROPIUM BROMIDE 0.5 MG/2.5 ML NEBU NEB SCH ×7 (03:05→23:04)
[2022-08-07] MEDS: ALBUTEROL SULFATE 2.5 MG/3 ML NEBU NEB SCH ×6 (03:05→23:10)
[2022-08-07] MEDS: HYDROCODONE/APAP 10-325 MG TABLET GT PRN (04:30)
[2022-08-07] MEDS: OMEPRAZOLE 20 MG CAPSULE.DR GT SCH (05:23)
[2022-08-07] MEDS: ARGININE/GLUTAMINE/CALCIUM BMB 1 EACH POWD.PACK GT SCH ×2 (05:23→17:11)
[2022-08-07] MEDS: MIDODRINE HCL 5 MG TABLET GT SCH ×3 (05:23→21:14)
[2022-08-07] MEDS: OMEGA-3 FATTY ACIDS/FISH OIL CAPSULE GT SCH ×2 (05:23→17:11)
[2022-08-07] MEDS: BACLOFEN 10 MG TABLET GT SCH ×4 (05:23→17:11)
[2022-08-07] MEDS: PROTEIN SUPPLEMENT (PROSTAT) 30 ML LIQUID GT SCH ×3 (05:23→21:14)
[2022-08-07] MEDS: VANCOMYCIN IV 750 MG in IV DEXTROSE 5% 250 ML IV SCH ×2 (08:04→20:20)
[2022-08-07] MEDS: APIXABAN 5 MG TABLET GT SCH ×2 (08:27→21:14)
[2022-08-07] MEDS: ACETAMINOPHEN 650 MG/20.3 ML LIQUID UDC GT SCH ×2 (08:27→21:12)
[2022-08-07] MEDS: ACIDOPHILUS/BULGARICUS CHEW TAB GT SCH ×2 (08:28→21:14)
[2022-08-07] MEDS: REMEDY ESSENTIAL ZINC PASTE 113 GM TP SCH ×3 (08:28→21:14)
[2022-08-07] MEDS: SODIUM HYPOCHLORITE 0.125% (QUARTER STRENGTH) 473 ML BOTTLE TP SCH ×4 (08:28→21:14)
[2022-08-07] MEDS: HYDROGEN PEROXIDE 3% 118 ML BOTTLE TP SCH ×2 (09:28→19:25)
[2022-08-07] MEDS ORDERED: CEFEPIME HCL 2 G in IV DEXTROSE 5% 50 ML IV SCH (10:00)
[2022-08-07] MEDS ORDERED: CEFEPIME HCL 2 G in IV DEXTROSE 5% 100 ML IV SCH (10:11)
[2022-08-07] MEDS: SERTRALINE 25MG TABLET GT SCH (11:28)
[2022-08-07] MEDS: CEFEPIME HCL 2 G in IV DEXTROSE 5% 100 ML IV SCH (17:23)
[2022-08-07] MEDS: MULTIVIT, IRON, MIN NO. 8, FA TABLET GT SCH (21:14)
[2022-08-07] MEDS: SIMVASTATIN 10 MG TABLET GT SCH (21:14)
[2022-08-07] MEDS: ASCORBIC ACID 500 MG TABLET GT SCH (21:14)
[2022-08-07] MEDS: ESTROGENS,CONJU VAGINAL CREAM 42.5 GM TUBE VG SCH (21:14)
[2022-08-07] MEDS: TEMAZEPAM 7.5 MG CAPSULE GT PRN ×2 (21:15→22:15)
[2022-08-07] MEDS: GLUCERNA 1.2 1000ML LIQUID GT PRN (23:16)
[2022-08-08] VITALS (14 sets, daily range): TEMP 98.9–99.8; O2SAT 96–99
[2022-08-08] MEDS: CEFEPIME HCL 2 G in IV DEXTROSE 5% 100 ML IV SCH (01:36)
[2022-08-08] MEDS: ALBUTEROL SULFATE 2.5 MG/3 ML NEBU NEB SCH ×6 (03:32→23:30)
[2022-08-08] MEDS: IPRATROPIUM BROMIDE 0.5 MG/2.5 ML NEBU NEB SCH ×6 (03:32→23:30)
[2022-08-08] MEDS: BACLOFEN 10 MG TABLET GT SCH ×4 (05:14→17:53)
[2022-08-08] MEDS: OMEGA-3 FATTY ACIDS/FISH OIL CAPSULE GT SCH ×2 (05:14→17:53)
[2022-08-08] MEDS: ARGININE/GLUTAMINE/CALCIUM BMB 1 EACH POWD.PACK GT SCH ×2 (05:14→17:53)
[2022-08-08] MEDS: OMEPRAZOLE 20 MG CAPSULE.DR GT SCH (05:14)
[2022-08-08] MEDS: PROTEIN SUPPLEMENT (PROSTAT) 30 ML LIQUID GT SCH ×3 (05:14→21:26)
[2022-08-08] MEDS: MIDODRINE HCL 5 MG TABLET GT SCH ×3 (05:14→21:26)
[2022-08-08] MEDS: VANCOMYCIN IV 750 MG in IV DEXTROSE 5% 250 ML IV SCH (08:33)
[2022-08-08] MEDS: ACETAMINOPHEN 650 MG/20.3 ML LIQUID UDC GT SCH ×2 (08:57→20:45)
[2022-08-08] MEDS: APIXABAN 5 MG TABLET GT SCH ×2 (08:58→20:47)
[2022-08-08] MEDS: HYDROGEN PEROXIDE 3% 118 ML BOTTLE TP SCH ×2 (08:58→21:23)
[2022-08-08] MEDS: ACIDOPHILUS/BULGARICUS CHEW TAB GT SCH ×2 (08:58→20:47)
[2022-08-08] MEDS: SODIUM HYPOCHLORITE 0.125% (QUARTER STRENGTH) 473 ML BOTTLE TP SCH ×4 (08:58→20:48)
[2022-08-08] MEDS: REMEDY ESSENTIAL ZINC PASTE 113 GM TP SCH ×3 (09:02→20:48)
[2022-08-08 11:47] LABS: BASOPHILS % (AUTO) 0.3 % (0.0-2.0); EOSINOPHILS # (AUTO) 0.3 K/uL (0.0-0.7); EOSINOPHILS % (AUTO) 2.9 % (0.0-7.0); HEMATOCRIT 27.6 % (31.2-41.9); HEMOGLOBIN 8.5 g/dL (10.9-14.3); LYMPHOCYTES # (AUTO) 1.7 K/uL (0.8-4.8); LYMPHOCYTES % (AUTO) 14.7 % (20.5-51.5); MEAN CORPUSCULAR HEMOGLOBIN 26.1 uug (24.7-32.8); MEAN CORPUSCULAR HGB CONC 31 g/dL (32.3-35.6); MEAN CORPUSCULAR VOLUME 85.2 fL (75.5-95.3); MONOCYTES # (AUTO) 0.9 K/uL (0.1-1.30); MONOCYTES % (AUTO) 7.9 % (0.0-11.0); NEUTROPHILS # (AUTO) 8.3 K/uL (1.8-8.9); NEUTROPHILS % (AUTO) 74.2 % (38.5-71.5); PLATELET COUNT (AUTO) 389 K/uL (179-408); RED BLOOD CELL COUNT(AUTO) 3.24 MIL/uL (3.63-4.92); WHITE BLOOD COUNT (AUTO) 11.2 K/uL (3.8-11.8)
[2022-08-08 12:22] LABS: DIFFERENTIAL COMMENT 1
[2022-08-08 12:42] LABS: ALBUMIN 1.8 g/dL (3.4-5.0); BILIRUBIN,TOTAL 0.3 mg/dL (0.2-1.0); C-REACTIVE PROTEIN 10.6 mg/dL (0.0-0.9); CALCIUM 9.2 mg/dL (8.5-10.1); CREATININE 0.6 mg/dL (0.6-1.3); POTASSIUM 3.5 mmol/L (3.5-5.1); TOTAL PROTEIN, SERUM 7.8 g/dL (6.4-8.2)
[2022-08-08 12:43] LABS: ERYTHROCYTE SEDIMENTATION RATE 135 MM/HR (0-20)
[2022-08-08] MEDS: SERTRALINE 25MG TABLET GT SCH (12:51)
[2022-08-08] MEDS: MEROPENEM 1 G in IV NORMAL SALINE 100 ML IV SCH ×2 (13:32→22:16)
[2022-08-08] MEDS: HYDROCODONE/APAP 10-325 MG TABLET GT PRN (17:54)
[2022-08-08] MEDS: GENTAMICIN SULFATE IV SCH (19:40)
[2022-08-08] MEDS: DEXTROSE 5% IV SCH (19:40)
[2022-08-08] MEDS: MULTIVIT, IRON, MIN NO. 8, FA TABLET GT SCH (20:47)
[2022-08-08] MEDS: SIMVASTATIN 10 MG TABLET GT SCH (20:48)
[2022-08-08] MEDS: ASCORBIC ACID 500 MG TABLET GT SCH (20:48)
[2022-08-08] MEDS: ESTROGENS,CONJU VAGINAL CREAM 42.5 GM TUBE VG SCH (20:48)
[2022-08-08] MEDS: TEMAZEPAM 7.5 MG CAPSULE GT PRN ×2 (21:27→22:27)
[2022-08-09] VITALS (14 sets, daily range): TEMP 98.6–99.2; O2SAT 96–99
[2022-08-09] MEDS: GLUCERNA 1.2 1000ML LIQUID GT PRN (01:07)
[2022-08-09] MEDS: IPRATROPIUM BROMIDE 0.5 MG/2.5 ML NEBU NEB SCH ×6 (04:09→23:30)
[2022-08-09] MEDS: ALBUTEROL SULFATE 2.5 MG/3 ML NEBU NEB SCH ×6 (04:09→23:30)
[2022-08-09] MEDS: BACLOFEN 10 MG TABLET GT SCH ×4 (05:40→17:28)
[2022-08-09] MEDS: PROTEIN SUPPLEMENT (PROSTAT) 30 ML LIQUID GT SCH ×3 (05:40→21:24)
[2022-08-09] MEDS: MIDODRINE HCL 5 MG TABLET GT SCH ×3 (05:40→21:24)
[2022-08-09] MEDS: OMEGA-3 FATTY ACIDS/FISH OIL CAPSULE GT SCH ×2 (05:40→17:28)
[2022-08-09] MEDS: ARGININE/GLUTAMINE/CALCIUM BMB 1 EACH POWD.PACK GT SCH ×2 (05:40→17:28)
[2022-08-09] MEDS: OMEPRAZOLE 20 MG CAPSULE.DR GT SCH (05:40)
[2022-08-09] MEDS: MEROPENEM 1 G in IV NORMAL SALINE 100 ML IV SCH ×3 (06:35→22:08)
[2022-08-09] MEDS: ACETAMINOPHEN 650 MG/20.3 ML LIQUID UDC GT SCH ×2 (07:49→21:22)
[2022-08-09 07:58] LABS: CREATININE 0.6 mg/dL (0.6-1.3)
[2022-08-09] MEDS: GENTAMICIN SULFATE IV SCH ×2 (08:55→20:38)
[2022-08-09] MEDS: DEXTROSE 5% IV SCH ×2 (08:55→20:38)
[2022-08-09] MEDS: APIXABAN 5 MG TABLET GT SCH ×2 (09:05→21:22)
[2022-08-09] MEDS: ACIDOPHILUS/BULGARICUS CHEW TAB GT SCH ×2 (09:07→21:23)
[2022-08-09] MEDS: SODIUM HYPOCHLORITE 0.125% (QUARTER STRENGTH) 473 ML BOTTLE TP SCH ×4 (09:09→21:24)
[2022-08-09] MEDS: REMEDY ESSENTIAL ZINC PASTE 113 GM TP SCH ×3 (09:12→21:24)
[2022-08-09] MEDS: HYDROGEN PEROXIDE 3% 118 ML BOTTLE TP SCH ×2 (09:40→19:20)
[2022-08-09] MEDS: SERTRALINE 25MG TABLET GT SCH (12:32)
[2022-08-09] MEDS: HYDROCODONE/APAP 10-325 MG TABLET GT PRN (14:09)
[2022-08-09] MEDS: MULTIVIT, IRON, MIN NO. 8, FA TABLET GT SCH (21:23)
[2022-08-09] MEDS: SIMVASTATIN 10 MG TABLET GT SCH (21:23)
[2022-08-09] MEDS: ASCORBIC ACID 500 MG TABLET GT SCH (21:23)
[2022-08-09] MEDS: ESTROGENS,CONJU VAGINAL CREAM 42.5 GM TUBE VG SCH (21:24)
[2022-08-09] MEDS: TEMAZEPAM 7.5 MG CAPSULE GT PRN (22:00)
[2022-08-10] VITALS (12 sets, daily range): TEMP 98.1; O2SAT 98–99
[2022-08-10] MEDS: BACLOFEN 10 MG TABLET GT SCH ×5 (00:36→23:23)
[2022-08-10] MEDS: IPRATROPIUM BROMIDE 0.5 MG/2.5 ML NEBU NEB SCH ×6 (03:31→23:27)
[2022-08-10] MEDS: ALBUTEROL SULFATE 2.5 MG/3 ML NEBU NEB SCH ×6 (03:31→23:27)
[2022-08-10] MEDS: OMEPRAZOLE 20 MG CAPSULE.DR GT SCH (05:36)
[2022-08-10] MEDS: OMEGA-3 FATTY ACIDS/FISH OIL CAPSULE GT SCH ×2 (05:36→17:48)
[2022-08-10] MEDS: ARGININE/GLUTAMINE/CALCIUM BMB 1 EACH POWD.PACK GT SCH ×2 (05:36→17:48)
[2022-08-10] MEDS: MIDODRINE HCL 5 MG TABLET GT SCH ×3 (05:37→21:13)
[2022-08-10] MEDS: PROTEIN SUPPLEMENT (PROSTAT) 30 ML LIQUID GT SCH ×3 (05:49→21:15)
[2022-08-10] MEDS: MEROPENEM 1 G in IV NORMAL SALINE 100 ML IV SCH ×3 (06:10→21:56)
[2022-08-10] MEDS: DEXTROSE 5% IV SCH ×2 (08:00→20:00)
[2022-08-10] MEDS: GENTAMICIN SULFATE IV SCH ×2 (08:00→20:00)
[2022-08-10] MEDS: ACETAMINOPHEN 650 MG/20.3 ML LIQUID UDC GT SCH ×2 (08:56→20:30)
[2022-08-10] MEDS: APIXABAN 5 MG TABLET GT SCH ×2 (08:57→21:09)
[2022-08-10] MEDS: ACIDOPHILUS/BULGARICUS CHEW TAB GT SCH ×2 (08:57→21:09)
[2022-08-10] MEDS: REMEDY ESSENTIAL ZINC PASTE 113 GM TP SCH ×3 (08:58→21:15)
[2022-08-10] MEDS: SODIUM HYPOCHLORITE 0.125% (QUARTER STRENGTH) 473 ML BOTTLE TP SCH ×4 (08:58→21:15)
[2022-08-10] MEDS: HYDROGEN PEROXIDE 3% 118 ML BOTTLE TP SCH ×2 (09:37→19:22)
[2022-08-10] MEDS: SERTRALINE 25MG TABLET GT SCH (12:26)
[2022-08-10] MEDS: GLUCERNA 1.2 1000ML LIQUID GT PRN (12:26)
[2022-08-10] MEDS: MULTIVIT, IRON, MIN NO. 8, FA TABLET GT SCH (21:13)
[2022-08-10] MEDS: ASCORBIC ACID 500 MG TABLET GT SCH (21:14)
[2022-08-10] MEDS: SIMVASTATIN 10 MG TABLET GT SCH (21:15)
[2022-08-10] MEDS: ESTROGENS,CONJU VAGINAL CREAM 42.5 GM TUBE VG SCH (21:15)
[2022-08-10] MEDS: TEMAZEPAM 7.5 MG CAPSULE GT PRN (22:00)
[2022-08-11] VITALS (12 sets, daily range): TEMP 97.8–97.9; O2SAT 98–99
[2022-08-11] MEDS: IPRATROPIUM BROMIDE 0.5 MG/2.5 ML NEBU NEB SCH ×5 (03:06→19:09)
[2022-08-11] MEDS: ALBUTEROL SULFATE 2.5 MG/3 ML NEBU NEB SCH ×5 (03:06→19:09)
[2022-08-11] MEDS: ARGININE/GLUTAMINE/CALCIUM BMB 1 EACH POWD.PACK GT SCH ×2 (05:15→17:38)
[2022-08-11] MEDS: BACLOFEN 10 MG TABLET GT SCH ×3 (05:15→17:38)
[2022-08-11] MEDS: OMEPRAZOLE 20 MG CAPSULE.DR GT SCH (05:15)
[2022-08-11] MEDS: OMEGA-3 FATTY ACIDS/FISH OIL CAPSULE GT SCH ×2 (05:15→17:38)
[2022-08-11] MEDS: MIDODRINE HCL 5 MG TABLET GT SCH ×3 (05:16→21:24)
[2022-08-11] MEDS: PROTEIN SUPPLEMENT (PROSTAT) 30 ML LIQUID GT SCH ×3 (05:16→21:24)
[2022-08-11] MEDS: MEROPENEM 1 G in IV NORMAL SALINE 100 ML IV SCH ×3 (05:23→22:00)
[2022-08-11] MEDS: DEXTROSE 5% IV SCH ×2 (08:00→20:01)
[2022-08-11] MEDS: GENTAMICIN SULFATE IV SCH ×2 (08:00→20:01)
[2022-08-11] MEDS: ACETAMINOPHEN 650 MG/20.3 ML LIQUID UDC GT SCH ×2 (08:30→20:30)
[2022-08-11] MEDS: HYDROGEN PEROXIDE 3% 118 ML BOTTLE TP SCH ×2 (09:00→19:09)
[2022-08-11] MEDS: SODIUM HYPOCHLORITE 0.125% (QUARTER STRENGTH) 473 ML BOTTLE TP SCH ×4 (09:00→21:24)
[2022-08-11] MEDS: ACIDOPHILUS/BULGARICUS CHEW TAB GT SCH ×2 (09:00→21:21)
[2022-08-11] MEDS: APIXABAN 5 MG TABLET GT SCH ×2 (09:00→21:21)
[2022-08-11] MEDS: REMEDY ESSENTIAL ZINC PASTE 113 GM TP SCH ×3 (09:00→21:24)
[2022-08-11] MEDS: SERTRALINE 25MG TABLET GT SCH (12:00)
[2022-08-11] MEDS: MULTIVIT, IRON, MIN NO. 8, FA TABLET GT SCH (21:23)
[2022-08-11] MEDS: ASCORBIC ACID 500 MG TABLET GT SCH (21:23)
[2022-08-11] MEDS: SIMVASTATIN 10 MG TABLET GT SCH (21:24)
[2022-08-11] MEDS: ESTROGENS,CONJU VAGINAL CREAM 42.5 GM TUBE VG SCH (21:24)
[2022-08-11] MEDS: TEMAZEPAM 7.5 MG CAPSULE GT PRN (22:00)
[2022-08-12] VITALS (13 sets, daily range): TEMP 98–98.4; O2SAT 98–99
[2022-08-12] MEDS: IPRATROPIUM BROMIDE 0.5 MG/2.5 ML NEBU NEB SCH ×7 (00:06→23:01)
[2022-08-12] MEDS: ALBUTEROL SULFATE 2.5 MG/3 ML NEBU NEB SCH ×7 (00:07→23:01)
[2022-08-12] MEDS: BACLOFEN 10 MG TABLET GT SCH ×4 (00:42→17:10)
[2022-08-12] MEDS: MEROPENEM 1 G in IV NORMAL SALINE 100 ML IV SCH ×3 (05:30→21:57)
[2022-08-12] MEDS: ARGININE/GLUTAMINE/CALCIUM BMB 1 EACH POWD.PACK GT SCH ×2 (05:49→17:10)
[2022-08-12] MEDS: OMEGA-3 FATTY ACIDS/FISH OIL CAPSULE GT SCH ×2 (05:49→17:10)
[2022-08-12] MEDS: MIDODRINE HCL 5 MG TABLET GT SCH ×3 (05:50→21:18)
[2022-08-12] MEDS: OMEPRAZOLE 20 MG CAPSULE.DR GT SCH (05:50)
[2022-08-12] MEDS: PROTEIN SUPPLEMENT (PROSTAT) 30 ML LIQUID GT SCH ×3 (05:50→21:17)
[2022-08-12] MEDS: HYDROGEN PEROXIDE 3% 118 ML BOTTLE TP SCH ×2 (07:39→21:29)
[2022-08-12] MEDS: GENTAMICIN SULFATE IV SCH ×2 (08:30→20:00)
[2022-08-12] MEDS: DEXTROSE 5% IV SCH ×2 (08:30→20:00)
[2022-08-12] MEDS: ACETAMINOPHEN 650 MG/20.3 ML LIQUID UDC GT SCH ×2 (08:38→20:30)
[2022-08-12] MEDS: ACIDOPHILUS/BULGARICUS CHEW TAB GT SCH ×2 (08:41→21:16)
[2022-08-12] MEDS: APIXABAN 5 MG TABLET GT SCH ×2 (08:41→21:47)
[2022-08-12] MEDS: SODIUM HYPOCHLORITE 0.125% (QUARTER STRENGTH) 473 ML BOTTLE TP SCH ×4 (08:43→21:17)
[2022-08-12] MEDS: REMEDY ESSENTIAL ZINC PASTE 113 GM TP SCH ×3 (08:43→21:17)
[2022-08-12] MEDS: SERTRALINE 25MG TABLET GT SCH (12:58)
[2022-08-12] MEDS: GLUCERNA 1.2 1000ML LIQUID GT PRN (13:11)
[2022-08-12] MEDS: ESTROGENS,CONJU VAGINAL CREAM 42.5 GM TUBE VG SCH (21:17)
[2022-08-12] MEDS: MULTIVIT, IRON, MIN NO. 8, FA TABLET GT SCH (21:17)
[2022-08-12] MEDS: SIMVASTATIN 10 MG TABLET GT SCH (21:17)
[2022-08-12] MEDS: ASCORBIC ACID 500 MG TABLET GT SCH (21:17)
[2022-08-13] VITALS (14 sets, daily range): TEMP 98.3–98.8; O2SAT 98–99
[2022-08-13] MEDS: BACLOFEN 10 MG TABLET GT SCH ×4 (00:23→17:04)
[2022-08-13] MEDS: ALBUTEROL SULFATE 2.5 MG/3 ML NEBU NEB SCH ×6 (03:07→23:03)
[2022-08-13] MEDS: IPRATROPIUM BROMIDE 0.5 MG/2.5 ML NEBU NEB SCH ×6 (03:07→23:03)
[2022-08-13] MEDS: OMEPRAZOLE 20 MG CAPSULE.DR GT SCH (05:51)
[2022-08-13] MEDS: ARGININE/GLUTAMINE/CALCIUM BMB 1 EACH POWD.PACK GT SCH ×2 (05:51→17:04)
[2022-08-13] MEDS: OMEGA-3 FATTY ACIDS/FISH OIL CAPSULE GT SCH ×2 (05:51→17:04)
[2022-08-13] MEDS: MIDODRINE HCL 5 MG TABLET GT SCH ×3 (05:52→21:32)
[2022-08-13] MEDS: PROTEIN SUPPLEMENT (PROSTAT) 30 ML LIQUID GT SCH ×3 (05:52→21:27)
[2022-08-13] MEDS: MEROPENEM 1 G in IV NORMAL SALINE 100 ML IV SCH ×3 (05:53→22:00)
[2022-08-13] MEDS: HYDROGEN PEROXIDE 3% 118 ML BOTTLE TP SCH ×2 (07:40→20:55)
[2022-08-13] MEDS: DEXTROSE 5% IV SCH ×2 (08:00→20:00)
[2022-08-13] MEDS: GENTAMICIN SULFATE IV SCH ×2 (08:00→20:00)
[2022-08-13] MEDS: ACETAMINOPHEN 650 MG/20.3 ML LIQUID UDC GT SCH ×2 (08:59→21:28)
[2022-08-13] MEDS: REMEDY ESSENTIAL ZINC PASTE 113 GM TP SCH ×3 (09:00→21:27)
[2022-08-13] MEDS: APIXABAN 5 MG TABLET GT SCH ×2 (09:00→21:35)
[2022-08-13] MEDS: ACIDOPHILUS/BULGARICUS CHEW TAB GT SCH ×2 (09:00→21:27)
[2022-08-13] MEDS: SODIUM HYPOCHLORITE 0.125% (QUARTER STRENGTH) 473 ML BOTTLE TP SCH ×4 (09:00→21:27)
[2022-08-13] MEDS: SERTRALINE 25MG TABLET GT SCH (12:50)
[2022-08-13] MEDS: HYDROCODONE/APAP 10-325 MG TABLET GT PRN (19:59)
[2022-08-13] MEDS: ESTROGENS,CONJU VAGINAL CREAM 42.5 GM TUBE VG SCH (21:27)
[2022-08-13] MEDS: MULTIVIT, IRON, MIN NO. 8, FA TABLET GT SCH (21:27)
[2022-08-13] MEDS: SIMVASTATIN 10 MG TABLET GT SCH (21:29)
[2022-08-13] MEDS: ASCORBIC ACID 500 MG TABLET GT SCH (21:33)
[2022-08-14] VITALS (14 sets, daily range): TEMP 97.4–98; O2SAT 98–99
[2022-08-14] MEDS: BACLOFEN 10 MG TABLET GT SCH ×4 (00:44→17:24)
[2022-08-14] MEDS: IPRATROPIUM BROMIDE 0.5 MG/2.5 ML NEBU NEB SCH ×6 (03:05→23:00)
[2022-08-14] MEDS: ALBUTEROL SULFATE 2.5 MG/3 ML NEBU NEB SCH ×6 (03:05→23:00)
[2022-08-14] MEDS: OMEPRAZOLE 20 MG CAPSULE.DR GT SCH (05:49)
[2022-08-14] MEDS: ARGININE/GLUTAMINE/CALCIUM BMB 1 EACH POWD.PACK GT SCH ×2 (05:49→17:24)
[2022-08-14] MEDS: OMEGA-3 FATTY ACIDS/FISH OIL CAPSULE GT SCH ×2 (05:50→17:24)
[2022-08-14] MEDS: PROTEIN SUPPLEMENT (PROSTAT) 30 ML LIQUID GT SCH ×3 (05:50→22:07)
[2022-08-14] MEDS: MEROPENEM 1 G in IV NORMAL SALINE 100 ML IV SCH ×3 (06:00→22:00)
[2022-08-14] MEDS: MIDODRINE HCL 5 MG TABLET GT SCH ×3 (06:10→22:06)
[2022-08-14] MEDS: HYDROCODONE/APAP 10-325 MG TABLET GT PRN ×3 (06:15→22:15)
[2022-08-14] MEDS: GENTAMICIN SULFATE IV SCH ×2 (08:00→20:00)
[2022-08-14] MEDS: DEXTROSE 5% IV SCH ×2 (08:00→20:00)
[2022-08-14] MEDS: SODIUM HYPOCHLORITE 0.125% (QUARTER STRENGTH) 473 ML BOTTLE TP SCH ×4 (09:00→21:00)
[2022-08-14] MEDS: REMEDY ESSENTIAL ZINC PASTE 113 GM TP SCH ×3 (09:00→21:00)
[2022-08-14] MEDS: HYDROGEN PEROXIDE 3% 118 ML BOTTLE TP SCH ×2 (09:00→21:20)
[2022-08-14] MEDS: APIXABAN 5 MG TABLET GT SCH ×2 (09:11→21:00)
[2022-08-14] MEDS: ACIDOPHILUS/BULGARICUS CHEW TAB GT SCH ×2 (09:12→21:00)
[2022-08-14] MEDS: ACETAMINOPHEN 650 MG/20.3 ML LIQUID UDC GT SCH ×2 (09:13→20:30)
[2022-08-14] MEDS: SERTRALINE 25MG TABLET GT SCH (12:58)
[2022-08-14] MEDS: ASCORBIC ACID 500 MG TABLET GT SCH (21:00)
[2022-08-14] MEDS: ESTROGENS,CONJU VAGINAL CREAM 42.5 GM TUBE VG SCH (21:00)
[2022-08-14] MEDS: MULTIVIT, IRON, MIN NO. 8, FA TABLET GT SCH (21:00)
[2022-08-14] MEDS: SIMVASTATIN 10 MG TABLET GT SCH (21:00)
[2022-08-15] VITALS (11 sets, daily range): TEMP 98.1–98.2; O2SAT 97–99
[2022-08-15] MEDS: ALBUTEROL SULFATE 2.5 MG/3 ML NEBU NEB SCH ×6 (01:00→20:10)
[2022-08-15] MEDS: IPRATROPIUM BROMIDE 0.5 MG/2.5 ML NEBU NEB SCH ×6 (01:00→20:10)
[2022-08-15] MEDS: PROTEIN SUPPLEMENT (PROSTAT) 30 ML LIQUID GT SCH ×3 (05:11→21:05)
[2022-08-15] MEDS: MIDODRINE HCL 5 MG TABLET GT SCH ×3 (05:11→21:05)
[2022-08-15] MEDS: OMEGA-3 FATTY ACIDS/FISH OIL CAPSULE GT SCH ×2 (05:11→17:16)
[2022-08-15] MEDS: OMEPRAZOLE 20 MG CAPSULE.DR GT SCH (05:11)
[2022-08-15] MEDS: BACLOFEN 10 MG TABLET GT SCH ×4 (05:11→17:16)
[2022-08-15] MEDS: ARGININE/GLUTAMINE/CALCIUM BMB 1 EACH POWD.PACK GT SCH ×2 (05:11→17:16)
[2022-08-15] MEDS: MEROPENEM 1 G in IV NORMAL SALINE 100 ML IV SCH ×3 (05:52→22:55)
[2022-08-15 06:56] LABS: BASOPHILS # (AUTO) 0.1 K/UL (0.0-0.2); BASOPHILS % (AUTO) 0.6 % (0.0-2.0); EOSINOPHILS # (AUTO) 0.4 K/uL (0.0-0.7); EOSINOPHILS % (AUTO) 4.1 % (0.0-7.0); HEMOGLOBIN 9.3 g/dL (10.9-14.3); LYMPHOCYTES # (AUTO) 2.2 K/uL (0.8-4.8); LYMPHOCYTES % (AUTO) 22.3 % (20.5-51.5); MEAN CORPUSCULAR HEMOGLOBIN 26.3 uug (24.7-32.8); MEAN CORPUSCULAR HGB CONC 31 g/dL (32.3-35.6); MEAN CORPUSCULAR VOLUME 85.2 fL (75.5-95.3); MONOCYTES # (AUTO) 0.8 K/uL (0.1-1.30); MONOCYTES % (AUTO) 8.1 % (0.0-11.0); NEUTROPHILS # (AUTO) 6.3 K/uL (1.8-8.9); NEUTROPHILS % (AUTO) 64.9 % (38.5-71.5); PLATELET COUNT (AUTO) 397 K/uL (179-408); RED BLOOD CELL COUNT(AUTO) 3.52 MIL/uL (3.63-4.92); RED CELL DISTRIBUTION WIDTH 19.8 % (12.3-17.7); WHITE BLOOD COUNT (AUTO) 9.7 K/uL (3.8-11.8)
[2022-08-15 07:24] LABS: ALBUMIN 2.2 g/dL (3.4-5.0); BILIRUBIN,TOTAL 0.5 mg/dL (0.2-1.0); C-REACTIVE PROTEIN 3.8 mg/dL (0.0-0.9); CALCIUM 9.3 mg/dL (8.5-10.1); CREATININE 0.6 mg/dL (0.6-1.3); POTASSIUM 3.8 mmol/L (3.5-5.1); TOTAL PROTEIN, SERUM 8.5 g/dL (6.4-8.2)
[2022-08-15 08:03] LABS: DIFFERENTIAL COMMENT 1
[2022-08-15] MEDS: DEXTROSE 5% IV SCH ×2 (08:11→20:41)
[2022-08-15] MEDS: GENTAMICIN SULFATE IV SCH ×2 (08:11→20:41)
[2022-08-15] MEDS: ACETAMINOPHEN 650 MG/20.3 ML LIQUID UDC GT SCH ×2 (09:01→20:41)
[2022-08-15] MEDS: ACIDOPHILUS/BULGARICUS CHEW TAB GT SCH ×2 (09:02→20:54)
[2022-08-15] MEDS: SODIUM HYPOCHLORITE 0.125% (QUARTER STRENGTH) 473 ML BOTTLE TP SCH ×4 (09:02→20:55)
[2022-08-15] MEDS: APIXABAN 5 MG TABLET GT SCH ×2 (09:02→21:15)
[2022-08-15] MEDS: REMEDY ESSENTIAL ZINC PASTE 113 GM TP SCH ×3 (09:02→20:55)
[2022-08-15] MEDS: HYDROGEN PEROXIDE 3% 118 ML BOTTLE TP SCH ×2 (09:36→21:00)
[2022-08-15 10:47] LABS: ERYTHROCYTE SEDIMENTATION RATE 135 MM/HR (0-20)
[2022-08-15] MEDS: SERTRALINE 25MG TABLET GT SCH (12:30)
[2022-08-15] MEDS: SIMVASTATIN 10 MG TABLET GT SCH (20:54)
[2022-08-15] MEDS: MULTIVIT, IRON, MIN NO. 8, FA TABLET GT SCH (20:54)
[2022-08-15] MEDS: ASCORBIC ACID 500 MG TABLET GT SCH (20:54)
[2022-08-15] MEDS: ESTROGENS,CONJU VAGINAL CREAM 42.5 GM TUBE VG SCH (20:55)
[2022-08-15] MEDS: HYDROCODONE/APAP 10-325 MG TABLET GT PRN (23:16)
[2022-08-16] VITALS (12 sets, daily range): TEMP 97.6–98.2; O2SAT 97–99
[2022-08-16] MEDS: BACLOFEN 10 MG TABLET GT SCH ×4 (00:34→17:10)
[2022-08-16] MEDS: ALBUTEROL SULFATE 2.5 MG/3 ML NEBU NEB SCH ×5 (03:30→20:40)
[2022-08-16] MEDS: IPRATROPIUM BROMIDE 0.5 MG/2.5 ML NEBU NEB SCH ×5 (03:30→20:40)
[2022-08-16] MEDS: HYDROCODONE/APAP 10-325 MG TABLET GT PRN ×5 (03:46→20:55)
[2022-08-16] MEDS: ARGININE/GLUTAMINE/CALCIUM BMB 1 EACH POWD.PACK GT SCH ×2 (05:04→17:10)
[2022-08-16] MEDS: OMEGA-3 FATTY ACIDS/FISH OIL CAPSULE GT SCH ×2 (05:04→17:03)
[2022-08-16] MEDS: OMEPRAZOLE 20 MG CAPSULE.DR GT SCH (05:05)
[2022-08-16] MEDS: MIDODRINE HCL 5 MG TABLET GT SCH ×3 (05:05→22:20)
[2022-08-16] MEDS: PROTEIN SUPPLEMENT (PROSTAT) 30 ML LIQUID GT SCH ×3 (05:05→22:20)
[2022-08-16] MEDS: MEROPENEM 1 G in IV NORMAL SALINE 100 ML IV SCH ×3 (05:36→22:00)
[2022-08-16] MEDS: ACETAMINOPHEN 650 MG/20.3 ML LIQUID UDC GT SCH ×2 (08:30→20:48)
[2022-08-16] MEDS: DEXTROSE 5% IV SCH ×2 (08:52→19:58)
[2022-08-16] MEDS: GENTAMICIN SULFATE IV SCH ×2 (08:52→19:58)
[2022-08-16] MEDS: SODIUM HYPOCHLORITE 0.125% (QUARTER STRENGTH) 473 ML BOTTLE TP SCH ×4 (09:00→20:56)
[2022-08-16] MEDS: REMEDY ESSENTIAL ZINC PASTE 113 GM TP SCH ×3 (09:00→20:50)
[2022-08-16] MEDS: HYDROGEN PEROXIDE 3% 118 ML BOTTLE TP SCH ×2 (09:20→21:29)
[2022-08-16] MEDS: APIXABAN 5 MG TABLET GT SCH ×2 (09:59→21:00)
[2022-08-16] MEDS: ACIDOPHILUS/BULGARICUS CHEW TAB GT SCH ×2 (09:59→20:49)
[2022-08-16] MEDS: SERTRALINE 25MG TABLET GT SCH (12:00)
[2022-08-16] MEDS: GLUCERNA 1.2 1000ML LIQUID GT PRN (14:19)
[2022-08-16] MEDS: ASCORBIC ACID 500 MG TABLET GT SCH (20:49)
[2022-08-16] MEDS: SIMVASTATIN 10 MG TABLET GT SCH (20:49)
[2022-08-16] MEDS: MULTIVIT, IRON, MIN NO. 8, FA TABLET GT SCH (20:49)
[2022-08-16] MEDS: ESTROGENS,CONJU VAGINAL CREAM 42.5 GM TUBE VG SCH (20:50)
[2022-08-17] VITALS (18 sets, daily range): TEMP 97.5–98.5; O2SAT 98–99
[2022-08-17] MEDS: ALBUTEROL SULFATE 2.5 MG/3 ML NEBU NEB SCH ×6 (00:14→21:42)
[2022-08-17] MEDS: IPRATROPIUM BROMIDE 0.5 MG/2.5 ML NEBU NEB SCH ×6 (00:14→21:42)
[2022-08-17] MEDS: BACLOFEN 10 MG TABLET GT SCH ×4 (00:21→18:01)
[2022-08-17] MEDS: HYDROCODONE/APAP 10-325 MG TABLET GT PRN (04:00)
[2022-08-17] MEDS: MEROPENEM 1 G in IV NORMAL SALINE 100 ML IV SCH ×3 (05:47→22:46)
[2022-08-17] MEDS: ARGININE/GLUTAMINE/CALCIUM BMB 1 EACH POWD.PACK GT SCH ×2 (06:15→18:01)
[2022-08-17] MEDS: OMEGA-3 FATTY ACIDS/FISH OIL CAPSULE GT SCH ×2 (06:15→18:01)
[2022-08-17] MEDS: OMEPRAZOLE 20 MG CAPSULE.DR GT SCH (06:15)
[2022-08-17] MEDS: PROTEIN SUPPLEMENT (PROSTAT) 30 ML LIQUID GT SCH ×3 (06:16→21:21)
[2022-08-17] MEDS: MIDODRINE HCL 5 MG TABLET GT SCH ×3 (06:16→21:21)
[2022-08-17] MEDS: GENTAMICIN SULFATE IV SCH ×2 (08:00→20:34)
[2022-08-17] MEDS: DEXTROSE 5% IV SCH ×2 (08:00→20:34)
[2022-08-17] MEDS: HYDROGEN PEROXIDE 3% 118 ML BOTTLE TP SCH ×2 (08:38→21:42)
[2022-08-17] MEDS: ACETAMINOPHEN 650 MG/20.3 ML LIQUID UDC GT SCH ×2 (08:55→21:17)
[2022-08-17] MEDS: APIXABAN 5 MG TABLET GT SCH ×2 (08:55→21:20)
[2022-08-17] MEDS: ACIDOPHILUS/BULGARICUS CHEW TAB GT SCH ×2 (08:55→21:20)
[2022-08-17] MEDS: SODIUM HYPOCHLORITE 0.125% (QUARTER STRENGTH) 473 ML BOTTLE TP SCH ×4 (08:57→21:20)
[2022-08-17] MEDS: REMEDY ESSENTIAL ZINC PASTE 113 GM TP SCH ×3 (08:58→21:20)
[2022-08-17] MEDS: SERTRALINE 25MG TABLET GT SCH (12:00)
[2022-08-17] MEDS: ASCORBIC ACID 500 MG TABLET GT SCH (21:20)
[2022-08-17] MEDS: SIMVASTATIN 10 MG TABLET GT SCH (21:20)
[2022-08-17] MEDS: ESTROGENS,CONJU VAGINAL CREAM 42.5 GM TUBE VG SCH (21:20)
[2022-08-17] MEDS: MULTIVIT, IRON, MIN NO. 8, FA TABLET GT SCH (21:20)
[2022-08-18] VITALS (13 sets, daily range): TEMP 97.8; O2SAT 96–99
[2022-08-18] MEDS: IPRATROPIUM BROMIDE 0.5 MG/2.5 ML NEBU NEB SCH ×7 (00:26→23:50)
[2022-08-18] MEDS: ALBUTEROL SULFATE 2.5 MG/3 ML NEBU NEB SCH ×7 (00:26→23:50)
[2022-08-18] MEDS: HYDROCODONE/APAP 10-325 MG TABLET GT PRN (04:00)
[2022-08-18] MEDS: ARGININE/GLUTAMINE/CALCIUM BMB 1 EACH POWD.PACK GT SCH ×2 (05:18→18:08)
[2022-08-18] MEDS: OMEGA-3 FATTY ACIDS/FISH OIL CAPSULE GT SCH ×2 (05:18→18:08)
[2022-08-18] MEDS: OMEPRAZOLE 20 MG CAPSULE.DR GT SCH (05:18)
[2022-08-18] MEDS: BACLOFEN 10 MG TABLET GT SCH ×5 (05:18→23:20)
[2022-08-18] MEDS: PROTEIN SUPPLEMENT (PROSTAT) 30 ML LIQUID GT SCH ×3 (05:19→21:33)
[2022-08-18] MEDS: MIDODRINE HCL 5 MG TABLET GT SCH ×3 (05:19→21:32)
[2022-08-18] MEDS: MEROPENEM 1 G in IV NORMAL SALINE 100 ML IV SCH ×3 (05:26→21:30)
[2022-08-18] MEDS: GENTAMICIN SULFATE IV SCH ×2 (08:52→19:48)
[2022-08-18] MEDS: DEXTROSE 5% IV SCH ×2 (08:52→19:48)
[2022-08-18] MEDS: ACIDOPHILUS/BULGARICUS CHEW TAB GT SCH ×2 (09:09→20:47)
[2022-08-18] MEDS: ACETAMINOPHEN 650 MG/20.3 ML LIQUID UDC GT SCH ×2 (09:09→20:47)
[2022-08-18] MEDS: SODIUM HYPOCHLORITE 0.125% (QUARTER STRENGTH) 473 ML BOTTLE TP SCH ×4 (09:09→20:47)
[2022-08-18] MEDS: APIXABAN 5 MG TABLET GT SCH ×2 (09:09→21:32)
[2022-08-18] MEDS: REMEDY ESSENTIAL ZINC PASTE 113 GM TP SCH ×3 (09:10→20:48)
[2022-08-18] MEDS: HYDROGEN PEROXIDE 3% 118 ML BOTTLE TP SCH ×2 (09:29→19:13)
[2022-08-18] MEDS: SERTRALINE 25MG TABLET GT SCH (12:59)
[2022-08-18] MEDS: ASCORBIC ACID 500 MG TABLET GT SCH (20:47)
[2022-08-18] MEDS: SIMVASTATIN 10 MG TABLET GT SCH (20:47)
[2022-08-18] MEDS: MULTIVIT, IRON, MIN NO. 8, FA TABLET GT SCH (20:47)
[2022-08-18] MEDS: ESTROGENS,CONJU VAGINAL CREAM 42.5 GM TUBE VG SCH (20:48)
[2022-08-18] MEDS: TEMAZEPAM 7.5 MG CAPSULE GT PRN (23:00)
[2022-08-18] MEDS: GLUCERNA 1.2 1000ML LIQUID GT PRN (23:21)
[2022-08-19] VITALS (14 sets, daily range): TEMP 97.3–97.8; O2SAT 96–99
[2022-08-19] MEDS: ALBUTEROL SULFATE 2.5 MG/3 ML NEBU NEB SCH ×6 (03:39→23:50)
[2022-08-19] MEDS: IPRATROPIUM BROMIDE 0.5 MG/2.5 ML NEBU NEB SCH ×6 (03:39→23:50)
[2022-08-19] MEDS: HYDROCODONE/APAP 10-325 MG TABLET GT PRN ×2 (04:30→16:15)
[2022-08-19] MEDS: PROTEIN SUPPLEMENT (PROSTAT) 30 ML LIQUID GT SCH ×3 (05:14→21:56)
[2022-08-19] MEDS: OMEPRAZOLE 20 MG CAPSULE.DR GT SCH (05:14)
[2022-08-19] MEDS: ARGININE/GLUTAMINE/CALCIUM BMB 1 EACH POWD.PACK GT SCH ×2 (05:14→18:09)
[2022-08-19] MEDS: BACLOFEN 10 MG TABLET GT SCH ×3 (05:14→18:09)
[2022-08-19] MEDS: OMEGA-3 FATTY ACIDS/FISH OIL CAPSULE GT SCH ×2 (05:14→18:09)
[2022-08-19] MEDS: MIDODRINE HCL 5 MG TABLET GT SCH ×3 (05:14→21:56)
[2022-08-19] MEDS: MEROPENEM 1 G in IV NORMAL SALINE 100 ML IV SCH ×3 (05:49→22:00)
[2022-08-19] MEDS: GENTAMICIN SULFATE IV SCH ×2 (08:47→20:00)
[2022-08-19] MEDS: DEXTROSE 5% IV SCH ×2 (08:47→20:00)
[2022-08-19] MEDS: ACETAMINOPHEN 650 MG/20.3 ML LIQUID UDC GT SCH ×2 (09:05→20:58)
[2022-08-19] MEDS: APIXABAN 5 MG TABLET GT SCH ×2 (09:06→21:57)
[2022-08-19] MEDS: ACIDOPHILUS/BULGARICUS CHEW TAB GT SCH ×2 (09:07→20:58)
[2022-08-19] MEDS: SODIUM HYPOCHLORITE 0.125% (QUARTER STRENGTH) 473 ML BOTTLE TP SCH ×3 (09:07)
[2022-08-19] MEDS: REMEDY ESSENTIAL ZINC PASTE 113 GM TP SCH ×2 (09:07)
[2022-08-19] MEDS: HYDROGEN PEROXIDE 3% 118 ML BOTTLE TP SCH ×2 (09:25→19:17)
[2022-08-19] MEDS: SERTRALINE 25MG TABLET GT SCH (12:00)
[2022-08-19] MEDS: MULTIVIT, IRON, MIN NO. 8, FA TABLET GT SCH (20:58)
[2022-08-19] MEDS: ASCORBIC ACID 500 MG TABLET GT SCH (20:58)
[2022-08-19] MEDS: ESTROGENS,CONJU VAGINAL CREAM 42.5 GM TUBE VG SCH (20:58)
[2022-08-19] MEDS: SIMVASTATIN 10 MG TABLET GT SCH (20:58)
[2022-08-20] VITALS (14 sets, daily range): TEMP 97.7–98; O2SAT 97–99
[2022-08-20] MEDS: BACLOFEN 10 MG TABLET GT SCH ×4 (00:39→17:42)
[2022-08-20] MEDS: ALBUTEROL SULFATE 2.5 MG/3 ML NEBU NEB SCH ×6 (03:03→23:32)
[2022-08-20] MEDS: IPRATROPIUM BROMIDE 0.5 MG/2.5 ML NEBU NEB SCH ×6 (03:03→23:32)
[2022-08-20] MEDS: GLUCERNA 1.2 1000ML LIQUID GT PRN (03:20)
[2022-08-20] MEDS: HYDROCODONE/APAP 10-325 MG TABLET GT PRN ×2 (03:30→08:59)
[2022-08-20] MEDS: ARGININE/GLUTAMINE/CALCIUM BMB 1 EACH POWD.PACK GT SCH ×2 (05:13→17:42)
[2022-08-20] MEDS: OMEPRAZOLE 20 MG CAPSULE.DR GT SCH (05:13)
[2022-08-20] MEDS: OMEGA-3 FATTY ACIDS/FISH OIL CAPSULE GT SCH ×2 (05:13→17:41)
[2022-08-20] MEDS: MIDODRINE HCL 5 MG TABLET GT SCH ×3 (05:14→21:46)
[2022-08-20] MEDS: PROTEIN SUPPLEMENT (PROSTAT) 30 ML LIQUID GT SCH ×3 (05:14→21:46)
[2022-08-20] MEDS: MEROPENEM 1 G in IV NORMAL SALINE 100 ML IV SCH ×3 (06:00→22:00)
[2022-08-20] MEDS: DEXTROSE 5% IV SCH ×2 (08:25→20:00)
[2022-08-20] MEDS: GENTAMICIN SULFATE IV SCH ×2 (08:25→20:00)
[2022-08-20] MEDS: ACETAMINOPHEN 650 MG/20.3 ML LIQUID UDC GT SCH ×2 (08:44→20:30)
[2022-08-20] MEDS: ACIDOPHILUS/BULGARICUS CHEW TAB GT SCH ×2 (08:46→21:45)
[2022-08-20] MEDS: APIXABAN 5 MG TABLET GT SCH ×2 (08:46→21:00)
[2022-08-20] MEDS: REMEDY ESSENTIAL ZINC PASTE 113 GM TP SCH (08:48)
[2022-08-20] MEDS: SODIUM HYPOCHLORITE 0.125% (QUARTER STRENGTH) 473 ML BOTTLE TP SCH ×2 (08:48)
[2022-08-20] MEDS: HYDROGEN PEROXIDE 3% 118 ML BOTTLE TP SCH ×2 (10:20→19:13)
[2022-08-20] MEDS: SERTRALINE 25MG TABLET GT SCH (12:00)
[2022-08-20] MEDS: ASCORBIC ACID 500 MG TABLET GT SCH (21:45)
[2022-08-20] MEDS: MULTIVIT, IRON, MIN NO. 8, FA TABLET GT SCH (21:45)
[2022-08-20] MEDS: ESTROGENS,CONJU VAGINAL CREAM 42.5 GM TUBE VG SCH (21:45)
[2022-08-20] MEDS: SIMVASTATIN 10 MG TABLET GT SCH (21:45)
[2022-08-20] MEDS: TEMAZEPAM 7.5 MG CAPSULE GT PRN (21:46)
[2022-08-21] VITALS (14 sets, daily range): TEMP 97.7–98.9; O2SAT 97–99
[2022-08-21] MEDS: BACLOFEN 10 MG TABLET GT SCH ×4 (00:07→18:01)
[2022-08-21] MEDS: ALBUTEROL SULFATE 2.5 MG/3 ML NEBU NEB SCH ×6 (03:12→23:45)
[2022-08-21] MEDS: IPRATROPIUM BROMIDE 0.5 MG/2.5 ML NEBU NEB SCH ×6 (03:12→23:45)
[2022-08-21] MEDS: HYDROCODONE/APAP 10-325 MG TABLET GT PRN (03:45)
[2022-08-21] MEDS: OMEGA-3 FATTY ACIDS/FISH OIL CAPSULE GT SCH ×2 (05:12→18:01)
[2022-08-21] MEDS: OMEPRAZOLE 20 MG CAPSULE.DR GT SCH (05:12)
[2022-08-21] MEDS: MIDODRINE HCL 5 MG TABLET GT SCH ×3 (05:12→22:08)
[2022-08-21] MEDS: ARGININE/GLUTAMINE/CALCIUM BMB 1 EACH POWD.PACK GT SCH ×2 (05:12→18:01)
[2022-08-21] MEDS: PROTEIN SUPPLEMENT (PROSTAT) 30 ML LIQUID GT SCH ×3 (05:12→22:08)
[2022-08-21] MEDS: MEROPENEM 1 G in IV NORMAL SALINE 100 ML IV SCH ×3 (06:04→22:41)
[2022-08-21] MEDS: SODIUM HYPOCHLORITE 0.125% (QUARTER STRENGTH) 473 ML BOTTLE TP SCH ×2 (08:29)
[2022-08-21] MEDS: ACIDOPHILUS/BULGARICUS CHEW TAB GT SCH ×2 (08:29→20:42)
[2022-08-21] MEDS: ACETAMINOPHEN 650 MG/20.3 ML LIQUID UDC GT SCH ×2 (08:29→20:34)
[2022-08-21] MEDS: REMEDY ESSENTIAL ZINC PASTE 113 GM TP SCH (08:29)
[2022-08-21] MEDS: APIXABAN 5 MG TABLET GT SCH ×2 (08:32→20:42)
[2022-08-21] MEDS: GENTAMICIN SULFATE IV SCH ×2 (08:34→21:00)
[2022-08-21] MEDS: DEXTROSE 5% IV SCH ×2 (08:34→21:00)
[2022-08-21] MEDS: HYDROGEN PEROXIDE 3% 118 ML BOTTLE TP SCH ×2 (09:07→19:13)
[2022-08-21] MEDS: SERTRALINE 25MG TABLET GT SCH (12:00)
[2022-08-21] MEDS: GLUCERNA 1.2 1000ML LIQUID GT PRN (18:04)
[2022-08-21] MEDS: ASCORBIC ACID 500 MG TABLET GT SCH (20:42)
[2022-08-21] MEDS: ESTROGENS,CONJU VAGINAL CREAM 42.5 GM TUBE VG SCH (20:42)
[2022-08-21] MEDS: MULTIVIT, IRON, MIN NO. 8, FA TABLET GT SCH (20:42)
[2022-08-21] MEDS: SIMVASTATIN 10 MG TABLET GT SCH (20:42)
[2022-08-22] VITALS (14 sets, daily range): TEMP 98.3–98.6; O2SAT 97–99
[2022-08-22] MEDS: BACLOFEN 10 MG TABLET GT SCH ×4 (00:14→17:33)
[2022-08-22] MEDS: ALBUTEROL SULFATE 2.5 MG/3 ML NEBU NEB SCH ×6 (04:10→23:28)
[2022-08-22] MEDS: IPRATROPIUM BROMIDE 0.5 MG/2.5 ML NEBU NEB SCH ×6 (04:10→23:28)
[2022-08-22] MEDS: OMEGA-3 FATTY ACIDS/FISH OIL CAPSULE GT SCH ×2 (05:07→17:33)
[2022-08-22] MEDS: PROTEIN SUPPLEMENT (PROSTAT) 30 ML LIQUID GT SCH ×3 (05:08→21:37)
[2022-08-22] MEDS: MIDODRINE HCL 5 MG TABLET GT SCH ×3 (05:08→21:36)
[2022-08-22] MEDS: OMEPRAZOLE 20 MG CAPSULE.DR GT SCH (05:08)
[2022-08-22] MEDS: ARGININE/GLUTAMINE/CALCIUM BMB 1 EACH POWD.PACK GT SCH ×2 (05:08→17:33)
[2022-08-22] MEDS: MEROPENEM 1 G in IV NORMAL SALINE 100 ML IV SCH ×3 (06:20→22:20)
[2022-08-22 07:46] LABS: BASOPHILS # (AUTO) 0.1 K/UL (0.0-0.2); BASOPHILS % (AUTO) 0.6 % (0.0-2.0); EOSINOPHILS # (AUTO) 0.3 K/uL (0.0-0.7); EOSINOPHILS % (AUTO) 3.5 % (0.0-7.0); HEMATOCRIT 30.4 % (31.2-41.9); HEMOGLOBIN 9.6 g/dL (10.9-14.3); LYMPHOCYTES # (AUTO) 1.7 K/uL (0.8-4.8); LYMPHOCYTES % (AUTO) 19.9 % (20.5-51.5); MEAN CORPUSCULAR HEMOGLOBIN 26.2 uug (24.7-32.8); MEAN CORPUSCULAR HGB CONC 32 g/dL (32.3-35.6); MEAN CORPUSCULAR VOLUME 83.3 fL (75.5-95.3); MONOCYTES # (AUTO) 0.9 K/uL (0.1-1.30); NEUTROPHILS # (AUTO) 5.6 K/uL (1.8-8.9); PLATELET COUNT (AUTO) 242 K/uL (179-408); RED BLOOD CELL COUNT(AUTO) 3.65 MIL/uL (3.63-4.92); RED CELL DISTRIBUTION WIDTH 19.4 % (12.3-17.7); WHITE BLOOD COUNT (AUTO) 8.5 K/uL (3.8-11.8)
[2022-08-22 07:49] LABS: DIFFERENTIAL COMMENT 1
[2022-08-22] MEDS: DEXTROSE 5% IV SCH ×2 (08:00→20:07)
[2022-08-22] MEDS: GENTAMICIN SULFATE IV SCH ×2 (08:00→20:07)
[2022-08-22 08:02] LABS: ALBUMIN 2.1 g/dL (3.4-5.0); BILIRUBIN,TOTAL 0.6 mg/dL (0.2-1.0); C-REACTIVE PROTEIN 10.3 mg/dL (0.0-0.9); CALCIUM 9.4 mg/dL (8.5-10.1); CREATININE 0.7 mg/dL (0.6-1.3); POTASSIUM 3.7 mmol/L (3.5-5.1); TOTAL PROTEIN, SERUM 8.2 g/dL (6.4-8.2)
[2022-08-22 08:06] LABS: CREATININE 0.7 mg/dL (0.6-1.3)
[2022-08-22] MEDS: ACETAMINOPHEN 650 MG/20.3 ML LIQUID UDC GT SCH ×2 (08:47→21:29)
[2022-08-22] MEDS: ACIDOPHILUS/BULGARICUS CHEW TAB GT SCH ×2 (08:48→21:33)
[2022-08-22] MEDS: APIXABAN 5 MG TABLET GT SCH ×2 (08:48→21:00)
[2022-08-22] MEDS: SODIUM HYPOCHLORITE 0.125% (QUARTER STRENGTH) 473 ML BOTTLE TP SCH ×2 (08:49)
[2022-08-22] MEDS: REMEDY ESSENTIAL ZINC PASTE 113 GM TP SCH (08:49)
[2022-08-22 09:03] LABS: ERYTHROCYTE SEDIMENTATION RATE 114 MM/HR (0-20)
[2022-08-22] MEDS: HYDROGEN PEROXIDE 3% 118 ML BOTTLE TP SCH ×2 (09:24→19:14)
[2022-08-22] MEDS: SERTRALINE 25MG TABLET GT SCH (13:00)
[2022-08-22] MEDS: SODIUM HYPOCHLORITE 0.125% (QUARTER STRENGTH) 473 ML BOTTLE TP PRN ×2 (17:34)
[2022-08-22] MEDS: GLUCERNA 1.2 1000ML LIQUID GT PRN (17:34)
[2022-08-22] MEDS: TEMAZEPAM 7.5 MG CAPSULE GT PRN (21:35)
[2022-08-22] MEDS: ESTROGENS,CONJU VAGINAL CREAM 42.5 GM TUBE VG SCH (21:36)
[2022-08-22] MEDS: MULTIVIT, IRON, MIN NO. 8, FA TABLET GT SCH (21:36)
[2022-08-22] MEDS: SIMVASTATIN 10 MG TABLET GT SCH (21:36)
[2022-08-22] MEDS: ASCORBIC ACID 500 MG TABLET GT SCH (21:36)
[2022-08-23] VITALS (14 sets, daily range): TEMP 97.8; O2SAT 97–99
[2022-08-23] MEDS: BACLOFEN 10 MG TABLET GT SCH ×4 (00:47→17:54)
[2022-08-23] MEDS: IPRATROPIUM BROMIDE 0.5 MG/2.5 ML NEBU NEB SCH ×6 (04:27→23:32)
[2022-08-23] MEDS: ALBUTEROL SULFATE 2.5 MG/3 ML NEBU NEB SCH ×6 (04:27→23:32)
[2022-08-23] MEDS: HYDROCODONE/APAP 10-325 MG TABLET GT PRN (05:00)
[2022-08-23] MEDS: SODIUM HYPOCHLORITE 0.125% (QUARTER STRENGTH) 473 ML BOTTLE TP PRN ×2 (05:30)
[2022-08-23] MEDS: OMEGA-3 FATTY ACIDS/FISH OIL CAPSULE GT SCH ×2 (05:52→17:53)
[2022-08-23] MEDS: ARGININE/GLUTAMINE/CALCIUM BMB 1 EACH POWD.PACK GT SCH ×2 (05:52→17:54)
[2022-08-23] MEDS: OMEPRAZOLE 20 MG CAPSULE.DR GT SCH (05:52)
[2022-08-23] MEDS: PROTEIN SUPPLEMENT (PROSTAT) 30 ML LIQUID GT SCH ×3 (05:53→21:52)
[2022-08-23] MEDS: MIDODRINE HCL 5 MG TABLET GT SCH ×3 (05:53→21:51)
[2022-08-23] MEDS: MEROPENEM 1 G in IV NORMAL SALINE 100 ML IV SCH ×2 (06:44→14:19)
[2022-08-23] MEDS: DEXTROSE 5% IV SCH (08:31)
[2022-08-23] MEDS: GENTAMICIN SULFATE IV SCH (08:31)
[2022-08-23] MEDS: ACETAMINOPHEN 650 MG/20.3 ML LIQUID UDC GT SCH ×2 (08:32→20:30)
[2022-08-23] MEDS: ACIDOPHILUS/BULGARICUS CHEW TAB GT SCH ×2 (08:33→21:48)
[2022-08-23] MEDS: SODIUM HYPOCHLORITE 0.125% (QUARTER STRENGTH) 473 ML BOTTLE TP SCH ×2 (08:36→08:37)
[2022-08-23] MEDS: APIXABAN 5 MG TABLET GT SCH ×2 (08:36→21:48)
[2022-08-23] MEDS: REMEDY ESSENTIAL ZINC PASTE 113 GM TP SCH (08:37)
[2022-08-23] MEDS: HYDROGEN PEROXIDE 3% 118 ML BOTTLE TP SCH ×2 (08:37→19:10)
[2022-08-23] MEDS: SERTRALINE 25MG TABLET GT SCH (12:29)
[2022-08-23] MEDS: CEFIDEROCOL IV SCH (18:17)
[2022-08-23] MEDS: SULFAMETHE/TRIMETH 20 ML LIQUID UDC GT SCH (21:50)
[2022-08-23] MEDS: MULTIVIT, IRON, MIN NO. 8, FA TABLET GT SCH (21:50)
[2022-08-23] MEDS: ESTROGENS,CONJU VAGINAL CREAM 42.5 GM TUBE VG SCH (21:51)
[2022-08-23] MEDS: ASCORBIC ACID 500 MG TABLET GT SCH (21:51)
[2022-08-23] MEDS: SIMVASTATIN 10 MG TABLET GT SCH (21:51)
[2022-08-23] MEDS: TEMAZEPAM 7.5 MG CAPSULE GT PRN (22:00)
[2022-08-24] VITALS (14 sets, daily range): TEMP 97.4–98.3; O2SAT 96–99
[2022-08-24] MEDS: CEFIDEROCOL IV SCH ×3 (01:10→18:00)
[2022-08-24] MEDS: ALBUTEROL SULFATE 2.5 MG/3 ML NEBU NEB SCH ×6 (03:37→23:29)
[2022-08-24] MEDS: IPRATROPIUM BROMIDE 0.5 MG/2.5 ML NEBU NEB SCH ×6 (03:37→23:29)
[2022-08-24] MEDS: GLUCERNA 1.2 1000ML LIQUID GT PRN (05:00)
[2022-08-24] MEDS: OMEGA-3 FATTY ACIDS/FISH OIL CAPSULE GT SCH ×2 (05:26→18:04)
[2022-08-24] MEDS: OMEPRAZOLE 20 MG CAPSULE.DR GT SCH (05:26)
[2022-08-24] MEDS: BACLOFEN 10 MG TABLET GT SCH ×4 (05:26→18:08)
[2022-08-24] MEDS: ARGININE/GLUTAMINE/CALCIUM BMB 1 EACH POWD.PACK GT SCH ×2 (05:26→18:04)
[2022-08-24] MEDS: PROTEIN SUPPLEMENT (PROSTAT) 30 ML LIQUID GT SCH ×3 (05:27→21:59)
[2022-08-24] MEDS: MIDODRINE HCL 5 MG TABLET GT SCH ×3 (05:27→22:00)
[2022-08-24] MEDS: ACETAMINOPHEN 650 MG/20.3 ML LIQUID UDC GT SCH ×2 (09:08→20:30)
[2022-08-24] MEDS: ACIDOPHILUS/BULGARICUS CHEW TAB GT SCH ×2 (09:09→21:57)
[2022-08-24] MEDS: APIXABAN 5 MG TABLET GT SCH ×2 (09:09→21:57)
[2022-08-24] MEDS: SULFAMETHE/TRIMETH 20 ML LIQUID UDC GT SCH ×2 (09:10→21:57)
[2022-08-24] MEDS: REMEDY ESSENTIAL ZINC PASTE 113 GM TP SCH (09:11)
[2022-08-24] MEDS: SODIUM HYPOCHLORITE 0.125% (QUARTER STRENGTH) 473 ML BOTTLE TP SCH ×2 (09:11)
[2022-08-24] MEDS: HYDROGEN PEROXIDE 3% 118 ML BOTTLE TP SCH ×2 (09:33→19:20)
[2022-08-24] MEDS: SERTRALINE 25MG TABLET GT SCH (12:00)
[2022-08-24] MEDS: TEMAZEPAM 7.5 MG CAPSULE GT PRN (21:30)
[2022-08-24] MEDS: SIMVASTATIN 10 MG TABLET GT SCH (21:59)
[2022-08-24] MEDS: MULTIVIT, IRON, MIN NO. 8, FA TABLET GT SCH (21:59)
[2022-08-24] MEDS: ESTROGENS,CONJU VAGINAL CREAM 42.5 GM TUBE VG SCH (21:59)
[2022-08-24] MEDS: ASCORBIC ACID 500 MG TABLET GT SCH (21:59)
[2022-08-25] VITALS (13 sets, daily range): TEMP 97.9–98; O2SAT 97–99
[2022-08-25] MEDS: CEFIDEROCOL IV SCH ×3 (02:00→18:18)
[2022-08-25] MEDS: IPRATROPIUM BROMIDE 0.5 MG/2.5 ML NEBU NEB SCH ×6 (03:34→23:55)
[2022-08-25] MEDS: ALBUTEROL SULFATE 2.5 MG/3 ML NEBU NEB SCH ×6 (03:34→23:55)
[2022-08-25] MEDS: BACLOFEN 10 MG TABLET GT SCH ×4 (05:37→18:18)
[2022-08-25] MEDS: OMEPRAZOLE 20 MG CAPSULE.DR GT SCH (05:37)
[2022-08-25] MEDS: ARGININE/GLUTAMINE/CALCIUM BMB 1 EACH POWD.PACK GT SCH ×2 (05:37→18:18)
[2022-08-25] MEDS: OMEGA-3 FATTY ACIDS/FISH OIL CAPSULE GT SCH ×2 (05:37→18:18)
[2022-08-25] MEDS: PROTEIN SUPPLEMENT (PROSTAT) 30 ML LIQUID GT SCH ×3 (05:38→21:22)
[2022-08-25] MEDS: MIDODRINE HCL 5 MG TABLET GT SCH ×3 (05:38→21:22)
[2022-08-25] MEDS: ACETAMINOPHEN 650 MG/20.3 ML LIQUID UDC GT SCH ×2 (09:04→21:15)
[2022-08-25] MEDS: ACIDOPHILUS/BULGARICUS CHEW TAB GT SCH ×2 (09:04→21:17)
[2022-08-25] MEDS: SULFAMETHE/TRIMETH 20 ML LIQUID UDC GT SCH ×2 (09:04→21:18)
[2022-08-25] MEDS: APIXABAN 5 MG TABLET GT SCH ×2 (09:04→21:17)
[2022-08-25] MEDS: SODIUM HYPOCHLORITE 0.125% (QUARTER STRENGTH) 473 ML BOTTLE TP SCH ×2 (09:05)
[2022-08-25] MEDS: REMEDY ESSENTIAL ZINC PASTE 113 GM TP SCH (09:05)
[2022-08-25] MEDS: HYDROGEN PEROXIDE 3% 118 ML BOTTLE TP SCH ×2 (09:23→19:08)
[2022-08-25] MEDS: SERTRALINE 25MG TABLET GT SCH (12:28)
[2022-08-25] MEDS: SIMVASTATIN 10 MG TABLET GT SCH (21:18)
[2022-08-25] MEDS: ASCORBIC ACID 500 MG TABLET GT SCH (21:18)
[2022-08-25] MEDS: MULTIVIT, IRON, MIN NO. 8, FA TABLET GT SCH (21:18)
[2022-08-25] MEDS: ESTROGENS,CONJU VAGINAL CREAM 42.5 GM TUBE VG SCH (21:22)
[2022-08-26] VITALS (16 sets, daily range): TEMP 97.9–98.4; O2SAT 97–99
[2022-08-26] MEDS: CEFIDEROCOL IV SCH ×3 (02:00→17:47)
[2022-08-26] MEDS: IPRATROPIUM BROMIDE 0.5 MG/2.5 ML NEBU NEB SCH ×5 (03:15→18:32)
[2022-08-26] MEDS: ALBUTEROL SULFATE 2.5 MG/3 ML NEBU NEB SCH ×5 (03:15→18:32)
[2022-08-26] MEDS: OMEGA-3 FATTY ACIDS/FISH OIL CAPSULE GT SCH ×2 (05:55→17:49)
[2022-08-26] MEDS: MIDODRINE HCL 5 MG TABLET GT SCH ×3 (05:56→22:10)
[2022-08-26] MEDS: ARGININE/GLUTAMINE/CALCIUM BMB 1 EACH POWD.PACK GT SCH ×2 (05:56→17:48)
[2022-08-26] MEDS: OMEPRAZOLE 20 MG CAPSULE.DR GT SCH (05:56)
[2022-08-26] MEDS: BACLOFEN 10 MG TABLET GT SCH ×4 (05:56→17:48)
[2022-08-26] MEDS: PROTEIN SUPPLEMENT (PROSTAT) 30 ML LIQUID GT SCH ×3 (05:56→22:10)
[2022-08-26] MEDS: HYDROGEN PEROXIDE 3% 118 ML BOTTLE TP SCH ×4 (07:45→18:32)
[2022-08-26] MEDS: ACETAMINOPHEN 650 MG/20.3 ML LIQUID UDC GT SCH ×2 (09:05→20:30)
[2022-08-26] MEDS: ACIDOPHILUS/BULGARICUS CHEW TAB GT SCH ×2 (09:11→21:00)
[2022-08-26] MEDS: SULFAMETHE/TRIMETH 20 ML LIQUID UDC GT SCH ×2 (09:12→21:00)
[2022-08-26] MEDS: REMEDY ESSENTIAL ZINC PASTE 113 GM TP SCH (09:14)
[2022-08-26] MEDS: SODIUM HYPOCHLORITE 0.125% (QUARTER STRENGTH) 473 ML BOTTLE TP SCH ×2 (09:15)
[2022-08-26] MEDS: APIXABAN 5 MG TABLET GT SCH ×2 (09:29→21:16)
[2022-08-26] MEDS: SERTRALINE 25MG TABLET GT SCH (12:30)
[2022-08-26] MEDS: GLUCERNA 1.2 1000ML LIQUID GT PRN (19:30)
[2022-08-26] MEDS: ASCORBIC ACID 500 MG TABLET GT SCH (21:00)
[2022-08-26] MEDS: ESTROGENS,CONJU VAGINAL CREAM 42.5 GM TUBE VG SCH (21:00)
[2022-08-26] MEDS: SIMVASTATIN 10 MG TABLET GT SCH (21:00)
[2022-08-26] MEDS: MULTIVIT, IRON, MIN NO. 8, FA TABLET GT SCH (21:00)
[2022-08-26] MEDS: TEMAZEPAM 7.5 MG CAPSULE GT PRN (22:15)
[2022-08-27] VITALS (16 sets, daily range): TEMP 98.8–98.9; O2SAT 97–99
[2022-08-27] MEDS: IPRATROPIUM BROMIDE 0.5 MG/2.5 ML NEBU NEB SCH ×6 (01:54→18:43)
[2022-08-27] MEDS: ALBUTEROL SULFATE 2.5 MG/3 ML NEBU NEB SCH ×6 (01:55→18:43)
[2022-08-27] MEDS: CEFIDEROCOL IV SCH ×3 (02:07→18:47)
[2022-08-27] MEDS: BACLOFEN 10 MG TABLET GT SCH ×4 (05:06→17:44)
[2022-08-27] MEDS: ARGININE/GLUTAMINE/CALCIUM BMB 1 EACH POWD.PACK GT SCH ×2 (05:06→17:44)
[2022-08-27] MEDS: OMEGA-3 FATTY ACIDS/FISH OIL CAPSULE GT SCH ×2 (05:06→17:44)
[2022-08-27] MEDS: PROTEIN SUPPLEMENT (PROSTAT) 30 ML LIQUID GT SCH ×3 (05:07→22:00)
[2022-08-27] MEDS: OMEPRAZOLE 20 MG CAPSULE.DR GT SCH (05:07)
[2022-08-27] MEDS: MIDODRINE HCL 5 MG TABLET GT SCH ×3 (05:07→22:31)
[2022-08-27] MEDS ORDERED: SODIUM HYPOCHLORITE 0.125% (QUARTER STRENGTH) 473 ML BOTTLE TP PRN (09:00)
[2022-08-27] MEDS: ACETAMINOPHEN 650 MG/20.3 ML LIQUID UDC GT SCH ×2 (09:11→20:30)
[2022-08-27] MEDS: APIXABAN 5 MG TABLET GT SCH ×2 (09:15→21:00)
[2022-08-27] MEDS: ACIDOPHILUS/BULGARICUS CHEW TAB GT SCH ×2 (09:16→21:00)
[2022-08-27] MEDS: SODIUM HYPOCHLORITE 0.125% (QUARTER STRENGTH) 473 ML BOTTLE TP SCH ×2 (09:19)
[2022-08-27] MEDS: REMEDY ESSENTIAL ZINC PASTE 113 GM TP SCH (09:19)
[2022-08-27] MEDS: SULFAMETHE/TRIMETH 20 ML LIQUID UDC GT SCH ×2 (09:19→21:00)
[2022-08-27] MEDS: SERTRALINE 25MG TABLET GT SCH (12:58)
[2022-08-27] MEDS: ASCORBIC ACID 500 MG TABLET GT SCH (21:00)
[2022-08-27] MEDS: ESTROGENS,CONJU VAGINAL CREAM 42.5 GM TUBE VG SCH (21:00)
[2022-08-27] MEDS: SIMVASTATIN 10 MG TABLET GT SCH (21:00)
[2022-08-27] MEDS: MULTIVIT, IRON, MIN NO. 8, FA TABLET GT SCH (21:00)
[2022-08-27] MEDS: HYDROGEN PEROXIDE 3% 118 ML BOTTLE TP SCH (21:44)
[2022-08-27] MEDS: TEMAZEPAM 7.5 MG CAPSULE GT PRN (22:20)
[2022-08-28] VITALS (17 sets, daily range): TEMP 98.9–99; O2SAT 98–99
[2022-08-28] MEDS: IPRATROPIUM BROMIDE 0.5 MG/2.5 ML NEBU NEB SCH ×7 (00:53→23:19)
[2022-08-28] MEDS: ALBUTEROL SULFATE 2.5 MG/3 ML NEBU NEB SCH ×7 (00:53→23:19)
[2022-08-28] MEDS: CEFIDEROCOL IV SCH ×3 (02:00→17:47)
[2022-08-28] MEDS: GLUCERNA 1.2 1000ML LIQUID GT PRN (04:06)
[2022-08-28] MEDS: OMEGA-3 FATTY ACIDS/FISH OIL CAPSULE GT SCH ×2 (05:18→17:58)
[2022-08-28] MEDS: OMEPRAZOLE 20 MG CAPSULE.DR GT SCH (05:18)
[2022-08-28] MEDS: ARGININE/GLUTAMINE/CALCIUM BMB 1 EACH POWD.PACK GT SCH ×2 (05:18→17:58)
[2022-08-28] MEDS: BACLOFEN 10 MG TABLET GT SCH ×5 (05:18→23:11)
[2022-08-28] MEDS: MIDODRINE HCL 5 MG TABLET GT SCH ×3 (05:19→21:31)
[2022-08-28] MEDS: PROTEIN SUPPLEMENT (PROSTAT) 30 ML LIQUID GT SCH ×3 (05:19→21:18)
[2022-08-28] MEDS: REMEDY ESSENTIAL ZINC PASTE 113 GM TP SCH (08:16)
[2022-08-28] MEDS: SULFAMETHE/TRIMETH 20 ML LIQUID UDC GT SCH ×2 (08:16→21:25)
[2022-08-28] MEDS: ACIDOPHILUS/BULGARICUS CHEW TAB GT SCH ×2 (08:16→21:17)
[2022-08-28] MEDS: APIXABAN 5 MG TABLET GT SCH ×2 (08:21→21:25)
[2022-08-28] MEDS: SODIUM HYPOCHLORITE 0.125% (QUARTER STRENGTH) 473 ML BOTTLE TP SCH (08:21)
[2022-08-28] MEDS: ACETAMINOPHEN 650 MG/20.3 ML LIQUID UDC GT SCH ×2 (08:22→21:16)
[2022-08-28] MEDS: HYDROGEN PEROXIDE 3% 118 ML BOTTLE TP SCH ×2 (09:05→23:08)
[2022-08-28] MEDS: HYDROGEN PEROXIDE 3% 118 ML BOTTLE TP PRN (09:24)
[2022-08-28] MEDS: SERTRALINE 25MG TABLET GT SCH (12:00)
[2022-08-28] MEDS: MULTIVIT, IRON, MIN NO. 8, FA TABLET GT SCH (21:17)
[2022-08-28] MEDS: ASCORBIC ACID 500 MG TABLET GT SCH (21:17)
[2022-08-28] MEDS: SIMVASTATIN 10 MG TABLET GT SCH (21:18)
[2022-08-28] MEDS: ESTROGENS,CONJU VAGINAL CREAM 42.5 GM TUBE VG SCH (21:18)
[2022-08-28] MEDS: TEMAZEPAM 7.5 MG CAPSULE GT PRN (21:24)
[2022-08-29] VITALS (15 sets, daily range): TEMP 98.2–98.5; O2SAT 98–99
[2022-08-29] MEDS: CEFIDEROCOL IV SCH ×4 (01:26→17:35)
[2022-08-29] MEDS: IPRATROPIUM BROMIDE 0.5 MG/2.5 ML NEBU NEB SCH ×6 (03:11→23:33)
[2022-08-29] MEDS: ALBUTEROL SULFATE 2.5 MG/3 ML NEBU NEB SCH ×6 (03:12→23:33)
[2022-08-29] MEDS: OMEGA-3 FATTY ACIDS/FISH OIL CAPSULE GT SCH ×2 (06:01→17:10)
[2022-08-29] MEDS: BACLOFEN 10 MG TABLET GT SCH ×4 (06:02→23:43)
[2022-08-29] MEDS: OMEPRAZOLE 20 MG CAPSULE.DR GT SCH (06:02)
[2022-08-29] MEDS: MIDODRINE HCL 5 MG TABLET GT SCH ×3 (06:02→22:10)
[2022-08-29] MEDS: ARGININE/GLUTAMINE/CALCIUM BMB 1 EACH POWD.PACK GT SCH ×2 (06:02→17:10)
[2022-08-29] MEDS: HYDROCODONE/APAP 10-325 MG TABLET GT PRN ×2 (06:09→22:11)
[2022-08-29] MEDS: PROTEIN SUPPLEMENT (PROSTAT) 30 ML LIQUID GT SCH ×3 (06:10→22:10)
[2022-08-29 06:52] LABS: BASOPHILS # (AUTO) 0.1 K/UL (0.0-0.2); EOSINOPHILS # (AUTO) 0.6 K/uL (0.0-0.7); EOSINOPHILS % (AUTO) 6.4 % (0.0-7.0); HEMATOCRIT 30.7 % (31.2-41.9); HEMOGLOBIN 9.5 g/dL (10.9-14.3); LYMPHOCYTES # (AUTO) 1.9 K/uL (0.8-4.8); LYMPHOCYTES % (AUTO) 19.2 % (20.5-51.5); MEAN CORPUSCULAR HEMOGLOBIN 25.9 uug (24.7-32.8); MEAN CORPUSCULAR HGB CONC 31 g/dL (32.3-35.6); MEAN CORPUSCULAR VOLUME 83.9 fL (75.5-95.3); MONOCYTES # (AUTO) 0.9 K/uL (0.1-1.30); MONOCYTES % (AUTO) 8.5 % (0.0-11.0); NEUTROPHILS # (AUTO) 6.5 K/uL (1.8-8.9); NEUTROPHILS % (AUTO) 64.9 % (38.5-71.5); PLATELET COUNT (AUTO) 237 K/uL (179-408); RED BLOOD CELL COUNT(AUTO) 3.66 MIL/uL (3.63-4.92); RED CELL DISTRIBUTION WIDTH 20.1 % (12.3-17.7)
[2022-08-29 07:26] LABS: DIFFERENTIAL COMMENT 1
[2022-08-29 07:33] LABS: ALBUMIN 2.2 g/dL (3.4-5.0); BILIRUBIN,TOTAL 0.8 mg/dL (0.2-1.0); CALCIUM 9.2 mg/dL (8.5-10.1); CREATININE 0.9 mg/dL (0.6-1.3); POTASSIUM 4.2 mmol/L (3.5-5.1); TOTAL PROTEIN, SERUM 8.8 g/dL (6.4-8.2)
[2022-08-29] MEDS: ACETAMINOPHEN 650 MG/20.3 ML LIQUID UDC GT SCH ×2 (08:41→20:43)
[2022-08-29] MEDS: APIXABAN 5 MG TABLET GT SCH ×2 (08:41→20:47)
[2022-08-29] MEDS: ACIDOPHILUS/BULGARICUS CHEW TAB GT SCH ×2 (08:43→20:48)
[2022-08-29] MEDS: SODIUM HYPOCHLORITE 0.125% (QUARTER STRENGTH) 473 ML BOTTLE TP SCH (08:44)
[2022-08-29] MEDS: SULFAMETHE/TRIMETH 20 ML LIQUID UDC GT SCH ×2 (08:44→21:00)
[2022-08-29] MEDS: REMEDY ESSENTIAL ZINC PASTE 113 GM TP SCH (08:45)
[2022-08-29 09:38] LABS: ERYTHROCYTE SEDIMENTATION RATE 145 MM/HR (0-20)
[2022-08-29] MEDS: HYDROGEN PEROXIDE 3% 118 ML BOTTLE TP SCH ×2 (09:53→19:44)
[2022-08-29] MEDS: SERTRALINE 25MG TABLET GT SCH (12:24)
[2022-08-29] MEDS: GLUCERNA 1.2 1000ML LIQUID GT PRN (12:26)
[2022-08-29] MEDS: SIMVASTATIN 10 MG TABLET GT SCH (20:45)
[2022-08-29] MEDS: MULTIVIT, IRON, MIN NO. 8, FA TABLET GT SCH (20:48)
[2022-08-29] MEDS: ASCORBIC ACID 500 MG TABLET GT SCH (20:48)
[2022-08-29] MEDS: ESTROGENS,CONJU VAGINAL CREAM 42.5 GM TUBE VG SCH (21:19)
[2022-08-29] MEDS: TEMAZEPAM 7.5 MG CAPSULE GT PRN (23:00)
[2022-08-30] VITALS (14 sets, daily range): TEMP 98.8–98.9; O2SAT 98–99
[2022-08-30] MEDS: CEFIDEROCOL IV SCH ×3 (02:16→18:20)
[2022-08-30] MEDS: IPRATROPIUM BROMIDE 0.5 MG/2.5 ML NEBU NEB SCH ×6 (04:03→23:30)
[2022-08-30] MEDS: ALBUTEROL SULFATE 2.5 MG/3 ML NEBU NEB SCH ×6 (04:03→23:30)
[2022-08-30] MEDS: OMEPRAZOLE 20 MG CAPSULE.DR GT SCH (05:26)
[2022-08-30] MEDS: ARGININE/GLUTAMINE/CALCIUM BMB 1 EACH POWD.PACK GT SCH ×2 (05:26→17:55)
[2022-08-30] MEDS: OMEGA-3 FATTY ACIDS/FISH OIL CAPSULE GT SCH ×2 (05:26→17:55)
[2022-08-30] MEDS: BACLOFEN 10 MG TABLET GT SCH ×3 (05:26→17:55)
[2022-08-30] MEDS: PROTEIN SUPPLEMENT (PROSTAT) 30 ML LIQUID GT SCH ×3 (05:27→21:13)
[2022-08-30] MEDS: MIDODRINE HCL 5 MG TABLET GT SCH ×3 (05:27→21:13)
[2022-08-30] MEDS: HYDROCODONE/APAP 10-325 MG TABLET GT PRN ×2 (06:22→14:41)
[2022-08-30] MEDS: HYDROGEN PEROXIDE 3% 118 ML BOTTLE TP SCH ×2 (07:45→20:35)
[2022-08-30] MEDS: APIXABAN 5 MG TABLET GT SCH ×2 (09:26→21:00)
[2022-08-30] MEDS: ACETAMINOPHEN 650 MG/20.3 ML LIQUID UDC GT SCH ×2 (09:26→20:30)
[2022-08-30] MEDS: ACIDOPHILUS/BULGARICUS CHEW TAB GT SCH ×2 (09:27→21:12)
[2022-08-30] MEDS: REMEDY ESSENTIAL ZINC PASTE 113 GM TP SCH (09:27)
[2022-08-30] MEDS: SODIUM HYPOCHLORITE 0.125% (QUARTER STRENGTH) 473 ML BOTTLE TP SCH (09:27)
[2022-08-30] MEDS: SERTRALINE 25MG TABLET GT SCH (12:00)
[2022-08-30] MEDS ORDERED: SULFAMETHE/TRIMETH 20 ML LIQUID UDC GT ONE (14:45)
[2022-08-30] MEDS: TEMAZEPAM 7.5 MG CAPSULE GT PRN (21:00)
[2022-08-30] MEDS: GLUCERNA 1.2 1000ML LIQUID GT PRN (21:00)
[2022-08-30] MEDS: SULFAMETHE/TRIMETH 20 ML LIQUID UDC GT SCH (21:12)
[2022-08-30] MEDS: MULTIVIT, IRON, MIN NO. 8, FA TABLET GT SCH (21:12)
[2022-08-30] MEDS: ESTROGENS,CONJU VAGINAL CREAM 42.5 GM TUBE VG SCH (21:12)
[2022-08-30] MEDS: ASCORBIC ACID 500 MG TABLET GT SCH (21:12)
[2022-08-30] MEDS: SIMVASTATIN 10 MG TABLET GT SCH (21:12)
[2022-08-31] VITALS (18 sets, daily range): TEMP 98–98.8; O2SAT 98–99
[2022-08-31] MEDS: BACLOFEN 10 MG TABLET GT SCH ×4 (00:24→17:17)
[2022-08-31] MEDS: CEFIDEROCOL IV SCH ×3 (01:49→18:00)
[2022-08-31] MEDS: IPRATROPIUM BROMIDE 0.5 MG/2.5 ML NEBU NEB SCH ×6 (04:22→23:54)
[2022-08-31] MEDS: ALBUTEROL SULFATE 2.5 MG/3 ML NEBU NEB SCH ×6 (04:22→23:54)
[2022-08-31] MEDS: ARGININE/GLUTAMINE/CALCIUM BMB 1 EACH POWD.PACK GT SCH ×2 (05:12→17:17)
[2022-08-31] MEDS: OMEGA-3 FATTY ACIDS/FISH OIL CAPSULE GT SCH ×2 (05:12→17:17)
[2022-08-31] MEDS: OMEPRAZOLE 20 MG CAPSULE.DR GT SCH (05:12)
[2022-08-31] MEDS: PROTEIN SUPPLEMENT (PROSTAT) 30 ML LIQUID GT SCH ×3 (05:13→21:25)
[2022-08-31] MEDS: MIDODRINE HCL 5 MG TABLET GT SCH ×3 (05:13→21:25)
[2022-08-31 07:40] LABS: ALANINE AMINOTRANSFERASE 13 U/L (14-59); ALBUMIN 2.4 g/dL (3.4-5.0); ALKALINE PHOSPHATASE 119 U/L (50-136); ASPARTATE AMINOTRANSFERASE < 5 U/L (15-37); BILIRUBIN,TOTAL 0.8 mg/dL (0.2-1.0); CALCIUM 9.8 mg/dL (8.5-10.1); CARBON DIOXIDE 28 mmol/L (21-32); CHLORIDE 106 mmol/L (98-107); CREATININE 0.8 mg/dL (0.6-1.3); GLUCOSE 109 mg/dL (74-106); POTASSIUM 4.4 mmol/L (3.5-5.1); SODIUM SERUM 142 mmol/L (136-145); UREA NITROGEN, BLOOD 50 mg/dL (7-18)
[2022-08-31] MEDS: HYDROGEN PEROXIDE 3% 118 ML BOTTLE TP SCH ×2 (08:40→22:15)
[2022-08-31] MEDS: APIXABAN 5 MG TABLET GT SCH ×2 (08:47→21:24)
[2022-08-31] MEDS: ACETAMINOPHEN 650 MG/20.3 ML LIQUID UDC GT SCH ×2 (08:47→21:23)
[2022-08-31] MEDS: SODIUM HYPOCHLORITE 0.125% (QUARTER STRENGTH) 473 ML BOTTLE TP SCH (08:48)
[2022-08-31] MEDS: ACIDOPHILUS/BULGARICUS CHEW TAB GT SCH ×2 (08:48→21:24)
[2022-08-31] MEDS: REMEDY ESSENTIAL ZINC PASTE 113 GM TP SCH (08:48)
[2022-08-31] MEDS: SULFAMETHE/TRIMETH 20 ML LIQUID UDC GT SCH ×2 (08:48→21:24)
[2022-08-31] MEDS: SERTRALINE 25MG TABLET GT SCH (11:14)
[2022-08-31] MEDS: HYDROCODONE/APAP 10-325 MG TABLET GT PRN (11:14)
[2022-08-31] MEDS: TEMAZEPAM 7.5 MG CAPSULE GT PRN (21:00)
[2022-08-31] MEDS: ASCORBIC ACID 500 MG TABLET GT SCH (21:24)
[2022-08-31] MEDS: ESTROGENS,CONJU VAGINAL CREAM 42.5 GM TUBE VG SCH (21:24)
[2022-08-31] MEDS: SIMVASTATIN 10 MG TABLET GT SCH (21:24)
[2022-08-31] MEDS: MULTIVIT, IRON, MIN NO. 8, FA TABLET GT SCH (21:24)
[2022-09-01] VITALS (14 sets, daily range): TEMP 96.2–98.6; O2SAT 98–99
[2022-09-01] MEDS: CEFIDEROCOL IV SCH ×3 (02:59→18:00)
[2022-09-01] MEDS: IPRATROPIUM BROMIDE 0.5 MG/2.5 ML NEBU NEB SCH ×5 (04:01→21:51)
[2022-09-01] MEDS: ALBUTEROL SULFATE 2.5 MG/3 ML NEBU NEB SCH ×5 (04:02→21:51)
[2022-09-01] MEDS: GLUCERNA 1.2 1000ML LIQUID GT PRN (04:41)
[2022-09-01] MEDS: OMEPRAZOLE 20 MG CAPSULE.DR GT SCH (05:23)
[2022-09-01] MEDS: ARGININE/GLUTAMINE/CALCIUM BMB 1 EACH POWD.PACK GT SCH ×2 (05:23→17:43)
[2022-09-01] MEDS: OMEGA-3 FATTY ACIDS/FISH OIL CAPSULE GT SCH ×2 (05:23→17:43)
[2022-09-01] MEDS: BACLOFEN 10 MG TABLET GT SCH ×5 (05:23→23:46)
[2022-09-01] MEDS: MIDODRINE HCL 5 MG TABLET GT SCH ×3 (05:24→21:34)
[2022-09-01] MEDS: PROTEIN SUPPLEMENT (PROSTAT) 30 ML LIQUID GT SCH ×3 (05:24→21:35)
[2022-09-01] MEDS: REMEDY ESSENTIAL ZINC PASTE 113 GM TP SCH (09:00)
[2022-09-01] MEDS: SODIUM HYPOCHLORITE 0.125% (QUARTER STRENGTH) 473 ML BOTTLE TP SCH (09:00)
[2022-09-01] MEDS: HYDROGEN PEROXIDE 3% 118 ML BOTTLE TP SCH ×2 (09:04→21:52)
[2022-09-01] MEDS: ACETAMINOPHEN 650 MG/20.3 ML LIQUID UDC GT SCH ×2 (09:19→20:30)
[2022-09-01] MEDS: ACIDOPHILUS/BULGARICUS CHEW TAB GT SCH ×2 (09:20→21:33)
[2022-09-01] MEDS: APIXABAN 5 MG TABLET GT SCH ×2 (09:25→21:33)
[2022-09-01] MEDS: SULFAMETHE/TRIMETH 20 ML LIQUID UDC GT SCH ×2 (09:32→21:33)
[2022-09-01] MEDS: SERTRALINE 25MG TABLET GT SCH (12:28)
[2022-09-01] MEDS: MULTIVIT, IRON, MIN NO. 8, FA TABLET GT SCH (21:33)
[2022-09-01] MEDS: ASCORBIC ACID 500 MG TABLET GT SCH (21:33)
[2022-09-01] MEDS: SIMVASTATIN 10 MG TABLET GT SCH (21:34)
[2022-09-01] MEDS: ESTROGENS,CONJU VAGINAL CREAM 42.5 GM TUBE VG SCH (21:34)
[2022-09-02] VITALS (16 sets, daily range): TEMP 98–98.2; O2SAT 98–99
[2022-09-02] MEDS: IPRATROPIUM BROMIDE 0.5 MG/2.5 ML NEBU NEB SCH ×7 (00:21→23:05)
[2022-09-02] MEDS: ALBUTEROL SULFATE 2.5 MG/3 ML NEBU NEB SCH ×7 (00:22→23:05)
[2022-09-02] MEDS: CEFIDEROCOL IV SCH ×3 (02:00→18:04)
[2022-09-02] MEDS: OMEPRAZOLE 20 MG CAPSULE.DR GT SCH (05:33)
[2022-09-02] MEDS: BACLOFEN 10 MG TABLET GT SCH ×3 (05:33→17:24)
[2022-09-02] MEDS: MIDODRINE HCL 5 MG TABLET GT SCH ×3 (05:33→22:02)
[2022-09-02] MEDS: ARGININE/GLUTAMINE/CALCIUM BMB 1 EACH POWD.PACK GT SCH ×2 (05:33→17:24)
[2022-09-02] MEDS: OMEGA-3 FATTY ACIDS/FISH OIL CAPSULE GT SCH ×2 (05:33→17:24)
[2022-09-02] MEDS: PROTEIN SUPPLEMENT (PROSTAT) 30 ML LIQUID GT SCH ×3 (05:34→22:02)
[2022-09-02 07:29] LABS: ALBUMIN 2.2 g/dL (3.4-5.0); BILIRUBIN,TOTAL 0.7 mg/dL (0.2-1.0); CALCIUM 9.7 mg/dL (8.5-10.1); CREATININE 0.8 mg/dL (0.6-1.3); POTASSIUM 3.9 mmol/L (3.5-5.1)
[2022-09-02] MEDS: HYDROGEN PEROXIDE 3% 118 ML BOTTLE TP SCH ×2 (07:45→19:11)
[2022-09-02] MEDS: ACETAMINOPHEN 650 MG/20.3 ML LIQUID UDC GT SCH ×2 (08:47→20:04)
[2022-09-02] MEDS: ACIDOPHILUS/BULGARICUS CHEW TAB GT SCH ×2 (08:48→21:00)
[2022-09-02] MEDS: APIXABAN 5 MG TABLET GT SCH ×2 (08:48→21:00)
[2022-09-02] MEDS: REMEDY ESSENTIAL ZINC PASTE 113 GM TP SCH (08:52)
[2022-09-02] MEDS: SULFAMETHE/TRIMETH 20 ML LIQUID UDC GT SCH ×2 (08:52→21:00)
[2022-09-02] MEDS: SODIUM HYPOCHLORITE 0.125% (QUARTER STRENGTH) 473 ML BOTTLE TP SCH (09:00)
[2022-09-02] MEDS: SERTRALINE 25MG TABLET GT SCH (12:00)
[2022-09-02] MEDS: ACETAMINOPHEN 650 MG/20 ML UDC- SA PATIENTS-PAIN ONLY GT PRN (18:39)
[2022-09-02] MEDS: MULTIVIT, IRON, MIN NO. 8, FA TABLET GT SCH (21:00)
[2022-09-02] MEDS: SIMVASTATIN 10 MG TABLET GT SCH (21:00)
[2022-09-02] MEDS: ASCORBIC ACID 500 MG TABLET GT SCH (21:00)
[2022-09-02] MEDS: ESTROGENS,CONJU VAGINAL CREAM 42.5 GM TUBE VG SCH (21:00)
[2022-09-02] MEDS: TEMAZEPAM 7.5 MG CAPSULE GT PRN (22:08)
[2022-09-03] VITALS (14 sets, daily range): TEMP 98.3–99.3; O2SAT 96–99
[2022-09-03] MEDS: BACLOFEN 10 MG TABLET GT SCH ×4 (00:38→17:34)
[2022-09-03] MEDS: HYDROCODONE/APAP 10-325 MG TABLET GT PRN (00:39)
[2022-09-03] MEDS: CEFIDEROCOL IV SCH ×3 (01:32→17:49)
[2022-09-03] MEDS: ACETAMINOPHEN 650 MG/20 ML UDC- SA PATIENTS-PAIN ONLY GT PRN (04:56)
[2022-09-03] MEDS: OMEPRAZOLE 20 MG CAPSULE.DR GT SCH (05:04)
[2022-09-03] MEDS: ARGININE/GLUTAMINE/CALCIUM BMB 1 EACH POWD.PACK GT SCH ×2 (05:04→17:34)
[2022-09-03] MEDS: OMEGA-3 FATTY ACIDS/FISH OIL CAPSULE GT SCH ×2 (05:04→17:34)
[2022-09-03] MEDS: PROTEIN SUPPLEMENT (PROSTAT) 30 ML LIQUID GT SCH ×3 (05:05→22:19)
[2022-09-03] MEDS: MIDODRINE HCL 5 MG TABLET GT SCH ×3 (05:05→22:00)
[2022-09-03] MEDS: IPRATROPIUM BROMIDE 0.5 MG/2.5 ML NEBU NEB SCH ×5 (07:22→23:20)
[2022-09-03] MEDS: ALBUTEROL SULFATE 2.5 MG/3 ML NEBU NEB SCH ×5 (07:22→23:20)
[2022-09-03] MEDS: APIXABAN 5 MG TABLET GT SCH ×2 (08:46→21:00)
[2022-09-03] MEDS: ACIDOPHILUS/BULGARICUS CHEW TAB GT SCH ×2 (08:47→21:00)
[2022-09-03] MEDS: SULFAMETHE/TRIMETH 20 ML LIQUID UDC GT SCH ×2 (08:55→21:00)
[2022-09-03] MEDS: REMEDY ESSENTIAL ZINC PASTE 113 GM TP SCH (08:56)
[2022-09-03] MEDS: SODIUM HYPOCHLORITE 0.125% (QUARTER STRENGTH) 473 ML BOTTLE TP SCH (08:56)
[2022-09-03] MEDS: HYDROGEN PEROXIDE 3% 118 ML BOTTLE TP SCH ×2 (09:39→21:00)
[2022-09-03] MEDS: SERTRALINE 25MG TABLET GT SCH (12:00)
[2022-09-03] MEDS: ACETAMINOPHEN 650 MG/20.3 ML LIQUID UDC GT SCH ×2 (13:25→20:30)
[2022-09-03] MEDS: GLUCERNA 1.2 1000ML LIQUID GT PRN (18:12)
[2022-09-03] MEDS: ASCORBIC ACID 500 MG TABLET GT SCH (21:00)
[2022-09-03] MEDS: ESTROGENS,CONJU VAGINAL CREAM 42.5 GM TUBE VG SCH (21:00)
[2022-09-03] MEDS: SIMVASTATIN 10 MG TABLET GT SCH (21:00)
[2022-09-03] MEDS: MULTIVIT, IRON, MIN NO. 8, FA TABLET GT SCH (21:00)
[2022-09-04] VITALS (14 sets, daily range): TEMP 97.8–99; O2SAT 97–99
[2022-09-04] MEDS: CEFIDEROCOL IV SCH ×3 (02:00→18:46)
[2022-09-04] MEDS: ALBUTEROL SULFATE 2.5 MG/3 ML NEBU NEB SCH ×6 (03:10→23:32)
[2022-09-04] MEDS: IPRATROPIUM BROMIDE 0.5 MG/2.5 ML NEBU NEB SCH ×6 (03:10→23:32)
[2022-09-04] MEDS: BACLOFEN 10 MG TABLET GT SCH ×4 (05:06→17:26)
[2022-09-04] MEDS: PROTEIN SUPPLEMENT (PROSTAT) 30 ML LIQUID GT SCH ×3 (05:07→21:57)
[2022-09-04] MEDS: OMEGA-3 FATTY ACIDS/FISH OIL CAPSULE GT SCH ×2 (05:07→17:26)
[2022-09-04] MEDS: OMEPRAZOLE 20 MG CAPSULE.DR GT SCH (05:07)
[2022-09-04] MEDS: ARGININE/GLUTAMINE/CALCIUM BMB 1 EACH POWD.PACK GT SCH ×2 (05:07→17:26)
[2022-09-04] MEDS: MIDODRINE HCL 5 MG TABLET GT SCH ×3 (05:36→21:57)
[2022-09-04] MEDS: ACETAMINOPHEN 650 MG/20.3 ML LIQUID UDC GT SCH ×2 (08:59→20:30)
[2022-09-04] MEDS: SODIUM HYPOCHLORITE 0.125% (QUARTER STRENGTH) 473 ML BOTTLE TP SCH (09:00)
[2022-09-04] MEDS: APIXABAN 5 MG TABLET GT SCH ×2 (09:00→21:58)
[2022-09-04] MEDS: REMEDY ESSENTIAL ZINC PASTE 113 GM TP SCH (09:00)
[2022-09-04] MEDS: ACIDOPHILUS/BULGARICUS CHEW TAB GT SCH ×2 (09:00→21:54)
[2022-09-04] MEDS: SULFAMETHE/TRIMETH 20 ML LIQUID UDC GT SCH ×2 (09:10→21:56)
[2022-09-04] MEDS: HYDROGEN PEROXIDE 3% 118 ML BOTTLE TP SCH ×2 (09:53→21:09)
[2022-09-04] MEDS: SERTRALINE 25MG TABLET GT SCH (12:00)
[2022-09-04] MEDS: ESTROGENS,CONJU VAGINAL CREAM 42.5 GM TUBE VG SCH (21:56)
[2022-09-04] MEDS: ASCORBIC ACID 500 MG TABLET GT SCH (21:56)
[2022-09-04] MEDS: SIMVASTATIN 10 MG TABLET GT SCH (21:56)
[2022-09-04] MEDS: MULTIVIT, IRON, MIN NO. 8, FA TABLET GT SCH (21:56)
[2022-09-05] VITALS (15 sets, daily range): TEMP 98.5–100.5; O2SAT 97–99
[2022-09-05] MEDS: BACLOFEN 10 MG TABLET GT SCH ×4 (00:37→18:05)
[2022-09-05] MEDS: CEFIDEROCOL IV SCH ×3 (02:17→18:00)
[2022-09-05] MEDS: ALBUTEROL SULFATE 2.5 MG/3 ML NEBU NEB SCH ×6 (04:26→23:37)
[2022-09-05] MEDS: IPRATROPIUM BROMIDE 0.5 MG/2.5 ML NEBU NEB SCH ×6 (04:26→23:36)
[2022-09-05] MEDS: HYDROCODONE/APAP 10-325 MG TABLET GT PRN (05:34)
[2022-09-05] MEDS: ARGININE/GLUTAMINE/CALCIUM BMB 1 EACH POWD.PACK GT SCH ×2 (05:55→18:05)
[2022-09-05] MEDS: OMEGA-3 FATTY ACIDS/FISH OIL CAPSULE GT SCH ×2 (05:55→18:05)
[2022-09-05] MEDS: OMEPRAZOLE 20 MG CAPSULE.DR GT SCH (05:56)
[2022-09-05] MEDS: MIDODRINE HCL 5 MG TABLET GT SCH ×3 (05:57→21:05)
[2022-09-05] MEDS: PROTEIN SUPPLEMENT (PROSTAT) 30 ML LIQUID GT SCH ×3 (05:57→21:05)
[2022-09-05 07:32] LABS: BASOPHILS % (AUTO) 0.4 % (0.0-2.0); EOSINOPHILS # (AUTO) 0.4 K/uL (0.0-0.7); EOSINOPHILS % (AUTO) 3.9 % (0.0-7.0); HEMATOCRIT 30.9 % (31.2-41.9); HEMOGLOBIN 9.6 g/dL (10.9-14.3); LYMPHOCYTES # (AUTO) 2.1 K/uL (0.8-4.8); LYMPHOCYTES % (AUTO) 18.5 % (20.5-51.5); MEAN CORPUSCULAR HGB CONC 31 g/dL (32.3-35.6); MEAN CORPUSCULAR VOLUME 83.3 fL (75.5-95.3); MONOCYTES # (AUTO) 1.4 K/uL (0.1-1.30); MONOCYTES % (AUTO) 12.7 % (0.0-11.0); NEUTROPHILS # (AUTO) 7.2 K/uL (1.8-8.9); NEUTROPHILS % (AUTO) 64.5 % (38.5-71.5); PLATELET COUNT (AUTO) 270 K/uL (179-408); RED BLOOD CELL COUNT(AUTO) 3.71 MIL/uL (3.63-4.92); RED CELL DISTRIBUTION WIDTH 20.6 % (12.3-17.7); WHITE BLOOD COUNT (AUTO) 11.1 K/uL (3.8-11.8)
[2022-09-05 07:39] LABS: ALBUMIN 2.1 g/dL (3.4-5.0); BILIRUBIN,TOTAL 0.7 mg/dL (0.2-1.0); CALCIUM 9.4 mg/dL (8.5-10.1); POTASSIUM 4.1 mmol/L (3.5-5.1); TOTAL PROTEIN, SERUM 9.5 g/dL (6.4-8.2)
[2022-09-05] MEDS: ACETAMINOPHEN 650 MG/20.3 ML LIQUID UDC GT SCH ×2 (08:11→21:02)
[2022-09-05] MEDS: ACIDOPHILUS/BULGARICUS CHEW TAB GT SCH ×2 (08:14→21:03)
[2022-09-05] MEDS: APIXABAN 5 MG TABLET GT SCH ×2 (08:18→21:03)
[2022-09-05] MEDS: SULFAMETHE/TRIMETH 20 ML LIQUID UDC GT SCH ×2 (08:19→21:59)
[2022-09-05] MEDS: SODIUM HYPOCHLORITE 0.125% (QUARTER STRENGTH) 473 ML BOTTLE TP SCH (08:22)
[2022-09-05] MEDS: HYDROGEN PEROXIDE 3% 118 ML BOTTLE TP SCH ×2 (08:22→21:46)
[2022-09-05] MEDS: REMEDY ESSENTIAL ZINC PASTE 113 GM TP SCH (08:22)
[2022-09-05 08:47] LABS: DIFFERENTIAL COMMENT 1
[2022-09-05 09:47] LABS: ERYTHROCYTE SEDIMENTATION RATE 44 MM/HR (0-20)
[2022-09-05] MEDS: SERTRALINE 25MG TABLET GT SCH (12:27)
[2022-09-05] MEDS: MULTIVIT, IRON, MIN NO. 8, FA TABLET GT SCH (21:03)
[2022-09-05] MEDS: ASCORBIC ACID 500 MG TABLET GT SCH (21:03)
[2022-09-05] MEDS: SIMVASTATIN 10 MG TABLET GT SCH (21:05)
[2022-09-05] MEDS: ESTROGENS,CONJU VAGINAL CREAM 42.5 GM TUBE VG SCH (21:05)
[2022-09-06] VITALS (16 sets, daily range): TEMP 97.6–98.6; O2SAT 97–99
[2022-09-06] MEDS: BACLOFEN 10 MG TABLET GT SCH ×5 (00:23→23:30)
[2022-09-06] MEDS: CEFIDEROCOL IV SCH ×3 (02:25→18:23)
[2022-09-06] MEDS: IPRATROPIUM BROMIDE 0.5 MG/2.5 ML NEBU NEB SCH ×6 (03:54→23:20)
[2022-09-06] MEDS: ALBUTEROL SULFATE 2.5 MG/3 ML NEBU NEB SCH ×6 (03:54→23:20)
[2022-09-06] MEDS: HYDROCODONE/APAP 10-325 MG TABLET GT PRN (05:19)
[2022-09-06] MEDS: OMEGA-3 FATTY ACIDS/FISH OIL CAPSULE GT SCH ×2 (06:52→17:01)
[2022-09-06] MEDS: ARGININE/GLUTAMINE/CALCIUM BMB 1 EACH POWD.PACK GT SCH ×2 (06:52→17:01)
[2022-09-06] MEDS: OMEPRAZOLE 20 MG CAPSULE.DR GT SCH (06:52)
[2022-09-06] MEDS: PROTEIN SUPPLEMENT (PROSTAT) 30 ML LIQUID GT SCH ×3 (06:53→22:08)
[2022-09-06] MEDS: MIDODRINE HCL 5 MG TABLET GT SCH ×3 (06:53→22:08)
[2022-09-06] MEDS: ACETAMINOPHEN 650 MG/20.3 ML LIQUID UDC GT SCH ×2 (08:26→20:30)
[2022-09-06] MEDS: ACIDOPHILUS/BULGARICUS CHEW TAB GT SCH ×2 (08:27→21:00)
[2022-09-06] MEDS: APIXABAN 5 MG TABLET GT SCH ×2 (08:27→21:00)
[2022-09-06] MEDS: SULFAMETHE/TRIMETH 20 ML LIQUID UDC GT SCH ×2 (08:28→21:00)
[2022-09-06] MEDS: REMEDY ESSENTIAL ZINC PASTE 113 GM TP SCH (08:28)
[2022-09-06] MEDS: SODIUM HYPOCHLORITE 0.125% (QUARTER STRENGTH) 473 ML BOTTLE TP SCH (08:28)
[2022-09-06] MEDS: HYDROGEN PEROXIDE 3% 118 ML BOTTLE TP SCH ×2 (10:00→21:22)
[2022-09-06] MEDS: SERTRALINE 25MG TABLET GT SCH (12:16)
[2022-09-06] MEDS: ESTROGENS,CONJU VAGINAL CREAM 42.5 GM TUBE VG SCH (21:00)
[2022-09-06] MEDS: ASCORBIC ACID 500 MG TABLET GT SCH (21:00)
[2022-09-06] MEDS: MULTIVIT, IRON, MIN NO. 8, FA TABLET GT SCH (21:00)
[2022-09-06] MEDS: SIMVASTATIN 10 MG TABLET GT SCH (21:00)
[2022-09-06] MEDS: TEMAZEPAM 7.5 MG CAPSULE GT PRN (23:28)
[2022-09-07] VITALS (14 sets, daily range): TEMP 97–98.8; O2SAT 97–99
[2022-09-07] MEDS: CEFIDEROCOL IV SCH ×4 (02:00→18:12)
[2022-09-07] MEDS: ALBUTEROL SULFATE 2.5 MG/3 ML NEBU NEB SCH ×6 (04:26→23:15)
[2022-09-07] MEDS: IPRATROPIUM BROMIDE 0.5 MG/2.5 ML NEBU NEB SCH ×6 (04:26→23:15)
[2022-09-07] MEDS: OMEGA-3 FATTY ACIDS/FISH OIL CAPSULE GT SCH ×2 (05:45→18:20)
[2022-09-07] MEDS: OMEPRAZOLE 20 MG CAPSULE.DR GT SCH (05:45)
[2022-09-07] MEDS: ARGININE/GLUTAMINE/CALCIUM BMB 1 EACH POWD.PACK GT SCH ×2 (05:45→18:20)
[2022-09-07] MEDS: BACLOFEN 10 MG TABLET GT SCH ×3 (05:45→18:20)
[2022-09-07] MEDS: PROTEIN SUPPLEMENT (PROSTAT) 30 ML LIQUID GT SCH ×3 (05:46→21:09)
[2022-09-07] MEDS: MIDODRINE HCL 5 MG TABLET GT SCH ×3 (05:54→21:09)
[2022-09-07 08:05] LABS: ALBUMIN 2.1 g/dL (3.4-5.0); BILIRUBIN,TOTAL 0.4 mg/dL (0.2-1.0); CALCIUM 9.4 mg/dL (8.5-10.1); CREATININE 1.1 mg/dL (0.6-1.3); POTASSIUM 4.5 mmol/L (3.5-5.1); TOTAL PROTEIN, SERUM 9.5 g/dL (6.4-8.2)
[2022-09-07] MEDS: ACETAMINOPHEN 650 MG/20.3 ML LIQUID UDC GT SCH ×2 (08:30→21:04)
[2022-09-07] MEDS: HYDROGEN PEROXIDE 3% 118 ML BOTTLE TP SCH ×2 (08:39→19:06)
[2022-09-07] MEDS: SODIUM HYPOCHLORITE 0.125% (QUARTER STRENGTH) 473 ML BOTTLE TP SCH (09:00)
[2022-09-07] MEDS: ACIDOPHILUS/BULGARICUS CHEW TAB GT SCH ×2 (09:00→21:07)
[2022-09-07] MEDS: APIXABAN 5 MG TABLET GT SCH ×2 (09:00→21:06)
[2022-09-07] MEDS: REMEDY ESSENTIAL ZINC PASTE 113 GM TP SCH (09:00)
[2022-09-07] MEDS: SULFAMETHE/TRIMETH 20 ML LIQUID UDC GT SCH ×2 (09:00→21:07)
[2022-09-07] MEDS: HYDROCODONE/APAP 10-325 MG TABLET GT PRN ×2 (10:30→21:29)
[2022-09-07] MEDS: SERTRALINE 25MG TABLET GT SCH (12:26)
[2022-09-07] MEDS: SIMVASTATIN 10 MG TABLET GT SCH (21:07)
[2022-09-07] MEDS: ASCORBIC ACID 500 MG TABLET GT SCH (21:07)
[2022-09-07] MEDS: ESTROGENS,CONJU VAGINAL CREAM 42.5 GM TUBE VG SCH (21:07)
[2022-09-07] MEDS: MULTIVIT, IRON, MIN NO. 8, FA TABLET GT SCH (21:07)
[2022-09-07] MEDS: TEMAZEPAM 7.5 MG CAPSULE GT PRN (23:33)
[2022-09-08] VITALS (13 sets, daily range): TEMP 98.5–100.4; O2SAT 97–99
[2022-09-08] MEDS: BACLOFEN 10 MG TABLET GT SCH ×5 (00:32→23:13)
[2022-09-08] MEDS: CEFIDEROCOL IV SCH ×3 (02:08→18:00)
[2022-09-08] MEDS: ALBUTEROL SULFATE 2.5 MG/3 ML NEBU NEB SCH ×7 (03:30→23:30)
[2022-09-08] MEDS: IPRATROPIUM BROMIDE 0.5 MG/2.5 ML NEBU NEB SCH ×7 (03:30→23:30)
[2022-09-08] MEDS: HYDROCODONE/APAP 10-325 MG TABLET GT PRN (05:10)
[2022-09-08] MEDS: PROTEIN SUPPLEMENT (PROSTAT) 30 ML LIQUID GT SCH ×3 (05:11→22:00)
[2022-09-08] MEDS: ARGININE/GLUTAMINE/CALCIUM BMB 1 EACH POWD.PACK GT SCH ×2 (05:11→18:27)
[2022-09-08] MEDS: OMEPRAZOLE 20 MG CAPSULE.DR GT SCH (05:11)
[2022-09-08] MEDS: OMEGA-3 FATTY ACIDS/FISH OIL CAPSULE GT SCH ×2 (05:11→18:26)
[2022-09-08] MEDS: MIDODRINE HCL 5 MG TABLET GT SCH ×3 (05:12→22:00)
[2022-09-08] MEDS ORDERED: SODIUM HYPOCHLORITE 0.125% (QUARTER STRENGTH) 473 ML BOTTLE TP PRN (08:00)
[2022-09-08] MEDS: HYDROGEN PEROXIDE 3% 118 ML BOTTLE TP SCH ×2 (08:07→21:10)
[2022-09-08] MEDS ORDERED: REMEDY ESSENTIAL ZINC PASTE 113 GM TP PRN (08:45)
[2022-09-08] MEDS: ACETAMINOPHEN 650 MG/20.3 ML LIQUID UDC GT SCH ×2 (09:22→20:30)
[2022-09-08] MEDS: ACIDOPHILUS/BULGARICUS CHEW TAB GT SCH ×2 (09:35→21:59)
[2022-09-08] MEDS: REMEDY ESSENTIAL ZINC PASTE 113 GM TP SCH ×3 (09:35→21:00)
[2022-09-08] MEDS: APIXABAN 5 MG TABLET GT SCH ×2 (09:35→21:00)
[2022-09-08] MEDS: SODIUM HYPOCHLORITE 0.125% (QUARTER STRENGTH) 473 ML BOTTLE TP SCH ×3 (09:35→21:00)
[2022-09-08] MEDS: SULFAMETHE/TRIMETH 20 ML LIQUID UDC GT SCH ×2 (09:35→21:59)
[2022-09-08] MEDS: SERTRALINE 25MG TABLET GT SCH (12:51)
[2022-09-08] MEDS: GLUCERNA 1.2 1000ML LIQUID GT PRN (13:49)
[2022-09-08] MEDS: ASCORBIC ACID 500 MG TABLET GT SCH (21:00)
[2022-09-08] MEDS: ESTROGENS,CONJU VAGINAL CREAM 42.5 GM TUBE VG SCH (21:00)
[2022-09-08] MEDS: MULTIVIT, IRON, MIN NO. 8, FA TABLET GT SCH (21:00)
[2022-09-08] MEDS: SIMVASTATIN 10 MG TABLET GT SCH (21:00)
[2022-09-08] MEDS: TEMAZEPAM 7.5 MG CAPSULE GT PRN (22:12)
[2022-09-09] VITALS (17 sets, daily range): TEMP 97.8–99.5; O2SAT 97–98
[2022-09-09] MEDS: CEFIDEROCOL IV SCH ×3 (02:00→18:57)
[2022-09-09] MEDS: ALBUTEROL SULFATE 2.5 MG/3 ML NEBU NEB SCH ×5 (03:30→23:48)
[2022-09-09] MEDS: IPRATROPIUM BROMIDE 0.5 MG/2.5 ML NEBU NEB SCH ×5 (03:30→23:40)
[2022-09-09] MEDS: HYDROCODONE/APAP 10-325 MG TABLET GT PRN (04:14)
[2022-09-09] MEDS: OMEGA-3 FATTY ACIDS/FISH OIL CAPSULE GT SCH ×2 (05:40→17:53)
[2022-09-09] MEDS: ARGININE/GLUTAMINE/CALCIUM BMB 1 EACH POWD.PACK GT SCH ×2 (05:41→17:53)
[2022-09-09] MEDS: PROTEIN SUPPLEMENT (PROSTAT) 30 ML LIQUID GT SCH ×3 (05:41→22:09)
[2022-09-09] MEDS: BACLOFEN 10 MG TABLET GT SCH ×3 (05:41→17:53)
[2022-09-09] MEDS: OMEPRAZOLE 20 MG CAPSULE.DR GT SCH (05:41)
[2022-09-09] MEDS: MIDODRINE HCL 5 MG TABLET GT SCH ×3 (05:41→22:09)
[2022-09-09 06:54] LABS: ALBUMIN 1.9 g/dL (3.4-5.0); BILIRUBIN,TOTAL 0.7 mg/dL (0.2-1.0); CALCIUM 9.1 mg/dL (8.5-10.1); CREATININE 1.2 mg/dL (0.6-1.3); POTASSIUM 4.4 mmol/L (3.5-5.1); TOTAL PROTEIN, SERUM 8.6 g/dL (6.4-8.2)
[2022-09-09] MEDS: ACETAMINOPHEN 650 MG/20.3 ML LIQUID UDC GT SCH ×2 (08:30→20:30)
[2022-09-09] MEDS: ACIDOPHILUS/BULGARICUS CHEW TAB GT SCH ×2 (09:00→21:00)
[2022-09-09] MEDS: SULFAMETHE/TRIMETH 20 ML LIQUID UDC GT SCH ×2 (09:00→21:00)
[2022-09-09] MEDS: SODIUM HYPOCHLORITE 0.125% (QUARTER STRENGTH) 473 ML BOTTLE TP SCH ×3 (09:00→21:00)
[2022-09-09] MEDS: REMEDY ESSENTIAL ZINC PASTE 113 GM TP SCH ×3 (09:00→21:00)
[2022-09-09] MEDS: APIXABAN 5 MG TABLET GT SCH ×2 (09:00→21:00)
[2022-09-09] MEDS: HYDROGEN PEROXIDE 3% 118 ML BOTTLE TP SCH ×2 (09:00→23:37)
[2022-09-09] MEDS: SERTRALINE 25MG TABLET GT SCH (12:00)
[2022-09-09] MEDS: ESTROGENS,CONJU VAGINAL CREAM 42.5 GM TUBE VG SCH (21:00)
[2022-09-09] MEDS: SIMVASTATIN 10 MG TABLET GT SCH (21:00)
[2022-09-09] MEDS: MULTIVIT, IRON, MIN NO. 8, FA TABLET GT SCH (21:00)
[2022-09-09] MEDS: ASCORBIC ACID 500 MG TABLET GT SCH (21:00)
[2022-09-09] MEDS: TEMAZEPAM 7.5 MG CAPSULE GT PRN (22:00)
[2022-09-10] VITALS (17 sets, daily range): TEMP 97–99.4; O2SAT 97–98
[2022-09-10] MEDS: CEFIDEROCOL IV SCH ×3 (02:00→18:00)
[2022-09-10] MEDS: HYDROCODONE/APAP 10-325 MG TABLET GT PRN ×2 (03:30→19:15)
[2022-09-10] MEDS: IPRATROPIUM BROMIDE 0.5 MG/2.5 ML NEBU NEB SCH ×5 (05:01→20:57)
[2022-09-10] MEDS: ALBUTEROL SULFATE 2.5 MG/3 ML NEBU NEB SCH ×5 (05:02→20:58)
[2022-09-10] MEDS: BACLOFEN 10 MG TABLET GT SCH ×5 (05:03→23:05)
[2022-09-10] MEDS: ARGININE/GLUTAMINE/CALCIUM BMB 1 EACH POWD.PACK GT SCH ×2 (05:03→18:08)
[2022-09-10] MEDS: OMEPRAZOLE 20 MG CAPSULE.DR GT SCH (05:03)
[2022-09-10] MEDS: OMEGA-3 FATTY ACIDS/FISH OIL CAPSULE GT SCH ×2 (05:03→18:07)
[2022-09-10] MEDS: PROTEIN SUPPLEMENT (PROSTAT) 30 ML LIQUID GT SCH ×3 (05:04→21:20)
[2022-09-10] MEDS: MIDODRINE HCL 5 MG TABLET GT SCH ×3 (05:04→21:20)
[2022-09-10] MEDS: HYDROGEN PEROXIDE 3% 118 ML BOTTLE TP SCH ×2 (07:40→22:00)
[2022-09-10] MEDS: ACETAMINOPHEN 650 MG/20.3 ML LIQUID UDC GT SCH ×2 (08:54→21:19)
[2022-09-10] MEDS: APIXABAN 5 MG TABLET GT SCH ×2 (08:58→21:00)
[2022-09-10] MEDS: ACIDOPHILUS/BULGARICUS CHEW TAB GT SCH ×2 (09:00→21:19)
[2022-09-10] MEDS: SODIUM HYPOCHLORITE 0.125% (QUARTER STRENGTH) 473 ML BOTTLE TP SCH ×3 (09:00→21:20)
[2022-09-10] MEDS: SULFAMETHE/TRIMETH 20 ML LIQUID UDC GT SCH ×2 (09:03→21:20)
[2022-09-10] MEDS: REMEDY ESSENTIAL ZINC PASTE 113 GM TP SCH ×3 (09:03→21:20)
[2022-09-10] MEDS: SERTRALINE 25MG TABLET GT SCH (12:00)
[2022-09-10] MEDS: ACETAMINOPHEN 650 MG/20 ML UDC- SA PATIENTS-PAIN ONLY GT PRN (18:10)
[2022-09-10] MEDS: GLUCERNA 1.2 1000ML LIQUID GT PRN (21:02)
[2022-09-10] MEDS: TEMAZEPAM 7.5 MG CAPSULE GT PRN (21:02)
[2022-09-10] MEDS: SIMVASTATIN 10 MG TABLET GT SCH (21:20)
[2022-09-10] MEDS: ESTROGENS,CONJU VAGINAL CREAM 42.5 GM TUBE VG SCH (21:20)
[2022-09-10] MEDS: ASCORBIC ACID 500 MG TABLET GT SCH (21:20)
[2022-09-10] MEDS: MULTIVIT, IRON, MIN NO. 8, FA TABLET GT SCH (21:20)
[2022-09-11] VITALS (19 sets, daily range): TEMP 97.8–99.1; O2SAT 97–99
[2022-09-11] MEDS: ALBUTEROL SULFATE 2.5 MG/3 ML NEBU NEB SCH ×7 (00:11→23:23)
[2022-09-11] MEDS: IPRATROPIUM BROMIDE 0.5 MG/2.5 ML NEBU NEB SCH ×7 (00:11→23:23)
[2022-09-11] MEDS: CEFIDEROCOL IV SCH ×3 (01:54→18:52)
[2022-09-11] MEDS: HYDROCODONE/APAP 10-325 MG TABLET GT PRN (03:45)
[2022-09-11] MEDS: OMEGA-3 FATTY ACIDS/FISH OIL CAPSULE GT SCH ×2 (05:16→17:26)
[2022-09-11] MEDS: MIDODRINE HCL 5 MG TABLET GT SCH ×3 (05:16→22:10)
[2022-09-11] MEDS: OMEPRAZOLE 20 MG CAPSULE.DR GT SCH (05:16)
[2022-09-11] MEDS: BACLOFEN 10 MG TABLET GT SCH ×3 (05:16→17:26)
[2022-09-11] MEDS: PROTEIN SUPPLEMENT (PROSTAT) 30 ML LIQUID GT SCH ×3 (05:16→22:10)
[2022-09-11] MEDS: ARGININE/GLUTAMINE/CALCIUM BMB 1 EACH POWD.PACK GT SCH ×2 (05:16→17:26)
[2022-09-11] MEDS: ACETAMINOPHEN 650 MG/20.3 ML LIQUID UDC GT SCH ×2 (09:06→20:02)
[2022-09-11] MEDS: ACIDOPHILUS/BULGARICUS CHEW TAB GT SCH ×2 (09:10→20:03)
[2022-09-11] MEDS: REMEDY ESSENTIAL ZINC PASTE 113 GM TP SCH ×3 (09:19→20:08)
[2022-09-11] MEDS: SULFAMETHE/TRIMETH 20 ML LIQUID UDC GT SCH ×2 (09:19→20:05)
[2022-09-11] MEDS: HYDROGEN PEROXIDE 3% 118 ML BOTTLE TP SCH ×2 (09:43→23:22)
[2022-09-11] MEDS: SODIUM HYPOCHLORITE 0.125% (QUARTER STRENGTH) 473 ML BOTTLE TP SCH ×3 (10:00→21:00)
[2022-09-11] MEDS: APIXABAN 5 MG TABLET GT SCH (12:00)
[2022-09-11] MEDS: SERTRALINE 25MG TABLET GT SCH (12:42)
[2022-09-11] MEDS: MULTIVIT, IRON, MIN NO. 8, FA TABLET GT SCH (20:06)
[2022-09-11] MEDS: SIMVASTATIN 10 MG TABLET GT SCH (20:07)
[2022-09-11] MEDS: ASCORBIC ACID 500 MG TABLET GT SCH (20:07)
[2022-09-11] MEDS: ESTROGENS,CONJU VAGINAL CREAM 42.5 GM TUBE VG SCH (21:00)
[2022-09-12] VITALS (14 sets, daily range): TEMP 98.8; O2SAT 97–99
[2022-09-12] MEDS: GLUCERNA 1.2 1000ML LIQUID GT PRN (01:53)
[2022-09-12] MEDS: CEFIDEROCOL IV SCH ×3 (02:00→18:52)
[2022-09-12] MEDS: IPRATROPIUM BROMIDE 0.5 MG/2.5 ML NEBU NEB SCH ×5 (04:15→19:06)
[2022-09-12] MEDS: ALBUTEROL SULFATE 2.5 MG/3 ML NEBU NEB SCH ×5 (04:15→19:06)
[2022-09-12] MEDS: HYDROCODONE/APAP 10-325 MG TABLET GT PRN (04:15)
[2022-09-12] MEDS: OMEPRAZOLE 20 MG CAPSULE.DR GT SCH (05:24)
[2022-09-12] MEDS: OMEGA-3 FATTY ACIDS/FISH OIL CAPSULE GT SCH ×2 (05:24→18:43)
[2022-09-12] MEDS: BACLOFEN 10 MG TABLET GT SCH ×4 (05:24→18:43)
[2022-09-12] MEDS: ARGININE/GLUTAMINE/CALCIUM BMB 1 EACH POWD.PACK GT SCH ×2 (05:24→18:43)
[2022-09-12] MEDS: MIDODRINE HCL 5 MG TABLET GT SCH ×3 (05:25→21:34)
[2022-09-12] MEDS: PROTEIN SUPPLEMENT (PROSTAT) 30 ML LIQUID GT SCH ×3 (05:25→21:34)
[2022-09-12 06:44] LABS: BASOPHILS % (AUTO) 0.7 % (0.0-2.0); EOSINOPHILS # (AUTO) 0.4 K/uL (0.0-0.7); EOSINOPHILS % (AUTO) 6.2 % (0.0-7.0); HEMATOCRIT 24.8 % (31.2-41.9); HEMOGLOBIN 7.7 g/dL (10.9-14.3); LYMPHOCYTES # (AUTO) 1.5 K/uL (0.8-4.8); LYMPHOCYTES % (AUTO) 22.9 % (20.5-51.5); MEAN CORPUSCULAR HEMOGLOBIN 25.9 uug (24.7-32.8); MEAN CORPUSCULAR HGB CONC 31 g/dL (32.3-35.6); MEAN CORPUSCULAR VOLUME 83.5 fL (75.5-95.3); MONOCYTES # (AUTO) 0.9 K/uL (0.1-1.30); MONOCYTES % (AUTO) 13.6 % (0.0-11.0); NEUTROPHILS # (AUTO) 3.7 K/uL (1.8-8.9); NEUTROPHILS % (AUTO) 56.6 % (38.5-71.5); PLATELET COUNT (AUTO) 212 K/uL (179-408); RED BLOOD CELL COUNT(AUTO) 2.97 MIL/uL (3.63-4.92); RED CELL DISTRIBUTION WIDTH 20.6 % (12.3-17.7); WHITE BLOOD COUNT (AUTO) 6.6 K/uL (3.8-11.8)
[2022-09-12 06:57] LABS: DIFFERENTIAL COMMENT 1
[2022-09-12 07:50] LABS: ALBUMIN 1.8 g/dL (3.4-5.0); BILIRUBIN,TOTAL 0.2 mg/dL (0.2-1.0); C-REACTIVE PROTEIN 13.9 mg/dL (0.0-0.9); CALCIUM 8.9 mg/dL (8.5-10.1); CREATININE 1.1 mg/dL (0.6-1.3); POTASSIUM 4.1 mmol/L (3.5-5.1); TOTAL PROTEIN, SERUM 8.4 g/dL (6.4-8.2)
[2022-09-12] MEDS: HYDROGEN PEROXIDE 3% 118 ML BOTTLE TP SCH ×2 (07:50→21:17)
[2022-09-12] MEDS: ACETAMINOPHEN 650 MG/20.3 ML LIQUID UDC GT SCH ×2 (09:20→20:30)
[2022-09-12] MEDS: ACIDOPHILUS/BULGARICUS CHEW TAB GT SCH ×2 (09:20→21:31)
[2022-09-12] MEDS: SULFAMETHE/TRIMETH 20 ML LIQUID UDC GT SCH ×2 (09:20→21:32)
[2022-09-12] MEDS: REMEDY ESSENTIAL ZINC PASTE 113 GM TP SCH ×3 (09:22→21:34)
[2022-09-12] MEDS: SODIUM HYPOCHLORITE 0.125% (QUARTER STRENGTH) 473 ML BOTTLE TP SCH ×3 (09:22→21:33)
[2022-09-12 09:29] LABS: ERYTHROCYTE SEDIMENTATION RATE 140 MM/HR (0-20)
[2022-09-12] MEDS: SERTRALINE 25MG TABLET GT SCH (12:56)
[2022-09-12] MEDS: MULTIVIT, IRON, MIN NO. 8, FA TABLET GT SCH (21:32)
[2022-09-12] MEDS: SIMVASTATIN 10 MG TABLET GT SCH (21:33)
[2022-09-12] MEDS: ASCORBIC ACID 500 MG TABLET GT SCH (21:33)
[2022-09-12] MEDS: ESTROGENS,CONJU VAGINAL CREAM 42.5 GM TUBE VG SCH (21:34)
[2022-09-12] MEDS: TEMAZEPAM 7.5 MG CAPSULE GT PRN (21:36)
[2022-09-13] VITALS (14 sets, daily range): TEMP 97.8–98.2; O2SAT 90–99
[2022-09-13] MEDS: IPRATROPIUM BROMIDE 0.5 MG/2.5 ML NEBU NEB SCH ×7 (00:19→23:55)
[2022-09-13] MEDS: ALBUTEROL SULFATE 2.5 MG/3 ML NEBU NEB SCH ×7 (00:19→23:55)
[2022-09-13] MEDS: CEFIDEROCOL IV SCH ×3 (02:04→18:14)
[2022-09-13] MEDS: GLUCERNA 1.2 1000ML LIQUID GT PRN (05:00)
[2022-09-13] MEDS: MIDODRINE HCL 5 MG TABLET GT SCH ×3 (05:55→20:58)
[2022-09-13] MEDS: OMEPRAZOLE 20 MG CAPSULE.DR GT SCH (05:55)
[2022-09-13] MEDS: OMEGA-3 FATTY ACIDS/FISH OIL CAPSULE GT SCH ×2 (05:55→18:00)
[2022-09-13] MEDS: ARGININE/GLUTAMINE/CALCIUM BMB 1 EACH POWD.PACK GT SCH ×2 (05:55→18:00)
[2022-09-13] MEDS: PROTEIN SUPPLEMENT (PROSTAT) 30 ML LIQUID GT SCH ×3 (05:55→21:01)
[2022-09-13] MEDS: BACLOFEN 10 MG TABLET GT SCH ×4 (05:55→18:00)
[2022-09-13] MEDS: ACETAMINOPHEN 650 MG/20.3 ML LIQUID UDC GT SCH ×2 (08:02→20:55)
[2022-09-13] MEDS: ACIDOPHILUS/BULGARICUS CHEW TAB GT SCH ×2 (08:03→20:56)
[2022-09-13] MEDS: SULFAMETHE/TRIMETH 20 ML LIQUID UDC GT SCH ×2 (08:05→20:56)
[2022-09-13] MEDS: REMEDY ESSENTIAL ZINC PASTE 113 GM TP SCH ×3 (08:05→20:58)
[2022-09-13] MEDS: SODIUM HYPOCHLORITE 0.125% (QUARTER STRENGTH) 473 ML BOTTLE TP SCH ×3 (08:05→20:58)
[2022-09-13] MEDS: HYDROGEN PEROXIDE 3% 118 ML BOTTLE TP SCH ×2 (09:10→19:30)
[2022-09-13] MEDS: SERTRALINE 25MG TABLET GT SCH (12:46)
[2022-09-13] MEDS: SIMVASTATIN 10 MG TABLET GT SCH (20:57)
[2022-09-13] MEDS: ASCORBIC ACID 500 MG TABLET GT SCH (20:57)
[2022-09-13] MEDS: MULTIVIT, IRON, MIN NO. 8, FA TABLET GT SCH (20:57)
[2022-09-13] MEDS: ESTROGENS,CONJU VAGINAL CREAM 42.5 GM TUBE VG SCH (20:58)
[2022-09-13] MEDS: TEMAZEPAM 7.5 MG CAPSULE GT PRN (21:01)
[2022-09-14] VITALS (16 sets, daily range): TEMP 98–98.6; O2SAT 90–99
[2022-09-14] MEDS: CEFIDEROCOL IV SCH ×3 (02:01→18:20)
[2022-09-14] MEDS: ALBUTEROL SULFATE 2.5 MG/3 ML NEBU NEB SCH ×5 (03:33→19:23)
[2022-09-14] MEDS: IPRATROPIUM BROMIDE 0.5 MG/2.5 ML NEBU NEB SCH ×5 (03:33→19:22)
[2022-09-14] MEDS: PROTEIN SUPPLEMENT (PROSTAT) 30 ML LIQUID GT SCH ×3 (05:45→21:16)
[2022-09-14] MEDS: ARGININE/GLUTAMINE/CALCIUM BMB 1 EACH POWD.PACK GT SCH ×2 (05:45→17:46)
[2022-09-14] MEDS: OMEGA-3 FATTY ACIDS/FISH OIL CAPSULE GT SCH ×2 (05:45→17:46)
[2022-09-14] MEDS: MIDODRINE HCL 5 MG TABLET GT SCH ×3 (05:45→21:16)
[2022-09-14] MEDS: OMEPRAZOLE 20 MG CAPSULE.DR GT SCH (05:45)
[2022-09-14] MEDS: BACLOFEN 10 MG TABLET GT SCH ×4 (05:45→17:46)
[2022-09-14] MEDS: GLUCERNA 1.2 1000ML LIQUID GT PRN (05:46)
[2022-09-14] MEDS: ACETAMINOPHEN 650 MG/20.3 ML LIQUID UDC GT SCH ×2 (08:55→21:12)
[2022-09-14] MEDS: ACIDOPHILUS/BULGARICUS CHEW TAB GT SCH ×2 (08:56→21:13)
[2022-09-14] MEDS: SULFAMETHE/TRIMETH 20 ML LIQUID UDC GT SCH ×2 (08:57→21:13)
[2022-09-14] MEDS: REMEDY ESSENTIAL ZINC PASTE 113 GM TP SCH ×3 (08:58→21:15)
[2022-09-14] MEDS: SODIUM HYPOCHLORITE 0.125% (QUARTER STRENGTH) 473 ML BOTTLE TP SCH ×3 (08:58→21:15)
[2022-09-14] MEDS: HYDROGEN PEROXIDE 3% 118 ML BOTTLE TP SCH ×2 (09:20→22:35)
[2022-09-14] MEDS: SERTRALINE 25MG TABLET GT SCH (12:48)
[2022-09-14] MEDS: HYDROCODONE/APAP 10-325 MG TABLET GT PRN (19:50)
[2022-09-14] MEDS ORDERED: APIXABAN 5 MG TABLET GT SCH ×2 (21:00)
[2022-09-14] MEDS: MULTIVIT, IRON, MIN NO. 8, FA TABLET GT SCH (21:14)
[2022-09-14] MEDS: SIMVASTATIN 10 MG TABLET GT SCH (21:15)
[2022-09-14] MEDS: ASCORBIC ACID 500 MG TABLET GT SCH (21:15)
[2022-09-14] MEDS: ESTROGENS,CONJU VAGINAL CREAM 42.5 GM TUBE VG SCH (21:15)
[2022-09-14] MEDS: TEMAZEPAM 7.5 MG CAPSULE GT PRN (21:22)
[2022-09-15] VITALS (19 sets, daily range): BP systolic 114; BP diastolic 62; TEMP 97.9–98.9; O2SAT 98–100
[2022-09-15] MEDS: IPRATROPIUM BROMIDE 0.5 MG/2.5 ML NEBU NEB SCH ×6 (00:18→19:10)
[2022-09-15] MEDS: ALBUTEROL SULFATE 2.5 MG/3 ML NEBU NEB SCH ×6 (00:18→19:10)
[2022-09-15] MEDS: CEFIDEROCOL IV SCH ×3 (01:42→18:52)
[2022-09-15] MEDS: HYDROCODONE/APAP 10-325 MG TABLET GT PRN ×2 (04:20→22:30)
[2022-09-15] MEDS: GLUCERNA 1.2 1000ML LIQUID GT PRN (04:30)
[2022-09-15 04:50] LABS: *BLOOD, URINE 3+ (NEGATIVE); *KETONES,URINE TRACE (NEGATIVE); LEUKOCYTE ESTERASE ,URINE 3+ (NEGATIVE); NITRITE, URINE NEGATIVE (NEGATIVE); UGLUCOSE NEGATIVE (NEGATIVE)
[2022-09-15 04:55] LABS: *BILIRUBIN,URIN 1+ (NEGATIVE); *PROTEIN,URINE 3+ (NEGATIVE)
[2022-09-15 04:57] LABS: *CLARITY,URINE CLOUDY (CLEAR); *COLOR,URINE RED (YELLOW)
[2022-09-15 05:07] LABS: BACTERIA,URINE MANY /HPF (NONE SEEN); RBC,URINE TNTC /HPF (0-3); WBC,URINE TNTC /HPF (0-3)
[2022-09-15] MEDS: BACLOFEN 10 MG TABLET GT SCH ×4 (05:07→17:40)
[2022-09-15] MEDS: ARGININE/GLUTAMINE/CALCIUM BMB 1 EACH POWD.PACK GT SCH ×2 (05:07→17:39)
[2022-09-15] MEDS: OMEGA-3 FATTY ACIDS/FISH OIL CAPSULE GT SCH ×2 (05:07→17:38)
[2022-09-15] MEDS: OMEPRAZOLE 20 MG CAPSULE.DR GT SCH (05:07)
[2022-09-15 05:08] LABS: SQUAMOUS EPITHELIAL CELL,UR FEW /HPF (NONE SEEN)
[2022-09-15] MEDS: PROTEIN SUPPLEMENT (PROSTAT) 30 ML LIQUID GT SCH ×3 (05:13→22:00)
[2022-09-15] MEDS: MIDODRINE HCL 5 MG TABLET GT SCH ×3 (05:13→22:00)
[2022-09-15 07:12] LABS: BASOPHILS # (AUTO) 0.1 K/UL (0.0-0.2); BASOPHILS % (AUTO) 0.8 % (0.0-2.0); DIFFERENTIAL COMMENT 0; EOSINOPHILS # (AUTO) 0.6 K/uL (0.0-0.7); EOSINOPHILS % (AUTO) 6.9 % (0.0-7.0); HEMATOCRIT 24.8 % (31.2-41.9); HEMOGLOBIN 7.8 g/dL (10.9-14.3); LYMPHOCYTES # (AUTO) 1.7 K/uL (0.8-4.8); LYMPHOCYTES % (AUTO) 21.5 % (20.5-51.5); MEAN CORPUSCULAR HEMOGLOBIN 26.1 uug (24.7-32.8); MEAN CORPUSCULAR HGB CONC 31 g/dL (32.3-35.6); MEAN CORPUSCULAR VOLUME 83.5 fL (75.5-95.3); MONOCYTES # (AUTO) 1.1 K/uL (0.1-1.30); NEUTROPHILS # (AUTO) 4.5 K/uL (1.8-8.9); NEUTROPHILS % (AUTO) 56.8 % (38.5-71.5); PLATELET COUNT (AUTO) 264 K/uL (179-408); RED BLOOD CELL COUNT(AUTO) 2.98 MIL/uL (3.63-4.92); RED CELL DISTRIBUTION WIDTH 20.8 % (12.3-17.7); WHITE BLOOD COUNT (AUTO) 7.9 K/uL (3.8-11.8)
[2022-09-15] MEDS: HYDROGEN PEROXIDE 3% 118 ML BOTTLE TP SCH ×2 (07:17→22:17)
[2022-09-15 07:56] LABS: ALBUMIN 1.9 g/dL (3.4-5.0); BILIRUBIN,TOTAL 0.7 mg/dL (0.2-1.0); CALCIUM 8.6 mg/dL (8.5-10.1); CREATININE 1.3 mg/dL (0.6-1.3); POTASSIUM 4.3 mmol/L (3.5-5.1); TOTAL PROTEIN, SERUM 8.6 g/dL (6.4-8.2)
[2022-09-15] MEDS: ACETAMINOPHEN 650 MG/20.3 ML LIQUID UDC GT SCH ×2 (08:30→20:54)
[2022-09-15] MEDS: ACIDOPHILUS/BULGARICUS CHEW TAB GT SCH ×2 (09:00→20:54)
[2022-09-15] MEDS: SODIUM HYPOCHLORITE 0.125% (QUARTER STRENGTH) 473 ML BOTTLE TP SCH ×3 (09:00→20:56)
[2022-09-15] MEDS: REMEDY ESSENTIAL ZINC PASTE 113 GM TP SCH ×3 (09:00→20:57)
[2022-09-15 10:31] LABS: BASOPHILS # (AUTO) 0.1 K/UL (0.0-0.2); EOSINOPHILS # (AUTO) 0.6 K/uL (0.0-0.7); EOSINOPHILS % (AUTO) 7.8 % (0.0-7.0); HEMATOCRIT 27.6 % (31.2-41.9); HEMOGLOBIN 8.4 g/dL (10.9-14.3); LYMPHOCYTES # (AUTO) 1.9 K/uL (0.8-4.8); LYMPHOCYTES % (AUTO) 24.9 % (20.5-51.5); MEAN CORPUSCULAR HGB CONC 31 g/dL (32.3-35.6); MEAN CORPUSCULAR VOLUME 85.1 fL (75.5-95.3); MONOCYTES # (AUTO) 1.2 K/uL (0.1-1.30); MONOCYTES % (AUTO) 16.3 % (0.0-11.0); NEUTROPHILS # (AUTO) 3.7 K/uL (1.8-8.9); PLATELET COUNT (AUTO) 280 K/uL (179-408); RED BLOOD CELL COUNT(AUTO) 3.25 MIL/uL (3.63-4.92); RED CELL DISTRIBUTION WIDTH 21.2 % (12.3-17.7); WHITE BLOOD COUNT (AUTO) 7.5 K/uL (3.8-11.8)
[2022-09-15 10:44] LABS: DIFFERENTIAL COMMENT 1
[2022-09-15 10:51] LABS: ALBUMIN 1.8 g/dL (3.4-5.0); BILIRUBIN,TOTAL 0.3 mg/dL (0.2-1.0); CALCIUM 8.5 mg/dL (8.5-10.1); CREATININE 1.2 mg/dL (0.6-1.3); POTASSIUM 4.6 mmol/L (3.5-5.1); TOTAL PROTEIN, SERUM 8.5 g/dL (6.4-8.2)
[2022-09-15] MEDS: SERTRALINE 25MG TABLET GT SCH (12:00)
[2022-09-15] MEDS: VANCOMYCIN IV 1,000 MG in IV DEXTROSE 5% 250 ML IV SCH (13:00)
[2022-09-15] MEDS ORDERED: MEROPENEM 1 G in IV NORMAL SALINE 100 ML IV SCH (14:00)
[2022-09-15 19:08] LABS: NEUTROPHILS % (MANUAL) 0 % (42-75)
[2022-09-15 19:49] LABS: BAND % (MANUAL) 12 % (0-10); EOSINOPHILS % (MANUAL) 6 % (0-8); LYMPHOCYTES % (MANUAL) 27 % (20-40); MONOCYTES % (MANUAL) 14 % (2-10); NEUTROPHILS % (MANUAL) 41 % (42-75); PLATELET ESTIMATE ADEQUATE
[2022-09-15 19:50] LABS: ANISOCYTOSIS 1+
[2022-09-15] MEDS: SIMVASTATIN 10 MG TABLET GT SCH (20:55)
[2022-09-15] MEDS: ASCORBIC ACID 500 MG TABLET GT SCH (20:55)
[2022-09-15] MEDS: MULTIVIT, IRON, MIN NO. 8, FA TABLET GT SCH (20:55)
[2022-09-15] MEDS: ESTROGENS,CONJU VAGINAL CREAM 42.5 GM TUBE VG SCH (20:57)
[2022-09-15] MEDS: TEMAZEPAM 7.5 MG CAPSULE GT PRN (21:00)
[2022-09-16] VITALS (16 sets, daily range): BP systolic 107; BP diastolic 48; TEMP 98–98.3; O2SAT 99–100
[2022-09-16] MEDS: ALBUTEROL SULFATE 2.5 MG/3 ML NEBU NEB SCH ×7 (00:17→23:31)
[2022-09-16] MEDS: IPRATROPIUM BROMIDE 0.5 MG/2.5 ML NEBU NEB SCH ×7 (00:17→23:31)
[2022-09-16] MEDS: CEFIDEROCOL IV SCH ×3 (02:57→17:17)
[2022-09-16] MEDS: OMEGA-3 FATTY ACIDS/FISH OIL CAPSULE GT SCH ×2 (05:15→17:11)
[2022-09-16] MEDS: OMEPRAZOLE 20 MG CAPSULE.DR GT SCH (05:15)
[2022-09-16] MEDS: ARGININE/GLUTAMINE/CALCIUM BMB 1 EACH POWD.PACK GT SCH ×2 (05:15→17:11)
[2022-09-16] MEDS: BACLOFEN 10 MG TABLET GT SCH ×4 (05:15→17:11)
[2022-09-16] MEDS: PROTEIN SUPPLEMENT (PROSTAT) 30 ML LIQUID GT SCH ×3 (05:16→22:00)
[2022-09-16] MEDS: MIDODRINE HCL 5 MG TABLET GT SCH ×3 (05:16→22:00)
[2022-09-16] MEDS: ACETAMINOPHEN 650 MG/20.3 ML LIQUID UDC GT SCH ×2 (08:39→20:30)
[2022-09-16] MEDS: SODIUM HYPOCHLORITE 0.125% (QUARTER STRENGTH) 473 ML BOTTLE TP SCH ×3 (08:40→21:00)
[2022-09-16] MEDS: ACIDOPHILUS/BULGARICUS CHEW TAB GT SCH ×2 (08:40→21:00)
[2022-09-16] MEDS: REMEDY ESSENTIAL ZINC PASTE 113 GM TP SCH ×3 (08:40→21:00)
[2022-09-16] MEDS: HYDROGEN PEROXIDE 3% 118 ML BOTTLE TP SCH ×2 (09:26→19:20)
[2022-09-16] MEDS: SERTRALINE 25MG TABLET GT SCH (12:58)
[2022-09-16] MEDS: VANCOMYCIN IV 1,000 MG in IV DEXTROSE 5% 250 ML IV SCH (14:03)
[2022-09-16] MEDS: GLUCERNA 1.2 1000ML LIQUID GT PRN (17:18)
[2022-09-16] MEDS: HYDROCODONE/APAP 10-325 MG TABLET GT PRN (17:34)
[2022-09-16] MEDS: ASCORBIC ACID 500 MG TABLET GT SCH (21:00)
[2022-09-16] MEDS: ESTROGENS,CONJU VAGINAL CREAM 42.5 GM TUBE VG SCH (21:00)
[2022-09-16] MEDS: MULTIVIT, IRON, MIN NO. 8, FA TABLET GT SCH (21:00)
[2022-09-16] MEDS: SIMVASTATIN 10 MG TABLET GT SCH (21:00)
[2022-09-17] VITALS (14 sets, daily range): TEMP 97–98; O2SAT 96–99
[2022-09-17] MEDS: BACLOFEN 10 MG TABLET GT SCH ×4 (00:12→18:00)
[2022-09-17] MEDS: CEFIDEROCOL IV SCH ×3 (02:40→18:42)
[2022-09-17] MEDS: ALBUTEROL SULFATE 2.5 MG/3 ML NEBU NEB SCH ×5 (03:42→19:30)
[2022-09-17] MEDS: IPRATROPIUM BROMIDE 0.5 MG/2.5 ML NEBU NEB SCH ×5 (03:42→19:30)
[2022-09-17] MEDS: HYDROCODONE/APAP 10-325 MG TABLET GT PRN (05:19)
[2022-09-17] MEDS: PROTEIN SUPPLEMENT (PROSTAT) 30 ML LIQUID GT SCH ×3 (06:00→21:00)
[2022-09-17] MEDS: OMEGA-3 FATTY ACIDS/FISH OIL CAPSULE GT SCH ×2 (06:00→18:00)
[2022-09-17] MEDS: MIDODRINE HCL 5 MG TABLET GT SCH ×3 (06:00→21:00)
[2022-09-17] MEDS: ARGININE/GLUTAMINE/CALCIUM BMB 1 EACH POWD.PACK GT SCH ×2 (06:00→18:00)
[2022-09-17] MEDS: OMEPRAZOLE 20 MG CAPSULE.DR GT SCH (06:00)
[2022-09-17] MEDS: HYDROGEN PEROXIDE 3% 118 ML BOTTLE TP SCH ×2 (08:03→19:30)
[2022-09-17] MEDS: ACETAMINOPHEN 650 MG/20.3 ML LIQUID UDC GT SCH ×2 (08:30→20:58)
[2022-09-17] MEDS: SODIUM HYPOCHLORITE 0.125% (QUARTER STRENGTH) 473 ML BOTTLE TP SCH ×3 (09:39→20:58)
[2022-09-17] MEDS: ACIDOPHILUS/BULGARICUS CHEW TAB GT SCH ×2 (09:39→20:58)
[2022-09-17] MEDS: REMEDY ESSENTIAL ZINC PASTE 113 GM TP SCH ×3 (09:39→20:58)
[2022-09-17] MEDS: SERTRALINE 25MG TABLET GT SCH (12:18)
[2022-09-17] MEDS: VANCOMYCIN IV 1,000 MG in IV DEXTROSE 5% 250 ML IV SCH (13:59)
[2022-09-17] MEDS: MULTIVIT, IRON, MIN NO. 8, FA TABLET GT SCH (20:58)
[2022-09-17] MEDS: ESTROGENS,CONJU VAGINAL CREAM 42.5 GM TUBE VG SCH (20:58)
[2022-09-17] MEDS: SIMVASTATIN 10 MG TABLET GT SCH (20:58)
[2022-09-17] MEDS: ASCORBIC ACID 500 MG TABLET GT SCH (20:58)
[2022-09-18] VITALS (15 sets, daily range): TEMP 98.6–100.7; O2SAT 96–99
[2022-09-18] MEDS: IPRATROPIUM BROMIDE 0.5 MG/2.5 ML NEBU NEB SCH ×7 (00:10→23:31)
[2022-09-18] MEDS: ALBUTEROL SULFATE 2.5 MG/3 ML NEBU NEB SCH ×7 (00:10→23:31)
[2022-09-18] MEDS: BACLOFEN 10 MG TABLET GT SCH ×4 (00:41→17:50)
[2022-09-18] MEDS: CEFIDEROCOL IV SCH ×3 (02:00→17:29)
[2022-09-18] MEDS: HYDROCODONE/APAP 10-325 MG TABLET GT PRN (04:46)
[2022-09-18] MEDS: MIDODRINE HCL 5 MG TABLET GT SCH ×3 (06:00→21:46)
[2022-09-18] MEDS: OMEPRAZOLE 20 MG CAPSULE.DR GT SCH (06:09)
[2022-09-18] MEDS: ARGININE/GLUTAMINE/CALCIUM BMB 1 EACH POWD.PACK GT SCH ×2 (06:09→17:50)
[2022-09-18] MEDS: OMEGA-3 FATTY ACIDS/FISH OIL CAPSULE GT SCH ×2 (06:09→17:50)
[2022-09-18] MEDS: PROTEIN SUPPLEMENT (PROSTAT) 30 ML LIQUID GT SCH ×3 (06:10→21:47)
[2022-09-18] MEDS: ACIDOPHILUS/BULGARICUS CHEW TAB GT SCH ×2 (08:40→21:46)
[2022-09-18] MEDS: ACETAMINOPHEN 650 MG/20.3 ML LIQUID UDC GT SCH ×2 (08:40→20:30)
[2022-09-18] MEDS: REMEDY ESSENTIAL ZINC PASTE 113 GM TP SCH ×3 (08:41→21:46)
[2022-09-18] MEDS: SODIUM HYPOCHLORITE 0.125% (QUARTER STRENGTH) 473 ML BOTTLE TP SCH ×3 (08:41→21:46)
[2022-09-18] MEDS: HYDROGEN PEROXIDE 3% 118 ML BOTTLE TP SCH ×2 (09:19→19:25)
[2022-09-18] MEDS: SERTRALINE 25MG TABLET GT SCH (12:49)
[2022-09-18] MEDS: VANCOMYCIN IV 1,000 MG in IV DEXTROSE 5% 250 ML IV SCH (13:00)
[2022-09-18 13:17] LABS: POTASSIUM 3.6 mmol/L (3.5-5.1); VANCOMYCIN,TROUGH 12.6 ug/mL (12.0-20.0)
[2022-09-18] MEDS: MULTIVIT, IRON, MIN NO. 8, FA TABLET GT SCH (21:46)
[2022-09-18] MEDS: ASCORBIC ACID 500 MG TABLET GT SCH (21:46)
[2022-09-18] MEDS: SIMVASTATIN 10 MG TABLET GT SCH (21:46)
[2022-09-18] MEDS: ESTROGENS,CONJU VAGINAL CREAM 42.5 GM TUBE VG SCH (21:46)
[2022-09-18] MEDS: TEMAZEPAM 7.5 MG CAPSULE GT PRN (22:06)
[2022-09-19] VITALS (12 sets, daily range): TEMP 98.9; O2SAT 97–99
[2022-09-19] MEDS: CEFIDEROCOL IV SCH ×3 (01:45→18:06)
[2022-09-19] MEDS: IPRATROPIUM BROMIDE 0.5 MG/2.5 ML NEBU NEB SCH ×6 (03:30→23:29)
[2022-09-19] MEDS: ALBUTEROL SULFATE 2.5 MG/3 ML NEBU NEB SCH ×6 (03:30→23:29)
[2022-09-19] MEDS: HYDROCODONE/APAP 10-325 MG TABLET GT PRN ×2 (04:30→18:18)
[2022-09-19] MEDS: GLUCERNA 1.2 1000ML LIQUID GT PRN (04:30)
[2022-09-19] MEDS: BACLOFEN 10 MG TABLET GT SCH ×4 (05:14→17:58)
[2022-09-19] MEDS: ARGININE/GLUTAMINE/CALCIUM BMB 1 EACH POWD.PACK GT SCH ×2 (05:14→17:57)
[2022-09-19] MEDS: OMEGA-3 FATTY ACIDS/FISH OIL CAPSULE GT SCH ×2 (05:14→17:59)
[2022-09-19] MEDS: OMEPRAZOLE 20 MG CAPSULE.DR GT SCH (05:14)
[2022-09-19] MEDS: PROTEIN SUPPLEMENT (PROSTAT) 30 ML LIQUID GT SCH ×3 (05:15→21:46)
[2022-09-19] MEDS: MIDODRINE HCL 5 MG TABLET GT SCH ×3 (05:15→21:46)
[2022-09-19 07:52] LABS: BASOPHILS # (AUTO) 0.1 K/UL (0.0-0.2); BASOPHILS % (AUTO) 0.9 % (0.0-2.0); EOSINOPHILS # (AUTO) 0.5 K/uL (0.0-0.7); EOSINOPHILS % (AUTO) 4.9 % (0.0-7.0); HEMATOCRIT 25.2 % (31.2-41.9); HEMOGLOBIN 7.6 g/dL (10.9-14.3); LYMPHOCYTES # (AUTO) 1.5 K/uL (0.8-4.8); LYMPHOCYTES % (AUTO) 14.8 % (20.5-51.5); MEAN CORPUSCULAR HEMOGLOBIN 25.4 uug (24.7-32.8); MEAN CORPUSCULAR HGB CONC 30 g/dL (32.3-35.6); MEAN CORPUSCULAR VOLUME 83.8 fL (75.5-95.3); MONOCYTES # (AUTO) 0.8 K/uL (0.1-1.30); MONOCYTES % (AUTO) 8.2 % (0.0-11.0); NEUTROPHILS % (AUTO) 71.2 % (38.5-71.5); PLATELET COUNT (AUTO) 316 K/uL (179-408); RED CELL DISTRIBUTION WIDTH 20.6 % (12.3-17.7); WHITE BLOOD COUNT (AUTO) 9.9 K/uL (3.8-11.8)
[2022-09-19 08:07] LABS: DIFFERENTIAL COMMENT 1
[2022-09-19 08:42] LABS: ALBUMIN 1.8 g/dL (3.4-5.0); BILIRUBIN,TOTAL 0.6 mg/dL (0.2-1.0); CREATININE 0.9 mg/dL (0.6-1.3); POTASSIUM 3.2 mmol/L (3.5-5.1); TOTAL PROTEIN, SERUM 8.3 g/dL (6.4-8.2)
[2022-09-19] MEDS: ACIDOPHILUS/BULGARICUS CHEW TAB GT SCH ×2 (08:52→21:45)
[2022-09-19] MEDS: SODIUM HYPOCHLORITE 0.125% (QUARTER STRENGTH) 473 ML BOTTLE TP SCH ×3 (08:52→21:46)
[2022-09-19] MEDS: HYDROGEN PEROXIDE 3% 118 ML BOTTLE TP SCH ×2 (08:53→21:43)
[2022-09-19] MEDS: REMEDY ESSENTIAL ZINC PASTE 113 GM TP SCH ×3 (08:53→21:46)
[2022-09-19] MEDS: ACETAMINOPHEN 650 MG/20.3 ML LIQUID UDC GT SCH ×2 (08:56→20:30)
[2022-09-19 09:38] LABS: C-REACTIVE PROTEIN 14.8 mg/dL (0.0-0.9)
[2022-09-19] MEDS: SERTRALINE 25MG TABLET GT SCH (12:08)
[2022-09-19] MEDS: VANCOMYCIN IV 1,000 MG in IV DEXTROSE 5% 250 ML IV SCH (13:10)
[2022-09-19] MEDS: TEMAZEPAM 7.5 MG CAPSULE GT PRN (21:00)
[2022-09-19] MEDS: ASCORBIC ACID 500 MG TABLET GT SCH (21:45)
[2022-09-19] MEDS: MULTIVIT, IRON, MIN NO. 8, FA TABLET GT SCH (21:45)
[2022-09-19] MEDS: ESTROGENS,CONJU VAGINAL CREAM 42.5 GM TUBE VG SCH (21:46)
[2022-09-19] MEDS: SIMVASTATIN 10 MG TABLET GT SCH (21:46)
[2022-09-19 23:34] LABS: ERYTHROCYTE SEDIMENTATION RATE 140 MM/HR (0-20)
[2022-09-20] VITALS (14 sets, daily range): TEMP 98.3–100.8; O2SAT 97–99
[2022-09-20] MEDS: GLUCERNA 1.2 1000ML LIQUID GT PRN (03:46)
[2022-09-20] MEDS: HYDROCODONE/APAP 10-325 MG TABLET GT PRN ×2 (04:01→12:49)
[2022-09-20] MEDS: IPRATROPIUM BROMIDE 0.5 MG/2.5 ML NEBU NEB SCH ×6 (04:01→23:04)
[2022-09-20] MEDS: ALBUTEROL SULFATE 2.5 MG/3 ML NEBU NEB SCH ×6 (04:02→23:04)
[2022-09-20] MEDS: ARGININE/GLUTAMINE/CALCIUM BMB 1 EACH POWD.PACK GT SCH ×2 (05:18→17:46)
[2022-09-20] MEDS: OMEGA-3 FATTY ACIDS/FISH OIL CAPSULE GT SCH ×2 (05:18→17:46)
[2022-09-20] MEDS: BACLOFEN 10 MG TABLET GT SCH ×4 (05:19→17:46)
[2022-09-20] MEDS: MIDODRINE HCL 5 MG TABLET GT SCH ×3 (05:19→21:21)
[2022-09-20] MEDS: OMEPRAZOLE 20 MG CAPSULE.DR GT SCH (05:19)
[2022-09-20] MEDS: PROTEIN SUPPLEMENT (PROSTAT) 30 ML LIQUID GT SCH ×3 (05:19→21:21)
[2022-09-20 06:55] LABS: BASOPHILS # (AUTO) 0.1 K/UL (0.0-0.2); BASOPHILS % (AUTO) 0.8 % (0.0-2.0); EOSINOPHILS # (AUTO) 0.6 K/uL (0.0-0.7); EOSINOPHILS % (AUTO) 5.8 % (0.0-7.0); HEMATOCRIT 24.4 % (31.2-41.9); LYMPHOCYTES # (AUTO) 1.6 K/uL (0.8-4.8); LYMPHOCYTES % (AUTO) 16.1 % (20.5-51.5); MEAN CORPUSCULAR HEMOGLOBIN 25.7 uug (24.7-32.8); MEAN CORPUSCULAR HGB CONC 31 g/dL (32.3-35.6); MEAN CORPUSCULAR VOLUME 84.3 fL (75.5-95.3); MONOCYTES # (AUTO) 0.8 K/uL (0.1-1.30); MONOCYTES % (AUTO) 8.2 % (0.0-11.0); NEUTROPHILS % (AUTO) 69.1 % (38.5-71.5); PLATELET COUNT (AUTO) 294 K/uL (179-408); RED BLOOD CELL COUNT(AUTO) 2.89 MIL/uL (3.63-4.92); WHITE BLOOD COUNT (AUTO) 10.1 K/uL (3.8-11.8)
[2022-09-20 07:01] LABS: DIFFERENTIAL COMMENT 1; HEMOGLOBIN 7.4 g/dL (10.9-14.3)
[2022-09-20 07:23] LABS: CREATININE 0.9 mg/dL (0.6-1.3); POTASSIUM 3.6 mmol/L (3.5-5.1)
[2022-09-20] MEDS: HYDROGEN PEROXIDE 3% 118 ML BOTTLE TP SCH ×2 (09:04→21:00)
[2022-09-20] MEDS: ACIDOPHILUS/BULGARICUS CHEW TAB GT SCH ×2 (09:21→21:15)
[2022-09-20] MEDS: ACETAMINOPHEN 650 MG/20.3 ML LIQUID UDC GT SCH ×2 (09:21→21:15)
[2022-09-20] MEDS: REMEDY ESSENTIAL ZINC PASTE 113 GM TP SCH ×3 (10:00→21:20)
[2022-09-20] MEDS: SODIUM HYPOCHLORITE 0.125% (QUARTER STRENGTH) 473 ML BOTTLE TP SCH ×3 (10:00→21:20)
[2022-09-20] MEDS: SERTRALINE 25MG TABLET GT SCH (12:46)
[2022-09-20] MEDS: VANCOMYCIN IV 1,000 MG in IV DEXTROSE 5% 250 ML IV SCH (13:43)
[2022-09-20] MEDS: TEMAZEPAM 7.5 MG CAPSULE GT PRN (21:00)
[2022-09-20] MEDS: MULTIVIT, IRON, MIN NO. 8, FA TABLET GT SCH (21:19)
[2022-09-20] MEDS: ASCORBIC ACID 500 MG TABLET GT SCH (21:20)
[2022-09-20] MEDS: ESTROGENS,CONJU VAGINAL CREAM 42.5 GM TUBE VG SCH (21:20)
[2022-09-20] MEDS: SIMVASTATIN 10 MG TABLET GT SCH (21:20)
[2022-09-21] VITALS (14 sets, daily range): TEMP 97.5–98.3; O2SAT 98–99
[2022-09-21] MEDS: BACLOFEN 10 MG TABLET GT SCH ×5 (00:27→23:01)
[2022-09-21] MEDS: IPRATROPIUM BROMIDE 0.5 MG/2.5 ML NEBU NEB SCH ×6 (03:33→23:29)
[2022-09-21] MEDS: ALBUTEROL SULFATE 2.5 MG/3 ML NEBU NEB SCH ×6 (03:33→23:29)
[2022-09-21] MEDS: ARGININE/GLUTAMINE/CALCIUM BMB 1 EACH POWD.PACK GT SCH ×2 (05:54→17:58)
[2022-09-21] MEDS: OMEPRAZOLE 20 MG CAPSULE.DR GT SCH (05:54)
[2022-09-21] MEDS: OMEGA-3 FATTY ACIDS/FISH OIL CAPSULE GT SCH ×2 (05:54→17:58)
[2022-09-21] MEDS: PROTEIN SUPPLEMENT (PROSTAT) 30 ML LIQUID GT SCH ×3 (05:55→21:25)
[2022-09-21] MEDS: MIDODRINE HCL 5 MG TABLET GT SCH ×3 (05:55→21:25)
[2022-09-21] MEDS: SODIUM HYPOCHLORITE 0.125% (QUARTER STRENGTH) 473 ML BOTTLE TP SCH ×3 (09:00→21:23)
[2022-09-21] MEDS: REMEDY ESSENTIAL ZINC PASTE 113 GM TP SCH ×3 (09:00→21:24)
[2022-09-21] MEDS: ACETAMINOPHEN 650 MG/20.3 ML LIQUID UDC GT SCH ×2 (09:20→20:29)
[2022-09-21] MEDS: ACIDOPHILUS/BULGARICUS CHEW TAB GT SCH ×2 (09:20→20:30)
[2022-09-21] MEDS: HYDROGEN PEROXIDE 3% 118 ML BOTTLE TP SCH ×2 (09:46→21:23)
[2022-09-21] MEDS: SERTRALINE 25MG TABLET GT SCH (12:00)
[2022-09-21] MEDS: VANCOMYCIN IV 1,000 MG in IV DEXTROSE 5% 250 ML IV SCH (12:58)
[2022-09-21] MEDS: MULTIVIT, IRON, MIN NO. 8, FA TABLET GT SCH (20:30)
[2022-09-21] MEDS: SIMVASTATIN 10 MG TABLET GT SCH (20:31)
[2022-09-21] MEDS: ASCORBIC ACID 500 MG TABLET GT SCH (20:31)
[2022-09-21] MEDS: ESTROGENS,CONJU VAGINAL CREAM 42.5 GM TUBE VG SCH (21:24)
[2022-09-22] VITALS (15 sets, daily range): TEMP 99.8–100.5; O2SAT 98–99
[2022-09-22] MEDS: ALBUTEROL SULFATE 2.5 MG/3 ML NEBU NEB SCH ×6 (03:33→23:40)
[2022-09-22] MEDS: IPRATROPIUM BROMIDE 0.5 MG/2.5 ML NEBU NEB SCH ×6 (03:33→23:40)
[2022-09-22] MEDS: ARGININE/GLUTAMINE/CALCIUM BMB 1 EACH POWD.PACK GT SCH ×2 (05:37→17:29)
[2022-09-22] MEDS: OMEGA-3 FATTY ACIDS/FISH OIL CAPSULE GT SCH ×2 (05:37→17:29)
[2022-09-22] MEDS: OMEPRAZOLE 20 MG CAPSULE.DR GT SCH (05:38)
[2022-09-22] MEDS: BACLOFEN 10 MG TABLET GT SCH ×3 (05:38→17:29)
[2022-09-22] MEDS: MIDODRINE HCL 5 MG TABLET GT SCH ×3 (05:38→21:24)
[2022-09-22] MEDS: PROTEIN SUPPLEMENT (PROSTAT) 30 ML LIQUID GT SCH ×3 (05:38→21:24)
[2022-09-22] MEDS: HYDROGEN PEROXIDE 3% 118 ML BOTTLE TP SCH ×2 (08:33→21:00)
[2022-09-22] MEDS: ACETAMINOPHEN 650 MG/20.3 ML LIQUID UDC GT SCH ×2 (09:01→21:24)
[2022-09-22] MEDS: ACIDOPHILUS/BULGARICUS CHEW TAB GT SCH ×2 (09:01→21:24)
[2022-09-22] MEDS: SODIUM HYPOCHLORITE 0.125% (QUARTER STRENGTH) 473 ML BOTTLE TP SCH ×3 (09:03→21:24)
[2022-09-22] MEDS: REMEDY ESSENTIAL ZINC PASTE 113 GM TP SCH ×3 (09:04→21:24)
[2022-09-22] MEDS: SERTRALINE 25MG TABLET GT SCH (12:42)
[2022-09-22 15:06] LABS: *BILIRUBIN,URIN NEGATIVE (NEGATIVE); *BLOOD, URINE 3+ (NEGATIVE); *CLARITY,URINE CLEAR (CLEAR); *COLOR,URINE YELLOW (YELLOW); *KETONES,URINE NEGATIVE (NEGATIVE); *PROTEIN,URINE 2+ (NEGATIVE); *UROBILINOGEN,URINE 0.2 E.U./dl (NORMAL); LEUKOCYTE ESTERASE ,URINE 3+ (NEGATIVE); NITRITE, URINE NEGATIVE (NEGATIVE); UGLUCOSE NEGATIVE (NEGATIVE)
[2022-09-22 15:49] LABS: BACTERIA,URINE MODERATE /HPF (NONE SEEN); SQUAMOUS EPITHELIAL CELL,UR FEW /HPF (NONE SEEN); WBC,URINE 50-80 /HPF (0-3)
[2022-09-22] MEDS: GLUCERNA 1.2 1000ML LIQUID GT PRN (17:30)
[2022-09-22] MEDS: IV D5W 1000ML 1,000 ML IV SCH (20:13)
[2022-09-22] MEDS: SIMVASTATIN 10 MG TABLET GT SCH (21:24)
[2022-09-22] MEDS: MULTIVIT, IRON, MIN NO. 8, FA TABLET GT SCH (21:24)
[2022-09-22] MEDS: ASCORBIC ACID 500 MG TABLET GT SCH (21:24)
[2022-09-22] MEDS: ESTROGENS,CONJU VAGINAL CREAM 42.5 GM TUBE VG SCH (21:24)
[2022-09-22] MEDS: TEMAZEPAM 7.5 MG CAPSULE GT PRN (22:00)
[2022-09-23] VITALS (16 sets, daily range): TEMP 97.5–100.5; O2SAT 97–99
[2022-09-23] MEDS: IPRATROPIUM BROMIDE 0.5 MG/2.5 ML NEBU NEB SCH ×6 (03:20→23:08)
[2022-09-23] MEDS: ALBUTEROL SULFATE 2.5 MG/3 ML NEBU NEB SCH ×6 (03:20→23:09)
[2022-09-23] MEDS: HYDROCODONE/APAP 10-325 MG TABLET GT PRN (03:45)
[2022-09-23] MEDS: OMEPRAZOLE 20 MG CAPSULE.DR GT SCH (05:22)
[2022-09-23] MEDS: ARGININE/GLUTAMINE/CALCIUM BMB 1 EACH POWD.PACK GT SCH ×2 (05:22→17:30)
[2022-09-23] MEDS: MIDODRINE HCL 5 MG TABLET GT SCH ×3 (05:22→21:49)
[2022-09-23] MEDS: BACLOFEN 10 MG TABLET GT SCH ×4 (05:22→17:30)
[2022-09-23] MEDS: PROTEIN SUPPLEMENT (PROSTAT) 30 ML LIQUID GT SCH ×3 (05:22→21:49)
[2022-09-23] MEDS: OMEGA-3 FATTY ACIDS/FISH OIL CAPSULE GT SCH ×2 (05:22→17:30)
[2022-09-23] MEDS: IV D5W 1000ML 1,000 ML IV SCH ×2 (05:45→16:22)
[2022-09-23 07:23] LABS: BASOPHILS # (AUTO) 0.1 K/UL (0.0-0.2); BASOPHILS % (AUTO) 0.6 % (0.0-2.0); EOSINOPHILS # (AUTO) 0.4 K/uL (0.0-0.7); EOSINOPHILS % (AUTO) 3.6 % (0.0-7.0); HEMATOCRIT 25.3 % (31.2-41.9); HEMOGLOBIN 7.6 g/dL (10.9-14.3); LYMPHOCYTES # (AUTO) 1.8 K/uL (0.8-4.8); LYMPHOCYTES % (AUTO) 15.4 % (20.5-51.5); MEAN CORPUSCULAR HEMOGLOBIN 25.3 uug (24.7-32.8); MEAN CORPUSCULAR HGB CONC 30 g/dL (32.3-35.6); MEAN CORPUSCULAR VOLUME 84.2 fL (75.5-95.3); MONOCYTES % (AUTO) 8.2 % (0.0-11.0); NEUTROPHILS # (AUTO) 8.6 K/uL (1.8-8.9); NEUTROPHILS % (AUTO) 72.2 % (38.5-71.5); PLATELET COUNT (AUTO) 304 K/uL (179-408); RED BLOOD CELL COUNT(AUTO) 3.01 MIL/uL (3.63-4.92); RED CELL DISTRIBUTION WIDTH 21.2 % (12.3-17.7); WHITE BLOOD COUNT (AUTO) 11.9 K/uL (3.8-11.8)
[2022-09-23 07:58] LABS: DIFFERENTIAL COMMENT 1
[2022-09-23 08:17] LABS: ALBUMIN 1.8 g/dL (3.4-5.0); BILIRUBIN,TOTAL 0.1 mg/dL (0.2-1.0); CALCIUM 8.9 mg/dL (8.5-10.1); CREATININE 0.8 mg/dL (0.6-1.3); POTASSIUM 3.2 mmol/L (3.5-5.1); TOTAL PROTEIN, SERUM 7.9 g/dL (6.4-8.2)
[2022-09-23] MEDS: ACETAMINOPHEN 650 MG/20.3 ML LIQUID UDC GT SCH ×2 (08:30→20:30)
[2022-09-23] MEDS: REMEDY ESSENTIAL ZINC PASTE 113 GM TP SCH ×3 (09:00→21:48)
[2022-09-23] MEDS: SODIUM HYPOCHLORITE 0.125% (QUARTER STRENGTH) 473 ML BOTTLE TP SCH ×3 (09:00→21:47)
[2022-09-23] MEDS: ACIDOPHILUS/BULGARICUS CHEW TAB GT SCH ×2 (09:00→21:47)
[2022-09-23] MEDS: HYDROGEN PEROXIDE 3% 118 ML BOTTLE TP SCH ×2 (09:58→23:07)
[2022-09-23 11:20] LABS: BAND % (MANUAL) 4 % (0-10); EOSINOPHILS % (MANUAL) 1 % (0-8); MONOCYTES % (MANUAL) 5 % (2-10); NEUTROPHILS % (MANUAL) 70 % (42-75); NUCLEATED RED BLOOD CELLS 1.7 /100WBC
[2022-09-23 11:21] LABS: LYMPHOCYTES % (MANUAL) 16 % (20-40)
[2022-09-23 11:22] LABS: PLATELET ESTIMATE ADEQUATE
[2022-09-23 11:23] LABS: ANISOCYTOSIS 2+
[2022-09-23 11:24] LABS: OVALOCYTES FEW
[2022-09-23] MEDS: SERTRALINE 25MG TABLET GT SCH (11:41)
[2022-09-23] MEDS ORDERED: MEROPENEM 1 G in IV NORMAL SALINE 100 ML IV SCH (14:00)
[2022-09-23] MEDS ORDERED: POTASSIUM CHLORIDE 20 MEQ POWDER PACKET GT ONE (20:00)
[2022-09-23] MEDS: ASCORBIC ACID 500 MG TABLET GT SCH (21:47)
[2022-09-23] MEDS: MULTIVIT, IRON, MIN NO. 8, FA TABLET GT SCH (21:47)
[2022-09-23] MEDS: SIMVASTATIN 10 MG TABLET GT SCH (21:47)
[2022-09-23] MEDS: ESTROGENS,CONJU VAGINAL CREAM 42.5 GM TUBE VG SCH (21:48)
[2022-09-23] MEDS: GLUCERNA 1.2 1000ML LIQUID GT PRN (22:45)
[2022-09-23] MEDS: TEMAZEPAM 7.5 MG CAPSULE GT PRN (23:07)
[2022-09-24] VITALS (18 sets, daily range): TEMP 98.2–99.4; O2SAT 98–99
[2022-09-24] MEDS: BACLOFEN 10 MG TABLET GT SCH ×5 (00:59→23:04)
[2022-09-24] MEDS: IV D5W 1000ML 1,000 ML IV SCH ×3 (02:00→22:00)
[2022-09-24] MEDS: ALBUTEROL SULFATE 2.5 MG/3 ML NEBU NEB SCH ×5 (04:29→19:26)
[2022-09-24] MEDS: IPRATROPIUM BROMIDE 0.5 MG/2.5 ML NEBU NEB SCH ×5 (04:29→19:25)
[2022-09-24] MEDS: HYDROCODONE/APAP 10-325 MG TABLET GT PRN ×2 (04:30→13:29)
[2022-09-24] MEDS: ARGININE/GLUTAMINE/CALCIUM BMB 1 EACH POWD.PACK GT SCH ×2 (05:56→17:33)
[2022-09-24] MEDS: OMEGA-3 FATTY ACIDS/FISH OIL CAPSULE GT SCH ×2 (05:56→17:32)
[2022-09-24] MEDS: MIDODRINE HCL 5 MG TABLET GT SCH ×3 (05:56→21:02)
[2022-09-24] MEDS: PROTEIN SUPPLEMENT (PROSTAT) 30 ML LIQUID GT SCH ×3 (05:56→21:02)
[2022-09-24] MEDS: OMEPRAZOLE 20 MG CAPSULE.DR GT SCH (05:56)
[2022-09-24 07:48] LABS: CALCIUM 8.6 mg/dL (8.5-10.1); CREATININE 0.7 mg/dL (0.6-1.3); POTASSIUM 3.7 mmol/L (3.5-5.1)
[2022-09-24] MEDS: ACETAMINOPHEN 650 MG/20.3 ML LIQUID UDC GT SCH ×2 (08:30→21:02)
[2022-09-24] MEDS: HYDROGEN PEROXIDE 3% 118 ML BOTTLE TP SCH ×2 (08:54→21:33)
[2022-09-24] MEDS: ACIDOPHILUS/BULGARICUS CHEW TAB GT SCH ×2 (09:40→21:02)
[2022-09-24] MEDS: REMEDY ESSENTIAL ZINC PASTE 113 GM TP SCH ×3 (09:42→21:02)
[2022-09-24] MEDS: SODIUM HYPOCHLORITE 0.125% (QUARTER STRENGTH) 473 ML BOTTLE TP SCH ×2 (09:43→09:44)
[2022-09-24] MEDS: SERTRALINE 25MG TABLET GT SCH (12:00)
[2022-09-24] MEDS: ACETAMINOPHEN 650 MG/20 ML UDC- SA PATIENTS-PAIN ONLY GT PRN (17:41)
[2022-09-24] MEDS: SIMVASTATIN 10 MG TABLET GT SCH (21:02)
[2022-09-24] MEDS: ASCORBIC ACID 500 MG TABLET GT SCH (21:02)
[2022-09-24] MEDS: ESTROGENS,CONJU VAGINAL CREAM 42.5 GM TUBE VG SCH (21:02)
[2022-09-24] MEDS: MULTIVIT, IRON, MIN NO. 8, FA TABLET GT SCH (21:02)
[2022-09-24] MEDS: CEFEPIME HCL 2 G in IV DEXTROSE 5% 100 ML IV SCH (22:00)
[2022-09-25] VITALS (18 sets, daily range): TEMP 98.3–100; O2SAT 98–99
[2022-09-25] MEDS: ALBUTEROL SULFATE 2.5 MG/3 ML NEBU NEB SCH ×6 (00:12→19:38)
[2022-09-25] MEDS: IPRATROPIUM BROMIDE 0.5 MG/2.5 ML NEBU NEB SCH ×6 (00:12→19:38)
[2022-09-25] MEDS: ACETAMINOPHEN 650 MG/20 ML UDC- SA PATIENTS-PAIN ONLY GT PRN (04:30)
[2022-09-25] MEDS: GLUCERNA 1.2 1000ML LIQUID GT PRN (04:58)
[2022-09-25] MEDS: PROTEIN SUPPLEMENT (PROSTAT) 30 ML LIQUID GT SCH ×3 (05:00→21:35)
[2022-09-25] MEDS: OMEGA-3 FATTY ACIDS/FISH OIL CAPSULE GT SCH ×2 (05:00→17:05)
[2022-09-25] MEDS: OMEPRAZOLE 20 MG CAPSULE.DR GT SCH (05:00)
[2022-09-25] MEDS: ARGININE/GLUTAMINE/CALCIUM BMB 1 EACH POWD.PACK GT SCH ×2 (05:00→17:05)
[2022-09-25] MEDS: BACLOFEN 10 MG TABLET GT SCH ×3 (05:00→17:05)
[2022-09-25] MEDS: MIDODRINE HCL 5 MG TABLET GT SCH ×3 (05:17→21:35)
[2022-09-25] MEDS: CEFEPIME HCL 2 G in IV DEXTROSE 5% 100 ML IV SCH ×3 (06:09→22:00)
[2022-09-25] MEDS: HYDROGEN PEROXIDE 3% 118 ML BOTTLE TP SCH ×2 (07:45→21:55)
[2022-09-25] MEDS: ACETAMINOPHEN 650 MG/20.3 ML LIQUID UDC GT SCH ×2 (08:30→20:30)
[2022-09-25] MEDS: ACIDOPHILUS/BULGARICUS CHEW TAB GT SCH ×2 (09:40→21:34)
[2022-09-25] MEDS: REMEDY ESSENTIAL ZINC PASTE 113 GM TP SCH ×3 (09:41→21:34)
[2022-09-25] MEDS: SODIUM HYPOCHLORITE 0.125% (QUARTER STRENGTH) 473 ML BOTTLE TP SCH (09:41)
[2022-09-25] MEDS: SERTRALINE 25MG TABLET GT SCH (12:36)
[2022-09-25] MEDS: IV D5W 1000ML 1,000 ML IV SCH (13:00)
[2022-09-25 14:17] LABS: CALCIUM 8.6 mg/dL (8.5-10.1); CREATININE 0.7 mg/dL (0.6-1.3); POTASSIUM 3.1 mmol/L (3.5-5.1)
[2022-09-25] MEDS: ASCORBIC ACID 500 MG TABLET GT SCH (21:34)
[2022-09-25] MEDS: ESTROGENS,CONJU VAGINAL CREAM 42.5 GM TUBE VG SCH (21:34)
[2022-09-25] MEDS: MULTIVIT, IRON, MIN NO. 8, FA TABLET GT SCH (21:34)
[2022-09-25] MEDS: SIMVASTATIN 10 MG TABLET GT SCH (21:34)
[2022-09-25] MEDS: TEMAZEPAM 7.5 MG CAPSULE GT PRN (21:35)
[2022-09-26] VITALS (16 sets, daily range): TEMP 97.1–99.8; O2SAT 98–99
[2022-09-26] MEDS: BACLOFEN 10 MG TABLET GT SCH ×5 (00:15→23:53)
[2022-09-26] MEDS: IPRATROPIUM BROMIDE 0.5 MG/2.5 ML NEBU NEB SCH ×7 (00:18→23:59)
[2022-09-26] MEDS: ALBUTEROL SULFATE 2.5 MG/3 ML NEBU NEB SCH ×6 (00:18→19:50)
[2022-09-26] MEDS: OMEPRAZOLE 20 MG CAPSULE.DR GT SCH (05:34)
[2022-09-26] MEDS: MIDODRINE HCL 5 MG TABLET GT SCH ×3 (05:34→21:44)
[2022-09-26] MEDS: ARGININE/GLUTAMINE/CALCIUM BMB 1 EACH POWD.PACK GT SCH ×2 (05:34→17:12)
[2022-09-26] MEDS: OMEGA-3 FATTY ACIDS/FISH OIL CAPSULE GT SCH ×2 (05:34→17:12)
[2022-09-26] MEDS: PROTEIN SUPPLEMENT (PROSTAT) 30 ML LIQUID GT SCH ×3 (05:35→21:44)
[2022-09-26] MEDS: CEFEPIME HCL 2 G in IV DEXTROSE 5% 100 ML IV SCH ×3 (06:00→22:33)
[2022-09-26 07:06] LABS: BASOPHILS # (AUTO) 0.1 K/UL (0.0-0.2); BASOPHILS % (AUTO) 0.5 % (0.0-2.0); EOSINOPHILS # (AUTO) 0.5 K/uL (0.0-0.7); EOSINOPHILS % (AUTO) 4.2 % (0.0-7.0); LYMPHOCYTES # (AUTO) 1.3 K/uL (0.8-4.8); LYMPHOCYTES % (AUTO) 11.3 % (20.5-51.5); MEAN CORPUSCULAR HEMOGLOBIN 24.4 uug (24.7-32.8); MEAN CORPUSCULAR HGB CONC 30 g/dL (32.3-35.6); MEAN CORPUSCULAR VOLUME 82.5 fL (75.5-95.3); MONOCYTES # (AUTO) 0.9 K/uL (0.1-1.30); MONOCYTES % (AUTO) 7.8 % (0.0-11.0); NEUTROPHILS # (AUTO) 8.5 K/uL (1.8-8.9); NEUTROPHILS % (AUTO) 76.2 % (38.5-71.5); PLATELET COUNT (AUTO) 310 K/uL (179-408); RED BLOOD CELL COUNT(AUTO) 3.27 MIL/uL (3.63-4.92); RED CELL DISTRIBUTION WIDTH 21.2 % (12.3-17.7); WHITE BLOOD COUNT (AUTO) 11.1 K/uL (3.8-11.8)
[2022-09-26 08:15] LABS: C-REACTIVE PROTEIN 13.8 mg/dL (0.0-0.9); CREATININE 0.8 mg/dL (0.6-1.3); MAGNESIUM 2.5 mg/dL (1.8-2.4); PHOSPHOROUS 3.1 mg/dL (2.5-4.9); POTASSIUM 3.5 mmol/L (3.5-5.1)
[2022-09-26] MEDS: ACIDOPHILUS/BULGARICUS CHEW TAB GT SCH ×2 (08:49→20:12)
[2022-09-26] MEDS: ACETAMINOPHEN 650 MG/20.3 ML LIQUID UDC GT SCH ×2 (08:49→20:12)
[2022-09-26] MEDS: REMEDY ESSENTIAL ZINC PASTE 113 GM TP SCH ×3 (08:50→20:13)
[2022-09-26] MEDS: HYDROGEN PEROXIDE 3% 118 ML BOTTLE TP SCH ×2 (09:09→21:54)
[2022-09-26 11:56] LABS: BAND % (MANUAL) 2 % (0-10); BASOPHILS % (MANUAL) 0 % (0-2); EOSINOPHILS % (MANUAL) 1 % (0-8); LYMPHOCYTES % (MANUAL) 12 % (20-40); MONOCYTES % (MANUAL) 5 % (2-10); NEUTROPHILS % (MANUAL) 80 % (42-75); REACTIVE LYMPHOCYTES 0 % (0-0)
[2022-09-26 11:57] LABS: BLASTS, MANUAL % 0 % (0-0); METAMYELOCYTES % 0 % (0-1); MYELOCYTES % 0 % (0-0); PLASMA CELLS N; PROMYELOCYTES % 0 %; SMUDGE CELLS N
[2022-09-26 11:59] LABS: DIFFERENTIAL COMMENT NRBC PRESENT
[2022-09-26 12:00] LABS: PLATELET ESTIMATE ADEQUATE
[2022-09-26 12:09] LABS: ANISOCYTOSIS 2+; GIANT PLATELETS 0; PAPPENHEIMER BODIES N
[2022-09-26 12:10] LABS: CABOT RINGS N; HEINZ BODIES N; HELMET CELLS N; HOWELL-JOLLY BODIES N; HYPERSEGMENTED NEUTROPHILS N; OVALOCYTES N; ROULEAU N; STOMATOCYTES N; TARGET CELLS N; TEAR DROP CELLS N; TOXIC GRANULATION N
[2022-09-26] MEDS: SERTRALINE 25MG TABLET GT SCH (12:17)
[2022-09-26] MEDS ORDERED: IV NORMAL SALINE 500 ML IV ONE (13:00)
[2022-09-26] MEDS ORDERED: POTASSIUM CHLORIDE 20 MEQ POWDER PACKET GT ONE (14:00)
[2022-09-26] MEDS: GLUCERNA 1.2 1000ML LIQUID GT PRN (14:19)
[2022-09-26] MEDS: HYDROCODONE/APAP 10-325 MG TABLET GT PRN (14:20)
[2022-09-26] MEDS: ASCORBIC ACID 500 MG TABLET GT SCH (20:13)
[2022-09-26] MEDS: SIMVASTATIN 10 MG TABLET GT SCH (20:13)
[2022-09-26] MEDS: MULTIVIT, IRON, MIN NO. 8, FA TABLET GT SCH (20:13)
[2022-09-26] MEDS: ESTROGENS,CONJU VAGINAL CREAM 42.5 GM TUBE VG SCH (20:13)
[2022-09-27] VITALS (14 sets, daily range): TEMP 98.4–99.3; O2SAT 98–99
[2022-09-27] MEDS: ALBUTEROL SULFATE 2.5 MG/3 ML NEBU NEB SCH ×7 (03:38→23:19)
[2022-09-27] MEDS: IPRATROPIUM BROMIDE 0.5 MG/2.5 ML NEBU NEB SCH ×6 (03:38→23:19)
[2022-09-27] MEDS: HYDROCODONE/APAP 10-325 MG TABLET GT PRN ×3 (05:30→21:30)
[2022-09-27] MEDS: CEFEPIME HCL 2 G in IV DEXTROSE 5% 100 ML IV SCH ×3 (05:44→22:00)
[2022-09-27] MEDS: BACLOFEN 10 MG TABLET GT SCH ×3 (06:00→17:02)
[2022-09-27] MEDS: OMEGA-3 FATTY ACIDS/FISH OIL CAPSULE GT SCH ×2 (06:00→17:02)
[2022-09-27] MEDS: ARGININE/GLUTAMINE/CALCIUM BMB 1 EACH POWD.PACK GT SCH ×2 (06:00→17:02)
[2022-09-27] MEDS: OMEPRAZOLE 20 MG CAPSULE.DR GT SCH (06:00)
[2022-09-27] MEDS: MIDODRINE HCL 5 MG TABLET GT SCH ×3 (06:01→21:05)
[2022-09-27] MEDS: PROTEIN SUPPLEMENT (PROSTAT) 30 ML LIQUID GT SCH ×3 (06:01→21:05)
[2022-09-27] MEDS: HYDROGEN PEROXIDE 3% 118 ML BOTTLE TP SCH ×2 (07:45→19:14)
[2022-09-27] MEDS: ACIDOPHILUS/BULGARICUS CHEW TAB GT SCH ×2 (08:39→20:56)
[2022-09-27] MEDS: REMEDY ESSENTIAL ZINC PASTE 113 GM TP SCH ×3 (08:39→20:58)
[2022-09-27] MEDS: ACETAMINOPHEN 650 MG/20.3 ML LIQUID UDC GT SCH ×2 (08:39→20:30)
[2022-09-27] MEDS: SERTRALINE 25MG TABLET GT SCH (11:40)
[2022-09-27] MEDS: GLUCERNA 1.2 1000ML LIQUID GT PRN (16:45)
[2022-09-27] MEDS: MULTIVIT, IRON, MIN NO. 8, FA TABLET GT SCH (20:56)
[2022-09-27] MEDS: ASCORBIC ACID 500 MG TABLET GT SCH (20:56)
[2022-09-27] MEDS: SIMVASTATIN 10 MG TABLET GT SCH (20:56)
[2022-09-27] MEDS: ESTROGENS,CONJU VAGINAL CREAM 42.5 GM TUBE VG SCH (20:58)
[2022-09-27] MEDS: TEMAZEPAM 7.5 MG CAPSULE GT PRN (21:06)
[2022-09-28] VITALS (16 sets, daily range): TEMP 97.9–98; O2SAT 98–99
[2022-09-28] MEDS: BACLOFEN 10 MG TABLET GT SCH ×4 (00:38→17:30)
[2022-09-28] MEDS: IPRATROPIUM BROMIDE 0.5 MG/2.5 ML NEBU NEB SCH ×6 (03:30→23:32)
[2022-09-28] MEDS: ALBUTEROL SULFATE 2.5 MG/3 ML NEBU NEB SCH ×6 (03:30→23:32)
[2022-09-28] MEDS: ARGININE/GLUTAMINE/CALCIUM BMB 1 EACH POWD.PACK GT SCH ×2 (05:34→17:29)
[2022-09-28] MEDS: OMEGA-3 FATTY ACIDS/FISH OIL CAPSULE GT SCH ×2 (05:34→17:28)
[2022-09-28] MEDS: PROTEIN SUPPLEMENT (PROSTAT) 30 ML LIQUID GT SCH ×3 (05:35→21:37)
[2022-09-28] MEDS: OMEPRAZOLE 20 MG CAPSULE.DR GT SCH (05:35)
[2022-09-28] MEDS: MIDODRINE HCL 5 MG TABLET GT SCH ×3 (05:36→21:37)
[2022-09-28] MEDS: CEFEPIME HCL 2 G in IV DEXTROSE 5% 100 ML IV SCH ×3 (07:20→21:32)
[2022-09-28 07:23] LABS: BASOPHILS # (AUTO) 0.1 K/UL (0.0-0.2); BASOPHILS % (AUTO) 0.6 % (0.0-2.0); EOSINOPHILS # (AUTO) 0.5 K/uL (0.0-0.7); EOSINOPHILS % (AUTO) 4.8 % (0.0-7.0); LYMPHOCYTES # (AUTO) 1.4 K/uL (0.8-4.8); LYMPHOCYTES % (AUTO) 13.5 % (20.5-51.5); MEAN CORPUSCULAR HGB CONC 31 g/dL (32.3-35.6); MEAN CORPUSCULAR VOLUME 82.1 fL (75.5-95.3); MONOCYTES # (AUTO) 0.9 K/uL (0.1-1.30); MONOCYTES % (AUTO) 8.3 % (0.0-11.0); NEUTROPHILS # (AUTO) 7.6 K/uL (1.8-8.9); NEUTROPHILS % (AUTO) 72.8 % (38.5-71.5); PLATELET COUNT (AUTO) 310 K/uL (179-408); WHITE BLOOD COUNT (AUTO) 10.4 K/uL (3.8-11.8)
[2022-09-28 07:59] LABS: BILIRUBIN,TOTAL 0.2 mg/dL (0.2-1.0); C-REACTIVE PROTEIN 8.4 mg/dL (0.0-0.9); CALCIUM 8.7 mg/dL (8.5-10.1); CREATININE 0.8 mg/dL (0.6-1.3); MAGNESIUM 2.1 mg/dL (1.8-2.4); PHOSPHOROUS 3.3 mg/dL (2.5-4.9); POTASSIUM 3.7 mmol/L (3.5-5.1); TOTAL PROTEIN, SERUM 7.2 g/dL (6.4-8.2)
[2022-09-28 08:18] LABS: ALBUMIN 1.5 g/dL (3.4-5.0)
[2022-09-28] MEDS: ACETAMINOPHEN 650 MG/20.3 ML LIQUID UDC GT SCH ×2 (08:30→20:30)
[2022-09-28] MEDS: HYDROGEN PEROXIDE 3% 118 ML BOTTLE TP SCH ×2 (08:46→21:26)
[2022-09-28] MEDS: ACIDOPHILUS/BULGARICUS CHEW TAB GT SCH ×2 (09:49→21:37)
[2022-09-28] MEDS: REMEDY ESSENTIAL ZINC PASTE 113 GM TP SCH ×3 (09:50→21:37)
[2022-09-28] MEDS: SODIUM HYPOCHLORITE 0.125% (QUARTER STRENGTH) 473 ML BOTTLE TP SCH (10:00)
[2022-09-28] MEDS: SERTRALINE 25MG TABLET GT SCH (12:00)
[2022-09-28] MEDS: HYDROCODONE/APAP 10-325 MG TABLET GT PRN (14:35)
[2022-09-28 15:15] LABS: BAND % (MANUAL) 1 % (0-10); BASOPHILS % (MANUAL) 0 % (0-2); EOSINOPHILS % (MANUAL) 2 % (0-8); LYMPHOCYTES % (MANUAL) 20 % (20-40); MONOCYTES % (MANUAL) 5 % (2-10); NEUTROPHILS % (MANUAL) 70 % (42-75)
[2022-09-28 15:16] LABS: BLASTS, MANUAL % 0 % (0-0); METAMYELOCYTES % 0 % (0-1); MYELOCYTES % 0 % (0-0); PLASMA CELLS 0; PLATELET ESTIMATE ADEQUATE; PROMYELOCYTES % 0 %; REACTIVE LYMPHOCYTES 2 % (0-0); SMUDGE CELLS 0
[2022-09-28 15:17] LABS: ANISOCYTOSIS 2+; HEINZ BODIES N; HELMET CELLS N; OVALOCYTES N; PAPPENHEIMER BODIES N; STOMATOCYTES N; TARGET CELLS N; TEAR DROP CELLS N
[2022-09-28 15:18] LABS: CABOT RINGS N; HOWELL-JOLLY BODIES N; HYPERSEGMENTED NEUTROPHILS N; ROULEAU N; TOXIC GRANULATION N
[2022-09-28] MEDS: SIMVASTATIN 10 MG TABLET GT SCH (21:37)
[2022-09-28] MEDS: MULTIVIT, IRON, MIN NO. 8, FA TABLET GT SCH (21:37)
[2022-09-28] MEDS: ASCORBIC ACID 500 MG TABLET GT SCH (21:37)
[2022-09-28] MEDS: ESTROGENS,CONJU VAGINAL CREAM 42.5 GM TUBE VG SCH (21:37)
[2022-09-29] VITALS (16 sets, daily range): TEMP 97.8; O2SAT 98–99
[2022-09-29] MEDS: IPRATROPIUM BROMIDE 0.5 MG/2.5 ML NEBU NEB SCH ×6 (03:37→23:52)
[2022-09-29] MEDS: ALBUTEROL SULFATE 2.5 MG/3 ML NEBU NEB SCH ×6 (03:37→23:52)
[2022-09-29] MEDS: OMEPRAZOLE 20 MG CAPSULE.DR GT SCH (05:58)
[2022-09-29] MEDS: ARGININE/GLUTAMINE/CALCIUM BMB 1 EACH POWD.PACK GT SCH ×2 (05:58→17:09)
[2022-09-29] MEDS: BACLOFEN 10 MG TABLET GT SCH ×4 (05:58→17:09)
[2022-09-29] MEDS: OMEGA-3 FATTY ACIDS/FISH OIL CAPSULE GT SCH ×2 (05:58→17:09)
[2022-09-29] MEDS: PROTEIN SUPPLEMENT (PROSTAT) 30 ML LIQUID GT SCH ×3 (05:59→21:42)
[2022-09-29] MEDS: MIDODRINE HCL 5 MG TABLET GT SCH ×3 (05:59→21:40)
[2022-09-29] MEDS: HYDROGEN PEROXIDE 3% 118 ML BOTTLE TP SCH ×2 (07:27→23:51)
[2022-09-29] MEDS ORDERED: NITROFURANTOIN/NITROFURAN MAC 100 MG CAPSULE PO SCH (09:00)
[2022-09-29] MEDS: REMEDY ESSENTIAL ZINC PASTE 113 GM TP SCH ×3 (09:26→21:38)
[2022-09-29] MEDS: ACETAMINOPHEN 650 MG/20.3 ML LIQUID UDC GT SCH ×2 (09:26→20:30)
[2022-09-29] MEDS: ACIDOPHILUS/BULGARICUS CHEW TAB GT SCH ×2 (09:26→21:36)
[2022-09-29] MEDS: NITROFURANTOIN 25 MG/5 ML GT SCH (09:26)
[2022-09-29] MEDS: SERTRALINE 25MG TABLET GT SCH (12:17)
[2022-09-29] MEDS: HYDROCODONE/APAP 10-325 MG TABLET GT PRN (18:49)
[2022-09-29] MEDS: ESTROGENS,CONJU VAGINAL CREAM 42.5 GM TUBE VG SCH (21:38)
[2022-09-29] MEDS: SIMVASTATIN 10 MG TABLET GT SCH (21:38)
[2022-09-29] MEDS: ASCORBIC ACID 500 MG TABLET GT SCH (21:38)
[2022-09-29] MEDS: MULTIVIT, IRON, MIN NO. 8, FA TABLET GT SCH (21:38)
[2022-09-30] VITALS (16 sets, daily range): TEMP 98.5–98.7; O2SAT 98–99
[2022-09-30] MEDS: BACLOFEN 10 MG TABLET GT SCH ×5 (00:30→23:03)
[2022-09-30] MEDS: IPRATROPIUM BROMIDE 0.5 MG/2.5 ML NEBU NEB SCH ×6 (04:07→23:29)
[2022-09-30] MEDS: ALBUTEROL SULFATE 2.5 MG/3 ML NEBU NEB SCH ×6 (04:08→23:29)
[2022-09-30] MEDS: GLUCERNA 1.2 1000ML LIQUID GT PRN (05:04)
[2022-09-30] MEDS: OMEGA-3 FATTY ACIDS/FISH OIL CAPSULE GT SCH ×2 (06:23→18:12)
[2022-09-30] MEDS: ARGININE/GLUTAMINE/CALCIUM BMB 1 EACH POWD.PACK GT SCH ×2 (06:23→18:12)
[2022-09-30] MEDS: OMEPRAZOLE 20 MG CAPSULE.DR GT SCH (06:23)
[2022-09-30] MEDS: MIDODRINE HCL 5 MG TABLET GT SCH ×3 (06:24→22:00)
[2022-09-30] MEDS: PROTEIN SUPPLEMENT (PROSTAT) 30 ML LIQUID GT SCH ×3 (06:24→22:00)
[2022-09-30 07:05] LABS: BASOPHILS # (AUTO) 0.1 K/UL (0.0-0.2); BASOPHILS % (AUTO) 1.1 % (0.0-2.0); EOSINOPHILS # (AUTO) 0.8 K/uL (0.0-0.7); EOSINOPHILS % (AUTO) 7.3 % (0.0-7.0); HEMATOCRIT 29.1 % (31.2-41.9); HEMOGLOBIN 9.1 g/dL (10.9-14.3); LYMPHOCYTES # (AUTO) 2.2 K/uL (0.8-4.8); LYMPHOCYTES % (AUTO) 18.7 % (20.5-51.5); MEAN CORPUSCULAR HEMOGLOBIN 26.1 uug (24.7-32.8); MEAN CORPUSCULAR HGB CONC 31 g/dL (32.3-35.6); MEAN CORPUSCULAR VOLUME 83.3 fL (75.5-95.3); MONOCYTES % (AUTO) 8.3 % (0.0-11.0); NEUTROPHILS # (AUTO) 7.5 K/uL (1.8-8.9); NEUTROPHILS % (AUTO) 64.6 % (38.5-71.5); PLATELET COUNT (AUTO) 315 K/uL (179-408); RED BLOOD CELL COUNT(AUTO) 3.49 MIL/uL (3.63-4.92); RED CELL DISTRIBUTION WIDTH 19.3 % (12.3-17.7); WHITE BLOOD COUNT (AUTO) 11.6 K/uL (3.8-11.8)
[2022-09-30 08:05] LABS: ALBUMIN 1.6 g/dL (3.4-5.0); BILIRUBIN,TOTAL 0.3 mg/dL (0.2-1.0); C-REACTIVE PROTEIN 5.4 mg/dL (0.0-0.9); CREATININE 0.7 mg/dL (0.6-1.3); MAGNESIUM 2.2 mg/dL (1.8-2.4); PHOSPHOROUS 3.6 mg/dL (2.5-4.9); POTASSIUM 3.9 mmol/L (3.5-5.1); TOTAL PROTEIN, SERUM 7.7 g/dL (6.4-8.2)
[2022-09-30] MEDS: HYDROGEN PEROXIDE 3% 118 ML BOTTLE TP SCH ×2 (08:21→19:04)
[2022-09-30] MEDS: REMEDY ESSENTIAL ZINC PASTE 113 GM TP SCH ×3 (10:00→21:00)
[2022-09-30] MEDS: ACIDOPHILUS/BULGARICUS CHEW TAB GT SCH ×2 (10:00→21:00)
[2022-09-30] MEDS: NITROFURANTOIN 25 MG/5 ML GT SCH (10:00)
[2022-09-30] MEDS: ACETAMINOPHEN 650 MG/20.3 ML LIQUID UDC GT SCH ×2 (10:00→20:30)
[2022-09-30] MEDS: HYDROCODONE/APAP 10-325 MG TABLET GT PRN ×2 (11:21→18:20)
[2022-09-30] MEDS: SERTRALINE 25MG TABLET GT SCH (12:06)
[2022-09-30 14:31] LABS: BAND % (MANUAL) 0 % (0-10); BASOPHILS % (MANUAL) 0 % (0-2); BLASTS, MANUAL % 0 % (0-0); EOSINOPHILS % (MANUAL) 5 % (0-8); LYMPHOCYTES % (MANUAL) 23 % (20-40); METAMYELOCYTES % 0 % (0-1); MONOCYTES % (MANUAL) 1 % (2-10); MYELOCYTES % 0 % (0-0); NEUTROPHILS % (MANUAL) 71 % (42-75); PLASMA CELLS 0; PLATELET ESTIMATE ADEQUATE; PROMYELOCYTES % 0 %; REACTIVE LYMPHOCYTES 0 % (0-0); SMUDGE CELLS 0
[2022-09-30 14:32] LABS: GIANT PLATELETS 0
[2022-09-30 14:33] LABS: ANISOCYTOSIS 2+; CABOT RINGS N; HEINZ BODIES N; HELMET CELLS N; HOWELL-JOLLY BODIES N; HYPERSEGMENTED NEUTROPHILS N; HYPOCHROMASIA N; OVALOCYTES N; PAPPENHEIMER BODIES N; ROULEAU N; STOMATOCYTES N; TARGET CELLS N; TEAR DROP CELLS N; TOXIC GRANULATION N
[2022-09-30] MEDS: SIMVASTATIN 10 MG TABLET GT SCH (21:00)
[2022-09-30] MEDS: ASCORBIC ACID 500 MG TABLET GT SCH (21:00)
[2022-09-30] MEDS: ESTROGENS,CONJU VAGINAL CREAM 42.5 GM TUBE VG SCH (21:00)
[2022-09-30] MEDS: MULTIVIT, IRON, MIN NO. 8, FA TABLET GT SCH (21:00)
[2022-09-30] MEDS: TEMAZEPAM 7.5 MG CAPSULE GT PRN (22:55)
[2022-10-01] VITALS (15 sets, daily range): TEMP 97.3–99.9; O2SAT 98–99
[2022-10-01] MEDS: ALBUTEROL SULFATE 2.5 MG/3 ML NEBU NEB SCH ×6 (04:09→23:30)
[2022-10-01] MEDS: IPRATROPIUM BROMIDE 0.5 MG/2.5 ML NEBU NEB SCH ×6 (04:09→23:30)
[2022-10-01] MEDS: OMEGA-3 FATTY ACIDS/FISH OIL CAPSULE GT SCH ×2 (05:06→17:16)
[2022-10-01] MEDS: ARGININE/GLUTAMINE/CALCIUM BMB 1 EACH POWD.PACK GT SCH ×2 (05:06→17:16)
[2022-10-01] MEDS: PROTEIN SUPPLEMENT (PROSTAT) 30 ML LIQUID GT SCH ×3 (05:08→21:30)
[2022-10-01] MEDS: BACLOFEN 10 MG TABLET GT SCH ×3 (05:08→17:16)
[2022-10-01] MEDS: OMEPRAZOLE 20 MG CAPSULE.DR GT SCH (05:08)
[2022-10-01] MEDS: MIDODRINE HCL 5 MG TABLET GT SCH ×3 (05:13→21:29)
[2022-10-01] MEDS: ACETAMINOPHEN 650 MG/20.3 ML LIQUID UDC GT SCH ×2 (08:34→20:34)
[2022-10-01] MEDS: ACIDOPHILUS/BULGARICUS CHEW TAB GT SCH ×2 (08:34→21:26)
[2022-10-01] MEDS: REMEDY ESSENTIAL ZINC PASTE 113 GM TP SCH ×3 (08:36→21:28)
[2022-10-01] MEDS: NITROFURANTOIN 25 MG/5 ML GT SCH (08:36)
[2022-10-01] MEDS: HYDROGEN PEROXIDE 3% 118 ML BOTTLE TP SCH ×2 (10:00→19:15)
[2022-10-01] MEDS: GLUCERNA 1.2 1000ML LIQUID GT PRN (10:35)
[2022-10-01] MEDS: SERTRALINE 25MG TABLET GT SCH (13:00)
[2022-10-01] MEDS: SIMVASTATIN 10 MG TABLET GT SCH (21:27)
[2022-10-01] MEDS: MULTIVIT, IRON, MIN NO. 8, FA TABLET GT SCH (21:27)
[2022-10-01] MEDS: ASCORBIC ACID 500 MG TABLET GT SCH (21:27)
[2022-10-01] MEDS: ESTROGENS,CONJU VAGINAL CREAM 42.5 GM TUBE VG SCH (21:28)
[2022-10-02] VITALS (14 sets, daily range): TEMP 98.1–99.2; O2SAT 96–99
[2022-10-02] MEDS: IPRATROPIUM BROMIDE 0.5 MG/2.5 ML NEBU NEB SCH ×6 (03:32→23:40)
[2022-10-02] MEDS: ALBUTEROL SULFATE 2.5 MG/3 ML NEBU NEB SCH ×6 (03:32→23:40)
[2022-10-02] MEDS: BACLOFEN 10 MG TABLET GT SCH ×4 (05:12→17:37)
[2022-10-02] MEDS: MIDODRINE HCL 5 MG TABLET GT SCH ×3 (05:12→21:13)
[2022-10-02] MEDS: ARGININE/GLUTAMINE/CALCIUM BMB 1 EACH POWD.PACK GT SCH ×2 (05:12→17:37)
[2022-10-02] MEDS: OMEGA-3 FATTY ACIDS/FISH OIL CAPSULE GT SCH ×2 (05:12→17:36)
[2022-10-02] MEDS: OMEPRAZOLE 20 MG CAPSULE.DR GT SCH (05:12)
[2022-10-02] MEDS: PROTEIN SUPPLEMENT (PROSTAT) 30 ML LIQUID GT SCH ×3 (05:13→21:26)
[2022-10-02 08:23] LABS: *OCCULT BLOOD STOOL NEGATIVE (NEGATIVE)
[2022-10-02] MEDS: ACETAMINOPHEN 650 MG/20.3 ML LIQUID UDC GT SCH ×2 (08:38→20:25)
[2022-10-02] MEDS: ACIDOPHILUS/BULGARICUS CHEW TAB GT SCH ×2 (08:38→20:17)
[2022-10-02] MEDS: REMEDY ESSENTIAL ZINC PASTE 113 GM TP SCH ×3 (08:39→20:25)
[2022-10-02] MEDS: NITROFURANTOIN 25 MG/5 ML GT SCH (08:39)
[2022-10-02] MEDS: HYDROGEN PEROXIDE 3% 118 ML BOTTLE TP SCH ×2 (09:21→19:17)
[2022-10-02] MEDS: SODIUM HYPOCHLORITE 0.125% (QUARTER STRENGTH) 473 ML BOTTLE TP SCH (10:00)
[2022-10-02] MEDS: SERTRALINE 25MG TABLET GT SCH (12:28)
[2022-10-02] MEDS: ASCORBIC ACID 500 MG TABLET GT SCH (20:25)
[2022-10-02] MEDS: ESTROGENS,CONJU VAGINAL CREAM 42.5 GM TUBE VG SCH (20:25)
[2022-10-02] MEDS: MULTIVIT, IRON, MIN NO. 8, FA TABLET GT SCH (20:25)
[2022-10-02] MEDS: SIMVASTATIN 10 MG TABLET GT SCH (20:25)
[2022-10-03] VITALS (7 sets, daily range): TEMP 98.3; O2SAT 94–99
[2022-10-03] MEDS: ALBUTEROL SULFATE 2.5 MG/3 ML NEBU NEB SCH ×2 (03:45→07:28)
[2022-10-03] MEDS: IPRATROPIUM BROMIDE 0.5 MG/2.5 ML NEBU NEB SCH ×2 (03:45→07:28)
[2022-10-03] MEDS: ACETAMINOPHEN 650 MG/20 ML UDC- SA PATIENTS-PAIN ONLY GT PRN (05:06)
[2022-10-03] MEDS: BACLOFEN 10 MG TABLET GT SCH ×2 (06:08)
[2022-10-03] MEDS: OMEPRAZOLE 20 MG CAPSULE.DR GT SCH (06:09)
[2022-10-03] MEDS: MIDODRINE HCL 5 MG TABLET GT SCH (06:09)
[2022-10-03] MEDS: ARGININE/GLUTAMINE/CALCIUM BMB 1 EACH POWD.PACK GT SCH (06:10)
[2022-10-03] MEDS: PROTEIN SUPPLEMENT (PROSTAT) 30 ML LIQUID GT SCH (06:10)
[2022-10-03] MEDS: OMEGA-3 FATTY ACIDS/FISH OIL CAPSULE GT SCH (06:10)
[2022-10-03 07:43] LABS: BASOPHILS # (AUTO) 0.1 K/UL (0.0-0.2); EOSINOPHILS # (AUTO) 0.3 K/uL (0.0-0.7); EOSINOPHILS % (AUTO) 3.1 % (0.0-7.0); HEMATOCRIT 34.6 % (31.2-41.9); HEMOGLOBIN 10.6 g/dL (10.9-14.3); LYMPHOCYTES # (AUTO) 1.7 K/uL (0.8-4.8); LYMPHOCYTES % (AUTO) 16.2 % (20.5-51.5); MEAN CORPUSCULAR HEMOGLOBIN 25.7 uug (24.7-32.8); MEAN CORPUSCULAR HGB CONC 31 g/dL (32.3-35.6); MONOCYTES # (AUTO) 0.7 K/uL (0.1-1.30); MONOCYTES % (AUTO) 6.5 % (0.0-11.0); NEUTROPHILS # (AUTO) 7.5 K/uL (1.8-8.9); NEUTROPHILS % (AUTO) 73.2 % (38.5-71.5); PLATELET COUNT (AUTO) 368 K/uL (179-408); RED BLOOD CELL COUNT(AUTO) 4.12 MIL/uL (3.63-4.92); RED CELL DISTRIBUTION WIDTH 20.3 % (12.3-17.7); WHITE BLOOD COUNT (AUTO) 10.3 K/uL (3.8-11.8)
[2022-10-03 07:49] LABS: ALBUMIN 2.1 g/dL (3.4-5.0); BILIRUBIN,TOTAL 0.4 mg/dL (0.2-1.0); CALCIUM 9.9 mg/dL (8.5-10.1); CREATININE 0.7 mg/dL (0.6-1.3); MAGNESIUM 2.3 mg/dL (1.8-2.4); PHOSPHOROUS 4.6 mg/dL (2.5-4.9); POTASSIUM 3.6 mmol/L (3.5-5.1); TOTAL PROTEIN, SERUM 8.8 g/dL (6.4-8.2)
[2022-10-03 07:57] LABS: DIFFERENTIAL COMMENT 1
[2022-10-03 07:59] LABS: RETICULOCYTE COUNT 5.1 % (0.5-2.2)
[2022-10-03] MEDS ORDERED: SIMV10TA98 GT (08:18)
[2022-10-03] MEDS ORDERED: METH1TAB69 GT (08:25)
[2022-10-03] MEDS ORDERED: BACL10TA GT (08:25)
[2022-10-03] MEDS ORDERED: HYDR-3980 GT (11:58)
[2022-10-03] MEDS ORDERED: NITR50CA PO (11:59)
[2022-10-07] MEDS ORDERED: VANC1PLA9 IV (11:33)
[2022-10-07] MEDS ORDERED: CEFE2FRO IV (11:33)
[2022-10-07 18:00] VITALS: BP 103/54; TEMP 98.2; O2SAT 99
[2022-10-07 20:00] VITALS: TEMP 98.4
[2022-10-07] MEDS ORDERED: VANCOMYCIN IV 1,000 MG in IV DEXTROSE 5% 250 ML IV SCH (21:00)
[2022-10-07] MEDS ORDERED: SODIUM HYPOCHLORITE 0.125% (QUARTER STRENGTH) 473 ML BOTTLE TP SCH (21:00)
[2022-10-07] MEDS: SODIUM HYPOCHLORITE 0.125% (QUARTER STRENGTH) 473 ML BOTTLE TP SCH (21:30)
[2022-10-07] MEDS ORDERED: SODIUM HYPOCHLORITE 0.125% (QUARTER STRENGTH) 473 ML BOTTLE TP PRN (21:30)
[2022-10-07] MEDS: CEFEPIME HCL 2 G in IV DEXTROSE 5% 100 ML IV SCH (22:00)
[2022-10-07] MEDS: MIDODRINE HCL 5 MG TABLET GT SCH (22:00)
[2022-10-07] MEDS: GLUCERNA 1.2 1000ML LIQUID GT PRN (22:16)
[2022-10-07] MEDS: HYDROCODONE/APAP 10-325 MG TABLET GT PRN (22:27)
[2022-10-07] MEDS: TEMAZEPAM 7.5 MG CAPSULE GT PRN (22:27)
[2022-10-08] VITALS (10 sets, daily range): TEMP 97.6–99.6; O2SAT 97–99
[2022-10-08] MEDS ORDERED: ALBUTEROL SULFATE 2.5 MG/3 ML NEBU NEB SCH (03:30)
[2022-10-08] MEDS: HYDROCODONE/APAP 10-325 MG TABLET GT PRN ×2 (04:00→15:00)
[2022-10-08] MEDS: MIDODRINE HCL 5 MG TABLET GT SCH ×3 (05:10→21:37)
[2022-10-08] MEDS: OMEGA-3 FATTY ACIDS/FISH OIL CAPSULE GT SCH ×2 (05:12→17:23)
[2022-10-08] MEDS: ARGININE/GLUTAMINE/CALCIUM BMB 1 EACH POWD.PACK GT SCH ×2 (05:12→17:23)
[2022-10-08] MEDS: BACLOFEN 10 MG TABLET PO SCH ×2 (05:13)
[2022-10-08] MEDS: CEFEPIME HCL 2 G in IV DEXTROSE 5% 100 ML IV SCH ×3 (06:00→22:00)
[2022-10-08] MEDS: OMEPRAZOLE 20 MG CAPSULE.DR GT SCH (06:00)
[2022-10-08] MEDS: ALBUTEROL SULFATE 2.5 MG/3 ML NEBU NEB SCH ×3 (07:47→15:30)
[2022-10-08] MEDS: IPRATROPIUM BROMIDE 0.5 MG/2.5 ML NEBU NEB SCH ×3 (07:47→15:30)
[2022-10-08] MEDS: ACETAMINOPHEN 650 MG/20.3 ML LIQUID UDC GT SCH ×2 (09:19→20:30)
[2022-10-08] MEDS: ACIDOPHILUS/BULGARICUS CHEW TAB GT SCH ×2 (09:20→21:30)
[2022-10-08] MEDS: SODIUM HYPOCHLORITE 0.125% (QUARTER STRENGTH) 473 ML BOTTLE TP SCH ×2 (09:20→21:31)
[2022-10-08] MEDS ORDERED: SODIUM HYPOCHLORITE 0.125% (QUARTER STRENGTH) 473 ML BOTTLE TP SCH (09:42)
[2022-10-08] MEDS: BACLOFEN 10 MG TABLET GT SCH ×3 (12:00→23:34)
[2022-10-08] MEDS: SERTRALINE HCL 50 MG TABLET GT SCH (12:00)
[2022-10-08] MEDS: PROTEIN SUPPLEMENT (PROSTAT) 30 ML LIQUID GT SCH ×2 (14:15→21:33)
[2022-10-08] MEDS: HYDROGEN PEROXIDE 3% 118 ML BOTTLE TP SCH (21:00)
[2022-10-08] MEDS ORDERED: VANCOMYCIN IV 1,000 MG in IV DEXTROSE 5% 250 ML IV SCH (21:00)
[2022-10-08] MEDS: REMEDY ESSENTIAL ZINC PASTE 113 GM TP SCH (21:31)
[2022-10-08] MEDS: ASCORBIC ACID 500 MG TABLET GT SCH (21:31)
[2022-10-08] MEDS: MULTIVIT, IRON, MIN NO. 8, FA TABLET GT SCH (21:31)
[2022-10-08] MEDS: ESTROGENS,CONJU VAGINAL CREAM 42.5 GM TUBE VG SCH (21:32)
[2022-10-08] MEDS: VITAMINS A AND D OINT 42 GM TUBE TP SCH (21:32)
[2022-10-08] MEDS: SIMVASTATIN 10 MG TABLET GT SCH (21:40)
[2022-10-08] MEDS: TEMAZEPAM 7.5 MG CAPSULE GT PRN (21:53)
[2022-10-09] VITALS (14 sets, daily range): TEMP 98.7–99; O2SAT 97–99
[2022-10-09] MEDS: HYDROCODONE/APAP 10-325 MG TABLET GT PRN ×2 (03:36→17:42)
[2022-10-09] MEDS: BACLOFEN 10 MG TABLET GT SCH ×4 (05:16→23:29)
[2022-10-09] MEDS: PROTEIN SUPPLEMENT (PROSTAT) 30 ML LIQUID GT SCH ×3 (05:16→22:00)
[2022-10-09] MEDS: OMEGA-3 FATTY ACIDS/FISH OIL CAPSULE GT SCH ×2 (05:16→17:42)
[2022-10-09] MEDS: ARGININE/GLUTAMINE/CALCIUM BMB 1 EACH POWD.PACK GT SCH ×2 (05:16→17:42)
[2022-10-09] MEDS: MIDODRINE HCL 5 MG TABLET GT SCH ×3 (05:22→22:00)
[2022-10-09] MEDS: CEFEPIME HCL 2 G in IV DEXTROSE 5% 100 ML IV SCH ×3 (06:02→22:00)
[2022-10-09] MEDS: IPRATROPIUM BROMIDE 0.5 MG/2.5 ML NEBU NEB SCH ×5 (07:27→23:03)
[2022-10-09] MEDS: ALBUTEROL SULFATE 2.5 MG/3 ML NEBU NEB SCH ×5 (07:28→23:03)
[2022-10-09] MEDS: HYDROGEN PEROXIDE 3% 118 ML BOTTLE TP SCH ×2 (09:00→21:00)
[2022-10-09] MEDS: ACETAMINOPHEN 650 MG/20.3 ML LIQUID UDC GT SCH ×2 (09:12→20:30)
[2022-10-09] MEDS: VITAMINS A AND D OINT 42 GM TUBE TP SCH ×2 (09:12→21:00)
[2022-10-09] MEDS: SODIUM HYPOCHLORITE 0.125% (QUARTER STRENGTH) 473 ML BOTTLE TP SCH ×2 (09:12→21:00)
[2022-10-09] MEDS: ACIDOPHILUS/BULGARICUS CHEW TAB GT SCH ×2 (09:12→21:00)
[2022-10-09] MEDS: REMEDY ESSENTIAL ZINC PASTE 113 GM TP SCH ×2 (09:12→21:00)
[2022-10-09] MEDS: SERTRALINE HCL 50 MG TABLET GT SCH (12:00)
[2022-10-09] MEDS: ASCORBIC ACID 500 MG TABLET GT SCH (21:00)
[2022-10-09] MEDS: MULTIVIT, IRON, MIN NO. 8, FA TABLET GT SCH (21:00)
[2022-10-09] MEDS: ESTROGENS,CONJU VAGINAL CREAM 42.5 GM TUBE VG SCH (21:00)
[2022-10-09] MEDS: SIMVASTATIN 10 MG TABLET GT SCH (21:00)
[2022-10-10] VITALS (14 sets, daily range): TEMP 97.8–98.4; O2SAT 97–99
[2022-10-10] MEDS: ALBUTEROL SULFATE 2.5 MG/3 ML NEBU NEB SCH ×6 (03:12→23:35)
[2022-10-10] MEDS: IPRATROPIUM BROMIDE 0.5 MG/2.5 ML NEBU NEB SCH ×6 (03:12→23:35)
[2022-10-10] MEDS: BACLOFEN 10 MG TABLET GT SCH ×3 (05:47→17:49)
[2022-10-10] MEDS: OMEPRAZOLE 20 MG CAPSULE.DR GT SCH (05:47)
[2022-10-10] MEDS: OMEGA-3 FATTY ACIDS/FISH OIL CAPSULE GT SCH ×2 (05:47→17:49)
[2022-10-10] MEDS: ARGININE/GLUTAMINE/CALCIUM BMB 1 EACH POWD.PACK GT SCH ×2 (05:47→17:49)
[2022-10-10] MEDS: PROTEIN SUPPLEMENT (PROSTAT) 30 ML LIQUID GT SCH ×3 (05:48→22:39)
[2022-10-10] MEDS: MIDODRINE HCL 5 MG TABLET GT SCH ×3 (05:48→22:34)
[2022-10-10 07:15] LABS: BASOPHILS # (AUTO) 0.1 K/UL (0.0-0.2); BASOPHILS % (AUTO) 0.8 % (0.0-2.0); EOSINOPHILS # (AUTO) 0.4 K/uL (0.0-0.7); EOSINOPHILS % (AUTO) 4.8 % (0.0-7.0); HEMATOCRIT 29.4 % (31.2-41.9); LYMPHOCYTES # (AUTO) 1.5 K/uL (0.8-4.8); LYMPHOCYTES % (AUTO) 17.7 % (20.5-51.5); MEAN CORPUSCULAR HEMOGLOBIN 25.1 uug (24.7-32.8); MEAN CORPUSCULAR HGB CONC 31 g/dL (32.3-35.6); MEAN CORPUSCULAR VOLUME 81.9 fL (75.5-95.3); MONOCYTES # (AUTO) 0.9 K/uL (0.1-1.30); NEUTROPHILS # (AUTO) 5.5 K/uL (1.8-8.9); NEUTROPHILS % (AUTO) 65.7 % (38.5-71.5); PLATELET COUNT (AUTO) 231 K/uL (179-408); RED BLOOD CELL COUNT(AUTO) 3.59 MIL/uL (3.63-4.92); RED CELL DISTRIBUTION WIDTH 20.3 % (12.3-17.7); WHITE BLOOD COUNT (AUTO) 8.3 K/uL (3.8-11.8)
[2022-10-10 07:21] LABS: DIFFERENTIAL COMMENT 1
[2022-10-10] MEDS: HYDROGEN PEROXIDE 3% 118 ML BOTTLE TP SCH ×2 (07:21→21:27)
[2022-10-10 07:40] LABS: ALBUMIN 1.8 g/dL (3.4-5.0); BILIRUBIN,TOTAL 0.2 mg/dL (0.2-1.0); CALCIUM 9.6 mg/dL (8.5-10.1); CREATININE 0.8 mg/dL (0.6-1.3); POTASSIUM 4.4 mmol/L (3.5-5.1)
[2022-10-10] MEDS: ACETAMINOPHEN 650 MG/20.3 ML LIQUID UDC GT SCH ×2 (08:58→20:30)
[2022-10-10] MEDS: ACIDOPHILUS/BULGARICUS CHEW TAB GT SCH ×2 (08:58→21:00)
[2022-10-10] MEDS: SODIUM HYPOCHLORITE 0.125% (QUARTER STRENGTH) 473 ML BOTTLE TP SCH ×2 (09:00→21:00)
[2022-10-10] MEDS: REMEDY ESSENTIAL ZINC PASTE 113 GM TP SCH ×2 (09:00→21:00)
[2022-10-10] MEDS: VITAMINS A AND D OINT 42 GM TUBE TP SCH ×2 (09:00→21:00)
[2022-10-10] MEDS: GLUCERNA 1.2 1000ML LIQUID GT PRN (09:06)
[2022-10-10] MEDS: SERTRALINE HCL 50 MG TABLET GT SCH (11:53)
[2022-10-10] MEDS: NITROFURANTOIN 25 MG/5 ML GT SCH (11:53)
[2022-10-10] MEDS: HYDROCODONE/APAP 10-325 MG TABLET GT PRN (12:07)
[2022-10-10] MEDS: MULTIVIT, IRON, MIN NO. 8, FA TABLET GT SCH (21:00)
[2022-10-10] MEDS: ESTROGENS,CONJU VAGINAL CREAM 42.5 GM TUBE VG SCH (21:00)
[2022-10-10] MEDS: SIMVASTATIN 10 MG TABLET GT SCH (21:00)
[2022-10-10] MEDS: ASCORBIC ACID 500 MG TABLET GT SCH (21:00)
[2022-10-11] VITALS (14 sets, daily range): TEMP 97.5–98.8; O2SAT 97–99
[2022-10-11] MEDS: ALBUTEROL SULFATE 2.5 MG/3 ML NEBU NEB SCH ×5 (03:30→19:18)
[2022-10-11] MEDS: IPRATROPIUM BROMIDE 0.5 MG/2.5 ML NEBU NEB SCH ×5 (03:30→19:18)
[2022-10-11] MEDS: OMEPRAZOLE 20 MG CAPSULE.DR GT SCH (06:19)
[2022-10-11] MEDS: BACLOFEN 10 MG TABLET GT SCH ×4 (06:19→17:01)
[2022-10-11] MEDS: MIDODRINE HCL 5 MG TABLET GT SCH ×3 (06:19→21:39)
[2022-10-11] MEDS: ARGININE/GLUTAMINE/CALCIUM BMB 1 EACH POWD.PACK GT SCH ×2 (06:19→17:01)
[2022-10-11] MEDS: PROTEIN SUPPLEMENT (PROSTAT) 30 ML LIQUID GT SCH ×3 (06:19→21:40)
[2022-10-11] MEDS: OMEGA-3 FATTY ACIDS/FISH OIL CAPSULE GT SCH ×2 (06:19→17:01)
[2022-10-11 07:32] LABS: CREATININE 0.7 mg/dL (0.6-1.3)
[2022-10-11] MEDS: HYDROGEN PEROXIDE 3% 118 ML BOTTLE TP SCH ×2 (07:45→21:00)
[2022-10-11] MEDS: ACETAMINOPHEN 650 MG/20.3 ML LIQUID UDC GT SCH ×2 (08:59→20:30)
[2022-10-11] MEDS: ACIDOPHILUS/BULGARICUS CHEW TAB GT SCH ×2 (08:59→21:37)
[2022-10-11] MEDS: NITROFURANTOIN 25 MG/5 ML GT SCH (09:05)
[2022-10-11] MEDS: REMEDY ESSENTIAL ZINC PASTE 113 GM TP SCH ×2 (09:05→21:38)
[2022-10-11] MEDS: SODIUM HYPOCHLORITE 0.125% (QUARTER STRENGTH) 473 ML BOTTLE TP SCH ×2 (09:05→21:38)
[2022-10-11] MEDS: VITAMINS A AND D OINT 42 GM TUBE TP SCH ×2 (09:06→21:38)
[2022-10-11] MEDS: SERTRALINE HCL 50 MG TABLET GT SCH (12:00)
[2022-10-11] MEDS: GLUCERNA 1.2 1000ML LIQUID GT PRN (16:06)
[2022-10-11] MEDS: HYDROCODONE/APAP 10-325 MG TABLET GT PRN (16:47)
[2022-10-11] MEDS: MULTIVIT, IRON, MIN NO. 8, FA TABLET GT SCH (21:37)
[2022-10-11] MEDS: ASCORBIC ACID 500 MG TABLET GT SCH (21:37)
[2022-10-11] MEDS: SIMVASTATIN 10 MG TABLET GT SCH (21:38)
[2022-10-11] MEDS: ESTROGENS,CONJU VAGINAL CREAM 42.5 GM TUBE VG SCH (21:38)
[2022-10-12] VITALS (15 sets, daily range): BP systolic 109; BP diastolic 62; TEMP 98.1–98.6; O2SAT 97–99
[2022-10-12] MEDS: ALBUTEROL SULFATE 2.5 MG/3 ML NEBU NEB SCH ×6 (00:14→20:25)
[2022-10-12] MEDS: IPRATROPIUM BROMIDE 0.5 MG/2.5 ML NEBU NEB SCH ×6 (00:14→20:25)
[2022-10-12] MEDS: BACLOFEN 10 MG TABLET GT SCH ×4 (00:30→17:37)
[2022-10-12] MEDS: OMEPRAZOLE 20 MG CAPSULE.DR GT SCH (06:33)
[2022-10-12] MEDS: OMEGA-3 FATTY ACIDS/FISH OIL CAPSULE GT SCH ×2 (06:33→17:37)
[2022-10-12] MEDS: PROTEIN SUPPLEMENT (PROSTAT) 30 ML LIQUID GT SCH ×3 (06:33→22:00)
[2022-10-12] MEDS: ARGININE/GLUTAMINE/CALCIUM BMB 1 EACH POWD.PACK GT SCH ×2 (06:33→17:37)
[2022-10-12] MEDS: MIDODRINE HCL 5 MG TABLET GT SCH ×3 (06:33→22:00)
[2022-10-12] MEDS: ACETAMINOPHEN 650 MG/20.3 ML LIQUID UDC GT SCH ×2 (08:51→20:30)
[2022-10-12] MEDS: ACIDOPHILUS/BULGARICUS CHEW TAB GT SCH ×2 (08:51→21:00)
[2022-10-12] MEDS: NITROFURANTOIN 25 MG/5 ML GT SCH (08:53)
[2022-10-12] MEDS: SODIUM HYPOCHLORITE 0.125% (QUARTER STRENGTH) 473 ML BOTTLE TP SCH ×3 (08:53→21:00)
[2022-10-12] MEDS: REMEDY ESSENTIAL ZINC PASTE 113 GM TP SCH ×2 (08:53→21:00)
[2022-10-12] MEDS: VITAMINS A AND D OINT 42 GM TUBE TP SCH ×2 (08:53→21:00)
[2022-10-12] MEDS: HYDROGEN PEROXIDE 3% 118 ML BOTTLE TP SCH ×2 (09:07→20:52)
[2022-10-12] MEDS: SERTRALINE HCL 50 MG TABLET GT SCH (13:00)
[2022-10-12] MEDS: HYDROCODONE/APAP 10-325 MG TABLET GT PRN (14:26)
[2022-10-12] MEDS: SIMVASTATIN 10 MG TABLET GT SCH (21:00)
[2022-10-12] MEDS: ASCORBIC ACID 500 MG TABLET GT SCH (21:00)
[2022-10-12] MEDS: ESTROGENS,CONJU VAGINAL CREAM 42.5 GM TUBE VG SCH (21:00)
[2022-10-12] MEDS: MULTIVIT, IRON, MIN NO. 8, FA TABLET GT SCH (21:00)
[2022-10-13] VITALS (14 sets, daily range): TEMP 98.1–98.3; O2SAT 97–99
[2022-10-13] MEDS: IPRATROPIUM BROMIDE 0.5 MG/2.5 ML NEBU NEB SCH ×7 (00:18→23:30)
[2022-10-13] MEDS: ALBUTEROL SULFATE 2.5 MG/3 ML NEBU NEB SCH ×7 (00:18→23:30)
[2022-10-13] MEDS: BACLOFEN 10 MG TABLET GT SCH ×4 (00:30→17:27)
[2022-10-13] MEDS: HYDROCODONE/APAP 10-325 MG TABLET GT PRN (03:17)
[2022-10-13] MEDS: ARGININE/GLUTAMINE/CALCIUM BMB 1 EACH POWD.PACK GT SCH ×2 (05:59→17:27)
[2022-10-13] MEDS: OMEGA-3 FATTY ACIDS/FISH OIL CAPSULE GT SCH ×2 (05:59→17:27)
[2022-10-13] MEDS: OMEPRAZOLE 20 MG CAPSULE.DR GT SCH (05:59)
[2022-10-13] MEDS: MIDODRINE HCL 5 MG TABLET GT SCH ×3 (06:00→21:02)
[2022-10-13] MEDS: PROTEIN SUPPLEMENT (PROSTAT) 30 ML LIQUID GT SCH ×3 (06:00→21:02)
[2022-10-13] MEDS: HYDROGEN PEROXIDE 3% 118 ML BOTTLE TP SCH ×2 (07:44→19:29)
[2022-10-13] MEDS: ACETAMINOPHEN 650 MG/20.3 ML LIQUID UDC GT SCH ×2 (08:30→21:01)
[2022-10-13] MEDS: ACIDOPHILUS/BULGARICUS CHEW TAB GT SCH ×2 (09:38→21:01)
[2022-10-13] MEDS: NITROFURANTOIN 25 MG/5 ML GT SCH (09:38)
[2022-10-13] MEDS: REMEDY ESSENTIAL ZINC PASTE 113 GM TP SCH ×2 (09:41→21:01)
[2022-10-13] MEDS: SODIUM HYPOCHLORITE 0.125% (QUARTER STRENGTH) 473 ML BOTTLE TP SCH ×2 (09:42→21:01)
[2022-10-13] MEDS: VITAMINS A AND D OINT 42 GM TUBE TP SCH ×2 (09:42→21:02)
[2022-10-13] MEDS: SERTRALINE HCL 50 MG TABLET GT SCH (12:34)
[2022-10-13] MEDS: APIXABAN 2.5 MG TABLET GT SCH (21:00)
[2022-10-13] MEDS: MULTIVIT, IRON, MIN NO. 8, FA TABLET GT SCH (21:01)
[2022-10-13] MEDS: SIMVASTATIN 10 MG TABLET GT SCH (21:01)
[2022-10-13] MEDS: ASCORBIC ACID 500 MG TABLET GT SCH (21:01)
[2022-10-13] MEDS: ESTROGENS,CONJU VAGINAL CREAM 42.5 GM TUBE VG SCH (21:02)
[2022-10-14] VITALS (14 sets, daily range): TEMP 97.3–97.6; O2SAT 98–99
[2022-10-14] MEDS: BACLOFEN 10 MG TABLET GT SCH ×5 (00:11→23:05)
[2022-10-14] MEDS: ALBUTEROL SULFATE 2.5 MG/3 ML NEBU NEB SCH ×6 (03:40→23:20)
[2022-10-14] MEDS: IPRATROPIUM BROMIDE 0.5 MG/2.5 ML NEBU NEB SCH ×6 (03:40→23:20)
[2022-10-14] MEDS: GLUCERNA 1.2 1000ML LIQUID GT PRN (04:20)
[2022-10-14] MEDS: MIDODRINE HCL 5 MG TABLET GT SCH ×3 (05:47→22:00)
[2022-10-14] MEDS: PROTEIN SUPPLEMENT (PROSTAT) 30 ML LIQUID GT SCH ×3 (05:47→22:00)
[2022-10-14] MEDS: ARGININE/GLUTAMINE/CALCIUM BMB 1 EACH POWD.PACK GT SCH ×2 (05:47→17:53)
[2022-10-14] MEDS: OMEGA-3 FATTY ACIDS/FISH OIL CAPSULE GT SCH ×2 (05:47→17:53)
[2022-10-14] MEDS: OMEPRAZOLE 20 MG CAPSULE.DR GT SCH (05:47)
[2022-10-14] MEDS: HYDROGEN PEROXIDE 3% 118 ML BOTTLE TP SCH ×2 (07:50→21:00)
[2022-10-14] MEDS: SODIUM HYPOCHLORITE 0.125% (QUARTER STRENGTH) 473 ML BOTTLE TP SCH ×3 (09:00→21:59)
[2022-10-14] MEDS: ACETAMINOPHEN 650 MG/20.3 ML LIQUID UDC GT SCH ×2 (09:05→20:30)
[2022-10-14] MEDS: ACIDOPHILUS/BULGARICUS CHEW TAB GT SCH ×2 (09:06→21:59)
[2022-10-14] MEDS: NITROFURANTOIN 25 MG/5 ML GT SCH (09:07)
[2022-10-14] MEDS: REMEDY ESSENTIAL ZINC PASTE 113 GM TP SCH ×2 (09:08→21:59)
[2022-10-14] MEDS: VITAMINS A AND D OINT 42 GM TUBE TP SCH ×2 (09:08→21:59)
[2022-10-14] MEDS: APIXABAN 2.5 MG TABLET GT SCH ×2 (09:11→21:00)
[2022-10-14] MEDS: SERTRALINE HCL 50 MG TABLET GT SCH (11:45)
[2022-10-14] MEDS: HYDROCODONE/APAP 10-325 MG TABLET GT PRN (15:01)
[2022-10-14] MEDS: SIMVASTATIN 10 MG TABLET GT SCH (21:59)
[2022-10-14] MEDS: MULTIVIT, IRON, MIN NO. 8, FA TABLET GT SCH (21:59)
[2022-10-14] MEDS: ASCORBIC ACID 500 MG TABLET GT SCH (21:59)
[2022-10-14] MEDS: ESTROGENS,CONJU VAGINAL CREAM 42.5 GM TUBE VG SCH (21:59)
[2022-10-14] MEDS: TEMAZEPAM 7.5 MG CAPSULE GT PRN (22:00)
[2022-10-15] VITALS (12 sets, daily range): TEMP 97.9–98.3; O2SAT 96–99
[2022-10-15] MEDS: ALBUTEROL SULFATE 2.5 MG/3 ML NEBU NEB SCH ×6 (03:30→23:28)
[2022-10-15] MEDS: IPRATROPIUM BROMIDE 0.5 MG/2.5 ML NEBU NEB SCH ×6 (03:30→23:28)
[2022-10-15] MEDS: ARGININE/GLUTAMINE/CALCIUM BMB 1 EACH POWD.PACK GT SCH ×2 (05:13→17:53)
[2022-10-15] MEDS: OMEPRAZOLE 20 MG CAPSULE.DR GT SCH (05:13)
[2022-10-15] MEDS: BACLOFEN 10 MG TABLET GT SCH ×4 (05:13→23:27)
[2022-10-15] MEDS: OMEGA-3 FATTY ACIDS/FISH OIL CAPSULE GT SCH ×2 (05:13→17:53)
[2022-10-15] MEDS: MIDODRINE HCL 5 MG TABLET GT SCH ×3 (05:14→21:28)
[2022-10-15] MEDS: PROTEIN SUPPLEMENT (PROSTAT) 30 ML LIQUID GT SCH ×3 (05:14→21:28)
[2022-10-15] MEDS: HYDROGEN PEROXIDE 3% 118 ML BOTTLE TP SCH ×2 (08:59→19:18)
[2022-10-15] MEDS: SODIUM HYPOCHLORITE 0.125% (QUARTER STRENGTH) 473 ML BOTTLE TP SCH ×2 (09:00→21:27)
[2022-10-15] MEDS: ACETAMINOPHEN 650 MG/20.3 ML LIQUID UDC GT SCH ×2 (09:21→21:27)
[2022-10-15] MEDS: APIXABAN 2.5 MG TABLET GT SCH ×2 (09:22→21:44)
[2022-10-15] MEDS: ACIDOPHILUS/BULGARICUS CHEW TAB GT SCH ×2 (09:23→21:27)
[2022-10-15] MEDS: NITROFURANTOIN 25 MG/5 ML GT SCH (09:25)
[2022-10-15] MEDS: REMEDY ESSENTIAL ZINC PASTE 113 GM TP SCH ×2 (09:25→21:27)
[2022-10-15] MEDS: VITAMINS A AND D OINT 42 GM TUBE TP SCH ×2 (09:26→21:28)
[2022-10-15] MEDS: SERTRALINE HCL 50 MG TABLET GT SCH (12:34)
[2022-10-15] MEDS: GLUCERNA 1.2 1000ML LIQUID GT PRN (12:35)
[2022-10-15] MEDS: HYDROCODONE/APAP 10-325 MG TABLET GT PRN (17:58)
[2022-10-15] MEDS: MULTIVIT, IRON, MIN NO. 8, FA TABLET GT SCH (21:27)
[2022-10-15] MEDS: ASCORBIC ACID 500 MG TABLET GT SCH (21:27)
[2022-10-15] MEDS: SIMVASTATIN 10 MG TABLET GT SCH (21:27)
[2022-10-15] MEDS: TEMAZEPAM 7.5 MG CAPSULE GT PRN (21:28)
[2022-10-15] MEDS: ESTROGENS,CONJU VAGINAL CREAM 42.5 GM TUBE VG SCH (21:28)
[2022-10-16] VITALS (15 sets, daily range): TEMP 98.2–98.6; O2SAT 97–99
[2022-10-16] MEDS: IPRATROPIUM BROMIDE 0.5 MG/2.5 ML NEBU NEB SCH ×6 (03:27→23:25)
[2022-10-16] MEDS: ALBUTEROL SULFATE 2.5 MG/3 ML NEBU NEB SCH ×6 (03:27→23:25)
[2022-10-16] MEDS: OMEPRAZOLE 20 MG CAPSULE.DR GT SCH (05:32)
[2022-10-16] MEDS: ARGININE/GLUTAMINE/CALCIUM BMB 1 EACH POWD.PACK GT SCH ×2 (05:32→17:07)
[2022-10-16] MEDS: OMEGA-3 FATTY ACIDS/FISH OIL CAPSULE GT SCH ×2 (05:32→17:06)
[2022-10-16] MEDS: BACLOFEN 10 MG TABLET GT SCH ×3 (05:32→17:07)
[2022-10-16] MEDS: MIDODRINE HCL 5 MG TABLET GT SCH ×3 (05:32→22:40)
[2022-10-16] MEDS: PROTEIN SUPPLEMENT (PROSTAT) 30 ML LIQUID GT SCH ×3 (05:32→22:41)
[2022-10-16] MEDS: ACETAMINOPHEN 650 MG/20.3 ML LIQUID UDC GT SCH ×2 (09:19→21:12)
[2022-10-16] MEDS: APIXABAN 2.5 MG TABLET GT SCH (09:23)
[2022-10-16] MEDS: ACIDOPHILUS/BULGARICUS CHEW TAB GT SCH ×2 (09:23→21:12)
[2022-10-16] MEDS: NITROFURANTOIN 25 MG/5 ML GT SCH (09:28)
[2022-10-16] MEDS: REMEDY ESSENTIAL ZINC PASTE 113 GM TP SCH ×2 (09:29→21:00)
[2022-10-16] MEDS: VITAMINS A AND D OINT 42 GM TUBE TP SCH ×2 (09:30→21:14)
[2022-10-16] MEDS: SODIUM HYPOCHLORITE 0.125% (QUARTER STRENGTH) 473 ML BOTTLE TP SCH ×2 (09:31→21:00)
[2022-10-16] MEDS: HYDROGEN PEROXIDE 3% 118 ML BOTTLE TP SCH ×2 (09:58→21:00)
[2022-10-16] MEDS: SERTRALINE HCL 50 MG TABLET GT SCH (12:34)
[2022-10-16] MEDS: ESTROGENS,CONJU VAGINAL CREAM 42.5 GM TUBE VG SCH (21:00)
[2022-10-16] MEDS: ASCORBIC ACID 500 MG TABLET GT SCH (21:13)
[2022-10-16] MEDS: SIMVASTATIN 10 MG TABLET GT SCH (21:13)
[2022-10-16] MEDS: MULTIVIT, IRON, MIN NO. 8, FA TABLET GT SCH (21:13)
[2022-10-16] MEDS: HYDROGEN PEROXIDE 3% 118 ML BOTTLE TP PRN (23:24)
[2022-10-17] VITALS (13 sets, daily range): TEMP 98.3–98.8; O2SAT 97–99
[2022-10-17] MEDS: BACLOFEN 10 MG TABLET GT SCH ×4 (00:46→17:16)
[2022-10-17] MEDS: ALBUTEROL SULFATE 2.5 MG/3 ML NEBU NEB SCH ×5 (03:07→19:22)
[2022-10-17] MEDS: IPRATROPIUM BROMIDE 0.5 MG/2.5 ML NEBU NEB SCH ×5 (03:07→19:22)
[2022-10-17] MEDS: OMEGA-3 FATTY ACIDS/FISH OIL CAPSULE GT SCH ×2 (05:51→17:16)
[2022-10-17] MEDS: ARGININE/GLUTAMINE/CALCIUM BMB 1 EACH POWD.PACK GT SCH ×2 (05:51→17:16)
[2022-10-17] MEDS: OMEPRAZOLE 20 MG CAPSULE.DR GT SCH (05:53)
[2022-10-17] MEDS: PROTEIN SUPPLEMENT (PROSTAT) 30 ML LIQUID GT SCH ×3 (05:56→22:32)
[2022-10-17] MEDS: MIDODRINE HCL 5 MG TABLET GT SCH ×3 (06:00→22:00)
[2022-10-17 07:22] LABS: BASOPHILS # (AUTO) 0.1 K/UL (0.0-0.2); BASOPHILS % (AUTO) 0.9 % (0.0-2.0); EOSINOPHILS # (AUTO) 0.4 K/uL (0.0-0.7); EOSINOPHILS % (AUTO) 5.5 % (0.0-7.0); HEMATOCRIT 30.4 % (31.2-41.9); HEMOGLOBIN 9.6 g/dL (10.9-14.3); LYMPHOCYTES % (AUTO) 24.8 % (20.5-51.5); MEAN CORPUSCULAR HEMOGLOBIN 25.4 uug (24.7-32.8); MEAN CORPUSCULAR HGB CONC 32 g/dL (32.3-35.6); MEAN CORPUSCULAR VOLUME 80.8 fL (75.5-95.3); MONOCYTES # (AUTO) 0.8 K/uL (0.1-1.30); MONOCYTES % (AUTO) 9.5 % (0.0-11.0); NEUTROPHILS # (AUTO) 4.7 K/uL (1.8-8.9); NEUTROPHILS % (AUTO) 59.3 % (38.5-71.5); PLATELET COUNT (AUTO) 272 K/uL (179-408); RED BLOOD CELL COUNT(AUTO) 3.77 MIL/uL (3.63-4.92); RED CELL DISTRIBUTION WIDTH 20.9 % (12.3-17.7)
[2022-10-17 07:30] LABS: CALCIUM 9.3 mg/dL (8.5-10.1); CREATININE 0.9 mg/dL (0.6-1.3); POTASSIUM 3.3 mmol/L (3.5-5.1)
[2022-10-17 07:54] LABS: DIFFERENTIAL COMMENT 1
[2022-10-17] MEDS: ACETAMINOPHEN 650 MG/20.3 ML LIQUID UDC GT SCH ×2 (08:30→20:34)
[2022-10-17] MEDS: HYDROGEN PEROXIDE 3% 118 ML BOTTLE TP SCH ×2 (09:09→19:22)
[2022-10-17] MEDS: REMEDY ESSENTIAL ZINC PASTE 113 GM TP SCH ×2 (09:38→20:37)
[2022-10-17] MEDS: ACIDOPHILUS/BULGARICUS CHEW TAB GT SCH ×2 (09:38→20:34)
[2022-10-17] MEDS: SODIUM HYPOCHLORITE 0.125% (QUARTER STRENGTH) 473 ML BOTTLE TP SCH ×3 (09:38→20:36)
[2022-10-17] MEDS: NITROFURANTOIN 25 MG/5 ML GT SCH (09:38)
[2022-10-17] MEDS: VITAMINS A AND D OINT 42 GM TUBE TP SCH ×2 (09:38→20:37)
[2022-10-17] MEDS ORDERED: POTASSIUM CHLORIDE 10 MEQ TAB.PRT.SR XX ONE (12:00)
[2022-10-17] MEDS: SERTRALINE HCL 50 MG TABLET GT SCH (12:16)
[2022-10-17] MEDS: ASCORBIC ACID 500 MG TABLET GT SCH (20:36)
[2022-10-17] MEDS: MULTIVIT, IRON, MIN NO. 8, FA TABLET GT SCH (20:36)
[2022-10-17] MEDS: SIMVASTATIN 10 MG TABLET GT SCH (20:36)
[2022-10-17] MEDS: ESTROGENS,CONJU VAGINAL CREAM 42.5 GM TUBE VG SCH (20:37)
[2022-10-18] VITALS (15 sets, daily range): TEMP 97.5–98.9; O2SAT 97–99
[2022-10-18] MEDS: ALBUTEROL SULFATE 2.5 MG/3 ML NEBU NEB SCH ×7 (00:27→23:35)
[2022-10-18] MEDS: IPRATROPIUM BROMIDE 0.5 MG/2.5 ML NEBU NEB SCH ×7 (00:27→23:40)
[2022-10-18] MEDS: GLUCERNA 1.2 1000ML LIQUID GT PRN (03:55)
[2022-10-18] MEDS: OMEGA-3 FATTY ACIDS/FISH OIL CAPSULE GT SCH ×2 (05:06→17:13)
[2022-10-18] MEDS: ARGININE/GLUTAMINE/CALCIUM BMB 1 EACH POWD.PACK GT SCH ×2 (05:06→17:13)
[2022-10-18] MEDS: OMEPRAZOLE 20 MG CAPSULE.DR GT SCH (05:07)
[2022-10-18] MEDS: MIDODRINE HCL 5 MG TABLET GT SCH ×3 (05:07→21:34)
[2022-10-18] MEDS: BACLOFEN 10 MG TABLET GT SCH ×4 (05:07→17:13)
[2022-10-18] MEDS: PROTEIN SUPPLEMENT (PROSTAT) 30 ML LIQUID GT SCH ×3 (05:07→21:34)
[2022-10-18] MEDS: HYDROGEN PEROXIDE 3% 118 ML BOTTLE TP SCH ×2 (08:08→19:28)
[2022-10-18] MEDS: ACIDOPHILUS/BULGARICUS CHEW TAB GT SCH ×2 (08:57→21:31)
[2022-10-18] MEDS: ACETAMINOPHEN 650 MG/20.3 ML LIQUID UDC GT SCH ×2 (08:57→20:30)
[2022-10-18] MEDS: VITAMINS A AND D OINT 42 GM TUBE TP SCH ×2 (08:58→21:34)
[2022-10-18] MEDS: SODIUM HYPOCHLORITE 0.125% (QUARTER STRENGTH) 473 ML BOTTLE TP SCH ×2 (08:58→21:33)
[2022-10-18] MEDS: REMEDY ESSENTIAL ZINC PASTE 113 GM TP SCH ×2 (08:58→21:34)
[2022-10-18] MEDS: NITROFURANTOIN 25 MG/5 ML GT SCH (08:58)
[2022-10-18] MEDS: SERTRALINE HCL 50 MG TABLET GT SCH (11:51)
[2022-10-18] MEDS: ASCORBIC ACID 500 MG TABLET GT SCH (21:33)
[2022-10-18] MEDS: MULTIVIT, IRON, MIN NO. 8, FA TABLET GT SCH (21:33)
[2022-10-18] MEDS: SIMVASTATIN 10 MG TABLET GT SCH (21:33)
[2022-10-18] MEDS: ESTROGENS,CONJU VAGINAL CREAM 42.5 GM TUBE VG SCH (21:34)
[2022-10-18] MEDS: FOSFOMYCIN TROMETHAMINE 3 GM PACKET GT SCH (21:34)
[2022-10-19] VITALS (15 sets, daily range): TEMP 97.6–98.3; O2SAT 97–99
[2022-10-19] MEDS: BACLOFEN 10 MG TABLET GT SCH ×4 (00:03→18:27)
[2022-10-19] MEDS: IPRATROPIUM BROMIDE 0.5 MG/2.5 ML NEBU NEB SCH ×6 (03:40→23:32)
[2022-10-19] MEDS: ALBUTEROL SULFATE 2.5 MG/3 ML NEBU NEB SCH ×6 (03:40→23:32)
[2022-10-19] MEDS: HYDROCODONE/APAP 10-325 MG TABLET GT PRN ×2 (05:10→13:52)
[2022-10-19] MEDS: MIDODRINE HCL 5 MG TABLET GT SCH ×3 (06:00→21:34)
[2022-10-19] MEDS: OMEPRAZOLE 20 MG CAPSULE.DR GT SCH (06:35)
[2022-10-19] MEDS: OMEGA-3 FATTY ACIDS/FISH OIL CAPSULE GT SCH ×2 (06:35→18:27)
[2022-10-19] MEDS: ARGININE/GLUTAMINE/CALCIUM BMB 1 EACH POWD.PACK GT SCH ×2 (06:35→18:27)
[2022-10-19] MEDS: PROTEIN SUPPLEMENT (PROSTAT) 30 ML LIQUID GT SCH ×3 (06:36→21:35)
[2022-10-19] MEDS: ACETAMINOPHEN 650 MG/20.3 ML LIQUID UDC GT SCH ×2 (08:30→21:28)
[2022-10-19] MEDS: HYDROGEN PEROXIDE 3% 118 ML BOTTLE TP SCH ×2 (09:15→22:00)
[2022-10-19] MEDS: ACIDOPHILUS/BULGARICUS CHEW TAB GT SCH ×2 (09:32→21:34)
[2022-10-19] MEDS: REMEDY ESSENTIAL ZINC PASTE 113 GM TP SCH ×2 (09:33→21:34)
[2022-10-19] MEDS: VITAMINS A AND D OINT 42 GM TUBE TP SCH ×2 (09:33→21:34)
[2022-10-19] MEDS: SODIUM HYPOCHLORITE 0.125% (QUARTER STRENGTH) 473 ML BOTTLE TP SCH ×3 (09:33→21:34)
[2022-10-19] MEDS: NITROFURANTOIN 25 MG/5 ML GT SCH (09:33)
[2022-10-19] MEDS: SERTRALINE HCL 50 MG TABLET GT SCH (12:00)
[2022-10-19] MEDS: APIXABAN 2.5 MG TABLET GT SCH (21:33)
[2022-10-19] MEDS: MULTIVIT, IRON, MIN NO. 8, FA TABLET GT SCH (21:34)
[2022-10-19] MEDS: ASCORBIC ACID 500 MG TABLET GT SCH (21:34)
[2022-10-19] MEDS: SIMVASTATIN 10 MG TABLET GT SCH (21:34)
[2022-10-19] MEDS: ESTROGENS,CONJU VAGINAL CREAM 42.5 GM TUBE VG SCH (21:34)
[2022-10-20] VITALS (14 sets, daily range): TEMP 97.9–98.1; O2SAT 96–99
[2022-10-20] MEDS: IPRATROPIUM BROMIDE 0.5 MG/2.5 ML NEBU NEB SCH ×6 (03:25→23:04)
[2022-10-20] MEDS: ALBUTEROL SULFATE 2.5 MG/3 ML NEBU NEB SCH ×6 (03:25→23:04)
[2022-10-20] MEDS: MIDODRINE HCL 5 MG TABLET GT SCH ×3 (06:00→21:07)
[2022-10-20] MEDS: OMEGA-3 FATTY ACIDS/FISH OIL CAPSULE GT SCH ×2 (06:26→18:21)
[2022-10-20] MEDS: OMEPRAZOLE 20 MG CAPSULE.DR GT SCH (06:26)
[2022-10-20] MEDS: ARGININE/GLUTAMINE/CALCIUM BMB 1 EACH POWD.PACK GT SCH ×2 (06:26→18:32)
[2022-10-20] MEDS: BACLOFEN 10 MG TABLET GT SCH ×4 (06:26→18:32)
[2022-10-20] MEDS: PROTEIN SUPPLEMENT (PROSTAT) 30 ML LIQUID GT SCH ×3 (06:27→21:08)
[2022-10-20] MEDS: HYDROGEN PEROXIDE 3% 118 ML BOTTLE TP SCH ×2 (08:14→21:04)
[2022-10-20] MEDS: ACETAMINOPHEN 650 MG/20.3 ML LIQUID UDC GT SCH ×2 (08:30→20:59)
[2022-10-20] MEDS: NITROFURANTOIN 25 MG/5 ML GT SCH (09:00)
[2022-10-20] MEDS: ACIDOPHILUS/BULGARICUS CHEW TAB GT SCH ×2 (09:00→21:01)
[2022-10-20] MEDS: APIXABAN 2.5 MG TABLET GT SCH ×2 (09:00→21:01)
[2022-10-20] MEDS: VITAMINS A AND D OINT 42 GM TUBE TP SCH ×2 (09:00→21:04)
[2022-10-20] MEDS: REMEDY ESSENTIAL ZINC PASTE 113 GM TP SCH ×2 (09:00→21:04)
[2022-10-20] MEDS: SODIUM HYPOCHLORITE 0.125% (QUARTER STRENGTH) 473 ML BOTTLE TP SCH ×2 (09:00→21:04)
[2022-10-20] MEDS: SERTRALINE HCL 50 MG TABLET GT SCH (12:51)
[2022-10-20] MEDS: ASCORBIC ACID 500 MG TABLET GT SCH (21:02)
[2022-10-20] MEDS: MULTIVIT, IRON, MIN NO. 8, FA TABLET GT SCH (21:02)
[2022-10-20] MEDS: SIMVASTATIN 10 MG TABLET GT SCH (21:04)
[2022-10-20] MEDS: ESTROGENS,CONJU VAGINAL CREAM 42.5 GM TUBE VG SCH (21:09)
[2022-10-20] MEDS: GLUCERNA 1.2 1000ML LIQUID GT PRN (23:57)
[2022-10-21] VITALS (16 sets, daily range): TEMP 97.6–97.7; O2SAT 96–99
[2022-10-21] MEDS: ALBUTEROL SULFATE 2.5 MG/3 ML NEBU NEB SCH ×5 (03:53→21:45)
[2022-10-21] MEDS: IPRATROPIUM BROMIDE 0.5 MG/2.5 ML NEBU NEB SCH ×5 (03:53→21:45)
[2022-10-21] MEDS: PROTEIN SUPPLEMENT (PROSTAT) 30 ML LIQUID GT SCH ×3 (05:11→22:00)
[2022-10-21] MEDS: OMEGA-3 FATTY ACIDS/FISH OIL CAPSULE GT SCH ×2 (05:12→17:39)
[2022-10-21] MEDS: MIDODRINE HCL 5 MG TABLET GT SCH ×3 (05:12→22:00)
[2022-10-21] MEDS: BACLOFEN 10 MG TABLET GT SCH ×4 (05:12→17:39)
[2022-10-21] MEDS: OMEPRAZOLE 20 MG CAPSULE.DR GT SCH (05:12)
[2022-10-21] MEDS: ARGININE/GLUTAMINE/CALCIUM BMB 1 EACH POWD.PACK GT SCH ×2 (05:12→17:39)
[2022-10-21] MEDS: HYDROCODONE/APAP 10-325 MG TABLET GT PRN ×2 (05:39→17:45)
[2022-10-21] MEDS: HYDROGEN PEROXIDE 3% 118 ML BOTTLE TP SCH ×2 (07:55→21:46)
[2022-10-21] MEDS: ACETAMINOPHEN 650 MG/20.3 ML LIQUID UDC GT SCH ×2 (08:49→20:30)
[2022-10-21] MEDS: ACIDOPHILUS/BULGARICUS CHEW TAB GT SCH ×2 (08:50→21:00)
[2022-10-21] MEDS: NITROFURANTOIN 25 MG/5 ML GT SCH (08:50)
[2022-10-21] MEDS: APIXABAN 2.5 MG TABLET GT SCH ×2 (08:50→21:00)
[2022-10-21] MEDS: REMEDY ESSENTIAL ZINC PASTE 113 GM TP SCH ×2 (08:53→21:00)
[2022-10-21] MEDS: SODIUM HYPOCHLORITE 0.125% (QUARTER STRENGTH) 473 ML BOTTLE TP SCH ×3 (08:53→15:00)
[2022-10-21] MEDS: VITAMINS A AND D OINT 42 GM TUBE TP SCH ×2 (08:54→21:00)
[2022-10-21] MEDS ORDERED: SODIUM HYPOCHLORITE 0.125% (QUARTER STRENGTH) 473 ML BOTTLE TP SCH (09:00)
[2022-10-21] MEDS: SERTRALINE HCL 50 MG TABLET GT SCH (12:00)
[2022-10-21] MEDS: SIMVASTATIN 10 MG TABLET GT SCH (21:00)
[2022-10-21] MEDS: MULTIVIT, IRON, MIN NO. 8, FA TABLET GT SCH (21:00)
[2022-10-21] MEDS: ESTROGENS,CONJU VAGINAL CREAM 42.5 GM TUBE VG SCH (21:00)
[2022-10-21] MEDS: ASCORBIC ACID 500 MG TABLET GT SCH (21:00)
[2022-10-22] VITALS (15 sets, daily range): TEMP 98–98.9; O2SAT 96–99
[2022-10-22] MEDS: BACLOFEN 10 MG TABLET GT SCH ×4 (00:13→17:11)
[2022-10-22] MEDS: IPRATROPIUM BROMIDE 0.5 MG/2.5 ML NEBU NEB SCH ×7 (01:22→23:45)
[2022-10-22] MEDS: ALBUTEROL SULFATE 2.5 MG/3 ML NEBU NEB SCH ×7 (01:22→23:45)
[2022-10-22] MEDS: OMEGA-3 FATTY ACIDS/FISH OIL CAPSULE GT SCH ×2 (05:03→17:11)
[2022-10-22] MEDS: ARGININE/GLUTAMINE/CALCIUM BMB 1 EACH POWD.PACK GT SCH ×2 (05:03→17:11)
[2022-10-22] MEDS: OMEPRAZOLE 20 MG CAPSULE.DR GT SCH (05:06)
[2022-10-22] MEDS: MIDODRINE HCL 5 MG TABLET GT SCH ×3 (05:07→22:00)
[2022-10-22] MEDS: PROTEIN SUPPLEMENT (PROSTAT) 30 ML LIQUID GT SCH ×3 (05:07→22:00)
[2022-10-22] MEDS: ACETAMINOPHEN 650 MG/20.3 ML LIQUID UDC GT SCH ×2 (08:43→20:30)
[2022-10-22] MEDS: APIXABAN 2.5 MG TABLET GT SCH ×2 (08:45→21:00)
[2022-10-22] MEDS: ACIDOPHILUS/BULGARICUS CHEW TAB GT SCH ×2 (08:49→21:00)
[2022-10-22] MEDS: NITROFURANTOIN 25 MG/5 ML GT SCH (08:50)
[2022-10-22] MEDS: REMEDY ESSENTIAL ZINC PASTE 113 GM TP SCH ×2 (08:50→21:00)
[2022-10-22] MEDS: VITAMINS A AND D OINT 42 GM TUBE TP SCH ×2 (08:50→21:00)
[2022-10-22] MEDS: HYDROGEN PEROXIDE 3% 118 ML BOTTLE TP SCH ×2 (09:53→21:00)
[2022-10-22] MEDS: SERTRALINE HCL 50 MG TABLET GT SCH (12:00)
[2022-10-22] MEDS: ESTROGENS,CONJU VAGINAL CREAM 42.5 GM TUBE VG SCH (21:00)
[2022-10-22] MEDS: SIMVASTATIN 10 MG TABLET GT SCH (21:00)
[2022-10-22] MEDS: ASCORBIC ACID 500 MG TABLET GT SCH (21:00)
[2022-10-22] MEDS: MULTIVIT, IRON, MIN NO. 8, FA TABLET GT SCH (21:00)
[2022-10-22] MEDS: TEMAZEPAM 7.5 MG CAPSULE GT PRN (22:30)
[2022-10-23] VITALS (15 sets, daily range): TEMP 98.5–98.6; O2SAT 96–99
[2022-10-23] MEDS: ALBUTEROL SULFATE 2.5 MG/3 ML NEBU NEB SCH ×6 (03:49→23:00)
[2022-10-23] MEDS: IPRATROPIUM BROMIDE 0.5 MG/2.5 ML NEBU NEB SCH ×6 (03:49→23:00)
[2022-10-23] MEDS: ARGININE/GLUTAMINE/CALCIUM BMB 1 EACH POWD.PACK GT SCH ×2 (05:34→18:07)
[2022-10-23] MEDS: OMEPRAZOLE 20 MG CAPSULE.DR GT SCH (05:34)
[2022-10-23] MEDS: OMEGA-3 FATTY ACIDS/FISH OIL CAPSULE GT SCH ×2 (05:34→18:07)
[2022-10-23] MEDS: BACLOFEN 10 MG TABLET GT SCH ×5 (05:34→23:30)
[2022-10-23] MEDS: PROTEIN SUPPLEMENT (PROSTAT) 30 ML LIQUID GT SCH ×3 (05:37→20:45)
[2022-10-23] MEDS: MIDODRINE HCL 5 MG TABLET GT SCH ×3 (06:00→21:00)
[2022-10-23] MEDS: HYDROGEN PEROXIDE 3% 118 ML BOTTLE TP SCH ×2 (07:19→20:44)
[2022-10-23] MEDS: ACIDOPHILUS/BULGARICUS CHEW TAB GT SCH ×2 (08:31→20:46)
[2022-10-23] MEDS: NITROFURANTOIN 25 MG/5 ML GT SCH (08:31)
[2022-10-23] MEDS: APIXABAN 2.5 MG TABLET GT SCH ×2 (08:31→20:59)
[2022-10-23] MEDS: ACETAMINOPHEN 650 MG/20.3 ML LIQUID UDC GT SCH ×2 (08:31→20:49)
[2022-10-23] MEDS: VITAMINS A AND D OINT 42 GM TUBE TP SCH ×2 (08:32→20:45)
[2022-10-23] MEDS: REMEDY ESSENTIAL ZINC PASTE 113 GM TP SCH ×2 (08:32→20:45)
[2022-10-23] MEDS: GLUCERNA 1.2 1000ML LIQUID GT PRN (11:01)
[2022-10-23] MEDS: SERTRALINE HCL 50 MG TABLET GT SCH (12:25)
[2022-10-23] MEDS: ESTROGENS,CONJU VAGINAL CREAM 42.5 GM TUBE VG SCH (20:46)
[2022-10-23] MEDS: SIMVASTATIN 10 MG TABLET GT SCH (20:46)
[2022-10-23] MEDS: MULTIVIT, IRON, MIN NO. 8, FA TABLET GT SCH (20:46)
[2022-10-23] MEDS: ASCORBIC ACID 500 MG TABLET GT SCH (20:58)
[2022-10-24] VITALS (14 sets, daily range): TEMP 98.8–99.5; O2SAT 97–99
[2022-10-24] MEDS: ALBUTEROL SULFATE 2.5 MG/3 ML NEBU NEB SCH ×6 (03:05→23:13)
[2022-10-24] MEDS: IPRATROPIUM BROMIDE 0.5 MG/2.5 ML NEBU NEB SCH ×6 (03:05→23:13)
[2022-10-24] MEDS: BACLOFEN 10 MG TABLET GT SCH ×3 (05:04→17:02)
[2022-10-24] MEDS: ARGININE/GLUTAMINE/CALCIUM BMB 1 EACH POWD.PACK GT SCH ×2 (05:04→17:02)
[2022-10-24] MEDS: PROTEIN SUPPLEMENT (PROSTAT) 30 ML LIQUID GT SCH ×3 (05:04→21:14)
[2022-10-24] MEDS: OMEGA-3 FATTY ACIDS/FISH OIL CAPSULE GT SCH ×2 (05:04→17:02)
[2022-10-24] MEDS: OMEPRAZOLE 20 MG CAPSULE.DR GT SCH (05:04)
[2022-10-24 07:29] LABS: ALBUMIN 2.7 g/dL (3.4-5.0); BILIRUBIN,TOTAL 0.5 mg/dL (0.2-1.0); CALCIUM 9.8 mg/dL (8.5-10.1); CREATININE 0.9 mg/dL (0.6-1.3); POTASSIUM 3.5 mmol/L (3.5-5.1); TOTAL PROTEIN, SERUM 9.2 g/dL (6.4-8.2)
[2022-10-24] MEDS: ACETAMINOPHEN 650 MG/20.3 ML LIQUID UDC GT SCH ×2 (08:30→20:57)
[2022-10-24] MEDS: HYDROGEN PEROXIDE 3% 118 ML BOTTLE TP SCH ×2 (09:00→19:10)
[2022-10-24] MEDS: NITROFURANTOIN 25 MG/5 ML GT SCH (09:47)
[2022-10-24] MEDS: SODIUM HYPOCHLORITE 0.125% (QUARTER STRENGTH) 473 ML BOTTLE TP SCH ×2 (09:47→09:48)
[2022-10-24] MEDS: APIXABAN 2.5 MG TABLET GT SCH (09:47)
[2022-10-24] MEDS: ACIDOPHILUS/BULGARICUS CHEW TAB GT SCH ×2 (09:47→20:57)
[2022-10-24] MEDS: REMEDY ESSENTIAL ZINC PASTE 113 GM TP SCH ×2 (09:48→21:13)
[2022-10-24] MEDS: VITAMINS A AND D OINT 42 GM TUBE TP SCH ×2 (09:48→21:13)
[2022-10-24] MEDS: SERTRALINE HCL 50 MG TABLET GT SCH (12:24)
[2022-10-24] MEDS: MIDODRINE HCL 5 MG TABLET GT SCH ×2 (14:00→21:14)
[2022-10-24] MEDS: HYDROCODONE/APAP 10-325 MG TABLET GT PRN (17:55)
[2022-10-24] MEDS: MULTIVIT, IRON, MIN NO. 8, FA TABLET GT SCH (21:12)
[2022-10-24] MEDS: SIMVASTATIN 10 MG TABLET GT SCH (21:13)
[2022-10-24] MEDS: ASCORBIC ACID 500 MG TABLET GT SCH (21:13)
[2022-10-24] MEDS: ESTROGENS,CONJU VAGINAL CREAM 42.5 GM TUBE VG SCH (21:13)
[2022-10-25] VITALS (14 sets, daily range): TEMP 97.5–97.8; O2SAT 97–99
[2022-10-25] MEDS: BACLOFEN 10 MG TABLET GT SCH ×4 (00:13→17:21)
[2022-10-25] MEDS: ALBUTEROL SULFATE 2.5 MG/3 ML NEBU NEB SCH ×6 (03:30→23:49)
[2022-10-25] MEDS: IPRATROPIUM BROMIDE 0.5 MG/2.5 ML NEBU NEB SCH ×6 (03:30→23:49)
[2022-10-25] MEDS: PROTEIN SUPPLEMENT (PROSTAT) 30 ML LIQUID GT SCH ×3 (05:59→21:56)
[2022-10-25] MEDS: OMEGA-3 FATTY ACIDS/FISH OIL CAPSULE GT SCH ×2 (05:59→17:21)
[2022-10-25] MEDS: OMEPRAZOLE 20 MG CAPSULE.DR GT SCH (05:59)
[2022-10-25] MEDS: MIDODRINE HCL 5 MG TABLET GT SCH ×3 (05:59→21:56)
[2022-10-25] MEDS: ARGININE/GLUTAMINE/CALCIUM BMB 1 EACH POWD.PACK GT SCH ×2 (05:59→17:21)
[2022-10-25] MEDS: ACETAMINOPHEN 650 MG/20.3 ML LIQUID UDC GT SCH ×2 (08:30→20:30)
[2022-10-25] MEDS: HYDROGEN PEROXIDE 3% 118 ML BOTTLE TP SCH ×2 (09:00→21:00)
[2022-10-25] MEDS: NITROFURANTOIN 25 MG/5 ML GT SCH (09:47)
[2022-10-25] MEDS: ACIDOPHILUS/BULGARICUS CHEW TAB GT SCH ×2 (09:47→21:51)
[2022-10-25] MEDS: VITAMINS A AND D OINT 42 GM TUBE TP SCH ×2 (09:49→21:55)
[2022-10-25] MEDS: REMEDY ESSENTIAL ZINC PASTE 113 GM TP SCH ×2 (09:49→21:55)
[2022-10-25] MEDS: SERTRALINE HCL 50 MG TABLET GT SCH (12:00)
[2022-10-25] MEDS: HYDROCODONE/APAP 10-325 MG TABLET GT PRN (17:21)
[2022-10-25] MEDS: FOSFOMYCIN TROMETHAMINE 3 GM PACKET GT SCH (21:54)
[2022-10-25] MEDS: ASCORBIC ACID 500 MG TABLET GT SCH (21:54)
[2022-10-25] MEDS: MULTIVIT, IRON, MIN NO. 8, FA TABLET GT SCH (21:54)
[2022-10-25] MEDS: SIMVASTATIN 10 MG TABLET GT SCH (21:55)
[2022-10-25] MEDS: ESTROGENS,CONJU VAGINAL CREAM 42.5 GM TUBE VG SCH (21:55)
[2022-10-26] VITALS (14 sets, daily range): TEMP 97.8–98.1; O2SAT 97–99
[2022-10-26] MEDS: ALBUTEROL SULFATE 2.5 MG/3 ML NEBU NEB SCH ×6 (00:03→19:30)
[2022-10-26] MEDS: BACLOFEN 10 MG TABLET GT SCH ×5 (00:35→23:03)
[2022-10-26] MEDS: HYDROCODONE/APAP 10-325 MG TABLET GT PRN ×2 (00:36→14:08)
[2022-10-26] MEDS: IPRATROPIUM BROMIDE 0.5 MG/2.5 ML NEBU NEB SCH ×5 (03:34→19:30)
[2022-10-26] MEDS: PROTEIN SUPPLEMENT (PROSTAT) 30 ML LIQUID GT SCH ×3 (06:00→22:25)
[2022-10-26] MEDS: OMEGA-3 FATTY ACIDS/FISH OIL CAPSULE GT SCH ×2 (06:59→18:43)
[2022-10-26] MEDS: ARGININE/GLUTAMINE/CALCIUM BMB 1 EACH POWD.PACK GT SCH ×2 (06:59→18:43)
[2022-10-26] MEDS: OMEPRAZOLE 20 MG CAPSULE.DR GT SCH (06:59)
[2022-10-26] MEDS: MIDODRINE HCL 5 MG TABLET GT SCH ×3 (07:00→22:00)
[2022-10-26] MEDS: GLUCERNA 1.2 1000ML LIQUID GT PRN (07:00)
[2022-10-26] MEDS: ACETAMINOPHEN 650 MG/20.3 ML LIQUID UDC GT SCH ×2 (08:30→20:30)
[2022-10-26] MEDS: HYDROGEN PEROXIDE 3% 118 ML BOTTLE TP SCH ×2 (08:51→21:05)
[2022-10-26] MEDS: SODIUM HYPOCHLORITE 0.125% (QUARTER STRENGTH) 473 ML BOTTLE TP SCH ×2 (09:00)
[2022-10-26] MEDS: ACIDOPHILUS/BULGARICUS CHEW TAB GT SCH ×2 (09:00→21:00)
[2022-10-26] MEDS: NITROFURANTOIN 25 MG/5 ML GT SCH (09:00)
[2022-10-26] MEDS: REMEDY ESSENTIAL ZINC PASTE 113 GM TP SCH ×2 (09:00→21:00)
[2022-10-26] MEDS: VITAMINS A AND D OINT 42 GM TUBE TP SCH ×2 (09:00→21:00)
[2022-10-26] MEDS: SERTRALINE HCL 50 MG TABLET GT SCH (12:14)
[2022-10-26] MEDS: MULTIVIT, IRON, MIN NO. 8, FA TABLET GT SCH (21:00)
[2022-10-26] MEDS: ESTROGENS,CONJU VAGINAL CREAM 42.5 GM TUBE VG SCH (21:00)
[2022-10-26] MEDS: ASCORBIC ACID 500 MG TABLET GT SCH (21:00)
[2022-10-26] MEDS: SIMVASTATIN 10 MG TABLET GT SCH (21:00)
[2022-10-27] VITALS (14 sets, daily range): TEMP 98.8–99; O2SAT 97–99
[2022-10-27] MEDS: IPRATROPIUM BROMIDE 0.5 MG/2.5 ML NEBU NEB SCH ×8 (00:02→23:33)
[2022-10-27] MEDS: ALBUTEROL SULFATE 2.5 MG/3 ML NEBU NEB SCH ×7 (00:03→23:34)
[2022-10-27] MEDS: PROTEIN SUPPLEMENT (PROSTAT) 30 ML LIQUID GT SCH ×3 (05:44→21:48)
[2022-10-27] MEDS: BACLOFEN 10 MG TABLET GT SCH ×3 (05:44→18:33)
[2022-10-27] MEDS: OMEPRAZOLE 20 MG CAPSULE.DR GT SCH (05:44)
[2022-10-27] MEDS: ARGININE/GLUTAMINE/CALCIUM BMB 1 EACH POWD.PACK GT SCH ×2 (05:44→18:33)
[2022-10-27] MEDS: MIDODRINE HCL 5 MG TABLET GT SCH ×3 (05:44→21:48)
[2022-10-27] MEDS: OMEGA-3 FATTY ACIDS/FISH OIL CAPSULE GT SCH ×2 (05:44→18:32)
[2022-10-27] MEDS: HYDROCODONE/APAP 10-325 MG TABLET GT PRN (08:05)
[2022-10-27] MEDS: ACIDOPHILUS/BULGARICUS CHEW TAB GT SCH ×2 (08:10→21:48)
[2022-10-27] MEDS: REMEDY ESSENTIAL ZINC PASTE 113 GM TP SCH ×2 (08:13→21:48)
[2022-10-27] MEDS: VITAMINS A AND D OINT 42 GM TUBE TP SCH ×2 (08:13→21:48)
[2022-10-27] MEDS: NITROFURANTOIN 25 MG/5 ML GT SCH (08:13)
[2022-10-27] MEDS: ACETAMINOPHEN 650 MG/20.3 ML LIQUID UDC GT SCH ×2 (08:26→20:30)
[2022-10-27] MEDS: HYDROGEN PEROXIDE 3% 118 ML BOTTLE TP SCH ×2 (09:00→19:17)
[2022-10-27] MEDS: GLUCERNA 1.2 1000ML LIQUID GT PRN (10:54)
[2022-10-27] MEDS: SERTRALINE HCL 50 MG TABLET GT SCH (12:00)
[2022-10-27] MEDS: TEMAZEPAM 7.5 MG CAPSULE GT PRN (21:45)
[2022-10-27] MEDS: ASCORBIC ACID 500 MG TABLET GT SCH (21:48)
[2022-10-27] MEDS: SIMVASTATIN 10 MG TABLET GT SCH (21:48)
[2022-10-27] MEDS: MULTIVIT, IRON, MIN NO. 8, FA TABLET GT SCH (21:48)
[2022-10-27] MEDS: ESTROGENS,CONJU VAGINAL CREAM 42.5 GM TUBE VG SCH (21:48)
[2022-10-28] VITALS (14 sets, daily range): TEMP 98.2–98.6; O2SAT 97–99
[2022-10-28] MEDS: BACLOFEN 10 MG TABLET GT SCH ×4 (00:27→18:26)
[2022-10-28] MEDS: IPRATROPIUM BROMIDE 0.5 MG/2.5 ML NEBU NEB SCH ×6 (03:01→23:09)
[2022-10-28] MEDS: ALBUTEROL SULFATE 2.5 MG/3 ML NEBU NEB SCH ×6 (03:01→23:09)
[2022-10-28] MEDS: OMEPRAZOLE 20 MG CAPSULE.DR GT SCH (05:19)
[2022-10-28] MEDS: OMEGA-3 FATTY ACIDS/FISH OIL CAPSULE GT SCH ×2 (05:19→18:26)
[2022-10-28] MEDS: ARGININE/GLUTAMINE/CALCIUM BMB 1 EACH POWD.PACK GT SCH ×2 (05:19→18:26)
[2022-10-28] MEDS: PROTEIN SUPPLEMENT (PROSTAT) 30 ML LIQUID GT SCH ×3 (05:20→21:53)
[2022-10-28] MEDS: MIDODRINE HCL 5 MG TABLET GT SCH ×3 (05:20→21:53)
[2022-10-28] MEDS: HYDROGEN PEROXIDE 3% 118 ML BOTTLE TP SCH ×2 (07:50→19:17)
[2022-10-28] MEDS: ACETAMINOPHEN 650 MG/20.3 ML LIQUID UDC GT SCH ×2 (08:30→20:30)
[2022-10-28] MEDS: SODIUM HYPOCHLORITE 0.125% (QUARTER STRENGTH) 473 ML BOTTLE TP SCH ×2 (09:00)
[2022-10-28] MEDS: ACIDOPHILUS/BULGARICUS CHEW TAB GT SCH ×2 (09:32→21:48)
[2022-10-28] MEDS: REMEDY ESSENTIAL ZINC PASTE 113 GM TP SCH ×2 (09:34→21:53)
[2022-10-28] MEDS: VITAMINS A AND D OINT 42 GM TUBE TP SCH ×2 (09:34→21:53)
[2022-10-28] MEDS: NITROFURANTOIN 25 MG/5 ML GT SCH (09:34)
[2022-10-28] MEDS: SERTRALINE HCL 50 MG TABLET GT SCH (12:00)
[2022-10-28] MEDS: GLUCERNA 1.2 1000ML LIQUID GT PRN (18:27)
[2022-10-28] MEDS: MULTIVIT, IRON, MIN NO. 8, FA TABLET GT SCH (21:51)
[2022-10-28] MEDS: ASCORBIC ACID 500 MG TABLET GT SCH (21:51)
[2022-10-28] MEDS: SIMVASTATIN 10 MG TABLET GT SCH (21:52)
[2022-10-28] MEDS: ESTROGENS,CONJU VAGINAL CREAM 42.5 GM TUBE VG SCH (21:53)
[2022-10-29] VITALS (14 sets, daily range): TEMP 97.7–98.5; O2SAT 97–99
[2022-10-29] MEDS: BACLOFEN 10 MG TABLET GT SCH ×5 (00:19→23:19)
[2022-10-29] MEDS: IPRATROPIUM BROMIDE 0.5 MG/2.5 ML NEBU NEB SCH ×6 (03:19→23:32)
[2022-10-29] MEDS: ALBUTEROL SULFATE 2.5 MG/3 ML NEBU NEB SCH ×6 (03:19→23:32)
[2022-10-29] MEDS: OMEGA-3 FATTY ACIDS/FISH OIL CAPSULE GT SCH ×2 (05:20→18:17)
[2022-10-29] MEDS: OMEPRAZOLE 20 MG CAPSULE.DR GT SCH (05:20)
[2022-10-29] MEDS: MIDODRINE HCL 5 MG TABLET GT SCH ×3 (05:20→21:11)
[2022-10-29] MEDS: ARGININE/GLUTAMINE/CALCIUM BMB 1 EACH POWD.PACK GT SCH ×2 (05:20→18:17)
[2022-10-29] MEDS: PROTEIN SUPPLEMENT (PROSTAT) 30 ML LIQUID GT SCH ×3 (05:21→21:11)
[2022-10-29] MEDS: ACETAMINOPHEN 650 MG/20.3 ML LIQUID UDC GT SCH ×2 (08:30→21:10)
[2022-10-29] MEDS: HYDROGEN PEROXIDE 3% 118 ML BOTTLE TP SCH ×2 (09:25→19:22)
[2022-10-29] MEDS: ACIDOPHILUS/BULGARICUS CHEW TAB GT SCH ×2 (09:30→21:10)
[2022-10-29] MEDS: VITAMINS A AND D OINT 42 GM TUBE TP SCH ×2 (09:32→21:10)
[2022-10-29] MEDS: NITROFURANTOIN 25 MG/5 ML GT SCH (09:32)
[2022-10-29] MEDS: REMEDY ESSENTIAL ZINC PASTE 113 GM TP SCH ×2 (09:32→21:10)
[2022-10-29] MEDS: SERTRALINE HCL 50 MG TABLET GT SCH (12:00)
[2022-10-29] MEDS: APIXABAN 2.5 MG TABLET GT SCH (21:00)
[2022-10-29] MEDS: ESTROGENS,CONJU VAGINAL CREAM 42.5 GM TUBE VG SCH (21:10)
[2022-10-29] MEDS: MULTIVIT, IRON, MIN NO. 8, FA TABLET GT SCH (21:10)
[2022-10-29] MEDS: ASCORBIC ACID 500 MG TABLET GT SCH (21:10)
[2022-10-29] MEDS: SIMVASTATIN 10 MG TABLET GT SCH (21:10)
[2022-10-30] VITALS (13 sets, daily range): TEMP 97.9–98.6; O2SAT 96–99
[2022-10-30] MEDS: GLUCERNA 1.2 1000ML LIQUID GT PRN (01:34)
[2022-10-30] MEDS: IPRATROPIUM BROMIDE 0.5 MG/2.5 ML NEBU NEB SCH ×5 (03:12→19:30)
[2022-10-30] MEDS: ALBUTEROL SULFATE 2.5 MG/3 ML NEBU NEB SCH ×5 (03:12→19:30)
[2022-10-30] MEDS: BACLOFEN 10 MG TABLET GT SCH ×3 (05:32→17:49)
[2022-10-30] MEDS: MIDODRINE HCL 5 MG TABLET GT SCH ×3 (05:32→22:00)
[2022-10-30] MEDS: OMEPRAZOLE 20 MG CAPSULE.DR GT SCH (05:32)
[2022-10-30] MEDS: ARGININE/GLUTAMINE/CALCIUM BMB 1 EACH POWD.PACK GT SCH ×2 (05:32→17:49)
[2022-10-30] MEDS: PROTEIN SUPPLEMENT (PROSTAT) 30 ML LIQUID GT SCH ×3 (05:32→22:00)
[2022-10-30] MEDS: OMEGA-3 FATTY ACIDS/FISH OIL CAPSULE GT SCH ×2 (05:32→17:49)
[2022-10-30] MEDS: ACETAMINOPHEN 650 MG/20.3 ML LIQUID UDC GT SCH ×2 (08:23→20:30)
[2022-10-30] MEDS: ACIDOPHILUS/BULGARICUS CHEW TAB GT SCH ×2 (08:24→21:00)
[2022-10-30] MEDS: NITROFURANTOIN 25 MG/5 ML GT SCH (08:24)
[2022-10-30] MEDS: REMEDY ESSENTIAL ZINC PASTE 113 GM TP SCH ×2 (08:24→21:00)
[2022-10-30] MEDS: APIXABAN 2.5 MG TABLET GT SCH ×2 (08:24→21:00)
[2022-10-30] MEDS: VITAMINS A AND D OINT 42 GM TUBE TP SCH ×2 (08:25→21:00)
[2022-10-30] MEDS: HYDROGEN PEROXIDE 3% 118 ML BOTTLE TP SCH ×2 (10:24→21:06)
[2022-10-30] MEDS: SERTRALINE HCL 50 MG TABLET GT SCH (11:54)
[2022-10-30] MEDS: ASCORBIC ACID 500 MG TABLET GT SCH (21:00)
[2022-10-30] MEDS: ESTROGENS,CONJU VAGINAL CREAM 42.5 GM TUBE VG SCH (21:00)
[2022-10-30] MEDS: VANCOMYCIN FOR PO/GT/NG USE GT SCH (21:00)
[2022-10-30] MEDS: MULTIVIT, IRON, MIN NO. 8, FA TABLET GT SCH (21:00)
[2022-10-30] MEDS: SIMVASTATIN 10 MG TABLET GT SCH (21:00)
[2022-10-31] VITALS (12 sets, daily range): TEMP 98.3–99.2; O2SAT 97–99
[2022-10-31] MEDS: BACLOFEN 10 MG TABLET GT SCH ×4 (00:02→17:07)
[2022-10-31] MEDS: IPRATROPIUM BROMIDE 0.5 MG/2.5 ML NEBU NEB SCH ×7 (00:21→23:44)
[2022-10-31] MEDS: ALBUTEROL SULFATE 2.5 MG/3 ML NEBU NEB SCH ×7 (00:21→23:44)
[2022-10-31 06:27] LABS: BASOPHILS # (AUTO) 0.1 K/UL (0.0-0.2); DIFFERENTIAL COMMENT 0; EOSINOPHILS # (AUTO) 0.5 K/uL (0.0-0.7); EOSINOPHILS % (AUTO) 5.7 % (0.0-7.0); HEMATOCRIT 35.3 % (31.2-41.9); HEMOGLOBIN 10.9 g/dL (10.9-14.3); LYMPHOCYTES # (AUTO) 2.2 K/uL (0.8-4.8); LYMPHOCYTES % (AUTO) 23.8 % (20.5-51.5); MEAN CORPUSCULAR HEMOGLOBIN 25.5 uug (24.7-32.8); MEAN CORPUSCULAR HGB CONC 31 g/dL (32.3-35.6); MEAN CORPUSCULAR VOLUME 82.4 fL (75.5-95.3); MONOCYTES % (AUTO) 10.9 % (0.0-11.0); NEUTROPHILS # (AUTO) 5.4 K/uL (1.8-8.9); NEUTROPHILS % (AUTO) 58.6 % (38.5-71.5); PLATELET COUNT (AUTO) 199 K/uL (179-408); RED BLOOD CELL COUNT(AUTO) 4.28 MIL/uL (3.63-4.92); RED CELL DISTRIBUTION WIDTH 20.4 % (12.3-17.7); WHITE BLOOD COUNT (AUTO) 9.1 K/uL (3.8-11.8)
[2022-10-31] MEDS: ARGININE/GLUTAMINE/CALCIUM BMB 1 EACH POWD.PACK GT SCH ×2 (06:48→17:07)
[2022-10-31] MEDS: OMEGA-3 FATTY ACIDS/FISH OIL CAPSULE GT SCH ×2 (06:48→17:07)
[2022-10-31] MEDS: OMEPRAZOLE 20 MG CAPSULE.DR GT SCH (06:49)
[2022-10-31] MEDS: MIDODRINE HCL 5 MG TABLET GT SCH ×3 (06:49→22:00)
[2022-10-31] MEDS: PROTEIN SUPPLEMENT (PROSTAT) 30 ML LIQUID GT SCH ×3 (06:50→22:04)
[2022-10-31 07:30] LABS: ALBUMIN 2.7 g/dL (3.4-5.0); BILIRUBIN,TOTAL 0.4 mg/dL (0.2-1.0); CALCIUM 9.3 mg/dL (8.5-10.1); CREATININE 0.9 mg/dL (0.6-1.3); POTASSIUM 3.1 mmol/L (3.5-5.1)
[2022-10-31] MEDS: ACETAMINOPHEN 650 MG/20.3 ML LIQUID UDC GT SCH ×2 (08:30→20:48)
[2022-10-31] MEDS: APIXABAN 2.5 MG TABLET GT SCH ×2 (09:00→21:12)
[2022-10-31] MEDS: NITROFURANTOIN 25 MG/5 ML GT SCH (09:36)
[2022-10-31] MEDS: ACIDOPHILUS/BULGARICUS CHEW TAB GT SCH ×2 (09:36→20:48)
[2022-10-31] MEDS: VANCOMYCIN FOR PO/GT/NG USE GT SCH ×4 (09:36→20:48)
[2022-10-31] MEDS: SODIUM HYPOCHLORITE 0.125% (QUARTER STRENGTH) 473 ML BOTTLE TP SCH ×2 (09:36)
[2022-10-31] MEDS: REMEDY ESSENTIAL ZINC PASTE 113 GM TP SCH ×2 (09:37→20:48)
[2022-10-31] MEDS: VITAMINS A AND D OINT 42 GM TUBE TP SCH ×2 (09:37→20:48)
[2022-10-31] MEDS: HYDROGEN PEROXIDE 3% 118 ML BOTTLE TP SCH ×2 (09:54→21:55)
[2022-10-31] MEDS: SERTRALINE HCL 50 MG TABLET GT SCH (12:13)
[2022-10-31] MEDS: ASCORBIC ACID 500 MG TABLET GT SCH (20:48)
[2022-10-31] MEDS: SIMVASTATIN 10 MG TABLET GT SCH (20:48)
[2022-10-31] MEDS: MULTIVIT, IRON, MIN NO. 8, FA TABLET GT SCH (20:48)
[2022-10-31] MEDS: ESTROGENS,CONJU VAGINAL CREAM 42.5 GM TUBE VG SCH (20:48)
[2022-11-01] VITALS (13 sets, daily range): TEMP 98.6–100; O2SAT 97–99
[2022-11-01] MEDS: BACLOFEN 10 MG TABLET GT SCH ×4 (00:30→17:50)
[2022-11-01] MEDS: ALBUTEROL SULFATE 2.5 MG/3 ML NEBU NEB SCH ×6 (03:30→23:51)
[2022-11-01] MEDS: IPRATROPIUM BROMIDE 0.5 MG/2.5 ML NEBU NEB SCH ×6 (03:30→23:51)
[2022-11-01] MEDS: OMEPRAZOLE 20 MG CAPSULE.DR GT SCH (05:37)
[2022-11-01] MEDS: MIDODRINE HCL 5 MG TABLET GT SCH ×3 (05:37→22:00)
[2022-11-01] MEDS: PROTEIN SUPPLEMENT (PROSTAT) 30 ML LIQUID GT SCH ×3 (05:37→22:14)
[2022-11-01] MEDS: ARGININE/GLUTAMINE/CALCIUM BMB 1 EACH POWD.PACK GT SCH ×2 (05:37→17:50)
[2022-11-01] MEDS: OMEGA-3 FATTY ACIDS/FISH OIL CAPSULE GT SCH ×2 (05:37→17:50)
[2022-11-01] MEDS: HYDROGEN PEROXIDE 3% 118 ML BOTTLE TP SCH ×2 (07:33→21:58)
[2022-11-01] MEDS: ACETAMINOPHEN 650 MG/20.3 ML LIQUID UDC GT SCH ×2 (08:30→20:30)
[2022-11-01] MEDS: VANCOMYCIN FOR PO/GT/NG USE GT SCH (09:00)
[2022-11-01] MEDS: NITROFURANTOIN 25 MG/5 ML GT SCH (09:00)
[2022-11-01] MEDS: ACIDOPHILUS/BULGARICUS CHEW TAB GT SCH ×2 (09:00→20:47)
[2022-11-01] MEDS: VITAMINS A AND D OINT 42 GM TUBE TP SCH ×2 (09:00→20:55)
[2022-11-01] MEDS: APIXABAN 2.5 MG TABLET GT SCH (09:00)
[2022-11-01] MEDS: REMEDY ESSENTIAL ZINC PASTE 113 GM TP SCH ×2 (09:00→20:54)
[2022-11-01] MEDS: GLUCERNA 1.2 1000ML LIQUID GT PRN (10:31)
[2022-11-01] MEDS: SERTRALINE HCL 50 MG TABLET GT SCH (12:00)
[2022-11-01] MEDS: FOSFOMYCIN TROMETHAMINE 3 GM PACKET GT SCH (20:49)
[2022-11-01] MEDS: MULTIVIT, IRON, MIN NO. 8, FA TABLET GT SCH (20:53)
[2022-11-01] MEDS: ASCORBIC ACID 500 MG TABLET GT SCH (20:54)
[2022-11-01] MEDS: SIMVASTATIN 10 MG TABLET GT SCH (20:54)
[2022-11-01] MEDS: ESTROGENS,CONJU VAGINAL CREAM 42.5 GM TUBE VG SCH (20:55)
[2022-11-01] MEDS: HYDROCODONE/APAP 10-325 MG TABLET GT PRN (22:00)
[2022-11-01] MEDS: TEMAZEPAM 7.5 MG CAPSULE GT PRN (22:00)
[2022-11-02] VITALS (15 sets, daily range): TEMP 97.7–98.4; O2SAT 98–99
[2022-11-02] MEDS: BACLOFEN 10 MG TABLET GT SCH ×4 (00:49→17:42)
[2022-11-02] MEDS: IPRATROPIUM BROMIDE 0.5 MG/2.5 ML NEBU NEB SCH ×6 (03:30→23:24)
[2022-11-02] MEDS: ALBUTEROL SULFATE 2.5 MG/3 ML NEBU NEB SCH ×6 (03:30→23:25)
[2022-11-02] MEDS: HYDROCODONE/APAP 10-325 MG TABLET GT PRN ×2 (04:00→22:30)
[2022-11-02] MEDS: ARGININE/GLUTAMINE/CALCIUM BMB 1 EACH POWD.PACK GT SCH ×2 (05:14→17:42)
[2022-11-02] MEDS: OMEPRAZOLE 20 MG CAPSULE.DR GT SCH (05:14)
[2022-11-02] MEDS: OMEGA-3 FATTY ACIDS/FISH OIL CAPSULE GT SCH ×2 (05:14→17:42)
[2022-11-02] MEDS: MIDODRINE HCL 5 MG TABLET GT SCH ×3 (05:15→22:00)
[2022-11-02] MEDS: PROTEIN SUPPLEMENT (PROSTAT) 30 ML LIQUID GT SCH ×3 (05:15→22:52)
[2022-11-02 06:29] LABS: BASOPHILS # (AUTO) 0.1 K/UL (0.0-0.2); BASOPHILS % (AUTO) 1.1 % (0.0-2.0); EOSINOPHILS # (AUTO) 0.7 K/uL (0.0-0.7); EOSINOPHILS % (AUTO) 6.6 % (0.0-7.0); HEMATOCRIT 35.6 % (31.2-41.9); HEMOGLOBIN 10.9 g/dL (10.9-14.3); LYMPHOCYTES # (AUTO) 2.4 K/uL (0.8-4.8); LYMPHOCYTES % (AUTO) 21.7 % (20.5-51.5); MEAN CORPUSCULAR HEMOGLOBIN 25.4 uug (24.7-32.8); MEAN CORPUSCULAR HGB CONC 31 g/dL (32.3-35.6); MEAN CORPUSCULAR VOLUME 82.7 fL (75.5-95.3); MONOCYTES # (AUTO) 1.1 K/uL (0.1-1.30); MONOCYTES % (AUTO) 9.8 % (0.0-11.0); NEUTROPHILS # (AUTO) 6.8 K/uL (1.8-8.9); NEUTROPHILS % (AUTO) 60.8 % (38.5-71.5); PLATELET COUNT (AUTO) 198 K/uL (179-408); RED BLOOD CELL COUNT(AUTO) 4.31 MIL/uL (3.63-4.92); RED CELL DISTRIBUTION WIDTH 20.4 % (12.3-17.7); WHITE BLOOD COUNT (AUTO) 11.3 K/uL (3.8-11.8)
[2022-11-02 06:44] LABS: DIFFERENTIAL COMMENT 1
[2022-11-02] MEDS: ACETAMINOPHEN 650 MG/20.3 ML LIQUID UDC GT SCH ×2 (08:30→20:21)
[2022-11-02] MEDS: HYDROGEN PEROXIDE 3% 118 ML BOTTLE TP SCH ×2 (08:59→20:31)
[2022-11-02] MEDS: ACIDOPHILUS/BULGARICUS CHEW TAB GT SCH ×2 (09:00→20:21)
[2022-11-02] MEDS: NITROFURANTOIN 25 MG/5 ML GT SCH (09:00)
[2022-11-02] MEDS: REMEDY ESSENTIAL ZINC PASTE 113 GM TP SCH ×2 (09:00→20:24)
[2022-11-02] MEDS: VITAMINS A AND D OINT 42 GM TUBE TP SCH ×2 (09:00→20:24)
[2022-11-02] MEDS: SODIUM HYPOCHLORITE 0.125% (QUARTER STRENGTH) 473 ML BOTTLE TP SCH ×2 (09:00)
[2022-11-02] MEDS: SERTRALINE HCL 50 MG TABLET GT SCH (12:00)
[2022-11-02] MEDS: MULTIVIT, IRON, MIN NO. 8, FA TABLET GT SCH (20:22)
[2022-11-02] MEDS: SIMVASTATIN 10 MG TABLET GT SCH (20:24)
[2022-11-02] MEDS: ESTROGENS,CONJU VAGINAL CREAM 42.5 GM TUBE VG SCH (20:24)
[2022-11-02] MEDS: ASCORBIC ACID 500 MG TABLET GT SCH (20:24)
[2022-11-02] MEDS: GLUCERNA 1.2 1000ML LIQUID GT PRN (20:27)
[2022-11-02] MEDS: TEMAZEPAM 7.5 MG CAPSULE GT PRN (22:30)
[2022-11-03] VITALS (14 sets, daily range): TEMP 98.3–98.6; O2SAT 98–99
[2022-11-03] MEDS: ALBUTEROL SULFATE 2.5 MG/3 ML NEBU NEB SCH ×5 (03:58→19:23)
[2022-11-03] MEDS: IPRATROPIUM BROMIDE 0.5 MG/2.5 ML NEBU NEB SCH ×5 (03:58→19:23)
[2022-11-03] MEDS: OMEPRAZOLE 20 MG CAPSULE.DR GT SCH (05:37)
[2022-11-03] MEDS: BACLOFEN 10 MG TABLET GT SCH ×4 (05:37→17:37)
[2022-11-03] MEDS: ARGININE/GLUTAMINE/CALCIUM BMB 1 EACH POWD.PACK GT SCH ×2 (05:37→17:37)
[2022-11-03] MEDS: OMEGA-3 FATTY ACIDS/FISH OIL CAPSULE GT SCH ×2 (05:37→17:37)
[2022-11-03] MEDS: PROTEIN SUPPLEMENT (PROSTAT) 30 ML LIQUID GT SCH ×3 (05:40→21:34)
[2022-11-03] MEDS: MIDODRINE HCL 5 MG TABLET GT SCH ×3 (05:40→21:34)
[2022-11-03] MEDS: ACIDOPHILUS/BULGARICUS CHEW TAB GT SCH ×2 (08:53→21:31)
[2022-11-03] MEDS: ACETAMINOPHEN 650 MG/20.3 ML LIQUID UDC GT SCH ×2 (08:53→20:30)
[2022-11-03] MEDS: VITAMINS A AND D OINT 42 GM TUBE TP SCH ×2 (08:54→21:32)
[2022-11-03] MEDS: REMEDY ESSENTIAL ZINC PASTE 113 GM TP SCH ×2 (08:54→21:35)
[2022-11-03] MEDS: NITROFURANTOIN 25 MG/5 ML GT SCH (08:54)
[2022-11-03] MEDS: HYDROGEN PEROXIDE 3% 118 ML BOTTLE TP SCH ×2 (09:00→19:23)
[2022-11-03] MEDS: SERTRALINE HCL 50 MG TABLET GT SCH (12:00)
[2022-11-03] MEDS: HYDROCODONE/APAP 10-325 MG TABLET GT PRN ×2 (17:39→23:40)
[2022-11-03] MEDS: TEMAZEPAM 7.5 MG CAPSULE GT PRN (21:00)
[2022-11-03] MEDS: ASCORBIC ACID 500 MG TABLET GT SCH (21:31)
[2022-11-03] MEDS: MULTIVIT, IRON, MIN NO. 8, FA TABLET GT SCH (21:31)
[2022-11-03] MEDS: SIMVASTATIN 10 MG TABLET GT SCH (21:32)
[2022-11-03] MEDS: ESTROGENS,CONJU VAGINAL CREAM 42.5 GM TUBE VG SCH (21:32)
[2022-11-03] MEDS: GLUCERNA 1.2 1000ML LIQUID GT PRN (21:43)
[2022-11-04] VITALS (13 sets, daily range): TEMP 97.6; O2SAT 98–99
[2022-11-04] MEDS: ALBUTEROL SULFATE 2.5 MG/3 ML NEBU NEB SCH ×7 (00:24→23:18)
[2022-11-04] MEDS: IPRATROPIUM BROMIDE 0.5 MG/2.5 ML NEBU NEB SCH ×7 (00:24→23:18)
[2022-11-04] MEDS: BACLOFEN 10 MG TABLET GT SCH ×4 (05:34→17:01)
[2022-11-04] MEDS: OMEGA-3 FATTY ACIDS/FISH OIL CAPSULE GT SCH ×2 (05:34→17:01)
[2022-11-04] MEDS: MIDODRINE HCL 5 MG TABLET GT SCH ×3 (05:34→21:14)
[2022-11-04] MEDS: OMEPRAZOLE 20 MG CAPSULE.DR GT SCH (05:34)
[2022-11-04] MEDS: ARGININE/GLUTAMINE/CALCIUM BMB 1 EACH POWD.PACK GT SCH ×2 (05:34→17:01)
[2022-11-04] MEDS: PROTEIN SUPPLEMENT (PROSTAT) 30 ML LIQUID GT SCH ×3 (05:35→21:15)
[2022-11-04] MEDS: HYDROGEN PEROXIDE 3% 118 ML BOTTLE TP SCH ×2 (07:50→19:09)
[2022-11-04] MEDS: ACETAMINOPHEN 650 MG/20.3 ML LIQUID UDC GT SCH ×2 (08:29→20:59)
[2022-11-04] MEDS: ACIDOPHILUS/BULGARICUS CHEW TAB GT SCH ×2 (08:29→21:01)
[2022-11-04] MEDS: NITROFURANTOIN 25 MG/5 ML GT SCH (08:30)
[2022-11-04] MEDS: VITAMINS A AND D OINT 42 GM TUBE TP SCH ×2 (08:33→21:01)
[2022-11-04] MEDS: SODIUM HYPOCHLORITE 0.125% (QUARTER STRENGTH) 473 ML BOTTLE TP SCH ×2 (08:33)
[2022-11-04] MEDS: REMEDY ESSENTIAL ZINC PASTE 113 GM TP SCH ×2 (08:33→21:01)
[2022-11-04] MEDS: SERTRALINE HCL 50 MG TABLET GT SCH (12:50)
[2022-11-04] MEDS: HYDROCODONE/APAP 10-325 MG TABLET GT PRN (17:30)
[2022-11-04] MEDS: APIXABAN 2.5 MG TABLET GT SCH (20:59)
[2022-11-04] MEDS: ESTROGENS,CONJU VAGINAL CREAM 42.5 GM TUBE VG SCH (21:01)
[2022-11-04] MEDS: SIMVASTATIN 10 MG TABLET GT SCH (21:01)
[2022-11-04] MEDS: ASCORBIC ACID 500 MG TABLET GT SCH (21:01)
[2022-11-04] MEDS: MULTIVIT, IRON, MIN NO. 8, FA TABLET GT SCH (21:01)
[2022-11-05] VITALS (14 sets, daily range): TEMP 98–98.3; O2SAT 98–99
[2022-11-05] MEDS: BACLOFEN 10 MG TABLET GT SCH ×4 (00:10→17:55)
[2022-11-05] MEDS: ALBUTEROL SULFATE 2.5 MG/3 ML NEBU NEB SCH ×6 (03:30→23:06)
[2022-11-05] MEDS: IPRATROPIUM BROMIDE 0.5 MG/2.5 ML NEBU NEB SCH ×6 (03:30→23:06)
[2022-11-05] MEDS: OMEGA-3 FATTY ACIDS/FISH OIL CAPSULE GT SCH ×2 (05:26→17:55)
[2022-11-05] MEDS: MIDODRINE HCL 5 MG TABLET GT SCH ×3 (05:26→22:00)
[2022-11-05] MEDS: ARGININE/GLUTAMINE/CALCIUM BMB 1 EACH POWD.PACK GT SCH ×2 (05:26→17:55)
[2022-11-05] MEDS: OMEPRAZOLE 20 MG CAPSULE.DR GT SCH (05:26)
[2022-11-05] MEDS: PROTEIN SUPPLEMENT (PROSTAT) 30 ML LIQUID GT SCH ×3 (05:27→22:00)
[2022-11-05] MEDS: HYDROGEN PEROXIDE 3% 118 ML BOTTLE TP SCH ×2 (07:23→19:10)
[2022-11-05] MEDS: ACETAMINOPHEN 650 MG/20.3 ML LIQUID UDC GT SCH ×2 (08:30→20:30)
[2022-11-05] MEDS: APIXABAN 2.5 MG TABLET GT SCH ×2 (09:00→21:00)
[2022-11-05] MEDS: NITROFURANTOIN 25 MG/5 ML GT SCH (09:00)
[2022-11-05] MEDS: ACIDOPHILUS/BULGARICUS CHEW TAB GT SCH ×2 (09:00→21:00)
[2022-11-05] MEDS: REMEDY ESSENTIAL ZINC PASTE 113 GM TP SCH ×2 (09:00→21:00)
[2022-11-05] MEDS: VITAMINS A AND D OINT 42 GM TUBE TP SCH ×2 (09:00→21:00)
[2022-11-05] MEDS: SERTRALINE HCL 50 MG TABLET GT SCH (12:00)
[2022-11-05] MEDS: SIMVASTATIN 10 MG TABLET GT SCH (21:00)
[2022-11-05] MEDS: ASCORBIC ACID 500 MG TABLET GT SCH (21:00)
[2022-11-05] MEDS: MULTIVIT, IRON, MIN NO. 8, FA TABLET GT SCH (21:00)
[2022-11-05] MEDS: ESTROGENS,CONJU VAGINAL CREAM 42.5 GM TUBE VG SCH (21:00)
[2022-11-06] VITALS (14 sets, daily range): TEMP 97.5–99.6; O2SAT 98–99
[2022-11-06] MEDS: IPRATROPIUM BROMIDE 0.5 MG/2.5 ML NEBU NEB SCH ×6 (03:59→23:04)
[2022-11-06] MEDS: ALBUTEROL SULFATE 2.5 MG/3 ML NEBU NEB SCH ×6 (03:59→23:04)
[2022-11-06] MEDS: OMEGA-3 FATTY ACIDS/FISH OIL CAPSULE GT SCH ×2 (05:30→17:12)
[2022-11-06] MEDS: ARGININE/GLUTAMINE/CALCIUM BMB 1 EACH POWD.PACK GT SCH ×2 (05:30→17:12)
[2022-11-06] MEDS: PROTEIN SUPPLEMENT (PROSTAT) 30 ML LIQUID GT SCH ×3 (05:30→22:00)
[2022-11-06] MEDS: OMEPRAZOLE 20 MG CAPSULE.DR GT SCH (05:30)
[2022-11-06] MEDS: BACLOFEN 10 MG TABLET GT SCH ×4 (05:30→17:12)
[2022-11-06] MEDS: MIDODRINE HCL 5 MG TABLET GT SCH ×3 (05:33→22:00)
[2022-11-06] MEDS: HYDROGEN PEROXIDE 3% 118 ML BOTTLE TP SCH ×2 (08:04→20:31)
[2022-11-06] MEDS: ACETAMINOPHEN 650 MG/20.3 ML LIQUID UDC GT SCH ×2 (09:16→20:31)
[2022-11-06] MEDS: ACIDOPHILUS/BULGARICUS CHEW TAB GT SCH ×2 (09:20→20:31)
[2022-11-06] MEDS: APIXABAN 2.5 MG TABLET GT SCH ×2 (09:20→21:00)
[2022-11-06] MEDS: REMEDY ESSENTIAL ZINC PASTE 113 GM TP SCH ×2 (09:24→20:32)
[2022-11-06] MEDS: VITAMINS A AND D OINT 42 GM TUBE TP SCH ×2 (09:24→20:32)
[2022-11-06] MEDS: NITROFURANTOIN 25 MG/5 ML GT SCH (09:24)
[2022-11-06] MEDS: SERTRALINE HCL 50 MG TABLET GT SCH (12:20)
[2022-11-06] MEDS: GLUCERNA 1.2 1000ML LIQUID GT PRN (12:27)
[2022-11-06] MEDS: ASCORBIC ACID 500 MG TABLET GT SCH (20:31)
[2022-11-06] MEDS: SIMVASTATIN 10 MG TABLET GT SCH (20:31)
[2022-11-06] MEDS: MULTIVIT, IRON, MIN NO. 8, FA TABLET GT SCH (20:31)
[2022-11-06] MEDS: ESTROGENS,CONJU VAGINAL CREAM 42.5 GM TUBE VG SCH (22:00)
[2022-11-07] VITALS (14 sets, daily range): TEMP 98.4–98.5; O2SAT 96–99
[2022-11-07] MEDS: ALBUTEROL SULFATE 2.5 MG/3 ML NEBU NEB SCH ×6 (03:15→23:32)
[2022-11-07] MEDS: IPRATROPIUM BROMIDE 0.5 MG/2.5 ML NEBU NEB SCH ×6 (03:15→23:32)
[2022-11-07] MEDS: BACLOFEN 10 MG TABLET GT SCH ×4 (05:20→23:56)
[2022-11-07] MEDS: PROTEIN SUPPLEMENT (PROSTAT) 30 ML LIQUID GT SCH ×3 (05:20→21:57)
[2022-11-07] MEDS: ARGININE/GLUTAMINE/CALCIUM BMB 1 EACH POWD.PACK GT SCH ×2 (05:20→17:21)
[2022-11-07] MEDS: OMEGA-3 FATTY ACIDS/FISH OIL CAPSULE GT SCH ×2 (05:20→17:21)
[2022-11-07] MEDS: OMEPRAZOLE 20 MG CAPSULE.DR GT SCH (05:20)
[2022-11-07] MEDS: MIDODRINE HCL 5 MG TABLET GT SCH ×3 (05:22→21:57)
[2022-11-07 06:50] LABS: BASOPHILS # (AUTO) 0.1 K/UL (0.0-0.2); BASOPHILS % (AUTO) 0.7 % (0.0-2.0); EOSINOPHILS # (AUTO) 0.6 K/uL (0.0-0.7); HEMATOCRIT 37.1 % (31.2-41.9); HEMOGLOBIN 11.4 g/dL (10.9-14.3); LYMPHOCYTES % (AUTO) 20.3 % (20.5-51.5); MEAN CORPUSCULAR HEMOGLOBIN 25.5 uug (24.7-32.8); MEAN CORPUSCULAR HGB CONC 31 g/dL (32.3-35.6); MEAN CORPUSCULAR VOLUME 82.5 fL (75.5-95.3); MONOCYTES # (AUTO) 0.9 K/uL (0.1-1.30); MONOCYTES % (AUTO) 9.1 % (0.0-11.0); NEUTROPHILS # (AUTO) 6.2 K/uL (1.8-8.9); NEUTROPHILS % (AUTO) 63.9 % (38.5-71.5); PLATELET COUNT (AUTO) 192 K/uL (179-408); RED BLOOD CELL COUNT(AUTO) 4.49 MIL/uL (3.63-4.92); RED CELL DISTRIBUTION WIDTH 20.4 % (12.3-17.7); WHITE BLOOD COUNT (AUTO) 9.7 K/uL (3.8-11.8)
[2022-11-07 07:03] LABS: ALBUMIN 2.9 g/dL (3.4-5.0); BILIRUBIN,TOTAL 0.4 mg/dL (0.2-1.0); CALCIUM 9.3 mg/dL (8.5-10.1); DIFFERENTIAL COMMENT 1; POTASSIUM 3.5 mmol/L (3.5-5.1)
[2022-11-07] MEDS: ACETAMINOPHEN 650 MG/20.3 ML LIQUID UDC GT SCH ×2 (08:30→20:22)
[2022-11-07] MEDS: ACIDOPHILUS/BULGARICUS CHEW TAB GT SCH ×2 (09:48→20:22)
[2022-11-07] MEDS: HYDROGEN PEROXIDE 3% 118 ML BOTTLE TP SCH ×2 (09:48→19:21)
[2022-11-07] MEDS: SODIUM HYPOCHLORITE 0.125% (QUARTER STRENGTH) 473 ML BOTTLE TP SCH ×2 (09:48)
[2022-11-07] MEDS: VITAMINS A AND D OINT 42 GM TUBE TP SCH ×2 (09:49→20:25)
[2022-11-07] MEDS: REMEDY ESSENTIAL ZINC PASTE 113 GM TP SCH ×2 (09:49→20:25)
[2022-11-07] MEDS: NITROFURANTOIN 25 MG/5 ML GT SCH (09:49)
[2022-11-07] MEDS: APIXABAN 2.5 MG TABLET GT SCH ×2 (09:53→21:41)
[2022-11-07] MEDS: SERTRALINE HCL 50 MG TABLET GT SCH (12:24)
[2022-11-07] MEDS: GLUCERNA 1.2 1000ML LIQUID GT PRN (14:49)
[2022-11-07] MEDS: HYDROCODONE/APAP 10-325 MG TABLET GT PRN ×2 (16:40→21:56)
[2022-11-07] MEDS: MULTIVIT, IRON, MIN NO. 8, FA TABLET GT SCH (20:24)
[2022-11-07] MEDS: ASCORBIC ACID 500 MG TABLET GT SCH (20:24)
[2022-11-07] MEDS: ESTROGENS,CONJU VAGINAL CREAM 42.5 GM TUBE VG SCH (20:25)
[2022-11-07] MEDS: SIMVASTATIN 10 MG TABLET GT SCH (20:25)
[2022-11-08] VITALS (13 sets, daily range): TEMP 98.8; O2SAT 97–99
[2022-11-08] MEDS: IPRATROPIUM BROMIDE 0.5 MG/2.5 ML NEBU NEB SCH ×6 (03:30→23:30)
[2022-11-08] MEDS: ALBUTEROL SULFATE 2.5 MG/3 ML NEBU NEB SCH ×6 (03:30→23:30)
[2022-11-08] MEDS: OMEGA-3 FATTY ACIDS/FISH OIL CAPSULE GT SCH ×2 (05:44→17:36)
[2022-11-08] MEDS: MIDODRINE HCL 5 MG TABLET GT SCH ×3 (05:44→22:00)
[2022-11-08] MEDS: BACLOFEN 10 MG TABLET GT SCH ×3 (05:44→17:35)
[2022-11-08] MEDS: OMEPRAZOLE 20 MG CAPSULE.DR GT SCH (05:44)
[2022-11-08] MEDS: ARGININE/GLUTAMINE/CALCIUM BMB 1 EACH POWD.PACK GT SCH ×2 (05:44→17:36)
[2022-11-08] MEDS: PROTEIN SUPPLEMENT (PROSTAT) 30 ML LIQUID GT SCH ×3 (05:49→22:00)
[2022-11-08] MEDS: HYDROGEN PEROXIDE 3% 118 ML BOTTLE TP SCH ×2 (07:50→19:14)
[2022-11-08] MEDS: ACETAMINOPHEN 650 MG/20.3 ML LIQUID UDC GT SCH ×2 (10:20→20:51)
[2022-11-08] MEDS: ACIDOPHILUS/BULGARICUS CHEW TAB GT SCH ×2 (10:22→20:51)
[2022-11-08] MEDS: REMEDY ESSENTIAL ZINC PASTE 113 GM TP SCH ×2 (10:24→20:51)
[2022-11-08] MEDS: VITAMINS A AND D OINT 42 GM TUBE TP SCH ×2 (10:24→20:51)
[2022-11-08] MEDS: APIXABAN 2.5 MG TABLET GT SCH ×2 (10:30→20:51)
[2022-11-08] MEDS: NITROFURANTOIN 25 MG/5 ML GT SCH (10:30)
[2022-11-08] MEDS: SERTRALINE HCL 50 MG TABLET GT SCH (14:01)
[2022-11-08] MEDS: GLUCERNA 1.2 1000ML LIQUID GT PRN (16:35)
[2022-11-08] MEDS: HYDROCODONE/APAP 10-325 MG TABLET GT PRN (17:34)
[2022-11-08] MEDS: ASCORBIC ACID 500 MG TABLET GT SCH (20:51)
[2022-11-08] MEDS: MULTIVIT, IRON, MIN NO. 8, FA TABLET GT SCH (20:51)
[2022-11-08] MEDS: FOSFOMYCIN TROMETHAMINE 3 GM PACKET GT SCH (20:51)
[2022-11-08] MEDS: SIMVASTATIN 10 MG TABLET GT SCH (20:51)
[2022-11-08] MEDS: ESTROGENS,CONJU VAGINAL CREAM 42.5 GM TUBE VG SCH (20:51)
[2022-11-09] VITALS (14 sets, daily range): TEMP 98.7–100.2; O2SAT 97–99
[2022-11-09] MEDS: IPRATROPIUM BROMIDE 0.5 MG/2.5 ML NEBU NEB SCH ×6 (03:31→23:30)
[2022-11-09] MEDS: ALBUTEROL SULFATE 2.5 MG/3 ML NEBU NEB SCH ×6 (03:31→23:30)
[2022-11-09] MEDS: BACLOFEN 10 MG TABLET GT SCH ×4 (05:04→17:18)
[2022-11-09] MEDS: OMEGA-3 FATTY ACIDS/FISH OIL CAPSULE GT SCH ×2 (05:04→17:17)
[2022-11-09] MEDS: ARGININE/GLUTAMINE/CALCIUM BMB 1 EACH POWD.PACK GT SCH ×2 (05:04→17:17)
[2022-11-09] MEDS: MIDODRINE HCL 5 MG TABLET GT SCH ×3 (05:04→21:02)
[2022-11-09] MEDS: OMEPRAZOLE 20 MG CAPSULE.DR GT SCH (05:04)
[2022-11-09] MEDS: PROTEIN SUPPLEMENT (PROSTAT) 30 ML LIQUID GT SCH ×3 (05:05→21:03)
[2022-11-09] MEDS: HYDROGEN PEROXIDE 3% 118 ML BOTTLE TP SCH ×2 (08:21→21:00)
[2022-11-09] MEDS: ACETAMINOPHEN 650 MG/20.3 ML LIQUID UDC GT SCH ×2 (08:30→20:59)
[2022-11-09] MEDS: SODIUM HYPOCHLORITE 0.125% (QUARTER STRENGTH) 473 ML BOTTLE TP SCH ×2 (09:00)
[2022-11-09] MEDS: REMEDY ESSENTIAL ZINC PASTE 113 GM TP SCH ×2 (09:00→21:02)
[2022-11-09] MEDS: VITAMINS A AND D OINT 42 GM TUBE TP SCH ×2 (09:00→21:02)
[2022-11-09] MEDS: NITROFURANTOIN 25 MG/5 ML GT SCH (09:00)
[2022-11-09] MEDS: APIXABAN 2.5 MG TABLET GT SCH ×2 (09:51→21:00)
[2022-11-09] MEDS: ACIDOPHILUS/BULGARICUS CHEW TAB GT SCH ×2 (09:52→21:00)
[2022-11-09] MEDS: SERTRALINE HCL 50 MG TABLET GT SCH (12:43)
[2022-11-09] MEDS: SIMVASTATIN 10 MG TABLET GT SCH (21:01)
[2022-11-09] MEDS: ASCORBIC ACID 500 MG TABLET GT SCH (21:01)
[2022-11-09] MEDS: MULTIVIT, IRON, MIN NO. 8, FA TABLET GT SCH (21:01)
[2022-11-09] MEDS: ESTROGENS,CONJU VAGINAL CREAM 42.5 GM TUBE VG SCH (21:02)
[2022-11-09] MEDS: GLUCERNA 1.2 1000ML LIQUID GT PRN (21:30)
[2022-11-10] VITALS (15 sets, daily range): TEMP 97–98.8; O2SAT 97–99
[2022-11-10] MEDS: IPRATROPIUM BROMIDE 0.5 MG/2.5 ML NEBU NEB SCH ×6 (04:00→23:30)
[2022-11-10] MEDS: ALBUTEROL SULFATE 2.5 MG/3 ML NEBU NEB SCH ×6 (04:00→23:30)
[2022-11-10] MEDS: BACLOFEN 10 MG TABLET GT SCH ×4 (05:10→17:28)
[2022-11-10] MEDS: MIDODRINE HCL 5 MG TABLET GT SCH ×3 (05:10→22:00)
[2022-11-10] MEDS: OMEPRAZOLE 20 MG CAPSULE.DR GT SCH (05:10)
[2022-11-10] MEDS: OMEGA-3 FATTY ACIDS/FISH OIL CAPSULE GT SCH ×2 (05:10→17:28)
[2022-11-10] MEDS: PROTEIN SUPPLEMENT (PROSTAT) 30 ML LIQUID GT SCH ×3 (05:10→22:33)
[2022-11-10] MEDS: ARGININE/GLUTAMINE/CALCIUM BMB 1 EACH POWD.PACK GT SCH ×2 (05:10→17:28)
[2022-11-10] MEDS: HYDROGEN PEROXIDE 3% 118 ML BOTTLE TP SCH ×2 (07:29→21:00)
[2022-11-10] MEDS: ACETAMINOPHEN 650 MG/20.3 ML LIQUID UDC GT SCH ×2 (08:26→20:26)
[2022-11-10] MEDS: NITROFURANTOIN 25 MG/5 ML GT SCH (08:27)
[2022-11-10] MEDS: ACIDOPHILUS/BULGARICUS CHEW TAB GT SCH ×2 (08:27→20:27)
[2022-11-10] MEDS: APIXABAN 2.5 MG TABLET GT SCH ×2 (08:27→20:51)
[2022-11-10] MEDS: VITAMINS A AND D OINT 42 GM TUBE TP SCH ×2 (08:28→20:28)
[2022-11-10] MEDS: REMEDY ESSENTIAL ZINC PASTE 113 GM TP SCH ×2 (08:28→20:28)
[2022-11-10] MEDS: SERTRALINE HCL 50 MG TABLET GT SCH (11:34)
[2022-11-10] MEDS: ASCORBIC ACID 500 MG TABLET GT SCH (20:27)
[2022-11-10] MEDS: MULTIVIT, IRON, MIN NO. 8, FA TABLET GT SCH (20:27)
[2022-11-10] MEDS: SIMVASTATIN 10 MG TABLET GT SCH (20:28)
[2022-11-10] MEDS: ESTROGENS,CONJU VAGINAL CREAM 42.5 GM TUBE VG SCH (20:28)
[2022-11-11] VITALS (12 sets, daily range): TEMP 98.3–99; O2SAT 98–99
[2022-11-11] MEDS: IPRATROPIUM BROMIDE 0.5 MG/2.5 ML NEBU NEB SCH ×5 (03:21→20:17)
[2022-11-11] MEDS: ALBUTEROL SULFATE 2.5 MG/3 ML NEBU NEB SCH ×5 (03:21→20:17)
[2022-11-11] MEDS: GLUCERNA 1.2 1000ML LIQUID GT PRN (04:31)
[2022-11-11] MEDS: OMEGA-3 FATTY ACIDS/FISH OIL CAPSULE GT SCH ×2 (05:45→17:31)
[2022-11-11] MEDS: ARGININE/GLUTAMINE/CALCIUM BMB 1 EACH POWD.PACK GT SCH ×2 (05:45→17:31)
[2022-11-11] MEDS: OMEPRAZOLE 20 MG CAPSULE.DR GT SCH (05:45)
[2022-11-11] MEDS: BACLOFEN 10 MG TABLET GT SCH ×5 (05:45→23:28)
[2022-11-11] MEDS: MIDODRINE HCL 5 MG TABLET GT SCH ×3 (05:45→21:38)
[2022-11-11] MEDS: PROTEIN SUPPLEMENT (PROSTAT) 30 ML LIQUID GT SCH ×3 (05:46→21:39)
[2022-11-11] MEDS: HYDROGEN PEROXIDE 3% 118 ML BOTTLE TP SCH ×3 (08:06→21:37)
[2022-11-11] MEDS: ACETAMINOPHEN 650 MG/20.3 ML LIQUID UDC GT SCH ×2 (09:17→20:30)
[2022-11-11] MEDS: VITAMINS A AND D OINT 42 GM TUBE TP SCH ×2 (09:19→21:37)
[2022-11-11] MEDS: ACIDOPHILUS/BULGARICUS CHEW TAB GT SCH ×2 (09:19→21:35)
[2022-11-11] MEDS: APIXABAN 2.5 MG TABLET GT SCH ×2 (09:19→21:59)
[2022-11-11] MEDS: SODIUM HYPOCHLORITE 0.125% (QUARTER STRENGTH) 473 ML BOTTLE TP SCH ×2 (09:19)
[2022-11-11] MEDS: REMEDY ESSENTIAL ZINC PASTE 113 GM TP SCH ×2 (09:19→21:37)
[2022-11-11] MEDS: NITROFURANTOIN 25 MG/5 ML GT SCH (09:19)
[2022-11-11] MEDS: SERTRALINE HCL 50 MG TABLET GT SCH (12:40)
[2022-11-11] MEDS: HYDROCODONE/APAP 10-325 MG TABLET GT PRN (17:31)
[2022-11-11] MEDS: MULTIVIT, IRON, MIN NO. 8, FA TABLET GT SCH (21:36)
[2022-11-11] MEDS: ASCORBIC ACID 500 MG TABLET GT SCH (21:36)
[2022-11-11] MEDS: ESTROGENS,CONJU VAGINAL CREAM 42.5 GM TUBE VG SCH (21:37)
[2022-11-11] MEDS: SIMVASTATIN 10 MG TABLET GT SCH (21:37)
[2022-11-12] VITALS (15 sets, daily range): TEMP 98.4; O2SAT 98–99
[2022-11-12] MEDS: IPRATROPIUM BROMIDE 0.5 MG/2.5 ML NEBU NEB SCH ×7 (00:16→23:00)
[2022-11-12] MEDS: ALBUTEROL SULFATE 2.5 MG/3 ML NEBU NEB SCH ×7 (00:16→23:00)
[2022-11-12] MEDS: BACLOFEN 10 MG TABLET GT SCH ×3 (05:04→18:06)
[2022-11-12] MEDS: OMEPRAZOLE 20 MG CAPSULE.DR GT SCH (05:04)
[2022-11-12] MEDS: ARGININE/GLUTAMINE/CALCIUM BMB 1 EACH POWD.PACK GT SCH ×2 (05:05→18:06)
[2022-11-12] MEDS: OMEGA-3 FATTY ACIDS/FISH OIL CAPSULE GT SCH ×2 (05:05→18:06)
[2022-11-12] MEDS: PROTEIN SUPPLEMENT (PROSTAT) 30 ML LIQUID GT SCH ×3 (05:05→21:27)
[2022-11-12] MEDS: MIDODRINE HCL 5 MG TABLET GT SCH ×3 (05:34→21:19)
[2022-11-12] MEDS: ACETAMINOPHEN 650 MG/20.3 ML LIQUID UDC GT SCH ×2 (08:30→21:00)
[2022-11-12] MEDS: APIXABAN 2.5 MG TABLET GT SCH ×2 (09:40→21:25)
[2022-11-12] MEDS: NITROFURANTOIN 25 MG/5 ML GT SCH (09:41)
[2022-11-12] MEDS: ACIDOPHILUS/BULGARICUS CHEW TAB GT SCH ×2 (09:41→21:02)
[2022-11-12] MEDS: REMEDY ESSENTIAL ZINC PASTE 113 GM TP SCH ×2 (09:42→21:04)
[2022-11-12] MEDS: VITAMINS A AND D OINT 42 GM TUBE TP SCH ×2 (09:43→21:04)
[2022-11-12] MEDS: HYDROGEN PEROXIDE 3% 118 ML BOTTLE TP SCH ×2 (10:13→19:19)
[2022-11-12] MEDS: SERTRALINE HCL 50 MG TABLET GT SCH (12:00)
[2022-11-12] MEDS: MULTIVIT, IRON, MIN NO. 8, FA TABLET GT SCH (21:03)
[2022-11-12] MEDS: ASCORBIC ACID 500 MG TABLET GT SCH (21:04)
[2022-11-12] MEDS: ESTROGENS,CONJU VAGINAL CREAM 42.5 GM TUBE VG SCH (21:16)
[2022-11-12] MEDS: SIMVASTATIN 10 MG TABLET GT SCH (21:16)
[2022-11-13] VITALS (14 sets, daily range): TEMP 98.3–99.5; O2SAT 98–99
[2022-11-13] MEDS: ALBUTEROL SULFATE 2.5 MG/3 ML NEBU NEB SCH ×5 (03:31→19:19)
[2022-11-13] MEDS: IPRATROPIUM BROMIDE 0.5 MG/2.5 ML NEBU NEB SCH ×6 (03:31→23:15)
[2022-11-13] MEDS: ARGININE/GLUTAMINE/CALCIUM BMB 1 EACH POWD.PACK GT SCH ×2 (05:26→18:53)
[2022-11-13] MEDS: BACLOFEN 10 MG TABLET GT SCH ×4 (05:26→18:53)
[2022-11-13] MEDS: OMEGA-3 FATTY ACIDS/FISH OIL CAPSULE GT SCH ×2 (05:26→18:53)
[2022-11-13] MEDS: PROTEIN SUPPLEMENT (PROSTAT) 30 ML LIQUID GT SCH ×3 (05:27→22:08)
[2022-11-13] MEDS: OMEPRAZOLE 20 MG CAPSULE.DR GT SCH (05:27)
[2022-11-13] MEDS: MIDODRINE HCL 5 MG TABLET GT SCH ×3 (05:27→22:08)
[2022-11-13] MEDS: ACIDOPHILUS/BULGARICUS CHEW TAB GT SCH ×2 (08:14→21:00)
[2022-11-13] MEDS: ACETAMINOPHEN 650 MG/20.3 ML LIQUID UDC GT SCH ×2 (08:14→20:30)
[2022-11-13] MEDS: NITROFURANTOIN 25 MG/5 ML GT SCH (08:15)
[2022-11-13] MEDS: VITAMINS A AND D OINT 42 GM TUBE TP SCH ×2 (08:15→21:00)
[2022-11-13] MEDS: REMEDY ESSENTIAL ZINC PASTE 113 GM TP SCH ×2 (08:15→21:00)
[2022-11-13] MEDS: APIXABAN 2.5 MG TABLET GT SCH ×2 (08:17→21:00)
[2022-11-13] MEDS: HYDROGEN PEROXIDE 3% 118 ML BOTTLE TP SCH ×2 (08:17→19:19)
[2022-11-13] MEDS: HYDROCODONE/APAP 10-325 MG TABLET GT PRN (08:40)
[2022-11-13] MEDS: SERTRALINE HCL 50 MG TABLET GT SCH (12:10)
[2022-11-13] MEDS ORDERED: LOPERAMIDE HCL 1 MG/7.5 ML LIQUID GT PRN (16:00)
[2022-11-13] MEDS: ASCORBIC ACID 500 MG TABLET GT SCH (21:00)
[2022-11-13] MEDS: SIMVASTATIN 10 MG TABLET GT SCH (21:00)
[2022-11-13] MEDS: ESTROGENS,CONJU VAGINAL CREAM 42.5 GM TUBE VG SCH (21:00)
[2022-11-13] MEDS: MULTIVIT, IRON, MIN NO. 8, FA TABLET GT SCH (21:51)
[2022-11-14] VITALS (13 sets, daily range): TEMP 98.2–98.8; O2SAT 98–99
[2022-11-14] MEDS: IPRATROPIUM BROMIDE 0.5 MG/2.5 ML NEBU NEB SCH ×6 (00:03→19:33)
[2022-11-14] MEDS: ALBUTEROL SULFATE 2.5 MG/3 ML NEBU NEB SCH ×7 (00:03→23:15)
[2022-11-14] MEDS: ARGININE/GLUTAMINE/CALCIUM BMB 1 EACH POWD.PACK GT SCH ×2 (06:00→17:34)
[2022-11-14] MEDS: OMEGA-3 FATTY ACIDS/FISH OIL CAPSULE GT SCH ×2 (06:10→17:34)
[2022-11-14] MEDS: PROTEIN SUPPLEMENT (PROSTAT) 30 ML LIQUID GT SCH ×3 (06:11→21:12)
[2022-11-14] MEDS: OMEPRAZOLE 20 MG CAPSULE.DR GT SCH (06:16)
[2022-11-14] MEDS: MIDODRINE HCL 5 MG TABLET GT SCH ×3 (06:16→21:12)
[2022-11-14] MEDS: BACLOFEN 10 MG TABLET GT SCH ×4 (06:17→17:34)
[2022-11-14] MEDS: ACETAMINOPHEN 650 MG/20.3 ML LIQUID UDC GT SCH ×2 (08:09→21:07)
[2022-11-14] MEDS: SODIUM HYPOCHLORITE 0.125% (QUARTER STRENGTH) 473 ML BOTTLE TP SCH (08:09)
[2022-11-14] MEDS: NITROFURANTOIN 25 MG/5 ML GT SCH (08:09)
[2022-11-14] MEDS: ACIDOPHILUS/BULGARICUS CHEW TAB GT SCH ×2 (08:09→21:08)
[2022-11-14] MEDS: REMEDY ESSENTIAL ZINC PASTE 113 GM TP SCH ×2 (08:09→21:11)
[2022-11-14] MEDS: VITAMINS A AND D OINT 42 GM TUBE TP SCH ×2 (08:09→21:11)
[2022-11-14] MEDS: APIXABAN 2.5 MG TABLET GT SCH ×2 (08:16→21:08)
[2022-11-14] MEDS: HYDROGEN PEROXIDE 3% 118 ML BOTTLE TP SCH (08:39)
[2022-11-14] MEDS: HYDROCODONE/APAP 10-325 MG TABLET GT PRN (10:42)
[2022-11-14] MEDS: GLUCERNA 1.2 1000ML LIQUID GT PRN (11:15)
[2022-11-14] MEDS: SERTRALINE HCL 50 MG TABLET GT SCH (12:07)
[2022-11-14] MEDS: MULTIVIT, IRON, MIN NO. 8, FA TABLET GT SCH (21:10)
[2022-11-14] MEDS: ESTROGENS,CONJU VAGINAL CREAM 42.5 GM TUBE VG SCH (21:11)
[2022-11-14] MEDS: ASCORBIC ACID 500 MG TABLET GT SCH (21:11)
[2022-11-14] MEDS: SIMVASTATIN 10 MG TABLET GT SCH (21:11)
[2022-11-14] MEDS: LOPERAMIDE HCL 1 MG/7.5 ML LIQUID GT PRN (21:21)
[2022-11-15] VITALS (15 sets, daily range): TEMP 98–98.5; O2SAT 97–99
[2022-11-15] MEDS: IPRATROPIUM BROMIDE 0.5 MG/2.5 ML NEBU NEB SCH ×6 (03:30→23:11)
[2022-11-15] MEDS: ALBUTEROL SULFATE 2.5 MG/3 ML NEBU NEB SCH ×6 (03:30→23:11)
[2022-11-15] MEDS: HYDROCODONE/APAP 10-325 MG TABLET GT PRN (04:06)
[2022-11-15] MEDS: ARGININE/GLUTAMINE/CALCIUM BMB 1 EACH POWD.PACK GT SCH ×2 (05:41→17:10)
[2022-11-15] MEDS: OMEGA-3 FATTY ACIDS/FISH OIL CAPSULE GT SCH ×2 (05:41→17:09)
[2022-11-15] MEDS: OMEPRAZOLE 20 MG CAPSULE.DR GT SCH (05:41)
[2022-11-15] MEDS: BACLOFEN 10 MG TABLET GT SCH ×4 (05:41→17:10)
[2022-11-15] MEDS: PROTEIN SUPPLEMENT (PROSTAT) 30 ML LIQUID GT SCH ×3 (05:42→21:32)
[2022-11-15] MEDS: MIDODRINE HCL 5 MG TABLET GT SCH ×3 (05:42→21:32)
[2022-11-15] MEDS: HYDROGEN PEROXIDE 3% 118 ML BOTTLE TP SCH ×2 (08:28→19:24)
[2022-11-15] MEDS: ACETAMINOPHEN 650 MG/20.3 ML LIQUID UDC GT SCH ×2 (09:13→21:22)
[2022-11-15] MEDS: APIXABAN 2.5 MG TABLET GT SCH ×2 (09:15→21:23)
[2022-11-15] MEDS: ACIDOPHILUS/BULGARICUS CHEW TAB GT SCH ×2 (09:16→21:24)
[2022-11-15] MEDS: VITAMINS A AND D OINT 42 GM TUBE TP SCH ×2 (09:19→21:32)
[2022-11-15] MEDS: NITROFURANTOIN 25 MG/5 ML GT SCH (09:19)
[2022-11-15] MEDS: REMEDY ESSENTIAL ZINC PASTE 113 GM TP SCH ×2 (09:19→21:32)
[2022-11-15] MEDS: SERTRALINE HCL 50 MG TABLET GT SCH (12:17)
[2022-11-15] MEDS: GLUCERNA 1.2 1000ML LIQUID GT PRN (17:11)
[2022-11-15] MEDS: FOSFOMYCIN TROMETHAMINE 3 GM PACKET GT SCH (21:25)
[2022-11-15] MEDS: MULTIVIT, IRON, MIN NO. 8, FA TABLET GT SCH (21:30)
[2022-11-15] MEDS: ASCORBIC ACID 500 MG TABLET GT SCH (21:31)
[2022-11-15] MEDS: SIMVASTATIN 10 MG TABLET GT SCH (21:31)
[2022-11-15] MEDS: ESTROGENS,CONJU VAGINAL CREAM 42.5 GM TUBE VG SCH (21:32)
[2022-11-16] VITALS (14 sets, daily range): TEMP 97.6–98.7; O2SAT 97–99
[2022-11-16] MEDS: ALBUTEROL SULFATE 2.5 MG/3 ML NEBU NEB SCH ×5 (03:04→19:30)
[2022-11-16] MEDS: IPRATROPIUM BROMIDE 0.5 MG/2.5 ML NEBU NEB SCH ×5 (03:04→19:30)
[2022-11-16] MEDS: HYDROCODONE/APAP 10-325 MG TABLET GT PRN (05:17)
[2022-11-16] MEDS: MIDODRINE HCL 5 MG TABLET GT SCH ×3 (06:00→21:33)
[2022-11-16] MEDS: ARGININE/GLUTAMINE/CALCIUM BMB 1 EACH POWD.PACK GT SCH ×2 (06:11→17:54)
[2022-11-16] MEDS: OMEPRAZOLE 20 MG CAPSULE.DR GT SCH (06:11)
[2022-11-16] MEDS: BACLOFEN 10 MG TABLET GT SCH ×4 (06:11→17:54)
[2022-11-16] MEDS: OMEGA-3 FATTY ACIDS/FISH OIL CAPSULE GT SCH ×2 (06:11→17:54)
[2022-11-16] MEDS: PROTEIN SUPPLEMENT (PROSTAT) 30 ML LIQUID GT SCH ×3 (06:12→21:33)
[2022-11-16] MEDS: ACETAMINOPHEN 650 MG/20.3 ML LIQUID UDC GT SCH ×2 (08:30→21:28)
[2022-11-16] MEDS: SODIUM HYPOCHLORITE 0.125% (QUARTER STRENGTH) 473 ML BOTTLE TP SCH (09:00)
[2022-11-16] MEDS: REMEDY ESSENTIAL ZINC PASTE 113 GM TP SCH ×2 (09:00→21:32)
[2022-11-16] MEDS: APIXABAN 2.5 MG TABLET GT SCH ×2 (09:00→21:29)
[2022-11-16] MEDS: NITROFURANTOIN 25 MG/5 ML GT SCH (09:00)
[2022-11-16] MEDS: HYDROGEN PEROXIDE 3% 118 ML BOTTLE TP SCH ×2 (09:00→20:50)
[2022-11-16] MEDS: VITAMINS A AND D OINT 42 GM TUBE TP SCH ×2 (09:00→21:32)
[2022-11-16] MEDS: ACIDOPHILUS/BULGARICUS CHEW TAB GT SCH ×2 (09:00→21:29)
[2022-11-16] MEDS: SERTRALINE HCL 50 MG TABLET GT SCH (12:00)
[2022-11-16] MEDS: ASCORBIC ACID 500 MG TABLET GT SCH (21:32)
[2022-11-16] MEDS: SIMVASTATIN 10 MG TABLET GT SCH (21:32)
[2022-11-16] MEDS: MULTIVIT, IRON, MIN NO. 8, FA TABLET GT SCH (21:32)
[2022-11-16] MEDS: ESTROGENS,CONJU VAGINAL CREAM 42.5 GM TUBE VG SCH (21:32)
[2022-11-16] MEDS: GLUCERNA 1.2 1000ML LIQUID GT PRN (21:34)
[2022-11-17] VITALS (12 sets, daily range): TEMP 97.2; O2SAT 97–99
[2022-11-17] MEDS: ALBUTEROL SULFATE 2.5 MG/3 ML NEBU NEB SCH ×7 (00:18→23:58)
[2022-11-17] MEDS: IPRATROPIUM BROMIDE 0.5 MG/2.5 ML NEBU NEB SCH ×7 (00:18→23:58)
[2022-11-17] MEDS: ARGININE/GLUTAMINE/CALCIUM BMB 1 EACH POWD.PACK GT SCH ×2 (05:06→18:08)
[2022-11-17] MEDS: OMEGA-3 FATTY ACIDS/FISH OIL CAPSULE GT SCH ×2 (05:06→18:08)
[2022-11-17] MEDS: BACLOFEN 10 MG TABLET GT SCH ×4 (05:06→18:08)
[2022-11-17] MEDS: OMEPRAZOLE 20 MG CAPSULE.DR GT SCH (05:07)
[2022-11-17] MEDS: MIDODRINE HCL 5 MG TABLET GT SCH ×3 (05:08→21:30)
[2022-11-17] MEDS: PROTEIN SUPPLEMENT (PROSTAT) 30 ML LIQUID GT SCH ×3 (05:09→21:30)
[2022-11-17] MEDS: ACETAMINOPHEN 650 MG/20.3 ML LIQUID UDC GT SCH ×2 (08:41→21:25)
[2022-11-17] MEDS: ACIDOPHILUS/BULGARICUS CHEW TAB GT SCH ×2 (08:44→21:27)
[2022-11-17] MEDS: APIXABAN 2.5 MG TABLET GT SCH ×2 (08:44→21:27)
[2022-11-17] MEDS: VITAMINS A AND D OINT 42 GM TUBE TP SCH ×2 (08:46→21:30)
[2022-11-17] MEDS: NITROFURANTOIN 25 MG/5 ML GT SCH (08:46)
[2022-11-17] MEDS: REMEDY ESSENTIAL ZINC PASTE 113 GM TP SCH ×2 (09:00→21:30)
[2022-11-17] MEDS: HYDROGEN PEROXIDE 3% 118 ML BOTTLE TP SCH ×2 (09:24→21:00)
[2022-11-17] MEDS: SERTRALINE HCL 50 MG TABLET GT SCH (11:46)
[2022-11-17] MEDS: HYDROCODONE/APAP 10-325 MG TABLET GT PRN (11:47)
[2022-11-17] MEDS: SIMVASTATIN 10 MG TABLET GT SCH (21:28)
[2022-11-17] MEDS: ASCORBIC ACID 500 MG TABLET GT SCH (21:28)
[2022-11-17] MEDS: MULTIVIT, IRON, MIN NO. 8, FA TABLET GT SCH (21:28)
[2022-11-17] MEDS: ESTROGENS,CONJU VAGINAL CREAM 42.5 GM TUBE VG SCH (21:30)
[2022-11-18] VITALS (17 sets, daily range): TEMP 98.3–98.4; O2SAT 98–99
[2022-11-18] MEDS: ALBUTEROL SULFATE 2.5 MG/3 ML NEBU NEB SCH ×6 (03:26→23:11)
[2022-11-18] MEDS: IPRATROPIUM BROMIDE 0.5 MG/2.5 ML NEBU NEB SCH ×6 (03:26→23:11)
[2022-11-18] MEDS: OMEGA-3 FATTY ACIDS/FISH OIL CAPSULE GT SCH ×2 (05:43→17:48)
[2022-11-18] MEDS: BACLOFEN 10 MG TABLET GT SCH ×4 (05:43→17:48)
[2022-11-18] MEDS: OMEPRAZOLE 20 MG CAPSULE.DR GT SCH (05:43)
[2022-11-18] MEDS: PROTEIN SUPPLEMENT (PROSTAT) 30 ML LIQUID GT SCH ×3 (05:43→22:31)
[2022-11-18] MEDS: MIDODRINE HCL 5 MG TABLET GT SCH ×3 (05:43→22:00)
[2022-11-18] MEDS: ARGININE/GLUTAMINE/CALCIUM BMB 1 EACH POWD.PACK GT SCH ×2 (05:43→17:48)
[2022-11-18] MEDS: ACETAMINOPHEN 650 MG/20.3 ML LIQUID UDC GT SCH ×2 (08:42→20:25)
[2022-11-18] MEDS: APIXABAN 2.5 MG TABLET GT SCH ×2 (08:44→20:25)
[2022-11-18] MEDS: ACIDOPHILUS/BULGARICUS CHEW TAB GT SCH ×2 (08:45→20:26)
[2022-11-18] MEDS: NITROFURANTOIN 25 MG/5 ML GT SCH (08:46)
[2022-11-18] MEDS: REMEDY ESSENTIAL ZINC PASTE 113 GM TP SCH ×2 (09:00→20:27)
[2022-11-18] MEDS: SODIUM HYPOCHLORITE 0.125% (QUARTER STRENGTH) 473 ML BOTTLE TP SCH (09:00)
[2022-11-18] MEDS: VITAMINS A AND D OINT 42 GM TUBE TP SCH ×2 (09:00→20:27)
[2022-11-18] MEDS: HYDROGEN PEROXIDE 3% 118 ML BOTTLE TP SCH ×2 (09:40→19:21)
[2022-11-18] MEDS: SERTRALINE HCL 50 MG TABLET GT SCH (12:36)
[2022-11-18] MEDS: HYDROCODONE/APAP 10-325 MG TABLET GT PRN (17:48)
[2022-11-18] MEDS: MULTIVIT, IRON, MIN NO. 8, FA TABLET GT SCH (20:26)
[2022-11-18] MEDS: ASCORBIC ACID 500 MG TABLET GT SCH (20:27)
[2022-11-18] MEDS: ESTROGENS,CONJU VAGINAL CREAM 42.5 GM TUBE VG SCH (20:27)
[2022-11-18] MEDS: SIMVASTATIN 10 MG TABLET GT SCH (20:27)
[2022-11-19] VITALS (18 sets, daily range): TEMP 98.3–99; O2SAT 98–99
[2022-11-19] MEDS: IPRATROPIUM BROMIDE 0.5 MG/2.5 ML NEBU NEB SCH ×6 (03:53→23:16)
[2022-11-19] MEDS: ALBUTEROL SULFATE 2.5 MG/3 ML NEBU NEB SCH ×6 (03:53→23:16)
[2022-11-19] MEDS: OMEGA-3 FATTY ACIDS/FISH OIL CAPSULE GT SCH ×2 (06:04→17:17)
[2022-11-19] MEDS: ARGININE/GLUTAMINE/CALCIUM BMB 1 EACH POWD.PACK GT SCH ×2 (06:04→17:17)
[2022-11-19] MEDS: OMEPRAZOLE 20 MG CAPSULE.DR GT SCH (06:04)
[2022-11-19] MEDS: BACLOFEN 10 MG TABLET GT SCH ×5 (06:04→23:41)
[2022-11-19] MEDS: MIDODRINE HCL 5 MG TABLET GT SCH ×3 (06:05→22:00)
[2022-11-19] MEDS: PROTEIN SUPPLEMENT (PROSTAT) 30 ML LIQUID GT SCH ×3 (06:05→22:08)
[2022-11-19] MEDS: ACETAMINOPHEN 650 MG/20.3 ML LIQUID UDC GT SCH ×2 (08:53→20:30)
[2022-11-19] MEDS: APIXABAN 2.5 MG TABLET GT SCH ×2 (08:56→21:00)
[2022-11-19] MEDS: ACIDOPHILUS/BULGARICUS CHEW TAB GT SCH ×2 (08:57→21:00)
[2022-11-19] MEDS: NITROFURANTOIN MACROCRYSTAL 100 MG CAPSULE GT SCH (08:57)
[2022-11-19] MEDS: REMEDY ESSENTIAL ZINC PASTE 113 GM TP SCH ×2 (08:58→21:00)
[2022-11-19] MEDS: VITAMINS A AND D OINT 42 GM TUBE TP SCH ×2 (08:58→21:00)
[2022-11-19] MEDS ORDERED: NITROFURANTOIN/NITROFURAN MAC 100 MG CAPSULE PO SCH (09:00)
[2022-11-19] MEDS: HYDROGEN PEROXIDE 3% 118 ML BOTTLE TP SCH ×2 (11:45→23:14)
[2022-11-19] MEDS: SERTRALINE HCL 50 MG TABLET GT SCH (12:00)
[2022-11-19] MEDS: HYDROCODONE/APAP 10-325 MG TABLET GT PRN ×2 (15:11→22:16)
[2022-11-19] MEDS: ASCORBIC ACID 500 MG TABLET GT SCH (21:00)
[2022-11-19] MEDS: MULTIVIT, IRON, MIN NO. 8, FA TABLET GT SCH (21:00)
[2022-11-19] MEDS: SIMVASTATIN 10 MG TABLET GT SCH (21:00)
[2022-11-19] MEDS: ESTROGENS,CONJU VAGINAL CREAM 42.5 GM TUBE VG SCH (21:00)
[2022-11-20] VITALS (17 sets, daily range): TEMP 97.6–99.2; O2SAT 98–99
[2022-11-20] MEDS: IPRATROPIUM BROMIDE 0.5 MG/2.5 ML NEBU NEB SCH ×5 (03:28→21:09)
[2022-11-20] MEDS: BACLOFEN 10 MG TABLET GT SCH ×3 (05:45→17:49)
[2022-11-20] MEDS: ARGININE/GLUTAMINE/CALCIUM BMB 1 EACH POWD.PACK GT SCH ×2 (05:45→17:48)
[2022-11-20] MEDS: OMEPRAZOLE 20 MG CAPSULE.DR GT SCH (05:45)
[2022-11-20] MEDS: GLUCERNA 1.2 1000ML LIQUID GT PRN (05:46)
[2022-11-20] MEDS: OMEGA-3 FATTY ACIDS/FISH OIL CAPSULE GT SCH ×2 (05:46→17:48)
[2022-11-20] MEDS: PROTEIN SUPPLEMENT (PROSTAT) 30 ML LIQUID GT SCH ×3 (05:46→21:33)
[2022-11-20] MEDS: MIDODRINE HCL 5 MG TABLET GT SCH ×3 (05:48→21:33)
[2022-11-20] MEDS: ALBUTEROL SULFATE 2.5 MG/3 ML NEBU NEB SCH ×5 (06:12→21:10)
[2022-11-20] MEDS: ACETAMINOPHEN 650 MG/20.3 ML LIQUID UDC GT SCH ×2 (08:20→20:26)
[2022-11-20] MEDS: APIXABAN 2.5 MG TABLET GT SCH ×2 (08:21→20:27)
[2022-11-20] MEDS: ACIDOPHILUS/BULGARICUS CHEW TAB GT SCH ×2 (08:21→20:28)
[2022-11-20] MEDS: NITROFURANTOIN MACROCRYSTAL 100 MG CAPSULE GT SCH (08:21)
[2022-11-20] MEDS: VITAMINS A AND D OINT 42 GM TUBE TP SCH ×2 (08:21→20:29)
[2022-11-20] MEDS: REMEDY ESSENTIAL ZINC PASTE 113 GM TP SCH ×2 (08:21→20:29)
[2022-11-20] MEDS: HYDROGEN PEROXIDE 3% 118 ML BOTTLE TP SCH ×2 (09:27→21:10)
[2022-11-20] MEDS: SERTRALINE HCL 50 MG TABLET GT SCH (11:06)
[2022-11-20] MEDS: MULTIVIT, IRON, MIN NO. 8, FA TABLET GT SCH (20:28)
[2022-11-20] MEDS: SIMVASTATIN 10 MG TABLET GT SCH (20:29)
[2022-11-20] MEDS: ESTROGENS,CONJU VAGINAL CREAM 42.5 GM TUBE VG SCH (20:29)
[2022-11-20] MEDS: ASCORBIC ACID 500 MG TABLET GT SCH (20:29)
[2022-11-20] MEDS: HYDROCODONE/APAP 10-325 MG TABLET GT PRN (21:33)
[2022-11-21] VITALS (16 sets, daily range): TEMP 98.3–100.7; O2SAT 98–99
[2022-11-21] MEDS: IPRATROPIUM BROMIDE 0.5 MG/2.5 ML NEBU NEB SCH ×7 (00:11→23:15)
[2022-11-21] MEDS: ALBUTEROL SULFATE 2.5 MG/3 ML NEBU NEB SCH ×7 (00:11→23:15)
[2022-11-21] MEDS: BACLOFEN 10 MG TABLET GT SCH ×4 (00:33→18:13)
[2022-11-21] MEDS: MIDODRINE HCL 5 MG TABLET GT SCH ×3 (05:20→22:00)
[2022-11-21] MEDS: OMEGA-3 FATTY ACIDS/FISH OIL CAPSULE GT SCH ×2 (05:20→18:13)
[2022-11-21] MEDS: OMEPRAZOLE 20 MG CAPSULE.DR GT SCH (05:20)
[2022-11-21] MEDS: ARGININE/GLUTAMINE/CALCIUM BMB 1 EACH POWD.PACK GT SCH ×2 (05:20→18:13)
[2022-11-21] MEDS: PROTEIN SUPPLEMENT (PROSTAT) 30 ML LIQUID GT SCH ×3 (05:21→22:56)
[2022-11-21 07:43] LABS: ALBUMIN 2.8 g/dL (3.4-5.0); BILIRUBIN,TOTAL 0.5 mg/dL (0.2-1.0); CALCIUM 9.4 mg/dL (8.5-10.1); CREATININE 0.9 mg/dL (0.6-1.3); TOTAL PROTEIN, SERUM 9.1 g/dL (6.4-8.2)
[2022-11-21 07:50] LABS: POTASSIUM 2.8 mmol/L (3.5-5.1)
[2022-11-21] MEDS: ACETAMINOPHEN 650 MG/20.3 ML LIQUID UDC GT SCH ×2 (08:38→20:30)
[2022-11-21] MEDS: APIXABAN 2.5 MG TABLET GT SCH (09:00)
[2022-11-21] MEDS: ACIDOPHILUS/BULGARICUS CHEW TAB GT SCH ×2 (09:00→20:30)
[2022-11-21] MEDS: VITAMINS A AND D OINT 42 GM TUBE TP SCH ×2 (09:00→20:31)
[2022-11-21] MEDS: SODIUM HYPOCHLORITE 0.125% (QUARTER STRENGTH) 473 ML BOTTLE TP SCH (09:00)
[2022-11-21] MEDS: NITROFURANTOIN MACROCRYSTAL 100 MG CAPSULE GT SCH (09:00)
[2022-11-21] MEDS: REMEDY ESSENTIAL ZINC PASTE 113 GM TP SCH ×2 (09:00→20:31)
[2022-11-21] MEDS: HYDROGEN PEROXIDE 3% 118 ML BOTTLE TP SCH ×2 (09:19→19:26)
[2022-11-21] MEDS ORDERED: POTASSIUM CHLORIDE 10 MEQ TAB.PRT.SR XX ONE (09:30)
[2022-11-21] MEDS: POTASSIUM CHLORIDE 20 MEQ POWDER PACKET GT SCH ×3 (11:00→15:00)
[2022-11-21] MEDS: SERTRALINE HCL 50 MG TABLET GT SCH (12:00)
[2022-11-21 12:11] LABS: BASOPHILS # (AUTO) 0.1 K/UL (0.0-0.2); BASOPHILS % (AUTO) 0.7 % (0.0-2.0); EOSINOPHILS # (AUTO) 0.2 K/uL (0.0-0.7); EOSINOPHILS % (AUTO) 2.7 % (0.0-7.0); HEMATOCRIT 34.9 % (31.2-41.9); LYMPHOCYTES # (AUTO) 2.1 K/uL (0.8-4.8); LYMPHOCYTES % (AUTO) 24.6 % (20.5-51.5); MEAN CORPUSCULAR HEMOGLOBIN 25.8 uug (24.7-32.8); MEAN CORPUSCULAR HGB CONC 32 g/dL (32.3-35.6); MEAN CORPUSCULAR VOLUME 81.8 fL (75.5-95.3); MONOCYTES # (AUTO) 1.1 K/uL (0.1-1.30); MONOCYTES % (AUTO) 12.9 % (0.0-11.0); NEUTROPHILS # (AUTO) 5.1 K/uL (1.8-8.9); NEUTROPHILS % (AUTO) 59.1 % (38.5-71.5); PLATELET COUNT (AUTO) 212 K/uL (179-408); RED BLOOD CELL COUNT(AUTO) 4.26 MIL/uL (3.63-4.92); WHITE BLOOD COUNT (AUTO) 8.7 K/uL (3.8-11.8)
[2022-11-21 12:20] LABS: DIFFERENTIAL COMMENT 1
[2022-11-21 12:28] LABS: *BLOOD, URINE 3+ (NEGATIVE); *CLARITY,URINE CLOUDY (CLEAR); *COLOR,URINE RED (YELLOW); *KETONES,URINE 2+ (NEGATIVE); LEUKOCYTE ESTERASE ,URINE 3+ (NEGATIVE); NITRITE, URINE POSITIVE (NEGATIVE); PH,URINE 8.5 (5.0-8.0); UGLUCOSE TRACE (NEGATIVE)
[2022-11-21 12:41] LABS: *BILIRUBIN,URIN 3+ (NEGATIVE); *PROTEIN,URINE 3+ (NEGATIVE)
[2022-11-21 14:05] LABS: BACTERIA,URINE MODERATE /HPF (NONE SEEN); RBC,URINE TNTC /HPF (0-3); SQUAMOUS EPITHELIAL CELL,UR NONE SEEN /HPF (NONE SEEN)
[2022-11-21] MEDS: ASCORBIC ACID 500 MG TABLET GT SCH (20:31)
[2022-11-21] MEDS: SIMVASTATIN 10 MG TABLET GT SCH (20:31)
[2022-11-21] MEDS: MULTIVIT, IRON, MIN NO. 8, FA TABLET GT SCH (20:31)
[2022-11-21] MEDS: ESTROGENS,CONJU VAGINAL CREAM 42.5 GM TUBE VG SCH (20:32)
[2022-11-22] VITALS (14 sets, daily range): TEMP 98.8–100; O2SAT 98–99
[2022-11-22] MEDS: BACLOFEN 10 MG TABLET GT SCH ×5 (00:51→23:53)
[2022-11-22] MEDS: IPRATROPIUM BROMIDE 0.5 MG/2.5 ML NEBU NEB SCH ×6 (03:21→23:26)
[2022-11-22] MEDS: ALBUTEROL SULFATE 2.5 MG/3 ML NEBU NEB SCH ×6 (03:21→23:26)
[2022-11-22] MEDS: ARGININE/GLUTAMINE/CALCIUM BMB 1 EACH POWD.PACK GT SCH ×2 (05:40→17:17)
[2022-11-22] MEDS: OMEPRAZOLE 20 MG CAPSULE.DR GT SCH (05:40)
[2022-11-22] MEDS: OMEGA-3 FATTY ACIDS/FISH OIL CAPSULE GT SCH ×2 (05:40→17:17)
[2022-11-22] MEDS: MIDODRINE HCL 5 MG TABLET GT SCH ×3 (05:41→22:00)
[2022-11-22] MEDS: PROTEIN SUPPLEMENT (PROSTAT) 30 ML LIQUID GT SCH ×3 (05:41→22:00)
[2022-11-22] MEDS: ACETAMINOPHEN 650 MG/20.3 ML LIQUID UDC GT SCH ×2 (08:30→20:30)
[2022-11-22] MEDS: ACIDOPHILUS/BULGARICUS CHEW TAB GT SCH ×2 (09:44→20:30)
[2022-11-22] MEDS: REMEDY ESSENTIAL ZINC PASTE 113 GM TP SCH ×2 (09:44→20:31)
[2022-11-22] MEDS: HYDROGEN PEROXIDE 3% 118 ML BOTTLE TP SCH ×2 (09:44→19:09)
[2022-11-22] MEDS: VITAMINS A AND D OINT 42 GM TUBE TP SCH ×2 (09:44→20:32)
[2022-11-22] MEDS: NITROFURANTOIN MACROCRYSTAL 100 MG CAPSULE GT SCH (09:44)
[2022-11-22] MEDS: SERTRALINE HCL 50 MG TABLET GT SCH (12:00)
[2022-11-22] MEDS: CEFEPIME HCL 1 G in IV DEXTROSE 5% 50 ML IV SCH (13:15)
[2022-11-22] MEDS: SIMVASTATIN 10 MG TABLET GT SCH (20:31)
[2022-11-22] MEDS: MULTIVIT, IRON, MIN NO. 8, FA TABLET GT SCH (20:31)
[2022-11-22] MEDS: ASCORBIC ACID 500 MG TABLET GT SCH (20:31)
[2022-11-22] MEDS: ESTROGENS,CONJU VAGINAL CREAM 42.5 GM TUBE VG SCH (20:32)
[2022-11-22] MEDS: SILVER SULFADIAZINE 1% CREAM 50 GM TP SCH (20:32)
[2022-11-22] MEDS: FOSFOMYCIN TROMETHAMINE 3 GM PACKET GT SCH (21:00)
[2022-11-23] VITALS (14 sets, daily range): TEMP 98.3–99.8; O2SAT 98–99
[2022-11-23] MEDS: CEFEPIME HCL 1 G in IV DEXTROSE 5% 50 ML IV SCH ×2 (01:00→13:00)
[2022-11-23] MEDS: IPRATROPIUM BROMIDE 0.5 MG/2.5 ML NEBU NEB SCH ×6 (03:56→23:00)
[2022-11-23] MEDS: ALBUTEROL SULFATE 2.5 MG/3 ML NEBU NEB SCH ×6 (03:57→23:00)
[2022-11-23] MEDS: BACLOFEN 10 MG TABLET GT SCH ×3 (05:41→17:36)
[2022-11-23] MEDS: OMEPRAZOLE 20 MG CAPSULE.DR GT SCH (05:41)
[2022-11-23] MEDS: ARGININE/GLUTAMINE/CALCIUM BMB 1 EACH POWD.PACK GT SCH ×2 (05:41→17:36)
[2022-11-23] MEDS: OMEGA-3 FATTY ACIDS/FISH OIL CAPSULE GT SCH ×2 (05:41→17:38)
[2022-11-23] MEDS: MIDODRINE HCL 5 MG TABLET GT SCH ×3 (05:42→21:08)
[2022-11-23] MEDS: PROTEIN SUPPLEMENT (PROSTAT) 30 ML LIQUID GT SCH ×3 (05:42→21:08)
[2022-11-23] MEDS: NITROFURANTOIN MACROCRYSTAL 100 MG CAPSULE GT SCH (09:10)
[2022-11-23] MEDS: ACETAMINOPHEN 650 MG/20.3 ML LIQUID UDC GT SCH ×2 (09:10→21:06)
[2022-11-23] MEDS: ACIDOPHILUS/BULGARICUS CHEW TAB GT SCH ×2 (09:10→21:06)
[2022-11-23] MEDS: SODIUM HYPOCHLORITE 0.125% (QUARTER STRENGTH) 473 ML BOTTLE TP SCH (09:12)
[2022-11-23] MEDS: SILVER SULFADIAZINE 1% CREAM 50 GM TP SCH ×2 (09:12→21:07)
[2022-11-23] MEDS: HYDROGEN PEROXIDE 3% 118 ML BOTTLE TP SCH ×2 (09:12→21:04)
[2022-11-23] MEDS: REMEDY ESSENTIAL ZINC PASTE 113 GM TP SCH ×2 (09:12→21:07)
[2022-11-23] MEDS: VITAMINS A AND D OINT 42 GM TUBE TP SCH ×2 (09:12→21:07)
[2022-11-23] MEDS: SERTRALINE HCL 50 MG TABLET GT SCH (12:00)
[2022-11-23] MEDS ORDERED: SODIUM HYPOCHLORITE 0.125% (QUARTER STRENGTH) 473 ML BOTTLE TP PRN ×2 (14:00→18:19)
[2022-11-23] MEDS: POTASSIUM CHLORIDE 20 MEQ POWDER PACKET GT SCH ×2 (20:00→22:58)
[2022-11-23] MEDS: ESTROGENS,CONJU VAGINAL CREAM 42.5 GM TUBE VG SCH (21:07)
[2022-11-23] MEDS: ASCORBIC ACID 500 MG TABLET GT SCH (21:07)
[2022-11-23] MEDS: SIMVASTATIN 10 MG TABLET GT SCH (21:07)
[2022-11-23] MEDS: MULTIVIT, IRON, MIN NO. 8, FA TABLET GT SCH (21:07)
[2022-11-24] VITALS (15 sets, daily range): BP systolic 101; BP diastolic 44; TEMP 97.6–98.3; O2SAT 98–99
[2022-11-24] MEDS: BACLOFEN 10 MG TABLET GT SCH ×5 (00:19→23:27)
[2022-11-24] MEDS: CEFEPIME HCL 1 G in IV DEXTROSE 5% 50 ML IV SCH ×2 (01:00→13:00)
[2022-11-24] MEDS: IPRATROPIUM BROMIDE 0.5 MG/2.5 ML NEBU NEB SCH ×6 (03:00→23:18)
[2022-11-24] MEDS: ALBUTEROL SULFATE 2.5 MG/3 ML NEBU NEB SCH ×6 (03:00→23:18)
[2022-11-24] MEDS: ARGININE/GLUTAMINE/CALCIUM BMB 1 EACH POWD.PACK GT SCH ×2 (06:34→18:31)
[2022-11-24] MEDS: MIDODRINE HCL 5 MG TABLET GT SCH ×3 (06:34→22:05)
[2022-11-24] MEDS: OMEGA-3 FATTY ACIDS/FISH OIL CAPSULE GT SCH ×2 (06:34→18:31)
[2022-11-24] MEDS: PROTEIN SUPPLEMENT (PROSTAT) 30 ML LIQUID GT SCH ×3 (06:34→22:05)
[2022-11-24] MEDS: OMEPRAZOLE 20 MG CAPSULE.DR GT SCH (06:34)
[2022-11-24] MEDS: ACETAMINOPHEN 650 MG/20.3 ML LIQUID UDC GT SCH ×2 (08:30→20:30)
[2022-11-24] MEDS: HYDROGEN PEROXIDE 3% 118 ML BOTTLE TP SCH ×2 (09:21→19:10)
[2022-11-24] MEDS: ACIDOPHILUS/BULGARICUS CHEW TAB GT SCH ×2 (09:34→21:00)
[2022-11-24] MEDS: REMEDY ESSENTIAL ZINC PASTE 113 GM TP SCH ×2 (09:37→21:00)
[2022-11-24] MEDS: VITAMINS A AND D OINT 42 GM TUBE TP SCH ×2 (09:37→21:00)
[2022-11-24] MEDS: NITROFURANTOIN MACROCRYSTAL 100 MG CAPSULE GT SCH (09:37)
[2022-11-24] MEDS: SILVER SULFADIAZINE 1% CREAM 50 GM TP SCH ×2 (09:37→21:00)
[2022-11-24] MEDS: SERTRALINE HCL 50 MG TABLET GT SCH (12:22)
[2022-11-24] MEDS: ASCORBIC ACID 500 MG TABLET GT SCH (21:00)
[2022-11-24] MEDS: ESTROGENS,CONJU VAGINAL CREAM 42.5 GM TUBE VG SCH (21:00)
[2022-11-24] MEDS: MULTIVIT, IRON, MIN NO. 8, FA TABLET GT SCH (21:00)
[2022-11-24] MEDS: SIMVASTATIN 10 MG TABLET GT SCH (21:00)
[2022-11-24] MEDS: GLUCERNA 1.2 1000ML LIQUID GT PRN (22:05)
[2022-11-24] MEDS: TEMAZEPAM 7.5 MG CAPSULE GT PRN (22:29)
[2022-11-25] VITALS (14 sets, daily range): TEMP 97.2–98.4; O2SAT 98–99
[2022-11-25] MEDS: CEFEPIME HCL 1 G in IV DEXTROSE 5% 50 ML IV SCH ×2 (01:40→13:47)
[2022-11-25] MEDS: ALBUTEROL SULFATE 2.5 MG/3 ML NEBU NEB SCH ×5 (03:24→23:41)
[2022-11-25] MEDS: IPRATROPIUM BROMIDE 0.5 MG/2.5 ML NEBU NEB SCH ×5 (03:24→23:41)
[2022-11-25] MEDS: BACLOFEN 10 MG TABLET GT SCH ×3 (05:08→17:58)
[2022-11-25] MEDS: MIDODRINE HCL 5 MG TABLET GT SCH ×3 (05:08→22:27)
[2022-11-25] MEDS: OMEPRAZOLE 20 MG CAPSULE.DR GT SCH (05:08)
[2022-11-25] MEDS: OMEGA-3 FATTY ACIDS/FISH OIL CAPSULE GT SCH ×2 (05:08→17:58)
[2022-11-25] MEDS: ARGININE/GLUTAMINE/CALCIUM BMB 1 EACH POWD.PACK GT SCH ×2 (05:08→17:58)
[2022-11-25] MEDS: PROTEIN SUPPLEMENT (PROSTAT) 30 ML LIQUID GT SCH ×3 (05:08→22:27)
[2022-11-25] MEDS: HYDROGEN PEROXIDE 3% 118 ML BOTTLE TP SCH ×2 (07:39→18:58)
[2022-11-25] MEDS: ACETAMINOPHEN 650 MG/20.3 ML LIQUID UDC GT SCH ×2 (09:26→20:30)
[2022-11-25] MEDS: ACIDOPHILUS/BULGARICUS CHEW TAB GT SCH ×2 (09:27→21:00)
[2022-11-25] MEDS: NITROFURANTOIN MACROCRYSTAL 100 MG CAPSULE GT SCH (09:30)
[2022-11-25] MEDS: SODIUM HYPOCHLORITE 0.125% (QUARTER STRENGTH) 473 ML BOTTLE TP SCH (09:31)
[2022-11-25] MEDS: REMEDY ESSENTIAL ZINC PASTE 113 GM TP SCH ×2 (09:36→21:00)
[2022-11-25] MEDS: VITAMINS A AND D OINT 42 GM TUBE TP SCH ×2 (09:37→21:00)
[2022-11-25] MEDS: SILVER SULFADIAZINE 1% CREAM 50 GM TP SCH ×2 (09:37→21:00)
[2022-11-25] MEDS: SERTRALINE HCL 50 MG TABLET GT SCH (12:52)
[2022-11-25] MEDS: MULTIVIT, IRON, MIN NO. 8, FA TABLET GT SCH (21:00)
[2022-11-25] MEDS: SIMVASTATIN 10 MG TABLET GT SCH (21:00)
[2022-11-25] MEDS: ASCORBIC ACID 500 MG TABLET GT SCH (21:00)
[2022-11-25] MEDS: ESTROGENS,CONJU VAGINAL CREAM 42.5 GM TUBE VG SCH (21:00)
[2022-11-25] MEDS: TEMAZEPAM 7.5 MG CAPSULE GT PRN (22:00)
[2022-11-26] VITALS (14 sets, daily range): TEMP 97.8–98.9; O2SAT 98–99
[2022-11-26] MEDS: CEFEPIME HCL 1 G in IV DEXTROSE 5% 50 ML IV SCH ×2 (01:00→12:59)
[2022-11-26] MEDS: ALBUTEROL SULFATE 2.5 MG/3 ML NEBU NEB SCH ×6 (03:32→23:41)
[2022-11-26] MEDS: IPRATROPIUM BROMIDE 0.5 MG/2.5 ML NEBU NEB SCH ×6 (03:32→23:41)
[2022-11-26] MEDS: OMEPRAZOLE 20 MG CAPSULE.DR GT SCH (05:19)
[2022-11-26] MEDS: PROTEIN SUPPLEMENT (PROSTAT) 30 ML LIQUID GT SCH ×3 (05:19→22:02)
[2022-11-26] MEDS: OMEGA-3 FATTY ACIDS/FISH OIL CAPSULE GT SCH ×2 (05:19→18:12)
[2022-11-26] MEDS: BACLOFEN 10 MG TABLET GT SCH ×4 (05:19→18:12)
[2022-11-26] MEDS: ARGININE/GLUTAMINE/CALCIUM BMB 1 EACH POWD.PACK GT SCH ×2 (05:19→18:12)
[2022-11-26] MEDS: GLUCERNA 1.2 1000ML LIQUID GT PRN (05:20)
[2022-11-26] MEDS: MIDODRINE HCL 5 MG TABLET GT SCH ×3 (05:32→22:00)
[2022-11-26] MEDS: ACETAMINOPHEN 650 MG/20.3 ML LIQUID UDC GT SCH ×2 (09:09→20:30)
[2022-11-26] MEDS: ACIDOPHILUS/BULGARICUS CHEW TAB GT SCH ×2 (09:09→21:00)
[2022-11-26] MEDS: NITROFURANTOIN MACROCRYSTAL 100 MG CAPSULE GT SCH (09:11)
[2022-11-26] MEDS: SILVER SULFADIAZINE 1% CREAM 50 GM TP SCH ×2 (09:12→21:00)
[2022-11-26] MEDS: VITAMINS A AND D OINT 42 GM TUBE TP SCH ×2 (09:12→21:00)
[2022-11-26] MEDS: REMEDY ESSENTIAL ZINC PASTE 113 GM TP SCH ×2 (09:12→21:00)
[2022-11-26] MEDS: HYDROGEN PEROXIDE 3% 118 ML BOTTLE TP SCH ×2 (09:15→21:00)
[2022-11-26] MEDS: SERTRALINE HCL 50 MG TABLET GT SCH (12:26)
[2022-11-26] MEDS: SIMVASTATIN 10 MG TABLET GT SCH (21:00)
[2022-11-26] MEDS: ESTROGENS,CONJU VAGINAL CREAM 42.5 GM TUBE VG SCH (21:00)
[2022-11-26] MEDS: ASCORBIC ACID 500 MG TABLET GT SCH (21:00)
[2022-11-26] MEDS: MULTIVIT, IRON, MIN NO. 8, FA TABLET GT SCH (21:00)
[2022-11-27] VITALS (14 sets, daily range): TEMP 98.5–98.6; O2SAT 98–99
[2022-11-27] MEDS: CEFEPIME HCL 1 G in IV DEXTROSE 5% 50 ML IV SCH ×2 (01:00→13:03)
[2022-11-27] MEDS: HYDROCODONE/APAP 10-325 MG TABLET GT PRN ×2 (01:30→13:15)
[2022-11-27] MEDS: ALBUTEROL SULFATE 2.5 MG/3 ML NEBU NEB SCH ×6 (03:36→23:15)
[2022-11-27] MEDS: IPRATROPIUM BROMIDE 0.5 MG/2.5 ML NEBU NEB SCH ×6 (03:36→23:15)
[2022-11-27] MEDS: GLUCERNA 1.2 1000ML LIQUID GT PRN (04:01)
[2022-11-27] MEDS: OMEGA-3 FATTY ACIDS/FISH OIL CAPSULE GT SCH ×2 (05:39→17:31)
[2022-11-27] MEDS: BACLOFEN 10 MG TABLET GT SCH ×5 (05:40→23:01)
[2022-11-27] MEDS: ARGININE/GLUTAMINE/CALCIUM BMB 1 EACH POWD.PACK GT SCH ×2 (05:40→17:31)
[2022-11-27] MEDS: PROTEIN SUPPLEMENT (PROSTAT) 30 ML LIQUID GT SCH ×3 (05:40→21:12)
[2022-11-27] MEDS: MIDODRINE HCL 5 MG TABLET GT SCH ×3 (05:40→21:12)
[2022-11-27] MEDS: OMEPRAZOLE 20 MG CAPSULE.DR GT SCH (05:40)
[2022-11-27] MEDS: ACETAMINOPHEN 650 MG/20.3 ML LIQUID UDC GT SCH ×2 (09:12→20:53)
[2022-11-27] MEDS: ACIDOPHILUS/BULGARICUS CHEW TAB GT SCH ×2 (09:12→20:53)
[2022-11-27] MEDS: VITAMINS A AND D OINT 42 GM TUBE TP SCH ×2 (09:13→20:53)
[2022-11-27] MEDS: REMEDY ESSENTIAL ZINC PASTE 113 GM TP SCH ×2 (09:13→20:53)
[2022-11-27] MEDS: NITROFURANTOIN MACROCRYSTAL 100 MG CAPSULE GT SCH (09:13)
[2022-11-27] MEDS: SILVER SULFADIAZINE 1% CREAM 50 GM TP SCH ×2 (09:13→20:53)
[2022-11-27] MEDS: HYDROGEN PEROXIDE 3% 118 ML BOTTLE TP SCH ×2 (10:20→20:15)
[2022-11-27] MEDS: SERTRALINE HCL 50 MG TABLET GT SCH (11:38)
[2022-11-27] MEDS: ESTROGENS,CONJU VAGINAL CREAM 42.5 GM TUBE VG SCH (20:53)
[2022-11-27] MEDS: SIMVASTATIN 10 MG TABLET GT SCH (20:53)
[2022-11-27] MEDS: ASCORBIC ACID 500 MG TABLET GT SCH (20:53)
[2022-11-27] MEDS: MULTIVIT, IRON, MIN NO. 8, FA TABLET GT SCH (20:53)
[2022-11-27] MEDS: TEMAZEPAM 7.5 MG CAPSULE GT PRN (21:00)
[2022-11-28] VITALS (14 sets, daily range): TEMP 97–98.8; O2SAT 98–99
[2022-11-28] MEDS: CEFEPIME HCL 1 G in IV DEXTROSE 5% 50 ML IV SCH ×2 (01:00→13:00)
[2022-11-28] MEDS: IPRATROPIUM BROMIDE 0.5 MG/2.5 ML NEBU NEB SCH ×7 (03:30→23:33)
[2022-11-28] MEDS: ALBUTEROL SULFATE 2.5 MG/3 ML NEBU NEB SCH ×6 (03:30→23:33)
[2022-11-28] MEDS: HYDROCODONE/APAP 10-325 MG TABLET GT PRN ×2 (04:20→17:36)
[2022-11-28] MEDS: ARGININE/GLUTAMINE/CALCIUM BMB 1 EACH POWD.PACK GT SCH ×2 (05:19→17:29)
[2022-11-28] MEDS: OMEGA-3 FATTY ACIDS/FISH OIL CAPSULE GT SCH ×2 (05:19→17:29)
[2022-11-28] MEDS: BACLOFEN 10 MG TABLET GT SCH ×3 (05:20→17:29)
[2022-11-28] MEDS: PROTEIN SUPPLEMENT (PROSTAT) 30 ML LIQUID GT SCH ×3 (05:20→22:58)
[2022-11-28] MEDS: OMEPRAZOLE 20 MG CAPSULE.DR GT SCH (05:20)
[2022-11-28] MEDS: MIDODRINE HCL 5 MG TABLET GT SCH ×3 (05:20→22:00)
[2022-11-28 06:58] LABS: BASOPHILS % (AUTO) 0.5 % (0.0-2.0); EOSINOPHILS # (AUTO) 0.5 K/uL (0.0-0.7); EOSINOPHILS % (AUTO) 5.8 % (0.0-7.0); HEMOGLOBIN 9.3 g/dL (10.9-14.3); LYMPHOCYTES # (AUTO) 1.6 K/uL (0.8-4.8); LYMPHOCYTES % (AUTO) 19.4 % (20.5-51.5); MEAN CORPUSCULAR HEMOGLOBIN 25.6 uug (24.7-32.8); MEAN CORPUSCULAR HGB CONC 31 g/dL (32.3-35.6); MEAN CORPUSCULAR VOLUME 82.5 fL (75.5-95.3); MONOCYTES # (AUTO) 0.5 K/uL (0.1-1.30); NEUTROPHILS # (AUTO) 5.5 K/uL (1.8-8.9); NEUTROPHILS % (AUTO) 68.3 % (38.5-71.5); PLATELET COUNT (AUTO) 253 K/uL (179-408); RED BLOOD CELL COUNT(AUTO) 3.64 MIL/uL (3.63-4.92); RED CELL DISTRIBUTION WIDTH 19.6 % (12.3-17.7); WHITE BLOOD COUNT (AUTO) 8.1 K/uL (3.8-11.8)
[2022-11-28 07:04] LABS: ALBUMIN 2.5 g/dL (3.4-5.0); BILIRUBIN,TOTAL 0.4 mg/dL (0.2-1.0); CALCIUM 9.5 mg/dL (8.5-10.1); CREATININE 0.8 mg/dL (0.6-1.3); MAGNESIUM 2.3 mg/dL (1.8-2.4); PHOSPHOROUS 3.5 mg/dL (2.5-4.9); POTASSIUM 3.8 mmol/L (3.5-5.1); TOTAL PROTEIN, SERUM 7.8 g/dL (6.4-8.2)
[2022-11-28 07:12] LABS: DIFFERENTIAL COMMENT 1
[2022-11-28] MEDS: SODIUM HYPOCHLORITE 0.125% (QUARTER STRENGTH) 473 ML BOTTLE TP SCH (08:49)
[2022-11-28] MEDS: NITROFURANTOIN MACROCRYSTAL 100 MG CAPSULE GT SCH (08:49)
[2022-11-28] MEDS: ACETAMINOPHEN 650 MG/20.3 ML LIQUID UDC GT SCH ×2 (08:49→20:30)
[2022-11-28] MEDS: REMEDY ESSENTIAL ZINC PASTE 113 GM TP SCH ×2 (08:49→21:00)
[2022-11-28] MEDS: ACIDOPHILUS/BULGARICUS CHEW TAB GT SCH ×2 (08:49→21:00)
[2022-11-28] MEDS: HYDROGEN PEROXIDE 3% 118 ML BOTTLE TP SCH ×2 (08:49→21:00)
[2022-11-28] MEDS: SILVER SULFADIAZINE 1% CREAM 50 GM TP SCH ×2 (08:50→21:00)
[2022-11-28] MEDS: VITAMINS A AND D OINT 42 GM TUBE TP SCH ×2 (08:50→21:00)
[2022-11-28] MEDS: SERTRALINE HCL 50 MG TABLET GT SCH (12:00)
[2022-11-28] MEDS: ESTROGENS,CONJU VAGINAL CREAM 42.5 GM TUBE VG SCH (21:00)
[2022-11-28] MEDS: MULTIVIT, IRON, MIN NO. 8, FA TABLET GT SCH (21:00)
[2022-11-28] MEDS: SIMVASTATIN 10 MG TABLET GT SCH (21:00)
[2022-11-28] MEDS: ASCORBIC ACID 500 MG TABLET GT SCH (21:00)
[2022-11-28] MEDS: TEMAZEPAM 7.5 MG CAPSULE GT PRN (22:40)
[2022-11-29] VITALS (15 sets, daily range): TEMP 98.3–99.3; O2SAT 98–99
[2022-11-29] MEDS: CEFEPIME HCL 1 G in IV DEXTROSE 5% 50 ML IV SCH ×2 (01:18→13:00)
[2022-11-29] MEDS: IPRATROPIUM BROMIDE 0.5 MG/2.5 ML NEBU NEB SCH ×6 (03:20→23:00)
[2022-11-29] MEDS: ALBUTEROL SULFATE 2.5 MG/3 ML NEBU NEB SCH ×6 (03:20→23:00)
[2022-11-29] MEDS: BACLOFEN 10 MG TABLET GT SCH ×4 (05:51→17:19)
[2022-11-29] MEDS: OMEGA-3 FATTY ACIDS/FISH OIL CAPSULE GT SCH ×2 (05:51→17:19)
[2022-11-29] MEDS: ARGININE/GLUTAMINE/CALCIUM BMB 1 EACH POWD.PACK GT SCH ×2 (05:51→17:19)
[2022-11-29] MEDS: PROTEIN SUPPLEMENT (PROSTAT) 30 ML LIQUID GT SCH ×3 (05:51→21:02)
[2022-11-29] MEDS: OMEPRAZOLE 20 MG CAPSULE.DR GT SCH (05:51)
[2022-11-29] MEDS: MIDODRINE HCL 5 MG TABLET GT SCH ×3 (05:51→21:04)
[2022-11-29] MEDS: HYDROGEN PEROXIDE 3% 118 ML BOTTLE TP SCH ×2 (07:32→19:16)
[2022-11-29] MEDS: ACETAMINOPHEN 650 MG/20.3 ML LIQUID UDC GT SCH ×2 (09:05→20:30)
[2022-11-29] MEDS: ACIDOPHILUS/BULGARICUS CHEW TAB GT SCH ×2 (09:05→20:56)
[2022-11-29] MEDS: REMEDY ESSENTIAL ZINC PASTE 113 GM TP SCH ×2 (09:06→21:02)
[2022-11-29] MEDS: VITAMINS A AND D OINT 42 GM TUBE TP SCH ×2 (09:06→21:02)
[2022-11-29] MEDS: NITROFURANTOIN MACROCRYSTAL 100 MG CAPSULE GT SCH (09:06)
[2022-11-29] MEDS: SILVER SULFADIAZINE 1% CREAM 50 GM TP SCH ×2 (10:00→21:02)
[2022-11-29] MEDS: SERTRALINE HCL 50 MG TABLET GT SCH (12:23)
[2022-11-29] MEDS: APIXABAN 2.5 MG TABLET GT SCH (20:56)
[2022-11-29] MEDS: FOSFOMYCIN TROMETHAMINE 3 GM PACKET GT SCH (20:58)
[2022-11-29] MEDS: ASCORBIC ACID 500 MG TABLET GT SCH (21:00)
[2022-11-29] MEDS: MULTIVIT, IRON, MIN NO. 8, FA TABLET GT SCH (21:00)
[2022-11-29] MEDS: SIMVASTATIN 10 MG TABLET GT SCH (21:01)
[2022-11-29] MEDS: ESTROGENS,CONJU VAGINAL CREAM 42.5 GM TUBE VG SCH (21:02)
[2022-11-29] MEDS: HYDROCODONE/APAP 10-325 MG TABLET GT PRN (22:00)
[2022-11-29] MEDS: TEMAZEPAM 7.5 MG CAPSULE GT PRN (22:00)
[2022-11-30] VITALS (14 sets, daily range): TEMP 98.6–98.8; O2SAT 98–99
[2022-11-30] MEDS: BACLOFEN 10 MG TABLET GT SCH ×4 (00:35→17:08)
[2022-11-30] MEDS: IPRATROPIUM BROMIDE 0.5 MG/2.5 ML NEBU NEB SCH ×6 (03:01→23:29)
[2022-11-30] MEDS: ALBUTEROL SULFATE 2.5 MG/3 ML NEBU NEB SCH ×6 (03:01→23:29)
[2022-11-30] MEDS: OMEPRAZOLE 20 MG CAPSULE.DR GT SCH (05:48)
[2022-11-30] MEDS: ARGININE/GLUTAMINE/CALCIUM BMB 1 EACH POWD.PACK GT SCH ×2 (05:48→17:08)
[2022-11-30] MEDS: OMEGA-3 FATTY ACIDS/FISH OIL CAPSULE GT SCH ×2 (05:48→17:08)
[2022-11-30] MEDS: PROTEIN SUPPLEMENT (PROSTAT) 30 ML LIQUID GT SCH ×3 (05:49→21:16)
[2022-11-30] MEDS: MIDODRINE HCL 5 MG TABLET GT SCH ×3 (05:49→21:16)
[2022-11-30] MEDS: ACETAMINOPHEN 650 MG/20.3 ML LIQUID UDC GT SCH ×2 (08:30→20:35)
[2022-11-30] MEDS: HYDROGEN PEROXIDE 3% 118 ML BOTTLE TP SCH ×2 (09:06→21:00)
[2022-11-30] MEDS: APIXABAN 2.5 MG TABLET GT SCH ×2 (09:53→20:47)
[2022-11-30] MEDS: ACIDOPHILUS/BULGARICUS CHEW TAB GT SCH ×2 (09:53→20:47)
[2022-11-30] MEDS: NITROFURANTOIN MACROCRYSTAL 100 MG CAPSULE GT SCH (09:54)
[2022-11-30] MEDS: SILVER SULFADIAZINE 1% CREAM 50 GM TP SCH ×2 (09:55→20:48)
[2022-11-30] MEDS: VITAMINS A AND D OINT 42 GM TUBE TP SCH ×2 (09:55→20:48)
[2022-11-30] MEDS: SODIUM HYPOCHLORITE 0.125% (QUARTER STRENGTH) 473 ML BOTTLE TP SCH (09:55)
[2022-11-30] MEDS: REMEDY ESSENTIAL ZINC PASTE 113 GM TP SCH ×2 (09:55→21:16)
[2022-11-30] MEDS: SERTRALINE HCL 50 MG TABLET GT SCH (12:00)
[2022-11-30] MEDS: MULTIVIT, IRON, MIN NO. 8, FA TABLET GT SCH (20:47)
[2022-11-30] MEDS: SIMVASTATIN 10 MG TABLET GT SCH (20:47)
[2022-11-30] MEDS: ASCORBIC ACID 500 MG TABLET GT SCH (20:47)
[2022-11-30] MEDS: ESTROGENS,CONJU VAGINAL CREAM 42.5 GM TUBE VG SCH (20:48)
[2022-12-01] VITALS (14 sets, daily range): TEMP 96.2–98; O2SAT 98–99
[2022-12-01] MEDS: IPRATROPIUM BROMIDE 0.5 MG/2.5 ML NEBU NEB SCH ×6 (03:23→23:14)
[2022-12-01] MEDS: ALBUTEROL SULFATE 2.5 MG/3 ML NEBU NEB SCH ×6 (03:24→23:14)
[2022-12-01] MEDS: OMEGA-3 FATTY ACIDS/FISH OIL CAPSULE GT SCH ×2 (05:09→17:13)
[2022-12-01] MEDS: GLUCERNA 1.2 1000ML LIQUID GT PRN (05:09)
[2022-12-01] MEDS: BACLOFEN 10 MG TABLET GT SCH ×4 (05:10→17:13)
[2022-12-01] MEDS: OMEPRAZOLE 20 MG CAPSULE.DR GT SCH (05:10)
[2022-12-01] MEDS: ARGININE/GLUTAMINE/CALCIUM BMB 1 EACH POWD.PACK GT SCH ×2 (05:10→17:13)
[2022-12-01] MEDS: PROTEIN SUPPLEMENT (PROSTAT) 30 ML LIQUID GT SCH ×3 (05:16→22:33)
[2022-12-01] MEDS: MIDODRINE HCL 5 MG TABLET GT SCH ×3 (05:16→22:33)
[2022-12-01] MEDS: NITROFURANTOIN MACROCRYSTAL 100 MG CAPSULE GT SCH (08:10)
[2022-12-01] MEDS: APIXABAN 2.5 MG TABLET GT SCH ×2 (08:10→20:43)
[2022-12-01] MEDS: REMEDY ESSENTIAL ZINC PASTE 113 GM TP SCH ×2 (08:10→20:46)
[2022-12-01] MEDS: ACETAMINOPHEN 650 MG/20.3 ML LIQUID UDC GT SCH ×2 (08:10→20:30)
[2022-12-01] MEDS: SILVER SULFADIAZINE 1% CREAM 50 GM TP SCH ×2 (08:10→20:46)
[2022-12-01] MEDS: ACIDOPHILUS/BULGARICUS CHEW TAB GT SCH ×2 (08:10→20:45)
[2022-12-01] MEDS: VITAMINS A AND D OINT 42 GM TUBE TP SCH ×2 (08:10→20:46)
[2022-12-01] MEDS: HYDROGEN PEROXIDE 3% 118 ML BOTTLE TP SCH ×2 (08:50→19:09)
[2022-12-01] MEDS: SERTRALINE HCL 50 MG TABLET GT SCH (12:14)
[2022-12-01] MEDS: ASCORBIC ACID 500 MG TABLET GT SCH (20:45)
[2022-12-01] MEDS: MULTIVIT, IRON, MIN NO. 8, FA TABLET GT SCH (20:45)
[2022-12-01] MEDS: SIMVASTATIN 10 MG TABLET GT SCH (20:46)
[2022-12-01] MEDS: ESTROGENS,CONJU VAGINAL CREAM 42.5 GM TUBE VG SCH (20:46)
[2022-12-02] VITALS (14 sets, daily range): TEMP 97.4–97.6; O2SAT 98–99
[2022-12-02] MEDS: BACLOFEN 10 MG TABLET GT SCH ×4 (00:12→17:30)
[2022-12-02] MEDS: ALBUTEROL SULFATE 2.5 MG/3 ML NEBU NEB SCH ×6 (03:46→23:25)
[2022-12-02] MEDS: IPRATROPIUM BROMIDE 0.5 MG/2.5 ML NEBU NEB SCH ×6 (03:46→23:25)
[2022-12-02] MEDS: ARGININE/GLUTAMINE/CALCIUM BMB 1 EACH POWD.PACK GT SCH ×2 (05:32→17:30)
[2022-12-02] MEDS: OMEGA-3 FATTY ACIDS/FISH OIL CAPSULE GT SCH ×2 (05:32→17:30)
[2022-12-02] MEDS: OMEPRAZOLE 20 MG CAPSULE.DR GT SCH (05:32)
[2022-12-02] MEDS: MIDODRINE HCL 5 MG TABLET GT SCH ×3 (05:33→22:00)
[2022-12-02] MEDS: PROTEIN SUPPLEMENT (PROSTAT) 30 ML LIQUID GT SCH ×3 (05:34→22:00)
[2022-12-02] MEDS: HYDROGEN PEROXIDE 3% 118 ML BOTTLE TP SCH ×2 (07:50→19:10)
[2022-12-02] MEDS: ACETAMINOPHEN 650 MG/20.3 ML LIQUID UDC GT SCH ×2 (09:06→20:30)
[2022-12-02] MEDS: ACIDOPHILUS/BULGARICUS CHEW TAB GT SCH ×2 (09:07→20:40)
[2022-12-02] MEDS: APIXABAN 2.5 MG TABLET GT SCH ×2 (09:07→21:00)
[2022-12-02] MEDS: NITROFURANTOIN MACROCRYSTAL 100 MG CAPSULE GT SCH (09:08)
[2022-12-02] MEDS: SODIUM HYPOCHLORITE 0.125% (QUARTER STRENGTH) 473 ML BOTTLE TP SCH (09:08)
[2022-12-02] MEDS: SILVER SULFADIAZINE 1% CREAM 50 GM TP SCH ×2 (09:08→20:41)
[2022-12-02] MEDS: REMEDY ESSENTIAL ZINC PASTE 113 GM TP SCH ×2 (09:08→20:41)
[2022-12-02] MEDS: GLUCERNA 1.2 1000ML LIQUID GT PRN (09:08)
[2022-12-02] MEDS: VITAMINS A AND D OINT 42 GM TUBE TP SCH ×2 (09:08→20:41)
[2022-12-02] MEDS: SERTRALINE HCL 50 MG TABLET GT SCH (12:43)
[2022-12-02] MEDS: SIMVASTATIN 10 MG TABLET GT SCH (20:41)
[2022-12-02] MEDS: ASCORBIC ACID 500 MG TABLET GT SCH (20:41)
[2022-12-02] MEDS: MULTIVIT, IRON, MIN NO. 8, FA TABLET GT SCH (20:41)
[2022-12-02] MEDS: ESTROGENS,CONJU VAGINAL CREAM 42.5 GM TUBE VG SCH (20:41)
[2022-12-02] MEDS: TEMAZEPAM 7.5 MG CAPSULE GT PRN (21:00)
[2022-12-03] VITALS (13 sets, daily range): TEMP 98.1–98.4; O2SAT 98–99
[2022-12-03] MEDS: BACLOFEN 10 MG TABLET GT SCH ×4 (00:39→18:12)
[2022-12-03] MEDS: IPRATROPIUM BROMIDE 0.5 MG/2.5 ML NEBU NEB SCH ×6 (04:14→23:20)
[2022-12-03] MEDS: ALBUTEROL SULFATE 2.5 MG/3 ML NEBU NEB SCH ×6 (04:14→23:20)
[2022-12-03] MEDS: OMEGA-3 FATTY ACIDS/FISH OIL CAPSULE GT SCH ×2 (05:48→18:12)
[2022-12-03] MEDS: OMEPRAZOLE 20 MG CAPSULE.DR GT SCH (05:48)
[2022-12-03] MEDS: ARGININE/GLUTAMINE/CALCIUM BMB 1 EACH POWD.PACK GT SCH ×2 (05:48→18:12)
[2022-12-03] MEDS: MIDODRINE HCL 5 MG TABLET GT SCH ×3 (05:49→21:27)
[2022-12-03] MEDS: PROTEIN SUPPLEMENT (PROSTAT) 30 ML LIQUID GT SCH ×3 (05:49→21:28)
[2022-12-03] MEDS: HYDROGEN PEROXIDE 3% 118 ML BOTTLE TP SCH ×2 (07:50→21:00)
[2022-12-03] MEDS: ACETAMINOPHEN 650 MG/20.3 ML LIQUID UDC GT SCH ×2 (08:43→21:25)
[2022-12-03] MEDS: APIXABAN 2.5 MG TABLET GT SCH ×2 (08:44→21:00)
[2022-12-03] MEDS: ACIDOPHILUS/BULGARICUS CHEW TAB GT SCH ×2 (08:44→21:25)
[2022-12-03] MEDS: NITROFURANTOIN MACROCRYSTAL 100 MG CAPSULE GT SCH (08:45)
[2022-12-03] MEDS: VITAMINS A AND D OINT 42 GM TUBE TP SCH ×2 (08:46→21:27)
[2022-12-03] MEDS: REMEDY ESSENTIAL ZINC PASTE 113 GM TP SCH ×2 (08:46→21:27)
[2022-12-03] MEDS: SILVER SULFADIAZINE 1% CREAM 50 GM TP SCH ×2 (08:46→21:27)
[2022-12-03] MEDS: SERTRALINE HCL 50 MG TABLET GT SCH (13:00)
[2022-12-03] MEDS: GLUCERNA 1.2 1000ML LIQUID GT PRN (13:15)
[2022-12-03] MEDS: SIMVASTATIN 10 MG TABLET GT SCH (21:26)
[2022-12-03] MEDS: ASCORBIC ACID 500 MG TABLET GT SCH (21:26)
[2022-12-03] MEDS: MULTIVIT, IRON, MIN NO. 8, FA TABLET GT SCH (21:26)
[2022-12-03] MEDS: ESTROGENS,CONJU VAGINAL CREAM 42.5 GM TUBE VG SCH (21:27)
[2022-12-04] VITALS (14 sets, daily range): TEMP 99–99.2; O2SAT 97–99
[2022-12-04] MEDS: IPRATROPIUM BROMIDE 0.5 MG/2.5 ML NEBU NEB SCH ×6 (04:02→23:26)
[2022-12-04] MEDS: ALBUTEROL SULFATE 2.5 MG/3 ML NEBU NEB SCH ×6 (04:02→23:26)
[2022-12-04] MEDS: OMEPRAZOLE 20 MG CAPSULE.DR GT SCH (05:17)
[2022-12-04] MEDS: ARGININE/GLUTAMINE/CALCIUM BMB 1 EACH POWD.PACK GT SCH ×2 (05:17→18:06)
[2022-12-04] MEDS: OMEGA-3 FATTY ACIDS/FISH OIL CAPSULE GT SCH ×2 (05:17→18:06)
[2022-12-04] MEDS: BACLOFEN 10 MG TABLET GT SCH ×4 (05:17→18:07)
[2022-12-04] MEDS: PROTEIN SUPPLEMENT (PROSTAT) 30 ML LIQUID GT SCH ×3 (05:18→22:00)
[2022-12-04] MEDS: MIDODRINE HCL 5 MG TABLET GT SCH ×3 (05:18→22:00)
[2022-12-04] MEDS: ACETAMINOPHEN 650 MG/20.3 ML LIQUID UDC GT SCH ×2 (08:59→20:30)
[2022-12-04] MEDS: SILVER SULFADIAZINE 1% CREAM 50 GM TP SCH ×2 (09:00→21:00)
[2022-12-04] MEDS: APIXABAN 2.5 MG TABLET GT SCH ×2 (09:29→22:00)
[2022-12-04] MEDS: ACIDOPHILUS/BULGARICUS CHEW TAB GT SCH ×2 (09:34→21:00)
[2022-12-04] MEDS: NITROFURANTOIN MACROCRYSTAL 100 MG CAPSULE GT SCH (09:35)
[2022-12-04] MEDS: VITAMINS A AND D OINT 42 GM TUBE TP SCH ×2 (09:36→21:00)
[2022-12-04] MEDS: REMEDY ESSENTIAL ZINC PASTE 113 GM TP SCH ×2 (09:36→21:00)
[2022-12-04] MEDS: HYDROGEN PEROXIDE 3% 118 ML BOTTLE TP SCH ×2 (09:43→19:08)
[2022-12-04] MEDS: SERTRALINE HCL 50 MG TABLET GT SCH (12:20)
[2022-12-04] MEDS: HYDROCODONE/APAP 10-325 MG TABLET GT PRN (14:34)
[2022-12-04] MEDS: GLUCERNA 1.2 1000ML LIQUID GT PRN (18:08)
[2022-12-04] MEDS: ASCORBIC ACID 500 MG TABLET GT SCH (21:00)
[2022-12-04] MEDS: SIMVASTATIN 10 MG TABLET GT SCH (21:00)
[2022-12-04] MEDS: MULTIVIT, IRON, MIN NO. 8, FA TABLET GT SCH (21:00)
[2022-12-04] MEDS: ESTROGENS,CONJU VAGINAL CREAM 42.5 GM TUBE VG SCH (21:00)
[2022-12-05] VITALS (17 sets, daily range): TEMP 97.9–103; O2SAT 99
[2022-12-05] MEDS: BACLOFEN 10 MG TABLET GT SCH ×4 (00:06→18:01)
[2022-12-05] MEDS: IPRATROPIUM BROMIDE 0.5 MG/2.5 ML NEBU NEB SCH ×6 (03:47→23:38)
[2022-12-05] MEDS: ALBUTEROL SULFATE 2.5 MG/3 ML NEBU NEB SCH ×6 (03:47→23:38)
[2022-12-05] MEDS: OMEPRAZOLE 20 MG CAPSULE.DR GT SCH (06:28)
[2022-12-05] MEDS: ARGININE/GLUTAMINE/CALCIUM BMB 1 EACH POWD.PACK GT SCH ×2 (06:28→18:00)
[2022-12-05] MEDS: OMEGA-3 FATTY ACIDS/FISH OIL CAPSULE GT SCH ×2 (06:28→18:00)
[2022-12-05] MEDS: MIDODRINE HCL 5 MG TABLET GT SCH ×3 (06:28→21:11)
[2022-12-05] MEDS: PROTEIN SUPPLEMENT (PROSTAT) 30 ML LIQUID GT SCH ×3 (06:29→21:11)
[2022-12-05 07:37] LABS: CALCIUM 9.3 mg/dL (8.5-10.1); CREATININE 0.9 mg/dL (0.6-1.3); POTASSIUM 4.1 mmol/L (3.5-5.1)
[2022-12-05] MEDS: ACETAMINOPHEN 650 MG/20.3 ML LIQUID UDC GT SCH ×2 (08:34→21:03)
[2022-12-05] MEDS: ACIDOPHILUS/BULGARICUS CHEW TAB GT SCH ×2 (08:35→21:05)
[2022-12-05] MEDS: NITROFURANTOIN MACROCRYSTAL 100 MG CAPSULE GT SCH (08:37)
[2022-12-05] MEDS: SODIUM HYPOCHLORITE 0.125% (QUARTER STRENGTH) 473 ML BOTTLE TP SCH (08:37)
[2022-12-05] MEDS: VITAMINS A AND D OINT 42 GM TUBE TP SCH ×2 (08:38→21:10)
[2022-12-05] MEDS: SILVER SULFADIAZINE 1% CREAM 50 GM TP SCH ×2 (08:38→21:10)
[2022-12-05] MEDS: REMEDY ESSENTIAL ZINC PASTE 113 GM TP SCH ×2 (08:38→21:09)
[2022-12-05] MEDS: APIXABAN 2.5 MG TABLET GT SCH (09:00)
[2022-12-05 09:29] LABS: BASOPHILS # (AUTO) 0.1 K/UL (0.0-0.2); BASOPHILS % (AUTO) 0.4 % (0.0-2.0); EOSINOPHILS # (AUTO) 0.2 K/uL (0.0-0.7); EOSINOPHILS % (AUTO) 1.8 % (0.0-7.0); HEMATOCRIT 34.6 % (31.2-41.9); HEMOGLOBIN 10.8 g/dL (10.9-14.3); LYMPHOCYTES # (AUTO) 2.8 K/uL (0.8-4.8); LYMPHOCYTES % (AUTO) 20.9 % (20.5-51.5); MEAN CORPUSCULAR HEMOGLOBIN 25.7 uug (24.7-32.8); MEAN CORPUSCULAR HGB CONC 31 g/dL (32.3-35.6); MEAN CORPUSCULAR VOLUME 82.2 fL (75.5-95.3); MONOCYTES # (AUTO) 1.5 K/uL (0.1-1.30); MONOCYTES % (AUTO) 10.9 % (0.0-11.0); NEUTROPHILS # (AUTO) 8.8 K/uL (1.8-8.9); PLATELET COUNT (AUTO) 256 K/uL (179-408); RED BLOOD CELL COUNT(AUTO) 4.21 MIL/uL (3.63-4.92); RED CELL DISTRIBUTION WIDTH 19.7 % (12.3-17.7); WHITE BLOOD COUNT (AUTO) 13.4 K/uL (3.8-11.8)
[2022-12-05] MEDS: HYDROGEN PEROXIDE 3% 118 ML BOTTLE TP SCH ×2 (09:31→21:00)
[2022-12-05 09:43] LABS: DIFFERENTIAL COMMENT 1
[2022-12-05 10:03] LABS: ALBUMIN 2.7 g/dL (3.4-5.0); BILIRUBIN,TOTAL 0.5 mg/dL (0.2-1.0); CALCIUM 9.3 mg/dL (8.5-10.1); POTASSIUM 3.8 mmol/L (3.5-5.1); TOTAL PROTEIN, SERUM 8.6 g/dL (6.4-8.2)
[2022-12-05] MEDS: CEFEPIME HCL 1 G in IV DEXTROSE 5% 50 ML IV SCH ×2 (10:22→22:00)
[2022-12-05] MEDS: VANCOMYCIN IV 750 MG in IV DEXTROSE 5% 250 ML IV SCH ×2 (12:24→23:16)
[2022-12-05] MEDS: SERTRALINE HCL 50 MG TABLET GT SCH (12:26)
[2022-12-05 15:02] LABS: *BILIRUBIN,URIN NEGATIVE (NEGATIVE); *BLOOD, URINE 3+ (NEGATIVE); *CLARITY,URINE SLIGHTLY CLOUDY (CLEAR); *COLOR,URINE Other (YELLOW); *KETONES,URINE NEGATIVE (NEGATIVE); *PROTEIN,URINE 3+ (NEGATIVE); *UROBILINOGEN,URINE 0.2 E.U./dl (NORMAL); LEUKOCYTE ESTERASE ,URINE 3+ (NEGATIVE); NITRITE, URINE NEGATIVE (NEGATIVE); PH,URINE 6.5 (5.0-8.0); UGLUCOSE NEGATIVE (NEGATIVE)
[2022-12-05] MEDS: MULTIVIT, IRON, MIN NO. 8, FA TABLET GT SCH (21:07)
[2022-12-05] MEDS: ASCORBIC ACID 500 MG TABLET GT SCH (21:08)
[2022-12-05] MEDS: SIMVASTATIN 10 MG TABLET GT SCH (21:09)
[2022-12-05] MEDS: ESTROGENS,CONJU VAGINAL CREAM 42.5 GM TUBE VG SCH (21:10)
[2022-12-05] MEDS: GLUCERNA 1.2 1000ML LIQUID GT PRN (21:28)
[2022-12-05] MEDS: TEMAZEPAM 7.5 MG CAPSULE GT PRN (23:00)
[2022-12-06] VITALS (15 sets, daily range): TEMP 97.8–99.4; O2SAT 98–99
[2022-12-06] MEDS: BACLOFEN 10 MG TABLET GT SCH ×4 (00:26→17:03)
[2022-12-06] MEDS: IPRATROPIUM BROMIDE 0.5 MG/2.5 ML NEBU NEB SCH ×6 (03:40→23:40)
[2022-12-06] MEDS: ALBUTEROL SULFATE 2.5 MG/3 ML NEBU NEB SCH ×6 (03:40→23:40)
[2022-12-06] MEDS: OMEGA-3 FATTY ACIDS/FISH OIL CAPSULE GT SCH ×2 (05:39→17:03)
[2022-12-06] MEDS: OMEPRAZOLE 20 MG CAPSULE.DR GT SCH (05:39)
[2022-12-06] MEDS: ARGININE/GLUTAMINE/CALCIUM BMB 1 EACH POWD.PACK GT SCH ×2 (05:39→17:03)
[2022-12-06] MEDS: MIDODRINE HCL 5 MG TABLET GT SCH ×3 (05:40→21:38)
[2022-12-06] MEDS: PROTEIN SUPPLEMENT (PROSTAT) 30 ML LIQUID GT SCH ×3 (05:40→21:39)
[2022-12-06] MEDS: HYDROGEN PEROXIDE 3% 118 ML BOTTLE TP SCH ×2 (07:50→21:33)
[2022-12-06] MEDS: ACIDOPHILUS/BULGARICUS CHEW TAB GT SCH ×2 (08:47→21:38)
[2022-12-06] MEDS: ACETAMINOPHEN 650 MG/20.3 ML LIQUID UDC GT SCH ×2 (08:47→20:30)
[2022-12-06] MEDS: NITROFURANTOIN MACROCRYSTAL 100 MG CAPSULE GT SCH (08:48)
[2022-12-06] MEDS: REMEDY ESSENTIAL ZINC PASTE 113 GM TP SCH ×2 (08:48→21:38)
[2022-12-06] MEDS: VITAMINS A AND D OINT 42 GM TUBE TP SCH ×2 (08:49→21:38)
[2022-12-06] MEDS: SILVER SULFADIAZINE 1% CREAM 50 GM TP SCH ×2 (08:49→21:38)
[2022-12-06] MEDS: CEFEPIME HCL 1 G in IV DEXTROSE 5% 50 ML IV SCH ×2 (10:39→21:48)
[2022-12-06] MEDS: HYDROCODONE/APAP 10-325 MG TABLET GT PRN (10:59)
[2022-12-06] MEDS: VANCOMYCIN IV 750 MG in IV DEXTROSE 5% 250 ML IV SCH ×2 (11:30→23:30)
[2022-12-06] MEDS: SERTRALINE HCL 50 MG TABLET GT SCH (12:52)
[2022-12-06] MEDS: APIXABAN 2.5 MG TABLET GT SCH (21:37)
[2022-12-06] MEDS: FOSFOMYCIN TROMETHAMINE 3 GM PACKET GT SCH (21:38)
[2022-12-06] MEDS: ASCORBIC ACID 500 MG TABLET GT SCH (21:38)
[2022-12-06] MEDS: MULTIVIT, IRON, MIN NO. 8, FA TABLET GT SCH (21:38)
[2022-12-06] MEDS: SIMVASTATIN 10 MG TABLET GT SCH (21:38)
[2022-12-06] MEDS: ESTROGENS,CONJU VAGINAL CREAM 42.5 GM TUBE VG SCH (21:38)
[2022-12-06] MEDS: TEMAZEPAM 7.5 MG CAPSULE GT PRN (21:39)
[2022-12-06] MEDS: GLUCERNA 1.2 1000ML LIQUID GT PRN (21:42)
[2022-12-07] VITALS (14 sets, daily range): TEMP 97.8–98.7; O2SAT 97–99
[2022-12-07] MEDS: ALBUTEROL SULFATE 2.5 MG/3 ML NEBU NEB SCH ×6 (03:59→23:52)
[2022-12-07] MEDS: IPRATROPIUM BROMIDE 0.5 MG/2.5 ML NEBU NEB SCH ×6 (03:59→23:52)
[2022-12-07] MEDS: MIDODRINE HCL 5 MG TABLET GT SCH ×3 (05:21→21:02)
[2022-12-07] MEDS: ARGININE/GLUTAMINE/CALCIUM BMB 1 EACH POWD.PACK GT SCH ×2 (05:21→17:21)
[2022-12-07] MEDS: OMEPRAZOLE 20 MG CAPSULE.DR GT SCH (05:21)
[2022-12-07] MEDS: PROTEIN SUPPLEMENT (PROSTAT) 30 ML LIQUID GT SCH ×3 (05:21→21:02)
[2022-12-07] MEDS: OMEGA-3 FATTY ACIDS/FISH OIL CAPSULE GT SCH ×2 (05:21→17:21)
[2022-12-07] MEDS: BACLOFEN 10 MG TABLET GT SCH ×4 (05:21→17:21)
[2022-12-07] MEDS: ACETAMINOPHEN 650 MG/20.3 ML LIQUID UDC GT SCH ×2 (08:39→20:41)
[2022-12-07] MEDS: ACIDOPHILUS/BULGARICUS CHEW TAB GT SCH ×2 (08:41→20:56)
[2022-12-07] MEDS: SODIUM HYPOCHLORITE 0.125% (QUARTER STRENGTH) 473 ML BOTTLE TP SCH (08:43)
[2022-12-07] MEDS: VITAMINS A AND D OINT 42 GM TUBE TP SCH ×2 (08:43→20:57)
[2022-12-07] MEDS: REMEDY ESSENTIAL ZINC PASTE 113 GM TP SCH ×2 (08:43→20:57)
[2022-12-07] MEDS: SILVER SULFADIAZINE 1% CREAM 50 GM TP SCH ×2 (08:43→20:57)
[2022-12-07] MEDS: NITROFURANTOIN MACROCRYSTAL 100 MG CAPSULE GT SCH (08:43)
[2022-12-07] MEDS: HYDROGEN PEROXIDE 3% 118 ML BOTTLE TP SCH ×2 (09:00→20:31)
[2022-12-07] MEDS: APIXABAN 2.5 MG TABLET GT SCH ×2 (09:00→20:42)
[2022-12-07] MEDS: CEFEPIME HCL 1 G in IV DEXTROSE 5% 50 ML IV SCH ×2 (10:00→22:54)
[2022-12-07 11:22] LABS: CREATININE 0.8 mg/dL (0.6-1.3); VANCOMYCIN,TROUGH 19.6 ug/mL (12.0-20.0)
[2022-12-07] MEDS: VANCOMYCIN IV 750 MG in IV DEXTROSE 5% 250 ML IV SCH ×2 (11:30→22:55)
[2022-12-07] MEDS: SERTRALINE HCL 50 MG TABLET GT SCH (12:49)
[2022-12-07] MEDS: ESTROGENS,CONJU VAGINAL CREAM 42.5 GM TUBE VG SCH (20:57)
[2022-12-07] MEDS: MULTIVIT, IRON, MIN NO. 8, FA TABLET GT SCH (20:57)
[2022-12-07] MEDS: SIMVASTATIN 10 MG TABLET GT SCH (20:57)
[2022-12-07] MEDS: ASCORBIC ACID 500 MG TABLET GT SCH (20:57)
[2022-12-07] MEDS: TEMAZEPAM 7.5 MG CAPSULE GT PRN (21:04)
[2022-12-08] VITALS (16 sets, daily range): TEMP 98–98.3; O2SAT 97–99
[2022-12-08] MEDS: IPRATROPIUM BROMIDE 0.5 MG/2.5 ML NEBU NEB SCH ×5 (04:17→19:04)
[2022-12-08] MEDS: ALBUTEROL SULFATE 2.5 MG/3 ML NEBU NEB SCH ×5 (04:17→19:04)
[2022-12-08] MEDS: GLUCERNA 1.2 1000ML LIQUID GT PRN (04:30)
[2022-12-08] MEDS: OMEGA-3 FATTY ACIDS/FISH OIL CAPSULE GT SCH ×2 (05:58→18:16)
[2022-12-08] MEDS: PROTEIN SUPPLEMENT (PROSTAT) 30 ML LIQUID GT SCH ×3 (05:58→21:44)
[2022-12-08] MEDS: BACLOFEN 10 MG TABLET GT SCH ×4 (05:58→18:16)
[2022-12-08] MEDS: ARGININE/GLUTAMINE/CALCIUM BMB 1 EACH POWD.PACK GT SCH ×2 (05:58→18:16)
[2022-12-08] MEDS: MIDODRINE HCL 5 MG TABLET GT SCH ×3 (05:58→21:44)
[2022-12-08] MEDS: OMEPRAZOLE 20 MG CAPSULE.DR GT SCH (05:58)
[2022-12-08] MEDS: ACETAMINOPHEN 650 MG/20.3 ML LIQUID UDC GT SCH ×2 (08:30→20:30)
[2022-12-08] MEDS: HYDROGEN PEROXIDE 3% 118 ML BOTTLE TP SCH ×2 (09:00→21:27)
[2022-12-08] MEDS: NITROFURANTOIN MACROCRYSTAL 100 MG CAPSULE GT SCH (09:00)
[2022-12-08] MEDS: REMEDY ESSENTIAL ZINC PASTE 113 GM TP SCH ×2 (09:00→21:43)
[2022-12-08] MEDS: SILVER SULFADIAZINE 1% CREAM 50 GM TP SCH ×2 (09:00→21:43)
[2022-12-08] MEDS: VITAMINS A AND D OINT 42 GM TUBE TP SCH ×2 (09:00→21:43)
[2022-12-08] MEDS: ACIDOPHILUS/BULGARICUS CHEW TAB GT SCH ×2 (09:00→21:43)
[2022-12-08] MEDS: APIXABAN 2.5 MG TABLET GT SCH ×2 (09:00→21:42)
[2022-12-08] MEDS: CEFEPIME HCL 1 G in IV DEXTROSE 5% 50 ML IV SCH ×2 (09:54→22:24)
[2022-12-08] MEDS: VANCOMYCIN IV 750 MG in IV DEXTROSE 5% 250 ML IV SCH ×2 (12:12→23:30)
[2022-12-08] MEDS: SERTRALINE HCL 50 MG TABLET GT SCH (12:35)
[2022-12-08] MEDS: SIMVASTATIN 10 MG TABLET GT SCH (21:43)
[2022-12-08] MEDS: ASCORBIC ACID 500 MG TABLET GT SCH (21:43)
[2022-12-08] MEDS: MULTIVIT, IRON, MIN NO. 8, FA TABLET GT SCH (21:43)
[2022-12-08] MEDS: ESTROGENS,CONJU VAGINAL CREAM 42.5 GM TUBE VG SCH (21:43)
[2022-12-08] MEDS: TEMAZEPAM 7.5 MG CAPSULE GT PRN (21:45)
[2022-12-08] MEDS: LOPERAMIDE HCL 1 MG/7.5 ML LIQUID GT PRN (22:14)
[2022-12-09] VITALS (14 sets, daily range): TEMP 97.6; O2SAT 97–99
[2022-12-09] MEDS: IPRATROPIUM BROMIDE 0.5 MG/2.5 ML NEBU NEB SCH ×7 (00:06→23:09)
[2022-12-09] MEDS: ALBUTEROL SULFATE 2.5 MG/3 ML NEBU NEB SCH ×7 (00:07→23:09)
[2022-12-09] MEDS: MIDODRINE HCL 5 MG TABLET GT SCH ×3 (05:38→22:30)
[2022-12-09] MEDS: PROTEIN SUPPLEMENT (PROSTAT) 30 ML LIQUID GT SCH ×3 (05:38→22:00)
[2022-12-09] MEDS: OMEPRAZOLE 20 MG CAPSULE.DR GT SCH (05:38)
[2022-12-09] MEDS: ARGININE/GLUTAMINE/CALCIUM BMB 1 EACH POWD.PACK GT SCH ×2 (05:38→17:33)
[2022-12-09] MEDS: BACLOFEN 10 MG TABLET GT SCH ×4 (05:38→17:33)
[2022-12-09] MEDS: OMEGA-3 FATTY ACIDS/FISH OIL CAPSULE GT SCH ×2 (05:38→17:33)
[2022-12-09] MEDS: GLUCERNA 1.2 1000ML LIQUID GT PRN (05:39)
[2022-12-09] MEDS: HYDROGEN PEROXIDE 3% 118 ML BOTTLE TP SCH ×2 (08:50→21:57)
[2022-12-09] MEDS: ACETAMINOPHEN 650 MG/20.3 ML LIQUID UDC GT SCH ×2 (09:00→20:30)
[2022-12-09] MEDS: APIXABAN 2.5 MG TABLET GT SCH ×2 (09:00→21:00)
[2022-12-09] MEDS: ACIDOPHILUS/BULGARICUS CHEW TAB GT SCH ×2 (09:00→21:00)
[2022-12-09] MEDS: NITROFURANTOIN MACROCRYSTAL 100 MG CAPSULE GT SCH (09:00)
[2022-12-09] MEDS: REMEDY ESSENTIAL ZINC PASTE 113 GM TP SCH ×2 (09:01→21:00)
[2022-12-09] MEDS: SILVER SULFADIAZINE 1% CREAM 50 GM TP SCH ×2 (09:01→21:00)
[2022-12-09] MEDS: VITAMINS A AND D OINT 42 GM TUBE TP SCH ×2 (09:01→21:00)
[2022-12-09] MEDS: SODIUM HYPOCHLORITE 0.125% (QUARTER STRENGTH) 473 ML BOTTLE TP SCH (09:01)
[2022-12-09] MEDS: CEFEPIME HCL 1 G in IV DEXTROSE 5% 50 ML IV SCH ×2 (10:00→22:00)
[2022-12-09 11:36] LABS: BASOPHILS # (AUTO) 0.1 K/UL (0.0-0.2); BASOPHILS % (AUTO) 0.9 % (0.0-2.0); EOSINOPHILS # (AUTO) 0.4 K/uL (0.0-0.7); HEMATOCRIT 29.5 % (31.2-41.9); HEMOGLOBIN 9.1 g/dL (10.9-14.3); LYMPHOCYTES # (AUTO) 1.6 K/uL (0.8-4.8); LYMPHOCYTES % (AUTO) 24.6 % (20.5-51.5); MEAN CORPUSCULAR HEMOGLOBIN 25.1 uug (24.7-32.8); MEAN CORPUSCULAR HGB CONC 31 g/dL (32.3-35.6); MEAN CORPUSCULAR VOLUME 81.6 fL (75.5-95.3); MONOCYTES # (AUTO) 0.7 K/uL (0.1-1.30); MONOCYTES % (AUTO) 9.9 % (0.0-11.0); NEUTROPHILS # (AUTO) 3.9 K/uL (1.8-8.9); NEUTROPHILS % (AUTO) 58.6 % (38.5-71.5); PLATELET COUNT (AUTO) 183 K/uL (179-408); RED BLOOD CELL COUNT(AUTO) 3.62 MIL/uL (3.63-4.92); RED CELL DISTRIBUTION WIDTH 19.6 % (12.3-17.7); WHITE BLOOD COUNT (AUTO) 6.7 K/uL (3.8-11.8)
[2022-12-09 11:41] LABS: DIFFERENTIAL COMMENT 1
[2022-12-09] MEDS: SERTRALINE HCL 50 MG TABLET GT SCH (12:00)
[2022-12-09 14:35] LABS: *BILIRUBIN,URIN NEGATIVE (NEGATIVE); *BLOOD, URINE 3+ (NEGATIVE); *CLARITY,URINE CLOUDY (CLEAR); *COLOR,URINE Orange (YELLOW); *KETONES,URINE NEGATIVE (NEGATIVE); *UROBILINOGEN,URINE 0.2 E.U./dl (NORMAL); LEUKOCYTE ESTERASE ,URINE 3+ (NEGATIVE); NITRITE, URINE NEGATIVE (NEGATIVE); PH,URINE 6.5 (5.0-8.0); UGLUCOSE NEGATIVE (NEGATIVE)
[2022-12-09 14:37] LABS: *PROTEIN,URINE 3+ (NEGATIVE)
[2022-12-09 14:49] LABS: BACTERIA,URINE MODERATE /HPF (NONE SEEN); RBC,URINE TNTC /HPF (0-3); WBC,URINE 80-100 /HPF (0-3)
[2022-12-09 14:50] LABS: SQUAMOUS EPITHELIAL CELL,UR FEW /HPF (NONE SEEN)
[2022-12-09] MEDS: SIMVASTATIN 10 MG TABLET GT SCH (21:00)
[2022-12-09] MEDS: ESTROGENS,CONJU VAGINAL CREAM 42.5 GM TUBE VG SCH (21:00)
[2022-12-09] MEDS: MULTIVIT, IRON, MIN NO. 8, FA TABLET GT SCH (21:00)
[2022-12-09] MEDS: ASCORBIC ACID 500 MG TABLET GT SCH (21:00)
[2022-12-10] VITALS (14 sets, daily range): TEMP 98–98.8; O2SAT 96–99
[2022-12-10] MEDS: ALBUTEROL SULFATE 2.5 MG/3 ML NEBU NEB SCH ×6 (03:21→23:29)
[2022-12-10] MEDS: IPRATROPIUM BROMIDE 0.5 MG/2.5 ML NEBU NEB SCH ×6 (03:21→23:29)
[2022-12-10] MEDS: ARGININE/GLUTAMINE/CALCIUM BMB 1 EACH POWD.PACK GT SCH ×2 (06:16→17:53)
[2022-12-10] MEDS: OMEPRAZOLE 20 MG CAPSULE.DR GT SCH (06:16)
[2022-12-10] MEDS: OMEGA-3 FATTY ACIDS/FISH OIL CAPSULE GT SCH ×2 (06:16→17:53)
[2022-12-10] MEDS: BACLOFEN 10 MG TABLET GT SCH ×4 (06:16→17:54)
[2022-12-10] MEDS: PROTEIN SUPPLEMENT (PROSTAT) 30 ML LIQUID GT SCH ×3 (06:17→21:00)
[2022-12-10] MEDS: MIDODRINE HCL 5 MG TABLET GT SCH ×3 (06:17→21:00)
[2022-12-10] MEDS: HYDROGEN PEROXIDE 3% 118 ML BOTTLE TP SCH ×2 (07:21→19:31)
[2022-12-10] MEDS: ACETAMINOPHEN 650 MG/20.3 ML LIQUID UDC GT SCH ×2 (08:30→20:44)
[2022-12-10 08:51] LABS: BASOPHILS # (AUTO) 0.1 K/UL (0.0-0.2); BASOPHILS % (AUTO) 1.4 % (0.0-2.0); EOSINOPHILS # (AUTO) 0.4 K/uL (0.0-0.7); EOSINOPHILS % (AUTO) 4.7 % (0.0-7.0); HEMATOCRIT 30.1 % (31.2-41.9); HEMOGLOBIN 9.3 g/dL (10.9-14.3); LYMPHOCYTES # (AUTO) 1.5 K/uL (0.8-4.8); MEAN CORPUSCULAR HEMOGLOBIN 25.1 uug (24.7-32.8); MEAN CORPUSCULAR HGB CONC 31 g/dL (32.3-35.6); MEAN CORPUSCULAR VOLUME 81.4 fL (75.5-95.3); MONOCYTES # (AUTO) 0.7 K/uL (0.1-1.30); MONOCYTES % (AUTO) 9.5 % (0.0-11.0); NEUTROPHILS # (AUTO) 4.9 K/uL (1.8-8.9); NEUTROPHILS % (AUTO) 64.4 % (38.5-71.5); PLATELET COUNT (AUTO) 194 K/uL (179-408); RED CELL DISTRIBUTION WIDTH 19.7 % (12.3-17.7); WHITE BLOOD COUNT (AUTO) 7.6 K/uL (3.8-11.8)
[2022-12-10 09:04] LABS: DIFFERENTIAL COMMENT 1
[2022-12-10 09:05] LABS: CALCIUM 8.8 mg/dL (8.5-10.1); CREATININE 0.7 mg/dL (0.6-1.3); POTASSIUM 3.7 mmol/L (3.5-5.1)
[2022-12-10] MEDS: NITROFURANTOIN MACROCRYSTAL 100 MG CAPSULE GT SCH (09:34)
[2022-12-10] MEDS: REMEDY ESSENTIAL ZINC PASTE 113 GM TP SCH ×2 (09:34→20:44)
[2022-12-10] MEDS: ACIDOPHILUS/BULGARICUS CHEW TAB GT SCH ×2 (09:34→20:44)
[2022-12-10] MEDS: SILVER SULFADIAZINE 1% CREAM 50 GM TP SCH ×2 (09:35→20:44)
[2022-12-10] MEDS: VITAMINS A AND D OINT 42 GM TUBE TP SCH ×2 (09:35→20:45)
[2022-12-10] MEDS: APIXABAN 2.5 MG TABLET GT SCH ×2 (09:37→21:00)
[2022-12-10] MEDS: CEFEPIME HCL 1 G in IV DEXTROSE 5% 50 ML IV SCH ×2 (10:00→22:00)
[2022-12-10] MEDS: SERTRALINE HCL 50 MG TABLET GT SCH (12:41)
[2022-12-10] MEDS: MULTIVIT, IRON, MIN NO. 8, FA TABLET GT SCH (20:44)
[2022-12-10] MEDS: ASCORBIC ACID 500 MG TABLET GT SCH (20:44)
[2022-12-10] MEDS: ESTROGENS,CONJU VAGINAL CREAM 42.5 GM TUBE VG SCH (20:45)
[2022-12-10] MEDS: SIMVASTATIN 10 MG TABLET GT SCH (20:49)
[2022-12-11] VITALS (14 sets, daily range): TEMP 97.8–98.3; O2SAT 96–99
[2022-12-11] MEDS: BACLOFEN 10 MG TABLET GT SCH ×5 (00:45→23:02)
[2022-12-11] MEDS: IPRATROPIUM BROMIDE 0.5 MG/2.5 ML NEBU NEB SCH ×6 (03:40→23:06)
[2022-12-11] MEDS: ALBUTEROL SULFATE 2.5 MG/3 ML NEBU NEB SCH ×6 (03:40→23:06)
[2022-12-11] MEDS: OMEGA-3 FATTY ACIDS/FISH OIL CAPSULE GT SCH ×2 (05:12→17:43)
[2022-12-11] MEDS: MIDODRINE HCL 5 MG TABLET GT SCH ×3 (05:13→21:11)
[2022-12-11] MEDS: ARGININE/GLUTAMINE/CALCIUM BMB 1 EACH POWD.PACK GT SCH ×2 (05:13→17:43)
[2022-12-11] MEDS: OMEPRAZOLE 20 MG CAPSULE.DR GT SCH (05:13)
[2022-12-11] MEDS: PROTEIN SUPPLEMENT (PROSTAT) 30 ML LIQUID GT SCH ×3 (05:13→21:11)
[2022-12-11] MEDS: HYDROCODONE/APAP 10-325 MG TABLET GT PRN (05:19)
[2022-12-11] MEDS: ACETAMINOPHEN 650 MG/20.3 ML LIQUID UDC GT SCH ×2 (08:13→21:08)
[2022-12-11] MEDS: APIXABAN 2.5 MG TABLET GT SCH ×2 (08:15→21:00)
[2022-12-11] MEDS: ACIDOPHILUS/BULGARICUS CHEW TAB GT SCH ×2 (08:15→21:08)
[2022-12-11] MEDS: NITROFURANTOIN MACROCRYSTAL 100 MG CAPSULE GT SCH (08:16)
[2022-12-11] MEDS: REMEDY ESSENTIAL ZINC PASTE 113 GM TP SCH ×2 (08:16→21:10)
[2022-12-11] MEDS: SILVER SULFADIAZINE 1% CREAM 50 GM TP SCH ×2 (08:17→21:10)
[2022-12-11] MEDS: VITAMINS A AND D OINT 42 GM TUBE TP SCH ×2 (08:17→21:10)
[2022-12-11] MEDS: HYDROGEN PEROXIDE 3% 118 ML BOTTLE TP SCH ×2 (09:00→18:59)
[2022-12-11] MEDS: CEFEPIME HCL 1 G in IV DEXTROSE 5% 50 ML IV SCH ×2 (10:00→21:42)
[2022-12-11] MEDS: SERTRALINE HCL 50 MG TABLET GT SCH (12:18)
[2022-12-11] MEDS: SIMVASTATIN 10 MG TABLET GT SCH (21:09)
[2022-12-11] MEDS: ASCORBIC ACID 500 MG TABLET GT SCH (21:09)
[2022-12-11] MEDS: MULTIVIT, IRON, MIN NO. 8, FA TABLET GT SCH (21:09)
[2022-12-11] MEDS: ESTROGENS,CONJU VAGINAL CREAM 42.5 GM TUBE VG SCH (21:10)
[2022-12-11] MEDS: TEMAZEPAM 7.5 MG CAPSULE GT PRN (21:42)
[2022-12-12] VITALS (14 sets, daily range): TEMP 98.1–98.4; O2SAT 96–99
[2022-12-12] MEDS: IPRATROPIUM BROMIDE 0.5 MG/2.5 ML NEBU NEB SCH ×6 (03:01→23:27)
[2022-12-12] MEDS: ALBUTEROL SULFATE 2.5 MG/3 ML NEBU NEB SCH ×6 (03:01→23:27)
[2022-12-12] MEDS: ARGININE/GLUTAMINE/CALCIUM BMB 1 EACH POWD.PACK GT SCH ×2 (05:08→17:44)
[2022-12-12] MEDS: OMEPRAZOLE 20 MG CAPSULE.DR GT SCH (05:08)
[2022-12-12] MEDS: BACLOFEN 10 MG TABLET GT SCH ×3 (05:08→17:44)
[2022-12-12] MEDS: OMEGA-3 FATTY ACIDS/FISH OIL CAPSULE GT SCH ×2 (05:08→17:44)
[2022-12-12] MEDS: MIDODRINE HCL 5 MG TABLET GT SCH ×3 (05:09→21:08)
[2022-12-12] MEDS: GLUCERNA 1.2 1000ML LIQUID GT PRN (05:09)
[2022-12-12] MEDS: PROTEIN SUPPLEMENT (PROSTAT) 30 ML LIQUID GT SCH ×3 (05:20→21:08)
[2022-12-12] MEDS: ACETAMINOPHEN 650 MG/20.3 ML LIQUID UDC GT SCH ×2 (08:31→20:38)
[2022-12-12] MEDS: SILVER SULFADIAZINE 1% CREAM 50 GM TP SCH ×2 (08:32→20:43)
[2022-12-12] MEDS: VITAMINS A AND D OINT 42 GM TUBE TP SCH ×2 (08:32→20:43)
[2022-12-12] MEDS: SODIUM HYPOCHLORITE 0.125% (QUARTER STRENGTH) 473 ML BOTTLE TP SCH (08:32)
[2022-12-12] MEDS: NITROFURANTOIN MACROCRYSTAL 100 MG CAPSULE GT SCH (08:32)
[2022-12-12] MEDS: REMEDY ESSENTIAL ZINC PASTE 113 GM TP SCH ×2 (08:32→20:43)
[2022-12-12] MEDS: ACIDOPHILUS/BULGARICUS CHEW TAB GT SCH ×2 (08:32→20:41)
[2022-12-12] MEDS: APIXABAN 2.5 MG TABLET GT SCH ×2 (08:32→20:41)
[2022-12-12] MEDS: HYDROGEN PEROXIDE 3% 118 ML BOTTLE TP SCH ×2 (09:33→19:29)
[2022-12-12] MEDS: CEFEPIME HCL 1 G in IV DEXTROSE 5% 50 ML IV SCH ×2 (10:17→21:41)
[2022-12-12] MEDS: SERTRALINE HCL 50 MG TABLET GT SCH (12:50)
[2022-12-12] MEDS: SIMVASTATIN 10 MG TABLET GT SCH (20:42)
[2022-12-12] MEDS: ASCORBIC ACID 500 MG TABLET GT SCH (20:42)
[2022-12-12] MEDS: MULTIVIT, IRON, MIN NO. 8, FA TABLET GT SCH (20:42)
[2022-12-12] MEDS: ESTROGENS,CONJU VAGINAL CREAM 42.5 GM TUBE VG SCH (20:43)
[2022-12-12] MEDS: TEMAZEPAM 7.5 MG CAPSULE GT PRN (21:09)
[2022-12-13] VITALS (13 sets, daily range): TEMP 98.7–98.9; O2SAT 96–99
[2022-12-13] MEDS: IPRATROPIUM BROMIDE 0.5 MG/2.5 ML NEBU NEB SCH ×6 (03:44→23:01)
[2022-12-13] MEDS: ALBUTEROL SULFATE 2.5 MG/3 ML NEBU NEB SCH ×6 (03:44→23:01)
[2022-12-13] MEDS: ARGININE/GLUTAMINE/CALCIUM BMB 1 EACH POWD.PACK GT SCH ×2 (05:36→17:05)
[2022-12-13] MEDS: BACLOFEN 10 MG TABLET GT SCH ×4 (05:36→17:05)
[2022-12-13] MEDS: OMEGA-3 FATTY ACIDS/FISH OIL CAPSULE GT SCH ×2 (05:36→17:05)
[2022-12-13] MEDS: OMEPRAZOLE 20 MG CAPSULE.DR GT SCH (05:36)
[2022-12-13] MEDS: PROTEIN SUPPLEMENT (PROSTAT) 30 ML LIQUID GT SCH ×3 (05:37→21:49)
[2022-12-13] MEDS: MIDODRINE HCL 5 MG TABLET GT SCH ×3 (05:37→21:48)
[2022-12-13] MEDS: HYDROGEN PEROXIDE 3% 118 ML BOTTLE TP SCH ×2 (07:37→19:09)
[2022-12-13] MEDS: ACETAMINOPHEN 650 MG/20.3 ML LIQUID UDC GT SCH ×2 (09:30→20:30)
[2022-12-13] MEDS: NITROFURANTOIN MACROCRYSTAL 100 MG CAPSULE GT SCH (09:36)
[2022-12-13] MEDS: REMEDY ESSENTIAL ZINC PASTE 113 GM TP SCH ×2 (09:36→21:47)
[2022-12-13] MEDS: ACIDOPHILUS/BULGARICUS CHEW TAB GT SCH ×2 (09:36→21:47)
[2022-12-13] MEDS: APIXABAN 2.5 MG TABLET GT SCH ×2 (09:41→21:29)
[2022-12-13] MEDS: VITAMINS A AND D OINT 42 GM TUBE TP SCH ×2 (09:47→21:48)
[2022-12-13] MEDS: SILVER SULFADIAZINE 1% CREAM 50 GM TP SCH ×2 (09:47→21:47)
[2022-12-13] MEDS: CEFEPIME HCL 1 G in IV DEXTROSE 5% 50 ML IV SCH ×2 (10:44→22:08)
[2022-12-13] MEDS: SERTRALINE HCL 50 MG TABLET GT SCH (12:22)
[2022-12-13] MEDS: GLUCERNA 1.2 1000ML LIQUID GT PRN (17:00)
[2022-12-13] MEDS: HYDROCODONE/APAP 10-325 MG TABLET GT PRN (17:05)
[2022-12-13] MEDS: FOSFOMYCIN TROMETHAMINE 3 GM PACKET GT SCH (21:00)
[2022-12-13] MEDS: SIMVASTATIN 10 MG TABLET GT SCH (21:47)
[2022-12-13] MEDS: MULTIVIT, IRON, MIN NO. 8, FA TABLET GT SCH (21:47)
[2022-12-13] MEDS: ASCORBIC ACID 500 MG TABLET GT SCH (21:47)
[2022-12-13] MEDS: ESTROGENS,CONJU VAGINAL CREAM 42.5 GM TUBE VG SCH (21:48)
[2022-12-14] VITALS (14 sets, daily range): TEMP 98.8–99; O2SAT 96–99
[2022-12-14] MEDS: ALBUTEROL SULFATE 2.5 MG/3 ML NEBU NEB SCH ×6 (03:01→23:35)
[2022-12-14] MEDS: IPRATROPIUM BROMIDE 0.5 MG/2.5 ML NEBU NEB SCH ×6 (03:01→23:35)
[2022-12-14] MEDS: OMEGA-3 FATTY ACIDS/FISH OIL CAPSULE GT SCH ×2 (05:43→17:24)
[2022-12-14] MEDS: OMEPRAZOLE 20 MG CAPSULE.DR GT SCH (05:43)
[2022-12-14] MEDS: ARGININE/GLUTAMINE/CALCIUM BMB 1 EACH POWD.PACK GT SCH ×2 (05:43→17:24)
[2022-12-14] MEDS: BACLOFEN 10 MG TABLET GT SCH ×4 (05:43→17:24)
[2022-12-14] MEDS: PROTEIN SUPPLEMENT (PROSTAT) 30 ML LIQUID GT SCH ×3 (05:44→21:28)
[2022-12-14] MEDS: MIDODRINE HCL 5 MG TABLET GT SCH ×3 (05:44→21:28)
[2022-12-14] MEDS: ACETAMINOPHEN 650 MG/20.3 ML LIQUID UDC GT SCH ×2 (08:30→21:24)
[2022-12-14] MEDS: VITAMINS A AND D OINT 42 GM TUBE TP SCH ×2 (09:00→21:28)
[2022-12-14] MEDS: SILVER SULFADIAZINE 1% CREAM 50 GM TP SCH ×2 (09:00→21:28)
[2022-12-14] MEDS: NITROFURANTOIN MACROCRYSTAL 100 MG CAPSULE GT SCH (09:00)
[2022-12-14] MEDS: SODIUM HYPOCHLORITE 0.125% (QUARTER STRENGTH) 473 ML BOTTLE TP SCH (09:00)
[2022-12-14] MEDS: REMEDY ESSENTIAL ZINC PASTE 113 GM TP SCH ×2 (09:00→21:28)
[2022-12-14] MEDS: ACIDOPHILUS/BULGARICUS CHEW TAB GT SCH ×2 (09:00→21:27)
[2022-12-14] MEDS: APIXABAN 2.5 MG TABLET GT SCH ×2 (09:00→21:27)
[2022-12-14] MEDS: HYDROGEN PEROXIDE 3% 118 ML BOTTLE TP SCH ×2 (10:00→21:55)
[2022-12-14] MEDS: CEFEPIME HCL 1 G in IV DEXTROSE 5% 50 ML IV SCH ×2 (10:00→21:24)
[2022-12-14] MEDS: SERTRALINE HCL 50 MG TABLET GT SCH (12:59)
[2022-12-14] MEDS: HYDROCODONE/APAP 10-325 MG TABLET GT PRN (17:35)
[2022-12-14] MEDS: SIMVASTATIN 10 MG TABLET GT SCH (21:27)
[2022-12-14] MEDS: ASCORBIC ACID 500 MG TABLET GT SCH (21:27)
[2022-12-14] MEDS: MULTIVIT, IRON, MIN NO. 8, FA TABLET GT SCH (21:27)
[2022-12-14] MEDS: ESTROGENS,CONJU VAGINAL CREAM 42.5 GM TUBE VG SCH (21:28)
[2022-12-14] MEDS: TEMAZEPAM 7.5 MG CAPSULE GT PRN (21:30)
[2022-12-15] VITALS (15 sets, daily range): TEMP 98–98.9; O2SAT 98–99
[2022-12-15] MEDS: IPRATROPIUM BROMIDE 0.5 MG/2.5 ML NEBU NEB SCH ×6 (03:35→23:10)
[2022-12-15] MEDS: ALBUTEROL SULFATE 2.5 MG/3 ML NEBU NEB SCH ×6 (03:35→23:10)
[2022-12-15] MEDS: MIDODRINE HCL 5 MG TABLET GT SCH ×3 (06:54→22:00)
[2022-12-15] MEDS: PROTEIN SUPPLEMENT (PROSTAT) 30 ML LIQUID GT SCH ×3 (06:54→22:24)
[2022-12-15] MEDS: OMEPRAZOLE 20 MG CAPSULE.DR GT SCH (06:54)
[2022-12-15] MEDS: BACLOFEN 10 MG TABLET GT SCH ×4 (06:54→18:03)
[2022-12-15] MEDS: ARGININE/GLUTAMINE/CALCIUM BMB 1 EACH POWD.PACK GT SCH ×2 (06:54→18:03)
[2022-12-15] MEDS: OMEGA-3 FATTY ACIDS/FISH OIL CAPSULE GT SCH ×2 (06:54→18:02)
[2022-12-15] MEDS: HYDROGEN PEROXIDE 3% 118 ML BOTTLE TP SCH ×2 (07:11→21:48)
[2022-12-15] MEDS: ACETAMINOPHEN 650 MG/20.3 ML LIQUID UDC GT SCH ×2 (09:04→20:30)
[2022-12-15] MEDS: APIXABAN 2.5 MG TABLET GT SCH ×2 (09:06→21:00)
[2022-12-15] MEDS: ACIDOPHILUS/BULGARICUS CHEW TAB GT SCH ×2 (09:08→21:00)
[2022-12-15] MEDS: NITROFURANTOIN MACROCRYSTAL 100 MG CAPSULE GT SCH (09:09)
[2022-12-15] MEDS: VITAMINS A AND D OINT 42 GM TUBE TP SCH ×2 (09:10→21:00)
[2022-12-15] MEDS: REMEDY ESSENTIAL ZINC PASTE 113 GM TP SCH ×2 (09:10→21:00)
[2022-12-15] MEDS: SILVER SULFADIAZINE 1% CREAM 50 GM TP SCH ×2 (09:10→21:00)
[2022-12-15] MEDS: SERTRALINE HCL 50 MG TABLET GT SCH (12:09)
[2022-12-15] MEDS: ASCORBIC ACID 500 MG TABLET GT SCH (21:00)
[2022-12-15] MEDS: ESTROGENS,CONJU VAGINAL CREAM 42.5 GM TUBE VG SCH (21:00)
[2022-12-15] MEDS: SIMVASTATIN 10 MG TABLET GT SCH (21:00)
[2022-12-15] MEDS: MULTIVIT, IRON, MIN NO. 8, FA TABLET GT SCH (21:00)
[2022-12-15] MEDS: TEMAZEPAM 7.5 MG CAPSULE GT PRN (22:00)
[2022-12-16] VITALS (14 sets, daily range): TEMP 98.8; O2SAT 98–99
[2022-12-16] MEDS: ALBUTEROL SULFATE 2.5 MG/3 ML NEBU NEB SCH ×6 (03:15→23:01)
[2022-12-16] MEDS: IPRATROPIUM BROMIDE 0.5 MG/2.5 ML NEBU NEB SCH ×6 (03:15→23:01)
[2022-12-16] MEDS: GLUCERNA 1.2 1000ML LIQUID GT PRN (03:35)
[2022-12-16] MEDS: BACLOFEN 10 MG TABLET GT SCH ×4 (05:31→17:20)
[2022-12-16] MEDS: OMEPRAZOLE 20 MG CAPSULE.DR GT SCH (05:31)
[2022-12-16] MEDS: PROTEIN SUPPLEMENT (PROSTAT) 30 ML LIQUID GT SCH ×3 (05:31→21:57)
[2022-12-16] MEDS: OMEGA-3 FATTY ACIDS/FISH OIL CAPSULE GT SCH ×2 (05:31→17:19)
[2022-12-16] MEDS: ARGININE/GLUTAMINE/CALCIUM BMB 1 EACH POWD.PACK GT SCH ×2 (05:31→17:19)
[2022-12-16] MEDS: MIDODRINE HCL 5 MG TABLET GT SCH ×3 (05:31→21:57)
[2022-12-16] MEDS: HYDROGEN PEROXIDE 3% 118 ML BOTTLE TP SCH ×2 (07:27→19:12)
[2022-12-16] MEDS: ACETAMINOPHEN 650 MG/20.3 ML LIQUID UDC GT SCH ×2 (08:47→20:30)
[2022-12-16] MEDS: ACIDOPHILUS/BULGARICUS CHEW TAB GT SCH ×2 (08:51→21:56)
[2022-12-16] MEDS: NITROFURANTOIN MACROCRYSTAL 100 MG CAPSULE GT SCH (08:52)
[2022-12-16] MEDS: APIXABAN 2.5 MG TABLET GT SCH ×2 (08:55→21:00)
[2022-12-16] MEDS: REMEDY ESSENTIAL ZINC PASTE 113 GM TP SCH ×2 (09:06→21:57)
[2022-12-16] MEDS: SODIUM HYPOCHLORITE 0.125% (QUARTER STRENGTH) 473 ML BOTTLE TP SCH (09:06)
[2022-12-16] MEDS: SILVER SULFADIAZINE 1% CREAM 50 GM TP SCH ×2 (09:06→21:57)
[2022-12-16] MEDS: VITAMINS A AND D OINT 42 GM TUBE TP SCH ×2 (09:07→21:57)
[2022-12-16] MEDS: SERTRALINE HCL 50 MG TABLET GT SCH (12:04)
[2022-12-16] MEDS: MULTIVIT, IRON, MIN NO. 8, FA TABLET GT SCH (21:57)
[2022-12-16] MEDS: ASCORBIC ACID 500 MG TABLET GT SCH (21:57)
[2022-12-16] MEDS: SIMVASTATIN 10 MG TABLET GT SCH (21:57)
[2022-12-16] MEDS: ESTROGENS,CONJU VAGINAL CREAM 42.5 GM TUBE VG SCH (21:57)
[2022-12-17] VITALS (14 sets, daily range): TEMP 97.8–98.1; O2SAT 98–99
[2022-12-17] MEDS: BACLOFEN 10 MG TABLET GT SCH ×4 (00:15→17:27)
[2022-12-17] MEDS: IPRATROPIUM BROMIDE 0.5 MG/2.5 ML NEBU NEB SCH ×6 (03:07→23:15)
[2022-12-17] MEDS: ALBUTEROL SULFATE 2.5 MG/3 ML NEBU NEB SCH ×6 (03:07→23:15)
[2022-12-17] MEDS: HYDROCODONE/APAP 10-325 MG TABLET GT PRN (05:30)
[2022-12-17] MEDS: OMEPRAZOLE 20 MG CAPSULE.DR GT SCH (05:36)
[2022-12-17] MEDS: MIDODRINE HCL 5 MG TABLET GT SCH ×3 (05:36→21:09)
[2022-12-17] MEDS: OMEGA-3 FATTY ACIDS/FISH OIL CAPSULE GT SCH ×2 (05:36→17:27)
[2022-12-17] MEDS: ARGININE/GLUTAMINE/CALCIUM BMB 1 EACH POWD.PACK GT SCH ×2 (05:36→17:27)
[2022-12-17] MEDS: PROTEIN SUPPLEMENT (PROSTAT) 30 ML LIQUID GT SCH ×3 (05:37→21:09)
[2022-12-17] MEDS: ACETAMINOPHEN 650 MG/20.3 ML LIQUID UDC GT SCH ×2 (08:30→21:09)
[2022-12-17] MEDS: HYDROGEN PEROXIDE 3% 118 ML BOTTLE TP SCH ×2 (09:30→20:17)
[2022-12-17] MEDS: APIXABAN 2.5 MG TABLET GT SCH ×2 (09:39→21:00)
[2022-12-17] MEDS: ACIDOPHILUS/BULGARICUS CHEW TAB GT SCH ×2 (09:39→21:09)
[2022-12-17] MEDS: REMEDY ESSENTIAL ZINC PASTE 113 GM TP SCH ×2 (09:40→21:09)
[2022-12-17] MEDS: NITROFURANTOIN MACROCRYSTAL 100 MG CAPSULE GT SCH (09:40)
[2022-12-17] MEDS: VITAMINS A AND D OINT 42 GM TUBE TP SCH ×2 (09:41→21:09)
[2022-12-17] MEDS: SILVER SULFADIAZINE 1% CREAM 50 GM TP SCH ×2 (09:41→21:09)
[2022-12-17] MEDS: SERTRALINE HCL 50 MG TABLET GT SCH (12:22)
[2022-12-17] MEDS: GLUCERNA 1.2 1000ML LIQUID GT PRN (12:25)
[2022-12-17] MEDS: TEMAZEPAM 7.5 MG CAPSULE GT PRN (21:00)
[2022-12-17] MEDS: ESTROGENS,CONJU VAGINAL CREAM 42.5 GM TUBE VG SCH (21:09)
[2022-12-17] MEDS: ASCORBIC ACID 500 MG TABLET GT SCH (21:09)
[2022-12-17] MEDS: SIMVASTATIN 10 MG TABLET GT SCH (21:09)
[2022-12-17] MEDS: MULTIVIT, IRON, MIN NO. 8, FA TABLET GT SCH (21:09)
[2022-12-18] VITALS (14 sets, daily range): TEMP 98.1–98.8; O2SAT 98–99
[2022-12-18] MEDS: HYDROCODONE/APAP 10-325 MG TABLET GT PRN (04:00)
[2022-12-18] MEDS: ALBUTEROL SULFATE 2.5 MG/3 ML NEBU NEB SCH ×6 (04:13→23:37)
[2022-12-18] MEDS: IPRATROPIUM BROMIDE 0.5 MG/2.5 ML NEBU NEB SCH ×6 (04:13→23:37)
[2022-12-18] MEDS: OMEPRAZOLE 20 MG CAPSULE.DR GT SCH (05:07)
[2022-12-18] MEDS: BACLOFEN 10 MG TABLET GT SCH ×4 (05:07→17:26)
[2022-12-18] MEDS: ARGININE/GLUTAMINE/CALCIUM BMB 1 EACH POWD.PACK GT SCH ×2 (05:07→17:25)
[2022-12-18] MEDS: PROTEIN SUPPLEMENT (PROSTAT) 30 ML LIQUID GT SCH ×3 (05:09→21:57)
[2022-12-18] MEDS: MIDODRINE HCL 5 MG TABLET GT SCH ×3 (05:09→21:56)
[2022-12-18] MEDS: OMEGA-3 FATTY ACIDS/FISH OIL CAPSULE GT SCH ×2 (05:10→17:25)
[2022-12-18] MEDS: APIXABAN 2.5 MG TABLET GT SCH ×2 (08:28→21:00)
[2022-12-18] MEDS: ACETAMINOPHEN 650 MG/20.3 ML LIQUID UDC GT SCH ×2 (08:29→20:30)
[2022-12-18] MEDS: ACIDOPHILUS/BULGARICUS CHEW TAB GT SCH ×2 (08:30→21:55)
[2022-12-18] MEDS: NITROFURANTOIN MACROCRYSTAL 100 MG CAPSULE GT SCH (08:31)
[2022-12-18] MEDS: SILVER SULFADIAZINE 1% CREAM 50 GM TP SCH ×2 (08:33→21:55)
[2022-12-18] MEDS: REMEDY ESSENTIAL ZINC PASTE 113 GM TP SCH ×2 (08:33→21:55)
[2022-12-18] MEDS: VITAMINS A AND D OINT 42 GM TUBE TP SCH ×2 (08:34→21:55)
[2022-12-18] MEDS: HYDROGEN PEROXIDE 3% 118 ML BOTTLE TP SCH ×2 (09:01→21:26)
[2022-12-18] MEDS: SERTRALINE HCL 50 MG TABLET GT SCH (12:17)
[2022-12-18] MEDS: ASCORBIC ACID 500 MG TABLET GT SCH (21:55)
[2022-12-18] MEDS: ESTROGENS,CONJU VAGINAL CREAM 42.5 GM TUBE VG SCH (21:55)
[2022-12-18] MEDS: MULTIVIT, IRON, MIN NO. 8, FA TABLET GT SCH (21:55)
[2022-12-18] MEDS: SIMVASTATIN 10 MG TABLET GT SCH (21:55)
[2022-12-19] VITALS (14 sets, daily range): TEMP 98.3–98.6; O2SAT 98–99
[2022-12-19] MEDS: BACLOFEN 10 MG TABLET GT SCH ×5 (00:40→23:24)
[2022-12-19] MEDS: ALBUTEROL SULFATE 2.5 MG/3 ML NEBU NEB SCH ×6 (04:01→23:17)
[2022-12-19] MEDS: IPRATROPIUM BROMIDE 0.5 MG/2.5 ML NEBU NEB SCH ×6 (04:01→23:16)
[2022-12-19] MEDS: ARGININE/GLUTAMINE/CALCIUM BMB 1 EACH POWD.PACK GT SCH ×2 (05:06→17:27)
[2022-12-19] MEDS: OMEGA-3 FATTY ACIDS/FISH OIL CAPSULE GT SCH ×2 (05:06→17:26)
[2022-12-19] MEDS: MIDODRINE HCL 5 MG TABLET GT SCH ×3 (05:07→21:02)
[2022-12-19] MEDS: OMEPRAZOLE 20 MG CAPSULE.DR GT SCH (05:07)
[2022-12-19] MEDS: PROTEIN SUPPLEMENT (PROSTAT) 30 ML LIQUID GT SCH ×3 (05:07→21:05)
[2022-12-19 06:52] LABS: CALCIUM 9.4 mg/dL (8.5-10.1); CREATININE 0.8 mg/dL (0.6-1.3); POTASSIUM 3.8 mmol/L (3.5-5.1)
[2022-12-19] MEDS: ACETAMINOPHEN 650 MG/20.3 ML LIQUID UDC GT SCH ×2 (08:30→21:03)
[2022-12-19] MEDS: SODIUM HYPOCHLORITE 0.125% (QUARTER STRENGTH) 473 ML BOTTLE TP SCH (09:00)
[2022-12-19] MEDS: REMEDY ESSENTIAL ZINC PASTE 113 GM TP SCH ×2 (09:00→21:03)
[2022-12-19] MEDS: SILVER SULFADIAZINE 1% CREAM 50 GM TP SCH ×2 (09:00→21:03)
[2022-12-19] MEDS: VITAMINS A AND D OINT 42 GM TUBE TP SCH ×2 (09:00→21:03)
[2022-12-19] MEDS: NITROFURANTOIN MACROCRYSTAL 100 MG CAPSULE GT SCH (09:00)
[2022-12-19] MEDS: ACIDOPHILUS/BULGARICUS CHEW TAB GT SCH ×2 (09:00→21:03)
[2022-12-19] MEDS: APIXABAN 2.5 MG TABLET GT SCH ×2 (09:00→21:00)
[2022-12-19] MEDS: HYDROGEN PEROXIDE 3% 118 ML BOTTLE TP SCH ×2 (09:55→19:22)
[2022-12-19] MEDS: SERTRALINE HCL 50 MG TABLET GT SCH (12:51)
[2022-12-19] MEDS: ESTROGENS,CONJU VAGINAL CREAM 42.5 GM TUBE VG SCH (21:03)
[2022-12-19] MEDS: ASCORBIC ACID 500 MG TABLET GT SCH (21:05)
[2022-12-19] MEDS: SIMVASTATIN 10 MG TABLET GT SCH (21:05)
[2022-12-19] MEDS: MULTIVIT, IRON, MIN NO. 8, FA TABLET GT SCH (21:05)
[2022-12-20] VITALS (13 sets, daily range): TEMP 98.8–99.4; O2SAT 98–99
[2022-12-20] MEDS: GLUCERNA 1.2 1000ML LIQUID GT PRN (00:13)
[2022-12-20] MEDS: IPRATROPIUM BROMIDE 0.5 MG/2.5 ML NEBU NEB SCH ×6 (03:31→23:31)
[2022-12-20] MEDS: ALBUTEROL SULFATE 2.5 MG/3 ML NEBU NEB SCH ×6 (03:31→23:31)
[2022-12-20] MEDS: BACLOFEN 10 MG TABLET GT SCH ×3 (05:39→17:09)
[2022-12-20] MEDS: ARGININE/GLUTAMINE/CALCIUM BMB 1 EACH POWD.PACK GT SCH ×2 (05:39→17:09)
[2022-12-20] MEDS: OMEPRAZOLE 20 MG CAPSULE.DR GT SCH (05:39)
[2022-12-20] MEDS: OMEGA-3 FATTY ACIDS/FISH OIL CAPSULE GT SCH ×2 (05:39→17:09)
[2022-12-20] MEDS: PROTEIN SUPPLEMENT (PROSTAT) 30 ML LIQUID GT SCH ×3 (05:40→21:26)
[2022-12-20] MEDS: MIDODRINE HCL 5 MG TABLET GT SCH ×3 (05:40→21:29)
[2022-12-20] MEDS: HYDROGEN PEROXIDE 3% 118 ML BOTTLE TP SCH ×2 (07:50→19:44)
[2022-12-20] MEDS: ACETAMINOPHEN 650 MG/20.3 ML LIQUID UDC GT SCH ×2 (08:39→21:23)
[2022-12-20] MEDS: NITROFURANTOIN MACROCRYSTAL 100 MG CAPSULE GT SCH (08:41)
[2022-12-20] MEDS: APIXABAN 2.5 MG TABLET GT SCH ×2 (08:41→21:00)
[2022-12-20] MEDS: ACIDOPHILUS/BULGARICUS CHEW TAB GT SCH ×2 (08:41→21:23)
[2022-12-20] MEDS: VITAMINS A AND D OINT 42 GM TUBE TP SCH ×2 (08:42→21:25)
[2022-12-20] MEDS: REMEDY ESSENTIAL ZINC PASTE 113 GM TP SCH ×2 (08:42→21:24)
[2022-12-20] MEDS: SILVER SULFADIAZINE 1% CREAM 50 GM TP SCH ×3 (08:42→21:25)
[2022-12-20] MEDS: SERTRALINE HCL 50 MG TABLET GT SCH (12:15)
[2022-12-20] MEDS: FOSFOMYCIN TROMETHAMINE 3 GM PACKET GT SCH (21:00)
[2022-12-20] MEDS: SIMVASTATIN 10 MG TABLET GT SCH (21:24)
[2022-12-20] MEDS: ASCORBIC ACID 500 MG TABLET GT SCH (21:24)
[2022-12-20] MEDS: MULTIVIT, IRON, MIN NO. 8, FA TABLET GT SCH (21:24)
[2022-12-20] MEDS: ESTROGENS,CONJU VAGINAL CREAM 42.5 GM TUBE VG SCH (21:25)
[2022-12-21] VITALS (14 sets, daily range): TEMP 98.7–101.3; O2SAT 98–99
[2022-12-21] MEDS: IPRATROPIUM BROMIDE 0.5 MG/2.5 ML NEBU NEB SCH ×6 (03:25→23:55)
[2022-12-21] MEDS: ALBUTEROL SULFATE 2.5 MG/3 ML NEBU NEB SCH ×6 (03:25→23:55)
[2022-12-21] MEDS: ARGININE/GLUTAMINE/CALCIUM BMB 1 EACH POWD.PACK GT SCH ×2 (05:17→17:32)
[2022-12-21] MEDS: OMEGA-3 FATTY ACIDS/FISH OIL CAPSULE GT SCH ×2 (05:17→17:32)
[2022-12-21] MEDS: BACLOFEN 10 MG TABLET GT SCH ×4 (05:17→17:32)
[2022-12-21] MEDS: OMEPRAZOLE 20 MG CAPSULE.DR GT SCH (05:17)
[2022-12-21] MEDS: PROTEIN SUPPLEMENT (PROSTAT) 30 ML LIQUID GT SCH ×3 (05:18→22:36)
[2022-12-21] MEDS: MIDODRINE HCL 5 MG TABLET GT SCH ×3 (05:19→22:00)
[2022-12-21] MEDS: GLUCERNA 1.2 1000ML LIQUID GT PRN (06:50)
[2022-12-21] MEDS: ACETAMINOPHEN 650 MG/20.3 ML LIQUID UDC GT SCH ×2 (08:42→20:56)
[2022-12-21] MEDS: APIXABAN 2.5 MG TABLET GT SCH ×2 (08:50→21:00)
[2022-12-21] MEDS: NITROFURANTOIN MACROCRYSTAL 100 MG CAPSULE GT SCH (08:50)
[2022-12-21] MEDS: ACIDOPHILUS/BULGARICUS CHEW TAB GT SCH ×2 (08:50→21:00)
[2022-12-21] MEDS: SILVER SULFADIAZINE 1% CREAM 50 GM TP SCH ×4 (08:51→21:00)
[2022-12-21] MEDS: SODIUM HYPOCHLORITE 0.125% (QUARTER STRENGTH) 473 ML BOTTLE TP SCH (08:51)
[2022-12-21] MEDS: REMEDY ESSENTIAL ZINC PASTE 113 GM TP SCH ×2 (08:51→21:00)
[2022-12-21] MEDS: VITAMINS A AND D OINT 42 GM TUBE TP SCH ×2 (08:51→21:00)
[2022-12-21] MEDS: HYDROGEN PEROXIDE 3% 118 ML BOTTLE TP SCH ×2 (09:00→21:33)
[2022-12-21] MEDS: SERTRALINE HCL 50 MG TABLET GT SCH (12:32)
[2022-12-21] MEDS: MULTIVIT, IRON, MIN NO. 8, FA TABLET GT SCH (21:00)
[2022-12-21] MEDS: SIMVASTATIN 10 MG TABLET GT SCH (21:00)
[2022-12-21] MEDS: ASCORBIC ACID 500 MG TABLET GT SCH (21:00)
[2022-12-21] MEDS: ESTROGENS,CONJU VAGINAL CREAM 42.5 GM TUBE VG SCH (21:00)
[2022-12-22] VITALS (15 sets, daily range): TEMP 98.1–98.5; O2SAT 98–99
[2022-12-22] MEDS: ALBUTEROL SULFATE 2.5 MG/3 ML NEBU NEB SCH ×6 (03:10→23:10)
[2022-12-22] MEDS: IPRATROPIUM BROMIDE 0.5 MG/2.5 ML NEBU NEB SCH ×6 (03:10→23:10)
[2022-12-22] MEDS: BACLOFEN 10 MG TABLET GT SCH ×5 (06:25→23:02)
[2022-12-22] MEDS: PROTEIN SUPPLEMENT (PROSTAT) 30 ML LIQUID GT SCH ×3 (06:25→22:07)
[2022-12-22] MEDS: ARGININE/GLUTAMINE/CALCIUM BMB 1 EACH POWD.PACK GT SCH ×2 (06:25→17:02)
[2022-12-22] MEDS: OMEPRAZOLE 20 MG CAPSULE.DR GT SCH (06:25)
[2022-12-22] MEDS: MIDODRINE HCL 5 MG TABLET GT SCH ×3 (06:25→22:00)
[2022-12-22] MEDS: OMEGA-3 FATTY ACIDS/FISH OIL CAPSULE GT SCH ×2 (06:25→17:02)
[2022-12-22] MEDS: ACIDOPHILUS/BULGARICUS CHEW TAB GT SCH ×2 (08:59→21:00)
[2022-12-22] MEDS: ACETAMINOPHEN 650 MG/20.3 ML LIQUID UDC GT SCH ×2 (08:59→20:30)
[2022-12-22] MEDS: NITROFURANTOIN MACROCRYSTAL 100 MG CAPSULE GT SCH (08:59)
[2022-12-22] MEDS: APIXABAN 2.5 MG TABLET GT SCH ×2 (08:59→21:00)
[2022-12-22] MEDS: VITAMINS A AND D OINT 42 GM TUBE TP SCH ×2 (09:00→21:00)
[2022-12-22] MEDS: SILVER SULFADIAZINE 1% CREAM 50 GM TP SCH ×4 (09:00→21:00)
[2022-12-22] MEDS: REMEDY ESSENTIAL ZINC PASTE 113 GM TP SCH ×2 (09:05→21:00)
[2022-12-22] MEDS: HYDROGEN PEROXIDE 3% 118 ML BOTTLE TP SCH ×2 (09:56→21:41)
[2022-12-22 11:30] LABS: *BILIRUBIN,URIN NEGATIVE (NEGATIVE); *CLARITY,URINE SLIGHTLY CLOUDY (CLEAR); *COLOR,URINE Other (YELLOW); *KETONES,URINE NEGATIVE (NEGATIVE); *UROBILINOGEN,URINE 0.2 E.U./dl (NORMAL); NITRITE, URINE NEGATIVE (NEGATIVE); PH,URINE 6.5 (5.0-8.0); UGLUCOSE NEGATIVE (NEGATIVE)
[2022-12-22 11:34] LABS: *PROTEIN,URINE 3+ (NEGATIVE)
[2022-12-22 11:40] LABS: BACTERIA,URINE MANY /HPF (NONE SEEN); RBC,URINE TNTC /HPF (0-3); WBC,URINE TNTC /HPF (0-3)
[2022-12-22 11:44] LABS: *BLOOD, URINE 3+ (NEGATIVE); LEUKOCYTE ESTERASE ,URINE 3+ (NEGATIVE)
[2022-12-22] MEDS: SERTRALINE HCL 50 MG TABLET GT SCH (12:00)
[2022-12-22] MEDS ORDERED: SILVER NITRATE APPLICATOR STICK EACH TP PRN (16:30)
[2022-12-22] MEDS: SIMVASTATIN 10 MG TABLET GT SCH (21:00)
[2022-12-22] MEDS: MULTIVIT, IRON, MIN NO. 8, FA TABLET GT SCH (21:00)
[2022-12-22] MEDS: ASCORBIC ACID 500 MG TABLET GT SCH (21:00)
[2022-12-22] MEDS: ESTROGENS,CONJU VAGINAL CREAM 42.5 GM TUBE VG SCH (21:00)
[2022-12-22] MEDS: TEMAZEPAM 7.5 MG CAPSULE GT PRN (22:00)
[2022-12-23] VITALS (13 sets, daily range): TEMP 98.3; O2SAT 98–99
[2022-12-23] MEDS: IPRATROPIUM BROMIDE 0.5 MG/2.5 ML NEBU NEB SCH ×6 (03:10→23:05)
[2022-12-23] MEDS: ALBUTEROL SULFATE 2.5 MG/3 ML NEBU NEB SCH ×6 (03:10→23:05)
[2022-12-23] MEDS: HYDROCODONE/APAP 10-325 MG TABLET GT PRN (04:45)
[2022-12-23] MEDS: PROTEIN SUPPLEMENT (PROSTAT) 30 ML LIQUID GT SCH ×3 (05:23→22:10)
[2022-12-23] MEDS: OMEGA-3 FATTY ACIDS/FISH OIL CAPSULE GT SCH ×2 (05:23→17:51)
[2022-12-23] MEDS: MIDODRINE HCL 5 MG TABLET GT SCH ×3 (05:23→22:00)
[2022-12-23] MEDS: ARGININE/GLUTAMINE/CALCIUM BMB 1 EACH POWD.PACK GT SCH ×2 (05:23→17:51)
[2022-12-23] MEDS: OMEPRAZOLE 20 MG CAPSULE.DR GT SCH (05:23)
[2022-12-23] MEDS: BACLOFEN 10 MG TABLET GT SCH ×4 (05:23→23:07)
[2022-12-23 06:03] LABS: BASOPHILS # (AUTO) 0.1 K/UL (0.0-0.2); BASOPHILS % (AUTO) 1.2 % (0.0-2.0); EOSINOPHILS # (AUTO) 0.4 K/uL (0.0-0.7); EOSINOPHILS % (AUTO) 3.8 % (0.0-7.0); HEMATOCRIT 35.3 % (31.2-41.9); HEMOGLOBIN 11.1 g/dL (10.9-14.3); LYMPHOCYTES # (AUTO) 1.9 K/uL (0.8-4.8); LYMPHOCYTES % (AUTO) 17.5 % (20.5-51.5); MEAN CORPUSCULAR HEMOGLOBIN 25.3 uug (24.7-32.8); MEAN CORPUSCULAR HGB CONC 32 g/dL (32.3-35.6); MEAN CORPUSCULAR VOLUME 80.3 fL (75.5-95.3); MONOCYTES % (AUTO) 9.3 % (0.0-11.0); NEUTROPHILS # (AUTO) 7.4 K/uL (1.8-8.9); NEUTROPHILS % (AUTO) 68.2 % (38.5-71.5); PLATELET COUNT (AUTO) 214 K/uL (179-408); RED BLOOD CELL COUNT(AUTO) 4.39 MIL/uL (3.63-4.92); RED CELL DISTRIBUTION WIDTH 18.9 % (12.3-17.7); WHITE BLOOD COUNT (AUTO) 10.9 K/uL (3.8-11.8)
[2022-12-23 06:26] LABS: BILIRUBIN,TOTAL 0.3 mg/dL (0.2-1.0); CALCIUM 9.3 mg/dL (8.5-10.1); CREATININE 0.9 mg/dL (0.6-1.3); POTASSIUM 3.8 mmol/L (3.5-5.1); TOTAL PROTEIN, SERUM 9.3 g/dL (6.4-8.2)
[2022-12-23 07:03] LABS: DIFFERENTIAL COMMENT 1
[2022-12-23] MEDS: ACETAMINOPHEN 650 MG/20.3 ML LIQUID UDC GT SCH ×2 (08:30→20:30)
[2022-12-23] MEDS: SILVER SULFADIAZINE 1% CREAM 50 GM TP SCH ×4 (09:00→21:00)
[2022-12-23] MEDS: VITAMINS A AND D OINT 42 GM TUBE TP SCH ×2 (09:00→21:00)
[2022-12-23] MEDS: REMEDY ESSENTIAL ZINC PASTE 113 GM TP SCH ×2 (09:00→21:00)
[2022-12-23] MEDS: APIXABAN 2.5 MG TABLET GT SCH ×2 (09:00→21:00)
[2022-12-23] MEDS: HYDROGEN PEROXIDE 3% 118 ML BOTTLE TP SCH ×2 (09:00→21:33)
[2022-12-23] MEDS: ACIDOPHILUS/BULGARICUS CHEW TAB GT SCH ×2 (09:00→21:00)
[2022-12-23] MEDS: NITROFURANTOIN MACROCRYSTAL 100 MG CAPSULE GT SCH (09:00)
[2022-12-23] MEDS: SERTRALINE HCL 50 MG TABLET GT SCH (12:00)
[2022-12-23] MEDS: ESTROGENS,CONJU VAGINAL CREAM 42.5 GM TUBE VG SCH (21:00)
[2022-12-23] MEDS: SIMVASTATIN 10 MG TABLET GT SCH (21:00)
[2022-12-23] MEDS: ASCORBIC ACID 500 MG TABLET GT SCH (21:00)
[2022-12-23] MEDS: MULTIVIT, IRON, MIN NO. 8, FA TABLET GT SCH (21:00)
[2022-12-23] MEDS: TEMAZEPAM 7.5 MG CAPSULE GT PRN (22:00)
[2022-12-24] VITALS (13 sets, daily range): O2SAT 98–99
[2022-12-24] MEDS: ALBUTEROL SULFATE 2.5 MG/3 ML NEBU NEB SCH ×5 (04:29→19:10)
[2022-12-24] MEDS: IPRATROPIUM BROMIDE 0.5 MG/2.5 ML NEBU NEB SCH ×5 (04:29→19:10)
[2022-12-24] MEDS: OMEGA-3 FATTY ACIDS/FISH OIL CAPSULE GT SCH ×2 (05:22→17:34)
[2022-12-24] MEDS: BACLOFEN 10 MG TABLET GT SCH ×3 (05:22→17:34)
[2022-12-24] MEDS: PROTEIN SUPPLEMENT (PROSTAT) 30 ML LIQUID GT SCH ×3 (05:22→22:34)
[2022-12-24] MEDS: MIDODRINE HCL 5 MG TABLET GT SCH ×3 (05:22→22:00)
[2022-12-24] MEDS: ARGININE/GLUTAMINE/CALCIUM BMB 1 EACH POWD.PACK GT SCH ×2 (05:22→17:34)
[2022-12-24] MEDS: OMEPRAZOLE 20 MG CAPSULE.DR GT SCH (05:22)
[2022-12-24] MEDS: ACETAMINOPHEN 650 MG/20.3 ML LIQUID UDC GT SCH ×2 (09:05→20:30)
[2022-12-24] MEDS: ACIDOPHILUS/BULGARICUS CHEW TAB GT SCH ×2 (09:06→21:00)
[2022-12-24] MEDS: NITROFURANTOIN MACROCRYSTAL 100 MG CAPSULE GT SCH (09:08)
[2022-12-24] MEDS: SILVER SULFADIAZINE 1% CREAM 50 GM TP SCH ×4 (09:08→21:00)
[2022-12-24] MEDS: VITAMINS A AND D OINT 42 GM TUBE TP SCH ×2 (09:08→21:00)
[2022-12-24] MEDS: REMEDY ESSENTIAL ZINC PASTE 113 GM TP SCH ×2 (09:08→21:00)
[2022-12-24] MEDS: APIXABAN 2.5 MG TABLET GT SCH ×2 (09:10→21:00)
[2022-12-24] MEDS: HYDROGEN PEROXIDE 3% 118 ML BOTTLE TP SCH ×2 (09:45→21:39)
[2022-12-24] MEDS: SERTRALINE HCL 50 MG TABLET GT SCH (12:33)
[2022-12-24] MEDS: GLUCERNA 1.2 1000ML LIQUID GT PRN (17:35)
[2022-12-24] MEDS: MULTIVIT, IRON, MIN NO. 8, FA TABLET GT SCH (21:00)
[2022-12-24] MEDS: ASCORBIC ACID 500 MG TABLET GT SCH (21:00)
[2022-12-24] MEDS: ESTROGENS,CONJU VAGINAL CREAM 42.5 GM TUBE VG SCH (21:00)
[2022-12-24] MEDS: SIMVASTATIN 10 MG TABLET GT SCH (21:00)
[2022-12-24] MEDS: TEMAZEPAM 7.5 MG CAPSULE GT PRN (22:30)
[2022-12-25] VITALS (15 sets, daily range): TEMP 98.6–100.3; O2SAT 98–99
[2022-12-25] MEDS: IPRATROPIUM BROMIDE 0.5 MG/2.5 ML NEBU NEB SCH ×6 (00:06→20:25)
[2022-12-25] MEDS: ALBUTEROL SULFATE 2.5 MG/3 ML NEBU NEB SCH ×6 (00:06→20:25)
[2022-12-25] MEDS: BACLOFEN 10 MG TABLET GT SCH ×5 (05:21→23:29)
[2022-12-25] MEDS: ARGININE/GLUTAMINE/CALCIUM BMB 1 EACH POWD.PACK GT SCH ×2 (05:21→17:43)
[2022-12-25] MEDS: OMEPRAZOLE 20 MG CAPSULE.DR GT SCH (05:21)
[2022-12-25] MEDS: OMEGA-3 FATTY ACIDS/FISH OIL CAPSULE GT SCH ×2 (05:21→17:43)
[2022-12-25] MEDS: MIDODRINE HCL 5 MG TABLET GT SCH ×3 (05:22→22:00)
[2022-12-25] MEDS: PROTEIN SUPPLEMENT (PROSTAT) 30 ML LIQUID GT SCH ×3 (05:22→22:22)
[2022-12-25] MEDS: ACETAMINOPHEN 650 MG/20.3 ML LIQUID UDC GT SCH ×2 (08:57→20:58)
[2022-12-25] MEDS: APIXABAN 2.5 MG TABLET GT SCH (09:00)
[2022-12-25] MEDS: ACIDOPHILUS/BULGARICUS CHEW TAB GT SCH ×2 (09:05→20:58)
[2022-12-25] MEDS: REMEDY ESSENTIAL ZINC PASTE 113 GM TP SCH ×2 (09:07→20:58)
[2022-12-25] MEDS: NITROFURANTOIN MACROCRYSTAL 100 MG CAPSULE GT SCH (09:07)
[2022-12-25] MEDS: VITAMINS A AND D OINT 42 GM TUBE TP SCH ×2 (09:07→20:58)
[2022-12-25] MEDS: SILVER SULFADIAZINE 1% CREAM 50 GM TP SCH ×4 (09:07→20:58)
[2022-12-25] MEDS: HYDROGEN PEROXIDE 3% 118 ML BOTTLE TP SCH ×2 (09:10→20:25)
[2022-12-25] MEDS: SERTRALINE HCL 50 MG TABLET GT SCH (12:15)
[2022-12-25] MEDS: GLUCERNA 1.2 1000ML LIQUID GT PRN (20:44)
[2022-12-25] MEDS: SIMVASTATIN 10 MG TABLET GT SCH (20:58)
[2022-12-25] MEDS: ASCORBIC ACID 500 MG TABLET GT SCH (20:58)
[2022-12-25] MEDS: MULTIVIT, IRON, MIN NO. 8, FA TABLET GT SCH (20:58)
[2022-12-25] MEDS: ESTROGENS,CONJU VAGINAL CREAM 42.5 GM TUBE VG SCH (20:58)
[2022-12-25] MEDS: TEMAZEPAM 7.5 MG CAPSULE GT PRN (23:29)
[2022-12-26] VITALS (14 sets, daily range): TEMP 97.4–100.4; O2SAT 98–99
[2022-12-26] MEDS: ALBUTEROL SULFATE 2.5 MG/3 ML NEBU NEB SCH ×7 (00:04→23:16)
[2022-12-26] MEDS: IPRATROPIUM BROMIDE 0.5 MG/2.5 ML NEBU NEB SCH ×7 (00:04→23:16)
[2022-12-26] MEDS: OMEGA-3 FATTY ACIDS/FISH OIL CAPSULE GT SCH ×2 (05:12→17:24)
[2022-12-26] MEDS: ARGININE/GLUTAMINE/CALCIUM BMB 1 EACH POWD.PACK GT SCH ×2 (05:12→17:26)
[2022-12-26] MEDS: MIDODRINE HCL 5 MG TABLET GT SCH ×3 (05:12→21:01)
[2022-12-26] MEDS: BACLOFEN 10 MG TABLET GT SCH ×3 (05:12→17:26)
[2022-12-26] MEDS: OMEPRAZOLE 20 MG CAPSULE.DR GT SCH (05:12)
[2022-12-26] MEDS: PROTEIN SUPPLEMENT (PROSTAT) 30 ML LIQUID GT SCH ×3 (05:13→21:37)
[2022-12-26 07:09] LABS: BASOPHILS # (AUTO) 0.1 K/UL (0.0-0.2); BASOPHILS % (AUTO) 0.5 % (0.0-2.0); EOSINOPHILS # (AUTO) 0.5 K/uL (0.0-0.7); EOSINOPHILS % (AUTO) 3.2 % (0.0-7.0); HEMATOCRIT 32.8 % (31.2-41.9); HEMOGLOBIN 10.2 g/dL (10.9-14.3); LYMPHOCYTES # (AUTO) 1.4 K/uL (0.8-4.8); LYMPHOCYTES % (AUTO) 9.4 % (20.5-51.5); MEAN CORPUSCULAR HEMOGLOBIN 24.5 uug (24.7-32.8); MEAN CORPUSCULAR HGB CONC 31 g/dL (32.3-35.6); MEAN CORPUSCULAR VOLUME 78.8 fL (75.5-95.3); MONOCYTES % (AUTO) 6.8 % (0.0-11.0); NEUTROPHILS # (AUTO) 12.2 K/uL (1.8-8.9); NEUTROPHILS % (AUTO) 80.1 % (38.5-71.5); PLATELET COUNT (AUTO) 145 K/uL (179-408); RED BLOOD CELL COUNT(AUTO) 4.17 MIL/uL (3.63-4.92); RED CELL DISTRIBUTION WIDTH 19.4 % (12.3-17.7); WHITE BLOOD COUNT (AUTO) 15.2 K/uL (3.8-11.8)
[2022-12-26 07:15] LABS: DIFFERENTIAL COMMENT 1
[2022-12-26] MEDS: ACETAMINOPHEN 650 MG/20.3 ML LIQUID UDC GT SCH ×2 (08:34→21:01)
[2022-12-26] MEDS: ACIDOPHILUS/BULGARICUS CHEW TAB GT SCH ×2 (08:34→21:01)
[2022-12-26] MEDS: NITROFURANTOIN MACROCRYSTAL 100 MG CAPSULE GT SCH (08:35)
[2022-12-26] MEDS: SILVER SULFADIAZINE 1% CREAM 50 GM TP SCH ×4 (08:36→21:01)
[2022-12-26] MEDS: REMEDY ESSENTIAL ZINC PASTE 113 GM TP SCH ×2 (08:36→21:01)
[2022-12-26] MEDS: VITAMINS A AND D OINT 42 GM TUBE TP SCH ×2 (08:36→21:01)
[2022-12-26] MEDS: HYDROGEN PEROXIDE 3% 118 ML BOTTLE TP SCH ×2 (09:57→19:31)
[2022-12-26] MEDS: SERTRALINE HCL 50 MG TABLET GT SCH (12:21)
[2022-12-26] MEDS: CEFEPIME HCL 1 G in IV DEXTROSE 5% 50 ML IV SCH (12:30)
[2022-12-26 13:35] LABS: *BILIRUBIN,URIN NEGATIVE (NEGATIVE); *BLOOD, URINE 3+ (NEGATIVE); *CLARITY,URINE CLOUDY (CLEAR); *COLOR,URINE YELLOW (YELLOW); *KETONES,URINE NEGATIVE (NEGATIVE); *PROTEIN,URINE 2+ (NEGATIVE); *UROBILINOGEN,URINE 0.2 E.U./dl (NORMAL); LEUKOCYTE ESTERASE ,URINE 3+ (NEGATIVE); NITRITE, URINE NEGATIVE (NEGATIVE); PH,URINE 6.5 (5.0-8.0); UGLUCOSE NEGATIVE (NEGATIVE)
[2022-12-26 14:02] LABS: SQUAMOUS EPITHELIAL CELL,UR FEW /HPF (NONE SEEN); WBC,URINE TNTC /HPF (0-3); YEAST,URINE FEW /HPF (NONE SEEN)
[2022-12-26 14:04] LABS: BACTERIA,URINE MODERATE /HPF (NONE SEEN)
[2022-12-26] MEDS: MULTIVIT, IRON, MIN NO. 8, FA TABLET GT SCH (21:01)
[2022-12-26] MEDS: ESTROGENS,CONJU VAGINAL CREAM 42.5 GM TUBE VG SCH (21:01)
[2022-12-26] MEDS: SIMVASTATIN 10 MG TABLET GT SCH (21:01)
[2022-12-26] MEDS: ASCORBIC ACID 500 MG TABLET GT SCH (21:01)
[2022-12-27] VITALS (16 sets, daily range): TEMP 98.3–101.2; O2SAT 97–99
[2022-12-27] MEDS: BACLOFEN 10 MG TABLET GT SCH ×5 (00:16→23:15)
[2022-12-27] MEDS: IPRATROPIUM BROMIDE 0.5 MG/2.5 ML NEBU NEB SCH ×6 (03:40→23:01)
[2022-12-27] MEDS: ALBUTEROL SULFATE 2.5 MG/3 ML NEBU NEB SCH ×6 (03:40→23:01)
[2022-12-27] MEDS: GLUCERNA 1.2 1000ML LIQUID GT PRN (04:29)
[2022-12-27] MEDS: MIDODRINE HCL 5 MG TABLET GT SCH ×3 (05:07→21:24)
[2022-12-27] MEDS: ARGININE/GLUTAMINE/CALCIUM BMB 1 EACH POWD.PACK GT SCH ×2 (05:07→17:58)
[2022-12-27] MEDS: OMEGA-3 FATTY ACIDS/FISH OIL CAPSULE GT SCH ×2 (05:07→17:58)
[2022-12-27] MEDS: OMEPRAZOLE 20 MG CAPSULE.DR GT SCH (05:07)
[2022-12-27] MEDS: PROTEIN SUPPLEMENT (PROSTAT) 30 ML LIQUID GT SCH ×3 (05:07→21:25)
[2022-12-27] MEDS: ACETAMINOPHEN 650 MG/20.3 ML LIQUID UDC GT SCH ×2 (07:59→21:19)
[2022-12-27] MEDS: ACIDOPHILUS/BULGARICUS CHEW TAB GT SCH ×2 (08:00→21:19)
[2022-12-27] MEDS: NITROFURANTOIN MACROCRYSTAL 100 MG CAPSULE GT SCH (08:00)
[2022-12-27] MEDS: REMEDY ESSENTIAL ZINC PASTE 113 GM TP SCH ×2 (08:00→21:23)
[2022-12-27] MEDS: VITAMINS A AND D OINT 42 GM TUBE TP SCH ×2 (08:01→21:24)
[2022-12-27] MEDS: SILVER SULFADIAZINE 1% CREAM 50 GM TP SCH ×4 (08:01→21:24)
[2022-12-27] MEDS: HYDROGEN PEROXIDE 3% 118 ML BOTTLE TP SCH ×2 (08:45→21:32)
[2022-12-27] MEDS: SERTRALINE HCL 50 MG TABLET GT SCH (12:21)
[2022-12-27] MEDS: CEFEPIME HCL 1 G in IV DEXTROSE 5% 50 ML IV SCH (13:01)
[2022-12-27] MEDS ORDERED: ACETAMINOPHEN 650 MG/20 ML UDC- SA PATIENTS-FEVER ONLY GT PRN (17:00)
[2022-12-27] MEDS: FOSFOMYCIN TROMETHAMINE 3 GM PACKET GT SCH (21:21)
[2022-12-27] MEDS: MULTIVIT, IRON, MIN NO. 8, FA TABLET GT SCH (21:21)
[2022-12-27] MEDS: ASCORBIC ACID 500 MG TABLET GT SCH (21:22)
[2022-12-27] MEDS: SIMVASTATIN 10 MG TABLET GT SCH (21:23)
[2022-12-27] MEDS: ESTROGENS,CONJU VAGINAL CREAM 42.5 GM TUBE VG SCH (21:24)
[2022-12-27] MEDS: TEMAZEPAM 7.5 MG CAPSULE GT PRN (21:26)
[2022-12-28] VITALS (14 sets, daily range): TEMP 97.8–98.2; O2SAT 97–99
[2022-12-28] MEDS: ALBUTEROL SULFATE 2.5 MG/3 ML NEBU NEB SCH ×5 (03:26→19:08)
[2022-12-28] MEDS: IPRATROPIUM BROMIDE 0.5 MG/2.5 ML NEBU NEB SCH ×5 (03:26→19:07)
[2022-12-28] MEDS: ARGININE/GLUTAMINE/CALCIUM BMB 1 EACH POWD.PACK GT SCH ×2 (05:22→17:07)
[2022-12-28] MEDS: OMEPRAZOLE 20 MG CAPSULE.DR GT SCH (05:22)
[2022-12-28] MEDS: MIDODRINE HCL 5 MG TABLET GT SCH ×3 (05:22→21:40)
[2022-12-28] MEDS: OMEGA-3 FATTY ACIDS/FISH OIL CAPSULE GT SCH ×2 (05:22→17:06)
[2022-12-28] MEDS: BACLOFEN 10 MG TABLET GT SCH ×3 (05:22→17:07)
[2022-12-28] MEDS: PROTEIN SUPPLEMENT (PROSTAT) 30 ML LIQUID GT SCH ×3 (05:23→21:41)
[2022-12-28 07:20] LABS: BASOPHILS % (AUTO) 0.5 % (0.0-2.0); EOSINOPHILS # (AUTO) 0.4 K/uL (0.0-0.7); EOSINOPHILS % (AUTO) 4.3 % (0.0-7.0); HEMATOCRIT 31.6 % (31.2-41.9); HEMOGLOBIN 9.8 g/dL (10.9-14.3); LYMPHOCYTES # (AUTO) 1.2 K/uL (0.8-4.8); LYMPHOCYTES % (AUTO) 13.7 % (20.5-51.5); MEAN CORPUSCULAR HEMOGLOBIN 24.5 uug (24.7-32.8); MEAN CORPUSCULAR HGB CONC 31 g/dL (32.3-35.6); MEAN CORPUSCULAR VOLUME 79.3 fL (75.5-95.3); MONOCYTES # (AUTO) 0.8 K/uL (0.1-1.30); MONOCYTES % (AUTO) 8.4 % (0.0-11.0); NEUTROPHILS # (AUTO) 6.7 K/uL (1.8-8.9); NEUTROPHILS % (AUTO) 73.1 % (38.5-71.5); PLATELET COUNT (AUTO) 189 K/uL (179-408); RED BLOOD CELL COUNT(AUTO) 3.99 MIL/uL (3.63-4.92); RED CELL DISTRIBUTION WIDTH 18.6 % (12.3-17.7); WHITE BLOOD COUNT (AUTO) 9.1 K/uL (3.8-11.8)
[2022-12-28 07:24] LABS: DIFFERENTIAL COMMENT 1
[2022-12-28 07:30] LABS: CREATININE 0.8 mg/dL (0.6-1.3); POTASSIUM 3.5 mmol/L (3.5-5.1)
[2022-12-28] MEDS: ACETAMINOPHEN 650 MG/20.3 ML LIQUID UDC GT SCH ×2 (08:58→20:30)
[2022-12-28] MEDS: REMEDY ESSENTIAL ZINC PASTE 113 GM TP SCH ×2 (08:59→21:39)
[2022-12-28] MEDS: ACIDOPHILUS/BULGARICUS CHEW TAB GT SCH ×2 (08:59→21:36)
[2022-12-28] MEDS: NITROFURANTOIN MACROCRYSTAL 100 MG CAPSULE GT SCH (08:59)
[2022-12-28] MEDS: HYDROGEN PEROXIDE 3% 118 ML BOTTLE TP SCH ×2 (08:59→21:32)
[2022-12-28] MEDS: VITAMINS A AND D OINT 42 GM TUBE TP SCH ×2 (09:00→21:39)
[2022-12-28] MEDS: SILVER SULFADIAZINE 1% CREAM 50 GM TP SCH ×4 (09:00→21:39)
[2022-12-28] MEDS: GLUCERNA 1.2 1000ML LIQUID GT PRN (11:15)
[2022-12-28] MEDS: SERTRALINE HCL 50 MG TABLET GT SCH (11:19)
[2022-12-28] MEDS: CEFEPIME HCL 1 G in IV DEXTROSE 5% 50 ML IV SCH (12:30)
[2022-12-28] MEDS: APIXABAN 2.5 MG TABLET GT SCH (21:35)
[2022-12-28] MEDS: MULTIVIT, IRON, MIN NO. 8, FA TABLET GT SCH (21:38)
[2022-12-28] MEDS: ESTROGENS,CONJU VAGINAL CREAM 42.5 GM TUBE VG SCH (21:39)
[2022-12-28] MEDS: SIMVASTATIN 10 MG TABLET GT SCH (21:39)
[2022-12-28] MEDS: ASCORBIC ACID 500 MG TABLET GT SCH (21:39)
[2022-12-28] MEDS: TEMAZEPAM 7.5 MG CAPSULE GT PRN (21:42)
[2022-12-29] VITALS (12 sets, daily range): TEMP 99.3–100.9; O2SAT 98–99
[2022-12-29] MEDS: IPRATROPIUM BROMIDE 0.5 MG/2.5 ML NEBU NEB SCH ×7 (00:12→23:20)
[2022-12-29] MEDS: ALBUTEROL SULFATE 2.5 MG/3 ML NEBU NEB SCH ×7 (00:12→23:20)
[2022-12-29] MEDS: OMEGA-3 FATTY ACIDS/FISH OIL CAPSULE GT SCH ×2 (05:11→17:24)
[2022-12-29] MEDS: OMEPRAZOLE 20 MG CAPSULE.DR GT SCH (05:11)
[2022-12-29] MEDS: BACLOFEN 10 MG TABLET GT SCH ×4 (05:11→17:24)
[2022-12-29] MEDS: MIDODRINE HCL 5 MG TABLET GT SCH ×3 (05:11→22:00)
[2022-12-29] MEDS: ARGININE/GLUTAMINE/CALCIUM BMB 1 EACH POWD.PACK GT SCH ×2 (05:11→17:24)
[2022-12-29] MEDS: PROTEIN SUPPLEMENT (PROSTAT) 30 ML LIQUID GT SCH ×3 (05:12→22:46)
[2022-12-29] MEDS: NITROFURANTOIN MACROCRYSTAL 100 MG CAPSULE GT SCH (08:32)
[2022-12-29] MEDS: ACIDOPHILUS/BULGARICUS CHEW TAB GT SCH ×2 (08:32→21:00)
[2022-12-29] MEDS: REMEDY ESSENTIAL ZINC PASTE 113 GM TP SCH ×2 (08:32→21:00)
[2022-12-29] MEDS: VITAMINS A AND D OINT 42 GM TUBE TP SCH ×2 (08:32→21:00)
[2022-12-29] MEDS: SILVER SULFADIAZINE 1% CREAM 50 GM TP SCH ×4 (08:32→21:00)
[2022-12-29] MEDS: ACETAMINOPHEN 650 MG/20.3 ML LIQUID UDC GT SCH ×2 (08:32→20:30)
[2022-12-29] MEDS: APIXABAN 2.5 MG TABLET GT SCH ×2 (08:37→21:00)
[2022-12-29] MEDS: HYDROGEN PEROXIDE 3% 118 ML BOTTLE TP SCH ×2 (09:17→21:00)
[2022-12-29] MEDS: SERTRALINE HCL 50 MG TABLET GT SCH (11:42)
[2022-12-29] MEDS: CEFEPIME HCL 1 G in IV DEXTROSE 5% 50 ML IV SCH (12:44)
[2022-12-29] MEDS: ESTROGENS,CONJU VAGINAL CREAM 42.5 GM TUBE VG SCH (21:00)
[2022-12-29] MEDS: MULTIVIT, IRON, MIN NO. 8, FA TABLET GT SCH (21:00)
[2022-12-29] MEDS: ASCORBIC ACID 500 MG TABLET GT SCH (21:00)
[2022-12-29] MEDS: SIMVASTATIN 10 MG TABLET GT SCH (21:00)
[2022-12-30] VITALS (14 sets, daily range): TEMP 98.6–100.6; O2SAT 98–99
[2022-12-30] MEDS: IPRATROPIUM BROMIDE 0.5 MG/2.5 ML NEBU NEB SCH ×5 (03:50→19:30)
[2022-12-30] MEDS: ALBUTEROL SULFATE 2.5 MG/3 ML NEBU NEB SCH ×5 (03:50→19:30)
[2022-12-30] MEDS: MIDODRINE HCL 5 MG TABLET GT SCH ×3 (06:00→22:38)
[2022-12-30] MEDS: ARGININE/GLUTAMINE/CALCIUM BMB 1 EACH POWD.PACK GT SCH ×2 (06:11→17:53)
[2022-12-30] MEDS: BACLOFEN 10 MG TABLET GT SCH ×5 (06:11→23:51)
[2022-12-30] MEDS: OMEPRAZOLE 20 MG CAPSULE.DR GT SCH (06:11)
[2022-12-30] MEDS: OMEGA-3 FATTY ACIDS/FISH OIL CAPSULE GT SCH ×2 (06:11→17:53)
[2022-12-30] MEDS: PROTEIN SUPPLEMENT (PROSTAT) 30 ML LIQUID GT SCH ×3 (06:11→22:36)
[2022-12-30] MEDS: HYDROGEN PEROXIDE 3% 118 ML BOTTLE TP SCH ×2 (08:14→20:55)
[2022-12-30] MEDS: ACETAMINOPHEN 650 MG/20.3 ML LIQUID UDC GT SCH ×2 (08:30→20:30)
[2022-12-30] MEDS: ACIDOPHILUS/BULGARICUS CHEW TAB GT SCH ×2 (09:50→21:00)
[2022-12-30] MEDS: NITROFURANTOIN MACROCRYSTAL 100 MG CAPSULE GT SCH (09:50)
[2022-12-30] MEDS: APIXABAN 2.5 MG TABLET GT SCH ×2 (09:50→21:00)
[2022-12-30] MEDS: VITAMINS A AND D OINT 42 GM TUBE TP SCH ×2 (09:52→21:00)
[2022-12-30] MEDS: REMEDY ESSENTIAL ZINC PASTE 113 GM TP SCH ×2 (09:52→21:00)
[2022-12-30] MEDS: SILVER SULFADIAZINE 1% CREAM 50 GM TP SCH ×4 (09:52→21:00)
[2022-12-30] MEDS: SERTRALINE HCL 50 MG TABLET GT SCH (12:00)
[2022-12-30] MEDS: CEFEPIME HCL 1 G in IV DEXTROSE 5% 50 ML IV SCH (13:09)
[2022-12-30] MEDS: MULTIVIT, IRON, MIN NO. 8, FA TABLET GT SCH (21:00)
[2022-12-30] MEDS: SIMVASTATIN 10 MG TABLET GT SCH (21:00)
[2022-12-30] MEDS: ASCORBIC ACID 500 MG TABLET GT SCH (21:00)
[2022-12-30] MEDS: ESTROGENS,CONJU VAGINAL CREAM 42.5 GM TUBE VG SCH (21:00)
[2022-12-31] VITALS (17 sets, daily range): TEMP 99–100; O2SAT 98–99
[2022-12-31] MEDS: ALBUTEROL SULFATE 2.5 MG/3 ML NEBU NEB SCH ×7 (00:17→23:00)
[2022-12-31] MEDS: IPRATROPIUM BROMIDE 0.5 MG/2.5 ML NEBU NEB SCH ×7 (00:17→23:00)
[2022-12-31] MEDS: MIDODRINE HCL 5 MG TABLET GT SCH ×3 (06:00→20:21)
[2022-12-31] MEDS: PROTEIN SUPPLEMENT (PROSTAT) 30 ML LIQUID GT SCH ×3 (06:13→22:00)
[2022-12-31] MEDS: ARGININE/GLUTAMINE/CALCIUM BMB 1 EACH POWD.PACK GT SCH ×2 (06:13→18:03)
[2022-12-31] MEDS: OMEGA-3 FATTY ACIDS/FISH OIL CAPSULE GT SCH ×2 (06:13→18:04)
[2022-12-31] MEDS: BACLOFEN 10 MG TABLET GT SCH ×3 (06:14→18:03)
[2022-12-31] MEDS: OMEPRAZOLE 20 MG CAPSULE.DR GT SCH (06:15)
[2022-12-31] MEDS: HYDROGEN PEROXIDE 3% 118 ML BOTTLE TP SCH ×2 (08:26→20:36)
[2022-12-31] MEDS: APIXABAN 2.5 MG TABLET GT SCH ×2 (09:02→20:14)
[2022-12-31] MEDS: ACIDOPHILUS/BULGARICUS CHEW TAB GT SCH ×2 (09:03→20:40)
[2022-12-31] MEDS: SILVER SULFADIAZINE 1% CREAM 50 GM TP SCH ×4 (09:04→20:41)
[2022-12-31] MEDS: REMEDY ESSENTIAL ZINC PASTE 113 GM TP SCH ×2 (09:04→20:40)
[2022-12-31] MEDS: VITAMINS A AND D OINT 42 GM TUBE TP SCH ×2 (09:04→20:41)
[2022-12-31] MEDS: NITROFURANTOIN MACROCRYSTAL 100 MG CAPSULE GT SCH (09:05)
[2022-12-31] MEDS: ACETAMINOPHEN 650 MG/20.3 ML LIQUID UDC GT SCH ×2 (09:07→20:28)
[2022-12-31] MEDS: SERTRALINE HCL 50 MG TABLET GT SCH (12:18)
[2022-12-31] MEDS: ASCORBIC ACID 500 MG TABLET GT SCH (20:40)
[2022-12-31] MEDS: MULTIVIT, IRON, MIN NO. 8, FA TABLET GT SCH (20:40)
[2022-12-31] MEDS: SIMVASTATIN 10 MG TABLET GT SCH (20:40)
[2022-12-31] MEDS: ESTROGENS,CONJU VAGINAL CREAM 42.5 GM TUBE VG SCH (20:41)
[2023-01-01] VITALS (16 sets, daily range): TEMP 98–99.6; O2SAT 98–99
[2023-01-01] MEDS: IPRATROPIUM BROMIDE 0.5 MG/2.5 ML NEBU NEB SCH ×5 (03:11→20:08)
[2023-01-01] MEDS: ALBUTEROL SULFATE 2.5 MG/3 ML NEBU NEB SCH ×5 (03:11→20:08)
[2023-01-01] MEDS: OMEPRAZOLE 20 MG CAPSULE.DR GT SCH (05:19)
[2023-01-01] MEDS: OMEGA-3 FATTY ACIDS/FISH OIL CAPSULE GT SCH ×2 (05:19→17:47)
[2023-01-01] MEDS: BACLOFEN 10 MG TABLET GT SCH ×4 (05:19→17:47)
[2023-01-01] MEDS: ARGININE/GLUTAMINE/CALCIUM BMB 1 EACH POWD.PACK GT SCH ×2 (05:19→17:47)
[2023-01-01] MEDS: PROTEIN SUPPLEMENT (PROSTAT) 30 ML LIQUID GT SCH ×3 (05:20→21:04)
[2023-01-01] MEDS: MIDODRINE HCL 5 MG TABLET GT SCH ×3 (05:20→21:04)
[2023-01-01] MEDS: SILVER SULFADIAZINE 1% CREAM 50 GM TP SCH ×4 (08:19→21:03)
[2023-01-01] MEDS: VITAMINS A AND D OINT 42 GM TUBE TP SCH ×2 (08:19→21:03)
[2023-01-01] MEDS: ACIDOPHILUS/BULGARICUS CHEW TAB GT SCH ×2 (08:19→21:03)
[2023-01-01] MEDS: REMEDY ESSENTIAL ZINC PASTE 113 GM TP SCH ×2 (08:19→21:03)
[2023-01-01] MEDS: APIXABAN 2.5 MG TABLET GT SCH ×2 (08:19→21:01)
[2023-01-01] MEDS: NITROFURANTOIN MACROCRYSTAL 100 MG CAPSULE GT SCH (08:19)
[2023-01-01] MEDS: HYDROGEN PEROXIDE 3% 118 ML BOTTLE TP SCH ×2 (08:39→21:03)
[2023-01-01] MEDS: ACETAMINOPHEN 650 MG/20.3 ML LIQUID UDC GT SCH ×2 (08:49→21:03)
[2023-01-01] MEDS: SERTRALINE HCL 50 MG TABLET GT SCH (12:06)
[2023-01-01] MEDS: SIMVASTATIN 10 MG TABLET GT SCH (21:03)
[2023-01-01] MEDS: ESTROGENS,CONJU VAGINAL CREAM 42.5 GM TUBE VG SCH (21:03)
[2023-01-01] MEDS: ASCORBIC ACID 500 MG TABLET GT SCH (21:03)
[2023-01-01] MEDS: MULTIVIT, IRON, MIN NO. 8, FA TABLET GT SCH (21:03)
[2023-01-02] VITALS (15 sets, daily range): TEMP 98.6–99; O2SAT 98–99
[2023-01-02] MEDS: IPRATROPIUM BROMIDE 0.5 MG/2.5 ML NEBU NEB SCH ×7 (00:13→23:27)
[2023-01-02] MEDS: ALBUTEROL SULFATE 2.5 MG/3 ML NEBU NEB SCH ×7 (00:13→23:27)
[2023-01-02] MEDS: BACLOFEN 10 MG TABLET GT SCH ×5 (00:39→23:42)
[2023-01-02] MEDS: MIDODRINE HCL 5 MG TABLET GT SCH ×3 (04:05→22:52)
[2023-01-02] MEDS: OMEGA-3 FATTY ACIDS/FISH OIL CAPSULE GT SCH ×2 (05:17→17:42)
[2023-01-02] MEDS: OMEPRAZOLE 20 MG CAPSULE.DR GT SCH (05:17)
[2023-01-02] MEDS: PROTEIN SUPPLEMENT (PROSTAT) 30 ML LIQUID GT SCH ×3 (05:17→22:52)
[2023-01-02] MEDS: ARGININE/GLUTAMINE/CALCIUM BMB 1 EACH POWD.PACK GT SCH ×2 (05:17→17:42)
[2023-01-02 06:40] LABS: BASOPHILS # (AUTO) 0.1 K/UL (0.0-0.2); EOSINOPHILS # (AUTO) 0.5 K/uL (0.0-0.7); EOSINOPHILS % (AUTO) 4.3 % (0.0-7.0); HEMATOCRIT 33.6 % (31.2-41.9); HEMOGLOBIN 10.2 g/dL (10.9-14.3); LYMPHOCYTES # (AUTO) 2.3 K/uL (0.8-4.8); LYMPHOCYTES % (AUTO) 20.7 % (20.5-51.5); MEAN CORPUSCULAR HEMOGLOBIN 23.9 uug (24.7-32.8); MEAN CORPUSCULAR HGB CONC 30 g/dL (32.3-35.6); MEAN CORPUSCULAR VOLUME 79.1 fL (75.5-95.3); MONOCYTES # (AUTO) 0.8 K/uL (0.1-1.30); MONOCYTES % (AUTO) 7.1 % (0.0-11.0); NEUTROPHILS # (AUTO) 7.5 K/uL (1.8-8.9); NEUTROPHILS % (AUTO) 66.9 % (38.5-71.5); PLATELET COUNT (AUTO) 335 K/uL (179-408); RED BLOOD CELL COUNT(AUTO) 4.24 MIL/uL (3.63-4.92); RED CELL DISTRIBUTION WIDTH 18.8 % (12.3-17.7); WHITE BLOOD COUNT (AUTO) 11.2 K/uL (3.8-11.8)
[2023-01-02 06:41] LABS: DIFFERENTIAL COMMENT 1
[2023-01-02 07:13] LABS: CALCIUM 9.5 mg/dL (8.5-10.1); CREATININE 0.9 mg/dL (0.6-1.3); POTASSIUM 3.8 mmol/L (3.5-5.1)
[2023-01-02] MEDS: ACETAMINOPHEN 650 MG/20.3 ML LIQUID UDC GT SCH ×2 (08:46→21:40)
[2023-01-02] MEDS: APIXABAN 2.5 MG TABLET GT SCH ×2 (08:47→21:40)
[2023-01-02] MEDS: ACIDOPHILUS/BULGARICUS CHEW TAB GT SCH ×2 (08:48→21:40)
[2023-01-02] MEDS: NITROFURANTOIN MACROCRYSTAL 100 MG CAPSULE GT SCH (08:49)
[2023-01-02] MEDS: REMEDY ESSENTIAL ZINC PASTE 113 GM TP SCH ×2 (08:49→21:40)
[2023-01-02] MEDS: SILVER SULFADIAZINE 1% CREAM 50 GM TP SCH ×4 (08:49→21:40)
[2023-01-02] MEDS: VITAMINS A AND D OINT 42 GM TUBE TP SCH ×2 (08:49→21:40)
[2023-01-02] MEDS: HYDROGEN PEROXIDE 3% 118 ML BOTTLE TP SCH ×2 (09:36→19:33)
[2023-01-02] MEDS: SERTRALINE HCL 50 MG TABLET GT SCH (12:00)
[2023-01-02] MEDS: ASCORBIC ACID 500 MG TABLET GT SCH (21:40)
[2023-01-02] MEDS: SIMVASTATIN 10 MG TABLET GT SCH (21:40)
[2023-01-02] MEDS: ESTROGENS,CONJU VAGINAL CREAM 42.5 GM TUBE VG SCH (21:40)
[2023-01-02] MEDS: MULTIVIT, IRON, MIN NO. 8, FA TABLET GT SCH (21:40)
[2023-01-02] MEDS: TEMAZEPAM 7.5 MG CAPSULE GT PRN (23:08)
[2023-01-03] VITALS (14 sets, daily range): TEMP 98.8–99.6; O2SAT 98–99
[2023-01-03] MEDS: IPRATROPIUM BROMIDE 0.5 MG/2.5 ML NEBU NEB SCH ×6 (03:34→23:50)
[2023-01-03] MEDS: ALBUTEROL SULFATE 2.5 MG/3 ML NEBU NEB SCH ×6 (03:34→23:50)
[2023-01-03] MEDS: OMEPRAZOLE 20 MG CAPSULE.DR GT SCH (06:36)
[2023-01-03] MEDS: BACLOFEN 10 MG TABLET GT SCH ×3 (06:36→18:20)
[2023-01-03] MEDS: OMEGA-3 FATTY ACIDS/FISH OIL CAPSULE GT SCH ×2 (06:36→18:22)
[2023-01-03] MEDS: ARGININE/GLUTAMINE/CALCIUM BMB 1 EACH POWD.PACK GT SCH ×2 (06:36→18:20)
[2023-01-03] MEDS: MIDODRINE HCL 5 MG TABLET GT SCH ×3 (06:37→21:44)
[2023-01-03] MEDS: PROTEIN SUPPLEMENT (PROSTAT) 30 ML LIQUID GT SCH ×3 (06:37→21:44)
[2023-01-03] MEDS: HYDROGEN PEROXIDE 3% 118 ML BOTTLE TP SCH ×2 (07:50→21:00)
[2023-01-03] MEDS: ACETAMINOPHEN 650 MG/20.3 ML LIQUID UDC GT SCH ×2 (08:51→20:30)
[2023-01-03] MEDS: APIXABAN 2.5 MG TABLET GT SCH ×2 (08:52→21:41)
[2023-01-03] MEDS: NITROFURANTOIN MACROCRYSTAL 100 MG CAPSULE GT SCH (08:52)
[2023-01-03] MEDS: REMEDY ESSENTIAL ZINC PASTE 113 GM TP SCH ×2 (08:52→21:43)
[2023-01-03] MEDS: VITAMINS A AND D OINT 42 GM TUBE TP SCH ×2 (08:52→21:43)
[2023-01-03] MEDS: SILVER SULFADIAZINE 1% CREAM 50 GM TP SCH ×4 (08:52→21:43)
[2023-01-03] MEDS: ACIDOPHILUS/BULGARICUS CHEW TAB GT SCH ×2 (08:52→21:41)
[2023-01-03] MEDS: SERTRALINE HCL 50 MG TABLET GT SCH (12:00)
[2023-01-03] MEDS: FOSFOMYCIN TROMETHAMINE 3 GM PACKET GT SCH (21:42)
[2023-01-03] MEDS: ASCORBIC ACID 500 MG TABLET GT SCH (21:42)
[2023-01-03] MEDS: MULTIVIT, IRON, MIN NO. 8, FA TABLET GT SCH (21:42)
[2023-01-03] MEDS: SIMVASTATIN 10 MG TABLET GT SCH (21:42)
[2023-01-03] MEDS: ESTROGENS,CONJU VAGINAL CREAM 42.5 GM TUBE VG SCH (21:43)
[2023-01-03] MEDS: TEMAZEPAM 7.5 MG CAPSULE GT PRN (22:30)
[2023-01-04] VITALS (12 sets, daily range): TEMP 97.6–98.6; O2SAT 98–99
[2023-01-04] MEDS: BACLOFEN 10 MG TABLET GT SCH ×5 (00:05→23:41)
[2023-01-04] MEDS: ALBUTEROL SULFATE 2.5 MG/3 ML NEBU NEB SCH ×5 (03:46→19:40)
[2023-01-04] MEDS: IPRATROPIUM BROMIDE 0.5 MG/2.5 ML NEBU NEB SCH ×5 (03:46→19:40)
[2023-01-04] MEDS: OMEGA-3 FATTY ACIDS/FISH OIL CAPSULE GT SCH ×2 (05:14→17:28)
[2023-01-04] MEDS: ARGININE/GLUTAMINE/CALCIUM BMB 1 EACH POWD.PACK GT SCH ×2 (05:14→17:28)
[2023-01-04] MEDS: OMEPRAZOLE 20 MG CAPSULE.DR GT SCH (05:15)
[2023-01-04] MEDS: MIDODRINE HCL 5 MG TABLET GT SCH ×3 (05:15→21:35)
[2023-01-04] MEDS: PROTEIN SUPPLEMENT (PROSTAT) 30 ML LIQUID GT SCH ×3 (05:15→21:36)
[2023-01-04] MEDS: ACIDOPHILUS/BULGARICUS CHEW TAB GT SCH ×2 (08:08→21:33)
[2023-01-04] MEDS: ACETAMINOPHEN 650 MG/20.3 ML LIQUID UDC GT SCH ×2 (08:08→20:30)
[2023-01-04] MEDS: NITROFURANTOIN MACROCRYSTAL 100 MG CAPSULE GT SCH (08:09)
[2023-01-04] MEDS: REMEDY ESSENTIAL ZINC PASTE 113 GM TP SCH ×2 (08:09→21:35)
[2023-01-04] MEDS: SILVER SULFADIAZINE 1% CREAM 50 GM TP SCH ×4 (08:10→21:35)
[2023-01-04] MEDS: VITAMINS A AND D OINT 42 GM TUBE TP SCH ×2 (08:11→21:35)
[2023-01-04] MEDS: APIXABAN 2.5 MG TABLET GT SCH ×2 (08:28→21:33)
[2023-01-04] MEDS: HYDROGEN PEROXIDE 3% 118 ML BOTTLE TP SCH ×2 (09:35→20:51)
[2023-01-04] MEDS: SERTRALINE HCL 50 MG TABLET GT SCH (12:21)
[2023-01-04] MEDS: GLUCERNA 1.2 1000ML LIQUID GT PRN (17:34)
[2023-01-04] MEDS: MULTIVIT, IRON, MIN NO. 8, FA TABLET GT SCH (21:33)
[2023-01-04] MEDS: ASCORBIC ACID 500 MG TABLET GT SCH (21:35)
[2023-01-04] MEDS: ESTROGENS,CONJU VAGINAL CREAM 42.5 GM TUBE VG SCH (21:35)
[2023-01-04] MEDS: SIMVASTATIN 10 MG TABLET GT SCH (21:35)
[2023-01-05] VITALS (16 sets, daily range): TEMP 97.7–98.1; O2SAT 98–99
[2023-01-05] MEDS: IPRATROPIUM BROMIDE 0.5 MG/2.5 ML NEBU NEB SCH ×7 (00:03→23:08)
[2023-01-05] MEDS: ALBUTEROL SULFATE 2.5 MG/3 ML NEBU NEB SCH ×7 (00:03→23:08)
[2023-01-05] MEDS: OMEPRAZOLE 20 MG CAPSULE.DR GT SCH (05:45)
[2023-01-05] MEDS: PROTEIN SUPPLEMENT (PROSTAT) 30 ML LIQUID GT SCH ×3 (05:45→21:29)
[2023-01-05] MEDS: BACLOFEN 10 MG TABLET GT SCH ×4 (05:45→23:00)
[2023-01-05] MEDS: OMEGA-3 FATTY ACIDS/FISH OIL CAPSULE GT SCH ×2 (05:45→17:48)
[2023-01-05] MEDS: ARGININE/GLUTAMINE/CALCIUM BMB 1 EACH POWD.PACK GT SCH ×2 (05:45→17:48)
[2023-01-05] MEDS: MIDODRINE HCL 5 MG TABLET GT SCH ×3 (05:46→21:29)
[2023-01-05] MEDS: ACETAMINOPHEN 650 MG/20.3 ML LIQUID UDC GT SCH ×2 (08:30→20:40)
[2023-01-05] MEDS: HYDROGEN PEROXIDE 3% 118 ML BOTTLE TP SCH ×2 (09:27→20:51)
[2023-01-05] MEDS: ACIDOPHILUS/BULGARICUS CHEW TAB GT SCH ×2 (09:41→20:41)
[2023-01-05] MEDS: NITROFURANTOIN MACROCRYSTAL 100 MG CAPSULE GT SCH (09:42)
[2023-01-05] MEDS: SILVER SULFADIAZINE 1% CREAM 50 GM TP SCH ×4 (09:42→20:41)
[2023-01-05] MEDS: VITAMINS A AND D OINT 42 GM TUBE TP SCH ×2 (09:42→20:41)
[2023-01-05] MEDS: REMEDY ESSENTIAL ZINC PASTE 113 GM TP SCH ×2 (09:42→20:41)
[2023-01-05] MEDS: APIXABAN 2.5 MG TABLET GT SCH ×2 (09:52→20:41)
[2023-01-05] MEDS: SERTRALINE HCL 50 MG TABLET GT SCH (12:21)
[2023-01-05] MEDS: GLUCERNA 1.2 1000ML LIQUID GT PRN (20:41)
[2023-01-05] MEDS: ASCORBIC ACID 500 MG TABLET GT SCH (20:41)
[2023-01-05] MEDS: ESTROGENS,CONJU VAGINAL CREAM 42.5 GM TUBE VG SCH (20:41)
[2023-01-05] MEDS: MULTIVIT, IRON, MIN NO. 8, FA TABLET GT SCH (20:41)
[2023-01-05] MEDS: SIMVASTATIN 10 MG TABLET GT SCH (20:41)
[2023-01-05] MEDS: TEMAZEPAM 7.5 MG CAPSULE GT PRN (22:03)
[2023-01-06] VITALS (13 sets, daily range): TEMP 98–98.9; O2SAT 98–99
[2023-01-06] MEDS: IPRATROPIUM BROMIDE 0.5 MG/2.5 ML NEBU NEB SCH ×6 (03:00→23:29)
[2023-01-06] MEDS: ALBUTEROL SULFATE 2.5 MG/3 ML NEBU NEB SCH ×6 (03:00→23:29)
[2023-01-06] MEDS: OMEGA-3 FATTY ACIDS/FISH OIL CAPSULE GT SCH ×2 (05:22→17:28)
[2023-01-06] MEDS: MIDODRINE HCL 5 MG TABLET GT SCH ×3 (05:22→22:05)
[2023-01-06] MEDS: BACLOFEN 10 MG TABLET GT SCH ×3 (05:22→17:28)
[2023-01-06] MEDS: OMEPRAZOLE 20 MG CAPSULE.DR GT SCH (05:22)
[2023-01-06] MEDS: ARGININE/GLUTAMINE/CALCIUM BMB 1 EACH POWD.PACK GT SCH ×2 (05:22→17:28)
[2023-01-06] MEDS: PROTEIN SUPPLEMENT (PROSTAT) 30 ML LIQUID GT SCH ×3 (05:23→22:05)
[2023-01-06] MEDS: ACETAMINOPHEN 650 MG/20.3 ML LIQUID UDC GT SCH ×2 (08:30→20:30)
[2023-01-06] MEDS: ACIDOPHILUS/BULGARICUS CHEW TAB GT SCH ×2 (09:33→20:47)
[2023-01-06] MEDS: NITROFURANTOIN MACROCRYSTAL 100 MG CAPSULE GT SCH (09:34)
[2023-01-06] MEDS: SILVER SULFADIAZINE 1% CREAM 50 GM TP SCH ×4 (09:35→20:53)
[2023-01-06] MEDS: HYDROGEN PEROXIDE 3% 118 ML BOTTLE TP SCH ×2 (09:35→19:08)
[2023-01-06] MEDS: REMEDY ESSENTIAL ZINC PASTE 113 GM TP SCH ×2 (09:35→20:47)
[2023-01-06] MEDS: VITAMINS A AND D OINT 42 GM TUBE TP SCH ×2 (09:35→20:53)
[2023-01-06] MEDS: APIXABAN 2.5 MG TABLET GT SCH ×2 (09:36→21:00)
[2023-01-06] MEDS: SERTRALINE HCL 25 MG TABLET GT SCH (12:23)
[2023-01-06] MEDS: SIMVASTATIN 10 MG TABLET GT SCH (20:47)
[2023-01-06] MEDS: ASCORBIC ACID 500 MG TABLET GT SCH (20:47)
[2023-01-06] MEDS: MULTIVIT, IRON, MIN NO. 8, FA TABLET GT SCH (20:47)
[2023-01-06] MEDS: ESTROGENS,CONJU VAGINAL CREAM 42.5 GM TUBE VG SCH (20:53)
[2023-01-07] VITALS (16 sets, daily range): BP systolic 146; BP diastolic 68; TEMP 97.6–100; O2SAT 97–99
[2023-01-07] MEDS: BACLOFEN 10 MG TABLET GT SCH ×5 (00:14→23:08)
[2023-01-07] MEDS: GLUCERNA 1.2 1000ML LIQUID GT PRN ×2 (01:11→23:07)
[2023-01-07] MEDS: IPRATROPIUM BROMIDE 0.5 MG/2.5 ML NEBU NEB SCH ×6 (04:15→23:32)
[2023-01-07] MEDS: ALBUTEROL SULFATE 2.5 MG/3 ML NEBU NEB SCH ×6 (04:15→23:32)
[2023-01-07] MEDS: OMEGA-3 FATTY ACIDS/FISH OIL CAPSULE GT SCH ×2 (05:08→17:46)
[2023-01-07] MEDS: MIDODRINE HCL 5 MG TABLET GT SCH ×3 (05:08→22:28)
[2023-01-07] MEDS: OMEPRAZOLE 20 MG CAPSULE.DR GT SCH (05:08)
[2023-01-07] MEDS: ARGININE/GLUTAMINE/CALCIUM BMB 1 EACH POWD.PACK GT SCH ×2 (05:08→17:46)
[2023-01-07] MEDS: PROTEIN SUPPLEMENT (PROSTAT) 30 ML LIQUID GT SCH ×3 (05:08→22:28)
[2023-01-07] MEDS: HYDROGEN PEROXIDE 3% 118 ML BOTTLE TP SCH ×2 (07:11→19:25)
[2023-01-07] MEDS: ACETAMINOPHEN 650 MG/20.3 ML LIQUID UDC GT SCH ×2 (08:32→20:42)
[2023-01-07] MEDS: APIXABAN 2.5 MG TABLET GT SCH ×2 (08:33→21:00)
[2023-01-07] MEDS: ACIDOPHILUS/BULGARICUS CHEW TAB GT SCH ×2 (08:33→20:42)
[2023-01-07] MEDS: VITAMINS A AND D OINT 42 GM TUBE TP SCH ×2 (08:34→20:42)
[2023-01-07] MEDS: REMEDY ESSENTIAL ZINC PASTE 113 GM TP SCH ×2 (08:34→20:42)
[2023-01-07] MEDS: SILVER SULFADIAZINE 1% CREAM 50 GM TP SCH ×4 (08:34→20:42)
[2023-01-07] MEDS: NITROFURANTOIN MACROCRYSTAL 100 MG CAPSULE GT SCH (08:34)
[2023-01-07] MEDS: SERTRALINE HCL 25 MG TABLET GT SCH (11:56)
[2023-01-07] MEDS: ESTROGENS,CONJU VAGINAL CREAM 42.5 GM TUBE VG SCH (20:42)
[2023-01-07] MEDS: MULTIVIT, IRON, MIN NO. 8, FA TABLET GT SCH (20:42)
[2023-01-07] MEDS: SIMVASTATIN 10 MG TABLET GT SCH (20:42)
[2023-01-07] MEDS: ASCORBIC ACID 500 MG TABLET GT SCH (20:42)
[2023-01-08] VITALS (16 sets, daily range): TEMP 97.7–98.4; O2SAT 95–99
[2023-01-08] MEDS: IPRATROPIUM BROMIDE 0.5 MG/2.5 ML NEBU NEB SCH ×5 (03:33→19:09)
[2023-01-08] MEDS: ALBUTEROL SULFATE 2.5 MG/3 ML NEBU NEB SCH ×5 (03:34→19:09)
[2023-01-08] MEDS: HYDROCODONE/APAP 10-325 MG TABLET GT PRN ×2 (04:15→17:34)
[2023-01-08] MEDS: OMEGA-3 FATTY ACIDS/FISH OIL CAPSULE GT SCH ×2 (05:27→17:33)
[2023-01-08] MEDS: PROTEIN SUPPLEMENT (PROSTAT) 30 ML LIQUID GT SCH ×3 (05:27→22:02)
[2023-01-08] MEDS: MIDODRINE HCL 5 MG TABLET GT SCH ×3 (05:27→21:56)
[2023-01-08] MEDS: OMEPRAZOLE 20 MG CAPSULE.DR GT SCH (05:27)
[2023-01-08] MEDS: ARGININE/GLUTAMINE/CALCIUM BMB 1 EACH POWD.PACK GT SCH ×2 (05:27→17:33)
[2023-01-08] MEDS: BACLOFEN 10 MG TABLET GT SCH ×3 (05:27→17:33)
[2023-01-08] MEDS: APIXABAN 2.5 MG TABLET GT SCH ×2 (08:44→21:50)
[2023-01-08] MEDS: ACIDOPHILUS/BULGARICUS CHEW TAB GT SCH ×2 (08:44→21:50)
[2023-01-08] MEDS: ACETAMINOPHEN 650 MG/20.3 ML LIQUID UDC GT SCH ×2 (08:44→20:30)
[2023-01-08] MEDS: SILVER SULFADIAZINE 1% CREAM 50 GM TP SCH ×4 (08:45→21:53)
[2023-01-08] MEDS: REMEDY ESSENTIAL ZINC PASTE 113 GM TP SCH ×2 (08:45→21:52)
[2023-01-08] MEDS: NITROFURANTOIN MACROCRYSTAL 100 MG CAPSULE GT SCH (08:45)
[2023-01-08] MEDS: VITAMINS A AND D 5 GM UD PKT TP SCH ×2 (08:45→21:53)
[2023-01-08] MEDS: HYDROGEN PEROXIDE 3% 118 ML BOTTLE TP SCH ×2 (09:47→22:03)
[2023-01-08] MEDS: SERTRALINE HCL 25 MG TABLET GT SCH (12:12)
[2023-01-08] MEDS: MULTIVIT, IRON, MIN NO. 8, FA TABLET GT SCH (21:51)
[2023-01-08] MEDS: ASCORBIC ACID 500 MG TABLET GT SCH (21:51)
[2023-01-08] MEDS: SIMVASTATIN 10 MG TABLET GT SCH (21:52)
[2023-01-08] MEDS: ESTROGENS,CONJU VAGINAL CREAM 42.5 GM TUBE VG SCH (21:53)
[2023-01-09] VITALS (14 sets, daily range): TEMP 98.7–98.8; O2SAT 96–99
[2023-01-09] MEDS: IPRATROPIUM BROMIDE 0.5 MG/2.5 ML NEBU NEB SCH ×7 (00:13→23:18)
[2023-01-09] MEDS: ALBUTEROL SULFATE 2.5 MG/3 ML NEBU NEB SCH ×7 (00:13→23:18)
[2023-01-09] MEDS: BACLOFEN 10 MG TABLET GT SCH ×4 (00:15→17:11)
[2023-01-09] MEDS: OMEGA-3 FATTY ACIDS/FISH OIL CAPSULE GT SCH ×2 (06:11→17:11)
[2023-01-09] MEDS: OMEPRAZOLE 20 MG CAPSULE.DR GT SCH (06:15)
[2023-01-09] MEDS: PROTEIN SUPPLEMENT (PROSTAT) 30 ML LIQUID GT SCH ×3 (06:16→21:10)
[2023-01-09] MEDS: MIDODRINE HCL 5 MG TABLET GT SCH ×3 (06:16→21:09)
[2023-01-09] MEDS: ARGININE/GLUTAMINE/CALCIUM BMB 1 EACH POWD.PACK GT SCH ×2 (06:26→17:11)
[2023-01-09] MEDS: ACETAMINOPHEN 650 MG/20.3 ML LIQUID UDC GT SCH ×2 (09:02→20:40)
[2023-01-09] MEDS: APIXABAN 2.5 MG TABLET GT SCH ×2 (09:05→20:56)
[2023-01-09] MEDS: ACIDOPHILUS/BULGARICUS CHEW TAB GT SCH ×2 (09:05→20:45)
[2023-01-09] MEDS: VITAMINS A AND D 5 GM UD PKT TP SCH ×2 (09:06→20:49)
[2023-01-09] MEDS: SILVER SULFADIAZINE 1% CREAM 50 GM TP SCH ×4 (09:06→20:49)
[2023-01-09] MEDS: REMEDY ESSENTIAL ZINC PASTE 113 GM TP SCH ×2 (09:06→20:49)
[2023-01-09] MEDS: NITROFURANTOIN MACROCRYSTAL 100 MG CAPSULE GT SCH (09:06)
[2023-01-09] MEDS: HYDROGEN PEROXIDE 3% 118 ML BOTTLE TP SCH ×2 (09:15→21:00)
[2023-01-09] MEDS: SERTRALINE HCL 25 MG TABLET GT SCH (11:55)
[2023-01-09] MEDS: MULTIVIT, IRON, MIN NO. 8, FA TABLET GT SCH (20:48)
[2023-01-09] MEDS: ESTROGENS,CONJU VAGINAL CREAM 42.5 GM TUBE VG SCH (20:49)
[2023-01-09] MEDS: SIMVASTATIN 10 MG TABLET GT SCH (20:49)
[2023-01-09] MEDS: ASCORBIC ACID 500 MG TABLET GT SCH (20:49)
[2023-01-09] MEDS: TEMAZEPAM 7.5 MG CAPSULE GT PRN (21:10)
[2023-01-10] VITALS (14 sets, daily range): TEMP 98.1–99.3; O2SAT 91–99
[2023-01-10] MEDS: BACLOFEN 10 MG TABLET GT SCH ×4 (00:28→17:15)
[2023-01-10] MEDS: IPRATROPIUM BROMIDE 0.5 MG/2.5 ML NEBU NEB SCH ×6 (03:23→23:12)
[2023-01-10] MEDS: ALBUTEROL SULFATE 2.5 MG/3 ML NEBU NEB SCH ×6 (03:23→23:13)
[2023-01-10] MEDS: GLUCERNA 1.2 1000ML LIQUID GT PRN (05:00)
[2023-01-10] MEDS: OMEGA-3 FATTY ACIDS/FISH OIL CAPSULE GT SCH ×2 (05:01→17:15)
[2023-01-10] MEDS: ARGININE/GLUTAMINE/CALCIUM BMB 1 EACH POWD.PACK GT SCH ×2 (05:02→17:15)
[2023-01-10] MEDS: PROTEIN SUPPLEMENT (PROSTAT) 30 ML LIQUID GT SCH ×3 (05:03→21:14)
[2023-01-10] MEDS: OMEPRAZOLE 20 MG CAPSULE.DR GT SCH (05:03)
[2023-01-10] MEDS: MIDODRINE HCL 5 MG TABLET GT SCH ×3 (05:05→21:14)
[2023-01-10] MEDS: HYDROGEN PEROXIDE 3% 118 ML BOTTLE TP SCH ×2 (08:24→23:12)
[2023-01-10] MEDS: ACETAMINOPHEN 650 MG/20.3 ML LIQUID UDC GT SCH ×2 (08:28→20:50)
[2023-01-10] MEDS: APIXABAN 2.5 MG TABLET GT SCH ×2 (08:31→20:51)
[2023-01-10] MEDS: NITROFURANTOIN MACROCRYSTAL 100 MG CAPSULE GT SCH (08:31)
[2023-01-10] MEDS: REMEDY ESSENTIAL ZINC PASTE 113 GM TP SCH ×2 (08:31→21:13)
[2023-01-10] MEDS: ACIDOPHILUS/BULGARICUS CHEW TAB GT SCH ×2 (08:31→20:52)
[2023-01-10] MEDS: SILVER SULFADIAZINE 1% CREAM 50 GM TP SCH ×4 (08:33→21:13)
[2023-01-10] MEDS: VITAMINS A AND D 5 GM UD PKT TP SCH ×2 (08:34→21:13)
[2023-01-10] MEDS: SERTRALINE HCL 25 MG TABLET GT SCH (12:41)
[2023-01-10] MEDS: FOSFOMYCIN TROMETHAMINE 3 GM PACKET GT SCH (20:55)
[2023-01-10] MEDS: MULTIVIT, IRON, MIN NO. 8, FA TABLET GT SCH (20:57)
[2023-01-10] MEDS: SIMVASTATIN 10 MG TABLET GT SCH (20:58)
[2023-01-10] MEDS: ASCORBIC ACID 500 MG TABLET GT SCH (20:58)
[2023-01-10] MEDS: ESTROGENS,CONJU VAGINAL CREAM 42.5 GM TUBE VG SCH (21:14)
[2023-01-11] VITALS (13 sets, daily range): TEMP 98.1; O2SAT 96–99
[2023-01-11] MEDS: BACLOFEN 10 MG TABLET GT SCH ×4 (00:59→17:25)
[2023-01-11] MEDS: ALBUTEROL SULFATE 2.5 MG/3 ML NEBU NEB SCH ×6 (03:28→23:15)
[2023-01-11] MEDS: IPRATROPIUM BROMIDE 0.5 MG/2.5 ML NEBU NEB SCH ×6 (03:28→23:15)
[2023-01-11] MEDS: HYDROCODONE/APAP 10-325 MG TABLET GT PRN (04:46)
[2023-01-11] MEDS: MIDODRINE HCL 5 MG TABLET GT SCH ×3 (05:23→21:59)
[2023-01-11] MEDS: OMEPRAZOLE 20 MG CAPSULE.DR GT SCH (05:23)
[2023-01-11] MEDS: PROTEIN SUPPLEMENT (PROSTAT) 30 ML LIQUID GT SCH ×3 (05:23→22:00)
[2023-01-11] MEDS: ARGININE/GLUTAMINE/CALCIUM BMB 1 EACH POWD.PACK GT SCH ×2 (05:23→17:25)
[2023-01-11] MEDS: OMEGA-3 FATTY ACIDS/FISH OIL CAPSULE GT SCH ×2 (05:23→17:25)
[2023-01-11] MEDS: HYDROGEN PEROXIDE 3% 118 ML BOTTLE TP SCH ×2 (07:24→21:31)
[2023-01-11] MEDS: ACETAMINOPHEN 650 MG/20.3 ML LIQUID UDC GT SCH ×2 (08:40→20:30)
[2023-01-11] MEDS: APIXABAN 2.5 MG TABLET GT SCH ×2 (08:41→21:58)
[2023-01-11] MEDS: NITROFURANTOIN MACROCRYSTAL 100 MG CAPSULE GT SCH (08:43)
[2023-01-11] MEDS: VITAMINS A AND D 5 GM UD PKT TP SCH ×2 (08:43→21:59)
[2023-01-11] MEDS: SILVER SULFADIAZINE 1% CREAM 50 GM TP SCH ×4 (08:43→21:59)
[2023-01-11] MEDS: REMEDY ESSENTIAL ZINC PASTE 113 GM TP SCH ×2 (08:43→21:59)
[2023-01-11] MEDS: ACIDOPHILUS/BULGARICUS CHEW TAB GT SCH ×2 (08:43→21:58)
[2023-01-11] MEDS: SERTRALINE HCL 25 MG TABLET GT SCH (12:22)
[2023-01-11] MEDS: GLUCERNA 1.2 1000ML LIQUID GT PRN (12:28)
[2023-01-11] MEDS: ESTROGENS,CONJU VAGINAL CREAM 42.5 GM TUBE VG SCH (21:59)
[2023-01-11] MEDS: MULTIVIT, IRON, MIN NO. 8, FA TABLET GT SCH (21:59)
[2023-01-11] MEDS: ASCORBIC ACID 500 MG TABLET GT SCH (21:59)
[2023-01-11] MEDS: SIMVASTATIN 10 MG TABLET GT SCH (21:59)
[2023-01-11] MEDS: TEMAZEPAM 7.5 MG CAPSULE GT PRN (22:03)
[2023-01-12] VITALS (12 sets, daily range): TEMP 97.6–99.7; O2SAT 96–99
[2023-01-12] MEDS: IPRATROPIUM BROMIDE 0.5 MG/2.5 ML NEBU NEB SCH ×6 (03:05→23:37)
[2023-01-12] MEDS: ALBUTEROL SULFATE 2.5 MG/3 ML NEBU NEB SCH ×6 (03:05→23:37)
[2023-01-12] MEDS: OMEPRAZOLE 20 MG CAPSULE.DR GT SCH (05:32)
[2023-01-12] MEDS: ARGININE/GLUTAMINE/CALCIUM BMB 1 EACH POWD.PACK GT SCH ×2 (05:32→17:02)
[2023-01-12] MEDS: BACLOFEN 10 MG TABLET GT SCH ×5 (05:32→23:11)
[2023-01-12] MEDS: OMEGA-3 FATTY ACIDS/FISH OIL CAPSULE GT SCH ×2 (05:32→17:02)
[2023-01-12] MEDS: MIDODRINE HCL 5 MG TABLET GT SCH ×3 (05:35→22:10)
[2023-01-12] MEDS: PROTEIN SUPPLEMENT (PROSTAT) 30 ML LIQUID GT SCH ×3 (05:35→22:10)
[2023-01-12] MEDS: ACETAMINOPHEN 650 MG/20.3 ML LIQUID UDC GT SCH ×2 (08:26→20:44)
[2023-01-12] MEDS: APIXABAN 2.5 MG TABLET GT SCH ×2 (08:27→21:58)
[2023-01-12] MEDS: NITROFURANTOIN MACROCRYSTAL 100 MG CAPSULE GT SCH (08:28)
[2023-01-12] MEDS: SILVER SULFADIAZINE 1% CREAM 50 GM TP SCH ×4 (08:28→20:45)
[2023-01-12] MEDS: ACIDOPHILUS/BULGARICUS CHEW TAB GT SCH ×2 (08:28→20:44)
[2023-01-12] MEDS: REMEDY ESSENTIAL ZINC PASTE 113 GM TP SCH ×2 (08:28→20:44)
[2023-01-12] MEDS: VITAMINS A AND D 5 GM UD PKT TP SCH ×2 (08:31→20:45)
[2023-01-12] MEDS: HYDROGEN PEROXIDE 3% 118 ML BOTTLE TP SCH ×2 (09:00→21:27)
[2023-01-12] MEDS: SERTRALINE HCL 25 MG TABLET GT SCH (12:49)
[2023-01-12] MEDS: SIMVASTATIN 10 MG TABLET GT SCH (20:44)
[2023-01-12] MEDS: MULTIVIT, IRON, MIN NO. 8, FA TABLET GT SCH (20:44)
[2023-01-12] MEDS: ASCORBIC ACID 500 MG TABLET GT SCH (20:44)
[2023-01-12] MEDS: ESTROGENS,CONJU VAGINAL CREAM 42.5 GM TUBE VG SCH (20:45)
[2023-01-12] MEDS: TEMAZEPAM 7.5 MG CAPSULE GT PRN (22:18)
[2023-01-13] VITALS (14 sets, daily range): TEMP 98–98.6; O2SAT 96–99
[2023-01-13] MEDS: ALBUTEROL SULFATE 2.5 MG/3 ML NEBU NEB SCH ×5 (03:18→19:20)
[2023-01-13] MEDS: IPRATROPIUM BROMIDE 0.5 MG/2.5 ML NEBU NEB SCH ×5 (03:18→19:20)
[2023-01-13] MEDS: HYDROCODONE/APAP 10-325 MG TABLET GT PRN (04:20)
[2023-01-13] MEDS: OMEGA-3 FATTY ACIDS/FISH OIL CAPSULE GT SCH ×2 (05:24→17:48)
[2023-01-13] MEDS: ARGININE/GLUTAMINE/CALCIUM BMB 1 EACH POWD.PACK GT SCH ×2 (05:24→17:48)
[2023-01-13] MEDS: MIDODRINE HCL 5 MG TABLET GT SCH ×3 (05:24→22:03)
[2023-01-13] MEDS: OMEPRAZOLE 20 MG CAPSULE.DR GT SCH (05:24)
[2023-01-13] MEDS: BACLOFEN 10 MG TABLET GT SCH ×4 (05:24→23:30)
[2023-01-13] MEDS: PROTEIN SUPPLEMENT (PROSTAT) 30 ML LIQUID GT SCH ×3 (05:25→22:03)
[2023-01-13] MEDS: ACETAMINOPHEN 650 MG/20.3 ML LIQUID UDC GT SCH ×2 (08:30→20:51)
[2023-01-13] MEDS: ACIDOPHILUS/BULGARICUS CHEW TAB GT SCH ×2 (09:00→20:51)
[2023-01-13] MEDS: NITROFURANTOIN MACROCRYSTAL 100 MG CAPSULE GT SCH (09:00)
[2023-01-13] MEDS: SILVER SULFADIAZINE 1% CREAM 50 GM TP SCH ×4 (09:00→20:52)
[2023-01-13] MEDS: VITAMINS A AND D 5 GM UD PKT TP SCH ×2 (09:00→20:52)
[2023-01-13] MEDS: REMEDY ESSENTIAL ZINC PASTE 113 GM TP SCH ×2 (09:00→20:52)
[2023-01-13] MEDS: APIXABAN 2.5 MG TABLET GT SCH ×2 (09:00→21:00)
[2023-01-13] MEDS: HYDROGEN PEROXIDE 3% 118 ML BOTTLE TP SCH ×2 (10:10→19:20)
[2023-01-13] MEDS: SERTRALINE HCL 25 MG TABLET GT SCH (12:00)
[2023-01-13] MEDS: GLUCERNA 1.2 1000ML LIQUID GT PRN (19:28)
[2023-01-13] MEDS: ASCORBIC ACID 500 MG TABLET GT SCH (20:51)
[2023-01-13] MEDS: MULTIVIT, IRON, MIN NO. 8, FA TABLET GT SCH (20:51)
[2023-01-13] MEDS: SIMVASTATIN 10 MG TABLET GT SCH (20:52)
[2023-01-13] MEDS: ESTROGENS,CONJU VAGINAL CREAM 42.5 GM TUBE VG SCH (20:52)
[2023-01-13] MEDS: TEMAZEPAM 7.5 MG CAPSULE GT PRN (21:00)
[2023-01-14] VITALS (20 sets, daily range): TEMP 97.2; O2SAT 96–99
[2023-01-14] MEDS: ALBUTEROL SULFATE 2.5 MG/3 ML NEBU NEB SCH ×6 (02:02→21:46)
[2023-01-14] MEDS: IPRATROPIUM BROMIDE 0.5 MG/2.5 ML NEBU NEB SCH ×6 (02:03→21:45)
[2023-01-14] MEDS: MIDODRINE HCL 5 MG TABLET GT SCH ×3 (05:03→21:13)
[2023-01-14] MEDS: ARGININE/GLUTAMINE/CALCIUM BMB 1 EACH POWD.PACK GT SCH ×2 (05:03→17:43)
[2023-01-14] MEDS: OMEPRAZOLE 20 MG CAPSULE.DR GT SCH (05:03)
[2023-01-14] MEDS: PROTEIN SUPPLEMENT (PROSTAT) 30 ML LIQUID GT SCH ×3 (05:03→21:13)
[2023-01-14] MEDS: OMEGA-3 FATTY ACIDS/FISH OIL CAPSULE GT SCH ×2 (05:03→17:43)
[2023-01-14] MEDS: BACLOFEN 10 MG TABLET GT SCH ×4 (05:03→23:04)
[2023-01-14] MEDS ORDERED: DIATR MEGLU/DIATRIZOATE SODIUM 30 ML BOTTLE ONE (06:29)
[2023-01-14] MEDS: HYDROGEN PEROXIDE 3% 118 ML BOTTLE TP SCH ×2 (08:12→21:46)
[2023-01-14] MEDS: ACETAMINOPHEN 650 MG/20.3 ML LIQUID UDC GT SCH ×2 (08:59→21:12)
[2023-01-14] MEDS: REMEDY ESSENTIAL ZINC PASTE 113 GM TP SCH ×2 (09:00→21:13)
[2023-01-14] MEDS: NITROFURANTOIN MACROCRYSTAL 100 MG CAPSULE GT SCH (09:00)
[2023-01-14] MEDS: ACIDOPHILUS/BULGARICUS CHEW TAB GT SCH ×2 (09:00→21:12)
[2023-01-14] MEDS: APIXABAN 2.5 MG TABLET GT SCH ×2 (09:00→21:00)
[2023-01-14] MEDS: SILVER SULFADIAZINE 1% CREAM 50 GM TP SCH ×4 (09:00→21:13)
[2023-01-14] MEDS: VITAMINS A AND D 5 GM UD PKT TP SCH ×2 (09:00→21:13)
[2023-01-14] MEDS: SERTRALINE HCL 25 MG TABLET GT SCH (12:33)
[2023-01-14] MEDS: HYDROCODONE/APAP 10-325 MG TABLET GT PRN (19:55)
[2023-01-14] MEDS: MULTIVIT, IRON, MIN NO. 8, FA TABLET GT SCH (21:12)
[2023-01-14] MEDS: ASCORBIC ACID 500 MG TABLET GT SCH (21:12)
[2023-01-14] MEDS: ESTROGENS,CONJU VAGINAL CREAM 42.5 GM TUBE VG SCH (21:13)
[2023-01-14] MEDS: SIMVASTATIN 10 MG TABLET GT SCH (21:13)
[2023-01-15] VITALS (17 sets, daily range): TEMP 97.9–99.1; O2SAT 96–99
[2023-01-15] MEDS: IPRATROPIUM BROMIDE 0.5 MG/2.5 ML NEBU NEB SCH ×7 (00:13→23:57)
[2023-01-15] MEDS: ALBUTEROL SULFATE 2.5 MG/3 ML NEBU NEB SCH ×7 (00:14→23:57)
[2023-01-15] MEDS: HYDROCODONE/APAP 10-325 MG TABLET GT PRN (04:25)
[2023-01-15] MEDS: GLUCERNA 1.2 1000ML LIQUID GT PRN (04:26)
[2023-01-15] MEDS: BACLOFEN 10 MG TABLET GT SCH ×4 (05:43→23:00)
[2023-01-15] MEDS: OMEGA-3 FATTY ACIDS/FISH OIL CAPSULE GT SCH ×2 (05:43→17:52)
[2023-01-15] MEDS: MIDODRINE HCL 5 MG TABLET GT SCH ×3 (05:43→21:26)
[2023-01-15] MEDS: OMEPRAZOLE 20 MG CAPSULE.DR GT SCH (05:43)
[2023-01-15] MEDS: ARGININE/GLUTAMINE/CALCIUM BMB 1 EACH POWD.PACK GT SCH ×2 (05:43→17:54)
[2023-01-15] MEDS: PROTEIN SUPPLEMENT (PROSTAT) 30 ML LIQUID GT SCH ×3 (05:43→21:26)
[2023-01-15] MEDS: HYDROGEN PEROXIDE 3% 118 ML BOTTLE TP SCH ×2 (07:58→21:46)
[2023-01-15] MEDS: ACETAMINOPHEN 650 MG/20.3 ML LIQUID UDC GT SCH ×2 (08:30→20:28)
[2023-01-15] MEDS: ACIDOPHILUS/BULGARICUS CHEW TAB GT SCH ×2 (09:53→20:29)
[2023-01-15] MEDS: REMEDY ESSENTIAL ZINC PASTE 113 GM TP SCH ×2 (09:55→20:29)
[2023-01-15] MEDS: VITAMINS A AND D 5 GM UD PKT TP SCH ×2 (09:55→20:29)
[2023-01-15] MEDS: SILVER SULFADIAZINE 1% CREAM 50 GM TP SCH ×4 (09:55→20:29)
[2023-01-15] MEDS: NITROFURANTOIN MACROCRYSTAL 100 MG CAPSULE GT SCH (09:55)
[2023-01-15] MEDS: APIXABAN 2.5 MG TABLET GT SCH ×2 (09:57→20:28)
[2023-01-15] MEDS: SERTRALINE HCL 25 MG TABLET GT SCH (12:51)
[2023-01-15] MEDS: SIMVASTATIN 10 MG TABLET GT SCH (20:29)
[2023-01-15] MEDS: ASCORBIC ACID 500 MG TABLET GT SCH (20:29)
[2023-01-15] MEDS: MULTIVIT, IRON, MIN NO. 8, FA TABLET GT SCH (20:29)
[2023-01-15] MEDS: ESTROGENS,CONJU VAGINAL CREAM 42.5 GM TUBE VG SCH (20:29)
[2023-01-15] MEDS: TEMAZEPAM 7.5 MG CAPSULE GT PRN (23:00)
[2023-01-16] VITALS (15 sets, daily range): TEMP 98.6–99.2; O2SAT 96–99
[2023-01-16] MEDS: IPRATROPIUM BROMIDE 0.5 MG/2.5 ML NEBU NEB SCH ×6 (04:14→23:35)
[2023-01-16] MEDS: ALBUTEROL SULFATE 2.5 MG/3 ML NEBU NEB SCH ×6 (04:15→23:35)
[2023-01-16] MEDS: PROTEIN SUPPLEMENT (PROSTAT) 30 ML LIQUID GT SCH ×3 (05:20→22:10)
[2023-01-16] MEDS: ARGININE/GLUTAMINE/CALCIUM BMB 1 EACH POWD.PACK GT SCH ×2 (05:20→17:17)
[2023-01-16] MEDS: BACLOFEN 10 MG TABLET GT SCH ×4 (05:20→23:13)
[2023-01-16] MEDS: OMEPRAZOLE 20 MG CAPSULE.DR GT SCH (05:20)
[2023-01-16] MEDS: MIDODRINE HCL 5 MG TABLET GT SCH ×3 (05:20→22:10)
[2023-01-16] MEDS: OMEGA-3 FATTY ACIDS/FISH OIL CAPSULE GT SCH ×2 (05:20→17:17)
[2023-01-16] MEDS: HYDROGEN PEROXIDE 3% 118 ML BOTTLE TP SCH ×2 (07:46→19:20)
[2023-01-16 08:13] LABS: CALCIUM 9.3 mg/dL (8.5-10.1); CREATININE 0.9 mg/dL (0.6-1.3); POTASSIUM 3.3 mmol/L (3.5-5.1)
[2023-01-16] MEDS: ACIDOPHILUS/BULGARICUS CHEW TAB GT SCH ×2 (08:55→21:00)
[2023-01-16] MEDS: ACETAMINOPHEN 650 MG/20.3 ML LIQUID UDC GT SCH ×2 (08:55→20:30)
[2023-01-16] MEDS: SILVER SULFADIAZINE 1% CREAM 50 GM TP SCH ×4 (08:57→21:00)
[2023-01-16] MEDS: NITROFURANTOIN MACROCRYSTAL 100 MG CAPSULE GT SCH (08:57)
[2023-01-16] MEDS: REMEDY ESSENTIAL ZINC PASTE 113 GM TP SCH ×2 (08:57→21:00)
[2023-01-16] MEDS: VITAMINS A AND D 5 GM UD PKT TP SCH ×2 (08:58→21:00)
[2023-01-16] MEDS: APIXABAN 2.5 MG TABLET GT SCH ×2 (09:27→21:00)
[2023-01-16] MEDS: SERTRALINE HCL 25 MG TABLET GT SCH (12:08)
[2023-01-16] MEDS: GLUCERNA 1.2 1000ML LIQUID GT PRN (13:50)
[2023-01-16] MEDS ORDERED: POTASSIUM CHLORIDE 10 MEQ TAB.PRT.SR XX ONE (14:45)
[2023-01-16] MEDS ORDERED: POTASSIUM CHLORIDE 20 MEQ TAB.PRT.SR XX ONE (15:00)
[2023-01-16] MEDS: MULTIVIT, IRON, MIN NO. 8, FA TABLET GT SCH (21:00)
[2023-01-16] MEDS: ASCORBIC ACID 500 MG TABLET GT SCH (21:00)
[2023-01-16] MEDS: SIMVASTATIN 10 MG TABLET GT SCH (21:00)
[2023-01-16] MEDS: ESTROGENS,CONJU VAGINAL CREAM 42.5 GM TUBE VG SCH (21:00)
[2023-01-16] MEDS: TEMAZEPAM 7.5 MG CAPSULE GT PRN (22:00)
[2023-01-17] VITALS (14 sets, daily range): TEMP 97.6–98.4; O2SAT 96–99
[2023-01-17] MEDS: ALBUTEROL SULFATE 2.5 MG/3 ML NEBU NEB SCH ×6 (03:19→23:20)
[2023-01-17] MEDS: IPRATROPIUM BROMIDE 0.5 MG/2.5 ML NEBU NEB SCH ×6 (03:19→23:20)
[2023-01-17] MEDS: BACLOFEN 10 MG TABLET GT SCH ×3 (05:10→17:46)
[2023-01-17] MEDS: ARGININE/GLUTAMINE/CALCIUM BMB 1 EACH POWD.PACK GT SCH ×2 (05:10→17:46)
[2023-01-17] MEDS: OMEPRAZOLE 20 MG CAPSULE.DR GT SCH (05:10)
[2023-01-17] MEDS: OMEGA-3 FATTY ACIDS/FISH OIL CAPSULE GT SCH ×2 (05:10→17:46)
[2023-01-17] MEDS: MIDODRINE HCL 5 MG TABLET GT SCH ×3 (05:11→21:26)
[2023-01-17] MEDS: PROTEIN SUPPLEMENT (PROSTAT) 30 ML LIQUID GT SCH ×3 (05:11→21:26)
[2023-01-17] MEDS: ACETAMINOPHEN 650 MG/20.3 ML LIQUID UDC GT SCH ×2 (08:30→20:30)
[2023-01-17] MEDS: HYDROGEN PEROXIDE 3% 118 ML BOTTLE TP SCH ×2 (09:20→19:19)
[2023-01-17] MEDS: ACIDOPHILUS/BULGARICUS CHEW TAB GT SCH ×2 (09:54→21:22)
[2023-01-17] MEDS: NITROFURANTOIN MACROCRYSTAL 100 MG CAPSULE GT SCH (09:56)
[2023-01-17] MEDS: REMEDY ESSENTIAL ZINC PASTE 113 GM TP SCH ×2 (09:56→21:25)
[2023-01-17] MEDS: SILVER SULFADIAZINE 1% CREAM 50 GM TP SCH ×4 (09:57→21:25)
[2023-01-17] MEDS: VITAMINS A AND D 5 GM UD PKT TP SCH ×2 (09:58→21:25)
[2023-01-17] MEDS: APIXABAN 2.5 MG TABLET GT SCH ×2 (10:00→21:22)
[2023-01-17] MEDS: SERTRALINE HCL 25 MG TABLET GT SCH (12:56)
[2023-01-17] MEDS: SIMVASTATIN 10 MG TABLET GT SCH (21:24)
[2023-01-17] MEDS: FOSFOMYCIN TROMETHAMINE 3 GM PACKET GT SCH (21:24)
[2023-01-17] MEDS: MULTIVIT, IRON, MIN NO. 8, FA TABLET GT SCH (21:24)
[2023-01-17] MEDS: ASCORBIC ACID 500 MG TABLET GT SCH (21:24)
[2023-01-17] MEDS: ESTROGENS,CONJU VAGINAL CREAM 42.5 GM TUBE VG SCH (21:25)
[2023-01-17] MEDS: GLUCERNA 1.2 1000ML LIQUID GT PRN (21:27)
[2023-01-17] MEDS: TEMAZEPAM 7.5 MG CAPSULE GT PRN (22:00)
[2023-01-18] VITALS (16 sets, daily range): TEMP 98.1–99; O2SAT 98–99
[2023-01-18] MEDS: BACLOFEN 10 MG TABLET GT SCH ×4 (00:02→17:02)
[2023-01-18] MEDS: ALBUTEROL SULFATE 2.5 MG/3 ML NEBU NEB SCH ×6 (03:30→23:51)
[2023-01-18] MEDS: IPRATROPIUM BROMIDE 0.5 MG/2.5 ML NEBU NEB SCH ×6 (03:30→23:51)
[2023-01-18] MEDS: MIDODRINE HCL 5 MG TABLET GT SCH ×3 (05:20→21:23)
[2023-01-18] MEDS: OMEGA-3 FATTY ACIDS/FISH OIL CAPSULE GT SCH ×2 (05:20→17:01)
[2023-01-18] MEDS: OMEPRAZOLE 20 MG CAPSULE.DR GT SCH (05:20)
[2023-01-18] MEDS: ARGININE/GLUTAMINE/CALCIUM BMB 1 EACH POWD.PACK GT SCH ×2 (05:20→17:01)
[2023-01-18] MEDS: PROTEIN SUPPLEMENT (PROSTAT) 30 ML LIQUID GT SCH ×3 (05:21→21:24)
[2023-01-18] MEDS: ACETAMINOPHEN 650 MG/20.3 ML LIQUID UDC GT SCH ×2 (08:30→20:30)
[2023-01-18] MEDS: HYDROGEN PEROXIDE 3% 118 ML BOTTLE TP SCH ×2 (08:57→23:50)
[2023-01-18] MEDS: ACIDOPHILUS/BULGARICUS CHEW TAB GT SCH ×2 (09:41→21:22)
[2023-01-18] MEDS: SILVER SULFADIAZINE 1% CREAM 50 GM TP SCH ×4 (09:42→21:23)
[2023-01-18] MEDS: VITAMINS A AND D 5 GM UD PKT TP SCH ×2 (09:42→21:23)
[2023-01-18] MEDS: REMEDY ESSENTIAL ZINC PASTE 113 GM TP SCH ×2 (09:42→21:23)
[2023-01-18] MEDS: NITROFURANTOIN MACROCRYSTAL 100 MG CAPSULE GT SCH (09:42)
[2023-01-18] MEDS: APIXABAN 2.5 MG TABLET GT SCH ×2 (09:43→21:22)
[2023-01-18] MEDS: SERTRALINE HCL 25 MG TABLET GT SCH (12:12)
[2023-01-18] MEDS: MULTIVIT, IRON, MIN NO. 8, FA TABLET GT SCH (21:22)
[2023-01-18] MEDS: ESTROGENS,CONJU VAGINAL CREAM 42.5 GM TUBE VG SCH (21:23)
[2023-01-18] MEDS: SIMVASTATIN 10 MG TABLET GT SCH (21:23)
[2023-01-18] MEDS: ASCORBIC ACID 500 MG TABLET GT SCH (21:23)
[2023-01-18] MEDS: GLUCERNA 1.2 1000ML LIQUID GT PRN (21:34)
[2023-01-18] MEDS: TEMAZEPAM 7.5 MG CAPSULE GT PRN (22:33)
[2023-01-19] VITALS (16 sets, daily range): TEMP 98.6–100.2; O2SAT 98–99
[2023-01-19] MEDS: IPRATROPIUM BROMIDE 0.5 MG/2.5 ML NEBU NEB SCH ×5 (03:10→22:44)
[2023-01-19] MEDS: ALBUTEROL SULFATE 2.5 MG/3 ML NEBU NEB SCH ×5 (03:11→22:45)
[2023-01-19] MEDS: BACLOFEN 10 MG TABLET GT SCH ×5 (05:02→23:04)
[2023-01-19] MEDS: OMEPRAZOLE 20 MG CAPSULE.DR GT SCH (05:02)
[2023-01-19] MEDS: OMEGA-3 FATTY ACIDS/FISH OIL CAPSULE GT SCH ×2 (05:02→17:05)
[2023-01-19] MEDS: ARGININE/GLUTAMINE/CALCIUM BMB 1 EACH POWD.PACK GT SCH ×2 (05:02→17:05)
[2023-01-19] MEDS: PROTEIN SUPPLEMENT (PROSTAT) 30 ML LIQUID GT SCH ×3 (05:04→21:34)
[2023-01-19] MEDS: MIDODRINE HCL 5 MG TABLET GT SCH ×3 (05:04→21:34)
[2023-01-19] MEDS: HYDROGEN PEROXIDE 3% 118 ML BOTTLE TP SCH ×2 (08:22→22:45)
[2023-01-19] MEDS: ACETAMINOPHEN 650 MG/20.3 ML LIQUID UDC GT SCH ×2 (09:24→20:30)
[2023-01-19] MEDS: ACIDOPHILUS/BULGARICUS CHEW TAB GT SCH ×2 (09:25→21:24)
[2023-01-19] MEDS: APIXABAN 2.5 MG TABLET GT SCH (09:25)
[2023-01-19] MEDS: VITAMINS A AND D 5 GM UD PKT TP SCH ×2 (09:25→21:24)
[2023-01-19] MEDS: NITROFURANTOIN MACROCRYSTAL 100 MG CAPSULE GT SCH (09:25)
[2023-01-19] MEDS: SILVER SULFADIAZINE 1% CREAM 50 GM TP SCH ×2 (09:25)
[2023-01-19] MEDS: REMEDY ESSENTIAL ZINC PASTE 113 GM TP SCH ×2 (09:25→21:24)
[2023-01-19] MEDS: SERTRALINE HCL 25 MG TABLET GT SCH (12:04)
[2023-01-19] MEDS: SIMVASTATIN 10 MG TABLET GT SCH (21:24)
[2023-01-19] MEDS: MULTIVIT, IRON, MIN NO. 8, FA TABLET GT SCH (21:24)
[2023-01-19] MEDS: ASCORBIC ACID 500 MG TABLET GT SCH (21:24)
[2023-01-19] MEDS: ESTROGENS,CONJU VAGINAL CREAM 42.5 GM TUBE VG SCH (21:24)
[2023-01-19] MEDS: TEMAZEPAM 7.5 MG CAPSULE GT PRN (22:00)
[2023-01-20] VITALS (15 sets, daily range): TEMP 97.7–97.9; O2SAT 98–99
[2023-01-20] MEDS: ALBUTEROL SULFATE 2.5 MG/3 ML NEBU NEB SCH ×7 (00:34→23:06)
[2023-01-20] MEDS: IPRATROPIUM BROMIDE 0.5 MG/2.5 ML NEBU NEB SCH ×7 (00:34→23:06)
[2023-01-20] MEDS: GLUCERNA 1.2 1000ML LIQUID GT PRN (04:48)
[2023-01-20] MEDS: OMEPRAZOLE 20 MG CAPSULE.DR GT SCH (05:37)
[2023-01-20] MEDS: BACLOFEN 10 MG TABLET GT SCH ×3 (05:37→17:53)
[2023-01-20] MEDS: ARGININE/GLUTAMINE/CALCIUM BMB 1 EACH POWD.PACK GT SCH ×2 (05:37→17:53)
[2023-01-20] MEDS: OMEGA-3 FATTY ACIDS/FISH OIL CAPSULE GT SCH ×2 (05:37→17:52)
[2023-01-20] MEDS: MIDODRINE HCL 5 MG TABLET GT SCH ×3 (05:38→22:32)
[2023-01-20] MEDS: PROTEIN SUPPLEMENT (PROSTAT) 30 ML LIQUID GT SCH ×3 (05:38→22:32)
[2023-01-20] MEDS: ACIDOPHILUS/BULGARICUS CHEW TAB GT SCH ×2 (08:46→21:00)
[2023-01-20] MEDS: ACETAMINOPHEN 650 MG/20.3 ML LIQUID UDC GT SCH ×2 (08:46→20:30)
[2023-01-20] MEDS: NITROFURANTOIN MACROCRYSTAL 100 MG CAPSULE GT SCH (08:47)
[2023-01-20] MEDS: REMEDY ESSENTIAL ZINC PASTE 113 GM TP SCH ×2 (08:47→21:00)
[2023-01-20] MEDS: VITAMINS A AND D 5 GM UD PKT TP SCH ×2 (08:48→21:00)
[2023-01-20] MEDS: HYDROGEN PEROXIDE 3% 118 ML BOTTLE TP SCH ×2 (09:40→21:34)
[2023-01-20] MEDS: SERTRALINE HCL 25 MG TABLET GT SCH (12:49)
[2023-01-20] MEDS: SIMVASTATIN 10 MG TABLET GT SCH (21:00)
[2023-01-20] MEDS: ESTROGENS,CONJU VAGINAL CREAM 42.5 GM TUBE VG SCH (21:00)
[2023-01-20] MEDS: MULTIVIT, IRON, MIN NO. 8, FA TABLET GT SCH (21:00)
[2023-01-20] MEDS: ASCORBIC ACID 500 MG TABLET GT SCH (21:00)
[2023-01-20] MEDS: TEMAZEPAM 7.5 MG CAPSULE GT PRN (22:25)
[2023-01-21] VITALS (14 sets, daily range): TEMP 97.6–97.8; O2SAT 98–99
[2023-01-21] MEDS: IPRATROPIUM BROMIDE 0.5 MG/2.5 ML NEBU NEB SCH ×6 (03:02→23:28)
[2023-01-21] MEDS: ALBUTEROL SULFATE 2.5 MG/3 ML NEBU NEB SCH ×6 (03:02→23:28)
[2023-01-21] MEDS: OMEGA-3 FATTY ACIDS/FISH OIL CAPSULE GT SCH ×2 (06:00→17:12)
[2023-01-21] MEDS: MIDODRINE HCL 5 MG TABLET GT SCH ×3 (06:00→22:00)
[2023-01-21] MEDS: ARGININE/GLUTAMINE/CALCIUM BMB 1 EACH POWD.PACK GT SCH ×2 (06:00→17:13)
[2023-01-21] MEDS: PROTEIN SUPPLEMENT (PROSTAT) 30 ML LIQUID GT SCH ×3 (06:00→22:00)
[2023-01-21] MEDS: OMEPRAZOLE 20 MG CAPSULE.DR GT SCH (06:00)
[2023-01-21] MEDS: BACLOFEN 10 MG TABLET GT SCH ×4 (06:00→17:13)
[2023-01-21] MEDS: HYDROGEN PEROXIDE 3% 118 ML BOTTLE TP SCH ×2 (08:42→21:08)
[2023-01-21] MEDS: ACETAMINOPHEN 650 MG/20.3 ML LIQUID UDC GT SCH ×2 (08:44→20:30)
[2023-01-21] MEDS: ACIDOPHILUS/BULGARICUS CHEW TAB GT SCH ×2 (08:46→21:00)
[2023-01-21] MEDS: NITROFURANTOIN MACROCRYSTAL 100 MG CAPSULE GT SCH (08:46)
[2023-01-21] MEDS: REMEDY ESSENTIAL ZINC PASTE 113 GM TP SCH ×2 (08:46→21:00)
[2023-01-21] MEDS: VITAMINS A AND D 5 GM UD PKT TP SCH ×2 (08:46→21:00)
[2023-01-21] MEDS: SERTRALINE HCL 25 MG TABLET GT SCH (12:50)
[2023-01-21] MEDS: GLUCERNA 1.2 1000ML LIQUID GT PRN (12:52)
[2023-01-21] MEDS: MULTIVIT, IRON, MIN NO. 8, FA TABLET GT SCH (21:00)
[2023-01-21] MEDS: ASCORBIC ACID 500 MG TABLET GT SCH (21:00)
[2023-01-21] MEDS: SILVER SULFADIAZINE 1% CREAM 50 GM TP SCH ×2 (21:00)
[2023-01-21] MEDS: ESTROGENS,CONJU VAGINAL CREAM 42.5 GM TUBE VG SCH (21:00)
[2023-01-21] MEDS: SIMVASTATIN 10 MG TABLET GT SCH (21:00)
[2023-01-21] MEDS: TEMAZEPAM 7.5 MG CAPSULE GT PRN (22:34)
[2023-01-22] VITALS (13 sets, daily range): TEMP 97.8–99.1; O2SAT 98–99
[2023-01-22] MEDS: OMEPRAZOLE 20 MG CAPSULE.DR GT SCH (05:38)
[2023-01-22] MEDS: BACLOFEN 10 MG TABLET GT SCH ×4 (05:38→17:25)
[2023-01-22] MEDS: ARGININE/GLUTAMINE/CALCIUM BMB 1 EACH POWD.PACK GT SCH ×2 (05:38→17:25)
[2023-01-22] MEDS: OMEGA-3 FATTY ACIDS/FISH OIL CAPSULE GT SCH ×2 (05:38→17:25)
[2023-01-22] MEDS: MIDODRINE HCL 5 MG TABLET GT SCH ×3 (05:39→22:46)
[2023-01-22] MEDS: PROTEIN SUPPLEMENT (PROSTAT) 30 ML LIQUID GT SCH ×3 (05:39→22:46)
[2023-01-22] MEDS: IPRATROPIUM BROMIDE 0.5 MG/2.5 ML NEBU NEB SCH ×5 (07:22→23:24)
[2023-01-22] MEDS: ALBUTEROL SULFATE 2.5 MG/3 ML NEBU NEB SCH ×5 (07:23→23:24)
[2023-01-22] MEDS: ACETAMINOPHEN 650 MG/20.3 ML LIQUID UDC GT SCH ×2 (09:20→20:30)
[2023-01-22] MEDS: ACIDOPHILUS/BULGARICUS CHEW TAB GT SCH ×2 (09:21→21:00)
[2023-01-22] MEDS: SILVER SULFADIAZINE 1% CREAM 50 GM TP SCH ×4 (09:22→21:00)
[2023-01-22] MEDS: NITROFURANTOIN MACROCRYSTAL 100 MG CAPSULE GT SCH (09:22)
[2023-01-22] MEDS: REMEDY ESSENTIAL ZINC PASTE 113 GM TP SCH ×2 (09:22→21:00)
[2023-01-22] MEDS: VITAMINS A AND D 5 GM UD PKT TP SCH ×2 (09:22→21:00)
[2023-01-22] MEDS: HYDROGEN PEROXIDE 3% 118 ML BOTTLE TP SCH ×2 (09:57→21:00)
[2023-01-22] MEDS: SERTRALINE HCL 25 MG TABLET GT SCH (12:30)
[2023-01-22] MEDS: GLUCERNA 1.2 1000ML LIQUID GT PRN (17:31)
[2023-01-22] MEDS: MULTIVIT, IRON, MIN NO. 8, FA TABLET GT SCH (21:00)
[2023-01-22] MEDS: SIMVASTATIN 10 MG TABLET GT SCH (21:00)
[2023-01-22] MEDS: APIXABAN 2.5 MG TABLET GT SCH (21:00)
[2023-01-22] MEDS: ASCORBIC ACID 500 MG TABLET GT SCH (21:00)
[2023-01-22] MEDS: ESTROGENS,CONJU VAGINAL CREAM 42.5 GM TUBE VG SCH (21:00)
[2023-01-23] VITALS (14 sets, daily range): TEMP 98; O2SAT 97–99
[2023-01-23] MEDS: BACLOFEN 10 MG TABLET GT SCH ×4 (00:13→17:47)
[2023-01-23] MEDS: ALBUTEROL SULFATE 2.5 MG/3 ML NEBU NEB SCH ×6 (03:03→23:21)
[2023-01-23] MEDS: IPRATROPIUM BROMIDE 0.5 MG/2.5 ML NEBU NEB SCH ×6 (03:03→23:21)
[2023-01-23] MEDS: ARGININE/GLUTAMINE/CALCIUM BMB 1 EACH POWD.PACK GT SCH ×2 (05:48→17:46)
[2023-01-23] MEDS: OMEGA-3 FATTY ACIDS/FISH OIL CAPSULE GT SCH ×2 (05:48→17:46)
[2023-01-23] MEDS: PROTEIN SUPPLEMENT (PROSTAT) 30 ML LIQUID GT SCH ×3 (05:49→22:00)
[2023-01-23] MEDS: MIDODRINE HCL 5 MG TABLET GT SCH ×3 (05:49→22:00)
[2023-01-23] MEDS: OMEPRAZOLE 20 MG CAPSULE.DR GT SCH (05:49)
[2023-01-23 07:28] LABS: BASOPHILS # (AUTO) 0.1 K/UL (0.0-0.2); BASOPHILS % (AUTO) 0.6 % (0.0-2.0); EOSINOPHILS # (AUTO) 0.5 K/uL (0.0-0.7); EOSINOPHILS % (AUTO) 3.8 % (0.0-7.0); HEMATOCRIT 31.2 % (31.2-41.9); HEMOGLOBIN 9.6 g/dL (10.9-14.3); LYMPHOCYTES # (AUTO) 2.2 K/uL (0.8-4.8); MEAN CORPUSCULAR HEMOGLOBIN 23.2 uug (24.7-32.8); MEAN CORPUSCULAR HGB CONC 31 g/dL (32.3-35.6); MEAN CORPUSCULAR VOLUME 75.7 fL (75.5-95.3); MONOCYTES # (AUTO) 1.1 K/uL (0.1-1.30); MONOCYTES % (AUTO) 8.7 % (0.0-11.0); NEUTROPHILS # (AUTO) 8.9 K/uL (1.8-8.9); NEUTROPHILS % (AUTO) 69.9 % (38.5-71.5); PLATELET COUNT (AUTO) 317 K/uL (179-408); RED BLOOD CELL COUNT(AUTO) 4.12 MIL/uL (3.63-4.92); RED CELL DISTRIBUTION WIDTH 19.2 % (12.3-17.7); WHITE BLOOD COUNT (AUTO) 12.8 K/uL (3.8-11.8)
[2023-01-23 07:32] LABS: DIFFERENTIAL COMMENT 1
[2023-01-23 07:39] LABS: ALBUMIN 2.7 g/dL (3.4-5.0); BILIRUBIN,TOTAL 0.4 mg/dL (0.2-1.0); CALCIUM 9.7 mg/dL (8.5-10.1); CREATININE 0.9 mg/dL (0.6-1.3); MAGNESIUM 2.2 mg/dL (1.8-2.4); POTASSIUM 3.1 mmol/L (3.5-5.1); TOTAL PROTEIN, SERUM 8.9 g/dL (6.4-8.2)
[2023-01-23] MEDS: HYDROGEN PEROXIDE 3% 118 ML BOTTLE TP SCH ×2 (08:49→20:28)
[2023-01-23] MEDS: ACIDOPHILUS/BULGARICUS CHEW TAB GT SCH ×2 (09:17→21:37)
[2023-01-23] MEDS: ACETAMINOPHEN 650 MG/20.3 ML LIQUID UDC GT SCH ×2 (09:17→21:00)
[2023-01-23] MEDS: NITROFURANTOIN MACROCRYSTAL 100 MG CAPSULE GT SCH (09:19)
[2023-01-23] MEDS: REMEDY ESSENTIAL ZINC PASTE 113 GM TP SCH ×2 (09:19→21:37)
[2023-01-23] MEDS: SILVER SULFADIAZINE 1% CREAM 50 GM TP SCH ×4 (09:20→21:39)
[2023-01-23] MEDS: VITAMINS A AND D 5 GM UD PKT TP SCH ×2 (09:20→21:39)
[2023-01-23] MEDS: APIXABAN 2.5 MG TABLET GT SCH ×2 (09:33→21:00)
[2023-01-23] MEDS: SERTRALINE HCL 25 MG TABLET GT SCH (12:00)
[2023-01-23] MEDS ORDERED: POTASSIUM CHLORIDE 20 MEQ TAB.PRT.SR XX ONE (13:00)
[2023-01-23] MEDS ORDERED: POTASSIUM CHLORIDE 10 MEQ TAB.PRT.SR XX ONE (16:00)
[2023-01-23] MEDS: ESTROGENS,CONJU VAGINAL CREAM 42.5 GM TUBE VG SCH (21:00)
[2023-01-23] MEDS: ASCORBIC ACID 500 MG TABLET GT SCH (21:37)
[2023-01-23] MEDS: SIMVASTATIN 10 MG TABLET GT SCH (21:37)
[2023-01-23] MEDS: MULTIVIT, IRON, MIN NO. 8, FA TABLET GT SCH (21:37)
[2023-01-24] VITALS (15 sets, daily range): TEMP 99–99.1; O2SAT 96–99
[2023-01-24] MEDS: BACLOFEN 10 MG TABLET GT SCH ×4 (00:04→17:10)
[2023-01-24] MEDS: IPRATROPIUM BROMIDE 0.5 MG/2.5 ML NEBU NEB SCH ×5 (03:37→20:50)
[2023-01-24] MEDS: ALBUTEROL SULFATE 2.5 MG/3 ML NEBU NEB SCH ×5 (03:37→20:50)
[2023-01-24] MEDS: OMEGA-3 FATTY ACIDS/FISH OIL CAPSULE GT SCH ×2 (05:42→17:10)
[2023-01-24] MEDS: OMEPRAZOLE 20 MG CAPSULE.DR GT SCH (05:43)
[2023-01-24] MEDS: MIDODRINE HCL 5 MG TABLET GT SCH ×3 (05:43→22:05)
[2023-01-24] MEDS: ARGININE/GLUTAMINE/CALCIUM BMB 1 EACH POWD.PACK GT SCH ×2 (05:43→17:10)
[2023-01-24] MEDS: PROTEIN SUPPLEMENT (PROSTAT) 30 ML LIQUID GT SCH ×3 (05:43→22:03)
[2023-01-24] MEDS: APIXABAN 2.5 MG TABLET GT SCH ×2 (09:01→21:00)
[2023-01-24] MEDS: ACETAMINOPHEN 650 MG/20.3 ML LIQUID UDC GT SCH ×2 (09:02→20:30)
[2023-01-24] MEDS: ACIDOPHILUS/BULGARICUS CHEW TAB GT SCH ×2 (09:02→21:59)
[2023-01-24] MEDS: NITROFURANTOIN MACROCRYSTAL 100 MG CAPSULE GT SCH (09:03)
[2023-01-24] MEDS: REMEDY ESSENTIAL ZINC PASTE 113 GM TP SCH ×2 (09:04→21:00)
[2023-01-24] MEDS: VITAMINS A AND D 5 GM UD PKT TP SCH ×2 (09:04→21:00)
[2023-01-24] MEDS: SILVER SULFADIAZINE 1% CREAM 50 GM TP SCH ×4 (09:04→21:00)
[2023-01-24] MEDS: HYDROGEN PEROXIDE 3% 118 ML BOTTLE TP SCH ×2 (09:05→21:08)
[2023-01-24] MEDS: SERTRALINE HCL 25 MG TABLET GT SCH (12:46)
[2023-01-24] MEDS: MULTIVIT, IRON, MIN NO. 8, FA TABLET GT SCH (21:00)
[2023-01-24] MEDS: ESTROGENS,CONJU VAGINAL CREAM 42.5 GM TUBE VG SCH (21:00)
[2023-01-24] MEDS: ASCORBIC ACID 500 MG TABLET GT SCH (21:00)
[2023-01-24] MEDS: SIMVASTATIN 10 MG TABLET GT SCH (21:00)
[2023-01-24] MEDS: FOSFOMYCIN TROMETHAMINE 3 GM PACKET GT SCH (21:00)
[2023-01-24] MEDS: GLUCERNA 1.2 1000ML LIQUID GT PRN (22:28)
[2023-01-25] VITALS (15 sets, daily range): TEMP 98.3–98.6; O2SAT 96–99
[2023-01-25] MEDS: IPRATROPIUM BROMIDE 0.5 MG/2.5 ML NEBU NEB SCH ×7 (00:17→23:32)
[2023-01-25] MEDS: ALBUTEROL SULFATE 2.5 MG/3 ML NEBU NEB SCH ×7 (00:18→23:32)
[2023-01-25] MEDS: OMEGA-3 FATTY ACIDS/FISH OIL CAPSULE GT SCH ×2 (05:05→17:17)
[2023-01-25] MEDS: BACLOFEN 10 MG TABLET GT SCH ×5 (05:06→23:01)
[2023-01-25] MEDS: OMEPRAZOLE 20 MG CAPSULE.DR GT SCH (05:06)
[2023-01-25] MEDS: ARGININE/GLUTAMINE/CALCIUM BMB 1 EACH POWD.PACK GT SCH ×2 (05:06→17:17)
[2023-01-25] MEDS: PROTEIN SUPPLEMENT (PROSTAT) 30 ML LIQUID GT SCH ×3 (05:07→21:21)
[2023-01-25] MEDS: MIDODRINE HCL 5 MG TABLET GT SCH ×3 (05:07→21:20)
[2023-01-25] MEDS: HYDROCODONE/APAP 10-325 MG TABLET GT PRN (05:27)
[2023-01-25 07:06] LABS: BASOPHILS # (AUTO) 0.1 K/UL (0.0-0.2); BASOPHILS % (AUTO) 0.9 % (0.0-2.0); EOSINOPHILS # (AUTO) 0.5 K/uL (0.0-0.7); HEMATOCRIT 33.4 % (31.2-41.9); HEMOGLOBIN 10.2 g/dL (10.9-14.3); MEAN CORPUSCULAR HEMOGLOBIN 23.2 uug (24.7-32.8); MEAN CORPUSCULAR HGB CONC 31 g/dL (32.3-35.6); MONOCYTES # (AUTO) 1.1 K/uL (0.1-1.30); MONOCYTES % (AUTO) 9.5 % (0.0-11.0); NEUTROPHILS # (AUTO) 7.6 K/uL (1.8-8.9); NEUTROPHILS % (AUTO) 67.6 % (38.5-71.5); PLATELET COUNT (AUTO) 334 K/uL (179-408); RED BLOOD CELL COUNT(AUTO) 4.39 MIL/uL (3.63-4.92); RED CELL DISTRIBUTION WIDTH 19.7 % (12.3-17.7); WHITE BLOOD COUNT (AUTO) 11.2 K/uL (3.8-11.8)
[2023-01-25 07:17] LABS: DIFFERENTIAL COMMENT 1
[2023-01-25] MEDS: HYDROGEN PEROXIDE 3% 118 ML BOTTLE TP SCH ×2 (07:27→20:00)
[2023-01-25 07:30] LABS: THYROID STIMULATING HORMONE 1.418 mIU/mL (0.358-3.740)
[2023-01-25 07:55] LABS: ALBUMIN 2.7 g/dL (3.4-5.0); BILIRUBIN,TOTAL 0.4 mg/dL (0.2-1.0); CALCIUM 9.3 mg/dL (8.5-10.1); MAGNESIUM 2.5 mg/dL (1.8-2.4); PHOSPHOROUS 4.8 mg/dL (2.5-4.9); POTASSIUM 3.1 mmol/L (3.5-5.1); TOTAL PROTEIN, SERUM 9.1 g/dL (6.4-8.2)
[2023-01-25] MEDS: ACETAMINOPHEN 650 MG/20.3 ML LIQUID UDC GT SCH ×2 (08:30→21:19)
[2023-01-25] MEDS: NITROFURANTOIN MACROCRYSTAL 100 MG CAPSULE GT SCH (09:00)
[2023-01-25] MEDS: SILVER SULFADIAZINE 1% CREAM 50 GM TP SCH ×4 (09:00→21:20)
[2023-01-25] MEDS: VITAMINS A AND D 5 GM UD PKT TP SCH ×2 (09:00→21:20)
[2023-01-25] MEDS: REMEDY ESSENTIAL ZINC PASTE 113 GM TP SCH ×2 (09:00→21:20)
[2023-01-25] MEDS: ACIDOPHILUS/BULGARICUS CHEW TAB GT SCH ×2 (09:00→21:19)
[2023-01-25] MEDS: APIXABAN 2.5 MG TABLET GT SCH ×2 (09:28→21:19)
[2023-01-25] MEDS: SERTRALINE HCL 25 MG TABLET GT SCH (12:27)
[2023-01-25] MEDS ORDERED: POTASSIUM CHLORIDE 10 MEQ TAB.PRT.SR XX ONE (12:30)
[2023-01-25] MEDS: TEMAZEPAM 7.5 MG CAPSULE GT PRN (21:00)
[2023-01-25] MEDS: ASCORBIC ACID 500 MG TABLET GT SCH (21:19)
[2023-01-25] MEDS: MULTIVIT, IRON, MIN NO. 8, FA TABLET GT SCH (21:19)
[2023-01-25] MEDS: ESTROGENS,CONJU VAGINAL CREAM 42.5 GM TUBE VG SCH (21:20)
[2023-01-25] MEDS: SIMVASTATIN 10 MG TABLET GT SCH (21:20)
[2023-01-26] VITALS (11 sets, daily range): TEMP 98.6; O2SAT 98–99
[2023-01-26] MEDS: OMEGA-3 FATTY ACIDS/FISH OIL CAPSULE GT SCH ×2 (05:02→17:27)
[2023-01-26] MEDS: BACLOFEN 10 MG TABLET GT SCH ×4 (05:02→23:09)
[2023-01-26] MEDS: ARGININE/GLUTAMINE/CALCIUM BMB 1 EACH POWD.PACK GT SCH ×2 (05:02→17:28)
[2023-01-26] MEDS: OMEPRAZOLE 20 MG CAPSULE.DR GT SCH (05:02)
[2023-01-26] MEDS: PROTEIN SUPPLEMENT (PROSTAT) 30 ML LIQUID GT SCH ×3 (05:03→22:23)
[2023-01-26] MEDS: MIDODRINE HCL 5 MG TABLET GT SCH ×3 (05:03→22:00)
[2023-01-26] MEDS: IPRATROPIUM BROMIDE 0.5 MG/2.5 ML NEBU NEB SCH ×5 (07:21→23:02)
[2023-01-26] MEDS: ALBUTEROL SULFATE 2.5 MG/3 ML NEBU NEB SCH ×5 (07:21→23:02)
[2023-01-26] MEDS: HYDROGEN PEROXIDE 3% 118 ML BOTTLE TP SCH ×2 (09:00→21:22)
[2023-01-26] MEDS: ACETAMINOPHEN 650 MG/20.3 ML LIQUID UDC GT SCH ×2 (09:18→20:10)
[2023-01-26] MEDS: ACIDOPHILUS/BULGARICUS CHEW TAB GT SCH ×2 (09:19→20:11)
[2023-01-26] MEDS: APIXABAN 2.5 MG TABLET GT SCH ×2 (09:19→20:11)
[2023-01-26] MEDS: SILVER SULFADIAZINE 1% CREAM 50 GM TP SCH ×4 (09:21→21:00)
[2023-01-26] MEDS: VITAMINS A AND D 5 GM UD PKT TP SCH ×2 (09:21→21:00)
[2023-01-26] MEDS: REMEDY ESSENTIAL ZINC PASTE 113 GM TP SCH ×2 (09:21→20:11)
[2023-01-26] MEDS: NITROFURANTOIN MACROCRYSTAL 100 MG CAPSULE GT SCH (09:21)
[2023-01-26] MEDS: SERTRALINE HCL 25 MG TABLET GT SCH (12:32)
[2023-01-26] MEDS: ASCORBIC ACID 500 MG TABLET GT SCH (20:11)
[2023-01-26] MEDS: SIMVASTATIN 10 MG TABLET GT SCH (20:11)
[2023-01-26] MEDS: MULTIVIT, IRON, MIN NO. 8, FA TABLET GT SCH (20:11)
[2023-01-26] MEDS: ESTROGENS,CONJU VAGINAL CREAM 42.5 GM TUBE VG SCH (21:00)
[2023-01-26] MEDS: HYDROCODONE/APAP 10-325 MG TABLET GT PRN (23:10)
[2023-01-27] VITALS (15 sets, daily range): TEMP 98.4–98.6; O2SAT 98–99
[2023-01-27] MEDS: ALBUTEROL SULFATE 2.5 MG/3 ML NEBU NEB SCH ×5 (02:30→19:28)
[2023-01-27] MEDS: IPRATROPIUM BROMIDE 0.5 MG/2.5 ML NEBU NEB SCH ×5 (02:30→19:28)
[2023-01-27] MEDS: ARGININE/GLUTAMINE/CALCIUM BMB 1 EACH POWD.PACK GT SCH ×2 (05:28→17:13)
[2023-01-27] MEDS: OMEPRAZOLE 20 MG CAPSULE.DR GT SCH (05:28)
[2023-01-27] MEDS: BACLOFEN 10 MG TABLET GT SCH ×3 (05:28→17:13)
[2023-01-27] MEDS: OMEGA-3 FATTY ACIDS/FISH OIL CAPSULE GT SCH ×2 (05:28→17:13)
[2023-01-27] MEDS: MIDODRINE HCL 5 MG TABLET GT SCH ×3 (05:29→21:06)
[2023-01-27] MEDS: PROTEIN SUPPLEMENT (PROSTAT) 30 ML LIQUID GT SCH ×3 (05:29→21:06)
[2023-01-27] MEDS: HYDROGEN PEROXIDE 3% 118 ML BOTTLE TP SCH ×2 (08:24→21:04)
[2023-01-27] MEDS: ACETAMINOPHEN 650 MG/20.3 ML LIQUID UDC GT SCH ×2 (08:45→20:51)
[2023-01-27] MEDS: APIXABAN 2.5 MG TABLET GT SCH ×2 (08:49→21:05)
[2023-01-27] MEDS: ACIDOPHILUS/BULGARICUS CHEW TAB GT SCH ×2 (08:49→20:52)
[2023-01-27] MEDS: NITROFURANTOIN MACROCRYSTAL 100 MG CAPSULE GT SCH (08:49)
[2023-01-27] MEDS: REMEDY ESSENTIAL ZINC PASTE 113 GM TP SCH ×2 (08:49→20:52)
[2023-01-27] MEDS: VITAMINS A AND D 5 GM UD PKT TP SCH ×2 (08:50→20:52)
[2023-01-27] MEDS: SILVER SULFADIAZINE 1% CREAM 50 GM TP SCH ×4 (08:50→20:52)
[2023-01-27] MEDS: SERTRALINE HCL 25 MG TABLET GT SCH (12:10)
[2023-01-27] MEDS: GLUCERNA 1.2 1000ML LIQUID GT PRN (12:11)
[2023-01-27] MEDS: SIMVASTATIN 10 MG TABLET GT SCH (20:52)
[2023-01-27] MEDS: ESTROGENS,CONJU VAGINAL CREAM 42.5 GM TUBE VG SCH (20:52)
[2023-01-27] MEDS: ASCORBIC ACID 500 MG TABLET GT SCH (20:52)
[2023-01-27] MEDS: MULTIVIT, IRON, MIN NO. 8, FA TABLET GT SCH (20:52)
[2023-01-27] MEDS: TEMAZEPAM 7.5 MG CAPSULE GT PRN (21:00)
[2023-01-28] VITALS (17 sets, daily range): TEMP 97.8–98.2; O2SAT 98–99
[2023-01-28] MEDS: ALBUTEROL SULFATE 2.5 MG/3 ML NEBU NEB SCH ×7 (00:17→23:52)
[2023-01-28] MEDS: IPRATROPIUM BROMIDE 0.5 MG/2.5 ML NEBU NEB SCH ×7 (00:17→23:51)
[2023-01-28] MEDS: HYDROCODONE/APAP 10-325 MG TABLET GT PRN (03:31)
[2023-01-28] MEDS: BACLOFEN 10 MG TABLET GT SCH ×5 (05:03→23:28)
[2023-01-28] MEDS: ARGININE/GLUTAMINE/CALCIUM BMB 1 EACH POWD.PACK GT SCH ×2 (05:03→18:15)
[2023-01-28] MEDS: OMEGA-3 FATTY ACIDS/FISH OIL CAPSULE GT SCH ×2 (05:03→18:15)
[2023-01-28] MEDS: MIDODRINE HCL 5 MG TABLET GT SCH ×3 (05:03→21:07)
[2023-01-28] MEDS: OMEPRAZOLE 20 MG CAPSULE.DR GT SCH (05:03)
[2023-01-28] MEDS: PROTEIN SUPPLEMENT (PROSTAT) 30 ML LIQUID GT SCH ×3 (05:03→21:07)
[2023-01-28] MEDS: ACIDOPHILUS/BULGARICUS CHEW TAB GT SCH ×2 (08:35→21:06)
[2023-01-28] MEDS: ACETAMINOPHEN 650 MG/20.3 ML LIQUID UDC GT SCH ×2 (08:35→21:06)
[2023-01-28] MEDS: REMEDY ESSENTIAL ZINC PASTE 113 GM TP SCH ×2 (08:36→21:07)
[2023-01-28] MEDS: HYDROGEN PEROXIDE 3% 118 ML BOTTLE TP SCH ×2 (08:36→09:11)
[2023-01-28] MEDS: NITROFURANTOIN MACROCRYSTAL 100 MG CAPSULE GT SCH (08:36)
[2023-01-28] MEDS: SILVER SULFADIAZINE 1% CREAM 50 GM TP SCH ×4 (08:37→21:07)
[2023-01-28] MEDS: VITAMINS A AND D 5 GM UD PKT TP SCH ×2 (08:37→21:07)
[2023-01-28] MEDS: APIXABAN 2.5 MG TABLET GT SCH ×2 (08:40→21:56)
[2023-01-28] MEDS: SERTRALINE HCL 25 MG TABLET GT SCH (11:44)
[2023-01-28] MEDS: TEMAZEPAM 7.5 MG CAPSULE GT PRN (21:00)
[2023-01-28] MEDS: ASCORBIC ACID 500 MG TABLET GT SCH (21:07)
[2023-01-28] MEDS: ESTROGENS,CONJU VAGINAL CREAM 42.5 GM TUBE VG SCH (21:07)
[2023-01-28] MEDS: SIMVASTATIN 10 MG TABLET GT SCH (21:07)
[2023-01-28] MEDS: MULTIVIT, IRON, MIN NO. 8, FA TABLET GT SCH (21:07)
[2023-01-29] VITALS (17 sets, daily range): TEMP 97–98.2; O2SAT 98–99
[2023-01-29] MEDS: IPRATROPIUM BROMIDE 0.5 MG/2.5 ML NEBU NEB SCH ×6 (04:16→23:45)
[2023-01-29] MEDS: ALBUTEROL SULFATE 2.5 MG/3 ML NEBU NEB SCH ×6 (04:17→23:45)
[2023-01-29] MEDS: OMEGA-3 FATTY ACIDS/FISH OIL CAPSULE GT SCH ×2 (05:37→17:27)
[2023-01-29] MEDS: BACLOFEN 10 MG TABLET GT SCH ×4 (05:37→23:15)
[2023-01-29] MEDS: ARGININE/GLUTAMINE/CALCIUM BMB 1 EACH POWD.PACK GT SCH ×2 (05:37→17:27)
[2023-01-29] MEDS: OMEPRAZOLE 20 MG CAPSULE.DR GT SCH (05:37)
[2023-01-29] MEDS: MIDODRINE HCL 5 MG TABLET GT SCH ×3 (05:38→21:11)
[2023-01-29] MEDS: PROTEIN SUPPLEMENT (PROSTAT) 30 ML LIQUID GT SCH ×3 (05:38→21:11)
[2023-01-29] MEDS: HYDROGEN PEROXIDE 3% 118 ML BOTTLE TP SCH ×2 (07:19→23:45)
[2023-01-29] MEDS: ACETAMINOPHEN 650 MG/20.3 ML LIQUID UDC GT SCH ×2 (08:30→21:05)
[2023-01-29] MEDS: ACIDOPHILUS/BULGARICUS CHEW TAB GT SCH ×2 (09:47→21:11)
[2023-01-29] MEDS: SILVER SULFADIAZINE 1% CREAM 50 GM TP SCH ×4 (09:48→21:11)
[2023-01-29] MEDS: VITAMINS A AND D 5 GM UD PKT TP SCH ×2 (09:48→21:11)
[2023-01-29] MEDS: NITROFURANTOIN MACROCRYSTAL 100 MG CAPSULE GT SCH (09:48)
[2023-01-29] MEDS: REMEDY ESSENTIAL ZINC PASTE 113 GM TP SCH ×2 (09:48→21:11)
[2023-01-29] MEDS: APIXABAN 2.5 MG TABLET GT SCH ×2 (09:50→21:11)
[2023-01-29] MEDS: SERTRALINE HCL 25 MG TABLET GT SCH (12:00)
[2023-01-29] MEDS: MULTIVIT, IRON, MIN NO. 8, FA TABLET GT SCH (21:11)
[2023-01-29] MEDS: ESTROGENS,CONJU VAGINAL CREAM 42.5 GM TUBE VG SCH (21:11)
[2023-01-29] MEDS: SIMVASTATIN 10 MG TABLET GT SCH (21:11)
[2023-01-29] MEDS: ASCORBIC ACID 500 MG TABLET GT SCH (21:11)
[2023-01-29] MEDS: GLUCERNA 1.2 1000ML LIQUID GT PRN (21:12)
[2023-01-29] MEDS: TEMAZEPAM 7.5 MG CAPSULE GT PRN (21:14)
[2023-01-30] VITALS (15 sets, daily range): TEMP 97.4–98.8; O2SAT 98–99
[2023-01-30] MEDS: IPRATROPIUM BROMIDE 0.5 MG/2.5 ML NEBU NEB SCH ×6 (03:57→23:18)
[2023-01-30] MEDS: ALBUTEROL SULFATE 2.5 MG/3 ML NEBU NEB SCH ×6 (03:57→23:18)
[2023-01-30] MEDS: OMEGA-3 FATTY ACIDS/FISH OIL CAPSULE GT SCH ×2 (05:12→17:14)
[2023-01-30] MEDS: BACLOFEN 10 MG TABLET GT SCH ×3 (05:12→17:14)
[2023-01-30] MEDS: ARGININE/GLUTAMINE/CALCIUM BMB 1 EACH POWD.PACK GT SCH ×2 (05:12→17:14)
[2023-01-30] MEDS: OMEPRAZOLE 20 MG CAPSULE.DR GT SCH (05:12)
[2023-01-30] MEDS: PROTEIN SUPPLEMENT (PROSTAT) 30 ML LIQUID GT SCH ×3 (05:12→21:22)
[2023-01-30] MEDS: MIDODRINE HCL 5 MG TABLET GT SCH ×3 (05:13→21:20)
[2023-01-30] MEDS: HYDROGEN PEROXIDE 3% 118 ML BOTTLE TP SCH ×2 (07:10→21:30)
[2023-01-30] MEDS: ACETAMINOPHEN 650 MG/20.3 ML LIQUID UDC GT SCH ×2 (08:30→20:38)
[2023-01-30 08:38] LABS: CALCIUM 10.2 mg/dL (8.5-10.1); CREATININE 0.8 mg/dL (0.6-1.3); POTASSIUM 2.9 mmol/L (3.5-5.1)
[2023-01-30] MEDS: APIXABAN 2.5 MG TABLET GT SCH ×2 (09:18→20:41)
[2023-01-30] MEDS: ACIDOPHILUS/BULGARICUS CHEW TAB GT SCH ×2 (09:44→20:47)
[2023-01-30] MEDS: NITROFURANTOIN MACROCRYSTAL 100 MG CAPSULE GT SCH (09:45)
[2023-01-30] MEDS: VITAMINS A AND D 5 GM UD PKT TP SCH ×2 (09:45→20:48)
[2023-01-30] MEDS: REMEDY ESSENTIAL ZINC PASTE 113 GM TP SCH ×2 (09:45→20:48)
[2023-01-30] MEDS: SILVER SULFADIAZINE 1% CREAM 50 GM TP SCH ×4 (09:45→20:48)
[2023-01-30] MEDS: SERTRALINE HCL 25 MG TABLET GT SCH (11:52)
[2023-01-30] MEDS ORDERED: POTASSIUM CHLORIDE 20 MEQ POWDER PACKET GT SCH (12:00)
[2023-01-30] MEDS ORDERED: POTASSIUM CHLORIDE 10 MEQ TAB.PRT.SR XX SCH (12:00)
[2023-01-30] MEDS: POTASSIUM CHLORIDE 10 MEQ TAB.PRT.SR PO SCH ×2 (12:42→17:04)
[2023-01-30] MEDS: ASCORBIC ACID 500 MG TABLET GT SCH (20:47)
[2023-01-30] MEDS: MULTIVIT, IRON, MIN NO. 8, FA TABLET GT SCH (20:47)
[2023-01-30] MEDS: ESTROGENS,CONJU VAGINAL CREAM 42.5 GM TUBE VG SCH (20:48)
[2023-01-30] MEDS: SIMVASTATIN 10 MG TABLET GT SCH (20:48)
[2023-01-30] MEDS: GLUCERNA 1.2 1000ML LIQUID GT PRN (21:20)
[2023-01-30] MEDS: TEMAZEPAM 7.5 MG CAPSULE GT PRN (21:26)
[2023-01-31] VITALS (13 sets, daily range): TEMP 98.5–99.6; O2SAT 96–99
[2023-01-31] MEDS: IPRATROPIUM BROMIDE 0.5 MG/2.5 ML NEBU NEB SCH ×6 (02:54→23:46)
[2023-01-31] MEDS: ALBUTEROL SULFATE 2.5 MG/3 ML NEBU NEB SCH ×6 (02:54→23:46)
[2023-01-31] MEDS: BACLOFEN 10 MG TABLET GT SCH ×4 (05:17→17:10)
[2023-01-31] MEDS: ARGININE/GLUTAMINE/CALCIUM BMB 1 EACH POWD.PACK GT SCH ×2 (05:17→17:15)
[2023-01-31] MEDS: OMEGA-3 FATTY ACIDS/FISH OIL CAPSULE GT SCH ×2 (05:17→17:11)
[2023-01-31] MEDS: OMEPRAZOLE 20 MG CAPSULE.DR GT SCH (05:17)
[2023-01-31] MEDS: MIDODRINE HCL 5 MG TABLET GT SCH ×3 (05:18→21:18)
[2023-01-31] MEDS: PROTEIN SUPPLEMENT (PROSTAT) 30 ML LIQUID GT SCH ×3 (05:18→21:19)
[2023-01-31] MEDS: HYDROGEN PEROXIDE 3% 118 ML BOTTLE TP SCH ×2 (07:51→20:31)
[2023-01-31] MEDS: ACETAMINOPHEN 650 MG/20.3 ML LIQUID UDC GT SCH ×2 (08:30→21:13)
[2023-01-31] MEDS: NITROFURANTOIN MACROCRYSTAL 100 MG CAPSULE GT SCH (09:00)
[2023-01-31] MEDS: APIXABAN 2.5 MG TABLET GT SCH ×2 (09:00→21:15)
[2023-01-31] MEDS: SILVER SULFADIAZINE 1% CREAM 50 GM TP SCH ×4 (09:00→21:18)
[2023-01-31] MEDS: VITAMINS A AND D 5 GM UD PKT TP SCH ×2 (09:00→21:18)
[2023-01-31] MEDS: ACIDOPHILUS/BULGARICUS CHEW TAB GT SCH ×2 (09:00→21:16)
[2023-01-31] MEDS: REMEDY ESSENTIAL ZINC PASTE 113 GM TP SCH ×2 (09:00→21:18)
[2023-01-31] MEDS: SERTRALINE HCL 25 MG TABLET GT SCH (12:53)
[2023-01-31] MEDS: MULTIVIT, IRON, MIN NO. 8, FA TABLET GT SCH (21:17)
[2023-01-31] MEDS: FOSFOMYCIN TROMETHAMINE 3 GM PACKET GT SCH (21:17)
[2023-01-31] MEDS: ASCORBIC ACID 500 MG TABLET GT SCH (21:18)
[2023-01-31] MEDS: ESTROGENS,CONJU VAGINAL CREAM 42.5 GM TUBE VG SCH (21:18)
[2023-01-31] MEDS: SIMVASTATIN 10 MG TABLET GT SCH (21:18)
[2023-01-31] MEDS: TEMAZEPAM 7.5 MG CAPSULE GT PRN (21:21)
[2023-01-31] MEDS: GLUCERNA 1.2 1000ML LIQUID GT PRN (21:27)
[2023-02-01] VITALS (16 sets, daily range): TEMP 98.4–98.6; O2SAT 97–99
[2023-02-01] MEDS: IPRATROPIUM BROMIDE 0.5 MG/2.5 ML NEBU NEB SCH ×5 (03:05→19:14)
[2023-02-01] MEDS: ALBUTEROL SULFATE 2.5 MG/3 ML NEBU NEB SCH ×5 (03:05→19:14)
[2023-02-01] MEDS: ARGININE/GLUTAMINE/CALCIUM BMB 1 EACH POWD.PACK GT SCH ×2 (05:08→17:17)
[2023-02-01] MEDS: BACLOFEN 10 MG TABLET GT SCH ×4 (05:08→17:17)
[2023-02-01] MEDS: OMEPRAZOLE 20 MG CAPSULE.DR GT SCH (05:08)
[2023-02-01] MEDS: OMEGA-3 FATTY ACIDS/FISH OIL CAPSULE GT SCH ×2 (05:08→17:17)
[2023-02-01] MEDS: MIDODRINE HCL 5 MG TABLET GT SCH ×3 (05:43→21:02)
[2023-02-01] MEDS: PROTEIN SUPPLEMENT (PROSTAT) 30 ML LIQUID GT SCH ×3 (05:43→21:02)
[2023-02-01] MEDS: HYDROGEN PEROXIDE 3% 118 ML BOTTLE TP SCH ×2 (07:12→21:09)
[2023-02-01] MEDS: ACETAMINOPHEN 650 MG/20.3 ML LIQUID UDC GT SCH ×2 (08:42→20:58)
[2023-02-01] MEDS: ACIDOPHILUS/BULGARICUS CHEW TAB GT SCH ×2 (08:43→20:59)
[2023-02-01] MEDS: VITAMINS A AND D 5 GM UD PKT TP SCH ×2 (08:44→21:01)
[2023-02-01] MEDS: NITROFURANTOIN MACROCRYSTAL 100 MG CAPSULE GT SCH (08:44)
[2023-02-01] MEDS: REMEDY ESSENTIAL ZINC PASTE 113 GM TP SCH ×2 (08:44→21:01)
[2023-02-01] MEDS: SILVER SULFADIAZINE 1% CREAM 50 GM TP SCH ×4 (08:44→21:01)
[2023-02-01] MEDS: APIXABAN 2.5 MG TABLET GT SCH ×2 (08:45→20:59)
[2023-02-01] MEDS: SERTRALINE HCL 25 MG TABLET GT SCH (12:46)
[2023-02-01] MEDS: ASCORBIC ACID 500 MG TABLET GT SCH (21:00)
[2023-02-01] MEDS: SIMVASTATIN 10 MG TABLET GT SCH (21:00)
[2023-02-01] MEDS: MULTIVIT, IRON, MIN NO. 8, FA TABLET GT SCH (21:00)
[2023-02-01] MEDS: ESTROGENS,CONJU VAGINAL CREAM 42.5 GM TUBE VG SCH (21:01)
[2023-02-01] MEDS: TEMAZEPAM 7.5 MG CAPSULE GT PRN (21:30)
[2023-02-02] VITALS (17 sets, daily range): TEMP 97.8–98.2; O2SAT 97–99
[2023-02-02] MEDS: IPRATROPIUM BROMIDE 0.5 MG/2.5 ML NEBU NEB SCH ×6 (00:34→19:20)
[2023-02-02] MEDS: ALBUTEROL SULFATE 2.5 MG/3 ML NEBU NEB SCH ×6 (00:35→19:20)
[2023-02-02] MEDS: HYDROCODONE/APAP 10-325 MG TABLET GT PRN (03:32)
[2023-02-02] MEDS: GLUCERNA 1.2 1000ML LIQUID GT PRN (03:45)
[2023-02-02] MEDS: OMEGA-3 FATTY ACIDS/FISH OIL CAPSULE GT SCH ×2 (05:32→18:15)
[2023-02-02] MEDS: ARGININE/GLUTAMINE/CALCIUM BMB 1 EACH POWD.PACK GT SCH ×2 (05:34→18:15)
[2023-02-02] MEDS: OMEPRAZOLE 20 MG CAPSULE.DR GT SCH (05:34)
[2023-02-02] MEDS: BACLOFEN 10 MG TABLET GT SCH ×4 (05:34→18:16)
[2023-02-02] MEDS: PROTEIN SUPPLEMENT (PROSTAT) 30 ML LIQUID GT SCH ×3 (05:35→21:18)
[2023-02-02] MEDS: MIDODRINE HCL 5 MG TABLET GT SCH ×3 (05:35→21:17)
[2023-02-02] MEDS: HYDROGEN PEROXIDE 3% 118 ML BOTTLE TP SCH (07:33)
[2023-02-02] MEDS: SILVER SULFADIAZINE 1% CREAM 50 GM TP SCH ×4 (09:00→21:16)
[2023-02-02] MEDS: ACETAMINOPHEN 650 MG/20.3 ML LIQUID UDC GT SCH ×2 (09:24→21:10)
[2023-02-02] MEDS: ACIDOPHILUS/BULGARICUS CHEW TAB GT SCH ×2 (09:30→21:13)
[2023-02-02] MEDS: APIXABAN 2.5 MG TABLET GT SCH ×2 (09:30→21:12)
[2023-02-02] MEDS: NITROFURANTOIN MACROCRYSTAL 100 MG CAPSULE GT SCH (09:31)
[2023-02-02] MEDS: VITAMINS A AND D 5 GM UD PKT TP SCH ×2 (09:32→21:16)
[2023-02-02] MEDS: REMEDY ESSENTIAL ZINC PASTE 113 GM TP SCH ×2 (09:32→21:15)
[2023-02-02] MEDS: SERTRALINE HCL 25 MG TABLET GT SCH (12:29)
[2023-02-02] MEDS: ASCORBIC ACID 500 MG TABLET GT SCH (21:15)
[2023-02-02] MEDS: MULTIVIT, IRON, MIN NO. 8, FA TABLET GT SCH (21:15)
[2023-02-02] MEDS: SIMVASTATIN 10 MG TABLET GT SCH (21:15)
[2023-02-02] MEDS: ESTROGENS,CONJU VAGINAL CREAM 42.5 GM TUBE VG SCH (21:16)
[2023-02-02] MEDS: TEMAZEPAM 7.5 MG CAPSULE GT PRN (21:20)
[2023-02-03] VITALS (14 sets, daily range): TEMP 97.4–98.2; O2SAT 97–99
[2023-02-03] MEDS: IPRATROPIUM BROMIDE 0.5 MG/2.5 ML NEBU NEB SCH ×7 (00:36→23:18)
[2023-02-03] MEDS: HYDROGEN PEROXIDE 3% 118 ML BOTTLE TP SCH ×3 (00:36→21:00)
[2023-02-03] MEDS: ALBUTEROL SULFATE 2.5 MG/3 ML NEBU NEB SCH ×7 (00:37→23:18)
[2023-02-03] MEDS: HYDROCODONE/APAP 10-325 MG TABLET GT PRN (04:31)
[2023-02-03] MEDS: OMEGA-3 FATTY ACIDS/FISH OIL CAPSULE GT SCH ×2 (05:08→17:05)
[2023-02-03] MEDS: PROTEIN SUPPLEMENT (PROSTAT) 30 ML LIQUID GT SCH ×3 (05:08→22:00)
[2023-02-03] MEDS: OMEPRAZOLE 20 MG CAPSULE.DR GT SCH (05:08)
[2023-02-03] MEDS: ARGININE/GLUTAMINE/CALCIUM BMB 1 EACH POWD.PACK GT SCH ×2 (05:08→17:05)
[2023-02-03] MEDS: MIDODRINE HCL 5 MG TABLET GT SCH ×3 (05:08→22:00)
[2023-02-03] MEDS: BACLOFEN 10 MG TABLET GT SCH ×5 (05:08→23:13)
[2023-02-03] MEDS: ACIDOPHILUS/BULGARICUS CHEW TAB GT SCH ×2 (08:54→21:00)
[2023-02-03] MEDS: REMEDY ESSENTIAL ZINC PASTE 113 GM TP SCH ×2 (08:55→21:00)
[2023-02-03] MEDS: NITROFURANTOIN MACROCRYSTAL 100 MG CAPSULE GT SCH (08:55)
[2023-02-03] MEDS: APIXABAN 2.5 MG TABLET GT SCH ×2 (08:57→21:00)
[2023-02-03] MEDS: ACETAMINOPHEN 650 MG/20.3 ML LIQUID UDC GT SCH ×2 (08:57→20:30)
[2023-02-03] MEDS: VITAMINS A AND D 5 GM UD PKT TP SCH ×2 (09:00→21:00)
[2023-02-03] MEDS: SILVER SULFADIAZINE 1% CREAM 50 GM TP SCH ×4 (09:45→21:00)
[2023-02-03] MEDS: SERTRALINE HCL 25 MG TABLET GT SCH (12:53)
[2023-02-03] MEDS: GLUCERNA 1.2 1000ML LIQUID GT PRN (16:36)
[2023-02-03] MEDS: ASCORBIC ACID 500 MG TABLET GT SCH (21:00)
[2023-02-03] MEDS: SIMVASTATIN 10 MG TABLET GT SCH (21:00)
[2023-02-03] MEDS: ESTROGENS,CONJU VAGINAL CREAM 42.5 GM TUBE VG SCH (21:00)
[2023-02-03] MEDS: MULTIVIT, IRON, MIN NO. 8, FA TABLET GT SCH (21:00)
[2023-02-03] MEDS: TEMAZEPAM 7.5 MG CAPSULE GT PRN (22:22)
[2023-02-04] VITALS (12 sets, daily range): TEMP 97.8–98.8; O2SAT 97–99
[2023-02-04] MEDS: OMEGA-3 FATTY ACIDS/FISH OIL CAPSULE GT SCH ×2 (06:02→17:00)
[2023-02-04] MEDS: ARGININE/GLUTAMINE/CALCIUM BMB 1 EACH POWD.PACK GT SCH ×2 (06:02→17:00)
[2023-02-04] MEDS: BACLOFEN 10 MG TABLET GT SCH ×3 (06:02→17:00)
[2023-02-04] MEDS: OMEPRAZOLE 20 MG CAPSULE.DR GT SCH (06:02)
[2023-02-04] MEDS: MIDODRINE HCL 5 MG TABLET GT SCH ×3 (06:02→22:00)
[2023-02-04] MEDS: PROTEIN SUPPLEMENT (PROSTAT) 30 ML LIQUID GT SCH ×3 (06:02→22:20)
[2023-02-04] MEDS: ALBUTEROL SULFATE 2.5 MG/3 ML NEBU NEB SCH ×5 (07:19→23:03)
[2023-02-04] MEDS: IPRATROPIUM BROMIDE 0.5 MG/2.5 ML NEBU NEB SCH ×5 (07:19→23:03)
[2023-02-04] MEDS: HYDROGEN PEROXIDE 3% 118 ML BOTTLE TP SCH ×2 (09:08→20:51)
[2023-02-04] MEDS: ACETAMINOPHEN 650 MG/20.3 ML LIQUID UDC GT SCH ×2 (09:30→20:45)
[2023-02-04] MEDS: APIXABAN 2.5 MG TABLET GT SCH ×2 (09:47→20:50)
[2023-02-04] MEDS: ACIDOPHILUS/BULGARICUS CHEW TAB GT SCH ×2 (09:49→20:50)
[2023-02-04] MEDS: NITROFURANTOIN MACROCRYSTAL 100 MG CAPSULE GT SCH (09:49)
[2023-02-04] MEDS: SILVER SULFADIAZINE 1% CREAM 50 GM TP SCH ×4 (09:50→20:51)
[2023-02-04] MEDS: VITAMINS A AND D 5 GM UD PKT TP SCH ×2 (09:50→20:51)
[2023-02-04] MEDS: REMEDY ESSENTIAL ZINC PASTE 113 GM TP SCH ×2 (09:50→20:51)
[2023-02-04] MEDS: SERTRALINE HCL 25 MG TABLET GT SCH (12:35)
[2023-02-04] MEDS: GLUCERNA 1.2 1000ML LIQUID GT PRN (16:21)
[2023-02-04] MEDS: SIMVASTATIN 10 MG TABLET GT SCH (20:50)
[2023-02-04] MEDS: ASCORBIC ACID 500 MG TABLET GT SCH (20:50)
[2023-02-04] MEDS: MULTIVIT, IRON, MIN NO. 8, FA TABLET GT SCH (20:50)
[2023-02-04] MEDS: ESTROGENS,CONJU VAGINAL CREAM 42.5 GM TUBE VG SCH (20:51)
[2023-02-05] VITALS (11 sets, daily range): TEMP 97.7–99.2; O2SAT 95–99
[2023-02-05] MEDS: IPRATROPIUM BROMIDE 0.5 MG/2.5 ML NEBU NEB SCH ×5 (03:04→20:13)
[2023-02-05] MEDS: ALBUTEROL SULFATE 2.5 MG/3 ML NEBU NEB SCH ×5 (03:04→20:13)
[2023-02-05] MEDS: OMEGA-3 FATTY ACIDS/FISH OIL CAPSULE GT SCH ×2 (05:43→17:02)
[2023-02-05] MEDS: MIDODRINE HCL 5 MG TABLET GT SCH ×3 (05:44→21:00)
[2023-02-05] MEDS: ARGININE/GLUTAMINE/CALCIUM BMB 1 EACH POWD.PACK GT SCH ×2 (05:44→17:02)
[2023-02-05] MEDS: BACLOFEN 10 MG TABLET GT SCH ×4 (05:44→17:02)
[2023-02-05] MEDS: OMEPRAZOLE 20 MG CAPSULE.DR GT SCH (05:44)
[2023-02-05] MEDS: PROTEIN SUPPLEMENT (PROSTAT) 30 ML LIQUID GT SCH ×3 (05:45→21:00)
[2023-02-05] MEDS: NITROFURANTOIN MACROCRYSTAL 100 MG CAPSULE GT SCH (09:24)
[2023-02-05] MEDS: ACIDOPHILUS/BULGARICUS CHEW TAB GT SCH ×2 (09:24→20:57)
[2023-02-05] MEDS: APIXABAN 2.5 MG TABLET GT SCH ×2 (09:24→21:58)
[2023-02-05] MEDS: ACETAMINOPHEN 650 MG/20.3 ML LIQUID UDC GT SCH ×2 (09:24→20:39)
[2023-02-05] MEDS: SILVER SULFADIAZINE 1% CREAM 50 GM TP SCH ×4 (09:25→20:58)
[2023-02-05] MEDS: REMEDY ESSENTIAL ZINC PASTE 113 GM TP SCH ×2 (09:25→20:58)
[2023-02-05] MEDS: VITAMINS A AND D 5 GM UD PKT TP SCH ×2 (09:25→20:58)
[2023-02-05] MEDS: HYDROGEN PEROXIDE 3% 118 ML BOTTLE TP SCH (09:42)
[2023-02-05] MEDS: SERTRALINE HCL 25 MG TABLET GT SCH (11:22)
[2023-02-05] MEDS: MULTIVIT, IRON, MIN NO. 8, FA TABLET GT SCH (20:57)
[2023-02-05] MEDS: ASCORBIC ACID 500 MG TABLET GT SCH (20:57)
[2023-02-05] MEDS: SIMVASTATIN 10 MG TABLET GT SCH (20:58)
[2023-02-05] MEDS: ESTROGENS,CONJU VAGINAL CREAM 42.5 GM TUBE VG SCH (20:58)
[2023-02-06] VITALS (15 sets, daily range): TEMP 96.7–98; O2SAT 95–99
[2023-02-06] MEDS: ALBUTEROL SULFATE 2.5 MG/3 ML NEBU NEB SCH ×7 (00:48→23:30)
[2023-02-06] MEDS: HYDROGEN PEROXIDE 3% 118 ML BOTTLE TP SCH ×3 (00:48→20:21)
[2023-02-06] MEDS: IPRATROPIUM BROMIDE 0.5 MG/2.5 ML NEBU NEB SCH ×7 (00:48→23:30)
[2023-02-06] MEDS: BACLOFEN 10 MG TABLET GT SCH ×5 (00:58→23:52)
[2023-02-06] MEDS: ARGININE/GLUTAMINE/CALCIUM BMB 1 EACH POWD.PACK GT SCH ×2 (06:57→17:15)
[2023-02-06] MEDS: OMEGA-3 FATTY ACIDS/FISH OIL CAPSULE GT SCH ×2 (06:57→17:15)
[2023-02-06] MEDS: OMEPRAZOLE 20 MG CAPSULE.DR GT SCH (06:57)
[2023-02-06] MEDS: MIDODRINE HCL 5 MG TABLET GT SCH ×3 (06:58→21:52)
[2023-02-06] MEDS: PROTEIN SUPPLEMENT (PROSTAT) 30 ML LIQUID GT SCH ×3 (06:58→21:52)
[2023-02-06] MEDS: APIXABAN 2.5 MG TABLET GT SCH ×2 (09:07→21:00)
[2023-02-06] MEDS: ACETAMINOPHEN 650 MG/20.3 ML LIQUID UDC GT SCH ×2 (09:16→20:30)
[2023-02-06] MEDS: ACIDOPHILUS/BULGARICUS CHEW TAB GT SCH ×2 (09:16→21:49)
[2023-02-06] MEDS: SILVER SULFADIAZINE 1% CREAM 50 GM TP SCH ×4 (09:16→21:51)
[2023-02-06] MEDS: NITROFURANTOIN MACROCRYSTAL 100 MG CAPSULE GT SCH (09:16)
[2023-02-06] MEDS: REMEDY ESSENTIAL ZINC PASTE 113 GM TP SCH ×2 (09:16→21:51)
[2023-02-06] MEDS: VITAMINS A AND D 5 GM UD PKT TP SCH ×2 (09:17→21:51)
[2023-02-06] MEDS: SERTRALINE HCL 25 MG TABLET GT SCH (12:06)
[2023-02-06] MEDS: MULTIVIT, IRON, MIN NO. 8, FA TABLET GT SCH (21:49)
[2023-02-06] MEDS: ESTROGENS,CONJU VAGINAL CREAM 42.5 GM TUBE VG SCH (21:51)
[2023-02-06] MEDS: SIMVASTATIN 10 MG TABLET GT SCH (21:51)
[2023-02-06] MEDS: ASCORBIC ACID 500 MG TABLET GT SCH (21:51)
[2023-02-07] VITALS (16 sets, daily range): TEMP 98.1–99.6; O2SAT 95–97
[2023-02-07] MEDS: ALBUTEROL SULFATE 2.5 MG/3 ML NEBU NEB SCH ×5 (04:09→19:35)
[2023-02-07] MEDS: IPRATROPIUM BROMIDE 0.5 MG/2.5 ML NEBU NEB SCH ×5 (04:09→19:34)
[2023-02-07] MEDS: BACLOFEN 10 MG TABLET GT SCH ×3 (05:16→18:28)
[2023-02-07] MEDS: ARGININE/GLUTAMINE/CALCIUM BMB 1 EACH POWD.PACK GT SCH ×2 (05:16→18:28)
[2023-02-07] MEDS: OMEGA-3 FATTY ACIDS/FISH OIL CAPSULE GT SCH ×2 (05:16→18:28)
[2023-02-07] MEDS: OMEPRAZOLE 20 MG CAPSULE.DR GT SCH (05:16)
[2023-02-07] MEDS: MIDODRINE HCL 5 MG TABLET GT SCH ×3 (05:17→21:52)
[2023-02-07] MEDS: PROTEIN SUPPLEMENT (PROSTAT) 30 ML LIQUID GT SCH ×3 (05:17→21:52)
[2023-02-07] MEDS: HYDROCODONE/APAP 10-325 MG TABLET GT PRN (08:07)
[2023-02-07] MEDS: HYDROGEN PEROXIDE 3% 118 ML BOTTLE TP SCH ×2 (08:24→22:17)
[2023-02-07] MEDS: SILVER SULFADIAZINE 1% CREAM 50 GM TP SCH ×4 (09:00→21:51)
[2023-02-07] MEDS: REMEDY ESSENTIAL ZINC PASTE 113 GM TP SCH ×2 (09:04→21:51)
[2023-02-07] MEDS: APIXABAN 2.5 MG TABLET GT SCH ×2 (09:04→21:51)
[2023-02-07] MEDS: NITROFURANTOIN MACROCRYSTAL 100 MG CAPSULE GT SCH (09:04)
[2023-02-07] MEDS: VITAMINS A AND D 5 GM UD PKT TP SCH ×2 (09:04→21:51)
[2023-02-07] MEDS: ACIDOPHILUS/BULGARICUS CHEW TAB GT SCH ×2 (09:04→21:51)
[2023-02-07] MEDS: ACETAMINOPHEN 650 MG/20.3 ML LIQUID UDC GT SCH ×2 (09:05→20:30)
[2023-02-07] MEDS: SERTRALINE HCL 25 MG TABLET GT SCH (11:49)
[2023-02-07] MEDS: ESTROGENS,CONJU VAGINAL CREAM 42.5 GM TUBE VG SCH (21:51)
[2023-02-07] MEDS: FOSFOMYCIN TROMETHAMINE 3 GM PACKET GT SCH (21:51)
[2023-02-07] MEDS: ASCORBIC ACID 500 MG TABLET GT SCH (21:51)
[2023-02-07] MEDS: SIMVASTATIN 10 MG TABLET GT SCH (21:51)
[2023-02-07] MEDS: MULTIVIT, IRON, MIN NO. 8, FA TABLET GT SCH (21:51)
[2023-02-07] MEDS: TEMAZEPAM 7.5 MG CAPSULE GT PRN (22:00)
[2023-02-08] VITALS (13 sets, daily range): TEMP 97.8–98.6; O2SAT 95–99
[2023-02-08] MEDS: IPRATROPIUM BROMIDE 0.5 MG/2.5 ML NEBU NEB SCH ×7 (00:12→23:47)
[2023-02-08] MEDS: ALBUTEROL SULFATE 2.5 MG/3 ML NEBU NEB SCH ×7 (00:13→23:47)
[2023-02-08] MEDS: BACLOFEN 10 MG TABLET GT SCH ×4 (00:36→17:37)
[2023-02-08] MEDS: GLUCERNA 1.2 1000ML LIQUID GT PRN (04:21)
[2023-02-08] MEDS: OMEGA-3 FATTY ACIDS/FISH OIL CAPSULE GT SCH ×2 (05:51→17:37)
[2023-02-08] MEDS: OMEPRAZOLE 20 MG CAPSULE.DR GT SCH (05:51)
[2023-02-08] MEDS: ARGININE/GLUTAMINE/CALCIUM BMB 1 EACH POWD.PACK GT SCH ×2 (05:51→17:37)
[2023-02-08] MEDS: MIDODRINE HCL 5 MG TABLET GT SCH ×3 (05:52→21:57)
[2023-02-08] MEDS: PROTEIN SUPPLEMENT (PROSTAT) 30 ML LIQUID GT SCH ×3 (05:53→21:57)
[2023-02-08] MEDS: ACETAMINOPHEN 650 MG/20.3 ML LIQUID UDC GT SCH ×2 (08:24→20:30)
[2023-02-08] MEDS: NITROFURANTOIN MACROCRYSTAL 100 MG CAPSULE GT SCH (08:26)
[2023-02-08] MEDS: ACIDOPHILUS/BULGARICUS CHEW TAB GT SCH ×2 (08:26→21:56)
[2023-02-08] MEDS: APIXABAN 2.5 MG TABLET GT SCH ×2 (08:26→21:56)
[2023-02-08] MEDS: VITAMINS A AND D 5 GM UD PKT TP SCH ×2 (08:27→21:56)
[2023-02-08] MEDS: SILVER SULFADIAZINE 1% CREAM 50 GM TP SCH ×4 (08:27→21:56)
[2023-02-08] MEDS: REMEDY ESSENTIAL ZINC PASTE 113 GM TP SCH ×2 (08:27→21:56)
[2023-02-08] MEDS: HYDROGEN PEROXIDE 3% 118 ML BOTTLE TP SCH ×2 (08:57→21:04)
[2023-02-08] MEDS: SERTRALINE HCL 25 MG TABLET GT SCH (12:00)
[2023-02-08] MEDS: SIMVASTATIN 10 MG TABLET GT SCH (21:56)
[2023-02-08] MEDS: ESTROGENS,CONJU VAGINAL CREAM 42.5 GM TUBE VG SCH (21:56)
[2023-02-08] MEDS: MULTIVIT, IRON, MIN NO. 8, FA TABLET GT SCH (21:56)
[2023-02-08] MEDS: ASCORBIC ACID 500 MG TABLET GT SCH (21:56)
[2023-02-08] MEDS: TEMAZEPAM 7.5 MG CAPSULE GT PRN (22:00)
[2023-02-09] VITALS (15 sets, daily range): TEMP 97.9–98; O2SAT 97–99
[2023-02-09] MEDS: BACLOFEN 10 MG TABLET GT SCH ×5 (00:06→23:04)
[2023-02-09] MEDS: ALBUTEROL SULFATE 2.5 MG/3 ML NEBU NEB SCH ×6 (03:17→23:31)
[2023-02-09] MEDS: IPRATROPIUM BROMIDE 0.5 MG/2.5 ML NEBU NEB SCH ×6 (03:17→23:31)
[2023-02-09] MEDS: OMEGA-3 FATTY ACIDS/FISH OIL CAPSULE GT SCH ×2 (05:41→17:06)
[2023-02-09] MEDS: ARGININE/GLUTAMINE/CALCIUM BMB 1 EACH POWD.PACK GT SCH ×2 (05:42→17:06)
[2023-02-09] MEDS: OMEPRAZOLE 20 MG CAPSULE.DR GT SCH (05:42)
[2023-02-09] MEDS: MIDODRINE HCL 5 MG TABLET GT SCH ×3 (05:43→21:48)
[2023-02-09] MEDS: PROTEIN SUPPLEMENT (PROSTAT) 30 ML LIQUID GT SCH ×3 (05:43→21:48)
[2023-02-09] MEDS: HYDROGEN PEROXIDE 3% 118 ML BOTTLE TP SCH ×2 (08:54→19:30)
[2023-02-09] MEDS: ACETAMINOPHEN 650 MG/20.3 ML LIQUID UDC GT SCH ×2 (09:18→20:30)
[2023-02-09] MEDS: APIXABAN 2.5 MG TABLET GT SCH ×2 (09:19→21:47)
[2023-02-09] MEDS: ACIDOPHILUS/BULGARICUS CHEW TAB GT SCH ×2 (09:20→21:47)
[2023-02-09] MEDS: NITROFURANTOIN MACROCRYSTAL 100 MG CAPSULE GT SCH (09:20)
[2023-02-09] MEDS: SILVER SULFADIAZINE 1% CREAM 50 GM TP SCH ×4 (09:21→21:47)
[2023-02-09] MEDS: REMEDY ESSENTIAL ZINC PASTE 113 GM TP SCH ×2 (09:21→21:47)
[2023-02-09] MEDS: VITAMINS A AND D 5 GM UD PKT TP SCH ×2 (09:21→21:47)
[2023-02-09] MEDS: GLUCERNA 1.2 1000ML LIQUID GT PRN (09:24)
[2023-02-09] MEDS: SERTRALINE HCL 25 MG TABLET GT SCH (12:28)
[2023-02-09] MEDS: MULTIVIT, IRON, MIN NO. 8, FA TABLET GT SCH (21:47)
[2023-02-09] MEDS: ESTROGENS,CONJU VAGINAL CREAM 42.5 GM TUBE VG SCH (21:47)
[2023-02-09] MEDS: SIMVASTATIN 10 MG TABLET GT SCH (21:47)
[2023-02-09] MEDS: ASCORBIC ACID 500 MG TABLET GT SCH (21:47)
[2023-02-09] MEDS: TEMAZEPAM 7.5 MG CAPSULE GT PRN (22:00)
[2023-02-10] VITALS (14 sets, daily range): TEMP 97.7–99.4; O2SAT 96–99
[2023-02-10] MEDS: IPRATROPIUM BROMIDE 0.5 MG/2.5 ML NEBU NEB SCH ×6 (03:02→23:23)
[2023-02-10] MEDS: ALBUTEROL SULFATE 2.5 MG/3 ML NEBU NEB SCH ×6 (03:02→23:23)
[2023-02-10] MEDS: OMEGA-3 FATTY ACIDS/FISH OIL CAPSULE GT SCH ×2 (05:11→17:28)
[2023-02-10] MEDS: ARGININE/GLUTAMINE/CALCIUM BMB 1 EACH POWD.PACK GT SCH ×2 (05:11→17:28)
[2023-02-10] MEDS: PROTEIN SUPPLEMENT (PROSTAT) 30 ML LIQUID GT SCH ×3 (05:12→21:03)
[2023-02-10] MEDS: OMEPRAZOLE 20 MG CAPSULE.DR GT SCH (05:12)
[2023-02-10] MEDS: BACLOFEN 10 MG TABLET GT SCH ×3 (05:12→17:28)
[2023-02-10] MEDS: MIDODRINE HCL 5 MG TABLET GT SCH ×3 (05:14→21:02)
[2023-02-10] MEDS: HYDROGEN PEROXIDE 3% 118 ML BOTTLE TP SCH ×2 (07:40→19:25)
[2023-02-10] MEDS: ACETAMINOPHEN 650 MG/20.3 ML LIQUID UDC GT SCH ×2 (08:30→20:57)
[2023-02-10] MEDS: ACIDOPHILUS/BULGARICUS CHEW TAB GT SCH ×2 (09:00→21:02)
[2023-02-10] MEDS: APIXABAN 2.5 MG TABLET GT SCH ×2 (09:00→21:02)
[2023-02-10] MEDS: NITROFURANTOIN MACROCRYSTAL 100 MG CAPSULE GT SCH (09:00)
[2023-02-10] MEDS: REMEDY ESSENTIAL ZINC PASTE 113 GM TP SCH ×2 (09:00→20:57)
[2023-02-10] MEDS: SILVER SULFADIAZINE 1% CREAM 50 GM TP SCH ×4 (09:00→20:58)
[2023-02-10] MEDS: VITAMINS A AND D 5 GM UD PKT TP SCH ×2 (09:00→20:56)
[2023-02-10] MEDS: SERTRALINE HCL 25 MG TABLET GT SCH (12:00)
[2023-02-10] MEDS: GLUCERNA 1.2 1000ML LIQUID GT PRN (17:27)
[2023-02-10] MEDS: MULTIVIT, IRON, MIN NO. 8, FA TABLET GT SCH (20:56)
[2023-02-10] MEDS: ASCORBIC ACID 500 MG TABLET GT SCH (20:56)
[2023-02-10] MEDS: SIMVASTATIN 10 MG TABLET GT SCH (20:57)
[2023-02-10] MEDS: ESTROGENS,CONJU VAGINAL CREAM 42.5 GM TUBE VG SCH (20:58)
[2023-02-11] VITALS (14 sets, daily range): TEMP 98.7–98.8; O2SAT 97–99
[2023-02-11] MEDS: BACLOFEN 10 MG TABLET GT SCH ×4 (00:41→17:22)
[2023-02-11] MEDS: ALBUTEROL SULFATE 2.5 MG/3 ML NEBU NEB SCH ×6 (03:19→23:39)
[2023-02-11] MEDS: IPRATROPIUM BROMIDE 0.5 MG/2.5 ML NEBU NEB SCH ×6 (03:19→23:39)
[2023-02-11] MEDS: HYDROCODONE/APAP 10-325 MG TABLET GT PRN (04:09)
[2023-02-11] MEDS: OMEGA-3 FATTY ACIDS/FISH OIL CAPSULE GT SCH ×2 (05:07→17:21)
[2023-02-11] MEDS: PROTEIN SUPPLEMENT (PROSTAT) 30 ML LIQUID GT SCH ×3 (05:08→21:33)
[2023-02-11] MEDS: OMEPRAZOLE 20 MG CAPSULE.DR GT SCH (05:08)
[2023-02-11] MEDS: ARGININE/GLUTAMINE/CALCIUM BMB 1 EACH POWD.PACK GT SCH ×2 (05:08→17:21)
[2023-02-11] MEDS: MIDODRINE HCL 5 MG TABLET GT SCH ×3 (05:21→21:33)
[2023-02-11] MEDS: HYDROGEN PEROXIDE 3% 118 ML BOTTLE TP SCH ×2 (07:28→21:30)
[2023-02-11] MEDS: ACETAMINOPHEN 650 MG/20.3 ML LIQUID UDC GT SCH ×2 (08:49→21:28)
[2023-02-11] MEDS: ACIDOPHILUS/BULGARICUS CHEW TAB GT SCH ×2 (08:50→21:30)
[2023-02-11] MEDS: REMEDY ESSENTIAL ZINC PASTE 113 GM TP SCH ×2 (08:50→21:31)
[2023-02-11] MEDS: NITROFURANTOIN MACROCRYSTAL 100 MG CAPSULE GT SCH (08:50)
[2023-02-11] MEDS: APIXABAN 2.5 MG TABLET GT SCH ×2 (08:53→21:52)
[2023-02-11] MEDS: VITAMINS A AND D 5 GM UD PKT TP SCH ×2 (09:56→21:32)
[2023-02-11] MEDS: SILVER SULFADIAZINE 1% CREAM 50 GM TP SCH ×4 (09:56→21:32)
[2023-02-11] MEDS: SERTRALINE HCL 25 MG TABLET GT SCH (12:00)
[2023-02-11] MEDS: MULTIVIT, IRON, MIN NO. 8, FA TABLET GT SCH (21:31)
[2023-02-11] MEDS: ASCORBIC ACID 500 MG TABLET GT SCH (21:31)
[2023-02-11] MEDS: SIMVASTATIN 10 MG TABLET GT SCH (21:31)
[2023-02-11] MEDS: ESTROGENS,CONJU VAGINAL CREAM 42.5 GM TUBE VG SCH (21:32)
[2023-02-11] MEDS: TEMAZEPAM 7.5 MG CAPSULE GT PRN (21:35)
[2023-02-12] VITALS (14 sets, daily range): TEMP 97.8–98.8; O2SAT 98–99
[2023-02-12] MEDS: ALBUTEROL SULFATE 2.5 MG/3 ML NEBU NEB SCH ×6 (03:10→23:01)
[2023-02-12] MEDS: IPRATROPIUM BROMIDE 0.5 MG/2.5 ML NEBU NEB SCH ×6 (03:10→23:01)
[2023-02-12] MEDS: OMEGA-3 FATTY ACIDS/FISH OIL CAPSULE GT SCH ×2 (05:12→17:00)
[2023-02-12] MEDS: BACLOFEN 10 MG TABLET GT SCH ×5 (05:12→23:11)
[2023-02-12] MEDS: OMEPRAZOLE 20 MG CAPSULE.DR GT SCH (05:12)
[2023-02-12] MEDS: ARGININE/GLUTAMINE/CALCIUM BMB 1 EACH POWD.PACK GT SCH ×2 (05:12→17:00)
[2023-02-12] MEDS: PROTEIN SUPPLEMENT (PROSTAT) 30 ML LIQUID GT SCH ×3 (05:12→21:13)
[2023-02-12] MEDS: GLUCERNA 1.2 1000ML LIQUID GT PRN (05:12)
[2023-02-12] MEDS: MIDODRINE HCL 5 MG TABLET GT SCH ×3 (05:12→21:11)
[2023-02-12] MEDS: HYDROGEN PEROXIDE 3% 118 ML BOTTLE TP SCH ×2 (07:10→20:44)
[2023-02-12] MEDS: ACETAMINOPHEN 650 MG/20.3 ML LIQUID UDC GT SCH ×2 (08:08→20:57)
[2023-02-12] MEDS: ACIDOPHILUS/BULGARICUS CHEW TAB GT SCH ×2 (08:08→20:58)
[2023-02-12] MEDS: REMEDY ESSENTIAL ZINC PASTE 113 GM TP SCH ×2 (08:10→20:58)
[2023-02-12] MEDS: NITROFURANTOIN MACROCRYSTAL 100 MG CAPSULE GT SCH (08:10)
[2023-02-12] MEDS: SILVER SULFADIAZINE 1% CREAM 50 GM TP SCH ×4 (08:10→20:59)
[2023-02-12] MEDS: VITAMINS A AND D 5 GM UD PKT TP SCH ×2 (08:11→20:59)
[2023-02-12] MEDS: APIXABAN 2.5 MG TABLET GT SCH ×2 (09:33→20:58)
[2023-02-12] MEDS: SERTRALINE HCL 25 MG TABLET GT SCH (12:03)
[2023-02-12] MEDS: ASCORBIC ACID 500 MG TABLET GT SCH (20:58)
[2023-02-12] MEDS: MULTIVIT, IRON, MIN NO. 8, FA TABLET GT SCH (20:58)
[2023-02-12] MEDS: SIMVASTATIN 10 MG TABLET GT SCH (20:58)
[2023-02-12] MEDS: ESTROGENS,CONJU VAGINAL CREAM 42.5 GM TUBE VG SCH (20:59)
[2023-02-13] VITALS (17 sets, daily range): TEMP 99–100.4; O2SAT 87–99
[2023-02-13] MEDS: ALBUTEROL SULFATE 2.5 MG/3 ML NEBU NEB SCH ×6 (02:58→23:28)
[2023-02-13] MEDS: IPRATROPIUM BROMIDE 0.5 MG/2.5 ML NEBU NEB SCH ×6 (02:58→23:28)
[2023-02-13] MEDS: OMEGA-3 FATTY ACIDS/FISH OIL CAPSULE GT SCH ×2 (05:18→18:11)
[2023-02-13] MEDS: MIDODRINE HCL 5 MG TABLET GT SCH ×3 (05:18→21:10)
[2023-02-13] MEDS: PROTEIN SUPPLEMENT (PROSTAT) 30 ML LIQUID GT SCH ×3 (05:18→21:10)
[2023-02-13] MEDS: BACLOFEN 10 MG TABLET GT SCH ×3 (05:18→18:11)
[2023-02-13] MEDS: OMEPRAZOLE 20 MG CAPSULE.DR GT SCH (05:18)
[2023-02-13] MEDS: ARGININE/GLUTAMINE/CALCIUM BMB 1 EACH POWD.PACK GT SCH ×2 (05:18→18:11)
[2023-02-13 08:04] LABS: CALCIUM 9.9 mg/dL (8.5-10.1); CREATININE 1.2 mg/dL (0.6-1.3); POTASSIUM 3.4 mmol/L (3.5-5.1)
[2023-02-13] MEDS: ACETAMINOPHEN 650 MG/20.3 ML LIQUID UDC GT SCH ×2 (08:40→20:38)
[2023-02-13] MEDS: ACIDOPHILUS/BULGARICUS CHEW TAB GT SCH ×2 (08:46→20:39)
[2023-02-13] MEDS: APIXABAN 2.5 MG TABLET GT SCH ×2 (08:46→20:39)
[2023-02-13] MEDS: NITROFURANTOIN MACROCRYSTAL 100 MG CAPSULE GT SCH (08:47)
[2023-02-13] MEDS: VITAMINS A AND D 5 GM UD PKT TP SCH ×2 (08:48→20:40)
[2023-02-13] MEDS: SILVER SULFADIAZINE 1% CREAM 50 GM TP SCH ×4 (08:48→20:40)
[2023-02-13] MEDS: REMEDY ESSENTIAL ZINC PASTE 113 GM TP SCH ×2 (08:48→20:40)
[2023-02-13 09:25] LABS: BASOPHILS # (AUTO) 0.1 K/UL (0.0-0.2); BASOPHILS % (AUTO) 0.6 % (0.0-2.0); EOSINOPHILS # (AUTO) 0.1 K/uL (0.0-0.7); EOSINOPHILS % (AUTO) 0.4 % (0.0-7.0); HEMATOCRIT 36.5 % (31.2-41.9); HEMOGLOBIN 10.8 g/dL (10.9-14.3); LYMPHOCYTES # (AUTO) 2.2 K/uL (0.8-4.8); LYMPHOCYTES % (AUTO) 11.1 % (20.5-51.5); MEAN CORPUSCULAR HGB CONC 30 g/dL (32.3-35.6); MEAN CORPUSCULAR VOLUME 77.6 fL (75.5-95.3); MONOCYTES # (AUTO) 1.4 K/uL (0.1-1.30); MONOCYTES % (AUTO) 7.3 % (0.0-11.0); NEUTROPHILS # (AUTO) 15.9 K/uL (1.8-8.9); NEUTROPHILS % (AUTO) 80.6 % (38.5-71.5); PLATELET COUNT (AUTO) 249 K/uL (179-408); RED CELL DISTRIBUTION WIDTH 21.1 % (12.3-17.7); WHITE BLOOD COUNT (AUTO) 19.7 K/uL (3.8-11.8)
[2023-02-13] MEDS: HYDROGEN PEROXIDE 3% 118 ML BOTTLE TP SCH ×2 (09:30→19:59)
[2023-02-13 09:31] LABS: DIFFERENTIAL COMMENT 1
[2023-02-13] MEDS: SERTRALINE HCL 25 MG TABLET GT SCH (13:00)
[2023-02-13] MEDS ORDERED: POTASSIUM CHLORIDE 10 MEQ TAB.PRT.SR XX ONE (14:00)
[2023-02-13 14:32] LABS: *CLARITY,URINE CLOUDY (CLEAR); *COLOR,URINE YELLOW (YELLOW)
[2023-02-13 14:34] LABS: *PROTEIN,URINE 2+ (NEGATIVE); PH,URINE 6.5 (5.0-8.0)
[2023-02-13 14:35] LABS: *BILIRUBIN,URIN NEGATIVE (NEGATIVE); *BLOOD, URINE 3+ (NEGATIVE)
[2023-02-13 14:36] LABS: *KETONES,URINE NEGATIVE (NEGATIVE); *UROBILINOGEN,URINE 0.2 E.U./dl (NORMAL); NITRITE, URINE NEGATIVE (NEGATIVE)
[2023-02-13 14:38] LABS: LEUKOCYTE ESTERASE ,URINE 3+ (NEGATIVE)
[2023-02-13 14:39] LABS: UGLUCOSE NEGATIVE (NEGATIVE)
[2023-02-13 15:20] LABS: RBC,URINE 80-100 /HPF (0-3)
[2023-02-13 15:21] LABS: BACTERIA,URINE MANY /HPF (NONE SEEN); SQUAMOUS EPITHELIAL CELL,UR FEW /HPF (NONE SEEN); WBC,URINE TNTC /HPF (0-3)
[2023-02-13] MEDS ORDERED: IV D5W 1000ML 1,000 ML IV PRN (17:00)
[2023-02-13] MEDS: CEFEPIME HCL 1 G in IV DEXTROSE 5% 50 ML IV SCH (17:39)
[2023-02-13] MEDS: D5W IV SCH (17:41)
[2023-02-13] MEDS: VANCOMYCIN IV SCH (17:41)
[2023-02-13] MEDS: MULTIVIT, IRON, MIN NO. 8, FA TABLET GT SCH (20:39)
[2023-02-13] MEDS: SIMVASTATIN 10 MG TABLET GT SCH (20:40)
[2023-02-13] MEDS: ASCORBIC ACID 500 MG TABLET GT SCH (20:40)
[2023-02-13] MEDS: ESTROGENS,CONJU VAGINAL CREAM 42.5 GM TUBE VG SCH (20:40)
[2023-02-13] MEDS: TEMAZEPAM 7.5 MG CAPSULE GT PRN (21:11)
[2023-02-14] VITALS (14 sets, daily range): TEMP 98.7–99.8; O2SAT 87–99
[2023-02-14] MEDS: ALBUTEROL SULFATE 2.5 MG/3 ML NEBU NEB SCH ×6 (03:39→23:25)
[2023-02-14] MEDS: IPRATROPIUM BROMIDE 0.5 MG/2.5 ML NEBU NEB SCH ×6 (03:39→23:25)
[2023-02-14] MEDS: OMEGA-3 FATTY ACIDS/FISH OIL CAPSULE GT SCH ×2 (05:58→17:01)
[2023-02-14] MEDS: OMEPRAZOLE 20 MG CAPSULE.DR GT SCH (05:58)
[2023-02-14] MEDS: PROTEIN SUPPLEMENT (PROSTAT) 30 ML LIQUID GT SCH ×3 (05:58→21:53)
[2023-02-14] MEDS: ARGININE/GLUTAMINE/CALCIUM BMB 1 EACH POWD.PACK GT SCH ×2 (05:58→17:01)
[2023-02-14] MEDS: MIDODRINE HCL 5 MG TABLET GT SCH ×3 (05:58→21:53)
[2023-02-14] MEDS: BACLOFEN 10 MG TABLET GT SCH ×4 (05:58→17:01)
[2023-02-14] MEDS: HYDROGEN PEROXIDE 3% 118 ML BOTTLE TP SCH ×2 (07:29→19:20)
[2023-02-14] MEDS: ACETAMINOPHEN 650 MG/20.3 ML LIQUID UDC GT SCH ×2 (08:55→20:43)
[2023-02-14] MEDS: APIXABAN 2.5 MG TABLET GT SCH ×2 (08:56→21:00)
[2023-02-14] MEDS: REMEDY ESSENTIAL ZINC PASTE 113 GM TP SCH ×2 (08:57→20:44)
[2023-02-14] MEDS: VITAMINS A AND D 5 GM UD PKT TP SCH ×2 (08:57→20:45)
[2023-02-14] MEDS: ACIDOPHILUS/BULGARICUS CHEW TAB GT SCH ×2 (08:57→20:44)
[2023-02-14] MEDS: SILVER SULFADIAZINE 1% CREAM 50 GM TP SCH ×4 (08:57→20:45)
[2023-02-14] MEDS: SERTRALINE HCL 25 MG TABLET GT SCH (12:07)
[2023-02-14] MEDS: GLUCERNA 1.2 1000ML LIQUID GT PRN (12:12)
[2023-02-14] MEDS: CEFEPIME HCL 1 G in IV DEXTROSE 5% 50 ML IV SCH (16:16)
[2023-02-14] MEDS: VANCOMYCIN IV SCH (18:00)
[2023-02-14] MEDS: D5W IV SCH (18:00)
[2023-02-14] MEDS: ASCORBIC ACID 500 MG TABLET GT SCH (20:44)
[2023-02-14] MEDS: MULTIVIT, IRON, MIN NO. 8, FA TABLET GT SCH (20:44)
[2023-02-14] MEDS: ESTROGENS,CONJU VAGINAL CREAM 42.5 GM TUBE VG SCH (20:45)
[2023-02-14] MEDS: FOSFOMYCIN TROMETHAMINE 3 GM PACKET GT SCH (20:50)
[2023-02-14] MEDS: SIMVASTATIN 10 MG TABLET GT SCH (21:51)
[2023-02-15] VITALS (14 sets, daily range): TEMP 97.6–99.2; O2SAT 97–99
[2023-02-15] MEDS: BACLOFEN 10 MG TABLET GT SCH ×5 (00:10→23:22)
[2023-02-15] MEDS: ALBUTEROL SULFATE 2.5 MG/3 ML NEBU NEB SCH ×6 (03:02→23:30)
[2023-02-15] MEDS: IPRATROPIUM BROMIDE 0.5 MG/2.5 ML NEBU NEB SCH ×6 (03:02→23:30)
[2023-02-15] MEDS: OMEGA-3 FATTY ACIDS/FISH OIL CAPSULE GT SCH ×2 (05:13→17:32)
[2023-02-15] MEDS: MIDODRINE HCL 5 MG TABLET GT SCH ×3 (05:14→22:00)
[2023-02-15] MEDS: OMEPRAZOLE 20 MG CAPSULE.DR GT SCH (05:14)
[2023-02-15] MEDS: PROTEIN SUPPLEMENT (PROSTAT) 30 ML LIQUID GT SCH ×3 (05:14→22:00)
[2023-02-15] MEDS: ARGININE/GLUTAMINE/CALCIUM BMB 1 EACH POWD.PACK GT SCH ×2 (05:14→17:32)
[2023-02-15] MEDS: HYDROGEN PEROXIDE 3% 118 ML BOTTLE TP SCH ×2 (07:15→19:00)
[2023-02-15] MEDS: SILVER SULFADIAZINE 1% CREAM 50 GM TP SCH ×4 (08:50→20:42)
[2023-02-15] MEDS: VITAMINS A AND D 5 GM UD PKT TP SCH ×2 (08:50→20:42)
[2023-02-15] MEDS: ACETAMINOPHEN 650 MG/20.3 ML LIQUID UDC GT SCH ×2 (08:50→20:43)
[2023-02-15] MEDS: ACIDOPHILUS/BULGARICUS CHEW TAB GT SCH ×2 (08:50→20:43)
[2023-02-15] MEDS: REMEDY ESSENTIAL ZINC PASTE 113 GM TP SCH ×2 (08:50→20:43)
[2023-02-15] MEDS: NORMAL SALINE FLUSH 10 ML DISP.SYRIN IV SCH ×2 (09:44→20:43)
[2023-02-15] MEDS: APIXABAN 2.5 MG TABLET GT SCH ×2 (09:44→21:00)
[2023-02-15] MEDS: SERTRALINE HCL 25 MG TABLET GT SCH (12:05)
[2023-02-15] MEDS: CEFEPIME HCL 1 G in IV DEXTROSE 5% 50 ML IV SCH (17:31)
[2023-02-15 17:43] LABS: CREATININE 0.8 mg/dL (0.6-1.3)
[2023-02-15] MEDS: VANCOMYCIN IV SCH (18:57)
[2023-02-15] MEDS: D5W IV SCH (18:57)
[2023-02-15] MEDS: SIMVASTATIN 10 MG TABLET GT SCH (20:43)
[2023-02-15] MEDS: MULTIVIT, IRON, MIN NO. 8, FA TABLET GT SCH (20:43)
[2023-02-15] MEDS: ASCORBIC ACID 500 MG TABLET GT SCH (20:43)
[2023-02-15] MEDS: ESTROGENS,CONJU VAGINAL CREAM 42.5 GM TUBE VG SCH (20:44)
[2023-02-15] MEDS: TEMAZEPAM 7.5 MG CAPSULE GT PRN (20:59)
[2023-02-16] VITALS (15 sets, daily range): TEMP 96–96.8; O2SAT 96–99
[2023-02-16] MEDS: IPRATROPIUM BROMIDE 0.5 MG/2.5 ML NEBU NEB SCH ×6 (03:51→23:04)
[2023-02-16] MEDS: ALBUTEROL SULFATE 2.5 MG/3 ML NEBU NEB SCH ×6 (03:51→23:05)
[2023-02-16] MEDS: ARGININE/GLUTAMINE/CALCIUM BMB 1 EACH POWD.PACK GT SCH ×2 (06:00→17:34)
[2023-02-16] MEDS: OMEPRAZOLE 20 MG CAPSULE.DR GT SCH (06:04)
[2023-02-16] MEDS: MIDODRINE HCL 5 MG TABLET GT SCH ×3 (06:04→21:57)
[2023-02-16] MEDS: OMEGA-3 FATTY ACIDS/FISH OIL CAPSULE GT SCH ×2 (06:04→17:34)
[2023-02-16] MEDS: PROTEIN SUPPLEMENT (PROSTAT) 30 ML LIQUID GT SCH ×3 (06:04→21:58)
[2023-02-16] MEDS: BACLOFEN 10 MG TABLET GT SCH ×3 (06:04→17:34)
[2023-02-16] MEDS: HYDROGEN PEROXIDE 3% 118 ML BOTTLE TP SCH ×2 (07:21→23:04)
[2023-02-16] MEDS: ACETAMINOPHEN 650 MG/20.3 ML LIQUID UDC GT SCH ×2 (08:53→20:30)
[2023-02-16] MEDS: APIXABAN 2.5 MG TABLET GT SCH ×2 (08:54→21:57)
[2023-02-16] MEDS: SILVER SULFADIAZINE 1% CREAM 50 GM TP SCH ×4 (08:55→21:57)
[2023-02-16] MEDS: REMEDY ESSENTIAL ZINC PASTE 113 GM TP SCH ×2 (08:55→21:57)
[2023-02-16] MEDS: ACIDOPHILUS/BULGARICUS CHEW TAB GT SCH ×2 (08:55→21:57)
[2023-02-16] MEDS: NORMAL SALINE FLUSH 10 ML DISP.SYRIN IV SCH ×2 (08:55→21:00)
[2023-02-16] MEDS: VITAMINS A AND D 5 GM UD PKT TP SCH ×2 (08:55→21:57)
[2023-02-16] MEDS: SERTRALINE HCL 25 MG TABLET GT SCH (12:41)
[2023-02-16] MEDS: CEFEPIME HCL 1 G in IV DEXTROSE 5% 50 ML IV SCH (16:57)
[2023-02-16] MEDS: MULTIVIT, IRON, MIN NO. 8, FA TABLET GT SCH (21:57)
[2023-02-16] MEDS: ASCORBIC ACID 500 MG TABLET GT SCH (21:57)
[2023-02-16] MEDS: SIMVASTATIN 10 MG TABLET GT SCH (21:57)
[2023-02-16] MEDS: ESTROGENS,CONJU VAGINAL CREAM 42.5 GM TUBE VG SCH (21:57)
[2023-02-16] MEDS: GLUCERNA 1.2 1000ML LIQUID GT PRN (21:58)
[2023-02-16] MEDS: TEMAZEPAM 7.5 MG CAPSULE GT PRN (22:00)
[2023-02-17] VITALS (14 sets, daily range): TEMP 97.6–99.2; O2SAT 96–99
[2023-02-17] MEDS: BACLOFEN 10 MG TABLET GT SCH ×5 (00:08→23:08)
[2023-02-17] MEDS: IPRATROPIUM BROMIDE 0.5 MG/2.5 ML NEBU NEB SCH ×6 (03:15→23:14)
[2023-02-17] MEDS: ALBUTEROL SULFATE 2.5 MG/3 ML NEBU NEB SCH ×6 (03:16→23:14)
[2023-02-17] MEDS: OMEGA-3 FATTY ACIDS/FISH OIL CAPSULE GT SCH ×2 (05:13→17:07)
[2023-02-17] MEDS: ARGININE/GLUTAMINE/CALCIUM BMB 1 EACH POWD.PACK GT SCH ×2 (05:13→17:07)
[2023-02-17] MEDS: OMEPRAZOLE 20 MG CAPSULE.DR GT SCH (05:13)
[2023-02-17] MEDS: MIDODRINE HCL 5 MG TABLET GT SCH ×3 (05:14→21:33)
[2023-02-17] MEDS: PROTEIN SUPPLEMENT (PROSTAT) 30 ML LIQUID GT SCH ×3 (05:14→21:34)
[2023-02-17 05:31] LABS: BASOPHILS # (AUTO) 0.1 K/UL (0.0-0.2); BASOPHILS % (AUTO) 0.7 % (0.0-2.0); EOSINOPHILS # (AUTO) 0.5 K/uL (0.0-0.7); EOSINOPHILS % (AUTO) 4.5 % (0.0-7.0); HEMATOCRIT 31.8 % (31.2-41.9); HEMOGLOBIN 9.8 g/dL (10.9-14.3); LYMPHOCYTES # (AUTO) 1.5 K/uL (0.8-4.8); LYMPHOCYTES % (AUTO) 14.4 % (20.5-51.5); MEAN CORPUSCULAR HEMOGLOBIN 23.3 uug (24.7-32.8); MEAN CORPUSCULAR HGB CONC 31 g/dL (32.3-35.6); MEAN CORPUSCULAR VOLUME 75.7 fL (75.5-95.3); MONOCYTES # (AUTO) 0.8 K/uL (0.1-1.30); MONOCYTES % (AUTO) 7.9 % (0.0-11.0); NEUTROPHILS # (AUTO) 7.6 K/uL (1.8-8.9); NEUTROPHILS % (AUTO) 72.5 % (38.5-71.5); PLATELET COUNT (AUTO) 166 K/uL (179-408); RED BLOOD CELL COUNT(AUTO) 4.21 MIL/uL (3.63-4.92); RED CELL DISTRIBUTION WIDTH 21.1 % (12.3-17.7); WHITE BLOOD COUNT (AUTO) 10.5 K/uL (3.8-11.8)
[2023-02-17 05:36] LABS: DIFFERENTIAL COMMENT 1
[2023-02-17] MEDS: HYDROGEN PEROXIDE 3% 118 ML BOTTLE TP SCH ×2 (08:00→19:15)
[2023-02-17] MEDS: ACETAMINOPHEN 650 MG/20.3 ML LIQUID UDC GT SCH ×2 (08:33→20:30)
[2023-02-17] MEDS: ACIDOPHILUS/BULGARICUS CHEW TAB GT SCH ×2 (08:37→21:33)
[2023-02-17] MEDS: APIXABAN 2.5 MG TABLET GT SCH ×2 (08:37→21:51)
[2023-02-17] MEDS: NORMAL SALINE FLUSH 10 ML DISP.SYRIN IV SCH ×2 (08:38→21:00)
[2023-02-17] MEDS: REMEDY ESSENTIAL ZINC PASTE 113 GM TP SCH ×2 (08:38→21:33)
[2023-02-17] MEDS: VITAMINS A AND D 5 GM UD PKT TP SCH ×2 (08:38→21:33)
[2023-02-17] MEDS: SILVER SULFADIAZINE 1% CREAM 50 GM TP SCH ×4 (08:38→21:33)
[2023-02-17] MEDS: SERTRALINE HCL 25 MG TABLET GT SCH (12:43)
[2023-02-17] MEDS: CEFEPIME HCL 1 G in IV DEXTROSE 5% 50 ML IV SCH (17:57)
[2023-02-17] MEDS: SIMVASTATIN 10 MG TABLET GT SCH (21:33)
[2023-02-17] MEDS: ESTROGENS,CONJU VAGINAL CREAM 42.5 GM TUBE VG SCH (21:33)
[2023-02-17] MEDS: ASCORBIC ACID 500 MG TABLET GT SCH (21:33)
[2023-02-17] MEDS: MULTIVIT, IRON, MIN NO. 8, FA TABLET GT SCH (21:33)
[2023-02-17] MEDS: TEMAZEPAM 7.5 MG CAPSULE GT PRN (21:34)
[2023-02-18] VITALS (13 sets, daily range): TEMP 97.8; O2SAT 97–99
[2023-02-18] MEDS: GLUCERNA 1.2 1000ML LIQUID GT PRN (02:48)
[2023-02-18] MEDS: IPRATROPIUM BROMIDE 0.5 MG/2.5 ML NEBU NEB SCH ×5 (03:11→19:23)
[2023-02-18] MEDS: ALBUTEROL SULFATE 2.5 MG/3 ML NEBU NEB SCH ×5 (03:11→19:23)
[2023-02-18] MEDS: MIDODRINE HCL 5 MG TABLET GT SCH ×3 (05:09→21:57)
[2023-02-18] MEDS: OMEPRAZOLE 20 MG CAPSULE.DR GT SCH (05:09)
[2023-02-18] MEDS: BACLOFEN 10 MG TABLET GT SCH ×4 (05:09→23:25)
[2023-02-18] MEDS: OMEGA-3 FATTY ACIDS/FISH OIL CAPSULE GT SCH ×2 (05:09→17:09)
[2023-02-18] MEDS: ARGININE/GLUTAMINE/CALCIUM BMB 1 EACH POWD.PACK GT SCH ×2 (05:09→17:09)
[2023-02-18] MEDS: PROTEIN SUPPLEMENT (PROSTAT) 30 ML LIQUID GT SCH ×3 (05:10→21:57)
[2023-02-18] MEDS: HYDROGEN PEROXIDE 3% 118 ML BOTTLE TP SCH ×2 (07:16→19:23)
[2023-02-18] MEDS: ACETAMINOPHEN 650 MG/20.3 ML LIQUID UDC GT SCH ×2 (08:44→21:22)
[2023-02-18] MEDS: APIXABAN 2.5 MG TABLET GT SCH ×2 (08:47→21:49)
[2023-02-18] MEDS: ACIDOPHILUS/BULGARICUS CHEW TAB GT SCH ×2 (08:48→21:22)
[2023-02-18] MEDS: NORMAL SALINE FLUSH 10 ML DISP.SYRIN IV SCH (08:49)
[2023-02-18] MEDS: REMEDY ESSENTIAL ZINC PASTE 113 GM TP SCH ×2 (08:49→21:22)
[2023-02-18] MEDS: SILVER SULFADIAZINE 1% CREAM 50 GM TP SCH ×4 (08:50→21:22)
[2023-02-18] MEDS: VITAMINS A AND D 5 GM UD PKT TP SCH ×2 (08:50→21:22)
[2023-02-18] MEDS: SERTRALINE HCL 25 MG TABLET GT SCH (12:00)
[2023-02-18] MEDS ORDERED: NITROFURANTOIN MACROCRYSTAL 100 MG CAPSULE GT SCH (14:00)
[2023-02-18] MEDS: TEMAZEPAM 7.5 MG CAPSULE GT PRN (21:20)
[2023-02-18] MEDS: SIMVASTATIN 10 MG TABLET GT SCH (21:22)
[2023-02-18] MEDS: ASCORBIC ACID 500 MG TABLET GT SCH (21:22)
[2023-02-18] MEDS: ESTROGENS,CONJU VAGINAL CREAM 42.5 GM TUBE VG SCH (21:22)
[2023-02-18] MEDS: MULTIVIT, IRON, MIN NO. 8, FA TABLET GT SCH (21:22)
[2023-02-19] VITALS (15 sets, daily range): TEMP 98.1–98.5; O2SAT 97–99
[2023-02-19] MEDS: IPRATROPIUM BROMIDE 0.5 MG/2.5 ML NEBU NEB SCH ×7 (00:24→23:11)
[2023-02-19] MEDS: ALBUTEROL SULFATE 2.5 MG/3 ML NEBU NEB SCH ×7 (00:24→23:11)
[2023-02-19] MEDS: OMEGA-3 FATTY ACIDS/FISH OIL CAPSULE GT SCH ×2 (05:10→17:45)
[2023-02-19] MEDS: MIDODRINE HCL 5 MG TABLET GT SCH ×3 (05:11→21:29)
[2023-02-19] MEDS: PROTEIN SUPPLEMENT (PROSTAT) 30 ML LIQUID GT SCH ×3 (05:11→21:29)
[2023-02-19] MEDS: BACLOFEN 10 MG TABLET GT SCH ×4 (05:11→23:58)
[2023-02-19] MEDS: OMEPRAZOLE 20 MG CAPSULE.DR GT SCH (05:11)
[2023-02-19] MEDS: ARGININE/GLUTAMINE/CALCIUM BMB 1 EACH POWD.PACK GT SCH ×2 (05:11→17:45)
[2023-02-19] MEDS: ACETAMINOPHEN 650 MG/20.3 ML LIQUID UDC GT SCH ×2 (08:30→20:45)
[2023-02-19] MEDS: HYDROGEN PEROXIDE 3% 118 ML BOTTLE TP SCH ×2 (09:09→20:23)
[2023-02-19] MEDS: APIXABAN 2.5 MG TABLET GT SCH ×2 (09:43→20:46)
[2023-02-19] MEDS: ACIDOPHILUS/BULGARICUS CHEW TAB GT SCH ×2 (09:43→20:46)
[2023-02-19] MEDS: NITROFURANTOIN MACROCRYSTAL 100 MG CAPSULE GT SCH (09:44)
[2023-02-19] MEDS: VITAMINS A AND D 5 GM UD PKT TP SCH ×2 (09:46→20:46)
[2023-02-19] MEDS: REMEDY ESSENTIAL ZINC PASTE 113 GM TP SCH ×2 (09:46→20:46)
[2023-02-19] MEDS: SILVER SULFADIAZINE 1% CREAM 50 GM TP SCH ×4 (09:46→20:46)
[2023-02-19] MEDS: SERTRALINE HCL 25 MG TABLET GT SCH (12:58)
[2023-02-19] MEDS: GLUCERNA 1.2 1000ML LIQUID GT PRN (13:37)
[2023-02-19] MEDS: MULTIVIT, IRON, MIN NO. 8, FA TABLET GT SCH (20:46)
[2023-02-19] MEDS: ASCORBIC ACID 500 MG TABLET GT SCH (20:46)
[2023-02-19] MEDS: SIMVASTATIN 10 MG TABLET GT SCH (20:46)
[2023-02-19] MEDS: ESTROGENS,CONJU VAGINAL CREAM 42.5 GM TUBE VG SCH (20:46)
[2023-02-19] MEDS: TEMAZEPAM 7.5 MG CAPSULE GT PRN (23:45)
[2023-02-20] VITALS (12 sets, daily range): TEMP 97.5–98.4; O2SAT 97–99
[2023-02-20] MEDS: IPRATROPIUM BROMIDE 0.5 MG/2.5 ML NEBU NEB SCH ×6 (03:30→23:27)
[2023-02-20] MEDS: ALBUTEROL SULFATE 2.5 MG/3 ML NEBU NEB SCH ×6 (03:30→23:27)
[2023-02-20] MEDS: MIDODRINE HCL 5 MG TABLET GT SCH ×3 (05:37→21:18)
[2023-02-20] MEDS: BACLOFEN 10 MG TABLET GT SCH ×3 (05:37→17:38)
[2023-02-20] MEDS: PROTEIN SUPPLEMENT (PROSTAT) 30 ML LIQUID GT SCH ×3 (05:37→21:18)
[2023-02-20] MEDS: OMEGA-3 FATTY ACIDS/FISH OIL CAPSULE GT SCH ×2 (05:37→17:37)
[2023-02-20] MEDS: ARGININE/GLUTAMINE/CALCIUM BMB 1 EACH POWD.PACK GT SCH ×2 (05:37→17:37)
[2023-02-20] MEDS: OMEPRAZOLE 20 MG CAPSULE.DR GT SCH (05:37)
[2023-02-20] MEDS: ACETAMINOPHEN 650 MG/20.3 ML LIQUID UDC GT SCH ×2 (09:07→21:17)
[2023-02-20] MEDS: ACIDOPHILUS/BULGARICUS CHEW TAB GT SCH ×2 (09:09→21:17)
[2023-02-20] MEDS: NITROFURANTOIN MACROCRYSTAL 100 MG CAPSULE GT SCH (09:11)
[2023-02-20] MEDS: REMEDY ESSENTIAL ZINC PASTE 113 GM TP SCH ×2 (09:11→21:17)
[2023-02-20] MEDS: VITAMINS A AND D 5 GM UD PKT TP SCH ×2 (09:12→21:17)
[2023-02-20] MEDS: HYDROGEN PEROXIDE 3% 118 ML BOTTLE TP SCH ×2 (09:12→19:23)
[2023-02-20] MEDS: SILVER SULFADIAZINE 1% CREAM 50 GM TP SCH ×2 (09:12)
[2023-02-20] MEDS: APIXABAN 2.5 MG TABLET GT SCH ×2 (09:15→21:17)
[2023-02-20] MEDS: SERTRALINE HCL 25 MG TABLET GT SCH (12:46)
[2023-02-20] MEDS: GLUCERNA 1.2 1000ML LIQUID GT PRN (18:51)
[2023-02-20] MEDS: TEMAZEPAM 7.5 MG CAPSULE GT PRN (21:00)
[2023-02-20] MEDS: MULTIVIT, IRON, MIN NO. 8, FA TABLET GT SCH (21:17)
[2023-02-20] MEDS: ESTROGENS,CONJU VAGINAL CREAM 42.5 GM TUBE VG SCH (21:17)
[2023-02-20] MEDS: ASCORBIC ACID 500 MG TABLET GT SCH (21:17)
[2023-02-20] MEDS: SIMVASTATIN 10 MG TABLET GT SCH (21:17)
[2023-02-21] VITALS (15 sets, daily range): TEMP 98.6–98.8; O2SAT 97–99
[2023-02-21] MEDS: ALBUTEROL SULFATE 2.5 MG/3 ML NEBU NEB SCH ×6 (03:12→23:30)
[2023-02-21] MEDS: IPRATROPIUM BROMIDE 0.5 MG/2.5 ML NEBU NEB SCH ×6 (03:12→23:30)
[2023-02-21] MEDS: BACLOFEN 10 MG TABLET GT SCH ×5 (06:00→23:04)
[2023-02-21] MEDS: ARGININE/GLUTAMINE/CALCIUM BMB 1 EACH POWD.PACK GT SCH ×2 (06:00→17:59)
[2023-02-21] MEDS: OMEPRAZOLE 20 MG CAPSULE.DR GT SCH (06:00)
[2023-02-21] MEDS: OMEGA-3 FATTY ACIDS/FISH OIL CAPSULE GT SCH ×2 (06:00→17:59)
[2023-02-21] MEDS: MIDODRINE HCL 5 MG TABLET GT SCH ×3 (06:01→21:42)
[2023-02-21] MEDS: PROTEIN SUPPLEMENT (PROSTAT) 30 ML LIQUID GT SCH ×3 (06:01→21:42)
[2023-02-21] MEDS: HYDROGEN PEROXIDE 3% 118 ML BOTTLE TP SCH ×2 (07:13→20:56)
[2023-02-21] MEDS: ACETAMINOPHEN 650 MG/20.3 ML LIQUID UDC GT SCH ×2 (09:17→20:30)
[2023-02-21] MEDS: VITAMINS A AND D 5 GM UD PKT TP SCH ×2 (09:19→21:42)
[2023-02-21] MEDS: ACIDOPHILUS/BULGARICUS CHEW TAB GT SCH ×2 (09:19→21:35)
[2023-02-21] MEDS: NITROFURANTOIN MACROCRYSTAL 100 MG CAPSULE GT SCH (09:19)
[2023-02-21] MEDS: REMEDY ESSENTIAL ZINC PASTE 113 GM TP SCH ×2 (09:19→21:42)
[2023-02-21] MEDS: APIXABAN 2.5 MG TABLET GT SCH ×2 (09:21→21:35)
[2023-02-21] MEDS: SERTRALINE HCL 25 MG TABLET GT SCH (12:58)
[2023-02-21] MEDS: FOSFOMYCIN TROMETHAMINE 3 GM PACKET GT SCH (21:41)
[2023-02-21] MEDS: MULTIVIT, IRON, MIN NO. 8, FA TABLET GT SCH (21:41)
[2023-02-21] MEDS: ASCORBIC ACID 500 MG TABLET GT SCH (21:42)
[2023-02-21] MEDS: SIMVASTATIN 10 MG TABLET GT SCH (21:42)
[2023-02-21] MEDS: ESTROGENS,CONJU VAGINAL CREAM 42.5 GM TUBE VG SCH (21:42)
[2023-02-21] MEDS: TEMAZEPAM 7.5 MG CAPSULE GT PRN (22:00)
[2023-02-22] VITALS (14 sets, daily range): TEMP 98–98.8; O2SAT 97–99
[2023-02-22] MEDS: ALBUTEROL SULFATE 2.5 MG/3 ML NEBU NEB SCH ×6 (03:30→23:10)
[2023-02-22] MEDS: IPRATROPIUM BROMIDE 0.5 MG/2.5 ML NEBU NEB SCH ×6 (03:30→23:10)
[2023-02-22] MEDS: GLUCERNA 1.2 1000ML LIQUID GT PRN (04:40)
[2023-02-22] MEDS: MIDODRINE HCL 5 MG TABLET GT SCH ×3 (05:44→21:36)
[2023-02-22] MEDS: OMEPRAZOLE 20 MG CAPSULE.DR GT SCH (05:44)
[2023-02-22] MEDS: BACLOFEN 10 MG TABLET GT SCH ×3 (05:44→17:37)
[2023-02-22] MEDS: ARGININE/GLUTAMINE/CALCIUM BMB 1 EACH POWD.PACK GT SCH ×2 (05:44→17:37)
[2023-02-22] MEDS: OMEGA-3 FATTY ACIDS/FISH OIL CAPSULE GT SCH ×2 (05:44→17:37)
[2023-02-22] MEDS: PROTEIN SUPPLEMENT (PROSTAT) 30 ML LIQUID GT SCH ×3 (05:45→21:37)
[2023-02-22] MEDS: ACETAMINOPHEN 650 MG/20.3 ML LIQUID UDC GT SCH ×2 (08:30→20:30)
[2023-02-22] MEDS: HYDROGEN PEROXIDE 3% 118 ML BOTTLE TP SCH ×2 (09:17→19:26)
[2023-02-22] MEDS: ACIDOPHILUS/BULGARICUS CHEW TAB GT SCH ×2 (09:52→21:34)
[2023-02-22] MEDS: NITROFURANTOIN MACROCRYSTAL 100 MG CAPSULE GT SCH (09:53)
[2023-02-22] MEDS: REMEDY ESSENTIAL ZINC PASTE 113 GM TP SCH ×2 (09:54→21:36)
[2023-02-22] MEDS: APIXABAN 2.5 MG TABLET GT SCH ×2 (09:56→21:34)
[2023-02-22] MEDS: VITAMINS A AND D 5 GM UD PKT TP SCH ×2 (09:57→21:36)
[2023-02-22] MEDS: SERTRALINE HCL 25 MG TABLET GT SCH (11:39)
[2023-02-22] MEDS: ASCORBIC ACID 500 MG TABLET GT SCH (21:35)
[2023-02-22] MEDS: MULTIVIT, IRON, MIN NO. 8, FA TABLET GT SCH (21:35)
[2023-02-22] MEDS: SIMVASTATIN 10 MG TABLET GT SCH (21:36)
[2023-02-22] MEDS: ESTROGENS,CONJU VAGINAL CREAM 42.5 GM TUBE VG SCH (21:36)
[2023-02-22] MEDS: TEMAZEPAM 7.5 MG CAPSULE GT PRN (21:37)
[2023-02-23] VITALS (14 sets, daily range): TEMP 98–98.1; O2SAT 97–99
[2023-02-23] MEDS: ALBUTEROL SULFATE 2.5 MG/3 ML NEBU NEB SCH ×6 (03:09→23:28)
[2023-02-23] MEDS: IPRATROPIUM BROMIDE 0.5 MG/2.5 ML NEBU NEB SCH ×6 (03:09→23:28)
[2023-02-23] MEDS: BACLOFEN 10 MG TABLET GT SCH ×4 (05:46→18:31)
[2023-02-23] MEDS: PROTEIN SUPPLEMENT (PROSTAT) 30 ML LIQUID GT SCH ×3 (05:46→21:05)
[2023-02-23] MEDS: MIDODRINE HCL 5 MG TABLET GT SCH ×3 (05:46→21:05)
[2023-02-23] MEDS: OMEPRAZOLE 20 MG CAPSULE.DR GT SCH (05:46)
[2023-02-23] MEDS: ARGININE/GLUTAMINE/CALCIUM BMB 1 EACH POWD.PACK GT SCH ×2 (05:46→18:03)
[2023-02-23] MEDS: OMEGA-3 FATTY ACIDS/FISH OIL CAPSULE GT SCH ×2 (05:46→18:03)
[2023-02-23] MEDS: HYDROGEN PEROXIDE 3% 118 ML BOTTLE TP SCH ×2 (09:13→19:26)
[2023-02-23] MEDS: ACETAMINOPHEN 650 MG/20.3 ML LIQUID UDC GT SCH ×2 (09:20→20:56)
[2023-02-23] MEDS: APIXABAN 2.5 MG TABLET GT SCH ×2 (09:21→20:57)
[2023-02-23] MEDS: REMEDY ESSENTIAL ZINC PASTE 113 GM TP SCH ×2 (09:22→21:04)
[2023-02-23] MEDS: SILVER SULFADIAZINE 1% CREAM 50 GM TP SCH ×4 (09:22→21:05)
[2023-02-23] MEDS: NITROFURANTOIN MACROCRYSTAL 100 MG CAPSULE GT SCH (09:22)
[2023-02-23] MEDS: ACIDOPHILUS/BULGARICUS CHEW TAB GT SCH ×2 (09:22→20:57)
[2023-02-23] MEDS: VITAMINS A AND D 5 GM UD PKT TP SCH ×2 (09:23→21:05)
[2023-02-23] MEDS: SERTRALINE HCL 25 MG TABLET GT SCH (12:00)
[2023-02-23] MEDS: ASCORBIC ACID 500 MG TABLET GT SCH (20:59)
[2023-02-23] MEDS: SIMVASTATIN 10 MG TABLET GT SCH (20:59)
[2023-02-23] MEDS: MULTIVIT, IRON, MIN NO. 8, FA TABLET GT SCH (20:59)
[2023-02-23] MEDS: ESTROGENS,CONJU VAGINAL CREAM 42.5 GM TUBE VG SCH (21:05)
[2023-02-23] MEDS: TEMAZEPAM 7.5 MG CAPSULE GT PRN (21:06)
[2023-02-24] VITALS (14 sets, daily range): TEMP 97.3–98.5; O2SAT 98–99
[2023-02-24] MEDS: IPRATROPIUM BROMIDE 0.5 MG/2.5 ML NEBU NEB SCH ×6 (03:08→23:00)
[2023-02-24] MEDS: ALBUTEROL SULFATE 2.5 MG/3 ML NEBU NEB SCH ×6 (03:08→23:00)
[2023-02-24] MEDS: HYDROCODONE/APAP 10-325 MG TABLET GT PRN (04:10)
[2023-02-24] MEDS: ARGININE/GLUTAMINE/CALCIUM BMB 1 EACH POWD.PACK GT SCH ×2 (05:51→17:46)
[2023-02-24] MEDS: OMEGA-3 FATTY ACIDS/FISH OIL CAPSULE GT SCH ×2 (05:51→17:46)
[2023-02-24] MEDS: PROTEIN SUPPLEMENT (PROSTAT) 30 ML LIQUID GT SCH ×3 (05:51→22:40)
[2023-02-24] MEDS: BACLOFEN 10 MG TABLET GT SCH ×4 (05:51→17:46)
[2023-02-24] MEDS: MIDODRINE HCL 5 MG TABLET GT SCH ×3 (05:51→22:41)
[2023-02-24] MEDS: OMEPRAZOLE 20 MG CAPSULE.DR GT SCH (05:51)
[2023-02-24] MEDS: HYDROGEN PEROXIDE 3% 118 ML BOTTLE TP SCH ×2 (07:09→20:38)
[2023-02-24] MEDS: ACETAMINOPHEN 650 MG/20.3 ML LIQUID UDC GT SCH ×2 (08:48→20:38)
[2023-02-24] MEDS: REMEDY ESSENTIAL ZINC PASTE 113 GM TP SCH ×2 (08:49→20:39)
[2023-02-24] MEDS: SILVER SULFADIAZINE 1% CREAM 50 GM TP SCH ×4 (08:49→21:00)
[2023-02-24] MEDS: APIXABAN 2.5 MG TABLET GT SCH ×2 (08:49→21:00)
[2023-02-24] MEDS: ACIDOPHILUS/BULGARICUS CHEW TAB GT SCH ×2 (08:49→20:38)
[2023-02-24] MEDS: NITROFURANTOIN MACROCRYSTAL 100 MG CAPSULE GT SCH (08:49)
[2023-02-24] MEDS: VITAMINS A AND D 5 GM UD PKT TP SCH ×2 (08:49→21:00)
[2023-02-24] MEDS: SERTRALINE HCL 25 MG TABLET GT SCH (12:00)
[2023-02-24] MEDS: MULTIVIT, IRON, MIN NO. 8, FA TABLET GT SCH (20:38)
[2023-02-24] MEDS: SIMVASTATIN 10 MG TABLET GT SCH (20:38)
[2023-02-24] MEDS: ASCORBIC ACID 500 MG TABLET GT SCH (20:38)
[2023-02-24] MEDS: ESTROGENS,CONJU VAGINAL CREAM 42.5 GM TUBE VG SCH (21:00)
[2023-02-25] VITALS (14 sets, daily range): TEMP 98.4–98.6; O2SAT 97–99
[2023-02-25] MEDS: BACLOFEN 10 MG TABLET GT SCH ×4 (00:11→18:32)
[2023-02-25] MEDS: ALBUTEROL SULFATE 2.5 MG/3 ML NEBU NEB SCH ×6 (03:06→23:20)
[2023-02-25] MEDS: IPRATROPIUM BROMIDE 0.5 MG/2.5 ML NEBU NEB SCH ×6 (03:06→23:20)
[2023-02-25] MEDS: OMEGA-3 FATTY ACIDS/FISH OIL CAPSULE GT SCH ×2 (05:17→18:32)
[2023-02-25] MEDS: OMEPRAZOLE 20 MG CAPSULE.DR GT SCH (05:17)
[2023-02-25] MEDS: ARGININE/GLUTAMINE/CALCIUM BMB 1 EACH POWD.PACK GT SCH ×2 (05:17→18:32)
[2023-02-25] MEDS: MIDODRINE HCL 5 MG TABLET GT SCH ×3 (05:18→22:33)
[2023-02-25] MEDS: PROTEIN SUPPLEMENT (PROSTAT) 30 ML LIQUID GT SCH ×3 (05:18→22:33)
[2023-02-25] MEDS: HYDROGEN PEROXIDE 3% 118 ML BOTTLE TP SCH ×2 (07:55→19:24)
[2023-02-25] MEDS: ACETAMINOPHEN 650 MG/20.3 ML LIQUID UDC GT SCH ×2 (09:25→20:40)
[2023-02-25] MEDS: ACIDOPHILUS/BULGARICUS CHEW TAB GT SCH ×2 (09:26→20:50)
[2023-02-25] MEDS: APIXABAN 2.5 MG TABLET GT SCH ×2 (09:26→21:00)
[2023-02-25] MEDS: REMEDY ESSENTIAL ZINC PASTE 113 GM TP SCH ×2 (09:27→20:41)
[2023-02-25] MEDS: VITAMINS A AND D 5 GM UD PKT TP SCH ×2 (09:27→20:41)
[2023-02-25] MEDS: SILVER SULFADIAZINE 1% CREAM 50 GM TP SCH ×4 (09:27→20:41)
[2023-02-25] MEDS: NITROFURANTOIN MACROCRYSTAL 100 MG CAPSULE GT SCH (09:27)
[2023-02-25] MEDS: SERTRALINE HCL 25 MG TABLET GT SCH (12:55)
[2023-02-25] MEDS: GLUCERNA 1.2 1000ML LIQUID GT PRN (18:34)
[2023-02-25] MEDS: ASCORBIC ACID 500 MG TABLET GT SCH (20:41)
[2023-02-25] MEDS: MULTIVIT, IRON, MIN NO. 8, FA TABLET GT SCH (20:41)
[2023-02-25] MEDS: ESTROGENS,CONJU VAGINAL CREAM 42.5 GM TUBE VG SCH (20:41)
[2023-02-25] MEDS: SIMVASTATIN 10 MG TABLET GT SCH (20:42)
[2023-02-25] MEDS: TEMAZEPAM 7.5 MG CAPSULE GT PRN (20:57)
[2023-02-26] VITALS (14 sets, daily range): TEMP 98–98.6; O2SAT 98–99
[2023-02-26] MEDS: BACLOFEN 10 MG TABLET GT SCH ×4 (00:35→17:41)
[2023-02-26] MEDS: IPRATROPIUM BROMIDE 0.5 MG/2.5 ML NEBU NEB SCH ×6 (04:15→23:05)
[2023-02-26] MEDS: ALBUTEROL SULFATE 2.5 MG/3 ML NEBU NEB SCH ×6 (04:15→23:05)
[2023-02-26] MEDS: MIDODRINE HCL 5 MG TABLET GT SCH ×3 (06:00→21:07)
[2023-02-26] MEDS: OMEGA-3 FATTY ACIDS/FISH OIL CAPSULE GT SCH ×2 (06:02→17:39)
[2023-02-26] MEDS: OMEPRAZOLE 20 MG CAPSULE.DR GT SCH (06:02)
[2023-02-26] MEDS: ARGININE/GLUTAMINE/CALCIUM BMB 1 EACH POWD.PACK GT SCH ×2 (06:02→17:40)
[2023-02-26] MEDS: PROTEIN SUPPLEMENT (PROSTAT) 30 ML LIQUID GT SCH ×3 (06:03→21:07)
[2023-02-26] MEDS: HYDROGEN PEROXIDE 3% 118 ML BOTTLE TP SCH ×2 (07:47→20:41)
[2023-02-26] MEDS: ACETAMINOPHEN 650 MG/20.3 ML LIQUID UDC GT SCH ×2 (09:12→20:40)
[2023-02-26] MEDS: ACIDOPHILUS/BULGARICUS CHEW TAB GT SCH ×2 (09:13→20:43)
[2023-02-26] MEDS: SILVER SULFADIAZINE 1% CREAM 50 GM TP SCH ×4 (09:14→20:45)
[2023-02-26] MEDS: REMEDY ESSENTIAL ZINC PASTE 113 GM TP SCH ×2 (09:14→20:45)
[2023-02-26] MEDS: NITROFURANTOIN MACROCRYSTAL 100 MG CAPSULE GT SCH (09:14)
[2023-02-26] MEDS: VITAMINS A AND D 5 GM UD PKT TP SCH ×2 (09:15→20:46)
[2023-02-26] MEDS: APIXABAN 2.5 MG TABLET GT SCH ×2 (09:16→20:43)
[2023-02-26] MEDS: SERTRALINE HCL 25 MG TABLET GT SCH (12:41)
[2023-02-26] MEDS: SIMVASTATIN 10 MG TABLET GT SCH (20:44)
[2023-02-26] MEDS: MULTIVIT, IRON, MIN NO. 8, FA TABLET GT SCH (20:44)
[2023-02-26] MEDS: ASCORBIC ACID 500 MG TABLET GT SCH (20:44)
[2023-02-26] MEDS: ESTROGENS,CONJU VAGINAL CREAM 42.5 GM TUBE VG SCH (20:47)
[2023-02-26] MEDS: GLUCERNA 1.2 1000ML LIQUID GT PRN (22:34)
[2023-02-26] MEDS: TEMAZEPAM 7.5 MG CAPSULE GT PRN (22:45)
[2023-02-27] VITALS (14 sets, daily range): TEMP 97.6–98.9; O2SAT 96–99
[2023-02-27] MEDS: BACLOFEN 10 MG TABLET GT SCH ×4 (00:22→17:45)
[2023-02-27] MEDS: IPRATROPIUM BROMIDE 0.5 MG/2.5 ML NEBU NEB SCH ×6 (03:45→23:14)
[2023-02-27] MEDS: ALBUTEROL SULFATE 2.5 MG/3 ML NEBU NEB SCH ×6 (03:46→23:14)
[2023-02-27] MEDS: OMEGA-3 FATTY ACIDS/FISH OIL CAPSULE GT SCH ×2 (05:13→17:46)
[2023-02-27] MEDS: PROTEIN SUPPLEMENT (PROSTAT) 30 ML LIQUID GT SCH ×3 (05:13→22:08)
[2023-02-27] MEDS: OMEPRAZOLE 20 MG CAPSULE.DR GT SCH (05:13)
[2023-02-27] MEDS: ARGININE/GLUTAMINE/CALCIUM BMB 1 EACH POWD.PACK GT SCH ×2 (05:13→17:45)
[2023-02-27] MEDS: MIDODRINE HCL 5 MG TABLET GT SCH ×3 (05:13→22:09)
[2023-02-27 07:52] LABS: CALCIUM 10.2 mg/dL (8.5-10.1); CREATININE 0.9 mg/dL (0.6-1.3); POTASSIUM 3.2 mmol/L (3.5-5.1)
[2023-02-27] MEDS: HYDROGEN PEROXIDE 3% 118 ML BOTTLE TP SCH ×2 (09:25→20:36)
[2023-02-27] MEDS: ACETAMINOPHEN 650 MG/20.3 ML LIQUID UDC GT SCH ×2 (09:30→20:35)
[2023-02-27] MEDS: NITROFURANTOIN MACROCRYSTAL 100 MG CAPSULE GT SCH (09:38)
[2023-02-27] MEDS: APIXABAN 2.5 MG TABLET GT SCH ×2 (09:38→21:32)
[2023-02-27] MEDS: ACIDOPHILUS/BULGARICUS CHEW TAB GT SCH ×2 (09:38→20:36)
[2023-02-27] MEDS: SILVER SULFADIAZINE 1% CREAM 50 GM TP SCH ×4 (09:40→20:36)
[2023-02-27] MEDS: REMEDY ESSENTIAL ZINC PASTE 113 GM TP SCH ×2 (09:40→20:36)
[2023-02-27] MEDS: VITAMINS A AND D 5 GM UD PKT TP SCH ×2 (09:40→20:36)
[2023-02-27] MEDS: SERTRALINE HCL 25 MG TABLET GT SCH (13:00)
[2023-02-27] MEDS ORDERED: POTASSIUM CHLORIDE 20 MEQ TAB.PRT.SR XX ONE (20:00)
[2023-02-27] MEDS: MULTIVIT, IRON, MIN NO. 8, FA TABLET GT SCH (20:36)
[2023-02-27] MEDS: ASCORBIC ACID 500 MG TABLET GT SCH (20:36)
[2023-02-27] MEDS: ESTROGENS,CONJU VAGINAL CREAM 42.5 GM TUBE VG SCH (20:36)
[2023-02-27] MEDS: SIMVASTATIN 10 MG TABLET GT SCH (20:36)
[2023-02-28] VITALS (14 sets, daily range): TEMP 98–98.5; O2SAT 96–99
[2023-02-28] MEDS: BACLOFEN 10 MG TABLET GT SCH ×4 (00:37→17:51)
[2023-02-28] MEDS: IPRATROPIUM BROMIDE 0.5 MG/2.5 ML NEBU NEB SCH ×6 (03:11→23:30)
[2023-02-28] MEDS: ALBUTEROL SULFATE 2.5 MG/3 ML NEBU NEB SCH ×6 (03:11→23:30)
[2023-02-28] MEDS: PROTEIN SUPPLEMENT (PROSTAT) 30 ML LIQUID GT SCH ×3 (05:26→21:01)
[2023-02-28] MEDS: ARGININE/GLUTAMINE/CALCIUM BMB 1 EACH POWD.PACK GT SCH ×2 (05:26→17:51)
[2023-02-28] MEDS: OMEGA-3 FATTY ACIDS/FISH OIL CAPSULE GT SCH ×2 (05:26→17:49)
[2023-02-28] MEDS: OMEPRAZOLE 20 MG CAPSULE.DR GT SCH (05:26)
[2023-02-28] MEDS: MIDODRINE HCL 5 MG TABLET GT SCH ×3 (05:27→21:47)
[2023-02-28] MEDS: HYDROGEN PEROXIDE 3% 118 ML BOTTLE TP SCH ×2 (07:31→19:12)
[2023-02-28] MEDS: ACETAMINOPHEN 650 MG/20.3 ML LIQUID UDC GT SCH ×2 (08:30→20:30)
[2023-02-28] MEDS: SILVER SULFADIAZINE 1% CREAM 50 GM TP SCH ×4 (09:00→21:00)
[2023-02-28] MEDS: APIXABAN 2.5 MG TABLET GT SCH ×2 (09:36→20:57)
[2023-02-28] MEDS: ACIDOPHILUS/BULGARICUS CHEW TAB GT SCH ×2 (09:38→20:57)
[2023-02-28] MEDS: NITROFURANTOIN MACROCRYSTAL 100 MG CAPSULE GT SCH (09:39)
[2023-02-28] MEDS: VITAMINS A AND D 5 GM UD PKT TP SCH ×2 (09:39→21:01)
[2023-02-28] MEDS: REMEDY ESSENTIAL ZINC PASTE 113 GM TP SCH ×2 (09:39→21:00)
[2023-02-28] MEDS: SERTRALINE HCL 25 MG TABLET GT SCH (12:00)
[2023-02-28] MEDS: FOSFOMYCIN TROMETHAMINE 3 GM PACKET GT SCH (20:57)
[2023-02-28] MEDS: MULTIVIT, IRON, MIN NO. 8, FA TABLET GT SCH (20:59)
[2023-02-28] MEDS: ASCORBIC ACID 500 MG TABLET GT SCH (21:00)
[2023-02-28] MEDS: SIMVASTATIN 10 MG TABLET GT SCH (21:00)
[2023-02-28] MEDS: ESTROGENS,CONJU VAGINAL CREAM 42.5 GM TUBE VG SCH (21:01)
[2023-02-28] MEDS: TEMAZEPAM 7.5 MG CAPSULE GT PRN (21:48)
[2023-03-01] VITALS (14 sets, daily range): TEMP 96.8–98.6; O2SAT 96–99
[2023-03-01] MEDS: BACLOFEN 10 MG TABLET GT SCH ×4 (00:09→17:35)
[2023-03-01] MEDS: IPRATROPIUM BROMIDE 0.5 MG/2.5 ML NEBU NEB SCH ×5 (03:45→19:15)
[2023-03-01] MEDS: ALBUTEROL SULFATE 2.5 MG/3 ML NEBU NEB SCH ×5 (03:45→19:16)
[2023-03-01] MEDS: OMEGA-3 FATTY ACIDS/FISH OIL CAPSULE GT SCH ×2 (05:23→17:33)
[2023-03-01] MEDS: OMEPRAZOLE 20 MG CAPSULE.DR GT SCH (05:23)
[2023-03-01] MEDS: ARGININE/GLUTAMINE/CALCIUM BMB 1 EACH POWD.PACK GT SCH ×2 (05:23→17:33)
[2023-03-01] MEDS: MIDODRINE HCL 5 MG TABLET GT SCH ×3 (05:24→21:39)
[2023-03-01] MEDS: PROTEIN SUPPLEMENT (PROSTAT) 30 ML LIQUID GT SCH ×3 (05:24→21:39)
[2023-03-01] MEDS: ACETAMINOPHEN 650 MG/20.3 ML LIQUID UDC GT SCH ×2 (08:41→20:30)
[2023-03-01] MEDS: ACIDOPHILUS/BULGARICUS CHEW TAB GT SCH ×2 (08:42→21:37)
[2023-03-01] MEDS: NITROFURANTOIN MACROCRYSTAL 100 MG CAPSULE GT SCH (08:43)
[2023-03-01] MEDS: REMEDY ESSENTIAL ZINC PASTE 113 GM TP SCH ×2 (08:43→21:37)
[2023-03-01] MEDS: APIXABAN 2.5 MG TABLET GT SCH ×2 (08:44→21:37)
[2023-03-01] MEDS: HYDROGEN PEROXIDE 3% 118 ML BOTTLE TP SCH ×2 (08:50→21:44)
[2023-03-01] MEDS: VITAMINS A AND D 5 GM UD PKT TP SCH ×2 (09:00→21:38)
[2023-03-01] MEDS: SILVER SULFADIAZINE 1% CREAM 50 GM TP SCH ×4 (09:00→21:38)
[2023-03-01] MEDS: GLUCERNA 1.2 1000ML LIQUID GT PRN (09:44)
[2023-03-01] MEDS: SERTRALINE HCL 25 MG TABLET GT SCH (12:00)
[2023-03-01] MEDS: ASCORBIC ACID 500 MG TABLET GT SCH (21:37)
[2023-03-01] MEDS: SIMVASTATIN 10 MG TABLET GT SCH (21:37)
[2023-03-01] MEDS: MULTIVIT, IRON, MIN NO. 8, FA TABLET GT SCH (21:37)
[2023-03-01] MEDS: ESTROGENS,CONJU VAGINAL CREAM 42.5 GM TUBE VG SCH (21:38)
[2023-03-01] MEDS: TEMAZEPAM 7.5 MG CAPSULE GT PRN (22:00)
[2023-03-02] VITALS (14 sets, daily range): TEMP 97.3–98.4; O2SAT 96–99
[2023-03-02] MEDS: BACLOFEN 10 MG TABLET GT SCH ×4 (00:36→17:21)
[2023-03-02] MEDS: IPRATROPIUM BROMIDE 0.5 MG/2.5 ML NEBU NEB SCH ×7 (00:40→23:25)
[2023-03-02] MEDS: ALBUTEROL SULFATE 2.5 MG/3 ML NEBU NEB SCH ×7 (00:41→23:25)
[2023-03-02] MEDS: OMEPRAZOLE 20 MG CAPSULE.DR GT SCH (05:30)
[2023-03-02] MEDS: ARGININE/GLUTAMINE/CALCIUM BMB 1 EACH POWD.PACK GT SCH ×2 (05:32→17:21)
[2023-03-02] MEDS: MIDODRINE HCL 5 MG TABLET GT SCH ×3 (05:32→22:00)
[2023-03-02] MEDS: OMEGA-3 FATTY ACIDS/FISH OIL CAPSULE GT SCH ×2 (05:32→17:21)
[2023-03-02] MEDS: PROTEIN SUPPLEMENT (PROSTAT) 30 ML LIQUID GT SCH ×3 (05:33→22:01)
[2023-03-02] MEDS: HYDROGEN PEROXIDE 3% 118 ML BOTTLE TP SCH ×2 (07:21→21:47)
[2023-03-02] MEDS: ACETAMINOPHEN 650 MG/20.3 ML LIQUID UDC GT SCH ×2 (09:12→20:30)
[2023-03-02] MEDS: APIXABAN 2.5 MG TABLET GT SCH ×2 (09:13→21:59)
[2023-03-02] MEDS: NITROFURANTOIN MACROCRYSTAL 100 MG CAPSULE GT SCH (09:13)
[2023-03-02] MEDS: REMEDY ESSENTIAL ZINC PASTE 113 GM TP SCH ×2 (09:13→21:59)
[2023-03-02] MEDS: ACIDOPHILUS/BULGARICUS CHEW TAB GT SCH ×2 (09:13→21:59)
[2023-03-02] MEDS: VITAMINS A AND D 5 GM UD PKT TP SCH ×2 (09:16→21:59)
[2023-03-02] MEDS: SILVER SULFADIAZINE 1% CREAM 50 GM TP SCH ×4 (09:16→21:59)
[2023-03-02] MEDS: SERTRALINE HCL 25 MG TABLET GT SCH (11:56)
[2023-03-02] MEDS ORDERED: INFLUENZA VACCINE 2023-2024 0.5 ML DISP.SYRIN IM ONE (13:00)
[2023-03-02] MEDS: ESTROGENS,CONJU VAGINAL CREAM 42.5 GM TUBE VG SCH (21:59)
[2023-03-02] MEDS: MULTIVIT, IRON, MIN NO. 8, FA TABLET GT SCH (21:59)
[2023-03-02] MEDS: SIMVASTATIN 10 MG TABLET GT SCH (21:59)
[2023-03-02] MEDS: ASCORBIC ACID 500 MG TABLET GT SCH (21:59)
[2023-03-02] MEDS: TEMAZEPAM 7.5 MG CAPSULE GT PRN (23:00)
[2023-03-03] VITALS (13 sets, daily range): TEMP 97.2–98.2; O2SAT 96–99
[2023-03-03] MEDS: BACLOFEN 10 MG TABLET GT SCH ×4 (00:03→17:25)
[2023-03-03] MEDS: IPRATROPIUM BROMIDE 0.5 MG/2.5 ML NEBU NEB SCH ×6 (03:04→23:01)
[2023-03-03] MEDS: ALBUTEROL SULFATE 2.5 MG/3 ML NEBU NEB SCH ×6 (03:04→23:01)
[2023-03-03] MEDS: OMEGA-3 FATTY ACIDS/FISH OIL CAPSULE GT SCH ×2 (06:06→17:25)
[2023-03-03] MEDS: OMEPRAZOLE 20 MG CAPSULE.DR GT SCH (06:06)
[2023-03-03] MEDS: ARGININE/GLUTAMINE/CALCIUM BMB 1 EACH POWD.PACK GT SCH ×2 (06:06→17:25)
[2023-03-03] MEDS: MIDODRINE HCL 5 MG TABLET GT SCH ×3 (06:08→22:00)
[2023-03-03] MEDS: PROTEIN SUPPLEMENT (PROSTAT) 30 ML LIQUID GT SCH ×3 (06:08→22:08)
[2023-03-03] MEDS: HYDROGEN PEROXIDE 3% 118 ML BOTTLE TP SCH ×2 (07:14→20:53)
[2023-03-03] MEDS: ACETAMINOPHEN 650 MG/20.3 ML LIQUID UDC GT SCH ×2 (08:48→20:36)
[2023-03-03] MEDS: ACIDOPHILUS/BULGARICUS CHEW TAB GT SCH ×2 (08:49→20:37)
[2023-03-03] MEDS: APIXABAN 2.5 MG TABLET GT SCH ×2 (08:49→20:44)
[2023-03-03] MEDS: NITROFURANTOIN MACROCRYSTAL 100 MG CAPSULE GT SCH (08:50)
[2023-03-03] MEDS: SILVER SULFADIAZINE 1% CREAM 50 GM TP SCH ×4 (08:50→20:39)
[2023-03-03] MEDS: REMEDY ESSENTIAL ZINC PASTE 113 GM TP SCH ×2 (08:50→20:39)
[2023-03-03] MEDS: VITAMINS A AND D 5 GM UD PKT TP SCH ×2 (08:51→20:39)
[2023-03-03] MEDS: SERTRALINE HCL 25 MG TABLET GT SCH (12:22)
[2023-03-03] MEDS: GLUCERNA 1.2 1000ML LIQUID GT PRN (12:55)
[2023-03-03] MEDS: SIMVASTATIN 10 MG TABLET GT SCH (20:38)
[2023-03-03] MEDS: MULTIVIT, IRON, MIN NO. 8, FA TABLET GT SCH (20:38)
[2023-03-03] MEDS: ASCORBIC ACID 500 MG TABLET GT SCH (20:38)
[2023-03-03] MEDS: ESTROGENS,CONJU VAGINAL CREAM 42.5 GM TUBE VG SCH (20:39)
[2023-03-04] VITALS (13 sets, daily range): TEMP 99; O2SAT 98–99
[2023-03-04] MEDS: ALBUTEROL SULFATE 2.5 MG/3 ML NEBU NEB SCH ×6 (04:09→23:34)
[2023-03-04] MEDS: IPRATROPIUM BROMIDE 0.5 MG/2.5 ML NEBU NEB SCH ×6 (04:09→23:34)
[2023-03-04] MEDS: ARGININE/GLUTAMINE/CALCIUM BMB 1 EACH POWD.PACK GT SCH ×2 (05:34→17:29)
[2023-03-04] MEDS: OMEGA-3 FATTY ACIDS/FISH OIL CAPSULE GT SCH ×2 (05:34→17:30)
[2023-03-04] MEDS: BACLOFEN 10 MG TABLET GT SCH ×4 (05:34→17:29)
[2023-03-04] MEDS: OMEPRAZOLE 20 MG CAPSULE.DR GT SCH (05:34)
[2023-03-04] MEDS: PROTEIN SUPPLEMENT (PROSTAT) 30 ML LIQUID GT SCH ×3 (05:35→22:00)
[2023-03-04] MEDS: MIDODRINE HCL 5 MG TABLET GT SCH ×3 (05:35→22:00)
[2023-03-04] MEDS: ACETAMINOPHEN 650 MG/20.3 ML LIQUID UDC GT SCH ×2 (08:30→20:56)
[2023-03-04] MEDS: ACIDOPHILUS/BULGARICUS CHEW TAB GT SCH ×2 (09:34→21:12)
[2023-03-04] MEDS: HYDROGEN PEROXIDE 3% 118 ML BOTTLE TP SCH ×3 (09:35→19:39)
[2023-03-04] MEDS: REMEDY ESSENTIAL ZINC PASTE 113 GM TP SCH ×2 (09:35→21:12)
[2023-03-04] MEDS: NITROFURANTOIN MACROCRYSTAL 100 MG CAPSULE GT SCH (09:35)
[2023-03-04] MEDS: SILVER SULFADIAZINE 1% CREAM 50 GM TP SCH ×4 (09:36→21:13)
[2023-03-04] MEDS: VITAMINS A AND D 5 GM UD PKT TP SCH ×2 (09:38→21:13)
[2023-03-04] MEDS: APIXABAN 2.5 MG TABLET GT SCH ×2 (09:39→20:57)
[2023-03-04] MEDS: SERTRALINE HCL 25 MG TABLET GT SCH (12:00)
[2023-03-04] MEDS: ASCORBIC ACID 500 MG TABLET GT SCH (21:12)
[2023-03-04] MEDS: MULTIVIT, IRON, MIN NO. 8, FA TABLET GT SCH (21:12)
[2023-03-04] MEDS: SIMVASTATIN 10 MG TABLET GT SCH (21:12)
[2023-03-04] MEDS: ESTROGENS,CONJU VAGINAL CREAM 42.5 GM TUBE VG SCH (21:13)
[2023-03-05] VITALS (14 sets, daily range): TEMP 97.6–98.6; O2SAT 98–99
[2023-03-05] MEDS: BACLOFEN 10 MG TABLET GT SCH ×4 (00:14→17:28)
[2023-03-05] MEDS: ALBUTEROL SULFATE 2.5 MG/3 ML NEBU NEB SCH ×6 (03:15→23:11)
[2023-03-05] MEDS: IPRATROPIUM BROMIDE 0.5 MG/2.5 ML NEBU NEB SCH ×6 (03:15→23:11)
[2023-03-05] MEDS: MIDODRINE HCL 5 MG TABLET GT SCH ×3 (04:52→22:08)
[2023-03-05] MEDS: OMEPRAZOLE 20 MG CAPSULE.DR GT SCH (06:59)
[2023-03-05] MEDS: PROTEIN SUPPLEMENT (PROSTAT) 30 ML LIQUID GT SCH ×3 (06:59→22:08)
[2023-03-05] MEDS: OMEGA-3 FATTY ACIDS/FISH OIL CAPSULE GT SCH ×2 (06:59→17:28)
[2023-03-05] MEDS: ARGININE/GLUTAMINE/CALCIUM BMB 1 EACH POWD.PACK GT SCH ×2 (06:59→17:28)
[2023-03-05] MEDS: HYDROGEN PEROXIDE 3% 118 ML BOTTLE TP SCH ×2 (07:11→19:17)
[2023-03-05] MEDS: ACETAMINOPHEN 650 MG/20.3 ML LIQUID UDC GT SCH ×2 (09:12→20:30)
[2023-03-05] MEDS: ACIDOPHILUS/BULGARICUS CHEW TAB GT SCH ×2 (09:13→21:57)
[2023-03-05] MEDS: APIXABAN 2.5 MG TABLET GT SCH ×2 (09:13→21:57)
[2023-03-05] MEDS: NITROFURANTOIN MACROCRYSTAL 100 MG CAPSULE GT SCH (09:13)
[2023-03-05] MEDS: REMEDY ESSENTIAL ZINC PASTE 113 GM TP SCH ×2 (09:16→21:57)
[2023-03-05] MEDS: SILVER SULFADIAZINE 1% CREAM 50 GM TP SCH ×4 (09:16→21:57)
[2023-03-05] MEDS: VITAMINS A AND D 5 GM UD PKT TP SCH ×2 (09:16→21:57)
[2023-03-05] MEDS: SERTRALINE HCL 25 MG TABLET GT SCH (12:34)
[2023-03-05] MEDS: MULTIVIT, IRON, MIN NO. 8, FA TABLET GT SCH (21:57)
[2023-03-05] MEDS: ASCORBIC ACID 500 MG TABLET GT SCH (21:57)
[2023-03-05] MEDS: SIMVASTATIN 10 MG TABLET GT SCH (21:57)
[2023-03-05] MEDS: ESTROGENS,CONJU VAGINAL CREAM 42.5 GM TUBE VG SCH (21:58)
[2023-03-06] VITALS (14 sets, daily range): TEMP 98.8–99.2; O2SAT 96–99
[2023-03-06] MEDS: GLUCERNA 1.2 1000ML LIQUID GT PRN (02:09)
[2023-03-06] MEDS: IPRATROPIUM BROMIDE 0.5 MG/2.5 ML NEBU NEB SCH ×6 (04:19→23:30)
[2023-03-06] MEDS: ALBUTEROL SULFATE 2.5 MG/3 ML NEBU NEB SCH ×6 (04:19→23:30)
[2023-03-06] MEDS: OMEGA-3 FATTY ACIDS/FISH OIL CAPSULE GT SCH ×2 (05:04→17:58)
[2023-03-06] MEDS: OMEPRAZOLE 20 MG CAPSULE.DR GT SCH (05:04)
[2023-03-06] MEDS: ARGININE/GLUTAMINE/CALCIUM BMB 1 EACH POWD.PACK GT SCH ×2 (05:04→17:58)
[2023-03-06] MEDS: BACLOFEN 10 MG TABLET GT SCH ×4 (05:04→17:59)
[2023-03-06] MEDS: MIDODRINE HCL 5 MG TABLET GT SCH ×3 (05:05→22:38)
[2023-03-06] MEDS: PROTEIN SUPPLEMENT (PROSTAT) 30 ML LIQUID GT SCH ×3 (05:05→22:38)
[2023-03-06] MEDS: ACETAMINOPHEN 650 MG/20.3 ML LIQUID UDC GT SCH ×2 (08:30→20:38)
[2023-03-06] MEDS: HYDROGEN PEROXIDE 3% 118 ML BOTTLE TP SCH (08:53)
[2023-03-06] MEDS: ACIDOPHILUS/BULGARICUS CHEW TAB GT SCH ×2 (09:00→20:39)
[2023-03-06] MEDS: APIXABAN 2.5 MG TABLET GT SCH ×2 (09:00→20:39)
[2023-03-06] MEDS: SILVER SULFADIAZINE 1% CREAM 50 GM TP SCH ×4 (09:00→20:39)
[2023-03-06] MEDS: VITAMINS A AND D 5 GM UD PKT TP SCH ×2 (09:00→20:39)
[2023-03-06] MEDS: NITROFURANTOIN MACROCRYSTAL 100 MG CAPSULE GT SCH (09:00)
[2023-03-06] MEDS: REMEDY ESSENTIAL ZINC PASTE 113 GM TP SCH ×2 (09:00→20:39)
[2023-03-06] MEDS: SERTRALINE HCL 25 MG TABLET GT SCH (12:00)
[2023-03-06] MEDS: MULTIVIT, IRON, MIN NO. 8, FA TABLET GT SCH (20:39)
[2023-03-06] MEDS: ASCORBIC ACID 500 MG TABLET GT SCH (20:39)
[2023-03-06] MEDS: SIMVASTATIN 10 MG TABLET GT SCH (20:39)
[2023-03-06] MEDS: ESTROGENS,CONJU VAGINAL CREAM 42.5 GM TUBE VG SCH (21:34)
[2023-03-07] VITALS (16 sets, daily range): TEMP 98.5–99.2; O2SAT 96–99
[2023-03-07] MEDS: BACLOFEN 10 MG TABLET GT SCH ×4 (00:39→18:10)
[2023-03-07] MEDS: IPRATROPIUM BROMIDE 0.5 MG/2.5 ML NEBU NEB SCH ×5 (03:30→19:24)
[2023-03-07] MEDS: ALBUTEROL SULFATE 2.5 MG/3 ML NEBU NEB SCH ×5 (03:30→19:24)
[2023-03-07] MEDS: HYDROCODONE/APAP 10-325 MG TABLET GT PRN (04:22)
[2023-03-07] MEDS: OMEGA-3 FATTY ACIDS/FISH OIL CAPSULE GT SCH ×2 (05:37→18:09)
[2023-03-07] MEDS: OMEPRAZOLE 20 MG CAPSULE.DR GT SCH (05:37)
[2023-03-07] MEDS: ARGININE/GLUTAMINE/CALCIUM BMB 1 EACH POWD.PACK GT SCH ×2 (05:37→18:09)
[2023-03-07] MEDS: MIDODRINE HCL 5 MG TABLET GT SCH ×3 (05:38→21:42)
[2023-03-07] MEDS: PROTEIN SUPPLEMENT (PROSTAT) 30 ML LIQUID GT SCH ×3 (05:39→21:42)
[2023-03-07] MEDS: HYDROGEN PEROXIDE 3% 118 ML BOTTLE TP SCH ×2 (08:22→22:00)
[2023-03-07] MEDS: ACETAMINOPHEN 650 MG/20.3 ML LIQUID UDC GT SCH ×2 (08:30→20:30)
[2023-03-07] MEDS: ACIDOPHILUS/BULGARICUS CHEW TAB GT SCH ×2 (09:57→21:41)
[2023-03-07] MEDS: NITROFURANTOIN MACROCRYSTAL 100 MG CAPSULE GT SCH (09:57)
[2023-03-07] MEDS: REMEDY ESSENTIAL ZINC PASTE 113 GM TP SCH ×2 (09:57→21:41)
[2023-03-07] MEDS: SILVER SULFADIAZINE 1% CREAM 50 GM TP SCH ×4 (09:58→21:41)
[2023-03-07] MEDS: APIXABAN 2.5 MG TABLET GT SCH ×2 (09:58→21:41)
[2023-03-07] MEDS: VITAMINS A AND D 5 GM UD PKT TP SCH ×2 (09:58→21:41)
[2023-03-07] MEDS: SERTRALINE HCL 25 MG TABLET GT SCH (12:50)
[2023-03-07] MEDS: ASCORBIC ACID 500 MG TABLET GT SCH (21:41)
[2023-03-07] MEDS: ESTROGENS,CONJU VAGINAL CREAM 42.5 GM TUBE VG SCH (21:41)
[2023-03-07] MEDS: SIMVASTATIN 10 MG TABLET GT SCH (21:41)
[2023-03-07] MEDS: MULTIVIT, IRON, MIN NO. 8, FA TABLET GT SCH (21:41)
[2023-03-07] MEDS: FOSFOMYCIN TROMETHAMINE 3 GM PACKET GT SCH (21:41)
[2023-03-07] MEDS: TEMAZEPAM 7.5 MG CAPSULE GT PRN (21:42)
[2023-03-08] VITALS (14 sets, daily range): TEMP 98.3–98.5; O2SAT 96–99
[2023-03-08] MEDS: BACLOFEN 10 MG TABLET GT SCH ×4 (00:23→17:55)
[2023-03-08] MEDS: ALBUTEROL SULFATE 2.5 MG/3 ML NEBU NEB SCH ×7 (00:40→23:24)
[2023-03-08] MEDS: IPRATROPIUM BROMIDE 0.5 MG/2.5 ML NEBU NEB SCH ×7 (00:40→23:24)
[2023-03-08] MEDS: OMEPRAZOLE 20 MG CAPSULE.DR GT SCH (05:36)
[2023-03-08] MEDS: OMEGA-3 FATTY ACIDS/FISH OIL CAPSULE GT SCH ×2 (05:36→17:54)
[2023-03-08] MEDS: MIDODRINE HCL 5 MG TABLET GT SCH ×3 (05:36→22:45)
[2023-03-08] MEDS: ARGININE/GLUTAMINE/CALCIUM BMB 1 EACH POWD.PACK GT SCH ×2 (05:36→17:54)
[2023-03-08] MEDS: PROTEIN SUPPLEMENT (PROSTAT) 30 ML LIQUID GT SCH ×3 (05:37→22:45)
[2023-03-08] MEDS: HYDROGEN PEROXIDE 3% 118 ML BOTTLE TP SCH ×2 (09:05→21:04)
[2023-03-08] MEDS: ACETAMINOPHEN 650 MG/20.3 ML LIQUID UDC GT SCH ×2 (09:18→20:29)
[2023-03-08] MEDS: APIXABAN 2.5 MG TABLET GT SCH ×2 (09:20→20:29)
[2023-03-08] MEDS: ACIDOPHILUS/BULGARICUS CHEW TAB GT SCH ×2 (09:21→20:29)
[2023-03-08] MEDS: NITROFURANTOIN MACROCRYSTAL 100 MG CAPSULE GT SCH (09:21)
[2023-03-08] MEDS: REMEDY ESSENTIAL ZINC PASTE 113 GM TP SCH ×2 (09:24→20:30)
[2023-03-08] MEDS: SILVER SULFADIAZINE 1% CREAM 50 GM TP SCH ×4 (09:24→20:30)
[2023-03-08] MEDS: VITAMINS A AND D 5 GM UD PKT TP SCH ×2 (09:24→20:31)
[2023-03-08] MEDS: GLUCERNA 1.2 1000ML LIQUID GT PRN (11:43)
[2023-03-08] MEDS: SERTRALINE HCL 25 MG TABLET GT SCH (11:50)
[2023-03-08] MEDS: MULTIVIT, IRON, MIN NO. 8, FA TABLET GT SCH (20:30)
[2023-03-08] MEDS: SIMVASTATIN 10 MG TABLET GT SCH (20:30)
[2023-03-08] MEDS: ASCORBIC ACID 500 MG TABLET GT SCH (20:30)
[2023-03-08] MEDS: ESTROGENS,CONJU VAGINAL CREAM 42.5 GM TUBE VG SCH (20:31)
[2023-03-09] VITALS (13 sets, daily range): TEMP 97.7–98.5; O2SAT 98–99
[2023-03-09] MEDS: BACLOFEN 10 MG TABLET GT SCH ×5 (00:07→23:32)
[2023-03-09] MEDS: ALBUTEROL SULFATE 2.5 MG/3 ML NEBU NEB SCH ×6 (03:33→23:01)
[2023-03-09] MEDS: IPRATROPIUM BROMIDE 0.5 MG/2.5 ML NEBU NEB SCH ×6 (03:33→23:01)
[2023-03-09] MEDS: ARGININE/GLUTAMINE/CALCIUM BMB 1 EACH POWD.PACK GT SCH ×2 (05:48→17:13)
[2023-03-09] MEDS: OMEPRAZOLE 20 MG CAPSULE.DR GT SCH (05:48)
[2023-03-09] MEDS: OMEGA-3 FATTY ACIDS/FISH OIL CAPSULE GT SCH ×2 (05:48→17:13)
[2023-03-09] MEDS: MIDODRINE HCL 5 MG TABLET GT SCH ×3 (05:49→21:11)
[2023-03-09] MEDS: PROTEIN SUPPLEMENT (PROSTAT) 30 ML LIQUID GT SCH ×3 (05:49→21:11)
[2023-03-09] MEDS: ACETAMINOPHEN 650 MG/20.3 ML LIQUID UDC GT SCH ×2 (08:20→20:50)
[2023-03-09] MEDS: ACIDOPHILUS/BULGARICUS CHEW TAB GT SCH ×2 (08:21→21:09)
[2023-03-09] MEDS: SILVER SULFADIAZINE 1% CREAM 50 GM TP SCH ×4 (08:21→21:10)
[2023-03-09] MEDS: VITAMINS A AND D 5 GM UD PKT TP SCH ×2 (08:21→21:10)
[2023-03-09] MEDS: REMEDY ESSENTIAL ZINC PASTE 113 GM TP SCH ×2 (08:21→21:10)
[2023-03-09] MEDS: APIXABAN 2.5 MG TABLET GT SCH ×2 (08:21→21:09)
[2023-03-09] MEDS: NITROFURANTOIN MACROCRYSTAL 100 MG CAPSULE GT SCH (08:21)
[2023-03-09] MEDS: HYDROGEN PEROXIDE 3% 118 ML BOTTLE TP SCH ×2 (09:26→21:03)
[2023-03-09] MEDS: SERTRALINE HCL 25 MG TABLET GT SCH (12:00)
[2023-03-09] MEDS: GLUCERNA 1.2 1000ML LIQUID GT PRN (17:24)
[2023-03-09] MEDS: MULTIVIT, IRON, MIN NO. 8, FA TABLET GT SCH (21:09)
[2023-03-09] MEDS: ASCORBIC ACID 500 MG TABLET GT SCH (21:09)
[2023-03-09] MEDS: SIMVASTATIN 10 MG TABLET GT SCH (21:09)
[2023-03-09] MEDS: ESTROGENS,CONJU VAGINAL CREAM 42.5 GM TUBE VG SCH (21:10)
[2023-03-10] VITALS (14 sets, daily range): TEMP 97.6–98.5; O2SAT 96–99
[2023-03-10] MEDS: IPRATROPIUM BROMIDE 0.5 MG/2.5 ML NEBU NEB SCH ×6 (03:00→23:30)
[2023-03-10] MEDS: ALBUTEROL SULFATE 2.5 MG/3 ML NEBU NEB SCH ×6 (03:00→23:30)
[2023-03-10] MEDS: OMEPRAZOLE 20 MG CAPSULE.DR GT SCH (05:52)
[2023-03-10] MEDS: BACLOFEN 10 MG TABLET GT SCH ×3 (05:52→17:17)
[2023-03-10] MEDS: ARGININE/GLUTAMINE/CALCIUM BMB 1 EACH POWD.PACK GT SCH ×2 (05:52→17:17)
[2023-03-10] MEDS: OMEGA-3 FATTY ACIDS/FISH OIL CAPSULE GT SCH ×2 (05:52→17:16)
[2023-03-10] MEDS: MIDODRINE HCL 5 MG TABLET GT SCH ×3 (05:52→22:00)
[2023-03-10] MEDS: PROTEIN SUPPLEMENT (PROSTAT) 30 ML LIQUID GT SCH ×3 (05:52→22:02)
[2023-03-10] MEDS: HYDROGEN PEROXIDE 3% 118 ML BOTTLE TP SCH ×2 (08:29→21:00)
[2023-03-10] MEDS: ACETAMINOPHEN 650 MG/20.3 ML LIQUID UDC GT SCH ×2 (08:58→20:30)
[2023-03-10] MEDS: APIXABAN 2.5 MG TABLET GT SCH ×2 (09:00→21:59)
[2023-03-10] MEDS: NITROFURANTOIN MACROCRYSTAL 100 MG CAPSULE GT SCH (09:01)
[2023-03-10] MEDS: ACIDOPHILUS/BULGARICUS CHEW TAB GT SCH ×2 (09:01→21:00)
[2023-03-10] MEDS: REMEDY ESSENTIAL ZINC PASTE 113 GM TP SCH ×2 (09:01→21:00)
[2023-03-10] MEDS: VITAMINS A AND D 5 GM UD PKT TP SCH ×2 (09:02→21:00)
[2023-03-10] MEDS: SILVER SULFADIAZINE 1% CREAM 50 GM TP SCH ×4 (09:02→21:00)
[2023-03-10] MEDS: SERTRALINE HCL 25 MG TABLET GT SCH (12:00)
[2023-03-10] MEDS: GLUCERNA 1.2 1000ML LIQUID GT PRN (17:19)
[2023-03-10] MEDS: SIMVASTATIN 10 MG TABLET GT SCH (21:00)
[2023-03-10] MEDS: MULTIVIT, IRON, MIN NO. 8, FA TABLET GT SCH (21:00)
[2023-03-10] MEDS: ASCORBIC ACID 500 MG TABLET GT SCH (21:00)
[2023-03-10] MEDS: ESTROGENS,CONJU VAGINAL CREAM 42.5 GM TUBE VG SCH (21:00)
[2023-03-10] MEDS: TEMAZEPAM 7.5 MG CAPSULE GT PRN (21:30)
[2023-03-11] VITALS (14 sets, daily range): TEMP 98.3–99; O2SAT 96–99
[2023-03-11] MEDS: IPRATROPIUM BROMIDE 0.5 MG/2.5 ML NEBU NEB SCH ×6 (03:33→23:30)
[2023-03-11] MEDS: ALBUTEROL SULFATE 2.5 MG/3 ML NEBU NEB SCH ×6 (03:33→23:30)
[2023-03-11] MEDS: ARGININE/GLUTAMINE/CALCIUM BMB 1 EACH POWD.PACK GT SCH ×2 (05:05→17:25)
[2023-03-11] MEDS: BACLOFEN 10 MG TABLET GT SCH ×5 (05:05→23:06)
[2023-03-11] MEDS: OMEPRAZOLE 20 MG CAPSULE.DR GT SCH (05:05)
[2023-03-11] MEDS: OMEGA-3 FATTY ACIDS/FISH OIL CAPSULE GT SCH ×2 (05:05→17:25)
[2023-03-11] MEDS: PROTEIN SUPPLEMENT (PROSTAT) 30 ML LIQUID GT SCH ×3 (05:06→22:21)
[2023-03-11] MEDS: MIDODRINE HCL 5 MG TABLET GT SCH ×3 (05:06→22:21)
[2023-03-11] MEDS: HYDROGEN PEROXIDE 3% 118 ML BOTTLE TP SCH ×2 (08:52→20:54)
[2023-03-11] MEDS: APIXABAN 2.5 MG TABLET GT SCH (09:00)
[2023-03-11] MEDS: ACETAMINOPHEN 650 MG/20.3 ML LIQUID UDC GT SCH ×2 (09:12→20:30)
[2023-03-11] MEDS: ACIDOPHILUS/BULGARICUS CHEW TAB GT SCH ×2 (09:17→21:00)
[2023-03-11] MEDS: NITROFURANTOIN MACROCRYSTAL 100 MG CAPSULE GT SCH (09:17)
[2023-03-11] MEDS: REMEDY ESSENTIAL ZINC PASTE 113 GM TP SCH ×2 (09:17→21:00)
[2023-03-11] MEDS: SILVER SULFADIAZINE 1% CREAM 50 GM TP SCH ×4 (09:18→21:00)
[2023-03-11] MEDS: VITAMINS A AND D 5 GM UD PKT TP SCH ×2 (09:18→21:00)
[2023-03-11] MEDS: SERTRALINE HCL 25 MG TABLET GT SCH (12:42)
[2023-03-11] MEDS: SIMVASTATIN 10 MG TABLET GT SCH (21:00)
[2023-03-11] MEDS: MULTIVIT, IRON, MIN NO. 8, FA TABLET GT SCH (21:00)
[2023-03-11] MEDS: ESTROGENS,CONJU VAGINAL CREAM 42.5 GM TUBE VG SCH (21:00)
[2023-03-11] MEDS: ASCORBIC ACID 500 MG TABLET GT SCH (21:00)
[2023-03-11] MEDS: TEMAZEPAM 7.5 MG CAPSULE GT PRN (22:00)
[2023-03-11] MEDS: GLUCERNA 1.2 1000ML LIQUID GT PRN (22:23)
[2023-03-12] VITALS (12 sets, daily range): TEMP 98.7–98.9; O2SAT 97–99
[2023-03-12] MEDS: IPRATROPIUM BROMIDE 0.5 MG/2.5 ML NEBU NEB SCH ×5 (03:41→20:10)
[2023-03-12] MEDS: ALBUTEROL SULFATE 2.5 MG/3 ML NEBU NEB SCH ×5 (03:41→20:10)
[2023-03-12] MEDS: MIDODRINE HCL 5 MG TABLET GT SCH ×3 (05:25→21:38)
[2023-03-12] MEDS: OMEPRAZOLE 20 MG CAPSULE.DR GT SCH (05:25)
[2023-03-12] MEDS: PROTEIN SUPPLEMENT (PROSTAT) 30 ML LIQUID GT SCH ×3 (05:25→21:38)
[2023-03-12] MEDS: BACLOFEN 10 MG TABLET GT SCH ×3 (05:25→17:11)
[2023-03-12] MEDS: OMEGA-3 FATTY ACIDS/FISH OIL CAPSULE GT SCH ×2 (05:25→17:11)
[2023-03-12] MEDS: ARGININE/GLUTAMINE/CALCIUM BMB 1 EACH POWD.PACK GT SCH ×2 (05:25→17:11)
[2023-03-12] MEDS: HYDROGEN PEROXIDE 3% 118 ML BOTTLE TP SCH ×2 (07:27→21:16)
[2023-03-12] MEDS: ACETAMINOPHEN 650 MG/20.3 ML LIQUID UDC GT SCH ×2 (08:30→20:30)
[2023-03-12] MEDS: NITROFURANTOIN MACROCRYSTAL 100 MG CAPSULE GT SCH (09:31)
[2023-03-12] MEDS: ACIDOPHILUS/BULGARICUS CHEW TAB GT SCH ×2 (09:31→21:37)
[2023-03-12] MEDS: REMEDY ESSENTIAL ZINC PASTE 113 GM TP SCH ×2 (09:32→21:37)
[2023-03-12] MEDS: VITAMINS A AND D 5 GM UD PKT TP SCH ×2 (09:32→21:38)
[2023-03-12] MEDS: SILVER SULFADIAZINE 1% CREAM 50 GM TP SCH ×4 (09:32→21:38)
[2023-03-12] MEDS: SERTRALINE HCL 25 MG TABLET GT SCH (12:00)
[2023-03-12] MEDS: TEMAZEPAM 7.5 MG CAPSULE GT PRN (21:30)
[2023-03-12] MEDS: SIMVASTATIN 10 MG TABLET GT SCH (21:37)
[2023-03-12] MEDS: ASCORBIC ACID 500 MG TABLET GT SCH (21:37)
[2023-03-12] MEDS: MULTIVIT, IRON, MIN NO. 8, FA TABLET GT SCH (21:37)
[2023-03-12] MEDS: ESTROGENS,CONJU VAGINAL CREAM 42.5 GM TUBE VG SCH (21:38)
[2023-03-13] VITALS (15 sets, daily range): TEMP 98–98.7; O2SAT 97–99
[2023-03-13] MEDS: ALBUTEROL SULFATE 2.5 MG/3 ML NEBU NEB SCH ×7 (00:04→23:07)
[2023-03-13] MEDS: IPRATROPIUM BROMIDE 0.5 MG/2.5 ML NEBU NEB SCH ×7 (00:04→23:07)
[2023-03-13] MEDS: GLUCERNA 1.2 1000ML LIQUID GT PRN (02:37)
[2023-03-13] MEDS: ARGININE/GLUTAMINE/CALCIUM BMB 1 EACH POWD.PACK GT SCH ×2 (05:05→17:25)
[2023-03-13] MEDS: PROTEIN SUPPLEMENT (PROSTAT) 30 ML LIQUID GT SCH ×3 (05:05→21:49)
[2023-03-13] MEDS: OMEGA-3 FATTY ACIDS/FISH OIL CAPSULE GT SCH ×2 (05:05→17:25)
[2023-03-13] MEDS: MIDODRINE HCL 5 MG TABLET GT SCH ×3 (05:05→21:48)
[2023-03-13] MEDS: OMEPRAZOLE 20 MG CAPSULE.DR GT SCH (05:05)
[2023-03-13] MEDS: BACLOFEN 10 MG TABLET GT SCH ×4 (05:05→17:25)
[2023-03-13 06:46] LABS: CALCIUM 9.8 mg/dL (8.5-10.1); CREATININE 1.1 mg/dL (0.6-1.3); POTASSIUM 3.1 mmol/L (3.5-5.1)
[2023-03-13] MEDS: HYDROGEN PEROXIDE 3% 118 ML BOTTLE TP SCH ×2 (08:19→21:53)
[2023-03-13] MEDS: ACETAMINOPHEN 650 MG/20.3 ML LIQUID UDC GT SCH ×2 (09:14→20:30)
[2023-03-13] MEDS: REMEDY ESSENTIAL ZINC PASTE 113 GM TP SCH ×2 (09:14→21:45)
[2023-03-13] MEDS: NITROFURANTOIN MACROCRYSTAL 100 MG CAPSULE GT SCH (09:16)
[2023-03-13] MEDS: VITAMINS A AND D 5 GM UD PKT TP SCH ×2 (09:17→21:47)
[2023-03-13] MEDS: SILVER SULFADIAZINE 1% CREAM 50 GM TP SCH ×4 (09:17→21:47)
[2023-03-13] MEDS: ACIDOPHILUS/BULGARICUS CHEW TAB GT SCH ×2 (09:20→21:41)
[2023-03-13] MEDS ORDERED: POTASSIUM CHLORIDE 10 MEQ TAB.PRT.SR XX ONE (11:00)
[2023-03-13] MEDS: SERTRALINE HCL 25 MG TABLET GT SCH (12:00)
[2023-03-13] MEDS: ESTROGENS,CONJU VAGINAL CREAM 42.5 GM TUBE VG SCH (21:00)
[2023-03-13] MEDS: MULTIVIT, IRON, MIN NO. 8, FA TABLET GT SCH (21:43)
[2023-03-13] MEDS: ASCORBIC ACID 500 MG TABLET GT SCH (21:44)
[2023-03-13] MEDS: SIMVASTATIN 10 MG TABLET GT SCH (21:44)
[2023-03-14] VITALS (15 sets, daily range): TEMP 98.1–99.3; O2SAT 98–99
[2023-03-14] MEDS: BACLOFEN 10 MG TABLET GT SCH ×4 (00:03→17:35)
[2023-03-14] MEDS: IPRATROPIUM BROMIDE 0.5 MG/2.5 ML NEBU NEB SCH ×6 (03:19→23:25)
[2023-03-14] MEDS: ALBUTEROL SULFATE 2.5 MG/3 ML NEBU NEB SCH ×6 (03:19→23:26)
[2023-03-14] MEDS: PROTEIN SUPPLEMENT (PROSTAT) 30 ML LIQUID GT SCH ×3 (05:52→21:18)
[2023-03-14] MEDS: OMEPRAZOLE 20 MG CAPSULE.DR GT SCH (05:52)
[2023-03-14] MEDS: ARGININE/GLUTAMINE/CALCIUM BMB 1 EACH POWD.PACK GT SCH ×2 (05:52→17:35)
[2023-03-14] MEDS: OMEGA-3 FATTY ACIDS/FISH OIL CAPSULE GT SCH ×2 (05:52→17:35)
[2023-03-14] MEDS: MIDODRINE HCL 5 MG TABLET GT SCH ×3 (06:00→21:17)
[2023-03-14] MEDS: HYDROGEN PEROXIDE 3% 118 ML BOTTLE TP SCH ×2 (08:12→22:21)
[2023-03-14] MEDS: ACETAMINOPHEN 650 MG/20.3 ML LIQUID UDC GT SCH ×2 (08:36→21:14)
[2023-03-14] MEDS: SILVER SULFADIAZINE 1% CREAM 50 GM TP SCH ×4 (08:36→21:17)
[2023-03-14] MEDS: NITROFURANTOIN MACROCRYSTAL 100 MG CAPSULE GT SCH (08:36)
[2023-03-14] MEDS: REMEDY ESSENTIAL ZINC PASTE 113 GM TP SCH ×2 (08:36→21:16)
[2023-03-14] MEDS: ACIDOPHILUS/BULGARICUS CHEW TAB GT SCH ×2 (08:36→21:15)
[2023-03-14] MEDS: VITAMINS A AND D 5 GM UD PKT TP SCH ×2 (08:37→21:17)
[2023-03-14] MEDS: GLUCERNA 1.2 1000ML LIQUID GT PRN (12:01)
[2023-03-14] MEDS: SERTRALINE HCL 25 MG TABLET GT SCH (12:01)
[2023-03-14] MEDS: MULTIVIT, IRON, MIN NO. 8, FA TABLET GT SCH (21:16)
[2023-03-14] MEDS: ASCORBIC ACID 500 MG TABLET GT SCH (21:16)
[2023-03-14] MEDS: ESTROGENS,CONJU VAGINAL CREAM 42.5 GM TUBE VG SCH (21:17)
[2023-03-14] MEDS: FOSFOMYCIN TROMETHAMINE 3 GM PACKET GT SCH (21:22)
[2023-03-14] MEDS: SIMVASTATIN 10 MG TABLET GT SCH (21:35)
[2023-03-15] VITALS (14 sets, daily range): TEMP 98–99.5; O2SAT 98–99
[2023-03-15] MEDS: IPRATROPIUM BROMIDE 0.5 MG/2.5 ML NEBU NEB SCH ×6 (03:06→23:29)
[2023-03-15] MEDS: ALBUTEROL SULFATE 2.5 MG/3 ML NEBU NEB SCH ×6 (03:06→23:29)
[2023-03-15] MEDS: BACLOFEN 10 MG TABLET GT SCH ×4 (06:12→17:43)
[2023-03-15] MEDS: ARGININE/GLUTAMINE/CALCIUM BMB 1 EACH POWD.PACK GT SCH ×2 (06:12→17:43)
[2023-03-15] MEDS: PROTEIN SUPPLEMENT (PROSTAT) 30 ML LIQUID GT SCH ×3 (06:12→22:00)
[2023-03-15] MEDS: OMEGA-3 FATTY ACIDS/FISH OIL CAPSULE GT SCH ×2 (06:12→17:43)
[2023-03-15] MEDS: OMEPRAZOLE 20 MG CAPSULE.DR GT SCH (06:12)
[2023-03-15] MEDS: MIDODRINE HCL 5 MG TABLET GT SCH ×3 (06:12→22:00)
[2023-03-15] MEDS: ACETAMINOPHEN 650 MG/20.3 ML LIQUID UDC GT SCH ×2 (09:09→20:30)
[2023-03-15] MEDS: ACIDOPHILUS/BULGARICUS CHEW TAB GT SCH ×2 (09:09→21:00)
[2023-03-15] MEDS: SILVER SULFADIAZINE 1% CREAM 50 GM TP SCH ×4 (09:10→21:00)
[2023-03-15] MEDS: NITROFURANTOIN MACROCRYSTAL 100 MG CAPSULE GT SCH (09:10)
[2023-03-15] MEDS: VITAMINS A AND D 5 GM UD PKT TP SCH ×2 (09:10→21:00)
[2023-03-15] MEDS: REMEDY ESSENTIAL ZINC PASTE 113 GM TP SCH ×2 (09:10→21:00)
[2023-03-15] MEDS: HYDROGEN PEROXIDE 3% 118 ML BOTTLE TP SCH ×2 (09:25→20:50)
[2023-03-15] MEDS: SERTRALINE HCL 25 MG TABLET GT SCH (12:35)
[2023-03-15] MEDS: GLUCERNA 1.2 1000ML LIQUID GT PRN (17:45)
[2023-03-15] MEDS: ESTROGENS,CONJU VAGINAL CREAM 42.5 GM TUBE VG SCH (21:00)
[2023-03-15] MEDS: SIMVASTATIN 10 MG TABLET GT SCH (21:00)
[2023-03-15] MEDS: MULTIVIT, IRON, MIN NO. 8, FA TABLET GT SCH (21:00)
[2023-03-15] MEDS: ASCORBIC ACID 500 MG TABLET GT SCH (21:00)
[2023-03-16] VITALS (14 sets, daily range): TEMP 98.2–98.6; O2SAT 98–99
[2023-03-16] MEDS: BACLOFEN 10 MG TABLET GT SCH ×4 (00:11→17:50)
[2023-03-16] MEDS: IPRATROPIUM BROMIDE 0.5 MG/2.5 ML NEBU NEB SCH ×6 (03:01→23:00)
[2023-03-16] MEDS: ALBUTEROL SULFATE 2.5 MG/3 ML NEBU NEB SCH ×6 (03:01→23:00)
[2023-03-16] MEDS: PROTEIN SUPPLEMENT (PROSTAT) 30 ML LIQUID GT SCH ×3 (06:00→21:57)
[2023-03-16] MEDS: ARGININE/GLUTAMINE/CALCIUM BMB 1 EACH POWD.PACK GT SCH ×2 (06:00→17:50)
[2023-03-16] MEDS: OMEPRAZOLE 20 MG CAPSULE.DR GT SCH (06:00)
[2023-03-16] MEDS: OMEGA-3 FATTY ACIDS/FISH OIL CAPSULE GT SCH ×2 (06:00→17:50)
[2023-03-16] MEDS: MIDODRINE HCL 5 MG TABLET GT SCH ×3 (06:00→22:00)
[2023-03-16] MEDS: HYDROGEN PEROXIDE 3% 118 ML BOTTLE TP SCH ×2 (07:30→21:14)
[2023-03-16] MEDS: ACETAMINOPHEN 650 MG/20.3 ML LIQUID UDC GT SCH ×2 (08:39→20:30)
[2023-03-16] MEDS: ACIDOPHILUS/BULGARICUS CHEW TAB GT SCH ×2 (08:39→21:53)
[2023-03-16] MEDS: REMEDY ESSENTIAL ZINC PASTE 113 GM TP SCH ×2 (08:42→21:56)
[2023-03-16] MEDS: NITROFURANTOIN MACROCRYSTAL 100 MG CAPSULE GT SCH (08:42)
[2023-03-16] MEDS: VITAMINS A AND D 5 GM UD PKT TP SCH ×2 (08:43→21:56)
[2023-03-16] MEDS: SILVER SULFADIAZINE 1% CREAM 50 GM TP SCH ×4 (08:43→21:56)
[2023-03-16] MEDS: SERTRALINE HCL 25 MG TABLET GT SCH (11:46)
[2023-03-16] MEDS: ESTROGENS,CONJU VAGINAL CREAM 42.5 GM TUBE VG SCH (21:00)
[2023-03-16] MEDS: ASCORBIC ACID 500 MG TABLET GT SCH (21:53)
[2023-03-16] MEDS: MULTIVIT, IRON, MIN NO. 8, FA TABLET GT SCH (21:53)
[2023-03-16] MEDS: SIMVASTATIN 10 MG TABLET GT SCH (21:53)
[2023-03-17] VITALS (14 sets, daily range): BP systolic 101; BP diastolic 43; TEMP 98.5–98.9; O2SAT 96–99
[2023-03-17] MEDS: ALBUTEROL SULFATE 2.5 MG/3 ML NEBU NEB SCH ×6 (03:02→23:20)
[2023-03-17] MEDS: IPRATROPIUM BROMIDE 0.5 MG/2.5 ML NEBU NEB SCH ×6 (03:02→23:20)
[2023-03-17] MEDS: BACLOFEN 10 MG TABLET GT SCH ×4 (06:08→17:48)
[2023-03-17] MEDS: OMEGA-3 FATTY ACIDS/FISH OIL CAPSULE GT SCH ×2 (06:08→17:46)
[2023-03-17] MEDS: OMEPRAZOLE 20 MG CAPSULE.DR GT SCH (06:08)
[2023-03-17] MEDS: ARGININE/GLUTAMINE/CALCIUM BMB 1 EACH POWD.PACK GT SCH ×2 (06:08→17:47)
[2023-03-17] MEDS: MIDODRINE HCL 5 MG TABLET GT SCH ×3 (06:09→22:34)
[2023-03-17] MEDS: PROTEIN SUPPLEMENT (PROSTAT) 30 ML LIQUID GT SCH ×3 (06:10→22:34)
[2023-03-17] MEDS: ACETAMINOPHEN 650 MG/20.3 ML LIQUID UDC GT SCH ×2 (08:30→20:43)
[2023-03-17] MEDS: HYDROGEN PEROXIDE 3% 118 ML BOTTLE TP SCH ×2 (09:00→19:26)
[2023-03-17] MEDS: SILVER SULFADIAZINE 1% CREAM 50 GM TP SCH ×4 (09:00→20:44)
[2023-03-17] MEDS: VITAMINS A AND D 5 GM UD PKT TP SCH ×2 (09:00→20:44)
[2023-03-17] MEDS: ACIDOPHILUS/BULGARICUS CHEW TAB GT SCH ×2 (09:58→20:43)
[2023-03-17] MEDS: NITROFURANTOIN MACROCRYSTAL 100 MG CAPSULE GT SCH (09:59)
[2023-03-17] MEDS: REMEDY ESSENTIAL ZINC PASTE 113 GM TP SCH ×2 (09:59→20:43)
[2023-03-17] MEDS: SERTRALINE HCL 25 MG TABLET GT SCH (12:00)
[2023-03-17] MEDS: SIMVASTATIN 10 MG TABLET GT SCH (20:43)
[2023-03-17] MEDS: MULTIVIT, IRON, MIN NO. 8, FA TABLET GT SCH (20:43)
[2023-03-17] MEDS: ASCORBIC ACID 500 MG TABLET GT SCH (20:43)
[2023-03-17] MEDS: ESTROGENS,CONJU VAGINAL CREAM 42.5 GM TUBE VG SCH (20:44)
[2023-03-18] VITALS (14 sets, daily range): TEMP 97.8–98.2; O2SAT 98–99
[2023-03-18] MEDS: BACLOFEN 10 MG TABLET GT SCH ×4 (00:01→17:42)
[2023-03-18] MEDS: ALBUTEROL SULFATE 2.5 MG/3 ML NEBU NEB SCH ×6 (03:30→23:03)
[2023-03-18] MEDS: IPRATROPIUM BROMIDE 0.5 MG/2.5 ML NEBU NEB SCH ×6 (03:30→23:03)
[2023-03-18] MEDS: MIDODRINE HCL 5 MG TABLET GT SCH ×3 (06:00→21:42)
[2023-03-18] MEDS: OMEPRAZOLE 20 MG CAPSULE.DR GT SCH (06:00)
[2023-03-18] MEDS: ARGININE/GLUTAMINE/CALCIUM BMB 1 EACH POWD.PACK GT SCH ×2 (06:00→17:36)
[2023-03-18] MEDS: PROTEIN SUPPLEMENT (PROSTAT) 30 ML LIQUID GT SCH ×3 (06:00→21:42)
[2023-03-18] MEDS: OMEGA-3 FATTY ACIDS/FISH OIL CAPSULE GT SCH ×2 (06:00→17:38)
[2023-03-18] MEDS: ACETAMINOPHEN 650 MG/20.3 ML LIQUID UDC GT SCH ×2 (09:00→20:30)
[2023-03-18] MEDS: ACIDOPHILUS/BULGARICUS CHEW TAB GT SCH ×2 (09:01→21:40)
[2023-03-18] MEDS: REMEDY ESSENTIAL ZINC PASTE 113 GM TP SCH ×2 (09:01→21:41)
[2023-03-18] MEDS: NITROFURANTOIN MACROCRYSTAL 100 MG CAPSULE GT SCH (09:01)
[2023-03-18] MEDS: VITAMINS A AND D 5 GM UD PKT TP SCH ×2 (09:01→21:41)
[2023-03-18] MEDS: SILVER SULFADIAZINE 1% CREAM 50 GM TP SCH ×4 (09:08→21:41)
[2023-03-18] MEDS: HYDROGEN PEROXIDE 3% 118 ML BOTTLE TP SCH ×2 (09:34→21:23)
[2023-03-18] MEDS: SERTRALINE HCL 25 MG TABLET GT SCH (12:23)
[2023-03-18] MEDS: MULTIVIT, IRON, MIN NO. 8, FA TABLET GT SCH (21:40)
[2023-03-18] MEDS: ASCORBIC ACID 500 MG TABLET GT SCH (21:40)
[2023-03-18] MEDS: SIMVASTATIN 10 MG TABLET GT SCH (21:41)
[2023-03-18] MEDS: ESTROGENS,CONJU VAGINAL CREAM 42.5 GM TUBE VG SCH (21:41)
[2023-03-19] VITALS (14 sets, daily range): TEMP 98.4–98.7; O2SAT 99
[2023-03-19] MEDS: BACLOFEN 10 MG TABLET GT SCH ×4 (00:41→17:15)
[2023-03-19] MEDS: IPRATROPIUM BROMIDE 0.5 MG/2.5 ML NEBU NEB SCH ×6 (03:00→23:13)
[2023-03-19] MEDS: ALBUTEROL SULFATE 2.5 MG/3 ML NEBU NEB SCH ×6 (03:00→23:13)
[2023-03-19] MEDS: OMEGA-3 FATTY ACIDS/FISH OIL CAPSULE GT SCH ×2 (06:13→17:15)
[2023-03-19] MEDS: MIDODRINE HCL 5 MG TABLET GT SCH ×3 (06:14→21:31)
[2023-03-19] MEDS: OMEPRAZOLE 20 MG CAPSULE.DR GT SCH (06:14)
[2023-03-19] MEDS: ARGININE/GLUTAMINE/CALCIUM BMB 1 EACH POWD.PACK GT SCH ×2 (06:14→17:15)
[2023-03-19] MEDS: PROTEIN SUPPLEMENT (PROSTAT) 30 ML LIQUID GT SCH ×3 (06:14→21:31)
[2023-03-19] MEDS: HYDROGEN PEROXIDE 3% 118 ML BOTTLE TP SCH ×2 (08:16→19:28)
[2023-03-19] MEDS: NITROFURANTOIN MACROCRYSTAL 100 MG CAPSULE GT SCH (08:55)
[2023-03-19] MEDS: REMEDY ESSENTIAL ZINC PASTE 113 GM TP SCH ×2 (08:55→21:31)
[2023-03-19] MEDS: ACETAMINOPHEN 650 MG/20.3 ML LIQUID UDC GT SCH ×2 (08:55→20:40)
[2023-03-19] MEDS: ACIDOPHILUS/BULGARICUS CHEW TAB GT SCH ×2 (08:55→21:30)
[2023-03-19] MEDS: SILVER SULFADIAZINE 1% CREAM 50 GM TP SCH ×4 (08:56→21:31)
[2023-03-19] MEDS: VITAMINS A AND D 5 GM UD PKT TP SCH ×2 (08:56→21:31)
[2023-03-19] MEDS: SERTRALINE HCL 25 MG TABLET GT SCH (12:19)
[2023-03-19] MEDS: GLUCERNA 1.2 1000ML LIQUID GT PRN (16:13)
[2023-03-19] MEDS: MULTIVIT, IRON, MIN NO. 8, FA TABLET GT SCH (21:30)
[2023-03-19] MEDS: ASCORBIC ACID 500 MG TABLET GT SCH (21:30)
[2023-03-19] MEDS: ESTROGENS,CONJU VAGINAL CREAM 42.5 GM TUBE VG SCH (21:31)
[2023-03-19] MEDS: SIMVASTATIN 10 MG TABLET GT SCH (21:31)
[2023-03-20] VITALS (14 sets, daily range): TEMP 98.2–98.7; O2SAT 96–99
[2023-03-20] MEDS: ALBUTEROL SULFATE 2.5 MG/3 ML NEBU NEB SCH ×6 (03:24→23:14)
[2023-03-20] MEDS: IPRATROPIUM BROMIDE 0.5 MG/2.5 ML NEBU NEB SCH ×6 (03:24→23:14)
[2023-03-20] MEDS: OMEGA-3 FATTY ACIDS/FISH OIL CAPSULE GT SCH ×2 (06:12→17:53)
[2023-03-20] MEDS: PROTEIN SUPPLEMENT (PROSTAT) 30 ML LIQUID GT SCH ×3 (06:12→21:58)
[2023-03-20] MEDS: BACLOFEN 10 MG TABLET GT SCH ×4 (06:12→17:53)
[2023-03-20] MEDS: ARGININE/GLUTAMINE/CALCIUM BMB 1 EACH POWD.PACK GT SCH ×2 (06:12→17:53)
[2023-03-20] MEDS: OMEPRAZOLE 20 MG CAPSULE.DR GT SCH (06:12)
[2023-03-20] MEDS: MIDODRINE HCL 5 MG TABLET GT SCH ×3 (06:13→21:57)
[2023-03-20] MEDS: HYDROGEN PEROXIDE 3% 118 ML BOTTLE TP SCH ×2 (07:12→19:12)
[2023-03-20] MEDS: ACETAMINOPHEN 650 MG/20.3 ML LIQUID UDC GT SCH ×2 (09:25→20:30)
[2023-03-20] MEDS: ACIDOPHILUS/BULGARICUS CHEW TAB GT SCH ×2 (09:25→21:57)
[2023-03-20] MEDS: NITROFURANTOIN MACROCRYSTAL 100 MG CAPSULE GT SCH (09:26)
[2023-03-20] MEDS: VITAMINS A AND D 5 GM UD PKT TP SCH ×2 (09:26→21:57)
[2023-03-20] MEDS: REMEDY ESSENTIAL ZINC PASTE 113 GM TP SCH ×2 (09:26→21:57)
[2023-03-20] MEDS: SILVER SULFADIAZINE 1% CREAM 50 GM TP SCH ×4 (09:26→21:57)
[2023-03-20] MEDS: SERTRALINE HCL 25 MG TABLET GT SCH (12:09)
[2023-03-20] MEDS: GLUCERNA 1.2 1000ML LIQUID GT PRN (18:12)
[2023-03-20] MEDS: APIXABAN 2.5 MG TABLET GT SCH (21:00)
[2023-03-20] MEDS: ESTROGENS,CONJU VAGINAL CREAM 42.5 GM TUBE VG SCH (21:57)
[2023-03-20] MEDS: ASCORBIC ACID 500 MG TABLET GT SCH (21:57)
[2023-03-20] MEDS: SIMVASTATIN 10 MG TABLET GT SCH (21:57)
[2023-03-20] MEDS: MULTIVIT, IRON, MIN NO. 8, FA TABLET GT SCH (21:57)
[2023-03-21] VITALS (14 sets, daily range): TEMP 98.8–99.4; O2SAT 97–99
[2023-03-21] MEDS: ALBUTEROL SULFATE 2.5 MG/3 ML NEBU NEB SCH ×6 (04:27→23:26)
[2023-03-21] MEDS: IPRATROPIUM BROMIDE 0.5 MG/2.5 ML NEBU NEB SCH ×6 (04:27→23:26)
[2023-03-21] MEDS: OMEPRAZOLE 20 MG CAPSULE.DR GT SCH (06:44)
[2023-03-21] MEDS: BACLOFEN 10 MG TABLET GT SCH ×5 (06:44→23:58)
[2023-03-21] MEDS: OMEGA-3 FATTY ACIDS/FISH OIL CAPSULE GT SCH ×2 (06:44→17:26)
[2023-03-21] MEDS: ARGININE/GLUTAMINE/CALCIUM BMB 1 EACH POWD.PACK GT SCH ×2 (06:44→17:26)
[2023-03-21] MEDS: PROTEIN SUPPLEMENT (PROSTAT) 30 ML LIQUID GT SCH ×3 (06:45→21:19)
[2023-03-21] MEDS: MIDODRINE HCL 5 MG TABLET GT SCH ×3 (06:45→21:19)
[2023-03-21] MEDS: HYDROGEN PEROXIDE 3% 118 ML BOTTLE TP SCH ×2 (07:24→19:30)
[2023-03-21] MEDS: ACETAMINOPHEN 650 MG/20.3 ML LIQUID UDC GT SCH ×2 (08:30→20:30)
[2023-03-21] MEDS: NITROFURANTOIN MACROCRYSTAL 100 MG CAPSULE GT SCH (09:00)
[2023-03-21] MEDS: VITAMINS A AND D 5 GM UD PKT TP SCH ×2 (09:00→21:19)
[2023-03-21] MEDS: APIXABAN 2.5 MG TABLET GT SCH ×2 (09:00→21:18)
[2023-03-21] MEDS: REMEDY ESSENTIAL ZINC PASTE 113 GM TP SCH ×2 (09:00→21:18)
[2023-03-21] MEDS: ACIDOPHILUS/BULGARICUS CHEW TAB GT SCH ×2 (09:00→21:18)
[2023-03-21] MEDS: SILVER SULFADIAZINE 1% CREAM 50 GM TP SCH ×4 (09:00→21:19)
[2023-03-21] MEDS: SERTRALINE HCL 25 MG TABLET GT SCH (12:54)
[2023-03-21] MEDS: MULTIVIT, IRON, MIN NO. 8, FA TABLET GT SCH (21:18)
[2023-03-21] MEDS: ASCORBIC ACID 500 MG TABLET GT SCH (21:18)
[2023-03-21] MEDS: SIMVASTATIN 10 MG TABLET GT SCH (21:18)
[2023-03-21] MEDS: FOSFOMYCIN TROMETHAMINE 3 GM PACKET GT SCH (21:18)
[2023-03-21] MEDS: ESTROGENS,CONJU VAGINAL CREAM 42.5 GM TUBE VG SCH (21:19)
[2023-03-21] MEDS: GLUCERNA 1.2 1000ML LIQUID GT PRN (23:58)
[2023-03-22] VITALS (13 sets, daily range): TEMP 97.6–99.4; O2SAT 98–99
[2023-03-22] MEDS: ALBUTEROL SULFATE 2.5 MG/3 ML NEBU NEB SCH ×6 (03:33→23:15)
[2023-03-22] MEDS: IPRATROPIUM BROMIDE 0.5 MG/2.5 ML NEBU NEB SCH ×6 (03:33→23:15)
[2023-03-22] MEDS: OMEPRAZOLE 20 MG CAPSULE.DR GT SCH (05:37)
[2023-03-22] MEDS: BACLOFEN 10 MG TABLET GT SCH ×3 (05:37→17:38)
[2023-03-22] MEDS: ARGININE/GLUTAMINE/CALCIUM BMB 1 EACH POWD.PACK GT SCH ×2 (05:37→17:37)
[2023-03-22] MEDS: OMEGA-3 FATTY ACIDS/FISH OIL CAPSULE GT SCH ×2 (05:37→17:37)
[2023-03-22] MEDS: MIDODRINE HCL 5 MG TABLET GT SCH ×3 (05:39→22:06)
[2023-03-22] MEDS: PROTEIN SUPPLEMENT (PROSTAT) 30 ML LIQUID GT SCH ×3 (05:39→22:07)
[2023-03-22] MEDS: ACETAMINOPHEN 650 MG/20.3 ML LIQUID UDC GT SCH ×2 (09:03→20:44)
[2023-03-22] MEDS: APIXABAN 2.5 MG TABLET GT SCH ×2 (09:07→20:45)
[2023-03-22] MEDS: ACIDOPHILUS/BULGARICUS CHEW TAB GT SCH ×2 (09:08→20:45)
[2023-03-22] MEDS: NITROFURANTOIN MACROCRYSTAL 100 MG CAPSULE GT SCH (09:09)
[2023-03-22] MEDS: REMEDY ESSENTIAL ZINC PASTE 113 GM TP SCH ×2 (09:09→20:46)
[2023-03-22] MEDS: SILVER SULFADIAZINE 1% CREAM 50 GM TP SCH ×4 (09:10→20:47)
[2023-03-22] MEDS: VITAMINS A AND D 5 GM UD PKT TP SCH ×2 (09:10→20:47)
[2023-03-22] MEDS: HYDROGEN PEROXIDE 3% 118 ML BOTTLE TP SCH ×2 (09:41→19:17)
[2023-03-22] MEDS: SERTRALINE HCL 25 MG TABLET GT SCH (12:42)
[2023-03-22] MEDS: ASCORBIC ACID 500 MG TABLET GT SCH (20:46)
[2023-03-22] MEDS: SIMVASTATIN 10 MG TABLET GT SCH (20:46)
[2023-03-22] MEDS: MULTIVIT, IRON, MIN NO. 8, FA TABLET GT SCH (20:46)
[2023-03-22] MEDS: ESTROGENS,CONJU VAGINAL CREAM 42.5 GM TUBE VG SCH (20:47)
[2023-03-22] MEDS: TEMAZEPAM 7.5 MG CAPSULE GT PRN (20:50)
[2023-03-23] VITALS (12 sets, daily range): TEMP 97.5–97.6; O2SAT 98–99
[2023-03-23] MEDS: BACLOFEN 10 MG TABLET GT SCH ×4 (00:33→17:44)
[2023-03-23] MEDS: IPRATROPIUM BROMIDE 0.5 MG/2.5 ML NEBU NEB SCH ×7 (03:25→23:30)
[2023-03-23] MEDS: ALBUTEROL SULFATE 2.5 MG/3 ML NEBU NEB SCH ×7 (03:25→23:30)
[2023-03-23] MEDS: OMEGA-3 FATTY ACIDS/FISH OIL CAPSULE GT SCH ×2 (05:40→17:42)
[2023-03-23] MEDS: OMEPRAZOLE 20 MG CAPSULE.DR GT SCH (05:40)
[2023-03-23] MEDS: ARGININE/GLUTAMINE/CALCIUM BMB 1 EACH POWD.PACK GT SCH ×2 (05:40→17:43)
[2023-03-23] MEDS: PROTEIN SUPPLEMENT (PROSTAT) 30 ML LIQUID GT SCH ×3 (05:41→21:02)
[2023-03-23] MEDS: MIDODRINE HCL 5 MG TABLET GT SCH ×3 (05:41→21:02)
[2023-03-23] MEDS: ACETAMINOPHEN 650 MG/20.3 ML LIQUID UDC GT SCH ×2 (08:30→20:35)
[2023-03-23] MEDS: APIXABAN 2.5 MG TABLET GT SCH ×2 (09:31→21:00)
[2023-03-23] MEDS: ACIDOPHILUS/BULGARICUS CHEW TAB GT SCH ×2 (09:32→20:35)
[2023-03-23] MEDS: REMEDY ESSENTIAL ZINC PASTE 113 GM TP SCH ×2 (09:34→21:02)
[2023-03-23] MEDS: NITROFURANTOIN MACROCRYSTAL 100 MG CAPSULE GT SCH (09:34)
[2023-03-23] MEDS: SILVER SULFADIAZINE 1% CREAM 50 GM TP SCH ×4 (09:36→20:37)
[2023-03-23] MEDS: VITAMINS A AND D 5 GM UD PKT TP SCH ×2 (09:37→20:37)
[2023-03-23] MEDS: GLUCERNA 1.2 1000ML LIQUID GT PRN (09:43)
[2023-03-23] MEDS: HYDROGEN PEROXIDE 3% 118 ML BOTTLE TP SCH ×2 (09:49→21:59)
[2023-03-23] MEDS: SERTRALINE HCL 25 MG TABLET GT SCH (12:45)
[2023-03-23] MEDS: ASCORBIC ACID 500 MG TABLET GT SCH (20:36)
[2023-03-23] MEDS: SIMVASTATIN 10 MG TABLET GT SCH (20:36)
[2023-03-23] MEDS: MULTIVIT, IRON, MIN NO. 8, FA TABLET GT SCH (20:36)
[2023-03-23] MEDS: ESTROGENS,CONJU VAGINAL CREAM 42.5 GM TUBE VG SCH (21:02)
[2023-03-23] MEDS: TEMAZEPAM 7.5 MG CAPSULE GT PRN (21:03)
[2023-03-23] MEDS: HYDROCODONE/APAP 10-325 MG TABLET GT PRN (22:00)
[2023-03-24] VITALS (14 sets, daily range): TEMP 98.2; O2SAT 96–99
[2023-03-24] MEDS: ALBUTEROL SULFATE 2.5 MG/3 ML NEBU NEB SCH ×6 (03:30→23:50)
[2023-03-24] MEDS: IPRATROPIUM BROMIDE 0.5 MG/2.5 ML NEBU NEB SCH ×6 (03:30→23:50)
[2023-03-24] MEDS: OMEPRAZOLE 20 MG CAPSULE.DR GT SCH (05:05)
[2023-03-24] MEDS: BACLOFEN 10 MG TABLET GT SCH ×4 (05:05→17:00)
[2023-03-24] MEDS: ARGININE/GLUTAMINE/CALCIUM BMB 1 EACH POWD.PACK GT SCH ×2 (05:05→17:00)
[2023-03-24] MEDS: OMEGA-3 FATTY ACIDS/FISH OIL CAPSULE GT SCH ×2 (05:05→17:00)
[2023-03-24] MEDS: PROTEIN SUPPLEMENT (PROSTAT) 30 ML LIQUID GT SCH ×3 (05:06→22:00)
[2023-03-24] MEDS: MIDODRINE HCL 5 MG TABLET GT SCH ×3 (05:06→22:00)
[2023-03-24] MEDS: ACETAMINOPHEN 650 MG/20.3 ML LIQUID UDC GT SCH ×2 (08:27→20:20)
[2023-03-24] MEDS: ACIDOPHILUS/BULGARICUS CHEW TAB GT SCH ×2 (08:27→20:20)
[2023-03-24] MEDS: REMEDY ESSENTIAL ZINC PASTE 113 GM TP SCH ×2 (08:28→20:22)
[2023-03-24] MEDS: NITROFURANTOIN MACROCRYSTAL 100 MG CAPSULE GT SCH (08:28)
[2023-03-24] MEDS: VITAMINS A AND D 5 GM UD PKT TP SCH ×2 (08:28→20:22)
[2023-03-24] MEDS: SILVER SULFADIAZINE 1% CREAM 50 GM TP SCH ×4 (08:28→20:22)
[2023-03-24] MEDS: APIXABAN 2.5 MG TABLET GT SCH ×2 (09:00→20:33)
[2023-03-24] MEDS: HYDROGEN PEROXIDE 3% 118 ML BOTTLE TP SCH ×2 (09:00→19:11)
[2023-03-24] MEDS: SERTRALINE HCL 25 MG TABLET GT SCH (12:23)
[2023-03-24] MEDS: SIMVASTATIN 10 MG TABLET GT SCH (20:22)
[2023-03-24] MEDS: MULTIVIT, IRON, MIN NO. 8, FA TABLET GT SCH (20:22)
[2023-03-24] MEDS: ESTROGENS,CONJU VAGINAL CREAM 42.5 GM TUBE VG SCH (20:22)
[2023-03-24] MEDS: ASCORBIC ACID 500 MG TABLET GT SCH (20:22)
[2023-03-25] VITALS (15 sets, daily range): BP systolic 107; BP diastolic 45; TEMP 97.4–102.6; O2SAT 94–99
[2023-03-25] MEDS: ALBUTEROL SULFATE 2.5 MG/3 ML NEBU NEB SCH ×6 (03:30→23:51)
[2023-03-25] MEDS: IPRATROPIUM BROMIDE 0.5 MG/2.5 ML NEBU NEB SCH ×6 (03:30→23:51)
[2023-03-25] MEDS: ARGININE/GLUTAMINE/CALCIUM BMB 1 EACH POWD.PACK GT SCH ×2 (05:56→17:13)
[2023-03-25] MEDS: BACLOFEN 10 MG TABLET GT SCH ×4 (05:56→17:14)
[2023-03-25] MEDS: OMEGA-3 FATTY ACIDS/FISH OIL CAPSULE GT SCH ×2 (05:56→17:13)
[2023-03-25] MEDS: OMEPRAZOLE 20 MG CAPSULE.DR GT SCH (05:56)
[2023-03-25] MEDS: MIDODRINE HCL 5 MG TABLET GT SCH ×3 (05:57→21:49)
[2023-03-25] MEDS: PROTEIN SUPPLEMENT (PROSTAT) 30 ML LIQUID GT SCH ×3 (05:57→21:24)
[2023-03-25] MEDS: HYDROGEN PEROXIDE 3% 118 ML BOTTLE TP SCH ×2 (07:32→21:00)
[2023-03-25] MEDS: ACETAMINOPHEN 650 MG/20.3 ML LIQUID UDC GT SCH ×2 (08:19→21:23)
[2023-03-25] MEDS: REMEDY ESSENTIAL ZINC PASTE 113 GM TP SCH ×2 (08:20→21:24)
[2023-03-25] MEDS: VITAMINS A AND D 5 GM UD PKT TP SCH ×2 (08:20→21:24)
[2023-03-25] MEDS: SILVER SULFADIAZINE 1% CREAM 50 GM TP SCH ×2 (08:20→21:24)
[2023-03-25] MEDS: ACIDOPHILUS/BULGARICUS CHEW TAB GT SCH ×2 (08:20→21:24)
[2023-03-25] MEDS: NITROFURANTOIN MACROCRYSTAL 100 MG CAPSULE GT SCH (08:20)
[2023-03-25] MEDS: APIXABAN 2.5 MG TABLET GT SCH ×2 (08:21→21:48)
[2023-03-25 09:59] LABS: BASOPHILS # (AUTO) 0.1 K/UL (0.0-0.2); BASOPHILS % (AUTO) 0.9 % (0.0-2.0); EOSINOPHILS # (AUTO) 0.2 K/uL (0.0-0.7); EOSINOPHILS % (AUTO) 1.3 % (0.0-7.0); HEMATOCRIT 40.2 % (31.2-41.9); HEMOGLOBIN 12.1 g/dL (10.9-14.3); LYMPHOCYTES # (AUTO) 2.2 K/uL (0.8-4.8); LYMPHOCYTES % (AUTO) 15.6 % (20.5-51.5); MEAN CORPUSCULAR HEMOGLOBIN 24.5 uug (24.7-32.8); MEAN CORPUSCULAR HGB CONC 30 g/dL (32.3-35.6); MEAN CORPUSCULAR VOLUME 81.4 fL (75.5-95.3); MONOCYTES % (AUTO) 7.3 % (0.0-11.0); NEUTROPHILS # (AUTO) 10.7 K/uL (1.8-8.9); NEUTROPHILS % (AUTO) 74.9 % (38.5-71.5); PLATELET COUNT (AUTO) 158 K/uL (179-408); RED BLOOD CELL COUNT(AUTO) 4.94 MIL/uL (3.63-4.92); RED CELL DISTRIBUTION WIDTH 23.8 % (12.3-17.7); WHITE BLOOD COUNT (AUTO) 14.3 K/uL (3.8-11.8)
[2023-03-25 10:02] LABS: DIFFERENTIAL COMMENT 1
[2023-03-25 10:06] LABS: CALCIUM 10.5 mg/dL (8.5-10.1); CREATININE 1.5 mg/dL (0.6-1.3); POTASSIUM 3.2 mmol/L (3.5-5.1)
[2023-03-25 10:24] LABS: LACTIC ACID 2.1 mmol/L (0.4-2.0)
[2023-03-25 11:13] LABS: *BILIRUBIN,URIN NEGATIVE (NEGATIVE); *BLOOD, URINE 3+ (NEGATIVE); *CLARITY,URINE CLOUDY (CLEAR); *COLOR,URINE YELLOW (YELLOW); *KETONES,URINE NEGATIVE (NEGATIVE); *PROTEIN,URINE 3+ (NEGATIVE); *UROBILINOGEN,URINE 0.2 E.U./dl (NORMAL); LEUKOCYTE ESTERASE ,URINE 3+ (NEGATIVE); NITRITE, URINE NEGATIVE (NEGATIVE); PH,URINE 6.5 (5.0-8.0); UGLUCOSE NEGATIVE (NEGATIVE)
[2023-03-25 11:35] LABS: BACTERIA,URINE MODERATE /HPF (NONE SEEN); RBC,URINE 50-80 /HPF (0-3); SQUAMOUS EPITHELIAL CELL,UR FEW /HPF (NONE SEEN); WBC,URINE 80-100 /HPF (0-3)
[2023-03-25] MEDS: SERTRALINE HCL 25 MG TABLET GT SCH (12:11)
[2023-03-25 12:30] LABS: BILIRUBIN,DIRECT 0.1 mg/dL (0.0-0.2); BILIRUBIN,TOTAL 0.6 mg/dL (0.2-1.0)
[2023-03-25] MEDS ORDERED: IV 1/2NS 1000 ML 1,000 ML IV SCH (14:00)
[2023-03-25] MEDS ORDERED: POTASSIUM CHLORIDE 10 MEQ TAB.PRT.SR XX ONE (14:00)
[2023-03-25] MEDS: IV 1/2NS 1000 ML 1,000 ML IV SCH (15:30)
[2023-03-25] MEDS ORDERED: VANCOMYCIN IV 750 MG in IV DEXTROSE 5% 250 ML IV SCH ×2 (18:00→21:00)
[2023-03-25] MEDS: VANCOMYCIN IV 750 MG in IV NORMAL SALINE 250 ML IV SCH (18:41)
[2023-03-25] MEDS: GLUCERNA 1.2 1000ML LIQUID GT PRN (18:56)
[2023-03-25] MEDS: CEFEPIME HCL 1 G in IV DEXTROSE 5% 50 ML IV SCH (20:00)
[2023-03-25] MEDS: ESTROGENS,CONJU VAGINAL CREAM 42.5 GM TUBE VG SCH (21:24)
[2023-03-25] MEDS: MULTIVIT, IRON, MIN NO. 8, FA TABLET GT SCH (21:24)
[2023-03-25] MEDS: ASCORBIC ACID 500 MG TABLET GT SCH (21:24)
[2023-03-25] MEDS: NORMAL SALINE FLUSH 10 ML DISP.SYRIN IV SCH (21:25)
[2023-03-25] MEDS: SIMVASTATIN 10 MG TABLET GT SCH (21:27)
[2023-03-26] VITALS (17 sets, daily range): TEMP 97.2–98.5; O2SAT 96–99
[2023-03-26] MEDS: BACLOFEN 10 MG TABLET GT SCH ×4 (00:05→17:41)
[2023-03-26] MEDS: IV 1/2NS 1000 ML 1,000 ML IV SCH (01:30)
[2023-03-26] MEDS: ALBUTEROL SULFATE 2.5 MG/3 ML NEBU NEB SCH ×6 (03:35→23:15)
[2023-03-26] MEDS: IPRATROPIUM BROMIDE 0.5 MG/2.5 ML NEBU NEB SCH ×6 (03:35→23:15)
[2023-03-26] MEDS: PROTEIN SUPPLEMENT (PROSTAT) 30 ML LIQUID GT SCH ×3 (05:53→22:32)
[2023-03-26] MEDS: OMEPRAZOLE 20 MG CAPSULE.DR GT SCH (05:53)
[2023-03-26] MEDS: ARGININE/GLUTAMINE/CALCIUM BMB 1 EACH POWD.PACK GT SCH ×2 (05:53→17:41)
[2023-03-26] MEDS: OMEGA-3 FATTY ACIDS/FISH OIL CAPSULE GT SCH ×2 (05:53→17:41)
[2023-03-26] MEDS: MIDODRINE HCL 5 MG TABLET GT SCH ×3 (05:54→22:32)
[2023-03-26] MEDS: ACIDOPHILUS/BULGARICUS CHEW TAB GT SCH ×2 (08:58→20:05)
[2023-03-26] MEDS: APIXABAN 2.5 MG TABLET GT SCH ×2 (08:58→20:04)
[2023-03-26] MEDS: ACETAMINOPHEN 650 MG/20.3 ML LIQUID UDC GT SCH ×2 (08:58→20:04)
[2023-03-26] MEDS: VITAMINS A AND D 5 GM UD PKT TP SCH ×2 (08:59→20:06)
[2023-03-26] MEDS: REMEDY ESSENTIAL ZINC PASTE 113 GM TP SCH ×2 (08:59→20:06)
[2023-03-26] MEDS: SILVER SULFADIAZINE 1% CREAM 50 GM TP SCH ×4 (08:59→20:06)
[2023-03-26] MEDS: NORMAL SALINE FLUSH 10 ML DISP.SYRIN IV SCH ×2 (09:00→22:57)
[2023-03-26] MEDS: HYDROGEN PEROXIDE 3% 118 ML BOTTLE TP SCH ×2 (09:58→21:00)
[2023-03-26] MEDS: SERTRALINE HCL 25 MG TABLET GT SCH (11:54)
[2023-03-26] MEDS: VANCOMYCIN IV 750 MG in IV NORMAL SALINE 250 ML IV SCH (17:53)
[2023-03-26] MEDS: CEFEPIME HCL 1 G in IV DEXTROSE 5% 50 ML IV SCH (20:00)
[2023-03-26] MEDS: ASCORBIC ACID 500 MG TABLET GT SCH (20:06)
[2023-03-26] MEDS: ESTROGENS,CONJU VAGINAL CREAM 42.5 GM TUBE VG SCH (20:06)
[2023-03-26] MEDS: MULTIVIT, IRON, MIN NO. 8, FA TABLET GT SCH (20:06)
[2023-03-26] MEDS: SIMVASTATIN 10 MG TABLET GT SCH (20:06)
[2023-03-27] VITALS (9 sets, daily range): TEMP 98.5–98.6; O2SAT 98–99
[2023-03-27] MEDS: BACLOFEN 10 MG TABLET GT SCH ×3 (00:05→12:00)
[2023-03-27] MEDS: GLUCERNA 1.2 1000ML LIQUID GT PRN (02:20)
[2023-03-27] MEDS: ALBUTEROL SULFATE 2.5 MG/3 ML NEBU NEB SCH ×4 (02:38→15:30)
[2023-03-27] MEDS: IPRATROPIUM BROMIDE 0.5 MG/2.5 ML NEBU NEB SCH ×4 (02:38→15:30)
[2023-03-27] MEDS: OMEGA-3 FATTY ACIDS/FISH OIL CAPSULE GT SCH (05:07)
[2023-03-27] MEDS: ARGININE/GLUTAMINE/CALCIUM BMB 1 EACH POWD.PACK GT SCH (05:07)
[2023-03-27] MEDS: MIDODRINE HCL 5 MG TABLET GT SCH ×2 (05:07→13:45)
[2023-03-27] MEDS: PROTEIN SUPPLEMENT (PROSTAT) 30 ML LIQUID GT SCH ×2 (05:07→13:45)
[2023-03-27] MEDS: OMEPRAZOLE 20 MG CAPSULE.DR GT SCH (05:07)
[2023-03-27 05:54] LABS: BASOPHILS # (AUTO) 0.1 K/UL (0.0-0.2); BASOPHILS % (AUTO) 0.7 % (0.0-2.0); EOSINOPHILS # (AUTO) 0.4 K/uL (0.0-0.7); EOSINOPHILS % (AUTO) 5.3 % (0.0-7.0); HEMOGLOBIN 10.4 g/dL (10.9-14.3); LYMPHOCYTES # (AUTO) 1.3 K/uL (0.8-4.8); LYMPHOCYTES % (AUTO) 16.8 % (20.5-51.5); MEAN CORPUSCULAR HEMOGLOBIN 24.5 uug (24.7-32.8); MEAN CORPUSCULAR HGB CONC 30 g/dL (32.3-35.6); MEAN CORPUSCULAR VOLUME 82.5 fL (75.5-95.3); MONOCYTES # (AUTO) 0.6 K/uL (0.1-1.30); MONOCYTES % (AUTO) 7.8 % (0.0-11.0); NEUTROPHILS # (AUTO) 5.4 K/uL (1.8-8.9); NEUTROPHILS % (AUTO) 69.4 % (38.5-71.5); PLATELET COUNT (AUTO) 133 K/uL (179-408); RED BLOOD CELL COUNT(AUTO) 4.24 MIL/uL (3.63-4.92); RED CELL DISTRIBUTION WIDTH 23.5 % (12.3-17.7); WHITE BLOOD COUNT (AUTO) 7.8 K/uL (3.8-11.8)
[2023-03-27 06:12] LABS: CALCIUM 9.3 mg/dL (8.5-10.1); CREATININE 1.1 mg/dL (0.6-1.3); POTASSIUM 3.3 mmol/L (3.5-5.1)
[2023-03-27 06:47] LABS: DIFFERENTIAL COMMENT 1
[2023-03-27] MEDS: ACETAMINOPHEN 650 MG/20.3 ML LIQUID UDC GT SCH (08:30)
[2023-03-27] MEDS: HYDROGEN PEROXIDE 3% 118 ML BOTTLE TP SCH (08:53)
[2023-03-27] MEDS: SILVER SULFADIAZINE 1% CREAM 50 GM TP SCH ×2 (09:00)
[2023-03-27] MEDS: REMEDY ESSENTIAL ZINC PASTE 113 GM TP SCH (09:00)
[2023-03-27] MEDS: APIXABAN 2.5 MG TABLET GT SCH (09:00)
[2023-03-27] MEDS: NORMAL SALINE FLUSH 10 ML DISP.SYRIN IV SCH (09:00)
[2023-03-27] MEDS: VITAMINS A AND D 5 GM UD PKT TP SCH (09:00)
[2023-03-27] MEDS: ACIDOPHILUS/BULGARICUS CHEW TAB GT SCH (09:00)
[2023-03-27] MEDS ORDERED: POTASSIUM CHLORIDE 10 MEQ TAB.PRT.SR XX ONE (12:39)
[2023-03-27] MEDS: SERTRALINE HCL 25 MG TABLET GT SCH (12:40)
[2023-03-27] MEDS ORDERED: LOPE2CAP GT (14:39)
[2023-03-27] MEDS ORDERED: APIX2.5T PO (14:39)
[2023-03-27] MEDS ORDERED: CEFE1VIA3 IJ (14:39)
[2023-03-27] MEDS ORDERED: NUT.237L30 GT (14:39)
[2023-03-27] MEDS ORDERED: FOSF3PAC GT (14:39)
[2023-03-27] MEDS ORDERED: VITA113O5 TP (14:39)
[2023-03-27 18:41] LABS: CREATININE 0.9 mg/dL (0.6-1.3)
[2023-03-27 18:45] LABS: VANCOMYCIN,TROUGH 25.9 ug/mL (10.0-20.0)
[2023-03-30] MEDS: SILVER SULFADIAZINE 1% CREAM 50 GM TP SCH (21:00)
[2023-03-31] MEDS: SILVER SULFADIAZINE 1% CREAM 50 GM TP SCH (09:00)
[2023-04-02] MEDS ORDERED: MIDO5TAB4 GT (17:39)
[2023-04-02] MEDS ORDERED: HYDR-3980 GT (17:39)
[2023-04-02] MEDS ORDERED: MERO1VIA23 IV (17:39)
[2023-04-02] MEDS ORDERED: ACET325T53 GT (17:39)
[2023-04-02] MEDS ORDERED: LEVE100S GT (17:39)
[2023-04-02] MEDS ORDERED: ACID1TAB4 GT (17:39)
[2023-04-03] VITALS (7 sets, daily range): TEMP 98.8; O2SAT 98–99
[2023-04-03] MEDS: ALBUTEROL SULFATE 2.5 MG/3 ML NEBU NEB SCH ×3 (15:36→23:30)
[2023-04-03] MEDS: IPRATROPIUM BROMIDE 0.5 MG/2.5 ML NEBU NEB SCH ×3 (15:36→23:30)
[2023-04-03] MEDS ORDERED: POLYVINYL ALCOHOL OPHT DROPS 15 ML BOTTLE EACHEYE PRN (17:15)
[2023-04-03] MEDS ORDERED: ACETAMINOPHEN 650 MG/20 ML UDC- SA PATIENTS-FEVER ONLY GT PRN (17:30)
[2023-04-03] MEDS: ARGININE/GLUTAMINE/CALCIUM BMB 1 EACH POWD.PACK GT SCH (18:29)
[2023-04-03] MEDS: BACLOFEN 10 MG TABLET GT SCH (18:29)
[2023-04-03] MEDS: OMEGA-3 FATTY ACIDS/FISH OIL CAPSULE GT SCH (18:29)
[2023-04-03] MEDS: ACETAMINOPHEN 650 MG/20.3 ML LIQUID UDC GT SCH (20:58)
[2023-04-03] MEDS: levETIRAcetam 500 MG/5 ML LIQUID UDC GT SCH (20:59)
[2023-04-03] MEDS: APIXABAN 2.5 MG TABLET GT SCH (20:59)
[2023-04-03] MEDS: ACIDOPHILUS/BULGARICUS CHEW TAB GT SCH (20:59)
[2023-04-03] MEDS: NORMAL SALINE FLUSH 10 ML DISP.SYRIN IV SCH (20:59)
[2023-04-03] MEDS: ASCORBIC ACID 500 MG TABLET GT SCH (20:59)
[2023-04-03] MEDS: MULTIVIT, IRON, MIN NO. 8, FA TABLET GT SCH (20:59)
[2023-04-03] MEDS: MEDIHONEY= THERAHONEY 1.5 OZ TUBE TOP SCH ×2 (21:00)
[2023-04-03] MEDS ORDERED: SIMVASTATIN 10 MG TABLET GT SCH (21:00)
[2023-04-03] MEDS: VITAMINS A AND D 5 GM UD PKT TP SCH (21:00)
[2023-04-03] MEDS: HYDROGEN PEROXIDE 3% 118 ML BOTTLE TP SCH (21:00)
[2023-04-03] MEDS: REMEDY ESSENTIAL ZINC PASTE 113 GM TP SCH (21:00)
[2023-04-03] MEDS: ESTROGENS,CONJU VAGINAL CREAM 42.5 GM TUBE VG SCH (21:00)
[2023-04-03] MEDS: MIDODRINE HCL 5 MG TABLET GT SCH (21:02)
[2023-04-03] MEDS: PROTEIN SUPPLEMENT (PROSTAT) 30 ML LIQUID GT SCH (21:03)
[2023-04-03] MEDS: SILVER SULFADIAZINE 1% CREAM 50 GM TP SCH (21:47)
[2023-04-03] MEDS: MEROPENEM 1 G in IV NORMAL SALINE 100 ML IV SCH (21:48)
[2023-04-04] VITALS (14 sets, daily range): TEMP 98.4–99.6; O2SAT 98–99
[2023-04-04] MEDS: IPRATROPIUM BROMIDE 0.5 MG/2.5 ML NEBU NEB SCH ×6 (03:09→23:20)
[2023-04-04] MEDS: ALBUTEROL SULFATE 2.5 MG/3 ML NEBU NEB SCH ×6 (03:09→23:20)
[2023-04-04] MEDS: OMEPRAZOLE 20 MG CAPSULE.DR GT SCH (05:16)
[2023-04-04] MEDS: BACLOFEN 10 MG TABLET GT SCH ×5 (05:16→23:50)
[2023-04-04] MEDS: OMEGA-3 FATTY ACIDS/FISH OIL CAPSULE GT SCH ×2 (05:16→17:25)
[2023-04-04] MEDS: MIDODRINE HCL 5 MG TABLET GT SCH ×3 (05:16→22:00)
[2023-04-04] MEDS: ARGININE/GLUTAMINE/CALCIUM BMB 1 EACH POWD.PACK GT SCH ×2 (05:16→17:25)
[2023-04-04] MEDS: PROTEIN SUPPLEMENT (PROSTAT) 30 ML LIQUID GT SCH ×3 (05:19→22:06)
[2023-04-04] MEDS: MEROPENEM 1 G in IV NORMAL SALINE 100 ML IV SCH ×3 (05:20→22:10)
[2023-04-04] MEDS: HYDROGEN PEROXIDE 3% 118 ML BOTTLE TP SCH ×2 (07:47→19:50)
[2023-04-04] MEDS: ACETAMINOPHEN 650 MG/20.3 ML LIQUID UDC GT SCH ×2 (08:58→21:06)
[2023-04-04] MEDS: NORMAL SALINE FLUSH 10 ML DISP.SYRIN IV SCH ×2 (09:00→21:00)
[2023-04-04] MEDS: ACIDOPHILUS/BULGARICUS CHEW TAB GT SCH ×2 (09:01→21:08)
[2023-04-04] MEDS: levETIRAcetam 500 MG/5 ML LIQUID UDC GT SCH ×2 (09:05→21:11)
[2023-04-04] MEDS: APIXABAN 2.5 MG TABLET GT SCH ×2 (09:05→21:17)
[2023-04-04] MEDS: MEDIHONEY= THERAHONEY 1.5 OZ TUBE TOP SCH ×4 (09:08→21:12)
[2023-04-04] MEDS: VITAMINS A AND D 5 GM UD PKT TP SCH ×2 (09:09→21:12)
[2023-04-04] MEDS: REMEDY ESSENTIAL ZINC PASTE 113 GM TP SCH ×2 (09:09→21:12)
[2023-04-04] MEDS ORDERED: HYDROGEN PEROXIDE 3% 118 ML BOTTLE TP PRN (10:15)
[2023-04-04] MEDS: SERTRALINE HCL 25 MG TABLET GT SCH (12:09)
[2023-04-04] MEDS: GLUCERNA 1.2 1000ML LIQUID GT PRN (16:29)
[2023-04-04] MEDS ORDERED: FOSFOMYCIN TROMETHAMINE 3 GM PACKET GT SCH (21:00)
[2023-04-04] MEDS: MULTIVIT, IRON, MIN NO. 8, FA TABLET GT SCH (21:11)
[2023-04-04] MEDS: ESTROGENS,CONJU VAGINAL CREAM 42.5 GM TUBE VG SCH (21:12)
[2023-04-04] MEDS: ASCORBIC ACID 500 MG TABLET GT SCH (21:12)
[2023-04-05] VITALS (14 sets, daily range): TEMP 98.2–98.5; O2SAT 98–99
[2023-04-05] MEDS: IPRATROPIUM BROMIDE 0.5 MG/2.5 ML NEBU NEB SCH ×6 (03:37→23:11)
[2023-04-05] MEDS: ALBUTEROL SULFATE 2.5 MG/3 ML NEBU NEB SCH ×6 (03:38→23:11)
[2023-04-05] MEDS: MEROPENEM 1 G in IV NORMAL SALINE 100 ML IV SCH ×2 (05:28→14:00)
[2023-04-05] MEDS: BACLOFEN 10 MG TABLET GT SCH ×3 (06:00→17:45)
[2023-04-05] MEDS: ARGININE/GLUTAMINE/CALCIUM BMB 1 EACH POWD.PACK GT SCH ×2 (06:00→17:45)
[2023-04-05] MEDS: OMEPRAZOLE 20 MG CAPSULE.DR GT SCH (06:00)
[2023-04-05] MEDS: MIDODRINE HCL 5 MG TABLET GT SCH ×3 (06:00→21:42)
[2023-04-05] MEDS: OMEGA-3 FATTY ACIDS/FISH OIL CAPSULE GT SCH ×2 (06:00→17:45)
[2023-04-05] MEDS: PROTEIN SUPPLEMENT (PROSTAT) 30 ML LIQUID GT SCH ×3 (06:00→21:42)
[2023-04-05] MEDS: HYDROGEN PEROXIDE 3% 118 ML BOTTLE TP SCH ×2 (07:24→19:18)
[2023-04-05] MEDS: ACETAMINOPHEN 650 MG/20.3 ML LIQUID UDC GT SCH ×2 (08:47→20:40)
[2023-04-05] MEDS: ACIDOPHILUS/BULGARICUS CHEW TAB GT SCH ×2 (08:48→21:40)
[2023-04-05] MEDS: APIXABAN 2.5 MG TABLET GT SCH ×2 (08:51→21:40)
[2023-04-05] MEDS: MEDIHONEY= THERAHONEY 1.5 OZ TUBE TOP SCH ×4 (08:54→21:42)
[2023-04-05] MEDS: VITAMINS A AND D 5 GM UD PKT TP SCH ×2 (08:56→21:42)
[2023-04-05] MEDS: REMEDY ESSENTIAL ZINC PASTE 113 GM TP SCH ×2 (08:56→21:42)
[2023-04-05] MEDS: NORMAL SALINE FLUSH 10 ML DISP.SYRIN IV SCH ×2 (09:00→21:00)
[2023-04-05] MEDS: levETIRAcetam 500 MG/5 ML LIQUID UDC GT SCH ×2 (09:00→21:41)
[2023-04-05] MEDS: SERTRALINE HCL 25 MG TABLET GT SCH (12:32)
[2023-04-05] MEDS: MULTIVIT, IRON, MIN NO. 8, FA TABLET GT SCH (21:41)
[2023-04-05] MEDS: ASCORBIC ACID 500 MG TABLET GT SCH (21:41)
[2023-04-05] MEDS: ESTROGENS,CONJU VAGINAL CREAM 42.5 GM TUBE VG SCH (21:42)
[2023-04-06] VITALS (13 sets, daily range): TEMP 97.3; O2SAT 98–99
[2023-04-06] MEDS: BACLOFEN 10 MG TABLET GT SCH ×5 (00:08→23:10)
[2023-04-06] MEDS: GLUCERNA 1.2 1000ML LIQUID GT PRN (02:00)
[2023-04-06] MEDS: IPRATROPIUM BROMIDE 0.5 MG/2.5 ML NEBU NEB SCH ×6 (03:16→23:01)
[2023-04-06] MEDS: ALBUTEROL SULFATE 2.5 MG/3 ML NEBU NEB SCH ×6 (03:16→23:01)
[2023-04-06] MEDS: MIDODRINE HCL 5 MG TABLET GT SCH ×4 (06:00→21:48)
[2023-04-06] MEDS: ARGININE/GLUTAMINE/CALCIUM BMB 1 EACH POWD.PACK GT SCH ×2 (06:10→17:53)
[2023-04-06] MEDS: OMEGA-3 FATTY ACIDS/FISH OIL CAPSULE GT SCH ×2 (06:10→17:53)
[2023-04-06] MEDS: OMEPRAZOLE 20 MG CAPSULE.DR GT SCH (06:10)
[2023-04-06] MEDS: PROTEIN SUPPLEMENT (PROSTAT) 30 ML LIQUID GT SCH ×3 (06:11→21:49)
[2023-04-06] MEDS: ACETAMINOPHEN 650 MG/20.3 ML LIQUID UDC GT SCH ×2 (08:54→20:30)
[2023-04-06] MEDS: ACIDOPHILUS/BULGARICUS CHEW TAB GT SCH ×2 (08:55→21:44)
[2023-04-06] MEDS: levETIRAcetam 500 MG/5 ML LIQUID UDC GT SCH ×2 (08:56→21:44)
[2023-04-06] MEDS: NITROFURANTOIN MACROCRYSTAL 100 MG CAPSULE GT SCH (08:57)
[2023-04-06] MEDS: MEDIHONEY= THERAHONEY 1.5 OZ TUBE TOP SCH ×4 (08:59→21:48)
[2023-04-06] MEDS: HYDROGEN PEROXIDE 3% 118 ML BOTTLE TP SCH ×2 (09:00→21:58)
[2023-04-06] MEDS ORDERED: NITROFURANTOIN MACROCRYSTAL 100 MG CAPSULE GT SCH (09:00)
[2023-04-06] MEDS: REMEDY ESSENTIAL ZINC PASTE 113 GM TP SCH ×2 (09:00→21:48)
[2023-04-06] MEDS: VITAMINS A AND D 5 GM UD PKT TP SCH ×2 (09:00→21:48)
[2023-04-06] MEDS: APIXABAN 2.5 MG TABLET GT SCH ×2 (09:01→21:44)
[2023-04-06] MEDS: SERTRALINE HCL 25 MG TABLET GT SCH (12:43)
[2023-04-06] MEDS ORDERED: LOPERAMIDE HCL 1 MG/7.5 ML LIQUID GT PRN (18:39)
[2023-04-06] MEDS: ASCORBIC ACID 500 MG TABLET GT SCH (21:47)
[2023-04-06] MEDS: FOSFOMYCIN TROMETHAMINE 3 GM PACKET GT SCH (21:47)
[2023-04-06] MEDS: MULTIVIT, IRON, MIN NO. 8, FA TABLET GT SCH (21:47)
[2023-04-06] MEDS: ESTROGENS,CONJU VAGINAL CREAM 42.5 GM TUBE VG SCH (21:48)
[2023-04-07] VITALS (14 sets, daily range): TEMP 97.7–98.7; O2SAT 96–99
[2023-04-07] MEDS: ALBUTEROL SULFATE 2.5 MG/3 ML NEBU NEB SCH ×6 (03:02→23:24)
[2023-04-07] MEDS: IPRATROPIUM BROMIDE 0.5 MG/2.5 ML NEBU NEB SCH ×6 (03:02→23:24)
[2023-04-07] MEDS: OMEPRAZOLE 20 MG CAPSULE.DR GT SCH (05:59)
[2023-04-07] MEDS: ARGININE/GLUTAMINE/CALCIUM BMB 1 EACH POWD.PACK GT SCH ×2 (05:59→17:21)
[2023-04-07] MEDS: OMEGA-3 FATTY ACIDS/FISH OIL CAPSULE GT SCH ×2 (05:59→17:21)
[2023-04-07] MEDS: BACLOFEN 10 MG TABLET GT SCH ×4 (05:59→22:05)
[2023-04-07] MEDS: MIDODRINE HCL 5 MG TABLET GT SCH ×3 (06:01→22:34)
[2023-04-07] MEDS: PROTEIN SUPPLEMENT (PROSTAT) 30 ML LIQUID GT SCH ×3 (06:01→22:34)
[2023-04-07] MEDS: HYDROGEN PEROXIDE 3% 118 ML BOTTLE TP SCH ×2 (07:45→21:00)
[2023-04-07] MEDS: ACETAMINOPHEN 650 MG/20.3 ML LIQUID UDC GT SCH ×2 (08:58→19:34)
[2023-04-07] MEDS: levETIRAcetam 500 MG/5 ML LIQUID UDC GT SCH ×2 (08:59→21:00)
[2023-04-07] MEDS: ACIDOPHILUS/BULGARICUS CHEW TAB GT SCH ×2 (08:59→21:00)
[2023-04-07] MEDS: NITROFURANTOIN MACROCRYSTAL 100 MG CAPSULE GT SCH (09:00)
[2023-04-07] MEDS: REMEDY ESSENTIAL ZINC PASTE 113 GM TP SCH ×2 (09:01→21:00)
[2023-04-07] MEDS: MEDIHONEY= THERAHONEY 1.5 OZ TUBE TOP SCH ×4 (09:01→21:00)
[2023-04-07] MEDS: VITAMINS A AND D 5 GM UD PKT TP SCH ×2 (09:01→21:00)
[2023-04-07] MEDS: APIXABAN 2.5 MG TABLET GT SCH ×2 (09:02→21:00)
[2023-04-07] MEDS: SERTRALINE HCL 25 MG TABLET GT SCH (11:49)
[2023-04-07] MEDS: GLUCERNA 1.2 1000ML LIQUID GT PRN (11:49)
[2023-04-07] MEDS: MULTIVIT, IRON, MIN NO. 8, FA TABLET GT SCH (21:00)
[2023-04-07] MEDS: ESTROGENS,CONJU VAGINAL CREAM 42.5 GM TUBE VG SCH (21:00)
[2023-04-07] MEDS: ASCORBIC ACID 500 MG TABLET GT SCH (21:00)
[2023-04-08] VITALS (15 sets, daily range): BP systolic 97–115; BP diastolic 63–64; TEMP 96.5–98.1; O2SAT 97–99
[2023-04-08] MEDS: ALBUTEROL SULFATE 2.5 MG/3 ML NEBU NEB SCH ×6 (03:58→23:45)
[2023-04-08] MEDS: IPRATROPIUM BROMIDE 0.5 MG/2.5 ML NEBU NEB SCH ×6 (03:58→23:45)
[2023-04-08] MEDS: MIDODRINE HCL 5 MG TABLET GT SCH ×3 (05:33→21:22)
[2023-04-08] MEDS: OMEPRAZOLE 20 MG CAPSULE.DR GT SCH (05:33)
[2023-04-08] MEDS: PROTEIN SUPPLEMENT (PROSTAT) 30 ML LIQUID GT SCH ×3 (05:33→21:24)
[2023-04-08] MEDS: BACLOFEN 10 MG TABLET GT SCH ×3 (05:33→18:00)
[2023-04-08] MEDS: OMEGA-3 FATTY ACIDS/FISH OIL CAPSULE GT SCH ×2 (05:33→18:00)
[2023-04-08] MEDS: ARGININE/GLUTAMINE/CALCIUM BMB 1 EACH POWD.PACK GT SCH ×2 (05:33→18:00)
[2023-04-08] MEDS: HYDROGEN PEROXIDE 3% 118 ML BOTTLE TP SCH ×2 (07:50→21:20)
[2023-04-08] MEDS: ACETAMINOPHEN 650 MG/20.3 ML LIQUID UDC GT SCH ×2 (09:16→21:13)
[2023-04-08] MEDS: ACIDOPHILUS/BULGARICUS CHEW TAB GT SCH ×2 (09:17→21:13)
[2023-04-08] MEDS: levETIRAcetam 500 MG/5 ML LIQUID UDC GT SCH ×2 (09:18→21:21)
[2023-04-08] MEDS: NITROFURANTOIN MACROCRYSTAL 100 MG CAPSULE GT SCH (09:19)
[2023-04-08] MEDS: REMEDY ESSENTIAL ZINC PASTE 113 GM TP SCH ×2 (09:20→21:19)
[2023-04-08] MEDS: VITAMINS A AND D 5 GM UD PKT TP SCH ×2 (09:20→21:19)
[2023-04-08] MEDS: MEDIHONEY= THERAHONEY 1.5 OZ TUBE TOP SCH ×4 (09:20→21:21)
[2023-04-08] MEDS: APIXABAN 2.5 MG TABLET GT SCH ×2 (09:21→21:00)
[2023-04-08] MEDS: SERTRALINE HCL 25 MG TABLET GT SCH (12:01)
[2023-04-08] MEDS: ESTROGENS,CONJU VAGINAL CREAM 42.5 GM TUBE VG SCH (21:19)
[2023-04-08] MEDS: ASCORBIC ACID 500 MG TABLET GT SCH (21:21)
[2023-04-08] MEDS: MULTIVIT, IRON, MIN NO. 8, FA TABLET GT SCH (21:21)
[2023-04-09] VITALS (14 sets, daily range): TEMP 98.2–98.9; O2SAT 97–99
[2023-04-09] MEDS: BACLOFEN 10 MG TABLET GT SCH ×4 (00:30→17:25)
[2023-04-09] MEDS: GLUCERNA 1.2 1000ML LIQUID GT PRN (01:19)
[2023-04-09] MEDS: IPRATROPIUM BROMIDE 0.5 MG/2.5 ML NEBU NEB SCH ×6 (05:07→23:54)
[2023-04-09] MEDS: ALBUTEROL SULFATE 2.5 MG/3 ML NEBU NEB SCH ×6 (05:07→23:54)
[2023-04-09] MEDS: OMEPRAZOLE 20 MG CAPSULE.DR GT SCH (05:53)
[2023-04-09] MEDS: OMEGA-3 FATTY ACIDS/FISH OIL CAPSULE GT SCH ×2 (05:53→17:25)
[2023-04-09] MEDS: ARGININE/GLUTAMINE/CALCIUM BMB 1 EACH POWD.PACK GT SCH ×2 (05:53→17:25)
[2023-04-09] MEDS: PROTEIN SUPPLEMENT (PROSTAT) 30 ML LIQUID GT SCH ×3 (05:54→22:20)
[2023-04-09] MEDS: MIDODRINE HCL 5 MG TABLET GT SCH ×3 (05:54→22:00)
[2023-04-09] MEDS: HYDROGEN PEROXIDE 3% 118 ML BOTTLE TP SCH ×2 (08:59→20:44)
[2023-04-09] MEDS: APIXABAN 2.5 MG TABLET GT SCH (09:00)
[2023-04-09] MEDS: ACETAMINOPHEN 650 MG/20.3 ML LIQUID UDC GT SCH ×2 (09:26→20:30)
[2023-04-09] MEDS: ACIDOPHILUS/BULGARICUS CHEW TAB GT SCH ×2 (09:30→21:00)
[2023-04-09] MEDS: levETIRAcetam 500 MG/5 ML LIQUID UDC GT SCH ×2 (09:31→21:00)
[2023-04-09] MEDS: MEDIHONEY= THERAHONEY 1.5 OZ TUBE TOP SCH ×4 (09:32→21:00)
[2023-04-09] MEDS: NITROFURANTOIN MACROCRYSTAL 100 MG CAPSULE GT SCH (09:32)
[2023-04-09] MEDS: REMEDY ESSENTIAL ZINC PASTE 113 GM TP SCH ×2 (09:32→21:00)
[2023-04-09] MEDS: VITAMINS A AND D 5 GM UD PKT TP SCH ×2 (09:32→21:00)
[2023-04-09] MEDS: SERTRALINE HCL 25 MG TABLET GT SCH (12:05)
[2023-04-09] MEDS: ASCORBIC ACID 500 MG TABLET GT SCH (21:00)
[2023-04-09] MEDS: MULTIVIT, IRON, MIN NO. 8, FA TABLET GT SCH (21:00)
[2023-04-09] MEDS: ESTROGENS,CONJU VAGINAL CREAM 42.5 GM TUBE VG SCH (21:00)
[2023-04-10] VITALS (14 sets, daily range): TEMP 97.6–98.1; O2SAT 96–98
[2023-04-10] MEDS: BACLOFEN 10 MG TABLET GT SCH ×4 (00:24→18:12)
[2023-04-10] MEDS: ALBUTEROL SULFATE 2.5 MG/3 ML NEBU NEB SCH ×6 (04:17→23:17)
[2023-04-10] MEDS: IPRATROPIUM BROMIDE 0.5 MG/2.5 ML NEBU NEB SCH ×6 (04:17→23:17)
[2023-04-10] MEDS: OMEPRAZOLE 20 MG CAPSULE.DR GT SCH (05:04)
[2023-04-10] MEDS: ARGININE/GLUTAMINE/CALCIUM BMB 1 EACH POWD.PACK GT SCH ×2 (05:04→18:12)
[2023-04-10] MEDS: OMEGA-3 FATTY ACIDS/FISH OIL CAPSULE GT SCH ×2 (05:04→18:12)
[2023-04-10] MEDS: PROTEIN SUPPLEMENT (PROSTAT) 30 ML LIQUID GT SCH ×3 (05:05→21:22)
[2023-04-10] MEDS: MIDODRINE HCL 5 MG TABLET GT SCH ×3 (06:00→21:21)
[2023-04-10] MEDS: GLUCERNA 1.2 1000ML LIQUID GT PRN (06:48)
[2023-04-10 07:19] LABS: BASOPHILS # (AUTO) 0.1 K/UL (0.0-0.2); BASOPHILS % (AUTO) 0.6 % (0.0-2.0); EOSINOPHILS # (AUTO) 0.3 K/uL (0.0-0.7); EOSINOPHILS % (AUTO) 3.7 % (0.0-7.0); HEMATOCRIT 31.7 % (31.2-41.9); LYMPHOCYTES # (AUTO) 1.9 K/uL (0.8-4.8); LYMPHOCYTES % (AUTO) 20.2 % (20.5-51.5); MEAN CORPUSCULAR HEMOGLOBIN 25.3 uug (24.7-32.8); MEAN CORPUSCULAR HGB CONC 32 g/dL (32.3-35.6); MEAN CORPUSCULAR VOLUME 80.1 fL (75.5-95.3); MONOCYTES # (AUTO) 0.8 K/uL (0.1-1.30); MONOCYTES % (AUTO) 8.4 % (0.0-11.0); NEUTROPHILS # (AUTO) 6.2 K/uL (1.8-8.9); NEUTROPHILS % (AUTO) 67.1 % (38.5-71.5); PLATELET COUNT (AUTO) 211 K/uL (179-408); RED BLOOD CELL COUNT(AUTO) 3.95 MIL/uL (3.63-4.92); RED CELL DISTRIBUTION WIDTH 23.2 % (12.3-17.7); WHITE BLOOD COUNT (AUTO) 9.3 K/uL (3.8-11.8)
[2023-04-10 07:25] LABS: DIFFERENTIAL COMMENT 1
[2023-04-10 07:32] LABS: CALCIUM 9.9 mg/dL (8.5-10.1); CREATININE 0.8 mg/dL (0.6-1.3); MAGNESIUM 2.3 mg/dL (1.8-2.4); PHOSPHOROUS 5.5 mg/dL (2.5-4.9); POTASSIUM 3.5 mmol/L (3.5-5.1)
[2023-04-10] MEDS: ACETAMINOPHEN 650 MG/20.3 ML LIQUID UDC GT SCH ×2 (08:30→20:30)
[2023-04-10] MEDS: HYDROGEN PEROXIDE 3% 118 ML BOTTLE TP SCH ×2 (09:16→20:31)
[2023-04-10] MEDS: NITROFURANTOIN MACROCRYSTAL 100 MG CAPSULE GT SCH (09:35)
[2023-04-10] MEDS: ACIDOPHILUS/BULGARICUS CHEW TAB GT SCH ×2 (09:35→20:30)
[2023-04-10] MEDS: MEDIHONEY= THERAHONEY 1.5 OZ TUBE TOP SCH ×4 (09:36→20:31)
[2023-04-10] MEDS: REMEDY ESSENTIAL ZINC PASTE 113 GM TP SCH ×2 (09:36→20:31)
[2023-04-10] MEDS: VITAMINS A AND D 5 GM UD PKT TP SCH ×2 (09:36→20:31)
[2023-04-10] MEDS: levETIRAcetam 500 MG/5 ML LIQUID UDC GT SCH ×2 (09:37→20:31)
[2023-04-10] MEDS: SERTRALINE HCL 25 MG TABLET GT SCH (12:27)
[2023-04-10] MEDS: ESTROGENS,CONJU VAGINAL CREAM 42.5 GM TUBE VG SCH (20:31)
[2023-04-10] MEDS: ASCORBIC ACID 500 MG TABLET GT SCH (20:31)
[2023-04-10] MEDS: MULTIVIT, IRON, MIN NO. 8, FA TABLET GT SCH (20:31)
[2023-04-11] VITALS (15 sets, daily range): TEMP 97.5–97.8; O2SAT 96–99
[2023-04-11] MEDS: BACLOFEN 10 MG TABLET GT SCH ×4 (00:04→17:12)
[2023-04-11] MEDS: IPRATROPIUM BROMIDE 0.5 MG/2.5 ML NEBU NEB SCH ×6 (03:18→23:30)
[2023-04-11] MEDS: ALBUTEROL SULFATE 2.5 MG/3 ML NEBU NEB SCH ×6 (03:18→23:30)
[2023-04-11] MEDS: ARGININE/GLUTAMINE/CALCIUM BMB 1 EACH POWD.PACK GT SCH ×2 (05:22→17:12)
[2023-04-11] MEDS: OMEGA-3 FATTY ACIDS/FISH OIL CAPSULE GT SCH ×2 (05:22→17:12)
[2023-04-11] MEDS: MIDODRINE HCL 5 MG TABLET GT SCH ×3 (05:23→21:23)
[2023-04-11] MEDS: PROTEIN SUPPLEMENT (PROSTAT) 30 ML LIQUID GT SCH ×3 (05:23→21:23)
[2023-04-11] MEDS: OMEPRAZOLE 20 MG CAPSULE.DR GT SCH (05:23)
[2023-04-11] MEDS: HYDROGEN PEROXIDE 3% 118 ML BOTTLE TP SCH ×2 (08:44→19:20)
[2023-04-11] MEDS: ACETAMINOPHEN 650 MG/20.3 ML LIQUID UDC GT SCH ×2 (09:28→20:30)
[2023-04-11] MEDS: ACIDOPHILUS/BULGARICUS CHEW TAB GT SCH ×2 (09:29→21:22)
[2023-04-11] MEDS: levETIRAcetam 500 MG/5 ML LIQUID UDC GT SCH ×2 (09:31→21:22)
[2023-04-11] MEDS: NITROFURANTOIN MACROCRYSTAL 100 MG CAPSULE GT SCH (09:32)
[2023-04-11] MEDS: MEDIHONEY= THERAHONEY 1.5 OZ TUBE TOP SCH ×4 (09:32→21:23)
[2023-04-11] MEDS: REMEDY ESSENTIAL ZINC PASTE 113 GM TP SCH ×2 (09:33→21:23)
[2023-04-11] MEDS: VITAMINS A AND D 5 GM UD PKT TP SCH ×2 (09:33→21:23)
[2023-04-11] MEDS: SERTRALINE HCL 25 MG TABLET GT SCH (12:33)
[2023-04-11] MEDS: GLUCERNA 1.2 1000ML LIQUID GT PRN (12:39)
[2023-04-11] MEDS: ASCORBIC ACID 500 MG TABLET GT SCH (21:22)
[2023-04-11] MEDS: FOSFOMYCIN TROMETHAMINE 3 GM PACKET GT SCH (21:22)
[2023-04-11] MEDS: MULTIVIT, IRON, MIN NO. 8, FA TABLET GT SCH (21:22)
[2023-04-11] MEDS: ESTROGENS,CONJU VAGINAL CREAM 42.5 GM TUBE VG SCH (21:23)
[2023-04-11] MEDS: TEMAZEPAM 7.5 MG CAPSULE GT PRN (22:10)
[2023-04-12] VITALS (16 sets, daily range): TEMP 97.7–98.6; O2SAT 96–99
[2023-04-12] MEDS: BACLOFEN 10 MG TABLET GT SCH ×5 (00:39→23:13)
[2023-04-12] MEDS: IPRATROPIUM BROMIDE 0.5 MG/2.5 ML NEBU NEB SCH ×6 (03:28→23:26)
[2023-04-12] MEDS: ALBUTEROL SULFATE 2.5 MG/3 ML NEBU NEB SCH ×6 (03:28→23:26)
[2023-04-12] MEDS: OMEGA-3 FATTY ACIDS/FISH OIL CAPSULE GT SCH ×2 (06:05→18:00)
[2023-04-12] MEDS: ARGININE/GLUTAMINE/CALCIUM BMB 1 EACH POWD.PACK GT SCH ×2 (06:05→18:00)
[2023-04-12] MEDS: OMEPRAZOLE 20 MG CAPSULE.DR GT SCH (06:05)
[2023-04-12] MEDS: MIDODRINE HCL 5 MG TABLET GT SCH ×3 (06:06→22:00)
[2023-04-12] MEDS: PROTEIN SUPPLEMENT (PROSTAT) 30 ML LIQUID GT SCH ×3 (06:06→22:00)
[2023-04-12] MEDS: ACETAMINOPHEN 650 MG/20.3 ML LIQUID UDC GT SCH ×2 (08:30→20:51)
[2023-04-12] MEDS: HYDROGEN PEROXIDE 3% 118 ML BOTTLE TP SCH ×2 (09:00→22:39)
[2023-04-12] MEDS: ACIDOPHILUS/BULGARICUS CHEW TAB GT SCH ×2 (09:48→20:51)
[2023-04-12] MEDS: levETIRAcetam 500 MG/5 ML LIQUID UDC GT SCH ×2 (09:49→20:51)
[2023-04-12] MEDS: NITROFURANTOIN MACROCRYSTAL 100 MG CAPSULE GT SCH (09:49)
[2023-04-12] MEDS: MEDIHONEY= THERAHONEY 1.5 OZ TUBE TOP SCH ×4 (09:49→20:53)
[2023-04-12] MEDS: VITAMINS A AND D 5 GM UD PKT TP SCH ×2 (09:50→20:54)
[2023-04-12] MEDS: REMEDY ESSENTIAL ZINC PASTE 113 GM TP SCH ×2 (09:50→20:54)
[2023-04-12] MEDS: SERTRALINE HCL 25 MG TABLET GT SCH (12:00)
[2023-04-12] MEDS: GLUCERNA 1.2 1000ML LIQUID GT PRN (15:55)
[2023-04-12] MEDS: MULTIVIT, IRON, MIN NO. 8, FA TABLET GT SCH (20:52)
[2023-04-12] MEDS: ASCORBIC ACID 500 MG TABLET GT SCH (20:53)
[2023-04-12] MEDS: ESTROGENS,CONJU VAGINAL CREAM 42.5 GM TUBE VG SCH (20:54)
[2023-04-12] MEDS: TEMAZEPAM 7.5 MG CAPSULE GT PRN (20:58)
[2023-04-13] VITALS (14 sets, daily range): TEMP 97.3–99; O2SAT 96–99
[2023-04-13] MEDS: ALBUTEROL SULFATE 2.5 MG/3 ML NEBU NEB SCH ×6 (05:27→23:00)
[2023-04-13] MEDS: IPRATROPIUM BROMIDE 0.5 MG/2.5 ML NEBU NEB SCH ×6 (05:27→23:00)
[2023-04-13] MEDS: BACLOFEN 10 MG TABLET GT SCH ×3 (05:28→17:21)
[2023-04-13] MEDS: ARGININE/GLUTAMINE/CALCIUM BMB 1 EACH POWD.PACK GT SCH ×2 (05:28→17:21)
[2023-04-13] MEDS: OMEGA-3 FATTY ACIDS/FISH OIL CAPSULE GT SCH ×2 (05:28→17:21)
[2023-04-13] MEDS: OMEPRAZOLE 20 MG CAPSULE.DR GT SCH (05:28)
[2023-04-13] MEDS: PROTEIN SUPPLEMENT (PROSTAT) 30 ML LIQUID GT SCH ×3 (05:29→22:19)
[2023-04-13] MEDS: MIDODRINE HCL 5 MG TABLET GT SCH ×3 (05:29→22:00)
[2023-04-13] MEDS: REMEDY ESSENTIAL ZINC PASTE 113 GM TP SCH ×2 (08:09→20:52)
[2023-04-13] MEDS: levETIRAcetam 500 MG/5 ML LIQUID UDC GT SCH ×2 (08:09→20:52)
[2023-04-13] MEDS: NITROFURANTOIN MACROCRYSTAL 100 MG CAPSULE GT SCH (08:09)
[2023-04-13] MEDS: VITAMINS A AND D 5 GM UD PKT TP SCH ×2 (08:09→20:52)
[2023-04-13] MEDS: ACETAMINOPHEN 650 MG/20.3 ML LIQUID UDC GT SCH ×2 (08:09→20:30)
[2023-04-13] MEDS: MEDIHONEY= THERAHONEY 1.5 OZ TUBE TOP SCH ×4 (08:09→20:52)
[2023-04-13] MEDS: ACIDOPHILUS/BULGARICUS CHEW TAB GT SCH ×2 (08:09→20:51)
[2023-04-13] MEDS: HYDROGEN PEROXIDE 3% 118 ML BOTTLE TP SCH ×2 (09:12→21:09)
[2023-04-13] MEDS: SERTRALINE HCL 25 MG TABLET GT SCH (11:13)
[2023-04-13] MEDS: GLUCERNA 1.2 1000ML LIQUID GT PRN (15:21)
[2023-04-13] MEDS: APIXABAN 2.5 MG TABLET GT SCH (20:45)
[2023-04-13] MEDS: MULTIVIT, IRON, MIN NO. 8, FA TABLET GT SCH (20:52)
[2023-04-13] MEDS: ESTROGENS,CONJU VAGINAL CREAM 42.5 GM TUBE VG SCH (20:52)
[2023-04-13] MEDS: ASCORBIC ACID 500 MG TABLET GT SCH (20:52)
[2023-04-13] MEDS: TEMAZEPAM 7.5 MG CAPSULE GT PRN (22:00)
[2023-04-14] VITALS (12 sets, daily range): TEMP 97.8–98; O2SAT 97–99
[2023-04-14] MEDS: ALBUTEROL SULFATE 2.5 MG/3 ML NEBU NEB SCH ×6 (03:02→23:24)
[2023-04-14] MEDS: IPRATROPIUM BROMIDE 0.5 MG/2.5 ML NEBU NEB SCH ×6 (03:02→23:23)
[2023-04-14] MEDS: ARGININE/GLUTAMINE/CALCIUM BMB 1 EACH POWD.PACK GT SCH ×2 (05:23→17:38)
[2023-04-14] MEDS: OMEGA-3 FATTY ACIDS/FISH OIL CAPSULE GT SCH ×2 (05:23→17:38)
[2023-04-14] MEDS: OMEPRAZOLE 20 MG CAPSULE.DR GT SCH (05:23)
[2023-04-14] MEDS: BACLOFEN 10 MG TABLET GT SCH ×4 (05:23→17:38)
[2023-04-14] MEDS: MIDODRINE HCL 5 MG TABLET GT SCH ×3 (05:24→22:00)
[2023-04-14] MEDS: PROTEIN SUPPLEMENT (PROSTAT) 30 ML LIQUID GT SCH ×3 (05:24→22:00)
[2023-04-14] MEDS: HYDROGEN PEROXIDE 3% 118 ML BOTTLE TP SCH ×2 (08:20→19:19)
[2023-04-14] MEDS: ACETAMINOPHEN 650 MG/20.3 ML LIQUID UDC GT SCH ×2 (08:49→20:36)
[2023-04-14] MEDS: ACIDOPHILUS/BULGARICUS CHEW TAB GT SCH ×2 (08:55→20:36)
[2023-04-14] MEDS: APIXABAN 2.5 MG TABLET GT SCH ×2 (08:55→21:00)
[2023-04-14] MEDS: levETIRAcetam 500 MG/5 ML LIQUID UDC GT SCH ×2 (08:55→20:36)
[2023-04-14] MEDS: NITROFURANTOIN MACROCRYSTAL 100 MG CAPSULE GT SCH (08:56)
[2023-04-14] MEDS: VITAMINS A AND D 5 GM UD PKT TP SCH ×2 (08:56→20:39)
[2023-04-14] MEDS: MEDIHONEY= THERAHONEY 1.5 OZ TUBE TOP SCH ×4 (08:56→20:39)
[2023-04-14] MEDS: REMEDY ESSENTIAL ZINC PASTE 113 GM TP SCH ×2 (08:56→20:39)
[2023-04-14] MEDS: SERTRALINE HCL 25 MG TABLET GT SCH (12:51)
[2023-04-14] MEDS: ASCORBIC ACID 500 MG TABLET GT SCH (20:36)
[2023-04-14] MEDS: MULTIVIT, IRON, MIN NO. 8, FA TABLET GT SCH (20:36)
[2023-04-14] MEDS: ESTROGENS,CONJU VAGINAL CREAM 42.5 GM TUBE VG SCH (20:39)
[2023-04-14] MEDS: HYDROCODONE/APAP 10-325 MG TABLET GT PRN (23:04)
[2023-04-15] VITALS (14 sets, daily range): TEMP 98.4; O2SAT 98–99
[2023-04-15] MEDS: BACLOFEN 10 MG TABLET GT SCH ×4 (00:05→17:09)
[2023-04-15] MEDS: IPRATROPIUM BROMIDE 0.5 MG/2.5 ML NEBU NEB SCH ×6 (03:26→23:06)
[2023-04-15] MEDS: ALBUTEROL SULFATE 2.5 MG/3 ML NEBU NEB SCH ×6 (03:27→23:06)
[2023-04-15] MEDS: ARGININE/GLUTAMINE/CALCIUM BMB 1 EACH POWD.PACK GT SCH ×2 (05:17→17:09)
[2023-04-15] MEDS: OMEGA-3 FATTY ACIDS/FISH OIL CAPSULE GT SCH ×2 (05:17→17:09)
[2023-04-15] MEDS: OMEPRAZOLE 20 MG CAPSULE.DR GT SCH (05:17)
[2023-04-15] MEDS: PROTEIN SUPPLEMENT (PROSTAT) 30 ML LIQUID GT SCH ×3 (05:17→21:40)
[2023-04-15] MEDS: MIDODRINE HCL 5 MG TABLET GT SCH ×3 (05:18→21:46)
[2023-04-15] MEDS: GLUCERNA 1.2 1000ML LIQUID GT PRN (05:18)
[2023-04-15] MEDS: HYDROGEN PEROXIDE 3% 118 ML BOTTLE TP SCH ×2 (08:48→19:14)
[2023-04-15] MEDS: ACETAMINOPHEN 650 MG/20.3 ML LIQUID UDC GT SCH ×2 (08:57→20:30)
[2023-04-15] MEDS: NITROFURANTOIN MACROCRYSTAL 100 MG CAPSULE GT SCH (08:58)
[2023-04-15] MEDS: MEDIHONEY= THERAHONEY 1.5 OZ TUBE TOP SCH ×4 (08:58→21:41)
[2023-04-15] MEDS: levETIRAcetam 500 MG/5 ML LIQUID UDC GT SCH ×2 (08:58→21:41)
[2023-04-15] MEDS: ACIDOPHILUS/BULGARICUS CHEW TAB GT SCH ×2 (08:58→21:41)
[2023-04-15] MEDS: APIXABAN 2.5 MG TABLET GT SCH (08:58)
[2023-04-15] MEDS: VITAMINS A AND D 5 GM UD PKT TP SCH ×2 (08:59→21:40)
[2023-04-15] MEDS: REMEDY ESSENTIAL ZINC PASTE 113 GM TP SCH ×2 (08:59→21:40)
[2023-04-15] MEDS: SERTRALINE HCL 25 MG TABLET GT SCH (12:19)
[2023-04-15] MEDS: MULTIVIT, IRON, MIN NO. 8, FA TABLET GT SCH (21:42)
[2023-04-15] MEDS: ASCORBIC ACID 500 MG TABLET GT SCH (21:42)
[2023-04-15] MEDS: ESTROGENS,CONJU VAGINAL CREAM 42.5 GM TUBE VG SCH (21:43)
[2023-04-16] VITALS (16 sets, daily range): TEMP 98–98.9; O2SAT 92–99
[2023-04-16] MEDS: BACLOFEN 10 MG TABLET GT SCH ×4 (00:15→17:53)
[2023-04-16] MEDS: IPRATROPIUM BROMIDE 0.5 MG/2.5 ML NEBU NEB SCH ×6 (03:09→23:39)
[2023-04-16] MEDS: ALBUTEROL SULFATE 2.5 MG/3 ML NEBU NEB SCH ×7 (03:09→23:39)
[2023-04-16] MEDS: MIDODRINE HCL 5 MG TABLET GT SCH ×3 (05:07→21:47)
[2023-04-16] MEDS: OMEPRAZOLE 20 MG CAPSULE.DR GT SCH (05:07)
[2023-04-16] MEDS: ARGININE/GLUTAMINE/CALCIUM BMB 1 EACH POWD.PACK GT SCH ×2 (05:07→17:53)
[2023-04-16] MEDS: OMEGA-3 FATTY ACIDS/FISH OIL CAPSULE GT SCH ×2 (05:07→17:53)
[2023-04-16] MEDS: GLUCERNA 1.2 1000ML LIQUID GT PRN (05:07)
[2023-04-16] MEDS: PROTEIN SUPPLEMENT (PROSTAT) 30 ML LIQUID GT SCH ×3 (05:07→21:46)
[2023-04-16] MEDS: ACETAMINOPHEN 650 MG/20.3 ML LIQUID UDC GT SCH ×2 (08:39→20:30)
[2023-04-16] MEDS: ACIDOPHILUS/BULGARICUS CHEW TAB GT SCH ×2 (08:39→21:45)
[2023-04-16] MEDS: VITAMINS A AND D 5 GM UD PKT TP SCH ×2 (08:40→21:46)
[2023-04-16] MEDS: REMEDY ESSENTIAL ZINC PASTE 113 GM TP SCH ×2 (08:40→21:46)
[2023-04-16] MEDS: NITROFURANTOIN MACROCRYSTAL 100 MG CAPSULE GT SCH (08:40)
[2023-04-16] MEDS: levETIRAcetam 500 MG/5 ML LIQUID UDC GT SCH ×2 (08:40→21:48)
[2023-04-16] MEDS: MEDIHONEY= THERAHONEY 1.5 OZ TUBE TOP SCH ×4 (08:40→21:46)
[2023-04-16] MEDS: HYDROGEN PEROXIDE 3% 118 ML BOTTLE TP SCH ×2 (09:18→19:14)
[2023-04-16] MEDS: SERTRALINE HCL 25 MG TABLET GT SCH (12:32)
[2023-04-16] MEDS: ASCORBIC ACID 500 MG TABLET GT SCH (21:45)
[2023-04-16] MEDS: MULTIVIT, IRON, MIN NO. 8, FA TABLET GT SCH (21:45)
[2023-04-16] MEDS: ESTROGENS,CONJU VAGINAL CREAM 42.5 GM TUBE VG SCH (21:46)
[2023-04-17] VITALS (14 sets, daily range): TEMP 98.3–98.7; O2SAT 95–99
[2023-04-17] MEDS: IPRATROPIUM BROMIDE 0.5 MG/2.5 ML NEBU NEB SCH ×6 (03:28→23:13)
[2023-04-17] MEDS: ALBUTEROL SULFATE 2.5 MG/3 ML NEBU NEB SCH ×6 (03:28→23:13)
[2023-04-17] MEDS: PROTEIN SUPPLEMENT (PROSTAT) 30 ML LIQUID GT SCH ×3 (05:03→22:04)
[2023-04-17] MEDS: OMEGA-3 FATTY ACIDS/FISH OIL CAPSULE GT SCH ×2 (05:03→17:47)
[2023-04-17] MEDS: ARGININE/GLUTAMINE/CALCIUM BMB 1 EACH POWD.PACK GT SCH ×2 (05:03→17:47)
[2023-04-17] MEDS: BACLOFEN 10 MG TABLET GT SCH ×4 (05:03→17:47)
[2023-04-17] MEDS: OMEPRAZOLE 20 MG CAPSULE.DR GT SCH (05:03)
[2023-04-17] MEDS: GLUCERNA 1.2 1000ML LIQUID GT PRN (05:04)
[2023-04-17] MEDS: MIDODRINE HCL 5 MG TABLET GT SCH ×3 (05:04→22:04)
[2023-04-17] MEDS: ACETAMINOPHEN 650 MG/20.3 ML LIQUID UDC GT SCH ×2 (08:41→20:30)
[2023-04-17] MEDS: ACIDOPHILUS/BULGARICUS CHEW TAB GT SCH ×2 (08:42→21:00)
[2023-04-17] MEDS: levETIRAcetam 500 MG/5 ML LIQUID UDC GT SCH ×2 (08:43→21:00)
[2023-04-17] MEDS: MEDIHONEY= THERAHONEY 1.5 OZ TUBE TOP SCH ×4 (08:43→21:00)
[2023-04-17] MEDS: NITROFURANTOIN MACROCRYSTAL 100 MG CAPSULE GT SCH (08:43)
[2023-04-17] MEDS: VITAMINS A AND D 5 GM UD PKT TP SCH ×2 (08:45→21:00)
[2023-04-17] MEDS: REMEDY ESSENTIAL ZINC PASTE 113 GM TP SCH ×2 (08:45→21:00)
[2023-04-17] MEDS: HYDROGEN PEROXIDE 3% 118 ML BOTTLE TP SCH ×2 (09:14→19:14)
[2023-04-17] MEDS: SERTRALINE HCL 25 MG TABLET GT SCH (12:30)
[2023-04-17] MEDS: ASCORBIC ACID 500 MG TABLET GT SCH (21:00)
[2023-04-17] MEDS: ESTROGENS,CONJU VAGINAL CREAM 42.5 GM TUBE VG SCH (21:00)
[2023-04-17] MEDS: MULTIVIT, IRON, MIN NO. 8, FA TABLET GT SCH (21:00)
[2023-04-17] MEDS: TEMAZEPAM 7.5 MG CAPSULE GT PRN (22:06)
[2023-04-18] VITALS (16 sets, daily range): TEMP 98–98.8; O2SAT 97–98
[2023-04-18] MEDS: IPRATROPIUM BROMIDE 0.5 MG/2.5 ML NEBU NEB SCH ×6 (03:11→23:49)
[2023-04-18] MEDS: ALBUTEROL SULFATE 2.5 MG/3 ML NEBU NEB SCH ×6 (03:11→23:49)
[2023-04-18] MEDS: OMEGA-3 FATTY ACIDS/FISH OIL CAPSULE GT SCH ×2 (05:30→17:52)
[2023-04-18] MEDS: ARGININE/GLUTAMINE/CALCIUM BMB 1 EACH POWD.PACK GT SCH ×2 (05:30→17:52)
[2023-04-18] MEDS: BACLOFEN 10 MG TABLET GT SCH ×4 (05:30→17:52)
[2023-04-18] MEDS: PROTEIN SUPPLEMENT (PROSTAT) 30 ML LIQUID GT SCH ×3 (05:33→21:19)
[2023-04-18] MEDS: OMEPRAZOLE 20 MG CAPSULE.DR GT SCH (05:33)
[2023-04-18] MEDS: MIDODRINE HCL 5 MG TABLET GT SCH ×3 (05:33→21:19)
[2023-04-18] MEDS: GLUCERNA 1.2 1000ML LIQUID GT PRN (06:01)
[2023-04-18] MEDS: ACETAMINOPHEN 650 MG/20.3 ML LIQUID UDC GT SCH ×2 (08:30→21:11)
[2023-04-18] MEDS: REMEDY ESSENTIAL ZINC PASTE 113 GM TP SCH ×2 (09:00→21:18)
[2023-04-18] MEDS: HYDROGEN PEROXIDE 3% 118 ML BOTTLE TP SCH ×2 (09:00→21:48)
[2023-04-18] MEDS: VITAMINS A AND D 5 GM UD PKT TP SCH ×2 (09:00→21:18)
[2023-04-18] MEDS: MEDIHONEY= THERAHONEY 1.5 OZ TUBE TOP SCH ×4 (09:00→21:18)
[2023-04-18] MEDS: NITROFURANTOIN MACROCRYSTAL 100 MG CAPSULE GT SCH (09:45)
[2023-04-18] MEDS: ACIDOPHILUS/BULGARICUS CHEW TAB GT SCH ×2 (09:45→21:11)
[2023-04-18] MEDS: levETIRAcetam 500 MG/5 ML LIQUID UDC GT SCH ×2 (09:45→21:13)
[2023-04-18] MEDS: SERTRALINE HCL 25 MG TABLET GT SCH (12:00)
[2023-04-18] MEDS: MULTIVIT, IRON, MIN NO. 8, FA TABLET GT SCH (21:16)
[2023-04-18] MEDS: ASCORBIC ACID 500 MG TABLET GT SCH (21:16)
[2023-04-18] MEDS: ESTROGENS,CONJU VAGINAL CREAM 42.5 GM TUBE VG SCH (21:18)
[2023-04-18] MEDS: FOSFOMYCIN TROMETHAMINE 3 GM PACKET GT SCH (21:24)
[2023-04-19] VITALS (15 sets, daily range): TEMP 97.7–97.9; O2SAT 97–98
[2023-04-19] MEDS: HYDROCODONE/APAP 10-325 MG TABLET GT PRN (05:07)
[2023-04-19] MEDS: IPRATROPIUM BROMIDE 0.5 MG/2.5 ML NEBU NEB SCH ×6 (05:30→23:14)
[2023-04-19] MEDS: ALBUTEROL SULFATE 2.5 MG/3 ML NEBU NEB SCH ×6 (05:31→23:14)
[2023-04-19] MEDS: ARGININE/GLUTAMINE/CALCIUM BMB 1 EACH POWD.PACK GT SCH ×2 (05:34→18:23)
[2023-04-19] MEDS: BACLOFEN 10 MG TABLET GT SCH ×4 (05:34→18:25)
[2023-04-19] MEDS: PROTEIN SUPPLEMENT (PROSTAT) 30 ML LIQUID GT SCH ×3 (05:34→22:07)
[2023-04-19] MEDS: OMEPRAZOLE 20 MG CAPSULE.DR GT SCH (05:34)
[2023-04-19] MEDS: OMEGA-3 FATTY ACIDS/FISH OIL CAPSULE GT SCH ×2 (05:34→18:23)
[2023-04-19] MEDS: MIDODRINE HCL 5 MG TABLET GT SCH ×3 (05:34→22:00)
[2023-04-19] MEDS: GLUCERNA 1.2 1000ML LIQUID GT PRN (05:35)
[2023-04-19] MEDS: ACETAMINOPHEN 650 MG/20.3 ML LIQUID UDC GT SCH ×2 (09:27→20:47)
[2023-04-19] MEDS: ACIDOPHILUS/BULGARICUS CHEW TAB GT SCH ×2 (09:27→20:47)
[2023-04-19] MEDS: levETIRAcetam 500 MG/5 ML LIQUID UDC GT SCH ×2 (09:29→20:48)
[2023-04-19] MEDS: MEDIHONEY= THERAHONEY 1.5 OZ TUBE TOP SCH ×4 (09:30→20:49)
[2023-04-19] MEDS: NITROFURANTOIN MACROCRYSTAL 100 MG CAPSULE GT SCH (09:30)
[2023-04-19] MEDS: VITAMINS A AND D 5 GM UD PKT TP SCH ×2 (09:31→20:49)
[2023-04-19] MEDS: REMEDY ESSENTIAL ZINC PASTE 113 GM TP SCH ×2 (09:31→20:49)
[2023-04-19] MEDS: HYDROGEN PEROXIDE 3% 118 ML BOTTLE TP SCH ×2 (09:51→19:20)
[2023-04-19] MEDS: SERTRALINE HCL 25 MG TABLET GT SCH (12:00)
[2023-04-19] MEDS: ESTROGENS,CONJU VAGINAL CREAM 42.5 GM TUBE VG SCH (20:49)
[2023-04-19] MEDS: ASCORBIC ACID 500 MG TABLET GT SCH (20:49)
[2023-04-19] MEDS: MULTIVIT, IRON, MIN NO. 8, FA TABLET GT SCH (20:49)
[2023-04-20] VITALS (14 sets, daily range): TEMP 96.8–97.5; O2SAT 97–99
[2023-04-20] MEDS: ALBUTEROL SULFATE 2.5 MG/3 ML NEBU NEB SCH ×6 (03:28→23:22)
[2023-04-20] MEDS: IPRATROPIUM BROMIDE 0.5 MG/2.5 ML NEBU NEB SCH ×6 (03:28→23:22)
[2023-04-20] MEDS: GLUCERNA 1.2 1000ML LIQUID GT PRN (03:45)
[2023-04-20] MEDS: ARGININE/GLUTAMINE/CALCIUM BMB 1 EACH POWD.PACK GT SCH ×2 (05:21→17:35)
[2023-04-20] MEDS: OMEGA-3 FATTY ACIDS/FISH OIL CAPSULE GT SCH ×2 (05:21→17:34)
[2023-04-20] MEDS: OMEPRAZOLE 20 MG CAPSULE.DR GT SCH (05:21)
[2023-04-20] MEDS: BACLOFEN 10 MG TABLET GT SCH ×4 (05:21→17:32)
[2023-04-20] MEDS: MIDODRINE HCL 5 MG TABLET GT SCH ×3 (05:22→21:02)
[2023-04-20] MEDS: PROTEIN SUPPLEMENT (PROSTAT) 30 ML LIQUID GT SCH ×3 (05:22→21:02)
[2023-04-20] MEDS: ACIDOPHILUS/BULGARICUS CHEW TAB GT SCH ×2 (09:22→21:00)
[2023-04-20] MEDS: ACETAMINOPHEN 650 MG/20.3 ML LIQUID UDC GT SCH ×2 (09:24→20:59)
[2023-04-20] MEDS: NITROFURANTOIN MACROCRYSTAL 100 MG CAPSULE GT SCH (09:26)
[2023-04-20] MEDS: VITAMINS A AND D 5 GM UD PKT TP SCH ×2 (09:27→21:01)
[2023-04-20] MEDS: REMEDY ESSENTIAL ZINC PASTE 113 GM TP SCH ×2 (09:27→21:01)
[2023-04-20] MEDS: levETIRAcetam 500 MG/5 ML LIQUID UDC GT SCH ×2 (09:27→21:00)
[2023-04-20] MEDS: MEDIHONEY= THERAHONEY 1.5 OZ TUBE TOP SCH ×4 (09:27→21:01)
[2023-04-20] MEDS: HYDROGEN PEROXIDE 3% 118 ML BOTTLE TP SCH ×2 (09:35→19:09)
[2023-04-20] MEDS: SERTRALINE HCL 25 MG TABLET GT SCH (12:00)
[2023-04-20] MEDS: HYDROCODONE/APAP 10-325 MG TABLET GT PRN (16:29)
[2023-04-20] MEDS: ESTROGENS,CONJU VAGINAL CREAM 42.5 GM TUBE VG SCH (21:01)
[2023-04-20] MEDS: MULTIVIT, IRON, MIN NO. 8, FA TABLET GT SCH (21:01)
[2023-04-20] MEDS: ASCORBIC ACID 500 MG TABLET GT SCH (21:01)
[2023-04-20] MEDS: TEMAZEPAM 7.5 MG CAPSULE GT PRN (21:02)
[2023-04-21] VITALS (14 sets, daily range): TEMP 98.8; O2SAT 97–98
[2023-04-21] MEDS: ALBUTEROL SULFATE 2.5 MG/3 ML NEBU NEB SCH ×6 (03:32→23:50)
[2023-04-21] MEDS: IPRATROPIUM BROMIDE 0.5 MG/2.5 ML NEBU NEB SCH ×6 (03:32→23:49)
[2023-04-21] MEDS: HYDROCODONE/APAP 10-325 MG TABLET GT PRN (04:45)
[2023-04-21] MEDS: OMEGA-3 FATTY ACIDS/FISH OIL CAPSULE GT SCH ×2 (05:02→17:09)
[2023-04-21] MEDS: ARGININE/GLUTAMINE/CALCIUM BMB 1 EACH POWD.PACK GT SCH ×2 (05:03→17:09)
[2023-04-21] MEDS: PROTEIN SUPPLEMENT (PROSTAT) 30 ML LIQUID GT SCH ×3 (05:03→21:51)
[2023-04-21] MEDS: BACLOFEN 10 MG TABLET GT SCH ×4 (05:03→17:09)
[2023-04-21] MEDS: OMEPRAZOLE 20 MG CAPSULE.DR GT SCH (05:03)
[2023-04-21] MEDS: MIDODRINE HCL 5 MG TABLET GT SCH ×3 (05:03→21:50)
[2023-04-21] MEDS: HYDROGEN PEROXIDE 3% 118 ML BOTTLE TP SCH ×2 (07:35→19:27)
[2023-04-21] MEDS: ACETAMINOPHEN 650 MG/20.3 ML LIQUID UDC GT SCH ×2 (08:30→20:30)
[2023-04-21] MEDS: NITROFURANTOIN MACROCRYSTAL 100 MG CAPSULE GT SCH (09:00)
[2023-04-21] MEDS: REMEDY ESSENTIAL ZINC PASTE 113 GM TP SCH ×2 (09:00→21:50)
[2023-04-21] MEDS: MEDIHONEY= THERAHONEY 1.5 OZ TUBE TOP SCH ×4 (09:00→21:50)
[2023-04-21] MEDS: VITAMINS A AND D 5 GM UD PKT TP SCH ×2 (09:00→21:50)
[2023-04-21] MEDS: ACIDOPHILUS/BULGARICUS CHEW TAB GT SCH ×2 (09:00→21:48)
[2023-04-21] MEDS: levETIRAcetam 500 MG/5 ML LIQUID UDC GT SCH ×2 (09:00→21:49)
[2023-04-21] MEDS: SERTRALINE HCL 25 MG TABLET GT SCH (12:00)
[2023-04-21] MEDS: GLUCERNA 1.2 1000ML LIQUID GT PRN (14:07)
[2023-04-21] MEDS: ASCORBIC ACID 500 MG TABLET GT SCH (21:50)
[2023-04-21] MEDS: ESTROGENS,CONJU VAGINAL CREAM 42.5 GM TUBE VG SCH (21:50)
[2023-04-21] MEDS: MULTIVIT, IRON, MIN NO. 8, FA TABLET GT SCH (21:50)
[2023-04-22] VITALS (18 sets, daily range): TEMP 97.5–100.2; O2SAT 97–99
[2023-04-22] MEDS: BACLOFEN 10 MG TABLET GT SCH ×4 (00:06→17:12)
[2023-04-22] MEDS: ALBUTEROL SULFATE 2.5 MG/3 ML NEBU NEB SCH ×6 (03:33→22:55)
[2023-04-22] MEDS: IPRATROPIUM BROMIDE 0.5 MG/2.5 ML NEBU NEB SCH ×6 (03:33→22:55)
[2023-04-22] MEDS: PROTEIN SUPPLEMENT (PROSTAT) 30 ML LIQUID GT SCH ×3 (06:53→22:55)
[2023-04-22] MEDS: ARGININE/GLUTAMINE/CALCIUM BMB 1 EACH POWD.PACK GT SCH ×2 (06:53→17:12)
[2023-04-22] MEDS: OMEPRAZOLE 20 MG CAPSULE.DR GT SCH (06:53)
[2023-04-22] MEDS: OMEGA-3 FATTY ACIDS/FISH OIL CAPSULE GT SCH ×2 (06:53→17:12)
[2023-04-22] MEDS: MIDODRINE HCL 5 MG TABLET GT SCH ×3 (06:53→22:55)
[2023-04-22] MEDS: HYDROGEN PEROXIDE 3% 118 ML BOTTLE TP SCH ×2 (07:34→20:45)
[2023-04-22] MEDS: ACETAMINOPHEN 650 MG/20.3 ML LIQUID UDC GT SCH ×2 (09:05→20:45)
[2023-04-22] MEDS: ACIDOPHILUS/BULGARICUS CHEW TAB GT SCH ×2 (09:05→20:45)
[2023-04-22] MEDS: NITROFURANTOIN MACROCRYSTAL 100 MG CAPSULE GT SCH (09:06)
[2023-04-22] MEDS: levETIRAcetam 500 MG/5 ML LIQUID UDC GT SCH ×2 (09:06→20:45)
[2023-04-22] MEDS: VITAMINS A AND D 5 GM UD PKT TP SCH ×2 (09:07→20:46)
[2023-04-22] MEDS: REMEDY ESSENTIAL ZINC PASTE 113 GM TP SCH ×2 (09:07→20:46)
[2023-04-22] MEDS: MEDIHONEY= THERAHONEY 1.5 OZ TUBE TOP SCH ×4 (09:07→20:45)
[2023-04-22] MEDS: SERTRALINE HCL 25 MG TABLET GT SCH (12:54)
[2023-04-22] MEDS: GLUCERNA 1.2 1000ML LIQUID GT PRN (18:15)
[2023-04-22] MEDS: MULTIVIT, IRON, MIN NO. 8, FA TABLET GT SCH (20:45)
[2023-04-22] MEDS: ASCORBIC ACID 500 MG TABLET GT SCH (20:45)
[2023-04-22] MEDS: ESTROGENS,CONJU VAGINAL CREAM 42.5 GM TUBE VG SCH (20:46)
[2023-04-23] VITALS (14 sets, daily range): TEMP 98.2–98.6; O2SAT 97–99
[2023-04-23] MEDS: BACLOFEN 10 MG TABLET GT SCH ×4 (00:29→17:17)
[2023-04-23] MEDS: IPRATROPIUM BROMIDE 0.5 MG/2.5 ML NEBU NEB SCH ×6 (03:34→23:12)
[2023-04-23] MEDS: ALBUTEROL SULFATE 2.5 MG/3 ML NEBU NEB SCH ×6 (03:34→23:12)
[2023-04-23] MEDS: PROTEIN SUPPLEMENT (PROSTAT) 30 ML LIQUID GT SCH ×3 (05:25→21:35)
[2023-04-23] MEDS: ARGININE/GLUTAMINE/CALCIUM BMB 1 EACH POWD.PACK GT SCH ×2 (05:25→17:17)
[2023-04-23] MEDS: OMEGA-3 FATTY ACIDS/FISH OIL CAPSULE GT SCH ×2 (05:25→17:17)
[2023-04-23] MEDS: OMEPRAZOLE 20 MG CAPSULE.DR GT SCH (05:25)
[2023-04-23] MEDS: MIDODRINE HCL 5 MG TABLET GT SCH ×3 (05:26→21:35)
[2023-04-23] MEDS: HYDROCODONE/APAP 10-325 MG TABLET GT PRN (05:30)
[2023-04-23] MEDS: ACETAMINOPHEN 650 MG/20.3 ML LIQUID UDC GT SCH ×2 (09:04→20:30)
[2023-04-23] MEDS: ACIDOPHILUS/BULGARICUS CHEW TAB GT SCH ×2 (09:05→21:34)
[2023-04-23] MEDS: levETIRAcetam 500 MG/5 ML LIQUID UDC GT SCH ×2 (09:06→21:34)
[2023-04-23] MEDS: VITAMINS A AND D 5 GM UD PKT TP SCH ×2 (09:07→21:35)
[2023-04-23] MEDS: REMEDY ESSENTIAL ZINC PASTE 113 GM TP SCH ×2 (09:07→21:34)
[2023-04-23] MEDS: NITROFURANTOIN MACROCRYSTAL 100 MG CAPSULE GT SCH (09:07)
[2023-04-23] MEDS: MEDIHONEY= THERAHONEY 1.5 OZ TUBE TOP SCH ×4 (09:07→21:34)
[2023-04-23] MEDS: HYDROGEN PEROXIDE 3% 118 ML BOTTLE TP SCH ×2 (09:50→19:07)
[2023-04-23] MEDS: SERTRALINE HCL 25 MG TABLET GT SCH (12:29)
[2023-04-23] MEDS: MULTIVIT, IRON, MIN NO. 8, FA TABLET GT SCH (21:34)
[2023-04-23] MEDS: ASCORBIC ACID 500 MG TABLET GT SCH (21:34)
[2023-04-23] MEDS: ESTROGENS,CONJU VAGINAL CREAM 42.5 GM TUBE VG SCH (21:35)
[2023-04-24] VITALS (14 sets, daily range): BP systolic 110; BP diastolic 73; TEMP 97–98; O2SAT 92–99
[2023-04-24] MEDS: GLUCERNA 1.2 1000ML LIQUID GT PRN (00:38)
[2023-04-24] MEDS: BACLOFEN 10 MG TABLET GT SCH ×4 (00:39→17:34)
[2023-04-24] MEDS: ALBUTEROL SULFATE 2.5 MG/3 ML NEBU NEB SCH ×6 (03:31→23:31)
[2023-04-24] MEDS: IPRATROPIUM BROMIDE 0.5 MG/2.5 ML NEBU NEB SCH ×6 (03:31→23:31)
[2023-04-24] MEDS: OMEGA-3 FATTY ACIDS/FISH OIL CAPSULE GT SCH ×2 (05:14→17:33)
[2023-04-24] MEDS: ARGININE/GLUTAMINE/CALCIUM BMB 1 EACH POWD.PACK GT SCH ×2 (05:15→17:33)
[2023-04-24] MEDS: OMEPRAZOLE 20 MG CAPSULE.DR GT SCH (05:15)
[2023-04-24] MEDS: MIDODRINE HCL 5 MG TABLET GT SCH ×3 (05:16→22:56)
[2023-04-24] MEDS: PROTEIN SUPPLEMENT (PROSTAT) 30 ML LIQUID GT SCH ×3 (05:17→22:57)
[2023-04-24] MEDS: HYDROGEN PEROXIDE 3% 118 ML BOTTLE TP SCH ×2 (07:10→20:47)
[2023-04-24 07:36] LABS: CALCIUM 10.1 mg/dL (8.5-10.1); CREATININE 1.1 mg/dL (0.6-1.3)
[2023-04-24 08:25] LABS: POTASSIUM 2.7 mmol/L (3.5-5.1)
[2023-04-24] MEDS: ACETAMINOPHEN 650 MG/20.3 ML LIQUID UDC GT SCH ×2 (08:30→20:30)
[2023-04-24 09:45] LABS: BASOPHILS # (AUTO) 0.1 K/UL (0.0-0.2); BASOPHILS % (AUTO) 0.6 % (0.0-2.0); EOSINOPHILS # (AUTO) 0.3 K/uL (0.0-0.7); EOSINOPHILS % (AUTO) 3.3 % (0.0-7.0); HEMATOCRIT 33.5 % (31.2-41.9); HEMOGLOBIN 10.2 g/dL (10.9-14.3); LYMPHOCYTES # (AUTO) 1.9 K/uL (0.8-4.8); LYMPHOCYTES % (AUTO) 18.3 % (20.5-51.5); MEAN CORPUSCULAR HEMOGLOBIN 24.1 uug (24.7-32.8); MEAN CORPUSCULAR HGB CONC 31 g/dL (32.3-35.6); MEAN CORPUSCULAR VOLUME 79.2 fL (75.5-95.3); MONOCYTES % (AUTO) 9.2 % (0.0-11.0); NEUTROPHILS # (AUTO) 7.2 K/uL (1.8-8.9); NEUTROPHILS % (AUTO) 68.6 % (38.5-71.5); PLATELET COUNT (AUTO) 178 K/uL (179-408); RED BLOOD CELL COUNT(AUTO) 4.23 MIL/uL (3.63-4.92); RED CELL DISTRIBUTION WIDTH 21.8 % (12.3-17.7); WHITE BLOOD COUNT (AUTO) 10.4 K/uL (3.8-11.8)
[2023-04-24] MEDS: ACIDOPHILUS/BULGARICUS CHEW TAB GT SCH ×2 (09:45→21:00)
[2023-04-24] MEDS: NITROFURANTOIN MACROCRYSTAL 100 MG CAPSULE GT SCH (09:48)
[2023-04-24] MEDS: MEDIHONEY= THERAHONEY 1.5 OZ TUBE TOP SCH ×4 (09:49→21:00)
[2023-04-24] MEDS: levETIRAcetam 500 MG/5 ML LIQUID UDC GT SCH ×2 (09:49→21:00)
[2023-04-24] MEDS: REMEDY ESSENTIAL ZINC PASTE 113 GM TP SCH ×2 (09:50→21:00)
[2023-04-24] MEDS: VITAMINS A AND D 5 GM UD PKT TP SCH ×2 (09:50→21:00)
[2023-04-24 09:56] LABS: DIFFERENTIAL COMMENT 1
[2023-04-24] MEDS: POTASSIUM CHLORIDE 20 MEQ/15 ML PO SCH ×4 (11:45→18:17)
[2023-04-24] MEDS: SERTRALINE HCL 25 MG TABLET GT SCH (12:00)
[2023-04-24] MEDS ORDERED: POTASSIUM CHLORIDE 10 MEQ TAB.PRT.SR PO SCH ×2 (12:45→13:00)
[2023-04-24 13:26] LABS: *BILIRUBIN,URIN NEGATIVE (NEGATIVE); *BLOOD, URINE 3+ (NEGATIVE); *CLARITY,URINE CLOUDY (CLEAR); *COLOR,URINE Orange (YELLOW); *KETONES,URINE NEGATIVE (NEGATIVE); *UROBILINOGEN,URINE 0.2 E.U./dl (NORMAL); LEUKOCYTE ESTERASE ,URINE 3+ (NEGATIVE); NITRITE, URINE NEGATIVE (NEGATIVE); PH,URINE 6.5 (5.0-8.0); UGLUCOSE NEGATIVE (NEGATIVE)
[2023-04-24 14:04] LABS: *PROTEIN,URINE 3+ (NEGATIVE)
[2023-04-24 15:04] LABS: RBC,URINE 80-100 /HPF (0-3); WBC,URINE 80-100 /HPF (0-3)
[2023-04-24 15:05] LABS: BACTERIA,URINE MODERATE /HPF (NONE SEEN); SQUAMOUS EPITHELIAL CELL,UR FEW /HPF (NONE SEEN)
[2023-04-24] MEDS ORDERED: IV NS 1000 ML 1,000 ML IV SCH (18:00)
[2023-04-24] MEDS: MULTIVIT, IRON, MIN NO. 8, FA TABLET GT SCH (21:00)
[2023-04-24] MEDS: ESTROGENS,CONJU VAGINAL CREAM 42.5 GM TUBE VG SCH (21:00)
[2023-04-24] MEDS: ASCORBIC ACID 500 MG TABLET GT SCH (21:00)
[2023-04-25] VITALS (15 sets, daily range): TEMP 97.8–97.9; O2SAT 94–99
[2023-04-25] MEDS: IPRATROPIUM BROMIDE 0.5 MG/2.5 ML NEBU NEB SCH ×6 (03:35→23:29)
[2023-04-25] MEDS: ALBUTEROL SULFATE 2.5 MG/3 ML NEBU NEB SCH ×6 (03:35→23:29)
[2023-04-25] MEDS: OMEPRAZOLE 20 MG CAPSULE.DR GT SCH (05:06)
[2023-04-25] MEDS: BACLOFEN 10 MG TABLET GT SCH ×5 (05:06→23:04)
[2023-04-25] MEDS: OMEGA-3 FATTY ACIDS/FISH OIL CAPSULE GT SCH ×2 (05:06→18:11)
[2023-04-25] MEDS: ARGININE/GLUTAMINE/CALCIUM BMB 1 EACH POWD.PACK GT SCH ×2 (05:06→18:11)
[2023-04-25] MEDS: PROTEIN SUPPLEMENT (PROSTAT) 30 ML LIQUID GT SCH ×3 (05:07→21:09)
[2023-04-25] MEDS: MIDODRINE HCL 5 MG TABLET GT SCH ×3 (05:07→21:09)
[2023-04-25] MEDS: GLUCERNA 1.2 1000ML LIQUID GT PRN (05:11)
[2023-04-25 07:12] LABS: CALCIUM 9.1 mg/dL (8.5-10.1); POTASSIUM 3.2 mmol/L (3.5-5.1)
[2023-04-25] MEDS: ACETAMINOPHEN 650 MG/20.3 ML LIQUID UDC GT SCH ×2 (08:45→20:30)
[2023-04-25] MEDS: ACIDOPHILUS/BULGARICUS CHEW TAB GT SCH ×2 (08:45→20:49)
[2023-04-25] MEDS: NITROFURANTOIN MACROCRYSTAL 100 MG CAPSULE GT SCH (08:46)
[2023-04-25] MEDS: levETIRAcetam 500 MG/5 ML LIQUID UDC GT SCH ×2 (08:46→20:51)
[2023-04-25] MEDS: REMEDY ESSENTIAL ZINC PASTE 113 GM TP SCH ×2 (09:00→20:56)
[2023-04-25] MEDS: VITAMINS A AND D 5 GM UD PKT TP SCH ×2 (09:00→20:56)
[2023-04-25] MEDS: MEDIHONEY= THERAHONEY 1.5 OZ TUBE TOP SCH ×4 (09:00→20:56)
[2023-04-25] MEDS: HYDROGEN PEROXIDE 3% 118 ML BOTTLE TP SCH ×2 (09:34→19:10)
[2023-04-25] MEDS: SERTRALINE HCL 25 MG TABLET GT SCH (12:15)
[2023-04-25] MEDS ORDERED: POTASSIUM CHLORIDE 10 MEQ TAB.PRT.SR XX ONE (12:30)
[2023-04-25] MEDS: MULTIVIT, IRON, MIN NO. 8, FA TABLET GT SCH (20:53)
[2023-04-25] MEDS: FOSFOMYCIN TROMETHAMINE 3 GM PACKET GT SCH (20:53)
[2023-04-25] MEDS: ASCORBIC ACID 500 MG TABLET GT SCH (20:54)
[2023-04-25] MEDS: ESTROGENS,CONJU VAGINAL CREAM 42.5 GM TUBE VG SCH (20:56)
[2023-04-25] MEDS: TEMAZEPAM 7.5 MG CAPSULE GT PRN (21:35)
[2023-04-26] VITALS (14 sets, daily range): TEMP 98.6–99.6; O2SAT 95–99
[2023-04-26] MEDS: ALBUTEROL SULFATE 2.5 MG/3 ML NEBU NEB SCH ×6 (03:34→23:06)
[2023-04-26] MEDS: IPRATROPIUM BROMIDE 0.5 MG/2.5 ML NEBU NEB SCH ×6 (03:34→23:06)
[2023-04-26] MEDS ORDERED: POTASSIUM CHLORIDE 10 MEQ TAB.PRT.SR XX ONE (04:00)
[2023-04-26] MEDS: ARGININE/GLUTAMINE/CALCIUM BMB 1 EACH POWD.PACK GT SCH ×2 (05:22→18:11)
[2023-04-26] MEDS: OMEPRAZOLE 20 MG CAPSULE.DR GT SCH (05:22)
[2023-04-26] MEDS: BACLOFEN 10 MG TABLET GT SCH ×3 (05:22→18:11)
[2023-04-26] MEDS: OMEGA-3 FATTY ACIDS/FISH OIL CAPSULE GT SCH ×2 (05:22→18:11)
[2023-04-26] MEDS: MIDODRINE HCL 5 MG TABLET GT SCH ×3 (05:23→21:52)
[2023-04-26] MEDS: PROTEIN SUPPLEMENT (PROSTAT) 30 ML LIQUID GT SCH ×3 (05:23→21:52)
[2023-04-26] MEDS: ACETAMINOPHEN 650 MG/20.3 ML LIQUID UDC GT SCH ×2 (08:30→20:30)
[2023-04-26] MEDS: ACIDOPHILUS/BULGARICUS CHEW TAB GT SCH ×2 (08:32→20:41)
[2023-04-26] MEDS: MEDIHONEY= THERAHONEY 1.5 OZ TUBE TOP SCH ×4 (08:33→20:41)
[2023-04-26] MEDS: levETIRAcetam 500 MG/5 ML LIQUID UDC GT SCH ×2 (08:33→20:41)
[2023-04-26] MEDS: NITROFURANTOIN MACROCRYSTAL 100 MG CAPSULE GT SCH (08:33)
[2023-04-26] MEDS: REMEDY ESSENTIAL ZINC PASTE 113 GM TP SCH ×2 (08:34→20:41)
[2023-04-26] MEDS: VITAMINS A AND D 5 GM UD PKT TP SCH ×2 (08:34→20:41)
[2023-04-26] MEDS: HYDROGEN PEROXIDE 3% 118 ML BOTTLE TP SCH ×2 (09:47→19:12)
[2023-04-26] MEDS: SERTRALINE HCL 25 MG TABLET GT SCH (12:01)
[2023-04-26] MEDS: GLUCERNA 1.2 1000ML LIQUID GT PRN (12:01)
[2023-04-26] MEDS: MULTIVIT, IRON, MIN NO. 8, FA TABLET GT SCH (20:41)
[2023-04-26] MEDS: ASCORBIC ACID 500 MG TABLET GT SCH (20:41)
[2023-04-26] MEDS: ESTROGENS,CONJU VAGINAL CREAM 42.5 GM TUBE VG SCH (20:42)
[2023-04-26] MEDS: TEMAZEPAM 7.5 MG CAPSULE GT PRN (20:44)
[2023-04-26] MEDS ORDERED: IV NORMAL SALINE 1000 ML BAG IV ONE (21:30)
[2023-04-26] MEDS ORDERED: POTASSIUM CHLORIDE 10 MEQ TAB.PRT.SR PO ONE (21:45)
[2023-04-27] VITALS (14 sets, daily range): TEMP 97.8–98.8; O2SAT 96–99
[2023-04-27] MEDS: BACLOFEN 10 MG TABLET GT SCH ×4 (00:37→17:47)
[2023-04-27] MEDS: ALBUTEROL SULFATE 2.5 MG/3 ML NEBU NEB SCH ×6 (03:10→23:30)
[2023-04-27] MEDS: IPRATROPIUM BROMIDE 0.5 MG/2.5 ML NEBU NEB SCH ×6 (03:10→23:30)
[2023-04-27] MEDS: OMEPRAZOLE 20 MG CAPSULE.DR GT SCH (05:41)
[2023-04-27] MEDS: OMEGA-3 FATTY ACIDS/FISH OIL CAPSULE GT SCH ×2 (05:41→17:44)
[2023-04-27] MEDS: ARGININE/GLUTAMINE/CALCIUM BMB 1 EACH POWD.PACK GT SCH ×2 (05:41→17:45)
[2023-04-27] MEDS: MIDODRINE HCL 5 MG TABLET GT SCH ×3 (05:42→21:28)
[2023-04-27] MEDS: PROTEIN SUPPLEMENT (PROSTAT) 30 ML LIQUID GT SCH ×3 (05:42→21:28)
[2023-04-27] MEDS ORDERED: IV NS 1000 ML 1,000 ML IV PRN (07:00)
[2023-04-27] MEDS: IV NS 1000 ML 1,000 ML IV SCH ×2 (07:08→17:00)
[2023-04-27] MEDS: HYDROGEN PEROXIDE 3% 118 ML BOTTLE TP SCH ×2 (07:21→21:40)
[2023-04-27] MEDS: ACETAMINOPHEN 650 MG/20.3 ML LIQUID UDC GT SCH ×2 (08:30→20:30)
[2023-04-27] MEDS: VITAMINS A AND D 5 GM UD PKT TP SCH ×2 (09:00→21:26)
[2023-04-27] MEDS: MEDIHONEY= THERAHONEY 1.5 OZ TUBE TOP SCH ×4 (09:00→21:26)
[2023-04-27] MEDS: NITROFURANTOIN MACROCRYSTAL 100 MG CAPSULE GT SCH (09:00)
[2023-04-27] MEDS: REMEDY ESSENTIAL ZINC PASTE 113 GM TP SCH ×2 (09:00→21:26)
[2023-04-27] MEDS: ACIDOPHILUS/BULGARICUS CHEW TAB GT SCH ×2 (09:00→21:26)
[2023-04-27] MEDS: levETIRAcetam 500 MG/5 ML LIQUID UDC GT SCH ×2 (09:00→21:26)
[2023-04-27] MEDS: SERTRALINE HCL 25 MG TABLET GT SCH (12:30)
[2023-04-27] MEDS: MULTIVIT, IRON, MIN NO. 8, FA TABLET GT SCH (21:26)
[2023-04-27] MEDS: ESTROGENS,CONJU VAGINAL CREAM 42.5 GM TUBE VG SCH (21:26)
[2023-04-27] MEDS: ASCORBIC ACID 500 MG TABLET GT SCH (21:26)
[2023-04-27] MEDS: TEMAZEPAM 7.5 MG CAPSULE GT PRN (21:29)
[2023-04-28] VITALS (13 sets, daily range): TEMP 98–101.1; O2SAT 97–99
[2023-04-28] MEDS: BACLOFEN 10 MG TABLET GT SCH ×4 (00:28→17:27)
[2023-04-28] MEDS: IPRATROPIUM BROMIDE 0.5 MG/2.5 ML NEBU NEB SCH ×6 (02:33→23:45)
[2023-04-28] MEDS: ALBUTEROL SULFATE 2.5 MG/3 ML NEBU NEB SCH ×6 (02:33→23:45)
[2023-04-28] MEDS: OMEPRAZOLE 20 MG CAPSULE.DR GT SCH (05:46)
[2023-04-28] MEDS: OMEGA-3 FATTY ACIDS/FISH OIL CAPSULE GT SCH ×2 (05:46→17:27)
[2023-04-28] MEDS: ARGININE/GLUTAMINE/CALCIUM BMB 1 EACH POWD.PACK GT SCH ×2 (05:46→17:27)
[2023-04-28] MEDS: MIDODRINE HCL 5 MG TABLET GT SCH ×3 (05:47→21:51)
[2023-04-28] MEDS: PROTEIN SUPPLEMENT (PROSTAT) 30 ML LIQUID GT SCH ×3 (05:47→21:53)
[2023-04-28 05:57] LABS: BASOPHILS # (AUTO) 0.1 K/UL (0.0-0.2); BASOPHILS % (AUTO) 0.8 % (0.0-2.0); EOSINOPHILS # (AUTO) 0.4 K/uL (0.0-0.7); EOSINOPHILS % (AUTO) 4.7 % (0.0-7.0); HEMATOCRIT 30.4 % (31.2-41.9); HEMOGLOBIN 9.2 g/dL (10.9-14.3); LYMPHOCYTES # (AUTO) 2.5 K/uL (0.8-4.8); LYMPHOCYTES % (AUTO) 30.4 % (20.5-51.5); MEAN CORPUSCULAR HEMOGLOBIN 24.2 uug (24.7-32.8); MEAN CORPUSCULAR HGB CONC 30 g/dL (32.3-35.6); MEAN CORPUSCULAR VOLUME 80.3 fL (75.5-95.3); MONOCYTES # (AUTO) 0.6 K/uL (0.1-1.30); NEUTROPHILS # (AUTO) 4.7 K/uL (1.8-8.9); NEUTROPHILS % (AUTO) 57.1 % (38.5-71.5); PLATELET COUNT (AUTO) 186 K/uL (179-408); RED BLOOD CELL COUNT(AUTO) 3.78 MIL/uL (3.63-4.92); RED CELL DISTRIBUTION WIDTH 21.5 % (12.3-17.7); WHITE BLOOD COUNT (AUTO) 8.2 K/uL (3.8-11.8)
[2023-04-28 06:00] LABS: DIFFERENTIAL COMMENT 1
[2023-04-28 06:12] LABS: CALCIUM 8.4 mg/dL (8.5-10.1); CREATININE 0.8 mg/dL (0.6-1.3); MAGNESIUM 2.6 mg/dL (1.8-2.4); PHOSPHOROUS 3.3 mg/dL (2.5-4.9); POTASSIUM 3.7 mmol/L (3.5-5.1)
[2023-04-28] MEDS: ACIDOPHILUS/BULGARICUS CHEW TAB GT SCH ×2 (08:32→21:52)
[2023-04-28] MEDS: ACETAMINOPHEN 650 MG/20.3 ML LIQUID UDC GT SCH ×2 (08:33→20:30)
[2023-04-28] MEDS: MEDIHONEY= THERAHONEY 1.5 OZ TUBE TOP SCH ×4 (08:35→21:53)
[2023-04-28] MEDS: NITROFURANTOIN MACROCRYSTAL 100 MG CAPSULE GT SCH (08:35)
[2023-04-28] MEDS: levETIRAcetam 500 MG/5 ML LIQUID UDC GT SCH ×2 (08:35→21:52)
[2023-04-28] MEDS: REMEDY ESSENTIAL ZINC PASTE 113 GM TP SCH ×2 (08:36→21:53)
[2023-04-28] MEDS: VITAMINS A AND D 5 GM UD PKT TP SCH ×2 (08:36→21:53)
[2023-04-28] MEDS: HYDROGEN PEROXIDE 3% 118 ML BOTTLE TP SCH ×2 (09:15→20:16)
[2023-04-28] MEDS: SERTRALINE HCL 25 MG TABLET GT SCH (12:00)
[2023-04-28] MEDS: MULTIVIT, IRON, MIN NO. 8, FA TABLET GT SCH (21:52)
[2023-04-28] MEDS: ASCORBIC ACID 500 MG TABLET GT SCH (21:52)
[2023-04-28] MEDS: ESTROGENS,CONJU VAGINAL CREAM 42.5 GM TUBE VG SCH (21:53)
[2023-04-29] VITALS (16 sets, daily range): TEMP 97.7–101.4; O2SAT 97–99
[2023-04-29] MEDS: GLUCERNA 1.2 1000ML LIQUID GT PRN (01:33)
[2023-04-29] MEDS: IPRATROPIUM BROMIDE 0.5 MG/2.5 ML NEBU NEB SCH ×6 (03:26→23:08)
[2023-04-29] MEDS: ALBUTEROL SULFATE 2.5 MG/3 ML NEBU NEB SCH ×6 (03:26→23:08)
[2023-04-29] MEDS: ARGININE/GLUTAMINE/CALCIUM BMB 1 EACH POWD.PACK GT SCH ×2 (05:15→18:06)
[2023-04-29] MEDS: OMEGA-3 FATTY ACIDS/FISH OIL CAPSULE GT SCH ×2 (05:15→18:06)
[2023-04-29] MEDS: OMEPRAZOLE 20 MG CAPSULE.DR GT SCH (05:17)
[2023-04-29] MEDS: PROTEIN SUPPLEMENT (PROSTAT) 30 ML LIQUID GT SCH ×3 (05:17→22:06)
[2023-04-29] MEDS: BACLOFEN 10 MG TABLET GT SCH ×4 (05:17→18:06)
[2023-04-29] MEDS: MIDODRINE HCL 5 MG TABLET GT SCH ×3 (05:22→22:00)
[2023-04-29] MEDS: ACETAMINOPHEN 650 MG/20.3 ML LIQUID UDC GT SCH ×2 (09:02→20:45)
[2023-04-29] MEDS: ACIDOPHILUS/BULGARICUS CHEW TAB GT SCH ×2 (09:03→20:45)
[2023-04-29] MEDS: NITROFURANTOIN MACROCRYSTAL 100 MG CAPSULE GT SCH (09:04)
[2023-04-29] MEDS: VITAMINS A AND D 5 GM UD PKT TP SCH ×2 (09:05→21:00)
[2023-04-29] MEDS: REMEDY ESSENTIAL ZINC PASTE 113 GM TP SCH ×2 (09:05→21:00)
[2023-04-29] MEDS: MEDIHONEY= THERAHONEY 1.5 OZ TUBE TOP SCH ×4 (09:05→21:00)
[2023-04-29] MEDS: levETIRAcetam 500 MG/5 ML LIQUID UDC GT SCH ×2 (09:06→20:46)
[2023-04-29] MEDS: HYDROGEN PEROXIDE 3% 118 ML BOTTLE TP SCH ×2 (09:35→19:54)
[2023-04-29] MEDS: SERTRALINE HCL 25 MG TABLET GT SCH (12:00)
[2023-04-29] MEDS: MEROPENEM 1 G in IV NORMAL SALINE 100 ML IV SCH (17:00)
[2023-04-29] MEDS: MULTIVIT, IRON, MIN NO. 8, FA TABLET GT SCH (20:46)
[2023-04-29] MEDS: ASCORBIC ACID 500 MG TABLET GT SCH (20:46)
[2023-04-29] MEDS: ESTROGENS,CONJU VAGINAL CREAM 42.5 GM TUBE VG SCH (21:00)
[2023-04-30] VITALS (14 sets, daily range): TEMP 97.5–98.8; O2SAT 98–99
[2023-04-30] MEDS: MEROPENEM 1 G in IV NORMAL SALINE 100 ML IV SCH ×3 (01:00→17:00)
[2023-04-30] MEDS: ALBUTEROL SULFATE 2.5 MG/3 ML NEBU NEB SCH ×6 (03:09→23:06)
[2023-04-30] MEDS: IPRATROPIUM BROMIDE 0.5 MG/2.5 ML NEBU NEB SCH ×6 (03:09→23:06)
[2023-04-30] MEDS: OMEPRAZOLE 20 MG CAPSULE.DR GT SCH (06:37)
[2023-04-30] MEDS: ARGININE/GLUTAMINE/CALCIUM BMB 1 EACH POWD.PACK GT SCH ×2 (06:37→17:31)
[2023-04-30] MEDS: OMEGA-3 FATTY ACIDS/FISH OIL CAPSULE GT SCH ×2 (06:37→17:31)
[2023-04-30] MEDS: BACLOFEN 10 MG TABLET GT SCH ×4 (06:37→17:31)
[2023-04-30] MEDS: MIDODRINE HCL 5 MG TABLET GT SCH ×3 (06:38→21:25)
[2023-04-30] MEDS: PROTEIN SUPPLEMENT (PROSTAT) 30 ML LIQUID GT SCH ×3 (06:38→21:24)
[2023-04-30] MEDS: GLUCERNA 1.2 1000ML LIQUID GT PRN (06:39)
[2023-04-30] MEDS: ACETAMINOPHEN 650 MG/20.3 ML LIQUID UDC GT SCH ×2 (08:36→21:17)
[2023-04-30] MEDS: ACIDOPHILUS/BULGARICUS CHEW TAB GT SCH ×2 (08:36→21:18)
[2023-04-30] MEDS: VITAMINS A AND D 5 GM UD PKT TP SCH ×2 (08:37→21:24)
[2023-04-30] MEDS: MEDIHONEY= THERAHONEY 1.5 OZ TUBE TOP SCH ×4 (08:37→21:24)
[2023-04-30] MEDS: REMEDY ESSENTIAL ZINC PASTE 113 GM TP SCH ×2 (08:37→21:24)
[2023-04-30] MEDS: levETIRAcetam 500 MG/5 ML LIQUID UDC GT SCH ×2 (08:37→21:20)
[2023-04-30] MEDS: NITROFURANTOIN MACROCRYSTAL 100 MG CAPSULE GT SCH (08:37)
[2023-04-30] MEDS: HYDROGEN PEROXIDE 3% 118 ML BOTTLE TP SCH ×2 (09:36→19:15)
[2023-04-30] MEDS: SERTRALINE HCL 25 MG TABLET GT SCH (12:26)
[2023-04-30] MEDS: MULTIVIT, IRON, MIN NO. 8, FA TABLET GT SCH (21:20)
[2023-04-30] MEDS: ASCORBIC ACID 500 MG TABLET GT SCH (21:21)
[2023-04-30] MEDS: ESTROGENS,CONJU VAGINAL CREAM 42.5 GM TUBE VG SCH (21:24)
[2023-05-01] VITALS (14 sets, daily range): TEMP 99.5–99.8; O2SAT 98–99
[2023-05-01] MEDS: MEROPENEM 1 G in IV NORMAL SALINE 100 ML IV SCH ×3 (00:20→17:29)
[2023-05-01] MEDS: BACLOFEN 10 MG TABLET GT SCH ×4 (00:58→17:43)
[2023-05-01] MEDS: IPRATROPIUM BROMIDE 0.5 MG/2.5 ML NEBU NEB SCH ×6 (03:00→23:30)
[2023-05-01] MEDS: ALBUTEROL SULFATE 2.5 MG/3 ML NEBU NEB SCH ×6 (03:00→23:30)
[2023-05-01] MEDS: OMEPRAZOLE 20 MG CAPSULE.DR GT SCH (06:14)
[2023-05-01] MEDS: ARGININE/GLUTAMINE/CALCIUM BMB 1 EACH POWD.PACK GT SCH ×2 (06:14→17:43)
[2023-05-01] MEDS: OMEGA-3 FATTY ACIDS/FISH OIL CAPSULE GT SCH ×2 (06:14→17:21)
[2023-05-01] MEDS: MIDODRINE HCL 5 MG TABLET GT SCH ×3 (06:15→22:00)
[2023-05-01] MEDS: PROTEIN SUPPLEMENT (PROSTAT) 30 ML LIQUID GT SCH ×3 (06:15→22:07)
[2023-05-01] MEDS: ACETAMINOPHEN 650 MG/20.3 ML LIQUID UDC GT SCH ×2 (09:16→20:30)
[2023-05-01] MEDS: ACIDOPHILUS/BULGARICUS CHEW TAB GT SCH ×2 (09:16→21:00)
[2023-05-01] MEDS: levETIRAcetam 500 MG/5 ML LIQUID UDC GT SCH ×2 (09:17→21:00)
[2023-05-01] MEDS: MEDIHONEY= THERAHONEY 1.5 OZ TUBE TOP SCH ×4 (09:17→21:00)
[2023-05-01] MEDS: REMEDY ESSENTIAL ZINC PASTE 113 GM TP SCH ×2 (09:18→21:00)
[2023-05-01] MEDS: VITAMINS A AND D 5 GM UD PKT TP SCH ×2 (09:18→21:00)
[2023-05-01] MEDS: HYDROGEN PEROXIDE 3% 118 ML BOTTLE TP SCH ×2 (09:22→21:00)
[2023-05-01] MEDS: SERTRALINE HCL 25 MG TABLET GT SCH (11:38)
[2023-05-01] MEDS: GLUCERNA 1.2 1000ML LIQUID GT PRN (12:03)
[2023-05-01] MEDS: ESTROGENS,CONJU VAGINAL CREAM 42.5 GM TUBE VG SCH (21:00)
[2023-05-01] MEDS: MULTIVIT, IRON, MIN NO. 8, FA TABLET GT SCH (21:00)
[2023-05-01] MEDS: ASCORBIC ACID 500 MG TABLET GT SCH (21:00)
[2023-05-01] MEDS: TEMAZEPAM 7.5 MG CAPSULE GT PRN (22:00)
[2023-05-02] VITALS (15 sets, daily range): BP systolic 106; BP diastolic 49; TEMP 98.1–100.1; O2SAT 97–99
[2023-05-02] MEDS: BACLOFEN 10 MG TABLET GT SCH ×5 (00:36→23:04)
[2023-05-02] MEDS: MEROPENEM 1 G in IV NORMAL SALINE 100 ML IV SCH ×3 (01:02→17:00)
[2023-05-02] MEDS: IPRATROPIUM BROMIDE 0.5 MG/2.5 ML NEBU NEB SCH ×6 (04:09→23:31)
[2023-05-02] MEDS: ALBUTEROL SULFATE 2.5 MG/3 ML NEBU NEB SCH ×6 (04:09→23:31)
[2023-05-02] MEDS: PROTEIN SUPPLEMENT (PROSTAT) 30 ML LIQUID GT SCH ×3 (05:37→22:24)
[2023-05-02] MEDS: ARGININE/GLUTAMINE/CALCIUM BMB 1 EACH POWD.PACK GT SCH ×2 (05:37→17:41)
[2023-05-02] MEDS: OMEGA-3 FATTY ACIDS/FISH OIL CAPSULE GT SCH ×2 (05:37→17:41)
[2023-05-02] MEDS: MIDODRINE HCL 5 MG TABLET GT SCH ×3 (05:37→22:00)
[2023-05-02] MEDS: OMEPRAZOLE 20 MG CAPSULE.DR GT SCH (05:37)
[2023-05-02] MEDS: levETIRAcetam 500 MG/5 ML LIQUID UDC GT SCH ×2 (08:50→20:49)
[2023-05-02] MEDS: ACETAMINOPHEN 650 MG/20.3 ML LIQUID UDC GT SCH ×2 (08:50→20:30)
[2023-05-02] MEDS: ACIDOPHILUS/BULGARICUS CHEW TAB GT SCH ×2 (08:50→20:49)
[2023-05-02] MEDS: VITAMINS A AND D 5 GM UD PKT TP SCH ×2 (08:51→20:49)
[2023-05-02] MEDS: MEDIHONEY= THERAHONEY 1.5 OZ TUBE TOP SCH ×4 (08:51→20:49)
[2023-05-02] MEDS: REMEDY ESSENTIAL ZINC PASTE 113 GM TP SCH ×2 (08:51→20:49)
[2023-05-02] MEDS: HYDROGEN PEROXIDE 3% 118 ML BOTTLE TP SCH ×2 (09:30→21:02)
[2023-05-02] MEDS: SERTRALINE HCL 25 MG TABLET GT SCH (12:39)
[2023-05-02] MEDS: GLUCERNA 1.2 1000ML LIQUID GT PRN (13:50)
[2023-05-02] MEDS: MULTIVIT, IRON, MIN NO. 8, FA TABLET GT SCH (20:49)
[2023-05-02] MEDS: ASCORBIC ACID 500 MG TABLET GT SCH (20:49)
[2023-05-02] MEDS: ESTROGENS,CONJU VAGINAL CREAM 42.5 GM TUBE VG SCH (20:49)
[2023-05-02] MEDS: TEMAZEPAM 7.5 MG CAPSULE GT PRN (20:50)
[2023-05-03] VITALS (14 sets, daily range): TEMP 98.3–98.7; O2SAT 98–99
[2023-05-03] MEDS: MEROPENEM 1 G in IV NORMAL SALINE 100 ML IV SCH ×3 (00:57→17:00)
[2023-05-03] MEDS: IPRATROPIUM BROMIDE 0.5 MG/2.5 ML NEBU NEB SCH ×6 (03:49→23:03)
[2023-05-03] MEDS: ALBUTEROL SULFATE 2.5 MG/3 ML NEBU NEB SCH ×6 (03:49→23:03)
[2023-05-03] MEDS: HYDROCODONE/APAP 10-325 MG TABLET GT PRN (04:00)
[2023-05-03] MEDS: ARGININE/GLUTAMINE/CALCIUM BMB 1 EACH POWD.PACK GT SCH ×2 (05:12→17:06)
[2023-05-03] MEDS: OMEGA-3 FATTY ACIDS/FISH OIL CAPSULE GT SCH ×2 (05:12→17:07)
[2023-05-03] MEDS: BACLOFEN 10 MG TABLET GT SCH ×3 (05:12→17:07)
[2023-05-03] MEDS: PROTEIN SUPPLEMENT (PROSTAT) 30 ML LIQUID GT SCH ×3 (05:12→21:05)
[2023-05-03] MEDS: OMEPRAZOLE 20 MG CAPSULE.DR GT SCH (05:12)
[2023-05-03] MEDS: MIDODRINE HCL 5 MG TABLET GT SCH ×2 (05:14→13:08)
[2023-05-03] MEDS: ACIDOPHILUS/BULGARICUS CHEW TAB GT SCH ×2 (08:48→21:04)
[2023-05-03] MEDS: levETIRAcetam 500 MG/5 ML LIQUID UDC GT SCH ×2 (08:49→21:04)
[2023-05-03] MEDS: MEDIHONEY= THERAHONEY 1.5 OZ TUBE TOP SCH ×2 (08:50)
[2023-05-03] MEDS: REMEDY ESSENTIAL ZINC PASTE 113 GM TP SCH ×2 (08:51→21:04)
[2023-05-03] MEDS: VITAMINS A AND D 5 GM UD PKT TP SCH ×2 (08:51→21:04)
[2023-05-03] MEDS: ACETAMINOPHEN 650 MG/20.3 ML LIQUID UDC GT SCH ×2 (08:52→20:30)
[2023-05-03] MEDS: HYDROGEN PEROXIDE 3% 118 ML BOTTLE TP SCH ×2 (09:59→21:01)
[2023-05-03] MEDS: SERTRALINE HCL 25 MG TABLET GT SCH (12:00)
[2023-05-03] MEDS: GLUCERNA 1.2 1000ML LIQUID GT PRN (16:47)
[2023-05-03] MEDS: MIDODRINE HCL 10 MG TABLET GT SCH (21:04)
[2023-05-03] MEDS: ESTROGENS,CONJU VAGINAL CREAM 42.5 GM TUBE VG SCH (21:04)
[2023-05-03] MEDS: MULTIVIT, IRON, MIN NO. 8, FA TABLET GT SCH (21:04)
[2023-05-03] MEDS: ASCORBIC ACID 500 MG TABLET GT SCH (21:04)
[2023-05-04] VITALS (14 sets, daily range): TEMP 98.3–99.1; O2SAT 98–99
[2023-05-04] MEDS: BACLOFEN 10 MG TABLET GT SCH ×4 (00:08→17:19)
[2023-05-04] MEDS: IPRATROPIUM BROMIDE 0.5 MG/2.5 ML NEBU NEB SCH ×6 (04:17→23:31)
[2023-05-04] MEDS: ALBUTEROL SULFATE 2.5 MG/3 ML NEBU NEB SCH ×6 (04:17→23:31)
[2023-05-04] MEDS: OMEGA-3 FATTY ACIDS/FISH OIL CAPSULE GT SCH ×2 (05:28→17:19)
[2023-05-04] MEDS: ARGININE/GLUTAMINE/CALCIUM BMB 1 EACH POWD.PACK GT SCH ×2 (05:28→17:19)
[2023-05-04] MEDS: PROTEIN SUPPLEMENT (PROSTAT) 30 ML LIQUID GT SCH ×3 (05:30→21:18)
[2023-05-04] MEDS: MIDODRINE HCL 10 MG TABLET GT SCH ×3 (05:30→21:18)
[2023-05-04] MEDS: OMEPRAZOLE 20 MG CAPSULE.DR GT SCH (05:30)
[2023-05-04] MEDS: HYDROGEN PEROXIDE 3% 118 ML BOTTLE TP SCH ×2 (08:05→20:08)
[2023-05-04] MEDS: ACETAMINOPHEN 650 MG/20.3 ML LIQUID UDC GT SCH ×2 (08:15→20:30)
[2023-05-04] MEDS: ACIDOPHILUS/BULGARICUS CHEW TAB GT SCH ×2 (08:15→21:17)
[2023-05-04] MEDS: VITAMINS A AND D 5 GM UD PKT TP SCH ×2 (08:16→21:17)
[2023-05-04] MEDS: levETIRAcetam 500 MG/5 ML LIQUID UDC GT SCH ×2 (08:16→21:17)
[2023-05-04] MEDS: REMEDY ESSENTIAL ZINC PASTE 113 GM TP SCH ×2 (08:16→21:17)
[2023-05-04] MEDS: SERTRALINE HCL 25 MG TABLET GT SCH (12:36)
[2023-05-04] MEDS: GLUCERNA 1.2 1000ML LIQUID GT PRN (18:52)
[2023-05-04] MEDS: MULTIVIT, IRON, MIN NO. 8, FA TABLET GT SCH (21:17)
[2023-05-04] MEDS: ESTROGENS,CONJU VAGINAL CREAM 42.5 GM TUBE VG SCH (21:17)
[2023-05-04] MEDS: ASCORBIC ACID 500 MG TABLET GT SCH (21:17)
[2023-05-04] MEDS: TEMAZEPAM 7.5 MG CAPSULE GT PRN (21:19)
[2023-05-05] VITALS (14 sets, daily range): TEMP 98.5–98.7; O2SAT 96–99
[2023-05-05] MEDS: BACLOFEN 10 MG TABLET GT SCH ×4 (00:19→17:29)
[2023-05-05] MEDS: IPRATROPIUM BROMIDE 0.5 MG/2.5 ML NEBU NEB SCH ×6 (03:36→23:03)
[2023-05-05] MEDS: ALBUTEROL SULFATE 2.5 MG/3 ML NEBU NEB SCH ×6 (03:36→23:03)
[2023-05-05] MEDS: MIDODRINE HCL 10 MG TABLET GT SCH ×3 (05:43→21:30)
[2023-05-05] MEDS: PROTEIN SUPPLEMENT (PROSTAT) 30 ML LIQUID GT SCH ×3 (05:43→21:30)
[2023-05-05] MEDS: OMEGA-3 FATTY ACIDS/FISH OIL CAPSULE GT SCH ×2 (05:43→17:29)
[2023-05-05] MEDS: OMEPRAZOLE 20 MG CAPSULE.DR GT SCH (05:43)
[2023-05-05] MEDS: ARGININE/GLUTAMINE/CALCIUM BMB 1 EACH POWD.PACK GT SCH ×2 (05:43→17:29)
[2023-05-05] MEDS: HYDROGEN PEROXIDE 3% 118 ML BOTTLE TP SCH ×2 (08:08→19:13)
[2023-05-05] MEDS: ACIDOPHILUS/BULGARICUS CHEW TAB GT SCH ×2 (08:35→21:29)
[2023-05-05] MEDS: ACETAMINOPHEN 650 MG/20.3 ML LIQUID UDC GT SCH ×2 (08:35→20:30)
[2023-05-05] MEDS: VITAMINS A AND D 5 GM UD PKT TP SCH ×2 (08:36→21:29)
[2023-05-05] MEDS: NITROFURANTOIN MACROCRYSTAL 100 MG CAPSULE GT SCH (08:36)
[2023-05-05] MEDS: levETIRAcetam 500 MG/5 ML LIQUID UDC GT SCH ×2 (08:36→21:29)
[2023-05-05] MEDS: REMEDY ESSENTIAL ZINC PASTE 113 GM TP SCH ×2 (08:36→21:29)
[2023-05-05] MEDS: SERTRALINE HCL 25 MG TABLET GT SCH (11:52)
[2023-05-05] MEDS: MULTIVIT, IRON, MIN NO. 8, FA TABLET GT SCH (21:29)
[2023-05-05] MEDS: ASCORBIC ACID 500 MG TABLET GT SCH (21:29)
[2023-05-05] MEDS: ESTROGENS,CONJU VAGINAL CREAM 42.5 GM TUBE VG SCH (21:29)
[2023-05-06] VITALS (14 sets, daily range): TEMP 97.6–98.2; O2SAT 97–99
[2023-05-06] MEDS: IPRATROPIUM BROMIDE 0.5 MG/2.5 ML NEBU NEB SCH ×6 (03:31→23:03)
[2023-05-06] MEDS: ALBUTEROL SULFATE 2.5 MG/3 ML NEBU NEB SCH ×6 (03:31→23:03)
[2023-05-06] MEDS: GLUCERNA 1.2 1000ML LIQUID GT PRN (04:00)
[2023-05-06] MEDS: ARGININE/GLUTAMINE/CALCIUM BMB 1 EACH POWD.PACK GT SCH ×2 (05:08→17:54)
[2023-05-06] MEDS: OMEGA-3 FATTY ACIDS/FISH OIL CAPSULE GT SCH ×2 (05:08→17:54)
[2023-05-06] MEDS: BACLOFEN 10 MG TABLET GT SCH ×4 (05:08→17:55)
[2023-05-06] MEDS: MIDODRINE HCL 10 MG TABLET GT SCH ×3 (05:09→21:36)
[2023-05-06] MEDS: OMEPRAZOLE 20 MG CAPSULE.DR GT SCH (05:09)
[2023-05-06] MEDS: PROTEIN SUPPLEMENT (PROSTAT) 30 ML LIQUID GT SCH ×3 (05:09→21:36)
[2023-05-06] MEDS: HYDROGEN PEROXIDE 3% 118 ML BOTTLE TP SCH ×2 (08:32→19:10)
[2023-05-06] MEDS: ACETAMINOPHEN 650 MG/20.3 ML LIQUID UDC GT SCH ×2 (08:44→20:53)
[2023-05-06] MEDS: ACIDOPHILUS/BULGARICUS CHEW TAB GT SCH ×2 (08:45→20:54)
[2023-05-06] MEDS: levETIRAcetam 500 MG/5 ML LIQUID UDC GT SCH ×2 (08:46→20:55)
[2023-05-06] MEDS: REMEDY ESSENTIAL ZINC PASTE 113 GM TP SCH ×2 (08:47→20:58)
[2023-05-06] MEDS: VITAMINS A AND D 5 GM UD PKT TP SCH ×2 (08:47→20:58)
[2023-05-06] MEDS: NITROFURANTOIN MACROCRYSTAL 100 MG CAPSULE GT SCH (08:47)
[2023-05-06] MEDS: SERTRALINE HCL 25 MG TABLET GT SCH (12:00)
[2023-05-06] MEDS: MEDIHONEY= THERAHONEY 1.5 OZ TUBE TOP SCH ×2 (20:56→21:35)
[2023-05-06] MEDS: MULTIVIT, IRON, MIN NO. 8, FA TABLET GT SCH (20:56)
[2023-05-06] MEDS: ASCORBIC ACID 500 MG TABLET GT SCH (20:56)
[2023-05-06] MEDS: ESTROGENS,CONJU VAGINAL CREAM 42.5 GM TUBE VG SCH (20:59)
[2023-05-07] VITALS (14 sets, daily range): TEMP 98.4–98.6; O2SAT 97–99
[2023-05-07] MEDS: IPRATROPIUM BROMIDE 0.5 MG/2.5 ML NEBU NEB SCH ×5 (03:31→19:30)
[2023-05-07] MEDS: ALBUTEROL SULFATE 2.5 MG/3 ML NEBU NEB SCH ×5 (03:32→19:30)
[2023-05-07] MEDS: PROTEIN SUPPLEMENT (PROSTAT) 30 ML LIQUID GT SCH ×3 (06:04→21:47)
[2023-05-07] MEDS: OMEGA-3 FATTY ACIDS/FISH OIL CAPSULE GT SCH ×2 (06:04→17:14)
[2023-05-07] MEDS: MIDODRINE HCL 10 MG TABLET GT SCH ×3 (06:04→21:47)
[2023-05-07] MEDS: ARGININE/GLUTAMINE/CALCIUM BMB 1 EACH POWD.PACK GT SCH ×2 (06:04→17:14)
[2023-05-07] MEDS: OMEPRAZOLE 20 MG CAPSULE.DR GT SCH (06:04)
[2023-05-07] MEDS: BACLOFEN 10 MG TABLET GT SCH ×4 (06:04→17:19)
[2023-05-07] MEDS: ACETAMINOPHEN 650 MG/20.3 ML LIQUID UDC GT SCH ×2 (08:30→20:32)
[2023-05-07] MEDS: ACIDOPHILUS/BULGARICUS CHEW TAB GT SCH ×2 (08:31→20:32)
[2023-05-07] MEDS: levETIRAcetam 500 MG/5 ML LIQUID UDC GT SCH ×2 (08:32→20:32)
[2023-05-07] MEDS: NITROFURANTOIN MACROCRYSTAL 100 MG CAPSULE GT SCH (08:33)
[2023-05-07] MEDS: REMEDY ESSENTIAL ZINC PASTE 113 GM TP SCH ×2 (08:34→20:33)
[2023-05-07] MEDS: MEDIHONEY= THERAHONEY 1.5 OZ TUBE TOP SCH ×4 (08:34→20:33)
[2023-05-07] MEDS: VITAMINS A AND D 5 GM UD PKT TP SCH ×2 (08:35→20:33)
[2023-05-07] MEDS: HYDROGEN PEROXIDE 3% 118 ML BOTTLE TP SCH ×2 (09:56→21:13)
[2023-05-07] MEDS: SERTRALINE HCL 25 MG TABLET GT SCH (11:53)
[2023-05-07] MEDS: GLUCERNA 1.2 1000ML LIQUID GT PRN (12:03)
[2023-05-07] MEDS: MULTIVIT, IRON, MIN NO. 8, FA TABLET GT SCH (20:33)
[2023-05-07] MEDS: ASCORBIC ACID 500 MG TABLET GT SCH (20:33)
[2023-05-07] MEDS: ESTROGENS,CONJU VAGINAL CREAM 42.5 GM TUBE VG SCH (20:33)
[2023-05-08] VITALS (14 sets, daily range): TEMP 98.8–98.9; O2SAT 97–99
[2023-05-08] MEDS: ALBUTEROL SULFATE 2.5 MG/3 ML NEBU NEB SCH ×7 (00:06→22:55)
[2023-05-08] MEDS: IPRATROPIUM BROMIDE 0.5 MG/2.5 ML NEBU NEB SCH ×7 (00:06→22:55)
[2023-05-08] MEDS: OMEGA-3 FATTY ACIDS/FISH OIL CAPSULE GT SCH ×2 (05:48→18:04)
[2023-05-08] MEDS: ARGININE/GLUTAMINE/CALCIUM BMB 1 EACH POWD.PACK GT SCH ×2 (05:48→18:04)
[2023-05-08] MEDS: BACLOFEN 10 MG TABLET GT SCH ×4 (05:48→18:04)
[2023-05-08] MEDS: OMEPRAZOLE 20 MG CAPSULE.DR GT SCH (05:49)
[2023-05-08] MEDS: PROTEIN SUPPLEMENT (PROSTAT) 30 ML LIQUID GT SCH ×3 (05:49→21:25)
[2023-05-08] MEDS: MIDODRINE HCL 10 MG TABLET GT SCH ×3 (06:00→21:26)
[2023-05-08 06:11] LABS: CALCIUM 9.9 mg/dL (8.5-10.1); CREATININE 0.8 mg/dL (0.6-1.3); POTASSIUM 4.2 mmol/L (3.5-5.1)
[2023-05-08] MEDS: HYDROGEN PEROXIDE 3% 118 ML BOTTLE TP SCH ×2 (08:48→19:10)
[2023-05-08] MEDS: ACETAMINOPHEN 650 MG/20.3 ML LIQUID UDC GT SCH ×2 (09:19→21:24)
[2023-05-08] MEDS: ACIDOPHILUS/BULGARICUS CHEW TAB GT SCH ×2 (09:20→21:24)
[2023-05-08] MEDS: NITROFURANTOIN MACROCRYSTAL 100 MG CAPSULE GT SCH (09:22)
[2023-05-08] MEDS: levETIRAcetam 500 MG/5 ML LIQUID UDC GT SCH ×2 (09:22→21:30)
[2023-05-08] MEDS: REMEDY ESSENTIAL ZINC PASTE 113 GM TP SCH ×2 (09:23→21:25)
[2023-05-08] MEDS: MEDIHONEY= THERAHONEY 1.5 OZ TUBE TOP SCH ×4 (09:23→21:25)
[2023-05-08] MEDS: VITAMINS A AND D 5 GM UD PKT TP SCH ×2 (09:23→21:25)
[2023-05-08] MEDS: SERTRALINE HCL 25 MG TABLET GT SCH (12:09)
[2023-05-08] MEDS: GLUCERNA 1.2 1000ML LIQUID GT PRN (18:06)
[2023-05-08] MEDS: ASCORBIC ACID 500 MG TABLET GT SCH (21:24)
[2023-05-08] MEDS: MULTIVIT, IRON, MIN NO. 8, FA TABLET GT SCH (21:24)
[2023-05-08] MEDS: ESTROGENS,CONJU VAGINAL CREAM 42.5 GM TUBE VG SCH (21:25)
[2023-05-09] VITALS (14 sets, daily range): TEMP 98.4–98.6; O2SAT 97–99
[2023-05-09] MEDS: IPRATROPIUM BROMIDE 0.5 MG/2.5 ML NEBU NEB SCH ×6 (04:01→23:30)
[2023-05-09] MEDS: ALBUTEROL SULFATE 2.5 MG/3 ML NEBU NEB SCH ×6 (04:01→23:30)
[2023-05-09] MEDS: OMEGA-3 FATTY ACIDS/FISH OIL CAPSULE GT SCH ×2 (05:36→17:32)
[2023-05-09] MEDS: ARGININE/GLUTAMINE/CALCIUM BMB 1 EACH POWD.PACK GT SCH ×2 (05:36→17:32)
[2023-05-09] MEDS: MIDODRINE HCL 10 MG TABLET GT SCH ×4 (05:36→21:42)
[2023-05-09] MEDS: BACLOFEN 10 MG TABLET GT SCH ×4 (05:36→17:32)
[2023-05-09] MEDS: OMEPRAZOLE 20 MG CAPSULE.DR GT SCH (05:36)
[2023-05-09] MEDS: PROTEIN SUPPLEMENT (PROSTAT) 30 ML LIQUID GT SCH ×3 (05:36→21:37)
[2023-05-09] MEDS: HYDROGEN PEROXIDE 3% 118 ML BOTTLE TP SCH ×2 (07:18→19:08)
[2023-05-09] MEDS: ACETAMINOPHEN 650 MG/20.3 ML LIQUID UDC GT SCH ×2 (08:30→21:28)
[2023-05-09] MEDS: ACIDOPHILUS/BULGARICUS CHEW TAB GT SCH ×2 (09:00→21:30)
[2023-05-09] MEDS: levETIRAcetam 500 MG/5 ML LIQUID UDC GT SCH ×2 (09:00→21:31)
[2023-05-09] MEDS: MEDIHONEY= THERAHONEY 1.5 OZ TUBE TOP SCH ×4 (09:00→21:35)
[2023-05-09] MEDS: REMEDY ESSENTIAL ZINC PASTE 113 GM TP SCH ×2 (09:00→21:35)
[2023-05-09] MEDS: VITAMINS A AND D 5 GM UD PKT TP SCH ×2 (09:00→21:36)
[2023-05-09] MEDS: NITROFURANTOIN MACROCRYSTAL 100 MG CAPSULE GT SCH (09:00)
[2023-05-09] MEDS: SERTRALINE HCL 25 MG TABLET GT SCH (12:00)
[2023-05-09] MEDS: FOSFOMYCIN TROMETHAMINE 3 GM PACKET GT SCH (21:32)
[2023-05-09] MEDS: ASCORBIC ACID 500 MG TABLET GT SCH (21:35)
[2023-05-09] MEDS: MULTIVIT, IRON, MIN NO. 8, FA TABLET GT SCH (21:35)
[2023-05-09] MEDS: ESTROGENS,CONJU VAGINAL CREAM 42.5 GM TUBE VG SCH (21:36)
[2023-05-09] MEDS: TEMAZEPAM 7.5 MG CAPSULE GT PRN (21:38)
[2023-05-10] VITALS (14 sets, daily range): TEMP 97.8–98.1; O2SAT 97–99
[2023-05-10] MEDS: ALBUTEROL SULFATE 2.5 MG/3 ML NEBU NEB SCH ×6 (03:30→23:10)
[2023-05-10] MEDS: IPRATROPIUM BROMIDE 0.5 MG/2.5 ML NEBU NEB SCH ×6 (03:30→23:10)
[2023-05-10] MEDS: GLUCERNA 1.2 1000ML LIQUID GT PRN (04:04)
[2023-05-10] MEDS: BACLOFEN 10 MG TABLET GT SCH ×4 (05:16→17:20)
[2023-05-10] MEDS: OMEGA-3 FATTY ACIDS/FISH OIL CAPSULE GT SCH ×2 (05:16→17:20)
[2023-05-10] MEDS: ARGININE/GLUTAMINE/CALCIUM BMB 1 EACH POWD.PACK GT SCH ×2 (05:16→17:20)
[2023-05-10] MEDS: OMEPRAZOLE 20 MG CAPSULE.DR GT SCH (05:17)
[2023-05-10] MEDS: MIDODRINE HCL 10 MG TABLET GT SCH ×3 (05:17→21:14)
[2023-05-10] MEDS: PROTEIN SUPPLEMENT (PROSTAT) 30 ML LIQUID GT SCH ×3 (05:17→21:15)
[2023-05-10] MEDS: HYDROGEN PEROXIDE 3% 118 ML BOTTLE TP SCH ×2 (08:21→19:25)
[2023-05-10] MEDS: ACIDOPHILUS/BULGARICUS CHEW TAB GT SCH ×2 (08:43→20:48)
[2023-05-10] MEDS: ACETAMINOPHEN 650 MG/20.3 ML LIQUID UDC GT SCH ×2 (08:44→20:47)
[2023-05-10] MEDS: NITROFURANTOIN MACROCRYSTAL 100 MG CAPSULE GT SCH (08:45)
[2023-05-10] MEDS: levETIRAcetam 500 MG/5 ML LIQUID UDC GT SCH ×2 (08:46→20:48)
[2023-05-10] MEDS: MEDIHONEY= THERAHONEY 1.5 OZ TUBE TOP SCH ×4 (08:46→20:49)
[2023-05-10] MEDS: REMEDY ESSENTIAL ZINC PASTE 113 GM TP SCH ×2 (08:47→20:49)
[2023-05-10] MEDS: VITAMINS A AND D 5 GM UD PKT TP SCH ×2 (08:47→20:49)
[2023-05-10] MEDS: SERTRALINE HCL 25 MG TABLET GT SCH (12:00)
[2023-05-10] MEDS: MULTIVIT, IRON, MIN NO. 8, FA TABLET GT SCH (20:49)
[2023-05-10] MEDS: ASCORBIC ACID 500 MG TABLET GT SCH (20:49)
[2023-05-10] MEDS: ESTROGENS,CONJU VAGINAL CREAM 42.5 GM TUBE VG SCH (20:49)
[2023-05-11] VITALS (13 sets, daily range): TEMP 98.4–98.6; O2SAT 97–99
[2023-05-11] MEDS: ALBUTEROL SULFATE 2.5 MG/3 ML NEBU NEB SCH ×6 (04:17→23:01)
[2023-05-11] MEDS: IPRATROPIUM BROMIDE 0.5 MG/2.5 ML NEBU NEB SCH ×6 (04:17→23:01)
[2023-05-11] MEDS: ARGININE/GLUTAMINE/CALCIUM BMB 1 EACH POWD.PACK GT SCH ×2 (05:15→17:13)
[2023-05-11] MEDS: OMEGA-3 FATTY ACIDS/FISH OIL CAPSULE GT SCH ×2 (05:15→17:12)
[2023-05-11] MEDS: BACLOFEN 10 MG TABLET GT SCH ×4 (05:18→17:14)
[2023-05-11] MEDS: PROTEIN SUPPLEMENT (PROSTAT) 30 ML LIQUID GT SCH ×3 (05:19→22:34)
[2023-05-11] MEDS: OMEPRAZOLE 20 MG CAPSULE.DR GT SCH (05:19)
[2023-05-11] MEDS: MIDODRINE HCL 10 MG TABLET GT SCH ×3 (05:19→22:34)
[2023-05-11] MEDS: GLUCERNA 1.2 1000ML LIQUID GT PRN (06:04)
[2023-05-11] MEDS: HYDROGEN PEROXIDE 3% 118 ML BOTTLE TP SCH ×2 (07:32→19:10)
[2023-05-11] MEDS: ACETAMINOPHEN 650 MG/20.3 ML LIQUID UDC GT SCH ×2 (08:30→20:36)
[2023-05-11] MEDS: ACIDOPHILUS/BULGARICUS CHEW TAB GT SCH ×2 (09:47→20:36)
[2023-05-11] MEDS: levETIRAcetam 500 MG/5 ML LIQUID UDC GT SCH ×2 (09:49→20:37)
[2023-05-11] MEDS: NITROFURANTOIN MACROCRYSTAL 100 MG CAPSULE GT SCH (09:49)
[2023-05-11] MEDS: MEDIHONEY= THERAHONEY 1.5 OZ TUBE TOP SCH ×4 (09:50→20:38)
[2023-05-11] MEDS: REMEDY ESSENTIAL ZINC PASTE 113 GM TP SCH ×2 (09:50→20:38)
[2023-05-11] MEDS: VITAMINS A AND D 5 GM UD PKT TP SCH ×2 (09:51→20:38)
[2023-05-11] MEDS: SERTRALINE HCL 25 MG TABLET GT SCH (11:40)
[2023-05-11] MEDS: MULTIVIT, IRON, MIN NO. 8, FA TABLET GT SCH (20:37)
[2023-05-11] MEDS: ASCORBIC ACID 500 MG TABLET GT SCH (20:37)
[2023-05-11] MEDS: ESTROGENS,CONJU VAGINAL CREAM 42.5 GM TUBE VG SCH (20:38)
[2023-05-12] VITALS (15 sets, daily range): TEMP 98.2–98.5; O2SAT 97–99
[2023-05-12] MEDS: IPRATROPIUM BROMIDE 0.5 MG/2.5 ML NEBU NEB SCH ×6 (03:30→23:02)
[2023-05-12] MEDS: ALBUTEROL SULFATE 2.5 MG/3 ML NEBU NEB SCH ×6 (03:30→23:02)
[2023-05-12] MEDS: OMEGA-3 FATTY ACIDS/FISH OIL CAPSULE GT SCH ×2 (05:49→17:40)
[2023-05-12] MEDS: MIDODRINE HCL 10 MG TABLET GT SCH ×3 (05:49→21:00)
[2023-05-12] MEDS: OMEPRAZOLE 20 MG CAPSULE.DR GT SCH (05:49)
[2023-05-12] MEDS: ARGININE/GLUTAMINE/CALCIUM BMB 1 EACH POWD.PACK GT SCH ×2 (05:49→17:40)
[2023-05-12] MEDS: PROTEIN SUPPLEMENT (PROSTAT) 30 ML LIQUID GT SCH ×3 (05:49→21:00)
[2023-05-12] MEDS: BACLOFEN 10 MG TABLET GT SCH ×4 (05:49→17:41)
[2023-05-12] MEDS: HYDROGEN PEROXIDE 3% 118 ML BOTTLE TP SCH ×2 (07:27→21:06)
[2023-05-12] MEDS: ACETAMINOPHEN 650 MG/20.3 ML LIQUID UDC GT SCH ×2 (09:22→20:50)
[2023-05-12] MEDS: ACIDOPHILUS/BULGARICUS CHEW TAB GT SCH ×2 (09:22→20:50)
[2023-05-12] MEDS: NITROFURANTOIN MACROCRYSTAL 100 MG CAPSULE GT SCH (09:23)
[2023-05-12] MEDS: levETIRAcetam 500 MG/5 ML LIQUID UDC GT SCH ×2 (09:23→21:00)
[2023-05-12] MEDS: MEDIHONEY= THERAHONEY 1.5 OZ TUBE TOP SCH ×4 (09:25→20:51)
[2023-05-12] MEDS: REMEDY ESSENTIAL ZINC PASTE 113 GM TP SCH ×2 (09:26→20:51)
[2023-05-12] MEDS: VITAMINS A AND D 5 GM UD PKT TP SCH ×2 (09:26→20:51)
[2023-05-12 10:56] LABS: ADENOVIRUS Not Detected (Not Detected); CORONAVIRUS 229E Not Detected (Not Detected); CORONAVIRUS HKU1 Not Detected (Not Detected); CORONAVIRUS NL63 Not Detected (Not Detected); CORONAVIRUS OC43 Not Detected (Not Detected); NP BORDETELLA PERTUSIS Not Detected (Not Detected); NP CHLAMYDOPHILA PNEUMONIAE Not Detected (Not Detected); NP HUMAN METAPNEUMOVIRUS Not Detected (Not Detected); NP HUMAN RHINO/ENTERO VIRUS Not Detected (Not Detected); NP INFLUENZA A Not Detected (Not Detected); NP INFLUENZA A/H1 Not Detected (Not Detected); NP INFLUENZA A/H1-2009 Not Detected (Not Detected); NP INFLUENZA A/H3 Not Detected (Not Detected); NP INFLUENZA B Not Detected (Not Detected); NP MYCOPLASMA PNEUMONIAE Not Detected (Not Detected); NP PARAINFLUENZA 1 Not Detected (Not Detected); NP PARAINFLUENZA 2 Not Detected (Not Detected); NP PARAINFLUENZA 3 Not Detected (Not Detected); NP PARAINFLUENZA 4 Not Detected (Not Detected); NP RESPIRATORY SYNCYTIAL VIRUS Not Detected (Not Detected)
[2023-05-12] MEDS: SERTRALINE HCL 25 MG TABLET GT SCH (12:04)
[2023-05-12] MEDS: GLUCERNA 1.2 1000ML LIQUID GT PRN (12:05)
[2023-05-12] MEDS: ASCORBIC ACID 500 MG TABLET GT SCH (20:51)
[2023-05-12] MEDS: MULTIVIT, IRON, MIN NO. 8, FA TABLET GT SCH (20:51)
[2023-05-12] MEDS: ESTROGENS,CONJU VAGINAL CREAM 42.5 GM TUBE VG SCH (20:51)
[2023-05-13] VITALS (14 sets, daily range): TEMP 97.5–98.2; O2SAT 96–99
[2023-05-13] MEDS: IPRATROPIUM BROMIDE 0.5 MG/2.5 ML NEBU NEB SCH ×6 (03:00→23:31)
[2023-05-13] MEDS: ALBUTEROL SULFATE 2.5 MG/3 ML NEBU NEB SCH ×6 (03:00→23:31)
[2023-05-13] MEDS: BACLOFEN 10 MG TABLET GT SCH ×4 (05:52→17:03)
[2023-05-13] MEDS: OMEGA-3 FATTY ACIDS/FISH OIL CAPSULE GT SCH ×2 (05:52→17:03)
[2023-05-13] MEDS: ARGININE/GLUTAMINE/CALCIUM BMB 1 EACH POWD.PACK GT SCH ×2 (05:52→17:03)
[2023-05-13] MEDS: MIDODRINE HCL 10 MG TABLET GT SCH ×3 (05:52→21:44)
[2023-05-13] MEDS: OMEPRAZOLE 20 MG CAPSULE.DR GT SCH (05:53)
[2023-05-13] MEDS: PROTEIN SUPPLEMENT (PROSTAT) 30 ML LIQUID GT SCH ×3 (05:53→21:44)
[2023-05-13] MEDS: HYDROGEN PEROXIDE 3% 118 ML BOTTLE TP SCH ×2 (08:16→21:33)
[2023-05-13] MEDS: ACIDOPHILUS/BULGARICUS CHEW TAB GT SCH ×2 (08:58→21:43)
[2023-05-13] MEDS: ACETAMINOPHEN 650 MG/20.3 ML LIQUID UDC GT SCH ×2 (08:58→20:30)
[2023-05-13] MEDS: levETIRAcetam 500 MG/5 ML LIQUID UDC GT SCH ×2 (08:59→21:43)
[2023-05-13] MEDS: MEDIHONEY= THERAHONEY 1.5 OZ TUBE TOP SCH ×4 (09:00→21:43)
[2023-05-13] MEDS: REMEDY ESSENTIAL ZINC PASTE 113 GM TP SCH ×2 (09:00→21:43)
[2023-05-13] MEDS: NITROFURANTOIN MACROCRYSTAL 100 MG CAPSULE GT SCH (09:00)
[2023-05-13] MEDS: VITAMINS A AND D 5 GM UD PKT TP SCH ×2 (09:00→21:43)
[2023-05-13] MEDS: SERTRALINE HCL 25 MG TABLET GT SCH (12:06)
[2023-05-13] MEDS: ESTROGENS,CONJU VAGINAL CREAM 42.5 GM TUBE VG SCH (21:43)
[2023-05-13] MEDS: ASCORBIC ACID 500 MG TABLET GT SCH (21:43)
[2023-05-13] MEDS: MULTIVIT, IRON, MIN NO. 8, FA TABLET GT SCH (21:43)
[2023-05-14] VITALS (14 sets, daily range): TEMP 97–98.5; O2SAT 99
[2023-05-14] MEDS: ALBUTEROL SULFATE 2.5 MG/3 ML NEBU NEB SCH ×6 (03:30→23:19)
[2023-05-14] MEDS: IPRATROPIUM BROMIDE 0.5 MG/2.5 ML NEBU NEB SCH ×6 (03:30→23:19)
[2023-05-14] MEDS: GLUCERNA 1.2 1000ML LIQUID GT PRN (04:00)
[2023-05-14] MEDS: MIDODRINE HCL 10 MG TABLET GT SCH ×3 (06:00→21:31)
[2023-05-14] MEDS: OMEPRAZOLE 20 MG CAPSULE.DR GT SCH (06:42)
[2023-05-14] MEDS: OMEGA-3 FATTY ACIDS/FISH OIL CAPSULE GT SCH ×2 (06:42→17:40)
[2023-05-14] MEDS: ARGININE/GLUTAMINE/CALCIUM BMB 1 EACH POWD.PACK GT SCH ×2 (06:42→17:40)
[2023-05-14] MEDS: BACLOFEN 10 MG TABLET GT SCH ×4 (06:42→17:41)
[2023-05-14] MEDS: PROTEIN SUPPLEMENT (PROSTAT) 30 ML LIQUID GT SCH ×3 (06:42→21:32)
[2023-05-14] MEDS: HYDROGEN PEROXIDE 3% 118 ML BOTTLE TP SCH ×2 (07:54→19:09)
[2023-05-14] MEDS: ACETAMINOPHEN 650 MG/20.3 ML LIQUID UDC GT SCH ×2 (09:06→20:30)
[2023-05-14] MEDS: ACIDOPHILUS/BULGARICUS CHEW TAB GT SCH ×2 (09:07→21:31)
[2023-05-14] MEDS: NITROFURANTOIN MACROCRYSTAL 100 MG CAPSULE GT SCH (09:08)
[2023-05-14] MEDS: levETIRAcetam 500 MG/5 ML LIQUID UDC GT SCH ×2 (09:08→21:31)
[2023-05-14] MEDS: VITAMINS A AND D 5 GM UD PKT TP SCH ×2 (09:09→21:31)
[2023-05-14] MEDS: MEDIHONEY= THERAHONEY 1.5 OZ TUBE TOP SCH ×4 (09:09→21:31)
[2023-05-14] MEDS: REMEDY ESSENTIAL ZINC PASTE 113 GM TP SCH ×2 (09:09→21:31)
[2023-05-14] MEDS: SERTRALINE HCL 25 MG TABLET GT SCH (12:13)
[2023-05-14] MEDS: ESTROGENS,CONJU VAGINAL CREAM 42.5 GM TUBE VG SCH (21:31)
[2023-05-14] MEDS: MULTIVIT, IRON, MIN NO. 8, FA TABLET GT SCH (21:31)
[2023-05-14] MEDS: ASCORBIC ACID 500 MG TABLET GT SCH (21:31)
[2023-05-15] VITALS (15 sets, daily range): TEMP 98–99.1; O2SAT 99
[2023-05-15] MEDS: IPRATROPIUM BROMIDE 0.5 MG/2.5 ML NEBU NEB SCH ×6 (04:06→23:37)
[2023-05-15] MEDS: ALBUTEROL SULFATE 2.5 MG/3 ML NEBU NEB SCH ×6 (04:06→23:37)
[2023-05-15] MEDS: MIDODRINE HCL 10 MG TABLET GT SCH ×3 (06:00→21:45)
[2023-05-15] MEDS: OMEGA-3 FATTY ACIDS/FISH OIL CAPSULE GT SCH ×2 (06:27→17:26)
[2023-05-15] MEDS: BACLOFEN 10 MG TABLET GT SCH ×4 (06:27→17:26)
[2023-05-15] MEDS: ARGININE/GLUTAMINE/CALCIUM BMB 1 EACH POWD.PACK GT SCH ×2 (06:27→17:26)
[2023-05-15] MEDS: OMEPRAZOLE 20 MG CAPSULE.DR GT SCH (06:28)
[2023-05-15] MEDS: PROTEIN SUPPLEMENT (PROSTAT) 30 ML LIQUID GT SCH ×3 (06:28→21:46)
[2023-05-15] MEDS: HYDROGEN PEROXIDE 3% 118 ML BOTTLE TP SCH ×2 (07:29→21:18)
[2023-05-15] MEDS: ACETAMINOPHEN 650 MG/20.3 ML LIQUID UDC GT SCH ×2 (08:46→20:30)
[2023-05-15] MEDS: ACIDOPHILUS/BULGARICUS CHEW TAB GT SCH ×2 (08:47→21:45)
[2023-05-15] MEDS: levETIRAcetam 500 MG/5 ML LIQUID UDC GT SCH ×2 (08:47→21:45)
[2023-05-15] MEDS: REMEDY ESSENTIAL ZINC PASTE 113 GM TP SCH ×2 (08:48→21:45)
[2023-05-15] MEDS: NITROFURANTOIN MACROCRYSTAL 100 MG CAPSULE GT SCH (08:48)
[2023-05-15] MEDS: MEDIHONEY= THERAHONEY 1.5 OZ TUBE TOP SCH ×4 (08:48→21:45)
[2023-05-15] MEDS: VITAMINS A AND D 5 GM UD PKT TP SCH ×2 (08:48→21:45)
[2023-05-15] MEDS: SERTRALINE HCL 25 MG TABLET GT SCH (11:58)
[2023-05-15] MEDS: GLUCERNA 1.2 1000ML LIQUID GT PRN (12:01)
[2023-05-15] MEDS: MULTIVIT, IRON, MIN NO. 8, FA TABLET GT SCH (21:45)
[2023-05-15] MEDS: ASCORBIC ACID 500 MG TABLET GT SCH (21:45)
[2023-05-15] MEDS: ESTROGENS,CONJU VAGINAL CREAM 42.5 GM TUBE VG SCH (21:45)
[2023-05-16] VITALS (14 sets, daily range): TEMP 97.6–98.1; O2SAT 97–99
[2023-05-16] MEDS: BACLOFEN 10 MG TABLET GT SCH ×4 (00:03→18:20)
[2023-05-16] MEDS: ALBUTEROL SULFATE 2.5 MG/3 ML NEBU NEB SCH ×6 (03:35→23:36)
[2023-05-16] MEDS: IPRATROPIUM BROMIDE 0.5 MG/2.5 ML NEBU NEB SCH ×6 (03:35→23:36)
[2023-05-16] MEDS: ARGININE/GLUTAMINE/CALCIUM BMB 1 EACH POWD.PACK GT SCH ×2 (05:50→18:18)
[2023-05-16] MEDS: OMEGA-3 FATTY ACIDS/FISH OIL CAPSULE GT SCH ×2 (05:50→18:18)
[2023-05-16] MEDS: MIDODRINE HCL 10 MG TABLET GT SCH ×3 (05:51→21:21)
[2023-05-16] MEDS: PROTEIN SUPPLEMENT (PROSTAT) 30 ML LIQUID GT SCH ×3 (05:51→21:21)
[2023-05-16] MEDS: OMEPRAZOLE 20 MG CAPSULE.DR GT SCH (05:51)
[2023-05-16] MEDS: HYDROGEN PEROXIDE 3% 118 ML BOTTLE TP SCH ×2 (07:13→20:57)
[2023-05-16] MEDS: ACETAMINOPHEN 650 MG/20.3 ML LIQUID UDC GT SCH ×2 (08:30→20:30)
[2023-05-16] MEDS: ACIDOPHILUS/BULGARICUS CHEW TAB GT SCH ×2 (09:40→21:15)
[2023-05-16] MEDS: MEDIHONEY= THERAHONEY 1.5 OZ TUBE TOP SCH ×4 (09:40→21:20)
[2023-05-16] MEDS: levETIRAcetam 500 MG/5 ML LIQUID UDC GT SCH ×2 (09:40→21:17)
[2023-05-16] MEDS: NITROFURANTOIN MACROCRYSTAL 100 MG CAPSULE GT SCH (09:40)
[2023-05-16] MEDS: VITAMINS A AND D 5 GM UD PKT TP SCH ×2 (09:41→21:20)
[2023-05-16] MEDS: REMEDY ESSENTIAL ZINC PASTE 113 GM TP SCH ×2 (09:41→21:20)
[2023-05-16] MEDS: SERTRALINE HCL 25 MG TABLET GT SCH (12:00)
[2023-05-16] MEDS: GLUCERNA 1.2 1000ML LIQUID GT PRN (18:25)
[2023-05-16] MEDS: FOSFOMYCIN TROMETHAMINE 3 GM PACKET GT SCH (21:17)
[2023-05-16] MEDS: ASCORBIC ACID 500 MG TABLET GT SCH (21:18)
[2023-05-16] MEDS: MULTIVIT, IRON, MIN NO. 8, FA TABLET GT SCH (21:18)
[2023-05-16] MEDS: ESTROGENS,CONJU VAGINAL CREAM 42.5 GM TUBE VG SCH (21:20)
[2023-05-16] MEDS: TEMAZEPAM 7.5 MG CAPSULE GT PRN (21:26)
[2023-05-17] VITALS (12 sets, daily range): TEMP 98.9–99; O2SAT 96–99
[2023-05-17] MEDS: IPRATROPIUM BROMIDE 0.5 MG/2.5 ML NEBU NEB SCH ×5 (03:28→19:05)
[2023-05-17] MEDS: ALBUTEROL SULFATE 2.5 MG/3 ML NEBU NEB SCH ×5 (03:28→19:05)
[2023-05-17] MEDS: ARGININE/GLUTAMINE/CALCIUM BMB 1 EACH POWD.PACK GT SCH ×2 (05:24→18:01)
[2023-05-17] MEDS: OMEGA-3 FATTY ACIDS/FISH OIL CAPSULE GT SCH ×2 (05:24→18:01)
[2023-05-17] MEDS: BACLOFEN 10 MG TABLET GT SCH ×5 (05:24→23:45)
[2023-05-17] MEDS: MIDODRINE HCL 10 MG TABLET GT SCH ×3 (05:25→21:10)
[2023-05-17] MEDS: PROTEIN SUPPLEMENT (PROSTAT) 30 ML LIQUID GT SCH ×3 (05:25→21:11)
[2023-05-17] MEDS: OMEPRAZOLE 20 MG CAPSULE.DR GT SCH (05:25)
[2023-05-17] MEDS: ACIDOPHILUS/BULGARICUS CHEW TAB GT SCH ×2 (08:34→20:58)
[2023-05-17] MEDS: ACETAMINOPHEN 650 MG/20.3 ML LIQUID UDC GT SCH ×2 (08:34→20:30)
[2023-05-17] MEDS: levETIRAcetam 500 MG/5 ML LIQUID UDC GT SCH ×2 (08:34→20:58)
[2023-05-17] MEDS: MEDIHONEY= THERAHONEY 1.5 OZ TUBE TOP SCH ×4 (08:35→20:58)
[2023-05-17] MEDS: VITAMINS A AND D 5 GM UD PKT TP SCH ×2 (08:35→20:58)
[2023-05-17] MEDS: REMEDY ESSENTIAL ZINC PASTE 113 GM TP SCH ×2 (08:35→20:58)
[2023-05-17] MEDS: NITROFURANTOIN MACROCRYSTAL 100 MG CAPSULE GT SCH (08:35)
[2023-05-17] MEDS: HYDROGEN PEROXIDE 3% 118 ML BOTTLE TP SCH ×2 (09:35→21:18)
[2023-05-17] MEDS: SERTRALINE HCL 25 MG TABLET GT SCH (12:00)
[2023-05-17] MEDS: ESTROGENS,CONJU VAGINAL CREAM 42.5 GM TUBE VG SCH (20:58)
[2023-05-17] MEDS: ASCORBIC ACID 500 MG TABLET GT SCH (20:58)
[2023-05-17] MEDS: MULTIVIT, IRON, MIN NO. 8, FA TABLET GT SCH (20:58)
[2023-05-17] MEDS: TEMAZEPAM 7.5 MG CAPSULE GT PRN (21:00)
[2023-05-18] VITALS (13 sets, daily range): TEMP 97.6–98.8; O2SAT 97–99
[2023-05-18] MEDS: GLUCERNA 1.2 1000ML LIQUID GT PRN (05:11)
[2023-05-18] MEDS: ARGININE/GLUTAMINE/CALCIUM BMB 1 EACH POWD.PACK GT SCH ×2 (05:37→17:07)
[2023-05-18] MEDS: BACLOFEN 10 MG TABLET GT SCH ×4 (05:37→23:08)
[2023-05-18] MEDS: OMEGA-3 FATTY ACIDS/FISH OIL CAPSULE GT SCH ×2 (05:37→17:06)
[2023-05-18] MEDS: OMEPRAZOLE 20 MG CAPSULE.DR GT SCH (05:38)
[2023-05-18] MEDS: MIDODRINE HCL 10 MG TABLET GT SCH ×3 (05:38→21:58)
[2023-05-18] MEDS: PROTEIN SUPPLEMENT (PROSTAT) 30 ML LIQUID GT SCH ×3 (05:39→21:59)
[2023-05-18] MEDS: ALBUTEROL SULFATE 2.5 MG/3 ML NEBU NEB SCH ×5 (07:35→23:17)
[2023-05-18] MEDS: IPRATROPIUM BROMIDE 0.5 MG/2.5 ML NEBU NEB SCH ×5 (07:35→23:17)
[2023-05-18] MEDS: ACIDOPHILUS/BULGARICUS CHEW TAB GT SCH ×2 (08:46→20:20)
[2023-05-18] MEDS: ACETAMINOPHEN 650 MG/20.3 ML LIQUID UDC GT SCH ×2 (08:51→20:20)
[2023-05-18] MEDS: NITROFURANTOIN MACROCRYSTAL 100 MG CAPSULE GT SCH (08:53)
[2023-05-18] MEDS: MEDIHONEY= THERAHONEY 1.5 OZ TUBE TOP SCH ×4 (08:53→20:21)
[2023-05-18] MEDS: VITAMINS A AND D 5 GM UD PKT TP SCH ×2 (08:54→20:21)
[2023-05-18] MEDS: levETIRAcetam 500 MG/5 ML LIQUID UDC GT SCH ×2 (08:54→20:20)
[2023-05-18] MEDS: REMEDY ESSENTIAL ZINC PASTE 113 GM TP SCH ×2 (08:54→20:21)
[2023-05-18] MEDS: HYDROGEN PEROXIDE 3% 118 ML BOTTLE TP SCH ×2 (09:00→21:00)
[2023-05-18] MEDS: SERTRALINE HCL 25 MG TABLET GT SCH (12:00)
[2023-05-18] MEDS: ASCORBIC ACID 500 MG TABLET GT SCH (20:20)
[2023-05-18] MEDS: MULTIVIT, IRON, MIN NO. 8, FA TABLET GT SCH (20:20)
[2023-05-18] MEDS: ESTROGENS,CONJU VAGINAL CREAM 42.5 GM TUBE VG SCH (20:21)
[2023-05-18] MEDS: TEMAZEPAM 7.5 MG CAPSULE GT PRN (23:08)
[2023-05-19] VITALS (14 sets, daily range): TEMP 97.5–97.6; O2SAT 98–99
[2023-05-19] MEDS: IPRATROPIUM BROMIDE 0.5 MG/2.5 ML NEBU NEB SCH ×6 (03:24→23:18)
[2023-05-19] MEDS: ALBUTEROL SULFATE 2.5 MG/3 ML NEBU NEB SCH ×6 (03:24→23:30)
[2023-05-19] MEDS: MIDODRINE HCL 10 MG TABLET GT SCH ×3 (06:00→21:54)
[2023-05-19] MEDS: ARGININE/GLUTAMINE/CALCIUM BMB 1 EACH POWD.PACK GT SCH ×2 (06:37→17:02)
[2023-05-19] MEDS: OMEGA-3 FATTY ACIDS/FISH OIL CAPSULE GT SCH ×2 (06:37→17:02)
[2023-05-19] MEDS: BACLOFEN 10 MG TABLET GT SCH ×3 (06:37→17:02)
[2023-05-19] MEDS: PROTEIN SUPPLEMENT (PROSTAT) 30 ML LIQUID GT SCH ×3 (06:38→21:54)
[2023-05-19] MEDS: OMEPRAZOLE 20 MG CAPSULE.DR GT SCH (06:38)
[2023-05-19] MEDS: HYDROGEN PEROXIDE 3% 118 ML BOTTLE TP SCH ×2 (08:25→20:16)
[2023-05-19] MEDS: ACIDOPHILUS/BULGARICUS CHEW TAB GT SCH ×2 (08:59→21:00)
[2023-05-19] MEDS: ACETAMINOPHEN 650 MG/20.3 ML LIQUID UDC GT SCH ×2 (08:59→20:30)
[2023-05-19] MEDS: NITROFURANTOIN MACROCRYSTAL 100 MG CAPSULE GT SCH (09:00)
[2023-05-19] MEDS: levETIRAcetam 500 MG/5 ML LIQUID UDC GT SCH ×2 (09:01→21:52)
[2023-05-19] MEDS: REMEDY ESSENTIAL ZINC PASTE 113 GM TP SCH ×2 (09:02→21:53)
[2023-05-19] MEDS: MEDIHONEY= THERAHONEY 1.5 OZ TUBE TOP SCH ×4 (09:02→21:53)
[2023-05-19] MEDS: VITAMINS A AND D 5 GM UD PKT TP SCH ×2 (09:02→21:53)
[2023-05-19] MEDS: GLUCERNA 1.2 1000ML LIQUID GT PRN (13:42)
[2023-05-19] MEDS: ASCORBIC ACID 500 MG TABLET GT SCH (21:52)
[2023-05-19] MEDS: MULTIVIT, IRON, MIN NO. 8, FA TABLET GT SCH (21:52)
[2023-05-19] MEDS: ESTROGENS,CONJU VAGINAL CREAM 42.5 GM TUBE VG SCH (21:53)
[2023-05-20] VITALS (14 sets, daily range): TEMP 97.7–99.7; O2SAT 98–99
[2023-05-20] MEDS: ALBUTEROL SULFATE 2.5 MG/3 ML NEBU NEB SCH ×6 (03:02→23:02)
[2023-05-20] MEDS: IPRATROPIUM BROMIDE 0.5 MG/2.5 ML NEBU NEB SCH ×6 (03:02→23:02)
[2023-05-20] MEDS: OMEGA-3 FATTY ACIDS/FISH OIL CAPSULE GT SCH ×2 (05:49→18:21)
[2023-05-20] MEDS: ARGININE/GLUTAMINE/CALCIUM BMB 1 EACH POWD.PACK GT SCH ×2 (05:49→18:21)
[2023-05-20] MEDS: BACLOFEN 10 MG TABLET GT SCH ×4 (05:50→18:21)
[2023-05-20] MEDS: OMEPRAZOLE 20 MG CAPSULE.DR GT SCH (05:51)
[2023-05-20] MEDS: PROTEIN SUPPLEMENT (PROSTAT) 30 ML LIQUID GT SCH ×3 (05:51→22:00)
[2023-05-20] MEDS: MIDODRINE HCL 10 MG TABLET GT SCH ×3 (05:51→20:40)
[2023-05-20] MEDS: HYDROGEN PEROXIDE 3% 118 ML BOTTLE TP SCH ×2 (09:10→19:21)
[2023-05-20] MEDS: ACETAMINOPHEN 650 MG/20.3 ML LIQUID UDC GT SCH ×2 (09:30→20:38)
[2023-05-20] MEDS: levETIRAcetam 500 MG/5 ML LIQUID UDC GT SCH ×2 (09:38→20:39)
[2023-05-20] MEDS: ACIDOPHILUS/BULGARICUS CHEW TAB GT SCH ×2 (09:38→20:38)
[2023-05-20] MEDS: NITROFURANTOIN MACROCRYSTAL 100 MG CAPSULE GT SCH (09:39)
[2023-05-20] MEDS: VITAMINS A AND D 5 GM UD PKT TP SCH ×2 (09:39→20:39)
[2023-05-20] MEDS: MEDIHONEY= THERAHONEY 1.5 OZ TUBE TOP SCH ×4 (09:39→20:39)
[2023-05-20] MEDS: REMEDY ESSENTIAL ZINC PASTE 113 GM TP SCH ×2 (09:39→20:39)
[2023-05-20] MEDS: GLUCERNA 1.2 1000ML LIQUID GT PRN (14:21)
[2023-05-20] MEDS: ASCORBIC ACID 500 MG TABLET GT SCH (20:39)
[2023-05-20] MEDS: MULTIVIT, IRON, MIN NO. 8, FA TABLET GT SCH (20:39)
[2023-05-20] MEDS: ESTROGENS,CONJU VAGINAL CREAM 42.5 GM TUBE VG SCH (20:40)
[2023-05-21] VITALS (12 sets, daily range): TEMP 98.6–100.3; O2SAT 96–99
[2023-05-21] MEDS: IPRATROPIUM BROMIDE 0.5 MG/2.5 ML NEBU NEB SCH ×6 (03:14→23:30)
[2023-05-21] MEDS: ALBUTEROL SULFATE 2.5 MG/3 ML NEBU NEB SCH ×6 (03:14→23:30)
[2023-05-21] MEDS: OMEGA-3 FATTY ACIDS/FISH OIL CAPSULE GT SCH ×2 (05:04→17:17)
[2023-05-21] MEDS: MIDODRINE HCL 10 MG TABLET GT SCH ×3 (05:04→20:15)
[2023-05-21] MEDS: ARGININE/GLUTAMINE/CALCIUM BMB 1 EACH POWD.PACK GT SCH ×2 (05:04→17:17)
[2023-05-21] MEDS: PROTEIN SUPPLEMENT (PROSTAT) 30 ML LIQUID GT SCH ×3 (05:04→22:06)
[2023-05-21] MEDS: OMEPRAZOLE 20 MG CAPSULE.DR GT SCH (05:04)
[2023-05-21] MEDS: BACLOFEN 10 MG TABLET GT SCH ×4 (05:13→17:18)
[2023-05-21] MEDS: ACETAMINOPHEN 650 MG/20.3 ML LIQUID UDC GT SCH ×2 (08:49→20:14)
[2023-05-21] MEDS: ACIDOPHILUS/BULGARICUS CHEW TAB GT SCH ×2 (08:50→20:17)
[2023-05-21] MEDS: MEDIHONEY= THERAHONEY 1.5 OZ TUBE TOP SCH ×4 (08:51→20:16)
[2023-05-21] MEDS: REMEDY ESSENTIAL ZINC PASTE 113 GM TP SCH ×2 (08:51→20:16)
[2023-05-21] MEDS: levETIRAcetam 500 MG/5 ML LIQUID UDC GT SCH ×2 (08:51→20:15)
[2023-05-21] MEDS: VITAMINS A AND D 5 GM UD PKT TP SCH ×2 (08:51→20:16)
[2023-05-21] MEDS: NITROFURANTOIN MACROCRYSTAL 100 MG CAPSULE GT SCH (08:51)
[2023-05-21] MEDS: HYDROGEN PEROXIDE 3% 118 ML BOTTLE TP SCH ×2 (09:00→19:26)
[2023-05-21] MEDS: GLUCERNA 1.2 1000ML LIQUID GT PRN (17:48)
[2023-05-21] MEDS: ESTROGENS,CONJU VAGINAL CREAM 42.5 GM TUBE VG SCH (20:17)
[2023-05-21] MEDS: ASCORBIC ACID 500 MG TABLET GT SCH (20:17)
[2023-05-21] MEDS: MULTIVIT, IRON, MIN NO. 8, FA TABLET GT SCH (20:19)
[2023-05-21] MEDS: HYDROCODONE/APAP 10-325 MG TABLET GT PRN (22:13)
[2023-05-22] VITALS (15 sets, daily range): TEMP 97.7–100.3; O2SAT 97–99
[2023-05-22] MEDS: ALBUTEROL SULFATE 2.5 MG/3 ML NEBU NEB SCH ×6 (03:30→23:02)
[2023-05-22] MEDS: IPRATROPIUM BROMIDE 0.5 MG/2.5 ML NEBU NEB SCH ×6 (03:30→23:02)
[2023-05-22] MEDS: HYDROCODONE/APAP 10-325 MG TABLET GT PRN (05:01)
[2023-05-22] MEDS: BACLOFEN 10 MG TABLET GT SCH ×4 (05:02→18:10)
[2023-05-22] MEDS: OMEGA-3 FATTY ACIDS/FISH OIL CAPSULE GT SCH ×2 (05:02→18:10)
[2023-05-22] MEDS: ARGININE/GLUTAMINE/CALCIUM BMB 1 EACH POWD.PACK GT SCH ×2 (05:02→18:10)
[2023-05-22] MEDS: MIDODRINE HCL 10 MG TABLET GT SCH ×3 (05:03→21:06)
[2023-05-22] MEDS: PROTEIN SUPPLEMENT (PROSTAT) 30 ML LIQUID GT SCH ×3 (05:03→21:06)
[2023-05-22] MEDS: OMEPRAZOLE 20 MG CAPSULE.DR GT SCH (05:03)
[2023-05-22 06:27] LABS: CALCIUM 10.8 mg/dL (8.5-10.1); CREATININE 1.2 mg/dL (0.6-1.3); POTASSIUM 3.3 mmol/L (3.5-5.1)
[2023-05-22] MEDS: ACETAMINOPHEN 650 MG/20.3 ML LIQUID UDC GT SCH ×2 (08:42→20:49)
[2023-05-22] MEDS: ACIDOPHILUS/BULGARICUS CHEW TAB GT SCH ×2 (08:43→20:53)
[2023-05-22] MEDS: NITROFURANTOIN MACROCRYSTAL 100 MG CAPSULE GT SCH (08:44)
[2023-05-22] MEDS: levETIRAcetam 500 MG/5 ML LIQUID UDC GT SCH ×2 (08:44→20:54)
[2023-05-22] MEDS: HYDROGEN PEROXIDE 3% 118 ML BOTTLE TP SCH ×2 (08:47→19:22)
[2023-05-22] MEDS: REMEDY ESSENTIAL ZINC PASTE 113 GM TP SCH ×2 (09:00→20:58)
[2023-05-22] MEDS: MEDIHONEY= THERAHONEY 1.5 OZ TUBE TOP SCH ×4 (09:00→20:58)
[2023-05-22] MEDS: VITAMINS A AND D 5 GM UD PKT TP SCH ×2 (09:00→20:58)
[2023-05-22] MEDS ORDERED: POTASSIUM CHLORIDE 40 MEQ/30 ML LIQUID UDC GT ONE (11:00)
[2023-05-22] MEDS: MULTIVIT, IRON, MIN NO. 8, FA TABLET GT SCH (20:55)
[2023-05-22] MEDS: ASCORBIC ACID 500 MG TABLET GT SCH (20:57)
[2023-05-22] MEDS: ESTROGENS,CONJU VAGINAL CREAM 42.5 GM TUBE VG SCH (20:58)
[2023-05-22] MEDS: GLUCERNA 1.2 1000ML LIQUID GT PRN (21:03)
[2023-05-22] MEDS ORDERED: IV 1/2NS 1000 ML 1,000 ML IV ONE (22:45)
[2023-05-23] VITALS (14 sets, daily range): TEMP 97.5–98.3; O2SAT 97–99
[2023-05-23] MEDS: IPRATROPIUM BROMIDE 0.5 MG/2.5 ML NEBU NEB SCH ×6 (03:10→23:31)
[2023-05-23] MEDS: ALBUTEROL SULFATE 2.5 MG/3 ML NEBU NEB SCH ×6 (03:10→23:31)
[2023-05-23] MEDS: OMEGA-3 FATTY ACIDS/FISH OIL CAPSULE GT SCH ×2 (05:47→17:17)
[2023-05-23] MEDS: BACLOFEN 10 MG TABLET GT SCH ×4 (05:47→17:19)
[2023-05-23] MEDS: ARGININE/GLUTAMINE/CALCIUM BMB 1 EACH POWD.PACK GT SCH ×2 (05:47→17:18)
[2023-05-23] MEDS: OMEPRAZOLE 20 MG CAPSULE.DR GT SCH (05:48)
[2023-05-23] MEDS: PROTEIN SUPPLEMENT (PROSTAT) 30 ML LIQUID GT SCH ×3 (05:48→21:43)
[2023-05-23] MEDS: MIDODRINE HCL 10 MG TABLET GT SCH ×3 (05:48→21:41)
[2023-05-23 06:18] LABS: BASOPHILS # (AUTO) 0.1 K/UL (0.0-0.2); BASOPHILS % (AUTO) 0.8 % (0.0-2.0); EOSINOPHILS # (AUTO) 0.5 K/uL (0.0-0.7); EOSINOPHILS % (AUTO) 3.3 % (0.0-7.0); HEMATOCRIT 39.1 % (31.2-41.9); HEMOGLOBIN 11.7 g/dL (10.9-14.3); LYMPHOCYTES # (AUTO) 2.3 K/uL (0.8-4.8); LYMPHOCYTES % (AUTO) 15.4 % (20.5-51.5); MEAN CORPUSCULAR HEMOGLOBIN 23.7 uug (24.7-32.8); MEAN CORPUSCULAR HGB CONC 30 g/dL (32.3-35.6); MEAN CORPUSCULAR VOLUME 78.9 fL (75.5-95.3); MONOCYTES # (AUTO) 1.4 K/uL (0.1-1.30); MONOCYTES % (AUTO) 9.1 % (0.0-11.0); NEUTROPHILS # (AUTO) 10.8 K/uL (1.8-8.9); NEUTROPHILS % (AUTO) 71.4 % (38.5-71.5); PLATELET COUNT (AUTO) 150 K/uL (179-408); RED BLOOD CELL COUNT(AUTO) 4.95 MIL/uL (3.63-4.92); WHITE BLOOD COUNT (AUTO) 15.1 K/uL (3.8-11.8)
[2023-05-23 06:42] LABS: CALCIUM 9.2 mg/dL (8.5-10.1); CREATININE 1.2 mg/dL (0.6-1.3); POTASSIUM 3.4 mmol/L (3.5-5.1)
[2023-05-23 06:45] LABS: DIFFERENTIAL COMMENT 1
[2023-05-23] MEDS: ACIDOPHILUS/BULGARICUS CHEW TAB GT SCH ×2 (08:04→21:37)
[2023-05-23] MEDS: ACETAMINOPHEN 650 MG/20.3 ML LIQUID UDC GT SCH ×2 (08:05→20:30)
[2023-05-23] MEDS: NITROFURANTOIN MACROCRYSTAL 100 MG CAPSULE GT SCH (08:06)
[2023-05-23] MEDS: levETIRAcetam 500 MG/5 ML LIQUID UDC GT SCH ×2 (08:07→21:38)
[2023-05-23] MEDS: VITAMINS A AND D 5 GM UD PKT TP SCH ×2 (08:08→21:41)
[2023-05-23] MEDS: MEDIHONEY= THERAHONEY 1.5 OZ TUBE TOP SCH ×4 (08:08→21:41)
[2023-05-23] MEDS: REMEDY ESSENTIAL ZINC PASTE 113 GM TP SCH ×2 (08:08→21:41)
[2023-05-23] MEDS: HYDROGEN PEROXIDE 3% 118 ML BOTTLE TP SCH ×2 (09:00→19:20)
[2023-05-23] MEDS ORDERED: POTASSIUM CHLORIDE 10 MEQ TAB.PRT.SR XX ONE (12:00)
[2023-05-23] MEDS ORDERED: POTASSIUM CHLORIDE 40 MEQ/30 ML LIQUID UDC GT ONE (12:30)
[2023-05-23] MEDS: HYDROCODONE/APAP 10-325 MG TABLET GT PRN (17:44)
[2023-05-23] MEDS: FOSFOMYCIN TROMETHAMINE 3 GM PACKET GT SCH (21:38)
[2023-05-23] MEDS: MULTIVIT, IRON, MIN NO. 8, FA TABLET GT SCH (21:40)
[2023-05-23] MEDS: ESTROGENS,CONJU VAGINAL CREAM 42.5 GM TUBE VG SCH (21:41)
[2023-05-23] MEDS: ASCORBIC ACID 500 MG TABLET GT SCH (21:41)
[2023-05-23] MEDS: GLUCERNA 1.2 1000ML LIQUID GT PRN (22:00)
[2023-05-24] VITALS (13 sets, daily range): TEMP 97.5–98.2; O2SAT 97–99
[2023-05-24] MEDS: IPRATROPIUM BROMIDE 0.5 MG/2.5 ML NEBU NEB SCH ×5 (03:31→19:30)
[2023-05-24] MEDS: ALBUTEROL SULFATE 2.5 MG/3 ML NEBU NEB SCH ×5 (03:32→19:30)
[2023-05-24] MEDS: OMEGA-3 FATTY ACIDS/FISH OIL CAPSULE GT SCH ×2 (05:56→17:19)
[2023-05-24] MEDS: BACLOFEN 10 MG TABLET GT SCH ×4 (05:56→17:19)
[2023-05-24] MEDS: ARGININE/GLUTAMINE/CALCIUM BMB 1 EACH POWD.PACK GT SCH ×2 (05:56→17:19)
[2023-05-24] MEDS: OMEPRAZOLE 20 MG CAPSULE.DR GT SCH (05:57)
[2023-05-24] MEDS: MIDODRINE HCL 10 MG TABLET GT SCH ×3 (05:57→22:54)
[2023-05-24] MEDS: PROTEIN SUPPLEMENT (PROSTAT) 30 ML LIQUID GT SCH ×3 (05:57→22:54)
[2023-05-24 06:31] LABS: BASOPHILS # (AUTO) 0.1 K/UL (0.0-0.2); BASOPHILS % (AUTO) 0.9 % (0.0-2.0); EOSINOPHILS # (AUTO) 0.7 K/uL (0.0-0.7); EOSINOPHILS % (AUTO) 7.4 % (0.0-7.0); HEMATOCRIT 36.9 % (31.2-41.9); HEMOGLOBIN 11.1 g/dL (10.9-14.3); LYMPHOCYTES # (AUTO) 1.7 K/uL (0.8-4.8); MEAN CORPUSCULAR HEMOGLOBIN 23.8 uug (24.7-32.8); MEAN CORPUSCULAR HGB CONC 30 g/dL (32.3-35.6); MEAN CORPUSCULAR VOLUME 78.7 fL (75.5-95.3); MONOCYTES # (AUTO) 0.8 K/uL (0.1-1.30); MONOCYTES % (AUTO) 8.2 % (0.0-11.0); NEUTROPHILS # (AUTO) 6.6 K/uL (1.8-8.9); NEUTROPHILS % (AUTO) 66.5 % (38.5-71.5); PLATELET COUNT (AUTO) 128 K/uL (179-408); RED BLOOD CELL COUNT(AUTO) 4.68 MIL/uL (3.63-4.92)
[2023-05-24 06:42] LABS: DIFFERENTIAL COMMENT 1
[2023-05-24] MEDS: ACETAMINOPHEN 650 MG/20.3 ML LIQUID UDC GT SCH ×2 (08:02→20:37)
[2023-05-24] MEDS: levETIRAcetam 500 MG/5 ML LIQUID UDC GT SCH ×2 (08:04→20:38)
[2023-05-24] MEDS: ACIDOPHILUS/BULGARICUS CHEW TAB GT SCH ×2 (08:04→20:38)
[2023-05-24] MEDS: NITROFURANTOIN MACROCRYSTAL 100 MG CAPSULE GT SCH (08:05)
[2023-05-24] MEDS: MEDIHONEY= THERAHONEY 1.5 OZ TUBE TOP SCH ×4 (08:05→20:40)
[2023-05-24] MEDS: VITAMINS A AND D 5 GM UD PKT TP SCH ×2 (08:05→20:40)
[2023-05-24] MEDS: REMEDY ESSENTIAL ZINC PASTE 113 GM TP SCH ×2 (08:05→20:40)
[2023-05-24 08:08] LABS: *BILIRUBIN,URIN NEGATIVE (NEGATIVE); *BLOOD, URINE 3+ (NEGATIVE); *CLARITY,URINE SLIGHTLY CLOUDY (CLEAR); *COLOR,URINE YELLOW (YELLOW); *KETONES,URINE NEGATIVE (NEGATIVE); *PROTEIN,URINE 2+ (NEGATIVE); *UROBILINOGEN,URINE 0.2 E.U./dl (NORMAL); LEUKOCYTE ESTERASE ,URINE 3+ (NEGATIVE); NITRITE, URINE NEGATIVE (NEGATIVE); PH,URINE 6.5 (5.0-8.0); UGLUCOSE NEGATIVE (NEGATIVE)
[2023-05-24] MEDS: HYDROGEN PEROXIDE 3% 118 ML BOTTLE TP SCH ×3 (09:00→21:14)
[2023-05-24 09:28] LABS: BACTERIA,URINE MANY /HPF (NONE SEEN); SQUAMOUS EPITHELIAL CELL,UR FEW /HPF (NONE SEEN); WBC,URINE 20-50 /HPF (0-3)
[2023-05-24] MEDS: MULTIVIT, IRON, MIN NO. 8, FA TABLET GT SCH (20:39)
[2023-05-24] MEDS: ASCORBIC ACID 500 MG TABLET GT SCH (20:40)
[2023-05-24] MEDS: ESTROGENS,CONJU VAGINAL CREAM 42.5 GM TUBE VG SCH (20:40)
[2023-05-25] VITALS (17 sets, daily range): TEMP 97.1–100.6; O2SAT 98–99
[2023-05-25] MEDS: ALBUTEROL SULFATE 2.5 MG/3 ML NEBU NEB SCH ×6 (00:16→22:39)
[2023-05-25] MEDS: IPRATROPIUM BROMIDE 0.5 MG/2.5 ML NEBU NEB SCH ×6 (00:16→22:39)
[2023-05-25] MEDS: GLUCERNA 1.2 1000ML LIQUID GT PRN (04:05)
[2023-05-25] MEDS: ARGININE/GLUTAMINE/CALCIUM BMB 1 EACH POWD.PACK GT SCH ×2 (05:44→17:50)
[2023-05-25] MEDS: PROTEIN SUPPLEMENT (PROSTAT) 30 ML LIQUID GT SCH ×3 (05:44→21:00)
[2023-05-25] MEDS: MIDODRINE HCL 10 MG TABLET GT SCH ×3 (05:44→21:01)
[2023-05-25] MEDS: OMEPRAZOLE 20 MG CAPSULE.DR GT SCH (05:44)
[2023-05-25] MEDS: OMEGA-3 FATTY ACIDS/FISH OIL CAPSULE GT SCH ×2 (05:44→18:00)
[2023-05-25] MEDS: BACLOFEN 10 MG TABLET GT SCH ×4 (05:44→17:50)
[2023-05-25] MEDS: ACETAMINOPHEN 650 MG/20.3 ML LIQUID UDC GT SCH ×2 (08:30→21:00)
[2023-05-25] MEDS: ACIDOPHILUS/BULGARICUS CHEW TAB GT SCH ×2 (09:33→21:00)
[2023-05-25] MEDS: NITROFURANTOIN MACROCRYSTAL 100 MG CAPSULE GT SCH (09:35)
[2023-05-25] MEDS: levETIRAcetam 500 MG/5 ML LIQUID UDC GT SCH ×2 (09:37→21:00)
[2023-05-25] MEDS: REMEDY ESSENTIAL ZINC PASTE 113 GM TP SCH ×2 (09:38→21:00)
[2023-05-25] MEDS: VITAMINS A AND D 5 GM UD PKT TP SCH ×2 (09:38→21:00)
[2023-05-25] MEDS: MEDIHONEY= THERAHONEY 1.5 OZ TUBE TOP SCH ×4 (09:38→21:00)
[2023-05-25] MEDS: HYDROCODONE/APAP 10-325 MG TABLET GT PRN (14:04)
[2023-05-25] MEDS: ASCORBIC ACID 500 MG TABLET GT SCH (21:00)
[2023-05-25] MEDS: MULTIVIT, IRON, MIN NO. 8, FA TABLET GT SCH (21:00)
[2023-05-25] MEDS: ESTROGENS,CONJU VAGINAL CREAM 42.5 GM TUBE VG SCH (21:00)
[2023-05-25] MEDS: TEMAZEPAM 7.5 MG CAPSULE GT PRN (21:01)
[2023-05-25] MEDS: HYDROGEN PEROXIDE 3% 118 ML BOTTLE TP SCH (22:40)
[2023-05-26] VITALS (16 sets, daily range): TEMP 97.9–98.4; O2SAT 98–99
[2023-05-26] MEDS: BACLOFEN 10 MG TABLET GT SCH ×4 (00:09→17:15)
[2023-05-26] MEDS: ALBUTEROL SULFATE 2.5 MG/3 ML NEBU NEB SCH ×7 (00:43→23:26)
[2023-05-26] MEDS: IPRATROPIUM BROMIDE 0.5 MG/2.5 ML NEBU NEB SCH ×7 (00:43→23:26)
[2023-05-26] MEDS: GLUCERNA 1.2 1000ML LIQUID GT PRN (04:23)
[2023-05-26] MEDS: ARGININE/GLUTAMINE/CALCIUM BMB 1 EACH POWD.PACK GT SCH ×2 (05:15→17:15)
[2023-05-26] MEDS: OMEGA-3 FATTY ACIDS/FISH OIL CAPSULE GT SCH ×2 (05:15→17:15)
[2023-05-26] MEDS: OMEPRAZOLE 20 MG CAPSULE.DR GT SCH (05:16)
[2023-05-26] MEDS: PROTEIN SUPPLEMENT (PROSTAT) 30 ML LIQUID GT SCH ×3 (05:16→21:23)
[2023-05-26] MEDS: MIDODRINE HCL 10 MG TABLET GT SCH ×3 (05:16→21:23)
[2023-05-26] MEDS: HYDROGEN PEROXIDE 3% 118 ML BOTTLE TP SCH ×2 (07:35→19:16)
[2023-05-26] MEDS: ACETAMINOPHEN 650 MG/20.3 ML LIQUID UDC GT SCH ×2 (08:12→21:22)
[2023-05-26] MEDS: ACIDOPHILUS/BULGARICUS CHEW TAB GT SCH ×2 (08:12→21:22)
[2023-05-26] MEDS: levETIRAcetam 500 MG/5 ML LIQUID UDC GT SCH ×2 (08:13→21:22)
[2023-05-26] MEDS: VITAMINS A AND D 5 GM UD PKT TP SCH ×2 (08:14→21:23)
[2023-05-26] MEDS: MEDIHONEY= THERAHONEY 1.5 OZ TUBE TOP SCH ×2 (08:14)
[2023-05-26] MEDS: NITROFURANTOIN MACROCRYSTAL 100 MG CAPSULE GT SCH (08:14)
[2023-05-26] MEDS: REMEDY ESSENTIAL ZINC PASTE 113 GM TP SCH ×2 (08:14→21:23)
[2023-05-26] MEDS ORDERED: SODIUM HYPOCHLORITE 0.125% (QUARTER STRENGTH) 473 ML BOTTLE TP PRN (17:15)
[2023-05-26] MEDS ORDERED: BALSAM PERU/CASTOR OIL 60 GM OINT...G. TP PRN (17:15)
[2023-05-26] MEDS ORDERED: BALSAM PERU/CASTOR OIL 60 GM OINT...G. TP SCH (21:00)
[2023-05-26] MEDS: SODIUM HYPOCHLORITE 0.125% (QUARTER STRENGTH) 473 ML BOTTLE TP SCH (21:22)
[2023-05-26] MEDS: MULTIVIT, IRON, MIN NO. 8, FA TABLET GT SCH (21:22)
[2023-05-26] MEDS: ASCORBIC ACID 500 MG TABLET GT SCH (21:22)
[2023-05-26] MEDS: ESTROGENS,CONJU VAGINAL CREAM 42.5 GM TUBE VG SCH (21:23)
[2023-05-26] MEDS: TEMAZEPAM 7.5 MG CAPSULE GT PRN (21:30)
[2023-05-27] VITALS (17 sets, daily range): TEMP 97.2–101; O2SAT 98–99
[2023-05-27] MEDS: IPRATROPIUM BROMIDE 0.5 MG/2.5 ML NEBU NEB SCH ×6 (03:27→23:42)
[2023-05-27] MEDS: ALBUTEROL SULFATE 2.5 MG/3 ML NEBU NEB SCH ×6 (03:27→23:42)
[2023-05-27] MEDS ORDERED: SODIUM HYPOCHLORITE 0.125% (QUARTER STRENGTH) 473 ML BOTTLE TP PRN ×2 (03:30)
[2023-05-27] MEDS: BALSAM PERU/CASTOR OIL 60 GM OINT...G. TP SCH ×6 (03:30→21:49)
[2023-05-27] MEDS: SODIUM HYPOCHLORITE 0.125% (QUARTER STRENGTH) 473 ML BOTTLE TP SCH ×7 (04:10→21:49)
[2023-05-27] MEDS ORDERED: MISCELLANEOUS MED TP PRN ×2 (04:15)
[2023-05-27] MEDS ORDERED: MISCELLANEOUS MED TP SCH ×2 (04:15)
[2023-05-27] MEDS: MIDODRINE HCL 10 MG TABLET GT SCH ×3 (05:19→21:50)
[2023-05-27] MEDS: PROTEIN SUPPLEMENT (PROSTAT) 30 ML LIQUID GT SCH ×3 (05:19→21:50)
[2023-05-27] MEDS: OMEPRAZOLE 20 MG CAPSULE.DR GT SCH (05:19)
[2023-05-27] MEDS: ARGININE/GLUTAMINE/CALCIUM BMB 1 EACH POWD.PACK GT SCH ×2 (05:19→17:45)
[2023-05-27] MEDS: BACLOFEN 10 MG TABLET GT SCH ×4 (05:19→17:45)
[2023-05-27] MEDS: OMEGA-3 FATTY ACIDS/FISH OIL CAPSULE GT SCH ×2 (05:19→17:43)
[2023-05-27] MEDS: ACETAMINOPHEN 650 MG/20.3 ML LIQUID UDC GT SCH ×2 (08:34→20:30)
[2023-05-27] MEDS: levETIRAcetam 500 MG/5 ML LIQUID UDC GT SCH ×2 (09:00→21:48)
[2023-05-27] MEDS: ACIDOPHILUS/BULGARICUS CHEW TAB GT SCH ×2 (09:57→21:48)
[2023-05-27] MEDS: NITROFURANTOIN MACROCRYSTAL 100 MG CAPSULE GT SCH (09:58)
[2023-05-27] MEDS: VITAMINS A AND D 5 GM UD PKT TP SCH ×2 (09:58→21:49)
[2023-05-27] MEDS: REMEDY ESSENTIAL ZINC PASTE 113 GM TP SCH ×2 (09:58→21:49)
[2023-05-27] MEDS: HYDROGEN PEROXIDE 3% 118 ML BOTTLE TP SCH ×2 (09:59→21:49)
[2023-05-27] MEDS: GLUCERNA 1.2 1000ML LIQUID GT PRN (10:02)
[2023-05-27] MEDS ORDERED: BALSAM PERU/CASTOR OIL 60 GM OINT...G. TP PRN ×2 (10:15→10:30)
[2023-05-27] MEDS: CEFTRIAXONE 2 G in IV DEXTROSE 5% 100 ML IV SCH (17:00)
[2023-05-27] MEDS ORDERED: CEFTRIAXONE 2 G in IV DEXTROSE 5% 100 ML IV SCH (17:00)
[2023-05-27] MEDS ORDERED: CEFTRIAXONE 2 G in IV DEXTROSE 5% 100 ML IV ONE (17:00)
[2023-05-27] MEDS: ESTROGENS,CONJU VAGINAL CREAM 42.5 GM TUBE VG SCH (21:49)
[2023-05-27] MEDS: MULTIVIT, IRON, MIN NO. 8, FA TABLET GT SCH (21:49)
[2023-05-27] MEDS: ASCORBIC ACID 500 MG TABLET GT SCH (21:49)
[2023-05-28] VITALS (15 sets, daily range): TEMP 98.2–98.9; O2SAT 98–99
[2023-05-28] MEDS: BACLOFEN 10 MG TABLET GT SCH ×4 (00:23→17:39)
[2023-05-28] MEDS: ALBUTEROL SULFATE 2.5 MG/3 ML NEBU NEB SCH ×6 (03:55→23:55)
[2023-05-28] MEDS: IPRATROPIUM BROMIDE 0.5 MG/2.5 ML NEBU NEB SCH ×6 (03:55→23:55)
[2023-05-28] MEDS: OMEGA-3 FATTY ACIDS/FISH OIL CAPSULE GT SCH ×2 (05:30→17:39)
[2023-05-28] MEDS: ARGININE/GLUTAMINE/CALCIUM BMB 1 EACH POWD.PACK GT SCH ×2 (05:30→17:39)
[2023-05-28] MEDS: MIDODRINE HCL 10 MG TABLET GT SCH ×3 (05:32→22:32)
[2023-05-28] MEDS: PROTEIN SUPPLEMENT (PROSTAT) 30 ML LIQUID GT SCH ×3 (05:32→22:32)
[2023-05-28] MEDS: OMEPRAZOLE 20 MG CAPSULE.DR GT SCH (05:32)
[2023-05-28] MEDS: HYDROGEN PEROXIDE 3% 118 ML BOTTLE TP SCH ×2 (07:12→21:00)
[2023-05-28] MEDS: ACETAMINOPHEN 650 MG/20.3 ML LIQUID UDC GT SCH ×2 (08:55→20:30)
[2023-05-28] MEDS: levETIRAcetam 500 MG/5 ML LIQUID UDC GT SCH ×2 (08:56→21:00)
[2023-05-28] MEDS: VITAMINS A AND D 5 GM UD PKT TP SCH ×2 (08:56→21:00)
[2023-05-28] MEDS: SODIUM HYPOCHLORITE 0.125% (QUARTER STRENGTH) 473 ML BOTTLE TP SCH ×4 (08:56→21:00)
[2023-05-28] MEDS: REMEDY ESSENTIAL ZINC PASTE 113 GM TP SCH ×2 (08:56→21:00)
[2023-05-28] MEDS: BALSAM PERU/CASTOR OIL 60 GM OINT...G. TP SCH ×4 (08:56→21:00)
[2023-05-28] MEDS: ACIDOPHILUS/BULGARICUS CHEW TAB GT SCH ×2 (08:56→21:00)
[2023-05-28 08:59] LABS: BASOPHILS # (AUTO) 0.1 K/UL (0.0-0.2); BASOPHILS % (AUTO) 0.8 % (0.0-2.0); EOSINOPHILS # (AUTO) 0.4 K/uL (0.0-0.7); HEMATOCRIT 35.4 % (31.2-41.9); HEMOGLOBIN 10.9 g/dL (10.9-14.3); LYMPHOCYTES # (AUTO) 1.9 K/uL (0.8-4.8); LYMPHOCYTES % (AUTO) 18.4 % (20.5-51.5); MEAN CORPUSCULAR HEMOGLOBIN 23.8 uug (24.7-32.8); MEAN CORPUSCULAR HGB CONC 31 g/dL (32.3-35.6); MEAN CORPUSCULAR VOLUME 77.2 fL (75.5-95.3); MONOCYTES # (AUTO) 0.9 K/uL (0.1-1.30); NEUTROPHILS % (AUTO) 67.8 % (38.5-71.5); PLATELET COUNT (AUTO) 183 K/uL (179-408); RED BLOOD CELL COUNT(AUTO) 4.58 MIL/uL (3.63-4.92); RED CELL DISTRIBUTION WIDTH 21.7 % (12.3-17.7); WHITE BLOOD COUNT (AUTO) 10.4 K/uL (3.8-11.8)
[2023-05-28 09:02] LABS: DIFFERENTIAL COMMENT 1
[2023-05-28 09:12] LABS: ALBUMIN 2.6 g/dL (3.4-5.0); BILIRUBIN,TOTAL 0.5 mg/dL (0.2-1.0); CALCIUM 10.1 mg/dL (8.5-10.1); CREATININE 0.7 mg/dL (0.6-1.3); POTASSIUM 3.2 mmol/L (3.5-5.1); TOTAL PROTEIN, SERUM 8.4 g/dL (6.4-8.2)
[2023-05-28] MEDS ORDERED: POTASSIUM CHLORIDE 10 MEQ TAB.PRT.SR XX ONE (14:00)
[2023-05-28] MEDS: CEFTRIAXONE 2 G in IV DEXTROSE 5% 100 ML IV SCH (16:46)
[2023-05-28] MEDS: ESTROGENS,CONJU VAGINAL CREAM 42.5 GM TUBE VG SCH (21:00)
[2023-05-28] MEDS: ASCORBIC ACID 500 MG TABLET GT SCH (21:00)
[2023-05-28] MEDS: MULTIVIT, IRON, MIN NO. 8, FA TABLET GT SCH (21:00)
[2023-05-29] VITALS (14 sets, daily range): TEMP 98.2–98.5; O2SAT 98–99
[2023-05-29] MEDS: BACLOFEN 10 MG TABLET GT SCH ×4 (00:35→16:11)
[2023-05-29] MEDS: IPRATROPIUM BROMIDE 0.5 MG/2.5 ML NEBU NEB SCH ×6 (03:30→23:45)
[2023-05-29] MEDS: ALBUTEROL SULFATE 2.5 MG/3 ML NEBU NEB SCH ×6 (03:30→23:45)
[2023-05-29] MEDS: OMEGA-3 FATTY ACIDS/FISH OIL CAPSULE GT SCH ×2 (05:45→16:08)
[2023-05-29] MEDS: ARGININE/GLUTAMINE/CALCIUM BMB 1 EACH POWD.PACK GT SCH ×2 (05:45→16:09)
[2023-05-29] MEDS: MIDODRINE HCL 10 MG TABLET GT SCH ×3 (05:46→21:41)
[2023-05-29] MEDS: OMEPRAZOLE 20 MG CAPSULE.DR GT SCH (05:46)
[2023-05-29] MEDS: PROTEIN SUPPLEMENT (PROSTAT) 30 ML LIQUID GT SCH ×3 (05:46→21:41)
[2023-05-29] MEDS: HYDROGEN PEROXIDE 3% 118 ML BOTTLE TP SCH ×2 (07:24→20:55)
[2023-05-29] MEDS: VITAMINS A AND D 5 GM UD PKT TP SCH ×2 (09:24→21:40)
[2023-05-29] MEDS: BALSAM PERU/CASTOR OIL 60 GM OINT...G. TP SCH ×4 (09:24→21:40)
[2023-05-29] MEDS: REMEDY ESSENTIAL ZINC PASTE 113 GM TP SCH ×2 (09:25→21:40)
[2023-05-29] MEDS: ACETAMINOPHEN 650 MG/20.3 ML LIQUID UDC GT SCH ×2 (09:25→20:30)
[2023-05-29] MEDS: SODIUM HYPOCHLORITE 0.125% (QUARTER STRENGTH) 473 ML BOTTLE TP SCH ×4 (09:25→21:40)
[2023-05-29] MEDS: levETIRAcetam 500 MG/5 ML LIQUID UDC GT SCH ×2 (09:26→21:40)
[2023-05-29] MEDS: ACIDOPHILUS/BULGARICUS CHEW TAB GT SCH ×2 (09:26→21:40)
[2023-05-29] MEDS: CEFTRIAXONE 2 G in IV DEXTROSE 5% 100 ML IV SCH (16:21)
[2023-05-29] MEDS: MULTIVIT, IRON, MIN NO. 8, FA TABLET GT SCH (21:40)
[2023-05-29] MEDS: ASCORBIC ACID 500 MG TABLET GT SCH (21:40)
[2023-05-29] MEDS: TEMAZEPAM 7.5 MG CAPSULE GT PRN (21:40)
[2023-05-29] MEDS: ESTROGENS,CONJU VAGINAL CREAM 42.5 GM TUBE VG SCH (21:40)
[2023-05-30] VITALS (14 sets, daily range): BP systolic 106; BP diastolic 54; TEMP 98.1–98.7; O2SAT 96–100
[2023-05-30] MEDS: TEMAZEPAM 7.5 MG CAPSULE GT PRN (00:21)
[2023-05-30] MEDS: BACLOFEN 10 MG TABLET GT SCH ×5 (00:21→23:23)
[2023-05-30] MEDS: IPRATROPIUM BROMIDE 0.5 MG/2.5 ML NEBU NEB SCH ×6 (03:02→23:20)
[2023-05-30] MEDS: ALBUTEROL SULFATE 2.5 MG/3 ML NEBU NEB SCH ×6 (03:02→23:20)
[2023-05-30] MEDS: OMEGA-3 FATTY ACIDS/FISH OIL CAPSULE GT SCH ×2 (06:26→17:08)
[2023-05-30] MEDS: ARGININE/GLUTAMINE/CALCIUM BMB 1 EACH POWD.PACK GT SCH ×2 (06:26→17:08)
[2023-05-30] MEDS: MIDODRINE HCL 10 MG TABLET GT SCH ×3 (06:27→22:17)
[2023-05-30] MEDS: PROTEIN SUPPLEMENT (PROSTAT) 30 ML LIQUID GT SCH ×3 (06:27→22:17)
[2023-05-30] MEDS: OMEPRAZOLE 20 MG CAPSULE.DR GT SCH (06:27)
[2023-05-30] MEDS: ACETAMINOPHEN 650 MG/20.3 ML LIQUID UDC GT SCH ×2 (08:49→20:30)
[2023-05-30] MEDS: ACIDOPHILUS/BULGARICUS CHEW TAB GT SCH ×2 (09:17→21:00)
[2023-05-30] MEDS: REMEDY ESSENTIAL ZINC PASTE 113 GM TP SCH ×2 (09:17→21:00)
[2023-05-30] MEDS: SODIUM HYPOCHLORITE 0.125% (QUARTER STRENGTH) 473 ML BOTTLE TP SCH ×4 (09:17→21:00)
[2023-05-30] MEDS: levETIRAcetam 500 MG/5 ML LIQUID UDC GT SCH ×2 (09:17→21:00)
[2023-05-30] MEDS: VITAMINS A AND D 5 GM UD PKT TP SCH ×2 (09:18→21:00)
[2023-05-30] MEDS: BALSAM PERU/CASTOR OIL 60 GM OINT...G. TP SCH ×4 (09:18→21:00)
[2023-05-30] MEDS: HYDROGEN PEROXIDE 3% 118 ML BOTTLE TP SCH ×2 (09:31→21:45)
[2023-05-30] MEDS: CEFTRIAXONE 2 G in IV DEXTROSE 5% 100 ML IV SCH (16:24)
[2023-05-30] MEDS: HYDROCODONE/APAP 10-325 MG TABLET GT PRN (17:19)
[2023-05-30] MEDS: ASCORBIC ACID 500 MG TABLET GT SCH (21:00)
[2023-05-30] MEDS: MULTIVIT, IRON, MIN NO. 8, FA TABLET GT SCH (21:00)
[2023-05-30] MEDS: ESTROGENS,CONJU VAGINAL CREAM 42.5 GM TUBE VG SCH (21:00)
[2023-05-30] MEDS: GLUCERNA 1.2 1000ML LIQUID GT PRN (22:44)
[2023-05-31] VITALS (14 sets, daily range): BP systolic 103; BP diastolic 55; TEMP 98.6–98.8; O2SAT 97–100
[2023-05-31] MEDS: ALBUTEROL SULFATE 2.5 MG/3 ML NEBU NEB SCH ×6 (03:31→23:39)
[2023-05-31] MEDS: IPRATROPIUM BROMIDE 0.5 MG/2.5 ML NEBU NEB SCH ×6 (03:31→23:39)
[2023-05-31] MEDS: ARGININE/GLUTAMINE/CALCIUM BMB 1 EACH POWD.PACK GT SCH ×2 (05:15→17:19)
[2023-05-31] MEDS: MIDODRINE HCL 10 MG TABLET GT SCH ×3 (05:15→22:00)
[2023-05-31] MEDS: OMEGA-3 FATTY ACIDS/FISH OIL CAPSULE GT SCH ×2 (05:15→17:18)
[2023-05-31] MEDS: OMEPRAZOLE 20 MG CAPSULE.DR GT SCH (05:15)
[2023-05-31] MEDS: BACLOFEN 10 MG TABLET GT SCH ×3 (05:15→17:20)
[2023-05-31] MEDS: PROTEIN SUPPLEMENT (PROSTAT) 30 ML LIQUID GT SCH ×3 (05:16→22:22)
[2023-05-31] MEDS: ACETAMINOPHEN 650 MG/20.3 ML LIQUID UDC GT SCH ×2 (08:57→20:42)
[2023-05-31] MEDS: ACIDOPHILUS/BULGARICUS CHEW TAB GT SCH ×2 (09:00→20:42)
[2023-05-31] MEDS: levETIRAcetam 500 MG/5 ML LIQUID UDC GT SCH ×2 (09:00→20:42)
[2023-05-31] MEDS: BALSAM PERU/CASTOR OIL 60 GM OINT...G. TP SCH ×4 (09:01→20:43)
[2023-05-31] MEDS: REMEDY ESSENTIAL ZINC PASTE 113 GM TP SCH ×2 (09:01→20:43)
[2023-05-31] MEDS: SODIUM HYPOCHLORITE 0.125% (QUARTER STRENGTH) 473 ML BOTTLE TP SCH ×4 (09:01→20:43)
[2023-05-31] MEDS: VITAMINS A AND D 5 GM UD PKT TP SCH ×2 (09:01→20:43)
[2023-05-31] MEDS: HYDROGEN PEROXIDE 3% 118 ML BOTTLE TP SCH ×2 (09:26→19:17)
[2023-05-31] MEDS: CEFTRIAXONE 2 G in IV DEXTROSE 5% 100 ML IV SCH (17:00)
[2023-05-31] MEDS: MULTIVIT, IRON, MIN NO. 8, FA TABLET GT SCH (20:42)
[2023-05-31] MEDS: ASCORBIC ACID 500 MG TABLET GT SCH (20:43)
[2023-05-31] MEDS: ESTROGENS,CONJU VAGINAL CREAM 42.5 GM TUBE VG SCH (20:43)
[2023-05-31] MEDS: HYDROCODONE/APAP 10-325 MG TABLET GT PRN (23:15)
[2023-06-01] VITALS (15 sets, daily range): TEMP 97.2–99.2; O2SAT 98–99
[2023-06-01] MEDS: IPRATROPIUM BROMIDE 0.5 MG/2.5 ML NEBU NEB SCH ×6 (03:35→23:00)
[2023-06-01] MEDS: ALBUTEROL SULFATE 2.5 MG/3 ML NEBU NEB SCH ×6 (03:35→23:00)
[2023-06-01] MEDS: ARGININE/GLUTAMINE/CALCIUM BMB 1 EACH POWD.PACK GT SCH ×2 (05:15→17:34)
[2023-06-01] MEDS: OMEGA-3 FATTY ACIDS/FISH OIL CAPSULE GT SCH ×2 (05:15→17:34)
[2023-06-01] MEDS: PROTEIN SUPPLEMENT (PROSTAT) 30 ML LIQUID GT SCH ×3 (05:15→21:09)
[2023-06-01] MEDS: BACLOFEN 10 MG TABLET GT SCH ×4 (05:16→17:34)
[2023-06-01] MEDS: OMEPRAZOLE 20 MG CAPSULE.DR GT SCH (05:17)
[2023-06-01] MEDS: MIDODRINE HCL 10 MG TABLET GT SCH ×3 (05:17→21:09)
[2023-06-01] MEDS: ACIDOPHILUS/BULGARICUS CHEW TAB GT SCH ×2 (08:41→21:08)
[2023-06-01] MEDS: REMEDY ESSENTIAL ZINC PASTE 113 GM TP SCH ×2 (08:43→21:08)
[2023-06-01] MEDS: VITAMINS A AND D 5 GM UD PKT TP SCH ×2 (08:43→21:08)
[2023-06-01] MEDS: SODIUM HYPOCHLORITE 0.125% (QUARTER STRENGTH) 473 ML BOTTLE TP SCH ×4 (08:43→21:08)
[2023-06-01] MEDS: BALSAM PERU/CASTOR OIL 60 GM OINT...G. TP SCH ×3 (08:43→21:08)
[2023-06-01] MEDS: ACETAMINOPHEN 650 MG/20.3 ML LIQUID UDC GT SCH ×2 (08:44→21:08)
[2023-06-01] MEDS: levETIRAcetam 500 MG/5 ML LIQUID UDC GT SCH ×2 (08:45→21:08)
[2023-06-01] MEDS: HYDROGEN PEROXIDE 3% 118 ML BOTTLE TP SCH ×2 (09:11→19:18)
[2023-06-01] MEDS: GLUCERNA 1.2 1000ML LIQUID GT PRN (13:10)
[2023-06-01] MEDS: HYDROCODONE/APAP 10-325 MG TABLET GT PRN (13:26)
[2023-06-01] MEDS ORDERED: SODIUM HYPOCHLORITE 0.125% (QUARTER STRENGTH) 473 ML BOTTLE TP PRN ×2 (19:45→20:00)
[2023-06-01] MEDS: ESTROGENS,CONJU VAGINAL CREAM 42.5 GM TUBE VG SCH (21:08)
[2023-06-01] MEDS: ASCORBIC ACID 500 MG TABLET GT SCH (21:08)
[2023-06-01] MEDS: MULTIVIT, IRON, MIN NO. 8, FA TABLET GT SCH (21:08)
[2023-06-01] MEDS: TEMAZEPAM 7.5 MG CAPSULE GT PRN (21:09)
[2023-06-02] VITALS (15 sets, daily range): TEMP 97.8–99.8; O2SAT 98–99
[2023-06-02] MEDS: BACLOFEN 10 MG TABLET GT SCH ×5 (00:38→23:03)
[2023-06-02] MEDS: IPRATROPIUM BROMIDE 0.5 MG/2.5 ML NEBU NEB SCH ×6 (03:44→23:01)
[2023-06-02] MEDS: ALBUTEROL SULFATE 2.5 MG/3 ML NEBU NEB SCH ×6 (03:45→23:01)
[2023-06-02] MEDS: HYDROCODONE/APAP 10-325 MG TABLET GT PRN ×2 (04:30→17:33)
[2023-06-02] MEDS: ARGININE/GLUTAMINE/CALCIUM BMB 1 EACH POWD.PACK GT SCH ×2 (05:26→17:43)
[2023-06-02] MEDS: MIDODRINE HCL 10 MG TABLET GT SCH ×3 (05:26→21:03)
[2023-06-02] MEDS: OMEGA-3 FATTY ACIDS/FISH OIL CAPSULE GT SCH ×2 (05:26→17:24)
[2023-06-02] MEDS: PROTEIN SUPPLEMENT (PROSTAT) 30 ML LIQUID GT SCH ×3 (05:27→21:03)
[2023-06-02] MEDS: OMEPRAZOLE 20 MG CAPSULE.DR GT SCH (05:27)
[2023-06-02] MEDS: HYDROGEN PEROXIDE 3% 118 ML BOTTLE TP SCH ×2 (07:15→21:27)
[2023-06-02] MEDS: ACETAMINOPHEN 650 MG/20.3 ML LIQUID UDC GT SCH ×2 (08:30→21:02)
[2023-06-02] MEDS ORDERED: BALSAM PERU/CASTOR OIL 60 GM OINT...G. TP PRN (09:00)
[2023-06-02] MEDS: REMEDY ESSENTIAL ZINC PASTE 113 GM TP SCH ×2 (09:00→21:02)
[2023-06-02] MEDS: levETIRAcetam 500 MG/5 ML LIQUID UDC GT SCH ×2 (09:00→21:02)
[2023-06-02] MEDS: NITROFURANTOIN MACROCRYSTAL 100 MG CAPSULE GT SCH (09:00)
[2023-06-02] MEDS: BALSAM PERU/CASTOR OIL 60 GM OINT...G. TP SCH ×2 (09:00→17:24)
[2023-06-02] MEDS: VITAMINS A AND D 5 GM UD PKT TP SCH ×2 (09:00→21:03)
[2023-06-02] MEDS ORDERED: SODIUM HYPOCHLORITE 0.125% (QUARTER STRENGTH) 473 ML BOTTLE TP SCH (09:00)
[2023-06-02] MEDS: SODIUM HYPOCHLORITE 0.125% (QUARTER STRENGTH) 473 ML BOTTLE TP SCH ×4 (09:00→21:02)
[2023-06-02] MEDS ORDERED: SODIUM HYPOCHLORITE 0.125% (QUARTER STRENGTH) 473 ML BOTTLE TP PRN ×3 (09:00→09:45)
[2023-06-02] MEDS: ACIDOPHILUS/BULGARICUS CHEW TAB GT SCH ×2 (09:54→21:02)
[2023-06-02] MEDS: ASCORBIC ACID 500 MG TABLET GT SCH (21:02)
[2023-06-02] MEDS: MULTIVIT, IRON, MIN NO. 8, FA TABLET GT SCH (21:02)
[2023-06-02] MEDS: TEMAZEPAM 7.5 MG CAPSULE GT PRN (21:03)
[2023-06-02] MEDS: ESTROGENS,CONJU VAGINAL CREAM 42.5 GM TUBE VG SCH (21:03)
[2023-06-03] VITALS (14 sets, daily range): TEMP 97–98.2; O2SAT 96–99
[2023-06-03] MEDS: IPRATROPIUM BROMIDE 0.5 MG/2.5 ML NEBU NEB SCH ×5 (03:11→19:25)
[2023-06-03] MEDS: ALBUTEROL SULFATE 2.5 MG/3 ML NEBU NEB SCH ×4 (03:12→19:26)
[2023-06-03] MEDS: BACLOFEN 10 MG TABLET GT SCH ×3 (05:18→17:25)
[2023-06-03] MEDS: ARGININE/GLUTAMINE/CALCIUM BMB 1 EACH POWD.PACK GT SCH ×2 (05:18→17:25)
[2023-06-03] MEDS: OMEGA-3 FATTY ACIDS/FISH OIL CAPSULE GT SCH ×2 (05:18→17:24)
[2023-06-03] MEDS: MIDODRINE HCL 10 MG TABLET GT SCH ×3 (05:19→21:22)
[2023-06-03] MEDS: OMEPRAZOLE 20 MG CAPSULE.DR GT SCH (05:19)
[2023-06-03] MEDS: PROTEIN SUPPLEMENT (PROSTAT) 30 ML LIQUID GT SCH ×3 (05:19→21:22)
[2023-06-03] MEDS: HYDROGEN PEROXIDE 3% 118 ML BOTTLE TP SCH ×2 (07:24→19:25)
[2023-06-03] MEDS: ACIDOPHILUS/BULGARICUS CHEW TAB GT SCH ×2 (09:26→21:20)
[2023-06-03] MEDS: ACETAMINOPHEN 650 MG/20.3 ML LIQUID UDC GT SCH ×2 (09:26→21:20)
[2023-06-03] MEDS: NITROFURANTOIN MACROCRYSTAL 100 MG CAPSULE GT SCH (09:28)
[2023-06-03] MEDS: SODIUM HYPOCHLORITE 0.125% (QUARTER STRENGTH) 473 ML BOTTLE TP SCH ×4 (09:28→21:21)
[2023-06-03] MEDS: levETIRAcetam 500 MG/5 ML LIQUID UDC GT SCH ×2 (09:28→21:20)
[2023-06-03] MEDS: BALSAM PERU/CASTOR OIL 60 GM OINT...G. TP SCH ×2 (09:29→17:00)
[2023-06-03] MEDS: VITAMINS A AND D 5 GM UD PKT TP SCH ×2 (09:29→21:21)
[2023-06-03] MEDS: REMEDY ESSENTIAL ZINC PASTE 113 GM TP SCH ×2 (09:29→21:21)
[2023-06-03] MEDS: GLUCERNA 1.2 1000ML LIQUID GT PRN (12:40)
[2023-06-03] MEDS: MULTIVIT, IRON, MIN NO. 8, FA TABLET GT SCH (21:20)
[2023-06-03] MEDS: ASCORBIC ACID 500 MG TABLET GT SCH (21:21)
[2023-06-03] MEDS: ESTROGENS,CONJU VAGINAL CREAM 42.5 GM TUBE VG SCH (21:21)
[2023-06-03] MEDS: TEMAZEPAM 7.5 MG CAPSULE GT PRN (21:22)
[2023-06-04] VITALS (15 sets, daily range): TEMP 97.8–98.4; O2SAT 98–99
[2023-06-04] MEDS: ALBUTEROL SULFATE 2.5 MG/3 ML NEBU NEB SCH ×7 (00:02→23:01)
[2023-06-04] MEDS: BACLOFEN 10 MG TABLET GT SCH ×4 (00:02→17:50)
[2023-06-04] MEDS: IPRATROPIUM BROMIDE 0.5 MG/2.5 ML NEBU NEB SCH ×7 (00:02→23:01)
[2023-06-04] MEDS: OMEPRAZOLE 20 MG CAPSULE.DR GT SCH (05:35)
[2023-06-04] MEDS: MIDODRINE HCL 10 MG TABLET GT SCH ×3 (05:35→21:51)
[2023-06-04] MEDS: PROTEIN SUPPLEMENT (PROSTAT) 30 ML LIQUID GT SCH ×3 (05:35→21:51)
[2023-06-04] MEDS: OMEGA-3 FATTY ACIDS/FISH OIL CAPSULE GT SCH ×2 (05:35→17:50)
[2023-06-04] MEDS: ARGININE/GLUTAMINE/CALCIUM BMB 1 EACH POWD.PACK GT SCH ×2 (05:35→17:50)
[2023-06-04] MEDS: ACETAMINOPHEN 650 MG/20.3 ML LIQUID UDC GT SCH ×2 (08:41→20:30)
[2023-06-04] MEDS: ACIDOPHILUS/BULGARICUS CHEW TAB GT SCH ×2 (08:43→21:50)
[2023-06-04] MEDS: NITROFURANTOIN MACROCRYSTAL 100 MG CAPSULE GT SCH (08:45)
[2023-06-04] MEDS: levETIRAcetam 500 MG/5 ML LIQUID UDC GT SCH ×2 (08:45→21:50)
[2023-06-04] MEDS: SODIUM HYPOCHLORITE 0.125% (QUARTER STRENGTH) 473 ML BOTTLE TP SCH ×4 (08:47→21:51)
[2023-06-04] MEDS: REMEDY ESSENTIAL ZINC PASTE 113 GM TP SCH ×2 (08:50→21:51)
[2023-06-04] MEDS: BALSAM PERU/CASTOR OIL 60 GM OINT...G. TP SCH ×2 (08:51→17:50)
[2023-06-04] MEDS: VITAMINS A AND D 5 GM UD PKT TP SCH ×2 (08:51→21:51)
[2023-06-04] MEDS: HYDROGEN PEROXIDE 3% 118 ML BOTTLE TP SCH ×2 (09:35→19:08)
[2023-06-04] MEDS: HYDROCODONE/APAP 10-325 MG TABLET GT PRN (17:59)
[2023-06-04] MEDS: TEMAZEPAM 7.5 MG CAPSULE GT PRN (21:30)
[2023-06-04] MEDS: MULTIVIT, IRON, MIN NO. 8, FA TABLET GT SCH (21:50)
[2023-06-04] MEDS: ASCORBIC ACID 500 MG TABLET GT SCH (21:50)
[2023-06-04] MEDS: ESTROGENS,CONJU VAGINAL CREAM 42.5 GM TUBE VG SCH (21:51)
[2023-06-05] VITALS (13 sets, daily range): TEMP 97.9; O2SAT 97–99
[2023-06-05] MEDS: ALBUTEROL SULFATE 2.5 MG/3 ML NEBU NEB SCH ×6 (03:04→23:07)
[2023-06-05] MEDS: IPRATROPIUM BROMIDE 0.5 MG/2.5 ML NEBU NEB SCH ×6 (03:04→23:07)
[2023-06-05] MEDS: ARGININE/GLUTAMINE/CALCIUM BMB 1 EACH POWD.PACK GT SCH ×2 (06:25→17:53)
[2023-06-05] MEDS: BACLOFEN 10 MG TABLET GT SCH ×4 (06:25→17:53)
[2023-06-05] MEDS: PROTEIN SUPPLEMENT (PROSTAT) 30 ML LIQUID GT SCH ×3 (06:25→21:00)
[2023-06-05] MEDS: OMEPRAZOLE 20 MG CAPSULE.DR GT SCH (06:25)
[2023-06-05] MEDS: MIDODRINE HCL 10 MG TABLET GT SCH ×3 (06:25→21:00)
[2023-06-05] MEDS: OMEGA-3 FATTY ACIDS/FISH OIL CAPSULE GT SCH ×2 (06:25→17:53)
[2023-06-05 06:43] LABS: CALCIUM 10.2 mg/dL (8.5-10.1); CREATININE 0.8 mg/dL (0.6-1.3)
[2023-06-05 07:35] LABS: POTASSIUM 2.7 mmol/L (3.5-5.1)
[2023-06-05] MEDS: ACETAMINOPHEN 650 MG/20.3 ML LIQUID UDC GT SCH ×2 (09:00→20:53)
[2023-06-05] MEDS: ACIDOPHILUS/BULGARICUS CHEW TAB GT SCH ×2 (09:02→20:53)
[2023-06-05] MEDS: NITROFURANTOIN MACROCRYSTAL 100 MG CAPSULE GT SCH (09:02)
[2023-06-05] MEDS: levETIRAcetam 500 MG/5 ML LIQUID UDC GT SCH ×2 (09:02→20:54)
[2023-06-05] MEDS: SODIUM HYPOCHLORITE 0.125% (QUARTER STRENGTH) 473 ML BOTTLE TP SCH ×4 (09:04→20:56)
[2023-06-05] MEDS: REMEDY ESSENTIAL ZINC PASTE 113 GM TP SCH ×2 (09:04→20:56)
[2023-06-05] MEDS: VITAMINS A AND D 5 GM UD PKT TP SCH ×2 (09:04→20:56)
[2023-06-05] MEDS: BALSAM PERU/CASTOR OIL 60 GM OINT...G. TP SCH ×2 (09:04→17:53)
[2023-06-05] MEDS: HYDROGEN PEROXIDE 3% 118 ML BOTTLE TP SCH ×2 (09:32→19:22)
[2023-06-05] MEDS: GLUCERNA 1.2 1000ML LIQUID GT PRN (11:29)
[2023-06-05] MEDS: POTASSIUM CHLORIDE 40 MEQ/30 ML LIQUID UDC GT SCH ×2 (11:32→14:29)
[2023-06-05] MEDS: ASCORBIC ACID 500 MG TABLET GT SCH (20:55)
[2023-06-05] MEDS: MULTIVIT, IRON, MIN NO. 8, FA TABLET GT SCH (20:55)
[2023-06-05] MEDS: ESTROGENS,CONJU VAGINAL CREAM 42.5 GM TUBE VG SCH (20:56)
[2023-06-06] MEDS: BACLOFEN 10 MG TABLET GT SCH ×2 (00:23→05:11)
[2023-06-06 03:20] VITALS: O2SAT 98
[2023-06-06] MEDS: ALBUTEROL SULFATE 2.5 MG/3 ML NEBU NEB SCH (03:21)
[2023-06-06] MEDS: IPRATROPIUM BROMIDE 0.5 MG/2.5 ML NEBU NEB SCH (03:21)
[2023-06-06 03:30] VITALS: O2SAT 99
[2023-06-06 05:11] VITALS: BP 108/147
[2023-06-06] MEDS: MIDODRINE HCL 10 MG TABLET GT SCH (05:11)
[2023-06-06] MEDS: ARGININE/GLUTAMINE/CALCIUM BMB 1 EACH POWD.PACK GT SCH (05:11)
[2023-06-06] MEDS: OMEGA-3 FATTY ACIDS/FISH OIL CAPSULE GT SCH (05:11)
[2023-06-06] MEDS: OMEPRAZOLE 20 MG CAPSULE.DR GT SCH (05:11)
[2023-06-06] MEDS: PROTEIN SUPPLEMENT (PROSTAT) 30 ML LIQUID GT SCH (05:11)
[2023-06-06] MEDS: HYDROCODONE/APAP 10-325 MG TABLET GT PRN (05:19)
[2023-06-06] MEDS ORDERED: FOSFOMYCIN TROMETHAMINE 3 GM PACKET GT SCH (21:00)
== END 2023-06-04 23:59 | disposition still patient (30) | DRG 981 ==
LOC: SA → UNDOADMIN 06-07 07:28 → SA1 12-29 17:56 → SA 01-01 19:22
PROVIDERS: ADMIT Internal Medicine Pulmonary Disease; ATTEND Internal Medicine Pulmonary Disease
PROC: 05HB33Z Insertion of Infusion Device into Right Basilic Vein, Percutaneous Approach (ICD-10-PCS; principal; 2022-07-03)
PROC: 05HD33Z Insertion of Infusion Device into Right Cephalic Vein, Percutaneous Approach (ICD-10-PCS; 2022-08-07)
PROC: 05HA33Z Insertion of Infusion Device into Left Brachial Vein, Percutaneous Approach (ICD-10-PCS; 2022-09-02)
PROC: 05H933Z Insertion of Infusion Device into Right Brachial Vein, Percutaneous Approach (ICD-10-PCS; 2022-09-23)
PROC: 0KBN0ZZ Excision of Right Hip Muscle, Open Approach (ICD-10-PCS; 2023-01-05)
PROC: 0KBP0ZZ Excision of Left Hip Muscle, Open Approach (ICD-10-PCS; 2023-01-05)
PROC: 0KBP0ZZ Excision of Left Hip Muscle, Open Approach (ICD-10-PCS; 2023-01-12)
PROC: 0KBN0ZZ Excision of Right Hip Muscle, Open Approach (ICD-10-PCS; 2023-01-12)
PROC: 0KBP0ZZ Excision of Left Hip Muscle, Open Approach (ICD-10-PCS; 2023-02-09)
PROC: 0KBN0ZZ Excision of Right Hip Muscle, Open Approach (ICD-10-PCS; 2023-02-09)
PROC: 05HF33Z Insertion of Infusion Device into Left Cephalic Vein, Percutaneous Approach (ICD-10-PCS; 2023-02-14)
PROC: 05HF33Z Insertion of Infusion Device into Left Cephalic Vein, Percutaneous Approach (ICD-10-PCS; 2023-03-25)
PROC: 0KBP0ZZ Excision of Left Hip Muscle, Open Approach (ICD-10-PCS; 2023-04-20)
PROC: 0KBN0ZZ Excision of Right Hip Muscle, Open Approach (ICD-10-PCS; 2023-04-20)
DX: J96.11 Chronic respiratory failure with hypoxia (principal); E43 Unspecified severe protein-calorie malnutrition; G82.50 Quadriplegia, unspecified; L89.154 Pressure ulcer of sacral region, stage 4; G92.8 Other toxic encephalopathy; I69.254 Hemiplegia and hemiparesis following other nontraumatic intracranial hemorrhage affecting left non-dominant side; G93.40 Encephalopathy, unspecified; N39.0 Urinary tract infection, site not specified; D68.59 Other primary thrombophilia; I82.413 Acute embolism and thrombosis of femoral vein, bilateral; J90 Pleural effusion, not elsewhere classified; J98.11 Atelectasis; M46.28 Osteomyelitis of vertebra, sacral and sacrococcygeal region; Z16.24 Resistance to multiple antibiotics; E87.0 Hyperosmolality and hypernatremia; N17.9 Acute kidney failure, unspecified; I69.222 Dysarthria following other nontraumatic intracranial hemorrhage; I69.291 Dysphagia following other nontraumatic intracranial hemorrhage; R13.10 Dysphagia, unspecified; E78.5 Hyperlipidemia, unspecified; B96.4 Proteus (mirabilis) (morganii) as the cause of diseases classified elsewhere; Z93.1 Gastrostomy status; Z93.0 Tracheostomy status; Z87.440 Personal history of urinary (tract) infections; Z20.822 Contact with and (suspected) exposure to COVID-19; B96.5 Pseudomonas (aeruginosa) (mallei) (pseudomallei) as the cause of diseases classified elsewhere; D25.9 Leiomyoma of uterus, unspecified; D64.9 Anemia, unspecified; D69.6 Thrombocytopenia, unspecified; E86.0 Dehydration; F32.A Depression, unspecified; K21.9 Gastro-esophageal reflux disease without esophagitis; K76.0 Fatty (change of) liver, not elsewhere classified; E11.69 Type 2 diabetes mellitus with other specified complication; Z66 Do not resuscitate; Z74.01 Bed confinement status; Z86.11 Personal history of tuberculosis; Z87.442 Personal history of urinary calculi; E83.39 Other disorders of phosphorus metabolism; E87.5 Hyperkalemia; E87.6 Hypokalemia; E88.09 Other disorders of plasma-protein metabolism, not elsewhere classified; G40.909 Epilepsy, unspecified, not intractable, without status epilepticus; Z79.2 Long term (current) use of antibiotics
CPT/HCPCS: 36415; 70030-TC; 71045; 72220; 73610; 73630; 74018; 76770; 83550; 83605; 83735; 84100; 84443; 84520; 85018; 85025; 85651; 86140; 86850; 86900; 86901; 86920; 87040; 89055; 90686; 94003; 94640; A4663; A6209; A6213; C1758; J0692; J0696; J1580; J1650; J2185; J3370; J3490; J3590; J7040; J7050; J7070; J8499; P9016; Q9963; U0003

== ENCOUNTER 2022-08-01 03:00 | Outpatient (CLI) | payer MEDICARE, OTHER ==
[2022-08-01] MEDS ORDERED: IOHEXOL 300MG/ML 100 ML INFUS..BTL ONE (22:15)
[2022-08-01] MEDS ORDERED: SWABABLE VALVE TRANSFER SET EA MC ONE (22:15)
[2022-08-01] MEDS ORDERED: IV NORMAL SALINE 250 ML IV ONE (22:16)
== END 2022-08-01 23:59 | disposition home or self-care (01) ==
LOC: RAD 03:00
PROVIDERS: ATTEND Internal Medicine Infectious Disease
DX: N20.0 Calculus of kidney (principal); N13.30 Unspecified hydronephrosis; M86.9 Osteomyelitis, unspecified; M47.817 Spondylosis without myelopathy or radiculopathy, lumbosacral region; Z90.49 Acquired absence of other specified parts of digestive tract
CPT/HCPCS: Q9967

== ENCOUNTER 2022-09-16 01:00 | Outpatient (CLI) | payer MEDICARE, OTHER ==
--- NOTE | 2022-09-15 20:43 | NUR ---
CT ABDO W/WO CONTRAST CHANGED TO ABDO/PELVIS W/O CONTRAST PER . FLOOR TO CALL RADIOLOGY WHEN PT IS READY
== END 2022-09-16 23:59 | disposition home or self-care (01) ==
LOC: RAD 01:00
PROVIDERS: ATTEND Internal Medicine Infectious Disease
DX: R91.1 Solitary pulmonary nodule (principal); J98.11 Atelectasis; N20.0 Calculus of kidney; M86.9 Osteomyelitis, unspecified; D25.9 Leiomyoma of uterus, unspecified; J98.6 Disorders of diaphragm; M47.815 Spondylosis without myelopathy or radiculopathy, thoracolumbar region; R10.9 Unspecified abdominal pain; R10.2 Pelvic and perineal pain

== ENCOUNTER 2022-10-03 07:51 | Inpatient (IN) | payer MEDICARE, OTHER ==
[~2022-10-03] VITALS: Ht 154.9 cm; Wt 60.0 kg
--- NOTE | 2022-10-03 08:03 | NUR ---
PT IS IN ROOM #3. DR TITUS EVALUATED THE PT.
[2022-10-03] MEDS ORDERED: IV NORMAL SALINE 1000 ML BAG IV ONE (08:15)
[2022-10-03] MEDS ORDERED: SIMV10TA98 GT (08:18)
[2022-10-03] MEDS ORDERED: BACL10TA GT (08:25)
[2022-10-03] MEDS ORDERED: METH1TAB69 GT (08:25)
--- NOTE | 2022-10-03 11:03 | NUR ---
report was given to travel med surg rn. pt was transfered to room #314.
[2022-10-03 11:30] VITALS: BP 101/43
--- NOTE | 2022-10-03 11:40 | NUR ---
received from ER per bed from subacute, awake, answers by ligia, on 5L 02 via tracheostomy sat at 99%, GT clamped at this time, kept NPO, oral care given after oral suction done, initial assessment done, pt is bedbound, quadriplegic with bilateral foot drop, both upper arms swollen and elevated on pillows, has a sacral wound and a wound vacuum on left buttock- with scant brownish drainage on the canister. temp 100.3- cooling measures done, incontinent of liquid yellowish stool- washed and kept clean and dry, repositioned to left side with pillows for support, both heels off loaded with pillows, IV Abx- given as ordered- no reactions noted, will continue to monitor
[2022-10-03] MEDS ORDERED: HYDR-3980 GT (11:58)
[2022-10-03] MEDS ORDERED: NITR50CA PO (11:59)
[2022-10-03] MEDS: VANCOMYCIN IV 1,000 MG in IV DEXTROSE 5% 250 ML IV SCH (12:56)
[2022-10-03] MEDS ORDERED: TEMAZEPAM 7.5 MG CAPSULE GT PRN (13:15)
[2022-10-03] MEDS ORDERED: SERTRALINE HCL 50 MG TABLET GT SCH (13:25)
[2022-10-03] MEDS ORDERED: SERTRALINE HCL 50 MG TABLET PO SCH (13:25)
[2022-10-03] MEDS: BACLOFEN 10 MG TABLET GT SCH ×3 (13:47→23:14)
[2022-10-03] MEDS: SERTRALINE HCL 50 MG TABLET GT SCH (13:48)
[2022-10-03] MEDS ORDERED: Medication Not On Formulary EA (Protein Supplement (Promod) 30 ML) GT SCH (14:00)
[2022-10-03 14:15] VITALS: BP 105/40
[2022-10-03] MEDS: MIDODRINE HCL 5 MG TABLET PO SCH ×2 (14:16→21:11)
[2022-10-03] MEDS: PROTEIN SUPPLEMENT (PROSTAT) 30 ML LIQUID GT SCH ×2 (14:18→21:11)
[2022-10-03] MEDS: GLUCERNA 1.2 1000ML LIQUID GT PRN (14:42)
--- NOTE | 2022-10-03 14:42 | NUR ---
tube fdg glucerna 1.2 at 45ml/hr started, no residual noted prior to fdg, aspiration precautions observed, suctioned orally prn of thick yellow phlegm, head of bed elevated.
[2022-10-03] MEDS: CEFEPIME HCL 2 G in IV DEXTROSE 5% 100 ML IV SCH ×2 (14:46→21:11)
--- NOTE | 2022-10-03 15:00 | NUR ---
endorsed care to another RN
--- NOTE | 2022-10-03 15:07 | NUR ---
Awake, alert on air mattress. Trach with 5L P mist. Secretions suctioned, specimen sent to lab. with G Tube feedings. Left buttocks with wound vac intact.
[2022-10-03] MEDS: ALBUTEROL SULFATE 2.5 MG/3 ML NEBU NEB SCH ×3 (15:20→23:22)
[2022-10-03] MEDS: IPRATROPIUM BROMIDE 0.5 MG/2.5 ML NEBU NEB SCH ×3 (15:21→23:22)
[2022-10-03] MEDS ORDERED: IPRATROPIUM BROMIDE 0.5 MG/2.5 ML NEBU NEB SCH ×2 (15:30)
[2022-10-03] MEDS ORDERED: ALBUTEROL SULFATE 2.5 MG/3 ML NEBU NEB SCH (15:30)
[2022-10-03] MEDS ORDERED: ALBUTEROL SULFATE 2.5 MG/ 0.5 ML NEBU NEB SCH (15:30)
[2022-10-03 16:00] VITALS: BP 109/42
[2022-10-03] MEDS: ARGININE/GLUTAMINE/CALCIUM BMB 1 EACH POWD.PACK GT SCH (18:00)
[2022-10-03] MEDS ORDERED: Medication Not On Formulary EA (Argin/Glut/Cahmb/Collag/Mv-Min (Juven Packet) 1 EACH) GT SCH (18:00)
[2022-10-03] MEDS: OMEGA-3 FATTY ACIDS/FISH OIL CAPSULE GT SCH (18:34)
--- NOTE | 2022-10-03 19:00 | NUR ---
Oral and trach secretions suctioned. O2 at 5L with O2 sat of 98-100%. Afebrile.
--- NOTE | 2022-10-03 19:30 | NUR ---
Received patient lying in bed. AAOx4. In no acute distress. Denies any pain or SOB. Trach intact with O2 at 5LPM. O2 sat at 100%. Midline on right upper arm intact and patent. NSR on tele with HR of 94/min. GT feeding infusing. Wound vac intact and draining. Isolation precaution observed. Safety measure initiated. Continue to monitor.
[2022-10-03] MEDS: ASCORBIC ACID 500 MG TABLET GT SCH (20:16)
[2022-10-03] MEDS: ACIDOPHILUS/BULGARICUS CHEW TAB GT SCH (20:17)
[2022-10-03] MEDS: MULTIVIT, IRON, MIN NO. 8, FA TABLET GT SCH (20:17)
[2022-10-03] MEDS: ACETAMINOPHEN 325 MG TABLET GT SCH (20:17)
[2022-10-03] MEDS: SIMVASTATIN 10 MG TABLET GT SCH (20:17)
[2022-10-03] MEDS ORDERED: ACETAMINOPHEN 325 MG TABLET-SA PATIENTS-PAIN ONLY GT SCH (20:30)
[2022-10-03 20:34] VITALS: BP 100/49
[2022-10-03] MEDS ORDERED: MULTIVITAMIN GT SCH (21:00)
[2022-10-03] MEDS ORDERED: Medication Not On Formulary EA (Acidophilus/Bulgaricus (Floranex Tablet) 1 EACH) GT SCH (21:00)
[2022-10-03] MEDS ORDERED: Medication Not On Formulary EA (Ascorbic Acid (Vitamin C) 500 MG) GT SCH (21:00)
[2022-10-03] MEDS ORDERED: [UNRECOGNIZED DRUG - OTHER] GT SCH (21:00)
[2022-10-03] MEDS ORDERED: Medication Not On Formulary EA (Methenamine Hippurate 1 GM) GT SCH (21:00)
[2022-10-04 00:07] VITALS: BP 100/45
[2022-10-04] MEDS: IPRATROPIUM BROMIDE 0.5 MG/2.5 ML NEBU NEB SCH ×6 (03:39→23:24)
[2022-10-04] MEDS: ALBUTEROL SULFATE 2.5 MG/3 ML NEBU NEB SCH ×6 (03:39→23:24)
[2022-10-04 04:14] VITALS: BP 98/48
[2022-10-04] MEDS: MIDODRINE HCL 5 MG TABLET PO SCH ×3 (05:04→21:03)
[2022-10-04] MEDS: OMEGA-3 FATTY ACIDS/FISH OIL CAPSULE GT SCH ×2 (05:04→18:04)
[2022-10-04] MEDS: PANTOPRAZOLE ORAL SUSPENSION 40 MG SUSPDR.PKT GT SCH (05:04)
[2022-10-04] MEDS: BACLOFEN 10 MG TABLET GT SCH ×4 (05:04→23:09)
[2022-10-04] MEDS: PROTEIN SUPPLEMENT (PROSTAT) 30 ML LIQUID GT SCH ×3 (05:05→21:03)
[2022-10-04] MEDS: CEFEPIME HCL 2 G in IV DEXTROSE 5% 100 ML IV SCH ×3 (05:05→21:04)
--- NOTE | 2022-10-04 05:45 | NUR ---
No adverse reaction noted from IV antibiotic. NSR on tele with HR of 85/min. GT feeding and flushing well tolerated. Suction secretions PRN and able to obtain small amount of whitish phlegm. Wound vac intact. Dressing change to wound on sacral area. Turn and reposition for comfort. Safety measure maintained. Isolation precaution maintained.
[2022-10-04] MEDS: ARGININE/GLUTAMINE/CALCIUM BMB 1 EACH POWD.PACK GT SCH ×2 (05:48→18:00)
[2022-10-04] MEDS ORDERED: Medication Not On Formulary EA (Omeprazole 20 MG) GT SCH (06:00)
[2022-10-04 07:25] LABS: MEAN CORPUSCULAR HEMOGLOBIN 25.3 uug (24.7-32.8); MEAN CORPUSCULAR VOLUME 83.4 fL (75.5-95.3); PLATELET COUNT (AUTO) 342 K/uL (179-408)
--- NOTE | 2022-10-04 07:51 | NUR ---
Awake, alert, on moderate high back rest on first mattress. Trach with 5 L. With G tube feedings.
[2022-10-04 08:06] LABS: BILIRUBIN,TOTAL 0.3 mg/dL (0.2-1.0); CREATININE 0.8 mg/dL (0.6-1.3); POTASSIUM 3.8 mmol/L (3.5-5.1); TOTAL PROTEIN, SERUM 7.9 g/dL (6.4-8.2)
--- NOTE | 2022-10-04 10:02 | NUR ---
WOUND CARE CONSULT: PT PRESENTS WITH STAGE 4 PRESSURE ULCERS TO LEFT BUTTOCK AND SACRUM, PRESENT ON ADMISSION. MILD ODOR NOTED TO LEFT BUTTOCK WOUND WHEN MEDELA NEGATIVE PRESSURE WOUND THERAPY DRESSING REMOVED. 100cc RED/BROWN DRAINAGE IN DISCARDED CANISTER. DISCUSSED WITH SURGICAL N.P. CURRENTLY ON CASE. ORDERS RECEIVED TO HOLD MEDELA DEVICE FOR NOW AND NEW WOUND TREATMENT ORDERS RECEIVED AND DISCUSSED WITH NURSING STAFF. PT IS ON FIRST STEP CIRRUS LOW AIRLOSS MATTRESS. PT IS INCONTINENT. DISCUSSED SKIN PROTECTION WITH NURSING STAFF. IN AGREEMENT WITH PLAN OF CARE. Addendum: 10/04/22 at 1005 by JOSE FALCON RN Amended: Links added.
[2022-10-04] MEDS: ACIDOPHILUS/BULGARICUS CHEW TAB GT SCH ×2 (10:19→20:13)
[2022-10-04] MEDS: ACETAMINOPHEN 325 MG TABLET GT SCH ×2 (10:20→20:13)
[2022-10-04] MEDS: SODIUM HYPOCHLORITE 0.125% (QUARTER STRENGTH) 473 ML BOTTLE TP SCH (10:59)
[2022-10-04] MEDS ORDERED: Medication Not On Formulary EA (Sertraline Hcl (Zoloft) 25 MG) GT SCH (12:00)
--- NOTE | 2022-10-04 12:00 | NUR ---
Wound care done as ordered. Repositioned comfortably.
[2022-10-04] MEDS: VANCOMYCIN IV 1,000 MG in IV DEXTROSE 5% 250 ML IV SCH (12:55)
[2022-10-04] MEDS: SERTRALINE HCL 50 MG TABLET GT SCH (12:55)
[2022-10-04 13:00] VITALS: BP 102/48
--- NOTE | 2022-10-04 15:00 | NUR ---
With loose BM, foul smelling. Specimen sent to lab for C diff. Wound care done again as ordered to sacral and left buttocks. Incontinence care done. Repositioned comfortably.
[2022-10-04 16:00] VITALS: BP 97/41
[2022-10-04 16:38] LABS: *BILIRUBIN,URIN NEGATIVE (NEGATIVE); *BLOOD, URINE 3+ (NEGATIVE); *CLARITY,URINE SLIGHTLY CLOUDY (CLEAR); *COLOR,URINE YELLOW (YELLOW); *KETONES,URINE NEGATIVE (NEGATIVE); *UROBILINOGEN,URINE 0.2 E.U./dl (NORMAL); LEUKOCYTE ESTERASE ,URINE 3+ (NEGATIVE); NITRITE, URINE NEGATIVE (NEGATIVE); UGLUCOSE NEGATIVE (NEGATIVE)
[2022-10-04] MEDS: GLUCERNA 1.2 1000ML LIQUID GT PRN (18:22)
--- NOTE | 2022-10-04 18:53 | NUR ---
Oral and trach secretions suctioned. Tolerating G tube feedings. Afebrile. Trach with 5L with O2 sat of 100%.
--- NOTE | 2022-10-04 19:47 | NUR ---
Received patient lying in bed. AAOx4. In no acute distress. Denies any pain or SOB. Trach intact with O2 at 5LPM. NSR on tele with HR of 93/min. Midline on right upper arm intact and patent. GT feeding infusing. Isolation precaution observed. Safety measure initiated.
[2022-10-04 20:00] VITALS: BP 100/30
[2022-10-04] MEDS: ASCORBIC ACID 500 MG TABLET GT SCH (20:13)
[2022-10-04] MEDS: SIMVASTATIN 10 MG TABLET GT SCH (20:13)
[2022-10-04] MEDS: MULTIVIT, IRON, MIN NO. 8, FA TABLET GT SCH (20:13)
[2022-10-04] MEDS: HYDROCODONE/APAP 10-325 MG TABLET GT PRN (23:09)
[2022-10-05] VITALS: BP 101/39
[2022-10-05] MEDS: IPRATROPIUM BROMIDE 0.5 MG/2.5 ML NEBU NEB SCH ×6 (03:29→23:41)
[2022-10-05] MEDS: ALBUTEROL SULFATE 2.5 MG/3 ML NEBU NEB SCH ×6 (03:29→23:41)
[2022-10-05 04:00] VITALS: BP 98/39
[2022-10-05] MEDS: MIDODRINE HCL 5 MG TABLET PO SCH ×3 (05:17→21:03)
[2022-10-05] MEDS: PANTOPRAZOLE ORAL SUSPENSION 40 MG SUSPDR.PKT GT SCH (05:17)
[2022-10-05] MEDS: BACLOFEN 10 MG TABLET GT SCH ×4 (05:17→23:12)
[2022-10-05] MEDS: OMEGA-3 FATTY ACIDS/FISH OIL CAPSULE GT SCH ×2 (05:17→17:30)
[2022-10-05] MEDS: ARGININE/GLUTAMINE/CALCIUM BMB 1 EACH POWD.PACK GT SCH ×2 (05:18→17:57)
[2022-10-05] MEDS: CEFEPIME HCL 2 G in IV DEXTROSE 5% 100 ML IV SCH ×3 (05:18→21:02)
[2022-10-05] MEDS: PROTEIN SUPPLEMENT (PROSTAT) 30 ML LIQUID GT SCH ×3 (05:18→21:02)
--- NOTE | 2022-10-05 05:44 | NUR ---
No adverse reaction noted from IV antibiotic. NSR on tele with HR of 85/min. GT feeding and flushing well tolerated. Suction secretions PRN and able to obtain moderate amount of whitish phlegm. Needs attended to and met. Safety measure maintained. Isolation precaution maintained.
[2022-10-05 06:38] LABS: ABG BASE EXCESS 5.9 mmol/L; ABG HCO3 30.6 mmol/L; ABG PCO2 45.2 mmHg (35.0-45.0); ABG PH 7.448 (7.350-7.450); ABG PO2 186.9 mmHg (75.0-100.0); ABG SITE RIGHT RADIAL; ABG TOTAL HEMOGLOBIN 9.1 G/dL (12.0-16.0); MetHb 0.3 % (0.0-1.5)
[2022-10-05 07:14] LABS: CREATININE 0.8 mg/dL (0.6-1.3); POTASSIUM 3.5 mmol/L (3.5-5.1)
--- NOTE | 2022-10-05 07:15 | NUR ---
Telemetry Nursing Notes: Patient is in bed awake, with no S/S of distress, denies pain or discomforts, Trach intact and patent, with no S/S of respiratory distress. Will continue to monitor.
[2022-10-05 08:06] VITALS: BP 104/45
[2022-10-05] MEDS: ACETAMINOPHEN 325 MG TABLET GT SCH ×2 (09:24→20:49)
[2022-10-05] MEDS: ACIDOPHILUS/BULGARICUS CHEW TAB GT SCH ×2 (09:24→20:49)
[2022-10-05] MEDS: SODIUM HYPOCHLORITE 0.125% (QUARTER STRENGTH) 473 ML BOTTLE TP SCH (09:26)
--- NOTE | 2022-10-05 10:52 | NUR ---
WOUND CARE FOLLOW UP: WHITE SHOE EXAMINER (WOUND NURSE) HERE TO ASSIST NURSING STAFF WITH MEDELA NEGATIVE PRESSURE WOUND THERAPY DRESSING CHANGE FOR LEFT BUTTOCK BUT [facility] [employer] HAS MEDELA DRESSINGS ON ORDER, EXPECTED ARRIVAL TOMORROW. NOTIFIED VISCOSITY WORKER, CNO AND SURGICAL TEAM. CONTINUE PACKING WOUNDS WITH DAKINS MOISTENED KERLIX AND COVER WITH OPTIFOAM. DISCUSSED WITH NURSING STAFF. MD IN AGREEMENT WITH PLAN OF CARE.
[2022-10-05 12:00] VITALS: BP 109/62
[2022-10-05] MEDS: SERTRALINE HCL 50 MG TABLET GT SCH (12:28)
[2022-10-05] MEDS: VANCOMYCIN IV 1,000 MG in IV DEXTROSE 5% 250 ML IV SCH (13:31)
[2022-10-05 16:00] VITALS: BP 119/46
[2022-10-05] MEDS: HYDROCODONE/APAP 10-325 MG TABLET GT PRN (16:19)
--- NOTE | 2022-10-05 18:11 | NUR ---
Telemetry Nursing notes: Awake, respiration even and unlabored, no S/S of discomforts. S/R HRT 92, Trach intact and patent, breathing treatment as ordered tolerated well, Gt site is clean dry, reposition in bed q 2 hours and as need it. wound care done as ordered, fall and safety precautions implemented, emotional support provided.
--- NOTE | 2022-10-05 19:51 | NUR ---
Received patient lying in bed. AAOx4. In no acute distress. No complain of pain or SOB at this time. Trach intact with O2 at 5LPM. NSR on tele with HR of 03/min. Midline on right upper arm intact and patent. GT feeding infusing. Needs assessed and attended to. Isolation precaution observed. Safety measure initiated.
[2022-10-05 20:00] VITALS: BP 101/41
[2022-10-05] MEDS: SIMVASTATIN 10 MG TABLET GT SCH (20:49)
[2022-10-05] MEDS: ASCORBIC ACID 500 MG TABLET GT SCH (20:49)
[2022-10-05] MEDS: MULTIVIT, IRON, MIN NO. 8, FA TABLET GT SCH (20:49)
[2022-10-06] VITALS: BP 109/61
[2022-10-06] MEDS: ALBUTEROL SULFATE 2.5 MG/3 ML NEBU NEB SCH ×6 (03:54→22:36)
[2022-10-06] MEDS: IPRATROPIUM BROMIDE 0.5 MG/2.5 ML NEBU NEB SCH ×6 (03:54→22:36)
[2022-10-06 04:00] VITALS: BP 111/57
[2022-10-06] MEDS: OMEGA-3 FATTY ACIDS/FISH OIL CAPSULE GT SCH ×2 (05:17→17:38)
[2022-10-06] MEDS: ARGININE/GLUTAMINE/CALCIUM BMB 1 EACH POWD.PACK GT SCH ×2 (05:17→17:38)
[2022-10-06] MEDS: PROTEIN SUPPLEMENT (PROSTAT) 30 ML LIQUID GT SCH ×3 (05:17→21:43)
[2022-10-06] MEDS: BACLOFEN 10 MG TABLET GT SCH ×3 (05:17→17:57)
[2022-10-06] MEDS: CEFEPIME HCL 2 G in IV DEXTROSE 5% 100 ML IV SCH ×3 (05:17→21:43)
[2022-10-06] MEDS: PANTOPRAZOLE ORAL SUSPENSION 40 MG SUSPDR.PKT GT SCH (05:17)
[2022-10-06] MEDS: MIDODRINE HCL 5 MG TABLET PO SCH ×3 (05:18→21:43)
--- NOTE | 2022-10-06 05:46 | NUR ---
No adverse reaction noted from IV antibiotic. NSR on tele with HR of 84/min. GT feeding and flushing well tolerated. Turn and repositioned for comfort. Needs attended to and met. Safety measure maintained. Isolation precaution maintained.
--- NOTE | 2022-10-06 09:45 | NUR ---
MORING MEDS ADMINISTERED PRESCRIBED
--- NOTE | 2022-10-06 09:58 | NUR ---
WOUND CARE FOLLOW UP: PT SEEN FOR LEFT BUTTOCK MEDELA NEGATIVE PRESSURE WOUND THERAPY DRESSING CHANGE. SKIN PREP AND DRAPE TO PERIWOUND AREA, BLACK SPONGE TO WOUND. NPWT AT 125mmHg. NO DRAINAGE IN CANISTER AT THIS TIME. RECOMMEND SURGICAL FOLLOW UP. NEXT DRESSING CHANGE PLANNED FOR MondayOCTOBER 10. DISCUSSED SKIN PROTECTION WITH NURSING STAFF. PT IS INCONTINENT. IN AGREEMENT WITH PLAN OF CARE. Addendum: 10/06/22 at 1002 by JOSE FALCON RN PT TOLERATED PROCEDURE WELL.
--- NOTE | 2022-10-06 10:03 | NUR ---
REQUEST FOR CATHETERIZATION ORDER - AWAIT RESPONSE - PATIENT HAS A WOUND VAC
[2022-10-06] MEDS: SODIUM HYPOCHLORITE 0.125% (QUARTER STRENGTH) 473 ML BOTTLE TP SCH (11:07)
[2022-10-06] MEDS: ACETAMINOPHEN 325 MG TABLET GT SCH ×2 (11:07→20:29)
[2022-10-06] MEDS: ACIDOPHILUS/BULGARICUS CHEW TAB GT SCH ×2 (11:07→20:29)
--- NOTE | 2022-10-06 11:31 | NUR ---
CATHETERIZATION: 1) Catheterized with a 16Fr - urine milky color, slightly offensive, a few sediments. 2) Sample sent to lab - wait results.
[2022-10-06 11:39] VITALS: BP 106/46
[2022-10-06] MEDS: SERTRALINE HCL 50 MG TABLET GT SCH (12:32)
[2022-10-06] MEDS: VANCOMYCIN IV 1,000 MG in IV DEXTROSE 5% 250 ML IV SCH (13:27)
--- NOTE | 2022-10-06 13:30 | NUR ---
BREATHIN) Patient requires suctioning PRN 2) Mouth care maintained 3) Will continue to give care accordingly
--- NOTE | 2022-10-06 15:28 | NUR ---
ROUNDING - No change in condition
[2022-10-06 16:01] VITALS: BP 123/63
--- NOTE | 2022-10-06 17:34 | NUR ---
PULMONARY MD REVIEW: 1) Reviewed this evening by MD 2) No new orders provided
--- NOTE | 2022-10-06 18:50 | NUR ---
HANDOVER TO NIGHT NURSES: 1) No change in condition 2) Will endorse care to night staff who will continue to assess, plan, implement and treat accordingly
--- NOTE | 2022-10-06 19:30 | NUR ---
Received patient lying in bed. AAOx4. In no acute distress. No complain of pain or SOB at this time. Trach intact with O2 at 5LPM. NSR on tele with HR of 92/min. Midline on right upper arm intact and patent. GT feeding infusing. Wound vac and Perea catheter in place. Isolation precaution observed. Safety measure initiated.
[2022-10-06] MEDS: SIMVASTATIN 10 MG TABLET GT SCH (20:29)
[2022-10-06] MEDS: ASCORBIC ACID 500 MG TABLET GT SCH (20:29)
[2022-10-06] MEDS: MULTIVIT, IRON, MIN NO. 8, FA TABLET GT SCH (20:29)
[2022-10-06 20:40] VITALS: BP 108/40
[2022-10-07] MEDS: BACLOFEN 10 MG TABLET GT SCH ×3 (00:02→13:20)
[2022-10-07 00:04] VITALS: BP 99/40
[2022-10-07] MEDS: ALBUTEROL SULFATE 2.5 MG/3 ML NEBU NEB SCH ×4 (03:53→14:55)
[2022-10-07] MEDS: IPRATROPIUM BROMIDE 0.5 MG/2.5 ML NEBU NEB SCH ×4 (03:53→14:55)
[2022-10-07 04:00] VITALS: BP 105/44
[2022-10-07] MEDS: PROTEIN SUPPLEMENT (PROSTAT) 30 ML LIQUID GT SCH ×2 (05:07→13:22)
[2022-10-07] MEDS: CEFEPIME HCL 2 G in IV DEXTROSE 5% 100 ML IV SCH ×2 (05:07→15:38)
[2022-10-07] MEDS: MIDODRINE HCL 5 MG TABLET PO SCH ×2 (05:07→13:20)
[2022-10-07] MEDS: OMEGA-3 FATTY ACIDS/FISH OIL CAPSULE GT SCH (05:07)
[2022-10-07] MEDS: PANTOPRAZOLE ORAL SUSPENSION 40 MG SUSPDR.PKT GT SCH (05:07)
[2022-10-07] MEDS: HYDROCODONE/APAP 10-325 MG TABLET GT PRN (05:24)
[2022-10-07] MEDS: ARGININE/GLUTAMINE/CALCIUM BMB 1 EACH POWD.PACK GT SCH (05:35)
--- NOTE | 2022-10-07 06:23 | NUR ---
Hydrocodone given via GT for complain of pain and effective. No adverse reaction noted from IV antibiotic. NSR on tele with HR of 91/min. GT feeding and flushing well tolerated. Wound vac and Perea remains intact and patent. Needs attended to and met. Safety measure maintained. Isolation precaution maintained.
[2022-10-07 06:49] LABS: HEMATOCRIT 27.5 % (31.2-41.9); MEAN CORPUSCULAR HEMOGLOBIN 25.3 uug (24.7-32.8); MEAN CORPUSCULAR VOLUME 82.3 fL (75.5-95.3); PLATELET COUNT (AUTO) 261 K/uL (179-408)
[2022-10-07 07:44] LABS: CREATININE 0.8 mg/dL (0.6-1.3); MAGNESIUM 2.2 mg/dL (1.8-2.4); PHOSPHOROUS 3.7 mg/dL (2.5-4.9); POTASSIUM 3.9 mmol/L (3.5-5.1)
[2022-10-07] MEDS ORDERED: ACETAMINOPHEN 650 MG/20.3 ML LIQUID UDC GT SCH (08:27)
[2022-10-07] MEDS: ACIDOPHILUS/BULGARICUS CHEW TAB GT SCH (09:27)
[2022-10-07] MEDS: SODIUM HYPOCHLORITE 0.125% (QUARTER STRENGTH) 473 ML BOTTLE TP SCH (09:28)
[2022-10-07 11:30] VITALS: BP 101/42
[2022-10-07] MEDS ORDERED: VANC1PLA9 IV (11:33)
[2022-10-07] MEDS ORDERED: CEFE2FRO IV (11:33)
--- NOTE | 2022-10-07 11:35 | NUR ---
WOUND CARE: MEDELA NEGATIVE PRESSURE WOUND THERAPY DEVICE FUNCTIONING WELL TO LEFT BUTTOCK WOUND AT 125mmHg. SCANT AMOUNT OF RED DRAINAGE IN CANISTER. SURGICAL FOLLOW UP RECOMMENDED.
[2022-10-07] MEDS: SERTRALINE HCL 50 MG TABLET GT SCH (13:20)
[2022-10-07] MEDS: VANCOMYCIN IV 1,000 MG in IV DEXTROSE 5% 250 ML IV SCH (13:40)
[2022-10-07 16:10] VITALS: BP 106/47
--- NOTE | 2022-10-07 18:01 | NUR ---
pt is discharge. report given to betito maldonado of [facility] sub acute unit. pt aox2-3. non verbal. able to make needs known. pt is in no acute distress. denies pain or shortness of breath. pt will continue abx tx in sub acute per md. sacral and ischium wound noted and present from admission. ischium wound is on wound vac. FRANCESCA midline patent and intact. fc draining well with concepción color urine output. pt tolerated Gtube feeding well. pt will be transfer back to her old room at 322.
== END 2022-10-07 17:45 | DRG 871 ==
LOC: ER 07:51 → TELE3 10:54
PROVIDERS: ADMIT Internal Medicine; ATTEND Internal Medicine
DX: A41.9 Sepsis, unspecified organism (principal); E43 Unspecified severe protein-calorie malnutrition; J69.0 Pneumonitis due to inhalation of food and vomit; L89.154 Pressure ulcer of sacral region, stage 4; L89.324 Pressure ulcer of left buttock, stage 4; J96.21 Acute and chronic respiratory failure with hypoxia; J98.11 Atelectasis; N13.6 Pyonephrosis; G93.49 Other encephalopathy; D68.59 Other primary thrombophilia; M86.8X8 Other osteomyelitis, other site; I69.154 Hemiplegia and hemiparesis following nontraumatic intracerebral hemorrhage affecting left non-dominant side; Z16.24 Resistance to multiple antibiotics; Z93.0 Tracheostomy status; Z66 Do not resuscitate; Z20.822 Contact with and (suspected) exposure to COVID-19; Z93.1 Gastrostomy status; Z88.1 Allergy status to other antibiotic agents; R32 Unspecified urinary incontinence; R15.9 Full incontinence of feces; I69.198 Other sequelae of nontraumatic intracerebral hemorrhage; M62.838 Other muscle spasm; M62.49 Contracture of muscle, multiple sites; K21.9 Gastro-esophageal reflux disease without esophagitis; Z86.15 Personal history of latent tuberculosis infection; Z86.718 Personal history of other venous thrombosis and embolism; I69.122 Dysarthria following nontraumatic intracerebral hemorrhage; I69.191 Dysphagia following nontraumatic intracerebral hemorrhage; R13.10 Dysphagia, unspecified; E78.5 Hyperlipidemia, unspecified; F32.A Depression, unspecified; D69.6 Thrombocytopenia, unspecified; D64.9 Anemia, unspecified; Z22.39 Carrier of other specified bacterial diseases; Z87.440 Personal history of urinary (tract) infections; B96.4 Proteus (mirabilis) (morganii) as the cause of diseases classified elsewhere; Z74.01 Bed confinement status; Z90.49 Acquired absence of other specified parts of digestive tract
CPT/HCPCS: 36415; 36600; 71045; 76604; 83605; 83735; 84100; 85025; 87040; 93005; 94640; 94664; 94760; 99082-TC; A4663; A6209; A6213; C1758; G0378; J0692; J3370; J3590; J7040; J7050

== ENCOUNTER 2023-03-27 13:57 | Inpatient (IN) | payer MEDICARE, OTHER ==
[2023-03-27] VITALS (9 sets, daily range): BP systolic 83–95; BP diastolic 42–50; TEMP 98.7; O2SAT 98–100
[~2023-03-27] VITALS: Ht 165.1 cm; Wt 59.9 kg
[~2023-03-27 13:57] MED LIST changes: +BACL10TA GT; -CEFE1PIG3 IV; +CEFE2FRO IV; +HYDR-3980 GT; -HYDR-4209 GT; +METH1TAB69 GT; +NITR50CA PO; +VANC1PLA9 IV
[2023-03-27] MEDS ORDERED: CEFEPIME HCL 2 G in IV DEXTROSE 5% 100 ML IV ONE (14:15)
[2023-03-27] MEDS ORDERED: VANCOMYCIN 1G/D5W 200 ML PIGGYBACK IV ONE (14:15)
[2023-03-27] MEDS ORDERED: AZITHROMYCIN IV 500 MG in IV DEXTROSE 5% 250 ML IV ONE (14:15)
[2023-03-27 14:31] LABS: ABG BASE EXCESS 1.7 mmol/L; ABG HCO3 26.7 mmol/L; ABG PCO2 43.8 mmHg (35.0-45.0); ABG PH 7.403 (7.350-7.450); ABG PO2 170.9 mmHg (75.0-100.0); ABG SITE RIGHT RADIAL; ABG TOTAL HEMOGLOBIN 10.1 G/dL (12.0-16.0); COHb 0.3 % (0.5-1.5); MetHb 0.1 % (0.0-1.5); O2Hb 98.5 % (94.0-97.0)
[2023-03-27] MEDS ORDERED: VANCOMYCIN IV 200 ML ONE (14:31)
[2023-03-27 14:39] LABS: BASOPHILS # (AUTO) 0.1 K/UL (0.0-0.2); BASOPHILS % (AUTO) 1.3 % (0.0-2.0); EOSINOPHILS # (AUTO) 0.3 K/uL (0.0-0.7); EOSINOPHILS % (AUTO) 4.2 % (0.0-7.0); HEMATOCRIT 30.4 % (31.2-41.9); HEMOGLOBIN 8.9 g/dL (10.9-14.3); LYMPHOCYTES # (AUTO) 1.9 K/uL (0.8-4.8); MEAN CORPUSCULAR HEMOGLOBIN 24.5 uug (24.7-32.8); MEAN CORPUSCULAR HGB CONC 29 g/dL (32.3-35.6); MEAN CORPUSCULAR VOLUME 83.6 fL (75.5-95.3); MONOCYTES # (AUTO) 0.4 K/uL (0.1-1.30); MONOCYTES % (AUTO) 6.3 % (0.0-11.0); NEUTROPHILS # (AUTO) 4.1 K/uL (1.8-8.9); NEUTROPHILS % (AUTO) 60.2 % (38.5-71.5); PLATELET COUNT (AUTO) 118 K/uL (179-408); RED BLOOD CELL COUNT(AUTO) 3.63 MIL/uL (3.63-4.92); RED CELL DISTRIBUTION WIDTH 24.7 % (12.3-17.7); WHITE BLOOD COUNT (AUTO) 6.9 K/uL (3.8-11.8)
[2023-03-27] MEDS ORDERED: NUT.237L30 GT (14:39)
[2023-03-27] MEDS ORDERED: APIX2.5T PO (14:39)
[2023-03-27] MEDS ORDERED: CEFE1VIA3 IJ (14:39)
[2023-03-27] MEDS ORDERED: FOSF3PAC GT (14:39)
[2023-03-27] MEDS ORDERED: CEFEPIME HCL 2 GM VIAL ONE (14:39)
[2023-03-27] MEDS ORDERED: LOPE2CAP GT (14:39)
[2023-03-27] MEDS ORDERED: VITA113O5 TP (14:39)
[2023-03-27 15:15] LABS: CALCIUM 8.5 mg/dL (8.5-10.1); CARBON DIOXIDE 29 mmol/L (21-32); CHLORIDE 120 mmol/L (98-107); CREATININE 0.9 mg/dL (0.6-1.3); GLUCOSE 103 mg/dL (74-106); POTASSIUM 3.3 mmol/L (3.5-5.1); UREA NITROGEN, BLOOD 64 mg/dL (7-18)
[2023-03-27 15:27] LABS: SODIUM SERUM 156 mmol/L (136-145)
[2023-03-27 15:28] LABS: DIFFERENTIAL COMMENT 1
[2023-03-27 15:42] LABS: ALANINE AMINOTRANSFERASE 13 U/L (14-59); ALBUMIN 2.3 g/dL (3.4-5.0); ALKALINE PHOSPHATASE 49 U/L (50-136); ASPARTATE AMINOTRANSFERASE 14 U/L (15-37); BILIRUBIN,DIRECT < 0.1 mg/dL (0.0-0.2); BILIRUBIN,TOTAL 0.4 mg/dL (0.2-1.0); NT-PRO BNP 100 pg/mL (0-125); TOTAL PROTEIN, SERUM 3.6 g/dL (6.4-8.2)
[2023-03-27 15:55] LABS: *BILIRUBIN,URIN NEGATIVE (NEGATIVE); *BLOOD, URINE 3+ (NEGATIVE); *CLARITY,URINE CLOUDY (CLEAR); *COLOR,URINE YELLOW (YELLOW); *KETONES,URINE NEGATIVE (NEGATIVE); *UROBILINOGEN,URINE 0.2 E.U./dl (NORMAL); LEUKOCYTE ESTERASE ,URINE 3+ (NEGATIVE); NITRITE, URINE NEGATIVE (NEGATIVE); PH,URINE 6.5 (5.0-8.0); UGLUCOSE NEGATIVE (NEGATIVE)
[2023-03-27 16:02] LABS: *PROTEIN,URINE 3+ (NEGATIVE)
[2023-03-27 16:14] LABS: RBC,URINE 50-80 /HPF (0-3)
[2023-03-27] MEDS ORDERED: AZITHROMYCIN 500MG/ D5W 250ML IVPB **ER PYXIS ONLY IV ONE (16:14)
[2023-03-27 16:15] LABS: BACTERIA,URINE MANY /HPF (NONE SEEN); SQUAMOUS EPITHELIAL CELL,UR FEW /HPF (NONE SEEN); WBC,URINE 50-80 /HPF (0-3); YEAST,URINE FEW /HPF (NONE SEEN)
[2023-03-27] MEDS ORDERED: levETIRAcetam IV 1,000 MG in IV DEXTROSE 5% 100 ML IV ONE (16:15)
[2023-03-27] MEDS ORDERED: IV NS 1000 ML 1,000 ML IV ONE (16:30)
[2023-03-27] MEDS ORDERED: REMEDY ESSENTIAL ZINC PASTE 113 GM TP PRN (18:15)
[2023-03-27] MEDS ORDERED: ACETAMINOPHEN 325 MG TABLET PO PRN (18:15)
[2023-03-27] MEDS ORDERED: HYDROCODONE/APAP 10-325 MG TABLET GT PRN (18:15)
[2023-03-27] MEDS ORDERED: ZOLPIDEM 5 MG TABLET PO PRN (18:15)
[2023-03-27] MEDS ORDERED: TEMAZEPAM 7.5 MG CAPSULE GT PRN (18:15)
[2023-03-27] MEDS ORDERED: MAGNESIUM HYDROXIDE 30 ML LIQUID UDC PO PRN (18:15)
[2023-03-27] MEDS ORDERED: LOPERAMIDE HCL 2 MG CAPSULE GT PRN (18:15)
[2023-03-27] MEDS ORDERED: ONDANSETRON 4 MG/2 ML VIAL IV PRN (18:15)
[2023-03-27] MEDS ORDERED: ENOXAPARIN SODIUM 40 MG/0.4 ML DISP.SYRIN SQ SCH (18:15)
[2023-03-27] MEDS ORDERED: NOREPINEPHRINE BITARTRATE 32 MG in IV NORMAL SALINE 218 ML IV PRN (18:45)
[2023-03-27] MEDS ORDERED: GLUCERNA 1.2 1000ML LIQUID GT PRN (18:45)
[2023-03-27] MEDS ORDERED: ACETAMINOPHEN 325 MG TABLET GT PRN (18:52)
[2023-03-27] MEDS ORDERED: MAGNESIUM HYDROXIDE 30 ML LIQUID UDC GT PRN (18:52)
[2023-03-27] MEDS: IV 1/2NS 1000 ML 1,000 ML IV PRN (19:09)
[2023-03-27] MEDS ORDERED: ACETAMINOPHEN 325 MG TABLET-SA PATIENTS-PAIN ONLY GT SCH (20:30)
[2023-03-27] MEDS: ALBUTEROL SULFATE 2.5 MG/ 0.5 ML NEBU NEB SCH ×2 (20:31→23:41)
[2023-03-27] MEDS: IPRATROPIUM BROMIDE 0.5 MG/2.5 ML NEBU NEB SCH ×2 (20:31→23:41)
[2023-03-27] MEDS ORDERED: MULTIVITAMIN GT SCH (21:00)
[2023-03-27] MEDS ORDERED: [UNRECOGNIZED DRUG - OTHER] GT SCH (21:00)
[2023-03-27] MEDS ORDERED: Medication Not On Formulary EA (Acidophilus/Bulgaricus (Floranex Tablet) 1 EACH) GT SCH (21:00)
[2023-03-27] MEDS ORDERED: Medication Not On Formulary EA (Ascorbic Acid (Vitamin C) 500 MG) GT SCH (21:00)
[2023-03-27] MEDS ORDERED: Methenamine Hippurate 1 GM) GT SCH (21:00)
[2023-03-27] MEDS: ACETAMINOPHEN 650 MG/20.3 ML LIQUID UDC GT SCH (21:49)
[2023-03-27] MEDS: MULTIVIT, IRON, MIN NO. 8, FA TABLET GT SCH (21:49)
[2023-03-27] MEDS: SIMVASTATIN 10 MG TABLET GT SCH (21:50)
[2023-03-27] MEDS: MIDODRINE HCL 5 MG TABLET GT SCH (21:50)
[2023-03-27] MEDS: ACIDOPHILUS/BULGARICUS CHEW TAB GT SCH (21:50)
[2023-03-27] MEDS: ASCORBIC ACID 500 MG TABLET GT SCH (21:50)
[2023-03-27] MEDS: PROTEIN SUPPLEMENT (PROSTAT) 30 ML LIQUID GT SCH (21:51)
[2023-03-27] MEDS ORDERED: Medication Not On Formulary EA (Protein Supplement (Promod) 30 ML) GT SCH (22:00)
[2023-03-28] VITALS (64 sets, daily range): BP systolic 83–114; BP diastolic 24–65; TEMP 98–98.4; O2SAT 98–100
[2023-03-28] MEDS: CEFEPIME HCL 1 G in IV DEXTROSE 5% 50 ML IV SCH ×4 (01:11→23:06)
[2023-03-28] MEDS: IPRATROPIUM BROMIDE 0.5 MG/2.5 ML NEBU NEB SCH ×6 (03:33→23:34)
[2023-03-28] MEDS: ALBUTEROL SULFATE 2.5 MG/ 0.5 ML NEBU NEB SCH ×6 (03:33→23:34)
[2023-03-28 05:14] LABS: BASOPHILS % (AUTO) 0.5 % (0.0-2.0); EOSINOPHILS # (AUTO) 0.3 K/uL (0.0-0.7); EOSINOPHILS % (AUTO) 3.7 % (0.0-7.0); HEMATOCRIT 28.8 % (31.2-41.9); HEMOGLOBIN 8.6 g/dL (10.9-14.3); LYMPHOCYTES # (AUTO) 1.1 K/uL (0.8-4.8); LYMPHOCYTES % (AUTO) 13.6 % (20.5-51.5); MEAN CORPUSCULAR HEMOGLOBIN 24.8 uug (24.7-32.8); MEAN CORPUSCULAR HGB CONC 30 g/dL (32.3-35.6); MEAN CORPUSCULAR VOLUME 82.9 fL (75.5-95.3); MONOCYTES # (AUTO) 0.4 K/uL (0.1-1.30); MONOCYTES % (AUTO) 4.6 % (0.0-11.0); NEUTROPHILS % (AUTO) 77.6 % (38.5-71.5); PLATELET COUNT (AUTO) 107 K/uL (179-408); RED BLOOD CELL COUNT(AUTO) 3.47 MIL/uL (3.63-4.92); RED CELL DISTRIBUTION WIDTH 24.4 % (12.3-17.7); WHITE BLOOD COUNT (AUTO) 7.8 K/uL (3.8-11.8)
[2023-03-28 05:17] LABS: DIFFERENTIAL COMMENT 1
[2023-03-28 05:26] LABS: CALCIUM 7.4 mg/dL (8.5-10.1); CREATININE 0.8 mg/dL (0.6-1.3); MAGNESIUM 2.2 mg/dL (1.8-2.4); PHOSPHOROUS 3.1 mg/dL (2.5-4.9); POTASSIUM 3.1 mmol/L (3.5-5.1)
[2023-03-28] MEDS: ARGININE/GLUTAMINE/CALCIUM BMB 1 EACH POWD.PACK GT SCH ×2 (06:00→18:05)
[2023-03-28] MEDS ORDERED: Medication Not On Formulary EA (Argin/Glut/Cahmb/Collag/Mv-Min (Juven Packet) 1 EACH) GT SCH (06:00)
[2023-03-28] MEDS: OMEGA-3 FATTY ACIDS/FISH OIL CAPSULE GT SCH ×2 (06:00→18:04)
[2023-03-28] MEDS: PROTEIN SUPPLEMENT (PROSTAT) 30 ML LIQUID GT SCH ×3 (06:00→21:46)
[2023-03-28] MEDS: MIDODRINE HCL 5 MG TABLET GT SCH ×3 (06:00→21:44)
[2023-03-28] MEDS: levETIRAcetam IV 500 MG in IV DEXTROSE 5% 100 ML IV SCH ×2 (06:33→18:04)
[2023-03-28] MEDS: ACETAMINOPHEN 650 MG/20.3 ML LIQUID UDC GT SCH ×2 (07:54→21:43)
[2023-03-28] MEDS: ACIDOPHILUS/BULGARICUS CHEW TAB GT SCH ×2 (07:54→21:43)
[2023-03-28] MEDS ORDERED: POTASSIUM CHLORIDE 20 MEQ POWDER PACKET GT ONE (08:15)
[2023-03-28] MEDS ORDERED: ALBUTEROL SULFATE 2.5 MG/3 ML NEBU NEB PRN (08:15)
[2023-03-28] MEDS ORDERED: PANTOPRAZOLE SODIUM 40 MG VIAL IV SCH (09:00)
[2023-03-28 10:43] LABS: THYROID STIMULATING HORMONE 0.877 mIU/mL (0.358-3.740)
[2023-03-28] MEDS: NOREPINEPHRINE BITARTRATE 8 MG in IV NORMAL SALINE 242 ML IV PRN (11:11)
[2023-03-28 11:20] LABS: VANCOMYCIN,RANDOM 16.9 ug/mL (20.0-30.0)
[2023-03-28] MEDS: IV 1/2NS 1000 ML 1,000 ML IV PRN ×2 (11:38→21:47)
[2023-03-28] MEDS ORDERED: Medication Not On Formulary EA (Sertraline Hcl (Zoloft) 25 MG) GT SCH (12:00)
[2023-03-28] MEDS: SERTRALINE HCL 50 MG TABLET GT SCH (13:48)
[2023-03-28] MEDS: VANCOMYCIN IV 1,000 MG in IV DEXTROSE 5% 250 ML IV SCH (16:07)
[2023-03-28] MEDS: SIMVASTATIN 10 MG TABLET GT SCH (21:44)
[2023-03-28] MEDS: MULTIVIT, IRON, MIN NO. 8, FA TABLET GT SCH (21:44)
[2023-03-28] MEDS: ASCORBIC ACID 500 MG TABLET GT SCH (21:44)
[2023-03-29] VITALS (61 sets, daily range): BP systolic 90–129; BP diastolic 35–67; TEMP 97.8–98.2; O2SAT 96–100
[2023-03-29] MEDS: IPRATROPIUM BROMIDE 0.5 MG/2.5 ML NEBU NEB SCH ×6 (03:42→23:33)
[2023-03-29] MEDS: ALBUTEROL SULFATE 2.5 MG/ 0.5 ML NEBU NEB SCH ×6 (03:42→23:33)
[2023-03-29 05:07] LABS: BASOPHILS # (AUTO) 0.1 K/UL (0.0-0.2); BASOPHILS % (AUTO) 0.9 % (0.0-2.0); EOSINOPHILS # (AUTO) 0.5 K/uL (0.0-0.7); EOSINOPHILS % (AUTO) 5.5 % (0.0-7.0); LYMPHOCYTES # (AUTO) 1.5 K/uL (0.8-4.8); LYMPHOCYTES % (AUTO) 16.7 % (20.5-51.5); MEAN CORPUSCULAR HEMOGLOBIN 24.8 uug (24.7-32.8); MEAN CORPUSCULAR HGB CONC 30 g/dL (32.3-35.6); MEAN CORPUSCULAR VOLUME 82.5 fL (75.5-95.3); MONOCYTES # (AUTO) 0.5 K/uL (0.1-1.30); MONOCYTES % (AUTO) 5.6 % (0.0-11.0); NEUTROPHILS # (AUTO) 6.3 K/uL (1.8-8.9); NEUTROPHILS % (AUTO) 71.3 % (38.5-71.5); PLATELET COUNT (AUTO) 107 K/uL (179-408); RED BLOOD CELL COUNT(AUTO) 3.64 MIL/uL (3.63-4.92); RED CELL DISTRIBUTION WIDTH 23.6 % (12.3-17.7); WHITE BLOOD COUNT (AUTO) 8.8 K/uL (3.8-11.8)
[2023-03-29 05:12] LABS: DIFFERENTIAL COMMENT 1
[2023-03-29 05:20] LABS: CALCIUM 7.8 mg/dL (8.5-10.1); CREATININE 0.8 mg/dL (0.6-1.3); MAGNESIUM 1.9 mg/dL (1.8-2.4); PHOSPHOROUS 2.4 mg/dL (2.5-4.9); POTASSIUM 3.3 mmol/L (3.5-5.1)
[2023-03-29] MEDS: OMEGA-3 FATTY ACIDS/FISH OIL CAPSULE GT SCH ×2 (06:08→18:30)
[2023-03-29] MEDS: levETIRAcetam IV 500 MG in IV DEXTROSE 5% 100 ML IV SCH (06:09)
[2023-03-29] MEDS: NOREPINEPHRINE BITARTRATE 8 MG in IV NORMAL SALINE 242 ML IV PRN (06:10)
[2023-03-29] MEDS: ARGININE/GLUTAMINE/CALCIUM BMB 1 EACH POWD.PACK GT SCH ×2 (06:11→18:33)
[2023-03-29] MEDS: PROTEIN SUPPLEMENT (PROSTAT) 30 ML LIQUID GT SCH ×3 (06:11→21:30)
[2023-03-29] MEDS: MIDODRINE HCL 5 MG TABLET GT SCH ×3 (06:11→21:30)
[2023-03-29] MEDS: PANTOPRAZOLE ORAL SUSPENSION 40 MG SUSPDR.PKT GT SCH (06:18)
[2023-03-29] MEDS: CEFEPIME HCL 1 G in IV DEXTROSE 5% 50 ML IV SCH (08:09)
[2023-03-29] MEDS: ACETAMINOPHEN 650 MG/20.3 ML LIQUID UDC GT SCH ×2 (08:23→21:28)
[2023-03-29] MEDS: ACIDOPHILUS/BULGARICUS CHEW TAB GT SCH ×2 (09:00→21:29)
[2023-03-29] MEDS ORDERED: POTASSIUM PHOSPHATE MM 15 MMOL in IV NORMAL SALINE 250 ML IV ONE ×2 (09:00→20:00)
[2023-03-29] MEDS ORDERED: GLUCERNA 1.2 1000ML LIQUID GT PRN (09:34)
[2023-03-29] MEDS: GENTAMICIN SULFATE INJ 120 MG in IV DEXTROSE 5% 100 ML IV SCH (12:01)
[2023-03-29] MEDS: IV 1/2NS 1000 ML 1,000 ML IV PRN (12:14)
[2023-03-29] MEDS: SERTRALINE HCL 50 MG TABLET GT SCH (12:20)
[2023-03-29] MEDS: MEROPENEM 1 G in IV NORMAL SALINE 100 ML IV SCH ×2 (15:20→21:30)
[2023-03-29] MEDS: VANCOMYCIN IV 1,000 MG in IV DEXTROSE 5% 250 ML IV SCH (16:01)
[2023-03-29] MEDS: levETIRAcetam 500 MG/5 ML LIQUID UDC GT SCH (18:30)
[2023-03-29] MEDS: MULTIVIT, IRON, MIN NO. 8, FA TABLET GT SCH (21:29)
[2023-03-29] MEDS: SIMVASTATIN 10 MG TABLET GT SCH (21:29)
[2023-03-29] MEDS: ASCORBIC ACID 500 MG TABLET GT SCH (21:29)
[2023-03-30] VITALS (39 sets, daily range): BP systolic 89–111; BP diastolic 38–58; TEMP 97.5–97.9; O2SAT 95–100
[2023-03-30] MEDS: GENTAMICIN SULFATE INJ 120 MG in IV DEXTROSE 5% 100 ML IV SCH ×2 (00:31→12:05)
[2023-03-30] MEDS: IPRATROPIUM BROMIDE 0.5 MG/2.5 ML NEBU NEB SCH ×5 (02:45→20:49)
[2023-03-30] MEDS: ALBUTEROL SULFATE 2.5 MG/ 0.5 ML NEBU NEB SCH ×5 (02:47→20:50)
[2023-03-30 05:05] LABS: BASOPHILS % (AUTO) 0.5 % (0.0-2.0); EOSINOPHILS # (AUTO) 0.4 K/uL (0.0-0.7); EOSINOPHILS % (AUTO) 4.3 % (0.0-7.0); HEMATOCRIT 28.8 % (31.2-41.9); HEMOGLOBIN 8.9 g/dL (10.9-14.3); LYMPHOCYTES # (AUTO) 1.6 K/uL (0.8-4.8); LYMPHOCYTES % (AUTO) 18.3 % (20.5-51.5); MEAN CORPUSCULAR HGB CONC 31 g/dL (32.3-35.6); MEAN CORPUSCULAR VOLUME 81.2 fL (75.5-95.3); MONOCYTES # (AUTO) 0.4 K/uL (0.1-1.30); NEUTROPHILS # (AUTO) 6.4 K/uL (1.8-8.9); NEUTROPHILS % (AUTO) 71.9 % (38.5-71.5); PLATELET COUNT (AUTO) 121 K/uL (179-408); RED BLOOD CELL COUNT(AUTO) 3.55 MIL/uL (3.63-4.92); RED CELL DISTRIBUTION WIDTH 23.5 % (12.3-17.7); WHITE BLOOD COUNT (AUTO) 8.9 K/uL (3.8-11.8)
[2023-03-30 05:09] LABS: DIFFERENTIAL COMMENT 1
[2023-03-30 05:15] LABS: CALCIUM 7.9 mg/dL (8.5-10.1); CREATININE 0.7 mg/dL (0.6-1.3); MAGNESIUM 1.9 mg/dL (1.8-2.4); PHOSPHOROUS 3.8 mg/dL (2.5-4.9); POTASSIUM 3.5 mmol/L (3.5-5.1)
[2023-03-30] MEDS: MEROPENEM 1 G in IV NORMAL SALINE 100 ML IV SCH ×3 (06:17→21:36)
[2023-03-30] MEDS: PANTOPRAZOLE ORAL SUSPENSION 40 MG SUSPDR.PKT GT SCH (06:17)
[2023-03-30] MEDS: levETIRAcetam 500 MG/5 ML LIQUID UDC GT SCH ×2 (06:17→18:10)
[2023-03-30] MEDS: OMEGA-3 FATTY ACIDS/FISH OIL CAPSULE GT SCH ×2 (06:17→18:10)
[2023-03-30] MEDS: MIDODRINE HCL 5 MG TABLET GT SCH ×3 (06:19→21:35)
[2023-03-30] MEDS: PROTEIN SUPPLEMENT (PROSTAT) 30 ML LIQUID GT SCH ×3 (06:19→21:35)
[2023-03-30] MEDS: ARGININE/GLUTAMINE/CALCIUM BMB 1 EACH POWD.PACK GT SCH ×2 (06:19→18:11)
[2023-03-30] MEDS: ACIDOPHILUS/BULGARICUS CHEW TAB GT SCH ×2 (08:19→21:35)
[2023-03-30] MEDS: ACETAMINOPHEN 650 MG/20.3 ML LIQUID UDC GT SCH ×2 (08:19→21:34)
[2023-03-30] MEDS: SERTRALINE HCL 50 MG TABLET GT SCH (12:07)
[2023-03-30] MEDS: MEDIHONEY= THERAHONEY 1.5 OZ TUBE TOP SCH (14:40)
[2023-03-30] MEDS: VANCOMYCIN IV 1,000 MG in IV DEXTROSE 5% 250 ML IV SCH (15:40)
[2023-03-30] MEDS: SIMVASTATIN 10 MG TABLET GT SCH (21:34)
[2023-03-30] MEDS: MULTIVIT, IRON, MIN NO. 8, FA TABLET GT SCH (21:34)
[2023-03-30] MEDS: ASCORBIC ACID 500 MG TABLET GT SCH (21:35)
[2023-03-30] MEDS: IV 1/2NS 1000 ML 1,000 ML IV PRN (21:40)
[2023-03-31] VITALS (36 sets, daily range): BP systolic 91–123; BP diastolic 31–58; TEMP 97.5–98.7; O2SAT 94–100
[2023-03-31] MEDS: IPRATROPIUM BROMIDE 0.5 MG/2.5 ML NEBU NEB SCH ×7 (00:11→22:40)
[2023-03-31] MEDS: ALBUTEROL SULFATE 2.5 MG/ 0.5 ML NEBU NEB SCH ×7 (00:11→22:40)
[2023-03-31 05:10] LABS: BASOPHILS # (AUTO) 0.1 K/UL (0.0-0.2); BASOPHILS % (AUTO) 0.7 % (0.0-2.0); EOSINOPHILS # (AUTO) 0.3 K/uL (0.0-0.7); EOSINOPHILS % (AUTO) 4.3 % (0.0-7.0); HEMATOCRIT 29.8 % (31.2-41.9); HEMOGLOBIN 9.1 g/dL (10.9-14.3); LYMPHOCYTES # (AUTO) 1.8 K/uL (0.8-4.8); LYMPHOCYTES % (AUTO) 23.8 % (20.5-51.5); MEAN CORPUSCULAR HEMOGLOBIN 25.2 uug (24.7-32.8); MEAN CORPUSCULAR HGB CONC 31 g/dL (32.3-35.6); MEAN CORPUSCULAR VOLUME 82.1 fL (75.5-95.3); MONOCYTES # (AUTO) 0.5 K/uL (0.1-1.30); MONOCYTES % (AUTO) 6.2 % (0.0-11.0); NEUTROPHILS # (AUTO) 4.9 K/uL (1.8-8.9); PLATELET COUNT (AUTO) 134 K/uL (179-408); RED BLOOD CELL COUNT(AUTO) 3.62 MIL/uL (3.63-4.92); RED CELL DISTRIBUTION WIDTH 24.1 % (12.3-17.7); WHITE BLOOD COUNT (AUTO) 7.5 K/uL (3.8-11.8)
[2023-03-31 05:28] LABS: CALCIUM 8.1 mg/dL (8.5-10.1); CREATININE 0.6 mg/dL (0.6-1.3); PHOSPHOROUS 2.8 mg/dL (2.5-4.9); POTASSIUM 3.4 mmol/L (3.5-5.1)
[2023-03-31 05:30] LABS: DIFFERENTIAL COMMENT 1
[2023-03-31] MEDS: PANTOPRAZOLE ORAL SUSPENSION 40 MG SUSPDR.PKT GT SCH (06:52)
[2023-03-31] MEDS: levETIRAcetam 500 MG/5 ML LIQUID UDC GT SCH ×2 (06:52→17:12)
[2023-03-31] MEDS: MEROPENEM 1 G in IV NORMAL SALINE 100 ML IV SCH ×3 (06:52→21:05)
[2023-03-31] MEDS: OMEGA-3 FATTY ACIDS/FISH OIL CAPSULE GT SCH ×2 (06:52→17:13)
[2023-03-31] MEDS: PROTEIN SUPPLEMENT (PROSTAT) 30 ML LIQUID GT SCH ×3 (06:53→21:03)
[2023-03-31] MEDS: MIDODRINE HCL 5 MG TABLET GT SCH ×3 (06:53→20:46)
[2023-03-31] MEDS: ARGININE/GLUTAMINE/CALCIUM BMB 1 EACH POWD.PACK GT SCH ×2 (06:53→17:15)
[2023-03-31] MEDS ORDERED: GENTAMICIN SULFATE INJ 120 MG in IV DEXTROSE 5% 100 ML IV SCH (08:00)
[2023-03-31] MEDS ORDERED: POTASSIUM CHLORIDE 20 MEQ POWDER PACKET GT ONE (08:15)
[2023-03-31] MEDS: ACETAMINOPHEN 650 MG/20.3 ML LIQUID UDC GT SCH ×2 (08:49→20:44)
[2023-03-31] MEDS: ACIDOPHILUS/BULGARICUS CHEW TAB GT SCH ×2 (08:49→20:49)
[2023-03-31] MEDS: APIXABAN 2.5 MG TABLET GT SCH ×2 (08:51→21:02)
[2023-03-31] MEDS: MEDIHONEY= THERAHONEY 1.5 OZ TUBE TOP SCH (08:56)
[2023-03-31] MEDS: SERTRALINE HCL 50 MG TABLET GT SCH (12:25)
[2023-03-31] MEDS: SIMVASTATIN 10 MG TABLET GT SCH (20:45)
[2023-03-31] MEDS: MULTIVIT, IRON, MIN NO. 8, FA TABLET GT SCH (20:49)
[2023-03-31] MEDS: ASCORBIC ACID 500 MG TABLET GT SCH (20:49)
[2023-04-01] VITALS (26 sets, daily range): BP systolic 91–112; BP diastolic 26–61; TEMP 97.7–98.7; O2SAT 98–100
[2023-04-01] MEDS: ALBUTEROL SULFATE 2.5 MG/ 0.5 ML NEBU NEB SCH ×6 (03:36→23:07)
[2023-04-01] MEDS: IPRATROPIUM BROMIDE 0.5 MG/2.5 ML NEBU NEB SCH ×6 (03:36→23:07)
[2023-04-01 05:14] LABS: BASOPHILS % (AUTO) 0.6 % (0.0-2.0); EOSINOPHILS # (AUTO) 0.3 K/uL (0.0-0.7); EOSINOPHILS % (AUTO) 4.5 % (0.0-7.0); HEMATOCRIT 29.2 % (31.2-41.9); HEMOGLOBIN 9.1 g/dL (10.9-14.3); LYMPHOCYTES # (AUTO) 1.8 K/uL (0.8-4.8); LYMPHOCYTES % (AUTO) 24.2 % (20.5-51.5); MEAN CORPUSCULAR HEMOGLOBIN 25.5 uug (24.7-32.8); MEAN CORPUSCULAR HGB CONC 31 g/dL (32.3-35.6); MEAN CORPUSCULAR VOLUME 81.7 fL (75.5-95.3); MONOCYTES # (AUTO) 0.5 K/uL (0.1-1.30); MONOCYTES % (AUTO) 6.9 % (0.0-11.0); NEUTROPHILS # (AUTO) 4.8 K/uL (1.8-8.9); NEUTROPHILS % (AUTO) 63.8 % (38.5-71.5); PLATELET COUNT (AUTO) 179 K/uL (179-408); RED BLOOD CELL COUNT(AUTO) 3.57 MIL/uL (3.63-4.92); RED CELL DISTRIBUTION WIDTH 24.3 % (12.3-17.7); WHITE BLOOD COUNT (AUTO) 7.5 K/uL (3.8-11.8)
[2023-04-01 05:19] LABS: DIFFERENTIAL COMMENT 1
[2023-04-01] MEDS: MEROPENEM 1 G in IV NORMAL SALINE 100 ML IV SCH ×3 (05:20→21:01)
[2023-04-01] MEDS: MIDODRINE HCL 5 MG TABLET GT SCH ×3 (05:21→21:02)
[2023-04-01 05:22] LABS: CREATININE 0.8 mg/dL (0.6-1.3); MAGNESIUM 1.9 mg/dL (1.8-2.4); PHOSPHOROUS 4.3 mg/dL (2.5-4.9)
[2023-04-01] MEDS: levETIRAcetam 500 MG/5 ML LIQUID UDC GT SCH ×2 (05:22→17:05)
[2023-04-01] MEDS: OMEGA-3 FATTY ACIDS/FISH OIL CAPSULE GT SCH ×2 (05:22→17:05)
[2023-04-01] MEDS: PANTOPRAZOLE ORAL SUSPENSION 40 MG SUSPDR.PKT GT SCH (05:22)
[2023-04-01] MEDS: PROTEIN SUPPLEMENT (PROSTAT) 30 ML LIQUID GT SCH ×3 (05:22→21:01)
[2023-04-01] MEDS: ARGININE/GLUTAMINE/CALCIUM BMB 1 EACH POWD.PACK GT SCH ×2 (05:23→17:08)
[2023-04-01 05:28] LABS: CALCIUM 9.1 mg/dL (8.5-10.1)
[2023-04-01] MEDS: ACETAMINOPHEN 650 MG/20.3 ML LIQUID UDC GT SCH ×2 (08:15→20:48)
[2023-04-01] MEDS: ACIDOPHILUS/BULGARICUS CHEW TAB GT SCH ×2 (08:15→20:51)
[2023-04-01] MEDS: APIXABAN 2.5 MG TABLET GT SCH ×2 (08:16→20:58)
[2023-04-01] MEDS: MEDIHONEY= THERAHONEY 1.5 OZ TUBE TOP SCH (08:18)
[2023-04-01 10:29] LABS: ALANINE AMINOTRANSFERASE 14 U/L (14-59); ALBUMIN 1.9 g/dL (3.4-5.0); ALKALINE PHOSPHATASE 88 U/L (50-136); ASPARTATE AMINOTRANSFERASE < 5 U/L (15-37); BILIRUBIN,DIRECT 0.1 mg/dL (0.0-0.2); BILIRUBIN,TOTAL 0.4 mg/dL (0.2-1.0); TOTAL PROTEIN, SERUM 6.2 g/dL (6.4-8.2)
[2023-04-01] MEDS: SERTRALINE HCL 50 MG TABLET GT SCH (12:39)
[2023-04-01] MEDS: MULTIVIT, IRON, MIN NO. 8, FA TABLET GT SCH (20:51)
[2023-04-01] MEDS: SIMVASTATIN 10 MG TABLET GT SCH (20:52)
[2023-04-01] MEDS: ASCORBIC ACID 500 MG TABLET GT SCH (20:52)
[2023-04-02] VITALS (19 sets, daily range): BP systolic 93–109; BP diastolic 42–59; TEMP 97–99.1; O2SAT 98–100
[2023-04-02] MEDS: IPRATROPIUM BROMIDE 0.5 MG/2.5 ML NEBU NEB SCH ×6 (03:01→23:35)
[2023-04-02] MEDS: ALBUTEROL SULFATE 2.5 MG/ 0.5 ML NEBU NEB SCH ×6 (03:01→23:35)
[2023-04-02 04:57] LABS: BASOPHILS # (AUTO) 0.1 K/UL (0.0-0.2); BASOPHILS % (AUTO) 0.8 % (0.0-2.0); EOSINOPHILS # (AUTO) 0.4 K/uL (0.0-0.7); EOSINOPHILS % (AUTO) 4.7 % (0.0-7.0); HEMATOCRIT 30.5 % (31.2-41.9); HEMOGLOBIN 9.5 g/dL (10.9-14.3); LYMPHOCYTES % (AUTO) 26.7 % (20.5-51.5); MEAN CORPUSCULAR HEMOGLOBIN 25.7 uug (24.7-32.8); MEAN CORPUSCULAR HGB CONC 31 g/dL (32.3-35.6); MEAN CORPUSCULAR VOLUME 82.8 fL (75.5-95.3); MONOCYTES # (AUTO) 0.6 K/uL (0.1-1.30); MONOCYTES % (AUTO) 7.3 % (0.0-11.0); NEUTROPHILS # (AUTO) 4.6 K/uL (1.8-8.9); NEUTROPHILS % (AUTO) 60.5 % (38.5-71.5); PLATELET COUNT (AUTO) 199 K/uL (179-408); RED BLOOD CELL COUNT(AUTO) 3.69 MIL/uL (3.63-4.92); RED CELL DISTRIBUTION WIDTH 24.8 % (12.3-17.7); WHITE BLOOD COUNT (AUTO) 7.7 K/uL (3.8-11.8)
[2023-04-02 05:23] LABS: DIFFERENTIAL COMMENT 1
[2023-04-02] MEDS: MEROPENEM 1 G in IV NORMAL SALINE 100 ML IV SCH ×3 (05:23→21:03)
[2023-04-02] MEDS: PANTOPRAZOLE ORAL SUSPENSION 40 MG SUSPDR.PKT GT SCH (05:23)
[2023-04-02] MEDS: levETIRAcetam 500 MG/5 ML LIQUID UDC GT SCH ×2 (05:23→16:55)
[2023-04-02] MEDS: PROTEIN SUPPLEMENT (PROSTAT) 30 ML LIQUID GT SCH ×3 (05:24→21:02)
[2023-04-02] MEDS: MIDODRINE HCL 5 MG TABLET GT SCH ×3 (05:24→21:03)
[2023-04-02] MEDS: ARGININE/GLUTAMINE/CALCIUM BMB 1 EACH POWD.PACK GT SCH ×2 (05:25→16:56)
[2023-04-02] MEDS: OMEGA-3 FATTY ACIDS/FISH OIL CAPSULE GT SCH ×2 (05:25→16:55)
[2023-04-02 05:36] LABS: CALCIUM 9.5 mg/dL (8.5-10.1); CREATININE 0.8 mg/dL (0.6-1.3); MAGNESIUM 2.1 mg/dL (1.8-2.4); PHOSPHOROUS 4.7 mg/dL (2.5-4.9); POTASSIUM 4.2 mmol/L (3.5-5.1)
[2023-04-02] MEDS: ACETAMINOPHEN 650 MG/20.3 ML LIQUID UDC GT SCH ×2 (08:03→20:13)
[2023-04-02] MEDS: ACIDOPHILUS/BULGARICUS CHEW TAB GT SCH ×2 (08:03→20:15)
[2023-04-02] MEDS: MEDIHONEY= THERAHONEY 1.5 OZ TUBE TOP SCH (08:04)
[2023-04-02] MEDS: APIXABAN 2.5 MG TABLET GT SCH ×2 (08:19→20:18)
[2023-04-02] MEDS: SERTRALINE HCL 50 MG TABLET GT SCH (10:30)
[2023-04-02] MEDS ORDERED: ACID1TAB4 GT (17:39)
[2023-04-02] MEDS ORDERED: HYDR-3980 GT (17:39)
[2023-04-02] MEDS ORDERED: MIDO5TAB4 GT (17:39)
[2023-04-02] MEDS ORDERED: LEVE100S GT (17:39)
[2023-04-02] MEDS ORDERED: MERO1VIA23 IV (17:39)
[2023-04-02] MEDS ORDERED: ACET325T53 GT (17:39)
[2023-04-02] MEDS: SIMVASTATIN 10 MG TABLET GT SCH (20:15)
[2023-04-02] MEDS: MULTIVIT, IRON, MIN NO. 8, FA TABLET GT SCH (20:15)
[2023-04-02] MEDS: ASCORBIC ACID 500 MG TABLET GT SCH (20:15)
[2023-04-03] VITALS (9 sets, daily range): BP systolic 93–108; BP diastolic 40–64; TEMP 97.9–98.4; O2SAT 98–100
[2023-04-03] MEDS: ALBUTEROL SULFATE 2.5 MG/ 0.5 ML NEBU NEB SCH ×3 (03:41→11:23)
[2023-04-03] MEDS: IPRATROPIUM BROMIDE 0.5 MG/2.5 ML NEBU NEB SCH ×3 (03:41→11:23)
[2023-04-03] MEDS: PANTOPRAZOLE ORAL SUSPENSION 40 MG SUSPDR.PKT GT SCH (05:12)
[2023-04-03] MEDS: OMEGA-3 FATTY ACIDS/FISH OIL CAPSULE GT SCH (05:12)
[2023-04-03] MEDS: PROTEIN SUPPLEMENT (PROSTAT) 30 ML LIQUID GT SCH (05:12)
[2023-04-03] MEDS: MIDODRINE HCL 5 MG TABLET GT SCH (05:12)
[2023-04-03] MEDS: ARGININE/GLUTAMINE/CALCIUM BMB 1 EACH POWD.PACK GT SCH (05:13)
[2023-04-03] MEDS: levETIRAcetam 500 MG/5 ML LIQUID UDC GT SCH (05:13)
[2023-04-03] MEDS: MEROPENEM 1 G in IV NORMAL SALINE 100 ML IV SCH (05:13)
[2023-04-03] MEDS: ACIDOPHILUS/BULGARICUS CHEW TAB GT SCH (08:40)
[2023-04-03] MEDS: ACETAMINOPHEN 650 MG/20.3 ML LIQUID UDC GT SCH (08:40)
[2023-04-03] MEDS: APIXABAN 2.5 MG TABLET GT SCH (08:41)
[2023-04-03] MEDS: MEDIHONEY= THERAHONEY 1.5 OZ TUBE TOP SCH (08:42)
== END 2023-04-03 11:20 | DRG 871 ==
LOC: ER 13:57 → CCU 17:57 → TELE3 04-03 07:30
PROVIDERS: ADMIT Student in an Organized Health Care Education/Training Program; ATTEND Internal Medicine
DX: A41.9 Sepsis, unspecified organism (principal); E43 Unspecified severe protein-calorie malnutrition; L89.154 Pressure ulcer of sacral region, stage 4; R65.21 Severe sepsis with septic shock; N17.0 Acute kidney failure with tubular necrosis; J69.0 Pneumonitis due to inhalation of food and vomit; G92.8 Other toxic encephalopathy; N39.0 Urinary tract infection, site not specified; J96.11 Chronic respiratory failure with hypoxia; D68.69 Other thrombophilia; E87.0 Hyperosmolality and hypernatremia; N13.6 Pyonephrosis; J98.11 Atelectasis; M86.9 Osteomyelitis, unspecified; D64.9 Anemia, unspecified; D69.6 Thrombocytopenia, unspecified; E78.5 Hyperlipidemia, unspecified; E83.39 Other disorders of phosphorus metabolism; E86.0 Dehydration; E88.09 Other disorders of plasma-protein metabolism, not elsewhere classified; E87.6 Hypokalemia; Z86.73 Personal history of transient ischemic attack (TIA), and cerebral infarction without residual deficits; Z87.442 Personal history of urinary calculi; Z93.0 Tracheostomy status; Z86.15 Personal history of latent tuberculosis infection; Z86.11 Personal history of tuberculosis; Z79.01 Long term (current) use of anticoagulants; Z86.718 Personal history of other venous thrombosis and embolism; Z87.440 Personal history of urinary (tract) infections; Z93.1 Gastrostomy status; R13.10 Dysphagia, unspecified; Z66 Do not resuscitate; F32.A Depression, unspecified; Z90.49 Acquired absence of other specified parts of digestive tract; Z74.09 Other reduced mobility; Z68.22 Body mass index [BMI] 22.0-22.9, adult; E11.69 Type 2 diabetes mellitus with other specified complication; K76.0 Fatty (change of) liver, not elsewhere classified; L89.899 Pressure ulcer of other site, unspecified stage
CPT/HCPCS: 36415; 36600; 70450; 71045; 83605; 83735; 84100; 84443; 84484; 85025; 87040; 93005; 93307; 94640; 94760; 95819; A4606; A4663; A6209; A6213; C1758; C9113; G0378; J0456; J0692; J1580; J1953; J2185; J3370; J3490; J3590; J7040; J7050